=== PATIENT | female | born 1990 | race Caucasian/White ===

== ENCOUNTER 2021-09-04 17:57 | Emergency (ER) | payer OTHER ==
--- OUTSIDE RECORDS SUMMARY | 2021-09-04 18:00 | XMS REPORT | Clinical Summary ---
:1990 Author Organization [facility] MD [facility] Address [address] [place] [address] Care Team Providers Name Role Phone Unavailable Primary Care Provider Unavailable Allergies Not on File Medications Not on file Active Problems Not on file Social History Tobacco Use Types Packs/Day Years Used Date Never Assessed Sex Assigned at Date Recorded Not on file Job Start Date Occupation Industry Not on file Not on file Not on file Last Filed Vital Signs Not on file Plan of Treatment Not on file Results Not on fileafter 09/04/2020 Insurance Payer Benefit Plan / Subscriber ID Effective Phone Address T ype Group Dates [facility] [id number] 2021-[address]y [address] Medicaid HEALTHCARE MEDICAID [place], [place] [employer] [place] [phone] 1980 [address] ([address]) [place] [address] Mallory Gomez Personal/Family Self [birth year] [address] (Home) [place] [address]
--- OUTSIDE RECORDS SUMMARY | 2021-09-04 18:05 | XMS REPORT | Continuity of Care Document ---
:1990 [facility] Organization [facility] t Address [address] [place] [address] Care Team Providers Name Role Phone Rod Dumont MD Primary Care Physician RAMESH FELIX Attending Clinician Unavailable Alexys FELIX Attending Clinician Unavailable Doctor Unassigned, Name Attending Clinician Unavailable CAITLIN Attending Clinician Unavailable Caitlin LEWIS Attending Clinician Tyrese LEWIS Attending Clinician BEKA Attending Clinician Unavailable BEHZAD Attending Clinician Unavailable SUZY JAMIL Attending Clinician Unavailable Ethan JACOBO Attending Clinician Unavailable Curly GONZALEZ Attending Clinician Unavailable Beka LEWIS Attending Clinician An LEWIS, Madeline Attending Clinician ZULEIKA BLANKENSHIP Attending Clinician Unavailable Lorena HUDSON Attending Clinician Unavailable JOHN Attending Clinician Unavailable Alexys Felix MD Attending Clinician DERICK COREA Attending Clinician Unavailable London Chung Attending Clinician Unavailable HE Attending Clinician Unavailable ERNA Attending Clinician Unavailable KALYN Attending Clinician Unavailable RAMESH FELIX Admitting Clinician Unavailable Alexys Sanchez Admitting Clinician Unavailable SUZY JAMIL Admitting Clinician Unavailable Payers Payer Name Policy Type Policy Number Effective Date Expiration Date Curly willams [facility] [id number] 2021 PLAN 00:00:00 MEDICAID - D [id number] 2010 2010 MEDICAID MGD CARE 00:00:00 00:00:00 PRIME [id number] 2012 2019 HMO/POS 00:00:00 00:00:00 BCBS OS [id number] 2013 2019 POS/PPO/EPO 00:00:00 00:00:00 [facility] PLAN [id number] [facility] [id number] 2010 2011 HEALTH CHOICE 00:00:00 00:00:00 ZZZTRICARE - [id number] 2012 2019 PRIME 00:00:00 00:00:00 OUT OF STATE BCBS [id number] - PPO - [facility] [id number] 2012 2019 REGION 00:00:00 00:00:00 Problems Condition Condition Condition Status Onset Resolution Last Treating Co mments Source Name Details Category Date Date Treatment Clinician Date Numbness Numbness Disease Active 2020-05 Unive rs and and 2-29 ity of tingling tingling 00:00: [place] in left in left 00 Medical hand hand Branch Type 1 Type 1 Disease Active [facility] diabetes diabetes 5-12 ity of mellitus mellitus 00:00: [place] with with 00 Medical hypoglycem hypoglycem Br anch ia and ia and without without coma coma Attention Attention Disease Active Uni vers deficit deficit 8-14 it[place] hyperactiv [place] Medical disorder disorder Branch DKA DKA Disease Active [facility] (diabetic (diabetic 8-05 ity of ketoacidos [place]etoacidos [place] es[place] 00 Medical Branch Urinary Urinary Disease Active Univers tract tract 6-23 [place]y of infection[place] site not 00 Medica l specified specified Bran ch Bipolar Bipolar Disease Active [facility] disorder disorder 09-20 Colleg e 00:00: of 00 Medicin e Mental Mental Disease Active Overview: [facility] disorders disorders 09-20 [facility] ol[facility] of mother, of mother, 00:00: g of this of antepartum antepartum 00 note Me dicin might be e different from the original. bipolar disorder Diabetes Diabetes Disease Active [facility] r mellitus, mellitus, 09-17 [facility] ege antepartum antepartum 00:00: of (648.03) (648.03) 00 Medici n e Encounter Encounter Disease Active [facility] 09-17 College long-term long-term 00:00: of (current) (current) 00 Medi margaret use of use of e insulin insulin (HCCode) (HCCode) Painful Painful Disease Active [facility] bladder bladder 09-17 [place] spasm spasm 00:00: of 00 Medicin e Crush Crush Problem Active [facility] injury injury ity of knee, knee, [place] right, right, Physici subsequent subsequent an s encounter encounter Contusion Contusion Problem Active Uni vers of right of right ity of knee, knee, [place] subsequent subsequent Ph ysici encounter encounter ans Right Right Problem Active [facility] 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[place] palsy palsy Physici ans Allergies, Adverse Reactions, Alerts Allergy Allergy Status Severity Reaction(s) Onset Inactive Treating Comm ents Source Name Type Date Date Clinician Insulin Propensi Active Other (See Adverse Ba ylor Lispro ty to Comments) 09-26 reaction Colle ge adverse 00:00: of reaction 00 Medicin s to e drug INSULIN DRUG Active High Other-Cmnt Unive rs LISPRO INGREDI 5-12 ity of 00:00: [place] 00 Medical Branch INSULIN Allergy Active High Other 2020-[address] [facility] [address] [facility]ISPRO 5-12 [facility] Tramadol Propensi Active Hives 2020-0 [facility] ty to 1-12 [place] adverse 00:00: of reaction 00 Medicin s to e drug TRAMADOL DRUG Active High Hives 2020-0 Univers INGREDI 1-12 ity of 00:00: [place] 00 Medical Branch CLINDAMY DRUG Active Med Hives 2020-0 Univers MARGARET INGREDI 1-12 ity of 00:00: [place] 00 Medical Branch Clindamy Drug Active Hives 2020-0 [facility] margaret Allergy 1-12 ity of 00:00: [place] 00 Medical Branch Tramadol Drug Active Hives 2020-0 Univers Allergy 1-12 ity of 00:00: [place] 00 Medical Branch Clindamy Propensi Active Hives 2019- [facility] margaret ty to 2-17 [place] adverse 00:00: of reaction 00 Medicin s to e drug CLINDAMY Allergy Active Med Hives 2019- [facility] MARGARET 2-17 [facility] PENICILL DRUG Active Unknown-Cmnt 2019- Un charmaine IN INGREDI 0-04 ity of 00:00: [place] 00 Medical Branch Penicill Propensi Active Unknown - 2019- Uni vers in ty to See comments 0-04 ity of adverse 00:00: [place] reaction 00 Medical s Branch Ketorola Propensi Active Hives 2020-0 [facility] c-Bupiv- ty to 4-17 [place] Ketamine adverse 00:00: of reaction 00 Medicin s to e drug Toradol Propensi Active 2020-0 [facility] ty to 4-17 [place] adverse 00:00: of reaction 00 Medicin s to e drug Penicill Propensi Active Other (See 2019-0 Ba ylor ins ty to Comments) 4-17 [place] adverse 00:00: of reaction 00 Medicin s to e drug Ketorola Drug Active Hives 2020-0 Univers c Allergy 4-17 ity of 00:00: [place] 00 Medical Branch KETOROLA DRUG Active Med Hives 2020-0 Univers C INGREDI 4-17 ity of 00:00: [place] 00 Medical Branch PENICILL Allergy Active Med Hives 2020-0 [facility] INS 4-17 00:00: 00 KETOROLA Allergy Active Med Hives 2020-0 [facility] C 4-17 00:00: 00 Penicill DA Active U 2020-0 [facility] ins 2-08 Clear 00:00: [place] 00 [facility] clindamy DA Active SV 2020-0 [facility] margaret 2-08 Clear 00:00: [place] 00 [facility] tramadol DA Active RI 2020-0 [facility] 2-08 Clear 00:00: [place] 00 [facility] ondanset DA Active RI 2020-0 [facility] dilia 2-08 Clear 00:00: [place] 00 [facility] Penicill DA Active U SWELLING 2020-0 [facility] ins 2-08 Clear 00:00: [place] 00 [facility] clindamy DA Active SV VOMIT, 2020-0 [facility] margaret HIVES, SOB 2-08 Clear 00:00: [place] 00 [facility] tramadol DA Active RI HIVE 2020-0 [facility] 2-08 Clear 00:00: [place] 00 [facility] ondanset DA Active RI UNKNOWN 2020-0 [facility] dilia 2-08 Clear 00:00: [place] 00 [facility] Penicill DA Active U 2019-0 [facility] ins 5- [place] 00[facility]: e [facility] clindamy DA Active SV 2019-0 [facility] margaret 5- [place] 00:[facility]: e [facility] tramadol DA Active RI 2019-0 [facility] 5-01 [place] 00:[facility]: e 00 [facility] ondanset DA Active RI 2019-0 [facility] dilia 5-01 [place] 00:00: e 00 [facility] Penicill DA Active U SWELLING 2019-0 [facility] ins 5- [place] 00:00: e 00 [facility] clindamy DA Active SV VOMIT, 2019-0 [facility] margaret HIVES, SOB 5- [place] 00:[facility]: e 00 [facility] tramadol DA Active RI HIVE 2019-0 [facility] 5-01 [place] 00:[facility]: e 00 [facility] ondanset DA Active RI UNKNOWN 2019-0 [facility] dilia 5-01 [place] 00:00: e 00 [facility] clindamy DA Active SV 2019-0 [facility] margaret 2-26 [place] 00:00: d 00 [facility] Center tramadol DA Active RI 2019-0 [facility] 2-25 [place] 00:00: d 00 [facility] Penicill DA Active U 2019-0 [facility] ins 2-24 [place] 00:[facility]: d 00 [facility] [place] Propensi Active Itching 2014-0 [place] [facility] ty to 02-05 [place] adverse 00:00: of reaction 00 Medicin s to e drug Benzonat Drug Active Itching 2014-0 Univers ate Allergy 02-05 ity of 00:00: [place] 00 Medical Branch BENZONAT DRUG Active ITCHING 2014-0 Univers ATE INGREDI 02-05 ity of 00:00: [place] 00 Medical Branch BENZONAT Allergy Active Itching 2014-[address] [facility] [address] ATE 02-05 [facility] 00:[facility]: Medical 00 [place] ondanset DA Active RI 2013- [facility] dilia - [place] 00:00: d 00 [facility] ONDANSET DRUG Active Swelling 2013-0 Univer s DILIA HCL 6-11 ity of (PF) 00:00: [place] 00 Medical Branch Ondanset Propensi Active Swelling 2013-0 Univ ers dilia Hcl ty to 6-11 ity of (Pf) adverse 00:00: [place] reaction 00 [facility] Branch Ondanset Propensi Active Swelling 2013-0 [facility] or dilia ty to 5-07 [place] adverse 00:00: of reaction 00 Medicin s to e drug ONDANSET Allergy Active High Anaphylaxis 2013-0 [facility] DILIA HCL 5-07 (PF) 00:00: 00 Social History Social Habit Start Date Stop Date Quantity Comments Source History [facility] ge Alcohol Frequency of FoodyDirect cine History [facility] ge Alcohol Std of Medicine Drinks History [facility] Alcohol Binge of Medicine Exposure to Not sure [facility] e SARS-CoV-2 of Medicine (event) Alcohol intake 2021-02-18 2021-02-18 Current drinker of [facility] 00:00:00 00:00:00 alcohol (finding) of My[facility] Alcohol Comment 2020-07-06 2020-07-06 occassionally [facility] 00:00:00 00:00:00 of Medicine History [facility] 2020-02-19 2020-02-19 5 University o f Financial 00:00:00 00:00:00 [facility] Cigarettes smoked 2010-09-17 2010-09-17 [facility] current (pack per 00:00:00 00:00:00 of [facility] day) - Reported Cigarette 2010-09-17 2010-09-17 [facility] pack-years 00:00:00 00:00:00 of Medicine Tobacco use and 2010-09-17 2010-09-17 User of smokeless Ba or [place] exposure 00:00:00 00:00:00 tobacco of Medicine History of 2010-02-04 Cigarette Smoker [facility] tobacco use 00:00:00 of Medicine Sex Ass[birth year] At [birth year] MD [place] on 00:00:00 00:00:00 Smoking Status Start Date Stop Date Source Current some day 2021-01-19 00:00:00 [facility] smoker Medical Branch Ex-smoker 2010-09-17 00:00:00 2010-09-17 00:00:00 [facility] of Medicine Medications Ordered Filled Start Stop Current Ordering Indication Dosage Frequency Signature Comments Components Source Medication Medication Date Date Medication? Clinician (SIG) Name Name insulin Yes Inject [facility]obardo aspart 2-17 into the College (NOVOLOG) 16:52: skin 3 of 100 UNIT/ML 28 times Medicin injection daily e (before meals). Insulin Yes Inject Leobardo Disposable 2-17 into the [facility] ge Pump 16:52: skin. of (OMNIPOD 5 28 Medicin PACK) MISC e cyclobenzap Yes 10mg Take 1 [facility] or rine 2-17 Tablet by [place] (FLEXERIL) 00:00: mouth 3 of 10 MG 00 times Medicin tablet daily as e needed for Muscle spasms. acetaminoph Yes [id number] 1{tbl} Take 1 [facility] en-codeine 2-17 Tablet by [place] ndiaye (TYLENOL 00:00: mouth of #3) 300-30 00 every 4 Medici n MG per hours as e tablet needed. gabapentin Yes 300mg Take 1 [facility] or (NEURONTIN) 2-17 capsule by Co vanessa 300 MG 00:00: mouth 3 of capsule 00 times Medicin daily as e needed for Pain. insulin Yes [id number] USE WITH Un [place] aspart 2-06 INSULIN ity of RAPID 00:00: PUMP. [facility] (NOVOLOG 00 DAILY DOSE Medic al U-100 OF 80 Branch INSULIN UNITS ASPART) 100 unit/mL injection insulin Yes [id number] USE WITH Un [place] aspart 2-06 INSULIN ity of RAPID 00:00: PUMP. NATALIE [place] (NOVOLOG 00 DAILY DOSE Medic al U-100 OF 80 Branch INSULIN UNITS ASPART) 100 unit/mL injection insulin Yes [id number] USE WITH Un [place] aspart 2-06 INSULIN ity of RAPID 00:00: PUMP. MAX [place] (NOVOLOG 00 DAILY DOSE Medic al U-100 OF 80 Branch INSULIN UNITS ASPART) 100 unit/mL injection insulin Yes [id number] USE WITH Un [place] aspart 2-06 INSULIN ity of RAPID 00:00: PUMP. MAX [place] (NOVOLOG 00 DAILY DOSE Medic al U-100 OF 80 Branch INSULIN UNITS ASPART) 100 unit/mL injection CONTOUR Yes [facility] NEXT TEST 2-03 [place] 00:00: of 00 Medicin e BLISOVI FE Yes [facility] 06/06 [place] MG-MCG per 00:00: of tablet 00 Medicin e cyclobenzap 2021- No 10mg Take 1 [place] yareli rine 06-07 Tablet by [place] (FLEXERIL) 00:00: 00:00 mouth 3 of 10 MG 00 :00 times Medicin tablet daily as e needed for Muscle spasms. gabapentin 2021- No 300mg Take 1 [place] yareli (NEURONTIN) 06-07 capsule by Felecia soliz 300 MG 00:00: 00:00 mouth 3 of capsule 00 :00 times Medicin daily as e needed for Pain. acetaminoph 2021- No [id number] 1{tbl} Take 1 [facility] en-codeine 06-07 Tablet by Col conte (TYLENOL 00:00: 00:00 mouth of #3) 300-30 00 :00 every 4 Medici n MG per hours as e tablet needed. lamotrigine Yes 100mg Take 100 B ayyareli (LAMICTAL) 1-13 mg by [place] 100 MG 00:00: mouth. of tablet 00 Medicin e Insulin 2020-05 Yes inject Univers Pump 2-29 under the ity of Cartridge 13:09: skin. [address] Branch Insulin 2020-05 Yes inject Univers Pump 2-29 under the ity of Cartridge 13:09: skin. [address] Insulin 2021-1 Yes inject Univers Pump 2-29 under the ity of Cartridge 13:09: skin. [address] Insulin 2020-05 Yes inject Univers Pump 2-29 under the ity of Cartridge 13:09: skin. [address] Insulin 2020-05 Yes inject Univers Pump 2-29 under the ity of Cartridge 13:09: skin. [address] Insulin 2020-05 Yes inject Univers Pump 2-29 under the ity of Cartridge 13:09: skin. [address] albuterol 2020-05 Yes [id number] 2{puff} Inhale 2 Univers 90 1-08 Puffs ity of mcg/actuati 00:00: every 4 [place] as on inhaler 00 (four) Medical hours as Branch needed for Wheezing or Shortness of Breath. albuterol 2020-05 Yes [id number] 2{puff} Inhale 2 Univers 90 1-08 Puffs ity of mcg/actuati 00:00: every 4 [place] as on inhaler 00 (four) Medical hours as Branch needed for Wheezing or Shortness of Breath. albuterol 2020-05 Yes [id number] 2{puff} Inhale 2 Univers 90 1-08 Puffs ity of mcg/actuati 00:00: every 4 [place] as on inhaler 00 (four) Medical hours as Branch needed for Wheezing or Shortness of Breath. albuterol 2020-05 Yes [id number] 2{puff} Inhale 2 Univers 90 1-08 Puffs ity of mcg/actuati 00:00: every 4 [place] as on inhaler 00 (four) Medical hours as Branch needed for Wheezing or Shortness of Breath. albuterol 2020-05 Yes [id number] 2{puff} Inhale 2 Univers 90 1-08 Puffs ity of mcg/actuati 00:00: every 4 [place] as on inhaler 00 (four) Medical hours as Branch needed for Wheezing or Shortness of Breath. albuterol 2020-05 Yes [id number] 2{puff} Inhale 2 Univers 90 1-08 Puffs ity of mcg/actuati 00:00: every 4 [place] as on inhaler 00 (four) Medical hours as Branch needed for Wheezing or Shortness of Breath. albuterol 2020-05 Yes 3mL 3 mL. Univers 0.63 mg/3 1-02 ity of mL 11:06: [place] nebulizer 14 Medical solution Branch albuterol 2020-05 Yes 3mL 3 mL. Univers 0.63 mg/3 1-02 ity of mL 11:06: [place] nebulizer Medical solution Branch albuterol 2020-05 Yes 3mL 3 mL. Univers 0.63 mg/3 1-02 ity of mL 11:06: [place] nebulizer Medical solution Branch albuterol 2020-05 Yes 3mL 3 mL. Univers 0.63 mg/3 1-02 ity of mL 11:06: [place] nebulizer Medical solution Branch albuterol 2020-05 Yes 3mL 3 mL. Univers 0.63 mg/3 1-02 ity of mL 11:06: [place] nebulizer Medical solution Branch albuterol 2020-05 Yes 3mL 3 mL. Univers 0.63 mg/3 1-02 ity of mL 11:06: [place] nebulizer Medical solution Branch nicotine 2020-05 Yes [id number] 2mg Apply 1 Un [place] polacrilex 1-02 Each as ity of 2 mg gum 00:00: directed [place] 00 every 2 Medical (two) Branch hours as needed (smoking urge). LOESTRIN FE 2020-05 Yes [id number] 1{tbl} Take 1 Univers 1 mg-20 mcg 1-02 tablet by ity of (21)/75 mg 00:00: mouth [place] (7) tablet 00 daily. Medical Branch nicotine 2020-05 Yes [id number] 2mg Apply 1 Un [place] polacrilex 1-02 Each as ity of 2 mg gum 00:00: directed [place] 00 every 2 Medical (two) Branch hours as needed (smoking urge). LOESTRIN FE 2020-05 Yes [id number] 1{tbl} Take 1 Univers 1 mg-20 mcg 1-02 tablet by ity of (21)/75 mg 00:00: mouth [place] (7) tablet 00 daily. Medical Branch nicotine 2020-05 Yes [id number] 2mg Apply 1 Un [place] polacrilex 1-02 Each as ity of 2 mg gum 00:00: directed [place] 00 every 2 Medical (two) Branch hours as needed (smoking urge). LOESTRIN FE 2020-05 Yes [id number] 1{tbl} Take 1 Univers 1 mg-20 mcg 1-02 tablet by ity of (21)/75 mg 00:00: mouth [place] (7) tablet 00 daily. Medical Branch nicotine 2020-05 Yes [id number] 2mg Apply 1 Un [place] polacrilex 1-02 Each as ity of 2 mg gum 00:00: directed [place] 00 every 2 Medical (two) Branch hours as needed (smoking urge). LOESTRIN FE 2020-05 Yes [id number] 1{tbl} Take 1 Univers 1 mg-20 mcg 1-02 tablet by ity of (21)/75 mg 00:00: mouth [place] (7) tablet 00 daily. Medical Branch nicotine 2020-05 Yes [id number] 2mg Apply 1 [facility] [place] polacrilex 1-02 Each as ity of 2 mg gum 00:00: directed [place] 00 every 2 Medical (two) Branch hours as needed (smoking urge). LOESTRIN FE 2020-05 Yes [id number] 1{tbl} Take 1 Univers 1 mg-20 mcg 1-02 tablet by ity of (21)/75 mg 00:00: mouth [place] (7) tablet 00 daily. Medical Branch nicotine 2020-05 Yes [id number] 2mg Apply 1 [facility] [place] polacrilex 1-02 Each as ity of 2 mg gum 00:00: directed [place] 00 every 2 Medical (two) Branch hours as needed (smoking urge). LOESTRIN FE 2020-05 Yes [id number] 1{tbl} Take 1 Univers 1 mg-20 mcg 1-02 tablet by ity of (21)/75 mg 00:00: mouth [place] (7) tablet 00 daily. Medical Branch insulin 2020-05 Yes Inject [facility] aspart 0-04 into the [facility] (NOVOLOG) 08:59: skin 3 of 100 UNIT/ML 23 times Medicin injection daily e (before meals). insulin 2020-05 Yes Inject [facility] aspart 0-04 into the [place] (NOVOLOG) 08:59: skin 3 of 100 UNIT/ML 23 times Medicin injection daily e (before meals). omeprazole 2020-05 Yes [id number] 40mg Take 1 [facility] (PRILOSEC) 0-04 capsule by Col lege 40 MG 00:00: mouth of capsule 00 every Medicin morning e (before breakfast) . promethazin 2020-05 Yes [id number] 25mg Take 1 [facility] e 0-04 Tablet by [place] (PHENERGAN) 00:00: mouth of 25 MG 00 every 6 Medicin tablet hours as e needed for Nausea. omeprazole 2020-05 Yes [id number] 40mg Take 1 [facility] (PRILOSEC) 0-04 capsule by Col lege 40 MG 00:00: mouth of capsule 00 every Medicin morning e (before breakfast) . promethazin 2020-05 Yes [id number] 25mg Take 1 [facility] e 0-04 Tablet by [place] (PHENERGAN) 00:00: mouth of 25 MG 00 every 6 Medicin tablet hours as e needed for Nausea. omeprazole 2020-05 Yes [id number] 40mg Take 1 [facility] (PRILOSEC) 0-04 capsule by Col lege 40 MG 00:00: mouth of capsule 00 every Medicin morning e (before breakfast) . promethazin 2020-05 Yes [id number] 25mg Take 1 [facility] e 0-04 Tablet by [place] (PHENERGAN) 00:00: mouth of 25 MG 00 every 6 Medicin tablet hours as e needed for Nausea. omeprazole 2020-05 Yes 40mg Take 40 mg U nivers 40 mg 0-04 by mouth. ity of capsule 00:00: [address] omeprazole 2020-05 Yes 40mg Take 40 mg U nivers 40 mg 0-04 by mouth. ity of capsule 00:00: [place] [facility] omeprazole 2020-05 Yes 40mg Take 40 mg U nivers 40 mg 0-04 by mouth. ity of capsule 00:00: [address] omeprazole 2020-05 Yes 40mg Take 40 mg U nivers 40 mg 0-04 by mouth. ity of capsule 00:00: [place] [facility] omeprazole 2020-05 Yes 40mg Take 40 mg U nivers 40 mg 0-04 by mouth. ity of capsule 00:00: [address] omeprazole 2020-05 Yes 40mg Take 40 mg U nivers 40 mg 0-04 by mouth. ity of capsule 00:00: [address] blood sugar 0 Yes [id number] Use as Univers diagnostic 5-12 directed ity o f (CONTOUR 00:00: [place] NEXT TEST 00 Medical STRIPS) Branch strip Blood-Gluco 2020-0 Yes [id number] Use as Univers se Meter 5-12 directed ity of (CONTOUR 00:00: [place] NEXT METER) 00 Medical Misc Branch insulin 2020-0 Yes [id number] Use with Un [place] aspart 5-12 insulin ity of RAPID 00:00: pump. Max [place] (NOVOLOG 00 daily dose Medic al U-100 of 80 Branch INSULIN units ASPART) 100 unit/mL injection blood sugar 2020-0 Yes [id number] Use as Univers diagnostic 5-12 directed ity o f (CONTOUR 00:00: [place] NEXT TEST 00 Medical STRIPS) Branch strip Blood-Gluco 2020-0 Yes [id number] Use as Univers se Meter 5-12 directed ity of (CONTOUR 00:00: [place] NEXT METER) 00 Medical Mis Branch insulin 2020-0 Yes [id number] Use with Un [place] aspart 5-12 insulin ity of RAPID 00:00: pump. Max [place] (NOVOLOG 00 daily dose Medic al U-100 of 80 Branch INSULIN units ASPART) 100 unit/mL injection blood sugar 2020-0 Yes [id number] Use as Univers diagnostic 5-12 directed ity o f (CONTOUR 00:00: [place] NEXT TEST 00 Medical STRIPS) Branch strip Blood-Gluco 2020-0 Yes [id number] Use as Univers se Meter 5-12 directed ity of (CONTOUR 00:00: [place] NEXT METER) 00 Medical Mis Branch blood sugar 2020-0 Yes [id number] Use as Univers diagnostic 5-12 directed ity o f (CONTOUR 00:00: [place] NEXT TEST 00 Medical STRIPS) Branch strip Blood-Gluco 2020-0 Yes [id number] Use as Univers se Meter 5-12 directed ity of (CONTOUR 00:00: [place] NEXT METER) 00 Medical Mis Branch blood sugar 2020-0 Yes [id number] Use as Univers diagnostic 5-12 directed ity o f (CONTOUR 00:00: [place] NEXT TEST 00 Medical STRIPS) Branch strip Blood-Gluco 2020-0 Yes [id number] Use as Univers se Meter 5-12 directed ity of (CONTOUR 00:00: [place] NEXT METER) 00 Medical Misc Branch blood sugar 2020-0 Yes [id number] Use as Univers diagnostic 5-12 directed ity o f (CONTOUR 00:00: [place] NEXT TEST 00 Medical STRIPS) Branch strip Blood-Gluco Yes [id number] Use as Univers se Meter -12 directed ity of (CONTOUR 00:00: [place] NEXT METER) 00 Medical Misc Branch insulin 2021- No [id number] Use with U nivers aspart 12 02-06 insulin ity of RAPID 00:00: 00:00 pump. Max [place] (NOVOLOG 00 :00 daily dose Medic al U-100 of 80 Branch INSULIN units ASPART) 100 unit/mL injection proMETHazin Yes [id number] 25mg Take 1 Univers e 25 mg 4-11 tablet by ity of tablet 00:00: mouth [place] 00 every 6 Medical (six) Branch hours as needed for Nausea and Vomiting (N/V). proMETHazin Yes [id number] 25mg Take 1 Univers e 25 mg 4-11 tablet by ity of tablet 00:00: mouth [place] 00 every 6 Medical (six) Branch hours as needed for Nausea and Vomiting (N/V). proMETHazin Yes [id number] 25mg Take 1 Univers e 25 mg 4-11 tablet by ity of tablet 00:00: mouth [place] 00 every 6 Medical (six) Branch hours as needed for Nausea and Vomiting (N/V). proMETHazin Yes [id number] 25mg Take 1 Univers e 25 mg 4-11 tablet by ity of tablet 00:00: mouth [place] 00 every 6 Medical (six) Branch hours as needed for Nausea and Vomiting (N/V). proMETHazin Yes [id number] 25mg Take 1 Univers e 25 mg 4-11 tablet by ity of tablet 00:00: mouth [place] 00 every 6 Medical (six) Branch hours as needed for Nausea and Vomiting (N/V). proMETHazin Yes [id number] 25mg Take 1 Univers e 25 mg 4-11 tablet by ity of tablet 00:00: mouth [place] 00 every 6 Medical (six) Branch hours as needed for Nausea and Vomiting (N/V). acetaminoph 2021- No 650mg Take 650 [facility] en 325 mg 3-22 03-18 mg by College tablet 00:00: 04:59 mouth. of 00 :00 Medicin e tramadol 2020- No [id number] 1{tbl} Take 1 [facility] (ULTRAM) 50 3-22 10-04 Tablet by Co llege MG tablet 00:00: 00:00 mouth of 00 :00 every 8 Medicin hours as e needed for Pain. tramadol 2020- No [id number] 1{tbl} Take 1 [facility] (ULTRAM) 50 3-22 10-04 Tablet by Co llege MG tablet 00:00: 00:00 mouth of 00 :00 every 8 Medicin hours as e needed for Pain. polyethylen 2020- No [id number] 1{packe Take 1 [facility] e glycol 1-14 01-16 t} Packet by Sathish silva (GLYCOLAX) 00:00: 05:59 mouth as of 17 g packet 00 :00 needed for Me dicin up to 1 e day. acetaminoph Yes [id number] 1{tbl} Take 1 Un [place] en-codeine 1-12 tablet by ity of 300-30 mg 00:00: mouth [place] tablet 00 every 4 Medical (four) Branch hours as needed for Pain (scale 7-10). Indication s: acute pain acetaminoph Yes [id number] 1{tbl} Take 1 Un [place] en-codeine 1-12 tablet by ity of 300-30 mg 00:00: mouth [place] tablet 00 every 4 Medical (four) Branch hours as needed for Pain (scale 7-10). Indication s: acute pain acetaminoph Yes [id number] 1{tbl} Take 1 Un [place] en-codeine 1-12 tablet by ity of 300-30 mg 00:00: mouth [place] tablet 00 every 4 Medical (four) Branch hours as needed for Pain (scale 7-10). Indication s: acute pain acetaminoph Yes [id number] 1{tbl} Take 1 Un [place] en-codeine 1-12 tablet by ity of 300-30 mg 00:00: mouth [place] tablet 00 every 4 Medical (four) Branch hours as needed for Pain (scale 7-10). Indication s: acute pain acetaminoph Yes [id number] 1{tbl} Take 1 Un [place] en-codeine 1-12 tablet by ity of 300-30 mg 00:00: mouth [place] tablet 00 every 4 Medical (four) Branch hours as needed for Pain (scale 7-10). Indication s: acute pain acetaminoph 0 Yes [id number] 1{tbl} Take 1 Un [place] en-codeine 1-12 tablet by ity of 300-30 mg 00:00: mouth [place] tablet 00 every 4 Medical (four) Branch hours as needed for Pain (scale 7-10). Indication s: acute pain Scopolamine 0 Yes [id number] 1{patch Place 1 [facility] 1 MG/3DAYS 1-08 } Patch onto Col [facility]ge [id number] 00:00: the skin of 00 every 3 Medicin days. e cyclobenzap 0 Yes [id number] 5mg Take 1 [facility] rine 1-08 Tablet by [place] (FLEXERIL) 00:00: mouth 3 of 5 MG tablet 00 times Medicin daily as e needed. oxycodone Yes 1{tbl} Take 1-2 [facility] (ROXICODONE 1-08 Tablets by [facility] ) 5 MG 00:00: mouth of immediate 00 every 6 Medicin release hours as e tablet needed for Pain. gabapentin 0 Yes gabapentin U nivers 300 mg 1-07 300 mg ity of capsule 00:00: capsule 00 Take 1 Medical capsule 3 Branch times a day by oral route. gabapentin 0 Yes gabapentin U nivers 300 mg 1-07 300 mg ity of capsule 00:00: capsule 00 Take 1 Medical capsule 3 Branch times a day by oral route. gabapentin 0 Yes gabapentin U nivers 300 mg 1-07 300 mg ity of capsule 00:00: capsule Take 1 Medical capsule 3 Branch times a day by oral route. gabapentin 2020-0 Yes gabapentin U nivers 300 mg 1-07 300 mg ity of capsule 00:00: capsule 00 Take 1 Medical capsule 3 Branch times a day by oral route. gabapentin 2020-0 Yes gabapentin U nivers 300 mg 1-07 300 mg ity of capsule 00:00: capsule 00 Take 1 Medical capsule 3 Branch times a day by oral route. gabapentin 2020-0 Yes gabapentin U nivers 300 mg 1-07 300 mg ity of capsule 00:00: capsule Take 1 Medical capsule 3 Branch times a day by oral route. zolpidem 2019-05 Yes 10mg Take 10 mg [place] [facility] (AMBIEN) 10 2- by mouth. Col [facility] MG tablet 21:07: of 33 Medicin e LAMOTRIGINE 2019- Yes Take by regan OR 2- mouth. [place] 21:07: of 33 Medicin e zolpidem 2019-05 Yes 10mg Take 10 mg [place] [facility] (AMBIEN) 10 2- by mouth. Col [facility] MG tablet 21:07: of 33 Medicin e LAMOTRIGINE 2019-05 Yes Take by Farooq spears OR 2- mouth. [place] 21:07: of 33 Medicin e promethazin 2019-[address] [facility] 06-16 [place] (PHENERGAN) 00:00: of 12.5 MG 00 Medicin tablet e promethazin 2019- Yes [facility] 06-16 [facility] (PHENERGAN) 00:00: of 12.5 MG 00 Medicin tablet e sucralfate 2019- Yes TAKE 1 [facility] (CARAFATE) 1-02 TABLET BY [facility] ege 1 g tablet 00:00: MOUTH 4 of 00 TIMES A Medicin DAY e sucralfate 2019-05 Yes TAKE 1 [facility] (CARAFATE) 1-02 TABLET BY [facility] e[facility] 1 g tablet 00:00: MOUTH 4 of 00 TIMES A Medicin DAY e pantoprazol 2019-05 Yes TAKE 1 [facility] e 0-26 TABLET BY [place] (PROTONIX) 00:00: MOUTH of 40 MG 00 EVERY DAY Medicin tablet 30 MINUTES e BEFORE BREAKFAST OR FIRST MEAL SUPREP 2020-1 Yes See Admin [facility] BOWEL PREP 0-26 Instructio Col [facility]ge KIT 00:00: ns. of 17.5-3.13-1 00 Medicin .6 GM/177ML e SOLN pantoprazol 2020-1 Yes TAKE 1 [facility] e 0-26 TABLET BY [place] (PROTONIX) 00:00: MOUTH of 40 MG 00 EVERY DAY Medicin tablet 30 MINUTES e BEFORE BREAKFAST OR FIRST MEAL SUPREP 2020-1 Yes See Admin Leobardo BOWEL PREP 0-26 Instructio [facility] KIT 00:00: ns. of 17.5-3.13-1 00 Medicin .6 GM/177ML e SOLN promethazin 2020-0 Yes 25mg Take 25 mg [facility] e 7-22 by mouth. [place] (PHENERGAN) 00:00: of 25 MG 00 Medicin tablet e promethazin Yes 25mg Take 25 mg [facility] e 7-22 by mouth. [place] (PHENERGAN) 00:00: of 25 MG 00 Medicin tablet e Acetaminoph Acetaminoph Yes JESSICA TAKE 1 Univers en-Codeine en-Codeine 5-16 MUSCAT TABLET ity of #3 300-30 #3 300-30 00:00: M.D. EVERY 4 TO [place] MG Oral MG Oral 00 6 HOURS Phy sici Tablet Tablet NEEDED FOR ans PAIN. Meloxicam Meloxicam Yes CASSI Ruelas QD TAKE 1 Univers 15 MG Oral 15 MG Oral 6-19 OZOUDE TABLET ity of Tablet Tablet 00:00: M.D. DAILY. [place] 00 Physici ans traMADol traMADol Yes CASSI 1 Q6H TAKE 1 U nivers HCl - 50 MG HCl - 50 MG 6-19 OZOUDE TABLET ity of Oral Tablet Oral Tablet 00:00: M.D. EVERY 6 [place] 00 HOURS Physici ans Butalbital- Yes Take by [facility] APAP-Caffei 5-03 mouth. Sathishg momo ne 14:35: of (FIORICET 37 Medicin OR) e Butalbital- Yes Take by [facility] APAP-Caffei 5-03 mouth. Colleg momo ne 14:35: of (FIORICET 37 Medicin OR) e NITROFURANT Yes Take by [facility] OIN OR 5-03 mouth. [place] 14:24: of 29 Medicin e insulin Yes Inject [facility] aspart 5-03 into the [facility] (NOVOLOG) 14:24: skin 3 of 100 UNIT/ML 29 times Medicin injection daily e (before meals). Yes Take by [facility] Vit-Fe 5-03 mouth. [place] Sulfate-FA 14:24: of ( 29 Medicin VITAMIN PO) e NITROFURANT Yes Take by [facility] OIN OR 5-03 mouth. [place] 14:24: of 29 Medicin e insulin Yes Inject [facility] aspart 5-03 into the [place] (NOVOLOG) 14:24: skin 3 of 100 UNIT/ML 29 times Medicin injection daily e (before meals). Yes Take by [facility] Vit-Fe 5-03 mouth. College Sulfate-FA 14:24: of ( 29 Medicin VITAMIN PO) e Immunizations Ordered Filled Immunization Date Status Comments Sourc e Immunization Name Name Rosendo COVID-19 Rosendo COVID-19 2021-01-10 Completed Vaccine Vaccine 00:00:00 TDAP 2020-08-31 Completed University 00:00:00 [facility] TDAP 2020-08-31 Completed University 00:00:00 [facility] TDAP 2020-08-31 Completed University 00:00:00 [facility] TDAP 2020-08-31 Completed University 00:00:00 [facility] TDAP 2020-08-31 Completed University 00:00:00 [facility] TDAP 2020-08-31 Completed University 00:00:00 [facility] Influenza Virus 2014-02-13 Completed Universit y of Vaccine (3+ yrs) 00:00:00 [facility] Influenza Virus 2014-02-13 Completed Universit y of Vaccine (3+ yrs) 00:00:00 [facility] Influenza Virus 2014-02-13 Completed Universit y of Vaccine (3+ yrs) 00:00:00 [facility] Influenza Virus 2014-02-13 Completed Universit y of Vaccine (3+ yrs) 00:00:00 [facility] Influenza Virus 2014-02-13 Completed Universit y of Vaccine (3+ yrs) 00:00:00 [facility] Influenza Virus 2014-02-13 Completed Universit y of Vaccine (3+ yrs) 00:00:00 [facility] Influenza Virus 2013-06-08 Completed Universit y of Vaccine (3+ yrs) 00:00:00 [facility] Influenza Virus 2013-06-08 Completed Universit y of Vaccine (3+ yrs) 00:00:00 [facility] Influenza Virus 2013-06-08 Completed Universit y of Vaccine (3+ yrs) 00:00:00 [facility] Influenza Virus 2013-06-08 Completed Universit y of Vaccine (3+ yrs) 00:00:00 [facility] Influenza Virus 2013-06-08 Completed Universit y of Vaccine (3+ yrs) 00:00:00 [facility] Influenza Virus 2013-06-08 Completed Universit y of Vaccine (3+ yrs) 00:00:00 [facility] dical Branch Vital Signs Vital Name Observation Time Observation Value Comments Source HEIGHT 2020-08-06 06:30:00 165.1 cm WEIGHT 2020-08-06 06:30:00 59.6 kg HEIGHT 2020-08-03 08:37:00 162.6 cm WEIGHT 2020-08-03 08:37:00 58.06 kg WEIGHT 2020-05-25 05:00:00 59.9 kg HEIGHT 2020-05-23 11:58:00 162.6 cm WEIGHT 2020-05-23 11:58:00 59.875 kg HEIGHT 2020-05-21 09:45:00 162.6 cm WEIGHT 2020-05-21 09:45:00 56.246 kg HEIGHT 2020-05-04 06:45:00 162.6 cm WEIGHT 2020-05-04 06:45:00 59.9 kg HEIGHT 2020-05-03 13:20:00 162.6 cm WEIGHT 2020-05-03 13:20:00 56.246 kg Systolic blood 2021-07-04 22:17:00 127 mm[Hg] [facility] of pressure Medicine Diastolic blood 2021-07-04 22:17:00 81 mm[Hg] [facility] of pressure Medicine Heart rate 2021-07-04 22:17:00 71 /min [facility] ollege of [facility] Body height 2021-07-04 22:17:00 162.6 cm [facility] Body weight 2021-07-04 22:17:00 63.248 kg [facility] BMI 2021-07-04 22:17:00 23.93 kg/m2 [facility] ollege of [facility] HEIGHT 2021-06-07 08:34:00 165.1 cm WEIGHT 2021-06-07 08:34:00 62.2 kg HEIGHT 2021-06-06 11:18:00 165.1 cm WEIGHT 2021-06-06 11:18:00 59.875 kg HEIGHT 2021-06-07 08:34:00 165.1 cm WEIGHT 2021-06-07 08:34:00 62.2 kg HEIGHT 2021-06-06 11:18:00 165.1 cm WEIGHT 2021-06-06 11:18:00 59.875 kg HEIGHT 2021-05-27 21:48:00 165.1 cm WEIGHT 2021-05-27 21:48:00 59.421 kg HEIGHT 2021-05-27 21:48:00 165.1 cm WEIGHT 2021-05-27 21:48:00 59.421 kg Systolic blood 2021-05-15 19:07:00 100 mm[Hg] Univer sity of pressure [facility] Diastolic blood 2021-05-15 19:07:00 63 mm[Hg] Unive rsity of pressure [facility] Heart rate 2021-05-15 19:07:00 72 /min Universi ty of [facility] Body temperature 2021-05-15 19:07:00 36.72 Marleen Univ ersity of [facility] Body height 2021-05-15 19:07:00 167.6 cm Universi ty of [facility] Body weight 2021-05-15 19:07:00 58.605 kg Universi ty of [facility] BMI 2021-05-15 19:07:00 20.85 kg/m2 Universi ty of [facility] Oxygen saturation in 2021-05-15 19:07:00 99 /min University Arterial blood by [facility] Pulse oximetry Branch Systolic blood 2021-02-18 14:00:00 107 mm[Hg] [facility] pressure Medicine Diastolic blood 2021-02-18 14:00:00 72 mm[Hg] [facility] Medicine Heart rate 2021-02-18 14:00:00 75 /min [facility] Respiratory rate 2021-02-18 14:00:00 18 /min [facility] Body height 2021-02-18 14:00:00 165.1 cm [facility] Body weight 2021-02-18 14:00:00 59.875 kg [facility] BMI 2021-02-18 14:00:00 21.97 kg/m2 [facility] of [facility] HEIGHT 2020-08-06 06:30:00 165.1 cm WEIGHT 2020-08-06 06:30:00 59.6 kg HEIGHT 2020-08-03 08:37:00 162.6 cm WEIGHT 2020-08-03 08:37:00 58.06 kg Systolic blood 2020-05-31 19:55:00 105 mm[Hg] [facility] pressure Medicine Diastolic blood 2020-05-31 19:55:00 67 mm[Hg] [facility] Medicine Heart rate 2020-05-31 19:55:00 93 /min [facility] ollege of Medicine Body temperature 2020-05-31 19:55:00 36.78 Marleen [facility] Body height 2020-05-31 19:55:00 162.6 cm [facility] C ollege of Medicine Body weight 2020-05-31 19:55:00 59.875 kg [facility] C ollege of Medicine BMI 2020-05-31 19:55:00 22.66 kg/m2 [facility] C ollege of Medicine Systolic blood 2020-05-31 19:55:00 105 mm[Hg] [facility] pressure Medicine Diastolic blood 2020-05-31 19:55:00 67 mm[Hg] [facility] Medicine Heart rate 2020-05-31 19:55:00 93 /min [facility] ollege of Medicine Body temperature 2020-05-31 19:55:00 36.78 Marleen [facility] Body height 2020-05-31 19:55:00 162.6 cm [facility] C ollege of Medicine Body weight 2020-05-31 19:55:00 59.875 kg [facility] ollege of Medicine BMI 2020-05-31 19:55:00 22.66 kg/m2 [facility] C ollege of Medicine WEIGHT 2020-05-25 05:00:00 59.9 kg HEIGHT 2020-05-23 11:58:00 162.6 cm WEIGHT 2020-05-23 11:58:00 59.875 kg HEIGHT 2020-05-21 09:45:00 162.6 cm WEIGHT 2020-05-21 09:45:00 56.246 kg HEIGHT 2020-05-04 06:45:00 162.6 cm WEIGHT 2020-05-04 06:45:00 59.9 kg HEIGHT 2020-05-03 13:20:00 162.6 cm WEIGHT 2020-05-03 13:20:00 56.246 kg Systolic blood 2020-04-17 21:03:00 110 mm[Hg] [facility] pressure Medicine Diastolic blood 2020-04-17 21:03:00 72 mm[Hg] [facility] pressure Medicine Heart rate 2020-04-17 21:03:00 87 /min [facility] ollege of Medicine Body temperature 2020-04-17 21:03:00 37.28 Marleen [facility] Body height 2020-04-17 21:03:00 162.6 cm [facility] C ollege of Medicine Body weight 2020-04-17 21:03:00 60.328 kg [facility] ollege of Medicine BMI 2020-04-17 21:03:00 22.83 kg/m2 [facility] ollege of Medicine Systolic blood 2020-04-17 21:03:00 110 mm[Hg] [facility] pressure Medicine Diastolic blood 2020-04-17 21:03:00 72 mm[Hg] [facility] Medicine Heart rate 2020-04-17 21:03:00 87 /min [facility] ollege of Medicine Body temperature 2020-04-17 21:03:00 37.28 Marleen [facility] Body height 2020-04-17 21:03:00 162.6 cm [facility] ollege of Medicine Body weight 2020-04-17 21:03:00 60.328 kg [facility] ollege of Medicine BMI 2020-04-17 21:03:00 22.83 kg/m2 [facility] C ollege of Medicine WEIGHT 2019-12-07 00:00:00 58.968 kg HEIGHT 2019-12-07 00:00:00 165.1 cm Procedures Procedure Date / Time Performing Clinician Source Performed MEDICATION CORRESPONDENCE 2021-08-07 05:01:00 Doctor Unassigned, [facility] MEDICATION CORRESPONDENCE 2021-06-23 06:01:00 Doctor Unassigned, [facility] MR Ankle wo contrast 2018-09-30 00:00:00 [facility] [address] Physicians Plan of Care Planned Activity Planned Date Details Comments Source Future Scheduled 2021-07-10 Pneumococcal Combined [facility] Test 14:52:39 (1 of 2 - PPSV23) [code of M edicine = Pneumococcal Combined (1 of 2 - PPSV23)] Future Scheduled 2021-07-10 Diabetic foot [facility] Test 14:52:39 examination of Medicine (regime/therapy) [code = 019237984] Future Scheduled 2021-07-10 ANNUAL DIABETIC [facility] C ollege Test 14:52:39 RETINOPATHY SCREENING of Med icine [code = ANNUAL DIABETIC RETINOPATHY SCREENING] Future Scheduled 2021-07-10 Hepatitis C screening [facility] [employer] Test 14:52:39 (procedure) [code = of Medic ine 830119750] Future Scheduled 2021-07-10 Human immunodeficiency [facility] Test 14:52:39 virus screening of Medicine (procedure) [code = 259699902] Future Scheduled 2021-07-10 Screening for malignant [facility] Test 14:52:39 neoplasm of cervix of Medici ne (procedure) [code = 344880510] Future Scheduled 2021-07-10 FLU VACCINE > 6 MONTHS [facility] [employer] Test 14:52:39 [code = FLU VACCINE > 6 of M edicine MONTHS] Future Scheduled 2021-07-10 COVID-19 Vaccine (2 - [facility] Test 14:52:39 Moderna 3-dose series) of dicine [code = COVID-19 Vaccine (2 - Moderna 3-dose series)] Future Scheduled 2021-07-10 TETANUS SHOT (ADULT) [facility] Test 14:52:39 [code = TETANUS SHOT of Medi cine (ADULT)] Future Scheduled 2021-02-18 Diabetic foot [facility] Test 10:16:35 examination of Medicine (regime/therapy) [code = 414156406] Future Scheduled 2021-02-18 ANNUAL DIABETIC [facility] C ollege Test 10:16:35 RETINOPATHY SCREENING of Med icine [code = ANNUAL DIABETIC RETINOPATHY SCREENING] Future Scheduled 2021-02-18 Hepatitis C screening [facility] [employer] Test 10:16:35 (procedure) [code = of Medic ine 307292400] Future Scheduled 2021-02-18 [facility] Test 10:16:35 virus screening of Medicine (procedure) [code = 694190852] Future Scheduled 2021-02-18 Screening for malignant [facility] Test 10:16:35 neoplasm of cervix of Medici ne (procedure) [code = 618746337] Future Scheduled 2021-02-18 FLU VACCINE > 6 MONTHS [facility] [employer] Test 10:16:35 [code = FLU VACCINE > 6 of M edicine MONTHS] Future Scheduled 2021-02-18 COVID-19 Vaccine (2 - [facility] Test 10:16:35 Moderna 2-dose series) of Me dicine [code = COVID-19 Vaccine (2 - Moderna 2-dose series)] Future Scheduled 2021-02-18 TETANUS SHOT (ADULT) [facility] Test 10:16:35 [code = TETANUS SHOT of Medi cine (ADULT)] Future Scheduled 2021-02-18 Diabetic foot [facility] Col lege Test 10:16:35 examination of Medicine (regime/therapy) [code = 887809173] Future Scheduled 2021-02-18 ANNUAL DIABETIC [facility] C ollege Test 10:16:35 RETINOPATHY SCREENING of Med icine [code = ANNUAL DIABETIC RETINOPATHY SCREENING] Future Scheduled 2021-02-18 Hepatitis C screening [facility] Test 10:16:35 (procedure) [code = of Medic ine 934198134] Future Scheduled 2021-02-18 Human immunodeficiency B [facility] Test 10:16:35 virus screening of Medicine (procedure) [code = 699069387] Future Scheduled 2021-02-18 Screening for malignant [facility] Test 10:16:35 neoplasm of cervix of Medici ne (procedure) [code = 061299672] Future Scheduled 2021-02-18 FLU VACCINE > 6 MONTHS B [facility] Test 10:16:35 [code = FLU VACCINE > 6 of M edicine MONTHS] Future Scheduled 2021-02-18 COVID-19 Vaccine (2 - Ba [facility] Test 10:16:35 Moderna 2-dose series) of Me dicine [code = COVID-19 Vaccine (2 - Moderna 2-dose series)] Future Scheduled 2021-02-18 TETANUS SHOT (ADULT) [facility] Test 10:16:35 [code = TETANUS SHOT of Medi cine (ADULT)] Future Scheduled 2021-02-18 XR ABDOMEN 1 VIEW (KUB) 1 Occurrences [facility] Test 09:27:19 [code = 99600] starting of Medicine 02/18/2021 until 02/18/2022 Future Scheduled 2021-02-18 XR ABDOMEN 1 VIEW (KUB) 1 Occurrences [facility] Test 09:27:19 [code = 19686] starting of Medicine 02/18/2021 until 02/18/2022 Future Scheduled COVID-19 Vaccine [facility] Test Evaluation [code = of Medici ne COVID-19 Vaccine Evaluation] Future Scheduled TETANUS SHOT (ADULT) [facility] [facility] Test [code = TETANUS SHOT of Medi cine (ADULT)] Future Scheduled Diabetic foot [facility] Col [facility]ge Test examination of Medicine (regime/therapy) [code = 447821116] Future Scheduled ANNUAL DIABETIC [facility] C ollege Test RETINOPATHY SCREENING of Med icine [code = ANNUAL DIABETIC RETINOPATHY SCREENING] Future Scheduled HEPATITIS C SCREENING [facility] [employer] Test [code = HEPATITIS C of Medic ine SCREENING] Future Scheduled HIV SCREENING [code = [facility] [employer] Test HIV SCREENING] of Medicine Future Scheduled CERVICAL CANCER [facility] C ollege Test SCREENING 3 YEAR FOLLOW of M edicine UP [code = CERVICAL CANCER SCREENING 3 YEAR FOLLOW UP] Future Scheduled FLU VACCINE > 6 MONTHS [employer] [employer] Test [code = FLU VACCINE > 6 of M edicine MONTHS] Future Scheduled NICOTINE AND COTININE, Ordered: [facility] [employer] [employer] Test LC/MS/MS, SERUM/PLASMA 04/17/2020 of Nv dicine [code = NOCPT] Future Scheduled TETANUS SHOT (ADULT) [facility] [facility] Test [code = TETANUS SHOT of Medi cine (ADULT)] Future Scheduled HEPATITIS C SCREENING [facility] [employer] Test [code = HEPATITIS C of Medic ine SCREENING] Future Scheduled HIV SCREENING [code = [facility] [employer] Test HIV SCREENING] of Medicine Future Scheduled CERVICAL CANCER [facility] C ollege Test SCREENING 3 YEAR FOLLOW of M edicine UP [code = CERVICAL CANCER SCREENING 3 YEAR FOLLOW UP] Future Scheduled FLU VACCINE > 6 MONTHS [employer] Test [code = FLU VACCINE > 6 of M edicine MONTHS] Encounters Start End Encounter Admission Attending Care Care Encounter Source Date/Time Date/Time Type Type Clinicians Facility Department ID 2021-08-20 Outpatient [facility] Surgery [id number] [facility] 15:44:15 MICHEL BOURNE 2021-08-10 Outpatient [facility] [id number] [place] 09:47:50 [facility] 2021-02-23 Outpatient [facility] Surgery [id number] [facility] 06:24:22 MICHEL BOURNE 2021-02-22 Outpatient [facility] Surgery [id number] [facility] 20:20:42 MICHEL BOURNE 2021-02-22 Outpatient [facility] Surgery [id number] [facility] 18:47:36 MICHEL BOURNE 2020-10-14 Inpatient [facility] [id number] [facility] 08:05:00 [id number] [facility] 2019-06-25 Inpatient [facility] RHONDA [id number] [facility] 23:52:00 [id number] [facility] 2016-10-05 Inpatient [facility] [id number] Ann rris 06:39:25 Health 2021-09-03 2021-09-03 Outpatient [facility] [id number] [facility] 13:08:17 13:46:32 MICHEL BOURNE Col lege of Medicin e 2021-08-07 2021-08-07 Orders Doctor ESTRELLA [id number] Univers 00:00:00 00:00:00 Only Unassigned, JYOTI [id number] ity of [place] [facility] [id number] [place] [id number] [facility] 009 Branch 2021-07-04 2021-07-04 Office KOLBY [facility] [id number] [facility] 15:35:09 15:35:09 Visit MICHEL BOURNE AMBULATOR [id number] College Y [id number] of [id number] [facility] 805 e 2021-06-28 2021-06-28 Outpatient R CAITLIN [facility] [id number] Univers 08:45:00 08:45:00 LUIS [id number] ity of [facility] 2021-06-28 2021-06-28 Outpatient R CAITLIN [facility] [id number] Univers 08:45:00 08:45:00 LUIS ity [facility] 2021-06-24 2021-06-24 Telephone Caitlin [facility] [id number] Univers 00:00:00 00:00:00 Luis MULTISPEC [id number] ity [facility] [id number] [facility] [id number] [facility] [place] 220 Branch DIAB[facility]ES [facility] 2021-06-23 2021-06-23 Orders Doctor ESTRELLA [id number] Univers 00:00:00 00:00:00 Only Unassigned, JYOTI [id number] ity of [place] [facility] [id number] Perico as [id number] [facility] [address] [place] 2021-06-22 2021-06-[address] [facility] 1.2.840.114 [id number] Univers 00:00:00 00:00:00 Luis MULTISPEC 350.1.13.10 ity of IALTY 4.2.7.2.686 [facility] REM[facility]ANDT [id number] [facility] AND DAVIS [address] [place] [facility] 2021-06-18 2021-06-18 Telephone JinCharlieMathew, [facility] 1.2.840.114 [id number] Univers 00:00:00 00:00:00 [facility] 350.1.13.10 it y of FAMILY 4.2.7.2.686 [facility] [id number] Med ical RASHID 044 [facility] 2021-06-12 2021-06-12 Outpatient Jeanna IRELAND [facility] [id number] Univers 14:15:00 14:15:00 NILESH [facility] 2021-06-07 2021-06-08 Outpatient DIANA LAWSKYFORESTWilber [facility] [id number] SLE 08:18:00 00:55:00 MICHEL BOURNE 2021-06-07 2021-06-07 Outpatient [facility] [id number] [facility] 08:18:00 23:59:00 Jame Medicin e 2021-06-07 2021-06-07 Outpatient Jeanna WEN [facility] [id number]-20 Univers 08:30:00 08:30:00 TYRELL [id number] [facility] 2021-06-07 2021-06-07 Outpatient Jeanna WEN [facility] [id number] Univers 08:30:00 08:30:00 TYRELL [facility] 2021-06-06 2021-06-06 Outpatient DIANA LAWSKYFORESTWilber [facility] [id number] SLE 15:15:16 23:59:00 MICHEL BOURNE 2021-06-06 2021-06-06 Outpatient EL KOLBY [facility] SLE [id number] SLE 11:33:26 14:59:00 MICHEL BOURNE 2021-06-06 2021-06-06 Outpatient KOLBY [facility] [id number] [facility] 10:47:58 10:54:19 MICHEL BOURNE Col lege of Medicin e 2021-05-27 2021-05-30 Inpatient ER KASSIE JAMIL [facility] Emergency [id number] [facility] 22:08:00 14:46:00 2021-05-28 2021-05-28 Outpatient R [facility] [id number] Univers 08:20:00 08:20:00 [id number] [facility] 2021-05-28 2021-05-28 Outpatient R DONNELL DALLIN [facility] [id number] Univers 08:20:00 08:20:00 [facility] 2021-05-27 2021-05-27 Outpatient [facility] [id number] [facility] 22:08:00 23:59:00 Colleg e of Medicin e 2021-05-24 2021-05-24 Outpatient R [facility] [id number] Univers 11:20:00 11:20:00 [id number] [facility] 2021-05-24 2021-05-24 Outpatient R DONNELL DALLIN [facility] [id number] Univers 11:20:00 11:20:00 [facility] 2021-05-15 2021-05-15 Office Beka [facility] 1.2.840.114 [id number] Univers 13:00:00 14:15:23 Visit Nilesh SPECIALTY 350.1.13.10 ity of CARE 4.2.7.2.686 [facility] AT [id number] [address] 2021-02-18 2021-02-18 Office SURYA Nolan 1.2.840.114 [id number] [facility] 08:55:39 09:25:39 Visit Jeevan [facility]UL[facility].1.13.21 [facility] 0.2.7.2.686 of [id number] Medi margaret 325 e 2021-01-10 2021-01-10 Outpatient GCCOVIDV GCCOVIDV [id number] GCCOVID 00:00:00 00:00:00 V 2020-12-27 2020-12-27 Emergency E [facility] [id number] 13:56:00 15:14:00 [facility] 2020-10-04 2020-10-04 Emergency [facility] 17:16:00 19:19:00 [facility] 2020-09-26 2020-09-26 Telephone Edilsonrosalie [facility] 1.2.840.114 [id number] 00:00:00 00:00:00 Luis MULTISPEC 350.1.13.10 IALTY 4.2.7.2.686 CENTER [id number] [facility] 2020-09-23 2020-09-23 Emergency E [id number] 16:17:00 19:59:00 , [facility]ADELYN [facility] 2020-08-06 2020-08-06 Outpatient SLEH [facility] [id number] [facility] 00:00:00 00:00:00 2020-08-03 2020-08-03 Outpatient EL [facility]H [facility] [id number] [facility] 00:00:00 00:00:00 2020-08-03 2020-08-03 Outpatient EL [facility]H [facility] [id number] [facility] 00:00:00 00:00:00 2020-05-31 2020-05-31 Office [facility] [facility] 1.2.840.114 [id number] [facility] 13:12:23 14:52:05 Visit es, Mihcel AMBULATOR 350.1.13.21 College G Y 0.2.7.2.686 of [id number] Medi margaret 800 e 2020-05-31 2020-05-31 Office [place] [facility] 1.2.840.114 [id number] 13:12:23 14:52:05 Visit es, Michel AMBULATOR 350.1.13.21 G Y 0.2.7.2.686 [id number] 2020-05-21 2020-05-21 Outpatient EL SLE [facility]H [id number] [facility]H 00:00:00 00:00:00 2020-05-03 2020-05-03 Outpatient EL SLEH [facility] [id number] [facility] 00:00:00 00:00:00 2020-04-17 2020-04-17 Office Carey-Staci [facility] 1.2.840.114 [id number] [facility] 14:43:25 16:24:07 Visit es, Michel AMBULATOR 350.1.13.21 College G Y 0.2.7.2.686 of [id number] [facility] 800 e 2020-04-17 2020-04-17 Office Carey-Staci [facility] 1.2.840.114 [id number] 14:43:25 16:24:07 Visit es, Michel AMBULATOR 350.1.13.21 G Y 0.2.7.2.686 [id number] [facility] 2019-12-07 2019-12-07 Emergency ER LYTWYN, SL Emergency [id number] [facility] 22:33:00 22:33:00 [facility] 2019-09-02 2019-09-02 Emergency [facility] [id number] [facility] 16:28:00 16:28:00 [id number] 2019-06-26 2019-06-26 Outpatient TANGELA Chung BK [id number] 60-2 [facility] 07:29:00 07:29:00 [place] [id number] [facility] 2018-09-30 2018-11-19 [facility] [id number] 13:45:00 14:49:23 2018-09-30 2018-09-30 Appointmen ROWAN CUTLER [facility] [id number] Univers 13:45:00 13:45:00 t; JESSICA CUTLER - [place] ity of JOSEPH, M.D. [place] M[facility]. [facility] ans 2018-08-03 2018-08-03 Appointmen ROWAN UMANZOR [id number] Univers 09:50:00 09:50:00 t; [place] UMANZOR it y of MATTHEW, M.D. [place] M.[facility]. [facility] ans 2018-02-15 2018-02-15 Appointmadisyn MCCAIN [facility] UTP [id number] Univers 09:15:00 09:15:00 t; CASSI MCCAIN ity of GEORGE, M.D. [place] [facility] 2017-11-16 2017-11-16 AppointROWAN Billy UTP [id number] Univers 10:15:00 10:15:00 t; CASSI MCCAIN ity of GEORGE, M.D. [place] M.[facility]. [facility]ici ans 2017-11-02 2017-11-02 AppointROWAN Billy UTP [id number] Univers 10:30:00 10:30:00 t; CASSI MCCAIN ity of GEORGE, M.D. [place] M.D. Physici ans 2016-10-05 2016-10-05 Emergency [facility] [id number] [place] 00:27:03 00:27:03 Health 2016-10-04 2016-10-04 Inpatient [facility] [id number] [place] 23:14:22 23:14:22 Health Results Test Description Test Time Test Comments Results Result Comments Source TISSUE EXAM 2021-06-10 Surgical Pathology 08:37:32 Report Case: [id number] Authorizing Provider: Michel Felix Collected: 06/07/2021 03:04 PM MD Ramesh Ordering Location: [facility] PERIOPERATIVE Received: 06/10/2021 06:31 AM SERVICES Pathologist: Napoleon Bach MD Specimen: Hardware, GASTRIC LEADS FOR ID ONLY NEUROSURGICAL HARDWARE, REMOVAL: -LEADS IDENTIFIED (GROSS ONLY) Signing Pathologist Direct Phone Line: [phone] majo signed by Napoleon Bach MD on 06/10/2021 at 8:37 [id number], pacemaker failureGastric neurostimulatorA. Received fresh labeled with the patient's name, medical record number and "hardware" are 2 leads measuring 31 cm and 20.5 cm in length, each 0.1 cm in diameter. A longer lead is inscribed with "[id number]," and the shorter lead is inscribed with"[id number]." Also received in the same container are 4 white plastic-like clips each measuring 0.9 x 0.2 x 0.1 cm and 2 circular translucent, rubbery object each measuring 1.3 cm in diameter and 0.2 cm in height. A gross photograph is taken. No sections are submitted-gross only.DEXTER Nix, SAMIR ([facility])David performed POCT-GLUCOSE METER 2021-06-07 23:54:11 Test Item Value Reference Range Interpretation Comme nts POC-GLUCOSE METER ([facility]) 306 mg/dL 70-110 H : TESTED AT [address] (test code = 1538) [facility] X, [address]: Telephone Quotation Clerk/Techni vanessa ID = [id number] for Nay Cross na POCT-GLUCOSE [id number] 23:07:41 Test Item Value Reference Range Interpretation Comments POC-GLUCOSE METER 378 mg/dL 70-110 H : TESTED A [place] [address] ([facility]) (test code = [facility], 153) [address]: Telephone Quotation Clerk/Techni vanessa ID = [id number] for Yoli Mckeon POCT-GLUCOSE [id number] 22:07:24 Test Item Value Reference Range Interpretation Comments POC-GLUCOSE METER 332 mg/dL 70-110 H : TESTED A [place] [address] ([facility]) (test code = [facility], 153) [address]: Telephone Quotation Clerk/Techni vanessa ID = [id number] for Yoli Mckeon POCT-GLUCOSE [id number] 20:03:45 Test Item Value Reference Range Interpretation Comments POC-GLUCOSE METER 438 mg/dL 70-110 HH : Notified RN/MD: ([facility]) (test code = TESTED AT [place] [address] 153) [facility], [address]: Telephone Quotation Clerk/Techni vanessa ID = [id number] for Divina lebronSarahanelon POCT-GLUCOSE [id number] 19:40:54 Test Item Value Reference Range Interpretation Comments POC-GLUCOSE METER 403 mg/dL 70-110 HH : Notified RN/MD: ([facility]) (test code = TESTED AT [place] [address] 153) [facility], [address]851: Telephone Quotation Clerk/Techni vanessa ID = [id number] for Da vis, Emili POCT-GLUCOSE [id number] 18:35:36 Test Item Value Reference Range Interpretation Comments POC-GLUCOSE METER 384 mg/dL 70-110 H : TESTED A T [facility] 6720 ([facility]) (test code = [facility], 1538) [address]: Telephone Quotation Clerk/Techni vanessa ID = [id number] for KENNA SIDHU POCT-GLUCOSE [id number] 16:51:42 Test Item Value Reference Range Interpretation Comments POC-GLUCOSE METER 196 mg/dL 70-110 H : Notified RN/MD: TESTED ([facility]) ([facility] [place] = 1538) [facility], 770 30: Telephone Quotation Clerk/Techni vanessa ID = [id number] for Bang Jorgensen POCT-GLUCOSE [id number] 15:42:33 Test Item Value Reference Range Interpretation Comments POC-GLUCOSE METER 203 mg/dL 70-110 H : [facility] ([facility]) (test code = [facility], 1538) [address]: Telephone Quotation Clerk/Techni vanessa ID = [id number] for EPHRAIM TRAN POCT-GLUCOSE [id number] 14:15:49 Test Item Value Reference Range Interpretation Comments POC-GLUCOSE METER 243 mg/dL 70-110 H : [facility] ([facility]) (test code = [facility], 1538) 75250: Telephone Quotation Clerk/Techni vanessa ID = [id number] for CL ELENA, MARIAM POCT-GLUCOSE [id number] 11:20:58 Test Item Value Reference Range Interpretation Comments POC-GLUCOSE METER 197 mg/dL 70-110 H : TESTED A T [facility] ([facility]) (test code = [facility], 1538) 11704: Telephone Quotation Clerk/Techni vanessa ID = [id number] for RA Y, ALTON POCT-GLUCOSE [id number] 09:12:56 Test Item Value Reference Range Interpretation Comments POC-GLUCOSE METER 227 mg/dL 70-110 H : TESTED A T [facility] ([facility]) (test code = [facility], 1538) 47283: Telephone Quotation Clerk/Techni vanessa ID = [id number] for TOVA HILL SARS-COV2/RT-PCR ([facility])2021-06-06 22:37:21 Test Item Value Reference Range Interpretation Comments SARS-COV2/RT-PCR (test Negative Not Detected, Negative, code = 1309065) See external report for linked test SARS-COV-2 PERFORMING LAB [facility] (test code = 6593017) Negative result for this test determines that SARS-CoV-2 RNA was not present in the specimen above the Limit of Detection (LOD). However, Negative results do not preclude SARS-CoV-2 infection and should not be used as the sole basis for treatment or patient management decisions. Negative results mustbe combined with clinical observations, patient history, and epidemiological information. A false negative result may occur if a specimen is improperly collected, transported or handled. A false negative result should be considered if patient's recent exposures or clinical presentation indicate that COVID-19 (SARS-CoV-2) is likely and diagnostic tests for other causes of illness are negative. Re-testing should be considered in cases of suspected false negatives.The limit of detection for this assay is 800 copies/mL.This SARS CoV-2 test is a real-time RT-PCR test intended for the qualitative detection of nucleic acid from SARS-CoV-2 in a nasopharyngeal swab specimen collected from individuals susp ected of COVID-19 by their healthcare provider.This test has not been Food and Drug Administration (FDA) cleared or approved. This is a modified version of an approved Emergency Use Authorization (EUA) and is in the process of review by the FDA. Once authorized by the FDA, the issued EUA will be effective until the declaration that circumstances exist justifying the authorization of the emergency use of in vitro diagnostic tests for detection and/or diagnosis of COVID-19 is terminated under Section 564(b)(2) of the Act or the EUA is revoked under Section 564(g) of the Act.Fact Sheet for Healthcare Providers:https://www.quidel.com/sites/default/files/product/documents/Fact_Shee i_QX_Fcuigroiv_Mdmg_BHJJ-NlO-9.pdfFact Sheet for Healthcare Patients:https://www.Iridian Technologiesidel.com/sites/default/files/product/ documents/Vxew_Jwfwr_Civcfxen_Idmt_RUQB-CkS-9.pdfPerforming Laboratory:[place] [address] [address].[place], [place] [address]GINZ-NTPXCZC METER 2021-05-30 11:42:07 Test Item Value Reference Range Interpretation Comments POC-GLUCOSE METER 269 mg/dL 70-110 H : Notified RN/MD: ([facility]) (test code = TESTED AT [facility] 6720 1538) [facility], [address]: Telephone Quotation Clerk/Techni vanessa ID = [id number] for ALINA TRUJILLO POCT-GLUCOSE [id number] 09:01:21 Test Item Value Reference Range Interpretation Comments POC-GLUCOSE METER 94 mg/dL 70-110 : [facility] ([facility] = [facility], 1538) [address]: Telephone Quotation Clerk/Techni vanessa ID = [id number] for PROD SOWMYA JURADO POCT-GLUCOSE [id number] 07:51:25 Test Item Value Reference Range Interpretation Comments POC-GLUCOSE METER 75 mg/dL 70-110 : TESTED A T [facility] 6720 [facility] (test code [facility], = 1538) [address]: Telephone Quotation Clerk/Techni vanessa ID = [id number] for GARC MEME HALE BASIC METABOLIC [id number] 07:25:52 Test Item Value Reference Range Interpretation Comments SODIUM (BEAKER) 138 meq/L 136-145 (test code = 381) POTASSIUM (BEAKER) 4.1 meq/L 3.5-5.1 (test code = 379) CHLORIDE (BEAKER) 105 meq/L 98-107 (test code = 382) CO2 (BEAKER) (test 28 meq/L 22-29 code = 355) BLOOD UREA NITROGEN 7 mg/dL 7-21 (BEAKER) (test code = 354) CREATININE (BEAKER) 0.74 mg/dL 0.57-1.25 (test code = 358) GLUCOSE RANDOM 72 mg/dL 70-105 (BEAKER) (test code = 652) CALCIUM (BEAKER) 9.4 mg/dL 8.4-10.2 (test code = 697) EGFR (BEAKER) (test 92 mL/min/1.73 ESTIMA OWEN GFR IS code = 1092) sq m NOT ACCURATE CREATININE CLEARANCE IN PREDICTING GLOMERULAR FILTRATION RATE . ESTIMATED GFR I S NOT APPLICABLE FOR DIALYSIS PATIEN TS. Telephone Quotation Clerk ID - [id number] GCBC W/PLT COUNT & AUTO [id number] 07:16:43 Test Item Value Reference Range Interpretation Comments WHITE BLOOD CELL COUNT (BEAKER) 7.0 K/ L 3.5-10.5 (test code = 775) RED BLOOD CELL COUNT (BEAKER) 4.00 M/ L 3.93-5.22 (test code = 761) HEMOGLOBIN (BEAKER) (test code = 13.5 GM/DL 11.2-15.7 410) HEMATOCRIT (BEAKER) (test code = 41.5 % 34.1-44.9 411) MEAN CORPUSCULAR VOLUME (BEAKER) 103.8 fL 79.4-94.8 H (test code = 753) MEAN CORPUSCULAR HEMOGLOBIN 33.8 pg 25.6-32.2 H (BEAKER) (test code = 751) MEAN CORPUSCULAR HEMOGLOBIN CONC 32.5 GM/DL 32.2-35.5 (BEAKER) (test code = 752) RED CELL DISTRIBUTION WIDTH 11.6 % 11.7-14.4 L (BEAKER) (test code = 412) PLATELET COUNT (BEAKER) (test 274 K/CU MM 150-450 code = 756) MEAN PLATELET VOLUME (BEAKER) 10.2 fL 9.4-12.3 (test code = 754) NUCLEATED RED BLOOD CELLS 0 /100 WBC 0-0 (BEAKER) (test code = 413) NEUTROPHILS RELATIVE PERCENT 38 % (BEAKER) (test code = 429) LYMPHOCYTES RELATIVE PERCENT 43 % (BEAKER) (test code = 430) MONOCYTES RELATIVE PERCENT 7 % (BEAKER) (test code = 431) EOSINOPHILS RELATIVE PERCENT 11 % (BEAKER) (test code = 432) BASOPHILS RELATIVE PERCENT 1 % (BEAKER) (test code = 437) NEUTROPHILS ABSOLUTE COUNT 2.69 K/ L 1.56-6.13 (BEAKER) (test code = 670) LYMPHOCYTES ABSOLUTE COUNT 3.02 K/ L 1.18-3.74 (BEAKER) (test code = 414) MONOCYTES ABSOLUTE COUNT (BEAKER) 0.48 K/ L 0.24-0.36 H (test code = 415) EOSINOPHILS ABSOLUTE COUNT 0.75 K/ L 0.04-0.36 H (BEAKER) (test code = 416) BASOPHILS ABSOLUTE COUNT (BEAKER) 0.08 K/ L 0.01-0.08 (test code = 417) IMMATURE GRANULOCYTES-RELATIVE 0 % 0-1 PERCENT (BEAKER) (test code = 2801) POCT-GLUCOSE [id number] 21:01:16 Test Item Value Reference Range Interpretation Comments POC-GLUCOSE METER 149 mg/dL 70-110 H : TESTED A T [facility] 6720 (BEAKER) (test code = [facility], 1538) [address]: Telephone Quotation Clerk/Techni vanessa ID = [id number] for Se Rosas POCT-GLUCOSE [id number] 18:06:01 Test Item Value Reference Range Interpretation Comments POC-GLUCOSE METER 177 mg/dL 70-110 H : TESTED A T [facility] 6720 (BEAKER) (test code [facility], = 1538) 859[address]: Telephone Quotation Clerk/Techni vanessa ID = [id number] for Abdoul (contract), Leticia dgette POCT-GLUCOSE [id number] 15:27:09 Test Item Value Reference Range Interpretation Comments POC-GLUCOSE METER 181 mg/dL 70-110 H : TESTED A T [facility] 6720 (BEAKER) (test code [facility], = 1538) 68184: Telephone Quotation Clerk/Techni vanessa ID = [id number] for Abdoul (contract), Leticia dgette POCT-GLUCOSE [id number] 12:50:35 Test Item Value Reference Range Interpretation Comments POC-GLUCOSE METER 141 mg/dL 70-110 H : TESTED A T [facility] 6720 (BEAKER) (test code [facility], = 1538) 96387: Telephone Quotation Clerk/Techni vanessa ID = [id number] for Abdoul (contract), Leticia dgette POCT-GLUCOSE [id number] 10:20:50 Test Item Value Reference Range Interpretation Comments POC-GLUCOSE METER 110 mg/dL 70-110 : TESTED A T [facility] 6720 (BEAKER) (test code = [facility], 1538) 368[address]: Telephone Quotation Clerk/Techni vanessa ID = [id number] for CIERA AGUILLON POCT-GLUCOSE [id number] 08:26:47 Test Item Value Reference Range Interpretation Comments POC-GLUCOSE METER 84 mg/dL 70-110 : TESTED A T [facility] 6720 (BEAKER) (test code = [facility] [place], 1538) 79[address]: Telephone Quotation Clerk/Techni vanessa ID = [id number] for Abdoul (contract)Leticia CBC W/PLT COUNT & AUTO [id number] 07:49:52 Test Item Value Reference Range Interpretation Comments WHITE BLOOD CELL COUNT 9.2 K/ L 3.5-10.5 (BEAKER) (test code = 775) RED BLOOD CELL COUNT 4.05 M/ L 3.93-5.22 (BEAKER) (test code = 761) HEMOGLOBIN (BEAKER) 13.7 GM/DL 11.2-15.7 (test code = 410) HEMATOCRIT (BEAKER) 42.8 % 34.1-44.9 (test code = 411) MEAN CORPUSCULAR 105.7 fL 79.4-94.8 H Discordant results VOLUME (BEAKER) (test compar ed to code = 753) previous, clini basil correlation required. MEAN CORPUSCULAR 33.8 pg 25.6-32.2 H HEMOGLOBIN (BEAKER) (test code = 751) MEAN CORPUSCULAR 32.0 GM/DL 32.2-35.5 L HEMOGLOBIN CONC (BEAKER) (test code = 752) RED CELL DISTRIBUTION 11.9 % 11.7-14.4 WIDTH (BEAKER) (test code = 412) PLATELET COUNT 286 K/CU MM 150-450 (BEAKER) (test code = 756) MEAN PLATELET VOLUME 10.2 fL 9.4-12.3 (BEAKER) (test code = 754) NUCLEATED RED BLOOD 0 /100 WBC 0-0 CELLS (BEAKER) (test code = 413) NEUTROPHILS RELATIVE 38 % PERCENT (BEAKER) (test code = 429) LYMPHOCYTES RELATIVE 43 % PERCENT (BEAKER) (test code = 430) MONOCYTES RELATIVE 9 % PERCENT (BEAKER) (test code = 431) EOSINOPHILS RELATIVE 9 % PERCENT (BEAKER) (test code = 432) BASOPHILS RELATIVE 1 % PERCENT (BEAKER) (test code = 437) NEUTROPHILS ABSOLUTE 3.48 K/ L 1.56-6.13 COUNT (BEAKER) (test code = 670) LYMPHOCYTES ABSOLUTE 3.95 K/ L 1.18-3.74 H COUNT (BEAKER) (test code = 414) MONOCYTES ABSOLUTE 0.82 K/ L 0.24-0.36 H COUNT (BEAKER) (test code = 415) EOSINOPHILS ABSOLUTE 0.80 K/ L 0.04-0.36 H COUNT (BEAKER) (test code = 416) BASOPHILS ABSOLUTE 0.10 K/ L 0.01-0.08 H COUNT (BEAKER) (test code = 417) IMMATURE 0 % 0-1 GRANULOCYTES-RELATIVE PERCENT (BEAKER) (test code = 2801) BASIC METABOLIC [id number] 06:03:42 Test Item Value Reference Range Interpretation Comments SODIUM (BEAKER) 139 meq/L 136-145 (test code = 381) POTASSIUM (BEAKER) 5.1 meq/L 3.5-5.1 Specimen slightly (test code = 379) hemolyzed CHLORIDE (BEAKER) 111 meq/L 98-107 H (test code = 382) CO2 (BEAKER) (test 22 meq/L 22-29 code = 355) BLOOD UREA NITROGEN 8 mg/dL 7-21 (BEAKER) (test code = 354) CREATININE (BEAKER) 0.79 mg/dL 0.57-1.25 Specimen slightly (test code = 358) hemolyzed GLUCOSE RANDOM 184 mg/dL 70-105 H (BEAKER) (test code = 652) CALCIUM (BEAKER) 8.6 mg/dL 8.4-10.2 (test code = 697) EGFR (BEAKER) (test 85 mL/min/1.73 ESTIMA OWEN GFR IS code = 1092) sq m NOT ACCURATE CREATININE CLEARANCE IN PREDICTING GLOMERULAR FILTRATION RATE . ESTIMATED GFR I S NOT APPLICABLE FOR DIALYSIS PATIEN TS. Telephone Quotation Clerk ID - PIAYA LPOCT-GLUCOSE [id number] 21:41:52 Test Item Value Reference Range Interpretation Comments POC-GLUCOSE METER 235 mg/dL 70-110 H : TESTED A T [facility] 6720 (BEAKER) (test code = [facility], 1538) 469[address]: Telephone Quotation Clerk/Techni vanessa ID = [id number] for JULIANNA ZBIGNIEW POCT-GLUCOSE [id number] 20:52:01 Test Item Value Reference Range Interpretation Comments POC-GLUCOSE METER 142 mg/dL 70-110 H : TESTED A T [facility] 6720 (BEAKER) (test code = [facility], 1538) [address]28[address]: Telephone Quotation Clerk/Techni vanessa ID = [id number] for ZULEIKA DENISE POCT-GLUCOSE [id number] 18:44:03 Test Item Value Reference Range Interpretation Comments POC-GLUCOSE METER 81 mg/dL 70-110 : TESTED A [place] [id number] ([facility]) (test code = [facility], 1538) [address]: Telephone Quotation Clerk/Techni vanessa ID = [id number] for Maximiliano Cohenia POCT-GLUCOSE [id number] 12:02:23 Test Item Value Reference Range Interpretation Comments POC-GLUCOSE METER 133 mg/dL 70-110 H : TESTED A T [facility] 6720 ([facility]) (test code = [facility], 1538) 86115: Telephone Quotation Clerk/Techni vanessa ID = [id number] for Sunni Castrejon POCT-GLUCOSE [id number] 11:25:55 Test Item Value Reference Range Interpretation Comments POC-GLUCOSE METER 181 mg/dL 70-110 H : Notified RN/MD: ([facility]) (test code = TESTED AT [place] [address] 1538) [facility], [address]: Telephone Quotation Clerk/Techni vanessa ID = [id number] for Sh fabi (contract)Raffy POCT-GLUCOSE [id number] 11:04:29 Test Item Value Reference Range Interpretation Comments POC-GLUCOSE METER 29 mg/dL 70-110 LL : Notified RN/MD: TESTED ([facility]) (test code = AT [facility] [address] [place] [address]) [facility], 770 30: Telephone Quotation Clerk/Techni vanessa ID = [id number] for Wilton alfonso, Sunni RAD, ABDOMEN, 2 [id number] 09:13:00AP and lateralReason for exam:- >pacemaker evaluation [facility] 1990 Sex: FFINAL REPORT RAD, ABDOMEN, 2 VIEWS CLINICAL INDICATION: pacemaker evaluation COMPARISON: 05/28/2021 TECHNIQUE: Single, frontal radiograph of the abdomen. FINDINGS:Generator with abandoned leads overlies the left mid abdomen. The bowel gas pattern is nonspecific, butnonobstructive. Large stool burden. Correlation for constipation is recommended. Evaluation for free air is limited by portable supine technique. Within these limitations, no free air is identified. Signed: Lisa Edge Verified Date/Time: 05/28/2021 09:13:49 Reading Location: [facility] Radiology Reading Room POCT-GLUCOSE METER 2021-05-28 06:21:54 Test Item Value Reference Range Interpretation Comments POC-GLUCOSE METER 96 mg/dL 70-110 : TESTED A T [facility] 6720 (Vusion) (test code = [facility], 1538) 31686: Telephone Quotation Clerk/Techni vanessa ID = [id number] for Nguy en, Tram POCT-GLUCOSE [id number] 05:49:58 Test Item Value Reference Range Interpretation Comments POC-GLUCOSE METER 69 mg/dL 70-110 L : TESTED A T [facility] 6720 (BEAKER) (test code = [place] [employer] [facility], 1538) 71741: Telephone Quotation Clerk/Techni vanessa ID = [id number] for Nguy en, Tram RAD, ABDOMEN/KUB, 1 VIEW [id number] 04:20:00Reason for exam:->eval of gastric stimulator placement [facility] 1990 Sex: FFINAL REPORT CLINICAL HISTORY: Evaluation of gastric stimulator shaunna cement COMPARISON: 08/06/2020 FINDINGS: 2 supine images of the abdomen are submitted. A stimulator generator overlying the left mid abdomen has its leads extending to the left upper quadrant, with the leads terminating over the gastric bubble. The abdominal bowel gas pattern is normal. Surgical clips ov erlie the right upper quadrant. There is no acute bony abnormality. Signed: Angela James MDReport Verified Date/Time: 05/28/2021 04:20:10 -COV2/RT-PCR ([facility])2021-05-28 03:25:38 Test Item Value Reference Range Interpretation Comments SARS-COV2/RT-PCR Negative Negative The SARS-Co V-2 target (test code = nucleic acids a re not 7912211) detected in thi s specimen. Negative result s do not preclude SARS-C oV-2 infection and s hould not be used as the mally e basis for patient managem ent decisions. Nega tive results must be combine d with clinical observ ations, patient history , and epidemiological information. A false negativ e result may occur if a spec imen is improperly curtis ected, transported or handled. This SARS CoV-2 test is a rapid, real-pili e RT-PCR test intended for th e qualitative detection of nu cleic acid from SARS-CoV-2 in a nasopharyngeal swab specimen collected from individuals suspected of CO VID-19 by their healthcar e provider. This test has been authorized by FDA under an EUA for use by authorized laboratories. This test is only authorized for the duration of the declaration that circumstances exist justifying the authorization of emergency use of in vitro diagnostic tests for detection and/or diagnosis of COVID-19 under Section 564(b)(1) of the Federal Food, Drug and Cosmetic Act, 21 U.S.C. 360bbb- 3(b)(1), unless the authorization is terminated or revoked sooner. Fact Sheet for Healthcare Providers: https://www.cephe id.[employer]ili[employer]/Documents/Xpert%20Xpress%20SARS%20CoV-2/Fact%20Sheets/302-3802%20SARS-COV -2%20HEALTHCARE%20PROVIDERS%20FACT%20SHEET.pdf Fact Sheet for Healthcare Patients: https://www.[employer]/Documents/Xpert %20Xpress%20SARS%20CoV-2/Fact%20Sheets/302-3801%22GZHT-BOG-7%20PATIENT%20FACT%20 SHEET.pdfHCG, QUANTITATIVE, [id number] 03:05:29 Test Item Value Reference Range Interpretation Comments GONADOTROPIN, CHORIONIC (HCG) QUANT < mIU/mL 0-10 (BEAKER) (test code = 649) Non- Females: <10 mIU/mL Females: Gestation Age Reference Range(mIU/mL) 0.2-1 Week 5-50 1-2 Weeks 50-500 2-3 Weeks 100-5,000 3-4Weeks 500-10,000 4-5 Weeks 1,000-50,000 5-6 Weeks 10,000-100,000 6-8 Weeks 15,000-200,000 2-3 Months 10,000-100,000 Telephone Quotation Clerk ID - PIAYA L BASIC METABOLIC [id number] 02:45:30 Test Item Value Reference Range Interpretation Comments SODIUM (BEAKER) 138 meq/L 136-145 (test code = 381) POTASSIUM (BEAKER) 4.2 meq/L 3.5-5.1 (test code = 379) CHLORIDE (BEAKER) 101 meq/L 98-107 (test code = 382) CO2 (BEAKER) (test 29 meq/L 22-29 code = 355) BLOOD UREA NITROGEN 10 mg/dL 7-21 (BEAKER) (test code = 354) CREATININE (BEAKER) 0.94 mg/dL 0.57-1.25 (test code = 358) GLUCOSE RANDOM 161 mg/dL 70-105 H (BEAKER) (test code = 652) CALCIUM (BEAKER) 10.4 mg/dL 8.4-10.2 H (test code = 697) EGFR (BEAKER) (test 70 mL/min/1.73 ESTIMA OWEN GFR IS code = 1092) sq m NOT ACCURATE CREATININE CLEARANCE IN PREDICTING GLOMERULAR FILTRATION RATE . ESTIMATED GFR I S NOT APPLICABLE FOR DIALYSIS PATIEN TS. Telephone Quotation Clerk ID - KATRINA MCBC W/PLT COUNT & AUTO [id number] 02:34:45 Test Item Value Reference Range Interpretation Comments WHITE BLOOD CELL COUNT (BEAKER) 8.3 K/ L 3.5-10.5 (test code = 775) RED BLOOD CELL COUNT (BEAKER) 4.44 M/ L 3.93-5.22 (test code = 761) HEMOGLOBIN (BEAKER) (test code = 14.7 GM/DL 11.2-15.7 410) HEMATOCRIT (BEAKER) (test code = 44.4 % 34.1-44.9 411) MEAN CORPUSCULAR VOLUME (BEAKER) 100.0 fL 79.4-94.8 H (test code = 753) MEAN CORPUSCULAR HEMOGLOBIN 33.1 pg 25.6-32.2 H (BEAKER) (test code = 751) MEAN CORPUSCULAR HEMOGLOBIN CONC 33.1 GM/DL 32.2-35.5 (BEAKER) (test code = 752) RED CELL DISTRIBUTION WIDTH 11.7 % 11.7-14.4 (BEAKER) (test code = 412) PLATELET COUNT (BEAKER) (test 355 K/CU MM 150-450 code = 756) MEAN PLATELET VOLUME (BEAKER) 10.5 fL 9.4-12.3 (test code = 754) NUCLEATED RED BLOOD CELLS 0 /100 WBC 0-0 (BEAKER) (test code = 413) NEUTROPHILS RELATIVE PERCENT 44 % (BEAKER) (test code = 429) LYMPHOCYTES RELATIVE PERCENT 41 % (BEAKER) (test code = 430) MONOCYTES RELATIVE PERCENT 7 % (BEAKER) (test code = 431) EOSINOPHILS RELATIVE PERCENT 7 % (BEAKER) (test code = 432) BASOPHILS RELATIVE PERCENT 1 % (BEAKER) (test code = 437) NEUTROPHILS ABSOLUTE COUNT 3.61 K/ L 1.56-6.13 (BEAKER) (test code = 670) LYMPHOCYTES ABSOLUTE COUNT 3.40 K/ L 1.18-3.74 (BEAKER) (test code = 414) MONOCYTES ABSOLUTE COUNT (BEAKER) 0.55 K/ L 0.24-0.36 H (test code = 415) EOSINOPHILS ABSOLUTE COUNT 0.60 K/ L 0.04-0.36 H (BEAKER) (test code = 416) BASOPHILS ABSOLUTE COUNT (BEAKER) 0.10 K/ L 0.01-0.08 H (test code = 417) IMMATURE GRANULOCYTES-RELATIVE 0 % 0-1 PERCENT (BEAKER) (test code = 2801) UA RFLX MICR CULT IF [id number] 09:43:00 Test Item Value Reference Range Interpretation Comments UA COLOR (test code = COLU) AMELIA YEL/STRAW A UA APPEARANCE (test code = SL CLOUDY CLEAR APPU) UA GLUCOSE DIPSTICK (test code NEGATIVE NEGATIVE = DGLUU) UA BILIRUBIN DIPSTICK (test NEGATIVE NEGATIVE code = BILU) UA KETONE DIPSTICK (test code 2+ NEGATIVE A = KETU) UA SPECIFIC GRAVITY (test code 1.030 1.005-1.030 N = SGU) UA BLOOD DIPSTICK (test code = NEGATIVE NEGATIVE MELI) UA PH DIPSTICK (test code = 6.0 5.0-7.0 N BARBARA) UA PROTEIN DIPSTICK (test code 1+ NEGATIVE A = PROU) UA UROBILINIOGEN DIPSTICK 2.0 mg/dL 0.2-1.0 A (test code = URO) UA NITRITE DIPSTICK (test code NEGATIVE NEGATIVE = YARI) UA LEUKOCYTE ESTERASE DIPSTICK NEGATIVE NEGATIVE (test code = LEUU) UA WBC (test code = WBCU) 0-3 WBC/HPF 0-3 UA RBC (test code = RBCU) 0-3 RBC/HPF 0-3 UA WBC NO REFLEX (test code = 0-3 WBC/HPF 0-3 WBCUCL) UA BACTERIA (test code = BACU) NONE SEEN /HPF NONE SEEN UA SQUAMOUS CELLS (test code = 0-5 /HPF NONE SEEN SQU) UA HYALINE CAST (test code = 3-5 /LPF NONE SEEN HYALU) UA MUCUS (test code = MUCU) 4+ /LPF NONE SEEN A Indication for culture: Dysuria/FrequencySpecimen Description: CLEAN CATCH- XR ABD ACUTE [id number] 09:20:00 [facility] 1990 Sex: F FAX: Felton Barreto [phone] [place]: St: REG FAX: Fabienne Rosales MD [phone] Name: PAVEL FRANCO [facility] : 1990Age/S: [address] [place] [address] Blvd Unit #: [id number] Loc: [place] [address] Phys: Fabienne Rivera MD Acct: [id number] Dis Date: Status: REG ER PHONE #:[phone] Exam Date: 10/14/2020903 FAX #: [phone] Reason: acute abd pain EXAMS: CPT CODE: [id number] XR ABD ACUTE W/CHEST 17214 Flat and upright abdomen with single view chest 10/14/2020 HISTORY: Acute abdominal pain Comparison is made to CT 06/26/2019 FINDINGS: In the chest, the lungs are clear. Heart size and mediastinal vessels are normal. No free air under the hemidiaphragm is noted. In the abdomen, surgical clips in the right upper quadrant are present. Battery pack overlying the left abdomen is noted. No acute bony abnormality is present. No dilated bowel loops are present. No air-fluid levels are identified. IMPRESSION: 1. No acute process within chest. 2. Nonobstructed bowel gas pattern. SL: [id number] at 0920 Reported and signed by: Timothy Alves M.D. CC: Felton Sanchez M.D.; Fabienne Rivera MD Technologist: Licha Taylor,RT(R); Annmarie Chung RT(R) Trnscrd Date/Time/By: 10/14/2020 (919) : By: [email or web address] Orig Print D/T: S: 10/14/2020 (7116) PAGE 1 Signed ReportBASIC METABOLIC [id number] 08:51:00 Test Item Value Reference Range Interpretation Comments SODIUM (test code = NA) 138 mEq/L 134-147 N POTASSIUM (test code = 4.0 mEq/L 3.4-5.0 N K) CHLORIDE (test code = 108 mEq/L 100-108 N CL) CARBON DIOXIDE (test 20 mEq/l 21-33 L code = CO2) ANION GAP (test code = 14 0-20 N GAP) GLUCOSE (test code = 113 mg/dL 70-110 H GLU) BLOOD UREA NITROGEN 11 mg/dL 7-18 N (test code = BUN) GLOMERULAR FILTRATION 98.3 105-110 L Units of measure = RATE (test code = GFR) ml/mi n/1.73 m2 CREATININE (test code = 0.7 mg/dL 0.6-1.3 N CREAT) CALCIUM (test code = 9.8 mg/dL 8.0-10.5 N CA) HEPATIC FUNCTION [id number] 08:51:00 Test Item Value Reference Range Interpretation Comments TOTAL PROTEIN (test code = PROT) 7.9 g/dL 6.4-8.2 N ALBUMIN (test code = ALB) 4.70 g/dL 3.4-5.0 N BILIRUBIN TOTAL (test code = BILT) 1.10 mg/dL 0.0-1.0 H BILIRUBIN DIRECT (test code = 0.40 MG/DL 0.0-0.30 H BILD) BILIRUBIN INDIRECT (test code = 0.70 MG/DL BILIND) SGOT/AST (test code = AST) 22 IUnit/L 15-37 N SGPT/ALT (test code = ALT) 15 IUnit/L 30-65 L ALKALINE PHOSPHATASE TOTAL (test 66 IUnit/L 20-125 N code = ALKP) [id number] 08:51:00 Test Item Value Reference Range Interpretation Comments LIPASE (test code = LIP) 24 U/L 13-57 N [id number] 08:51:00 Test Item Value Reference Range Interpretation Comments MAGNESIUM (test code = MAG) 1.93 mg/dL 1.80-2.40 N HCG SERUM [id number] 08:51:00 Test Item Value Reference Range Interpretation Comments HCG SERUM QUAL (test code = SERUM NEGATIVE NEGATIVE HCGQL) BASIC METABOLIC [id number] 08:45:00 Test Item Value Reference Range Interpretation Comments SODIUM (test code = NA) mEq/L 134-147 POTASSIUM (test code = K) mEq/L 3.4-5.0 CHLORIDE (test code = CL) mEq/L 100-108 CARBON DIOXIDE (test code = CO2) mEq/l 21-33 ANION GAP (test code = GAP) 0-20 GLUCOSE (test code = GLU) mg/dL 70-110 BLOOD UREA NITROGEN (test code = BUN) mg/dL 7-18 GLOMERULAR FILTRATION RATE (test code 105-110 = GFR) CREATININE (test code = CREAT) mg/dL 0.6-1.3 CALCIUM (test code = CA) mg/dL 8.0-10.5 HEPATIC FUNCTION [id number] 08:45:00 Test Item Value Reference Range Interpretation Comments TOTAL PROTEIN (test code = PROT) g/dL 6.4-8.2 ALBUMIN (test code = ALB) g/dL 3.4-5.0 BILIRUBIN TOTAL (test code = BILT) mg/dL 0.0-1.0 BILIRUBIN DIRECT (test code = BILD) MG/DL 0.0-0.30 SGOT/AST (test code = AST) IUnit/L 15-37 SGPT/ALT (test code = ALT) IUnit/L 30-65 ALKALINE PHOSPHATASE TOTAL (test IUnit/L 20-125 code = ALKP) [id number] 08:45:00 Test Item Value Reference Range Interpretation Comments LIPASE (test code = LIP) U/L 13-57 [id number] 08:45:00 Test Item Value Reference Range Interpretation Comments MAGNESIUM (test code = MAG) mg/dL 1.80-2.40 HCG SERUM [id number] 08:45:00 Test Item Value Reference Range Interpretation Comments HCG SERUM QUAL (test code = SERUM NEGATIVE NEGATIVE HCGQL) CBC W/O [id number] 08:37:00 Test Item Value Reference Range Interpretation Comments WHITE BLOOD CELL (test code = 8.4 x10 3/uL 4.5-11.0 N WBC) RED BLOOD CELL (test code = 4.34 x10 6/uL 3.54-5.02 N RBC) HEMOGLOBIN (test code = HGB) 14.9 g/dL 11.0-15.0 N HEMATOCRIT (test code = HCT) 43.2 % 33.0-45.0 N MEAN CELL VOLUME (test code = 99.5 fL 81.0-99.0 H MCV) MEAN CELL HGB (test code = MCH) 34.3 pg 27.0-33.0 H MEAN CELL HGB CONCETRATION 34.5 g/dL 33.0-37.0 N (test code = MCHC) RED CELL DISTRIBUTION WIDTH CV 12.6 % 11.5-14.5 N (test code = RDW) RED CELL DISTRIBUTION WIDTH SD 46.3 fL 37.0-54.0 N (test code = RDW-SD) PLATELET COUNT (test code = 349 x10 3/uL 150-400 N PLT) MEAN PLATELET VOLUME (test code 10.5 fL 7.0-9.0 H = MPV) [id number] 08:24:00 Test Item Value Reference Range Interpretation Comments GLUBED (test code = 112 MG/DL 70-110 H Performe d by certified GLUBED) 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 There are right upper quadrant surgical clips. The bowel gas pattern is nonspecific. Free air and air-fluid levels are not definitively seen, but also cannot be excluded on the supine view. Signed: Zuleika Tran MDReport Verified Date/Time: 08/07/19 15:46:53 Reading Location: [facility] Radiology Reading Room POCT- GLUCOSE [id number] 11:09:00 Test Item Value Reference Range Interpretation Comments POC-GLUCOSE METER 269 mg/dL 70-110 H : TESTED A T [facility] 6720 (BEAKER) (test code = [facility], 1538) 14416: Telephone Quotation Clerk/Techni vanessa ID = [id number] for JENIFER JIN POCT-GLUCOSE [id number] 09:16:00 Test Item Value Reference Range Interpretation Comments POC-GLUCOSE METER 220 mg/dL 70-110 H : TESTED A T [facility] 6720 (BEAKER) (test code [facility], = 1538) 21522: Telephone Quotation Clerk/Techni vanessa ID = [id number] for KALI ZKEENAN BASIC METABOLIC [id number] 08:28:00 Test Item Value Reference Range Interpretation Comments SODIUM (BEAKER) 135 meq/L 136-145 L (test code = 381) POTASSIUM (BEAKER) 4.6 meq/L 3.5-5.1 (test code = 379) CHLORIDE (BEAKER) 105 meq/L 98-107 (test code = 382) CO2 (BEAKER) (test 20 meq/L 22-29 L code = 355) BLOOD UREA NITROGEN 12 mg/dL 7-21 (BEAKER) (test code = 354) CREATININE (BEAKER) 0.72 mg/dL 0.57-1.25 (test code = 358) GLUCOSE RANDOM 140 mg/dL 70-105 H (BEAKER) (test code = 652) CALCIUM (BEAKER) 9.5 mg/dL 8.4-10.2 (test code = 697) EGFR (BEAKER) (test 95 mL/min/1.73 ESTIMA OWEN GFR IS code = 1092) sq m NOT ACCURATE CREATININE CLEARANCE IN PREDICTING GLOMERULAR FILTRATION RATE . ESTIMATED GFR I S NOT APPLICABLE FOR DIALYSIS PATIEN TS. Telephone Quotation Clerk ID - [id number] W/PLT COUNT & AUTO [id number] 08:02:00 Test Item Value Reference Range Interpretation Comments WHITE BLOOD CELL COUNT (BEAKER) 8.5 K/ L 3.5-10.5 (test code = 775) RED BLOOD CELL COUNT (BEAKER) 3.95 M/ L 3.93-5.22 (test code = 761) HEMOGLOBIN (BEAKER) (test code = 12.9 GM/DL 11.2-15.7 410) HEMATOCRIT (BEAKER) (test code = 38.3 % 34.1-44.9 411) MEAN CORPUSCULAR VOLUME (BEAKER) 97.0 fL 79.4-94.8 H (test code = 753) MEAN CORPUSCULAR HEMOGLOBIN 32.7 pg 25.6-32.2 H (BEAKER) (test code = 751) MEAN CORPUSCULAR HEMOGLOBIN CONC 33.7 GM/DL 32.2-35.5 (BEAKER) (test code = 752) RED CELL DISTRIBUTION WIDTH 12.8 % 11.7-14.4 (BEAKER) (test code = 412) PLATELET COUNT (BEAKER) (test 274 K/CU MM 150-450 code = 756) MEAN PLATELET VOLUME (BEAKER) 10.1 fL 9.4-12.3 (test code = 754) NUCLEATED RED BLOOD CELLS 0 /100 WBC 0-0 (BEAKER) (test code = 413) NEUTROPHILS RELATIVE PERCENT 57 % (BEAKER) (test code = 429) LYMPHOCYTES RELATIVE PERCENT 26 % (BEAKER) (test code = 430) MONOCYTES RELATIVE PERCENT 8 % (BEAKER) (test code = 431) EOSINOPHILS RELATIVE PERCENT 8 % (BEAKER) (test code = 432) BASOPHILS RELATIVE PERCENT 1 % (BEAKER) (test code = 437) NEUTROPHILS ABSOLUTE COUNT 4.79 K/ L 1.56-6.13 (BEAKER) (test code = 670) LYMPHOCYTES ABSOLUTE COUNT 2.21 K/ L 1.18-3.74 (BEAKER) (test code = 414) MONOCYTES ABSOLUTE COUNT (BEAKER) 0.71 K/ L 0.24-0.36 H (test code = 415) EOSINOPHILS ABSOLUTE COUNT 0.65 K/ L 0.04-0.36 H (BEAKER) (test code = 416) BASOPHILS ABSOLUTE COUNT (BEAKER) 0.09 K/ L 0.01-0.08 H (test code = 417) IMMATURE GRANULOCYTES-RELATIVE 0 % 0-1 PERCENT (BEAKER) (test code = 2801) POCT-GLUCOSE [id number] 07:05:00 Test Item Value Reference Range Interpretation Comments POC-GLUCOSE METER 116 mg/dL 70-110 H : TESTED A [facility] 6720 ([facility]) (test code = [facility], 1537) 08253: Telephone Quotation Clerk/Techni vanessa ID = [id number] for Mehnaz Ross POCT-GLUCOSE [id number] 06:46:00 Test Item Value Reference Range Interpretation Comments POC-GLUCOSE METER 30 mg/dL 70-110 LL : TESTED A [facility] 6720 ([facility]) (test code = [facility], 153) 40784: Telephone Quotation Clerk/Techni vanessa ID = [id number] for CHAUNCEY WINTER POCT-GLUCOSE [id number] 06:37:00 Test Item Value Reference Range Interpretation Comments POC-GLUCOSE METER 35 mg/dL 70-110 LL : Verify w / Lab Draw: ([facility]) (test code = Will Jeanna epeat Test: TESTED 1537) AT [facility] [address] [place] [address], 770 30: Telephone Quotation Clerk/Techni vanessa ID = [id number] for CHAUNCEY WINTER SARS-COV2/RT-PCR ([facility])2020-08-04 02:30:00 Test Item Value Reference Range Interpretation Comments SARS-COV2/RT-PCR (test Negative Not Detected, Negative, code = 1066810) See external report for linked test SARS-COV-2 PERFORMING LAB [facility] (test code = 2450274) Negative result for this test determines that SARS-CoV-2 RNA was not present in the specimen above the Limit of Detection (LOD). However, Negative results do not preclude SARS-CoV-2 infection and should not be used as the sole basis for treatment or patient management decisions. Negative results mustbe combined with clinical observations, patient history, and epidemiological information. A false negative result may occur if a specimen is improperly collected, transported or handled. A false negative result should be considered if patient's recent exposures or clinical presentation indicate that COVID-19 (SARS-CoV-2) is likely and diagnostic tests for other causes of illness are negative. Re-testing should be considered in cases of suspected false negatives.The limit of detection for this assay is 100 copies/mL.This SARS CoV-2 test is a real-time RT-PCR test intended for the qualitative detection of nucleic acid from SARS-CoV-2 in a nasopharyngeal swab specimen collected from individuals susp ected of COVID-19 by their healthcare provider.This test has not been Food and Drug Administration (FDA) cleared or approved. This is a modified version of an approved Emergency Use Authorization (EUA) and is in the process of review by the FDA. Once authorized by the FDA, the issued EUA will be effective until the declaration that circumstances exist justifying the authorization of the emergency use of in vitro diagnostic tests for detection and/or diagnosis of COVID-19 is terminated under Section 564(b)(2) of the Act or the EUA is revoked under Section 564(g) of the Act.Testing was performed using the Cheng SARS-CoV-2 assay.Fact Sheet for Healthcare Providers:https://www.molecular.cheng/navdeep/ ZR_OVPG-NvL-4_WMU_Oykw_Rdtfd_51-412558.pdfFact Sheet for Healthcare Patients:https://www.molecular.ab tobias/navdeep/QG_OEKH-CuC-5_Ncqtyim_Cryp_Kaucc_PI_98-474279T7.pdfPerforming Laboratory:[facility] [place] [address] MISCELLANEOUS LAB [id number] 08:19:00 Test Item Value Reference Range Interpretation Comments SCAN RESULT (test code = 1070791) POCT-GLUCOSE [id number] 07:49:00 Test Item Value Reference Range Interpretation Comments POC-GLUCOSE METER 104 mg/dL 70-110 : TESTED A T [facility] 6720 (CASS) (test code = ABEBE Meeks [facility], 153) 11076: Telephone Quotation Clerk/Techni vanessa ID = [id number] for BEVERLY BRANDON [id number] 05:21:00 Test Item Value Reference Range Interpretation Comments MAGNESIUM (BEAKER) 2.2 mg/dL 1.6-2.6 Specimen moderately (test code = 627) hemolyzed Telephone Quotation Clerk ID - [id number] 05:21:00 Test Item Value Reference Range Interpretation Comments PHOSPHORUS (BEAKER) 3.6 mg/dL 2.3-4.7 Specimen moderately (test code = 604) hemolyzed Telephone Quotation Clerk ID - EDASIBASIC METABOLIC [id number] 05:21:00 Test Item Value Reference Range Interpretation Comments SODIUM (BEAKER) 139 meq/L 136-145 (test code = 381) POTASSIUM (BEAKER) 4.8 meq/L 3.5-5.1 Specimen moderately (test code = 379) hemolyzed CHLORIDE (BEAKER) 108 meq/L 98-107 H (test code = 382) CO2 (BEAKER) (test 21 meq/L 22-29 L code = 355) BLOOD UREA NITROGEN 5 mg/dL 7-21 L (BEAKER) (test code = 354) CREATININE (BEAKER) 0.80 mg/dL 0.57-1.25 Specimen moderately (test code = 358) hemolyzed GLUCOSE RANDOM 120 mg/dL 70-105 H (BEAKER) (test code = 652) CALCIUM (BEAKER) 9.2 mg/dL 8.4-10.2 (test code = 697) EGFR (BEAKER) (test 85 mL/min/1.73 ESTIMA OWEN GFR IS code = 1092) sq m NOT ACCURATE CREATININE CLEARANCE IN PREDICTING GLOMERULAR FILTRATION RATE . ESTIMATED GFR I S NOT APPLICABLE FOR DIALYSIS PATIEN TS. Telephone Quotation Clerk ID - EDASIPOCT-GLUCOSE [id number] 04:31:00 Test Item Value Reference Range Interpretation Comments POC-GLUCOSE METER 110 mg/dL 70-110 : TESTED A T [facility] 6720 (BEAKER) (test code = PROMISEFL Jeanna [facility], 153) 23493: Telephone Quotation Clerk/Techni vanessa ID = [id number] for [place] POCT-GLUCOSE [id number] 00:39:00 Test Item Value Reference Range Interpretation Comments POC-GLUCOSE METER 122 mg/dL 70-110 H : TESTED A T [facility] 6720 (BEAKER) (test code = ABEBE Mee[place] [facility], 1538) 24837: Telephone Quotation Clerk/Techni vanessa ID = [id number] for [place] POCT-GLUCOSE [id number] 22:23:00 Test Item Value Reference Range Interpretation Comments POC-GLUCOSE METER 103 mg/dL 70-110 : TESTED A T [facility] 6720 (BEAKER) (test code = ABEBE Meeks [facility], 1538) 39725: Telephone Quotation Clerk/Techni vanessa ID = [id number] for [place] Liss [id number] 22:06:00 Test Item Value Reference Range Interpretation Comments MAGNESIUM (BEAKER) 1.7 mg/dL 1.6-2.6 Specimen slightly (test code = 627) hemolyzed Telephone Quotation Clerk ID - [id number] 22:06:00 Test Item Value Reference Range Interpretation Comments PHOSPHORUS (BEAKER) 2.0 mg/dL 2.3-4.7 L Specimen slightly (test code = 604) hemolyzed Telephone Quotation Clerk ID - DBBASIC METABOLIC [id number] 22:06:00 Test Item Value Reference Range Interpretation Comments SODIUM (BEAKER) 138 meq/L 136-145 (test code = 381) POTASSIUM (BEAKER) 4.4 meq/L 3.5-5.1 Specimen slightly (test code = 379) hemolyzed CHLORIDE (BEAKER) 108 meq/L 98-107 H (test code = 382) CO2 (BEAKER) (test 21 meq/L 22-29 L code = 355) BLOOD UREA NITROGEN 7 mg/dL 7-21 (BEAKER) (test code = 354) CREATININE (BEAKER) 0.80 mg/dL 0.57-1.25 Specimen slightly (test code = 358) hemolyzed GLUCOSE RANDOM 121 mg/dL 70-105 H (BEAKER) (test code = 652) CALCIUM (BEAKER) 8.7 mg/dL 8.4-10.2 (test code = 697) EGFR (BEAKER) (test 85 mL/min/1.73 ESTIMA OWEN GFR IS code = 1092) sq m NOT ACCURATE CREATININE CLEARANCE IN PREDICTING GLOMERULAR FILTRATION RATE . ESTIMATED GFR I S NOT APPLICABLE FOR DIALYSIS PATIEN TS. Telephone Quotation Clerk ID - DBURINALYSIS W/ REFLEX URINE [id number] 21:26:00 Test Item Value Reference Range Interpretation Comments COLOR (BEAKER) (test code = 470) Light Yellow CLARITY (BEAKER) (test code = Clear 469) SPECIFIC GRAVITY UA (BEAKER) 1.021 1.001-1.035 (test code = 468) PH UA (BEAKER) (test code = 467) 6.0 5.0-8.0 PROTEIN UA (BEAKER) (test code = Negative Negative 464) GLUCOSE UA (BEAKER) (test code = >1000 mg/dL Negative A 365) KETONES UA (BEAKER) (test code = 100 mg/dL Negative A 371) BILIRUBIN UA (BEAKER) (test code Negative Negative = 462) BLOOD UA (BEAKER) (test code = Negative Negative 461) NITRITE UA (BEAKER) (test code = Negative Negative 465) LEUKOCYTE ESTERASE UA (BEAKER) Negative Negative (test code = 466) UROBILINOGEN UA (BEAKER) (test 0.2 mg/dL 0.2-1.0 code = 463) RBC UA (BEAKER) (test code = < /HPF 519) WBC UA (BEAKER) (test code = 2 /HPF 520) MUCUS (BEAKER) (test code = Rare 1574) SQUAMOUS EPITHELIAL (BEAKER) 2 /HPF (test code = 516) SOURCE(BEAKER) (test code = 3655) Telephone Quotation Clerk ID - [auto]Telephone Quotation Clerk ID - techPOCT-GLUCOSE [id number] 20:37:00 Test Item Value Reference Range Interpretation Comments POC-GLUCOSE METER 98 mg/dL 70-110 : TESTED A T [facility] 6720 (BEAKER) (test code = [place], 1538) [address]: Telephone Quotation Clerk/Techni vanessa ID = [id number] for Nicho Garcia CBC (HEMOGRAM ONLY)2020-05-24 18:45:00 Test Item Value Reference Range Interpretation Comments WHITE BLOOD CELL COUNT (BEAKER) 12.7 K/ L 3.5-10.5 H (test code = 775) RED BLOOD CELL COUNT (BEAKER) 3.14 M/ L 3.93-5.22 L (test code = 761) HEMOGLOBIN (BEAKER) (test code = 10.4 GM/DL 11.2-15.7 L 410) HEMATOCRIT (BEAKER) (test code = 31.7 % 34.1-44.9 L 411) MEAN CORPUSCULAR VOLUME (BEAKER) 101.0 fL 79.4-94.8 H (test code = 753) MEAN CORPUSCULAR HEMOGLOBIN 33.1 pg 25.6-32.2 H (BEAKER) (test code = 751) MEAN CORPUSCULAR HEMOGLOBIN CONC 32.8 GM/DL 32.2-35.5 (BEAKER) (test code = 752) RED CELL DISTRIBUTION WIDTH 12.1 % 11.7-14.4 (BEAKER) (test code = 412) PLATELET COUNT (BEAKER) (test 219 K/CU MM 150-450 code = 756) MEAN PLATELET VOLUME (BEAKER) 10.3 fL 9.4-12.3 (test code = 754) NUCLEATED RED BLOOD CELLS 0 /100 WBC 0-0 (BEAKER) (test code = 413) BLOOD GAS, [id number] 18:40:00 Test Item Value Reference Range Interpretation Comments PH VENOUS (BEAKER) (test code = 7.37 7.32-7.42 701) PCO2 VENOUS (BEAKER) (test code 21 mm Hg 41-51 L = 755) PO2 VENOUS (BEAKER) (test code = 132 mm Hg 25-40 H 702) O2 SATURATION VENOUS (BEAKER) 98.6 % 40.0-70.0 H (test code = 703) HCO3 VENOUS (BEAKER) (test code 12 mmol/L 21-29 L = 705) BASE EXCESS VENOUS (BEAKER) -11.2 mmol/L -2.0-3.0 L (test code = 704) PATIENT TEMPERATURE (BEAKER) 37.0 (test code = 1818) FIO2 (BEAKER) (test code = 1819) 21.0 POCT-GLUCOSE [id number] 18:37:00 Test Item Value Reference Range Interpretation Comments POC-GLUCOSE METER 113 mg/dL 70-110 H : TESTED A T [facility] 6720 (BEAKER) (test code = [place], 1538) [address]: Telephone Quotation Clerk/Techni vanessa ID = [id number] for Shannon VYAS POCT-GLUCOSE [id number] 16:28:00 Test Item Value Reference Range Interpretation Comments POC-GLUCOSE METER 207 mg/dL 70-110 H : [facility] 67[facility] (BEAKER) (test code = [facility], 1538) [address]: Telephone Quotation Clerk/Techni vanessa ID = [id number] for FE LDER, MARIA ALEJANDRA KETONE, [id number] 14:16:00 Test Item Value Reference Range Interpretation Comments KETONES, BLOOD (BEAKER) (test code 3.0 mmol/L <0.4 H = 1103) POCT-GLUCOSE [id number] 11:52:00 Test Item Value Reference Range Interpretation Comments POC-GLUCOSE METER 294 mg/dL 70-110 H : Notified RN/MD: ([facility]) (test code = TESTED AT [facility] 6720 1538) [facility], [address]: Telephone Quotation Clerk/Techni vanessa ID = [id number] for FE LDER, MARIA ALEJANDRA POCT-GLUCOSE [id number] 09:44:00 Test Item Value Reference Range Interpretation Comments POC-GLUCOSE METER 328 mg/dL 70-110 H : TESTED A T [facility] 6720 ([facility]) (test code = [facility], 1538) [address]: Telephone Quotation Clerk/Techni vanessa ID = [id number] for Da vis, Amelia BASIC METABOLIC [id number] 05:27:00 Test Item Value Reference Range Interpretation Comments SODIUM (BEAKER) 138 meq/L 136-145 (test code = 381) POTASSIUM (BEAKER) 4.4 meq/L 3.5-5.1 (test code = 379) CHLORIDE (BEAKER) 107 meq/L 98-107 (test code = 382) CO2 (BEAKER) (test 16 meq/L 22-29 L code = 355) BLOOD UREA NITROGEN 13 mg/dL 7-21 (BEAKER) (test code = 354) CREATININE (BEAKER) 0.87 mg/dL 0.57-1.25 (test code = 358) GLUCOSE RANDOM 257 mg/dL 70-105 H (BEAKER) (test code = 652) CALCIUM (BEAKER) 8.8 mg/dL 8.4-10.2 (test code = 697) EGFR (BEAKER) (test 77 mL/min/1.73 ESTIMA OWEN GFR IS code = 1092) sq m NOT ACCURATE CREATININE CLEARANCE IN PREDICTING GLOMERULAR FILTRATION RATE . ESTIMATED GFR I S NOT APPLICABLE FOR DIALYSIS PATIEN TS. Telephone Quotation Clerk ID - KATRINA MCBC, w/diff, plateletsBasic Metabolic Panel (BMPNL)POD#1:CBC, w/diff, plateletsComprehensive Metabolic PanelPOCT-GLUCOSE [id number] 04:41:00 Test Item Value Reference Range Interpretation Comments POC-GLUCOSE METER 223 mg/dL 70-110 H : TESTED A T [facility] 6720 (BEAKER) (test code = [facility], 1538) [address]: Telephone Quotation Clerk/Techni vanessa ID = [id number] for DA PRIYANK, GILDARDO POCT-GLUCOSE [id number] 01:30:00 Test Item Value Reference Range Interpretation Comments POC-GLUCOSE METER 258 mg/dL 70-110 H : TESTED A T [facility] 6720 (BEAKER) (test code = [facility], 1538) [address]: Telephone Quotation Clerk/Techni vanessa ID = [id number] for DA PRIYANK, GILDARDO POCT-GLUCOSE [id number] 23:15:00 Test Item Value Reference Range Interpretation Comments POC-GLUCOSE METER 332 mg/dL 70-110 H : TESTED A T [facility] 6720 (BEAKER) (test code = [facility], 1538) [address]: Telephone Quotation Clerk/Techni vanessa ID = [id number] for Laura Gudino CBC W/PLT COUNT & AUTO [id number] 21:48:00 Test Item Value Reference Range Interpretation Comments WHITE BLOOD CELL COUNT (BEAKER) 13.4 K/ L 3.5-10.5 H (test code = 775) RED BLOOD CELL COUNT (BEAKER) 3.82 M/ L 3.93-5.22 L (test code = 761) HEMOGLOBIN (BEAKER) (test code = 12.6 GM/DL 11.2-15.7 410) HEMATOCRIT (BEAKER) (test code = 39.8 % 34.1-44.9 411) MEAN CORPUSCULAR VOLUME (BEAKER) 104.2 fL 79.4-94.8 H (test code = 753) MEAN CORPUSCULAR HEMOGLOBIN 33.0 pg 25.6-32.2 H (BEAKER) (test code = 751) MEAN CORPUSCULAR HEMOGLOBIN CONC 31.7 GM/DL 32.2-35.5 L (BEAKER) (test code = 752) RED CELL DISTRIBUTION WIDTH 12.1 % 11.7-14.4 (BEAKER) (test code = 412) PLATELET COUNT (BEAKER) (test 248 K/CU MM 150-450 code = 756) MEAN PLATELET VOLUME (BEAKER) 10.6 fL 9.4-12.3 (test code = 754) NUCLEATED RED BLOOD CELLS 0 /100 WBC 0-0 (BEAKER) (test code = 413) NEUTROPHILS RELATIVE PERCENT 91 % (BEAKER) (test code = 429) LYMPHOCYTES RELATIVE PERCENT 7 % (BEAKER) (test code = 430) MONOCYTES RELATIVE PERCENT 2 % (BEAKER) (test code = 431) EOSINOPHILS RELATIVE PERCENT 0 % (BEAKER) (test code = 432) BASOPHILS RELATIVE PERCENT 0 % (BEAKER) (test code = 437) NEUTROPHILS ABSOLUTE COUNT 12.18 K/ L 1.56-6.13 H (BEAKER) (test code = 670) LYMPHOCYTES ABSOLUTE COUNT 0.91 K/ L 1.18-3.74 L (BEAKER) (test code = 414) MONOCYTES ABSOLUTE COUNT (BEAKER) 0.20 K/ L 0.24-0.36 L (test code = 415) EOSINOPHILS ABSOLUTE COUNT 0.02 K/ L 0.04-0.36 L (BEAKER) (test code = 416) BASOPHILS ABSOLUTE COUNT (BEAKER) 0.05 K/ L 0.01-0.08 (test code = 417) IMMATURE GRANULOCYTES-RELATIVE 0 % 0-1 PERCENT (BEAKER) (test code = 2801) POCT-GLUCOSE [id number] 21:30:00 Test Item Value Reference Range Interpretation Comments POC-GLUCOSE METER 354 mg/dL 70-110 H : TESTED A T [facility] 6720 (BEAKER) (test code = [place], 1538) [address]: Telephone Quotation Clerk/Techni vanessa ID = [id number] for JUSTYN CORBIN POCT-GLUCOSE [id number] 14:13:00 Test Item Value Reference Range Interpretation Comments POC-GLUCOSE METER 130 mg/dL 70-110 H : TESTED A T [facility] 6720 (BEAKER) (test code = [facility], 153) [address]: Telephone Quotation Clerk/Techni vanessa ID = [id number] for BEATRICE FARMER POCT-GLUCOSE [id number] 13:41:00 Test Item Value Reference Range Interpretation Comments POC-GLUCOSE METER 66 mg/dL 70-110 L : [facility] 6720 ([facility]) (test code = [facility], 153) [address]: Telephone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 EDICAL PURPOSES ONLY. SPECIMEN WILL NOTBE CURTIS ECTED BY CHAIN OF CUSTOD Y.IF A CONFIRMATION OF POSITIVE RESULTS IS LEDA RED, ACONFIRMATION T EST MUST BE REQUESTED BY THE PHYSICIAN AT AN ADDITIONAL CHARGE TO THE P [facility]. CBC W/O [id number] 00:28:00 Test Item Value Reference Range Interpretation Comments WHITE BLOOD CELL (test code = 10.4 K/mm3 4.5-12.5 N WBC) RED BLOOD CELL (test code = 4.16 mill/mm3 3.7-5.2 N RBC) HEMOGLOBIN (test code = HGB) 13.7 gram/dL 11.5-15.5 N HEMATOCRIT (test code = HCT) 40.3 % 36.0-46.0 N MEAN CELL VOLUME (test code = 96.9 fL 80-98 N MCV) MEAN CELL HGB (test code = MCH) 32.9 picogram 27.0-33.0 N MEAN CELL HGB CONCETRATION 34.0 gram/dL 33.0-36.0 N (test code = MCHC) RED CELL DISTRIBUTION WIDTH 12.5 % 11.6-16.2 N (test code = RDW) PLATELET COUNT (test code = 278 K/mm3 150-450 N PLT) MEAN PLATELET VOLUME (test code 10.4 fL 6.7-11.0 N = MPV) BASIC METABOLIC [id number] 00:24:00 Test Item Value Reference Range Interpretation Comments SODIUM (test code = NA) 137 mmol/L 136-145 N POTASSIUM (test code = K) 3.8 mmol/L 3.5-5.1 N CHLORIDE (test code = CL) 106.0 mmol/L 98-107 N CARBON DIOXIDE (test code = CO2) mmol/L 21-32 ANION GAP (test code = GAP) 10-20 GLUCOSE (test code = GLU) mg/dL 74-106 BLOOD UREA NITROGEN (test code = mg/dL 7-18 BUN) GLOMERULAR FILTRATION RATE (test mL/min >=60 code = GFR) CREATININE (test code = CREAT) mg/dL 0.55-1.02 BUN/CREATININE RATIO (test code 10-20 = BUN/CREA) CALCIUM (test code = CA) mg/dL 8.5-10.1 HEPATIC FUNCTION [id number] 00:24:00 Test Item Value Reference Range Interpretation Comments TOTAL PROTEIN (test code = PROT) gram/dL 6.4-8.2 ALBUMIN (test code = ALB) g/dL 3.4-5.0 GLOBULIN (test code = GLOB) gram/dL 2.7-4.2 ALBUMIN/GLOBULIN RATIO (test code = 0.75-1.50 A/G) BILIRUBIN TOTAL (test code = BILT) mg/dL 0.0-1.0 BILIRUBIN DIRECT (test code = BILD) mg/dL 0.0-0.20 SGOT/AST (test code = AST) IUnit/L 15-37 SGPT/ALT (test code = ALT) IUnit/L 12-78 ALKALINE PHOSPHATASE TOTAL (test IUnit/L 45-117 code = ALKP) [id number] 00:24:00 Test Item Value Reference Range Interpretation Comments LIPASE (test code = LIP) U/L 73.0-393.0 HCG SERUM [id number] 00:24:00 Test Item Value Reference Range Interpretation Comments HCG SERUM QUAL (test NEGATIVE NEGATIVE This HC GQL test is NOT code = HCGQL) applicable for MALE patients.Check with nurse about probable order error.If Tumor Marker Test needed, nu rse should order test "HCG TU"(Test #550.73194)---- - [id number] 00:24:00 Test Item Value Reference Range Interpretation Comments ALCOHOL (test code = ALC) mg/dL 0-3 BASIC METABOLIC [id number] 00:23:00 Test Item Value Reference Range Interpretation Comments SODIUM (test code = NA) mmol/L 136-145 POTASSIUM (test code = K) mmol/L 3.5-5.1 CHLORIDE (test code = CL) mmol/L 98-107 CARBON DIOXIDE (test code = CO2) mmol/L 21-32 ANION GAP (test code = GAP) 10-20 GLUCOSE (test code = GLU) mg/dL 74-106 BLOOD UREA NITROGEN (test code = BUN) mg/dL 7-18 GLOMERULAR FILTRATION RATE (test code mL/min >=60 = GFR) CREATININE (test code = CREAT) mg/dL 0.55-1.02 BUN/CREATININE RATIO (test code = 10-20 BUN/CREA) CALCIUM (test code = CA) mg/dL 8.5-10.1 HEPATIC FUNCTION [id number] 00:23:00 Test Item Value Reference Range Interpretation Comments TOTAL PROTEIN (test code = PROT) gram/dL 6.4-8.2 ALBUMIN (test code = ALB) g/dL 3.4-5.0 GLOBULIN (test code = GLOB) gram/dL 2.7-4.2 ALBUMIN/GLOBULIN RATIO (test code = 0.75-1.50 A/G) BILIRUBIN TOTAL (test code = BILT) mg/dL 0.0-1.0 BILIRUBIN DIRECT (test code = BILD) mg/dL 0.0-0.20 SGOT/AST (test code = AST) IUnit/L 15-37 SGPT/ALT (test code = ALT) IUnit/L 12-78 ALKALINE PHOSPHATASE TOTAL (test IUnit/L 45-117 code = ALKP) [id number] 00:23:00 Test Item Value Reference Range Interpretation Comments LIPASE (test code = LIP) U/L 73.0-393.0 HCG SERUM [id number] 00:23:00 Test Item Value Reference Range Interpretation Comments HCG SERUM QUAL (test NEGATIVE NEGATIVE This HC GQL test is NOT code = HCGQL) applicable for MALE patients.Check with nurse about probable order error.If Tumor Marker Test needed, nu rse should order test "HCG TU"(Test #550.96343)---- - [id number] 00:23:00 Test Item Value Reference Range Interpretation Comments ALCOHOL (test code = ALC) mg/dL 0-3 - CT C-SPINE W/O [id number] 00:23:00 [facility] 1990 Age/S: 28 / F Rich Escalera Unit #: [id number] Loc: [place] [address] Phys: Montserrat Chung MD Acct: [id number] Dis Date: Status: REG ER PHONE #: [phone] Exam Date: 06/26/2019 0015 FAX #: [phone] Reason: Neck Pain EXAMS: CPTCODE: [id number] CT C-SPINE W/O CONTRAST 20223 Exam: CT C-spine. Location: H 12 History: Neck Pain Technique: Unenhanced spiral slices were taken through the cervical spine. Sagittal and coronal reformations were performed. One or more of the following dose reduction techniques were used: Automatedexposure control, adjustment of the mA and/or kV according to patient size, and/or utilizationof iterative reconstruction technique. Findings: No fracture or dislocation is seen. The bony cortices are intact. The disc spaces are well preserved. No traumatic canal stenosis or foraminal narrowing is seen. The vertebral bodies demonstrate normal heights. The spine is in good alignment. The surrounding soft tissues are normal. IMPRESSION: Unremarkable exam. at 0023 Reported and signed by: Rafal Longo M.D. CC: Felton Sanchez DO; Montserrat Chung MD Technologist:Dominic Lu RT(R) CTDI: DLP: Trnscb Date/Time: 06/26/2019 (0023) [email or web address] Orig Print D/T: S: 06/26/2019 (0026) PAGE 1 Signed Report- CT HEAD/BRAIN W/O [id number] 00:22:00 Name: PAVEL FRANCO [facility] : 1990 Age/S: 28 / F Rihc Escalera Unit #: [id number] Loc: [place] [address] Phys: Montserrat Chung MD Acct: [id number] Dis Date: Status: REG ER PHONE #: [phone] Exam Date: 06/26/201914 FAX #: [phone] Reason: HEADACHE EXAMS: CPTCODE: [id number] CT HEAD/BRAIN W/O CONT 52891 Exam: CT head without contrast. Location: H 12 History: HEADACHE Technique: Unenhanced spiral slices were taken from the base of the skull, through the vertex. One or more of the following dose reduction techniques were used: Automated exposure control, adjustment of the mA and/or kV according to patient size, and/or utilization of iterative reconstruction technique. Findings: No acute intracranial abnormality is identified. The brain parenchyma and the CSF spaces are unremarkable. No mass, midline shift, hemorrhag e, hydrocephalus or edema is seen. The visualized paranasal sinuses are clear. The mastoid aircells are well pneumatized. The bony calvarium is intact. Impression: 1. No acute intracranial abnormality. 2. Otherwise unremarkable exam. Elect ronically Signed by Jerod Longo on 06/26/2019 at 0022 Reported and signed by: Rafal Longo M.D. CC:Felton Sanchez DO; Montserrat Chung MD Technologist:Dominic Lu RT(R) CTDI: DLP: Trnscb Date/Time: 06/26/2019 (002) [email or web address] Orig Print D/T: S: 06/26/2019 (002) PAGE 1 Signed ReportCBC W/O [id number] 00:18:00 Test Item Value Reference Range Interpretation Comments WHITE BLOOD CELL (test code = K/mm3 4.5-12.5 WBC) RED BLOOD CELL (test code = RBC) mill/mm3 3.7-5.2 HEMOGLOBIN (test code = HGB) 13.7 gram/dL 11.5-15.5 N HEMATOCRIT (test code = HCT) 40.3 % 36.0-46.0 N MEAN CELL VOLUME (test code = fL 80-98 MCV) MEAN CELL HGB (test code = MCH) picogram 27.0-33.0 MEAN CELL HGB CONCETRATION (test gram/dL 33.0-36.0 code = MCHC) RED CELL DISTRIBUTION WIDTH % 11.6-16.2 (test code = RDW) PLATELET COUNT (test code = PLT) K/mm3 150-450 MEAN PLATELET VOLUME (test code fL 6.7-11.0 = MPV) [id number] 11:44:00 Test Item Value Reference Range Interpretation Comments GLUBED (test code = GLUBED) 58 MG/DL 74-106 L [id number] 06:49:00 Test Item Value Reference Range Interpretation Comments GLUBED (test code = GLUBED) 236 MG/DL 74-106 H [id number] 21:45:00 Test Item Value Reference Range Interpretation Comments GLUBED (test code = GLUBED) 85 MG/DL 74-106 N C REACTIVE [id number] 18:53:00 Test Item Value Reference Range Interpretation Comments C REACTIVE PROTEIN (test code = < 5.0 mg/L 0-9 N CRP) [id number] 17:49:00 Test Item Value Reference Range Interpretation Comments GLUBED (test code = GLUBED) 267 MG/DL 74-106 H - XR ABDOMEN 1 [id number] 15:27:00 FAX: Felton Barreto [phone] [place]: St: ADM FAX: Primitivo [place] [phone] FAX: Maverick Cruz MD [phone] Name: PAVEL FRANCO [facility] : 1990 Age/S: 28/F [address] Unit #: [id number] Loc: C.[address] [place] [address] Phys: Adilia Cordova OIL AGENT Acct: [id number] Dis Date: Status: ADM IN PHONE #: [phone] Exam Date: 09/16/2018 1305 FAX #: [phone] Reason: abdominal distention, eval ileus EXAMS: CPT CODE: [id number] XR ABDOMEN 1 V 61101 EXAM: Abdominal xray INDICATION: abdominal distention, eval ileus LOCATION CODE: C3 COMPARISON: 07/12/2018 TECHNIQUE: 1 view of the abdomen. DISCUSSION: The gallbladder is surgically absent. The black ash burner operator view from the CT scan demonstrate presence of multiple air-filled loop of small bowel reside within the central aspect of the abdomen suggest ileus. This pattern has improved since prior study. Osseous structures are unremarkable. No subdiaphragmatic free air. IMPRESSION: 1. Improvingsmall bowel distention. 2. Status post cholecystectomy. at 1527 Reported and signed by: Bhupinder Montelongo M.D. CC: Felton Sanchez DO; Adilia Cordova OIL AGENT; Maverick Guerra MD Technologist: Dominique Fuller [facility] Date/Time/By: 09/16/2018 (1527) : By: BrianneHPD PAGE 1 Signed Report FAX: Felton Barreto [phone] [place]: St: ADM FAX: Primitivo [place] [phone] FAX: Maverick Cruz MD [phone] Name: PAVEL FRANCO [facility] : 1990 Age/S: 28/F [address] Unit #: [id number] Loc: C.[address] [place] [address] Phys: Adilia Cordova NPAcct: [id number] Dis Date: Status: ADM IN PHONE #: [phone] Exam Date: 09/16/2018 1305 FAX #: [phone] Reason: abdominal distention, eval ileus EXAMS: CPT CODE: [id number] XR ABDOMEN 1 V 31657 <Continued> Orig Print D/T: S: 09/16/2018 (3930) PAGE 2 Signed [id number] 11:18:00 Test Item Value Reference Range Interpretation Comments GLUBED (test code = GLUBED) 94 MG/DL 74-106 N COMPREHENSIVE METABOLIC [id number] 03:41:00 Test Item Value Reference Range Interpretation Comments SODIUM (test code = 140 mmol/L 137-145 N NA) POTASSIUM (test code = 4.1 mmol/L 3.4-5.0 N K) CHLORIDE (test code = 110 mmol/L 98-107 H CL) CARBON DIOXIDE (test 26 mmol/L 22-30 N code = CO2) GLUCOSE (test code = 141 mg/dL 74-106 H GLU) BLOOD UREA NITROGEN 13 mg/dL 7-17 N (test code = BUN) GLOMERULAR FILTRATION 156 >60 The es timated RATE (test code = GFR) glome rular filtration rate is compute d usingpatient ra ce, age (>18), sex, and serum creatinin e. If anyof the neede d data elements are mi ssing the Laboratory cannot compute an ho mation of the glomerul ar filtration rate . CREATININE (test code 0.5 mg/dL 0.5-1.0 N = CREAT) TOTAL PROTEIN (test 6.1 g/dL 6.3-8.2 L code = PROT) ALBUMIN (test code = 3.4 g/dL 3.5-5.0 L ALB) CALCIUM (test code = 8.8 mg/dL 8.4-10.2 N CA) BILIRUBIN TOTAL (test 0.2 mg/dL 0.2-1.3 N code = BILT) BILIRUBIN CONJUGATED 0 mg/dL 0-0.3 N ~~~~~~~ ~~~~~~~~~~~~~~ (test code = BILCON) ~~~~~~~ ~~~~~~~~~~~~~~ ~~~~~~~~~~~~~~~ ~~~CON JUGATED BILIRUB IN IS THE REPLACEMENT ASSAY FOR DIRECTBILIRUBIN .~~~~~ ~~~~~~~~~~~~~~~ ~~~~~~ ~~~~~~~~~~~~~~~ ~~~~~~ ~~~~~~~~~~~~~ BILIRUBIN UNCONJUGATED 0 mg/dL 0-1.1 N (test code = BILUNC) SGOT/AST (test code = 26 U/L 15-46 N AST) SGPT/ALT (test code = 16 U/L 13-69 N ALT) ALKALINE PHOSPHATASE 53 U/L 38-126 N (test code = ALKP) [id number] 03:41:00 Test Item Value Reference Range Interpretation Comments PHOSPHOROUS (test code = PHOS) 4.1 mg/dL 2.5-4.5 N [id number] 03:41:00 Test Item Value Reference Range Interpretation Comments MAGNESIUM (test code = MAG) 1.9 mg/dL 1.6-2.3 N CBC W/AUTO [id number] 03:32:00 Test Item Value Reference Range Interpretation Comments WHITE BLOOD CELL (test code = 6.2 x10 3/uL 5.0-12.0 N WBC) RED BLOOD CELL (test code = 3.72 x10 6/uL 4.20-5.40 L RBC) HEMOGLOBIN (test code = HGB) 12.1 g/dL 12.0-16.0 N HEMATOCRIT (test code = HCT) 36.5 % 36.0-46.0 N MEAN CELL VOLUME (test code = 98 fL 81-99 N MCV) MEAN CELL HGB (test code = MCH) 32.5 pg 27-31 H MEAN CELL HGB CONCENTRATION 33.2 g/dL 33-37 N (test code = MCHC) RED CELL DISTRIBUTION WIDTH 11.9 % 11.5-15.5 N (test code = RDW) PLATELET COUNT (test code = 245 x10 3/uL 130-400 N PLT) MEAN PLATELET VOLUME (test code 10.6 fL 9.4-16.4 N = MPV) NEUTROPHIL % (test code = NT%) 26.4 % 43-65 L IMMATURE GRANULOCYTE % (test 0.2 % 0.0-2.0 N code = IG%) LYMPHOCYTE % (test code = LY%) 56.9 % 20.5-45.5 H MONOCYTE % (test code = MO%) 6.1 % 5.5-11.7 N EOSINOPHIL % (test code = EO%) 9.3 % 0.9-2.9 H BASOPHIL % (test code = BA%) 1.1 % 0.2-1.0 H NUCLEATED RBC % (test code = 0.0 % 0-1.0 N NRBC%) NEUTROPHIL # (test code = NT#) 1.64 x10 3/uL 2.2-4.8 L IMMATURE GRANULOCYTE # (test 0.01 x10 3/uL 0-0.03 N code = IG#) LYMPHOCYTE # (test code = LY#) 3.54 x10 3/uL 1.3-2.9 H MONOCYTE # (test code = MO#) 0.38 x10 3/uL 0.3-0.8 N EOSINOPHIL # (test code = EO#) 0.58 x10 3/uL 0.0-0.2 H BASOPHIL # (test code = BA#) 0.07 x10 3/uL 0.0-0.1 N [id number] 21:20:00 Test Item Value Reference Range Interpretation Comments GLUBED (test code = GLUBED) 173 MG/DL 74-106 H [id number] 16:10:00 Test Item Value Reference Range Interpretation Comments GLUBED (test code = GLUBED) 83 MG/DL 74-106 N CBC W/AUTO [id number] 14:05:00 Test Item Value Reference Range Interpretation Comments WHITE BLOOD CELL (test code = 5.4 x10 3/uL 5.0-12.0 N WBC) RED BLOOD CELL (test code = 3.94 x10 6/uL 4.20-5.40 L RBC) HEMOGLOBIN (test code = HGB) 13.1 g/dL 12.0-16.0 N HEMATOCRIT (test code = HCT) 38.5 % 36.0-46.0 N MEAN CELL VOLUME (test code = 98 fL 81-99 N MCV) MEAN CELL HGB (test code = MCH) 33.2 pg 27-31 H MEAN CELL HGB CONCENTRATION 34.0 g/dL 33-37 N (test code = MCHC) RED CELL DISTRIBUTION WIDTH 11.9 % 11.5-15.5 N (test code = RDW) PLATELET COUNT (test code = 255 x10 3/uL 130-400 N PLT) MEAN PLATELET VOLUME (test code 10.9 fL 9.4-16.4 N = MPV) NEUTROPHIL % (test code = NT%) 36.8 % 43-65 L IMMATURE GRANULOCYTE % (test 0.0 % 0.0-2.0 N code = IG%) LYMPHOCYTE % (test code = LY%) 45.9 % 20.5-45.5 H MONOCYTE % (test code = MO%) 6.7 % 5.5-11.7 N EOSINOPHIL % (test code = EO%) 9.1 % 0.9-2.9 H BASOPHIL % (test code = BA%) 1.5 % 0.2-1.0 H NUCLEATED RBC % (test code = 0.0 % 0-1.0 N NRBC%) NEUTROPHIL # (test code = NT#) 1.97 x10 3/uL 2.2-4.8 L IMMATURE GRANULOCYTE # (test 0.00 x10 3/uL 0-0.03 N code = IG#) LYMPHOCYTE # (test code = LY#) 2.46 x10 3/uL 1.3-2.9 N MONOCYTE # (test code = MO#) 0.36 x10 3/uL 0.3-0.8 N EOSINOPHIL # (test code = EO#) 0.49 x10 3/uL 0.0-0.2 H BASOPHIL # (test code = BA#) 0.08 x10 3/uL 0.0-0.1 N [id number] 13:58:00 Test Item Value Reference Range Interpretation Comments LIPASE (test code = LIP) 54 U/L 23-300 N [id number] 12:26:00 Test Item Value Reference Range Interpretation Comments GLUBED (test code = GLUBED) 335 MG/DL 74-106 H LIPID PROFILE (CORONARY RISK)2018-09-15 03:29:00 Test Item Value Reference Range Interpretation Comments TRIGLYCERIDES (test 144 mg/dL TRIGLYCE RIDES code = TRIG) REFERENCE RANGE:Normal: < 150 mg/dLBorderline High: 150-199 mg/dLHigh: 200- 499 mg/dLVery High: >=500 mg/dL CHOLESTEROL (test 178 mg/dL CHOLESTERO L code = CHOL) REFERENCE RANGE:DESIRABLE : < 200 mg/dLBORDER LINE: 200-239 mg/dLHI GH: >=240 mg/dL HDL CHOLESTEROL (test 56 mg/dL 40-59 N code = HDL) LIPOPROTEIN LDL (test 109.41 mg/dL 32-99 H code = LDLC) CORONARY RISK FACTOR 3.18 (test code = RISK) CHOL/HD L RISK MALE: 1/2 AVG 3.43 FEMALE: 1/2 AVG 3.27 AVG 4.97 AVG 4.44 2X AVG 9.55 2X AVG 7 .05 3X A VG 23.39 3X AVG 11.04~~~~~~~~~~ ~~~~~ ~~~~~~~~~~~~~~~ ~~~~~ ~~~~~~~~~~~~~~~ ~~~~~ ~~~~~National Cholesterol Education (NCEP ) Guidelines:~~~~ ~~~~~ ~~~~~~~~~~~~~~~ ~~~~~ ~~~~~~~~~~~~~~~ ~~~~~ ~~~~~~~~~~~ HDL Cholesterol<4 0mg/d L: HDL Choleste rol (Major risk fac tor for CHD)>60mg/d L: HDL Cholesterol (Negative risk factor for CHD)40-59mg/dL: Borderline Risk * *LDL Cholesterol<1 00mg/ dL: Desirable L DL-C [id number] 0-159 mg/dL: Borderli ne High Risk LDL-C [id number] 0-189 mg/dL: High ris k LDL-C concentra tion HDL-LDL Cholest dang is affected by a number of facto rs suchas smoking, age and sex.~~~~~~~~~~~ ~~~~~ ~~~~~~~~~~~~~~~ ~~~~~ ~~~~~~~~~~~~~~~ ~~~~~ ~~~~ LIPID PROFILE (CORONARY RISK)2018-09-15 03:14:00 Test Item Value Reference Range Interpretation Comments TRIGLYCERIDES (test 144 mg/dL TRIGLYCE RIDES code = TRIG) REFERENCE RANGE:Normal: < 150 mg/dLBorderline High: 150-199 mg/dLHi gh: 200-499 mg/dLVe ry High: >=500 mg/ dL CHOLESTEROL (test code 178 mg/dL KM STEROL REFERENCE = CHOL) RANGE:DESIRABLE : < 200 mg/dLBORDERLINE : 200-239 mg/dLHI GH: >=240 mg/dL HDL CHOLESTEROL (test 56 mg/dL 40-59 N code = HDL) LIPOPROTEIN LDL (test mg/dL 32-99 code = LDLC) CORONARY RISK FACTOR 3.18 (test code = RISK) CHOL/HDL RISK MALE: 1/2 AVG 3.43 FEMALE: 1/2 AV G 3.27 AVG 4.97 AVG 4.44 2X AVG 9.55 2X AVG 7.05 3X AVG 23.39 3X AVG 11.04~~~~~~~~~~ ~~~~~~~ ~~~~~~~~~~~~~~~ ~~~~~~~ ~~~~~~~~~~~~~~~ ~~~~~~[facility] Cholest dang Education (NCEP ) Guidelines:~~~~ ~~~~~~~ ~~~~~~~~~~~~~~~ ~~~~~~~ ~~~~~~~~~~~~~~~ ~~~~~~~ ~~~~~ HDL Cholesterol<4 0mg/dL: HDL Cholesterol (Major risk factor for CHD)>60mg/dL: H DL Cholesterol (Ne gative risk factor for CHD)40-59mg/dL: Borderline Risk L DL Cholesterol<1 00mg/dL : Desirable LDL -C oqdzanhadggkf12 0-159mg /dL: Borderline High Risk LDL-C nljumwllsleoq25 0-189mg /dL: High risk LDL-C concentration H DL-LDL Cholesterol is affected by a n umber of factors such as smoking, age an d sex.~~~~~~~~~~~ ~~~~~~~ ~~~~~~~~~~~~~~~ ~~~~~~~ ~~~~~~~~~~~~~~~ ~~~~~ UA RFLX MICR CULT IF [id number] 02:45:00 Test Item Value Reference Range Interpretation Comments UA COLOR (test code = Colorless Yellow COLU) UA APPEARANCE (test Clear Clear code = APPU) UA GLUCOSE DIPSTICK >=500 (3+) Negative A (test code = DGLUU) UA BILIRUBIN DIPSTICK Negative Negative (test code = BILU) UA KETONE DIPSTICK Negative mg/dL Negative (test code = KETU) UA SPECIFIC GRAVITY 1.020 <1.030 (test code = SGU) UA BLOOD DIPSTICK Negative Negative (test code = MELI) UA PH DIPSTICK (test 7.0 5.0-8.0 code = BARBARA) UA PROTEIN DIPSTICK NEGATIVE mg/dL Negative (test code = PROU) UA UROBILINOGEN Negative mg/dL Negative DIPSTICK (test code = URO) UA NITRITE DIPSTICK Negative Negative (test code = YARI) UA LEUKOCYTE ESTERASE NEGATIVE Negative DIPSTICK (test code = LEUU) UA WBC (test code = 0-3 /HPF <4-5 <10 WBC/ HPF = WBCUR) PYURIA ABSENT URINE CULTURE NOT INDICATED UA RBC (test code = 0-3 /HPF <4-5 RBCU) UA SQUAMOUS CELLS 0-5 (RARE) /HPF 0-5 (RARE) (test code = SQU) UA MUCUS (test code = Rare /LPF <Rare A MUCU) less than 18 yrs old, neutropenic, or urological surgery? NOPrimary Indication for Culture: Dysuria/Frequency- CTA DEBBIE CALVIN W [id number] 02:11:00 FAX: Felton Barreto [phone] [place]: St: [facility] FAX: Tuan Lopez [phone] Name: [facility] Angel : 1990 Age/S: 28/F [address] Unit: [id number] Loc: [place] [address] Phys: Дмитрий Lopez MD Acct: [id number] Dis Date: Status: REG ER PHONE #: [phone] Exam Date: 09/15/2018 0200 FAX #: [phone] Reason: ABD DISTINTION EXAMS: CPT CODE: [id number] CTA ABD PEL W CONT [id number] EXAM: - CTAABD PEL W CONT LOCATION: C3 INDICATION: 28 years -old Female with ABD distention TECHNIQUE: Contrast - IV contrast was given. No oral contrast was given Arterial phase - abdomen and pelvis No delayed phase images were obtained. MIP- co lucía and sagittal planes This exam was performed according to our departmental dose-optimization program, which includes automated exposure control, adjustment of the mA and/or kV according to patient size and/or use of iterative reconstruction technique COMPARISON: None FINDINGS: Statements: None. Thoracic: Included images of the lower chest demonstrate no abnormalities. Hepatobiliary: The liver is enlarged measuring 22.5 cm. Status post cholecystectomy. No biliary dilation. Pancreas: Normal. Spleen: Normal. Adrenals: Normal. Genitourin elena: The kidneys are normal. No evidence of hydronephrosis. Evaluation of the bladder is limited, but no obvious bladder abnormality is present. Gastrointestinal: High density material in the stomach likely reflects ingested contents given that the density is much higher than that of the arterial blood pool. The appendix is not visualized. Vascular: No evidence of aneurysm or dissection. PAGE 1 Signed Report (CONTINUED) FAX: Felton Barreto [phone] [facility] [place]: St: [facility] FAX: Дмитрий Lopez MD [phone] Name: [place] [place] : 1990 Age/S: 28/F [address] Unit: [id number] Loc: [place] [address] Phys: Дмитрий Lopez MD Acct: [id number] Dis Date: Status: REG ER PHONE #: [phone] Exam Date: 09/15/2018 0200 FAX #: [phone] Reason: ABD DISTINTION EXAMS: CPT CODE: [id number] CTA ABD PEL W CONT [id number] <Continued> Lymphatics: No enlarged lymph nodes by CT size criteria. Bones/Soft Tissues: No acute osseous findings. No ventral hernias. Peritoneum/Other: No extraluminal air. No extraluminal fluid. IMPRESSION: No acute findings. No free intra-abdominal fluid. No intra-abdominal solid organ injury. High-density material in the stomach most likely reflects ingested contents due to the density is much higher than that of the arterial blood pool. Hepatomegaly. at 0211 Reported and signed by: Nasir LEWIS, Earle CC: Felton Sanchez DO; Дмитрий Lopez MD Technologist: GRZEGORZ BULLOCK; Malinda Berger; Matt Martinez [facility] Dt/Tm: 09/15/2018 ([email or web address] Orig Print D/T: S: 09/15/2018 (0214 PAGE 2 Signed ReportPROTHROMBIN [id number] 02:02:00 Test Item Value Reference Range Interpretation Comments PROTHROMBIN TIME 9.9 SECONDS 9.2-12.1 N PATIENT (test code = PTP) INTERNATIONAL NORMAL 0.9 The INR is to be used RATIO (test code = only for monitoring INR) ORAL ANTICOAGULANTTH ERAPY. Indicati on INR Value1. Prophylaxis/jeni atment of: Venous Thrombosis, Pul monary Embolism 2.0 - 3.02. Preventi on of systemic emboli sm from: Tiss ue heart valves 2.0 - 3.0 Acute myocardial infa rction (to present systemic emboli sm)* 2.0 - 3.0 Valvular heart disease 2.0 - 3.0 Atrial fibrillation 2.0 - 3.03. [facility] Consultant al prosthetic valv es (high risk) 2.5 - 3.5 * If oral anticoagulant t herapy is elected to preventrecurren t myocardial infa rction, an INR of 2.5-3 .5 isrecommended, consistent with Food and Drug Administrationr ecommen dations. THROMBOPLASTIN TIME [id number] 02:02:00 Test Item Value Reference Range Interpretation Comments THROMBOPLASTIN TIME 22.9 SECONDS 23.4-37.0 L Therap eutic Range PARTIAL (test code = for Hep izabela PTT) EFFECTIVE Heparin IU/mL aPT T Seconds0.3 64.30.7 88.8 COMPREHENSIVE METABOLIC [id number] 01:54:00 Test Item Value Reference Range Interpretation Comments SODIUM (test code = 141 mmol/L 137-145 N NA) POTASSIUM (test code = 4.0 mmol/L 3.4-5.0 N K) CHLORIDE (test code = 105 mmol/L 98-107 N CL) CARBON DIOXIDE (test 20 mmol/L 22-30 L code = CO2) GLUCOSE (test code = 235 mg/dL 74-106 H GLU) BLOOD UREA NITROGEN 9 mg/dL 7-17 N (test code = BUN) GLOMERULAR FILTRATION 127 >60 The es timated RATE (test code = GFR) glome rular filtration rate is compute d usingpatient ra ce, age (>18), sex, and serum creatinin e. If anyof the neede d data elements are mi ssing the Laboratory cannot compute an ho mation of the glomerul ar filtration rate . CREATININE (test code 0.6 mg/dL 0.5-1.0 N = CREAT) TOTAL PROTEIN (test 7.9 g/dL 6.3-8.2 N code = PROT) ALBUMIN (test code = 4.6 g/dL 3.5-5.0 N ALB) CALCIUM (test code = 10.5 mg/dL 8.4-10.2 H CA) BILIRUBIN TOTAL (test 0.4 mg/dL 0.2-1.3 N code = BILT) BILIRUBIN CONJUGATED 0 mg/dL 0-0.3 N ~~~~~~~ ~~~~~~~~~~~~~~ (test code = BILCON) ~~~~~~~ ~~~~~~~~~~~~~~ ~~~~~~~~~~~~~~~ ~~~CON JUGATED BILIRUB IN IS THE REPLACEMENT ASSAY FOR DIRECTBILIRUBIN .~~~~~ ~~~~~~~~~~~~~~~ ~~~~~~ ~~~~~~~~~~~~~~~ ~~~~~~ ~~~~~~~~~~~~~ BILIRUBIN UNCONJUGATED 0 mg/dL 0-1.1 N (test code = BILUNC) SGOT/AST (test code = 19 U/L 15-46 N AST) SGPT/ALT (test code = < 13 U/L 13-69 L ALT) ALKALINE PHOSPHATASE 78 U/L 38-126 N (test code = ALKP) HCG [id number] 01:47:00 Test Item Value Reference Range Interpretation Comments HCG POC (test code <5.0 IU/L 0-4.9 N = HCGPOC) Result s of 5.0-25.0 IU/L a re indeterminate a nd do not ruleout pregnan cy. Because HCG values doub le approximately e very48 hours in a norm al , manjit ents with low levels ofHC G should be resampled and r etested after 48 hours toconfirm . CBC W/AUTO [id number] 01:43:00 Test Item Value Reference Range Interpretation Comments WHITE BLOOD CELL (test code = 6.8 x10 3/uL 5.0-12.0 N WBC) RED BLOOD CELL (test code = 4.39 x10 6/uL 4.20-5.40 N RBC) HEMOGLOBIN (test code = HGB) 14.3 g/dL 12.0-16.0 N HEMATOCRIT (test code = HCT) 42.4 % 36.0-46.0 N MEAN CELL VOLUME (test code = 97 fL 81-99 N MCV) MEAN CELL HGB (test code = MCH) 32.6 pg 27-31 H MEAN CELL HGB CONCENTRATION 33.7 g/dL 33-37 N (test code = MCHC) RED CELL DISTRIBUTION WIDTH 11.7 % 11.5-15.5 N (test code = RDW) PLATELET COUNT (test code = 298 x10 3/uL 130-400 N PLT) MEAN PLATELET VOLUME (test code 10.5 fL 9.4-16.4 N = MPV) NEUTROPHIL % (test code = NT%) 33.7 % 43-65 L IMMATURE GRANULOCYTE % (test 0.3 % 0.0-2.0 N code = IG%) LYMPHOCYTE % (test code = LY%) 49.9 % 20.5-45.5 H MONOCYTE % (test code = MO%) 6.0 % 5.5-11.7 N EOSINOPHIL % (test code = EO%) 9.2 % 0.9-2.9 H BASOPHIL % (test code = BA%) 0.9 % 0.2-1.0 N NUCLEATED RBC % (test code = 0.0 % 0-1.0 N NRBC%) NEUTROPHIL # (test code = NT#) 2.31 x10 3/uL 2.2-4.8 N IMMATURE GRANULOCYTE # (test 0.02 x10 3/uL 0-0.03 N code = IG#) LYMPHOCYTE # (test code = LY#) 3.41 x10 3/uL 1.3-2.9 H MONOCYTE # (test code = MO#) 0.41 x10 3/uL 0.3-0.8 N EOSINOPHIL # (test code = EO#) 0.63 x10 3/uL 0.0-0.2 H BASOPHIL # (test code = BA#) 0.06 x10 3/uL 0.0-0.1 N BEDSIDE [id number] 01:40:00 Test Item Value Reference Range Interpretation Comments BEDSIDE CREATININE (test code = 0.6 mg/dL 0.52-1.04 N CREATBED) COMPREHENSIVE METABOLIC [id number] 00:13:00 Test Item Value Reference Range Interpretation Comments SODIUM (test code = 136 mmol/L 137-145 L NA) POTASSIUM (test code 5.5 mmol/L 3.4-5.0 H IS THE SAMPLE = K) HEMOLYZED?:YESH EMOL YSIS GRADE:2+ CHLORIDE (test code 100 mmol/L 98-107 N = CL) CARBON DIOXIDE (test 25 mmol/L 22-30 N code = CO2) GLUCOSE (test code = 304 mg/dL 74-106 H GLU) BLOOD UREA NITROGEN 14 mg/dL 7-17 N (test code = BUN) GLOMERULAR >=60 max >60 The estimated FILTRATION RATE estimate glomerular (test code = GFR) filtration rate is computed usingpatient ra ce, age (>18), sex, and serum creatinin e. If anyof the ne eded data elements a re missing the Laboratory jennifer ot compute an estimation of t he glomerular filtration rate . CREATININE (test 0.5 mg/dL 0.5-1.0 N code = CREAT) TOTAL PROTEIN (test 7.4 g/dL 6.3-8.2 N code = PROT) ALBUMIN (test code = 4.5 g/dL 3.5-5.0 N ALB) CALCIUM (test code = 9.5 mg/dL 8.4-10.2 N CA) BILIRUBIN TOTAL 0.8 mg/dL 0.2-1.3 N (test code = BILT) BILIRUBIN CONJUGATED 0 mg/dL 0-0.3 N ~~~~~~~ ~~~~~~~~~~~~ (test code = BILCON) ~~~~~~~ ~~~~~~~~~~~~ ~~~~~~~~~~~~~~~ ~~~~ ~~~CONJUGATED BILIRUBIN IS TH E REPLACEMENT ASS AY FOR DIRECTBILIRUBIN .~~~ ~~~~~~~~~~~~~~~ ~~~~ ~~~~~~~~~~~~~~~ ~~~~ ~~~~~~~~~~~~~~~ ~~~~ BILIRUBIN 0.1 mg/dL 0-1.1 N UNCONJUGATED (test code = BILUNC) SGOT/AST (test code 62 U/L 15-46 H = AST) SGPT/ALT (test code 27 U/L 13-69 N = ALT) ALKALINE PHOSPHATASE 65 U/L 38-126 N (test code = ALKP) - XR HAND 3 + V [id number] 00:09:00 FAX: Felton Barreto [phone] [facility] [place]: St: REG Name: [facility] Bertram : 1990 Age/S: 27/F [address] Unit#: [id number] Loc: [place] [address] Phys: Ro Carter ANP Acct: [id number] Dis Date: Status: REG ER PHONE #: [phone] Exam Date: 07/13/2018 2352 FAX #: [phone] Reason: SWELLING AFTER HAVING IV EXAMS: CPT CODE: [id number] XR HAND 3 + [place] [id number] AFTER HOURS SERVICE ON: 07/14/2018 12:08 AM RightHand, 3 Views Location Code M12 History: SWELLING AFTER HAVING IV Findings: There is soft tissue swelling in the dorsum at the level of themetacarpals and carpals. There is no soft tissue emphysema. There is normal anatomic alignment. No fracture, dislocation or avulsion fragments are seen. Articular surfaces are within normal limits. Impression: Moderate dorsal soft tissue swelling. No soft tissue emphysema or osseous abnormality. at 0009 Reported and signed by: aVlencia Wood MD CC: Felton Sanchez DO Technologist: Andres Arguellesrd Date/Time/By: 07/14/2018 (0009) : By: [email or web address] PAGE 1 Signed Report FAX: Felton Barreto [phone] [facility] [place]: St: REG Name: [facility] Angel : 1990 Age/S: 27/F [address] Unit #: [id number] Loc: [place] [address] Phys: Ro Carter Acct: [id number] Dis Date: Status: REG ER PHONE #: [phone] Exam Date: 07/13/2018 9745 FAX #: [phone] Reason: SWELLING AFTER HAVING IV EXAMS: CPT CODE: [id number] XR HAND 3 + V RT [id number] <Continued> Orig Print D/T: S: 07/14/2018 (0012) PAGE 2 Signed ReportCBC W/AUTO [id number] 00:00:00 Test Item Value Reference Range Interpretation Comments WHITE BLOOD CELL (test code = 8.3 x10 3/uL 5.0-12.0 N WBC) RED BLOOD CELL (test code = 4.02 x10 6/uL 4.20-5.40 L RBC) HEMOGLOBIN (test code = HGB) 13.7 g/dL 12.0-16.0 N HEMATOCRIT (test code = HCT) 39.7 % 36.0-46.0 N MEAN CELL VOLUME (test code = 99 fL 81-99 N MCV) MEAN CELL HGB (test code = MCH) 34.1 pg 27-31 H MEAN CELL HGB CONCENTRATION 34.5 g/dL 33-37 N (test code = MCHC) RED CELL DISTRIBUTION WIDTH 11.5 % 11.5-15.5 N (test code = RDW) PLATELET COUNT (test code = 284 x10 3/uL 130-400 N PLT) MEAN PLATELET VOLUME (test code 10.6 fL 9.4-16.4 N = MPV) NEUTROPHIL % (test code = NT%) 42.3 % 43-65 L IMMATURE GRANULOCYTE % (test 0.5 % 0.0-2.0 N code = IG%) LYMPHOCYTE % (test code = LY%) 39.1 % 20.5-45.5 N MONOCYTE % (test code = MO%) 6.5 % 5.5-11.7 N EOSINOPHIL % (test code = EO%) 10.5 % 0.9-2.9 H BASOPHIL % (test code = BA%) 1.1 % 0.2-1.0 H NEUTROPHIL # (test code = NT#) 3.51 x10 3/uL 2.2-4.8 N IMMATURE GRANULOCYTE # (test 0.04 x10 3/uL 0-0.03 H code = IG#) LYMPHOCYTE # (test code = LY#) 3.24 x10 3/uL 1.3-2.9 H MONOCYTE # (test code = MO#) 0.54 x10 3/uL 0.3-0.8 N EOSINOPHIL # (test code = EO#) 0.87 x10 3/uL 0.0-0.2 H BASOPHIL # (test code = BA#) 0.09 x10 3/uL 0.0-0.1 N [id number] 12:25:00 Test Item Value Reference Range Interpretation Comments GLUBED (test code = GLUBED) 281 MG/DL 74-106 H PROCALCITONIN (PCT)2018-07-12 09:16:00 Test Item Value Reference Range Interpretation Comments PROCALCITONIN (PCT) 0.32 NG/ML (test code = PROCAL) Procalcito rey (PCT) Normal Va lue: <0.05 NG/ML <0. 5 NG/ML - low risk of s evere sepsis and/or s eptic shock>2.0 NG/ML - high risk of severe sepsis and/or septic s hock PCT concentrations between 0.5 and 2.0 NG/ ML should beinterp reted taking into acc ount the patient's histo ry.It is recommended to retest PCT within 6-24 hours if anyconcentra tions between 0.5-2.0 NG/ML are obtained. HGBA1C - GLYCOSYLATED [id number] 08:47:00 Test Item Value Reference Range Interpretation Comments GLYCOSYLATED 11.7 % 0-5.9 H Current guideli ellen HEMOGLOBIN (HA1C) recommend a treatment goal (test code = GLYHGB) of <7% fordiabetic patients. A1c may be overestimated i n diabeticpatient s exhibiting poor control an d who are alsoheterozygou s or homozygous for HgbS or HgbC. Totalgly cohemoglobin is a better ind icator of diabetic contro l inpatients with these hemo globin variants. BASIC METABOLIC [id number] 08:43:00 Test Item Value Reference Range Interpretation Comments SODIUM (test code 139 mmol/L 137-145 N = NA) POTASSIUM (test 3.8 mmol/L 3.4-5.0 N code = K) CHLORIDE (test 107 mmol/L 98-107 N code = CL) CARBON DIOXIDE 22 mmol/L 22-30 N (test code = CO2) GLUCOSE (test code 125 mg/dL 74-106 H = GLU) BLOOD UREA 13 mg/dL 7-17 N NITROGEN (test code = BUN) GLOMERULAR >=60 max >60 The estimated FILTRATION RATE estimate glomerular (test code = GFR) filtration rate is computed usingpatient ra ce, age (>18), sex, and serum creatinin e. If anyof the neede d data elements a re missing the Laboratory jennifer ot compute an estimation of t he glomerular filtration rate . CREATININE (test 0.5 mg/dL 0.5-1.0 N code = CREAT) CALCIUM (test code 8.3 mg/dL 8.4-10.2 L = CA) [id number] 08:43:00 Test Item Value Reference Range Interpretation Comments MAGNESIUM (test code = MAG) 1.7 mg/dL 1.6-2.3 N BASIC METABOLIC [id number] 08:42:00 Test Item Value Reference Range Interpretation Comments SODIUM (test code 139 mmol/L 137-145 N = NA) POTASSIUM (test 3.8 mmol/L 3.4-5.0 N code = K) CHLORIDE (test 107 mmol/L 98-107 N code = CL) CARBON DIOXIDE 22 mmol/L 22-30 N (test code = CO2) GLUCOSE (test code 125 mg/dL 74-106 H = GLU) BLOOD UREA 13 mg/dL 7-17 N NITROGEN (test code = BUN) GLOMERULAR >=60 max >60 The estimated FILTRATION RATE estimate glomerular (test code = GFR) filtration rate is computed usingpatient ra ce, age (>18), sex, and serum creatinin e. If anyof the neede d data elements a re missing the Laboratory jennifer ot compute an estimation of t he glomerular filtration rate . CREATININE (test 0.5 mg/dL 0.5-1.0 N code = CREAT) CALCIUM (test code 8.3 mg/dL 8.4-10.2 L = CA) [id number] 08:42:00 Test Item Value Reference Range Interpretation Comments MAGNESIUM (test code = MAG) mg/dL 1.6-2.3 LACTIC [id number] 08:42:00 Test Item Value Reference Range Interpretation Comments LACTIC ACID (test code = LACT) 1.9 mmol/L 0.7-2.0 N CBC W/AUTO [id number] 08:22:00 Test Item Value Reference Range Interpretation Comments WHITE BLOOD CELL (test code = 6.3 x10 3/uL 5.0-12.0 N WBC) RED BLOOD CELL (test code = 3.92 x10 6/uL 4.20-5.40 L RBC) HEMOGLOBIN (test code = HGB) 13.1 g/dL 12.0-16.0 N HEMATOCRIT (test code = HCT) 40.0 % 36.0-46.0 N MEAN CELL VOLUME (test code = 102 fL 81-99 H MCV) MEAN CELL HGB (test code = MCH) 33.4 pg 27-31 H MEAN CELL HGB CONCENTRATION 32.8 g/dL 33-37 L (test code = MCHC) RED CELL DISTRIBUTION WIDTH 11.6 % 11.5-15.5 N (test code = RDW) PLATELET COUNT (test code = 249 x10 3/uL 130-400 N PLT) MEAN PLATELET VOLUME (test code 10.7 fL 9.4-16.4 N = MPV) NEUTROPHIL % (test code = NT%) 33.0 % 43-65 L IMMATURE GRANULOCYTE % (test 0.3 % 0.0-2.0 N code = IG%) LYMPHOCYTE % (test code = LY%) 46.7 % 20.5-45.5 H MONOCYTE % (test code = MO%) 7.6 % 5.5-11.7 N EOSINOPHIL % (test code = EO%) 11.1 % 0.9-2.9 H BASOPHIL % (test code = BA%) 1.3 % 0.2-1.0 H NUCLEATED RBC % (test code = 0.0 % 0-1.0 N NRBC%) NEUTROPHIL # (test code = NT#) 2.07 x10 3/uL 2.2-4.8 L IMMATURE GRANULOCYTE # (test 0.02 x10 3/uL 0-0.03 N code = IG#) LYMPHOCYTE # (test code = LY#) 2.93 x10 3/uL 1.3-2.9 H MONOCYTE # (test code = MO#) 0.48 x10 3/uL 0.3-0.8 N EOSINOPHIL # (test code = EO#) 0.70 x10 3/uL 0.0-0.2 H BASOPHIL # (test code = BA#) 0.08 x10 3/uL 0.0-0.1 N [id number] 07:16:00 Test Item Value Reference Range Interpretation Comments GLUBED (test code = GLUBED) 68 MG/DL 74-106 L [id number] 07:16:00 Test Item Value Reference Range Interpretation Comments GLUBED (test code = GLUBED) 71 MG/DL 74-106 L DRUGS OF ABUSE [id number] 03:42:00 Test Item Value Reference Range Interpretation Comments TRICYCLICS QL SQN (test NEGATIVE NEG TEST PERFORMED code = TRIUR) MANUALLY USING Inflection RAPIDTEST TCA.C UTOFF >/= 1000 NG/ML A Positive drug s creen result provides only a "PreliminaryPos itive" test result.If a confirmation of positive result is necessary, a morespecific confirmatory te st must be ordered by the physician. Drug screens are per formed for medical (i. e. treatment)purpo ses only. Unconfirm ed screening resul ts must not beused for non-medical pur poses (e.g employment testing). UR COCAINE (test code = NEGATIVE NEGATIVE CUTO FF >/= 300 NG/ML COCAU) UR THC CANABINOIDS QL NEGATIVE NEGATIVE CUTOFF >/= 20 NG/ML SQN (test code = CANU) UR AMPHETAMINE QL SQN NEGATIVE NEGATIVE CUTOFF >/= 500 NG/ML (test code = AMPHU) UR BARBITURATE QUAL NEGATIVE NEGATIVE CUTOFF >/= 200 NG/ML (test code = BARBQLU) UR BENZODIAZEPINE (test POSITIVE NEGATIVE CUTO FF >/= 200 NG/ML code = BENZU) UR OPIATES QUAL (test NEGATIVE NEGATIVE CUTOFF >/= 2000 NG/ML code = OPIAQLU) UR PHENCYCLIDINE (PCP) NEGATIVE NEGATIVE CUTOF F >/= 25 NG/ML (test code = PHENCU) UA RFLX MICR CULT IF [id number] 03:27:00 Test Item Value Reference Range Interpretation Comments UA COLOR (test code = Yellow Yellow COLU) UA APPEARANCE (test Clear Clear code = APPU) UA GLUCOSE DIPSTICK >=500 (3+) Negative A (test code = DGLUU) UA BILIRUBIN DIPSTICK Negative Negative (test code = BILU) UA KETONE DIPSTICK Negative mg/dL Negative (test code = KETU) UA SPECIFIC GRAVITY 1.041 <1.030 A (test code = SGU) UA BLOOD DIPSTICK Negative Negative (test code = MELI) UA PH DIPSTICK (test 7.0 5.0-8.0 code = BARBARA) UA PROTEIN DIPSTICK NEGATIVE mg/dL Negative (test code = PROU) UA UROBILINOGEN Negative mg/dL Negative DIPSTICK (test code = URO) UA NITRITE DIPSTICK Negative Negative (test code = YARI) UA LEUKOCYTE ESTERASE TRACE Negative A DIPSTICK (test code = LEUU) UA WBC (test code = 6-10 /HPF <4-5 A <10 WBC/ HPF = WBCUR) PYURIA ABSENT URINE CULTURE NOT INDICATED UA RBC (test code = 0-3 /HPF <4-5 RBCU) UA BACTERIA (test Rare /HPF None-Rare code = BACU) UA SQUAMOUS CELLS 0-5 (RARE) /HPF 0-5 (RARE) (test code = SQU) SOURCE OF URINE: CLEAN CATCHless than 18 yrs old, neutropenic, or urological surgery? NOPrimary Indication for Culture: OtherOther Indication: .UR HCG QUAL 2018-07-12 03:26:00 Test Item Value Reference Range Interpretation Comments UR HCG QUAL (test code = HCGQLU) NEGATIVE NEGATIVE DRUGS OF ABUSE [id number] 03:21:00 Test Item Value Reference Range Interpretation Comments TRICYCLICS QL SQN (test NEGATIVE NEG TEST PERFORMED code = TRIUR) MANUALLY USING Inflection RAPIDTEST TCA.C UTOFF >/= 1000 NG/ML A Positive drug s creen result provides only a "PreliminaryPos itive" test result.If a confirmation of positive result is necessary, a morespecific confirmatory te st must be ordered by the physician. Drug screens are per formed for medical (i. e. treatment)purpo ses only. Unconfirm ed screening resul ts must not beused for non-medical pur poses (e.g employment testing). UR COCAINE (test code = NEGATIVE COCAU) UR THC CANABINOIDS QL NEGATIVE SQN (test code = CANU) UR AMPHETAMINE QL SQN NEGATIVE (test code = AMPHU) UR BARBITURATE QUAL NEGATIVE (test code = BARBQLU) UR BENZODIAZEPINE (test NEGATIVE code = BENZU) UR OPIATES QUAL (test NEGATIVE code = OPIAQLU) UR PHENCYCLIDINE (PCP) NEGATIVE (test code = PHENCU) - CT ABD PELVIS [id number] 02:46:00 FAX: Felton Barreto [phone] [place]: St: REG Name: [facility] : 1990 Age/S: 27/F [id number] Unit: [id number] Loc: [place] [address] Phys: Kathleen Napoles MD Acct: [id number] Dis Date: Status: REG E R PHONE #: [phone] Exam Date: 07/12/2018217 FAX #: [phone] Reason: abd pain, lactate, ams EXAMS: CPT CODE: [id number] CT ABD PELVIS W/CONT [id number] EXAM: - CT ABD PELVIS W/CONT HISTORY: Abdominalpain. AMS. TECHNIQUE: Axial tomograms through the abdomen and pelvis were obtained after intravenous contrast. Coronal and sagittal reformatted images are provided. This exam was performed according to our departmental dose-optimization program, which includes automated exposure control, adjustment of the mA and/or kV according to patient size and/or use of iterative reconstruction technique. COMPARISON: None available time of interpretation. FINDINGS: The visualized lung bases are clear. Status post cholecystectomy. The liver, spleen, pancreas, adrenal glands and kidneys demonstrate no significant abnormalities. The appendix is surgically absent. The colonis filled with retained fecal matter throughout its length. There is no adenopathy or free fluid. There is no acute osseous abnormality. IMPRESSION: No significant abnormalities demonstrated. at 0246 Reported and signed by: Benjamin Machuca MD PAGE 1 Signed Report (CONTINUED) FAX: Felton Barreto [phone] [facility]: St: REG Name: PAVEL FRANCO [facility] : 1990 Age/S: 27/F [address] Unit: [id number] Loc: [place] [address] Phys: Kathleen Napoles MD Acct: [id number] Dis Date: Status: REG E R PHONE #: [phone] Exam Date: 07/12/2018 021 FAX #: [phone] Reason: abd pain, lactate, ams EXAMS: CPT CODE: [id number] CT ABD PELVIS W/CONT 18960 <Continued> CC: Felton Sanchez DO Technologist: Yumiko Capone Dt/Tm: 07/12/2018 (024) [email or web address] Orig Print D/T: S: 07/12/2018 (0027 PAGE 2 Signed [id number] 02:35:00 Test Item Value Reference Range Interpretation Comments ACETAMINOPHEN (test code = ACET) <10 ug/mL 10-30 L [id number] 02:35:00 Test Item Value Reference Range Interpretation Comments SALICYLATE (test code < 1.0 mg/dL Negati ve <2.0 = NAVDEEP) mg/dLTherapeuti c Range <20 mg/dL [id number] 02:35:00 Test Item Value Reference Range Interpretation Comments ALCOHOL (test code = < 10 mg/dL <10 ALC) ~~~~~~~~~~~~~~~ ~~~~~~~ ~~~~~~~~~~~~~~~ ~~~~~~~ ~~~~~~ RESU LTS ARE TO BE USED FOR MEDICAL PURPOSES ONLY.F OR LEGAL PURPOSES THE SPECIMEN MUST B E COLLECTED BY A CHAINOF CUSTODY. LEGAL TESTING IS NOT PERFORME D BY THIS FACILITY. ~~~~~~~~~~~~~~~ ~~~~~~~ ~~~~~~~~~~~~~~~ ~~~~~~~ ~~~~~~ LACTIC ACID [id number] 02:12:00 Test Item Value Reference Range Interpretation Comments LACTIC ACID POC (test code = 0.98 mmol/L 0.7-2.0 N LACTP) [id number] 02:10:00 Test Item Value Reference Range Interpretation Comments GLUBED (test code = GLUBED) 71 MG/DL 74-106 L [id number] 02:10:00 Test Item Value Reference Range Interpretation Comments GLUBED (test code = GLUBED) 83 MG/DL 74-106 N [id number] 02:10:00 Test Item Value Reference Range Interpretation Comments GLUBED (test code = 530 MG/DL 74-106 HH Read Mathew k to GLUBED) A VENOUS SPECIMEN SHOULD BE ORDERED FOR GLUCOSE VERIFIC ATION IF MED ICALLY NECESSARY. HCG [id number] 01:29:00 Test Item Value Reference Range Interpretation Comments HCG POC (test code <5.0 IU/L 0-4.9 N = HCGPOC) Result s of 5.0-25.0 IU/L a re indeterminate a nd do not ruleout pregnan cy. Because HCG values doub le approximately e very48 hours in a norm al , majnit ents with low levels ofHC G should be resampled and r etested after 48 hours toconfirm . - XR ABDOMEN 1 [id number] 01:09:00 FAX: Felton Barreto [phone] [facility]: St: REG Name: PAVEL FRANCO [facility] : 1990 Age/S: 27/F [address] Unit#: [id number] Loc: [place] [address] Phys: Kathleen Napoles MD Acct: [id number] Dis Date: Status: REG ER PHONE #: [phone] Exam Date: 07/12/201844 FAX #: [phone] Reason: abd distension EXAMS: CPT CODE: [id number] XR ABDOMEN 1 V 29641 EXAM: ABDOMINAL SERIES HISTORY: abd distension TECHNIQUE: Supine and erect views of the abdomen. COMPARISON: None. FINDINGS: Moderate formed fecal matter is present in the colon. No abnormal bowel dilatation is present. No air-fluid levels or evidence of pneumoperitoneum . Surgicalclips are noted in the right upper quadrant. The visualized lung base is clear. The osseous structures are intact. IMPRESSION: Radiographic findings consistent with constipation. Otherwise unremarkable exam demonstrating a nonobstructive bowel gas pattern. at 0109 Reported and signed by: Glenna Hill MD CC: Felton Sanchez DO Technologist: Andres Arguelles Trnscrd Date/Time/By: 07/12/2018 (0109) : By: [email or web address] PAGE 1 Signed Report FAX: Felton Barreto [phone] [facility]: St: REG Name: PAVEL FRANCO [facility] : 1990 Age/S: 27/F [address] Unit #: [id number] Loc: [place] [address] Phys: Kathleen Napoles MD Acct: [id number] Dis Date: Status: REG ER PHONE #: [phone] Exam Date: 07/12/201844 FAX #: [phone] Reason: abd distension EXAMS: CPT CODE: [id number] XR ABDOMEN 1 V 76802 <Continued> Orig Print D/T: S: 07/12/2018 (0112) PAGE 2 Signed ReportBASIC METABOLIC [id number] 00:44:00 Test Item Value Reference Range Interpretation Comments SODIUM (test code 138 mmol/L 137-145 N = NA) POTASSIUM (test 5.7 mmol/L 3.4-5.0 H IS THE SAMPL E code = K) HEMOLYZED?:YESH EMOLY SIS GRADE:2+ CHLORIDE (test 100 mmol/L 98-107 N code = CL) CARBON DIOXIDE 23 mmol/L 22-30 N (test code = CO2) GLUCOSE (test code 419 mg/dL 74-106 HH Critical Value = GLU) reported toFirs t Name:[id number] La st Name:RESULTS RE AD BACK AND RYAN ZURITA.MALACHI, on 07/12/18, @ 000 9. BLOOD UREA 15 mg/dL 7-17 N NITROGEN (test code = BUN) GLOMERULAR >=60 max >60 The estimated FILTRATION RATE estimate glomerular (test code = GFR) filtration rate is computed usingpatient ra ce, age (>18), sex, and serum creatinin e. If anyof the neede d data elements a re missing the Laboratory jennifer ot compute an estimation of t he glomerular filtration rate . CREATININE (test 0.7 mg/dL 0.5-1.0 N code = CREAT) CALCIUM (test code 9.7 mg/dL 8.4-10.2 N = CA) LIVER FUNCTION [id number] 00:44:00 Test Item Value Reference Range Interpretation Comments TOTAL PROTEIN (test 8.0 g/dL 6.3-8.2 N code = PROT) ALBUMIN (test code = 4.8 g/dL 3.5-5.0 N ALB) BILIRUBIN TOTAL (test 0.8 mg/dL 0.2-1.3 N code = BILT) BILIRUBIN CONJUGATED 0 mg/dL 0-0.3 N ~~~~~~~ ~~~~~~~~~~~~~~ (test code = BILCON) ~~~~~~~ ~~~~~~~~~~~~~~ ~~~~~~~~~~~~~~~ ~~~CON JUGATED BILIRUB IN IS THE REPLACEMENT ASSAY FOR DIRECTBILIRUBIN .~~~~~ ~~~~~~~~~~~~~~~ ~~~~~~ ~~~~~~~~~~~~~~~ ~~~~~~ ~~~~~~~~~~~~~ BILIRUBIN UNCONJUGATED 0.1 mg/dL 0-1.1 N (test code = BILUNC) SGOT/AST (test code = 38 U/L 15-46 N AST) SGPT/ALT (test code = 21 U/L 13-69 N ALT) ALKALINE PHOSPHATASE 74 U/L 38-126 N (test code = ALKP) [id number] 00:44:00 Test Item Value Reference Range Interpretation Comments PHOSPHOROUS (test code = PHOS) 3.7 mg/dL 2.5-4.5 N [id number] 00:44:00 Test Item Value Reference Range Interpretation Comments LIPASE (test code = LIP) 202 U/L 23-300 N [id number] 00:44:00 Test Item Value Reference Range Interpretation Comments MAGNESIUM (test code = MAG) 1.8 mg/dL 1.6-2.3 N ACETONE [id number] 00:44:00 Test Item Value Reference Range Interpretation Comments ACETONE QUAL NOT APPLICABLE NEGATIVE ACETEST DISCO NTINUED. (test code = BETA-HYDROXYBUT ERATE ACETNQL) TESTING ISRECOM MENDED FOR THE DETECTI ON OF KETOACIDOSIS. LACTIC ACID [id number] 00:25:00 Test Item Value Reference Range Interpretation Comments LACTIC ACID POC (test code = 4.54 mmol/L 0.7-2.0 HH LACTP) PROCALCITONIN (PCT)2018-07-12 00:21:00 Test Item Value Reference Range Interpretation Comments PROCALCITONIN (PCT) 0.47 NG/ML (test code = PROCAL) Procalcito rey (PCT) Normal Va lue: <0.05 NG/ML <0. 5 NG/ML - low risk of s evere sepsis and/or s eptic shock>2.0 NG/ML - high risk of severe sepsis and/or septic s hock PCT concentrations between 0.5 and 2.0 NG/ ML should beinterp reted taking into acc ount the patient's histo ry.It is recommended to retest PCT within 6-24 hours if anyconcentra tions between 0.5-2.0 NG/ML are obtained. BASIC METABOLIC [id number] 00:09:00 Test Item Value Reference Range Interpretation Comments SODIUM (test code 138 mmol/L 137-145 N = NA) POTASSIUM (test 5.7 mmol/L 3.4-5.0 H IS THE SAMPL E code = K) HEMOLYZED?:YESH EMOLY SIS GRADE:2+ CHLORIDE (test 100 mmol/L 98-107 N code = CL) CARBON DIOXIDE 23 mmol/L 22-30 N (test code = CO2) GLUCOSE (test code 419 mg/dL 74-106 HH Critical Value = GLU) reported toFirs t Name:[id number] La st Name:RESULTS RE AD BACK AND RYAN SmithLAB.MALACHI, on 07/12/18, @ 000 9. BLOOD UREA 15 mg/dL 7-17 N NITROGEN (test code = BUN) GLOMERULAR >=60 max >60 The estimated FILTRATION RATE estimate glomerular (test code = GFR) filtration rate is computed usingpatient ra ce, age (>18), sex, and serum creatinin e. If anyof the neede d data elements a re missing the Laboratory jennifer ot compute an estimation of t he glomerular filtration rate . CREATININE (test 0.7 mg/dL 0.5-1.0 N code = CREAT) CALCIUM (test code 9.7 mg/dL 8.4-10.2 N = CA) LIVER FUNCTION [id number] 00:09:00 Test Item Value Reference Range Interpretation Comments TOTAL PROTEIN (test 8.0 g/dL 6.3-8.2 N code = PROT) ALBUMIN (test code = 4.8 g/dL 3.5-5.0 N ALB) BILIRUBIN TOTAL (test 0.8 mg/dL 0.2-1.3 N code = BILT) BILIRUBIN CONJUGATED 0 mg/dL 0-0.3 N ~~~~~~~ ~~~~~~~~~~~~~~ (test code = BILCON) ~~~~~~~ ~~~~~~~~~~~~~~ ~~~~~~~~~~~~~~~ ~~~CON JUGATED BILIRUB IN IS THE REPLACEMENT ASSAY FOR DIRECTBILIRUBIN .~~~~~ ~~~~~~~~~~~~~~~ ~~~~~~ ~~~~~~~~~~~~~~~ ~~~~~~ ~~~~~~~~~~~~~ BILIRUBIN UNCONJUGATED 0.1 mg/dL 0-1.1 N (test code = BILUNC) SGOT/AST (test code = 38 U/L 15-46 N AST) SGPT/ALT (test code = 21 U/L 13-69 N ALT) ALKALINE PHOSPHATASE 74 U/L 38-126 N (test code = ALKP) [id number] 00:09:00 Test Item Value Reference Range Interpretation Comments PHOSPHOROUS (test code = PHOS) 3.7 mg/dL 2.5-4.5 N [id number] 00:09:00 Test Item Value Reference Range Interpretation Comments LIPASE (test code = LIP) 202 U/L 23-300 N [id number] 00:09:00 Test Item Value Reference Range Interpretation Comments MAGNESIUM (test code = MAG) 1.8 mg/dL 1.6-2.3 N ACETONE [id number] 00:09:00 Test Item Value Reference Range Interpretation Comments ACETONE QUAL (test code = ACETNQL) NEGATIVE - CT HEAD/BRAIN W/O [id number] 00:06:00 [facility]: St: PRE Name: PAVEL FRANCO : 1990 Age/S: 27/F [address] Unit: [id number] Loc: [place] [address] Phys: Kathleen Napoles MD Acct: [id number] Dis Date: Status: PRE E R PHONE #: [phone] Exam Date: 07/11/2018 2358 FAX #: [phone] Reason: AMS EXAMS: CPT CODE: [id number] CT HEAD/BRAIN W/O CONT 52372 Exam: CT head without contrast. Location: F6 History: AMS Technique: Unenhanced spiral slices were taken from the base ofthe skull, through the vertex. One or more of the following dose reduction techniques were used: Automated exposure control, adjustment of the mA and/or kV according to patient size, and/or utilization of iterative reconstruction technique. Findings: No acute intracranial abnormality is identified. The brain parenchyma and the CSF spaces are unremarkable. No mass, midline shift, hemorrhage, hydrocephalus or edema is seen. The visualized paranasal sinuses are clear. The mastoid air cells are well pneumatized. The bony calvarium is intact. Impression: No acute intracranial abnormality. at 0006 Reported and signed by:Rafal Longo CC: Technologist: Yumiko Capone Dt/Tm: 07/12/2018 (0006) Brianne Orig Print D/T: S: 07/12/2018 (0009 PAGE 1 Signed Report- XR CHEST 1 [id number] 00:06:00 [facility]: St: PRE Name: PAVEL FRANCO [facility] : 1990 Age/S: 27/F [address] Unit#: [id number] Loc: [place] [address] Phys: Kathleen Napoles MD Acct: [id number] Dis Date: Status: PRE ER PHONE #: [phone] Exam Date: 07/11/2018 2348 FAX #: [phone] Reason: AMS EXAMS: CPT CODE: [id number] XR CHEST 1 V 18886 AP VIEW OF THE CHEST LOCATION: R16 CLINICAL HISTORY: Altered mental status. COMPARISON: Chest radiograph 08/15. FINDINGS: The cardiomediastinal shadow is within normal limits. The lungs are clear. No pleural fluids. No acute bony abnormality is found. IMPRESSION: Unremarkable radiographic study of the chest. at 0006 Reported and signed by: Alice Ortiz CC: Technologist: Andres Arguelles Date/Time/By: 07/12/2018 (0006) : By: Noam PAGE 1 Signed Report [facility]: St: PRE -------- Name: PAVEL FRANCO [facility] : 1990 Age/S: 27/F [address] Unit #: [id number] Loc: [place] [address] Phys: Kathleen Napoles MD Acct: [id number] Dis Date: Status: PRE ER PHONE #: [phone] Exam Date: 07/11/20188 FAX #: [phone] Reason: AMS EXAMS: CPT CODE: [id number] XR CHEST 1 V 09668 <Continued> Orig Print D/T: S: 07/12/2018 (0009) PAGE 2 Signed ReportTROPONIN I [id number] 23:53:00 Test Item Value Reference Range Interpretation Comments TROPONIN I RAPID 0.00 ng/mL 0.00-0.079 N ISTAT (test code = TROPONIN I TROPIRAP) CRITERIA0.00-0. 08 ng/mL - Negative>0.08 n g/mL - Positive The us e of serial sampling and te sting protocol is are commended practice.An mary vated troponin level alone is often not suffi cient fordiagnosis of myocardial infarction. Tro ponin results obtaine d by different assay s may vary.Evaluation of the extent of myoca rdial damage based on increase of troponin would be valid only if similar methodology is used. POC ARTERIAL BLOOD [id number] 23:30:00 Test Item Value Reference Range Interpretation Comments POC ARTERIAL BLOOD GAS PH (test 7.410 7.35-7.45 N code = POCPHA) POC ARTERIAL BLOOD GAS PCO2 (test 32.8 mmHg 35-45 L code = [id number]) POC ARTERIAL BLOOD GAS PO2 (test 108 mmHg 80-90 H code = NTQJY4C) POC HCO3 ARTERIAL (test code = 20.8 mmol/L 22.0-24.0 L [id number]) POC BASE EXCESS (test code = -4 mmol/L -2.0-2.0 L POCBEA) POC O2 SATURATION (test code = 98 % 95-98 N POCO2S) ABG DELIVERY (test code = CANDICE) Room Air ABG SITE (test code = SITEA) R Rad ALLENS TEST (test code = ALLENS) Pass
[2021-09-04] MEDS ORDERED: MORPHINE 4 MG/ML SYR ONE (20:13)
[2021-09-04 20:29] LABS: Urine Blood Negative (Negative); Urine Glucose 3+ (Negative); Urine Protein Negative (Negative); Urine Specific Gravity 1.025 (1.005-1.030)
[2021-09-04 20:32] LABS: Hematocrit 40.9 % (36.0-45.0); Lymphocytes % 35.2 % (15.3-44.8); MPV 8.2 fL (7.6-11.3)
[2021-09-04 20:36] LABS: Urine Bacteria NONE SEEN /HPF (<20); Urine RBC <5 /HPF (NONE SEEN)
[2021-09-04 20:48] LABS: Albumin 4.1 g/dL (3.4-5.0); Bilirubin Total 0.6 mg/dL (0.2-1.0); Potassium 3.8 mmol/L (3.5-5.1); Protein, Total 7.9 g/dL (6.4-8.2)
--- NOTE | 2021-09-04 21:27 | RAD REPORT ---
EXAM DESCRIPTION: CT - Abdomen Pelvis W Contrast - 09/04/2021 9:15 pm CLINICAL HISTORY: Abdominal pain COMPARISON: none. TECHNIQUE: Computed axial tomography of the abdomen pelvis was obtained. 100 cc [id number] was admin istered intravenously. Oral contrast was not requested which limits evaluation of bowel. All CT scans are performed using dose optimization technique as appropriate and may include automated exposure control or mA/KV adjustment according to patient size. FINDINGS: The liver, spleen, pancreas, adrenal and kidneys appear unremarkable. There is no evidence of diverticulitis. A gastric stimulator in place. No adnexal mass. Moderate amount of stool within the colon IMPRESSION: Moderate amount stool within the colon
--- NOTE | 2021-09-04 21:28 | RAD REPORT ---
EXAM DESCRIPTION: US - Pelvis Complete - 09/04/2021 8:49 pm CLINICAL HISTORY: Lower abdominal pain FINDINGS: Evaluation is somewhat limited as the bladder is poorly distended. The uterus measures 10 x 4 x 5 centimeters. Endometrial stripe measures 5 millimeters. A fibroid is n ot seen. Ovaries are normal in size and echotexture. Blood flow is present The right and left adnexae are unremarkable. No significant free fluid IMPRESSION: Unremarkable exam
[2021-09-04] MEDS ORDERED: MEPERIDINE HCL 25 MG/ML SYR ONE (21:42)
[2021-09-04] MEDS ORDERED: D10W 250 ML IV ONE (21:47)
--- NOTE | 2021-09-04 22:16 | ER ---
Nurse's Notes [facility] Name: Mallory Gomez Age: 31 yrs Sex: Female : 1990 Arrival Date: 09/04/2021 Time: 18:09 Bed 15 Private MD: Diagnosis: Abdominal pain, unspecified;Constipation, unspecified Presentation: 09/04 18:44 Chief complaint: Patient states: "On Thursday I started having lower stomach pain, the ab2 pain hasn't gone away and now I have a lump. It even hurts to sit down.". Coronavirus screen: Vaccine status: Patient reports receiving the 1st dose of the Covid vaccine. Client denies travel out of the [place] in the last 14 days. At this time, the client does not indicate any symptoms associated with coronavirus-19. Ebola Screen: Patient negative for fever greater than or equal to 101.5 degrees Fahrenheit, and additional compatible Ebola Virus Disease symptoms Patient denies exposure to infectious person. Patient denies travel to an Ebola-affected area in the 21 days before illness onset. No symptoms or risks identified at this time. Initial Sepsis Screen: Does the patient meet any 2 criteria? No. Patient's initial sepsis screen is negative. Does the patient have a suspected source of infection? No. Patient's initial sepsis screen is negative. Risk Assessment: Do you want to hurt yourself or someone else? Patient reports no desire to harm self or others. Onset of symptoms is unknown. 18:44 Method Of Arrival: Ambulatory ab2 18:44 Acuity: YESICA 3 ab2 Triage Assessment: 18:48 General: Appears in no apparent distress. uncomfortable, Behavior is calm, cooperative, ab2 appropriate for age. Pain: Complains of pain in abdomen. Respiratory: Airway is patent Respiratory effort is even, unlabored, Respiratory pattern is regular, symmetrical. GI: Abdomen is round Reports lower abdominal pain, upper abdominal pain. Historical: - Allergies: 18:46 Humalog; ab2 18:46 Zofran; ab2 18:46 Tramadol HCl; ab2 18:46 PENICILLINS; ab2 18:46 Ibuprofen; ab2 - PMHx: 18:46 Diabetes mellitus; ab2 - PSHx: 18:46 Appendectomy; Cholecystectomy; Gastric Pacemaker; ab2 - Immunization history:: Adult Immunizations up to date. - Social history:: Smoking status: Reported history of juuling and/or vaping. - Family history:: not pertinent. - Hospitalizations: : No recent hospitalization is reported. Screenin:30 Abuse screen: Denies threats or abuse. Denies injuries from another. Nutritional lp1 screening: No deficits noted. Tuberculosis screening: No symptoms or risk factors identified. Fall Risk None identified. Assessment: 20:00 General: Appears uncomfortable, Behavior is appropriate for age. Pain: Complains of lp1 pain in right femoral area and right inguinal area Pain currently is 9 out of 10 on a pain scale. Quality of pain is described as sharp. Neuro: Level of Consciousness is awake, alert, obeys commands. Cardiovascular: Patient's skin is warm and dry. Respiratory: Respiratory effort is even. GI: Abdomen is non-distended. : Denies burning with urination. EENT: No signs and/or symptoms were reported regarding the EENT system. Derm: Skin is pink, warm \\T\\ dry. Musculoskeletal: No deficits noted. 20:40 Reassessment: Ultrasound at bedside. lp1 21:30 Reassessment: Patient returned from CT. lp1 21:45 Reassessment: Patient reports feeling bad, "I think my blood sugar is low"; Blood lp1 glucose check of 35; Provider notified, verbal order given for D10 250ml IV now. 23:10 Reassessment: Patient aware of pending discharge, medication administered, patient lp1 tolerating eating cande crackers and apple juice. 23:22 Reassessment: Patient expresses readiness for discharge, states she will continue to lp1 monitor blood sugar at home. Vital Signs: 18:44 BP 115 / 95; Pulse 108; Resp 18; Temp 98.2; Pulse Ox 100% on R/A; Weight 62.6 kg; ab2 Height 5 ft. 5 in. (165.10 cm); Pain 5/10; 21:22 BP 116 / 86; Pulse 93; Resp 18; Pulse Ox 100% ; Pain 6/10; lp1 23:10 BP 122 / 95; Pulse 84; Resp 16; Pulse Ox 100% on R/A; lp1 18:44 Body Mass Index 22.96 (62.60 kg, 165.10 cm) ab2 ED Course: 18:09 Patient arrived in ED. am2 18:46 Triage completed. ab2 18:48 Arm band placed on right wrist. ab2 19:12 Hector Jefferson MD is Attending Physician. rn 19:33 Stefania Thomson, YVETTE is Primary Nurse. lp1 20:20 Inserted saline lock: 20 gauge in right antecubital area, using aseptic technique. lp1 Blood collected. 20:30 Patient has correct armband on for positive identification. lp1 20:52 US Pelvis Complete In Process Unspecified. EDMS 21:17 CT Abd/Pelvis - IV Contrast Only In Process Unspecified. EDMS 23:22 No provider procedures requiring assistance completed. IV discontinued, No lp1 redness/swelling at site. Pressure dressing applied. Administered Medications: 20:22 Drug: morphine 4 mg Route: IVP; Site: right antecubital; lp1 21:30 Follow up: Response: No adverse reaction; No change in condition lp1 21:45 Drug: D10 in Water [2 mL/kg] 250 ml Route: IVP; Site: right antecubital; lp1 22:30 Follow up: Response: Blood sugar is elevated lp1 22:50 Drug: Demerol (meperidine) 25 mg Route: IVP; Site: right antecubital; lp1 23:28 Follow up: Response: Pain is decreased; Medication administered at discharge. lp1 Outcome: 22:15 Discharge ordered by . rn 23:22 Discharged to home ambulatory, with friend. lp1 23:22 Condition: good 23:22 Discharge instructions given to patient, Instructed on discharge instructions, follow up and referral plans. Demonstrated understanding of instructions, follow-up care. 23:23 Patient left the ED. lp1 Signatures: Dispatcher [employer] EDMS Hector Jefferson MD MD rn Pena, Laura, YVETTE RN lp1 Ashley Valle am2 Sid Mckay ab2 Corrections: (The following items were deleted from the chart) 21:26 21:22 BP 116 / 86; Pulse 93bpm; Resp 18bpm; Pulse Ox 100%; lp1 lp1 23:31 23:10 Reassessment: Patient aware of pending discharge, medication administered, lp1 patient tolerating eating cande crackers and lp1
--- NOTE | 2021-09-04 22:16 | EDPHYS ---
Physician Documentation [facility] Name: Mallory Gomez Age: 31 yrs Sex: Female : 1990 Arrival Date: 09/04/2021 Time: 18:09 Bed 15 Private MD: ED Physician Hector Jefferson HPI: 09/04 19:59 This 31 yrs old Female presents to ER via Ambulatory with complaints of lower right rn pain and swelling. 19:59 The patient presents with abdominal pain right lower quadrant, pelvic. Onset: The rn symptoms/episode began/occurred 2 day(s) ago. The symptoms do not radiate. Associated signs and symptoms: Pertinent positives: constipation, Pertinent negatives: nausea and vomiting, anorexia, blood in stools, fever, hematuria, vaginal discharge, vomiting blood. The symptoms are described as sharp, stabbing. Modifying factors: The symptoms are alleviated by nothing, the symptoms are aggravated by movement, touching the area. Severity of pain: At its worst the pain was moderate in the emergency department the pain is unchanged. The patient has not experienced similar symptoms in the past. The patient has not recently seen a physician. Pt reports RLQ/pelvic pain, began 2 days ago, no fever/vomiting/diarrhea. + constipation. LMP last week. + hx of ovarian cyst. NO hx of kidney stones. NO trauma. NO vaginal discharge. Has had multiple abd surgeries including cholecystectomy and appendectomy. . Historical: - Allergies: 18:46 Humalog; ab2 18:46 Zofran; ab2 18:46 Tramadol HCl; ab2 18:46 PENICILLINS; ab2 18:46 Ibuprofen; ab2 - PMHx: 18:46 Diabetes mellitus; ab2 - PSHx: 18:46 Appendectomy; Cholecystectomy; Gastric Pacemaker; ab2 - Immunization history:: Adult Immunizations up to date. - Social history:: Smoking status: Reported history of juuling and/or vaping. - Family history:: not pertinent. - Hospitalizations: : No recent hospitalization is reported. ROS: 19:59 Constitutional: Negative for fever, chills, and weight loss, Eyes: Negative for injury, rn pain, redness, and discharge, Neck: Negative for injury, pain, and swelling, Cardiovascular: Negative for chest pain, palpitations, and edema, Respiratory: Negative for shortness of breath, cough, wheezing, and pleuritic chest pain, Abdomen/GI: + right lower abd pain, + constipation Back: Negative for injury and pain, : Negative for injury, bleeding, discharge, and swelling, MS/Extremity: Negative for injury and deformity, Skin: Negative for injury, rash, and discoloration, Neuro: Negative for headache, weakness, numbness, tingling, and seizure. Exam: 19:59 Constitutional: This is a well developed, well nourished patient who is awake, alert, rn appears in pain Head/Face: Normocephalic, atraumatic. Eyes: Periorbital areas with no swelling, redness, or edema. ENT: MMM Cardiovascular: Tachycardic, regular Respiratory: Speaking full sentences, unlabored. No increased work of breathing, no retractions or nasal flaring. Abdomen/GI: soft, + palpable left mid abdominal pacemaker, + RLQ tenderness with guarding Skin: Warm, dry MS/ Extremity: Pulses equal, no cyanosis. Neuro: Awake and alert, GCS 15 Vital Signs: 18:44 BP 115 / 95; Pulse 108; Resp 18; Temp 98.2; Pulse Ox 100% on R/A; Weight 62.6 kg; ab2 Height 5 ft. 5 in. (165.10 cm); Pain 5/10; 21:22 BP 116 / 86; Pulse 93; Resp 18; Pulse Ox 100% ; Pain 6/10; lp1 23:10 BP 122 / 95; Pulse 84; Resp 16; Pulse Ox 100% on R/A; lp1 18:44 Body Mass Index 22.96 (62.60 kg, 165.10 cm) ab2 MDM: 19:12 Patient medically screened. rn 22:14 Differential diagnosis: bowel obstruction, diverticulitis, Endometriosis, non-specific rn abd pain, Ovarian Torsion, Tubal Ovarian Abcess, Ureterolithiasis, urinary tract infection. Data reviewed: vital signs, nurses notes, lab test result(s), radiologic studies, CT scan, ultrasound, and as a result, I will discharge patient. Counseling: I had a detailed discussion with the patient and/or guardian regarding: the historical points, exam findings, and any diagnostic results supporting the discharge/admit diagnosis, lab results, radiology results, the need for outpatient follow up, to return to the emergency department if symptoms worsen or persist or if there are any questions or concerns that arise at home. Response to treatment: the patient's symptoms have markedly improved after treatment, and as a result, I will discharge patient. Special discussion: Based on the patient's Hx, exam, and Dx evaluation, there is no indication for emergent surgery or inpatient Tx. It is understood by the patient/guardian that if the Sx's persist or worsen they need to return immediately for re-evaluation. I discussed with the patient/guardian in detail that at this point there is no indication for admission to the hospital. It is understood, however, that if the symptoms persist or worsen the patient needs to return immediately for re-evaluation. ED course: NO acute findings in CT abdomen or u/s. Clean urine. GLucose was normal then dropped since insulin pump still going, given glucose infusion and will have patient eat. Will dc home with return precautions.. 09/04 19:38 Order name: CBC with Diff; Complete Time: 20:57 rn 09/04 19:38 Order name: CMP; Complete Time: 20:57 rn 09/04 19:38 Order name: Lipase; Complete Time: 20:57 rn 09/04 19:38 Order name: Urine Microscopic Only; Complete Time: 20:57 rn 09/04 20:29 Order name: Urine --Ancillary (enter results) ds4 09/04 20:30 Order name: Urine Dipstick-Ancillary; Complete Time: 20:34 EDMS 09/04 19:38 Order name: CT Abd/Pelvis - IV Contrast Only; Complete Time: 21:29 rn 09/04 19:38 Order name: IV Saline Lock; Complete Time: 20:30 rn 09/04 19:38 Order name: US Pelvis Complete; Complete Time: 21:29 rn 09/04 21:54 Order name: Glucose, Ancillary Testing; Complete Time: 21:57 EDMS 09/04 22:38 Order name: Glucose, Ancillary Testing EDIL 09/04 19:38 Order name: Labs collected and sent; Complete Time: 20:30 rn 09/04 19:38 Order name: Urine Dipstick-Ancillary (obtain specimen); Complete Time: 20:29 rn 09/04 19:38 Order name: Urine Test (obtain specimen); Complete Time: 20:29 rn Administered Medications: 20:22 Drug: morphine 4 mg Route: IVP; Site: right antecubital; lp1 21:30 Follow up: Response: No adverse reaction; No change in condition lp1 21:45 Drug: D10 in Water [2 mL/kg] 250 ml Route: IVP; Site: right antecubital; lp1 22:30 Follow up: Response: Blood sugar is elevated lp1 22:50 Drug: Demerol (meperidine) 25 mg Route: IVP; Site: right antecubital; lp1 23:28 Follow up: Response: Pain is decreased; Medication administered at discharge. lp1 Disposition Summary: 09/04/21 22:15 Discharge Ordered Location: Home rn Problem: new rn Symptoms: have improved rn Condition: Stable rn Diagnosis - Abdominal pain, unspecified rn - Constipation, unspecified rn Followup: rn - With: Private Physician - When: As needed - Reason: Recheck today's complaints, Re-evaluation by your physician Discharge Instructions: - Discharge Summary Sheet rn - Abdominal Pain, Adult rn - Constipation, Adult rn Forms: - Medication Reconciliation Form rn - Thank You Letter rn - Antibiotic undergraduate intern - Prescription Opioid Use rn Signatures: Dispatcher [employer] EDHector Shelton MD MD rn Pena, Laura, RN RN lp1 Sid Mckay2 Corrections: (The following items were deleted from the chart) 20:01 19:59 Pt reports RLQ/pelvic pain, began 2 days ago, no fever/vomiting/diarrhea. + rn constipation. LMP last week. + hx of ovarian cyst. NO hx of kidney stones. NO trauma. NO vaginal discharge. . rn
[2021-09-04 22:44] LABS: Urine Specific Gravity/Preg 1.025 (1.005-1.030)
[2021-09-05 05:39] VITALS: TEMP 98.2; O2SAT 100
[2021-09-05 05:41] VITALS: BP 116/86
== END 2021-09-04 23:23 | disposition home or self-care (01) ==
LOC: ER 17:57
DX: K59.00 Constipation, unspecified (principal); E11.9 Type 2 diabetes mellitus without complications; Z88.0 Allergy status to penicillin; Z88.6 Allergy status to analgesic agent; Z88.8 Allergy status to other drugs, medicaments and biological substances
CPT/HCPCS: 85025; 36415; 81025; 82947 ×3; 83690; 80053; 74177; 76856; 96375; 96374; 99284; Q9967; J2175; 81003; 81015

== ENCOUNTER 2021-11-19 11:49 | Emergency (ER) | payer OTHER ==
[2021-11-19 12:50] LABS: Urine Blood 3+ (Negative); Urine Glucose 2+ (Negative); Urine Protein 1+ (Negative)
[2021-11-19] MEDS ORDERED: FAMOTIDINE 20 MG/2 ML VIAL IV ONE (12:52)
[2021-11-19] MEDS ORDERED: Ringers Lactate 1,000 ML IV ONE (12:52)
[2021-11-19 13:22] LABS: Absolute Lymphocytes (CBC) 1.8 K/uL (0.7-4.9); Hematocrit 42.1 % (36.0-45.0); Lymphocytes % 32.4 % (15.3-44.8); MCV 98.3 fL (80-100); MPV 8.4 fL (7.6-11.3); RBC Red Blood Cell Count 4.29 M/uL (3.86-4.86)
[2021-11-19 13:32] LABS: Urine Bacteria 20-50 /HPF (<20); Urine Mucus S /HPF (NONE SEEN); Urine RBC <5 /HPF (NONE SEEN)
[2021-11-19 13:44] LABS: Albumin 3.9 g/dL (3.4-5.0); Bilirubin Total 0.3 mg/dL (0.2-1.0); Potassium 4.2 mmol/L (3.5-5.1); Protein, Total 7.6 g/dL (6.4-8.2)
[2021-11-19] MEDS ORDERED: MORPHINE 4 MG/ML SYR ONE ×2 (14:10→14:16)
[2021-11-19] MEDS ORDERED: ONDANSETRON 4 MG/2 ML VIAL ONE (14:10)
[2021-11-19] MEDS ORDERED: PROMETHAZINE INJ 25 MG/ML AMP ONE (14:16)
--- NOTE | 2021-11-19 14:29 | RAD REPORT ---
EXAM DESCRIPTION: CTAbdomen Pelvis W Contrast - 11/19/2021 2:21 pm CLINICAL HISTORY: Abdominal pain. LLQ abdominal pian COMPARISON: Abdomen Pelvis W Contrast dated 09/04/2021 TECHNIQUE: Biphasic CT imaging of the abdomen and pelvis was performed with 100 ml non-ionic IV cont rast. All CT scans are performed using dose optimization technique as appropriate and may include automated exposure control or mA/KV adjustment according to patient size. FINDINGS: The lung bases are clear.Cholecystectomy. Stimulator device is present left upper quadrant . The liver contains a 3-4 mm hypodensity in the right lobe, small and likely benign. No aggressive tasha er lesion. The spleen, pancreas, adrenal glands and kidneys are within normal limits. No bowel obstruction, free air, free fluid or abscess. Moderate stool is present throughout the colon . Appendectomy. No evidence of significant lymphadenopathy. No suspicious bony findings. IMPRESSION: No acute intra-abdominal or pelvic finding. Moderate stool is present throughout the col on.
--- NOTE | 2021-11-19 15:24 | ER ---
Nurse's Notes [facility] Name: Mallory Gomez Age: 31 yrs Sex: Female : 1990 Arrival Date: 11/19/2021 Time: 11:52 Bed 20 Private MD: Ramiro Palomares Diagnosis: Lower abdominal pain, unspecified;Low back pain;Fall on same level, unspecified Presentation: 11/19 11:55 Chief complaint: Patient states: I was moving boxes Thursday evening - Fell backwards ld1 from the trailer and landed on my back - box fell on top of me. C/O Mid back pain and pacemaker discomfort. "I feel like my pacemaker is shocking me.". Coronavirus screen: At this time, the client does not indicate any symptoms associated with coronavirus-19. Ebola Screen: No symptoms or risks identified at this time. Initial Sepsis Screen: Does the patient meet any 2 criteria? No. Patient's initial sepsis screen is negative. Does the patient have a suspected source of infection? No. Patient's initial sepsis screen is negative. Risk Assessment: Do you want to hurt yourself or someone else? Patient reports no desire to harm self or others. Onset of symptoms was November 19, 2021. 11:55 Method Of Arrival: Ambulatory ld1 11:55 Acuity: YESICA 3 ld1 Triage Assessment: 11:55 General: Appears in no apparent distress. uncomfortable, Behavior is cooperative, ld1 appropriate for age, anxious. Pain: Complains of pain in back Pain does not radiate. Pain currently is 4 out of 10 on a pain scale. EENT: No signs and/or symptoms were reported regarding the EENT system. Neuro: Level of Consciousness is awake, alert, obeys commands, Oriented to person, place, time, situation. Cardiovascular: Capillary refill < 3 seconds Patient's skin is warm and dry. Respiratory: Airway is patent Respiratory effort is even, unlabored. GI: Abdomen is flat, non-distended. : No signs and/or symptoms were reported regarding the genitourinary system. Derm: No signs and/or symptoms reported regarding the dermatologic system. Musculoskeletal: Reports pain in back. 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 - Social history:: Smoking status: Patient denies any tobacco usage or history of. Patient uses alcohol, occasionally. Screenin:24 Abuse screen: Denies threats or abuse. Denies injuries from another. Nutritional kauffman screening: No deficits noted. Tuberculosis screening: No symptoms or risk factors identified. Fall Risk None identified. Assessment: 12:23 General: Appears in no apparent distress. Behavior is cooperative, anxious. Pain: kauffman Complains of pain in back and abdomen. GI: Bowel sounds present X 4 quads. Abd is soft and non tender Reports Pain is 7 out of 10 on a pain scale. Musculoskeletal: Reports pain in back. Vital Signs: 11:55 BP 118 / 88; Pulse 104; Resp 18; Temp 97.5(TE); Pulse Ox 98% on R/A; Weight 64.41 kg; ld1 Height 5 ft. 6 in. (167.64 cm); Pain 4/10; 11:55 Body Mass Index 22.92 (64.41 kg, 167.64 cm) ld1 ED Course: 11:52 Patient arrived in ED. mr 11:52 Ramiro Palomares DO is Private Physician. mr 11:55 Arm band placed on left wrist. ld1 11:57 Triage completed. ld1 11:59 Blue Keane DO is Attending Physician. ms3 12:22 Eliza Oliveros, YVETTE is Primary Nurse. kauffman 12:24 Patient has correct armband on for positive identification. Bed in low position. kauffman 12:24 No provider procedures requiring assistance completed. kauffman 14:22 CT Abd/Pelvis - IV Contrast Only In Process Unspecified. EDMS 15:38 IV discontinued, intact, bleeding controlled, No redness/swelling at site. Pressure jh6 dressing applied. Administered Medications: 13:47 Drug: Pepcid (famotidine) 20 mg Route: IVP; Site: right antecubital; kauffman 13:47 Follow up: Response: No adverse reaction kauffman 13:47 Drug: Lactated Ringers Solution 1000 ml Route: IV; Rate: 4000 ml/hr; Site: right kauffman antecubital; 14:13 Drug: morphine 4 mg Route: IVP; Infused Over: 4 mins; Site: right antecubital; kauffman 14:13 Drug: Phenergan (promethazine) 25 mg Route: IM; Site: right deltoid; kauffman Medication: 12:24 VIS not applicable for this client. Outcome: 15:23 Discharge ordered by . ms3 15:38 Discharged to home ambulatory. 6 15:38 Condition: good 15:38 Discharge instructions given to patient, Instructed on discharge instructions, follow up and referral plans. Demonstrated understanding of instructions, follow-up care. 15:38 Patient left the ED. [facility] Signatures: Dispatcher [employer] EDPhylicia Santos mr KeaneBlue, DO ms3 Shasta Grossman RN RN ld1 Francie Gomez RN RN [facility] Barbara-StagerEliza RN RN
--- NOTE | 2021-11-19 15:24 | EDPHYS ---
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 - Social history:: Smoking status: Patient denies any tobacco usage or history of. Patient uses alcohol, occasionally. Vital Signs: 11:55 BP 118 / 88; Pulse 104; Resp 18; Temp 97.5(TE); Pulse Ox 98% on R/A; Weight 64.41 kg; ld1 Height 5 ft. 6 in. (167.64 cm); Pain 4/10; 11:55 Body Mass Index 22.92 (64.41 kg, 167.64 cm) ld1 MDM: 12:09 Patient medically screened. ms3 11/19 12:40 Order name: CBC with Diff; Complete Time: 14:37 ms3 11/19 12:40 Order name: CMP; Complete Time: 14:37 ms3 11/19 12:40 Order name: Lipase; Complete Time: 14:37 ms3 11/19 12:40 Order name: Urine Microscopic Only; Complete Time: 14:37 ms3 11/19 12:51 Order name: Urine Dipstick-Ancillary; Complete Time: 14:37 EDMS 11/19 12:52 Order name: Urine --Ancillary (enter results); Complete Time: 15:10 eb 11/19 12:40 Order name: CT Abd/Pelvis - IV Contrast Only; Complete Time: 14:37 ms3 11/19 12:40 Order name: IV Saline Lock; Complete Time: 13:47 ms3 07/05 12:40 Order name: Labs collected and sent; Complete Time: 13:47 ms3 11/19 13:36 Order name: Urine Culture EDMS 11/19 12:40 Order name: Urine Dipstick-Ancillary (obtain specimen); Complete Time: 13:47 ms3 11/19 12:40 Order name: Urine Test (obtain specimen); Complete Time: 13:47 ms3 Administered Medications: 13:47 Drug: Pepcid (famotidine) 20 mg Route: IVP; Site: right antecubital; kauffman 13:47 Follow up: Response: No adverse reaction 13:47 Drug: Lactated Ringers Solution 1000 ml Route: IV; Rate: 4000 ml/hr; Site: right kauffman antecubital; 14:13 Drug: morphine 4 mg Route: IVP; Infused Over: 4 mins; Site: right antecubital; kauffman 14:13 Drug: Phenergan (promethazine) 25 mg Route: IM; Site: right deltoid; kauffman Disposition Summary: 11/19/21 15:23 Discharge Ordered Location: Home ms3 Condition: Stable ms3 Diagnosis - Lower abdominal pain, unspecified ms3 - Low back pain ms3 - Fall on same level, unspecified ms3 Followup: ms3 - With: Private Physician - When: 2 - 3 days - Reason: Re-evaluation by your physician Discharge Instructions: - Discharge Summary Sheet ms3 - Abdominal Pain, Adult ms3 - Acute Back Pain, Adult ms3 Forms: - Medication Reconciliation Form ms3 - Thank You Letter ms3 - Antibiotic Education ms3 - Prescription Opioid Use ms3 Signatures: Dispatcher [employer] EDMS Blue Keane DO DO ms3 Shasta Grossman, RN RN ld1 Eliza Oliveros RN RN kauffman
[2021-11-19 15:44] VITALS: BP 118/88; TEMP 97.5; O2SAT 98
--- NOTE | 2021-11-20 11:09 | EKG ---
Test Date: 2021-11-19 Test Time: 12:03:38 Power Washer: MARIA ANTONIA MEASUREMENT RESULTS: Intervals: Rate: 75 DE: 124 QRSD: 78 QT: 370 QTc: 413 [place]: P: 73 DE: 124 QRS: 69 T: 53 INTERPRETIVE STATEMENTS: Normal sinus rhythm Possible Left atrial enlargement Borderline ECG No previous ECG available for comparison Electronically Signed On 11-20-21 11:06:48 CDT by Maxwell Sanders
== END 2021-11-19 15:38 | disposition home or self-care (01) ==
LOC: ER 11:49
DX: M54.50 Low back pain, unspecified (principal); R10.30 Lower abdominal pain, unspecified; W18.30XA Fall on same level, unspecified, initial encounter; E11.9 Type 2 diabetes mellitus without complications; Z88.0 Allergy status to penicillin; Z88.5 Allergy status to narcotic agent; Z88.6 Allergy status to analgesic agent; Z88.8 Allergy status to other drugs, medicaments and biological substances
CPT/HCPCS: 93005; 87088; 85025; 87086; 36415; 81025; 83690; 80053; 74177; Q9967; J2550; J7120; J2405; J3490; 81003; 81015

== ENCOUNTER 2022-05-17 18:16 | Emergency (ER) | payer OTHER ==
--- OUTSIDE RECORDS SUMMARY | 2022-05-17 18:20 | XMS REPORT | Clinical Summary ---
:1990 Author Organization [facility] MD [facility] Address [address] [place] [address] Care Team Providers Name Role Phone Unavailable Primary Care Provider Unavailable Allergies Not on File Medications Not on file Active Problems Not on file Social History Tobacco Use Types Packs/Day Years Used Date Smoking Tobacco: Never Assessed Sex Assigned at Date Recorded Not on file Job Start Date Occupation Industry Not on file Not on file Not on file Last Filed Vital Signs Not on file Plan of Treatment Not on file Results Not on fileafter 05/17/2021 Insurance Payer Benefit Plan / Subscriber ID Effective Phone Address T ype Group Dates [facility] [id number] 2021-Glendy [address] Medicaid HEALTHCARE MEDICAID [place], [place] [employer] NON SSI [id number] 1979 [address] ([address]) [place] [id number] Mallory Gomez Personal/Family Self [birth year] [address] (Home) [place] [address]
--- OUTSIDE RECORDS SUMMARY | 2022-05-17 18:44 | XMS REPORT | Continuity of Care Document ---
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 Infuse l 0.9% 22:23: Over: 1 [place] (Bolus) IV 00 hr, Route: IV, ONCE, Priority: STAT, Dosing Weight 60 kg, Start date: 10/04/20 17:23:00 CDT, Stop date: 10/04/20 17:23:00 CDT Blood-Gluco 2020-0 Yes [id number] Use as [facility] se Meter 5-12 directed ity of (CONTOUR 00:00: [place] NEXT METER) 00 Medical Misc Branch Blood-Gluco 2020-0 Yes [id number] Use as Univers se Meter 5-12 directed ity of (CONTOUR 00:00: [place] NEXT METER) 00 Medical Misc Branch Blood-Gluco 2020-0 Yes [id number] Use as Univers se Meter 5-12 directed ity of (CONTOUR 00:00: [place] NEXT METER) 00 Medical Misc Branch Blood-Gluco 2020-0 Yes [id number] Use as Univers se Meter 5-12 directed ity of (CONTOUR 00:00: [place] NEXT METER) 00 Medical Misc Branch Blood-Gluco 2020-0 Yes [id number] Use as [facility] se Meter 5-12 directed ity of (CONTOUR 00:00: [place] NEXT METER) 00 Medical Misc Branch Blood-Gluco 2020-0 Yes [id number] Use as Univers se Meter 5-12 directed ity of (CONTOUR 00:00: [place] NEXT METER) 00 Medical Misc Branch blood sugar 2020-0 2022- No [id number] Use as [facility] diagnostic 5-12 06-07 directed ity of (CONTOUR 00:00: 00:00 [place] NEXT TEST 00 :00 Medical STRIPS) Branch strip Dextrose 2020-0 No 25 mL, Memoria 50% Syringe 5-10 Route: l (D50W) 00:21: IVP, Randal 00 Dosing Weight 59.091, kg, ONCE, STAT, Start date: 09/23/20 19:21:00 CDT, Stop date: 09/23/20 19:21:00 CDT, Dextrose 50%: 12.5 gm = 25 mL Promethazin 2020-0 Yes 12.5 mg = M emoria e 5-10 1 tab, PO, l Hydrochlori 00:14: Q6H, PRN Speedy agrawal 12.5 MG 00 Nausea & Oral Tablet Vomiting, [Phenergan] # 12 tab, 0 Refill(s), Pharmacy: [facility] #[id number], 165.1, cm, 09/23/20 16:19:00 CDT, Height, 59.091, kg, 09/23/20 16:19:00 CDT, Weight Acetaminoph Yes 1 tab, PO, Memoria en 300 MG / 5-10 Q8H, PRN l Codeine 00:14: Pain, X 3 Perlita nn Phosphate 00 day, # 9 30 MG Oral tab, 0 Tablet Refill(s), [Tylenol Pharmacy: with Subtext Codeine #3] cy #[id number], 165.1, cm, 09/23/20 16:19:00 CDT, Height, 59.091, kg, 09/23/20 16:19:00 CDT, Weight Acetaminoph No 1 tab, Pietro kelli en 325 MG / 09 Route: PO, l Hydrocodone 23:38: Drug Form: [place] Bitartrate 00 TAB, 5 MG Oral Dosing Tablet Weight 59.091, kg, ONCE, STAT, Start date: 09/23/20 18:38:00 CDT, Stop date: 09/23/20 18:38:00 CDT Morphine No Notes: Memoria - (Same l 22:01: as:MORPhin Randal 00 e Sulfate) Phenergan No Notes: Do Mem oria - not give l 22:01: IV push. Randal 00 (Same as: Phenergan) Sodium No 1,000 mL, Memori a Chloride 09-23 1000 l 0.9% 22:01: ml/hr, [place] (Bolus) IV 00 Infuse Over: 1 hr, Route: IV, 1,000, Drug form: INJ, ONCE, Priority: STAT, Dosing Weight 59.091 kg, Start date: 09/23/20 17:01:00 CDT, Stop date: 09/23/20 17:01:00 CDT, 0 proMETHazin Yes [id number] 25mg Take 1 [facility] e 25 mg 4-11 tablet by ity of tablet 00:00: mouth [place] 00 every 6 Medical (six) Branch hours as needed for Nausea and Vomiting (N/V). proMETHazin Yes [id number] 25mg Take 1 [facility] e 25 mg 4-11 tablet by ity of tablet 00:00: mouth [place] 00 every 6 Medical (six) Branch hours as needed for Nausea and Vomiting (N/V). proMETHazin Yes [id number] 25mg Take 1 [facility] e 25 mg 4-11 tablet by ity of tablet 00:00: mouth [place] 00 every 6 Medical (six) Branch hours as needed for Nausea and Vomiting (N/V). proMETHazin Yes [id number] 25mg Take 1 [facility] e 25 mg 4-11 tablet by ity of tablet 00:00: mouth [place] 00 every 6 Medical (six) Branch hours as needed for Nausea and Vomiting (N/V). proMETHazin Yes [id number] 25mg Take 1 [facility] e 25 mg 4-11 tablet by ity of tablet 00:00: mouth [place] 00 every 6 Medical (six) Branch hours as needed for Nausea and Vomiting (N/V). proMETHazin Yes [id number] 25mg Take 1 [facility] e 25 mg 4-11 tablet by ity of tablet 00:00: mouth [place] 00 every 6 Medical (six) Branch hours as needed for Nausea and Vomiting (N/V). acetaminoph 2021- No 650mg Take 650 [facility] en 325 mg 3-22 03-18 mg by College tablet 00:00: 04:59 mouth. of 00 :00 Medicin e acetaminoph 2021- No 650mg Take [address] [facility] [address] [facility] en 3-22 03-17 tablets [facility] (TYLENOL) 00:00: 23:59 (650 mg Medi basil 325 MG 00 :00 total) by Center tablet mouth every 6 (six) hours as needed for Pain for up to 360 days. tramadol 2020- No [id number] 1{tbl} Take 1 [facility] (ULTRAM) 50 3-22 10-04 Tablet by Co llege MG tablet 00:00: 00:00 mouth of 00 :00 every 8 Medicin hours as e needed for Pain. tramadol 2020- No [id number] 1{tbl} Take 1 [facility] (ULTRAM) 50 3-22 10-04 Tablet by Co llege MG tablet 00:00: 00:00 mouth of 00 :00 every 8 Medicin hours as e needed for Pain. polyethylen 0 2021- No [id number] 1{packe Take 1 [facility] e glycol 1-14 01-16 t} Packet by Sathish silva (GLYCOLAX) 00:00: 05:59 mouth as of 17 g packet 00 :00 needed for Me dicin up to 1 e day. acetaminoph 2020-0 Yes [id number] 1{tbl} Take 1 [facility] [place] en-codeine 1-12 tablet by ity of 300-30 mg 00:00: mouth [place] tablet 00 every 4 Medical (four) Branch hours as needed for Pain (scale 7-10). Indication s: acute pain acetaminoph 2020-0 Yes [id number] 1{tbl} Take 1 [facility] [place] en-codeine 1-12 tablet by ity of 300-30 mg 00:00: mouth [place] tablet 00 every 4 Medical (four) Branch hours as needed for Pain (scale 7-10). Indication s: acute pain acetaminoph 2020-0 Yes [id number] 1{tbl} Take 1 [facility] [place] en-codeine 1-12 tablet by ity of 300-30 mg 00:00: mouth [place] tablet 00 every 4 Medical (four) Branch hours as needed for Pain (scale 7-10). Indication s: acute pain acetaminoph 2020-0 Yes [id number] 1{tbl} Take 1 [facility] [place] en-codeine 1-12 tablet by ity of 300-30 mg 00:00: mouth [place] tablet 00 every 4 Medical (four) Branch hours as needed for Pain (scale 7-10). Indication s: acute pain acetaminoph 2020-0 Yes [id number] 1{tbl} Take 1 [facility] [place] en-codeine 1-12 tablet by ity of 300-30 mg 00:00: mouth [place] tablet 00 every 4 Medical (four) Branch hours as needed for Pain (scale 7-10). Indication s: acute pain acetaminoph 2020-0 Yes [id number] 1{tbl} Take 1 [place] en-codeine 1-12 tablet by ity of 300-30 mg 00:00: mouth [place] tablet 00 every 4 Medical (four) Branch hours as needed for Pain (scale 7-10). Indication s: acute pain Scopolamine 2020-0 Yes [id number] 1{patch Place 1 [facility] 1 MG/3DAYS -08 } Patch onto Col lege [id number] 00:00: the skin of 00 every 3 Medicin days. e cyclobenzap 2020-0 Yes [id number] 5mg Take 1 [facility] rine 1-08 Tablet by [place] (FLEXERIL) 00:00: mouth 3 of 5 MG tablet 00 times Medicin daily as e needed. oxycodone 0 Yes 1{tbl} Take 1-2 [facility] (ROXICODONE 1-08 Tablets by [facility] ) 5 MG 00:00: mouth of immediate 00 every 6 Medicin release hours as e tablet needed for Pain. promethazin 0 Yes 25mg Take [address] [facility] - tablet (25 [facility] (PHENERGAN) 00:00: mg total) M edical 25 MG 00 by mouth Center tablet every 8 (eight) hours as needed. gabapentin 2020-0 Yes gabapentin U nivers 300 [...] a day by oral route. gabapentin 2020-0 2022- No 600mg Q.5D Take [address] [facility] (NEURONTIN) 1-07 01-07 capsules [place] es 300 MG 00:00: 23:59 (600 mg Medical capsule 00 :00 total) by Center mouth 2 (two) times daily. scopolamine 0 2021- No 1.5mg Place [address] (TRANSDERM- 05-24 patch (1.5 L ukes SCOP) 1 mg 00:00: 23:59 mg total) M edical over 3 days 00 :00 onto the Cent er patch skin every third day. sucralfate 2019-[address] [facility] [address] (CARAFATE) 2-26 [facility] 1 gram 00:00: Medical tablet 00 Center zolpidem 2019-05 Yes 10mg Take 10 mg [facility] (AMBIEN) 10 2- by mouth. Col lege MG tablet 21:07: of Medicin e LAMOTRIGINE 2019-05 Yes Take by [facility] OR 2- mouth. [place] 21:07: of 33 Medicin e zolpidem 2019-05 Yes 10mg Take 10 mg [facility] (AMBIEN) 10 - by mouth. Col lege MG tablet 21:07: of 33 Medicin e LAMOTRIGINE 2019-05 Yes Take by [facility] OR 2- mouth. [place] 21:07: of 33 Medicin e promethazin 2019-05 Yes [facility] 06-16 [place] (PHENERGAN) 00:00: of 12.5 MG 00 Medicin tablet e promethazin 2019-05 Yes [facility] 06-16 [place] (PHENERGAN) 00:00: of 12.5 MG 00 Medicin tablet e sucralfate 2019-05 Yes TAKE 1 [facility] (CARAFATE) 1-02 TABLET BY Dmitry ege 1 g tablet 00:00: MOUTH 4 of 00 TIMES A Medicin DAY e sucralfate 2019-05 Yes TAKE 1 [facility] (CARAFATE) 1-02 TABLET BY Dmitry ege 1 g tablet 00:00: MOUTH 4 of 00 TIMES A Medicin DAY e pantoprazol 2019-05 Yes TAKE 1 [facility] 0-26 TABLET BY [place] (PROTONIX) 00:00: MOUTH of 40 MG 00 EVERY DAY Medicin tablet 30 MINUTES e BEFORE BREAKFAST OR FIRST MEAL SUPREP 2019-05 Yes See Admin [facility] BOWEL PREP 0-26 Instructio Col lege KIT 00:00: ns. of 17.5-3.13-1 00 Medicin .6 GM/177ML e SOLN pantoprazol 2019-05 Yes TAKE 1 [facility] 0-26 TABLET BY [place] (PROTONIX) 00:00: MOUTH of 40 MG 00 EVERY DAY Medicin tablet 30 MINUTES e BEFORE BREAKFAST OR FIRST MEAL SUPREP 2019-05 Yes See Admin [facility] BOWEL PREP 0-26 Instructio Col lege KIT 00:00: ns. of 17.5-3.13-1 00 Medicin .6 GM/177ML e SOLN promethazin Yes 25mg Take 25 mg [facility] e 7-22 by mouth. [place] (PHENERGAN) 00:00: of 25 MG 00 Medicin tablet e promethazin Yes 25mg Take 25 mg [facility] e 7-22 by mouth. [place] (PHENERGAN) 00:00: of 25 MG 00 Medicin tablet e tramadol Yes 50 mg = 1 Pietro kelli hydrochlori 12-18 tab, PO, l de 50 MG 08:44: Q6H, PRN Perlita nn Oral Tablet 00 Pain, X 10 day, # 40 tab, 0 Refill(s) insulin Yes 32 unit, Memori a detemir 100 12-18 SUB-Q, l UNT/ML 08:43: BID, # 15 [place] n Injectable 00 mL, 1 Solution Refill(s) [Levemir] Omnipaque Yes Notes: Memori a 300 12-18 (Same l injectable 08:19: as:Omnipaq H ermann solution 00 ue 300). WASTE: F/P - Black; E - Municipal Trash Bin Reglan No 10 mg, Memoria 12-18 Route: l 07:56: IVP, Drug form: INJ, ONCE, Dosing Weight 62.415, kg, Priority: STAT, Start date: 12/18/18 2:56:00 CDT, Stop date: 12/18/18 2:56:00 CDT NS (Bolus) No 1,000 mL, Me moria IV 12-18 1,000 l 07:54: ml/hr, Infuse Over: 1 hr, Route: IV, ONCE, Priority: STAT, Dosing Weight 62.415 kg, Start date: 12/18/18 2:54:00 CDT, Stop date: 12/18/18 2:54:00 CDT Morphine No 6 mg, Memoria 12-18 Route: l 07:54: IVP, ONCE, Dosing Weight 62.415, kg, Priority: STAT, Start date: 12/18/18 2:54:00 CDT, Stop date: 12/18/18 2:54:00 CDT Saline No Notes: Memoria Flush 0.9% 12-18 (Same as: l 06:38: BD Posiflush) Dicyclomine Yes 20 mg = 1 M emoria Hydrochlori 5-28 tab, PO, l de 20 MG 09:53: QID-Before Her maurer Oral Tablet 00 Meals, PRN [Bentyl] Abdominal Pain, # 20 tab, 0 Refill(s) Phenergan Yes 25 mg = 1 Mem oria 25 mg oral 5-28 tab, PO, l tablet 09:53: Q6H, PRN Nausea, # 15 tab, 0 Refill(s) Phenergan No Notes: Memori a 5-28 (Same as: l 09:27: Phenergan) Sodium No 1,000 mL, Memori a Chloride 5-28 1,000 l 0.9% 09:26: ml/hr, [place] (Bolus) IV 00 Infuse Over: 1 hr, Route: IV, 1,000, Drug form: INJ, ONCE, Priority: STAT, Dosing Weight 60.909 kg, Start date: 10/12/18 4:26:00 CDT, Stop date: 10/12/18 4:26:00 CDT Insulin No 10 unit, Memori a regular 5-28 Route: l 08:04: IVP, ONCE, Dosing Weight 60.909, kg, Priority: STAT, Start date: 10/12/18 3:04:00 CDT, Stop date: 10/12/18 3:04:00 CDT Bentyl No Notes: Memoria 5-28 (Same as: l 07:31: Bentyl) Reglan No Notes: Memoria 5-28 (Same as: l 07:30: Reglan) Sodium No 1,000 mL, Memori a Chloride 5-28 Infuse l 0.9% 07:03: Over: 1 [place] (Bolus) IV 00 hr, Route: IV, ONCE, Priority: STAT, Dosing Weight 60.909 kg, Start date: 10/12/18 2:03:00 CDT, Stop date: 10/12/18 2:03:00 CDT Acetaminoph Acetaminoph Yes JESSICA TAKE 1 [facility] en-Codeine en-Codeine 5-16 [facility] TABLET [facility] #3 300-30 #3 300-30 00:00: M.D. EVERY 4 TO ans MG Oral MG Oral 00 6 HOURS Tablet Tablet NEEDED FOR PAIN. Promethazin Yes 25 mg = 1 M emoria e 4-24 tab, PO, l Hydrochlori 22:36: Q4H, PRN He rmann de 25 MG 00 Nausea/Vom Oral Tablet iting, # 15 tab, 0 Refill(s), Pharmacy: [facility] #[id number] tramadol Yes 50 mg = 1 Pietro kelli hydrochlori 4-24 tab, PO, l de 50 MG 22:36: Q6H, PRN Perlita nn Oral Tablet 00 Pain, X 10 day, # 20 tab, 0 Refill(s) Acetaminoph Yes 1,000 mg = Memoria en 500 MG 3-20 2 tab, PO, l Oral Tablet 02:33: Q6H, PRN He rmann 00 Pain or fever, X 7 day, # 50 tab, 0 Refill(s) Promethazin Yes 12.5 mg = M emoria e 3-20 1 tab, PO, l Hydrochlori 02:33: Q6H, PRN He rmann de 12.5 MG 00 Nausea & Oral Tablet Vomiting, [Phenergan] # 10 tab, 0 Refill(s) Fluconazole No 100 mg = 1 Memoria 100 MG Oral 3-20 tab, PO, l Tablet 02:33: Daily, X 1 Perlita nn [Diflucan] 00 day, # 1 tab, 0 Refill(s) Cephalexin Yes 500 mg = 1 M emoria 500 MG Oral 3-20 cap, PO, l Capsule 02:33: BID, X 10 Perlita nn [Keflex] 00 day, # 20 cap, 0 Refill(s) Oseltamivir 2019-0 Yes 75 mg, PO, Memoria 75 MG Oral 3-20 Q12H, X 5 l Capsule 02:33: day, # 10 Perlita nn [Tamiflu] 00 cap, 0 Refill(s) Dexamethaso 2019-0 No 10 mg, Pietro kelli ne 08-03 Route: l 22:45: IVP, Drug form: INJ, ONCE, Dosing Weight 59.091, kg, Priority: STAT, Start date: 08/03/18 17:45:00 CDT, Stop date: 08/03/18 17:45:00 CDT Albuterol 2019-0 No 3 ml, Memoria 0.833 MG/ML 08-03 Route: l / 22:44: NEB, Drug Ipratropium 00 Form: [place] SOLN, 0.167 MG/ML Dosing Inhalant Weight Solution 59.091, [DuoNeb] kg, ONCE, STAT, Start date: 08/03/18 17:44:00 CDT, Stop date: 08/03/18 17:44:00 CDT Acetaminoph 2019-0 No 1,000 mg, M emoria en 08-03 Route: PO, l 22:32: Drug form: Randal 00 TAB, ONCE, Dosing Weight 59.091, kg, Priority: STAT, Start date: 08/03/18 17:32:00 CDT, Stop date: 08/03/18 17:32:00 CDT Rocephin 2018-0 No 1 gm, Memoria 08-03 Route: l 22:31: IVPB, Drug form: PDR/INJ, ONCE, Dosing Weight 59.091, kg, Priority: STAT, Start date: 08/03/18 17:31:00 CDT, Stop date: 08/03/18 17:31:00 CDT, ABX Indication : Urinary Tract Infection Morphine 2019-0 No 4 mg, Memoria 08-03 Route: l 22:31: IVP, ONCE, Dosing Weight 59.091, kg, Priority: STAT, Start date: 08/03/18 17:31:00 CDT, Stop date: 08/03/18 17:31:00 CDT Phenergan 2019-0 No 12.5 mg, Pietro kelli 3-19 50 mL, l 18:02: Route: [place] 00 IVPB, Drug form: SOLN, ONCE, Dosing Weight 59.091, kg, Priority: STAT, Start date: 08/03/18 13:02:00 CDT, Stop date: 08/03/18 13:02:00 CDT NS (Bolus) 2019-0 No 1,000 mL, Me moria IV 3- 1000 l 18:02: ml/hr, [place] 00 Infuse Over: 1 hr, Route: IV, 1,000, Drug form: INJ, ONCE, Priority: STAT, Dosing Weight 59.091 kg, Start date: 08/03/18 13:02:00 CDT, Stop date: 08/03/18 13:02:00 CDT NS (Bolus) 2019-0 No 1,000 mL, Me moria IV 3- 1000 l 18:01: ml/hr, [place] 00 Infuse Over: 1 hr, Route: IV, 1,000, Drug form: INJ, ONCE, Priority: STAT, Dosing Weight 63.636 kg, Start date: 08/03/18 13:01:00 CDT, Stop date: 08/03/18 13:01:00 CDT Fluconazole 2019-0 Yes 150 mg = 1 Memoria 150 MG Oral 3-14 tab, PO, l Tablet 18:36: ONCE, # 1 Booker n [Diflucan] 00 tab, 0 Refill(s), Pharmacy: [facility] #[id number] tramadol 2019-0 Yes 50 mg = 1 Pietro kelli hydrochlori 3-04 tab, PO, l de 50 MG 20:35: Q6H, PRN Perlita nn Oral Tablet 00 Pain, X 10 day, # 20 tab, 0 Refill(s) Reglan 2019-0 No Notes: Memoria 3-01 (Same as: l 22:49: Reglan) Randal 00 Sodium 2019-0 No 1,000 mL, Memori a Chloride 3-01 1000 l 0.9% 22:48: ml/hr, [place] (Bolus) IV 00 Infuse Over: 1 hr, Route: IV, 1,000, Drug form: INJ, ONCE, Priority: STAT, Dosing Weight 60 kg, Start date: 07/16/18 16:48:00 [employer]ILY [employer]ATION WORKER, Stop date: 07/16/18 16:48:00 [employer]ILY [employer]ATION WORKER Saline No Notes: Memoria Flush 0.9% - (Same as: l 22:48: BD [place] 00 Posiflush) Metronidazo Yes 500 mg = 1 Memoria le 500 MG 2-25 tab, PO, l Oral Tablet 17:22: BID, X 7 He rmann [Flagyl] 00 day, # 14 tab, 0 Refill(s), Pharmacy: [facility] #[id number] Fluconazole Yes See Memori a 150 MG Oral 2-22 Instructio l Tablet 19:24: ns, 1 tab Booker n [Diflucan] 00 PO ONCE no and repeat in 72 hours, # 2 tab, 0 Refill(s), Pharmacy: [facility] #[id number] Lidocaine Yes See Memoria Hydrochlori 2-22 Instructio l de 0.02 19:18: ns, small Perlita nn MG/MG 00 amount to Topical Gel affected area for pain at periurethr al site., # 15 mL, 0 Refill(s), Pharmacy: [facility] #[id number] Acetaminoph No 1 tab, PO, Memoria en 300 MG / -17 Q6H, PRN l Codeine 17:37: breakthrou Herm reynaldo Phosphate 00 gh pain, X 30 MG Oral 3 day, # Tablet 12 tab, 0 [Tylenol Refill(s) with Codeine #3] ibuprofen No 600 mg = 1 Me moria 600 mg oral 1-17 tab, PO, l tablet 17:37: Q6H, PRN Randal 00 Pain or Fever, Take with food, X 10 day, # 40 tab, 0 Refill(s) Omnipaque No Notes: Memori a 300 -17 (Same l injectable 15:44: as:Omnipaq H ermann solution 00 ue 300). WASTE: F/P - Black; E - Municipal Trash Bin NS (Bolus) No 500 mL, Pietro kelli IV -17 500 ml/hr, l 15:44: Infuse [place] 00 Over: 1 hr, Route: IV, 500, Drug form: INJ, ONCE, Priority: STAT, Dosing Weight 57.727 kg, Start date: 06/03/18 9:44:00 [employer]ILY [employer]ATION WORKER, Stop date: 06/03/18 9:44:00 FAMILY [employer]ATION WORKER ketOROLAC 2019-0 No 30 mg, Memori a 30 mg/mL 06-03 Route: l injectable 14:33: IVP, Drug He rmann solution 00 form: INJ, ONCE, Dosing Weight 57.727, kg, Priority: STAT, Start date: 06/03/18 8:33:00 FAMILY [employer]ATION WORKER, Stop date: 06/03/18 8:33:00 FAMILY [employer]ATION WORKER Phenergan 2018-0 No 12.5 mg, Pietro kelli 06-03 Route: l 14:30: IVPB, [place] ONCE, Dosing Weight 57.727, kg, Priority: STAT, Start date: 06/03/18 8:30:00 FAMILY [employer]ATION WORKER, Stop date: 06/03/18 8:30:00 FAMILY [employer]ATION WORKER Morphine 2018-0 No 4 mg, Memoria 06-03 Route: l 14:30: IVP, ONCE, Dosing Weight 57.727, kg, Priority: STAT, Start date: 06/03/18 8:30:00 FAMILY PRES[employer]ATION WORKER, Stop date: 06/03/18 8:30:00 FAMILY [employer]ATION WORKER Saline 0 No Notes: Memoria Flush 0.9% 06-03 (Same as: l 14:30: BD Posiflush) Rocephin 0 No 1,000 mg, Pietro kelli 05-20 Route: IM, l 19:53: ONCE, Dosing Weight 60.682, kg, Start date: 05/20/18 13:53:00 FAMILY [employer]ATION WORKER, Stop date: 05/20/18 13:53:00 FAMILY [employer]ATION WORKER azithromyci 0 No 1,000 mg = Memoria n 500 mg 05-20 2 tab, PO, l oral tablet 19:45: ONCE, # 2 H erm tab, 0 Refill(s), Pharmacy: [facility] #[id number] Insulin 2017-05 No Notes: Memoria regular -16 (Same as: l 10:28: Humulin R) WASTE: F/P - Black; E - Municipal Trash Bin (Do not shake) Phenergan 2017-05 No Notes: Memori a -16 (Same as: l 10:00: Phenergan) Reglan 2017-05 No Notes: Memoria 1-16 (Same as: l 09:59: Reglan) [place] Dextrose 2017-05 No 25 gm, 50 Pietro kelli 50% Syringe 1-16 mL, Route: l 09:27: IVP, Drug Form: INJ, Dosing Weight 54.545, kg, PRN, PRN Blood Glucose Results, Start date: 04/02/18 3:27:00 FAMILY [employer]ATION WORKER, Duration: 30 day, Stop date: 05/02/18 3:26:00 FAMILY [employer]ATION WORKER Glucagon 2017-05 No 1 mg, Memoria 1-16 Route: IM, l 09:27: Drug form: [place] 00 PDR/INJ, PRN, Dosing Weight 54.545, kg, PRN Blood Glucose Results, Start date: 04/02/18 3:27:00 FAMILY PRESERVATION WORKER, Duration: 30 day, Stop date: 05/02/18 3:26:00 FAMILY [employer]ATION WORKER Ondansetron 2017-05 No Notes: Pietro kelli 1-16 (Same as: l 09:27: Zofran) MEDICATION WASTE Product Size: 4 mg Product Wasted: ___ mg Sodium 2017-05 No 2,000 mL, Memori a Chloride 1-16 2000 l 0.9% 09:27: ml/hr, [place] (Bolus) IV 00 Infuse Over: 1 hr, Route: IV, 2,000, Drug form: INJ, ONCE, Priority: STAT, Dosing Weight 54.545 kg, Start date: 04/02/18 3:27:00 FAMILY PRESERVATION WORKER, Stop date: 04/02/18 3:27:00 FAMILY PRESERVATION WORKER Saline 2017-05 No Notes: Memoria Flush 0.9% 1-16 (Same as: l 09:27: BD [place] Posiflush) d50 syringe 2017-05 No 50 mL, Pietro kelli 0-16 Route: l 09:20: IVP, [place]andal Dosing Weight 61.364, kg, ONCE, Start date: 03/02/18 4:20:00 CDT, Stop date: 03/02/18 4:20:00 CDT Saline 2017-05 No Notes: Memoria Flush 0.9% 0-16 (Same as: l 09:06: BD [place] Posiflush) insulin 2018-0 No Notes: Memoria glargine 02-04 (Same as: l 02:00: Lantus) Do not hold insulin without contacting prescriber WASTE: F/P - Black; E - Municipal Trash Bin "single patient use only" Levemir 0 No 20 unit, Memori a 02-04 Route: l 02:00: SUB-Q, Drug form: SOLN, Bedtime, Dosing Weight 60.909, kg, Start date: 02/03/18 21:00:00 CDT, Duration: 30 day, Stop date: 03/04/18 21:00:00 CDT insulin 0 No 20 unit, Memori a detemir 02-03 Route: l 22:00: SUB-Q, Drug form: SOLN, BID, Dosing Weight 60.909, kg, Start date: 02/03/18 17:00:00 CDT, Duration: 30 day, Stop date: 03/05/18 9:00:00 CDT Bentyl 0 No Notes: Memoria 02-03 (Same as: l 22:00: Bentyl) Insulin No Notes: Memoria Lispro 02-03 (Same as: l 21:06: Humalog ) Roll in palms of hands gently; Do not shake `vigorousl y. "Single Patient Use Only " WASTE: F/P - Black; E - Municipal Trash Bin Stable for 28 days at room temperatur e. Expires in days from ____Date Glucagon 0 No 1 mg, Memoria 02-03 Route: IM, l 21:06: Drug form: PDR/INJ, PRN, Dosing Weight 60.909, kg, PRN Blood Glucose Results, Start date: 02/03/18 16:06:00 CDT, Duration: 30 day, Stop date: 03/05/18 16:05:00 CDT Dextrose 0 No 12.5 gm, Memor ia 50% Syringe 02-03 25 mL, l 21:06: Route: IVP, Drug Form: INJ, Dosing Weight 60.909, kg, PRN, PRN Blood Glucose Results, Start date: 02/03/18 16:06:00 CDT, Duration: 30 day, Stop date: 03/05/18 16:05:00 CDT Promethazin No Notes: Pietro kelli e 02-03 (Same as: l 21:03: Phenergan) Morphine No Notes: Memoria 02-03 (Same l 20:58: as:MORPhin e Sulfate) NS 1,000 mL No 1,000 mL, M emoria 02-03 Rate: 150 l 20:58: ml/hr, Infuse over: 6.7 hr, Route: IV, Dosing Weight 60.909 kg, Total Volume: 1,000, Start date: 02/03/18 15:58:00 CDT, Duration: 30 day, Stop date: 03/05/18 15:57:00 CDT, 1.67, m2 Potassium No Notes: Memori a Chloride 02-03 (Same as: l 20:56: KCL) Infuse no faster than 10 mEq/hr if given peripheral ly. potassium No Notes: Memori a phosphate 02-03 (Same as: l 20:56: K Phosphate. ) Do not infuse phosphorou s concurrent ly in the same line as TPN or IVF that contains calcium. For double lumen central lines, phosphorou s may be infused in a separate lumen from TPN. 1 mMol phoshate has 1.47 mEq potassium Infuse over 4 hours Magnesium No Notes: Memori a Sulfate 02-03 WASTE: F/P l 20:56: - Sink; E - [place] Trash Bin Dextrose No 25 mL, Memoria 50% Syringe 02-03 Route: l 20:56: IVP, Dosing Weight 60.909, kg, PRN, PRN Blood Glucose Results, Start date: 02/03/18 15:56:00 CDT, Duration: 30 day, Stop date: 03/05/18 15:55:00 CDT Glucagon No 1 mg, Memoria 02-03 Route: IM, l 20:56: PRN, Dosing Weight 60.909, kg, PRN Blood Glucose Results, Start date: 02/03/18 15:56:00 CDT, Duration: 30 day, Stop date: 03/05/18 15:55:00 CDT Insulin 2017- No 99 mL, Memoria (regular) 02-03 Rate: l Titrate IV 20:56: Titrate, Her maurer additive 00 Dosing 100 unit + Weight Sodium 60.909, Chloride kg, Route: 0.9% IV, Total (titrate) Volume: 99 mL 99, Priority: Routine, Start Date: 02/03/18 15:56:00 CDT, Duration: 30 day, Stop date: 03/05/18 15:55:00 CDT, Replace Every: 24 hr Sodium No 1,000 mL, Memori a Chloride 02-03 Rate: 250 l 0.9% IV 20:56: ml/hr, [place] 1000 mL 00 Infuse over: 4 hr, Route: IV, Dosing Weight 60.909 kg, Total Volume: 1,000, When Finger stick blood glucose values remain ABOVE 250 mg/dL administer until BG is less than 250 mg/dL., Start date: 02/03/18 15:56:00 CDT, Durati... D5NS 1000 No 1,000 mL, Mem oria mL 02-03 Rate: 250 l 20:56: ml/hr, [place] 00 Infuse over: 4 hr, Route: IV, Dosing Weight 60.909 kg, Total Volume: 1,000, Start date: 02/03/18 15:56:00 CDT, Duration: 30 day, Stop date: 03/05/18 15:55:00 CDT, 1.67, m2 pneumococca No Notes: [place]iter[place] kelli l capsular - (Same as: l polysacchar 20:38: Pneumovax H ermann mark type 1 35 23) vaccine / Refrigerat pneumococca e l capsular polysacchar mark type 10A vaccine / pneumococca l capsular polysacchar mark type 11A vaccine / pneumococca l capsular polysacchar mark type 12F vaccine / pneumococca l capsular polysacchar influenza No Notes: Memori a virus 9-19 (Same as: l vaccine, 20:35: Fluzone Booker n inactivated 50 Quadrivale nt, Fluarix Quadrivale nt) For 3 years of age and older (0.5 mL IM) Shake well before use Enoxaparin No Notes: Memor ia 12-21 (Same as: l 21:00: Lovenox) Clindamycin No Notes: Pietro kelli 12-21 (Same As: l 21:00: Cleocin) Ketorolac No 4 days Memor ia 12-21 l 20:51: MEDICATION WASTE Product Size: 30 mg Product Wasted: 15 mg Dextrose No 25 gm, 50 Pietro kelli 50% Syringe 12-21 mL, Route: l 19:51: IVP, Drug Form: INJ, Dosing Weight 62.727, kg, PRN, PRN Blood Glucose Results, Start date: 12/21/17 14:51:00 CDT, Duration: 30 day, Stop date: 01/20/18 14:50:00 CDT Insulin No Notes: Memoria (regular) 12-21 (Same as: l Titrate IV 19:51: Humulin R He rmann additive 00 and 100 unit + NovoLIN R) Sodium WASTE: F/P Chloride - Black; E 0.9% - (titrate) Municipal 99 mL Trash Bin (Do not shake) Glucagon No 1 mg, Memoria 12-21 Route: IM, l 19:51: Drug form: PDR/INJ, PRN, Dosing Weight 62.727, kg, PRN Blood Glucose Results, Start date: 12/21/17 14:51:00 CDT, Duration: 30 day, Stop date: 01/20/18 14:50:00 CDT Potassium No Notes: Memori a Chloride 12-21 (Same as: l 19:51: KCL) Infuse no faster than 10 mEq/hr if given peripheral ly. Magnesium No Notes: Memori a Sulfate 12-21 WASTE: F/P l 19:51: - Sink; E [place] 00 - Municipal Trash Bin potassium No Notes: Memori a phosphate 12-21 (Same as: l 19:51: K Phosphate. ) 1 mMol phoshate has 1.47 mEq potassium Infuse over 4 hours Sodium No 1,000 mL, Memori a Chloride 12-21 Rate: 250 l 0.9% IV 19:51: ml/hr, [place] 1,000 mL 00 Infuse over: 4 hr, Route: IV, Dosing Weight 62.727 kg, Total Volume: 1,000, When Finger stick blood glucose values remain ABOVE 250 mg/dL administer until BG is less than 250 mg/dL., Start date: 12/21/17 14:51:00 CDT, Durati... D5NS 1,000 0 No 1,000 mL, Me moria mL 12-21 Rate: 250 l 19:51: ml/hr, [place] 00 Infuse over: 4 hr, Route: IV, Dosing Weight 62.727 kg, Total Volume: 1,000, Start date: 12/21/17 14:51:00 CDT, Duration: 30 day, Stop date: 01/20/18 14:50:00 CDT, 1.71, m2 NovoLog Yes SUB-Q, Memoria 12-21 TID-Before l 19:33: Meals, 0 [place] 00 Refill(s) Acetaminoph No 1 tab, Pietro kelli en 325 MG / 12-21 Route: PO, l Hydrocodone 19:22: Drug Form: [place] Bitartrate 00 TAB, 5 MG Oral Dosing Tablet Weight [[place] 62.727, 5/325] kg, ONCE, STAT, Start date: 12/21/17 14:22:00 CDT, Stop date: 12/21/17 14:22:00 CDT NS (Bolus) No 1,000 mL, Me moria IV 12-21 1,000 l 19:18: ml/hr, [place] 00 Infuse Over: 1 hr, Route: IV, ONCE, Priority: STAT, Dosing Weight 62.727 kg, Start date: 12/21/17 14:18:00 CDT, Stop date: 12/21/17 14:18:00 CDT Reglan 0 No 10 mg, Memoria 12-21 Route: l 19:18: IVP, Drug form: INJ, ONCE, Dosing Weight 62.727, kg, Priority: STAT, Start date: 12/21/17 14:18:00 CDT, Stop date: 12/21/17 14:18:00 CDT Clindamycin 2017-0 No 900 mg, Mem oria 12-21 Route: l 19:16: IVPB, [place] 00 ONCE, Dosing Weight 62.727, kg, Priority: STAT, Start date: 12/21/17 14:16:00 CDT, Stop date: 12/21/17 14:16:00 CDT, ABX Indication : Skin/Soft Tissue Infection Insulin 2018-0 No 10 unit, Memori a regular 12-21 Route: l 19:09: IVP, ONCE, Dosing Weight 62.727, kg, Priority: STAT, Start date: 12/21/17 14:09:00 CDT, Stop date: 12/21/17 14:09:00 CDT Phenergan 0 No 12.5 mg, Pietro kelli 12-21 Route: l 18:17: IVPB, ONCE, Dosing Weight 62.727, kg, Priority: STAT, Start date: 12/21/17 13:17:00 CDT, Stop date: 12/21/17 13:17:00 CDT NS (Bolus) No 1,000 mL, Me moria IV 12-21 1,000 l 18:13: ml/hr, Infuse Over: 1 hr, Route: IV, ONCE, Priority: STAT, Dosing Weight 62.727 kg, Start date: 12/21/17 13:13:00 CDT, Stop date: 12/21/17 13:13:00 CDT Metoclopram 2017- Yes 10 mg = 1 M emoria mark 10 MG -28 tab, PO, l Oral Tablet 06:00: QID-Before Meals, X 7 day, # 28 tab, 0 Refill(s) NS (Bolus) 0 No 1,000 mL, Me moria IV -28 1,000 l 03:53: ml/hr, Infuse Over: 1 hr, Route: IV, 1,000, Drug form: INJ, ONCE, Priority: STAT, Dosing Weight 59.091 kg, Start date: 11/11/17 22:53:00 CDT, Stop date: 11/11/17 22:53:00 CDT Metoclopram 2017-0 No Notes: Pietro kelli mark 6-28 (Same as: l 01:24: Reglan) NS (Bolus) 2017-0 No 1,000 mL, Me moria IV 11-12 1,000 l 01:24: ml/hr, Infuse Over: 1 hr, Route: IV, 1,000, Drug form: INJ, ONCE, Priority: STAT, Dosing Weight 59.091 kg, Start date: 11/11/17 20:24:00 CDT, Stop date: 11/11/17 20:24:00 CDT Dextrose No 25 gm, 50 Pietro kelli 50% Syringe 11-12 mL, Route: l 00:05: IVP, Drug Form: INJ, Dosing Weight 64.636, kg, PRN, PRN Blood Glucose Results, Start date: 11/11/17 19:05:00 CDT, Duration: 1 day, Stop date: 11/12/17 19:04:00 CDT Glucagon No 1 mg, Memoria 11-12 Route: IM, l 00:05: Drug form: PDR/INJ, PRN, Dosing Weight 64.636, kg, PRN Blood Glucose Results, Start date: 11/11/17 19:05:00 CDT, Duration: 1 day, Stop date: 11/12/17 19:04:00 CDT Saline No Notes: Memoria Flush 0.9% 11-12 (Same as: l 00:05: BD Posiflush) traMADol traMADol Erica YE 1 Q6H TAKE 1 U T HCl - 50 MG HCl - 50 MG 6-19 OZOUDE TABLET Physici Oral Tablet Oral Tablet 00:00: M.D. EVERY 6 ans 00 HOURS Meloxicam Meloxicam Erica YE 1 QD TAKE 1 UT 15 MG Oral 15 MG Oral 6-19 OZOUDE TABLET Physici Tablet Tablet 00:00: M.D. DAILY. ans 00 Acetaminoph 0 No 1 - 2 tab, Memoria en 300 MG / 6-14 PO, Q4H, l Codeine 19:24: PRN Pain, [place] nn Phosphate 00 X 2 day, # 30 MG Oral 12 tab, 0 Tablet Refill(s) [Tylenol with Codeine #3] Bacitracin No 1 appl, Pietro kelli 0.5 UNT/MG 07 TOP, BID, l / Neomycin 01:30: # 15 gm, 0 H ermann 0.0035 00 Refill(s) MG/MG / Polymyxin B 10 UNT/MG / Pramoxine hydrochlori de 0.01 MG/MG Topical Ointment [Neosporin Plus Maximum Strength] Lidocaine No Notes: Memori a Hydrochlori 09-21 Preservati l de 10 MG/ML 01:18: ve free. He rmann Injectable 00 (Same as: Solution Xylocaine MPF) LET topical No 3 mL, Memor ia 09-21 Route: l 00:31: TOP, ONCE, Drug form: GEL, Priority: Stat, Start date: 09/20/17 19:31:00 CDT, Stop date: 09/20/17 19:31:00 CDT Depo-Neurological Physiotherapist Yes 400 mg, Mem oria a -19 IM, 0 l 17:44: Refill(s) tramadol Yes 50 mg = 1 Pietro kelli hydrochlori -19 tab, PO, l de 50 MG 17:30: BID, X 3 [place] nn Oral Tablet 00 day, # 6 tab, 0 Refill(s) Ketorolac No 60 mg, Memori a 06-05 Route: IM, l 17:27: Drug form: [place] 00 INJ, ONCE, Dosing Weight 60.114, kg, Priority: STAT, Start date: 06/05/16 11:27:00 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 (Same as: Tylenol with Codeine # 3) promethazin No Route: IV, Memoria e (ANES) 12-02 Drug form: l 13:58: INJ, ONCE, Stop date: 12/03/15 8:58:00 CDT succinylcho No Route: IV, Memoria line (ANES) 12-02 Drug form: l 13:53: INJ, ONCE, Stop date: 12/03/15 8:53:00 CDT lidocaine No Route: IV, Me moria (ANES) 12-02 Drug form: l 13:53: INJ, ONCE, Stop date: 12/03/15 8:53:00 CDT fentaNYL No Route: IV, Mem oria (ANES) 12-02 Drug form: l 13:53: INJ, ONCE, Stop date: 12/03/15 8:53:00 CDT morphine No Route: IV, Mem oria Sulfate 12-02 Drug form: l (ANES) 13:53: INJ, ONCE, Perlita Stop date: 12/03/15 8:53:00 CDT propofol No Route: IV, Mem oria (ANES) 12-02 Drug form: l 13:53: INJ, ONCE, Stop date: 12/03/15 8:53:00 CDT rocuronium No Route: IV, M emoria (ANES) 12-02 Drug form: l 13:53: INJ, ONCE, Stop date: 12/03/15 8:53:00 CDT midazolam No Route: IV, Me moria (ANES) 12-02 Drug form: l 13:48: SOLN, 00 ONCE, Stop date: 12/03/15 8:48:00 CDT acetaminoph No Route: IV, Memoria en (ANES) 12-02 Drug form: l (ANES) 13:10: INJ, Start Perlita nn date: 12/03/15 8:10:00 CDT, Stop date: 12/03/15 9:10:00 CDT cefOXitin No Route: IV, Me moria (ANES) 12-02 Drug form: l (ANES) 13:00: INJ, Start Perlita nn date: 12/03/15 8:00:00 CDT, Stop date: 12/03/15 9:00:00 CDT LR 1000 mL No Route: IV, M emoria INJ (ANES) 12-02 Total l 13:00: Volume: [place] 00 1,000, Start date: 12/03/15 8:00:00 CDT, Stop date: 12/03/15 9:00:00 CDT Insulin No 5 unit, Memoria regular 12-02 Route: l 12:15: SUB-Q, [place] 00 ONCE, Dosing Weight 55.909, kg, Start date: 12/03/15 7:15:00 CDT, Stop date: 12/03/15 7:15:00 CDT Calcium No 1,000 mL, Memor ia Chloride 12-02 Rate: 25 l 0.0014 12:09: ml/hr, [place] MEQ/ML / 00 Infuse Potassium over: 40 Chloride hr, Route: 0.004 IV, Dosing MEQ/ML / Weight Sodium 55.909 kg, Chloride Total 0.103 Volume: MEQ/ML / 1,000, Sodium Start Lactate date: 0.028 12/03/15 MEQ/ML 7:09:00 Injectable CDT, Solution Duration: 1 doses or times, Stop date: 12/04/15 23:08:00 CDT Insulin No Notes: Memoria regular 12-02 (Same as: l 12:09: Humulin R [place] and NovoLIN R) WASTE: F/P - Black; E - Municipal Trash Bin (Do not shake) Promethazin No Notes: Do M emoria e 12-02 not give l 12:00: IV push. [place] 00 (Same as: Phenergan) Morphine No Notes: Memoria 7-18 (Same l 12:00: as:MORPhin e Sulfate) Naloxone No Notes: Memoria 7-18 Same as l 12:00: Narcan Flumazenil No Notes: Memor ia -18 (Same as: l 12:00: Romazicon) Acetaminoph No Notes: Pietro kelli en -18 Infuse l 12:00: over 15 minutes Do not exceed 4gm/day of acetaminop hen MEDICATION WASTE Product Size: 1000 mg Product Wasted: ___ mg Hydralazine No Notes: Pietro kelli -18 (Same as: l 12:00: Apresoline ) Push over 5 minutes Labetalol No Notes: Memori a -18 (Same as: l 12:00: Normodyne, Trandate) Push over 2 minutes Give bolus over 2-3 minutes. Mefoxin No Notes: Memoria -18 (Same As: l 11:00: Mefoxin) Lactated No 1,000 mL, Pietro kelli Ringers 18 Rate: 100 l 1,000 mL 10:03: ml/hr, Infuse over: 10 hr, Route: IV, Dosing Weight 55.909 kg, Total Volume: 1,000, Start date: 12/03/15 5:03:00 CDT, Duration: 30 day, Stop date: 01/02/16 5:02:00 CDT promethazin Yes 25 mg = 1 M emoria e 25 mg 7-14 tab, PO, l oral tablet 17:22: Q4H, PRN He rm 00 Nausea/Vom iting, # 15 tab, 0 Refill(s) Humalog 100 Yes 10 unit, Me moria units/mL 7-14 SUB-Q, l 17:21: TID, 0 [place] 00 Refill(s) insulin Yes 20 unit, Memori a detemir 100 7-14 SUB-Q, l UNT/ML 17:21: Bedtime, 0 [place] nn Injectable 00 Refill(s) Solution [Levemir] Dicyclomine Yes 10 mg = 1 M emoria Hydrochlori 7-14 cap, PO, l de 10 MG 17:14: TID, 0 [place] Oral 00 Refill(s) Capsule [Bentyl] Kinevac + No Notes: Memori a sodium 7-07 (Same as: l chloride 16:00: Kinevac) [place] nn 0.9% INJ 50 00 mL Metoclopram Yes 10 mg = 1 M emoria mark 10 MG 6-30 tab, PO, l Oral Tablet 17:28: QID, PRN He rmann [Reglan] 00 nausea, X 7 day, # 28 tab, 0 Refill(s) Dicyclomine Yes 10 mg = 1 M emoria Hydrochlori 6-30 cap, PO, l de 10 MG 17:28: QID, # 28 Herm reynaldo Oral 00 cap, 0 Capsule Refill(s) [Bentyl] Morphine No Notes: Memoria 6-30 (Same l 16:45: as:MORPhin [place] 00 e Sulfate) Reglan No Notes: Memoria 6-30 (Same as: l 16:45: Reglan) [place] 00 Promethazin No 25 mg, Pietro kelli e 6-30 Route: l 14:15: IVPB, [place] 00 ONCE, Dosing Weight 54.233, kg, Priority: STAT, Start date: 11/15/15 9:15:00 CDT, Stop date: 11/15/15 9:15:00 CDT Sodium No 1,000 mL, Memori a Chloride 30 1,000 l 0.154 14:14: ml/hr, [place] MEQ/ML 00 Infuse Injectable Over: 1 Solution hr, Route: IV, ONCE, Priority: STAT, Dosing Weight 54.233 kg, Start date: 11/15/15 9:14:00 CDT, Duration: 1 doses or times, Stop date: 11/15/15 9:14:00 CDT Ketorolac No 30 mg, Memori a 6-30 Route: l 14:14: IVP, ONCE, [place] 00 Dosing Weight 54.233, kg, Priority: STAT, Start date: 11/15/15 9:14:00 CDT, Stop date: 11/15/15 9:14:00 CDT insulin 2014-05 No Notes: Memoria detemir 2-21 Same as l 15:00: Levemir Do [place] 00 not hold insulin without contacting prescriber "single patient use only" Humalog 100 2014-05 Yes 10 unit, Me moria units/mL 2-21 SUB-Q, l 14:34: TID-Before [place] 00 Meals, # 10 mL, 0 Refill(s) 3 ML 2014-05 No 10 unit, Memoria Insulin, 2-21 SUB-Q, l Aspart, 14:06: BID, # 1 Booker n Human 100 00 pen(s), 0 UNT/ML Refill(s) Prefilled Syringe [NovoLog] Miconazole 2014-05 Yes 100 mg = 1 M emoria Nitrate 100 2-21 supp, VAG, l MG Vaginal 14:06: Bedtime, # H ermann Suppository 00 7 supp, 0 [Monistat] Refill(s) metoclopram 2014-05 Yes 10 mg = 2 M emoria mark 5 mg/mL 2-21 mL, IVP, l injectable 14:06: Q6H, PRN Her maurer solution 00 Nausea & Vomiting, 0 Refill(s) 3 ML 2014-05 Yes 20 unit, Memoria insulin 2-21 SUB-Q, l detemir 100 14:06: Bedtime, # [place] UNT/ML 00 1 pen(s), Prefilled 3 Syringe Refill(s) [Levemir] insulin 2014-05 Yes 20 unit, Memori a detemir 100 2-21 SUB-Q, l units/mL 14:06: BID, # 100 Her maurer subcutaneou 00 mL, 0 s solution Refill(s) pantoprazol 2014-05 Yes 40 mg, Pietro kelli e 40 mg 2-21 IVP, l intravenous 14:06: Before Herm reynaldo injection 00 Dinner, 0 Refill(s) NovoLog 2014-05 No Notes: Memoria 2-21 Roll in l 13:30: palms of [place] 00 hands gently; Do not shake vigorously . (Same as: NovoLOG) "single patient use only" Stable for 28 days at room temperatur e. Expires in days from ____Date Miconazole 2014-05 No Notes: Memor ia Nitrate 100 2-21 (Same as: l MG Vaginal 03:00: Monistat-7 H ermann Suppository 00 ) For [Monistat] vaginal use only. insulin 2014-05 No Notes: Memoria detemir 2-20 Same as l 23:00: Levemir Do [place] 00 not hold insulin without contacting prescriber "single patient use only" NovoLog 2014-05 No Notes: Memoria 2-20 Roll in l 22:30: palms of [place] 00 hands gently; Do not shake vigorously . (Same as: NovoLOG) "single patient use only" Stable for 28 days at room temperatur e. Expires in days from ____Date Acetaminoph 2014-05 No Notes: Pietro kelli en 325 MG / 2-20 Same as l Hydrocodone 18:31: [place] Perlita nn Bitartrate 00 325-7.5mg 7.5 MG Oral Do not Tablet exceed [[place] 4gm/day of 7.5/325] acetaminop hen. NovoLog 2014-05 No Notes: Memoria 2-20 Roll in l 17:30: palms of [place] 00 hands gently; Do not shake vigorously . (Same as: NovoLOG) "single patient use only" Stable for 28 days at room temperatur e. Expires in days from ____Date Levemir 2014-05 No Notes: Memoria 2-20 Same as l 15:48: Levemir Do [place] 00 not hold insulin without contacting prescriber "single patient use only" Insulin, 2014-05 No Notes: Memoria Aspart, 2-20 Roll in l Human 15:06: palms of [place] 00 hands gently; Do not shake vigorously . (Same as: NovoLOG) "single patient use only" Stable for 28 days at room temperatur e. Expires in days from ____Date Dextrose 2014-05 No 25 gm, 50 Pietro kelli 50% Syringe 2-20 mL, Route: l 15:06: IVP, Drug [place] 00 Form: INJ, Dosing Weight 55, kg, PRN, PRN Blood Glucose Results, Start date: 05/06/15 9:06:00, Duration: 30 day, Stop date: 06/05/15 9:05:00 Glucagon 2014-05 No 1 mg, Memoria 2-20 Route: IM, l 15:06: Drug form: [place] 00 PDR/INJ, PRN, Dosing Weight 55, kg, PRN Blood Glucose Results, Start date: 05/06/15 9:06:00, Duration: 30 day, Stop date: 06/05/15 9:05:00 Levemir 2014-05 No Notes: Memoria 2-20 Same as l 13:57: Levemir Do [place] 00 not hold insulin without contacting prescriber "single patient use only" Morphine 2014-05 No Notes: Memoria 2-19 (Same l 23:42: as:MORPhin [place] 00 e Sulfate) potassium 2014-05 No Notes: Memori a phosphate + 2-19 (Same as: l Sodium 16:21: K [place] Chloride 00 Phosphate. 0.9% IV 250 ) 1 mMol mL phoshate has 1.47 mEq potassium Infuse over 4 hours Reglan 2014-05 No Notes: Memoria 2-19 (Same as: l 15:04: Reglan) [place] 00 Nystatin 2014-05 No Notes: Memoria 100 UNT/MG 2-19 (Same l Topical 15:00: as:Mycosta Herm reynaldo Powder 00 tin, Nilstat) For external use only. tramadol 2014-05 No Notes: Not Mem oria hydrochlori 2-19 to exceed l de 50 MG 14:35: 400mg/day. Her maurer Oral Tablet 00 (Same As: Ultram) normal 2014-05 No 1,000 mL, Memori a saline 0.9% 2-19 Rate: 250 l IV 1,000 mL 10:58: ml/hr, Herm reynaldo 00 Infuse over: 4 hr, Route: IV, Dosing Weight 55 kg, Total Volume: 1,000, Start date: 05/05/15 4:58:00, Duration: 30 day, Stop date: 06/04/15 4:57:00 Morphine 2014-05 No Notes: Memoria 2-19 (Same l 10:26: as:MORPhin [place] 00 e Sulfate) potassium 2014-05 No Notes: Memori a chloride 2-19 (Same as: l 07:36: KCL) [place] 00 Infuse no faster than 10 mEq/hr if given peripheral ly. Magnesium 2014-05 No 1 gm, 100 Mem oria Sulfate 2-19 mL, Route: l 07:36: IVPB, Drug [place] 00 form: INJ, PRN, Dosing Weight 55, kg, PRN Abnormal Lab Result, Start date: 05/05/15 1:36:00, Duration: 30 day, Stop date: 06/04/15 1:35:00 potassium 2014-05 No Notes: Memori a phosphate + 2-19 (Same as: l Sodium 07:36: K [place] Chloride 00 Phosphate. 0.9% IV 250 ) 1 mMol mL phoshate has 1.47 mEq potassium Infuse over 4 hours Glucagon 2014-05 No 1 mg, Memoria 2-19 Route: IM, l 07:36: Drug form: [place] 00 PDR/INJ, PRN, Dosing Weight 55, kg, PRN Blood Glucose Results, Start date: 05/05/15 1:36:00, Duration: 30 day, Stop date: 06/04/15 1:35:00 D5W 1/2NS 2014-05 No 1,000 mL, Mem oria 1,000 mL - Rate: 250 l 07:36: ml/hr, Infuse over: 4 hr, Route: IV, Dosing Weight 55 kg, Total Volume: 1,000, Start date: 05/05/15 1:36:00, Duration: 30 day, Stop date: 06/04/15 1:35:00 Dextrose 2014-05 No 25 gm, 50 Pietro kelli 50% Syringe 2-19 mL, Route: l 07:36: IVP, Drug [place] 00 Form: INJ, Dosing Weight 55, kg, PRN, PRN Blood Glucose Results, Start date: 05/05/15 1:36:00, Duration: 30 day, Stop date: 06/04/15 1:35:00 Insulin 2014-05 No Notes: Memoria (regular) 2-19 (Same as: l Titrate IV 07:36: Humulin R He rmann additive 00 and 100 unit + NovoLIN R) Sodium (Do not Chloride shake) 0.9% (titrate) 99 mL normal 2014-05 No 1,000 mL, Memori a saline 0.9% 2-19 Rate: l IV 1,000 mL 07:36: 1,000 [place] nn 00 ml/hr, Infuse over: 1 hr, Route: IV, Dosing Weight 55 kg, Total Volume: 1,000, Start date: 05/05/15 1:36:00, Duration: 1 doses or times, Stop date: 05/05/15 2:35:00 Phenergan 2014-05 No 12.5 mg, Pietro kelli 2-19 50 mL, l 01:52: Route: [place] 00 IVPB, Drug form: SOLN, Q4H, Dosing Weight 56.364, kg, PRN Nausea & Vomiting, Start date: 05/04/15 19:52:00, Duration: 1 day, Stop date: 05/05/15 19:51:00 pantoprazol 2014-05 No Notes: For Memoria e 2-19 IV push l 01:49: reconstitu Randal 00 te with 10 ml 0.9% sodium chloride and push over 2 minutes. (Same as: Protonix) Insulin, 2014-05 No Notes: Memoria Aspart, 2-19 Roll in l Human 01:46: palms of [place] 00 hands gently; Do not shake vigorously . (Same as: NovoLOG) "single patient use only" Stable for 28 days at room temperatur e. Expires in days from ____Date Dextrose 2014-05 No 25 gm, 50 Pietro kelli 50% Syringe 2-19 mL, Route: l 01:46: IVP, Drug [place] 00 Form: INJ, Dosing Weight 56.364, kg, PRN, PRN Blood Glucose Results, Start date: 05/04/15 19:46:00, Duration: 30 day, Stop date: 06/03/15 19:45:00 Glucagon 2014-05 No 1 mg, Memoria 2-19 Route: IM, l 01:46: Drug form: [place] 00 PDR/INJ, PRN, Dosing Weight 56.364, kg, PRN Blood Glucose Results, Start date: 05/04/15 19:46:00, Duration: 30 day, Stop date: 06/03/15 19:45:00 insulin 2014-05 No Notes: Memoria detemir 07-06 Same as l 01:46: Levemir Do not hold insulin without contacting prescriber "single patient use only" Acetaminoph 2014-05 No Notes: Do Bri figueredoa en 07-06 not exceed l 01:40: 4 gm/day. [place] 00 (Same as: Tylenol) Morphine 2014-05 No Notes: Memoria - (Same l 01:40: as:MORPhin [place] 00 e Sulfate) Morphine 2014-05 No Notes: Memoria - (Same l 00:05: as:MORPhin [place] 00 e Sulfate) Phenergan 2014-05 No 25 mg, 50 Mem oria 2-18 mL, Route: l 23:49: IVPB, Drug form: SOLN, ONCE, Dosing Weight 56.364, kg, Priority: STAT, Start date: 05/04/15 17:49:00, Stop date: 05/04/15 17:49:00 Insulin 2014-05 No 60 units) Pietro kelli regular 2-18 Stable for l 23:34: 28 days at [place] 00 room [facility] e Expires in days from ____Date Sodium 2014-05 No 2,000 mL, Memori a Chloride 2-18 2000 l 0.154 22:44: ml/hr, [place] MEQ/ML 00 Infuse Injectable Over: 1 Solution hr, Route: IV, 2,000, Drug form: INJ, ONCE, Priority: STAT, Dosing Weight 56.364 kg, Start date: 05/04/15 16:44:00, Duration: 1 doses or times, Stop date: 05/04/15 16:44:00 Glucagon 2014-05 No 1 mg, Memoria 2-18 Route: IM, l 20:31: Drug form: [place] 00 PDR/INJ, PRN, Dosing Weight 56.051, kg, PRN Blood Glucose Results, Start date: 05/04/15 14:31:00, Duration: 30 day, Stop date: 06/03/15 14:30:00 Sodium 2014-05 No 1,000 mL, Memori a Chloride 2-18 1,000 l 0.154 20:31: ml/hr, [place] MEQ/ML 00 Infuse Injectable Over: 1 Solution hr, Route: IV, 1,000, Drug form: INJ, ONCE, Priority: STAT, Dosing Weight 56.051 kg, Start date: 05/04/15 14:31:00, Duration: 1 doses or times, Stop date: 05/04/15 14:31:00 Saline 2014-05 No Notes: Memoria Flush 0.9% 2-18 (Same as: l 20:31: BD [place] 00 Posiflush) Dextrose 2014-05 No 25 gm, 50 Pietro kelli 50% Syringe 2-18 mL, Route: l 20:31: IVP, Drug [place] 00 Form: INJ, Dosing Weight 56.051, kg, PRN, PRN Blood Glucose Results, Start date: 05/04/15 14:31:00, Duration: 30 day, Stop date: 06/03/15 14:30:00 lidocaine 2014-05 Yes Notes: Memori a 1% 1-11 Preservati l 20:11: ve free. [place] 00 (Same as: Xylocaine MPF) NovoLog No Notes: Memoria 12-22 Roll in l 02:00: palms of [place] 00 hands gently; Do not shake vigorously . (Same as: NovoLOG) "single patient use only" Stable for 28 days at room [place] [facility]. Expires in days from ____Date Metoclopram Yes 10 mg = 1 M emoria mark 10 MG 12-21 tab, PO, l Oral Tablet 15:27: QID-Before [place] [Reglan] 00 Meals, PRN nausea and vomiting, X 14 day, # 56 tab, 0 Refill(s) Humalog 100 Yes Special Mem oria units/mL 12-21 Instructio l 15:26: ns: Inject [place] 00 as directed before breakfast, lunch, and dinner. Do not take at bedtime unless instructed by your doctor. Insulin Yes 35 unit, Memori a Glargine 12-21 SUB-Q, l 100 UNT/ML 15:24: Bedtime, # H ermann Injectable 00 10 mL, 0 Solution Refill(s) [Lantus] Levemir No Notes: Memoria 12-21 Same as l 02:00: Levemir Do not hold insulin without contacting prescriber "single patient use only" Insulin, No Notes: Memoria Aspart, 12-21 Roll in l Human 00:50: palms of [place] hands gently; Do not shake vigorously . (Same as: NovoLOG) "single patient use only" Stable for 28 days at room temperatur e. Expires in days from ____Date Dextrose No 12.5 gm, Memor ia 50% Syringe 12-21 25 mL, l 00:50: Route: [place] 00 IVP, Drug Form: INJ, Dosing Weight 59.002, kg, PRN, PRN Blood Glucose Results, Start date: 12/20/14 19:50:00, Duration: 30 day, Stop date: 01/19/15 19:49:00 Glucagon No 1 mg, Memoria 12-21 Route: IM, l 00:50: Drug form: [place] PDR/INJ, PRN, Dosing Weight 59.002, kg, PRN Blood Glucose Results, Start date: 12/20/14 19:50:00, Duration: 30 day, Stop date: 01/19/15 19:49:00 Phenergan No 12.5 mg, Pietro kelli 12-20 50 mL, l 18:09: Route: [place] IVPB, Drug form: SOLN, Q4H, Dosing Weight 59.002, kg, PRN Nausea & Vomiting, Start date: 12/20/14 13:09:00, Duration: 30 day, Stop date: 01/19/15 13:08:00 Levemir No Notes: Memoria 12-20 Same as l 17:48: Levemir Do not hold insulin without contacting prescriber "single patient use only" Calcium No 3 gm, 30 Memori a Gluconate 8-05 mL, Route: l 14:18: IVPB, PRN, [place] 00 Dosing Weight 59.002, kg, PRN Abnormal Lab Result, For NON-ICU Patients Only., Start date: 12/20/14 9:18:00, Duration: 30 day, Stop date: 01/19/15 9:17:00 Magnesium No 2 gm, 50 Pietro kelli Sulfate 8-05 mL, Route: l 14:18: IVPB, Drug [place] 00 form: INJ, PRN, Dosing Weight 59.002, kg, PRN Abnormal Lab Result, For NON-ICU Patients Only., Start date: 12/20/14 9:18:00, Duration: 30 day, Stop date: 01/19/15 9:17:00 Magnesium No Notes: Memori a Oxide 8-05 (Same as: l 14:18: Mag-Ox [place] 00 400) Magnesium oxide 233ys=413j g elemental magnesium Dose=____m g magnesium oxide (___mg elemental magnesium) sodium No 30 mmol, Memoria phosphate + 8-05 10 mL, l Sodium 14:18: Route: [place] Chloride 00 IVPB, PRN, 0.9% IV 250 Dosing mL Weight 59.002, kg, PRN Abnormal Lab Result, For NON-ICU Patients Only., Start date: 12/20/14 9:18:00, Duration: 30 day, Stop date: 01/19/15 9:17:00 potassium No Notes: Memori a phosphate-s 8-05 (Same as: l odium 14:18: Neutra-Irina Booker n phosphate 00 s) Each 250 mg-278 1.25 gm mg-164 mg pkt has oral powder 250mg phosphorou s. Mix w/2.5oz water and stir. potassium No Notes: Memori a chloride 8-05 Infuse at l 14:18: a rate of [place] 00 10 mEq/hr. (Same as: KCL) potassium No Notes: Memori a phosphate + 8-05 (Same as: l Sodium 14:18: K [place] Chloride 00 Phosphate. 0.9% IV 250 ) 1 mMol mL phoshate has 1.47 mEq potassium Infuse over 4 hours POLYETHYLEN No Notes: Pietro kelli E GLYCOL 8-05 Dissolve l 3350 14:00: in 8 oz of [place] 00 water or juice. (Same as: Miralax) Docusate No Notes: Memoria 8-05 (Same as: l 14:00: Colace) [place] 00 (Do Not Crush) Reglan No Notes: Memoria 12-20 (Same as: l 09:00: Reglan) [place] 00 Reglan No Notes: Memoria 12-20 (Same as: l 02:48: Reglan) [place] 00 Dextrose No 25 gm, 50 Pietro kelli 50% Syringe 8-05 mL, Route: l 01:01: IVP, Drug [place] 00 Form: INJ, Dosing Weight 57.273, kg, PRN, PRN Blood Glucose Results, Start date: 12/19/14 20:01:00, Duration: 30 day, Stop date: 01/18/15 20:00:00 Insulin No Notes: Memoria regular 100 12-20 (Same as: l unit + 01:01: Humulin R Booker n Sodium 00 and Chloride NovoLIN R) 0.9% (Do not (titrate) shake) 99 mL Glucose 50 No 1,000 mL, Me moria MG/ML / 12-20 Rate: 125 l Sodium 00:17: ml/hr, [place] Chloride 00 Infuse 0.0769 over: 8 MEQ/ML hr, Route: Injectable IV, Dosing Solution Weight 57.273 kg, Total Volume: 1,000, Start date: 12/19/14 19:17:00, Duration: 30 day, Stop date: 01/18/15 19:16:00 Acetaminoph No Notes: Pietro kelli en 325 MG / 12-20 (Same as: l Hydrocodone 00:17: [place] Perlita nn Bitartrate 00 325/5) Do 5 MG Oral not exceed Tablet 4gm/day of acetaminop hen. Acetaminoph No Notes: Do M emoria en 12-20 not exceed l 00:17: 4 gm/day. [place] 00 (Same as: Tylenol) Ondansetron No Notes: Pietro kelli 12-20 (Same as: l 00:17: Zofran) [place] 00 MEDICATION WASTE Product Size: 4 mg Product Waste : 0 mg Docusate No Notes: Memoria 12-20 (Same as: l 00:17: Colace) [place] 00 (Do Not Crush) D5NS + KCL No Notes: Memor ia 20mEq/L 12-20 PREMIX IV l 1000ml 00:17: - Do Not [place] (Premix) 00 Alter 1,000 mL Saline No Notes: Memoria Flush 0.9% 12-20 (Same as: l 00:17: BD [place] 00 Posiflush) Al No Notes: Memoria hydroxide/M 12-20 (aluminum l g 00:17: hydroxide- [place] hydroxide/s 00 magnesium imethicone hyd-simeth 200 mg-200 icone mg-20 mg/5 200-200-20 mL oral mg/5ml 30 suspension ml ud PADMAJA) Diphenhydra No Notes: Pietor kelli mine 12-20 (Same as: l 00:17: Benadryl) [place] 00 Morphine No Notes: Memoria 12-20 (Same l 00:17: as:MORPhin [place] 00 e Sulfate) Oxycodone No Notes: Memori a Hydrochlori 12-20 (Same as: l de 5 MG 00:17: Roxicodone Herm reynaldo Oral Tablet 00 ) Sodium No 1,000 mL, Memori a Chloride 12-19 Rate: 150 l 0.154 23:54: ml/hr, [place] MEQ/ML 00 Infuse Injectable over: 6.7 Solution hr, Route: IV, Dosing Weight 57.273 kg, Total Volume: 1,000, Start date: 12/19/14 18:54:00, Duration: 30 day, Stop date: 01/18/15 18:53:00 1/2 NS 1000 No 1,000 mL, M emoria mL 12-19 Rate: 150 l 23:53: ml/hr, [place] 00 Infuse over: 6.7 hr, Route: IV, Dosing Weight 57.273 kg, Total Volume: 1,000, Start date: 12/19/14 18:53:00, Duration: 30 day, Stop date: 01/18/15 18:52:00 Insulin No Notes: Memoria regular 100 12-19 (Same as: l unit + NS 22:43: Humulin R Her maurer 99 mL 00 and NovoLIN R) (Do not shake) Morphine No Notes: Memoria 12-19 (Same l 20:38: as:MORPhin [place] 00 e Sulfate) Protonix No Notes: For Mem oria 12-19 IV push l 20:38: reconstitu [place] 00 te with 10 ml 0.9% sodium chloride and push over 2 minutes. (Same as: Protonix) Dextrose No 12.5 gm, Memor ia 50% Syringe 12-19 25 mL, l 20:20: Route: [place] 00 IVP, Drug Form: INJ, Dosing Weight 57.273, kg, PRN, PRN Blood Glucose Results, Start date: 12/19/14 15:20:00, Duration: 30 day, Stop date: 01/18/15 15:19:00 Glucagon No 1 mg, Memoria 12-19 Route: IM, l 20:20: Drug form: [place] 00 PDR/INJ, PRN, Dosing Weight 57.273, kg, PRN Blood Glucose Results, Start date: 12/19/14 15:20:00, Duration: 30 day, Stop date: 01/18/15 15:19:00 Sodium No 1,000 mL, Memori a Chloride 12-19 1,000 l 0.154 20:20: ml/hr, [place] MEQ/ML 00 Infuse Injectable Over: 1 Solution hr, Route: IV, 1,000, Drug form: INJ, ONCE, Priority: STAT, Dosing Weight 57.273 kg, Start date: 12/19/14 15:20:00, Duration: 1 doses or times, Stop date: 12/19/14 15:20:00 Saline No Notes: Memoria Flush 0.9% 12-19 (Same as: l 20:20: BD [place] 00 Posiflush) Phenergan No 25 mg, 50 Mem oria -04 mL, Route: l 20:20: IVPB, Drug form: SOLN, ONCE, Dosing Weight 57.273, kg, Priority: STAT, Start date: 12/19/14 15:20:00, Stop date: 12/19/14 15:20:00 promethazin Yes 25 mg = 1 M emoria e 25 mg 5-27 supp, MD, l rectal 02:16: Q6H, PRN [place] suppository 00 Nausea & Vomiting, X 3 day, # 9 supp, 0 Refill(s) Sodium No 1,000 mL, Memori a Chloride 10-10 1,000 l 0.154 22:46: ml/hr, [place] MEQ/ML 00 Infuse Injectable Over: 1 Solution hr, Route: IV, 1,000, Drug form: INJ, ONCE, Priority: STAT, Dosing Weight 61.364 kg, Start date: 10/10/14 17:46:00, Duration: 1 doses or times, Stop date: 10/10/14 17:46:00 Insulin No 60 units) Pietro kelli regular 10-10 Stable for l 22:45: 28 days at room temperatur e Expires in days from ____Date Promethazin No 12.5 mg, Me moria e -26 50 mL, l 21:05: Route: [place] 00 IVPB, Drug form: SOLN, ONCE, Dosing Weight 61.364, kg, Priority: STAT, Start date: 10/10/14 16:05:00, Stop date: 10/10/14 16:05:00 Sodium No 1,000 mL, Memori a Chloride 10-10 1,000 l 0.154 21:05: ml/hr, [place] MEQ/ML 00 Infuse Injectable Over: 1 Solution hr, Route: IV, 1,000, Drug form: INJ, ONCE, Priority: STAT, Dosing Weight 61.364 kg, Start date: 10/10/14 16:05:00, Duration: 1 doses or times, Stop date: 10/10/14 16:05:00 Ketorolac No 4 days Memor ia 10-10 l 21:05: MEDICATION WASTE Product Size: 30 mg Product Wasted: 0 mg Saline No Notes: Memoria Flush 0.9% 10-10 (Same as: l 21:00: BD Posiflush) Carisoprodo Yes 350 mg = 1 Memoria l 350 MG 4-23 tab, PO, l Oral Tablet 22:55: TID, X 7 He rmann [Soma] 00 day, # 21 tab, 0 Refill(s) Cefuroxime Yes 500 mg = 1 M emoria 500 MG Oral 4-23 tab, PO, l Tablet 22:55: BID, X 7 [place]andal [Ceftin] 00 day, # 14 tab, 0 Refill(s) Insulin, Yes 5 unit, Memori a Aspart, - SUB-Q, l Human 22:55: TID-Before Booker n 00 Meals, 0 Refill(s) Benadryl No 25 mg, 1 Memor ia 4-23 tab, l 14:04: Route: PO, Drug form: TAB, Q6H, Dosing Weight 60.4, kg, PRN as needed for allergy symptoms, Start date: 09/07/14 9:04:00, Duration: 30 day, Stop date: 10/07/14 9:03:00 Benadryl No Notes: Memoria - (Same as: l 22:29: Benadryl) Levemir No Notes: Memoria FlexPen - Same as l 02:00: Levemir Do not hold insulin without contacting prescriber "single patient use only" Insulin, No Notes: Memoria Aspart, - Roll in l Human 16:30: palms of hands gently; Do not shake vigorously . (Same as: NovoLOG) "single patient use only" Stable for 28 days at room temperatur e. Expires in days from ____Date Levemir No Notes: Memoria FlexPen - Same as l 16:00: Levemir Do not hold insulin without contacting prescriber "single patient use only" Glucagon No 1 mg, Memoria 09-05 Route: IM, l 14:58: Drug form: [place] 00 PDR/INJ, PRN, Dosing Weight 60.4, kg, PRN Blood Glucose Results, Start date: 09/05/14 9:58:00, Duration: 30 day, Stop date: 10/05/14 9:57:00 Dextrose No 25 gm, 50 Pietro kelli 50% Syringe 4-21 mL, Route: l 14:58: IVP, Drug [place] 00 Form: INJ, Dosing Weight 60.4, kg, PRN, PRN Blood Glucose Results, Start date: 09/05/14 9:58:00, Duration: 30 day, Stop date: 10/05/14 9:57:00 Lantus No 12 unit, Memoria 09-05 Route: l 14:57: SUB-Q, [place] 00 ONCE, Dosing Weight 60.4, kg, Start date: 09/05/14 9:57:00, Stop date: 09/05/14 9:57:00 Phenergan No 12.5 mg, Pietro kelli -21 50 mL, l 14:53: Route: [place] 00 IVPB, Drug form: SOLN, Q4H, Dosing Weight 60.4, kg, PRN Nausea & Vomiting, Start date: 09/05/14 9:53:00, Duration: 30 day, Stop date: 10/05/14 9:52:00 Protonix No Notes: For Mem oria 09-05 IV push l 12:30: reconstitu [place] 00 te with 10 ml 0.9% sodium chloride and push over 2 minutes. (Same as: Protonix) Glucose 50 No 1,000 mL, Me moria MG/ML / 09-05 Rate: 80 l Sodium 06:54: ml/hr, [place] Chloride 00 Infuse 0.0769 over: 12.5 MEQ/ML hr, Route: Injectable IV, Dosing Solution Weight 60.4 kg, Total Volume: 1,000, Start date: 09/05/14 1:54:00, Stop date: 10/05/14 1:53:00 Zithromax No Notes: Memori a 09-05 Same as: l 04:00: Zithromax [place] 00 Rocephin No Notes: Memoria 09-05 (Same As: l 03:00: Rocephin). [place] 00 Use with 100ml NS mini-bag PLUS and infuse over 30 min MEDICATION WASTE Product Size: 1000 mg Product Wasted: ___ mg Dilaudid No Notes: Memoria 4-21 Same as: l 01:00: Dilaudid [place] 00 Insulin Yes 36 unit, Memori a Glargine 4-20 SUB-Q, l 100 UNT/ML 21:10: Bedtime, 0 H ermann Injectable 00 Refill(s) Solution [Lantus] Insulin, Yes Special Memori a Aspart, 4-20 Instructio l Human 100 21:10: ns: Inject He rmann UNT/ML 00 6 units Injectable before Solution breakfast, [NovoLog] lunch, and dinner. Plus sliding scale depending on blood sugar Phenergan No 12.5 mg, Pietro kelli 4-20 50 mL, l 20:54: Route: IVPB, Drug form: SOLN, ONCE, Dosing Weight 61.364, kg, PRN Nausea & Vomiting, Start date: 09/04/14 15:54:00, Stop date: 10/04/14 15:53:00 Insulin No Notes: Memoria (regular) 4-20 (Same as: l Titrate IV 20:07: Humulin R He rmann additive 00 and 100 unit + NovoLIN R) Sodium (Do not Chloride shake) 0.9% (titrate) 99 mL Dextrose No 12.5 gm, Memor ia 50% Syringe 4-20 25 mL, l 20:07: Route: IVP, Drug Form: INJ, Dosing Weight 61.364, kg, PRN, PRN Blood Glucose Results, Start date: 09/04/14 15:07:00, Duration: 30 day, Stop date: 10/04/14 15:06:00 potassium No Notes: Memori a phosphate + 4-20 (Same as: l Sodium 20:07: K Chloride 00 Phosphate. 0.9% IV 250 ) 1 mMol mL phoshate has 1.47 mEq potassium Infuse over 4 hours Glucagon No 1 mg, Memoria 4-20 Route: IM, l 20:07: Drug form: [place] 00 PDR/INJ, PRN, Dosing Weight 61.364, kg, PRN Blood Glucose Results, Start date: 09/04/14 15:07:00, Duration: 30 day, Stop date: 10/04/14 15:06:00 potassium 2015-0 No Notes: Memori a chloride 4-20 (Same as: l 20:07: KCL) [place] 00 Infuse no faster than 10 mEq/hr if given peripheral ly. Magnesium 2015-0 No 1 gm, 100 Mem oria Sulfate 4-20 mL, Route: l 20:07: IVPB, Drug [place] form: INJ, PRN, Dosing Weight 61.364, kg, PRN Abnormal Lab Result, Start date: 09/04/14 15:07:00, Duration: 30 day, Stop date: 10/04/14 15:06:00 Sodium 2015-0 No 1,000 mL, Memori a Chloride 4-20 Rate: 250 l 0.154 20:07: ml/hr, [place] MEQ/ML 00 Infuse Injectable over: 4 Solution hr, Route: IV, Dosing Weight 61.364 kg, Total Volume: 1,000, When Finger stick blood glucose values remain ABOVE 250 mg/dL administer until BG is less than 250 mg/dL., Start date: 09/04/14 15:07:00, Duration:. .. D5NS 1,000 0 No 1,000 mL, Me moria mL 4-20 Rate: 250 l 20:07: ml/hr, Infuse over: 4 hr, Route: IV, Dosing Weight 61.364 kg, Total Volume: 1,000, Start date: 09/04/14 15:07:00, Duration: 30 day, Stop date: 10/04/14 15:06:00 Insulin 2014-0 No 4 unit, Memoria regular 4-20 Route: l 19:51: IVP, ONCE, Dosing Weight 61.364, kg, Priority: STAT, Start date: 09/04/14 14:51:00, Stop date: 09/04/14 14:51:00 Insulin 2015-0 No Notes: Memoria regular 100 4-20 (Same as: l unit + 17:29: Humulin R Booker n Sodium 00 and Chloride NovoLIN R) 0.9% (Do not (titrate) shake) 100 mL Sodium 2015-0 No 1,000 mL, Memori a Chloride 4-20 1,000 l 0.154 17:28: ml/hr, [place] MEQ/ML 00 Infuse Injectable Over: 1 Solution hr, Route: IV, 1,000, Drug form: INJ, ONCE, Priority: STAT, Dosing Weight 61.364 kg, Start date: 09/04/14 12:28:00, Duration: 1 doses or times, Stop date: 09/04/14 12:28:00 Insulin No 60 units) Pietro kelli regular 4-20 Stable for l 17:28: 28 days at [place] 00 room temperatur e Expires in days from ____Date Dilaudid No Notes: Memoria 4-20 Same as: l 16:38: Dilaudid [place] 00 Sodium No 1,000 mL, Memori a Chloride 4-20 1,000 l 0.154 16:27: ml/hr, [place] MEQ/ML 00 Infuse Injectable Over: 1 Solution hr, Route: IV, 1,000, Drug form: INJ, ONCE, Priority: STAT, Dosing Weight 61.364 kg, Start date: 09/04/14 11:27:00, Duration: 1 doses or times, Stop date: 09/04/14 11:27:00 Phenergan No 25 mg, Memori a 4-20 Route: l 16:27: IVPB, [place] 00 ONCE, Dosing Weight 61.364, kg, Priority: STAT, Start date: 09/04/14 11:27:00, Stop date: 09/04/14 11:27:00 Saline No Notes: Memoria Flush 0.9% 4-20 (Same as: l 16:15: BD [place] 00 Posiflush) Insulin, No Notes: Memoria Aspart, 9-10 Roll in l Human 21:30: palms of [place] 00 hands gently; Do not shake vigorously . (Same as: NovoLOG) "single patient use only" Stable for 28 days at room temperatur e. Expires in days from ____Date NovoLOG No Notes: Memoria FlexPen 9-10 Roll in l 21:30: palms of [place] 00 hands gently; Do not shake vigorously . (Same as: NovoLOG) "single patient use only" Stable for 28 days at room temperatur e. Expires in days from ____Date Levemir No Notes: Memoria FlexPen -10 Same as l 19:00: Levemir [place] 00 "single patient use only" insulin Yes = 25 unit, Pietro kelli glargine 9-10 SUB-Q, l 100 18:50: Daily, # [place]andal units/mL 00 10 mL, 0 subcutaneou Refill(s) s solution Lactulose Yes 20 gm = 30 Me moria 667 MG/ML 9-10 ml, PO, l Oral 18:50: BID, Randal Solution 00 constipati on, # 240 ml, 0 Refill(s) Dulcolax No Notes: Memoria Laxative 01-25 (Same As: l 18:50: Dulcolax, [place] 00 Bisco-Lax) Humalog No 5 unit, Memoria 01-25 Route: l 18:49: SUB-Q, [place] 00 TID-Before Meals, Dosing Weight 72.545, kg, PRN, Start date: 01/25/14 13:49:00, Duration: 30 day, Stop date: 02/24/14 13:48:00, None magnesium No Notes: Memori a citrate 01-25 (Same as: l 18:03: Citrate of [place] 00 Magnesia) Levemir No Notes: Memoria FlexPen - Same as l 11:14: Levemir [place] 00 "single patient use only" Docusate No Notes: Memoria Sodium 100 01-24 (Same as: l MG Oral 14:00: Colace) [place] Capsule 00 (Do Not [Colace] Crush) Levemir No Notes: Memoria - Same as l 14:00: Levemir [place] 00 "single patient use only" Miralax No Notes: Memoria 01-24 Dissolve l 13:00: in 8 oz of [place] 00 water or juice. (Same as: Miralax) Reglan No Notes: Memoria 01-24 (Same as: l 13:00: Reglan) [place] 00 Sodium No 1,000 mL, Memori a Chloride 01-24 Rate: 125 l 0.154 10:24: ml/hr, [place] MEQ/ML 00 Infuse Injectable over: 8 Solution hr, Route: IV, Dosing Weight 65.909 kg, Total Volume: 1,000, Start date: 01/24/14 5:24:00, Duration: 30 day, Stop date: 02/23/14 5:23:00 Phenergan No 12.5 mg, Pietro kelli 01-24 50 mL, l 10:18: Route: [place] 00 IVPB, Drug form: SOLN, Q4H, Dosing Weight 65.909, kg, PRN Nausea & Vomiting, Start date: 01/24/14 5:18:00, Duration: 30 day, Stop date: 02/23/14 5:17:00 Levemir No Notes: Memoria 01-24 Same as l 10:15: Levemir "single patient use only" Sodium No 1,000 mL, Memori a Chloride 01-24 Rate: 100 l 0.154 10:14: ml/hr, [place] MEQ/ML 00 Infuse Injectable over: 10 Solution hr, Route: IV, Dosing Weight 65.909 kg, Total Volume: 1,000, Start date: 01/24/14 5:14:00, Duration: 30 day, Stop date: 02/23/14 5:13:00 Fleet Enema No 133 ml, Mem oria 01-24 Route: MD, l 10:06: Drug Form: [place] 00 VALERIE, Dosing Weight 65.909, kg, ONCE, Start date: 01/24/14 5:06:00, Stop date: 01/24/14 5:06:00 Insulin, No Notes: Memoria Aspart, 01-24 Roll in l Human 09:43: palms of [place] 00 hands gently; Do not shake vigorously . (Same as: NovoLOG) "single patient use only" Stable for 28 days at room temperatur e. Expires in days from ____Date Dextrose No 12.5 gm, Memor ia 50% Syringe 01-24 25 mL, l 09:43: Route: [place] IVP, Drug Form: INJ, Dosing Weight 65.909, kg, PRN, PRN Blood Glucose Results, Start date: 01/24/14 4:43:00, Duration: 30 day, Stop date: 02/23/14 4:42:00 Glucagon No 1 mg, Memoria 01-24 Route: IM, l 09:43: Drug form: [place] PDR/INJ, PRN, Dosing Weight 65.909, kg, PRN Blood Glucose Results, Start date: 01/24/14 4:43:00, Duration: 30 day, Stop date: 02/23/14 4:42:00 Docusate No Notes: Memoria 01-24 (Same as: l 09:42: Colace) [place] (Do Not Crush) Acetaminoph No Notes: Pietro kelli en 325 MG / 01-24 (Same as: l Hydrocodone 09:42: [place] Perlita nn Bitartrate 00 325/5) Do 5 MG Oral not exceed Tablet 4gm/day of acetaminop hen. Acetaminoph No Notes: Do M emoria en 01-24 not exceed l 09:42: 4 gm/day. Randal (Same as: Tylenol) Sodium No 1,000 mL, Memori a Chloride 01-24 1,000 l 0.154 09:41: ml/hr, [place] MEQ/ML 00 Infuse Injectable Over: 1 Solution hr, Route: IV, 1,000, Drug form: INJ, ONCE, Priority: STAT, Dosing Weight 65.909 kg, Start date: 01/24/14 4:41:00, Duration: 1 doses or times, Stop date: 01/24/14 4:41:00 Levemir No Notes: Memoria 01-24 Same as l 09:41: Levemir [place] 00 "single patient use only" Lactulose No Notes: Memori a 01-24 (Same l 09:40: as:Chronul [place] ac) Reglan No 10 mg, Memoria 01-24 Route: l 08:48: IVP, ONCE, [place] 00 Dosing Weight 65.909, kg, Priority: STAT, Start date: 01/24/14 3:48:00, Stop date: 01/24/14 3:48:00 Insulin, No 60 units) Mem oria Regular, 01-24 Stable for l Pork 07:27: 28 days at [place] 00 room temperatur e Expires in days from ____Date Phenergan No 25 mg, 50 Mem oria 01-24 mL, Route: l 06:48: IVPB, Drug [place] 00 form: SOLN, ONCE, Dosing Weight 65.909, kg, Priority: STAT, Start date: 01/24/14 1:48:00, Stop date: 01/24/14 1:48:00 Sodium No 1,000 mL, Memori a Chloride 01-24 1,000 l 0.154 06:23: ml/hr, [place] MEQ/ML 00 Infuse Injectable Over: 1 Solution hr, Route: IV, 1,000, Drug form: INJ, ONCE, Priority: STAT, Dosing Weight 65.909 kg, Start date: 01/24/14 1:23:00, Duration: 1 doses or times, Stop date: 01/24/14 1:23:00 Morphine No Notes: Memoria 01-24 (Same l 06:23: as:MORPhin e Sulfate) Butalbital- Yes Take by [facility] AP[facility]-Caffei - mouth. [facility] e ne 14:35: of (FIORICET 37 Medicin OR) e Butalbital- Yes Take by [facility] APAP-Caffei - mouth. Colleg e ne 14:35: of (FIORICET 37 Medicin OR) e NITROFURANT Yes Take by [facility] y[facility] OIN OR - mouth. [place] 14:24: of 29 Medicin e insulin Yes Inject [place]ardo aspart 09-17 into the College (NOVOLOG) 14:24: skin 3 of 100 UNIT/ML 29 times Medicin injection daily e (before meals). Yes Take by [facility] Vit-Fe 5-03 mouth. College Sulfate-FA 14:24: of ( 29 Medicin VITAMIN PO) e NITROFURANT Yes Take by Stark yareli OIN OR 5-03 mouth. College 14:24: of 29 Medicin e insulin Yes Inject [facility] aspart 5-03 into the [place] (NOVOLOG) 14:24: skin 3 of 100 UNIT/ML 29 times Medicin injection daily e (before meals). Yes Take by [facility] Vit-Fe 5-03 mouth. [place] Sulfate-FA 14:24: of ( 29 Medicin VITAMIN PO) e Immunizations Ordered Filled Immunization Date Status Comments [facility] e Immunization Name Name Rosendo COVID-19 Rosendo COVID-19 2021-01-10 Completed Vaccine Vaccine 00:00:00 TDAP 2020-08-31 Completed [facility] 00:00:00 [facility] TDAP 2020-08-31 Completed University 00:00:00 [facility] TDAP 2020-08-31 Completed University 00:00:00 [facility] TDAP 2020-08-31 Completed University 00:00:00 [facility] TDAP 2020-08-31 Completed University 00:00:00 [facility] TDAP 2020-08-31 Completed University of 00:00:00 [facility] diphtheria/pertussi 2017-09-21 Completed Memor keri rawls, acel/tetanus 01:39:00 adult Influenza Virus 2014-02-13 Completed [facility] of Vaccine (3+ yrs) 00:00:00 [facility] Influenza Virus 2014-02-13 Completed [facility] of Vaccine (3+ yrs) 00:00:00 [facility] Influenza Virus 2014-02-13 Completed [facility] of Vaccine (3+ yrs) 00:00:00 [facility] Influenza Virus 2014-02-13 Completed [facility] of Vaccine (3+ yrs) 00:00:00 [facility] Influenza Virus 2014-02-13 Completed [facility] of Vaccine (3+ yrs) 00:00:00 [facility] Influenza Virus 2014-02-13 Completed [facility] of Vaccine (3+ yrs) 00:00:00 [facility] Influenza TIV (IM) 2013-06-08 Completed [facility] PABLO [place] 00:00:00 [facility] Influenza Virus 2013-06-08 Completed [facility]it [facility] of Vaccine (3+ yrs) 00:00:00 [facility] Influenza Virus 2013-06-08 Completed [facility]it y of Vaccine (3+ yrs) 00:00:00 [facility] Influenza Virus 2013-06-08 Completed [facility]ine (3+ yrs) 00:00:00 [facility] Influenza Virus 2013-06-08 Completed [facility] (3+ yrs) 00:00:00 [facility] Influenza Virus 2013-06-08 Completed [facility] (3+ yrs) 00:00:00 [facility] Influenza Virus 2013-06-08 Completed [facility] Vaccine (3+ yrs) 00:00:00 [facility] pneumococcal 2012-11-30 Completed [facility] 23-valent vaccine 13:02:00 Vital Signs Vital Name Observation Time Observation [...] WEIGHT 2020-05-03 13:20:00 56.246 kg Systolic blood 2021-09-03 18:24:00 124 mm[Hg] [facility] of pressure Medicine Diastolic blood 2021-09-03 18:24:00 76 mm[Hg] [facility] of pressure Medicine Heart rate 2021-09-03 18:24:00 82 /min [facility] Body height 2021-09-03 18:24:00 162.6 cm [facility] Body weight 2021-09-03 18:24:00 61.944 kg [facility] BMI 2021-09-03 18:24:00 23.44 kg/m2 [facility] Systolic blood 2021-07-04 22:17:00 127 mm[Hg] [facility] pressure Medicine Diastolic blood 2021-07-04 22:17:00 81 mm[Hg] [facility] pressure Medicine Heart rate 2021-07-04 22:17:00 71 /min [facility] Body height 2021-07-04 22:17:00 162.6 cm [facility] Body weight 2021-07-04 22:17:00 63.248 kg [facility] BMI 2021-07-04 22:17:00 23.93 kg/m2 [facility] HEIGHT 2021-06-07 08:34:00 165.1 cm WEIGHT 2021-06-07 [...] WEIGHT 2021-05-27 21:48:00 59.421 kg Systolic blood 2021-02-18 14:00:00 107 mm[Hg] [facility] pressure Medicine Diastolic blood 2021-02-18 14:00:00 72 mm[Hg] [facility] Medicine Heart rate 2021-02-18 14:00:00 75 /min [facility] Respiratory rate 2021-02-18 14:00:00 18 /min [facility] Body height 2021-02-18 14:00:00 165.1 cm [facility] Body weight 2021-02-18 14:00:00 59.875 kg [facility] BMI 2021-02-18 14:00:00 21.97 kg/m2 [facility] HEIGHT 2020-08-06 06:30:00 165.1 cm WEIGHT 2020-08-06 06:30:00 59.6 kg HEIGHT 2020-08-03 08:37:00 162.6 cm WEIGHT 2020-08-03 08:37:00 58.06 kg Systolic blood 2020-05-31 19:55:00 105 mm[Hg] [facility] pressure Medicine Diastolic blood 2020-05-31 19:55:00 67 mm[Hg] [facility] Medicine Heart rate 2020-05-31 19:55:00 93 /min [facility] Body temperature 2020-05-31 19:55:00 36.78 [facility] Body height 2020-05-31 19:55:00 162.6 cm [facility] Body weight 2020-05-31 19:55:00 [facility] BMI 2020-05-31 19:55:00 22.66 [facility] Systolic blood 2020-05-31 19:55:00 105 mm[Hg] [facility] Medicine Diastolic blood 2020-05-31 19:55:00 67 mm[Hg] [facility] Medicine Heart rate 2020-05-31 19:55:00 93 /min [facility] Body temperature 2020-05-31 19:55:00 36.78 [facility] Body height 2020-05-31 19:55:00 162.6 cm [facility] Body weight 2020-05-31 19:55:00 59.875 kg [facility] BMI 2020-05-31 19:55:00 22.66 kg/m2 [facility] WEIGHT 2020-05-25 05:00:00 59.9 kg HEIGHT 2020-05-23 11:58:00 162.6 cm WEIGHT 2020-05-23 11:58:00 59.875 kg HEIGHT 2020-05-21 09:45:00 162.6 cm WEIGHT 2020-05-21 09:45:00 56.246 kg HEIGHT 2020-05-04 06:45:00 162.6 cm WEIGHT 2020-05-04 06:45:00 59.9 kg HEIGHT 2020-05-03 13:20:00 162.6 cm WEIGHT 2020-05-03 13:20:00 56.246 kg Systolic blood 2020-04-17 21:03:00 110 mm[Hg] [facility] pressure Medicine Diastolic blood 2020-04-17 21:03:00 72 mm[Hg] [facility] pressure Medicine Heart rate 2020-04-17 21:03:00 87 /min [facility] Body temperature 2020-04-17 21:03:00 37.28 [facility] Body height 2020-04-17 21:03:00 162.6 cm [facility] Body weight 2020-04-17 21:03:00 60.328 kg [facility] BMI 2020-04-17 21:03:00 22.83 kg/m2 [facility] Systolic blood 2020-04-17 21:03:00 110 mm[Hg] [facility] of pressure Medicine Diastolic blood 2020-04-17 21:03:00 72 mm[Hg] [facility] pressure Medicine Heart rate 2020-04-17 21:03:00 87 /min [facility] Body temperature 2020-04-17 21:03:00 37.28 [facility] Body height 2020-04-17 21:03:00 162.6 cm [facility] Body weight 2020-04-17 21:03:00 60.328 kg [facility] BMI 2020-04-17 21:03:00 22.83 kg/m2 [facility] WEIGHT 2019-12-07 00:00:00 58.968 kg HEIGHT 2019-12-07 00:00:00 165.1 cm Systolic blood 2021-06-08 00:30:00 123 mm[Hg] [facility] Diastolic blood 2021-06-08 00:30:00 83 mm[Hg] [facility] Heart rate 2021-06-08 00:30:00 75 /min [facility] Respiratory rate 2021-06-08 00:30:00 15 /min [facility] Oxygen saturation in 2021-06-08 00:30:00 100 /min [facility] Arterial blood by Medical Ce nter Pulse oximetry Body temperature 2021-06-07 19:00:00 36.67 [facility] Body height 2021-06-07 08:34:00 165.1 cm [facility] Body weight 2021-06-07 08:34:00 62.2 kg [facility] BMI 2021-06-07 08:34:00 22.82 kg/m2 [facility] Systolic (mm Hg) 2020-12-27 20:10:00 [facility] Diastolic (mm Hg) 2020-12-27 20:10:00 [facility] [place] Respitory Rate 2020-12-27 20:10:00 [facility] [place] Heart Rate 2020-12-27 20:10:00 [facility] Height 2020-12-27 19:00:00 165.1 cm [facility] BMI Calculated 2020-12-27 19:00:00 [facility] Weight 2020-12-27 19:00:00 [facility] [place] Systolic (mm Hg) 2020-12-27 19:00:00 [facility] [place] Diastolic (mm Hg) 2020-12-27 19:00:00 [facility] Heart Rate 2020-12-27 19:00:00 [facility] Respitory Rate 2020-12-27 19:00:00 [facility] [place] Temperature Oral (F) 2020-12-27 19:00:00 98.4 F [facility] [place] [facility] Systolic (mm Hg) 2020-10-04 23:26:00 [facility] Diastolic (mm Hg) 2020-10-04 23:26:00 [facility] [place] Heart Rate 2020-10-04 23:26:00 [facility] Respitory Rate 2020-10-04 23:26:00 [facility] Height 2020-10-04 22:20:00 165.1 cm [facility] BMI Calculated 2020-10-04 22:20:00 [facility] Weight 2020-10-04 22:20:00 [facility] Systolic (mm Hg) 2020-10-04 22:20:00 [facility] Diastolic (mm Hg) 2020-10-04 22:20:00 [facility] [place] Heart Rate 2020-10-04 22:20:00 [facility] Respitory Rate 2020-10-04 22:20:00 [facility] Temperature Oral (F) 2020-10-04 22:20:00 98.3 F [facility] Heart Rate 2020-09-24 00:52:00 [facility] [place] Respitory Rate 2020-09-24 00:52:00 [facility] [place] Systolic (mm Hg) 2020-09-24 00:52:00 [facility] [place] Diastolic (mm Hg) 2020-09-24 00:52:00 [facility] [place] Temperature Oral (F) 2020-09-23 23:58:00 98.2 F [facility] Heart Rate 2020-09-23 23:58:00 [facility] Respitory Rate 2020-09-23 23:58:00 [facility] [place] Systolic (mm Hg) 2020-09-23 23:58:00 [facility] Diastolic (mm Hg) 2020-09-23 23:58:00 [facility] Systolic (mm Hg) 2020-09-23 23:44:00 [facility] [place] Diastolic (mm Hg) 2020-09-23 23:44:00 [facility] [place] Heart Rate 2020-09-23 23:44:00 [facility] [place] Respitory Rate 2020-09-23 23:44:00 [facility] Height 2020-09-23 21:19:00 165.1 cm [facility] [place] [facility] BMI Calculated 2020-09-23 21:19:00 [facility] [place] Weight 2020-09-23 21:19:00 [facility] Temperature Oral (F) 2020-09-23 21:19:00 98.3 F [facility] [place] [facility] Systolic (mm Hg) 2018-12-18 08:30:00 [facility] Diastolic (mm Hg) 2018-12-18 08:30:00 [facility] Respitory Rate 2018-12-18 08:30:00 [facility] [place] Systolic (mm Hg) 2018-12-18 08:00:00 [facility] [place] Diastolic (mm Hg) 2018-12-18 08:00:00 [facility] [place] Respitory Rate 2018-12-18 08:00:00 [facility] Respitory Rate 2018-12-18 07:30:00 [facility] [place] Systolic (mm Hg) 2018-12-18 07:30:00 [facility] [place] Diastolic (mm Hg) 2018-12-18 07:30:00 [facility] Weight 2018-12-18 06:21:00 [facility] Height 2018-12-18 06:21:00 162.56 cm [facility] BMI Calculated 2018-12-18 06:21:00 [facility] [place] Temperature Oral (F) 2018-12-18 06:21:00 98.9 F [facility] Heart Rate 2018-12-18 06:21:00 [facility] [place] Respitory Rate 2018-10-12 10:34:00 [facility] [place] Systolic (mm Hg) 2018-10-12 10:34:00 [facility] Diastolic (mm Hg) 2018-10-12 10:34:00 [facility] Systolic (mm Hg) 2018-10-12 10:03:00 [facility] [place] Diastolic (mm Hg) 2018-10-12 10:03:00 [facility] [place] Respitory Rate 2018-10-12 10:03:00 [facility] [place] Respitory Rate 2018-10-12 09:30:00 [facility] Systolic (mm Hg) 2018-10-12 09:30:00 [facility] Diastolic (mm Hg) 2018-10-12 09:30:00 [facility] [place] Height 2018-10-12 06:47:00 165.1 cm [facility] BMI Calculated 2018-10-12 06:47:00 [facility] Weight 2018-10-12 06:47:00 [facility] [place] Temperature Oral (F) 2018-10-12 06:47:00 98.9 F [facility] [place] Heart Rate 2018-10-12 06:47:00 [facility] Height 2018-09-08 21:28:00 162.56 cm [facility] [place] [facility] BMI Calculated 2018-09-08 21:28:00 [facility] [place] Weight 2018-09-08 21:28:00 [facility] [place] Heart Rate 2018-09-08 21:28:00 [facility] [place] Systolic (mm Hg) 2018-09-08 21:28:00 [facility] Diastolic (mm Hg) 2018-09-08 21:28:00 [facility] [place] Systolic (mm Hg) 2018-08-04 02:32:00 [facility] [place] Diastolic (mm Hg) 2018-08-04 02:32:00 [facility] [place] Respitory Rate 2018-08-04 02:32:00 [facility] [place] Temperature Oral (F) 2018-08-04 02:32:00 99.1 F [facility] [place] Respitory Rate 2018-08-04 00:49:00 [facility] [place] Systolic (mm Hg) 2018-08-04 00:49:00 [facility] [place] Diastolic (mm Hg) 2018-08-04 00:49:00 [facility] Heart Rate 2018-08-03 23:59:00 [facility] [place] Respitory Rate 2018-08-03 23:59:00 [facility] [place] Systolic (mm Hg) 2018-08-03 23:59:00 [facility] [place] Diastolic (mm Hg) 2018-08-03 23:59:00 [facility] [place] Temperature Oral (F) 2018-08-03 22:22:00 100 F [facility] [place] Heart Rate 2018-08-03 22:22:00 [facility] Weight 2018-08-03 18:00:00 [facility] [place] BMI Calculated 2018-08-03 18:00:00 [facility] [place] Temperature Oral (F) 2018-08-03 18:00:00 100.2 F [facility] Height 2018-08-03 18:00:00 165.1 cm [facility] [place] [facility] Heart Rate 2018-08-03 18:00:00 [facility] [place] Weight 2018-07-19 20:03:00 [facility] [place] BMI Calculated 2018-07-19 20:03:00 [facility] [place] Height 2018-07-19 20:03:00 162.56 cm [facility] [place] [facility] Heart Rate 2018-07-19 20:03:00 [facility] Systolic (mm Hg) 2018-07-19 20:03:00 [facility] Diastolic (mm Hg) 2018-07-19 20:03:00 [facility] [place] Respitory Rate 2018-07-16 22:48:00 [facility] BMI Calculated 2018-07-16 22:48:00 [facility] [place] Temperature Oral (F) 2018-07-16 22:48:00 98.2 F [facility] [place] Height 2018-07-16 22:48:00 162.56 cm [facility] [place] [facility] Weight 2018-07-16 22:48:00 [facility] Systolic (mm Hg) 2018-07-16 22:48:00 [facility] [place] Diastolic (mm Hg) 2018-07-16 22:48:00 [facility] [place] Heart Rate 2018-07-16 22:48:00 [facility] [place] Height 2018-07-09 17:39:00 162.56 cm [facility] [place] [facility] BMI Calculated 2018-07-09 17:39:00 [facility] [place] Weight 2018-07-09 17:39:00 [facility] [place] Systolic (mm Hg) 2018-07-09 17:39:00 [facility] [place] Diastolic (mm Hg) 2018-07-09 17:39:00 [facility] [place] Heart Rate 2018-07-09 17:39:00 [facility] Temperature Oral (F) 2018-06-03 17:45:00 98.1 F [facility] Systolic (mm Hg) 2018-06-03 17:45:00 [facility] Diastolic (mm Hg) 2018-06-03 17:45:00 [facility] [place] Respitory Rate 2018-06-03 17:45:00 [facility] Systolic (mm Hg) 2018-06-03 16:30:00 [facility] Diastolic (mm Hg) 2018-06-03 16:30:00 [facility] Heart Rate 2018-06-03 16:30:00 [facility] Respitory Rate 2018-06-03 16:30:00 [facility] [place] Respitory Rate 2018-06-03 15:30:00 [facility] Systolic (mm Hg) 2018-06-03 15:30:00 [facility] [place] Diastolic (mm Hg) 2018-06-03 15:30:00 [facility] [place] Heart Rate 2018-06-03 15:30:00 [facility] Heart Rate 2018-06-03 14:36:00 [facility] [place] Weight 2018-06-03 13:49:00 [facility] Height 2018-06-03 13:49:00 162.56 cm [facility] Temperature Oral (F) 2018-06-03 13:49:00 97.9 F [facility] BMI Calculated 2018-06-03 13:49:00 [facility] Height 2018-05-20 19:03:00 162.56 cm [facility] BMI Calculated 2018-05-20 19:03:00 [facility] [place] Weight 2018-05-20 19:03:00 [facility] Systolic (mm Hg) 2018-05-20 19:03:00 [facility] Diastolic (mm Hg) 2018-05-20 19:03:00 [facility] [place] Heart Rate 2018-05-20 19:03:00 [facility] [place] Temperature Oral (F) 2018-04-02 15:41:00 98 F [facility] Systolic (mm Hg) 2018-04-02 15:41:00 [facility] [place] Diastolic (mm Hg) 2018-04-02 15:41:00 [facility] [place] Respitory Rate 2018-04-02 15:41:00 [facility] Respitory Rate 2018-04-02 14:33:00 [facility] [place] Systolic (mm Hg) 2018-04-02 14:33:00 [facility] Diastolic (mm Hg) 2018-04-02 14:33:00 [facility] [place] Respitory Rate 2018-04-02 13:00:00 [facility] [place] Systolic (mm Hg) 2018-04-02 13:00:00 [facility] [place] Diastolic (mm Hg) 2018-04-02 13:00:00 [facility] Temperature Oral (F) 2018-04-02 12:30:00 97.9 F [facility] Heart Rate 2018-04-02 10:16:00 [facility] [place] Weight 2018-04-02 09:22:00 [facility] [place] BMI Calculated 2018-04-02 09:22:00 [facility] Heart Rate 2018-04-02 09:22:00 [facility] Height 2018-04-02 09:22:00 170.18 cm [facility] Respitory Rate 2018-03-02 09:15:00 [facility] Systolic (mm Hg) 2018-03-02 09:15:00 [facility] Diastolic (mm Hg) 2018-03-02 09:15:00 [facility] Respitory Rate 2018-03-02 09:00:00 [facility] Systolic (mm Hg) 2018-03-02 09:00:00 [facility] [place] Diastolic (mm Hg) 2018-03-02 09:00:00 [facility] Height 2018-03-02 08:34:00 165.1 cm [facility] [place] [facility] BMI Calculated 2018-03-02 08:34:00 [facility] Weight 2018-03-02 08:34:00 [facility] Heart Rate 2018-03-02 08:34:00 [facility] Respitory Rate 2018-03-02 08:34:00 [facility] [place] Temperature Oral (F) 2018-03-02 08:34:00 98.2 F [facility] Systolic (mm Hg) 2018-03-02 08:34:00 [facility] [place] Diastolic (mm Hg) 2018-03-02 08:34:00 [facility] [place] Systolic (mm Hg) 2018-02-03 22:31:00 [facility] [place] Diastolic (mm Hg) 2018-02-03 22:31:00 [facility] Respitory Rate 2018-02-03 22:31:00 [facility] [place] Temperature Oral (F) 2018-02-03 22:31:00 98.2 F [facility] Heart Rate 2018-02-03 22:31:00 [facility] Respitory Rate 2018-02-03 20:32:00 [facility] Systolic (mm Hg) 2018-02-03 20:32:00 [facility] [place] Diastolic (mm Hg) 2018-02-03 20:32:00 [facility] Temperature Oral (F) 2018-02-03 20:32:00 97.8 F [facility] [place] [facility] BMI Calculated 2018-02-03 20:19:00 [facility] Height 2018-02-03 20:19:00 162.56 cm [facility] [place] Weight 2018-02-03 20:19:00 [facility] Systolic (mm Hg) 2017-12-21 22:09:00 [facility] [place] Diastolic (mm Hg) 2017-12-21 22:09:00 [facility] Respitory Rate 2017-12-21 22:09:00 [facility] Respitory Rate 2017-12-21 21:35:00 [facility] Systolic (mm Hg) 2017-12-21 21:24:00 [facility] [place] Diastolic (mm Hg) 2017-12-21 21:24:00 [facility] [place] Respitory Rate 2017-12-21 21:24:00 [facility] Heart Rate 2017-12-21 20:45:00 [facility] Heart Rate 2017-12-21 19:33:00 [facility] [place] [facility] Weight 2017-12-21 18:02:00 [facility] Height 2017-12-21 18:02:00 165.1 cm [facility] [place] [facility] BMI Calculated 2017-12-21 18:02:00 [facility] Systolic (mm Hg) 2017-12-21 18:02:00 [facility] [place] Diastolic (mm Hg) 2017-12-21 18:02:00 [facility] Heart Rate 2017-12-21 18:02:00 [facility] [place] [facility] Temperature Oral (F) 2017-12-21 18:02:00 98.7 F [facility] [place] [facility] Systolic (mm Hg) 2017-11-12 06:11:00 [facility] [place] Diastolic (mm Hg) 2017-11-12 06:11:00 [facility] [place] Heart Rate 2017-11-12 06:11:00 [facility] [place] Respitory Rate 2017-11-12 06:11:00 [facility] [place] Heart Rate 2017-11-12 05:06:00 [facility] Systolic (mm Hg) 2017-11-12 05:06:00 [facility] Diastolic (mm Hg) 2017-11-12 05:06:00 [facility] Respitory Rate 2017-11-12 05:06:00 [facility] [place] Heart Rate 2017-11-12 03:00:00 [facility] Systolic (mm Hg) 2017-11-12 03:00:00 [facility] Diastolic (mm Hg) 2017-11-12 03:00:00 [facility] Respitory Rate 2017-11-12 03:00:00 [facility] Temperature Oral (F) 2017-11-12 00:05:00 98.1 F [facility] [place] [facility] BMI Calculated 2017-11-12 00:05:00 [facility] [place] Height 2017-11-12 00:05:00 165.1 cm [facility] Weight 2017-11-12 00:05:00 [facility] Respitory Rate 2017-10-29 19:25:00 [facility] [place] Systolic (mm Hg) 2017-10-29 19:25:00 [facility] [place] Diastolic (mm Hg) 2017-10-29 19:25:00 [facility] [place] Temperature Oral (F) 2017-10-29 19:25:00 98.0 F [facility] [place] [facility] Respitory Rate 2017-10-29 18:45:00 [facility] Systolic (mm Hg) 2017-10-29 18:45:00 [facility] Diastolic (mm Hg) 2017-10-29 18:45:00 [facility] Heart Rate 2017-10-29 17:55:00 [facility] Systolic (mm Hg) 2017-10-29 17:55:00 [facility] [place] Diastolic (mm Hg) 2017-10-29 17:55:00 [facility] [place] Respitory Rate 2017-10-29 17:55:00 [facility] [place] Temperature Oral (F) 2017-10-29 17:55:00 98 F [facility] BMI Calculated 2017-10-29 17:55:00 [facility] [place] Weight 2017-10-29 17:55:00 [facility] Height 2017-10-29 17:55:00 167.64 cm [facility] Heart Rate 2017-09-21 01:56:00 [facility] Respitory Rate 2017-09-21 01:56:00 [facility] Systolic (mm Hg) 2017-09-21 01:56:00 [facility] [place] Diastolic (mm Hg) 2017-09-21 01:56:00 [facility] [place] Temperature Oral (F) 2017-09-21 00:09:00 98.8 F [facility] [place] [facility] Heart Rate 2017-09-21 00:09:00 [facility] [place] [facility] Respitory Rate 2017-09-21 00:09:00 [facility] BMI Calculated 2017-09-21 00:09:00 [facility] Height 2017-09-21 00:09:00 165.1 cm [facility] [place] [facility] Weight 2017-09-21 00:09:00 [facility] Systolic (mm Hg) 2017-09-21 00:09:00 [facility] [place] Diastolic (mm Hg) 2017-09-21 00:09:00 [facility] [place] Respitory Rate 2016-06-05 19:10:00 [facility] Systolic (mm Hg) 2016-06-05 19:10:00 [facility] Diastolic (mm Hg) 2016-06-05 19:10:00 [facility] Heart Rate 2016-06-05 19:10:00 [facility] [place] [facility] Weight 2016-06-05 15:58:00 [facility] BMI Calculated 2016-06-05 15:58:00 [facility] [place] Height 2016-06-05 15:58:00 165.1 cm [facility] Respitory Rate 2016-06-05 15:58:00 [facility] Systolic (mm Hg) 2016-06-05 15:58:00 [facility] [place] Diastolic (mm Hg) 2016-06-05 15:58:00 [facility] [place] Heart Rate 2016-06-05 15:58:00 [facility] Temperature Oral (F) 2016-06-05 15:58:00 96.9 F [facility] [place] [facility] Heart Rate 2015-12-03 16:30:00 [facility] Respitory Rate 2015-12-03 16:30:00 [facility] Systolic (mm Hg) 2015-12-03 16:30:00 [facility] Diastolic (mm Hg) 2015-12-03 16:30:00 [facility] Heart Rate 2015-12-03 15:40:00 [facility] Systolic (mm Hg) 2015-12-03 15:40:00 [facility] Diastolic (mm Hg) 2015-12-03 15:40:00 [facility] Respitory Rate 2015-12-03 15:40:00 [facility] [place] Systolic (mm Hg) 2015-12-03 15:30:00 [facility] [place] Diastolic (mm Hg) 2015-12-03 15:30:00 [facility] [place] Respitory Rate 2015-12-03 15:30:00 [facility] [place] Heart Rate 2015-12-03 11:51:00 [facility] BMI Calculated 2015-11-29 15:26:00 [facility] Weight 2015-11-29 15:26:00 [facility] [place] [facility] Height 2015-11-29 15:26:00 165.1 cm [facility] Heart Rate 2015-11-15 17:25:00 [facility] Respitory Rate 2015-11-15 17:25:00 [facility] [place] Systolic (mm Hg) 2015-11-15 17:02:00 [facility] Diastolic (mm Hg) 2015-11-15 17:02:00 [facility] Heart Rate 2015-11-15 17:02:00 [facility] Respitory Rate 2015-11-15 17:02:00 [facility] Systolic (mm Hg) 2015-11-15 16:20:00 [facility] Diastolic (mm Hg) 2015-11-15 16:20:00 [facility] [place] Respitory Rate 2015-11-15 16:20:00 [facility] Heart Rate 2015-11-15 16:20:00 [facility] Systolic (mm Hg) 2015-11-15 15:50:00 [facility] [place] Diastolic (mm Hg) 2015-11-15 15:50:00 [facility] [place] Weight 2015-11-15 14:04:00 [facility] BMI Calculated 2015-11-15 14:04:00 [facility] [place] Height 2015-11-15 14:04:00 165.1 cm [facility] [place] [facility] Temperature Oral (F) 2015-11-15 14:04:00 97.7 F [facility] Respitory Rate 2015-05-07 17:51:00 [facility] [place] Heart Rate 2015-05-07 17:51:00 [facility] Temperature Oral (F) 2015-05-07 17:51:00 97.9 F [facility] Systolic (mm Hg) 2015-05-07 17:51:00 [facility] [place] Diastolic (mm Hg) 2015-05-07 17:51:00 [facility] Temperature Oral (F) 2015-05-07 13:50:00 98.3 F [facility] Respitory Rate 2015-05-07 13:50:00 [facility] Systolic (mm Hg) 2015-05-07 13:50:00 [facility] [place] Diastolic (mm Hg) 2015-05-07 13:50:00 [facility] [place] Heart Rate 2015-05-07 13:50:00 [facility] Respitory Rate 2015-05-07 10:00:00 [facility] Heart Rate 2015-05-07 10:00:00 [facility] Temperature Oral (F) 2015-05-07 10:00:00 98.2 F [facility] [place] [facility] Systolic (mm Hg) 2015-05-07 10:00:00 [facility] Diastolic (mm Hg) 2015-05-07 10:00:00 [facility] [place] Weight 2015-05-05 05:18:00 [facility] [place] BMI Calculated 2015-05-05 05:18:00 [facility] [place] Height 2015-05-05 05:18:00 165.1 cm [facility] BMI Calculated 2015-05-04 20:29:00 [facility] [place] Height 2015-05-04 20:29:00 165.1 cm [facility] [place] [facility] Weight 2015-05-04 20:29:00 [facility] Systolic (mm Hg) 2015-03-28 21:54:00 [facility] Diastolic (mm Hg) 2015-03-28 21:54:00 [facility] [place] Respitory Rate 2015-03-28 21:54:00 [facility] [place] Heart Rate 2015-03-28 21:54:00 [facility] BMI Calculated 2015-03-28 18:29:00 [facility] Weight 2015-03-28 18:29:00 [facility] Temperature Oral (F) 2015-03-28 18:29:00 98.4 F [facility] [place] [facility] Height 2015-03-28 18:29:00 165.1 cm [facility] Respitory Rate 2015-03-28 18:29:00 [facility] Heart Rate 2015-03-28 18:29:00 [facility] [place] Systolic (mm Hg) 2015-03-28 18:29:00 [facility] Diastolic (mm Hg) 2015-03-28 18:29:00 [facility] Systolic (mm Hg) 2014-12-21 16:37:00 [facility] Diastolic (mm Hg) 2014-12-21 16:37:00 [facility] Temperature Oral (F) 2014-12-21 16:37:00 97.1 F [facility] Heart Rate 2014-12-21 16:37:00 [facility] Respitory Rate 2014-12-21 16:37:00 [facility] Heart Rate 2014-12-21 13:34:00 [facility] [place] Temperature Oral (F) 2014-12-21 13:34:00 96 F [facility] Systolic (mm Hg) 2014-12-21 13:34:00 [facility] [place] Diastolic (mm Hg) 2014-12-21 13:34:00 [facility] [place] Respitory Rate 2014-12-21 13:34:00 [facility] Respitory Rate 2014-12-21 09:00:00 [facility] Temperature Oral (F) 2014-12-21 09:00:00 97.6 F [facility] Heart Rate 2014-12-21 09:00:00 [facility] [place] Systolic (mm Hg) 2014-12-21 09:00:00 [facility] Diastolic (mm Hg) 2014-12-21 09:00:00 [facility] [place] Weight 2014-12-20 02:58:00 [facility] [place] BMI Calculated 2014-12-20 02:58:00 [facility] [place] Height 2014-12-20 02:58:00 165.1 cm [facility] [place] [facility] BMI Calculated 2014-12-19 20:04:00 [facility] Weight 2014-12-19 20:04:00 [facility] Height 2014-12-19 20:04:00 165.1 cm [facility] Heart Rate 2014-10-11 02:34:00 [facility] Respitory Rate 2014-10-11 02:34:00 [facility] [place] Systolic (mm Hg) 2014-10-11 02:34:00 [facility] [place] Diastolic (mm Hg) 2014-10-11 02:34:00 [facility] Heart Rate 2014-10-10 23:16:00 [facility] Respitory Rate 2014-10-10 23:16:00 [facility] [place] Systolic (mm Hg) 2014-10-10 23:16:00 [facility] [place] Diastolic (mm Hg) 2014-10-10 23:16:00 [facility] Respitory Rate 2014-10-10 21:43:00 [facility] Heart Rate 2014-10-10 21:43:00 [facility] Systolic (mm Hg) 2014-10-10 21:43:00 [facility] Diastolic (mm Hg) 2014-10-10 21:43:00 [facility] [place] Weight 2014-10-10 19:45:00 [facility] BMI Calculated 2014-10-10 19:45:00 [facility] [place] [facility] Height 2014-10-10 19:45:00 167.64 cm [facility] Temperature Oral (F) 2014-10-10 19:45:00 98.4 F [facility] Heart Rate 2014-09-07 20:56:00 [facility] Systolic (mm Hg) 2014-09-07 20:56:00 [facility] [place] Diastolic (mm Hg) 2014-09-07 20:56:00 [facility] [place] Temperature Oral (F) 2014-09-07 16:51:00 97.9 F [facility] Systolic (mm Hg) 2014-09-07 16:51:00 [facility] [place] Diastolic (mm Hg) 2014-09-07 16:51:00 [facility] Respitory Rate 2014-09-07 16:51:00 [facility] Heart Rate 2014-09-07 16:51:00 [facility] Heart Rate 2014-09-07 12:01:00 [facility] Respitory Rate 2014-09-07 12:01:00 [facility] [place] Systolic (mm Hg) 2014-09-07 12:01:00 [facility] [place] Diastolic (mm Hg) 2014-09-07 12:01:00 [facility] Temperature Oral (F) 2014-09-07 12:01:00 97.5 F [facility] Respitory Rate 2014-09-07 05:00:00 [facility] [place] Temperature Oral (F) 2014-09-07 05:00:00 97.9 F [facility] Height 2014-09-05 00:30:00 167.64 cm [facility] Weight 2014-09-05 00:30:00 [facility] BMI Calculated 2014-09-05 00:30:00 [facility] BMI Calculated 2014-09-04 15:44:00 [facility] Weight 2014-09-04 15:44:00 [facility] Height 2014-09-04 15:44:00 167.64 cm [facility] Temperature Oral (F) 2014-01-25 16:29:00 98.1 F [facility] Systolic (mm Hg) 2014-01-25 16:29:00 [facility] [place] Respitory Rate 2014-01-25 16:29:00 [facility] Diastolic (mm Hg) 2014-01-25 16:29:00 [facility] [place] Heart Rate 2014-01-25 16:29:00 [facility] Respitory Rate 2014-01-25 12:00:00 [facility] [place] Systolic (mm Hg) 2014-01-25 12:00:00 [facility] [place] Diastolic (mm Hg) 2014-01-25 12:00:00 [facility] [place] Heart Rate 2014-01-25 12:00:00 [facility] Temperature Oral (F) 2014-01-25 12:00:00 97.8 F [facility] Rate 2014-01-25 00:00:00 [facility] Systolic (mm Hg) 2014-01-25 00:00:00 [facility] Respitory Rate 2014-01-25 00:00:00 [facility] Diastolic (mm Hg) 2014-01-25 00:00:00 [facility] [place] Temperature Oral (F) 2014-01-25 00:00:00 98 F [facility] Weight 2014-01-24 20:14:00 [facility] Height 2014-01-24 13:57:00 165.1 cm [facility] Weight 2014-01-24 13:57:00 [facility] BMI Calculated 2014-01-24 13:57:00 [facility] [place] Height 2014-01-24 05:35:00 165.1 cm [facility] BMI Calculated 2014-01-24 05:35:00 Sherita Ovalles Weight 2014-01-24 05:35:00 [facility] Procedure Date / Time Performing Clinician Source Performed REFERRAL- REQUEST/RESPONSE 2022-01-22 05:01:00 Doctor Unassigned , [facility] POCT-GLUCOSE METER 2021-06-07 23:42:00 Carey-Perdomo, [facility] POCT-GLUCOSE METER 2021-06-07 22:40:00 Carey-Perdomo, [facility] POCT-GLUCOSE METER 2021-06-07 21:33:00 Carey-Perdomo, [facility] POCT-GLUCOSE METER 2021-06-07 19:50:00 Carey-Perdomo, [facility] POCT-GLUCOSE METER 2021-06-07 19:28:00 Carey-Perdomo, [facility] POCT-GLUCOSE METER 2021-06-07 18:24:00 Carey-Perdomo, [facility] POCT-GLUCOSE METER 2021-06-07 16:39:00 [place]Perdomo, [facility] POCT-GLUCOSE METER 2021-06-07 15:30:00 [facility] TISSUE EXAM 2021-06-07 15:04:00 [facility] POCT-GLUCOSE METER 2021-06-07 14:02:00 [facility] PO[facility]-GLUCOSE METER 2021-06-07 11:09:00 [facility] INSERTION, 2021-06-07 10:59[place] [facility] [place] [place]STRIC, [facility] ROBOT-ASSISTED EGD 2021-06-07 10:59:00 Babak [facility] (ESOPHAGOGASTRODUODENOSCOP [facility]) PROCEDURE W/ DAVINCI XI 2021-06-07 10:59:00 Babak [facility] POCT , URINE 2021-06-07 09:06:00 Paris Schrader [facility] POCT-GLUCOSE METER 2021-06-07 09:01:00 [facility] TYPE AND SCREEN, AUTOMATED 2021-06-07 08:56:00 Paris Schrader [facility] SARS-COV2/RT-PCR ([facility] & 2021-06-06 15:16:00 [facility] REF LABS) [facility] POCT-GLUCOSE METER 2021-05-30 11:29:00 Jozef Mckinnon Deandre [facility] REPORT OF PROCEDURE - 2021-05-30 08:54:16 Pepper Lewis [facility] ENDOSCOPY [facility] POCT-GLUCOSE METER 2021-05-30 08:49:00 Jozef Mckinnon [facility] EGD 2021-05-30 07:50:00 Pepper Lewis [facility] (ESOPHAGOGASTRODUODENOSCOP Cente r Y) POCT-GLUCOSE METER 2021-05-30 07:39:00 Jozef Mckinnon [facility] CBC W/PLT COUNT & AUTO 2021-05-30 07:00:00 Sameer [facility] DIFFERENTIAL [place] CBC W/PLT COUNT & AUTO 2021-05-30 07:00:00 Sameer [facility] DIFFERENTIAL [place] BASIC METABOLIC PANEL 2021-05-30 07:00:00 Sameer [facility] POCT-GLUCOSE METER 2021-05-29 20:50:00 Jozef Mckinnon [facility] POCT-GLUCOSE METER 2021-05-29 17:54:00 [facility] POCT-GLUCOSE METER 2021-05-29 15:07:00 Jozef Mckinnon [facility] POCT-GLUCOSE METER 2021-05-29 12:39:00 Jozef Mckinnon [facility] ECG 12-LEAD 2021-05-29 12:30:55 Unknown, Hl7 Doctor [facility] ECG 12-LEAD 2021-05-29 12:30:50 Jozef Mckinnon [facility] ECG 12-LEAD 2021-05-29 12:30:50 Unknown, Hl7 Doctor [facility] REPORT OF PROCEDURE - 2021-05-29 10:15:52 Pepper Lewis [facility] ENDOSCOPY [facility] POCT-GLUCOSE METER 2021-05-29 10:08:00 Pratibha [facility] Carrera [facility] EGD 2021-05-29 09:28:00 Pepper Lewis [facility] (ESOPHAGOGASTRODUODENOSCOP Cente r Y) POCT-GLUCOSE METER 2021-05-29 08:15:00 Jozef Mckinnonhir [facility] CBC W/PLT COUNT & AUTO 2021-05-29 07:17:00 Sameer [facility] DIFFERENTIAL [place] CBC W/PLT COUNT & AUTO 2021-05-29 07:17:00 Sameer [facility] DIFFERENTIAL [place] BASIC METABOLIC PANEL 2021-05-29 05:24:00 Sameer [facility] POCT-GLUCOSE METER 2021-05-28 21:30:00 Michelle Spain [facility] POCT-GLUCOSE METER 2021-05-28 20:40:00 Michelle Spain [facility] POCT-GLUCOSE METER 2021-05-28 17:58:00 Michelle Spain [facility] POCT-GLUCOSE METER 2021-05-28 11:47:00 Michelle Spain [facility] POCT-GLUCOSE METER 2021-05-28 11:14:00 Michelle Spain [facility] POCT-GLUCOSE METER 2021-05-28 10:49:00 Michelle Spain [facility] XR ABDOMEN 2 VIEWS FLAT 2021-05-28 09:12:00 Abraham Long[facility] AND UPRIGHT [facility] POCT-GLUCOSE METER 2021-05-28 06:10:00 [facility] POCT-GLUCOSE METER 2021-05-28 05:38:00 [facility] XR ABDOMEN/KUB 1 VIEW 2021-05-28 04:09:00 Kerri [facility] PORTABLE Center CBC W/PLT COUNT & AUTO 2021-05-28 02:02:00 Apfel, [facility] DIFFERENTIAL [place] SARS-COV2/RT-PCR ([facility] & 2021-05-28 02:02:00 Apfel, Count includes the [facility] REF LABS) Center BASIC METABOLIC PANEL 2021-05-28 02:02:00 Apfe Yosi Govind [facility] HCG, QUANTITATIVE, 2021-05-28 02:02:00 Apfel, Yosi [facility] Center CBC W/PLT COUNT & AUTO 2021-05-28 02:02:00 Apfel [facility] DIFFERENTIAL Center MR Ankle wo contrast [id number] 2018-09-30 00:00:00 [facility] Appendectomy [facility] section [facility] n Cholecystectomy [facility] Endoscopy [facility] Insertion of insulin [facility] pump<sup>1</sup> Removal of insulin pump [facility] Vaginal delivery of fetus [facility] Plan of Care Planned Activity Planned Date Details Comments Source Future Scheduled 2030-08-31 DTAP/TDAP/TD VACCINES [facility] Test 00:00:00 (3 - Td or Tdap) [code Medic al Center = DTAP/TDAP/TD VACCINES (3 - Td or Tdap)] Future Scheduled 2022-06-07 Tobacco Cessation [facility] Test 00:00:00 Counseling and Medical Cente r Screening (12+) [code = Tobacco Cessation Counseling and Screening (12+)] Future Scheduled 2022-02-15 IMM Influenza Seasonal [facility] Test 00:00:00 (>/= 19 yrs) [code = IMM Influenza Seasonal (>/= 19 yrs)] Future Scheduled 2022-01-16 INFLUENZA VACCINE (#1[facility] Test 00:00:00 [code = INFLUENZA Medical Ce nter VACCINE (#1)] Future Scheduled 2021-09-09 Pneumococcal Combined [facility] Test 15:20:24 (1 of 2 - PPSV23) [code of M edicine = Pneumococcal Combined (1 of 2 - PPSV23)] Future Scheduled 2021-09-09 Diabetic foot [facility] Test 15:20:24 examination of Medicine (regime/therapy) [code = 803892728] Future Scheduled 2021-09-09 ANNUAL DIABETIC [facility] Test 15:20:24 RETINOPATHY SCREENING of Med icine [code = ANNUAL DIABETIC RETINOPATHY SCREENING] Future Scheduled 2021-09-09 Hepatitis C screening [facility] Test 15:20:24 (procedure) [code = of Medic ine 830210863] Future Scheduled 2021-09-09 Human immunodeficiency [facility] Test 15:20:24 virus screening of Medicine (procedure) [code = 887420258] Future Scheduled 2021-09-09 Screening for malignant [facility] Test 15:20:24 neoplasm of cervix of Medici ne (procedure) [code = 610568340] Future Scheduled 2021-09-09 COVID-19 Vaccine (2 - [facility] Test 15:20:24 Moderna 3-dose series) of Me dicine [code = COVID-19 Vaccine (2 - Moderna 3-dose series)] Future Scheduled 2021-09-09 FLU VACCINE > 6 MONTHS B [facility] Test 15:20:24 [code = FLU VACCINE > 6 of M edicine MONTHS] Future Scheduled 2021-09-09 TETANUS SHOT (ADULT) [facility] Test 15:20:24 [code = TETANUS SHOT of Medi cine (ADULT)] Future Scheduled 2021-07-10 Pneumococcal Combined [facility] Test 14:52:39 (1 of 2 - PPSV23) [code of M edicine = Pneumococcal Combined (1 of 2 - PPSV23)] Future Scheduled 2021-07-10 Diabetic foot [facility] Test 14:52:39 examination of Medicine (regime/therapy) [code = 655565778] Future Scheduled 2021-07-10 ANNUAL DIABETIC [facility] Test 14:52:39 RETINOPATHY SCREENING of Med icine [code = ANNUAL DIABETIC RETINOPATHY SCREENING] Future Scheduled 2021-07-10 Hepatitis C screening [employer] Test 14:52:39 (procedure) [code = of Medic ine 543962475] Future Scheduled 2021-07-10 Human immunodeficiency [facility] [employer] Test 14:52:39 virus screening of Medicine (procedure) [code = 850411722] Future Scheduled 2021-07-10 Screening for malignant [facility] Test 14:52:39 neoplasm of cervix of Medici ne (procedure) [code = 282156734] Future Scheduled 2021-07-10 FLU VACCINE > 6 MONTHS [facility] [employer] Test 14:52:39 [code = FLU VACCINE > 6 of M edicine MONTHS] Future Scheduled 2021-07-10 COVID-19 Vaccine (2 - [facility] [employer] [employer] Test 14:52:39 Moderna 3-dose series) of Me dicine [code = COVID-19 Vaccine (2 - Moderna 3-dose series)] Future Scheduled 2021-07-10 TETANUS SHOT (ADULT) [facility] Test 14:52:39 [code = TETANUS SHOT of [facility] (ADULT)] Future Scheduled 2021-05-[address] [address] [facility] Test 00:00:00 measurement (procedure) [facility] [code = 20869682] Future Scheduled 2021-02-18 Diabetic foot [facility] Test 10:16:35 examination of Medicine (regime/therapy) [code = 355662797] Future Scheduled 2021-02-18 ANNUAL DIABETIC [facility] Test 10:16:35 RETINOPATHY SCREENING of Med icine [code = ANNUAL DIABETIC RETINOPATHY SCREENING] Future Scheduled 2021-02-18 Hepatitis C screening [employer] Test 10:16:35 (procedure) [code = of Medic ine 580662404] Future Scheduled 2021-02-18 Human immunodeficiency [facility] [employer] Test 10:16:35 virus screening of Medicine (procedure) [code = 827185212] Future Scheduled 2021-02-18 Screening for malignant [facility] [employer] Test 10:16:35 neoplasm of cervix of Medici ne (procedure) [code = 419419210] Future Scheduled 2021-02-18 FLU VACCINE > 6 MONTHS [facility] [employer] Test 10:16:35 [code = FLU VACCINE > 6 of M edicine MONTHS] Future Scheduled 2021-02-18 COVID-19 Vaccine (2 - [facility] Test 10:16:35 Moderna 2-dose series) of Me dicine [code = COVID-19 Vaccine (2 - Moderna 2-dose series)] Future Scheduled 2021-02-18 TETANUS SHOT (ADULT) [facility] Test 10:16:35 [code = TETANUS SHOT of Medi cine (ADULT)] Future Scheduled 2021-02-18 Diabetic foot [facility] Test 10:16:35 examination of Medicine (regime/therapy) [code = 349176895] Future Scheduled 2021-02-18 ANNUAL DIABETIC [facility] Test 10:16:35 RETINOPATHY SCREENING of Med icine [code = ANNUAL DIABETIC RETINOPATHY SCREENING] Future Scheduled 2021-02-18 Hepatitis C screening [facility] Test 10:16:35 (procedure) [code = of Medic ine 136100434] Future Scheduled 2021-02-18 Human immunodeficiency [facility] Test 10:16:35 virus screening of Medicine (procedure) [code = 240324704] Future Scheduled 2021-02-18 Screening for malignant [facility] Test 10:16:35 neoplasm of cervix of Medici ne (procedure) [code = 837940710] Future Scheduled 2021-02-18 FLU VACCINE > 6 MONTHS [facility] Test 10:16:35 [code = FLU VACCINE > 6 of M edicine MONTHS] Future Scheduled 2021-02-18 COVID-19 Vaccine (2 - [facility] Test 10:16:35 Moderna 2-dose series) of Me dicine [code = COVID-19 Vaccine (2 - Moderna 2-dose series)] Future Scheduled 2021-02-18 TETANUS SHOT (ADULT) [facility] Test 10:16:35 [code = TETANUS SHOT of Medi cine (ADULT)] Future Scheduled 2021-02-18 XR ABDOMEN 1 VIEW (KUB) 1 Occurrences [facility] Test 09:27:19 [code = 38075] starting of Medicine 02/18/2021 until 02/18/2022 Future Scheduled 2021-02-18 XR ABDOMEN 1 VIEW (KUB) 1 Occurrences [facility] Test 09:27:19 [code = 66510] starting of Medicine 02/18/2021 until 02/18/2022 Future Scheduled 2020 Screening for malignant [facility] Test 00:00:00 neoplasm of cervix (procedure) [code = 422657385] Future Scheduled 2020 Screening for malignant [facility] Test 00:00:00 neoplasm of cervix (procedure) [code = 309108409] Future Scheduled 2013-11-[address] [facility] Test 00:00:00 0-64 YRS (2 - PCV) Medical C enter [code = PNEUMOCOCCAL VACCINE 0-64 YRS (2 - PCV)] Future Scheduled 2011-08-02 Screening for malignant [facility] Test 00:00:00 neoplasm of cervix Medical C enter (procedure) [code = 133769504] Future Scheduled 2010 Lipid panel (procedure) [facility] Test 00:00:00 [code = 58419233] Medical Ce nter Future Scheduled 2000 DIABETIC EYE EXAM [code [facility] Test 00:00:00 = DIABETIC EYE EXAM] Medical Center Future Scheduled [address] [facility] Test 00:[facility]00 examination Medical Center (regime/therapy) [code = 124875372] Future Scheduled 2000 Urine screening for [facility] Test 00:00:00 protein (procedure) Medical Center [code = 164448541] Future Scheduled 1991-02-01 COVID-19 Vaccine (#1) [facility] 00:[facility]:00 [code = COVID-19 Vaccine (#1)] Future Scheduled 1991-02-01 COVID-19 VACCINE (#1[facility] 00:00:00 [code = COVID-[address] VACCINE (#1)] Future Scheduled COVID-19 Vaccine [facility] Test Evaluation [code = of Medici ne COVID-19 Vaccine Evaluation] Future Scheduled TETANUS SHOT (ADULT) [facility] Test [code = TETANUS SHOT of Medi cine (ADULT)] Future Scheduled Diabetic foot [facility] Test examination of Medicine (regime/therapy) [code = 255770251] Future Scheduled ANNUAL DIABETIC [facility] Test RETINOPATHY SCREENING of Med icine [code = ANNUAL DIABETIC RETINOPATHY SCREENING] Future Scheduled HEPATITIS C SCREENING [facility] Test [code = HEPATITIS C of Medic ine SCREENING] Future Scheduled HIV SCREENING [code = [facility] [employer] [employer] [facility] HIV SCREENING] of Medicine Future Scheduled CERVICAL CANCER [facility] C [facility]lege Test SCREENING 3 YEAR FOLLOW of M edicine UP [code = CERVICAL CANCER SCREENING 3 YEAR FOLLOW UP] Future Scheduled FLU VACCINE > 6 MONTHS [employer] Test [code = FLU VACCINE > 6 of M edicine MONTHS] Future Scheduled NICOTINE AND COTININE, Ordered: [facility] [employer] [employer] Test LC/MS/MS, SERUM/PLASMA 04/17/2020 of Me dicine [code = NOCPT] Future Scheduled TETANUS SHOT (ADULT) [facility] [employer] Test [code = TETANUS SHOT of Medi cine (ADULT)] Future Scheduled HEPATITIS C SCREENING [employer] Test [code = HEPATITIS C of Medic ine SCREENING] Future Scheduled HIV SCREENING [code = [employer] [facility] HIV SCREENING] of Medicine Future Scheduled CERVICAL CANCER [facility] C [facility]lege Test SCREENING 3 YEAR FOLLOW of M edicine UP [code = CERVICAL CANCER SCREENING 3 YEAR FOLLOW UP] Future Scheduled FLU VACCINE > 6 MONTHS [employer] Test [code = FLU VACCINE > 6 of M edicine MONTHS] Encounters Start End Encounter Admission Attending Care Care Encounter Source Date/Time Date/Time Type Type Clinicians Facility Department ID 2022-04-01 Outpatient Palomares, ST[facility] [id number] Common 08:28:02 Ramiro [id number] [facility] 2022-03-06 [facility] [id number] Common 10:01:04 Ramiro [id number] [facility] 2022-03-04 [facility] [id number] Common 10:02:02 Ramiro [id number] [facility] 2022-01-21 Out[facility] [id number] Common 09:24:06 Ramiro [id number] [facility] 2021-08-20 Outpatient [facility] SLE Surgery [id number] [facility] 15:44:15 MICHEL BOURNE 2021-08-10 Outpatient [facility] [id number] [place]one 09:47:50 [facility] 2021-03-19 Emergency [facility] [id number] Univers 03:00:34 ity of [facility] 2021-03-17 Emergency [facility] [id number] Univers 13:32:08 ity of [facility] 2021-03-17 Emergency [facility] [id number] Univers 12:05:06 ity of [facility] 2021-02-23 Outpatient [facility] [id number] [facility] 06:24:22 ES, 2021-02-22 Outpatient [facility] [id number] [facility] 20:20:42 ES, 2021-02-22 Outpatient [facility] [id number] [facility] 18:47:36 ES, 2020-10-14 Inpatient HCACL HCACL [id number] [facility] 08:33:37 68 [facility] 2019-06-25 Inpatient HCABM RHONDA [id number] [facility] 23:52:00 55 [facility] 2016-10-05 Inpatient [facility] [id number] Ann rris 06:39:25 Health 2022-05-15 2022-05-15 Nurse ESTRELLA Montes 1.2.840.114 [id number] Univers 00:00:00 00:00:00 Triage Mata MONTES [id number] it y of [facility] [id number] Perico as [phone] [address] 2022-05-13 2022-05-13 [facility]phone [facility] 1.2.840.114 [id number] Univers 00:00:00 00:00:00 [facility] [id number] it y of [place] 4.2.7.2.686 Perico as HREBIE?BLEA [phone] Dc andrew KOLE [address] [place] [facility] 2022-04-24 2022-04-24 Telephone [facility] 1.2.840.114 [id number] Univers 00:00:00 00:00:00 Luis MULTISPEC [id number] ity of [facility] 4.2.7.2.686 [place] [facility] [phone] [facility] AND RYAN [address] [place] [address] DIABETES CLINIC 2022-01-22 2022-01-22 Orders Doctor DE LA ROSA 1.2.840.114 [id number] Univers 00:00:00 00:00:00 Only Unassigned, JYOTI 350.1.13.10 ity of [facility] [id number] Perico as [phone] [place] [address] [address] 2021-10-22 2021-10-22 Refill Caitlin [facility] 1.2.840.114 [id number] Univers 00:00:00 00:00:00 Luis MULTISPEC 350.1.13.10 ity of [place]7.2.686 [place] [phone] [address] DIABETES CLINIC 2021-09-03 2021-09-03 Office Carey-Staci [facility] 1.2.840.114 [id number] [facility] 13:00:00 13:46:32 Visit Michel bourne AMBULATOR 350.1.13.21 College G Y 0.2.7.2.686 of [id number] [facility] margaret 805 e 2021-08-07 2021-08-07 Orders Doctor ESTRELLA 1.2.840.114 [id number] Univers 00:00:00 00:00:00 Only Unassigned, JYOTI 350.1.13.10 ity of [place] 4.2.7.2.686 Perico as [id number] [address] 2021-07-04 2021-07-04 Office CAREY-STACI [facility] 1.2.840.114 [id number] [facility] 15:35:09 15:35:09 Visit MICHEL BOURNE AMBULATOR 350.1.13.21 College Y 0.2.7.2.686 of [id number] [facility] margaret 805 e 2021-06-28 2021-06-28 Outpatient R CAITLIN [facility] [id number] [facility] 08:45:00 08:45:00 LUIS ity of [facility] 2021-06-24 2021-06-24 Telephone Caitlin [facility] 1.2.840.114 [id number] [facility] 00:00:00 00:00:00 Luis MULTISPEC 350.1.13.10 ity of [place]7.2.686 [place] CENTER [id number] [facility] AND [address] DIABETES CLINIC 2021-06-23 2021-06-23 Orders Doctor ESTRELLA 1.2.840.114 [id number] Univers 00:00:00 00:00:00 Only Unassigned, JYOTI 350.1.13.10 ity of [place] [facility] 4.2.7.2.686 Perico [id number] [facility] [address] 2021-06-22 2021-06-22 [facility] 1.2.840.114 [id number] Univers 00:00:00 00:00:00 Luis MULTISPEC 350.1.13.10 ity of [place] 4.2.7.2.686 [facility] [id number] [facility] AND DAVIS [address] DIABETES CLINIC 2021-06-18 2021-06-18 Telephone [facility] 1.2.840.114 [id number] Univers 00:00:00 00:00:00 [facility] 350.1.13.10 it y of FAMILY 4.2.7.2.686 [facility] [id number] Med ical RASHID [address] [facility] 2021-06-12 2021-06-12 Outpatient [facility] [id number] Univers 14:15:00 14:15:00 SHWETA porter [facility] 2021-06-07 2021-06-08 [facility] [id number] [facility] 08:18:00 00:55:00 Encounter Michel bourne [facility] 2021-06-07 2021-06-08 Outpatient [facility] Surgery [id number] [facility] 08:18:00 00:55:00 MICHEL BOURNE 2021-06-07 2021-06-07 Outpatient [facility] [id number] [facility] 08:18:00 23:59:00 Jame Medicwilliam e 2021-06-07 2021-06-07 Anesthesia Guanakito Yadav [facility] [id number] [facility] St 11:14:00 16:06:00 Event [facility] 2021-06-07 2021-06-07 Outpatient R APOLLOKENNY, [facility] [id number] Univers 14:45:00 14:45:00 LUIS [facility] 2021-06-07 2021-06-07 Surgery [facility] [id number] 10:00:00 13:35:00 esMichel ema [facility] 2021-06-07 2021-06-07 Outpatient Rigo KAYVIVIANA, [facility] [id number] Univers 08:30:00 08:30:00 TYRELL [facility] 2021-06-06 2021-06-06 Outpatient LYRICMCCLUREMaddy [facility] [id number] SLE 15:15:16 23:59:00 STACY BOURNEIET 2021-06-06 2021-06-06 [facility] [id number] [facility] 15:00:00 23:59:00 Encounter Michel bourne [facility] 2021-06-06 2021-06-06 Outpatient KOLBY [facility] [id number] SLE 11:33:26 14:59:00 ES, MICHEL 2021-06-06 2021-06-06 [facility] [id number] [facility] 10:45:00 14:59:00 Encounter Michel bourne [facility] 2021-06-06 2021-06-06 Outpatient KOLBY [facility] [id number] [facility] 10:47:58 10:54:19 ESMICHEL lege of Medicin e 2021-05-27 2021-05-30 Community HospitalNancy tucker [facility] [id number] [facility] 22:08:00 14:46:00 Encounter Fortino Peñaloza Kinjal M. Medical Ali, Jozef Deandre [place]olog[place] JamieRu Robbins 2021-05-27 2021-05-30 Inpatient ER ALI, [facility] [id number] SLEH 22:08:00 14:46:00 2021-05-30 2021-05-30 [facility] [id number] 08:00:00 09:00:00 [facility] 2021-05-30 2021-05-30 Anesthesia Lidya Clay [facility] [id number] 08:00:00 08:36:00 Event Selin Rockwell [facility] 2021-05-29 2021-05-29 Surgery Debbie, [facility] [id number] 09:35:00 10:35:00 [facility] 2021-05-29 2021-05-29 Anesthesia Chilango Busby [facility] [id number] [facility] 09:38:00 10:09:00 Event Doroteo Roshni [facility] 2021-05-29 2021-05-29 Orders [facility] [id number] 00:00:00 00:00:00 Only [facility] 2021-05-28 2021-05-28 Outpatient DALLIN ELI [facility] [id number] Univers 08:20:00 08:20:00 ity of [facility] 2021-05-27 2021-05-27 Outpatient CENTINELA [facility] [id number] [facility] 22:08:00 23:59:00 Jame Medicwilliam michelle 2021-05-27 2021-05-27 Travel [facility] [id number] [facility] 00:[facility] 00:00:00 [facility] 2021-05-24 2021-05-24 Outpatient DALLIN ELI [facility] [id number] Univers 11:20:00 11:20:00 ity of [facility] 2021-05-15 2021-05-15 Hospital [facility] 1.2.840.114 [id number] Univers 13:45:49 23:59:00 Encounter Shweta ESPARZA 350.1.13.10 ity of [facility] 4.2.7.2.686 [facility] AT [phone] Dc andrew MORRIS [address] [place] [address] 2021-05-15 2021-05-15 Office [facility] 1.2.840.114 [id number] Univers 13:00:00 14:15:23 Visit Shweta SPECIALTY 350.1.13.10 ity of CARE 4.2.7.2.686 [facility] AT [phone] Dc dicjanett SINGHY 201 [facility] 2021-05-15 2021-05-15 [facility] 1.2.840.114 [id number] Univers 13:43:11 13:44:00 Encounter Shweta SPECIALTY 350.1.13.10 ity of CARE 4.2.7.2.686 [facility] AT [phone] Dc andrew MORRIS 807 [facility] 2021-05-15 2021-05-15 [facility] [id number] Univers 00:00:00 13:44:00 [facility] 2021-05-15 2021-05-15 [facility] [id number] Univers 13:00:00 13:00:00 [facility] 2021-05-08 2021-05-08 Outpatient R FELI YEIMI [facility] [id number] Univers 09:30:00 09:30:00 ity [facility] 2021-05-03 2021-05-03 Outpatient R NAHEED [facility] [id number] Univers 13:40:00 13:40:00 MARIELY [facility] 2021-04-24 2021-04-24 Outpatient R FELI YEIMI [facility] [id number] Univers 09:30:00 09:30:00 ity [facility] 2021-04-05 2021-04-05 Emergency X ALVARO [facility] ERT [id number] Univers 09:57:00 13:13:00 [facility] 2021-04-05 2021-04-05 [facility] 1.2.840.114 [id number] Univers 09:57:00 13:13:00 [facility] 350.1.13.10 it y of [place] 4.2.7.2.686 [facility] [id number] [address] ([facility]) 2021-04-04 2021-04-04 Outpatient R MAYELIN MALDONADO [facility] [id number] Univers 15:15:00 15:15:00 ity [facility] 2021-04-04 2021-04-04 Outpatient R [facility] [id number] Univers 15:15:00 15:15:00 ity [facility] 2021-03-25 2021-03-25 Emergency X FARRUKH [facility] ERT [id number] Univers 09:15:00 11:13:00 DORINDA ity [facility] 2021-03-25 2021-03-25 Emergency [facility] [id number] [id number] Univers 09:15:00 11:13:00 [facility] 350.1.13.10 it y of [place] 4.2.7.2.686 [facility] [id number] [address] ([facility]) 2021-03-25 2021-03-25 Emergency X FARRUKH [facility] ERT [id number] Univers 09:15:00 11:13:00 DORINDA ity [facility] 2021-03-19 2021-03-19 Outpatient R IBIDAPO-OBE [facility] [id number] Univers 11:00:00 11:31:09 , ity of [facility] 2021-03-19 2021-03-19 Outpatient R IBIDAPO-OBE [facility] [id number] Univers 11:00:00 11:31:09 , ity of [facility] 2021-03-19 2021-03-19 Office Red Xiong [facility] 1.2.84 0.114 [id number] Univers 10:50:44 11:31:09 Visit [facility] 350.1. 13.10 ity of FAMILY 4.2.7.2.686 [facility] [phone] Med [address] 2021-03-18 2021-03-18 Emergency X LOAN [facility] ERT [id number] Univers 09:26:00 11:47:00 KATHLEEN ity [facility] 2021-03-18 2021-03-18 Emergency X LOAN, [facility] ERT [id number] Univers 09:26:00 11:47:00 KATHLEEN ity [facility] 2021-03-18 2021-03-18 Emergency Loan, [facility] 1.2.912.642 [id number] Univers 09:26:00 11:47:00 [facility] 350.1.13.10 it y of Sowmya [place] 4.2.7.2.686 [facility] [id number] [address] ([facility]) 2021-03-12 2021-03-12 Outpatient R IBIDAPO-OBE [facility] [id number] Univers 15:30:00 15:30:00 , ity of OJACQUESUNBO [facility] 2021-03-01 2021-03-01 Hospital Radiology [facility] 1.2.840.114 [id number] Univers 08:55:47 23:59:00 Encounter SPECIALTY 350.1.13.10 ity of CARE 4.2.7.2.686 [facility] AT [phone] Dc andrew MORRIS [address] [place] [address] 2021-03-01 2021-03-01 Outpatient R RADIOLOGY [facility] [id number] Univers 09:00:00 09:00:00 ity of [facility] 2021-02-18 2021-02-18 Office WILIAM Nolan 1.2.840.114 [id number] [facility] 08:55:39 09:25:39 Visit Jeevan [facility].1.13.21 [facility] 0.2.7.2.686 [id number] [facility] 325 e 2021-02-15 2021-02-15 Emergency Rocchi, [facility] 1.2.842.915 [id number] Univers 10:02:00 11:20:00 [facility] 350.1.13.10 it y of Carlos 4.2.7.2.686 [facility] [phone] [address] ([facility]) 2021-01-21 2021-01-21 Nurse Therapy, Clc Covid Infusion [facility] 1.2.840.114 [id number] Univers 08:10:16 09:10:16 Visit Wilver Rabago [facility] 350.1.13.10 ity of [place] 4.2.7.2.686 [facility] [place] [phone] [facility] [address] Office Building 2021-01-21 2021-01-21 Outpatient R JACOBO, [facility] [id number] Univers 08:30:00 08:30:00 WILVER ity [facility] 2021-01-21 2021-01-21 Orders Doctor ESTRELLA 1.2.840.114 [id number] Univers 00:00:00 00:00:00 Only Unassigned, JYOTI 350.1.13.10 ity of [place] [facility] 4.2.7.2.686 Perico as [phone] [facility] 009 Branch 2021-01-20 2021-01-20 Telephone ESTRELLA Winslow 1.2.340.834 [id number] Univers 00:00:00 00:00:00 Shannan JYOTI 350.1.13.10 it y of [facility] 4.2.7.2.686 Perico as [phone] [facility] 019 Branch 2021-01-19 2021-01-19 Outpatient R UNKNOWN, [facility] [id number] Univers 19:45:00 19:45:00 ATTENDING ity [facility] 2021-01-19 2021-01-19 Urgent Care, [facility] Urgent [facility] 1.2.840.1 [id number] Univers 18:18:12 19:08:38 Care Unknown, Attending HEALTH 350.1.13.10 ity of [place] 4.2.7.2.[address] [place] [address] [phone] [facility] 2021-01-10 2021-01-10 Outpatient GCCOVIDV GCCOVIDV [id number] GCCOVID 00:00:00 00:00:00 V 2020-12-28 2020-12-28 Outpatient R CAITLIN, [facility] [id number] Univers 13:45:00 13:45:00 LUIS ity [facility] 2020-12-27 2020-12-27 Emergency nullFlavo [place] [id number] Memoria 18:56:22 20:14:00 [facility]-ED 35 l (EDL) Randal 2020-12-27 2020-12-27 Outpatient Monty Blankenship MHSE MHSE [id number] 13:56:22 15:14:00 Zuleika 35 2020-12-27 2020-12-27 Emergency E GINOMONTY COOPER [facility] [id number] 13:56:00 15:14:[address] [facility] 2020-11-07 2020-11-07 Outpatient R MAGNOLIA [facility] [id number] Univers 09:45:00 09:45:00 HORACE [facility] 2020-10-29 2020-10-29 Outpatient R YEIMI CANDIS [facility] [id number] Univers 14:45:00 14:45:00 [facility] 2020-10-04 2020-10-05 Emergency nullFlavo SE [place] [id number] Memoria 22:16:05 00:19:00 r [facility]-ED 34 l (EDLC) Randal 2020-10-04 2020-10-04 Outpatient Calin, JAYSE MHSE [id number] 17:16:05 19:19:00 Paris Lorena 34 2020-10-04 2020-10-04 Emergency E LAYTON, MHSE MHSE [id number] MH 17:16:00 19:19:[address] [facility] 2020-09-26 2020-09-26 [facility] 1.2.840.114 [id number] [facility] 12:32:04 13:37:05 Visit Luis ABBASI 350.1.13.10 [facility] 4.2.7.2.686 [facility] [phone] [address] [facility] 2020-09-26 2020-09-26 Outpatient R CAITLIN [facility] [id number] Univers 12:30:00 12:30:00 [facility] 2020-09-26 2020-09-26 Telephone [facility] 1.2.840.114 [id number] 00:00:00 00:00:00 Luis MULTISPEC 350.1.13.10 IALTY 4.2.7.2.686 CENTER [phone] [place] [address] [facility] 2020-09-26 2020-09-26 Orders Doctor ESTRELLA 1.2.840.114 [id number] Univers 00:00:00 00:00:00 Only Unassigned, JYOTI 350.1.13.10 ity of [place] [facility] 4.2.7.2.686 Perico as [phone] [facility] 009 Branch 2020-09-26 2020-09-26 Telephone [facility] 1.2.840.114 [id number] Univers 00:00:00 00:00:00 Luis MULTISPEC 350.1.13.10 ity of IALTY 4.2.7.2.686 [facility] [place] [phone] [facility] AND [address] [facility] 2020-09-26 2020-09-26 Telephone [facility] 1.2.840.114 [id number] Univers 00:00:00 00:00:00 Luis MULTISPEC 350.1.13.10 ity of IALTY 4.2.7.2.686 [facility] [phone] [facility] AND [address] [facility] 2020-09-23 2020-09-24 Emergency nullFlavo SE [place] [id number] [facility] 21:17:15 00:59:00 [facility]-ED 33 l ([facility]) Randal 2020-09-23 2020-09-23 Outpatient Janette MHSE MHSE [id number] 16:17:15 19:59:00 , Madelyn 33 2020-09-23 2020-09-23 Emergency E JANETTE MHSE MHSE [id number] MH 16:17:00 19:59:00 , MADELYN [facility] 2020-08-31 2020-08-31 Emergency [facility] 1.2.699.502 [id number] [facility] 19:16:00 21:41:00 [facility] 350.1.13.10 it y of [place].2.686 [place] [phone] [address] ([facility]) 2020-08-26 2020-08-26 Emergency Kiki [facility] 1.2.840.114 [id number] Univers 10:04:00 14:38:00 [facility] 350.1.13.10 it y of [place] 4.2.7.2.686 [facility] [id number] [address] ([facility]) 2020-08-06 2020-08-06 Outpatient SLEH SLEH [id number] [facility]H 00:00:00 00:00:00 2020-08-03 2020-08-03 Outpatient EL SLEH SLEH [id number] SLEH 00:00:00 00:00:00 2020-08-03 2020-08-03 Outpatient EL SLEH SLEH [id number] SLEH 00:00:00 00:00:00 2020-06-15 2020-06-15 Emergency Farrukh [facility] 1.2.249.530 [id number] Univers 10:37:00 13:33:00 [facility] 350.1.13.10 it y of [place] 4.2.7.2.686 [facility] [phone] [address] ([facility]) 2020-06-15 2020-06-15 Emergency X FARRUKH [facility] ERT [id number] Univers 10:37:00 13:33:00 [facility] 2020-05-31 2020-05-31 Office Carey-Staci [facility] 1.2.840.114 [id number] [facility] 13:12:23 14:52:05 Visit Michel bourne AMBULATOR 350.1.13.21 College G Y 0.2.7.2.686 of [id number] [facility] 800 e 2020-05-31 2020-05-31 Office Carey-Staci [facility] 1.2.840.114 [id number] 13:12:23 14:52:05 Visit es, Michel AMBULATOR 350.1.13.21 G Y 0.2.7.2.686 [id number] 800 2020-05-29 2020-05-29 Emergency [place] DCRITA 1.2.217.808 [id number] Univers 01:02:00 05:10:00 Yoni [facility] 350.1.13.10 it y of [place] 4.2.7.2.686 [facility] [id number] [address] ([facility]) 2020-05-29 2020-05-29 Emergency X LINCOLN, [facility] ERT [id number] Univers 01:02:00 05:10:00 YONI [facility] 2020-05-21 2020-05-21 Outpatient EL SLEH SLEH [id number] [facility]H 00:00:00 00:00:00 2020-05-03 2020-05-03 Outpatient EL SLEH SLEH [id number] SLEH 00:00:00 00:00:00 2020-04-17 2020-04-17 Office Carey-Hieumaddy [facility] 1.2.840.114 [id number] [facility] 14:43:25 16:24:07 Visit es, Michel AMBULATOR 350.1.13.21 College G Y 0.2.7.2.686 [id number] [facility] 800 e 2020-04-17 2020-04-17 Office Carey[place] [facility] 1.2.840.114 [id number] 14:43:25 16:24:07 Visit es, Michel AMBULATOR 350.1.13.21 G Y 0.2.7.2.686 [id number] [facility] 2020-04-04 2020-04-04 [facility] 1.2.840.114 [id number] Univers 10:00:00 23:59:00 Encounter Cruz Gregory SPECIALTY 350.1.13.10 ity of CARE 4.2.7.2.686 [facility] AT [phone] Dc avtarjanett SAMANTHATamara [address] [place] [address] 2020-04-04 2020-04-04 Outpatient R FIDENCIO [facility] [id number] Univers 00:00:00 00:00:00 CRUZ [facility] 2020-03-28 2020-03-28 Outpatient R FIDENCIO [facility] [id number] Univers 10:45:00 10:45:00 CRUZ [facility] 2020-03-28 2020-03-28 Stamper Blocker Vls-Lab [facility] 1.2.840.114 [id number] Univers 10:29:49 10:44:49 Visit Cruz Nicolas SPECIALTY 350.1.13.1 0 ity of [place].2.7.2.686 [place] AT [id number] [facility]IS 353 [facility] 2020-03-22 2020-03-22 [facility] 1.2.840.114 [id number] Univers 08:30:00 23:59:00 Encounter Cruz Gregory SPECIALTY 350.1.13.10 ity of [place] 4.2.7.2.686 [place] AT [phone] Dc andrew MORRIS 805 [facility] 2020-03-22 2020-03-22 Outpatient R FIDENCIO [facility] [id number] Univers 00:00:00 00:00:00 CRUZ ity of [facility] 2020-03-06 2020-03-06 Emergency Vito, TRAUMA 1.2.291.545 [id number] Univers 10:28:00 12:30:00 [facility] 350.1.13.10 ity of 4.2.7.2.686 [facility] [phone] [address] 2020-03-06 2020-03-06 Emergency X MARIAELENA KINSEY [facility] ERT [id number] Univers 10:28:00 10:28:00 [facility] HAIMILEY ity of [facility] 2020-02-19 2020-02-22 [facility] Krery [facility] 1.2.840.11 [id number] Univers 11:34:00 23:35:00 Encounter Valencia Welsh [facility] 350.1.13.10 ity of Eva [place] 4.2.7.2.686 [place] [id number] ([facility]) 2020-02-19 2020-02-19 Emergency X [facility] ERT [id number] Univers 11:34:00 11:34:00 CYNISE ity [facility] 2020-01-15 2020-01-15 [facility] 1.2.781.421 [id number] Univers 18:09:00 18:46:00 [facility] 350.1.13.10 it y of [place] 4.2.7.2.686 [facility] [phone] [address] ([facility]) 2020-01-15 2020-01-15 Emergency X FARRUKH, [facility] ERT [id number] Univers 18:03:00 18:03:00 DORINDA tamara [facility] 2019-12-18 2019-12-18 Emergency Lincoln, [facility] 1.2.449.439 [id number] Univers 11:22:00 14:42:00 Yoni [facility] 350.1.13.10 it y of [place] 4.2.7.2.686 [facility] [id number] [address] ([facility]) 2019-12-18 2019-12-18 Emergency X LINCOLN, [facility] ERT [id number] Univers 11:22:00 11:22:00 YONI porter [facility] 2019-12-07 2019-12-07 Emergency ER LYTWRICKIE, [facility] Emergency [id number] [facility] 22:33:00 22:33:00 [facility] 2019-09-02 2019-09-02 Emergency [facility] [id number] SL 16:28:00 16:28:00 [id number] 2019-06-26 2019-06-26 Outpatient SheldonTANGELA LABO [id number] [facility] 07:29:00 07:29:[address] 2019-02-16 2019-02-16 Outpatient MHIE JAYIE [id number] Memoria 08:20:00 08:20:00 15 natalya Tee 2019-01-11 2019-01-13 Phone nullFlavo MNA [id number] Memoria 12:36:30 04:59:59 Message r Mejia 00 l momo [facility] 2019-01-11 2019-01-12 Outpatient MHMISCHER MHMISCHER [id number] 07:36:30 23:59:59 00 2018-12-18 2018-12-18 Emergency nullFlavo [facility] [id number] Memoria 06:10:38 08:48:00 rigo Tee 32 l [facility] 2018-12-18 2018-12-18 Outpatient Fiorella [facility] [id number] 01:10:38 03:48:00 Elder [place] 32 2018-09-30 2018-11-[address] [facility] [id number] 13:45:00 14:49:23 2018-10-12 2018-10-12 Emergency nullFlavo [facility] [id number] Memoria 06:46:27 10:55:00 r Randal 31 [facility] 2018-10-12 2018-10-12 Outpatient Kyree Merida [facility] [id number] 01:46:27 05:55:00 Elijah 31 2018-09-30 2018-09-30 Appointmen HE [facility] [id number] [place] 13:45:00 13:45:00 t; JESSICA [facility] [facility] JOSEPH, M.D. ans M.D. 2018-09-10 2018-09-10 Outpatient MHIE MHIE [id number] Memoria 11:00:00 11:00:00 14 natalya [place] 2018-09-08 2018-09-09 Outpatient nullFlavo [facility] unit control worker 4 [id number] Memoria 21:20:00 04:59:59 rigo Ortiz 13 l [facility] 2018-09-08 2018-09-08 Outpatient Bart MG MG [id number] 16:20:00 23:59:59 Brooke Moore 13 2018-09-08 2018-09-08 Ambulatory nullFlavo [facility] unit control worker 4 [id number] Memoria 21:20:00 21:20:00 Pre-Reg r [place] 12 l [facility] 2018-09-08 2018-09-08 Ambulatory nullFlavo [facility] unit control worker 4 [id number] Memoria 21:20:00 21:20:00 Pre-Reg r [place] 11 l [facility] 2018-09-08 2018-09-08 Outpatient MHIE MHIE [id number] Memoria 16:20:00 16:20:00 13 [place] 2018-09-08 2018-09-08 Outpatient MHIE MHIE [id number] Memoria 16:20:00 16:20:00 11 [place] 2018-09-08 2018-09-08 Outpatient MHIE MHIE [id number] Memoria 16:20:00 16:20:00 12 l Randal 2018-09-08 2018-09-08 Outpatient Colon-Celso [facility] [id number] 16:20:00 16:20:00 Brenda don 2018-09-08 2018-09-08 Outpatient Conrado, [facility] [id number] 16:20:00 16:20:00 Long Gore 2018-08-03 2018-08-04 Emergency nullFlavo [facility] [id number] Memoria 17:51:00 02:43:00 r Randal 29 l [facility] 2018-08-03 2018-08-03 Outpatient Ron, Rik [facility] [id number] 12:51:00 21:43:00 Rubenkaiser 29 2018-08-03 2018-08-03 AppointROWAN Wilson [id number] [place] 09:50:00 09:50:00 t; [place] UMANZOR, Ph ysici Anuradha TOLEDO. ans M.D. 2018-07-28 2018-07-29 Between nullFlavo [facility] unit control worker [id number] Memoria 23:31:47 23:31:47 Visit r Chiara 28 l [employer] [place] 2018-07-28 2018-07-29 Outpatient [facility] [id number] 18:31:47 18:31:47 28 2018-07-23 2018-07-24 Between nullFlavo [facility] unit control worker [id number] Memoria 18:26:42 18:26:42 Visit rigo Ortiz 27 l [facility] 2018-07-23 2018-07-24 Outpatient [facility] [id number] 12:26:42 12:26:42 27 2018-07-22 2018-07-23 Outpt Diag nullFlavo [facility] [id number] Memoria 16:05:00 05:59:00 Services r Luke 01 l [facility] 2018-07-22 2018-07-22 Outpatient Bart, OC [facility] [id number] 10:05:00 23:59:00 Brooke Moore 2018-07-19 2018-07-20 Outpatient nullFlavo [facility] unit control worker 4 [id number] Memoria 19:40:00 05:59:59 r Angel 10 l [facility] 2018-07-19 2018-07-19 Outpatient Conrado, MG MG [id number] 13:40:00 23:59:59 Long Michelle 10 2018-07-19 2018-07-19 Outpatient MHIE IE [id number] Memoria 13:40:00 13:40:00 10 natalya Randal 2018-07-16 2018-07-17 Emergency [facility] [id number] Memoria 22:37:00 00:42:00 r Randal 25 l [facility] 2018-07-16 2018-07-16 Outpatient Jasen, [facility] [id number] 16:37:00 18:42:00 Luis A Leija Mika 2018-07-15 2018-07-15 Emergency [facility] [id number] Memoria 19:08:00 19:40:00 r Randal 24 l [facility] 2018-07-15 2018-07-15 Outpatient Ita, [facility] [id number] 13:08:00 13:40:00 Yong Montiel 2018-07-12 2018-07-13 Between nullFlavo [facility] unit control worker [id number] Memoria 17:21:26 17:21:26 Visit r Chiara 23 l [facility] [place] 2018-07-12 2018-07-13 Outpatient MG MG [id number] 11:21:26 11:21:26 23 2018-07-09 2018-07-10 Outpatient nullFlavo [facility] unit control worker 4 [id number] Memoria 17:20:00 05:59:59 r Angel 09 l [facility] 2018-07-09 2018-07-09 Outpatient Bart, MG MG [id number] 11:20:00 23:59:59 Brooke Moore 09 2018-07-09 2018-07-09 Outpatient MHIE IE [id number] Memoria 11:20:00 11:20:00 09 natalya Tee 2018-06-25 2018-06-25 Ambulatory nullFlavo [facility] unit control worker 4 [id number] Memoria 16:00:00 16:00:00 Pre-Reg r [place] 07 l [facility] 2018-06-25 2018-06-25 Ambulatory nullFlavo [facility] unit control worker 4 [id number] Memoria 16:00:00 16:00:00 Pre-Reg r [place] 08 l [facility] 2018-06-25 2018-06-25 Outpatient MHIE [facility] [id number] Memoria 10:00:00 10:00:00 07 natalya Tee 2018-06-25 2018-06-25 Outpatient Alessio, [facility] [id number] 10:00:00 10:00:00 Eva Arroyo 2018-06-25 2018-06-25 Outpatient [facility] [id number] 10:00:00 10:00:00 07 2018-06-25 2018-06-25 Outpatient [facility] [facility] [id number] 10:00:00 10:00:00 07 2018-06-25 2018-06-25 Outpatient Mccallum, [facility] [id number] 10:00:00 10:00:00 Eva Arroyo 2018-06-15 2018-06-15 Ambulatory nullFlavo [facility] unit control worker 4 [id number] Memoria 17:30:00 17:30:00 Pre-Reg r [place] 06 l [facility] 2018-06-15 2018-06-15 Ambulatory nullFlavo [facility] unit control worker 4 [id number] Memoria 17:00:00 17:00:00 Pre-Reg r [place] 05 l [facility] 2018-06-15 2018-06-15 Outpatient Alessio, [facility] [id number] 11:30:00 11:30:00 Eva Arroyo 2018-06-15 2018-06-15 Outpatient Alessio, [facility] [id number] 11:30:00 11:30:00 Eva Arroyo 2018-06-15 2018-06-15 Outpatient MHIE MHIE [id number] Memoria 11:00:00 11:00:00 05 natalya Tee 2018-06-15 2018-06-15 Outpatient [facility] [id number] 11:00:00 11:00:00 2018-06-15 2018-06-15 Outpatient [facility] [id number] 11:00:00 11:00:00 05 2018-06-03 2018-06-03 Emergency [facility]Fl[facility] [id number] Memoria 13:46:00 17:48:00 rigo Tee [address] [place] [address] 2018-06-03 2018-06-03 Outpatient Rik Velasquez [facility] [id number] 07:46:00 11:48:00 Laxamana 21 2018-06-01 2018-06-01 Ambulatory nullFlavo [facility] unit control worker 4 [id number] Memoria 22:00:00 22:00:00 Pre-Reg r [place] 03 [facility] 2018-06-01 2018-06-01 Ambulatory nullFlavo [facility] unit control worker 4 [id number] Memoria 21:45:00 21:45:00 Pre-Reg r [place] 04 [facility] 2018-06-01 2018-06-01 Outpatient MHIE MH[facility] [id number] Memoria 16:00:00 16:00:00 03 [facility] 2018-06-01 2018-06-01 Outpatient MHMG [facility] [id number] 16:00:00 16:00:00 03 2018-06-01 2018-06-01 Outpatient MHIE MHIE [id number] Memoria 15:45:00 15:45:00 04 natalya [place] 2018-06-01 2018-06-01 Outpatient Mccallum, [facility] [id number] 15:45:00 15:45:00 Eva Arroyo 2018-05-25 2018-05-25 Ambulatory nullFlavo [facility] unit control worker 4 [id number] Memoria 21:45:00 21:45:00 Pre-Reg r [place] [facility] 2018-05-25 2018-05-25 Ambulatory nullFlavo [facility] unit control worker 4 [id number] Memoria 21:00:00 21:00:00 Pre-Reg r [place] 02 [facility] 2018-05-25 2018-05-25 Outpatient MHIE MHIE [id number] Memoria 15:45:00 15:45:00 natalya [place] 2018-05-25 2018-05-25 Outpatient Mccallum, [facility] [id number] 15:45:00 15:45:00 Eva Arroyo 2018-05-25 2018-05-25 Outpatient [facility] [id number] 15:00:00 15:00:00 2018-05-20 2018-05-21 Outpatient nullFlavo [facility] unit control worker 4 [id number] Memoria 19:00:00 05:59:59 r [place] 00 [facility] 2018-05-20 2018-05-20 Outpatient Bart MH [facility] [id number] 13:00:00 23:59:59 Brooke Moore 00 2018-05-20 2018-05-20 Outpatient IE IE [id number] Memoria 13:00:00 13:00:00 00 natalya Tee 2018-04-02 2018-04-02 Emergency [facility] [id number] Memoria 09:21:00 15:46:00 r Randal 19 l [facility] 2018-04-02 2018-04-02 Outpatient Bonilla, [facility] [id number] 03:21:00 09:46:00 Liping 19 2018-03-02 2018-03-02 Emergency [facility] [id number] Memoria 08:32:00 10:44:00 r Randal 18 l [facility] 2018-03-02 2018-03-02 Outpatient Kyree Merida [facility] [id number] 03:32:00 05:44:00 Elijah 18 2018-02-15 2018-02-15 ROWAN Matthews UTP [id number] [place] 09:15:00 09:15:00 t; CASSI MCCAIN Phy sici GEORGE, M.D. ans MRobert 2018-02-03 2018-02-04 Inpatient [facility] [id number] Memoria 19:58:00 02:27:00 r Randal 62 l [facility] 2018-02-03 2018-02-03 Outpatient Braden, [facility] [id number] 14:58:00 21:27:00 Mika Long 62 2017-12-21 2017-12-21 Emergency [facility] [id number] Memoria 17:56:00 22:12:00 r Randal 17 l [facility] 2017-12-21 2017-12-21 Outpatient Doroteo [facility] [id number] 12:56:00 17:12:00 Poncho Barrios 2017-11-16 2017-11-16 ROWAN Matthews UTP [id number] [place] 10:15:00 10:15:00 t; CASSI MCCAIN Phy sici GEORGE, M.D. ans M.D. 2017-11-12 2017-11-12 Emergency [facility] [id number] Memoria 00:01:00 06:21:00 r Randal 16 l [facility] 2017-11-11 2017-11-12 Outpatient Gary, [facility] [id number] 19:01:00 01:21:00 Maverick 16 2017-11-02 2017-11-02 Appointmadisyn MCCAIN ROWAN DONAHUE [id number] [place] 10:30:00 10:30:00 t; CASSI MCCAIN Phy Jerod John M.D. 2017-10-29 2017-10-29 Emergency [facility] [id number] Memoria 17:52:00 19:48:00 r Randal 15 l [facility] 2017-10-29 2017-10-29 Outpatient Alan, [facility] [id number] 12:52:00 14:48:00 Marcell Sheppard 15 2017-09-21 2017-09-21 Emergency [facility] [id number] Memoria 00:06:00 02:08:00 r Randal 14 l [facility] 2017-09-20 2017-09-20 Outpatient Andrew, [facility] [id number] 19:06:00 21:08:00 Timothy De La Rosa 14 2016-10-05 2016-10-05 Emergency [facility] [id number] [place] 00:27:03 00:27:03 [facility] 2016-10-04 2016-10-04 Inpatient [facility] [id number] Chandler 23:14:22 23:14:22 [facility] 2016-06-05 2016-06-05 Emergency [facility] [id number] Memoria 15:42:00 19:26:00 rigo Tee 13 l [facility] 2016-06-05 2016-06-05 Outpatient Elan, [facility] [id number] 09:42:00 13:26:00 Benito Elizabeth 13 2015-12-03 2015-12-03 OBS Day [facility] [id number] Memoria 11:39:00 16:45:00 Surgery r Randal 12 l [facility] 2015-12-03 2015-12-03 Outpatient Najma, [facility] [id number] 06:39:00 11:45:00 aDx Camara 12 2015-11-22 2015-11-23 Outpatient [facility] [id number] Memoria 15:01:00 04:59:00 r Randal 11 l [facility] 2015-11-22 2015-11-22 Outpatient Edward, [facility] [id number] 10:01:00 23:59:00 Solomon Rawls 11 2015-11-15 2015-11-15 EC [facility] [id number] Memoria 13:55:00 17:44:00 Emergency r Randal 10 l [facility] 2015-11-15 2015-11-15 Outpatient Gary, [facility] [id number] 08:55:00 12:44:00 Maverick 10 2015-05-04 2015-05-07 Inpatient [facility] [id number] Memoria 20:19:00 19:29:00 r [place] 09 l [facility] 2015-05-04 2015-05-07 Outpatient Edward Graham [facility] [id number] 14:19:00 13:29:00 Walter 09 2015-03-28 2015-03-28 EC [facility] [id number] Memoria 17:57:00 21:58:00 Emergency r Randal 08 l [facility] 2015-03-28 2015-03-28 Outpatient Dax Bass [facility] [id number] 11:57:00 15:58:00 Gianluca 08 2014-12-19 2014-12-21 Inpatient [facility] [id number] Memoria 20:01:00 18:26:00 r Randal 07 l [facility] 2014-12-19 2014-12-21 Outpatient Blaine [facility] [id number] 15:01:00 13:26:00 Bobby 07 2014-11-17 2014-11-17 EC [facility] [id number] Memoria 04:15:00 05:24:00 Emergency r Randal 06 l [facility] 2014-11-16 2014-11-17 Outpatient Haseeb, 2.16.840. 2.16.840.1. 4 [id number] 23:15:00 00:24:00 Vivek [id number] Pilo [id number] 68 2310-05-26 2014-10-11 [facility] [id number] Memoria 19:09:00 02:37:00 Emergency r [place] 05 l [facility] 2014-10-10 2014-10-10 Outpatient Alan, 2.16.840. 2.16.840.1 . [id number] 14:09:00 21:37:00 Marcell Sheppard [id number] [id number] 59 1590-04-20 2014-09-07 Inpatient [facility] [id number] Memoria 15:36:00 23:28:00 r Randal 04 l [facility] 2014-09-04 2014-09-07 Outpatient Mari, 2.16.840. 2.16.840.1. 4 [id number] 10:36:00 18:28:00 Maverick Sigala [id number] [id number] 9104-09-09 2014-01-25 Inpatient [facility] [id number] Memoria 05:29:00 23:28:00 r Randal 03 l [facility] 2014-01-24 2014-01-25 Outpatient Carlene 2.16.840. 2.16.840. 1. [id number] 00:29:00 18:28:00 , Rashard [id number] 5.0.101 01 Results Test Description Test Time Test Comments Results Result Comments Source Tissue Exam 2021-06-10 08:37:32 Test Item Value Reference Range Interpretation Comme nts Case Report (test code = 104) Surgical Pathology Report Case: [id number] Authorizing Provider: Michel Felix Collected: 06/07/2021 03:04 PM MD Isabela Ordering Location: [facility] PER[facility] Received: 06/10/2021 06:31 AM SERVICES Pathologist: Napoleon Bach MD Specimen: Hardware, GASTRIC LEADS FOR ID ONLY DIAGNOSIS (test code = 3220) i8kctJVyCAOgm0itQAKivDCiJyIfEoKrMuJwDw pcd WMxIHtccnRmMVxlcGljOTYwMVxhbnNpXHNwbHRwZ3 NthjpbPQscJZ0nHN2otUnanHLboJKhKSSfOjEuw2u ln890xUFbi9zyEHYLxluyrWm9pIfhM66tf8N2Lpvg Z20drGJbWAU5LJYiZVBmaAUeTIZfRIF3KVWxzYTiI 8asSSXhKW9aemjcWIyjQXhxCFNzbSD4LTKdbEDsZ7 NwQYKlNLmlDHCyqyo6EwRkPy1brPKjoUtwDTjmKDI rPYVsATtoKPFsFvTtTzQZHw1ZONOQFQCCQPVIILHC R2YRTBlzGwFDK3IRUDrunOuvGIMrFQZeMRPlEPFVQ PNqFKGIBaUDOyaVPDAzP6BRP4XiX87QDCcleIIwdN hurhJzGRsbb7QdTKnoGWAcTN0egUrkUNFjRO8mFVQ hR0uhiV9wncw1IwRtBRJpEbF3RSXormJ7Soj7UWPt TDift7sre2UeIPYnIWq8aTbiNgXmUCUvq1vgwgKtV mTeUACcDTEvCUZpeFMbZ662m9tze9nhrxKzySK0UN MsARB6NJxnbwMziuV9XQrffUVePyR6ARslqoCwYKy zjrHgotDbHbb2JCObI643ROM4jNcmo8avKDU3FFBo VFPiQlZiRf9jeHMhV190LDMiCSZIWAVggTi9PKTxe mGebcGnrMEZb502S155d5noCWKghkAuuEjUdlhkj7 bmJ840JWPojERwqwGdNwKcXCSuwRZngCA9QLAhWW4 qzpvaGPmiYZbnULFtuvG3SZDwmDScS8MvLRKgPL6c bmcsGDH0VArrVYAuBAF6UbWoBJKeq6Gtlqc1MnTxl n5mim64VZO2j8WccXnuKUJ0MDT7IsWwLt0znWBxUC AqTG9hToMajPOpKKIsyz88oBkdCAsiGLW2RKXvsiZ je7Gln0pbDjPtacYwN8toZ2WlGFMkMRRpVUXsEwZv bjCpq3Nni6DwoVDasLj5t5klYYFoBJJpdYiga3ehQ TF4HGBrwJOoI0moyZ2yPAAnDF9vgvrce6ccONtaOB uyFRRksUU0rjL8DWSivGYrC6JjcJ7dENMgWOfcJQC bvmp4NuWfQo5poDCtpGdzGQsqZfyeLSrqOIOszcHn bnRccGduZGVjXHBsYWluXHBsYWluXGYwXGZzMjRcc WxcbGFuZzEwMzNcaGljaFxmMVxkYmNoXGYxXGxvY2 ygScCeRiCvOba8XRAwoBEeVKBgExc9XJQkhNEhWKN IlMactX4tIIItdFqgnB4xtPO7NFUtmiRbmRSPxE5b FOHLyB1eZnT3LTYyEhl6PQM5VdUamWLkcC9= CPT Code(s) (test code = 3357) y3zvvNLoOSVajDQ8TbCyEMYvj2ets3OrgHOs cGFyX FmhkJPznhYltr25nQH7zY71IM1lTVHeLzW4INCctf L5Efe2DACdYGUzgRMcO550f9piy4rpczOknVZ7qEp nGTOhekbfThR9JTamADZhqgnoVBb9XGtyINKcaLP8 ZEAteEPfI4WoZIIoXD4plke5RLK5GXprGCJiVhN0T BTddHCiRPExjApiOQirb056YYE0SfVsLXQxjvYgfY vnlP6zUmHrXUR4JCFrZThaJZB4 CLINICAL HISTORY (test code = 3356) o1bsaUSzGVZxoYF1ZtQhZGRau3hwg3F sdHBncGFyX UefrFGpmcWbrm58aND7jN15VS1zNDRfArO2CJGdtg N7Sla5VWVwWPCqsMOiQ543d1xgk3esdyJqoOG7mEd tLOMfgxxpBaW6MLpbXWAriekmMXk1MZmgMSMbpYJ8 UVIsmVUsM0YbTTElQC5tfqb8DNC8FIppJPZqMyN1Z SIksCFqRARkhLrmLPzdq874RUY3RvVkGQErjeRljG qarO7bPoLgTXNPQGN8eb8cBQXkw3wdGXMlMZCawAU rZXIgZmFpbHVyZVxwYXJ9 SPECIMEN SOURCE (test code = 3377) w5djkRTwCAAfoJK3UqGhHYPre5avy5Wj dHBncGFyX HecdBTjbtRdvh75cDE8yD15VI8eEFJxFrR4OFRcwv U4Oug3XWHlQOFetCMmW073t5fdo8aslfKvpEN7bMu dBHWzavkjYzN5NOrhBPHeeniuGUs9MRuxKSJmkWE7 JDSnbZDlW2YhYYWkPF1dtnq5QKN7TRbuNUTuEqB6J VYbgIRfKVAovDbrOYbxv821OTU1KdXtOJCooxCsoF iqsC0eJnPuQYFXYXN2btzdCA4pbVWew3CaiURzWXM vclxwYXJ9 GROSS DESCRIPTION (test code = 3366) t1ttjWGjMGPxqPFrBtJtQLNwHIS gr1tyUYYtpSFhY aZwHsAxHbRrGslckRThSVZcBiXlu4jcn329eJYcb5 inEZIdCeR6tZLaGCLvfRTnF131g3kjr2xzezHhsSG 2XALlHNH2BPspduLetzV6RTitdZNsKeT3LUwqseJd DRoswgVqrgPjLil5TMGjE620NZP8uMkzz8pbWWB1B URuXBKxCiGiNs3sjAJaU823OBDeXLHZFQDkfDk4NK IkiaKcvpSkxLLFm125U203s7ckGEVqgrHyzTaHvld fl6ocV794SGKxyBUmwhHdLiRvSSVejFMhrFH1BFWm DE0btnpyRtCgEH4qqpbdKsUcIG9tgla5QsHpNW5fd ktxTbEjXXopQWGeojqsGVXao9YuszfbRB3qX3Qyl5 M1uF3lrZEkZHXahVByYiFjUDTpsy6ecTTwYGtkl2P eKYQ7lhH1yEJqpUEhUNHoUY35Cxich3ZdQdsjIYL4 QVObtkGjm5Ufj8qeEfUdzdHsK6yyU4UqBFUtOJBkW ZVdMhFhfdWah5Byw5SkkQArnRw4a0hvJJHgDOQvxT ptk8myZYH2RUDvK7Z1sIRfe3huPSngJJWsoIY7uzz kYRamYUFmvmV9yrbpYVtmSGQurQS4cdiiRMaoFCQi QkS2xkaeNQjrDHVbIKC0FWgqy442NER0QDpaDvtuK WdlXHBnbmNvbnRccGduZGVjXHBsYWluXHBsYWluXG QgGHOyGcJyiRdltIdvlH6wOvDuPyPyMCwpGF0iYQH pZ0wtpCLaCGVnEXAqA5zrNaYfvE2tkYuyYPgapgKg BQToIMLvU4MnhuPiFFThJAVmLHuxMnKiKQHxr7z7i DI4kVJvpCJ5sZQipDyeDiNeWL0wpDUwMD9bSZlaCY rgmiZml3UsFN35tXIallDmmcHrSsynqyO5WUPdAwJ bwfUrTzJzEYOanlMaCDLfiSJtzikkPoKfA96hOQ3h OROrSvSjO09iyA4amAAnR3YmVWJhARZyUHGxCPHlf VRgqwJrdYZvQPGwhn3rMHSouE9wO0TiWIzvAGHsmW FcgO6kR0BlRgVbUKjseCafLn3NXHFzBJT4KYLLLER uHZ2qUNGeJATotY8paVHaTUanBODhbDDjwE7iU7Iv OfTpFQmleTksSvhGOVB9TKSwTq8cJXYPyULpBVRcC 3JxhiDoPAxxGXWtHNVrTX5gUYHhxwFfgP2gkaDplk HxBZO7kRv2ORPyoCSxtRtlMAbzp5NuJ1fvaTWiKYL keDEvFBSrpWDbhlnuZU55IZknKZ6aQXgzJF8qPLVj YOXyXZXsIZJxmtD4zDTrIGEsFF1ufKHlQB60YHBjb YJkLZW8MP3pyrOhbFQyNDQmHS2gUZH0qvsmRrPuZs XeJ33lcZ0fJKanhEG7GOFmXS0bHRWjQjLqcTNvpvJ aNDxuxBRxCNUKGGtnl2OlFDGhb3YvG8VkfDbpbSNx lGEuOC7mSAGRzpWzZTW5pC3cpwVnpzMty5AduYn0x UTjPVtnz9DvUH0yqRqbXPNdagfjDJNdN4hclVXwRJ ZSgsT1zxugNLePEGKBZMKmOIENJNtslGkiRPO1 MICROSCOPIC DESCRIPTION (test code = o1jwcOXdLSGeoLI3JeWbZCBfs3a kj7GzuMYnvJMzE 3370) EgqnOOhblNnkj22uFK0yS32OC8uEIStUoG9FUUetc P7Ucn5OAFvKLWxfLWdH445m4pec7kuzbHvxBU8wMz cFMBghbrcVcA9VJjkPGGubjlkCLw6THqsKSDsuOY2 PAXgnBSrU8BlVPHgBM1kcyb1WIZ0BLzdUUVePlM8F HVamHWiEOIgpTcjWNrpe448ELZ2PfJkDQWcmwYapJ bboJ8hQhRvOYGGu5BouDSeOq6wwVTsVVJbaa7= [id number] 08:37:32Surgical Pathology Report Case: [id number] Authorizing Provider: Michel Felix Collected: 06/07/2021 03:04 PM MD Isabela Ordering Location: [facility] PERI[facility] Received: 06/10/2021 06:31 AM SERVICES Pathologist: Napoleon Bach MD Specimen: Hardware, GASTRIC LEADS FOR ID ONLY NEUROSURGICAL HARDWARE, REMOVAL: -LEADS IDENTIFIED (GROSS ONLY) Signing Pathologist Direct Phone Line: [phone] lectronically signed by Napoleon Bach MD on 06/10/2021 at 8:37 [id number], pacemaker failureGastric neurostimulatorA. Received fresh labeled with the patient's name, medical record number and "hardware" are 2 leads measuring 31 cm and 20.5 cm in length, each 0.1 cm in diameter. A longer lead is inscribed with "[id number]," and the shorter lead is inscribed with"[id number]." Also receivedin the same container are 4 white plastic-like clips each measuring 0.9 x 0.2 x 0.1 cm and 2 circular translucent, rubbery object each measuring 1.3 cm in diameter and 0.2 cm in height. A gross photogra ph is taken. No sections are submitted-gross only.DEXTER Nix PA (ASCP)cmNot performedPOC-Glucose [id number] 23:54:11 Test Item Value Reference Range Interpretation Comments POC-Glucose Meter (test 306 mg/dL 70-110 H : TE STED AT [facility] code = 1538) [address] [facility], 770 30: Extension Work Instructor/Techni vanessa ID = [id number] for Nay Cross na Lab Interpretation (test Abnormal code = 61328-8) [facility] [id number] 23:54:11 Test Item Value Reference Range Interpretation Comments POC-GLUCOSE METER 306 mg/dL 70-110 H : [facility] (BEAKER) (test code = [facility], 1538) 80[address]: Extension Work Instructor/Techni vanessa ID = [id number] for Yoli Mckeon POCT-GLUCOSE [id number] 23:07:41 Test Item Value Reference Range Interpretation Comments POC-GLUCOSE METER 378 mg/dL 70-110 H : TESTED A T [facility] 6720 ([facility]) (test code = [facility], 153) 02123: Extension Work Instructor/Techni vanessa ID = [id number] for Yoli Mckeon POCT-GLUCOSE [id number] 22:07:24 Test Item Value Reference Range Interpretation Comments POC-GLUCOSE METER 332 mg/dL 70-110 H : [facility] 67[facility] (BEAKER) (test code = [facility], 153) 11590: Extension Work Instructor/Techni vanessa ID = [id number] for Yoli Mckeon POCT-GLUCOSE [id number] 20:03:45 Test Item Value Reference Range Interpretation Comments POC-GLUCOSE METER 438 mg/dL 70-110 HH : Notified RN/MD: (CASS) (test code = TESTED AT [place] [address] 1538) [facility], [address]: Extension Work Instructor/Techni vanessa ID = [id number] for Eduardo Shabazz POCT-GLUCOSE [id number] 19:40:54 Test Item Value Reference Range Interpretation Comments POC-GLUCOSE METER 403 mg/dL 70-110 HH : Notified RN/: (CASS) (test code = TESTED AT [place] [id number] 1538) [facility], [address]: Extension Work Instructor/Techni vanessa ID = [id number] for Da vis, Emili POCT-GLUCOSE [id number] 18:35:36 Test Item Value Reference Range Interpretation Comments POC-GLUCOSE METER 384 mg/dL 70-110 H : [facility] 67[facility] ([facility]) (test code = [facility], 1538) 11162: Extension Work Instructor/Techni vanessa ID = [id number] for KENNA SIDHU POCT-GLUCOSE [id number] 16:51:42 Test Item Value Reference Range Interpretation Comments POC-GLUCOSE METER 196 mg/dL 70-110 H : Notified RN/MD: TESTED ([facility]) (test code AT [facility] [address] = 1538) [facility], 770 30: Extension Work Instructor/Techni vanessa ID = [id number] for Bang Jorgensen POCT-GLUCOSE [id number] 15:42:33 Test Item Value Reference Range Interpretation Comments POC-GLUCOSE METER 203 mg/dL 70-110 H : [facility] 6720 ([facility]) (test code = [facility], 1538) 13076: Extension Work Instructor/Techni vanessa ID = [id number] for EPHRAIM TRAN POCT-GLUCOSE [id number] 14:15:49 Test Item Value Reference Range Interpretation Comments POC-GLUCOSE METER 243 mg/dL 70-110 H : [facility] 6720 ([facility]) (test code = [facility], 1538) 74847: Extension Work Instructor/Techni vanessa ID = [id number] for CL SYDNI ARCEN POCT-GLUCOSE [id number] 11:20:58 Test Item Value Reference Range Interpretation Comments POC-GLUCOSE METER 197 mg/dL 70-110 H : TESTED A T [facility] 6720 ([facility]) (test code = [facility], 1538) 10902: Extension Work Instructor/Techni vanessa ID = [id number] for RA Y, ALTON Type and screen, [id number] 10:02:00 Test Item Value Reference Range Interpretation Comments ABO/RH AUTOMATED ([facility]) (test B POSITIVE code = 2260) Ab Scrn (test code = 890-4) NEGATIVE [facility] [id number] 09:12:56 Test Item Value Reference Range Interpretation Comments POC-GLUCOSE METER 227 mg/dL 70-110 H : TESTED A T [facility] 6720 (BEAKER) (test code = [place], 1538) [address]: Extension Work Instructor/Techni vanessa ID = [id number] for [place] POCT , [id number] 09:06:00 Test Item Value Reference Range Interpretation Comments Test Urine, POC (test Negative code = 9475973) Control line present?, POC (test Yes code = 6068829) Background clear?, POC (test code Yes = 8120115) UPT Cassette Lot #, POC (test code 0903871 = [id number]) UPT Cassette Expiration Date, POC 05-17-2022 (test code = 2242358) [facility]21-[facility]-06 22:37:21 Test Item Value Reference Range Interpretation Comments SARS-COV2/RT-PCR Negative Not Detected, (test code = Negative, See 81841-7) external report for linked test SARS-COV-2 [facility] PERFORMING LAB (test code = 10192-2) [place] (test code = Negative result for this [place]) test determines that SARS-CoV-2 RNA was not present in the specimen above the Limit of Detection (LOD). However, Negative results do not preclude SARS-CoV-2 infection and should not be used as the sole basis for treatment or patient management decisions. Negative results must be combined with clinical observations, patient history, and epidemiological information. A false negative result may occur if a specimen is improperly collected, transported or handled. A false negative result should be considered if patient's recent exposures or clinical presentation indicate that COVID-19 (SARS-CoV-2) is likely and diagnostic tests for other causes of illness are negative. Re-testing should be considered in cases of suspected false negatives. The limit of detection for this assay is 800 copies/mL. This SARS CoV-2 test is a real-time RT-PCR test intended for the qualitative detection of nucleic acid from SARS-CoV-2 in a nasopharyngeal swab specimen collected from individuals suspected of COVID-19 by their healthcare provider. This test has not been Food and Drug [...] is revoked under Section 564(g) of the Act. Fact Sheet for Healthcare Providers:https://www.ZYOMYX/sites/default/f tata/product/documents/F act_Sheet_HC_Providers_L stt_PMYR-MwL-1.pdf Fact Sheet for Healthcare Patients:https://www.RxRevu/sites/default/fi les/product/documents/Fa ct_Sheet_Patients_Lyra_S ARS-CoV-2.pdf Performing Laboratory:[facility], [place] [id number] [place], [place] [address]ARS-COV2/RT-PCR ([facility])2021-06-06 22:37:21 Test Item Value Reference Range Interpretation Comments SARS-COV2/RT-PCR (test Negative Not Detected, Negative, code = 3282379) See external report for linked test SARS-COV-[address] [facility] GERA (test code = 3998578) Negative result for this test determines that SARS-CoV-2 RNA was not present in the specimen above the Limit of Detection (LOD). However, Negative results do not preclude SARS-CoV-2 infection and should not be used as the sole basis for treatment or patient management decisions. Negative results must be combined with clinical observations, patient history, and [...] swab specimen collected from individuals suspected of COVID-19 by their healthcare provider.This test [...] justifying the authorization of the emergency use ofin vitro diagnostic tests for detection and/or diagnosis of COVID-19 is terminated under Section 564(b)(2) of the Act or the EUA is revoked under Section 564(g) of the Act.Fact Sheet for Healthcare Prov iders:https://www.[employer]ot Stats/sites/default/files/product/documents/Fact_Sheet_HC _Tucktywsh_Lscc_BDRC-ImQ-4.pdfFact Sheet for Healthcare Patients:https://www.[employer]/sites/default/files/product/docume nts/Ftdd_Gpfux_Ziieuyym_Wcaz_YMTO-KvT-3.pdfPerforming Laboratory:[address] [facility].[place] [id number] METER 2021-05-30 11:42:07 Test Item Value Reference Range Interpretation Comments POC-GLUCOSE METER 269 mg/dL 70-110 H : Notified RN/MD: (CASS) (test code = TESTED AT [place] [id number]38) [facility], [address]: Extension Work Instructor/Techni vanessa ID = [id number] for ALINA TRUJILLO POCT-GLUCOSE [id number] 09:01:21 Test Item Value Reference Range Interpretation Comments POC-GLUCOSE METER 94 mg/dL 70-110 : TESTED A T [facility] 67[address] ([facility]) (test code = [facility], 1538) [address]: Extension Work Instructor/Techni vanessa ID = [id number] for PROD ADRIEN SOWMYA POCT-GLUCOSE [id number] 07:51:25 Test Item Value Reference Range Interpretation Comments POC-GLUCOSE METER 75 mg/dL 70-110 : TESTED A T [facility] [address] ([facility]) (test code [facility], = 1538) [address]: Extension Work Instructor/Techni vanessa ID = [id number] for MEME KHAN Basic Metabolic [id number] 07:25:52 Test Item Value Reference Range Interpretation Comments Sodium (test code = 138 meq/L 798-288 7451-2) Potassium (test 4.1 meq/L 3.5-5.1 code = 2823-3) Chloride (test code 105 meq/L 98-107 = 2075-0) CO2 (test code = 28 meq/L 22-29 8-9) BUN (test code = 7 mg/dL 7-21 3094-0) Creatinine (test 0.74 mg/dL 0.57-1.25 code = 2160-0) Glucose (test code 72 mg/dL 70-105 = 2345-7) Calcium (test code 9.4 mg/dL 8.4-10.2 = 14762-2) EGFR (test code = 92 mL/min/1.73 [place] [address]-1) NOT ACCURATE CREATININE CLEARANCE IN PREDICTING GLOMERULAR FILTRATION RATE . ESTIMATED GFR I S NOT APPLICABLE FOR DIALYSIS PATIEN TS. [place] (test code = Extension Work Instructor ID - ORLANDO) [facility] [id number] 07:25:52 Test Item Value Reference Range Interpretation [...] S NOT APPLICABLE FOR DIALYSIS PATIEN TS. Extension Work Instructor ID - IZA GCBC with platelet count + automated [id number] 07:16:43 Test Item Value Reference Range Interpretation Comments WBC (test code = 6690-2) 7.0 See_Comment [A utomated message] The system Kandu generated this result transmitted ref erence range: 3.5 - 10 .5 K/L. The refe rence range was not u sed to interpret this result as normal/abnor mal. RBC (test code = 789-8) 4.00 See_Comment [Au tomated message] The system Kandu generated this result transmitted ref erence range: 3.93 - 5 .22 M/L. The refe rence range was not u sed to interpret this result as normal/abnor mal. MCHC (test code = 786-4) 32.5 See_Comment [A utomated message] The system Kandu generated this result transmitted ref erence range: 32.2 - 3 5.5 GM/DL. The refe rence range was not u sed to interpret this result as normal/abnor mal. Hematocrit (test code = 41.5 % 34.1-44.9 4544-3) MCV (test code = 787-2) 103.8 fL 79.4-94.8 H MCH (test code = 785-6) 33.8 pg 25.6-32.2 H RDW (test code = 788-0) 11.6 % 11.7-14.4 L Platelets (test code = 274 See_Comment [Aut omated message] 777-3) The system Kandu generated this result transmitted ref erence range: 150 - 45 0 K/CU MM. The referen ce range was not u sed to interpret this result as normal/abnor mal. MPV (test code = 10.2 fL 9.4-12.3 48806-9) nRBC (test code = 413) 0 See_Comment [Aut omated message] The system Kandu generated this result transmitted ref erence range: 0 - 0 /1 00 WBC. The refere nce range was not u sed to interpret this result as normal/abnor mal. % Neutros (test code = 38 % 429) % Lymphs (test code = 43 % 430) % Monos (test code = 7 % 431) % Eos (test code = 432) 11 % % Baso (test code = 437) 1 % # Neutros (test code = 2.69 See_Comment [Aut omated message] 670) The system Kandu generated this result transmitted ref erence range: 1.56 - 6 .13 K/L. The refe rence range was not u sed to interpret this result as normal/abnor mal. # Lymphs (test code = 3.02 See_Comment [Auto mated message] 414) The system Kandu generated this result transmitted ref erence range: 1.18 - 3 .74 K/L. The refe rence range was not u sed to interpret this result as normal/abnor mal. # Monos (test code = 0.48 See_Comment H [Autom ated message] 415) The system Kandu generated this result transmitted ref erence range: 0.24 - 0 .36 K/L. The refe rence range was not u sed to interpret this result as normal/abnor mal. # Eos (test code = 416) 0.75 See_Comment H [Au tomated message] The system Kandu generated this result transmitted ref erence range: 0.04 - 0 .36 K/L. The refe rence range was not u sed to interpret this result as normal/abnor mal. # Baso (test code = 417) 0.08 See_Comment [A utomated message] The system Kandu generated this result transmitted ref erence range: 0.01 - 0 .08 K/L. The refe rence range was not u sed to interpret this result as normal/abnor mal. Immature 0 % 0-1 Granulocytes-Relative (test code = 2801) Lab Interpretation (test Abnormal code = 67885-4) [facility] W/PLT COUNT & AUTO [id number] 07:16:43 Test Item Value Reference Range Interpretation [...] PERCENT (BEAKER) (test code = 2801) POCT-GLUCOSE [id number] 21:01:16 Test Item Value Reference Range Interpretation Comments POC-GLUCOSE METER 149 mg/dL 70-110 H : TESTED [facility] 6720 (BEAKER) (test code = [place], 1538) [address]: Extension Work Instructor/Techni vanessa ID = [id number] for Al ridge, Gedalia POCT-GLUCOSE [id number] 18:06:01 Test Item Value Reference Range Interpretation Comments POC-GLUCOSE METER 177 mg/dL 70-110 H : TESTED A T [facility] 6720 (BEAKER) (test code [facility], = 1538) 57243: Extension Work Instructor/Techni vanessa ID = [id number] for Abdoul (contract), Leticia dgette POCT-GLUCOSE [id number] 15:27:09 Test Item Value Reference Range Interpretation Comments POC-GLUCOSE METER 181 mg/dL 70-110 H : TESTED A T [facility] 6720 (BEAKER) (test code [facility], = 1538) 07611: Extension Work Instructor/Techni vanessa ID = [id number] for Abdoul (contract), Leticia dgette POCT-GLUCOSE [id number] 12:50:35 Test Item Value Reference Range Interpretation Comments POC-GLUCOSE METER 141 mg/dL 70-110 H : TESTED A T [facility] 6720 (BEAKER) (test code [facility], = 1538) 93858: Extension Work Instructor/Techni vanessa ID = [id number] for Abdoul (contract), Leticia dgette POCT-GLUCOSE [id number] 10:20:50 Test Item Value Reference Range Interpretation Comments POC-GLUCOSE METER 110 mg/dL 70-110 : TESTED A T [facility] 6720 (BEAKER) (test code = [facility], 1538) 60734: Extension Work Instructor/Techni vanessa ID = [id number] for AGUILLON, CAN DACE POCT-GLUCOSE [id number] 08:26:47 Test Item Value Reference Range Interpretation Comments POC-GLUCOSE METER 84 mg/dL 70-110 : TESTED A T [facility] 6720 (BEAKER) (test code = [facility], 1538) 44224: Extension Work Instructor/Techni vanessa ID = [id number] for Abdoul (contract), Leticia dgette CBC W/PLT COUNT & AUTO [id number] 07:49:52 Test Item Value Reference Range Interpretation [...] (BEAKER) (test code = 2801) BASIC METABOLIC [id number] 06:03:42 Test Item Value Reference Range Interpretation [...] S NOT APPLICABLE FOR DIALYSIS PATIEN TS. Extension Work Instructor ID - PIAYA LPOCT-GLUCOSE [id number] 21:41:52 Test Item Value Reference Range Interpretation Comments POC-GLUCOSE METER 235 mg/dL 70-110 H : [facility] 6720 [facility] (test code = [facility], 1538) 23701: Extension Work Instructor/Techni vanessa ID = [id number] for ZBIGNIEW LEVINE RA POCT-GLUCOSE [id number] 20:52:01 Test Item Value Reference Range Interpretation Comments POC-GLUCOSE METER 142 mg/dL 70-110 H : TESTED A T [facility] 6720 (BEAKER) (test code = [facility], 1538) 66426: Extension Work Instructor/Techni vanessa ID = [id number] for ZULEIKA DENISE POCT-GLUCOSE [id number] 18:44:03 Test Item Value Reference Range Interpretation Comments POC-GLUCOSE METER 81 mg/dL 70-110 : TESTED A T [facility] 6720 (BEAKER) (test code = [facility], 1538) 33465: Extension Work Instructor/Techni vanessa ID = [id number] for Sunni Cohen POCT-GLUCOSE [id number] 12:02:23 Test Item Value Reference Range Interpretation Comments POC-GLUCOSE METER 133 mg/dL 70-110 H : TESTED [facility] T [facility] 6720 ([facility]) (test code = [facility], 1538) 84674: Extension Work Instructor/Techni vanessa ID = [id number] for Sunni Castrejon POCT-GLUCOSE [id number] 11:25:55 Test Item Value Reference Range Interpretation Comments POC-GLUCOSE METER 181 mg/dL 70-110 H : Notified RN/MD: ([facility]) (test code = TESTED AT [facility] 6720 1538) [facility], [address]: Extension Work Instructor/Techni vanessa ID = [id number] for Zuly dunlap (contract)Raffy POCT-GLUCOSE [id number] 11:04:29 Test Item Value Reference Range Interpretation Comments POC-GLUCOSE METER 29 mg/dL 70-110 LL : Notified RN/MD: TESTED ([facility]) (test code = AT [facility] 6720 [facility] 1538) [facility], 770 30: Extension Work Instructor/Techni vanessa ID = [id number] for Wilton alfonso Sunni RAD, ABDOMEN, 2 [id number] 09:13:00AP and lateralReason for exam:- >pacemaker [facility] : 1990 Sex: FFINAL REPORT RAD, ABDOMEN, 2 VIEWS CLINICAL INDICATION: pacemaker evaluation COMPARISON: 05/28/2021 TECHNIQUE: Single, frontal radiograph of the abdomen. FINDINGS:Generator with abandoned leads overlies the left mid abdomen. The bowel gas pattern is nonspecific, but nonobstructive. Large stool burden. Correlation for constipation is recommended. Evaluation for free air is limited by portable supine technique. Within these limitations, no free air is identified. Signed: Nancy Edge MDRdaynaort Verified Date/Time: 05/28/2021 09:13:49 Reading Location: [facility] Radiology Reading Room POCT-GLUCOSE METER 2021-05-28 06:21:54 Test Item Value Reference Range Interpretation Comments POC-GLUCOSE METER 96 mg/dL 70-110 : TESTED A T [facility] 6720 (BEAKER) (test code = [facility] [place], 1538) 265[address]: Extension Work Instructor/Techni vanessa ID = [id number] for Nguy en, Tram POCT-GLUCOSE [id number] 05:49:58 Test Item Value Reference Range Interpretation Comments POC-GLUCOSE METER 69 mg/dL 70-110 L : TESTED A T [facility] 6720 (BEAKER) (test code = [facility], 1538) 38891: Extension Work Instructor/Techni vanessa ID = [id number] for Nguy en, Tram RAD, ABDOMEN/KUB, 1 VIEW [id number] 04:20:00Reason for exam:->eval of gastric stimulator placement [facility] : 1990 Sex: FFINAL REPORT CLINICAL HISTORY: Evaluation of gastric stimulator placement COMPARISON: 08/06/2020 FINDINGS: 2 supine images of the abdomen are submitted. A stimulator generator overlyingthe left mid abdomen has its leads extending to the left upper quadrant, with the leads terminating over the gastric bubble. The abdominal bowel gas pattern is normal. Surgical clips overlie the right upper quadrant. There is no acute bony abnormality. Signed: Angela James MDReport Verified Date/Time: 05/28/2021 04:20:10 SARS-COV2/RT-PCR ([facility])2021-05-28 03:25:38 Test Item Value Reference Range Interpretation Comments SARS-COV2/RT-PCR Negative Negative The SARS-Co V-2 target (test code = nucleic acids a re not 2564999) detected in thi s specimen. Negative result s do not preclude SARS-C oV-2 infection and s hould not be used as the mally e basis for patient managem ent decisions. Nega tive results must be combine d with clinical observ ations, patient history , and epidemiological information. A false negativ e result may occur if a spec imen is improperly dmitry ected, transported or handled. This SARS CoV-2 test is a rapid, real-time RT-PC R test intended for th e qualitative detection [...] Food, Drug and Cosmetic Act, 21 U.S.C. 360bbb-3(b)(1), unless the authorization is terminated or revoked sooner. Fact Sheet for Healthcare Providers: https://www.GoChongo.co m/Documents/Xpert%20Xpress%20SARS%20CoV-2/Fact%20Sheets/3023802%59EJYC-WDN-3%20 HEALTHCARE%20PROVIDERS%20FACT%20SHEET.pdf Fact Sheet for Healthcare Patients: https://www.GoChongo.ICS Mobile/Documents/Xpert%20Xp ress%20SARS%20CoV-2/Fact%20Sheets/3023801%34SQIM-GNI-3%20PATIENT%20FACT%20SHEET .pdfhCG, quantitative, [id number] 03:05:29 Test Item Value Reference Range Interpretation Comments hCG Quant (test code <1 See_Comment [Autom ated = 10308-4) message] The system which generated this result transmitted reference range : 0 - 10 mIU/mL. The reference range was not used to interpr et this result as normal/abnormal . [place]O (test code = [place]O) Non- Females: <10 mIU/mL Females: Gestation Age Reference Range(mIU/mL) 0.2-1 Week 5-50 1-2 Weeks 50-500 2-3 Weeks 100-5,000 3-4 Weeks 500-10,000 4-5 Weeks 1,000-50,000 5-6 Weeks 10,000-100,000 6-8 Weeks 15,000-200,000 2-3 Months 10,000-100,000 Extension Work Instructor ID - ASHOKAYA L Lab Interpretation Normal (test code = 02654-7) [facility], QUANTITATIVE, [id number] 03:05:29 Test Item Value Reference Range Interpretation Comments GONADOTROPIN, CHORIONIC (HCG) QUANT < mIU/mL 0-10 (BEAKER) (test code = 649) Non- Females: <10 mIU/mL Females: Gestation Age Reference Range(mIU/mL) 0.2-1 Week 5-50 1-2 Weeks 50-500 2-3 Weeks 100-5,000 3-4 Weeks 500-10,000 4-5 Weeks 1,000-50,000 5-6 Weeks 10,000-100,000 6-8 Weeks 15,000- 200,000 2-3 Months 10,000-100,000 Extension Work Instructor ID - PIAYA LBASIC METABOLIC PANEL 2021-05-28 02:45:30 Test Item Value Reference Range Interpretation [...] S NOT APPLICABLE FOR DIALYSIS PATIEN TS. Extension Work Instructor ID - KATRINA [facility] W/PLT COUNT & AUTO [id number] 02:34:45 Test Item Value Reference Range Interpretation [...] = 2801) UA RFLX MICR CULT IF [id number] 09:43:00 Test Item Value Reference Range Interpretation Comments UA COLOR (test code = COLU) RICHIE YEL/STRAW A UA APPEARANCE (test code = [...] Dysuria/FrequencySpecimen Description: CLEAN CATCH- XR ABD ACUTE [id number] 09:20:00 [facility] 1990 Sex: F FAX:Eva Barreto [phone] [place]: St: REG FAX: Fabienne Rosales MD [phone] Name: PAVEL FRANCO [facility] : 1990 Age/S: 30/F [address] [place] [address] Unit #: [id number] Loc: [place] [address] Phys: Fabienne Rivera MD Acct: [id number] Dis Date: Status: REG ER PHONE #: [phone] Exam Date: 0904 FAX #: [phone] Reason: acute abd pain EXAMS: CPT CODE: [id number] XR ABD ACUTE W/CHEST 57542 Flat and upright abdomen with single view chest 10/14/2020 HISTORY: Acute abdominal pain Comparison is made to CT 06/26/2019 FINDINGS: In the chest, the lungs are clear. Heart size and mediastinal vessels are normal. No free air under the hemidiaphragm is noted. In the abdomen, surgical clipsin the right upper quadrant are present. Battery pack overlying the left abdomen is noted. No acutebony abnormality is present. No dilated bowel loops are present. No air-fluid levels are identified. IMPRESSION: 1. No acute process within chest. 2. Nonobstructed bowel gas pattern. SL: [id number] at 0920 Reported and signedby: Timothy Alves M.D. CC: Eva Sanchez M.D.; Fabienne Rivera MD Technologist: Licha Taylor, RT(R); Annmarie Chung RT(R) Trnscrd Date/Time/By: 10/14/2020 (919) : By: [email or web address] Orig Print D/T: S: 10/14/2020 (3438) PAGE 1 Signed ReportBASIC METABOLIC [id number] 08:51:00 Test Item Value Reference Range Interpretation [...] 9.8 mg/dL 8.0-10.5 N CA) HEPATIC FUNCTION [id number] 08:51:00 Test Item Value Reference Range Interpretation [...] 66 IUnit/L 20-125 N code = ALKP) [id number] 08:51:00 Test Item Value Reference Range Interpretation Comments LIPASE (test code = LIP) 24 U/L 13-57 N [id number] 08:51:00 Test Item Value Reference Range Interpretation Comments MAGNESIUM (test code = MAG) 1.93 mg/dL 1.80-2.40 N HCG SERUM [id number] 08:51:00 Test Item Value Reference Range Interpretation Comments HCG SERUM QUAL (test code = SERUM NEGATIVE NEGATIVE HCGQL) BASIC METABOLIC [id number] 08:45:00 Test Item Value Reference Range Interpretation [...] code = CA) mg/dL 8.0-10.5 HEPATIC FUNCTION [id number] 08:45:00 Test Item Value Reference Range Interpretation Comments TOTAL PROTEIN (test code = PROT) g/dL 6.4-8.2 ALBUMIN (test code = ALB) g/dL 3.4-5.0 BILIRUBIN TOTAL (test code = BILT) mg/dL 0.0-1.0 BILIRUBIN DIRECT (test code = BILD) MG/DL 0.0-0.30 SGOT/AST (test code = AST) IUnit/L 15-37 SGPT/ALT (test code = ALT) IUnit/L 30-65 ALKALINE PHOSPHATASE TOTAL (test IUnit/L 20-125 code = ALKP) [id number] 08:45:00 Test Item Value Reference Range Interpretation Comments LIPASE (test code = LIP) U/L 13-57 [id number] 08:45:00 Test Item Value Reference Range Interpretation Comments MAGNESIUM (test code = MAG) mg/dL 1.80-2.40 HCG SERUM [id number] 08:45:00 Test Item Value Reference Range Interpretation Comments HCG SERUM QUAL (test code = SERUM NEGATIVE NEGATIVE HCGQL) CBC W/O [id number] 08:37:00 Test Item Value Reference Range Interpretation [...] code 10.5 fL 7.0-9.0 H = MPV) [id number] 08:24:00 Test Item Value Reference Range Interpretation Comments GLUBED (test code = 112 MG/DL 70-110 H Performe d by certified GLUBED) 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 [facility] CHEM [id number] 23:25:14 Test Item Value Reference Range Interpretation Comments Glucose Lvl (test code = Glucose Lvl) 327 70-99 [facility] [id number] 23:25:14 Test Item Value Reference Range Interpretation Comments BUN (test code = BUN) 15 7-[address]05-20 23:25:14 Test Item Value Reference Range Interpretation Comments Creatinine Lvl (test code = Creatinine 0.94 0.50-1.40 Lvl) [address]05-20 23:25:14 Test Item Value Reference Range Interpretation Comments Sodium Lvl (test code = Sodium Lvl) 132 135-[address]05-20 23:25:14 Test Item Value Reference Range Interpretation Comments Potassium Lvl (test code = Potassium 4.7 3.5-5.1 Lvl) [address]20 23:25:14 Test Item Value Reference Range Interpretation Comments Chloride Lvl (test code = Chloride Lvl) 97 95-[address]05-20 23:25:14 Test Item Value Reference Range Interpretation Comments CO2 (test code = CO2) 28 24-[address]20 23:25:14 Test Item Value Reference Range Interpretation Comments Calcium Lvl (test code = Calcium Lvl) 10.0 8.5-10.[address]20 23:25:14 Test Item Value Reference Range Interpretation Comments Total Protein (test code = Total 7.4 6.4-8.4 Protein) [address]20 23:25:14 Test Item Value Reference Range Interpretation Comments Albumin Lvl (test code = Albumin Lvl) 4.0 3.5-5.[address]05-20 23:25:14 Test Item Value Reference Range Interpretation Comments ALT (test code = ALT) 22 See_Comment [Auto mated message] The system which ge nerated this result transmit owen reference range : <=65. The reference range was not used to interpr et this result as fredi l/abnormal. [address]20 23:25:14 Test Item Value Reference Range Interpretation Comments AST (test code = AST) 15 See_Comment [Auto mated message] The system which ge nerated this result transmit owen reference range : <=37. The reference range was not used to interpr et this result as fredi l/abnormal. [address]20 23:25:14 Test Item Value Reference Range Interpretation Comments Alk Phos (test code = Alk Phos) 74 39-136 [place] [id number] 23:25:14 Test Item Value Reference Range Interpretation Comments Bili Total (test code = Bili Total) 0.7 0.2-1.3 [place] [id number] 23:25:14 Test Item Value Reference Range Interpretation Comments AGAP (test code = AGAP) 11.7 10.0-20.0 [place] 540541-05-20 23:25:14 Test Item Value Reference Range Interpretation Comments B/C Ratio (test code = B/C Ratio) 16 1 6-25 [place] 540541-05-20 23:25:14 Test Item Value Reference Range Interpretation Comments Globulin (test code = Globulin) 3.4 2.7-4.2 [place] 540541-05-20 23:25:14 Test Item Value Reference Range Interpretation Comments A/G Ratio (test code = A/G Ratio) 1.2 1 0.7-1.6 [place] 540541-05-20 23:25:14 Test Item Value Reference Range Interpretation Comments eGFR (test code = eGFR) 82 [place] 540541-05-20 23:25:14 Test Item Value Reference Range Interpretation Comments Magnesium Lvl (test code = Magnesium 1.9 1.8-2.4 Lvl) [place] 540541-05-20 23:25:14 Test Item Value Reference Range Interpretation Comments Phosphorus (test code = Phosphorus) 2.8 2.5-4.5 [place] 540541-05-20 23:25:14 Test Item Value Reference Range Interpretation Comments Lipase Lvl (test code = Lipase Lvl) 124 73-393 [facility] [id number] 23:25:14 Test Item Value Reference Range Interpretation Comments S Preg (test code = S Negative (10/04/20 6:25 Preg) PM) [place] 513331-05-20 22:29:00 Test Item Value Reference Range Interpretation Comments WBC (test code = WBC) 10.1 3.7-10.4 [place] 513331-05-20 22:29:00 Test Item Value Reference Range Interpretation Comments RBC (test code = RBC) 4.32 4.20-5.40 [facility] [id number] 22:29:00 Test Item Value Reference Range Interpretation Comments Hgb (test code = Hgb) 14.5 12.0-16.0 [place] 513331-05-20 22:29:00 Test Item Value Reference Range Interpretation Comments Hct (test code = Hct) 42.7 36.0-48.0 [facility] [id number] 22:29:00 Test Item Value Reference Range Interpretation Comments MCV (test code = MCV) 98.8 80.0-98.0 [facility] [id number] 22:29:00 Test Item Value Reference Range Interpretation Comments MCH (test code = MCH) 33.5 pg 27.0-31.0 [facility] [id number] 22:29:00 Test Item Value Reference Range Interpretation Comments MCHC (test code = MCHC) 33.9 32.0-36.0 [facility] [id number] 22:29:00 Test Item Value Reference Range Interpretation Comments RDW (test code = RDW) 12.9 11.5-14.5 [facility] [id number] 22:29:00 Test Item Value Reference Range Interpretation Comments Platelet (test code = Platelet) 243 133-450 [facility] [id number] 22:29:00 Test Item Value Reference Range Interpretation Comments MPV (test code = MPV) 9.0 7.4-10.4 [facility] [id number] 22:29:00 Test Item Value Reference Range Interpretation Comments RBC Morph (test code = Normal (10/04/20 5:29 RBC Morph) PM) [facility] [id number] 22:29:00 Test Item Value Reference Range Interpretation Comments Plt Morph (test code = See Note 1(10/04/20 Plt Morph) 5:29 PM) [facility] [id number] 22:29:00 Test Item Value Reference Range Interpretation Comments Segs (test code = Segs) 61.3 45.0-75.0 [facility] [id number] 22:29:00 Test Item Value Reference Range Interpretation Comments Lymphocytes (test code = Lymphocytes) 26.2 20.0-40.0 [place] 513331-05-20 22:29:00 Test Item Value Reference Range Interpretation Comments Monocytes (test code = Monocytes) 7.6 2.0-12.0 [place] 513331-05-20 22:29:00 Test Item Value Reference Range Interpretation Comments Eosinophils (test code = 4.3 See_Comment [A utomated message] The Eosinophils) system which ge nerated this result tra nsmitted reference range : <=4.0. The reference r jase was not used to int erpret this result as normal/abnormal . [place] [address]-05-20 22:29:00 Test Item Value Reference Range Interpretation Comments Basophils (test code = 0.6 See_Comment [Aut omated message] The Basophils) system which ge nerated this result tra nsmitted reference range : <=1.0. The reference r jase was not used to int erpret this result as normal/abnormal . [place] 513331-05-20 22:29:00 Test Item Value Reference Range Interpretation Comments Neutrophils # (test code = Neutrophils 6.2 1.5-8.1 #) [place] 513331-05-20 22:29:00 Test Item Value Reference Range Interpretation Comments Lymphocytes # (test code = Lymphocytes 2.7 1.0-5.5 #) [place] [address]-05-20 22:29:00 Test Item Value Reference Range Interpretation Comments Monocytes # (test code 0.8 See_Comment [Aut omated message] The = Monocytes #) system which generated this result tra nsmitted reference range : <=0.8. The reference r jase was not used to int erpret this result as normal/abnormal . [place] 513331-05-20 22:29:00 Test Item Value Reference Range Interpretation Comments Eosinophils # (test code 0.4 See_Comment [A utomated message] The = Eosinophils #) system whic h generated this result tra nsmitted reference range : <=0.5. The reference r jase was not used to int erpret this result as normal/abnormal . [place] 513331-05-20 22:29:00 Test Item Value Reference Range Interpretation Comments Basophils # (test code 0.1 See_Comment [Aut omated message] The = Basophils #) system which generated this result tra nsmitted reference range : <=0.2. The reference r jase was not used to int erpret this result as normal/abnormal . [place] 540541-05-09 21:37:00 Test Item Value Reference Range Interpretation Comments Glucose Lvl (test code = Glucose Lvl) 107 70-99 [place] 540541-05-09 21:37:00 Test Item Value Reference Range Interpretation Comments BUN (test code = BUN) 8 7-22 [place] [address]-05-09 21:37:00 Test Item Value Reference Range Interpretation Comments Creatinine Lvl (test code = Creatinine 0.88 0.50-1.40 Lvl) [place] 540541-05-09 21:37:00 Test Item Value Reference Range Interpretation Comments Sodium Lvl (test code = Sodium Lvl) 140 135-145 [place] 540541-05-09 21:37:00 Test Item Value Reference Range Interpretation Comments Potassium Lvl (test code = Potassium 3.7 3.5-5.1 Lvl) [place] 540541-05-09 21:37:00 Test Item Value Reference Range Interpretation Comments Chloride Lvl (test code = Chloride Lvl) 102 95-109 [place] 540541-05-09 21:37:00 Test Item Value Reference Range Interpretation Comments CO2 (test code = CO2) 29 24-32 [place] 540541-05-09 21:37:00 Test Item Value Reference Range Interpretation Comments Calcium Lvl (test code = Calcium Lvl) 9.5 8.5-10.5 [place] 540541-05-09 21:37:00 Test Item Value Reference Range Interpretation Comments Total Protein (test code = Total 7.8 6.4-8.4 Protein) [place] 540541-05-09 21:37:00 Test Item Value Reference Range Interpretation Comments Albumin Lvl (test code = Albumin Lvl) 4.1 3.5-5.0 [place] [address]-05-09 21:37:00 Test Item Value Reference Range Interpretation Comments ALT (test code = ALT) 21 See_Comment [Auto mated message] The system which ge nerated this result transmit owen reference range : <=65. The reference range was not used to interpr et this result as fredi l/abnormal. [place] 540541-05-09 21:37:00 Test Item Value Reference Range Interpretation Comments AST (test code = AST) 16 See_Comment [Auto mated message] The system which ge nerated this result transmit owen reference range : <=37. The reference range was not used to interpr et this result as fredi l/abnormal. [place] 540541-05-09 21:37:00 Test Item Value Reference Range Interpretation Comments Alk Phos (test code = Alk Phos) 78 39-136 [place] 540541-05-09 21:37:00 Test Item Value Reference Range Interpretation Comments Bili Total (test code = Bili Total) 0.6 0.2-1.3 [place] 540541-05-09 21:37:00 Test Item Value Reference Range Interpretation Comments AGAP (test code = AGAP) 12.7 10.0-20.0 [place] 540541-05-09 21:37:00 Test Item Value Reference Range Interpretation Comments B/C Ratio (test code = B/C Ratio) 9 1 6-25 [place] [address]-05-09 21:37:00 Test Item Value Reference Range Interpretation Comments Globulin (test code = Globulin) 3.7 2.7-4.2 [place] 540541-05-09 21:37:00 Test Item Value Reference Range Interpretation Comments A/G Ratio (test code = A/G Ratio) 1.1 1 0.7-1.6 [place] 540541-05-09 21:37:00 Test Item Value Reference Range Interpretation Comments eGFR (test code = eGFR) 88 [place] 540541-05-09 21:37:00 Test Item Value Reference Range Interpretation Comments Lipase Lvl (test code = Lipase Lvl) 91 73-393 [id number] 21:37:00 Test Item Value Reference Range Interpretation Comments WBC (test code = WBC) 9.8 3.7-10.4 [place] 513331-05-09 21:37:00 Test Item Value Reference Range Interpretation Comments RBC (test code = RBC) 4.45 4.20-5.40 [place] 513331-05-09 21:37:00 Test Item Value Reference Range Interpretation Comments Hgb (test code = Hgb) 14.8 12.0-16.0 [place] 513331-05-09 21:37:00 Test Item Value Reference Range Interpretation Comments Hct (test code = Hct) 43.6 36.0-48.0 [place] 513331-05-09 21:37:00 Test Item Value Reference Range Interpretation Comments MCV (test code = MCV) 98.0 80.0-98.0 [place] 513331-05-09 21:37:00 Test Item Value Reference Range Interpretation Comments MCH (test code = MCH) 33.3 pg 27.0-31.0 [place] 513331-05-09 21:37:00 Test Item Value Reference Range Interpretation Comments MCHC (test code = MCHC) 34.0 32.0-36.0 [facility] [id number] 21:37:00 Test Item Value Reference Range Interpretation Comments RDW (test code = RDW) 13.0 11.5-14.5 [place] 513331-05-09 21:37:00 Test Item Value Reference Range Interpretation Comments Platelet (test code = Platelet) 291 133-450 [facility] I[id number] 21:37:00 Test Item Value Reference Range Interpretation Comments MPV (test code = MPV) 8.5 7.4-10.4 [place] 513331-05-09 21:37:00 Test Item Value Reference Range Interpretation Comments Segs (test code = Segs) 59.5 45.0-75.0 [place] 513331-05-09 21:37:00 Test Item Value Reference Range Interpretation Comments Lymphocytes (test code = Lymphocytes) 27.5 20.0-40.0 [place] 513331-05-09 21:37:00 Test Item Value Reference Range Interpretation Comments Monocytes (test code = Monocytes) 8.6 2.0-12.0 [place] 513331-05-09 21:37:00 Test Item Value Reference Range Interpretation Comments Eosinophils (test code = 3.5 See_Comment [A utomated message] The Eosinophils) system which ge nerated this result tra nsmitted reference range : <=4.0. The reference r jase was not used to int erpret this result as normal/abnormal . [facility] [id number] 21:37:00 Test Item Value Reference Range Interpretation Comments Basophils (test code = 1.0 See_Comment [Aut omated message] The Basophils) system which ge nerated this result tra nsmitted reference range : <=1.0. The reference r jase was not used to int erpret this result as normal/abnormal . [facility] [id number] 21:37:00 Test Item Value Reference Range Interpretation Comments Neutrophils # (test code = Neutrophils 5.8 1.5-8.1 #) [facility] [id number] 21:37:00 Test Item Value Reference Range Interpretation Comments Lymphocytes # (test code = Lymphocytes 2.7 1.0-5.5 #) [facility] [id number] 21:37:00 Test Item Value Reference Range Interpretation Comments Monocytes # (test code 0.8 See_Comment [Aut omated message] The = Monocytes #) system which generated this result tra nsmitted reference range : <=0.8. The reference r jase was not used to int erpret this result as normal/abnormal . [facility] [id number] 21:37:00 Test Item Value Reference Range Interpretation Comments Eosinophils # (test code 0.3 See_Comment [A utomated message] The = Eosinophils #) system whic h generated this result tra nsmitted reference range : <=0.5. The reference r jase was not used to int erpret this result as normal/abnormal . [facility] [id number] 21:37:00 Test Item Value Reference Range Interpretation Comments Basophils # (test code 0.1 See_Comment [Aut omated message] The = Basophils #) system which generated this result tra nsmitted reference range : <=0.2. The reference r jase was not used to int erpret this result as normal/abnormal . [facility] [place]2021-05-09 21:37:00 Test Item Value Reference Range Interpretation Comments UA Color (test code = Yellow *NA*(09/23/20 4:37 UA Color) PM) [facility] AND [id number] 21:37:00 Test Item Value Reference Range Interpretation Comments UA Turbidity (test code = Clear (09/23/20 4:37 UA Turbidity) PM) [facility] AND [id number] 21:37:00 Test Item Value Reference Range Interpretation Comments UA Spec Grav (test code = UA Spec 1.015 1 Grav) [facility] AND [id number] 21:37:00 Test Item Value Reference Range Interpretation Comments UA pH (test code = UA pH) 7.5 1 5.0-8.0 [facility] AND [id number] 21:37:00 Test Item Value Reference Range Interpretation Comments UA Protein (test code = UA Negative mg/dL Protein) [facility] AND [id number] 21:37:00 Test Item Value Reference Range Interpretation Comments UA Glucose (test code = UA Negative mg/dL Glucose) [facility] AND [id number] 21:37:00 Test Item Value Reference Range Interpretation Comments UA Ketones (test code = UA Trace mg/dL Ketones) [facility] AND [id number] 21:37:00 Test Item Value Reference Range Interpretation Comments UA Bili (test code = Negative *NA*(09/23/20 UA Bili) 4:37 PM) [facility] AND [id number] 21:37:00 Test Item Value Reference Range Interpretation Comments UA Blood (test code = Negative (09/23/20 4:37 UA Blood) PM) [facility] AND [id number] 21:37:00 Test Item Value Reference Range Interpretation Comments UA Urobilinogen (test code = UA 0.2 0.1-1.0 Urobilinogen) [facility] AND [id number] 21:37:00 Test Item Value Reference Range Interpretation Comments UA Nitrite (test code Negative (09/23/20 4:37 = UA Nitrite) PM) [facility] AND [id number] 21:37:00 Test Item Value Reference Range Interpretation Comments UA Leuk Est (test Negative (09/23/20 4:37 code = UA Leuk Est) PM) [facility] AND [id number] 21:37:00 Test Item Value Reference Range Interpretation Comments UA Sq Epi (test code = UA Sq Occasional /LPF Epi) [facility] [id number] 21:37:00 Test Item Value Reference Range Interpretation Comments UA WBC (test code = UA None Seen (09/23/20 4:37 WBC) PM) [facility] [id number] 21:37:00 Test Item Value Reference Range Interpretation Comments UA RBC (test code = UA RBC) 0-2 /HPF [facility] [id number] 21:37:00 Test Item Value Reference Range Interpretation Comments UA Bacteria (test code = None Seen (09/23/20 UA Bacteria) 4:37 PM) [facility] [id number] 21:37:00 Test Item Value Reference Range Interpretation Comments U Preg (test code = U Negative (09/23/20 4:37 Preg) PM) Blanca Gonzalez, ABDOMEN/KUB, 1 VIEW [id number] 15:46:00Reason for exam:- >Leads positioning in stomach [facility] : 1990 Sex: FFINAL REPORT CLINICAL HISTORY: Leads positioning in stomach TECHNIQUE: Supine abdomen COMPARISON: None IMPRESSION: A generator device projects over the left hemiabdomen with short leads projecting in the left mid abdomen. There are right upper quadrant surgical clips. The bowel gas pattern is nonspecific. Free air and air-fluid levels are not definitively seen, but also cannot be excluded on the supine view. Signed: Zuleika Tran MDReport Verified Date/Time: 08/06/2020 15:46:53 Reading Location: [facility] Radiology Reading Room POCT- GLUCOSE [id number] 11:09:00 Test Item Value Reference Range Interpretation Comments POC-GLUCOSE METER 269 mg/dL 70-110 H : TESTED A T [facility] 6720 (BEAKER) (test code = ABEBE [facility], 1538) 57878: Extension Work Instructor/Techni vanessa ID = [id number] for JENIFER JIN POCT-GLUCOSE [id number] 09:16:00 Test Item Value Reference Range Interpretation Comments POC-GLUCOSE METER 220 mg/dL 70-110 H : TESTED A T [facility] 6720 (BEAKER) (test code KENY [facility], = 1538) 52910: Extension Work Instructor/Techni vanessa ID = [id number] for KEENAN MORALEZ BASIC METABOLIC [id number] 08:28:00 Test Item Value Reference Range Interpretation [...] S NOT APPLICABLE FOR DIALYSIS PATIEN TS. Extension Work Instructor ID - DBCBC W/PLT COUNT & AUTO [id number] 08:02:00 Test Item Value Reference Range Interpretation [...] PERCENT (BEAKER) (test code = 2801) POCT-GLUCOSE [id number] 07:05:00 Test Item Value Reference Range Interpretation Comments POC-GLUCOSE METER 116 mg/dL 70-110 H : TESTED A T [facility] 6720 (BEAKER) (test code = [facility], 153) 35142: Extension Work Instructor/Techni vanessa ID = [id number] for Mehnaz Ross POCT-GLUCOSE [id number] 06:46:00 Test Item Value Reference Range Interpretation Comments POC-GLUCOSE METER 30 mg/dL 70-110 LL : TESTED A T [facility] 6720 [facility] (test code = [facility], 153) 41657: Extension Work Instructor/Techni vanessa ID = [id number] for CHAUNCEY WINTER POCT-GLUCOSE [id number] 06:37:00 Test Item Value Reference Range Interpretation Comments POC-GLUCOSE METER 35 mg/dL 70-110 LL : Verify w / Lab Draw: ([facility]) (test code = Will R epeat Test: TESTED 1537) AT [facility] [address] B [facility], 770 30: Extension Work Instructor/Techni vanessa ID = [id number] for CHAUNCEY WINTER SARS-COV2/RT-PCR ([facility])2020-08-04 02:30:00 Test Item Value Reference Range Interpretation Comments SARS-COV2/RT-PCR (test Negative Not Detected, Negative, code = 9901398) See external report for linked test SARS-COV-2 PERFORMING LAB [facility] (test code = 7347826) Negative result for this test determines that SARS-CoV-2 RNA was not present in the specimen above the Limit of Detection (LOD). However, Negative results do not preclude SARS-CoV-2 infection and should not be used as the sole basis for treatment or patient management decisions. Negative results must be combined with clinical observations, patient history, and [...] swab specimen collected from individuals suspected of COVID-19 by their healthcare provider.This test [...] justifying the authorization of the emergency use ofin vitro diagnostic tests for detection and/or diagnosis of COVID-19 is terminated under Section 564(b)(2) of the Act or the EUA is revoked under Section 564(g) of the Act.Testing was performed using the Cheng SARS-CoV-2 assay.Fact Sheet for Healthcare Providers:https://www.[employer]/navdeep/RT_SAR M-OeR-4_PES_Jdpb_Zzkak_40-147678.pdfFact Sheet for Healthcare Patients:https://www.[employer]/s al/CY_MKWS-KqX-7_Qcotlvj_Hdvc_Yjtkz_DU_68-784372T1.pdfPerforming Laboratory:[place] [address] [place] [address] MISCELLANEOUS LAB [id number] 08:19:00 Test Item Value Reference Range Interpretation Comments SCAN RESULT (test code = 7670288) POCT-GLUCOSE [id number] 07:49:00 Test Item Value Reference Range Interpretation Comments POC-GLUCOSE METER 104 mg/dL 70-110 : TESTED A T [facility] 6720 (BEAKER) (test code = PROMISENEIDA Meeks [facility], 1538) 00125: Extension Work Instructor/Techni vanessa ID = [id number] for BEVERLY BRANDON [id number] 05:21:00 Test Item Value Reference Range Interpretation Comments MAGNESIUM (BEAKER) 2.2 mg/dL 1.6-2.6 Specimen moderately (test code = 627) hemolyzed Extension Work Instructor ID - [id number] 05:21:00 Test Item Value Reference Range Interpretation Comments PHOSPHORUS (BEAKER) 3.6 mg/dL 2.3-4.7 Specimen moderately (test code = 604) hemolyzed Extension Work Instructor ID - EDASIBASIC METABOLIC [id number] 05:21:00 Test Item Value Reference Range Interpretation [...] S NOT APPLICABLE FOR DIALYSIS PATIEN TS. Extension Work Instructor ID - EDASIPOCT-GLUCOSE [id number] 04:31:00 Test Item Value Reference Range Interpretation Comments POC-GLUCOSE METER 110 mg/dL 70-110 : TESTED A T [facility] 6720 (BEAKER) (test code = [facility], 1538) 23552: Extension Work Instructor/Techni vanessa ID = [id number] for Ma rtin, Sheley - Liss POCT-GLUCOSE [id number] 00:39:00 Test Item Value Reference Range Interpretation Comments POC-GLUCOSE METER 122 mg/dL 70-110 H : TESTED A T [facility] 6720 (BEAKER) (test code = [facility], 1538) 20249: Extension Work Instructor/Techni vanessa ID = [id number] for Ma rtin, Sheley - Liss POCT-GLUCOSE [id number] 22:23:00 Test Item Value Reference Range Interpretation Comments POC-GLUCOSE METER 103 mg/dL 70-110 : TESTED A T [facility] 6720 (BEAKER) (test code = [facility], 1538) 91418: Extension Work Instructor/Techni vanessa ID = [id number] for Ma rtin, Sheley - Liss [id number] 22:06:00 Test Item Value Reference Range Interpretation Comments MAGNESIUM (BEAKER) 1.7 mg/dL 1.6-2.6 Specimen slightly (test code = 627) hemolyzed Extension Work Instructor ID - [id number] 22:06:00 Test Item Value Reference Range Interpretation Comments PHOSPHORUS (BEAKER) 2.0 mg/dL 2.3-4.7 L Specimen slightly (test code = 604) hemolyzed Extension Work Instructor ID - DBBASIC METABOLIC [id number] 22:06:00 Test Item Value Reference Range Interpretation [...] S NOT APPLICABLE FOR DIALYSIS PATIEN TS. Extension Work Instructor ID - DBURINALYSIS W/ REFLEX URINE [id number] 21:26:00 Test Item Value Reference Range Interpretation [...] code = 516) SOURCE(BEAKER) (test code = 7275) Extension Work Instructor ID - [auto]Extension Work Instructor ID - techPOCT-GLUCOSE [id number] 20:37:00 Test Item Value Reference Range Interpretation Comments POC-GLUCOSE METER 98 mg/dL 70-110 : TESTED A T [facility] 6720 (BEAKER) (test code = [place], 1538) 70058: Extension Work Instructor/Techni vanessa ID = [id number] for Flo thomasEmilykole Bairon Morejonle CBC (HEMOGRAM ONLY)2020-05-24 18:45:00 Test Item Value [...] (BEAKER) (test code = 413) BLOOD GAS, [id number] 18:40:00 Test Item Value Reference Range Interpretation [...] (BEAKER) (test code = 1819) 21.0 POCT-GLUCOSE [id number] 18:37:00 Test Item Value Reference Range Interpretation Comments POC-GLUCOSE METER 113 mg/dL 70-110 H : [facility] 6720 [facility] (test code = [facility], 153) 40895: Extension Work Instructor/Techni vanessa ID = [id number] for NG JAMILAHSusy PRITCHARD-TRAM POCT-GLUCOSE [id number] 16:28:00 Test Item Value Reference Range Interpretation Comments POC-GLUCOSE METER 207 mg/dL 70-110 H : TESTED A T [facility] 6720 (BEAKER) (test code = [facility], 153) 13619: Extension Work Instructor/Techni vanessa ID = [id number] for FE LDER, MARIA ALEJANDRA KETONE, [id number] 14:16:00 Test Item Value Reference Range Interpretation Comments KETONES, BLOOD (BEAKER) (test code 3.0 mmol/L <0.4 H = 1103) POCT-GLUCOSE [id number] 11:52:00 Test Item Value Reference Range Interpretation Comments POC-GLUCOSE METER 294 mg/dL 70-110 H : Notified RN/MD: ([facility]) (test code = TESTED AT [facility] 6720 1538) [facility], [address]: Extension Work Instructor/Techni vanessa ID = [id number] for MARIA ALEJANDRA GALLEGO POCT-GLUCOSE [id number] 09:44:00 Test Item Value Reference Range Interpretation Comments POC-GLUCOSE METER 328 mg/dL 70-110 H : TESTED A T [facility] 6720 ([facility]) (test code = [facility], 1538) 06787: Extension Work Instructor/Techni vanessa ID = [id number] for Richie Coffey BASIC METABOLIC [id number] 05:27:00 Test Item Value Reference Range Interpretation [...] S NOT APPLICABLE FOR DIALYSIS PATIEN TS. Extension Work Instructor ID - KATRINA MCBC, w/diff, plateletsBasic Metabolic Panel (BMPNL)POD#1:CBC, w/diff, plateletsComprehensive Metabolic PanelPOCT-GLUCOSE [id number] 04:41:00 Test Item Value Reference Range Interpretation Comments POC-GLUCOSE METER 223 mg/dL 70-110 H : [facility]) (test code = [facility], 1538) 18194: Extension Work Instructor/Techni vanessa ID = [id number] for GILDARDO DENNISON POCT-GLUCOSE [id number] 01:30:00 Test Item Value Reference Range Interpretation Comments POC-GLUCOSE METER 258 mg/dL 70-110 H : TESTED A T [facility] 6720 (BEAKER) (test code = [facility], 1538) 39900: Extension Work Instructor/Techni vanessa ID = [id number] for GILDARDO DENNISON POCT-GLUCOSE [id number] 23:15:00 Test Item Value Reference Range Interpretation Comments POC-GLUCOSE METER 332 mg/dL 70-110 H : TESTED A T [facility] 6720 (BEAKER) (test code = [facility], 1538) 36837: Extension Work Instructor/Techni vanessa ID = [id number] for Laura Gudino CBC W/PLT COUNT & AUTO [id number] 21:48:00 Test Item Value Reference Range Interpretation [...] PERCENT (BEAKER) (test code = 2801) POCT-GLUCOSE [id number] 21:30:00 Test Item Value Reference Range Interpretation Comments POC-GLUCOSE METER 354 mg/dL 70-110 H : TESTED A T [facility] 6720 (BEAKER) (test code = [facility], 153) 47922: Extension Work Instructor/Techni vanessa ID = [id number] for JUSTYN CORBIN POCT-GLUCOSE [id number] 14:13:00 Test Item Value Reference Range Interpretation Comments POC-GLUCOSE METER 130 mg/dL 70-110 H : TESTED A T [facility] 6720 (BEAKER) (test code = [facility], 1538) 74135: Extension Work Instructor/Techni vanessa ID = [id number] for BEATIRCE FARMER POCT-GLUCOSE [id number] 13:41:00 Test Item Value Reference Range Interpretation Comments POC-GLUCOSE METER 66 mg/dL 70-110 L : TESTED A T [facility] 6720 (BEAKER) (test code = [facility], 1538) 95764: Extension Work Instructor/Techni vanessa ID = [id number] for BEATRICE ARDON POCT-GLUCOSE [id number] 13:12:00 Test Item Value Reference Range Interpretation Comments POC-GLUCOSE METER 39 mg/dL 70-110 LL : Notified RN/MD: TESTED (BEAKER) (test code = AT [facility] 6720 [facility] 1538) [facility], 770 30: Extension Work Instructor/Techni vanessa ID = [id number] for WATS ONJAIME [id number] 11:43:00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 Interpretation Comments Basophils # (test code 0.1 See_Comment [Aut omated message] The = Basophils #) system which generated this result tra nsmitted reference range : <=0.2. The reference r jase was not used to int erpret this result as normal/abnormal . [facility] IrvingRrslekpEQQRCXIWVO9145-33-28 06:44:00 Test Item Value Reference Range Interpretation Comments Hgb (test code = Hgb) 14.5 12.0-16.0 [facility] IrvingZhzuwbdUXMKGSSJVN9204-43-71 06:44:00 Test Item Value Reference Range Interpretation Comments RBC (test code = RBC) 4.20 4.20-5.40 [facility] IrvingNaiwsqiJELUMGSNHX8470-93-16 06:44:00 Test Item Value Reference Range Interpretation Comments Hct (test code = Hct) 41.2 36.0-48.0 [facility] IrvingOpaqhhnVBMMIRPEES5582-05-20 06:44:00 Test Item Value Reference Range Interpretation Comments WBC (test code = WBC) 8.5 3.7-10.4 [facility] IrvingXrckobxMUCYKZSNRF5400-80-23 06:44:00 Test Item Value Reference Range Interpretation Comments RDW (test code = RDW) 12.8 11.5-14.5 [facility] IrvingTytunuyASYDHCIRRX3835-85-52 06:44:00 Test Item Value Reference Range Interpretation Comments Platelet (test code = Platelet) 303 133-450 [facility] IrvingUsbyflfLJYROVQFBY8091-30-79 06:44:00 Test Item Value Reference Range Interpretation Comments MPV (test code = MPV) 8.5 7.4-10.4 [facility] IrvingMbjheamXAOANMGYJK6488-61-57 06:44:00 Test Item Value Reference Range Interpretation Comments MCHC (test code = MCHC) 35.2 32.0-36.0 [facility] IrvingHubcnzkBDLLUZFXXW4661-17-37 06:44:00 Test Item Value Reference Range Interpretation Comments MCH (test code = MCH) 34.5 pg 27.0-31.0 [facility] IrvingZdzyaibDTRVDYLXBL7108-34-06 06:44:00 Test Item Value Reference Range Interpretation Comments MCV (test code = MCV) 98.1 80.0-98.0 [facility] IrvingViayfgiMJEYSVDZVD6886-17-34 06:44:00 Test Item Value Reference Range Interpretation Comments PT (test code = PT) 12.8 s 12.0-14.7 [facility] IrvingUtevnmpFIJYOPHSSP3518-59-81 06:44:00 Test Item Value Reference Range Interpretation Comments INR (test code = INR) 0.98 1 0.85-1.17 [facility] IrvingTqdiqtbZXZFLLDMEO5520-41-32 06:44:00 Test Item Value Reference Range Interpretation Comments PTT (test code = PTT) 25.3 s 22.9-35.8 [facility] AND [id number] 06:44:00 Test Item Value Reference Range Interpretation Comments UA Leuk Est (test Negative (12/18/18 1:44 code = UA Leuk Est) AM) [facility] AND [id number] 06:44:00 Test Item Value Reference Range Interpretation Comments UA Sq Epi (test code = UA Sq Occasional /LPF Epi) [facility] AND [id number] 06:44:00 Test Item Value Reference Range Interpretation Comments UA Blood (test code = Negative (12/18/18 1:44 UA Blood) AM) [facility] AND [id number] 06:44:00 Test Item Value Reference Range Interpretation Comments UA Nitrite (test code Negative (12/18/18 1:44 = UA Nitrite) AM) [facility] AND [id number] 06:44:00 Test Item Value Reference Range Interpretation Comments UA WBC (test code = no gt See_Comment [Automa owen message] The UA WBC) system which ge nerated this result transmit owen reference range : <=5. The reference range was not used to interpr et this result as fredi l/abnormal. [facility] AND [id number] 06:44:00 Test Item Value Reference Range Interpretation Comments UA Urobilinogen (test code = UA <=1.0 mg/dL 0.1-1.0 Urobilinogen) [facility] AND [id number] 06:44:00 Test Item Value Reference Range Interpretation Comments UA Protein (test code = UA Negative mg/dL Protein) [facility] AND [id number] 06:44:00 Test Item Value Reference Range Interpretation Comments UA Glucose (test code = UA Glucose) 500 mg/dL [facility] AND [id number] 06:44:00 Test Item Value Reference Range Interpretation Comments UA pH (test code = UA pH) 7.0 1 5.0-8.0 [facility] AND [id number] 06:44:00 Test Item Value Reference Range Interpretation Comments UA Bili (test code = Negative *NA*(12/18/18 UA Bili) 1:44 AM) [facility] AND [id number] 06:44:00 Test Item Value Reference Range Interpretation Comments UA Ketones (test code = UA Negative mg/dL Ketones) [facility] AND [id number] 06:44:00 Test Item Value Reference Range Interpretation Comments UA Color (test code = Colorless *NA*(12/18/18 UA Color) 1:44 AM) [facility] AND [id number] 06:44:00 Test Item Value Reference Range Interpretation Comments UA Turbidity (test code = Clear (12/18/18 1:44 UA Turbidity) AM) [facility] AND [id number] 06:44:00 Test Item Value Reference Range Interpretation Comments UA Spec Grav (test code = UA Spec 1.003 1 Grav) [facility] [employer]orgCARI[employer]C TechnologiesAC [id number] 07:25:00 Test Item Value Reference Range Interpretation Comments Total CK (test code = Total CK) 70 12-191 [facility] [place] [id number] 07:25:00 Test Item Value Reference Range Interpretation Comments CK MB (test code = CK MB) no gt 0.5-3.6 [facility] [place] [id number] 07:25:00 Test Item Value Reference Range Interpretation Comments Troponin-I (test code no gt See_Comment [Auto mated message] The = Troponin-I) system which g enerated this result transmit owen reference range : <=0.40. The reference r jase was not used to interpr et this result as fredi l/abnormal. [facility] [employer] [id number] 07:25:00 Test Item Value Reference Range Interpretation Comments Magnesium Lvl (test code = Magnesium 2.2 1.8-2.4 Lvl) [facility] [employer] [id number] 07:25:00 Test Item Value Reference Range Interpretation Comments Ketone Quantitative (test code = Ketone 0.32 Quantitative) [facility] [employer] [id number] 07:25:00 Test Item Value Reference Range Interpretation Comments B/C Ratio (test code = B/C Ratio) 10 1 6-25 [facility] [employer] [id number] 07:25:00 Test Item Value Reference Range Interpretation Comments Total Protein (test code = Total 7.2 6.4-8.4 Protein) [facility] [employer] [id number] 07:25:00 Test Item Value Reference Range Interpretation Comments eGFR (test code = eGFR) 81 [facility]2019-05-28 07:25:00 Test Item Value Reference Range Interpretation Comments A/G Ratio (test code = A/G Ratio) 1.1 1 0.7-1.6 [facility]2019-05-28 07:25:00 Test Item Value Reference Range Interpretation Comments Globulin (test code = Globulin) 3.4 2.7-4.2 [facility]2019-05-28 07:25:00 Test Item Value Reference Range Interpretation Comments Albumin Lvl (test code = Albumin Lvl) 3.8 3.5-5.0 [place] [id number] 07:25:00 Test Item Value Reference Range Interpretation Comments Alk Phos (test code = Alk Phos) 91 39-136 [facility]2019-05-28 07:25:00 Test Item Value Reference Range Interpretation Comments ALT (test code = ALT) 21 See_Comment [Auto mated message] The system which ge nerated this result transmit owen reference range : <=65. The reference range was not used to interpr et this result as fredi l/abnormal. [facility]2019-05-28 07:25:00 Test Item Value Reference Range Interpretation Comments Bili Total (test code = Bili Total) 0.4 0.2-1.3 [facility]2019-05-28 07:25:00 Test Item Value Reference Range Interpretation Comments AST (test code = AST) 12 See_Comment [Auto mated message] The system which ge nerated this result transmit owen reference range : <=37. The reference range was not used to interpr et this result as fredi l/abnormal. [facility]2019-05-28 07:25:00 Test Item Value Reference Range Interpretation Comments Glucose Lvl (test code = Glucose Lvl) 557 70-99 [facility]2019-05-28 07:25:00 Test Item Value Reference Range Interpretation Comments Chloride Lvl (test code = Chloride Lvl) 100 95-109 [facility]2019-05-28 07:25:00 Test Item Value Reference Range Interpretation Comments AGAP (test code = AGAP) 14.7 10.0-20.0 [facility]2019-05-28 07:25:00 Test Item Value Reference Range Interpretation Comments Calcium Lvl (test code = Calcium Lvl) 8.9 8.5-10.5 [facility]2019-05-28 07:25:00 Test Item Value Reference Range Interpretation Comments CO2 (test code = CO2) 21 -32 [facility]2019-05-28 07:25:00 Test Item Value Reference Range Interpretation Comments Sodium Lvl (test code = Sodium Lvl) 131 135-145 [facility]2019-05-28 07:25:00 Test Item Value Reference Range Interpretation Comments BUN (test code = BUN) 10 - [facility]2019-05-28 07:25:00 Test Item Value Reference Range Interpretation Comments Creatinine Lvl (test code = Creatinine 0.96 0.50-1.40 Lvl) [facility]2019-05-28 07:25:00 Test Item Value Reference Range Interpretation Comments Potassium Lvl (test code = Potassium 4.7 3.5-5.1 Lvl) [facility]NxxeqfuOUAFFMQIJAFSV4508-90-42 07:25:00 Test Item Value Reference Range Interpretation Comments S Preg (test code = S Negative *NA*(10/12/18 Preg) 2:25 AM) [facility] IrvingLndggroAJKKJLBAFT4915-49-84 07:25:00 Test Item Value Reference Range Interpretation Comments MPV (test code = MPV) 8.9 7.4-10.4 [facility] IrvingDnzluboSMRCKGDUPJ0048-31-97 07:25:00 Test Item Value Reference Range Interpretation Comments RDW (test code = RDW) 12.4 11.5-14.5 [facility] IrvingWfckyjjHMPFTBVUZR0138-91-27 07:25:00 Test Item Value Reference Range Interpretation Comments Platelet (test code = Platelet) 270 133-450 [facility] IrvingXgryyzrIMRFKDDZKG2055-55-26 07:25:00 Test Item Value Reference Range Interpretation Comments MCHC (test code = MCHC) 33.6 32.0-36.0 [facility] IrvingPqtvwmbIMIIICQNPZ7385-18-58 07:25:00 Test Item Value Reference Range Interpretation Comments MCH (test code = MCH) 32.9 pg 27.0-31.0 [facility] IrvingTsrujchFKLZEUTAOX5282-35-02 07:25:00 Test Item Value Reference Range Interpretation Comments Hct (test code = Hct) 40.1 36.0-48.0 [facility] IrvingCwcgxdhNSRGFCBCUV3322-71-89 07:25:00 Test Item Value Reference Range Interpretation Comments MCV (test code = MCV) 97.8 80.0-98.0 [facility] IrvingInxviyzIYQFKZMWJM6471-22-13 07:25:00 Test Item Value Reference Range Interpretation Comments Hgb (test code = Hgb) 13.5 12.0-16.0 [facility] IrvingGtfnnsqLNQRVTFBJN2246-95-54 07:25:00 Test Item Value Reference Range Interpretation Comments WBC (test code = WBC) 6.4 3.7-10.4 [facility] IrvingQinohyuFLEFUIWPKP1323-24-15 07:25:00 Test Item Value Reference Range Interpretation Comments RBC (test code = RBC) 4.10 4.20-5.40 [facility] IrvingHjtmjccKZNQINCPJV7674-20-73 07:25:00 Test Item Value Reference Range Interpretation Comments Monocytes # (test code 0.4 See_Comment [Aut omated message] The = Monocytes #) system which generated this result tra nsmitted reference range : <=0.8. The reference r jase was not used to int erpret this result as normal/abnormal . [facility] IrvingZshslrhHTVWPUEKMV4509-82-06 07:25:00 Test Item Value Reference Range Interpretation Comments Eosinophils # (test code 0.5 See_Comment [A utomated message] The = Eosinophils #) system whic h generated this result tra nsmitted reference range : <=0.5. The reference r jase was not used to int erpret this result as normal/abnormal . [facility] IrvingLwdyfugECIPROTPST1716-83-52 07:25:00 Test Item Value Reference Range Interpretation Comments Lymphocytes # (test code = Lymphocytes 2.4 1.0-5.5 #) [facility] IrvingZeneeybZSXKSTRUUY6944-92-29 07:25:00 Test Item Value Reference Range Interpretation Comments Eosinophils (test code = 8.0 See_Comment [A utomated message] The Eosinophils) system which ge nerated this result tra nsmitted reference range : <=4.0. The reference r jase was not used to int erpret this result as normal/abnormal . [facility] [id number] 07:25:00 Test Item Value Reference Range Interpretation Comments Neutrophils # (test code = Neutrophils 3.0 1.5-8.1 #) [facility] IrvingDpeccixDYDZFXQHVW3917-46-12 07:25:00 Test Item Value Reference Range Interpretation Comments Basophils (test code = 0.5 See_Comment [Aut omated message] The Basophils) system which ge nerated this result tra nsmitted reference range : <=1.0. The reference r jase was not used to int erpret this result as normal/abnormal . [facility] IrvingWgielbnCHZKFGKKWD4020-88-37 07:25:00 Test Item Value Reference Range Interpretation Comments Monocytes (test code = Monocytes) 5.9 2.0-12.0 [facility] Irvi[id number] 07:25:00 Test Item Value Reference Range Interpretation Comments Segs (test code = Segs) 47.2 45.0-75.0 [facility] IrvingGvdfrcmOKWOXEAQOV8931-20-77 07:25:00 Test Item Value Reference Range Interpretation Comments Lymphocytes (test code = Lymphocytes) 38.4 20.0-40.0 [facility]2019-05-28 07:25:00 Test Item Value Reference Range Interpretation Comments UA WBC (test code = 4 See_Comment [Automa owen message] The UA WBC) system which ge nerated this result transmit owen reference range : <=5. The reference range was not used to interpr et this result as fredi l/abnormal. [facility] AND [id number] 07:25:00 Test Item Value Reference Range Interpretation Comments UA RBC (test code = 1 See_Comment [Automa owen message] The UA RBC) system which ge nerated this result transmit owen reference range : <=2. The reference range was not used to interpr et this result as fredi l/abnormal. [facility] AND [id number] 07:25:00 Test Item Value Reference Range Interpretation Comments UA Nitrite (test code Negative (10/12/18 2:25 = UA Nitrite) AM) [facility] AND [id number] 07:25:00 Test Item Value Reference Range Interpretation Comments UA Urobilinogen (test code = UA <=1.0 mg/dL 0.1-1.0 Urobilinogen) [facility] AND [id number] 07:25:00 Test Item Value Reference Range Interpretation Comments UA Sq Epi (test code = UA Sq Occasional /LPF Epi) [facility] AND [id number] 07:25:00 Test Item Value Reference Range Interpretation Comments UA Leuk Est (test Negative (10/12/18 2:25 code = UA Leuk Est) AM) [facility] AND [id number] 07:25:00 Test Item Value Reference Range Interpretation Comments UA Protein (test code Negative (10/12/18 2:25 = UA Protein) AM) [facility] AND [id number] 07:25:00 Test Item Value Reference Range Interpretation Comments UA Ketones (test code Negative *NA*(10/12/18 = UA Ketones) 2:25 AM) [facility] AND [id number] 07:25:00 Test Item Value Reference Range Interpretation Comments UA Glucose (test code = UA Glucose) 500 mg/dL [facility] [id number] 07:25:00 Test Item Value Reference Range Interpretation Comments UA Blood (test code = Negative (10/12/18 2:25 UA Blood) AM) [facility] AND [id number] 07:25:00 Test Item Value Reference Range Interpretation Comments UA Bili (test code = Negative *NA*(10/12/18 UA Bili) 2:25 AM) [facility] AND [id number] 07:25:00 Test Item Value Reference Range Interpretation Comments UA Color (test code = Colorless *NA*(10/12/18 UA Color) 2:25 AM) [facility] AND [id number] 07:25:00 Test Item Value Reference Range Interpretation Comments UA Spec Grav (test code = UA Spec 1.021 1 Grav) [facility] AND [id number] 07:25:00 Test Item Value Reference Range Interpretation Comments UA Turbidity (test code = Clear (10/12/18 2:25 UA Turbidity) AM) [facility] AND [id number] 07:25:00 Test Item Value Reference Range Interpretation Comments UA pH (test code = UA pH) 7.0 1 5.0-8.0 [facility]VpvkpieMKSPQZ6375-64-66 11:44:00 Test Item Value Reference Range Interpretation Comments GLUBED (test code = GLUBED) 58 MG/DL 74-106 L [id number] 06:49:00 Test Item Value Reference Range Interpretation Comments GLUBED (test code = GLUBED) 236 MG/DL 74-106 H [id number] 21:45:00 Test Item Value Reference Range Interpretation Comments GLUBED (test code = GLUBED) 85 MG/DL 74-106 N C REACTIVE [id number] 18:53:00 Test Item Value Reference Range Interpretation Comments C REACTIVE PROTEIN (test code = < 5.0 mg/L 0-9 N CRP) [id number] 17:49:00 Test Item Value Reference Range Interpretation Comments GLUBED (test code = GLUBED) 267 MG/DL 74-106 H - XR ABDOMEN 1 [id number] 15:27:00 FAX: Eva Barreto [phone] [place]: St: ADM FAX: Primitivo [place] [phone]: Maverick Cruz MD [phone] Name: PAVEL FRANCO [facility] : 1990 Age/S: 28/F [address] Unit#: [id number] Loc: [address] [place] [address] Phys: Adilia Cordova MANAGING JEWELER Acct: [id number] Dis Date: Status: ADM IN PHONE #: [phone] Exam Date: 09/16/2018 1305 FAX #: [phone] Reason: abdominal distention, eval ileus EXAMS: CPT CODE: [id number] XR ABDOMEN 1 V 16577 EXAM: Abdominal xray INDICATION: abdominal distention, eval ileus LOCATION CODE: C3 COMPARISON: 07/12/2018 TECHNIQUE: 1 view of the abdomen. DISCUSSION: The gallbladder is surgically absent. 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 This pattern has improved since prior study. Osseous structures are unremarkable. No subdiaphragmatic free air. IMPRESSION: 1. Improving small bowel distention. 2. Status post cholecystectomy. at 1527 Reported and signed by: Bhupinder Montelongo M.D. CC: Eva Sanchez DO; Adilia Cordova NP; Maverick Guerra MD Technologist: Dominique Fuller Trnscrd Date/Time/By: 09/16/2018 (1323) : By: BrianneLondon PAGE 1 Signed Report FAX: Eva Barreto [phone] [place]: St: ADM FAX: Primitivo [place] [phone] FAX: Maverick Watkins MD [phone] Name: PAVEL FRANCO [facility] : 1990 Age/S: 28/F [address] Unit #: [id number] Loc: [address] [place] [address] Phys: Adilia Cordova NP Acct: [id number] Dis Date: Status: ADM IN PHONE #: [phone] Exam Date: 09/16/2018 1305 FAX #: [phone] Reason: abdominal distention, eval ileus EXAMS: CPT CODE: [id number] XR ABDOMEN 1 V 44531 (Continued) Orig Print D/T: S: 09/16/2018 (9610) PAGE 2 Signed [id number] 11:18:00 Test Item Value Reference Range Interpretation Comments GLUBED (test code = GLUBED) 94 MG/DL 74-106 N COMPREHENSIVE METABOLIC [id number] 03:41:00 Test Item Value Reference Range Interpretation [...] U/L 38-126 N (test code = ALKP) [id number] 03:41:00 Test Item Value Reference Range Interpretation Comments PHOSPHOROUS (test code = PHOS) 4.1 mg/dL 2.5-4.5 N [id number] 03:41:00 Test Item Value Reference Range Interpretation Comments MAGNESIUM (test code = MAG) 1.9 mg/dL 1.6-2.3 N CBC W/AUTO [id number] 03:32:00 Test Item Value Reference Range Interpretation [...] = BA#) 0.07 x10 3/uL 0.0-0.1 N [id number] 21:20:00 Test Item Value Reference Range Interpretation Comments GLUBED (test code = GLUBED) 173 MG/DL 74-106 H [id number] 16:10:00 Test Item Value Reference Range Interpretation Comments GLUBED (test code = GLUBED) 83 MG/DL 74-106 N CBC W/AUTO [id number] 14:05:00 Test Item Value Reference Range Interpretation [...] = BA#) 0.08 x10 3/uL 0.0-0.1 N [id number] 13:58:00 Test Item Value Reference Range Interpretation Comments LIPASE (test code = LIP) 54 U/L 23-300 N [id number] 12:26:00 Test Item Value Reference Range Interpretation [...] code = LDLC) CORONARY RISK FACTOR 3.18 CHOL/H DL RISK MALE: (test code = RISK) 1/2 AVG 3 .43 FEMALE: 1/2 AVG 3.27 AV G 4.97 AVG 4.44 2 X AVG 9.55 2X AVG 7.0 5 3X AVG 23.39 3X AV G 11.04~~~~~~~~~~ ~~~~~ ~~~~~~~~~~~~~~~ ~~~~~ ~~~~~~~~~~~~~~~ ~~~~~ ~~~~~National Cholesterol Education (NCEP ) Guidelines:~~~~ ~~~~~ ~~~~~~~~~~~~~~~ ~~~~~ ~~~~~~~~~~~~~~~ ~~~~~ ~~~~~~~~~~~ H DL Cholesterol<4 0mg/d L: HDL Choleste rol (Major risk fac tor for CHD)>60mg/d L: HDL Cholesterol (Negative risk factor for CHD)40-59mg/dL: Borderline Risk LDL Cholesterol<1 00mg/ dL: Desirable L DL-C wvmyhmbtlgybe01 0-159 mg/dL: Borderli ne High Risk LDL-C dgogkiiyomalv96 0-189 mg/dL: High ris k LDL-C concentra [...] code = LDLC) CORONARY RISK FACTOR 3.18 CHOL/H DL RISK MALE: (test code = RISK) 1/2 AVG 3 .43 FEMALE: 1/2 AVG 3.27 AV G 4.97 AVG 4.44 2X AVG 9.55 2X AVG 7.05 3X AVG 23.39 3X AVG 11.04~~~~~~~~~~ ~~~~~~~ ~~~~~~~~~~~~~~~ ~~~~~~~ ~~~~~~~~~~~~~~~ ~~~~~~[facility] dang Education (OREP ) Guidelines:~~~~ ~~~~~~~ ~~~~~~~~~~~~~~~ ~~~~~~~ ~~~~~~~~~~~~~~~ ~~~~~~~ ~~~~~ HDL Cholesterol<4 0mg/dL: HDL Cholesterol (Major risk factor for CHD)>60mg/dL: H DL Cholesterol (Ne gative risk factor for CHD)40-59mg/dL: Borderline Risk LDL Cholesterol<1 00mg/dL : Desirable LDL -C kpiwmdvyhnybo56 0-159mg /dL: Borderline High Risk LDL-C yxrsayjbcosic59 0-189mg /dL: High risk LDL-C concentration H DL-LDL Cholesterol is affected by a n umber of factors such as smoking, age an d sex.~~~~~~~~~~~ ~~~~~~~ ~~~~~~~~~~~~~~~ ~~~~~~~ ~~~~~~~~~~~~~~~ ~~~~~ UA RFLX MICR CULT IF [id number] 02:45:00 Test Item Value Reference Range Interpretation [...] HPF = WBCUR) PYURIA ABSENT URINE CULTURE N OT INDICATED UA RBC (test code = 0-3 /HPF <4-5 RBCU) UA SQUAMOUS CELLS 0-5 (RARE) /HPF 0-5 (RARE) (test code = SQU) UA MUCUS (test code = Rare /LPF <Rare A MUCU) less than 18 yrs old, neutropenic, or urological surgery? NOPrimary Indication for Culture: Dysuria/Frequency- CTA ABD PEL W [id number] 02:11:00 FAX: Eva Barreto [phone] [place]: St: [facility] FAX: Дмитрий Lopez MD [phone] -- Name: PAVEL FRANCO [facility] : 1990 Age/S: 28/F [address] Unit: [id number] Loc: [place] [address] Phys: Дмитрий Lopez MD Acct: [id number] Dis Date: Status: REG ER PHONE #: [phone] Exam Date: 09/15/2018 0200 FAX #: [phone] Reason: ABD DISTINTION EXAMS: CPT CODE: [id number] CTA ABD PEL W CONT 01971 EXAM: - CTA ABD PEL W CONT LOCATION: C3 INDICATION: 28 years -old Female with ABD distention TECHNIQUE: Contrast - IV contrast was given. No oral contrast was given Arterial phase - abdomen and pelvis No delayed phase images were obtained. MIP- coronal and sagittal planes This exam was performed [...] dilation. Pancreas: Normal. Spleen: Normal. Adrenals: Normal. Genitourinary: The kidneys are normal. No evidence of [...] dissection. PAGE 1 Signed Report (CONTINUED) FAX: Eva Barreto [phone] [place]: St: [facility] FAX: Дмитрий Lopez MD [phone] Name: PAVEL FRANCO [facility] : 1990 Age/S: 28/F [address] Unit: [id number] Loc: [place] [address] Phys: Дмитрий Lopez MD Acct: [id number] Dis Date: Status: REG ER PHONE #:[phone] Exam Date: 09/15/2018 0200 FAX #: [phone] Reason: ABD DISTINTION EXAMS: CPT CODE: [id number] CTA ABD PEL W CONT 40694 (Continued) Lymphatics: No enlarged lymph nodes by CT [...] and signed by: Nasir LEWIS, Earle CC: Eva Sanchez DO; Дмитрий Lopez MD Technologist: GRZEGORZ BULLOCK; Malinda Berger; Matt Martinez [facility] Dt/Tm: 09/15/2018 (021) [email or web address] Orig Print D/T: S: 09/15/2018 (0214 PAGE 2Signed ReportPROTHROMBIN [id number] 02:02:00 Test Item Value Reference Range Interpretation Comments PROTHROMBIN TIME 9.9 SECONDS 9.2-12.1 N PATIENT (test code = PTP) INTERNATIONAL NORMAL 0.9 The INR is to be used RATIO (test code = only for monitoring INR) ORAL ANTICOAGULANTTH ERAPY. Indication INR Value1. Prophylaxis/jeni atment of: Venous Thro mbosis, Pulmonary Embol ism 2.0 - 3.02. Prevent ion of systemic emboli sm from: Tissue he art valves 2.0 - 3. 0 Acute myocardial infa rction (to present sys temic embolism)* 2.0 - 3.0 Valvular heart disease 2.0 - 3.0 Atria l fibrillation 2. 0 - 3.03. Mechanica l prosthetic valv es (high risk) 2.5 - 3.5 * If oral anticoagulant t herapy is elected to preventrecurren t myocardial infa rction, an INR of 2.5-3 .5 isrecommended, consistent with Food and Drug Administrationr ecommen dations. THROMBOPLASTIN TIME [id number] 02:02:00 Test Item Value Reference Range Interpretation Comments THROMBOPLASTIN TIME 22.9 SECONDS 23.4-37.0 L Therape utic Range PARTIAL (test code = for Hep izabela PTT) EFFECTIVE Heparin IU/mL a PTT Seconds0.3 64.3 0.7 88.8 COMPREHENSIVE METABOLIC [id number] 01:54:00 Test Item Value Reference Range Interpretation [...] 38-126 N (test code = ALKP) HCG [id number] 01:47:00 Test Item Value Reference Range Interpretation [...] after 48 hours toconfirm . CBC W/AUTO [id number] 01:43:00 Test Item Value Reference Range Interpretation [...] BA#) 0.06 x10 3/uL 0.0-0.1 N BEDSIDE [id number] 01:40:00 Test Item Value Reference Range Interpretation Comments BEDSIDE CREATININE (test code = 0.6 mg/dL 0.52-1.04 N CREATBED) [id number] 22:52:00 Test Item Value Reference Range Interpretation Comments Grp A Strep Scr (test Negative (08/03/18 5:52 code = Grp A Strep PM) Scr) [facility] AND [id number] 20:21:00 Test Item Value Reference Range Interpretation Comments UA Leuk Est (test code Small *ABN*(08/03/18 = UA Leuk Est) 3:21 PM) [facility] AND [id number] 20:21:00 Test Item Value Reference Range Interpretation Comments UA Nitrite (test code Positive *ABN*(08/03/18 = UA Nitrite) 3:21 PM) [facility] AND [id number] 20:21:00 Test Item Value Reference Range Interpretation Comments UA Urobilinogen (test code = UA 0.2 0.1-1.0 [facility]robilinogen) [facility] [id number] 20:21:00 Test Item Value Reference Range Interpretation Comments UA Sq Epi (test code = UA Sq Epi) Many /LPF [facility] AND [id number] 20:21:00 Test Item Value Reference Range Interpretation Comments UA Bacteria (test code = UA Many /HPF Bacteria) [facility] AND [id number] 20:21:00 Test Item Value Reference Range Interpretation Comments UA RBC (test code = 18 See_Comment [Automa owen message] The UA RBC) system which ge nerated this result transmit owen reference range : <=2. The reference range was not used to interpr et this result as fredi l/abnormal. [facility] AND [id number] 20:21:00 Test Item Value Reference Range Interpretation Comments UA WBC (test code = 21 See_Comment [Automa owen message] The UA WBC) system which ge nerated this result transmit owen reference range : <=5. The reference range was not used to interpr et this result as fredi l/abnormal. [facility] AND [id number] 20:21:00 Test Item Value Reference Range Interpretation Comments UA Ketones (test code = UA Ketones) 80 mg/dL [facility] AND [id number] 20:21:00 Test Item Value Reference Range Interpretation Comments UA Blood (test code = Negative (08/03/18 3:21 UA Blood) PM) [facility] AND [id number] 20:21:00 Test Item Value Reference Range Interpretation Comments UA Bili (test code = Moderate *ABN*(08/03/18 UA Bili) 3:21 PM) [facility] AND [id number] 20:21:00 Test Item Value Reference Range Interpretation Comments UA Glucose (test code Negative (08/03/18 3:21 = UA Glucose) PM) [facility] AND [id number] 20:21:00 Test Item Value Reference Range Interpretation Comments UA pH (test code = UA pH) 6.5 1 5.0-8.0 [facility] AND [id number] 20:21:00 Test Item Value Reference Range Interpretation Comments UA Protein (test code = UA Protein) 30 mg/dL [facility] AND [id number] 20:21:00 Test Item Value Reference Range Interpretation Comments UA Spec Grav (test code = UA Spec 1.025 1 Grav) [facility] AND [id number] 20:21:00 Test Item Value Reference Range Interpretation Comments UA Turbidity (test code Cloudy *ABN*(08/03/18 = UA Turbidity) 3:21 PM) [facility] AND [id number] 20:21:00 Test Item Value Reference Range Interpretation Comments UA Color (test code = Yellow *NA*(08/03/18 UA Color) 3:21 PM) [facility] AND [id number] 20:21:00 Test Item Value Reference Range Interpretation Comments UA Rock Yeast (test code = UA Occasional /HPF Rock Yeast) [facility] AND [id number] 20:21:00 Test Item Value Reference Range Interpretation Comments UA Mucus (test code = UA Mucus) Many /LPF [facility] [id number] 20:21:00 Test Item Value Reference Range Interpretation Comments Culture: Urine >100,000 CFU/mL Group B (test code = Streptococcus , No Culture: Urine) susceptibility performed since these organisms are predictably susceptible to penicillin. If patient is penicillin allergic or susceptibility testing for additional antibiotics is clinically warranted please call the laboratory. . 10,000 - 50,000 CFU/mL Skin Izzy [facility] [id number] 18:25:00 Test Item Value Reference Range Interpretation Comments Magnesium Lvl (test code = Magnesium 1.7 1.8-2.4 Lvl) [facility] [id number] 18:25:00 Test Item Value Reference Range Interpretation Comments Ketone Quantitative (test code = Ketone 2.67 Quantitative) [facility] [id number] 18:25:00 Test Item Value Reference Range Interpretation Comments A/G Ratio (test code = A/G Ratio) 1.1 1 0.7-1.6 [facility] [id number] 18:25:00 Test Item Value Reference Range Interpretation Comments Globulin (test code = Globulin) 3.4 2.7-4.2 [facility] [id number] 18:25:00 Test Item Value Reference Range Interpretation Comments B/C Ratio (test code = B/C Ratio) 10 1 6-25 [place] [id number] 18:25:00 Test Item Value Reference Range Interpretation Comments AGAP (test code = AGAP) 17.1 10.0-20.0 [place] [id number] 18:25:00 Test Item Value Reference Range Interpretation Comments eGFR (test code = eGFR) 105 [facility]2019-03-19 18:25:00 Test Item Value Reference Range Interpretation Comments Total Protein (test code = Total 7.3 6.4-8.4 Protein) [place] 930779-03-19 18:25:00 Test Item Value Reference Range Interpretation Comments Calcium Lvl (test code = Calcium Lvl) 8.9 8.5-10.5 [place] 930779-03-19 18:25:00 Test Item Value Reference Range Interpretation Comments CO2 (test code = CO2) 22 24-32 [place] 930779-03-19 18:25:00 Test Item Value Reference Range Interpretation Comments Alk Phos (test code = Alk Phos) 93 39-136 [place] 930779-03-19 18:25:00 Test Item Value Reference Range Interpretation Comments Bili Total (test code = Bili Total) 0.6 0.2-1.3 [place] 930779-03-19 18:25:00 Test Item Value Reference Range Interpretation Comments ALT (test code = ALT) 21 See_Comment [Auto mated message] The system which ge nerated this result transmit owen reference range : <=65. The reference range was not used to interpr et this result as fredi l/abnormal. [facility]2019-03-19 18:25:00 Test Item Value Reference Range Interpretation Comments Albumin Lvl (test code = Albumin Lvl) 3.9 3.5-5.0 [place] 930779-03-19 18:25:00 Test Item Value Reference Range Interpretation Comments AST (test code = AST) 14 See_Comment [Auto mated message] The system which ge nerated this result transmit owen reference range : <=37. The reference range was not used to interpr et this result as fredi l/abnormal. [place] 930779-03-19 18:25:00 Test Item Value Reference Range Interpretation Comments Chloride Lvl (test code = Chloride Lvl) 102 95-109 [facility]2019-03-19 18:25:00 Test Item Value Reference Range Interpretation Comments Sodium Lvl (test code = Sodium Lvl) 137 135-145 [facility]2019-03-19 18:25:00 Test Item Value Reference Range Interpretation Comments Creatinine Lvl (test code = Creatinine 0.77 0.50-1.40 Lvl) [facility]2019-03-19 18:25:00 Test Item Value Reference Range Interpretation Comments Glucose Lvl (test code = Glucose Lvl) 167 70-99 [facility]2019-03-19 18:25:00 Test Item Value Reference Range Interpretation Comments Potassium Lvl (test code = Potassium 4.1 3.5-5.1 Lvl) [facility]2019-03-19 18:25:00 Test Item Value Reference Range Interpretation Comments BUN (test code = BUN) 8 7- [place] 245189-03-19 18:25:00 Test Item Value Reference Range Interpretation Comments S Preg (test code = S Negative *NA*(08/03/18 Preg) 1:25 PM) [facility] [id number] 18:25:00 Test Item Value Reference Range Interpretation Comments Monocytes (test code = Monocytes) 9.2 2.0-12.0 [facility] IrvingRdgzjjcVUYVYJFLAT5284-26-22 18:25:00 Test Item Value Reference Range Interpretation Comments Monocytes # (test code 0.5 See_Comment [Aut omated message] The = Monocytes #) system which generated this result tra nsmitted reference range : <=0.8. The reference r jase was not used to int erpret this result as normal/abnormal . [facility] IrvingBqnpkazBLIHSILJTW0551-17-80 18:25:00 Test Item Value Reference Range Interpretation Comments Neutrophils # (test code = Neutrophils 3.2 1.5-8.1 #) [facility] [id number] 18:25:00 Test Item Value Reference Range Interpretation Comments Lymphocytes # (test code = Lymphocytes 1.2 1.0-5.5 #) [facility] IrvingYuzvjajIUTXEAPDRK9096-70-74 18:25:00 Test Item Value Reference Range Interpretation Comments Lymphocytes (test code = Lymphocytes) 22.7 20.0-40.0 [facility] IrvingRvygvkjFKKNYLYUHY7591-22-52 18:25:00 Test Item Value Reference Range Interpretation Comments Segs (test code = Segs) 61.7 45.0-75.0 [facility] Irvi[id number] 18:25:00 Test Item Value Reference Range Interpretation Comments Basophils (test code = 0.9 See_Comment [Aut omated message] The Basophils) system which ge nerated this result tra nsmitted reference range : <=1.0. The reference r jase was not used to int erpret this result as normal/abnormal . [facility] IrvingDjnxywqDHRBEBPVUS7023-27-55 18:25:00 Test Item Value Reference Range Interpretation Comments Eosinophils (test code = 5.5 See_Comment [A utomated message] The Eosinophils) system which ge nerated this result tra nsmitted reference range : <=4.0. The reference r jase was not used to int erpret this result as normal/abnormal . [facility] IrvingDctvrjcAYVZONCZRF4660-64-19 18:25:00 Test Item Value Reference Range Interpretation Comments Eosinophils # (test code 0.3 See_Comment [A utomated message] The = Eosinophils #) system whic h generated this result tra nsmitted reference range : <=0.5. The reference r jase was not used to int erpret this result as normal/abnormal . [facility] IrvingFaikbzxZIKDFLNJBE5664-12-44 18:25:00 Test Item Value Reference Range Interpretation Comments MPV (test code = MPV) 8.5 7.4-10.4 [facility] IrvingTusoyioRMHGFDCGWX0480-21-43 18:25:00 Test Item Value Reference Range Interpretation Comments MCV (test code = MCV) 98.2 80.0-98.0 [facility] IrvingZuvueyjPSEJJBHKGF0026-77-47 18:25:00 Test Item Value Reference Range Interpretation Comments MCHC (test code = MCHC) 34.4 32.0-36.0 [facility] IrvingJggyzloEHBUAPUONR1951-13-16 18:25:00 Test Item Value Reference Range Interpretation Comments MCH (test code = MCH) 33.8 pg 27.0-31.0 [facility] IrvingWfdnvnrDNOWUGXSKY6991-04-10 18:25:00 Test Item Value Reference Range Interpretation Comments RDW (test code = RDW) 12.0 11.5-14.5 [facility] IrvingFrqdxjrULAPWDWEZH2930-07-61 18:25:00 Test Item Value Reference Range Interpretation Comments Platelet (test code = Platelet) 243 133-450 [facility] IrvingAgmljtyOQPLHNFRTG2204-54-12 18:25:00 Test Item Value Reference Range Interpretation Comments RBC (test code = RBC) 4.36 4.20-5.40 [facility] IrvingQnrounpKAGJETDVSS2189-42-73 18:25:00 Test Item Value Reference Range Interpretation Comments Hct (test code = Hct) 42.9 36.0-48.0 [facility] IrvingVfsuskhMXCYRHYXAS7678-34-34 18:25:00 Test Item Value Reference Range Interpretation Comments Hgb (test code = Hgb) 14.7 12.0-16.0 [facility] IrvingKhsidhmEUJHWQIOZU4085-83-37 18:25:00 Test Item Value Reference Range Interpretation Comments WBC (test code = WBC) 5.2 3.7-10.4 [facility]2019-03-01 23:33:00 Test Item Value Reference Range Interpretation Comments eGFR (test code = eGFR) 92 [facility]2019-03-01 23:33:00 Test Item Value Reference Range Interpretation Comments Glucose Lvl (test code = Glucose Lvl) 248 70-99 [facility]2019-03-01 23:33:00 Test Item Value Reference Range Interpretation Comments BUN (test code = BUN) 13 7-22 [facility]2019-03-01 23:33:00 Test Item Value Reference Range Interpretation Comments Creatinine Lvl (test code = Creatinine 0.86 0.50-1.40 Lvl) [facility]2019-03-01 23:33:00 Test Item Value Reference Range Interpretation Comments Sodium Lvl (test code = Sodium Lvl) 132 135-145 [facility]2019-03-01 23:33:00 Test Item Value Reference Range Interpretation Comments Potassium Lvl (test code = Potassium 4.1 3.5-5.1 Lvl) [facility]2019-03-01 23:33:00 Test Item Value Reference Range Interpretation Comments Alk Phos (test code = Alk Phos) 99 39-136 [facility]2019-03-01 23:33:00 Test Item Value Reference Range Interpretation Comments Bili Total (test code = Bili Total) 0.3 0.2-1.3 [facility]2019-03-01 23:33:00 Test Item Value Reference Range Interpretation Comments Total Protein (test code = Total 7.8 6.4-8.4 Protein) [facility]2019-03-01 23:33:00 Test Item Value Reference Range Interpretation Comments Albumin Lvl (test code = Albumin Lvl) 4.2 3.5-5.0 [facility]2019-03-01 23:33:00 Test Item Value Reference Range Interpretation Comments ALT (test code = ALT) 49 See_Comment [Auto mated message] The system which ge nerated this result transmit owen reference range : <=65. The reference range was not used to interpr et this result as fredi l/abnormal. [facility]2019-03-01 23:33:00 Test Item Value Reference Range Interpretation Comments AST (test code = AST) 26 See_Comment [Auto mated message] The system which ge nerated this result transmit owen reference range : <=37. The reference range was not used to interpr et this result as fredi l/abnormal. [facility]2019-03-01 23:33:00 Test Item Value Reference Range Interpretation Comments Calcium Lvl (test code = Calcium Lvl) 10.1 8.5-10.5 [facility]2019-03-01 23:33:00 Test Item Value Reference Range Interpretation Comments Chloride Lvl (test code = Chloride Lvl) 98 95-109 [facility]2019-03-01 23:33:00 Test Item Value Reference Range Interpretation Comments CO2 (test code = CO2) 26 24-32 [facility]2019-03-01 23:33:00 Test Item Value Reference Range Interpretation Comments AGAP (test code = AGAP) 12.1 10.0-20.0 [facility]2019-03-01 23:33:00 Test Item Value Reference Range Interpretation Comments B/C Ratio (test code = B/C Ratio) 15 1 6-25 [facility]2019-03-01 23:33:00 Test Item Value Reference Range Interpretation Comments Globulin (test code = Globulin) 3.6 2.7-4.2 [facility]2019-03-01 23:33:00 Test Item Value Reference Range Interpretation Comments A/G Ratio (test code = A/G Ratio) 1.2 1 0.7-1.6 [facility]villeGjzljvpAYTCTMIXUWBJA7440-20-51 23:33:00 Test Item Value Reference Range Interpretation Comments S Preg (test code = S Negative *NA*(07/16/18 Preg) 5:33 PM) [facility] IrvingGwvffohBYLTLPBGVF3780-29-95 23:33:00 Test Item Value Reference Range Interpretation Comments PTT (test code = PTT) 25.4 s 22.9-35.8 [facility] IrvingXpdppmvRQLEGTQTEU5077-49-88 23:33:00 Test Item Value Reference Range Interpretation Comments PT (test code = PT) 11.5 s 12.0-14.7 [facility] IrvingXsqjxdsRAOGQQXKNC2642-86-06 23:33:00 Test Item Value Reference Range Interpretation Comments INR (test code = INR) 0.85 1 0.85-1.17 [facility] IrvingObjlsgmAEFMBACSOY0928-66-09 23:33:00 Test Item Value Reference Range Interpretation Comments MCHC (test code = MCHC) 34.5 32.0-36.0 [facility] IrvingYdnzxkoSPXELQZJTS8333-49-15 23:33:00 Test Item Value Reference Range Interpretation Comments MCV (test code = MCV) 100.0 80.0-98.0 [facility] IrvingVrxwkosXASPGDLJUZ9279-74-02 23:33:00 Test Item Value Reference Range Interpretation Comments Hct (test code = Hct) 46.1 36.0-48.0 [facility] IrvingIodsnzsIMCIDBQICN6126-05-98 23:33:00 Test Item Value Reference Range Interpretation Comments Hgb (test code = Hgb) 15.9 12.0-16.0 [facility] IrvingTjkyykuYGBFQWGCGC7030-65-53 23:33:00 Test Item Value Reference Range Interpretation Comments RBC (test code = RBC) 4.61 4.20-5.40 [facility] IrvingUosevmvCTQBPWXEFF1029-53-16 23:33:00 Test Item Value Reference Range Interpretation Comments MCH (test code = MCH) 34.5 pg 27.0-31.0 [facility] IrvingWzrbgntEKCQFNPYON6052-68-75 23:33:00 Test Item Value Reference Range Interpretation Comments WBC (test code = WBC) 8.8 3.7-10.4 [facility] IrvingPcaadtgPEFJTXFXJB7615-78-95 23:33:00 Test Item Value Reference Range Interpretation Comments MPV (test code = MPV) 8.8 7.4-10.4 [facility] IrvingItmhllbIQGGIUURSD9728-16-41 23:33:00 Test Item Value Reference Range Interpretation Comments Platelet (test code = Platelet) 297 133-450 [facility] IrvingPujojnfKUGQNQYWXL4016-59-94 23:33:00 Test Item Value Reference Range Interpretation Comments RDW (test code = RDW) 12.1 11.5-14.5 [facility] IrvingCzvjicnHJRIZFMYMO4028-75-18 23:33:00 Test Item Value Reference Range Interpretation Comments Macrocyte (test code = 1+ *ABN*(07/16/18 5:33 Macrocyte) PM) [facility] IrvingWgscxmzHHEMBKACTV4894-19-18 23:33:00 Test Item Value Reference Range Interpretation Comments Basophils # (test code 0.1 See_Comment [Aut omated message] The = Basophils #) system which generated this result tra nsmitted reference range : <=0.2. The reference r jase was not used to int erpret this result as normal/abnormal . [facility] IrvingGuacrirREXBIVQLDK6776-57-58 23:33:00 Test Item Value Reference Range Interpretation Comments Eosinophils # (test code 0.7 See_Comment [A utomated message] The = Eosinophils #) system whic h generated this result tra nsmitted reference range : <=0.5. The reference r jase was not used to int erpret this result as normal/abnormal . [facility] IrvingKsnlafgARHCDIOJMB8631-86-12 23:33:00 Test Item Value Reference Range Interpretation Comments Monocytes # (test code 0.4 See_Comment [Aut omated message] The = Monocytes #) system which generated this result tra nsmitted reference range : <=0.8. The reference r jase was not used to int erpret this result as normal/abnormal . [facility] IrvingIqygbywRSRZTOMKVD6604-40-52 23:33:00 Test Item Value Reference Range Interpretation Comments Lymphocytes # (test code = Lymphocytes 2.3 1.0-5.5 #) [facility] IrvingZgldmuzZAXRBRJDDK6492-95-77 23:33:00 Test Item Value Reference Range Interpretation Comments Segs (test code = Segs) 60.5 45.0-75.0 [facility] IrvingZntkhngCTCCIXVBRE5851-81-81 23:33:00 Test Item Value Reference Range Interpretation Comments Neutrophils # (test code = Neutrophils 5.3 1.5-8.1 #) [facility] IrvingIjjvwbsLEWTYFDYMU5931-35-20 23:33:00 Test Item Value Reference Range Interpretation Comments Monocytes (test code = Monocytes) 4.9 2.0-12.0 [facility] IrvingEejaslrRXZQZDGFQE1054-05-82 23:33:00 Test Item Value Reference Range Interpretation Comments Basophils (test code = 0.9 See_Comment [Aut omated message] The Basophils) system which ge nerated this result tra nsmitted reference range : <=1.0. The reference r jase was not used to int erpret this result as normal/abnormal . [facility] IrvingAridxbeMZRXEDUGZP4899-33-70 23:33:00 Test Item Value Reference Range Interpretation Comments Eosinophils (test code = 7.6 See_Comment [A utomated message] The Eosinophils) system which ge nerated this result tra nsmitted reference range : <=4.0. The reference r jase was not used to int erpret this result as normal/abnormal . [facility] IrvingQgfujgjFHOWZAJFHZ0570-39-92 23:33:00 Test Item Value Reference Range Interpretation Comments Lymphocytes (test code = Lymphocytes) 26.1 20.0-40.0 [facility] METABOLIC [id number] 00:13:00 Test Item Value Reference Range Interpretation Comments SODIUM (test code = 136 mmol/L 137-145 L NA) POTASSIUM (test code 5.5 mmol/L 3.4-5.0 H IS THE SAMPLE = K) HEMOLYZED?:YESH EMO YSIS GRADE:2+ CHLORIDE (test code 100 mmol/L [...] ALKP) - XR HAND 3 + V [id number] 00:09:00 FAX: Eva Barreto [phone] [place]: [address] St: REG Name: [place] : 1990 Age/S: [id number] Unit #: [id number] Loc: [place] [address] Phys: Ro Carter Acct: [id number] Dis Date: Status: REG ER PHONE #: [phone] Exam Date: 07/13/20182353 FAX #: [phone] Reason: SWELLING AFTER HAVING IV EXAMS: CPT CODE: [id number] XR HAND 3 + [place] [id number] AFTER HOURSSERVICE ON: 07/14/2018 12:08 AM Right Hand, 3 Views Location Code M12 History: SWELLING AFTER HAVING IV Findings: There is soft tissue swelling in the dorsum at the level of the metacarpals and carpals. There is no soft tissue emphysema. There is normal anatomic alignment. No fracture, dislocation or a vulsion fragments are seen. Articular surfaces are within normal limits. Impression: Moderate dorsalsoft tissue swelling. No soft tissue emphysema or osseous abnormality. at 0009 Reported and signed by: Valencia Wood MD CC:Eva Sanchez DO Technologist: Andres Arguelles Date/Time/By: 07/14/2018 (0009) : By: [email or web address] PAGE 1 Signed Report FAX: Eva Barreto [phone] [place]: St: REG Name: PAVEL FRANCO [facility] : 1990 Age/S: 27/F [address] Unit #: [id number] Loc: [place] [address] Phys: Ro Carter Acct: [id number] Dis Date: Status: REG ER PHONE #: [phone] Exam Date: 2018 FAX #: [phone] Reason: SWELLING AFTER HAVING IV EXAMS: CPT CODE: [id number] XR HAND 3+ V RT 22769 (Continued) Orig Print D/T: S: 07/14/2018 (0012) PAGE 2 [facility] [id number] 00:00:00 Test Item Value Reference Range Interpretation [...] = BA#) 0.09 x10 3/uL 0.0-0.1 N [id number] 12:25:00 Test Item Value Reference Range Interpretation [...] 0.5-2.0 NG/ML are obtained. HGBA1C - GLYCOSYLATED [id number] 08:47:00 Test Item Value Reference Range Interpretation Comments GLYCOSYLATED 11.7 % 0-5.9 H Current guideli ellen HEMOGLOBIN (HA1C) recommend a treatment goal (test code = GLYHGB) of <7% fordiabetic patients. A1c m ay be overestimated i n diabeticpatient s exhibiting poor control an d who are alsoheterozygou s or homozygous for HgbS or HgbC. Totalglyc ohemoglobin is a better ind icator of diabetic contro l inpatients with these hemo globin variants. BASIC METABOLIC [id number] 08:43:00 Test Item Value Reference Range Interpretation [...] code 8.3 mg/dL 8.4-10.2 L = CA) [id number] 08:43:00 Test Item Value Reference Range Interpretation Comments MAGNESIUM (test code = MAG) 1.7 mg/dL 1.6-2.3 N BASIC METABOLIC [id number] 08:42:00 Test Item Value Reference Range Interpretation [...] code 8.3 mg/dL 8.4-10.2 L = CA) [id number] 08:42:00 Test Item Value Reference Range Interpretation Comments MAGNESIUM (test code = MAG) mg/dL 1.6-2.3 LACTIC [id number] 08:42:00 Test Item Value Reference Range Interpretation Comments LACTIC ACID (test code = LACT) 1.9 mmol/L 0.7-2.0 N CBC W/AUTO [id number] 08:22:00 Test Item Value Reference Range Interpretation [...] = BA#) 0.08 x10 3/uL 0.0-0.1 N [id number] 07:16:00 Test Item Value Reference Range Interpretation Comments GLUBED (test code = GLUBED) 68 MG/DL 74-106 L [id number] 07:16:00 Test Item Value Reference Range Interpretation Comments GLUBED (test code = GLUBED) 71 MG/DL 74-106 L DRUGS OF ABUSE [id number] 03:42:00 Test Item Value Reference Range Interpretation Comments TRICYCLICS QL SQN (test NEGATIVE NEG TEST PERFORMED code = TRIUR) MANUALLY USING [employer] RAPIDTEST TCA.C UTOFF >/= 1000 NG/ML A [...] AMPHU) UR BARBITURATE QUAL NEGATIVE NEGATIVE CUTOFF > /= 200 NG/ML (test code = BARBQLU) UR BENZODIAZEPINE (test POSITIVE NEGATIVE CUTO FF >/= 200 NG/ML code = BENZU) UR OPIATES QUAL (test NEGATIVE NEGATIVE CUTOFF >/= 2000 NG/ML code = OPIAQLU) UR PHENCYCLIDINE (PCP) NEGATIVE NEGATIVE CUTOF F >/= 25 NG/ML (test code = PHENCU) UA RFLX MICR CULT IF [id number] 03:27:00 Test Item Value Reference Range Interpretation [...] HPF = WBCUR) PYURIA ABSENT URINE CULTURE N OT INDICATED UA RBC (test code = 0-3 [...] = HCGQLU) NEGATIVE NEGATIVE DRUGS OF ABUSE [id number] 03:21:00 Test Item Value Reference Range Interpretation Comments TRICYCLICS QL SQN (test NEGATIVE NEG TEST PERFORMED code = TRIUR) MANUALLY USING TV TubeXVA RAPIDTEST TCA.C UTOFF >/= 1000 NG/ML A [...] code = PHENCU) - CT ABD PELVIS W/[id number] 02:46:00 FAX: Eva Barreto [place] [phone] [place]: St: REG Name: PAVEL FRANCO [facility] : 1990 Age/S: 27/F [address] Unit: [id number] Loc: [place] [address] Phys: Kathleen Napoles MD Acct: [id number] Dis Date: Status: REG ER PHONE #: [phone] Exam Date: 07/12/2018217 FAX #: [phone] Reason: abd pain, lactate, ams EXAMS: CPT CODE: [id number] CT ABD PELVIS W/CONT 76295 EXAM: - CT ABD PELVIS W/CONT HISTORY: Abdominal pain. AMS. TECHNIQUE: Axial tomograms through the abdomen and pelviswere obtained after intravenous contrast. Coronal and sagittal reformatted images are provided. Thisexam was performed according to our departmental dose-optimization program, which includes automatedexposure control, adjustment of the mA and/or kV according to patient size and/or use of iterative reconstruction technique. COMPARISON: None available time of interpretation. FINDINGS: The visualized lung bases are clear. Status post cholecystectomy. The liver, spleen, pancreas, adrenal glands and kidneys demonstrate no significant abnormalities. The appendix is surgically absent. The colon is filled with retained fecal matter throughout its length. There is no adenopathy or free fluid. There is no acute osseous abnormality. IMPRESSION: No significant abnormalities demonstrated. at 0246 Reported and signed by: Benjamin Machuca MD PAGE 1 Signed Report (CONTINUED) FAX: Eva Barreto [phone] [place]: St: [facility]: 1990 Age[facility] 27[facility]F [address] Unit: [id number] Loc: [place] [address] Phys: Kathleen Napoles MD Acct: [id number] Dis Date: Status: REG ER PHONE #: [phone] Exam Date: FAX #: [phone] Reason: abd pain, lactate, ams EXAMS: CPT CODE: [id number] CT ABD PELVIS W/CONT 77241 (Continued) CC: Eva Sanchez DO Technologist: Yumiko Capone Dt/Tm: 07/12/2018 (0246) [email or web address] Orig Print D/T: S: 07/12/2018 (0249 PAGE 2 Signed [id number] 02:35:00 Test Item Value Reference Range Interpretation Comments ACETAMINOPHEN (test code = ACET) <10 ug/mL 10-30 L [id number] 02:35:00 Test Item Value Reference Range Interpretation Comments SALICYLATE (test code < 1.0 mg/dL Negati ve <2.0 = NAVDEEP) mg/dLTherapeuti c Range <20 mg/dL [id number] 02:35:00 Test Item Value Reference Range Interpretation Comments ALCOHOL (test code = < 10 mg/dL <10 ~~~~~~ ~~~~~~~~~~~~~~~ ALC) ~~~~~~~~~~~~~~~ ~~~~~~~ ~~~~~~~ RESULTS ARE TO BE USED FOR MED ICAL PURPOSES ONLY.F OR LEGAL PURPOSES THE SPECIMEN MUST B E COLLECTED BY A CHAINOF CUSTODY. LEGAL TESTING IS NOT PERFORME D BY THIS FACILITY. ~~~~~~~~~~~~~~~ ~~~~~~~ ~~~~~~~~~~~~~~~ ~~~~~~~ ~~~~~~ LACTIC ACID [id number] 02:12:00 Test Item Value Reference Range Interpretation Comments LACTIC ACID POC (test code = 0.98 mmol/L 0.7-2.0 N LACTP) [id number] 02:10:00 Test Item Value Reference Range Interpretation Comments GLUBED (test code = GLUBED) 71 MG/DL 74-106 L [id number] 02:10:00 Test Item Value Reference Range Interpretation Comments GLUBED (test code = GLUBED) 83 MG/DL 74-106 N [id number] 02:10:00 Test Item Value Reference Range Interpretation Comments GLUBED (test code = 530 MG/DL 74-106 HH Read Mathew k to GLUBED) A VENOUS SPECIMEN SHOULD BE ORDERED FOR GLU COSE VERIFICATION IF MEDICALLY NECESSARY. HCG [id number] 01:29:00 Test Item Value Reference Range Interpretation [...] hours toconfirm . - XR ABDOMEN 1 [id number] 01:09:00 FAX: Eva Barreto [phone] [place]: St: REG Name: PAVEL FRANCO [facility] : 1990 Age/S: 27/F [address] Unit #: [id number] Loc: [place] [address] Phys: Kathleen Napoles MD Acct: [id number] Dis Date: Status: REG ER PHONE #: [phone] Exam Date: 07/12/201844 FAX #: [phone]: abd distension EXAMS: CPT CODE: [id number] XR ABDOMEN 1 V 31009 EXAM: ABDOMINAL SERIES HISTORY: abd distension TECHNIQUE: Supine and erect views of the abdomen. COMPARISON: None. FINDINGS: Moderate formed fecal matter is present in the colon. No abnormal bowel dilatation is present. No air-fluid levels or evidence of pneumoperitoneum . Surgical clips are noted in the right upper quadrant. The visualized lung base is clear. The osseous structures are intact. IMPRESSION: Radiographic findingsconsistent with constipation. Otherwise unremarkable exam demonstrating a nonobstructive bowel gas pattern. at 0107 Reported and signed by: Glenna Hill MD CC: Eva Sanchez DO Technologist: Andres Arguelles [facility] Date/Time/By: 07/12/2018 (0109) : By: [email or web address] PAGE 1 Signed Report FAX: Tamara SanchezEva Callahan [phone] [place]: St: REG Name: PAVEL FRANCO [facility] : 1990 Age/S: 27/F [address] Unit #: [id number] Loc: [place] [address] Phys: Kathleen Napoles MD Acct: [id number] Dis Date: Status: REG ER PHONE #: [phone] Exam Date: 07/12/201844 FAX #: [phone] Reason: abd distension EXAMS: CPT CODE: [id number] XR ABDOMEN 1 V 49344 (Continued) Orig Print D/T: S: 07/12/2018 (0112) PAGE 2 Signed ReportBASIC METABOLIC [id number] 00:44:00 Test Item Value Reference Range Interpretation [...] Critical Value = GLU) reported toFirs t Name:[id number] [facility] Name:RESULTS RE AD BACK AND RYAN STEPHENS, on 07/12/18, @ 000 9. BLOOD UREA [...] mg/dL 8.4-10.2 N = CA) LIVER FUNCTION [id number] 00:44:00 Test Item Value Reference Range Interpretation [...] U/L 38-126 N (test code = ALKP) [id number] 00:44:00 Test Item Value Reference Range Interpretation Comments PHOSPHOROUS (test code = PHOS) 3.7 mg/dL 2.5-4.5 N [id number] 00:44:00 Test Item Value Reference Range Interpretation Comments LIPASE (test code = LIP) 202 U/L 23-300 N [id number] 00:44:00 Test Item Value Reference Range Interpretation Comments MAGNESIUM (test code = MAG) 1.8 mg/dL 1.6-2.3 N ACETONE [id number] 00:44:00 Test Item Value Reference Range Interpretation Comments ACETONE QUAL NOT APPLICABLE NEGATIVE ACETEST DISCO NTINUED. (test code = BETA-HYDROXYBUT ERATE ACETNQL) TESTING ISRECOM MENDED FOR THE DETECTI ON OF KETOACIDOSIS. LACTIC ACID [id number] 00:25:00 Test Item Value Reference Range Interpretation [...] between 0.5-2.0 NG/ML are obtained. BASIC METABOLIC [id number] 00:09:00 Test Item Value Reference Range Interpretation [...] Critical Value = GLU) reported toFirs t Name:[id number] [place] [facility] Name:RESULTS RE AD BACK AND RYAN STEPHENS, on 07/12/18, @ 000 9. BLOOD UREA [...] mg/dL 8.4-10.2 N = CA) LIVER FUNCTION [id number] 00:09:00 Test Item Value Reference Range Interpretation [...] U/L 38-126 N (test code = ALKP) [id number] 00:09:00 Test Item Value Reference Range Interpretation Comments PHOSPHOROUS (test code = PHOS) 3.7 mg/dL 2.5-4.5 N [id number] 00:09:00 Test Item Value Reference Range Interpretation Comments LIPASE (test code = LIP) 202 U/L 23-300 N [id number] 00:09:00 Test Item Value Reference Range Interpretation Comments MAGNESIUM (test code = MAG) 1.8 mg/dL 1.6-2.3 N ACETONE [id number] 00:09:00 Test Item Value Reference Range Interpretation Comments ACETONE QUAL (test code = ACETNQL) NEGATIVE - CT HEAD/BRAIN W/O [id number] 00:06:00 [place]: St: PRE -- Name: PAVEL FRANCO [facility] : 1990 Age/S: 27/F [address] Unit: [id number] Loc: [place] [address] Phys: Kathleen Napoles MD Acct: [id number] Dis Date: Status: PRE ER PHONE #: [phone] Exam Date: 07/11/2018 2352 FAX #: [phone] Reason: AMS EXAMS: CPT CODE: [id number] CT HE AD/BRAIN W/O CONT 05384 Exam: CT head without contrast. Location: F6 History: AMS Technique: Unenhanced spiral slices were taken from the base of the skull, through the vertex. One or more of the following dose reduction techniques were used: Automated exposure control, adjustment of the mA and/or kVaccording to patient size, and/or utilization of iterative reconstruction technique. Findings: No acute intracranial abnormality is identified. The brain parenchyma and the CSF spaces are unremarkable.No mass, midline shift, hemorrhage, hydrocephalus or edema is seen. The visualized paranasal sinusesare clear. The mastoid air cells are well pneumatized. The bony calvarium is intact. Impression: No acute intracranial abnormality. at 0006 Reported and signed by: Rafal Longo CC: Technologist: Yumiko Capone Dt/Tm: 07/12/2018 (0006) BrianneFC Orig Print D/T: S: 07/12/2018 (0009 PAGE 1 Signed Report- XR CHEST 1 V 2018-07-12 00:06:00 [place]: St: PRE -- Name: PAVEL FRANCO [facility] : 1990 Age/S: 27/F [address] Unit #: [id number] Loc: [place] [address] Phys: Kathleen Napoles MD Acct: [id number] Dis Date: Status: PRE ER PHONE #:[phone] Exam Date: 07/11/2018 2348 FAX #: [phone] Reason: AMS EXAMS: CPT CODE: [id number] XR CHEST 1 V 15973 AP VIEW OF THE CHEST LOCATION: R16 CLINICAL HISTORY: Altered mental status. COMPARISON: Chest radiograph 08/15/2014. FINDINGS: The cardiomediastinal shadow is within normal limits. The lungs are clear. No pleural fluids. No acute bony abnormality is found. IMPRESSION: Unremarkable rad iographic study of the chest. at 0006 Reported and signed by: Alice Ortiz CC: Technologist: Andres Arguelles Date/Time/By: 07/12/2018 (0006) : By: [facility]AD[facility] PAGE 1 Signed Report [place]: St: PRE Name: PAVEL FRANCO : 1990 Age/S: 27/F [address] Unit #: [id number] Loc: [place] [address] Phys: Kathleen Napoles MD Acct: [id number] Dis Date: Status: PRE ER PHONE #: [phone] Exam Date: 07/11/2018 6136 FAX #: [phone] Reason: AMS EXAMS: CPT CODE: [id number] XR CHEST 1 V 52913 (Continued) Orig Print D/T: S: 07/12/2018 (0009) PAGE 2 Signed ReportTROPONIN I [id number] 23:53:00 Test Item Value Reference Range Interpretation Comments TROPONIN I RAPID 0.00 ng/mL 0.00-0.079 N ISTAT TROP ONIN I (test code = CRITERIA0.00-0. 08 ng/mL - TROPIRAP) Negative>0.08 n g/mL - Positive The us [...] similar methodology is used. POC ARTERIAL BLOOD [id number] 23:30:00 Test Item Value Reference Range Interpretation Comments POC ARTERIAL BLOOD GAS PH (test 7.410 7.35-7.45 N code = POCPHA) POC ARTERIAL BLOOD GAS PCO2 (test 32.8 mmHg 35-45 L code = [id number]) POC ARTERIAL BLOOD GAS PO2 (test 108 mmHg 80-90 H code = MLUVK4Q) POC HCO3 ARTERIAL (test code = 20.8 mmol/L 22.0-24.0 L IMKLJB9M) POC BASE EXCESS (test code = -4 mmol/L -2.0-2.0 L POCBEA) POC O2 SATURATION (test code = 98 % 95-98 N POCO2S) ABG DELIVERY (test code = CANDICE) Room Air ABG SITE (test code = SITEA) R Rad ALLENS TEST (test code = ALLENS) Pass CHEM [id number] 14:59:00 Test Item Value Reference Range Interpretation Comments eGFR (test code = eGFR) 109 [facility] [id number] 14:59:00 Test Item Value Reference Range Interpretation Comments Alk Phos (test code = Alk Phos) 87 39-136 [facility] [id number] 14:59:00 Test Item Value Reference Range Interpretation Comments Bili Total (test code = Bili Total) 0.4 0.2-1.3 [facility]2019-01-17 14:59:00 Test Item Value Reference Range Interpretation Comments AST (test code = AST) 12 See_Comment [Auto mated message] The system which ge nerated this result transmit owen reference range : <=37. The reference range was not used to interpr et this result as fredi l/abnormal. [facility]entonMiFi [id number] 14:59:00 Test Item Value Reference Range Interpretation Comments Calcium Lvl (test code = Calcium Lvl) 9.1 8.5-10.5 [facility]2019-01-17 14:59:00 Test Item Value Reference Range Interpretation Comments ALT (test code = ALT) 21 See_Comment [Auto mated message] The system which ge nerated this result transmit owen reference range : <=65. The reference range was not used to interpr et this result as fredi l/abnormal. [facility] [id number] 14:59:00 Test Item Value Reference Range Interpretation Comments Albumin Lvl (test code = Albumin Lvl) 3.7 3.5-5.0 [facility] [id number] 14:59:00 Test Item Value Reference Range Interpretation Comments Total Protein (test code = Total 7.4 6.4-8.4 Protein) [facility]2019-01-17 14:59:00 Test Item Value Reference Range Interpretation Comments Creatinine Lvl (test code = Creatinine 0.75 0.50-1.40 Lvl) [facility] [id number] 14:59:00 Test Item Value Reference Range Interpretation Comments BUN (test code = BUN) 15 7-22 [facility]2019-01-17 14:59:00 Test Item Value Reference Range Interpretation Comments Potassium Lvl (test code = Potassium 4.5 3.5-5.1 Lvl) [facility]2019-01-17 14:59:00 Test Item Value Reference Range Interpretation Comments Sodium Lvl (test code = Sodium Lvl) 132 135-145 [facility]2019-01-17 14:59:00 Test Item Value Reference Range Interpretation Comments CO2 (test code = CO2) 20 24-32 [facility]2019-01-17 14:59:00 Test Item Value Reference Range Interpretation Comments Chloride Lvl (test code = Chloride Lvl) 103 95-109 [facility]2019-01-17 14:59:00 Test Item Value Reference Range Interpretation Comments Glucose Lvl (test code = Glucose Lvl) 388 70-99 [facility]2019-01-17 14:59:00 Test Item Value Reference Range Interpretation Comments A/G Ratio (test code = A/G Ratio) 1.0 1 0.7-1.6 [facility]2019-01-17 14:59:00 Test Item Value Reference Range Interpretation Comments Globulin (test code = Globulin) 3.7 2.7-4.2 [facility]2019-01-17 14:59:00 Test Item Value Reference Range Interpretation Comments B/C Ratio (test code = B/C Ratio) 20 1 6-25 [facility]2019-01-17 14:59:00 Test Item Value Reference Range Interpretation Comments AGAP (test code = AGAP) 13.5 10.0-20.0 [id number] 14:59:00 Test Item Value Reference Range Interpretation Comments S Preg (test code = S Negative *NA*(06/03/18 Preg) 8:59 AM) [facility] [id number] 14:59:00 Test Item Value Reference Range Interpretation Comments MPV (test code = MPV) 9.1 7.4-10.4 [facility] IrvingHtcsttyPCSLXWVPCG0934-63-51 14:59:00 Test Item Value Reference Range Interpretation Comments RDW (test code = RDW) 11.9 11.5-14.5 [facility] IrvingBjvfuolIVIPAJWFCR5514-40-43 14:59:00 Test Item Value Reference Range Interpretation Comments MCHC (test code = MCHC) 34.6 32.0-36.0 [facility] IrvingBfqrdzfWUOTOJEYVV6709-84-98 14:59:00 Test Item Value Reference Range Interpretation Comments Platelet (test code = Platelet) 216 133-450 [facility] IrvingYnilqshPIDQGFHVTW9756-99-70 14:59:00 Test Item Value Reference Range Interpretation Comments RBC (test code = RBC) 4.03 4.20-5.40 [facility] IrvingJacxrkbNZTQSYUPWY8050-00-92 14:59:00 Test Item Value Reference Range Interpretation Comments WBC (test code = WBC) 5.8 3.7-10.4 [facility] IrvingUzuscqzCIYQJUPCUK3212-71-20 14:59:00 Test Item Value Reference Range Interpretation Comments Hgb (test code = Hgb) 14.2 12.0-16.0 [facility] IrvingMnldujoBGINJDXWLJ9415-58-82 14:59:00 Test Item Value Reference Range Interpretation Comments Hct (test code = Hct) 40.9 36.0-48.0 [facility] IrvingXxpxauqBKHHVMCAEH8330-12-84 14:59:00 Test Item Value Reference Range Interpretation Comments MCH (test code = MCH) 35.1 pg 27.0-31.0 [facility] IrvingXwumsaaZULNZTZVNF3572-16-71 14:59:00 Test Item Value Reference Range Interpretation Comments MCV (test code = MCV) 101.5 80.0-98.0 [facility] IrvingLdtyteiWJTOHFGFPO8442-06-95 14:59:00 Test Item Value Reference Range Interpretation Comments Segs (test code = Segs) 50.9 45.0-75.0 [facility] [id number] 14:59:00 Test Item Value Reference Range Interpretation Comments Lymphocytes (test code = Lymphocytes) 31.2 20.0-40.0 [facility] IrvingYfhmbhqLJDMRRBAYU6268-46-03 14:59:00 Test Item Value Reference Range Interpretation Comments Monocytes (test code = Monocytes) 6.0 2.0-12.0 [facility] IrvingBuboifeUGRZTQAJRL6455-56-55 14:59:00 Test Item Value Reference Range Interpretation Comments Basophils (test code = 1.4 See_Comment [Aut omated message] The Basophils) system which ge nerated this result tra nsmitted reference range : <=1.0. The reference r jase was not used to int erpret this result as normal/abnormal . [facility] IrvingVcahlthVUTLFKNZAS4819-80-58 14:59:00 Test Item Value Reference Range Interpretation Comments Eosinophils (test code = 10.5 See_Comment [A utomated message] The Eosinophils) system which ge nerated this result tra nsmitted reference range : <=4.0. The reference r jase was not used to int erpret this result as normal/abnormal . [facility] IrvingPmrxnrjHPUXQFZVUC3736-25-33 14:59:00 Test Item Value Reference Range Interpretation Comments Macrocyte (test code = 1+ *ABN*(06/03/18 Macrocyte) 8:59 AM) [facility] IrvingVrfcpndURRAQQHKYB3917-00-95 14:59:00 Test Item Value Reference Range Interpretation Comments Eosinophils # (test code 0.6 See_Comment [A utomated message] The = Eosinophils #) system whic h generated this result tra nsmitted reference range : <=0.5. The reference r jase was not used to int erpret this result as normal/abnormal . [facility] IrvingMsakncxLLNCLLDXRM1788-88-43 14:59:00 Test Item Value Reference Range Interpretation Comments Neutrophils # (test code = Neutrophils 3.0 1.5-8.1 #) [facility] IrvingBlpgcsoFGHDWTSCYX8849-11-62 14:59:00 Test Item Value Reference Range Interpretation Comments Monocytes # (test code 0.3 See_Comment [Aut omated message] The = Monocytes #) system which generated this result tra nsmitted reference range : <=0.8. The reference r jase was not used to int erpret this result as normal/abnormal . [facility] IrvingWkynmqdQPVORKSFED6137-68-20 14:59:00 Test Item Value Reference Range Interpretation Comments Lymphocytes # (test code = Lymphocytes 1.8 1.0-5.5 #) [facility] IrvingDayspofEYVQVTYGLO1869-32-60 14:59:00 Test Item Value Reference Range Interpretation Comments Basophils # (test code 0.1 See_Comment [Aut omated message] The = Basophils #) system which generated this result tra nsmitted reference range : <=0.2. The reference r jase was not used to int erpret this result as normal/abnormal . [facility] AND [id number] 10:05:00 Test Item Value Reference Range Interpretation Comments UA WBC (test code = no gt See_Comment [Automa owen message] The UA WBC) system which ge nerated this result transmit owen reference range : <=5. The reference range was not used to interpr et this result as fredi l/abnormal. [facility] AND [id number] 10:05:00 Test Item Value Reference Range Interpretation Comments UA RBC (test code = 1 See_Comment [Automa owen message] The UA RBC) system which ge nerated this result transmit owen reference range : <=2. The reference range was not used to interpr et this result as fredi l/abnormal. [facility] AND [id number] 10:05:00 Test Item Value Reference Range Interpretation Comments UA Sq Epi (test code = UA Sq Occasional /LPF Epi) [facility] AND [id number] 10:05:00 Test Item Value Reference Range Interpretation Comments UA Bacteria (test code = UA Occasional /HPF Bacteria) [facility] AND [id number] 10:05:00 Test Item Value Reference Range Interpretation Comments UA Blood (test code = Negative (04/02/18 4:05 UA Blood) AM) [facility] AND [id number] 10:05:00 Test Item Value Reference Range Interpretation Comments UA Bili (test code = Negative *NA*(04/02/18 UA Bili) 4:05 AM) [facility] AND [id number] 10:05:00 Test Item Value Reference Range Interpretation Comments UA Protein (test code Negative (04/02/18 4:05 = UA Protein) AM) [facility] AND [id number] 10:05:00 Test Item Value Reference Range Interpretation Comments UA Ketones (test code Negative *NA*(04/02/18 = UA Ketones) 4:05 AM) [facility] AND [id number] 10:05:00 Test Item Value Reference Range Interpretation Comments UA Glucose (test code = UA >=1000 mg/dL Glucose) [facility] AND [id number] 10:05:00 Test Item Value Reference Range Interpretation Comments UA Nitrite (test code Negative (04/02/18 4:05 = UA Nitrite) AM) [facility] AND [id number] 10:05:00 Test Item Value Reference Range Interpretation Comments UA Urobilinogen (test code = UA 0.2 0.1-1.0 Urobilinogen) [facility] AND [id number] 10:05:00 Test Item Value Reference Range Interpretation Comments UA Leuk Est (test Negative (04/02/18 4:05 code = UA Leuk Est) AM) [facility] AND [id number] 10:05:00 Test Item Value Reference Range Interpretation Comments UA pH (test code = UA pH) 6.5 1 5.0-8.0 [facility] AND [id number] 10:05:00 Test Item Value Reference Range Interpretation Comments UA Spec Grav (test *NA*(04/02/18 4:05 AM) code = UA Spec Grav) [facility] AND [id number] 10:05:00 Test Item Value Reference Range Interpretation Comments UA Color (test code = UA Color) STRAW [facility] AND [id number] 10:05:00 Test Item Value Reference Range Interpretation Comments UA Turbidity (test code = Clear (04/02/18 4:05 UA Turbidity) AM) [facility]2018-11-16 09:39:00 Test Item Value Reference Range Interpretation Comments Calcium Lvl (test code = Calcium Lvl) 7.9 8.5-10.5 [facility]2018-11-16 09:39:00 Test Item Value Reference Range Interpretation Comments Potassium Lvl (test code = Potassium 5.4 3.5-5.1 Lvl) [facility]2018-11-16 09:39:00 Test Item Value Reference Range Interpretation Comments Chloride Lvl (test code = Chloride Lvl) 101 95-109 [facility]2018-11-16 09:39:00 Test Item Value Reference Range Interpretation Comments CO2 (test code = CO2) 23 24-32 [facility]2018-11-16 09:39:00 Test Item Value Reference Range Interpretation Comments AGAP (test code = AGAP) 13.4 10.0-20.0 [facility]2018-11-16 09:39:00 Test Item Value Reference Range Interpretation Comments B/C Ratio (test code = B/C Ratio) 7 1 6-25 [place] [id number] 09:39:00 Test Item Value Reference Range Interpretation Comments Total Protein (test code = Total 6.8 6.4-8.4 Protein) [facility]2018-11-16 09:39:00 Test Item Value Reference Range Interpretation Comments Albumin Lvl (test code = Albumin Lvl) 3.7 3.5-5.0 [place] [id number] 09:39:00 Test Item Value Reference Range Interpretation Comments Globulin (test code = Globulin) 3.1 2.7-4.2 [place] [id number] 09:39:00 Test Item Value Reference Range Interpretation Comments Sodium Lvl (test code = Sodium Lvl) 132 135-145 [facility]2018-11-16 09:39:00 Test Item Value Reference Range Interpretation Comments BUN (test code = BUN) 7 7-22 [facility]2018-11-16 09:39:00 Test Item Value Reference Range Interpretation Comments Glucose Lvl (test code = Glucose Lvl) 739 70-99 [place] [id number] 09:39:00 Test Item Value Reference Range Interpretation Comments Creatinine Lvl (test code = Creatinine 0.99 0.50-1.40 Lvl) [facility]2018-11-16 09:39:00 Test Item Value Reference Range Interpretation Comments A/G Ratio (test code = A/G Ratio) 1.2 1 0.7-1.6 [place] 930778-11-16 09:39:00 Test Item Value Reference Range Interpretation Comments ALT (test code = ALT) 23 See_Comment [Auto mated message] The system which ge nerated this result transmit owen reference range : <=65. The reference range was not used to interpr et this result as fredi l/abnormal. [place] 930778-11-16 09:39:00 Test Item Value Reference Range Interpretation Comments AST (test code = AST) 20 See_Comment [Auto mated message] The system which ge nerated this result transmit owen reference range : <=37. The reference range was not used to interpr et this result as fredi l/abnormal. [place] 930778-11-16 09:39:00 Test Item Value Reference Range Interpretation Comments Alk Phos (test code = Alk Phos) 82 39-136 [facility]2018-11-16 09:39:00 Test Item Value Reference Range Interpretation Comments Bili Total (test code = Bili Total) 0.2 0.2-1.3 [facility]2018-11-16 09:39:00 Test Item Value Reference Range Interpretation Comments eGFR (test code = eGFR) 79 [facility]2018-11-16 09:39:00 Test Item Value Reference Range Interpretation Comments Magnesium Lvl (test code = Magnesium 2.0 1.8-2.4 Lvl) [facility]2018-11-16 09:39:00 Test Item Value Reference Range Interpretation Comments Ketone Quantitative (test code = Ketone 0.28 Quantitative) [place] 245188-11-16 09:39:00 Test Item Value Reference Range Interpretation Comments S Preg (test code = S Negative *NA*(04/02/18 Preg) 3:39 AM) [facility] IrvingEiitqbiRVMYNEBOWL1665-00-03 09:39:00 Test Item Value Reference Range Interpretation Comments Eosinophils # (test code 0.3 See_Comment [A utomated message] The = Eosinophils #) system whic h generated this result tra nsmitted reference range : <=0.5. The reference r jase was not used to int erpret this result as normal/abnormal . [facility] IrvingVcjzkroCLQGOQQGXI7195-84-63 09:39:00 Test Item Value Reference Range Interpretation Comments Basophils # (test code 0.1 See_Comment [Aut omated message] The = Basophils #) system which generated this result tra nsmitted reference range : <=0.2. The reference r jase was not used to int erpret this result as normal/abnormal . [facility] IrvingDtxzavcMZPHTFIZHN2536-20-77 09:39:00 Test Item Value Reference Range Interpretation Comments Macrocyte (test code = 2+ *ABN*(04/02/18 Macrocyte) 3:39 AM) [facility] IrvingMlirpjbEBEOHCFETX3557-20-40 09:39:00 Test Item Value Reference Range Interpretation Comments Monocytes (test code = Monocytes) 6.8 2.0-12.0 [facility] IrvingJujkxmaTKOCFCKZNJ8950-41-77 09:39:00 Test Item Value Reference Range Interpretation Comments Eosinophils (test code = 6.9 See_Comment [A utomated message] The Eosinophils) system which ge nerated this result tra nsmitted reference range : <=4.0. The reference r jase was not used to int erpret this result as normal/abnormal . [facility] IrvingZbqgvfwGRZVKWBKZK1773-21-02 09:39:00 Test Item Value Reference Range Interpretation Comments Neutrophils # (test code = Neutrophils 1.6 1.5-8.1 #) [facility] IrvingOpuqhvpFNCHMBUFJY2770-00-05 09:39:00 Test Item Value Reference Range Interpretation Comments Basophils (test code = 1.9 See_Comment [Aut omated message] The Basophils) system which ge nerated this result tra nsmitted reference range : <=1.0. The reference r jase was not used to int erpret this result as normal/abnormal . [facility] IrvingNebubnuLMCGJSLKEJ0796-67-72 09:39:00 Test Item Value Reference Range Interpretation Comments Lymphocytes # (test code = Lymphocytes 1.9 1.0-5.5 #) [facility] IrvingJxjbxltFMWKARMNOP4185-53-65 09:39:00 Test Item Value Reference Range Interpretation Comments Monocytes # (test code 0.3 See_Comment [Aut omated message] The = Monocytes #) system which generated this result tra nsmitted reference range : <=0.8. The reference r jase was not used to int erpret this result as normal/abnormal . [facility] IrvingUjmrzruPEYLQACEDY0869-62-66 09:39:00 Test Item Value Reference Range Interpretation Comments Segs (test code = Segs) 38.3 45.0-75.0 [facility] IrvingWihsloaWAAHVPJOSZ0509-40-10 09:39:00 Test Item Value Reference Range Interpretation Comments Lymphocytes (test code = Lymphocytes) 46.1 20.0-40.0 [facility] IrvingWbjfxxuWMJQJDZZRM5401-89-84 09:39:00 Test Item Value Reference Range Interpretation Comments MCV (test code = MCV) 105.0 80.0-98.0 [facility] IrvingUbfffugCAXKFFBIUX7841-41-98 09:39:00 Test Item Value Reference Range Interpretation Comments RDW (test code = RDW) 13.0 11.5-14.5 [facility] IrvingRrzauakDXSONVYZZT2213-91-13 09:39:00 Test Item Value Reference Range Interpretation Comments MPV (test code = MPV) 8.5 7.4-10.4 [facility] IrvingRljrtkgOQSLOPGVYV3272-00-61 09:39:00 Test Item Value Reference Range Interpretation Comments Platelet (test code = Platelet) 259 133-450 [facility] IrvingTsszdggNECQVFMZPE7366-85-47 09:39:00 Test Item Value Reference Range Interpretation Comments MCH (test code = MCH) 35.2 pg 27.0-31.0 [facility] IrvingUawferaECBDCIUPEY4328-79-91 09:39:00 Test Item Value Reference Range Interpretation Comments MCHC (test code = MCHC) 33.5 32.0-36.0 [facility] IrvingEedewbjYZGPBBYHRC3490-29-18 09:39:00 Test Item Value Reference Range Interpretation Comments Hgb (test code = Hgb) 13.4 12.0-16.0 [facility] IrvingPnfxwzdKUWUMMOZHF4790-03-80 09:39:00 Test Item Value Reference Range Interpretation Comments Hct (test code = Hct) 39.9 36.0-48.0 [facility] IrvingCoeakneXPOXKRRGEM1921-89-18 09:39:00 Test Item Value Reference Range Interpretation Comments RBC (test code = RBC) 3.80 4.20-5.40 [facility] IrvingObzollsXVWKZCPFTC1317-66-20 09:39:00 Test Item Value Reference Range Interpretation Comments WBC (test code = WBC) 4.1 3.7-10.4 [place] 78017018-11-16 09:39:00 Test Item Value Reference Range Interpretation Comments Etoh (%) (test code = Etoh (%)) 0.212 [place] 78017018-11-16 09:39:00 Test Item Value Reference Range Interpretation Comments Ethanol Lvl (test code = Ethanol Lvl) 212 [facility]2018-10-16 09:14:00 Test Item Value Reference Range Interpretation Comments Lipase Lvl (test code = Lipase Lvl) 145 73-393 [facility]2018-10-16 09:14:00 Test Item Value Reference Range Interpretation Comments eGFR (test code = eGFR) 116 [facility]2018-10-16 09:14:00 Test Item Value Reference Range Interpretation Comments Alk Phos (test code = Alk Phos) 94 39-136 [facility]2018-10-16 09:14:00 Test Item Value Reference Range Interpretation Comments Bili Total (test code = Bili Total) 0.3 0.2-1.3 [facility]2018-10-16 09:14:00 Test Item Value Reference Range Interpretation Comments Total Protein (test code = Total 7.3 6.4-8.4 Protein) [facility]2018-10-16 09:14:00 Test Item Value Reference Range Interpretation Comments Albumin Lvl (test code = Albumin Lvl) 3.8 3.5-5.0 [place] 930778-10-16 09:14:00 Test Item Value Reference Range Interpretation Comments A/G Ratio (test code = A/G Ratio) 1.1 1 0.7-1.6 [place] 930778-10-16 09:14:00 Test Item Value Reference Range Interpretation Comments Globulin (test code = Globulin) 3.5 2.7-4.2 [place] 930778-10-16 09:14:00 Test Item Value Reference Range Interpretation Comments ALT (test code = ALT) 18 See_Comment [Auto mated message] The system which ge nerated this result transmit owen reference range : <=65. The reference range was not used to interpr et this result as fredi l/abnormal. [facility]2018-10-16 09:14:00 Test Item Value Reference Range Interpretation Comments AST (test code = AST) 10 See_Comment [Auto mated message] The system which ge nerated this result transmit owen reference range : <=37. The reference range was not used to interpr et this result as fredi l/abnormal. [facility]2018-10-16 09:14:00 Test Item Value Reference Range Interpretation Comments Glucose Lvl (test code = Glucose Lvl) 34 70-99 [place] 930778-10-16 09:14:00 Test Item Value Reference Range Interpretation Comments Creatinine Lvl (test code = Creatinine 0.71 0.50-1.40 Lvl) [facility]2018-10-16 09:14:00 Test Item Value Reference Range Interpretation Comments Potassium Lvl (test code = Potassium 3.4 3.5-5.1 Lvl) [place] 930778-10-16 09:14:00 Test Item Value Reference Range Interpretation Comments BUN (test code = BUN) 10 7-22 [facility]2018-10-16 09:14:00 Test Item Value Reference Range Interpretation Comments Sodium Lvl (test code = Sodium Lvl) 139 135-145 [facility]2018-10-16 09:14:00 Test Item Value Reference Range Interpretation Comments Chloride Lvl (test code = Chloride Lvl) 105 95-109 [facility]2018-10-16 09:14:00 Test Item Value Reference Range Interpretation Comments CO2 (test code = CO2) 27 24-32 [facility]2018-10-16 09:14:00 Test Item Value Reference Range Interpretation Comments AGAP (test code = AGAP) 10.4 10.0-20.0 [facility]2018-10-16 09:14:00 Test Item Value Reference Range Interpretation Comments Calcium Lvl (test code = Calcium Lvl) 9.2 8.5-10.5 [facility]2018-10-16 09:14:00 Test Item Value Reference Range Interpretation Comments B/C Ratio (test code = B/C Ratio) 14 1 6-25 [facility] IrvingAtkgchnKEMRBXWJTT3725-24-46 09:14:00 Test Item Value Reference Range Interpretation Comments Eosinophils # (test code 0.7 See_Comment [A utomated message] The = Eosinophils #) system whic h generated this result tra nsmitted reference range : <=0.5. The reference r jase was not used to int erpret this result as normal/abnormal . [facility] IrvingZbfesqfIPIWWIKUFT2905-48-24 09:14:00 Test Item Value Reference Range Interpretation Comments Monocytes # (test code 0.6 See_Comment [Aut omated message] The = Monocytes #) system which generated this result tra nsmitted reference range : <=0.8. The reference r jase was not used to int erpret this result as normal/abnormal . [facility] IrvingApltntiWRMSFXGSQN5710-43-86 09:14:00 Test Item Value Reference Range Interpretation Comments Lymphocytes # (test code = Lymphocytes 2.4 1.0-5.5 #) [facility] IrvingPndymhwOXRHOICZOW4075-59-87 09:14:00 Test Item Value Reference Range Interpretation Comments Basophils (test code = 1.0 See_Comment [Aut omated message] The Basophils) system which ge nerated this result tra nsmitted reference range : <=1.0. The reference r jase was not used to int erpret this result as normal/abnormal . [facility] IrvingFgfvdstQQPRCMDADL7607-67-43 09:14:00 Test Item Value Reference Range Interpretation Comments Neutrophils # (test code = Neutrophils 5.1 1.5-8.1 #) [facility] IrvingFrjtiwnKMTENPMGVF4838-38-09 09:14:00 Test Item Value Reference Range Interpretation Comments Eosinophils (test code = 7.9 See_Comment [A utomated message] The Eosinophils) system which ge nerated this result tra nsmitted reference range : <=4.0. The reference r jase was not used to int erpret this result as normal/abnormal . [facility] IrvingRnyifjqLHLNMPIRIC1000-65-98 09:14:00 Test Item Value Reference Range Interpretation Comments Monocytes (test code = Monocytes) 6.9 2.0-12.0 [facility] IrvingPjclupiPCLQHWJLLE9377-84-45 09:14:00 Test Item Value Reference Range Interpretation Comments Lymphocytes (test code = Lymphocytes) 27.3 20.0-40.0 [facility] IrvingOndvaynLESXLWENXI7492-13-00 09:14:00 Test Item Value Reference Range Interpretation Comments Macrocyte (test code = 1+ *ABN*(03/02/18 Macrocyte) 4:14 AM) [facility] IrvingPmxhtfsGUBDWAZCFB3954-42-03 09:14:00 Test Item Value Reference Range Interpretation Comments Basophils # (test code 0.1 See_Comment [Aut omated message] The = Basophils #) system which generated this result tra nsmitted reference range : <=0.2. The reference r jase was not used to int erpret this result as normal/abnormal . [facility] IrvingNnmojdqFGUIJIHMKG5242-52-72 09:14:00 Test Item Value Reference Range Interpretation Comments Segs (test code = Segs) 56.9 45.0-75.0 [facility] IrvingYgkbtssOCNIIJWQBU6275-06-31 09:14:00 Test Item Value Reference Range Interpretation Comments RDW (test code = RDW) 12.1 11.5-14.5 [facility] IrvingVkbnoujHQPWYXMHQY4860-73-93 09:14:00 Test Item Value Reference Range Interpretation Comments MCV (test code = MCV) 100.2 80.0-98.0 [place] 730608-10-16 09:14:00 Test Item Value Reference Range Interpretation Comments MCH (test code = MCH) 35.0 pg 27.0-31.0 [facility] IrvingYnfmlchXXKXGEQMRA7929-17-28 09:14:00 Test Item Value Reference Range Interpretation Comments Platelet (test code = Platelet) 342 133-450 [facility] IrvingSvfjflnGXVXIXZRKD2330-56-32 09:14:00 Test Item Value Reference Range Interpretation Comments MCHC (test code = MCHC) 35.0 32.0-36.0 [facility] IrvingBmqnqfdXGYYMWZFJG2218-85-60 09:14:00 Test Item Value Reference Range Interpretation Comments Hgb (test code = Hgb) 13.6 12.0-16.0 [facility] IrvingAmggridROHNBGVCRF3734-05-46 09:14:00 Test Item Value Reference Range Interpretation Comments WBC (test code = WBC) 8.9 3.7-10.4 [facility] IrvingAnkbcyvUFZUKPYEKB9112-39-88 09:14:00 Test Item Value Reference Range Interpretation Comments Hct (test code = Hct) 38.8 36.0-48.0 [facility] IrvingDpacgyyTPQHXUXCMC7408-38-79 09:14:00 Test Item Value Reference Range Interpretation Comments RBC (test code = RBC) 3.87 4.20-5.40 [facility] IrvingChcxrcmANHZTBTUAC9478-17-47 09:14:00 Test Item Value Reference Range Interpretation Comments MPV (test code = MPV) 8.4 7.4-10.4 [facility]2018-10-16 09:14:00 Test Item Value Reference Range Interpretation Comments UA WBC (test code = 2 See_Comment [Automa owen message] The UA WBC) system which ge nerated this result transmit owen reference range : <=5. The reference range was not used to interpr et this result as fredi l/abnormal. [facility] AND [id number] 09:14:00 Test Item Value Reference Range Interpretation Comments UA Leuk Est (test Negative (03/02/18 4:14 code = UA Leuk Est) AM) [facility] AND [id number] 09:14:00 Test Item Value Reference Range Interpretation Comments UA Nitrite (test code Negative (03/02/18 4:14 = UA Nitrite) AM) [facility] AND [id number] 09:14:00 Test Item Value Reference Range Interpretation Comments UA Blood (test code = Negative (03/02/18 4:14 UA Blood) AM) [facility] AND [id number] 09:14:00 Test Item Value Reference Range Interpretation Comments UA Bili (test code = Negative *NA*(03/02/18 UA Bili) 4:14 AM) [facility] AND [id number] 09:14:00 Test Item Value Reference Range Interpretation Comments UA Glucose (test code = UA Glucose) 500 mg/dL [facility] AND [id number] 09:14:00 Test Item Value Reference Range Interpretation Comments UA Protein (test code = UA Protein) 100 mg/dL [facility] AND [id number] 09:14:00 Test Item Value Reference Range Interpretation Comments UA pH (test code = UA pH) 7.0 1 5.0-8.0 [facility] AND [id number] 09:14:00 Test Item Value Reference Range Interpretation Comments UA Spec Grav (test code = UA Spec 1.016 1 Grav) [facility] AND [id number] 09:14:00 Test Item Value Reference Range Interpretation Comments UA Turbidity (test code = Clear (03/02/18 4:14 UA Turbidity) AM) [facility] AND [id number] 09:14:00 Test Item Value Reference Range Interpretation Comments UA Sq Epi (test code = UA Sq Epi) Few /LPF [facility] AND [id number] 09:14:00 Test Item Value Reference Range Interpretation Comments UA RBC (test code = 1 See_Comment [Automa owen message] The UA RBC) system which ge nerated this result transmit owen reference range : <=2. The reference range was not used to interpr et this result as fredi l/abnormal. [facility] AND [id number] 09:14:00 Test Item Value Reference Range Interpretation Comments UA Urobilinogen (test code = UA <=1.0 mg/dL 0.1-1.0 Urobilinogen) [facility] AND [id number] 09:14:00 Test Item Value Reference Range Interpretation Comments UA Hyal Cast (test 1 See_Comment [Automat ed message] The code = UA Hyal Cast) system which generated this result transmit owen reference range : <=2. The reference range was not used to interpr et this result as fredi l/abnormal. [facility] AND [id number] 09:14:00 Test Item Value Reference Range Interpretation Comments UA Mucus (test code = UA Mucus) Few /LPF [facility] AND [id number] 09:14:00 Test Item Value Reference Range Interpretation Comments UA Ketones (test code = UA Negative mg/dL Ketones) [facility] AND [id number] 09:14:00 Test Item Value Reference Range Interpretation Comments UA Color (test code = Yellow *NA*(03/02/18 UA Color) 4:14 AM) [facility] AND [id number] 22:07:00 Test Item Value Reference Range Interpretation Comments UA Urobilinogen (test code = UA <=1.0 mg/dL 0.1-1.0 Urobilinogen) [facility] AND [id number] 22:07:00 Test Item Value Reference Range Interpretation Comments UA Blood (test code = Small *ABN*(02/03/18 UA Blood) 5:07 PM) [facility] AND [id number] 22:07:00 Test Item Value Reference Range Interpretation Comments UA Leuk Est (test Negative (02/03/18 5:07 code = UA Leuk Est) PM) [facility] AND [id number] 22:07:00 Test Item Value Reference Range Interpretation Comments UA Sq Epi (test code = UA Sq Occasional /LPF Epi) [facility] AND [id number] 22:07:00 Test Item Value Reference Range Interpretation Comments UA Nitrite (test code Negative (02/03/18 5:07 = UA Nitrite) PM) [facility] AND [id number] 22:07:00 Test Item Value Reference Range Interpretation Comments UA Glucose (test code = UA Glucose) 500 mg/dL [facility] AND [id number] 22:07:00 Test Item Value Reference Range Interpretation Comments UA Ketones (test code = UA Ketones) 80 mg/dL [facility] AND [id number] 22:07:00 Test Item Value Reference Range Interpretation Comments UA Protein (test code = UA Negative mg/dL Protein) [facility] [id number] 22:07:00 Test Item Value Reference Range Interpretation Comments UA Mucus (test code = UA Mucus) Few /LPF [facility] [id number] 22:07:00 Test Item Value Reference Range Interpretation Comments UA RBC (test code = 1 See_Comment [Automa owen message] The UA RBC) system which ge nerated this result transmit owen reference range : <=2. The reference range was not used to interpr et this result as fredi l/abnormal. [facility] [id number] 22:07:00 Test Item Value Reference Range Interpretation Comments UA WBC (test code = 1 See_Comment [Automa owen message] The UA WBC) system which ge nerated this result transmit owen reference range : <=5. The reference range was not used to interpr et this result as fredi l/abnormal. [facility] AND [id number] 22:07:00 Test Item Value Reference Range Interpretation Comments UA Color (test code = Yellow *NA*(02/03/18 UA Color) 5:07 PM) [facility] AND [id number] 22:07:00 Test Item Value Reference Range Interpretation Comments UA Bili (test code = Negative *NA*(02/03/18 UA Bili) 5:07 PM) [facility] [id number] 22:07:00 Test Item Value Reference Range Interpretation Comments UA pH (test code = UA pH) 5.0 1 5.0-8.0 [facility] AND [id number] 22:07:00 Test Item Value Reference Range Interpretation Comments UA Turbidity (test code = Clear (02/03/18 5:07 UA Turbidity) PM) [facility] AND [id number] 22:07:00 Test Item Value Reference Range Interpretation Comments UA Spec Grav (test code = UA Spec 1.031 1 Grav) [facility]CHE[facility] [id number] 21:52:00 Test Item Value Reference Range Interpretation Comments Total Protein (test code = Total 6.5 6.4-8.4 Protein) [facility]CHE[facility] [id number] 21:52:00 Test Item Value Reference Range Interpretation Comments AST (test code = AST) 17 See_Comment [Auto mated message] The system which ge nerated this result transmit owen reference range : <=37. The reference range was not used to interpr et this result as fredi l/abnormal. [facility]2018-09-19 21:52:00 Test Item Value Reference Range Interpretation Comments ALT (test code = ALT) 24 See_Comment [Auto mated message] The system which ge nerated this result transmit owen reference range : <=65. The reference range was not used to interpr et this result as fredi l/abnormal. [facility]2018-09-19 21:52:00 Test Item Value Reference Range Interpretation Comments Alk Phos (test code = Alk Phos) 107 39-136 [facility]2018-09-19 21:52:00 Test Item Value Reference Range Interpretation Comments Bili Total (test code = Bili Total) 0.5 0.2-1.3 [facility]2018-09-19 21:52:00 Test Item Value Reference Range Interpretation Comments Bili Indirect (test 0.4 See_Comment [Automa owen message] The code = Bili Indirect) system which generated this result tra nsmitted reference range : <=1.0. The reference r jase was not used to int erpret this result as normal/abnormal . [facility]2018-09-19 21:52:00 Test Item Value Reference Range Interpretation Comments Bili Direct (test code 0.1 See_Comment [Aut omated message] The = Bili Direct) system which generated this result tra nsmitted reference range : <=0.3. The reference r jase was not used to int erpret this result as fredi l/abnormal. [facility]2018-09-19 21:52:00 Test Item Value Reference Range Interpretation Comments Albumin Lvl (test code = Albumin Lvl) 3.4 3.5-5.0 [facility]2018-09-19 21:52:00 Test Item Value Reference Range Interpretation Comments Ketone Quantitative (test code = Ketone 2.44 Quantitative) [id number] 21:52:00 Test Item Value Reference Range Interpretation Comments AGAP (test code = AGAP) 15.3 10.0-20.0 [facility]LoirxkkAYKYQVIGEPJN1289-84-68 21:52:00 Test Item Value Reference Range Interpretation Comments eGFR (test code = eGFR) 120 [facility] MichiganHedojkiLNILICOCYEEH2233-19-28 21:52:00 Test Item Value Reference Range Interpretation Comments Creatinine Lvl (test code = Creatinine 0.69 0.50-1.40 Lvl) [facility] [place]AwzdvpbIOTWFGYZUDBL1124-72-44 21:52:00 Test Item Value Reference Range Interpretation Comments Sodium Lvl (test code = Sodium Lvl) 138 135-145 [facility]EyasmqcFHKVYNNUBASY7535-11-84 21:52:00 Test Item Value Reference Range Interpretation Comments Potassium Lvl (test code = Potassium 4.3 3.5-5.1 Lvl) [facility] MichiganCphepirMRBICEOAEJDM3490-47-44 21:52:00 Test Item Value Reference Range Interpretation Comments Chloride Lvl (test code = Chloride Lvl) 105 95-109 [facility] MichiganJvrnjlhEZDVUBHAOYIK9148-67-26 21:52:00 Test Item Value Reference Range Interpretation Comments CO2 (test code = CO2) 22 24-32 [facility] MichiganXcdtqveRTKBLYGLPRFU7174-68-72 21:52:00 Test Item Value Reference Range Interpretation Comments Calcium Lvl (test code = Calcium Lvl) 8.5 8.5-10.5 [facility] MichiganVshmgwqZLDXDCKMXUMC0179-19-52 21:52:00 Test Item Value Reference Range Interpretation Comments BUN (test code = BUN) 12 7-22 [facility] MichiganQdckaglEQQYNYSJFYVP4140-77-83 21:52:00 Test Item Value Reference Range Interpretation Comments Glucose Lvl (test code = Glucose Lvl) 207 70-99 [place] [id number] 21:52:00 Test Item Value Reference Range Interpretation Comments S Preg (test code = S Negative *NA*(02/03/18 Preg) 4:52 PM) [facility] IrvingXbpkaxySNRWTIJJWL8731-03-45 21:52:00 Test Item Value Reference Range Interpretation Comments Basophils # (test code 0.1 See_Comment [Aut omated message] The = Basophils #) system which generated this result tra nsmitted reference range : <=0.2. The reference r jase was not used to int erpret this result as normal/abnormal . [facility] IrvingYpwdbohRKQSNHVNSI0325-42-01 21:52:00 Test Item Value Reference Range Interpretation Comments Macrocyte (test code = 1+ *ABN*(02/03/18 Macrocyte) 4:52 PM) [facility] IrvingHuuhngaMOTBUQQPUW9584-70-19 21:52:00 Test Item Value Reference Range Interpretation Comments Neutrophils # (test code = Neutrophils 3.1 1.5-8.1 #) [facility] IrvingXafissqBKGPKXOAYI9517-40-28 21:52:00 Test Item Value Reference Range Interpretation Comments Basophils (test code = 1.1 See_Comment [Aut omated message] The Basophils) system which ge nerated this result tra nsmitted reference range : <=1.0. The reference r jase was not used to int erpret this result as normal/abnormal . [facility] IrvingRyutrqeTXMRBAYKCS6139-30-91 21:52:00 Test Item Value Reference Range Interpretation Comments Lymphocytes # (test code = Lymphocytes 2.7 1.0-5.5 #) [facility] IrvingPishbqjYHHCXCROJB9898-07-66 21:52:00 Test Item Value Reference Range Interpretation Comments Monocytes # (test code 0.5 See_Comment [Aut omated message] The = Monocytes #) system which generated this result tra nsmitted reference range : <=0.8. The reference r jase was not used to int erpret this result as normal/abnormal . [facility] IrvingBvquipkJFPFILSTQP0560-36-65 21:52:00 Test Item Value Reference Range Interpretation Comments Eosinophils # (test code 0.6 See_Comment [A utomated message] The = Eosinophils #) system whic h generated this result tra nsmitted reference range : <=0.5. The reference r jase was not used to int erpret this result as normal/abnormal . [facility] IrvingIwsykkqUAJFYPGTLT6885-90-66 21:52:00 Test Item Value Reference Range Interpretation Comments Segs (test code = Segs) 45.1 45.0-75.0 [facility] IrvingNeeighiGIPFLFOHSW7098-60-28 21:52:00 Test Item Value Reference Range Interpretation Comments Monocytes (test code = Monocytes) 6.6 2.0-12.0 [facility] IrvingTugybhzGAVEYPVGAA3112-62-71 21:52:00 Test Item Value Reference Range Interpretation Comments Lymphocytes (test code = Lymphocytes) 38.8 20.0-40.0 [facility] IrvingHrigttjUDVRQNWOVT0348-46-53 21:52:00 Test Item Value Reference Range Interpretation Comments Eosinophils (test code = 8.4 See_Comment [A utomated message] The Eosinophils) system which ge nerated this result tra nsmitted reference range : <=4.0. The reference r jase was not used to int erpret this result as normal/abnormal . [facility] IrvingHxipwlcWYSYFSDCKU4619-94-96 21:52:00 Test Item Value Reference Range Interpretation Comments RBC (test code = RBC) 3.87 4.20-5.40 [facility] IrvingFlaztomLHWWTXNJYM1359-33-63 21:52:00 Test Item Value Reference Range Interpretation Comments Hct (test code = Hct) 38.4 36.0-48.0 [facility] IrvingKyvanslRRPLGOYJTL3372-76-27 21:52:00 Test Item Value Reference Range Interpretation Comments Hgb (test code = Hgb) 13.4 12.0-16.0 [facility] IrvingAcuhdfySSRUQCDHXK4354-06-97 21:52:00 Test Item Value Reference Range Interpretation Comments MCV (test code = MCV) 99.3 80.0-98.0 [facility] IrvingUozgxbiBVMNOGTZNM2965-05-51 21:52:00 Test Item Value Reference Range Interpretation Comments Platelet (test code = Platelet) 282 133-450 [facility] IrvingNcozdwoIJDLWGXUSS4066-11-88 21:52:00 Test Item Value Reference Range Interpretation Comments RDW (test code = RDW) 12.7 11.5-14.5 [facility] IrvingOgtkjahAWLMOLLBZJ2243-09-99 21:52:00 Test Item Value Reference Range Interpretation Comments MCHC (test code = MCHC) 34.8 32.0-36.0 [facility] IrvingAtzmqooHNDQDTFCNW5985-81-43 21:52:00 Test Item Value Reference Range Interpretation Comments MCH (test code = MCH) 34.6 pg 27.0-31.0 [facility] IrvingFlebeoiPVHABSDXGX5116-55-01 21:52:00 Test Item Value Reference Range Interpretation Comments MPV (test code = MPV) 8.9 7.4-10.4 [facility] IrvingZfmjrxkKHLFMMFBHG4499-71-58 21:52:00 Test Item Value Reference Range Interpretation Comments WBC (test code = WBC) 6.9 3.7-10.4 [facility]KupmdumMLAFVH5359-84-92 21:52:00 Test Item Value Reference Range Interpretation Comments LDL Direct (test code = LDL Direct) 88 [facility] CenterCxwhgbnOUKJOV1198-82-85 21:52:00 Test Item Value Reference Range Interpretation Comments Chol (test code = Chol) 185 [facility] GilanloSDXIHO1064-67-11 21:52:00 Test Item Value Reference Range Interpretation Comments HDL (test code = HDL) 39 [facility] KphlansGSTMJT1003-66-68 21:52:00 Test Item Value Reference Range Interpretation Comments CHD Risk (test code = CHD Risk) 4.74 1 3.90-5.80 [facility] NlvvrqnUNGZNO6766-75-90 21:52:00 Test Item Value Reference Range Interpretation Comments Trig (test code = Trig) 441 [facility] RceymoqKFLTNR8792-98-50 21:52:00 Test Item Value Reference Range Interpretation Comments VLDL (test code = See Note 2*NA*(02/03/18 VLDL) 4:52 PM) [facility] LnyuenhHDICWQ8198-34-79 21:52:00 Test Item Value Reference Range Interpretation Comments LDL (Calculated) (test code = See Note mg/dL LDL (Calculated)) [facility] IntivixannYeePayIAL BUFHSHFJF2049-61-80 21:52:00 Test Item Value Reference Range Interpretation Comments Hgb A1C (test code = Hgb A1C) 9.4 [facility] IntivixannCHEM [id number] 21:52:00 Test Item Value Reference Range Interpretation Comments A/G Ratio (test code = A/G Ratio) 1.1 1 0.7-1.6 [facility] IntivixannCHEM [id number] 21:52:00 Test Item Value Reference Range Interpretation Comments Globulin (test code = Globulin) 3.1 2.7-4.2 [facility]ivixannCHEM [id number] 20:35:24 Test Item Value Reference Range Interpretation Comments Ketone Quantitative (test code = Ketone 0.79 Quantitative) [facility]ixannCHEM [id number] 20:35:24 Test Item Value Reference Range Interpretation Comments Phosphorus (test code = Phosphorus) 3.4 2.5-4.5 [facility]ixannYeePayIAL JBSBOLQZP7078-47-45 20:35:24 Test Item Value Reference Range Interpretation Comments Hgb A1C (test code = Hgb A1C) 8.8 [facility]ixannCHEM PVZAX7804-09-08 20:35:00 Test Item Value Reference Range Interpretation Comments Magnesium Lvl (test code = Magnesium 1.9 1.8-2.4 Lvl) [facility] [id number] 18:28:00 Test Item Value Reference Range Interpretation Comments UA RBC (test code = no gt See_Comment [Automa owen message] The UA RBC) system which ge nerated this result transmit owen reference range : <=2. The reference range was not used to interpr et this result as fredi l/abnormal. [facility] AND [id number] 18:28:00 Test Item Value Reference Range Interpretation Comments UA Ketones (test code = UA Trace mg/dL Ketones) [facility] AND [id number] 18:28:00 Test Item Value Reference Range Interpretation Comments UA Bili (test code = Negative *NA*(12/21/17 UA Bili) 1:28 PM) [facility] AND [id number] 18:28:00 Test Item Value Reference Range Interpretation Comments UA Blood (test code = Negative (12/21/17 1:28 UA Blood) PM) [facility] AND [id number] 18:28:00 Test Item Value Reference Range Interpretation Comments UA Nitrite (test code Negative (12/21/17 1:28 = UA Nitrite) PM) [facility] AND [id number] 18:28:00 Test Item Value Reference Range Interpretation Comments UA Leuk Est (test Negative (12/21/17 1:28 code = UA Leuk Est) PM) [facility] AND [id number] 18:28:00 Test Item Value Reference Range Interpretation Comments UA Glucose (test code = UA Glucose) 500 mg/dL [facility] AND [id number] 18:28:00 Test Item Value Reference Range Interpretation Comments UA Sq Epi (test code = UA Sq Occasional /LPF Epi) [facility] AND [id number] 18:28:00 Test Item Value Reference Range Interpretation Comments UA WBC (test code = no gt See_Comment [Automa owen message] The UA WBC) system which ge nerated this result transmit owen reference range : <=5. The reference range was not used to interpr et this result as fredi l/abnormal. [facility] AND [id number] 18:28:00 Test Item Value Reference Range Interpretation Comments UA Color (test code = UA Color) Colorless [facility] AND [id number] 18:28:00 Test Item Value Reference Range Interpretation Comments UA Urobilinogen (test code = UA <=1.0 mg/dL 0.1-1.0 Urobilinogen) [facility] [id number] 18:28:00 Test Item Value Reference Range Interpretation Comments UA pH (test code = UA pH) 6.0 1 5.0-8.0 [facility] AND [id number] 18:28:00 Test Item Value Reference Range Interpretation Comments UA Protein (test code = UA Negative mg/dL Protein) [facility] AND [id number] 18:28:00 Test Item Value Reference Range Interpretation Comments UA Turbidity (test code = Clear (12/21/17 1:28 UA Turbidity) PM) [facility] AND [id number] 18:28:00 Test Item Value Reference Range Interpretation Comments UA Spec Grav (test code = UA Spec 1.027 1 Grav) [facility] [id number] 18:28:00 Test Item Value Reference Range Interpretation Comments U Preg (test code = U Negative (12/21/17 1:28 Preg) PM) [facility] [id number] 18:16:00 Test Item Value Reference Range Interpretation Comments eGFR (test code = eGFR) [address] [facility] [id number] 18:16:00 Test Item Value Reference Range Interpretation Comments A/G Ratio (test code = A/G Ratio) 1.1 1 0.7-1.6 [facility]2018-08-06 18:16:00 Test Item Value Reference Range Interpretation Comments ALT (test code = ALT) 24 See_Comment [Auto mated message] The system which ge nerated this result transmit owen reference range : <=65. The reference range was not used to interpr et this result as fredi l/abnormal. [facility]entonMi[facility] [id number] 18:16:00 Test Item Value Reference Range Interpretation Comments Globulin (test code = Globulin) 3.4 2.7-4.2 [facility]2018-08-06 18:16:00 Test Item Value Reference Range Interpretation Comments Bili Total (test code = Bili Total) 0.4 0.2-1.3 [facility]2018-08-06 18:16:00 Test Item Value Reference Range Interpretation Comments Alk Phos (test code = Alk Phos) 84 39-136 [facility]2018-08-06 18:16:00 Test Item Value Reference Range Interpretation Comments AST (test code = AST) 45 See_Comment [Auto mated message] The system which ge nerated this result transmit owen reference range : <=37. The reference range was not used to interpr et this result as fredi l/abnormal. [facility]2018-08-06 18:16:00 Test Item Value Reference Range Interpretation Comments Total Protein (test code = Total 7.0 6.4-8.4 Protein) [facility]2018-08-06 18:16:00 Test Item Value Reference Range Interpretation Comments Potassium Lvl (test code = Potassium 5.1 3.5-5.1 Lvl) [facility]2018-08-06 18:16:00 Test Item Value Reference Range Interpretation Comments B/C Ratio (test code = B/C Ratio) 16 1 6-25 [facility]2018-08-06 18:16:00 Test Item Value Reference Range Interpretation Comments Calcium Lvl (test code = Calcium Lvl) 8.7 8.5-10.5 [facility]2018-08-06 18:16:00 Test Item Value Reference Range Interpretation Comments Albumin Lvl (test code = Albumin Lvl) 3.6 3.5-5.0 [facility]2018-08-06 18:16:00 Test Item Value Reference Range Interpretation Comments CO2 (test code = CO2) 17 24-32 [facility]2018-08-06 18:16:00 Test Item Value Reference Range Interpretation Comments Chloride Lvl (test code = Chloride Lvl) 102 95-109 [facility]2018-08-06 18:16:00 Test Item Value Reference Range Interpretation Comments AGAP (test code = AGAP) 22.1 10.0-20.0 [facility]2018-08-06 18:16:00 Test Item Value Reference Range Interpretation Comments Creatinine Lvl (test code = Creatinine 0.90 0.50-1.40 Lvl) [facility]2018-08-06 18:16:00 Test Item Value Reference Range Interpretation Comments BUN (test code = BUN) 14 7-22 [facility]2018-08-06 18:16:00 Test Item Value Reference Range Interpretation Comments Glucose Lvl (test code = Glucose Lvl) 477 70-99 [facility]2018-08-06 18:16:00 Test Item Value Reference Range Interpretation Comments Sodium Lvl (test code = Sodium Lvl) 136 135-145 [facility] IrvingLejrmpeNUVIPAXRPU6697-61-00 18:16:00 Test Item Value Reference Range Interpretation Comments MCH (test code = MCH) 34.4 pg 27.0-31.0 [facility] IrvingMftxtfkHVEKKERQGE0607-40-08 18:16:00 Test Item Value Reference Range Interpretation Comments MPV (test code = MPV) 9.6 7.4-10.4 [facility] IrvingFbrumgcWXASRUUTMO7371-69-79 18:16:00 Test Item Value Reference Range Interpretation Comments Platelet (test code = Platelet) 262 133-450 [facility] IrvingMnceelcVXDKIAXZRT6494-56-41 18:16:00 Test Item Value Reference Range Interpretation Comments RDW (test code = RDW) 13.1 11.5-14.5 [facility] IrvingDpjxonqCXFSPQXEMD1781-26-35 18:16:00 Test Item Value Reference Range Interpretation Comments MCHC (test code = MCHC) 34.5 32.0-36.0 [facility] IrvingIxoumdoSJMWPTLHLW3953-42-26 18:16:00 Test Item Value Reference Range Interpretation Comments MCV (test code = MCV) 99.9 80.0-98.0 [facility] IrvingXmdlkijOHEUVQUTCM5916-78-28 18:16:00 Test Item Value Reference Range Interpretation Comments Hgb (test code = Hgb) 13.0 12.0-16.0 [facility] IrvingYvwvhzfNXIZQJJDAV0245-98-40 18:16:00 Test Item Value Reference Range Interpretation Comments Hct (test code = Hct) 37.6 36.0-48.0 [facility] IrvingPtcwvfiRARRJBVCLQ5876-50-15 18:16:00 Test Item Value Reference Range Interpretation Comments WBC (test code = WBC) 8.5 3.7-10.4 [facility] IrvingLmjedlcCLHLZPLMQK5011-36-44 18:16:00 Test Item Value Reference Range Interpretation Comments RBC (test code = RBC) 3.77 4.20-5.40 [place] [id number] 18:16:00 Test Item Value Reference Range Interpretation Comments Basophils (test code = 0.5 See_Comment [Aut omated message] The Basophils) system which ge nerated this result tra nsmitted reference range : <=1.0. The reference r jase was not used to int erpret this result as normal/abnormal . [facility] [id number] 18:16:00 Test Item Value Reference Range Interpretation Comments Neutrophils # (test code = Neutrophils 6.2 1.5-8.1 #) [facility] IrvingIkrzltzXMPZTHHIJD5893-51-34 18:16:00 Test Item Value Reference Range Interpretation Comments Monocytes (test code = Monocytes) 6.2 2.0-12.0 [facility] IrvingDfcvbduZUTNRLMCFR9984-05-01 18:16:00 Test Item Value Reference Range Interpretation Comments Eosinophils (test code = 4.2 See_Comment [A utomated message] The Eosinophils) system which ge nerated this result tra nsmitted reference range : <=4.0. The reference r jase was not used to int erpret this result as normal/abnormal . [facility] Irvi[id number] 18:16:00 Test Item Value Reference Range Interpretation Comments Segs (test code = Segs) 73.0 45.0-75.0 [facility] IrvingHgprbrbZHYTYSFJED7260-02-14 18:16:00 Test Item Value Reference Range Interpretation Comments Lymphocytes (test code = Lymphocytes) 16.1 20.0-40.0 [facility] IrvingDjpnxjtYKGEYUPKNN5291-90-25 18:16:00 Test Item Value Reference Range Interpretation Comments Eosinophils # (test code 0.4 See_Comment [A utomated message] The = Eosinophils #) system whic h generated this result tra nsmitted reference range : <=0.5. The reference r jase was not used to int erpret this result as normal/abnormal . [facility] IrvingWjjdnmpOMGLFPFNQR6730-62-18 18:16:00 Test Item Value Reference Range Interpretation Comments Macrocyte (test code = 1+ *ABN*(12/21/17 1:16 Macrocyte) PM) [facility] [id number] 18:16:00 Test Item Value Reference Range Interpretation Comments Lymphocytes # (test code = Lymphocytes 1.4 1.0-5.5 #) [facility] [id number] 18:16:00 Test Item Value Reference Range Interpretation Comments Monocytes # (test code 0.5 See_Comment [Aut omated message] The = Monocytes #) system which generated this result tra nsmitted reference range : <=0.8. The reference r jase was not used to int erpret this result as normal/abnormal . [facility] AND [id number] 05:27:00 Test Item Value Reference Range Interpretation Comments UA Mucus (test code = UA Mucus) Many /LPF [facility] AND [id number] 05:27:00 Test Item Value Reference Range Interpretation Comments UA Bacteria (test code = UA Occasional /HPF Bacteria) [facility] AND [id number] 05:27:00 Test Item Value Reference Range Interpretation Comments UA Leuk Est (test Negative (11/12/17 12:27 code = UA Leuk Est) AM) [facility] AND [id number] 05:27:00 Test Item Value Reference Range Interpretation Comments UA Nitrite (test code Negative (11/12/17 12:27 = UA Nitrite) AM) [facility] AND [id number] 05:27:00 Test Item Value Reference Range Interpretation Comments UA Urobilinogen (test code = UA 2.0 0.1-1.0 Urobilinogen) [facility] AND [id number] 05:27:00 Test Item Value Reference Range Interpretation Comments UA RBC (test code = 1 See_Comment [Automa owen message] The UA RBC) system which ge nerated this result transmit owen reference range : <=2. The reference range was not used to interpr et this result as fredi l/abnormal. [facility] AND [id number] 05:27:00 Test Item Value Reference Range Interpretation Comments UA WBC (test code = 3 See_Comment [Automa owen message] The UA WBC) system which ge nerated this result transmit owen reference range : <=5. The reference range was not used to interpr et this result as fredi l/abnormal. [facility] AND [id number] 05:27:00 Test Item Value Reference Range Interpretation Comments UA Sq Epi (test code = UA Sq Epi) Few /LPF [facility] AND [id number] 05:27:00 Test Item Value Reference Range Interpretation Comments UA Bili (test code = Negative *NA*(11/12/17 UA Bili) 12:27 AM) [facility] AND [id number] 05:27:00 Test Item Value Reference Range Interpretation Comments UA Blood (test code = Negative (11/12/17 12:27 UA Blood) AM) [facility] AND [id number] 05:27:00 Test Item Value Reference Range Interpretation Comments UA Protein (test code = UA Protein) 30 mg/dL [facility] AND [id number] 05:27:00 Test Item Value Reference Range Interpretation Comments UA pH (test code = UA pH) 6.0 1 5.0-8.0 [facility] AND [id number] 05:27:00 Test Item Value Reference Range Interpretation Comments UA Spec Grav (test code = UA Spec 1.026 1 Grav) [facility] AND [id number] 05:27:00 Test Item Value Reference Range Interpretation Comments UA Ketones (test code = UA Ketones) 80 mg/dL [facility] AND [id number] 05:27:00 Test Item Value Reference Range Interpretation Comments UA Glucose (test code = UA Negative mg/dL Glucose) [facility] AND [id number] 05:27:00 Test Item Value Reference Range Interpretation Comments UA Turbidity (test code Slight *ABN*(11/12/17 = UA Turbidity) 12:27 AM) [facility] AND [id number] 05:27:00 Test Item Value Reference Range Interpretation Comments UA Color (test code = Richie *ABN*(11/12/17 UA Color) 12:27 AM) [facility] IrvingLjibfryJPSVYXIHST6292-04-73 02:14:00 Test Item Value Reference Range Interpretation Comments PTT (test code = PTT) 27.2 s 22.9-35.8 [facility] IrvingWrinuzdJFHOILFAOW6553-09-90 02:14:00 Test Item Value Reference Range Interpretation Comments PT (test code = PT) 14.9 s 12.0-14.7 [facility] [id number] 02:14:00 Test Item Value Reference Range Interpretation Comments INR (test code = INR) 1.16 1 0.85-1.17 [facility] IrvingYcobsssVDUOHCDMJH2556-42-20 02:14:00 Test Item Value Reference Range Interpretation Comments D-Dimer (test code = D-Dimer) no gt [facility]2018-06-28 00:19:00 Test Item Value Reference Range Interpretation Comments Ketone Quantitative (test code = Ketone 1.84 Quantitative) [facility]2018-06-28 00:19:00 Test Item Value Reference Range Interpretation Comments A/G Ratio (test code = A/G Ratio) 1.3 1 0.7-1.6 [facility]2018-06-28 00:19:00 Test Item Value Reference Range Interpretation Comments AGAP (test code = AGAP) 16.6 10.0-20.0 [facility]2018-06-28 00:19:00 Test Item Value Reference Range Interpretation Comments B/C Ratio (test code = B/C Ratio) 13 1 6-25 [facility]2018-06-28 00:19:00 Test Item Value Reference Range Interpretation Comments Globulin (test code = Globulin) 3.8 2.7-4.2 [facility]2018-06-28 00:19:00 Test Item Value Reference Range Interpretation Comments eGFR (test code = eGFR) 89 [facility]2018-06-28 00:19:00 Test Item Value Reference Range Interpretation Comments AST (test code = AST) 11 See_Comment [Auto mated message] The system which ge nerated this result transmit owen reference range : <=37. The reference range was not used to interpr et this result as fredi l/abnormal. [facility]2018-06-28 00:19:00 Test Item Value Reference Range Interpretation Comments Alk Phos (test code = Alk Phos) 90 39-136 [facility]2018-06-28 00:19:00 Test Item Value Reference Range Interpretation Comments Bili Total (test code = Bili Total) 1.2 0.2-1.3 [facility]2018-06-28 00:19:00 Test Item Value Reference Range Interpretation Comments Albumin Lvl (test code = Albumin Lvl) 4.8 3.5-5.0 [facility]2018-06-28 00:19:00 Test Item Value Reference Range Interpretation Comments Calcium Lvl (test code = Calcium Lvl) 10.0 8.5-10.5 [facility]2018-06-28 00:19:00 Test Item Value Reference Range Interpretation Comments Total Protein (test code = Total 8.6 6.4-8.4 Protein) [facility]2018-06-28 00:19:00 Test Item Value Reference Range Interpretation Comments ALT (test code = ALT) 22 See_Comment [Auto mated message] The system which ge nerated this result transmit owen reference range : <=65. The reference range was not used to interpr et this result as fredi l/abnormal. [facility]2018-06-28 00:19:00 Test Item Value Reference Range Interpretation Comments Potassium Lvl (test code = Potassium 3.6 3.5-5.1 Lvl) [facility]2018-06-28 00:19:00 Test Item Value Reference Range Interpretation Comments Chloride Lvl (test code = Chloride Lvl) 105 95-109 [facility]2018-06-28 00:19:00 Test Item Value Reference Range Interpretation Comments CO2 (test code = CO2) 19 24-32 [facility]2018-06-28 00:19:00 Test Item Value Reference Range Interpretation Comments Sodium Lvl (test code = Sodium Lvl) 137 135-145 [facility]2018-06-28 00:19:00 Test Item Value Reference Range Interpretation Comments Creatinine Lvl (test code = Creatinine 0.89 0.50-1.40 Lvl) [facility]2018-06-28 00:19:00 Test Item Value Reference Range Interpretation Comments BUN (test code = BUN) 12 7-22 [facility]2018-06-28 00:19:00 Test Item Value Reference Range Interpretation Comments Glucose Lvl (test code = Glucose Lvl) 138 70-99 [facility]wfgirzIWZMJOHJPGQFF1803-34-73 00:19:00 Test Item Value Reference Range Interpretation Comments S Preg (test code = S Negative *NA*(11/11/17 Preg) 7:19 PM) [facility] IrvingEeuedarKVOOESQIWL4590-42-85 00:19:00 Test Item Value Reference Range Interpretation Comments MPV (test code = MPV) 8.8 7.4-10.4 [facility] IrvingDxvnwwcXMUFNVSOCC5940-28-20 00:19:00 Test Item Value Reference Range Interpretation Comments MCHC (test code = MCHC) 35.2 32.0-36.0 [facility] IrvingGgmxzpiWHNZRAIXRO5167-84-25 00:19:00 Test Item Value Reference Range Interpretation Comments RDW (test code = RDW) 12.3 11.5-14.5 [facility] IrvingVzdcfsmXINKPPNJDW7076-88-11 00:19:00 Test Item Value Reference Range Interpretation Comments MCH (test code = MCH) 33.9 pg 27.0-31.0 [facility] IrvingIvboqewPXNBSLRCRN5478-70-58 00:19:00 Test Item Value Reference Range Interpretation Comments Platelet (test code = Platelet) 338 133-450 [facility] IrvingOtudtrnVCUBIIDGFA7200-41-35 00:19:00 Test Item Value Reference Range Interpretation Comments MCV (test code = MCV) 96.4 80.0-98.0 [facility] IrvingAwmvrzrRRXTUQISZU2968-59-69 00:19:00 Test Item Value Reference Range Interpretation Comments Hgb (test code = Hgb) 15.2 12.0-16.0 [facility] IrvingDmgxugdWFYFWNPZWB6019-66-91 00:19:00 Test Item Value Reference Range Interpretation Comments Hct (test code = Hct) 43.1 36.0-48.0 [facility] IrvingGgtfnupDAIEKBFGBQ8385-76-02 00:19:00 Test Item Value Reference Range Interpretation Comments RBC (test code = RBC) 4.48 4.20-5.40 [facility] IrvingCisnuofPTHRSQWGAH2396-43-84 00:19:00 Test Item Value Reference Range Interpretation Comments WBC (test code = WBC) 8.0 3.7-10.4 [facility] IrvingWkngdtcXFUOXDREHO0484-32-10 00:19:00 Test Item Value Reference Range Interpretation Comments Eosinophils # (test code 0.4 See_Comment [A utomated message] The = Eosinophils #) system whic h generated this result tra nsmitted reference range : <=0.5. The reference r jase was not used to int erpret this result as normal/abnormal . [facility] IrvingOxxlwjtJVSKLWXIJM1521-67-13 00:19:00 Test Item Value Reference Range Interpretation Comments Basophils # (test code 0.1 See_Comment [Aut omated message] The = Basophils #) system which generated this result tra nsmitted reference range : <=0.2. The reference r jase was not used to int erpret this result as normal/abnormal . [facility] IrvingPalvwabJASVHIAYFW2114-31-18 00:19:00 Test Item Value Reference Range Interpretation Comments Basophils (test code = 0.8 See_Comment [Aut omated message] The Basophils) system which ge nerated this result tra nsmitted reference range : <=1.0. The reference r jase was not used to int erpret this result as normal/abnormal . [facility] IrvingJyqwwbwCJSICPCBCX6256-40-83 00:19:00 Test Item Value Reference Range Interpretation Comments Segs-Bands # (test code = Segs-Bands #) 4.4 1.5-8.1 [facility] IrvingJbdjnjvOTCTWSESRA9654-82-01 00:19:00 Test Item Value Reference Range Interpretation Comments Monocytes # (test code 0.6 See_Comment [Aut omated message] The = Monocytes #) system which generated this result tra nsmitted reference range : <=0.8. The reference r jase was not used to int erpret this result as normal/abnormal . [facility] IrvingJolqsiiPBKLWPRNAV3241-22-19 00:19:00 Test Item Value Reference Range Interpretation Comments Lymphocytes # (test code = Lymphocytes 2.6 1.0-5.5 #) [facility] IrvingOsxavxkGCIYUGQPYV5253-06-79 00:19:00 Test Item Value Reference Range Interpretation Comments Lymphocytes (test code = Lymphocytes) 32.2 20.0-40.0 [facility] IrvingVevoygqCZTSKSGHBG1055-01-98 00:19:00 Test Item Value Reference Range Interpretation Comments Eosinophils (test code = 5.0 See_Comment [A utomated message] The Eosinophils) system which ge nerated this result tra nsmitted reference range : <=4.0. The reference r jase was not used to int erpret this result as normal/abnormal . [facility] IrvingEbncxhbETYUBBTPLG0630-77-09 00:19:00 Test Item Value Reference Range Interpretation Comments Monocytes (test code = Monocytes) 7.3 2.0-12.0 [facility] IrvingCqmpwdlTZIMTJKSNB6931-20-59 00:19:00 Test Item Value Reference Range Interpretation Comments Segs (test code = Segs) 54.7 45.0-75.0 [facility]YawjplgKVRDZFWYCUSCT7057-12-35 15:37:00 Test Item Value Reference Range Interpretation Comments S Preg (test code = S Negative *NA*(11/29/15 Preg) 10:37 AM) [facility] [id number] 15:45:00 Test Item Value Reference Range Interpretation Comments UA Bili (test code = Small *ABN*(11/15/15 UA Bili) 10:45 AM) [facility] [id number] 15:45:00 Test Item Value Reference Range Interpretation Comments UA Ketones (test code = UA Ketones) 40 mg/dL [facility] [id number] 15:45:00 Test Item Value Reference Range Interpretation Comments UA Urobilinogen (test code = UA 0.2 0.1-1.0 Urobilinogen) [facility] [id number] 15:45:00 Test Item Value Reference Range Interpretation Comments UA Leuk Est (test Negative (11/15/15 10:45 code = UA Leuk Est) AM) [facility] [id number] 15:45:00 Test Item Value Reference Range Interpretation Comments UA Blood (test code = Moderate *ABN*(11/15/15 UA Blood) 10:45 AM) [facility] [id number] 15:45:00 Test Item Value Reference Range Interpretation Comments UA Nitrite (test code Negative (11/15/15 10:45 = UA Nitrite) AM) [facility] [id number] 15:45:00 Test Item Value Reference Range Interpretation Comments UA Color (test code = Yellow *NA*(11/15/15 UA Color) 10:45 AM) [facility] [id number] 15:45:00 Test Item Value Reference Range Interpretation Comments UA Glucose (test code Negative (11/15/15 10:45 = UA Glucose) AM) [facility] [id number] 15:45:00 Test Item Value Reference Range Interpretation Comments UA Protein (test code = UA Protein) 30 mg/dL [facility] [id number] 15:45:00 Test Item Value Reference Range Interpretation Comments UA pH (test code = UA pH) 6.5 1 5.0-8.0 [facility] [id number] 15:45:00 Test Item Value Reference Range Interpretation Comments UA Spec Grav (test code = UA Spec 1.025 1 Grav) [facility] [id number] 15:45:00 Test Item Value Reference Range Interpretation Comments UA Turbidity (test code = Clear (11/15/15 10:45 UA Turbidity) AM) [facility] [id number] 15:45:00 Test Item Value Reference Range Interpretation Comments UA RBC (test code = 0-2 /HPF See_Comment [Automa owen message] The UA RBC) system which ge nerated this result tra nsmitted reference range : <=2. The reference range was not used to interpr et this result as fredi l/abnormal. [facility] [id number] 15:45:00 Test Item Value Reference Range Interpretation Comments UA WBC (test code = UA None Seen (11/15/15 WBC) 10:45 AM) [facility] [id number] 15:45:00 Test Item Value Reference Range Interpretation Comments UA Mucus (test code = UA Mucus) Few /LPF [facility] [id number] 15:45:00 Test Item Value Reference Range Interpretation Comments UA Bacteria (test code = UA Few /HPF Bacteria) [facility] AND [id number] 15:45:00 Test Item Value Reference Range Interpretation Comments UA Sq Epi (test code = UA Sq Epi) Few /LPF [facility] [id number] 14:22:00 Test Item Value Reference Range Interpretation Comments Lipase Lvl (test code = Lipase Lvl) 197 73-[address] [facility] [id number] 14:22:00 Test Item Value Reference Range Interpretation Comments B/C Ratio (test code = B/C Ratio) 19 6-[address] [facility] [id number] 14:22:00 Test Item Value Reference Range Interpretation Comments AGAP (test code = AGAP) 19.3 10.0-20.0 [facility]2016-06-30 14:22:00 Test Item Value Reference Range Interpretation Comments A/G Ratio (test code = A/G Ratio) 1.1 0.7-1.6 [facility]2016-06-30 14:22:00 Test Item Value Reference Range Interpretation Comments Globulin (test code = Globulin) 3.6 2.0-4.0 [facility]2016-06-30 14:22:00 Test Item Value Reference Range Interpretation Comments eGFR (test code = eGFR) 114 [facility]2016-06-30 14:22:00 Test Item Value Reference Range Interpretation Comments AST (test code = AST) 13 See_Comment [Auto mated message] The system which ge nerated this result transmit owen reference range : <=37. The reference range was not used to interpr et this result as fredi l/abnormal. [facility]2016-06-30 14:22:00 Test Item Value Reference Range Interpretation Comments Bili Total (test code = Bili Total) 0.7 0.2-1.3 [facility]2016-06-30 14:22:00 Test Item Value Reference Range Interpretation Comments Alk Phos (test code = Alk Phos) 67 39-136 [facility]2016-06-30 14:22:00 Test Item Value Reference Range Interpretation Comments Sodium Lvl (test code = Sodium Lvl) 140 135-145 [facility]2016-06-30 14:22:00 Test Item Value Reference Range Interpretation Comments Potassium Lvl (test code = Potassium 4.3 3.5-5.1 Lvl) [facility]2016-06-30 14:22:00 Test Item Value Reference Range Interpretation Comments Chloride Lvl (test code = Chloride Lvl) 106 95-109 [facility]2016-06-30 14:22:00 Test Item Value Reference Range Interpretation Comments Calcium Lvl (test code = Calcium Lvl) 9.5 8.5-10.5 [facility]2016-06-30 14:22:00 Test Item Value Reference Range Interpretation Comments Albumin Lvl (test code = Albumin Lvl) 4.1 3.5-5.0 [facility]2016-06-30 14:22:00 Test Item Value Reference Range Interpretation Comments Total Protein (test code = Total 7.7 6.4-8.4 Protein) [facility]2016-06-30 14:22:00 Test Item Value Reference Range Interpretation Comments ALT (test code = ALT) 15 See_Comment [Auto mated message] The system which ge nerated this result transmit owen reference range : <=65. The reference range was not used to interpr et this result as fredi l/abnormal. [facility]2016-06-30 14:22:00 Test Item Value Reference Range Interpretation Comments CO2 (test code = CO2) 19 24-32 [facility]2016-06-30 14:22:00 Test Item Value Reference Range Interpretation Comments Glucose Lvl (test code = Glucose Lvl) 167 70-99 [facility]2016-06-30 14:22:00 Test Item Value Reference Range Interpretation Comments Creatinine Lvl (test code = Creatinine 0.73 0.50-1.40 Lvl) [facility]2016-06-30 14:22:00 Test Item Value Reference Range Interpretation Comments BUN (test code = BUN) 14 7- [place] [id number] 14:22:00 Test Item Value Reference Range Interpretation Comments S Preg (test code = S Negative *NA*(11/15/15 Preg) 9:22 AM) [facility] IrvingPmpdarmYCPJFSZMHZ5542-93-02 14:22:00 Test Item Value Reference Range Interpretation Comments MCHC (test code = MCHC) 35.0 32.0-36.0 [facility] IrvingPnqxybhKNSQWRZGNL3878-95-22 14:22:00 Test Item Value Reference Range Interpretation Comments RDW (test code = RDW) 12.1 11.5-14.5 [facility] IrvingTyqnamnKZCXLWCTBD2043-32-12 14:22:00 Test Item Value Reference Range Interpretation Comments Platelet (test code = Platelet) 258 133-450 [facility] IrvingXztwubjBEICEHJEPR9157-85-06 14:22:00 Test Item Value Reference Range Interpretation Comments MPV (test code = MPV) 8.6 7.4-10.4 [facility] IrvingWmiivnvNTUWHEBHDO9419-50-53 14:22:00 Test Item Value Reference Range Interpretation Comments Hgb (test code = Hgb) 14.1 12.0-16.0 [facility] IrvingBdqrbhvXPGXURBYZP4942-48-44 14:22:00 Test Item Value Reference Range Interpretation Comments MCV (test code = MCV) 92.5 80.0-98.0 [facility] IrvingSobzqbpORMQCHPIWC1918-87-75 14:22:00 Test Item Value Reference Range Interpretation Comments Hct (test code = Hct) 40.4 36.0-48.0 [facility] IrvingIayssaqLVDHQKMWZI7457-98-44 14:22:00 Test Item Value Reference Range Interpretation Comments MCH (test code = MCH) 32.4 pg 27.0-31.0 [facility] IrvingIpyddxsLIEEXMVWKI7723-45-68 14:22:00 Test Item Value Reference Range Interpretation Comments RBC (test code = RBC) 4.37 4.20-5.40 [facility] IrvingMghlqloDTEONQCCFH8957-06-38 14:22:00 Test Item Value Reference Range Interpretation Comments WBC (test code = WBC) 7.0 3.7-10.4 [facility] IrvingBqichytUBKRZEZRVU2147-94-83 14:22:00 Test Item Value Reference Range Interpretation Comments Eosinophils # (test code 0.7 See_Comment [A utomated message] The = Eosinophils #) system whic h generated this result tra nsmitted reference range : <=0.5. The reference r jase was not used to int erpret this result as normal/abnormal . [facility] IrvingPthelodTXLDHIVDOS5000-13-14 14:22:00 Test Item Value Reference Range Interpretation Comments Basophils # (test code 0.1 See_Comment [Aut omated message] The = Basophils #) system which generated this result tra nsmitted reference range : <=0.2. The reference r jase was not used to int erpret this result as normal/abnormal . [facility] IrvingYmekedrMTLJKGQWRK1316-87-19 14:22:00 Test Item Value Reference Range Interpretation Comments Lymphocytes # (test code = Lymphocytes 2.3 1.0-5.5 #) [facility] IrvingJwobqvwDHEJAWEXPL4967-37-35 14:22:00 Test Item Value Reference Range Interpretation Comments Segs-Bands # (test code = Segs-Bands #) 3.5 1.5-8.1 [facility] IrvingVmfsjjmAIMNKPNKPE1482-54-04 14:22:00 Test Item Value Reference Range Interpretation Comments Monocytes # (test code 0.4 See_Comment [Aut omated message] The = Monocytes #) system which generated this result tra nsmitted reference range : <=0.8. The reference r jase was not used to int erpret this result as normal/abnormal . [facility] IrvingWxlkuikQDUXUHISBC0658-10-69 14:22:00 Test Item Value Reference Range Interpretation Comments Lymphocytes (test code = Lymphocytes) 32.9 20.0-40.0 [facility] IrvingAqgtxmtVUDIGPFOYB2258-45-05 14:22:00 Test Item Value Reference Range Interpretation Comments Segs (test code = Segs) 49.3 45.0-75.0 [facility] IrvingUtitgktDSFCWBVONE6793-36-88 14:22:00 Test Item Value Reference Range Interpretation Comments Monocytes (test code = Monocytes) 5.4 2.0-12.0 [facility] IrvingZzdgbqpTAHDRSJFAL6204-55-19 14:22:00 Test Item Value Reference Range Interpretation Comments Eosinophils (test code = 10.5 See_Comment [A utomated message] The Eosinophils) system which ge nerated this result tra nsmitted reference range : <=4.0. The reference r jase was not used to int erpret this result as normal/abnormal . [facility] IrvingHqowqzkMARFUTNDZM8115-39-53 14:22:00 Test Item Value Reference Range Interpretation Comments Basophils (test code = 1.9 See_Comment [Aut omated message] The Basophils) system which ge nerated this result tra nsmitted reference range : <=1.0. The reference r jase was not used to int erpret this result as normal/abnormal . [facility]entonRnncmfgIUAIGPXCJT6005-70-93 14:22:00 Test Item Value Reference Range Interpretation Comments [facility] HIV 4th GEN (test Negative (11/15/15 9:22 code = CDC HIV 4th AM) GEN) [facility]anekuaYHZUDIZQRQLJ8482-39-88 10:04:00 Test Item Value Reference Range Interpretation Comments Potassium Lvl (test code = Potassium 4.4 3.5-5.1 Lvl) [facility]CxnrohfCTBZGFCMBRNA0799-17-25 10:04:00 Test Item Value Reference Range Interpretation Comments AGAP (test code = AGAP) 11.4 10.0-20.0 [facility]LhxsovfMZJLJZFRSYSM7256-60-23 10:04:00 Test Item Value Reference Range Interpretation Comments CO2 (test code = CO2) 25 24-32 [facility]WafnhqlHQVONKXZFDZN8853-10-31 10:04:00 Test Item Value Reference Range Interpretation Comments Chloride Lvl (test code = Chloride Lvl) 105 95-109 [facility]CnhzwgaAJTQKZUJZPEN0609-87-11 10:04:00 Test Item Value Reference Range Interpretation Comments Calcium Lvl (test code = Calcium Lvl) 8.1 8.5-10.5 [facility] MichiganDbukkvtLSJTKCJVKAGB2333-05-55 10:04:00 Test Item Value Reference Range Interpretation Comments Glucose Lvl (test code = Glucose Lvl) 366 70-99 [facility] MichiganUgniovlCSWAPZDCSRVZ0812-40-59 10:04:00 Test Item Value Reference Range Interpretation Comments Creatinine Lvl (test code = Creatinine 0.69 0.50-1.40 Lvl) [facility] MichiganCtihnbwBUUGGNGSLJEJ5498-63-38 10:04:00 Test Item Value Reference Range Interpretation Comments BUN (test code = BUN) 6 7-22 [facility] MichiganDpzzfokGGQMJNBUPTFJ7776-62-19 10:04:00 Test Item Value Reference Range Interpretation Comments Sodium Lvl (test code = Sodium Lvl) 137 135-145 [facility] MichiganEkmazgaDHKCUJQUPZSO6033-94-48 10:04:00 Test Item Value Reference Range Interpretation Comments ALT (test code = ALT) 27 See_Comment [Auto mated message] The system which ge nerated this result transmit owen reference range : <=65. The reference range was not used to interpr et this result as fredi l/abnormal. [facility] MichiganNxscvpxATNVQMAWUHJT9267-56-50 10:04:00 Test Item Value Reference Range Interpretation Comments Bili Total (test code = Bili Total) 0.6 0.2-1.3 [facility] MichiganNmfwinxZLOIDGOVTBWF4285-95-62 10:04:00 Test Item Value Reference Range Interpretation Comments AST (test code = AST) 36 See_Comment [Auto mated message] The system which ge nerated this result transmit owen reference range : <=37. The reference range was not used to interpr et this result as fredi l/abnormal. [facility] MichiganKlsrbunMSWPPZYECOQZ2226-75-05 10:04:00 Test Item Value Reference Range Interpretation Comments Alk Phos (test code = Alk Phos) 81 39-136 [facility]EnxeftvVCHJOBGMBDYF2232-66-23 10:04:00 Test Item Value Reference Range Interpretation Comments Globulin (test code = Globulin) 2.9 2.0-4.0 [facility] MichiganDuvccgsZIGZXURWNRWD6989-64-70 10:04:00 Test Item Value Reference Range Interpretation Comments A/G Ratio (test code = A/G Ratio) 0.9 0.7-1.6 [facility] MichiganTsacvucNJOJWHTIMUZO1074-80-31 10:04:00 Test Item Value Reference Range Interpretation Comments B/C Ratio (test code = B/C Ratio) 9 6-25 [facility] MichiganPvgjzzuHLZBIIAWHGZT4960-79-11 10:04:00 Test Item Value Reference Range Interpretation Comments Total Protein (test code = Total 5.6 6.4-8.4 Protein) [facility] MichiganUnewskwIBPCZUSWCSUC5028-34-06 10:04:00 Test Item Value Reference Range Interpretation Comments Albumin Lvl (test code = Albumin Lvl) 2.7 3.5-5.0 [facility] MichiganTqfxhxdMAPNGJNXQXQE9684-93-68 10:04:00 Test Item Value Reference Range Interpretation Comments eGFR (test code = eGFR) 122 [facility] IrvingWvztywpSWPCAGECQP3378-83-04 10:04:00 Test Item Value Reference Range Interpretation Comments Eosinophils # (test code 0.3 See_Comment [A utomated message] The = Eosinophils #) system whic h generated this result tra nsmitted reference range : <=0.5. The reference r jase was not used to int erpret this result as normal/abnormal . [facility] IrvingNqkotpgLOPYGRKKLC1412-93-07 10:04:00 Test Item Value Reference Range Interpretation Comments Segs (test code = Segs) 48.6 45.0-75.0 [facility] IrvingCfkuuhgQXQQOLJTFN5119-34-04 10:04:00 Test Item Value Reference Range Interpretation Comments Lymphocytes (test code = Lymphocytes) 39.1 20.0-40.0 [facility] IrvingPmlsfzpDDCYDUIGJU3955-37-95 10:04:00 Test Item Value Reference Range Interpretation Comments Lymphocytes # (test code = Lymphocytes 2.4 1.0-5.5 #) [facility] IrvingYwbdvniDVCLTSGPYR3328-73-75 10:04:00 Test Item Value Reference Range Interpretation Comments Monocytes # (test code 0.4 See_Comment [Aut omated message] The = Monocytes #) system which generated this result tra nsmitted reference range : <=0.8. The reference r jase was not used to int erpret this result as normal/abnormal . [facility] IrvingMykdnsyQNXDKEDPIW7301-93-64 10:04:00 Test Item Value Reference Range Interpretation Comments Segs-Bands # (test code = Segs-Bands #) 3.0 1.5-8.1 [facility] IrvingLnccqrkJPDADQFRFK9734-53-27 10:04:00 Test Item Value Reference Range Interpretation Comments Basophils (test code = 0.7 See_Comment [Aut omated message] The Basophils) system which ge nerated this result tra nsmitted reference range : <=1.0. The reference r jase was not used to int erpret this result as normal/abnormal . [facility] IrvingRvhwbtzTOCEFVSLRD7259-00-76 10:04:00 Test Item Value Reference Range Interpretation Comments Eosinophils (test code = 5.0 See_Comment [A utomated message] The Eosinophils) system which ge nerated this result tra nsmitted reference range : <=4.0. The reference r jase was not used to int erpret this result as normal/abnormal . [facility] IrvingQuhnrtpZGRWUFDHJG1156-22-11 10:04:00 Test Item Value Reference Range Interpretation Comments Monocytes (test code = Monocytes) 6.6 2.0-12.0 [facility] IrvingIuzzjahHZWBEFLKVO6600-13-35 10:04:00 Test Item Value Reference Range Interpretation Comments Hgb (test code = Hgb) 11.5 12.0-16.0 [facility] IrvingOqsxdhsARGWWZGEIR6586-78-61 10:04:00 Test Item Value Reference Range Interpretation Comments RBC (test code = RBC) 3.55 4.20-5.40 [facility] IrvingOimmumfJQQJIJJBRW6465-25-35 10:04:00 Test Item Value Reference Range Interpretation Comments WBC (test code = WBC) 6.2 3.7-10.4 [facility] IrvingCazmvnmOPKTTZOMUM1045-43-06 10:04:00 Test Item Value Reference Range Interpretation Comments Platelet (test code = Platelet) 238 133-450 [facility] IrvingGeavjcnGLOCACRRIF9787-12-40 10:04:00 Test Item Value Reference Range Interpretation Comments MPV (test code = MPV) 8.1 7.4-10.4 [facility] IrvingOxbosphZYYFTXVLHC5940-99-38 10:04:00 Test Item Value Reference Range Interpretation Comments RDW (test code = RDW) 12.5 11.5-14.5 [facility] IrvingPqmmruxVUNGDRWQKP4560-77-30 10:04:00 Test Item Value Reference Range Interpretation Comments MCHC (test code = MCHC) 33.3 32.0-36.0 [facility] IrvingXcesxyaPFFCHXLUMT5263-31-97 10:04:00 Test Item Value Reference Range Interpretation Comments MCH (test code = MCH) 32.5 pg 27.0-31.0 [facility] IrvingEjmzmbaZMNAIXMLTZ5709-29-77 10:04:00 Test Item Value Reference Range Interpretation Comments Hct (test code = Hct) 34.6 36.0-48.0 [facility] IrvingUdegysuIVRKLOSWEK5035-00-19 10:04:00 Test Item Value Reference Range Interpretation Comments MCV (test code = MCV) 97.6 80.0-98.0 [facility]2015-12-20 10:14:00 Test Item Value Reference Range Interpretation Comments Magnesium Lvl (test code = Magnesium 1.8 1.8-2.4 Lvl) [facility]2015-12-20 10:14:00 Test Item Value Reference Range Interpretation Comments Phosphorus (test code = Phosphorus) 1.8 2.5-4.5 [facility]fb[facility]VAKEHUPRMLRQ5278-70-81 10:14:00 Test Item Value Reference Range Interpretation Comments Chloride Lvl (test code = Chloride Lvl) 113 95-109 [facility]NyekkraTDSEQWDOWNHE7932-56-67 10:14:00 Test Item Value Reference Range Interpretation Comments eGFR (test code = eGFR) 112 [facility]MpvzzaeCCQEVATUOTEW2193-53-10 10:14:00 Test Item Value Reference Range Interpretation Comments Calcium Lvl (test code = Calcium Lvl) 8.0 8.5-10.5 [facility] MichiganGtinjhwIHNUSALLRWTG7755-92-94 10:14:00 Test Item Value Reference Range Interpretation Comments CO2 (test code = CO2) 17 24-32 [facility] MichiganZxubrlqZSWPGBNYQRGQ4222-84-38 10:14:00 Test Item Value Reference Range Interpretation Comments Glucose Lvl (test code = Glucose Lvl) 147 70-99 [facility]PrhnrtjCUZYUZYCPBGJ6275-15-65 10:14:00 Test Item Value Reference Range Interpretation Comments Sodium Lvl (test code = Sodium Lvl) 141 135-145 [facility] MichiganAegqgcxAGEMSRRHXDUU1199-08-43 10:14:00 Test Item Value Reference Range Interpretation Comments BUN (test code = BUN) 2 7-22 [facility] MichiganVuqanwpOAHOYUXNAEKS3509-79-87 10:14:00 Test Item Value Reference Range Interpretation Comments Creatinine Lvl (test code = Creatinine 0.75 0.50-1.40 Lvl) [facility] MichiganZctdoojFXNNUMDYGAMW8577-96-31 10:14:00 Test Item Value Reference Range Interpretation Comments Potassium Lvl (test code = Potassium 3.7 3.5-5.1 Lvl) [facility]JbvyzsmQHVATVYEQWFB0156-75-08 10:14:00 Test Item Value Reference Range Interpretation Comments AGAP (test code = AGAP) 14.7 10.0-20.0 [facility]wpQQEYXQPWQH4154-45-09 10:14:00 Test Item Value Reference Range Interpretation Comments MPV (test code = MPV) 7.6 7.4-10.4 [facility] IrvingIiazazmRPBQSLEEOB6080-16-28 10:14:00 Test Item Value Reference Range Interpretation Comments Hct (test code = Hct) 34.4 36.0-48.0 [facility] IrvingAeuktrwWIZAYDUIPH0306-72-17 10:14:00 Test Item Value Reference Range Interpretation Comments Hgb (test code = Hgb) 11.5 12.0-16.0 [facility] IrvingCsbzubnWCSYKBSLRL6973-14-97 10:14:00 Test Item Value Reference Range Interpretation Comments RBC (test code = RBC) 3.50 4.20-5.40 [facility] IrvingNpqwuxmUSHVSHGYJQ2284-83-76 10:14:00 Test Item Value Reference Range Interpretation Comments WBC (test code = WBC) 11.3 3.7-10.4 [facility] IrvingEqyeiuzXMBONXMREX0674-56-03 10:14:00 Test Item Value Reference Range Interpretation Comments MCV (test code = MCV) 98.3 80.0-98.0 [facility] IrvingDifergwQCMFNYXVBO5254-20-70 10:14:00 Test Item Value Reference Range Interpretation Comments RDW (test code = RDW) 12.4 11.5-14.5 [facility] IrvingGxvuoheXHPDOUUTHL3223-69-55 10:14:00 Test Item Value Reference Range Interpretation Comments MCH (test code = MCH) 32.8 pg 27.0-31.0 [facility] IrvingMpkppjkLHVRCOZYHM7723-67-35 10:14:00 Test Item Value Reference Range Interpretation Comments Platelet (test code = Platelet) 261 133-450 [facility] IrvingQaijjjbUKYXPGXLYY3781-70-36 10:14:00 Test Item Value Reference Range Interpretation Comments MCHC (test code = MCHC) 33.3 32.0-36.0 [facility] IrvingTnwklrpWRAOQFYUVN3380-48-59 10:14:00 Test Item Value Reference Range Interpretation Comments RBC Morph (test code = Normal (12/20/15 4:14 RBC Morph) AM) [facility] IrvingHsweojvXQONXAOFOT0389-41-93 10:14:00 Test Item Value Reference Range Interpretation Comments Atypical Lymphs (test code = Atypical 0.0 Lymphs) [facility] IrvingDtufxkrBAMAXKCYYC0077-31-62 10:14:00 Test Item Value Reference Range Interpretation Comments Plt Morph (test code = Normal (05/06/15 4:14 Plt Morph) AM) [facility] IrvingJlfvutwHGQGWBDBFM1178-30-28 10:14:00 Test Item Value Reference Range Interpretation Comments Lymphocytes # (test code = Lymphocytes 4.3 1.0-5.5 #) [facility] IrvingHyzqwjcKOOUOHUDYU6899-89-04 10:14:00 Test Item Value Reference Range Interpretation Comments Segs-Bands # (test code = Segs-Bands #) 6.7 1.5-8.1 [facility] IrvingFvyknnmZRGMGNQMZK9798-66-14 10:14:00 Test Item Value Reference Range Interpretation Comments Lymphocytes (test code = Lymphocytes) 38.0 20.0-40.0 [facility] IrvingEfuuvfkQDGFAQPUWJ5472-08-32 10:14:00 Test Item Value Reference Range Interpretation Comments Segs (test code = Segs) 59.0 45.0-75.0 [facility] IrvingJmnogwgKMQLMNEWBK0965-78-61 10:14:00 Test Item Value Reference Range Interpretation Comments Bands (test code = 0.0 See_Comment [Automat ed message] The Bands) system which ge nerated this result transmit owen reference range : <=11.0. The reference r jase was not used to interpr et this result as fredi l/abnormal. [facility] IrvingExeywxyVKFHPKLLKJ7082-25-63 10:14:00 Test Item Value Reference Range Interpretation Comments Monocytes # (test code 0.3 See_Comment [Aut omated message] The = Monocytes #) system which generated this result tra nsmitted reference range : <=0.8. The reference r jase was not used to int erpret this result as normal/abnormal . [facility] IrvingCbaxurpZHPLOSGYQL1796-57-90 10:14:00 Test Item Value Reference Range Interpretation Comments Monocytes (test code = Monocytes) 3.0 2.0-12.0 [facility] SAORHNYEQ5299-83-08 10:01:00 Test Item Value Reference Range Interpretation Comments Hgb A1C (test code = Hgb A1C) 10.9 [facility]2015-12-20 04:36:00 Test Item Value Reference Range Interpretation Comments Magnesium Lvl (test code = Magnesium 2.2 1.8-2.4 Lvl) [facility]2015-12-20 04:36:00 Test Item Value Reference Range Interpretation Comments eGFR (test code = eGFR) 116 [facility]2015-12-20 04:36:00 Test Item Value Reference Range Interpretation Comments Creatinine Lvl (test code = Creatinine 0.73 0.50-1.40 Lvl) [facility]2015-12-20 04:36:00 Test Item Value Reference Range Interpretation Comments BUN (test code = BUN) 4 7-22 [facility]2015-12-20 04:36:00 Test Item Value Reference Range Interpretation Comments Glucose Lvl (test code = Glucose Lvl) 161 70-99 [facility]2015-12-20 04:36:00 Test Item Value Reference Range Interpretation Comments Calcium Lvl (test code = Calcium Lvl) 7.8 8.5-10.5 [facility]2015-12-20 04:36:00 Test Item Value Reference Range Interpretation Comments AGAP (test code = AGAP) 14.8 10.0-20.0 [facility]2015-12-20 04:36:00 Test Item Value Reference Range Interpretation Comments CO2 (test code = CO2) 17 24-32 [facility]2015-12-20 04:36:00 Test Item Value Reference Range Interpretation Comments Chloride Lvl (test code = Chloride Lvl) 112 95-109 [facility]2015-12-20 04:36:00 Test Item Value Reference Range Interpretation Comments Sodium Lvl (test code = Sodium Lvl) 140 135-145 [facility]2015-12-20 04:36:00 Test Item Value Reference Range Interpretation Comments Potassium Lvl (test code = Potassium 3.8 3.5-5.1 Lvl) [facility] VXQOMLYHR6138-04-92 04:36:00 Test Item Value Reference Range Interpretation Comments Hgb A1C (test code = Hgb A1C) 10.9 [facility]2015-12-20 00:54:00 Test Item Value Reference Range Interpretation Comments Ketone Quantitative (test code = Ketone 1.10 Quantitative) [facility]annCHE[facility] [id number] 00:54:00 Test Item Value Reference Range Interpretation Comments Magnesium Lvl (test code = Magnesium 2.5 1.8-2.4 Lvl) [facility]entonCHE[facility] MPDGK6561-37-91 00:54:00 Test Item Value Reference Range Interpretation Comments Phosphorus (test code = Phosphorus) 2.7 2.5-4.5 [facility] DFWBA4783-38-27 15:34:00 Test Item Value Reference Range Interpretation Comments Phosphorus (test code = Phosphorus) 1.8 2.5-4.5 [facility]annCHE[facility] WYPHF9533-13-36 15:34:00 Test Item Value Reference Range Interpretation Comments Ketone Quantitative (test code = Ketone 3.83 Quantitative) [facility] CenterannCARDIAC HNKMGOR1056-20-02 10:27:00 Test Item Value Reference Range Interpretation Comments BNP (test code = BNP) 148 [facility] Center2heuresavantFULT[facility] HDMAD1757-84-84 10:27:00 Test Item Value Reference Range Interpretation Comments A/G Ratio (test code = A/G Ratio) 0.9 0.7-1.6 [facility]annCHEM ZIPXU0869-23-53 10:27:00 Test Item Value Reference Range Interpretation Comments Globulin (test code = Globulin) 4.4 2.0-4.0 [facility] CenterJipio TAFOE7215-17-77 10:27:00 Test Item Value Reference Range Interpretation Comments AST (test code = AST) 25 See_Comment [Auto mated message] The system which ge nerated this result transmit owen reference range : <=37. The reference range was not used to interpr et this result as fredi l/abnormal. [facility] CenterJipio HKRTJ0827-22-99 10:27:00 Test Item Value Reference Range Interpretation Comments ALT (test code = ALT) 27 See_Comment [Auto mated message] The system which ge nerated this result transmit owen reference range : <=65. The reference range was not used to interpr et this result as fredi l/abnormal. [facility] CenterJ[facility] KNJRY5585-98-50 10:27:00 Test Item Value Reference Range Interpretation Comments Total Protein (test code = Total 8.3 6.4-8.4 Protein) [facility] CenterJ[facility] [id number] 10:27:00 Test Item Value Reference Range Interpretation Comments B/C Ratio (test code = B/C Ratio) 8 6-25 [facility]2015-12-19 10:27:00 Test Item Value Reference Range Interpretation Comments Albumin Lvl (test code = Albumin Lvl) 3.9 3.5-5.0 [facility]2015-12-19 10:27:00 Test Item Value Reference Range Interpretation Comments Bili Total (test code = Bili Total) 0.3 0.2-1.3 [facility]2015-12-19 10:27:00 Test Item Value Reference Range Interpretation Comments Alk Phos (test code = Alk Phos) 124 39-136 [facility] IrvingZdabtjaWIMOBWWZBO0616-25-07 10:27:00 Test Item Value Reference Range Interpretation Comments Eosinophils # (test code 0.3 See_Comment [A utomated message] The = Eosinophils #) system whic h generated this result tra nsmitted reference range : <=0.5. The reference r jase was not used to int erpret this result as normal/abnormal . [facility] IrvingZchcihbNKRHZWDQRL2027-07-45 10:27:00 Test Item Value Reference Range Interpretation Comments Basophils # (test code 0.3 See_Comment [Aut omated message] The = Basophils #) system which generated this result tra nsmitted reference range : <=0.2. The reference r jase was not used to int erpret this result as normal/abnormal . [facility] IrvingZoxwumdVSUFYKTFUW9771-74-91 10:27:00 Test Item Value Reference Range Interpretation Comments Lymphocytes # (test code = Lymphocytes 2.8 1.0-5.5 #) [facility] IrvingGvtvmbiULYOHKHKXE7488-60-10 10:27:00 Test Item Value Reference Range Interpretation Comments Monocytes # (test code 2.4 See_Comment [Aut omated message] The = Monocytes #) system which generated this result tra nsmitted reference range : <=0.8. The reference r jase was not used to int erpret this result as normal/abnormal . [facility] IrvingCcbroftXBLMNTZTPJ6425-19-20 10:27:00 Test Item Value Reference Range Interpretation Comments Anisocyte (test code = 1+ *ABN*(05/05/15 Anisocyte) 4:27 AM) [facility] IrvingSkrdzflJZLVNMQQWM7173-91-62 10:27:00 Test Item Value Reference Range Interpretation Comments Macrocyte (test code = 3+ *ABN*(05/05/15 Macrocyte) 4:27 AM) [facility] IrvingDxdbllbSGKVYUMUPY6165-29-60 10:27:00 Test Item Value Reference Range Interpretation Comments Toxic Gran (test code Moderate *ABN*(05/05/15 = Toxic Gran) 4:27 AM) [facility] IrvingFrhmrbiIUWCTBJZIA6597-81-54 10:27:00 Test Item Value Reference Range Interpretation Comments Basophils (test code = 1.0 See_Comment [Aut omated message] The Basophils) system which ge nerated this result tra nsmitted reference range : <=1.0. The reference r jase was not used to int erpret this result as normal/abnormal . [facility] IrvingJmyrvuqFGICAKSBPT1390-55-38 10:27:00 Test Item Value Reference Range Interpretation Comments Plt Morph (test code = Normal (05/05/15 4:27 Plt Morph) AM) [facility] IrvingOqdlqmjCLBPOGEFYV0063-47-68 10:27:00 Test Item Value Reference Range Interpretation Comments Metamyelocytes (test code 4.0 See_Comment [ Automated message] = Metamyelocytes) The system which generated this result transmitted ref erence range: <=1.0. T he reference range was not used to int erpret this result as normal/abnormal . [facility] IrvingLwqlrtmEXUSWZMEMK5659-73-47 10:27:00 Test Item Value Reference Range Interpretation Comments Atypical Lymphs (test code = Atypical 0.0 Lymphs) [facility] IrvingXxbfudkXZLLBXTMDN7701-44-19 10:27:00 Test Item Value Reference Range Interpretation Comments Segs (test code = Segs) 66.0 45.0-75.0 [facility] IrvingQxpakzjGLWQBLJRMI5876-39-96 10:27:00 Test Item Value Reference Range Interpretation Comments Monocytes (test code = Monocytes) 8.0 2.0-12.0 [facility] IrvingMkgyajtOIKIPTWHBD0467-49-62 10:27:00 Test Item Value Reference Range Interpretation Comments Eosinophils (test code = 1.0 See_Comment [A utomated message] The Eosinophils) system which ge nerated this result tra nsmitted reference range : <=4.0. The reference r jase was not used to int erpret this result as normal/abnormal . [facility] IrvingDlwpcnaJSMLLAUYJN4413-42-32 10:27:00 Test Item Value Reference Range Interpretation Comments Bands (test code = 11.0 See_Comment [Automat ed message] The Bands) system which ge nerated this result transmit owen reference range : <=11.0. The reference r jase was not used to interpr et this result as fredi l/abnormal. [facility] IrvingOpcclolZUQZBDMXOI6852-52-61 10:27:00 Test Item Value Reference Range Interpretation Comments Lymphocytes (test code = Lymphocytes) 9.0 20.0-40.0 [facility] IrvingHzqvmqlRIEJLSBQNB1292-85-74 10:27:00 Test Item Value Reference Range Interpretation Comments Segs-Bands # (test code = Segs-Bands #) 23.6 1.5-8.1 [facility] IrvingKfjbodbIDEXOLAXST1598-62-95 10:27:00 Test Item Value Reference Range Interpretation Comments PTT (test code = PTT) 17.5 s 22.9-35.8 [facility] IrvingXyghhwhMHRCBOQOJD1145-84-26 10:27:00 Test Item Value Reference Range Interpretation Comments INR (test code = INR) 1.15 0.85-1.17 [facility] IrvingZngjqpoUGTVMGVGWX6604-97-00 10:27:00 Test Item Value Reference Range Interpretation Comments PT (test code = PT) 15.0 s 12.0-14.7 [facility] IrvingZyqbllzASDGECNVOK4362-35-81 10:27:00 Test Item Value Reference Range Interpretation Comments Platelet (test code = Platelet) 414 133-450 [facility] IrvingCwgkjihKJXJNYUOHL8624-60-96 10:27:00 Test Item Value Reference Range Interpretation Comments MPV (test code = MPV) 8.4 7.4-10.4 [facility] IrvingKlptdydNRTRYRFYKJ5748-63-65 10:27:00 Test Item Value Reference Range Interpretation Comments MCV (test code = MCV) 110.0 80.0-98.0 [facility] IrvingEurjttyCHLKLVKQRW4569-76-14 10:27:00 Test Item Value Reference Range Interpretation Comments MCH (test code = MCH) 32.3 pg 27.0-31.0 [facility] IrvingCgfclywPAJIBNCNVU5084-87-85 10:27:00 Test Item Value Reference Range Interpretation Comments MCHC (test code = MCHC) 29.4 32.0-36.0 [facility] IrvingTfcqbilNIZCQRTBTX0026-59-71 10:27:00 Test Item Value Reference Range Interpretation Comments RDW (test code = RDW) 14.2 11.5-14.5 [facility] IrvingYnicdtyLIJJNAQLYG8366-50-44 10:27:00 Test Item Value Reference Range Interpretation Comments RBC (test code = RBC) 4.68 4.20-5.40 [place] 730605-12-19 10:27:00 Test Item Value Reference Range Interpretation Comments Hgb (test code = Hgb) 15.1 12.0-16.0 [facility] IrvingYqrjzdlCRWMODWCUX4283-47-69 10:27:00 Test Item Value Reference Range Interpretation Comments Hct (test code = Hct) 51.5 36.0-48.0 [facility] IrvingLoaontgOSNFWQXTJY4522-33-66 10:27:00 Test Item Value Reference Range Interpretation Comments WBC (test code = WBC) 30.6 3.7-10.4 [facility]2015-12-19 09:20:10 Test Item Value Reference Range Interpretation Comments Ketone Quantitative (test code = Ketone 10.22 Quantitative) [facility] IrvingPkrcavuEFCQULARQR4990-82-69 07:38:00 Test Item Value Reference Range Interpretation Comments Anisocyte (test code = 1+ *ABN*(05/05/15 Anisocyte) 1:38 AM) [facility] IrvingWfpxhuhHZMOHVLNSO5176-33-42 07:38:00 Test Item Value Reference Range Interpretation Comments Plt Morph (test code = Normal (05/05/15 1:38 Plt Morph) AM) [facility] IrvingZvzkbjmICPFPMVUUD7537-66-78 07:38:00 Test Item Value Reference Range Interpretation Comments Macrocyte (test code = 3+ *ABN*(05/05/15 Macrocyte) 1:38 AM) [facility] IrvingNuciukcRLTVJHTFRV1873-68-14 07:38:00 Test Item Value Reference Range Interpretation Comments Eosinophils (test code = 4.0 See_Comment [A utomated message] The Eosinophils) system which ge nerated this result tra nsmitted reference range : <=4.0. The reference r jase was not used to int erpret this result as normal/abnormal . [facility] IrvingMpdhxfuUBZFYSAZQC3519-77-66 07:38:00 Test Item Value Reference Range Interpretation Comments Atypical Lymphs (test code = Atypical 0.0 Lymphs) [facility] IrvingQxlogyxJHWTFPPKDB7783-38-81 07:38:00 Test Item Value Reference Range Interpretation Comments Metamyelocytes (test code 6.0 See_Comment [ Automated message] = Metamyelocytes) The system which generated this result transmitted ref erence range: <=1.0. T he reference range was not used to int erpret this result as normal/abnormal . [facility] IrvingRehqmjpPPJJVGFRLG8062-71-35 07:38:00 Test Item Value Reference Range Interpretation Comments Eosinophils # (test code 0.9 See_Comment [A utomated message] The = Eosinophils #) system whic h generated this result tra nsmitted reference range : <=0.5. The reference r jase was not used to int erpret this result as normal/abnormal . [facility] IrvingGltfhtrZZUGWLYUTQ7433-66-52 07:38:00 Test Item Value Reference Range Interpretation Comments Bands (test code = 7.0 See_Comment [Automat ed message] The Bands) system which ge nerated this result transmit owne reference range : <=11.0. The reference r jase was not used to interpr et this result as fredi l/abnormal. [facility] XBGLGPQSK9419-61-06 07:38:00 Test Item Value Reference Range Interpretation Comments Hgb A1C (test code = Hgb A1C) 10.4 [facility] IYEGC7431-15-77 20:50:00 Test Item Value Reference Range Interpretation Comments B/C Ratio (test code = B/C Ratio) 12 6-25 [facility] [id number] 20:50:00 Test Item Value Reference Range Interpretation Comments A/G Ratio (test code = A/G Ratio) 1.1 0.7-1.6 [facility] [id number] 20:50:00 Test Item Value Reference Range Interpretation Comments Globulin (test code = Globulin) 3.7 2.0-4.0 [facility] [id number] 20:50:00 Test Item Value Reference Range Interpretation Comments Albumin Lvl (test code = Albumin Lvl) 4.1 3.5-5.0 [facility] AIZTG9587-70-33 20:50:00 Test Item Value Reference Range Interpretation Comments Total Protein (test code = Total 7.8 6.4-8.4 Protein) [facility] WYIOT9098-21-07 20:50:00 Test Item Value Reference Range Interpretation Comments Alk Phos (test code = Alk Phos) 105 39-136 [facility]2015-12-18 20:50:00 Test Item Value Reference Range Interpretation Comments AST (test code = AST) 10 See_Comment [Auto mated message] The system which ge nerated this result transmit owen reference range : <=37. The reference range was not used to interpr et this result as fredi l/abnormal. [facility]2015-12-18 20:50:00 Test Item Value Reference Range Interpretation Comments ALT (test code = ALT) 22 See_Comment [Auto mated message] The system which ge nerated this result transmit owen reference range : <=65. The reference range was not used to interpr et this result as fredi l/abnormal. [facility]2015-12-18 20:50:00 Test Item Value Reference Range Interpretation Comments Bili Total (test code = Bili Total) 0.6 0.2-1.3 [place] [id number] 20:50:00 Test Item Value Reference Range Interpretation Comments S Preg (test code = S Negative *NA*(05/04/15 Preg) 2:50 PM) [facility] IrvingJygpkyiJLASQYTHKY5106-05-12 20:50:00 Test Item Value Reference Range Interpretation Comments Basophils (test code = 0.8 See_Comment [Aut omated message] The Basophils) system which ge nerated this result tra nsmitted reference range : <=1.0. The reference r jase was not used to int erpret this result as normal/abnormal . [facility] [facility]LctwbekIGBVQZTZVW5815-25-86 20:50:00 Test Item Value Reference Range Interpretation Comments Macrocyte (test code = 1+ *ABN*(05/04/15 Macrocyte) 2:50 PM) [facility] IrvingGquiztwGZDXUMFEBU6878-98-63 20:50:00 Test Item Value Reference Range Interpretation Comments Basophils # (test code 0.1 See_Comment [Aut omated message] The = Basophils #) system which generated this result tra nsmitted reference range : <=0.2. The reference r jase was not used to int erpret this result as normal/abnormal . [facility]2015-12-18 20:50:00 Test Item Value Reference Range Interpretation Comments UA Hyal Cast 3-5 (05/04/15 See_Comment [Automated me ssage] (test code = UA 2:50 PM) The system w hich Hyal Cast) generated this result transmitted ref erence range: <=2. The reference range was not used to int erpret this result as normal/abnormal . [facility] [id number] 20:50:[facility] Test Item Value Reference Range Interpretation Comments UA Mucus (test code = UA Mucus) Rare /LPF [facility] [id number] 20:50:00 Test Item Value Reference Range Interpretation Comments UA Bacteria (test code = UA Few /HPF Bacteria) [facility] [id number] 20:50:00 Test Item Value Reference Range Interpretation Comments UA RBC (test None Seen See_Comment [Automated mes james] code = UA RBC) (05/04/15 2:50 The system which PM) generated this result transmitted ref erence range: <=2. The reference range was not used to int erpret this result as normal/abnormal . [facility] [id number] 20:50:00 Test Item Value Reference Range Interpretation Comments UA WBC (test code = UA WBC) 0-2 /HPF [facility] [id number] 20:50:00 Test Item Value Reference Range Interpretation Comments UA Sq Epi (test code = UA Sq Occasional /LPF Epi) [facility] [id number] 20:50:00 Test Item Value Reference Range Interpretation Comments UA Color (test code = Yellow *NA*(05/04/15 UA Color) 2:50 PM) [facility] [id number] 20:50:00 Test Item Value Reference Range Interpretation Comments Micro? (test code = Performed (05/04/15 2:50 Micro?) PM) [facility] [id number] 20:50:00 Test Item Value Reference Range Interpretation Comments UA Leuk Est (test Negative (05/04/15 2:50 code = UA Leuk Est) PM) [facility] [id number] 20:50:00 Test Item Value Reference Range Interpretation Comments UA Nitrite (test code Negative (05/04/15 2:50 = UA Nitrite) PM) [facility] [id number] 20:50:00 Test Item Value Reference Range Interpretation Comments UA Urobilinogen (test code = UA 0.2 0.1-1.0 Urobilinogen) [facility] AND [id number] 20:50:00 Test Item Value Reference Range Interpretation Comments UA Bili (test code = Moderate *ABN*(05/04/15 UA Bili) 2:50 PM) [facility] AND [id number] 20:50:00 Test Item Value Reference Range Interpretation Comments UA Protein (test code = Trace *ABN*(05/04/15 UA Protein) 2:50 PM) [facility] AND [id number] 20:50:00 Test Item Value Reference Range Interpretation Comments UA Blood (test code = Negative (05/04/15 2:50 UA Blood) PM) [facility] AND [id number] 20:50:00 Test Item Value Reference Range Interpretation Comments UA Glucose (test code = UA >=1000 mg/dL Glucose) [facility] AND [id number] 20:50:00 Test Item Value Reference Range Interpretation Comments UA Ketones (test code = UA >=80 mg/dL Ketones) [facility] AND [id number] 20:50:00 Test Item Value Reference Range Interpretation Comments UA pH (test code = UA pH) 6.0 1 5.0-8.0 [facility] AND [id number] 20:50:00 Test Item Value Reference Range Interpretation Comments UA Spec Grav (test code = UA Spec 1.025 1 Grav) [facility] AND [id number] 20:50:00 Test Item Value Reference Range Interpretation Comments UA Turbidity (test code = Clear (05/04/15 2:50 UA Turbidity) PM) [facility]nVZVYTFNPDJTC4706-52-13 19:50:00 Test Item Value Reference Range Interpretation Comments AGAP (test code = AGAP) 11.1 10.0-20.0 [facility] MichiganXxiyljyLJXVYVFUIMMZ4592-01-69 19:50:00 Test Item Value Reference Range Interpretation Comments eGFR (test code = eGFR) 119 [facility] MichiganHahacthBGNREDHXXZZK8595-70-38 19:50:00 Test Item Value Reference Range Interpretation Comments Potassium Lvl (test code = Potassium 4.1 3.5-5.1 Lvl) [facility] MichiganMwtpemvTHTCELLNRERD3219-54-26 19:50:00 Test Item Value Reference Range Interpretation Comments Creatinine Lvl (test code = Creatinine 0.72 0.50-1.40 Lvl) [facility] MichiganYmxobyzEMAQZPKCQKMP3311-31-30 19:50:00 Test Item Value Reference Range Interpretation Comments Chloride Lvl (test code = Chloride Lvl) 106 95-109 [facility] MichiganCdpgnybMCJPYZUNQNIN0806-90-50 19:50:00 Test Item Value Reference Range Interpretation Comments Sodium Lvl (test code = Sodium Lvl) 137 135-145 [facility] MichiganIyoqiczKHIFHMUNTVBA9368-97-11 19:50:00 Test Item Value Reference Range Interpretation Comments Calcium Lvl (test code = Calcium Lvl) 9.5 8.5-10.5 [facility] MichiganIzrhfkyYEQXCPXLPYTO0513-17-77 19:50:00 Test Item Value Reference Range Interpretation Comments CO2 (test code = CO2) 24 24-32 [facility] MichiganUvksitjVTWXPJZPETTF4351-01-46 19:50:00 Test Item Value Reference Range Interpretation Comments BUN (test code = BUN) 8 7-22 [facility] MichiganEamazeaVYTFRHJNRXAM5366-76-43 19:50:00 Test Item Value Reference Range Interpretation Comments Glucose Lvl (test code = Glucose Lvl) 251 70-99 [facility] IrvingLjejwllRPMEPKWJAP7783-16-95 19:50:00 Test Item Value Reference Range Interpretation Comments MCV (test code = MCV) 99.3 80.0-98.0 [facility] IrvingBwaefgrRHTQTRPMUA0069-02-53 19:50:00 Test Item Value Reference Range Interpretation Comments MCH (test code = MCH) 33.1 pg 27.0-31.0 [facility] IrvingLcubjeuAYFRGKQYUP4880-09-56 19:50:00 Test Item Value Reference Range Interpretation Comments Hct (test code = Hct) 40.6 36.0-48.0 [facility] IrvingUyztaqyTHOEFLRGUR4950-76-76 19:50:00 Test Item Value Reference Range Interpretation Comments Hgb (test code = Hgb) 13.5 12.0-16.0 [facility] IrvingQotfiytPIUDTBSNSU8425-53-11 19:50:00 Test Item Value Reference Range Interpretation Comments Platelet (test code = Platelet) 312 133-450 [facility] IrvingUtwnpwbIRZTRPCGHP1047-94-28 19:50:00 Test Item Value Reference Range Interpretation Comments MCHC (test code = MCHC) 33.3 32.0-36.0 [facility] IrvingCdblsvmWGFJFCCSJO2293-28-41 19:50:00 Test Item Value Reference Range Interpretation Comments RDW (test code = RDW) 13.2 11.5-14.5 [facility] IrvingQmldtyySANROAVVGU9562-50-60 19:50:00 Test Item Value Reference Range Interpretation Comments RBC (test code = RBC) 4.09 4.20-5.40 [facility] IrvingHyvwgotYKWKYRIVAJ5832-55-76 19:50:00 Test Item Value Reference Range Interpretation Comments WBC (test code = WBC) 7.4 3.7-10.4 [facility] IrvingNoyxyugMOYILJSFAX8442-48-06 19:50:00 Test Item Value Reference Range Interpretation Comments MPV (test code = MPV) 8.2 7.4-10.4 [facility] IrvingSerlfgfOJIRAIXXMA0858-33-98 19:50:00 Test Item Value Reference Range Interpretation Comments Basophils (test code = 1.2 See_Comment [Aut omated message] The Basophils) system which ge nerated this result tra nsmitted reference range : <=1.0. The reference r jase was not used to int erpret this result as normal/abnormal . [facility] IrvingGpvbqqvJEERCLYZZX3774-27-27 19:50:00 Test Item Value Reference Range Interpretation Comments Segs-Bands # (test code = Segs-Bands #) 4.2 1.5-8.1 [facility] IrvingLzaypalMQPNZHTFLW7579-30-78 19:50:00 Test Item Value Reference Range Interpretation Comments Macrocyte (test code = 1+ *ABN*(03/28/15 Macrocyte) 1:50 PM) [facility] IrvingOzugndyNFOKZSOFFH1086-39-11 19:50:00 Test Item Value Reference Range Interpretation Comments Eosinophils # (test code 0.4 See_Comment [A utomated message] The = Eosinophils #) system whic h generated this result tra nsmitted reference range : <=0.5. The reference r jase was not used to int erpret this result as normal/abnormal . [facility] IrvingRgfhczrDAISZFSWIQ3600-32-10 19:50:00 Test Item Value Reference Range Interpretation Comments Basophils # (test code 0.1 See_Comment [Aut omated message] The = Basophils #) system which generated this result tra nsmitted reference range : <=0.2. The reference r jase was not used to int erpret this result as normal/abnormal . [facility] IrvingNmorhooURWJPSQHYN8934-13-05 19:50:00 Test Item Value Reference Range Interpretation Comments Lymphocytes # (test code = Lymphocytes 2.1 1.0-5.5 #) [facility] IrvingByluizbCKINHBVSFU7269-81-14 19:50:00 Test Item Value Reference Range Interpretation Comments Monocytes # (test code 0.6 See_Comment [Aut omated message] The = Monocytes #) system which generated this result tra nsmitted reference range : <=0.8. The reference r jase was not used to int erpret this result as normal/abnormal . [facility] IrvingIosyhslJPVGICHFSY7395-00-02 19:50:00 Test Item Value Reference Range Interpretation Comments Monocytes (test code = Monocytes) 7.9 2.0-12.0 [facility] IrvingSunnmkoYOSYHCYODO4118-72-83 19:50:00 Test Item Value Reference Range Interpretation Comments Segs (test code = Segs) 56.4 45.0-75.0 [facility] IrvingAqpnburOQNPBARBIW5003-37-67 19:50:00 Test Item Value Reference Range Interpretation Comments Lymphocytes (test code = Lymphocytes) 28.8 20.0-40.0 [facility] IrvingTmuprltZDDIIPXDPH9335-99-45 19:50:00 Test Item Value Reference Range Interpretation Comments Eosinophils (test code = 5.7 See_Comment [A utomated message] The Eosinophils) system which ge nerated this result tra nsmitted reference range : <=4.0. The reference r jase was not used to int erpret this result as normal/abnormal . [facility] QYTWE1698-01-06 15:53:00 Test Item Value Reference Range Interpretation Comments eGFR (test code = eGFR) 79 [facility]entonMi[facility] SKPIS4435-97-25 15:53:00 Test Item Value Reference Range Interpretation Comments CO2 (test code = CO2) 25 24-32 [facility]entonMi[facility] [id number] 15:53:00 Test Item Value Reference Range Interpretation Comments Calcium Lvl (test code = Calcium Lvl) 8.1 8.5-10.5 [facility]enton[facility] [id number] 15:53:00 Test Item Value Reference Range Interpretation Comments Potassium Lvl (test code = Potassium 5.0 3.5-5.1 Lvl) [facility]2015-08-06 15:53:00 Test Item Value Reference Range Interpretation Comments AGAP (test code = AGAP) 12.0 10.0-20.0 [facility]2015-08-06 15:53:00 Test Item Value Reference Range Interpretation Comments Sodium Lvl (test code = Sodium Lvl) 134 135-145 [facility]2015-08-06 15:53:00 Test Item Value Reference Range Interpretation Comments Creatinine Lvl (test code = Creatinine 1.0 0.5-1.4 Lvl) [facility]2015-08-06 15:53:00 Test Item Value Reference Range Interpretation Comments Chloride Lvl (test code = Chloride Lvl) 102 95-109 [facility]2015-08-06 15:53:00 Test Item Value Reference Range Interpretation Comments Glucose Lvl (test code = Glucose Lvl) 321 70-99 [facility]2015-08-06 15:53:00 Test Item Value Reference Range Interpretation Comments BUN (test code = BUN) 9 7-22 [facility]2015-08-06 02:55:00 Test Item Value Reference Range Interpretation Comments Magnesium Lvl (test code = Magnesium 2.7 1.8-2.4 Lvl) [facility]NahdiplAVZXJQCNYLQZ9146-86-03 02:55:00 Test Item Value Reference Range Interpretation Comments Potassium Lvl (test code = Potassium 4.4 3.5-5.1 Lvl) [facility] MichiganEoggrbbOXSVQFBBGUYA1729-21-46 21:06:00 Test Item Value Reference Range Interpretation Comments Potassium Lvl (test code = Potassium 4.0 3.5-5.1 Lvl) [facility]2015-08-05 08:51:00 Test Item Value Reference Range Interpretation Comments Phosphorus (test code = Phosphorus) 3.8 2.5-4.5 [facility]2015-08-05 08:51:00 Test Item Value Reference Range Interpretation Comments Magnesium Lvl (test code = Magnesium 1.6 1.8-2.4 Lvl) [facility]2015-08-05 08:51:00 Test Item Value Reference Range Interpretation Comments eGFR (test code = eGFR) 104 [facility]2015-08-05 08:51:00 Test Item Value Reference Range Interpretation Comments Creatinine Lvl (test code = Creatinine 0.8 0.5-1.4 Lvl) [facility]2015-08-05 08:51:00 Test Item Value Reference Range Interpretation Comments Sodium Lvl (test code = Sodium Lvl) 140 135-145 [facility]2015-08-05 08:51:00 Test Item Value Reference Range Interpretation Comments CO2 (test code = CO2) 21 24-32 [facility]2015-08-05 08:51:00 Test Item Value Reference Range Interpretation Comments Chloride Lvl (test code = Chloride Lvl) 108 95-109 [facility]2015-08-05 08:51:00 Test Item Value Reference Range Interpretation Comments Calcium Lvl (test code = Calcium Lvl) 8.2 8.5-10.5 [facility]2015-08-05 08:51:00 Test Item Value Reference Range Interpretation Comments AGAP (test code = AGAP) 14.8 10.0-20.0 [facility]2015-08-05 08:51:00 Test Item Value Reference Range Interpretation Comments Total Protein (test code = Total 6.1 6.4-8.4 Protein) [facility]2015-08-05 08:51:00 Test Item Value Reference Range Interpretation Comments Globulin (test code = Globulin) 3.3 2.0-4.0 [facility]2015-08-05 08:51:00 Test Item Value Reference Range Interpretation Comments Albumin Lvl (test code = Albumin Lvl) 2.8 3.5-5.0 [facility]2015-08-05 08:51:00 Test Item Value Reference Range Interpretation Comments ALT (test code = ALT) 19 See_Comment [Auto mated message] The system which ge nerated this result transmit owen reference range : <=65. The reference range was not used to interpr et this result as fredi l/abnormal. [facility]2015-08-05 08:51:00 Test Item Value Reference Range Interpretation Comments A/G Ratio (test code = A/G Ratio) 0.8 0.7-1.6 [facility]2015-08-05 08:51:00 Test Item Value Reference Range Interpretation Comments B/C Ratio (test code = B/C Ratio) 18 6-25 [facility]2015-08-05 08:51:00 Test Item Value Reference Range Interpretation Comments Bili Total (test code = Bili Total) 0.4 0.2-1.3 [place] 930775-08-05 08:51:00 Test Item Value Reference Range Interpretation Comments Alk Phos (test code = Alk Phos) 87 39-136 [facility]2015-08-05 08:51:00 Test Item Value Reference Range Interpretation Comments AST (test code = AST) 14 See_Comment [Auto mated message] The system which ge nerated this result transmit owen reference range : <=37. The reference range was not used to interpr et this result as fredi l/abnormal. [facility]2015-08-05 08:51:00 Test Item Value Reference Range Interpretation Comments Glucose Lvl (test code = Glucose Lvl) 253 70-99 [facility]2015-08-05 08:51:00 Test Item Value Reference Range Interpretation Comments BUN (test code = BUN) 14 7-22 [facility] IrvingUfzhgrwNOKQSDVBSA9397-61-95 08:51:00 Test Item Value Reference Range Interpretation Comments PT (test code = PT) 12.4 s 12.0-14.7 [facility] IrvingGmsvqrdMUSJDWUCCO8258-09-16 08:51:00 Test Item Value Reference Range Interpretation Comments PTT (test code = PTT) 23.0 s 22.9-35.8 [facility] IrvingAprquspRWBMKJDDWQ2739-03-19 08:51:00 Test Item Value Reference Range Interpretation Comments INR (test code = INR) 0.93 0.85-1.17 [place] 730605-08-05 08:51:00 Test Item Value Reference Range Interpretation Comments MPV (test code = MPV) 8.9 7.4-10.4 [place] 730605-08-05 08:51:00 Test Item Value Reference Range Interpretation Comments RDW (test code = RDW) 13.7 11.5-14.5 [facility] IrvingBpcikvxUULLPLMHEO4245-78-00 08:51:00 Test Item Value Reference Range Interpretation Comments MCHC (test code = MCHC) 33.6 32.0-36.0 [place] 730605-08-05 08:51:00 Test Item Value Reference Range Interpretation Comments Platelet (test code = Platelet) 242 133-450 [facility] IrvingXdytcvaSPPOVCJCJN7422-31-38 08:51:00 Test Item Value Reference Range Interpretation Comments RBC (test code = RBC) 3.80 4.20-5.40 [facility] IrvingTlepojsLEQQLSZCHD1724-21-16 08:51:00 Test Item Value Reference Range Interpretation Comments WBC (test code = WBC) 6.2 3.7-10.4 [facility] IrvingXidkgziSNDGTWOCFX2205-48-07 08:51:00 Test Item Value Reference Range Interpretation Comments Hgb (test code = Hgb) 12.5 12.0-16.0 [facility] IrvingZseuofyEKHNHORIWS2603-02-56 08:51:00 Test Item Value Reference Range Interpretation Comments MCV (test code = MCV) 98.3 80.0-98.0 [facility] IrvingZbkshxtPHDUWFNDGH8434-55-43 08:51:00 Test Item Value Reference Range Interpretation Comments Hct (test code = Hct) 37.3 36.0-48.0 [facility] IrvingGfjfkjlYODVYEFXLY2392-88-93 08:51:00 Test Item Value Reference Range Interpretation Comments MCH (test code = MCH) 33.0 pg 27.0-31.0 [facility] IrvingImezsgaBWOGAMOUBU4169-85-62 08:51:00 Test Item Value Reference Range Interpretation Comments Basophils # (test code 0.1 See_Comment [Aut omated message] The = Basophils #) system which generated this result tra nsmitted reference range : <=0.2. The reference r jase was not used to int erpret this result as normal/abnormal . [facility] IrvingJrqkdlqEFWYBSNNRL5884-48-72 08:51:00 Test Item Value Reference Range Interpretation Comments Eosinophils # (test code 0.5 See_Comment [A utomated message] The = Eosinophils #) system whic h generated this result tra nsmitted reference range : <=0.5. The reference r jase was not used to int erpret this result as normal/abnormal . [facility] IrvingLzyhijrZGXYMQSIJD4820-91-84 08:51:00 Test Item Value Reference Range Interpretation Comments Monocytes # (test code 0.7 See_Comment [Aut omated message] The = Monocytes #) system which generated this result tra nsmitted reference range : <=0.8. The reference r jase was not used to int erpret this result as normal/abnormal . [facility] IrvingIjvjdmpPVMNLVJTLO1052-39-71 08:51:00 Test Item Value Reference Range Interpretation Comments Lymphocytes # (test code = Lymphocytes 1.7 1.0-5.5 #) [facility] IrvingDavdbwrARPAEBAVKJ2456-20-57 08:51:00 Test Item Value Reference Range Interpretation Comments Segs-Bands # (test code = Segs-Bands #) 3.2 1.5-8.1 [facility] IrvingLlntctqWRNZFYDGOO1539-15-70 08:51:00 Test Item Value Reference Range Interpretation Comments Monocytes (test code = Monocytes) 11.8 2.0-12.0 [facility] IrvingChgnzfoPPINONJVKX8711-10-78 08:51:00 Test Item Value Reference Range Interpretation Comments Basophils (test code = 1.3 See_Comment [Aut omated message] The Basophils) system which ge nerated this result tra nsmitted reference range : <=1.0. The reference r jase was not used to int erpret this result as normal/abnormal . [facility] IrvingYantdjfPQICENBCEM9921-09-51 08:51:00 Test Item Value Reference Range Interpretation Comments Eosinophils (test code = 7.8 See_Comment [A utomated message] The Eosinophils) system which ge nerated this result tra nsmitted reference range : <=4.0. The reference r jase was not used to int erpret this result as normal/abnormal . [facility] IrvingHxjtlghRXAEJOXWUE0108-27-26 08:51:00 Test Item Value Reference Range Interpretation Comments Lymphocytes (test code = Lymphocytes) 28.1 20.0-40.0 [facility] IrvingFhscevoCJUENUXGNV2433-88-31 08:51:00 Test Item Value Reference Range Interpretation Comments Segs (test code = Segs) 51.0 45.0-75.0 [facility] DentonTron[facility] ASHNSCH1392-93-34 20:46:00 Test Item Value Reference Range Interpretation Comments CK MB (test code = CK MB) 1.0 0.5-3.6 [facility] [id number] 20:46:00 Test Item Value Reference Range Interpretation Comments Total CK (test code = Total CK) 80 12-191 [facility] DentonCommnet WirelessC[facility]BER[facility] [id number] 20:46:00 Test Item Value Reference Range Interpretation Comments Troponin-I (test code no gt See_Comment [Auto mated message] The = Troponin-I) system which g enerated this result transmit owen reference range : <=0.40. The reference r jase was not used to interpr et this result as fredi l/abnormal. [facility]2heuresavantCARDIAC TUMHGCY6110-50-59 20:46:00 Test Item Value Reference Range Interpretation Comments CK MB Index (test 1.2 See_Comment [Automate d message] The code = CK MB Index) system w [facility] generated this result transmit owen reference range : <=2.5. The reference range was not used to interpr et this result as fredi l/abnormal. [facility] [employer] [id number] 20:46:00 Test Item Value Reference Range Interpretation Comments eGFR (test code = eGFR) 79 [facility] [employer] [id number] 20:46:00 Test Item Value Reference Range Interpretation Comments Calcium Lvl (test code = Calcium Lvl) 8.7 8.5-10.5 [facility] [employer] [id number] 20:46:00 Test Item Value Reference Range Interpretation Comments Total Protein (test code = Total 7.3 6.4-8.4 Protein) [facility] [employer] [id number] 20:46:00 Test Item Value Reference Range Interpretation Comments B/C Ratio (test code = B/C Ratio) 21 6-25 [facility] [employer] [id number] 20:46:00 Test Item Value Reference Range Interpretation Comments Albumin Lvl (test code = Albumin Lvl) 3.6 3.5-5.0 [facility] [employer] [id number] 20:46:00 Test Item Value Reference Range Interpretation Comments Globulin (test code = Globulin) 3.7 2.0-4.0 [facility] [employer] [id number] 20:46:00 Test Item Value Reference Range Interpretation Comments AST (test code = AST) 19 See_Comment [Auto mated message] The system which ge nerated this result transmit owen reference range : <=37. The reference range was not used to interpr et this result as fredi l/abnormal. [facility] [employer] [id number] 20:46:00 Test Item Value Reference Range Interpretation Comments ALT (test code = ALT) 25 See_Comment [Auto mated message] The system which ge nerated this result transmit owen reference range : <=65. The reference range was not used to interpr et this result as fredi l/abnormal. [facility]2015-08-04 20:46:00 Test Item Value Reference Range Interpretation Comments A/G Ratio (test code = A/G Ratio) 1.0 0.7-1.6 [facility]2015-08-04 20:46:00 Test Item Value Reference Range Interpretation Comments Bili Total (test code = Bili Total) 0.6 0.2-1.3 [facility]2015-08-04 20:46:00 Test Item Value Reference Range Interpretation Comments Alk Phos (test code = Alk Phos) 120 39-136 [facility]2015-08-04 20:46:00 Test Item Value Reference Range Interpretation Comments Sodium Lvl (test code = Sodium Lvl) 129 135-145 [facility]2015-08-04 20:46:00 Test Item Value Reference Range Interpretation Comments AGAP (test code = AGAP) 24.3 10.0-20.0 [facility]2015-08-04 20:46:00 Test Item Value Reference Range Interpretation Comments CO2 (test code = CO2) 18 24-32 [facility]2015-08-04 20:46:00 Test Item Value Reference Range Interpretation Comments Chloride Lvl (test code = Chloride Lvl) 92 95-109 [facility]2015-08-04 20:46:00 Test Item Value Reference Range Interpretation Comments Creatinine Lvl (test code = Creatinine 1.0 0.5-1.4 Lvl) [facility]2015-08-04 20:46:00 Test Item Value Reference Range Interpretation Comments Glucose Lvl (test code = Glucose Lvl) 686 70-99 [facility]2015-08-04 20:46:00 Test Item Value Reference Range Interpretation Comments BUN (test code = BUN) 21 7-22 [facility]2015-08-04 20:46:00 Test Item Value Reference Range Interpretation Comments Ketone Quantitative (test code = Ketone 4.09 Quantitative) [facility]2015-08-04 20:46:00 Test Item Value Reference Range Interpretation Comments Phosphorus (test code = Phosphorus) 3.7 2.5-4.5 [facility]2015-08-04 20:46:00 Test Item Value Reference Range Interpretation Comments Magnesium Lvl (test code = Magnesium 2.1 1.8-2.4 Lvl) [facility] IrvingViktdbrMYCMOWIFTH4029-80-80 20:46:00 Test Item Value Reference Range Interpretation Comments MCHC (test code = MCHC) 33.2 32.0-36.0 [facility] IrvingUyutlkuAPSYGSSYRU4127-33-30 20:46:00 Test Item Value Reference Range Interpretation Comments RDW (test code = RDW) 13.6 11.5-14.5 [facility] IrvingVhllxfyUNBLXCZFUR0537-42-11 20:46:00 Test Item Value Reference Range Interpretation Comments RBC (test code = RBC) 4.23 4.20-5.40 [facility] IrvingZgkzevgPKZXTHQTNO4981-09-79 20:46:00 Test Item Value Reference Range Interpretation Comments WBC (test code = WBC) 6.9 3.7-10.4 [facility] IrvingDhmmswgXYZSAAXEWX0764-24-17 20:46:00 Test Item Value Reference Range Interpretation Comments Hct (test code = Hct) 42.2 36.0-48.0 [facility] IrvingHjabvwwEQTEABPJIM4785-01-56 20:46:00 Test Item Value Reference Range Interpretation Comments Hgb (test code = Hgb) 14.0 12.0-16.0 [facility] IrvingJfqrkmsHGNAEUKNVV4514-73-67 20:46:00 Test Item Value Reference Range Interpretation Comments MPV (test code = MPV) 9.0 7.4-10.4 [facility] IrvingZcbnxtqXBKVJCLBDM6606-90-08 20:46:00 Test Item Value Reference Range Interpretation Comments Platelet (test code = Platelet) 279 133-450 [facility] IrvingEeqkzvoULBCIKJERG2132-92-27 20:46:00 Test Item Value Reference Range Interpretation Comments MCV (test code = MCV) 99.7 80.0-98.0 [facility] IrvingDbzhhiyRGDCEUBAZU1701-26-96 20:46:00 Test Item Value Reference Range Interpretation Comments MCH (test code = MCH) 33.1 pg 27.0-31.0 [facility] IrvingEtuhcvrTAINNELMKM5900-97-68 20:46:00 Test Item Value Reference Range Interpretation Comments Lymphocytes # (test code = Lymphocytes 1.2 1.0-5.5 #) [facility] IrvingPknbyedCKDDKRJZJU5311-31-59 20:46:00 Test Item Value Reference Range Interpretation Comments Segs (test code = Segs) 65.1 45.0-75.0 [facility] IrvingTzffsgtEMSOXZBEFD7981-46-99 20:46:00 Test Item Value Reference Range Interpretation Comments Lymphocytes (test code = Lymphocytes) 17.8 20.0-40.0 [facility] IrvingBxhudctZYVANOSCTG3494-10-66 20:46:00 Test Item Value Reference Range Interpretation Comments Basophils (test code = 0.7 See_Comment [Aut omated message] The Basophils) system which ge nerated this result tra nsmitted reference range : <=1.0. The reference r jase was not used to int erpret this result as normal/abnormal . [facility] IrvingSpewfxaEOMVLOQFNA0867-10-92 20:46:00 Test Item Value Reference Range Interpretation Comments Eosinophils (test code = 5.3 See_Comment [A utomated message] The Eosinophils) system which ge nerated this result tra nsmitted reference range : <=4.0. The reference r jase was not used to int erpret this result as normal/abnormal . [facility] IrvingJgxwifgTTNHGNZZGJ8831-65-54 20:46:00 Test Item Value Reference Range Interpretation Comments Monocytes (test code = Monocytes) 11.1 2.0-12.0 [facility] IrvingShaaazqOOQTMYMJXB6929-72-14 20:46:00 Test Item Value Reference Range Interpretation Comments Eosinophils # (test code 0.4 See_Comment [A utomated message] The = Eosinophils #) system whic h generated this result tra nsmitted reference range : <=0.5. The reference r jase was not used to int erpret this result as normal/abnormal . [facility] IrvingCsxiizkWUPGHHWGAJ9533-22-99 20:46:00 Test Item Value Reference Range Interpretation Comments Monocytes # (test code 0.8 See_Comment [Aut omated message] The = Monocytes #) system which generated this result tra nsmitted reference range : <=0.8. The reference r jase was not used to int erpret this result as normal/abnormal . [facility] IrvingEdewgixSXQYXEVEHN3750-35-76 20:46:00 Test Item Value Reference Range Interpretation Comments Macrocyte (test code = 1+ *ABN*(12/19/14 3:46 Macrocyte) PM) [facility] IrvingIruwfvyDKYOYVEIEN1254-80-21 20:46:00 Test Item Value Reference Range Interpretation Comments Segs-Bands # (test code = Segs-Bands #) 4.5 1.5-8.1 [facility] [id number] 20:40:00 Test Item Value Reference Range Interpretation Comments UA Bili (test code = Negative *NA*(12/19/14 UA Bili) 3:40 PM) [facility] [id number] 20:40:00 Test Item Value Reference Range Interpretation Comments UA Leuk Est (test Negative (12/19/14 3:40 code = UA Leuk Est) PM) [facility] [id number] 20:40:00 Test Item Value Reference Range Interpretation Comments UA Nitrite (test code Negative (12/19/14 3:40 = UA Nitrite) PM) [facility] [id number] 20:40:00 Test Item Value Reference Range Interpretation Comments UA Urobilinogen (test code = UA 0.2 0.1-1.0 Urobilinogen) [facility] [id number] 20:40:00 Test Item Value Reference Range Interpretation Comments UA Blood (test code = Negative (12/19/14 3:40 UA Blood) PM) [facility] [id number] 20:40:00 Test Item Value Reference Range Interpretation Comments UA Sq Epi (test code = UA Sq Occasional /LPF Epi) [facility] [id number] 20:40:00 Test Item Value Reference Range Interpretation Comments UA Bacteria (test code = UA Occasional /HPF Bacteria) [facility] [id number] 20:40:00 Test Item Value Reference Range Interpretation Comments UA WBC (test code = UA WBC) 0-2 /HPF [facility] [id number] 20:40:00 Test Item Value Reference Range Interpretation Comments UA RBC (test None Seen See_Comment [Automated mes james] code = UA RBC) (12/19/14 3:40 PM) The syste m which generated this result transmitted ref erence range: <=2. The reference range was not used to int erpret this result as normal/abnormal . [facility] [id number] 20:40:00 Test Item Value Reference Range Interpretation Comments UA Ketones (test code = UA Ketones) 40 mg/dL [facility] [id number] 20:40:00 Test Item Value Reference Range Interpretation Comments UA Glucose (test code = UA >=1000 mg/dL Glucose) [facility] [id number] 20:40:00 Test Item Value Reference Range Interpretation Comments UA Protein (test code Negative (12/19/14 3:40 = UA Protein) PM) [facility] [id number] 20:40:00 Test Item Value Reference Range Interpretation Comments UA pH (test code = UA pH) 5.5 1 5.0-8.0 [facility] [id number] 20:40:00 Test Item Value Reference Range Interpretation Comments UA Spec Grav (test code *NA*(12/19/14 3:40 PM) = UA Spec Grav) [facility] [id number] 20:40:00 Test Item Value Reference Range Interpretation Comments UA Color (test code = Yellow *NA*(12/19/14 3:40 UA Color) PM) [facility] [id number] 20:40:00 Test Item Value Reference Range Interpretation Comments UA Turbidity (test code = Clear (12/19/14 3:40 UA Turbidity) PM) [facility] [id number] 20:40:00 Test Item Value Reference Range Interpretation Comments U Preg (test code = U Negative (12/19/14 3:40 Preg) PM) [facility] [id number] 21:39:00 Test Item Value Reference Range Interpretation Comments Lipase Lvl (test code = Lipase Lvl) 270 73-393 [facility] [id number] 21:39:00 Test Item Value Reference Range Interpretation Comments eGFR (test code = eGFR) 79 [facility] [id number] 21:39:00 Test Item Value Reference Range Interpretation Comments Chloride Lvl (test code = Chloride Lvl) 96 95-109 [facility] [id number] 21:39:00 Test Item Value Reference Range Interpretation Comments B/C Ratio (test code = B/C Ratio) 18 6-25 [facility] [id number] 21:39:00 Test Item Value Reference Range Interpretation Comments Potassium Lvl (test code = Potassium 4.6 3.5-5.1 Lvl) [facility]2015-05-26 21:39:00 Test Item Value Reference Range Interpretation Comments A/G Ratio (test code = A/G Ratio) 1.2 0.7-1.6 [facility]2015-05-26 21:39:00 Test Item Value Reference Range Interpretation Comments Globulin (test code = Globulin) 3.3 2.0-4.0 [place] [id number] 21:39:00 Test Item Value Reference Range Interpretation Comments Calcium Lvl (test code = Calcium Lvl) 9.3 8.5-10.5 [facility]2015-05-26 21:39:00 Test Item Value Reference Range Interpretation Comments AGAP (test code = AGAP) 14.6 10.0-20.0 [facility]2015-05-26 21:39:00 Test Item Value Reference Range Interpretation Comments CO2 (test code = CO2) 23 24-32 [place] 930775-05-26 21:39:00 Test Item Value Reference Range Interpretation Comments Bili Total (test code = Bili Total) 0.8 0.2-1.3 [place] 930775-05-26 21:39:00 Test Item Value Reference Range Interpretation Comments Albumin Lvl (test code = Albumin Lvl) 3.8 3.5-5.0 [facility]2015-05-26 21:39:00 Test Item Value Reference Range Interpretation Comments Total Protein (test code = Total 7.1 6.4-8.4 Protein) [facility]2015-05-26 21:39:00 Test Item Value Reference Range Interpretation Comments ALT (test code = ALT) 19 See_Comment [Auto mated message] The system which ge nerated this result transmit owen reference range : <=65. The reference range was not used to interpr et this result as fredi l/abnormal. [place] 930775-05-26 21:39:00 Test Item Value Reference Range Interpretation Comments Alk Phos (test code = Alk Phos) 108 39-136 [place] 930775-05-26 21:39:00 Test Item Value Reference Range Interpretation Comments AST (test code = AST) 14 See_Comment [Auto mated message] The system which ge nerated this result transmit owen reference range : <=37. The reference range was not used to interpr et this result as fredi l/abnormal. [facility]2015-05-26 21:39:00 Test Item Value Reference Range Interpretation Comments Glucose Lvl (test code = Glucose Lvl) 573 70-99 [facility]2015-05-26 21:39:00 Test Item Value Reference Range Interpretation Comments Creatinine Lvl (test code = Creatinine 1.0 0.5-1.4 Lvl) [facility]2015-05-26 21:39:00 Test Item Value Reference Range Interpretation Comments Sodium Lvl (test code = Sodium Lvl) 129 135-145 [facility]2015-05-26 21:39:00 Test Item Value Reference Range Interpretation Comments BUN (test code = BUN) 18 7-22 [place] [id number] 21:39:00 Test Item Value Reference Range Interpretation Comments S Preg (test code = S Negative *NA*(10/10/14 Preg) 4:39 PM) [facility] [id number] 21:39:00 Test Item Value Reference Range Interpretation Comments Hct (test code = Hct) 41.4 36.0-48.0 [facility] IrvingZlzryldMWTBLXBAFT1574-41-33 21:39:00 Test Item Value Reference Range Interpretation Comments Hgb (test code = Hgb) 13.9 12.0-16.0 [facility] [id number] 21:39:00 Test Item Value Reference Range Interpretation Comments MCV (test code = MCV) 97.4 80.0-98.0 [facility] IrvingUhdqhjnBYZMESVVVY6018-06-28 21:39:00 Test Item Value Reference Range Interpretation Comments MCH (test code = MCH) 32.6 pg 27.0-31.0 [facility] I[id number] 21:39:00 Test Item Value Reference Range Interpretation Comments MCHC (test code = MCHC) 33.5 32.0-36.0 [facility] IrvingCiofjplLGXRYFTDRR7904-79-58 21:39:00 Test Item Value Reference Range Interpretation Comments RDW (test code = RDW) 12.7 11.5-14.5 [facility] [id number] 21:39:00 Test Item Value Reference Range Interpretation Comments Platelet (test code = Platelet) 278 133-450 [facility] I[id number] 21:39:00 Test Item Value Reference Range Interpretation Comments MPV (test code = MPV) 8.7 7.4-10.4 [facility] IrvingUqouvabVEFLFDBKPZ5870-06-48 21:39:00 Test Item Value Reference Range Interpretation Comments WBC (test code = WBC) 10.1 3.7-10.4 [facility] IrvingQpbwkfcSKBZQSKCJD2716-76-27 21:39:00 Test Item Value Reference Range Interpretation Comments RBC (test code = RBC) 4.25 4.20-5.40 [facility] [id number] 21:39:00 Test Item Value Reference Range Interpretation Comments Eosinophils # (test code 0.6 See_Comment [A utomated message] The = Eosinophils #) system whic h generated this result tra nsmitted reference range : <=0.5. The reference r jase was not used to int erpret this result as normal/abnormal . [facility] [id number] 21:39:00 Test Item Value Reference Range Interpretation Comments Monocytes # (test code 0.4 See_Comment [Aut omated message] The = Monocytes #) system which generated this result tra nsmitted reference range : <=0.8. The reference r jase was not used to int erpret this result as normal/abnormal . [facility] IrvingAztsgneZUQUDRZABE0433-18-23 21:39:00 Test Item Value Reference Range Interpretation Comments Basophils # (test code 0.1 See_Comment [Aut omated message] The = Basophils #) system which generated this result tra nsmitted reference range : <=0.2. The reference r jase was not used to int erpret this result as normal/abnormal . [facility] [id number] 21:39:00 Test Item Value Reference Range Interpretation Comments Eosinophils (test code = 5.5 See_Comment [A utomated message] The Eosinophils) system which ge nerated this result tra nsmitted reference range : <=4.0. The reference r jase was not used to int erpret this result as normal/abnormal . [facility] I[id number] 21:39:00 Test Item Value Reference Range Interpretation Comments Basophils (test code = 0.7 See_Comment [Aut omated message] The Basophils) system which ge nerated this result tra nsmitted reference range : <=1.0. The reference r jase was not used to int erpret this result as normal/abnormal . [facility] [id number] 21:39:00 Test Item Value Reference Range Interpretation Comments Segs-Bands # (test code = Segs-Bands #) 6.8 1.5-8.1 [facility] IrvingDputrkgATFXGLFCLV0623-69-04 21:39:00 Test Item Value Reference Range Interpretation Comments Lymphocytes # (test code = Lymphocytes 2.2 1.0-5.5 #) [facility] [id number] 21:39:00 Test Item Value Reference Range Interpretation Comments Segs (test code = Segs) 67.4 45.0-75.0 [facility] [id number] 21:39:00 Test Item Value Reference Range Interpretation Comments Lymphocytes (test code = Lymphocytes) 22.2 20.0-40.0 [facility] IrvingIqohikvGEYVZCLPUX6085-98-04 21:39:00 Test Item Value Reference Range Interpretation Comments Monocytes (test code = Monocytes) 4.2 2.0-12.0 [facility] [id number] 21:39:00 Test Item Value Reference Range Interpretation Comments UA Turbidity (test code = Clear (10/10/14 4:39 UA Turbidity) PM) [facility] AND [id number] 21:39:00 Test Item Value Reference Range Interpretation Comments UA Color (test code = Yellow *NA*(10/10/14 UA Color) 4:39 PM) [facility] [id number] 21:39:00 Test Item Value Reference Range Interpretation Comments UA Nitrite (test code Negative (10/10/14 4:39 = UA Nitrite) PM) [facility] AND [id number] 21:39:00 Test Item Value Reference Range Interpretation Comments UA Urobilinogen (test code = UA 0.2 0.1-1.0 Urobilinogen) [facility] [id number] 21:39:00 Test Item Value Reference Range Interpretation Comments UA Blood (test code = Negative (10/10/14 4:39 UA Blood) PM) [facility] AND [id number] 21:39:00 Test Item Value Reference Range Interpretation Comments UA Protein (test code Negative (10/10/14 4:39 = UA Protein) PM) [facility] AND [id number] 21:39:00 Test Item Value Reference Range Interpretation Comments UA Bili (test code = Negative *NA*(10/10/14 UA Bili) 4:39 PM) [facility] AND [id number] 21:39:00 Test Item Value Reference Range Interpretation Comments UA Ketones (test code = UA Ketones) 15 mg/dL [facility] AND [id number] 21:39:00 Test Item Value Reference Range Interpretation Comments UA Glucose (test code = UA >=1000 mg/dL Glucose) [facility] AND [id number] 21:39:00 Test Item Value Reference Range Interpretation Comments UA Leuk Est (test Negative (10/10/14 4:39 code = UA Leuk Est) PM) [facility] AND [id number] 21:39:00 Test Item Value Reference Range Interpretation Comments UA pH (test code = UA pH) 6.0 1 5.0-8.0 [facility] AND [id number] 21:39:00 Test Item Value Reference Range Interpretation Comments UA Spec Grav (test code *NA*(10/10/14 4:39 PM) = UA Spec Grav) [facility] AND [id number] 21:39:00 Test Item Value Reference Range Interpretation Comments UA Bacteria (test code = UA Occasional /HPF Bacteria) [facility] AND [id number] 21:39:00 Test Item Value Reference Range Interpretation Comments UA WBC (test code = UA WBC) 0-2 /HPF [facility] AND [id number] 21:39:00 Test Item Value Reference Range Interpretation Comments UA Sq Epi (test code = UA Sq Epi) Few /LPF [facility] AND [id number] 21:39:00 Test Item Value Reference Range Interpretation Comments UA RBC (test code = 0-2 /HPF See_Comment [Automa owen message] The UA RBC) system which ge nerated this result tra nsmitted reference range : <=2. The reference range was not used to interpr et this result as fredi l/abnormal. [facility]2015-04-23 15:30:00 Test Item Value Reference Range Interpretation Comments Ketone Quantitative (test code = Ketone 0.10 Quantitative) [facility]2015-04-23 10:09:00 Test Item Value Reference Range Interpretation Comments BUN (test code = BUN) 7 7-22 [place] 930775-04-23 10:09:00 Test Item Value Reference Range Interpretation Comments CO2 (test code = CO2) 25 24-32 [place] 930775-04-23 10:09:00 Test Item Value Reference Range Interpretation Comments Albumin Lvl (test code = Albumin Lvl) 2.8 3.5-5.0 [facility]2015-04-23 10:09:00 Test Item Value Reference Range Interpretation Comments eGFR (test code = eGFR) 122 [facility]2015-04-23 10:09:00 Test Item Value Reference Range Interpretation Comments ALT (test code = ALT) 175 See_Comment [Auto mated message] The system which ge nerated this result transmit owen reference range : <=65. The reference range was not used to interpr et this result as fredi l/abnormal. [facility]2015-04-23 10:09:00 Test Item Value Reference Range Interpretation Comments Bili Total (test code = Bili Total) 0.4 0.2-1.3 [facility]2015-04-23 10:09:00 Test Item Value Reference Range Interpretation Comments Alk Phos (test code = Alk Phos) 102 39-136 [facility]2015-04-23 10:09:00 Test Item Value Reference Range Interpretation Comments AST (test code = AST) 166 See_Comment [Auto mated message] The system which ge nerated this result transmit owen reference range : <=37. The reference range was not used to interpr et this result as fredi l/abnormal. [facility]2015-04-23 10:09:00 Test Item Value Reference Range Interpretation Comments Total Protein (test code = Total 5.7 6.4-8.4 Protein) [facility]2015-04-23 10:09:00 Test Item Value Reference Range Interpretation Comments Chloride Lvl (test code = Chloride Lvl) 106 95-109 [facility]2015-04-23 10:09:00 Test Item Value Reference Range Interpretation Comments Potassium Lvl (test code = Potassium 4.0 3.5-5.1 Lvl) [facility]2015-04-23 10:09:00 Test Item Value Reference Range Interpretation Comments Calcium Lvl (test code = Calcium Lvl) 8.3 8.5-10.5 [facility]2015-04-23 10:09:00 Test Item Value Reference Range Interpretation Comments Creatinine Lvl (test code = Creatinine 0.7 0.5-1.4 Lvl) [facility]2015-04-23 10:09:00 Test Item Value Reference Range Interpretation Comments Glucose Lvl (test code = Glucose Lvl) 134 70-99 [facility]2015-04-23 10:09:00 Test Item Value Reference Range Interpretation Comments Sodium Lvl (test code = Sodium Lvl) 139 135-145 [facility]2015-04-23 10:09:00 Test Item Value Reference Range Interpretation Comments A/G Ratio (test code = A/G Ratio) 1.0 0.7-1.6 [facility]2015-04-23 10:09:00 Test Item Value Reference Range Interpretation Comments Globulin (test code = Globulin) 2.9 2.0-4.0 [facility]2015-04-23 10:09:00 Test Item Value Reference Range Interpretation Comments AGAP (test code = AGAP) 12.0 10.0-20.0 [facility]2015-04-23 10:09:00 Test Item Value Reference Range Interpretation Comments B/C Ratio (test code = B/C Ratio) 10 6-25 [facility]2015-04-23 10:09:00 Test Item Value Reference Range Interpretation Comments Phosphorus (test code = Phosphorus) 2.5 2.5-4.5 [facility]2015-04-23 10:09:00 Test Item Value Reference Range Interpretation Comments Magnesium Lvl (test code = Magnesium 1.6 1.8-2.4 Lvl) [facility]2015-04-23 10:09:00 Test Item Value Reference Range Interpretation Comments Ketone Quantitative (test code = Ketone 0.07 Quantitative) [facility] [id number] 10:09:00 Test Item Value Reference Range Interpretation Comments Lymphocytes # (test code = Lymphocytes 2.8 1.0-5.5 #) [facility] [id number] 10:09:00 Test Item Value Reference Range Interpretation Comments Segs-Bands # (test code = Segs-Bands #) 3.0 1.5-8.1 [facility] [id number] 10:09:00 Test Item Value Reference Range Interpretation Comments Eosinophils # (test code 0.5 See_Comment [A utomated message] The = Eosinophils #) system whic h generated this result tra nsmitted reference range : <=0.5. The reference r jase was not used to int erpret this result as normal/abnormal . [facility] IrvingJzuzeavSLVBVCPWKJ4923-54-37 10:09:00 Test Item Value Reference Range Interpretation Comments Monocytes # (test code 0.4 See_Comment [Aut omated message] The = Monocytes #) system which generated this result tra nsmitted reference range : <=0.8. The reference r ajse was not used to int erpret this result as normal/abnormal . [facility] IrvingWshwaatUNBIDWKMJV4093-52-79 10:09:00 Test Item Value Reference Range Interpretation Comments Basophils (test code = 1.2 See_Comment [Aut omated message] The Basophils) system which ge nerated this result tra nsmitted reference range : <=1.0. The reference r jase was not used to int erpret this result as normal/abnormal . [facility] IrvingXnsuylxBTVYBEZTOG7831-12-19 10:09:00 Test Item Value Reference Range Interpretation Comments Eosinophils (test code = 7.7 See_Comment [A utomated message] The Eosinophils) system which ge nerated this result tra nsmitted reference range : <=4.0. The reference r jase was not used to int erpret this result as normal/abnormal . [facility] IrvingWqwdvfuOQCRMIRVOM6180-83-64 10:09:00 Test Item Value Reference Range Interpretation Comments Basophils # (test code 0.1 See_Comment [Aut omated message] The = Basophils #) system which generated this result tra nsmitted reference range : <=0.2. The reference r jase was not used to int erpret this result as normal/abnormal . [facility] IrvingEdgvbksKOKTFBMESZ0177-80-92 10:09:00 Test Item Value Reference Range Interpretation Comments Segs (test code = Segs) 43.8 45.0-75.0 [facility] IrvingAedleqePZWLIUWCQN8934-63-85 10:09:00 Test Item Value Reference Range Interpretation Comments Monocytes (test code = Monocytes) 5.8 2.0-12.0 [facility] IrvingDfzkvxdOQMNYNBCCH4662-58-65 10:09:00 Test Item Value Reference Range Interpretation Comments Lymphocytes (test code = Lymphocytes) 41.5 20.0-40.0 [facility] IrvingKpnnwreRKWFWQHLWJ7441-93-68 10:09:00 Test Item Value Reference Range Interpretation Comments MCH (test code = MCH) 33.3 pg 27.0-31.0 [facility] IrvingPghxaxvPKLIMQSKWI4999-68-61 10:09:00 Test Item Value Reference Range Interpretation Comments MCV (test code = MCV) 97.3 80.0-98.0 [facility] IrvingViwtwaaZYPNDSXHQP3735-05-73 10:09:00 Test Item Value Reference Range Interpretation Comments Platelet (test code = Platelet) 187 133-450 [facility] IrvingFjrfvccDUUQTCOHRS1630-72-73 10:09:00 Test Item Value Reference Range Interpretation Comments RDW (test code = RDW) 13.4 11.5-14.5 [facility] IrvingDrxjbuvXCUMYEPHIS6734-88-82 10:09:00 Test Item Value Reference Range Interpretation Comments MCHC (test code = MCHC) 34.2 32.0-36.0 [facility] IrvingBatmnusZKMRDIWHWO3160-86-35 10:09:00 Test Item Value Reference Range Interpretation Comments MPV (test code = MPV) 8.9 7.4-10.4 [facility] IrvingCbxcubfXNSAGHGBPL3633-38-75 10:09:00 Test Item Value Reference Range Interpretation Comments WBC (test code = WBC) 6.8 3.7-10.4 [facility] IrvingBgxdkovOASLHRPJGL5327-35-34 10:09:00 Test Item Value Reference Range Interpretation Comments RBC (test code = RBC) 3.43 4.20-5.40 [facility] IrvingMyvwszkBPTYCDZIXC1553-30-08 10:09:00 Test Item Value Reference Range Interpretation Comments Hct (test code = Hct) 33.3 36.0-48.0 [facility] IrvingXyvliyzIWBHJRSMWS5815-78-33 10:09:00 Test Item Value Reference Range Interpretation Comments Hgb (test code = Hgb) 11.4 12.0-16.0 [facility]2015-04-23 06:43:00 Test Item Value Reference Range Interpretation Comments Ketone Quantitative (test code = Ketone 0.16 Quantitative) [facility]2015-04-22 18:09:00 Test Item Value Reference Range Interpretation Comments Magnesium Lvl (test code = Magnesium 2.2 1.8-2.4 Lvl) [facility]2015-04-22 18:09:00 Test Item Value Reference Range Interpretation Comments eGFR (test code = eGFR) 128 [facility]2015-04-22 18:09:00 Test Item Value Reference Range Interpretation Comments Calcium Lvl (test code = Calcium Lvl) 8.4 8.5-10.5 [facility]2015-04-22 18:09:00 Test Item Value Reference Range Interpretation Comments AGAP (test code = AGAP) 12.2 10.0-20.0 [facility]2015-04-22 18:09:00 Test Item Value Reference Range Interpretation Comments CO2 (test code = CO2) 24 24-32 [facility]2015-04-22 18:09:00 Test Item Value Reference Range Interpretation Comments Chloride Lvl (test code = Chloride Lvl) 108 95-109 [facility]2015-04-22 18:09:00 Test Item Value Reference Range Interpretation Comments Potassium Lvl (test code = Potassium 4.2 3.5-5.1 Lvl) [facility]2015-04-22 18:09:00 Test Item Value Reference Range Interpretation Comments Creatinine Lvl (test code = Creatinine 0.6 0.5-1.4 Lvl) [facility]2015-04-22 18:09:00 Test Item Value Reference Range Interpretation Comments Sodium Lvl (test code = Sodium Lvl) 140 135-145 [facility]2015-04-22 18:09:00 Test Item Value Reference Range Interpretation Comments Glucose Lvl (test code = Glucose Lvl) 107 70-99 [facility]2015-04-22 18:09:00 Test Item Value Reference Range Interpretation Comments BUN (test code = BUN) 3 7-22 [facility]entonUkrgfreLIXLTZPNJH6339-31-88 14:41:00 Test Item Value Reference Range Interpretation Comments Hep B Core IgM (test Negative *NA*(09/06/14 code = Hep B Core 9:41 AM) IgM) [facility] DentonTmntxojIBUPMMKHXU1553-24-69 14:41:00 Test Item Value Reference Range Interpretation Comments Hep A IgM (test code Negative *NA*(09/06/14 = Hep A IgM) 9:41 AM) [facility] DentonArukhalOROYQBYGPE4483-40-78 14:41:00 Test Item Value Reference Range Interpretation Comments Hep Bs Ag (test code Negative *NA*(09/06/14 = Hep Bs Ag) 9:41 AM) [facility] DentonEpqunjsIEGSRGNCGC8788-17-25 14:41:00 Test Item Value Reference Range Interpretation Comments Hep C Ab (test code = Negative *NA*(09/06/14 Hep C Ab) 9:41 AM) [facility]2015-04-22 10:00:00 Test Item Value Reference Range Interpretation Comments Phosphorus (test code = Phosphorus) 2.5 2.5-4.5 [facility] DentonMiFi [id number] 10:00:00 Test Item Value Reference Range Interpretation Comments Magnesium Lvl (test code = Magnesium 1.7 1.8-2.4 Lvl) [facility]2015-04-22 10:00:00 Test Item Value Reference Range Interpretation Comments Globulin (test code = Globulin) 2.7 2.0-4.0 [facility]2015-04-22 10:00:00 Test Item Value Reference Range Interpretation Comments A/G Ratio (test code = A/G Ratio) 1.0 0.7-1.6 [facility]2015-04-22 10:00:00 Test Item Value Reference Range Interpretation Comments B/C Ratio (test code = B/C Ratio) 5 6-25 [facility]2015-04-22 10:00:00 Test Item Value Reference Range Interpretation Comments AGAP (test code = AGAP) 10.3 10.0-20.0 [facility]2015-04-22 10:00:00 Test Item Value Reference Range Interpretation Comments eGFR (test code = eGFR) 104 [facility]2015-04-22 10:00:00 Test Item Value Reference Range Interpretation Comments Chloride Lvl (test code = Chloride Lvl) 111 95-109 [facility]2015-04-22 10:00:00 Test Item Value Reference Range Interpretation Comments Potassium Lvl (test code = Potassium 4.3 3.5-5.1 Lvl) [facility]2015-04-22 10:00:00 Test Item Value Reference Range Interpretation Comments CO2 (test code = CO2) 23 24-32 [facility]2015-04-22 10:00:00 Test Item Value Reference Range Interpretation Comments Sodium Lvl (test code = Sodium Lvl) 140 135-145 [facility]2015-04-22 10:00:00 Test Item Value Reference Range Interpretation Comments Creatinine Lvl (test code = Creatinine 0.8 0.5-1.4 Lvl) [facility]2015-04-22 10:00:00 Test Item Value Reference Range Interpretation Comments ALT (test code = ALT) 156 See_Comment [Auto mated message] The system which ge nerated this result transmit owen reference range : <=65. The reference range was not used to interpr et this result as fredi l/abnormal. [facility]2015-04-22 10:00:00 Test Item Value Reference Range Interpretation Comments AST (test code = AST) 319 See_Comment [Auto mated message] The system which ge nerated this result transmit owen reference range : <=37. The reference range was not used to interpr et this result as fredi l/abnormal. [facility]2015-04-22 10:00:00 Test Item Value Reference Range Interpretation Comments Calcium Lvl (test code = Calcium Lvl) 8.0 8.5-10.5 [facility]2015-04-22 10:00:00 Test Item Value Reference Range Interpretation Comments Total Protein (test code = Total 5.4 6.4-8.4 Protein) [facility]2015-04-22 10:00:00 Test Item Value Reference Range Interpretation Comments Albumin Lvl (test code = Albumin Lvl) 2.7 3.5-5.0 [facility]2015-04-22 10:00:00 Test Item Value Reference Range Interpretation Comments Alk Phos (test code = Alk Phos) 86 39-136 [facility]2015-04-22 10:00:00 Test Item Value Reference Range Interpretation Comments Bili Total (test code = Bili Total) 0.2 0.2-1.3 [facility]2015-04-22 10:00:00 Test Item Value Reference Range Interpretation Comments Glucose Lvl (test code = Glucose Lvl) 154 70-99 [facility]2015-04-22 10:00:00 Test Item Value Reference Range Interpretation Comments BUN (test code = BUN) 4 7-22 [facility] IrvingTmjkazhLVQXNYUAUG4925-55-11 10:00:00 Test Item Value Reference Range Interpretation Comments Monocytes (test code = Monocytes) 6.5 2.0-12.0 [facility] IrvingOjcyrixSVSNYNSQNI4639-78-90 10:00:00 Test Item Value Reference Range Interpretation Comments Lymphocytes # (test code = Lymphocytes 2.8 1.0-5.5 #) [facility] IrvingZlxcdxnZVBTPVBHYS7762-71-17 10:00:00 Test Item Value Reference Range Interpretation Comments Segs-Bands # (test code = Segs-Bands #) 3.9 1.5-8.1 [facility] IrvingJywncreWPDAYYBDIU1889-48-17 10:00:00 Test Item Value Reference Range Interpretation Comments Basophils (test code = 1.1 See_Comment [Aut omated message] The Basophils) system which ge nerated this result tra nsmitted reference range : <=1.0. The reference r jase was not used to int erpret this result as normal/abnormal . [facility] IrvingFdomybhDXFQZZFERC6260-69-17 10:00:00 Test Item Value Reference Range Interpretation Comments Lymphocytes (test code = Lymphocytes) 36.1 20.0-40.0 [facility] IrvingItmduzsTTBKJIQJLT3965-21-39 10:00:00 Test Item Value Reference Range Interpretation Comments Segs (test code = Segs) 51.2 45.0-75.0 [facility] IrvingLfllmyyQPDBSOLFCE3136-79-71 10:00:00 Test Item Value Reference Range Interpretation Comments Macrocyte (test code = 1+ *ABN*(09/06/14 Macrocyte) 5:00 AM) [facility] IrvingNjjxdswIRDVDAEGQA7595-25-01 10:00:00 Test Item Value Reference Range Interpretation Comments Basophils # (test code 0.1 See_Comment [Aut omated message] The = Basophils #) system which generated this result tra nsmitted reference range : <=0.2. The reference r jase was not used to int erpret this result as normal/abnormal . [facility] IrvingSlqkkcqELJAHAATHY9464-41-06 10:00:00 Test Item Value Reference Range Interpretation Comments Eosinophils (test code = 5.1 See_Comment [A utomated message] The Eosinophils) system which ge nerated this result tra nsmitted reference range : <=4.0. The reference r jase was not used to int erpret this result as normal/abnormal . [facility] IrvingByxcpcrHEBSEQYZFR0951-55-07 10:00:00 Test Item Value Reference Range Interpretation Comments Eosinophils # (test code 0.4 See_Comment [A utomated message] The = Eosinophils #) system whic h generated this result tra nsmitted reference range : <=0.5. The reference r jase was not used to int erpret this result as normal/abnormal . [facility] IrvingAlztaelNCUFVHMIHH4432-97-05 10:00:00 Test Item Value Reference Range Interpretation Comments Monocytes # (test code 0.5 See_Comment [Aut omated message] The = Monocytes #) system which generated this result tra nsmitted reference range : <=0.8. The reference r jase was not used to int erpret this result as normal/abnormal . [facility] IrvingXibjeurOMUJWUWHNO8843-06-12 10:00:00 Test Item Value Reference Range Interpretation Comments MCH (test code = MCH) 33.6 pg 27.0-31.0 [facility] IrvingXwjzffrZEMUXQSVNM4864-02-86 10:00:00 Test Item Value Reference Range Interpretation Comments MCV (test code = MCV) 99.4 80.0-98.0 [facility] IrvingIsdnjalZHOWKENQGG4535-46-18 10:00:00 Test Item Value Reference Range Interpretation Comments Platelet (test code = Platelet) 184 133-450 [facility] IrvingFympqpvQVFCJFWONP8591-33-32 10:00:00 Test Item Value Reference Range Interpretation Comments MPV (test code = MPV) 8.6 7.4-10.4 [facility] IrvingNlzklbxSWABELTHGC9755-69-64 10:00:00 Test Item Value Reference Range Interpretation Comments RDW (test code = RDW) 13.5 11.5-14.5 [facility] IrvingNcbhfixSHBPQKEDEP0955-46-04 10:00:00 Test Item Value Reference Range Interpretation Comments MCHC (test code = MCHC) 33.8 32.0-36.0 [facility] IrvingAgqiyltFLXZPBOTPJ3226-84-57 10:00:00 Test Item Value Reference Range Interpretation Comments RBC (test code = RBC) 3.47 4.20-5.40 [facility] IrvingAgrqtcvTDFJCVQWDW2596-50-31 10:00:00 Test Item Value Reference Range Interpretation Comments Hct (test code = Hct) 34.5 36.0-48.0 [facility] IrvingAyrwdqvKIUYHMUHOX5193-87-29 10:00:00 Test Item Value Reference Range Interpretation Comments Hgb (test code = Hgb) 11.7 12.0-16.0 [facility] IrvingMquklzrJHJPEKHYHV7759-00-58 10:00:00 Test Item Value Reference Range Interpretation Comments WBC (test code = WBC) 7.7 3.7-10.4 [facility] IrvingSjuomxyNGLEHJJUNQ9819-82-40 13:00:00 Test Item Value Reference Range Interpretation Comments WBC (test code = WBC) 8.4 3.7-10.4 [facility] IrvingCnqsmioGAGQVAOHSN3331-21-80 13:00:00 Test Item Value Reference Range Interpretation Comments Hgb (test code = Hgb) 11.7 12.0-16.0 [facility] IrvingWugnsvjVGUSCNFYBP6944-98-10 13:00:00 Test Item Value Reference Range Interpretation Comments MPV (test code = MPV) 8.9 7.4-10.4 [facility] IrvingJufsdatFOXFXKUDUK1734-92-84 13:00:00 Test Item Value Reference Range Interpretation Comments MCV (test code = MCV) 99.3 80.0-98.0 [facility] IrvingNoatzouPRGFWKDBLG2305-91-70 13:00:00 Test Item Value Reference Range Interpretation Comments RBC (test code = RBC) 3.49 4.20-5.40 [facility] IrvingRcrenzuTSTDILSDUO9695-49-18 13:00:00 Test Item Value Reference Range Interpretation Comments Hct (test code = Hct) 34.6 36.0-48.0 [facility] IrvingEeocyckIVSJXAIEOY3166-49-42 13:00:00 Test Item Value Reference Range Interpretation Comments MCH (test code = MCH) 33.5 pg 27.0-31.0 [facility] IrvingAkvxeadHUNLIXPWKJ6955-34-89 13:00:00 Test Item Value Reference Range Interpretation Comments Platelet (test code = Platelet) 219 133-450 [facility] IrvingTupcijuICJANGSUIM5294-43-10 13:00:00 Test Item Value Reference Range Interpretation Comments RDW (test code = RDW) 13.7 11.5-14.5 [facility] IrvingOpijwfwLNPJGHFOJE6371-82-18 13:00:00 Test Item Value Reference Range Interpretation Comments MCHC (test code = MCHC) 33.7 32.0-36.0 [facility] IrvingQvnoowuLZIMHOJTUQ7637-41-12 13:00:00 Test Item Value Reference Range Interpretation Comments Macrocyte (test code = 1+ *ABN*(09/05/14 Macrocyte) 8:00 AM) [facility] IrvingIjokplzCXHOSTZRPE4677-38-67 13:00:00 Test Item Value Reference Range Interpretation Comments Basophils # (test code 0.1 See_Comment [Aut omated message] The = Basophils #) system which generated this result tra nsmitted reference range : <=0.2. The reference r jase was not used to int erpret this result as normal/abnormal . [facility] IrvingYilglmqCHSTMJUZTT8045-61-04 13:00:00 Test Item Value Reference Range Interpretation Comments Basophils (test code = 0.8 See_Comment [Aut omated message] The Basophils) system which ge nerated this result tra nsmitted reference range : <=1.0. The reference r jase was not used to int erpret this result as normal/abnormal . [facility] IrvingJhqknikQHSBSDFZCD1835-72-39 13:00:00 Test Item Value Reference Range Interpretation Comments Lymphocytes (test code = Lymphocytes) 36.4 20.0-40.0 [facility] IrvingJqydojsPPFSFVWWXN7410-11-09 13:00:00 Test Item Value Reference Range Interpretation Comments Segs (test code = Segs) 50.9 45.0-75.0 [facility] IrvingVhuqrwwLLDEDZUKTN7265-29-35 13:00:00 Test Item Value Reference Range Interpretation Comments Monocytes (test code = Monocytes) 6.6 2.0-12.0 [facility] IrvingUjvknknTYNRDZJJRZ0264-79-85 13:00:00 Test Item Value Reference Range Interpretation Comments Eosinophils # (test code 0.4 See_Comment [A utomated message] The = Eosinophils #) system whic h generated this result tra nsmitted reference range : <=0.5. The reference r jase was not used to int erpret this result as normal/abnormal . [facility] IrvingMvnbyeeLAEDQVWYTG8403-69-38 13:00:00 Test Item Value Reference Range Interpretation Comments Lymphocytes # (test code = Lymphocytes 3.1 1.0-5.5 #) [facility] IrvingOruhpkxBUADVEUSSR4183-40-83 13:00:00 Test Item Value Reference Range Interpretation Comments Monocytes # (test code 0.6 See_Comment [Aut omated message] The = Monocytes #) system which generated this result tra nsmitted reference range : <=0.8. The reference r jase was not used to int erpret this result as normal/abnormal . [facility] IrvingEgjsczhCQFMWYNZMI0019-29-02 13:00:00 Test Item Value Reference Range Interpretation Comments Eosinophils (test code = 5.3 See_Comment [A utomated message] The Eosinophils) system which ge nerated this result tra nsmitted reference range : <=4.0. The reference r jase was not used to int erpret this result as normal/abnormal . [facility]iCMOFAUXUVV7345-[facility]-58 13:00:00 Test Item Value Reference Range Interpretation Comments Segs-Bands # (test code = Segs-Bands #) 4.3 1.5-8.1 [facility] DentonCHEM [id number] 09:55:00 Test Item Value Reference Range Interpretation Comments Phosphorus (test code = Phosphorus) 2.3 2.5-4.5 [facility] [id number] 21:18:00 Test Item Value Reference Range Interpretation Comments Hgb A1C (test code = Hgb A1C) 9.9 [facility] DentonCHEM [id number] 17:20:00 Test Item Value Reference Range Interpretation Comments Lipase Lvl (test code = Lipase Lvl) 154 73-393 [facility] AND [id number] 17:20:00 Test Item Value Reference Range Interpretation Comments UA Bacteria (test code = UA Few /HPF Bacteria) [facility] [id number] 17:20:00 Test Item Value Reference Range Interpretation Comments UA WBC (test code = UA WBC) 0-2 /HPF [facility] [id number] 17:20:00 Test Item Value Reference Range Interpretation Comments UA RBC (test code = 0-2 /HPF See_Comment [Automa owen message] The UA RBC) system which ge nerated this result tra nsmitted reference range : <=2. The reference range was not used to interpr et this result as fredi l/abnormal. [facility] AND [id number] 17:20:00 Test Item Value Reference Range Interpretation Comments UA Sq Epi (test code = UA Sq Epi) Few /LPF [facility] AND [id number] 17:20:00 Test Item Value Reference Range Interpretation Comments UA Turbidity (test code = Clear (09/04/14 12:20 UA Turbidity) PM) [facility] AND [id number] 17:20:00 Test Item Value Reference Range Interpretation Comments UA Color (test code = UA Color) STRAW [facility] AND [id number] 17:20:00 Test Item Value Reference Range Interpretation Comments UA Ketones (test code = UA >=80 mg/dL Ketones) [facility] AND [id number] 17:20:00 Test Item Value Reference Range Interpretation Comments UA Spec Grav (test code = UA Spec 1.010 1 Grav) [facility] AND [id number] 17:20:00 Test Item Value Reference Range Interpretation Comments UA Glucose (test code = UA >=1000 mg/dL Glucose) [facility] AND [id number] 17:20:00 Test Item Value Reference Range Interpretation Comments UA pH (test code = UA pH) 5.5 1 5.0-8.0 [facility] AND [id number] 17:20:00 Test Item Value Reference Range Interpretation Comments UA Protein (test code Negative (09/04/14 12:20 = UA Protein) PM) [facility] AND [id number] 17:20:00 Test Item Value Reference Range Interpretation Comments UA Leuk Est (test Negative (09/04/14 12:20 code = UA Leuk Est) PM) [facility] AND [id number] 17:20:00 Test Item Value Reference Range Interpretation Comments UA Urobilinogen (test code = UA 0.2 0.1-1.0 Urobilinogen) [facility] AND [id number] 17:20:00 Test Item Value Reference Range Interpretation Comments UA Nitrite (test code Negative (09/04/14 12:20 = UA Nitrite) PM) [facility] [id number] 17:20:00 Test Item Value Reference Range Interpretation Comments UA Bili (test code = Negative *NA*(09/04/14 UA Bili) 12:20 PM) [facility] [id number] 17:20:00 Test Item Value Reference Range Interpretation Comments UA Blood (test code = Negative (09/04/14 12:20 UA Blood) PM) [facility] [id number] 17:20:00 Test Item Value Reference Range Interpretation Comments U Preg (test code = U Negative (09/04/14 12:20 Preg) PM) [facility] [id number] 16:28:00 Test Item Value Reference Range Interpretation Comments Troponin-I (test code no gt See_Comment [Auto mated message] The = Troponin-I) system which g enerated this result transmit owen reference range : <=0.40. The reference r jase was not used to interpr et this result as fredi l/abnormal. [facility] [id number] 16:28:00 Test Item Value Reference Range Interpretation Comments CK MB (test code = CK MB) 0.6 0.5-3.6 [facility] [id number] 16:28:00 Test Item Value Reference Range Interpretation Comments Total CK (test code = Total CK) 55 12-191 [facility] [id number] 16:28:00 Test Item Value Reference Range Interpretation Comments CK MB Index (test 1.1 See_Comment [Automate d message] The code = CK MB Index) system w [facility] generated this result transmit owen reference range : <=2.5. The reference range was not used to interpr et this result as fredi l/abnormal. [facility] [id number] 16:28:00 Test Item Value Reference Range Interpretation Comments Albumin Lvl (test code = Albumin Lvl) 4.2 3.5-5.0 [facility] [id number] 16:28:00 Test Item Value Reference Range Interpretation Comments AST (test code = AST) 16 See_Comment [Auto mated message] The system which ge nerated this result transmit owen reference range : <=37. The reference range was not used to interpr et this result as fredi l/abnormal. [facility]2015-04-20 16:28:00 Test Item Value Reference Range Interpretation Comments ALT (test code = ALT) 24 See_Comment [Auto mated message] The system which ge nerated this result transmit owen reference range : <=65. The reference range was not used to interpr et this result as fredi l/abnormal. [facility]2015-04-20 16:28:00 Test Item Value Reference Range Interpretation Comments B/C Ratio (test code = B/C Ratio) 20 6-25 [facility]2015-04-20 16:28:00 Test Item Value Reference Range Interpretation Comments A/G Ratio (test code = A/G Ratio) 1.0 0.7-1.6 [facility]2015-04-20 16:28:00 Test Item Value Reference Range Interpretation Comments Total Protein (test code = Total 8.5 6.4-8.4 Protein) [facility]2015-04-20 16:28:00 Test Item Value Reference Range Interpretation Comments Globulin (test code = Globulin) 4.3 2.0-4.0 [facility]2015-04-20 16:28:00 Test Item Value Reference Range Interpretation Comments Bili Total (test code = Bili Total) 0.8 0.2-1.3 [facility]2015-04-20 16:28:00 Test Item Value Reference Range Interpretation Comments Alk Phos (test code = Alk Phos) 135 39-136 [facility]WzewvbzUIEUVIIFSPSAU5129-56-06 16:28:00 Test Item Value Reference Range Interpretation Comments S Preg (test code = S Negative *NA*(09/04/14 Preg) 11:28 AM) [facility] IrvingUkjniadIULGYAVAWB1996-90-60 16:28:00 Test Item Value Reference Range Interpretation Comments INR (test code = INR) 0.93 0.85-1.17 [facility] [id number] 16:28:00 Test Item Value Reference Range Interpretation Comments PTT (test code = PTT) 27.4 s 22.9-35.8 [facility] IrvingVfouuubEMFZCKDQMU3450-98-76 16:28:00 Test Item Value Reference Range Interpretation Comments PT (test code = PT) 12.4 s 12.0-14.7 [facility] IrvingDlidtgvFQSBVDDVWP8772-08-26 16:28:00 Test Item Value Reference Range Interpretation Comments Macrocyte (test code = 2+ *ABN*(09/04/14 Macrocyte) 11:28 AM) [facility]2014-09-10 09:22:00 Test Item Value Reference Range Interpretation Comments eGFR (test code = eGFR) 104 [facility]2014-09-10 09:22:00 Test Item Value Reference Range Interpretation Comments B/C Ratio (test code = B/C Ratio) 19 6-25 [facility]2014-09-10 09:22:00 Test Item Value Reference Range Interpretation Comments CO2 (test code = CO2) 26 24-32 [facility]2014-09-10 09:22:00 Test Item Value Reference Range Interpretation Comments AGAP (test code = AGAP) 11.9 10.0-20.0 [facility]2014-09-10 09:22:00 Test Item Value Reference Range Interpretation Comments Calcium Lvl (test code = Calcium Lvl) 8.6 8.5-10.5 [facility]2014-09-10 09:22:00 Test Item Value Reference Range Interpretation Comments Chloride Lvl (test code = Chloride Lvl) 102 95-109 [facility]2014-09-10 09:22:00 Test Item Value Reference Range Interpretation Comments Creatinine Lvl (test code = Creatinine 0.8 0.5-1.4 Lvl) [facility]2014-09-10 09:22:00 Test Item Value Reference Range Interpretation Comments Sodium Lvl (test code = Sodium Lvl) 135 135-145 [facility]2014-09-10 09:22:00 Test Item Value Reference Range Interpretation Comments Potassium Lvl (test code = Potassium 4.9 3.5-5.1 Lvl) [facility]2014-09-10 09:22:00 Test Item Value Reference Range Interpretation Comments BUN (test code = BUN) 15 - [facility]2014-09-10 09:22:00 Test Item Value Reference Range Interpretation Comments Bili Total (test code = Bili Total) 0.3 0.2-1.3 [facility]2014-09-10 09:22:00 Test Item Value Reference Range Interpretation Comments AST (test code = AST) 288 See_Comment [Auto mated message] The system which ge nerated this result transmit owen reference range : <=37. The reference range was not used to interpr et this result as fredi l/abnormal. [facility]2014-09-10 09:22:00 Test Item Value Reference Range Interpretation Comments Alk Phos (test code = Alk Phos) 112 39-136 [facility]2014-09-10 09:22:00 Test Item Value Reference Range Interpretation Comments ALT (test code = ALT) 161 See_Comment [Auto mated message] The system which ge nerated this result transmit owen reference range : <=65. The reference range was not used to interpr et this result as fredi l/abnormal. [facility]2014-09-10 09:22:00 Test Item Value Reference Range Interpretation Comments A/G Ratio (test code = A/G Ratio) 0.8 0.7-1.6 [facility]2014-09-10 09:22:00 Test Item Value Reference Range Interpretation Comments Total Protein (test code = Total 6.5 6.4-8.4 Protein) [facility]2014-09-10 09:22:00 Test Item Value Reference Range Interpretation Comments Albumin Lvl (test code = Albumin Lvl) 2.9 3.5-5.0 [facility]2014-09-10 09:22:00 Test Item Value Reference Range Interpretation Comments Globulin (test code = Globulin) 3.6 2.0-4.0 [facility]2014-09-10 09:22:00 Test Item Value Reference Range Interpretation Comments Glucose Lvl (test code = Glucose Lvl) 407 70-99 [facility] IrvingRmyohvqBETGRXRCUR2113-51-15 09:22:00 Test Item Value Reference Range Interpretation Comments Platelet (test code = Platelet) 238 133-450 [facility] IrvingZfumzieSHANULDPVT5626-08-32 09:22:00 Test Item Value Reference Range Interpretation Comments MCHC (test code = MCHC) 35.0 32.0-36.0 [facility] IrvingPfhmnpnUKJBDVFQOJ8482-60-12 09:22:00 Test Item Value Reference Range Interpretation Comments RDW (test code = RDW) 12.6 11.5-14.5 [facility] IrvingLoharikRRDFNGHKAI3619-98-73 09:22:00 Test Item Value Reference Range Interpretation Comments MPV (test code = MPV) 8.8 7.4-10.4 [facility] IrvingGoodifnSUTIGWSYRW0791-00-43 09:22:00 Test Item Value Reference Range Interpretation Comments RBC (test code = RBC) 3.88 4.20-5.40 [facility] IrvingFmfsapdXWRQEOWPUP4471-81-65 09:22:00 Test Item Value Reference Range Interpretation Comments Hgb (test code = Hgb) 13.0 12.0-16.0 [facility] IrvingYbviuuePCNPUVUHFJ2639-19-03 09:22:00 Test Item Value Reference Range Interpretation Comments MCH (test code = MCH) 33.6 pg 27.0-31.0 [facility] IrvingGnytxgdDWZFVOYDLQ8827-48-46 09:22:00 Test Item Value Reference Range Interpretation Comments Hct (test code = Hct) 37.3 36.0-48.0 [facility] IrvingPorkrdgPCXSLFADDB3947-65-88 09:22:00 Test Item Value Reference Range Interpretation Comments MCV (test code = MCV) 96.0 80.0-98.0 [facility] IrvingZtppgerOKSSUINNXD0560-19-69 09:22:00 Test Item Value Reference Range Interpretation Comments WBC (test code = WBC) 6.4 3.7-10.4 [facility] IrvingHeejhasIJKGJFJGCC9138-10-85 09:22:00 Test Item Value Reference Range Interpretation Comments Eosinophils # (test code 0.5 See_Comment [A utomated message] The = Eosinophils #) system whic h generated this result tra nsmitted reference range : <=0.5. The reference r jase was not used to int erpret this result as normal/abnormal . [facility] IrvingMzbhgorTLKHGXTHUE9753-41-36 09:22:00 Test Item Value Reference Range Interpretation Comments Lymphocytes # (test code = Lymphocytes 2.1 1.0-5.5 #) [facility] IrvingHmfaeogYTMDUVXBQH0494-39-67 09:22:00 Test Item Value Reference Range Interpretation Comments Monocytes # (test code 0.3 See_Comment [Aut omated message] The = Monocytes #) system which generated this result tra nsmitted reference range : <=0.8. The reference r jase was not used to int erpret this result as normal/abnormal . [facility] IrvingVlbjryiTIARFSORUH2775-67-20 09:22:00 Test Item Value Reference Range Interpretation Comments Segs-Bands # (test code = Segs-Bands #) 3.4 1.5-8.1 [facility] IrvingYxvtcnlISQTQEPMVD1331-42-08 09:22:00 Test Item Value Reference Range Interpretation Comments Eosinophils (test code = 7.2 See_Comment [A utomated message] The Eosinophils) system which ge nerated this result tra nsmitted reference range : <=4.0. The reference r jase was not used to int erpret this result as normal/abnormal . [facility] IrvingWqtwndpOAPBACUYFM0335-76-02 09:22:00 Test Item Value Reference Range Interpretation Comments Basophils (test code = 0.8 See_Comment [Aut omated message] The Basophils) system which ge nerated this result tra nsmitted reference range : <=1.0. The reference r jase was not used to int erpret this result as normal/abnormal . [facility] IrvingTfooriwBIXCKUPTQN7560-77-54 09:22:00 Test Item Value Reference Range Interpretation Comments Lymphocytes (test code = Lymphocytes) 33.7 20.0-40.0 [facility] IrvingMawmojuEAOHOWDGDN4661-04-57 09:22:00 Test Item Value Reference Range Interpretation Comments Monocytes (test code = Monocytes) 5.2 2.0-12.0 [facility] IrvingFitfirjHNLDZYFKZL9355-51-51 09:22:00 Test Item Value Reference Range Interpretation Comments Segs (test code = Segs) 53.1 45.0-75.0 [facility]2014-09-09 17:00:00 Test Item Value Reference Range Interpretation Comments eGFR (test code = eGFR) 123 [facility]2014-09-09 17:00:00 Test Item Value Reference Range Interpretation Comments Creatinine Lvl (test code = Creatinine 0.7 0.5-1.4 Lvl) [facility]2014-09-09 17:00:00 Test Item Value Reference Range Interpretation Comments Glucose Lvl (test code = Glucose Lvl) 204 70-99 [facility]2014-09-09 17:00:00 Test Item Value Reference Range Interpretation Comments BUN (test code = BUN) 10 7-22 [facility]2014-09-09 17:00:00 Test Item Value Reference Range Interpretation Comments CO2 (test code = CO2) 25 24-32 [facility]2014-09-09 17:00:00 Test Item Value Reference Range Interpretation Comments AGAP (test code = AGAP) 9.1 10.0-20.0 [facility]2014-09-09 17:00:00 Test Item Value Reference Range Interpretation Comments Chloride Lvl (test code = Chloride Lvl) 108 95-109 [facility]2014-09-09 17:00:00 Test Item Value Reference Range Interpretation Comments Calcium Lvl (test code = Calcium Lvl) 8.4 8.5-10.5 [facility]2014-09-09 17:00:00 Test Item Value Reference Range Interpretation Comments Potassium Lvl (test code = Potassium 4.1 3.5-5.1 Lvl) [facility]2014-09-09 17:00:00 Test Item Value Reference Range Interpretation Comments Sodium Lvl (test code = Sodium Lvl) 138 135-145 [facility]2014-09-09 12:50:47 Test Item Value Reference Range Interpretation Comments Lipase Lvl (test code = Lipase Lvl) 251 73-393 [facility]2014-09-09 11:44:09 Test Item Value Reference Range Interpretation Comments Lactic Acid Lvl (test code = Lactic 3.8 0.5-2.2 Acid Lvl) [facility]2014-09-09 06:38:00 Test Item Value Reference Range Interpretation Comments Ketone Quantitative (test code = Ketone 0.41 Quantitative) [facility]2014-09-09 06:38:00 Test Item Value Reference Range Interpretation Comments eGFR (test code = eGFR) 58 [facility]2014-09-09 06:38:00 Test Item Value Reference Range Interpretation Comments Alk Phos (test code = Alk Phos) 120 39-136 [facility]2014-09-09 06:38:00 Test Item Value Reference Range Interpretation Comments AST (test code = AST) 47 See_Comment [Auto mated message] The system which ge nerated this result transmit owen reference range : <=37. The reference range was not used to interpr et this result as fredi l/abnormal. [facility]2014-09-09 06:38:00 Test Item Value Reference Range Interpretation Comments Bili Total (test code = Bili Total) 0.3 0.2-1.3 [facility]2014-09-09 06:38:00 Test Item Value Reference Range Interpretation Comments Glucose Lvl (test code = Glucose Lvl) 845 70-99 [facility]2014-09-09 06:38:00 Test Item Value Reference Range Interpretation Comments BUN (test code = BUN) 20 7-22 [facility]2014-09-09 06:38:00 Test Item Value Reference Range Interpretation Comments Creatinine Lvl (test code = Creatinine 1.3 0.5-1.4 Lvl) [facility]2014-09-09 06:38:00 Test Item Value Reference Range Interpretation Comments B/C Ratio (test code = B/C Ratio) 15 6-25 [facility]2014-09-09 06:38:00 Test Item Value Reference Range Interpretation Comments Calcium Lvl (test code = Calcium Lvl) 9.1 8.5-10.5 [facility]2014-09-09 06:38:00 Test Item Value Reference Range Interpretation Comments CO2 (test code = CO2) 22 24-32 [facility]2014-09-09 06:38:00 Test Item Value Reference Range Interpretation Comments AGAP (test code = AGAP) 17.0 10.0-20.0 [facility]2014-09-09 06:38:00 Test Item Value Reference Range Interpretation Comments Potassium Lvl (test code = Potassium 5.0 3.5-5.1 Lvl) [facility]2014-09-09 06:38:00 Test Item Value Reference Range Interpretation Comments Chloride Lvl (test code = Chloride Lvl) 92 95-109 [facility]2014-09-09 06:38:00 Test Item Value Reference Range Interpretation Comments Sodium Lvl (test code = Sodium Lvl) 126 135-145 [facility]2014-09-09 06:38:00 Test Item Value Reference Range Interpretation Comments ALT (test code = ALT) 60 See_Comment [Auto mated message] The system which ge nerated this result transmit owen reference range : <=65. The reference range was not used to interpr et this result as fredi l/abnormal. [facility]2014-09-09 06:38:00 Test Item Value Reference Range Interpretation Comments A/G Ratio (test code = A/G Ratio) 0.9 0.7-1.6 [facility]2014-09-09 06:38:00 Test Item Value Reference Range Interpretation Comments Globulin (test code = Globulin) 3.9 2.0-4.0 [facility]2014-09-09 06:38:00 Test Item Value Reference Range Interpretation Comments Total Protein (test code = Total 7.4 6.4-8.4 Protein) [facility]2014-09-09 06:38:00 Test Item Value Reference Range Interpretation Comments Albumin Lvl (test code = Albumin Lvl) 3.5 3.5-5.0 [facility] IrvingFwlawguJLTKYJIXAF4220-15-72 06:38:00 Test Item Value Reference Range Interpretation Comments PTT (test code = PTT) 23.0 s 22.9-35.8 [facility] IrvingKwncjdnCUBWHASYYO3090-22-45 06:38:00 Test Item Value Reference Range Interpretation Comments INR (test code = INR) 0.86 0.85-1.17 [facility] IrvingBomabmnXZTCYEOCVV7520-19-36 06:38:00 Test Item Value Reference Range Interpretation Comments PT (test code = PT) 11.7 s 12.0-14.7 [facility] IrvingZvijpgkQOMZHEJUQB1807-47-92 06:38:00 Test Item Value Reference Range Interpretation Comments RDW (test code = RDW) 13.1 11.5-14.5 [facility] IrvingPwmpldxCPYLAOUUGA2841-35-27 06:38:00 Test Item Value Reference Range Interpretation Comments MPV (test code = MPV) 8.9 7.4-10.4 [facility] IrvingRlwxtmzMHECZFNKVU3223-81-43 06:38:00 Test Item Value Reference Range Interpretation Comments Platelet (test code = Platelet) 257 133-450 [facility] IrvingSgljoovUPYABZJHLL3507-86-43 06:38:00 Test Item Value Reference Range Interpretation Comments MCHC (test code = MCHC) 33.7 32.0-36.0 [facility] IrvingRgxudnsKGCPFMZZNZ6055-42-95 06:38:00 Test Item Value Reference Range Interpretation Comments MCH (test code = MCH) 33.4 pg 27.0-31.0 [facility] IrvingWojhhxiZMQJOYLOSY7910-37-59 06:38:00 Test Item Value Reference Range Interpretation Comments MCV (test code = MCV) 99.2 80.0-98.0 [facility] IrvingOrgcljyBLNKTIZGBZ1057-27-74 06:38:00 Test Item Value Reference Range Interpretation Comments Hct (test code = Hct) 40.3 36.0-48.0 [facility] IrvingNawwutkJTVFWCRZPI7114-34-43 06:38:00 Test Item Value Reference Range Interpretation Comments Hgb (test code = Hgb) 13.6 12.0-16.0 [facility] IrvingCjekjqhDQOABPSZZK5043-84-69 06:38:00 Test Item Value Reference Range Interpretation Comments RBC (test code = RBC) 4.06 4.20-5.40 [facility] IrvingPycickvDAIOUYUZLC5567-87-81 06:38:00 Test Item Value Reference Range Interpretation Comments WBC (test code = WBC) 6.8 3.7-10.4 [facility] IrvingWumaiucJOWDOGYUCL4259-73-68 06:38:00 Test Item Value Reference Range Interpretation Comments Monocytes # (test code 0.4 See_Comment [Aut omated message] The = Monocytes #) system which generated this result tra nsmitted reference range : <=0.8. The reference r jase was not used to int erpret this result as normal/abnormal . [facility] IrvingSsqcgttGIGUCCWPSC4214-69-92 06:38:00 Test Item Value Reference Range Interpretation Comments Macrocyte (test code = 1+ *ABN*(01/24/14 1:38 Macrocyte) AM) [facility] IrvingJpbfrbgCOFEXLSIYR9297-25-05 06:38:00 Test Item Value Reference Range Interpretation Comments Eosinophils # (test code 0.6 See_Comment [A utomated message] The = Eosinophils #) system whic h generated this result tra nsmitted reference range : <=0.5. The reference r jase was not used to int erpret this result as normal/abnormal . [facility] IrvingHnvqukdWFLXUTRAJN1088-00-49 06:38:00 Test Item Value Reference Range Interpretation Comments Basophils (test code = 0.4 See_Comment [Aut omated message] The Basophils) system which ge nerated this result tra nsmitted reference range : <=1.0. The reference r jase was not used to int erpret this result as normal/abnormal . [facility] IrvingFwijwyoYATOAPFYVM6538-86-86 06:38:00 Test Item Value Reference Range Interpretation Comments Segs-Bands # (test code = Segs-Bands #) 4.0 1.5-8.1 [facility] IrvingRhrwvffPZODQGLYOP2533-59-46 06:38:00 Test Item Value Reference Range Interpretation Comments Lymphocytes # (test code = Lymphocytes 1.8 1.0-5.5 #) [facility] IrvingDjiymozDLHBPLSJAN1949-99-95 06:38:00 Test Item Value Reference Range Interpretation Comments Eosinophils (test code = 9.2 See_Comment [A utomated message] The Eosinophils) system which ge nerated this result tra nsmitted reference range : <=4.0. The reference r jase was not used to int erpret this result as normal/abnormal . [facility] IrvingVbndimoYNFLITMODN2603-96-00 06:38:00 Test Item Value Reference Range Interpretation Comments Monocytes (test code = Monocytes) 5.6 2.0-12.0 [facility] IrvingZkejdyhLIUZHKFNZC4949-07-46 06:38:00 Test Item Value Reference Range Interpretation Comments Lymphocytes (test code = Lymphocytes) 26.6 20.0-40.0 [facility] IrvingXgddffkVYWWYUWTLZ5294-81-14 06:38:00 Test Item Value Reference Range Interpretation Comments Segs (test code = Segs) 58.2 45.0-75.0 [facility] AND [id number] 05:40:00 Test Item Value Reference Range Interpretation Comments UA Urobilinogen (test code = UA 0.2 0.1-1.0 Urobilinogen) [facility] AND [id number] 05:40:00 Test Item Value Reference Range Interpretation Comments UA Nitrite (test code Negative (01/24/14 12:40 = UA Nitrite) AM) [facility] AND [id number] 05:40:00 Test Item Value Reference Range Interpretation Comments UA Leuk Est (test Negative (01/24/14 12:40 code = UA Leuk Est) AM) [facility] AND [id number] 05:40:00 Test Item Value Reference Range Interpretation Comments UA Color (test code = Yellow *NA*(01/24/14 UA Color) 12:40 AM) [facility] AND [id number] 05:40:00 Test Item Value Reference Range Interpretation Comments UA Spec Grav (test code *NA*(01/24/14 12:40 AM) = UA Spec Grav) [facility] AND [id number] 05:40:00 Test Item Value Reference Range Interpretation Comments UA Turbidity (test code = Clear (01/24/14 12:40 UA Turbidity) AM) [facility] AND [id number] 05:40:00 Test Item Value Reference Range Interpretation Comments UA pH (test code = UA pH) 6.0 1 5.0-8.0 [facility] AND [id number] 05:40:00 Test Item Value Reference Range Interpretation Comments UA Glucose (test code = UA >=1000 mg/dL Glucose) [facility] AND [id number] 05:40:00 Test Item Value Reference Range Interpretation Comments UA Bili (test code = Negative *NA*(01/24/14 UA Bili) 12:40 AM) [facility] AND [id number] 05:40:00 Test Item Value Reference Range Interpretation Comments UA Protein (test code Negative (01/24/14 12:40 = UA Protein) AM) [facility] AND [id number] 05:40:00 Test Item Value Reference Range Interpretation Comments UA Ketones (test code Negative *NA*(01/24/14 = UA Ketones) 12:40 AM) [facility] AND [id number] 05:40:00 Test Item Value Reference Range Interpretation Comments UA Blood (test code = Negative (01/24/14 12:40 UA Blood) AM) [facility] AND [id number] 05:40:00 Test Item Value Reference Range Interpretation Comments UA Bacteria (test code = None Seen (01/24/14 UA Bacteria) 12:40 AM) [facility] AND [id number] 05:40:00 Test Item Value Reference Range Interpretation Comments UA RBC (test None Seen See_Comment [Automated mes james] code = UA RBC) (01/24/14 12:40 The system w hich AM) generated this result transmitted ref erence range: <=2. The reference range was not used to int erpret this result as normal/abnormal . [facility] AND [id number] 05:40:00 Test Item Value Reference Range Interpretation Comments UA WBC (test code = UA None Seen (01/24/14 12:40 WBC) AM) [facility] AND [id number] 05:40:00 Test Item Value Reference Range Interpretation Comments UA Sq Epi (test code = UA Sq Occasional /LPF Epi) [facility] [id number] 05:40:00 Test Item Value Reference Range Interpretation Comments U Preg (test code = U Negative (01/24/14 12:40 Preg) AM) [facility]
[2022-05-17 19:30] LABS: SARS-COV-2 RT PCR NEGATIVE (NEGATIVE)
--- NOTE | 2022-05-17 20:19 | EDPHYS ---
Physician Documentation [facility] Name: Mallory Gomez Age: 31 yrs Sex: Female : 1990 Arrival Date: 05/17/2022 Time: 18:19 Bed 14 Private MD: ED Physician Hector Jefferson HPI: 05/17 19:02 This 31 yrs old Female presents to ER via Ambulatory with complaints of Fever, Sore kb Throat, Congestion, Ear Pain. 19:01 Pt reports cough, congestion, sore throat, left ear pain and fever for 2 days. . kb 19:02 The patient or guardian reports cough, that is intermittent, described as mild, flu kb symptoms, low-grade fever, hoarse voice. Onset: The symptoms/episode began/occurred 2 day(s) ago. Severity of symptoms: At their worst the symptoms were moderate, in the emergency department the symptoms are unchanged. Modifying factors: The symptoms are alleviated by nothing, the symptoms are aggravated by nothing. Associated signs and symptoms: Pertinent positives: fever, rhinorrhea, sore throat. The patient has not experienced similar symptoms in the past. The patient has not recently seen a physician. 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 - Social history:: Smoking status: Patient denies any tobacco usage or history of. ROS: 19:01 Cardiovascular: Negative for chest pain, palpitations, and edema. kb 19:01 Constitutional: Positive for chills, fatigue, fever, malaise. 19:01 ENT: Positive for ear pain, rhinorrhea, sinus congestion, sore throat. 19:01 Respiratory: Positive for cough, Negative for dyspnea on exertion, hemoptysis, orthopnea, pleurisy, shortness of breath, sputum production, wheezing. 19:01 All other systems are negative. Exam: 19:01 Constitutional: This is a well developed, well nourished patient who is awake, alert, kb and in no acute distress. Head/Face: Normocephalic, atraumatic. ENT: Moist Mucous membranes Cardiovascular: Regular rate and rhythm with a normal S1 and S2. No gallops, murmurs, or rubs. No pulse deficits. Respiratory: Respirations even and unlabored. No increased work of breathing. Talking in full sentences Abdomen/GI: Soft, non-tender. No distention Skin: Warm, dry with normal turgor. Normal color. MS/ Extremity: Pulses equal, no cyanosis. Neurovascular intact. Full, normal range of motion. Neuro: Awake and alert, GCS 15, oriented to person, place, time, and situation. Moves all extremities. Normal gait. Psych: Awake, alert, with orientation to person, place and time. Behavior, mood, and affect are within normal limits. 19:03 ENT: External ear(s): are unremarkable, Ear canal(s): are normal, TM's: are normal, kb Nose: is normal, Posterior pharynx: is normal, Voice: is hoarse. Vital Signs: 18:23 BP 118 / 70; Pulse 85; Resp 20; Temp 97.9; Pulse Ox 99% ; Weight 67.59 kg; Height 5 ft. kb3 6 in. (167.64 cm); Pain 4/10; 18:23 Body Mass Index 24.05 (67.59 kg, 167.64 cm) kb3 MDM: 18:20 Patient medically screened. kb 18:57 Data reviewed: vital signs, nurses notes. Data interpreted: Pulse oximetry: on room air kb is 99 %. Interpretation: normal. 05/17 18:20 Order name: Strep; Complete Time: 20:10 kb 05/17 18:20 Order name: COVID-19/FLU A+B; Complete Time: 19:30 kb 05/17 20:11 Order name: Throat Culture EDMS Administered Medications: : Drug: Zithromax (azithromycin) 500 mg Route: PO; aa9 20:31 Drug: Pepcid (famotidine) 20 mg Route: PO; aa9 20:31 Drug: ZyrTEC - Cetirizine 10 mg Route: PO; aa9 20:31 Drug: predniSONE 40 mg Route: PO; aa9 Disposition: 05/18 07:03 Co-signature as Attending Physician, Hector Jefferson MD. rn Disposition Summary: 05/17/22 20:18 Discharge Ordered Location: Home snw Condition: Stable snw Diagnosis - Otitis media, unspecified, left ear snw - Acute laryngopharyngitis snw - Acute bronchitis, unspecified snw Followup: snw - With: Emergency Department - When: As needed - Reason: Worsening of condition Followup: snw - With: Private Physician - When: 2 - 3 days - Reason: Recheck today's complaints, Continuance of care, Re-evaluation by your physician Discharge Instructions: - Discharge Summary Sheet snw - Acute Bronchitis, Adult snw - Diabetes Mellitus and Sick Day Management snw - Otitis Media, Adult snw - Laryngitis snw Forms: - Medication Reconciliation Form snw - Thank You Letter snw - Antibiotic Education snw - Prescription Opioid Use snw Prescriptions: - Zyrtec 10 mg Oral Tablet - take 1 tablet by ORAL route once daily As needed; 20 tablet; Refills: 0, snw Product Selection Permitted - Prednisone 20 mg Oral Tablet - take 2 tablets by ORAL route once daily for 5 days; 10 tablet; Refills: 0, snw Product Selection Permitted - Pepcid 20 mg Oral Tablet - take 1 tablet by ORAL route once daily; 20 tablet; Refills: 0, Product snw Selection Permitted - Zithromax 500 mg Oral Tablet - take 1 tablet by ORAL route once daily for 5 days; 5 tablet; Refills: 0, snw Product Selection Permitted Signatures: Dispatcher [employer] EDTX Mary Vences, CARPET CLEANING TECHNICIAN-C CARPET CLEANING TECHNICIAN-Ckb Yazmin Albarado FNP-C CARPET CLEANING TECHNICIAN-CsnHector Vallejo MD MD rn Avalos, Aylin, RN RN aa9 Gladys Ellington RN RN kb3 Corrections: (The following items were deleted from the chart) 05/17 19:03 19:01 Constitutional: This is a well developed, well nourished patient who is awake, kb alert, and in no acute distress. Head/Face: Normocephalic, atraumatic. ENT: Moist Mucous membranes Cardiovascular: Regular rate and rhythm with a normal S1 and S2. No gallops, murmurs, or rubs. No pulse deficits. Respiratory: Respirations even and unlabored. No increased work of breathing. Talking in full sentences Abdomen/GI: Soft, non-tender. No distention Skin: Warm, dry with normal turgor. Normal color. MS/ Extremity: Pulses equal, no cyanosis. Neurovascular intact. Full, normal range of motion. Neuro: Awake and alert, GCS 15, oriented to person, place, time, and situation. Moves all extremities. Normal gait. Psych: Awake, alert, with orientation to person, place and time. Behavior, mood, and affect are within normal limits. kb
--- NOTE | 2022-05-17 20:19 | ER ---
Nurse's Notes [facility] Name: Mallory Gomez Age: 31 yrs Sex: Female : 1990 Arrival Date: 05/17/2022 Time: 18:19 Bed 14 Private MD: Diagnosis: Otitis media, unspecified, left ear;Acute laryngopharyngitis;Acute bronchitis, unspecified Presentation: 05/17 18:23 Chief complaint: Patient states: fever, sore throat, left ear pain, cough/congestion x2 kb3 days. Coronavirus screen: Vaccine status: Patient reports receiving the 1st dose of the Covid vaccine. Client denies travel out of the [place] in the last 14 days. Ebola Screen: Patient negative for fever greater than or equal to 101.5 degrees Fahrenheit, and additional compatible Ebola Virus Disease symptoms Patient denies exposure to infectious person. Patient denies travel to an Ebola-affected area in the 21 days before illness onset. Initial Sepsis Screen: Does the patient meet any 2 criteria? No. Patient's initial sepsis screen is negative. Does the patient have a suspected source of infection? No. Patient's initial sepsis screen is negative. Risk Assessment: Do you want to hurt yourself or someone else? Patient reports no desire to harm self or others. Onset of symptoms was May 16, 2022. 18:23 Method Of Arrival: Ambulatory kb3 18:23 Acuity: YESICA 4 kb3 Triage Assessment: 18:25 General: Appears ill, Behavior is calm, cooperative. Pain: Complains of pain in left kb3 ear Pain does not radiate. Pain currently is 8 out of 10 on a pain scale. EENT: Tympanic membrane clear on left ear and right ear Ear canal clear on left ear and right ear. 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 - Social history:: Smoking status: Patient denies any tobacco usage or history of. Screenin:30 [facility] ED Fall Risk Assessment (Adult) History of falling in the last 3 months, kb3 including since admission No falls in past 3 months (0 pts) Confusion or Disorientation No (0 pts) Intoxicated or Sedated No (0 pts) Impaired Gait No (0 pts) Mobility Assist Device Used No (0 pt) Altered Elimination No (0 pt) Score/Fall Risk Level 0 - 2 = Low Risk Oriented to surroundings, Maintained a safe environment, Educated pt \T\ family on fall prevention, incl call for assistance when getting out of bed, Assessed \T\ reinforced patient's understanding of fall precautions, Provided non-skid footwear, Hourly rounding (assess needs \T\ fall precautionary measures) done, Used ambulatory aids as needed (educated on \T\ assisted with), Used gait belt as appropriate. Abuse screen: Denies threats or abuse. Denies injuries from another. Nutritional screening: No deficits noted. Tuberculosis screening: No symptoms or risk factors identified. Assessment: 18:30 General: see triage note. Respiratory: Airway is patent Respiratory effort is even, kb3 unlabored, Breath sounds are clear bilaterally. 19:20 General: Appears in no apparent distress. comfortable, slender, Behavior is calm, aa9 cooperative, appropriate for age. Pain: Complains of pain in throat. Neuro: Level of Consciousness is awake, alert, obeys commands, Oriented to person, place, time, situation. Cardiovascular: Patient's skin is warm and dry. GI: No signs and/or symptoms were reported involving the gastrointestinal system. : No signs and/or symptoms were reported regarding the genitourinary system. Derm: No signs and/or symptoms reported regarding the dermatologic system. Vital Signs: 18:23 BP 118 / 70; Pulse 85; Resp 20; Temp 97.9; Pulse Ox 99% ; Weight 67.59 kg; Height 5 ft. kb3 6 in. (167.64 cm); Pain 4/10; 18:23 Body Mass Index 24.05 (67.59 kg, 167.64 cm) kb3 ED Course: 18:19 Patient arrived in ED. rg4 18:19 Mary Vences FNP-C is PHCP. kb 18:19 Hector Jefferson MD is Attending Physician. kb 18:23 Gladys Ellington, RN is Primary Nurse. kb3 18:25 Triage completed. kb3 18:25 Arm band placed on right wrist. kb3 18:30 Patient has correct armband on for positive identification. kb3 18:30 No provider procedures requiring assistance completed. Patient did not have IV access kb3 during this emergency room visit. 18:31 COVID-19/FLU A+B Sent. kb3 18:31 Strep Sent. kb3 18:34 Patient placed in an exam room, on a stretcher. ll1 19:12 PHCP role handed off by Mary Vences FNP-C snw 19:12 Yazmin Albarado FNP-C is PHCP. snw 19:21 Diet: Patient given ice chips. Tolerated well. aa9 Administered Medications: 20:31 Drug: Zithromax (azithromycin) 500 mg Route: PO; aa9 20:31 Drug: Pepcid (famotidine) 20 mg Route: PO; aa9 20:31 Drug: ZyrTEC - Cetirizine 10 mg Route: PO; aa9 20:31 Drug: predniSONE 40 mg Route: PO; aa9 Medication: 18:30 VIS not applicable for this client. kb3 Outcome: 20:18 Discharge ordered by . snw 20:31 Discharged to home ambulatory. aa9 20:31 Condition: stable 20:31 Discharge instructions given to patient, Instructed on discharge instructions, follow up and referral plans. medication usage, Demonstrated understanding of instructions, follow-up care, medications, Prescriptions given X 4. 20:31 Patient left the ED. aa9 Signatures: Mary Vences FNP-C FNP-Ckb Yazmin Albarado FNP-C FNP-CsnRita Perkins rg4 Shanta Gomez, YVETTE RN ll1 Mari Rodrigues RN RN aa9 Gladys Ellington, RN RN kb3
[2022-05-17] MEDS ORDERED: CETIRIZINE HCL 5 MG TABLET ONE (20:29)
[2022-05-17] MEDS ORDERED: FAMOTIDINE 20 MG TAB ONE (20:30)
[2022-05-17] MEDS ORDERED: predniSONE 20 MG TAB ONE (20:30)
[2022-05-17] MEDS ORDERED: AZITHROMYCIN 250 MG TAB ONE (20:30)
[2022-05-17 20:37] VITALS: BP 118/70; TEMP 97.9; O2SAT 99
== END 2022-05-17 20:31 | disposition home or self-care (01) ==
LOC: ER 18:16
DX: H66.92 Otitis media, unspecified, left ear (principal); J20.9 Acute bronchitis, unspecified; J06.0 Acute laryngopharyngitis; Z20.822 Contact with and (suspected) exposure to COVID-19; Z95.0 Presence of cardiac pacemaker; Z88.0 Allergy status to penicillin; Z88.5 Allergy status to narcotic agent; Z88.6 Allergy status to analgesic agent; Z88.8 Allergy status to other drugs, medicaments and biological substances
CPT/HCPCS: 87070; 87081; 0240U; 99283; J7512; Q0144

== ENCOUNTER 2023-01-10 16:00 | Emergency (ER) | payer OTHER ==
--- OUTSIDE RECORDS SUMMARY | 2023-01-10 16:03 | XMS REPORT | Clinical Summary ---
:1990 Author Organization [facility] MD Jeronimo [facility] Address [address] [place] [address] Care Team Providers Name Role Phone Unavailable [...] Not on file Results Not on fileafter 01/10/2022 Insurance Payer Benefit Plan / Subscriber ID Effective Phone Address T ype Group Dates [facility] [id number] [address] Medicaid HEALTHCARE MEDICAID [place], [place] COMM[employer] PLAN NON SSI [id number] 1979 [address] ([address]) [place] [id number] Mallory Gomez Personal/Family Self [birth year] [address] (Home) [place] [address]
[2023-01-10] MEDS ORDERED: NA CHLORIDE 0.9% 1,000 ML ONE (16:36)
[2023-01-10 16:46] LABS: Absolute Lymphocytes (CBC) 2.5 K/uL (0.7-4.9); Hematocrit 39.9 % (36.0-45.0); Lymphocytes % 27.6 % (15.3-44.8); MCV 98.1 fL (80-100); MPV 8.4 fL (7.6-11.3); Platelets 298 thou/uL (152-406); RBC Red Blood Cell Count 4.07 M/uL (3.86-4.86)
[2023-01-10 16:53] LABS: Specific Gravity 1.022 (1.005-1.030); Urine Bilirubin NEGATIVE (Negative); Urine Blood Negative (Negative); Urine Clarity Clear (Clear); Urine Color Light-Yellow (Yellow); Urine Glucose NEGATIVE (Negative); Urine Protein NEGATIVE (Negative); Urine Urobilinogen Normal (Normal); Urine pH 7.5 (5.0-7.0)
--- OUTSIDE RECORDS SUMMARY | 2023-01-10 17:04 | XMS REPORT | Continuity of Care Document ---
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 Infusion 2023-0 Yes [id number] Use as Uni vers Set for 05-30 directed ity of Insulin 00:00: [place] Pump 00 Medical (MEDTRONIC Branch EXT INFUSION SET 23") ISet Blood-Gluco 202-0 Yes [id number] Use as Univers se -13 directed ity of Transmitter 00:00: [place] (DEXCOM G6 00 Medical TRANSMITTER Branch ) [facility] Infusion 202-0 Yes [id number] Use as Uni vers Set for 13 directed ity of Insulin 00:00: [place] Pump 00 Medical (MEDTRONIC Branch EXT INFUSION SET 23") ISet Blood-Gluco 2023-0 Yes [id number] Use as Univers se -13 directed ity of Transmitter 00:00: [place] (DEXCOM G6 00 Medical TRANSMITTER Branch ) [facility] Infusion 2022-0 Yes [id number] Use as Uni vers Set for 05-30 directed ity of Insulin 00:00: [place] Pump 00 Medical (MEDTRONIC Branch EXT INFUSION SET 23") ISet Blood-Gluco 2022-0 Yes [id number] Use as Univers se 05-30 directed ity of Transmitter 00:00: [place] (DEXCOM G6 00 Medical TRANSMITTER Branch ) [facility] Infusion 0 Yes [id number] Use as Uni vers Set for 05-30 directed ity of Insulin 00:00: [place] Pump 00 Medical (MEDTRONIC Branch EXT INFUSION SET 23") ISet Blood-Gluco 0 Yes [id number] Use as Univers se 05-30 directed ity of Transmitter 00:00: [place] (DEXCOM G6 00 Medical TRANSMITTER Branch ) [facility] Infusion 0 Yes [id number] Use as Uni vers Set for 05-30 directed ity of Insulin 00:00: [place] Pump 00 Medical (MEDTRONIC Branch EXT INFUSION SET 23") ISet Blood-Gluco 0 2022- No [id number] Use as Univers se Sensor 05-30 directed ity o f (DEXCOM G6 00:00: 00:00 [place] SENSOR) 00 :00 Medical [facility] Branch glucagon 2022- No [id number] 1{each} inject 1 Univers (GVOKE 05-30 Each under ity of HYPOPEN 00:00: 00:00 the skin [place] 2-PACK) 0.5 00 :00 as needed Med ical mg/0.1 mL for Other Branc h AtIn (hypoglyce magalys). Blood-Gluco 2022- No [id number] Use as Univers se Sensor 05-30 directed ity o f (DEXCOM G6 00:00: 00:00 [place] SENSOR) 00 :00 Medical [facility] Branch glucagon 0 2022- No [id number] 1{each} inject 1 Univers (GVOKE 05-30 Each under ity of HYPOPEN 00:00: 00:00 the skin [facility] 2-PACK) 0.5 00 :00 as needed Med ical mg/0.1 mL for Other Branc h AtIn (hypoglyce magalys). insulin 0 3- No [id number] USE WITH U nivers aspart 05-30 04-10 INSULIN ity of RAPID 00:00: 00:00 PUMP. MAX [place] (NOVOLOG 00 :00 DAILY DOSE Medic al U-100 OF 80 Branch INSULIN UNITS ASPART) 100 unit/mL injection insulin 2021-05 Yes [id number] USE WITH Un [place] aspart 2-27 INSULIN ity of RAPID 00:00: PUMP. MAX [place] (NOVOLOG 00 DAILY DOSE Medic al U-100 OF 80 Branch INSULIN UNITS ASPART) 100 unit/mL injection insulin 2021-05 Yes [id number] USE WITH Un [place] aspart 2-27 INSULIN ity of RAPID 00:00: PUMP. MAX [place] (NOVOLOG 00 DAILY DOSE Medic al U-100 OF 80 Branch INSULIN UNITS ASPART) 100 unit/mL injection insulin 2021-05 Yes [id number] USE WITH Un [place] aspart 2-27 INSULIN ity of RAPID 00:00: PUMP. MAX [place] (NOVOLOG 00 DAILY DOSE Medic al U-100 OF 80 Branch INSULIN UNITS ASPART) 100 unit/mL injection insulin 2021-05 Yes [id number] USE WITH Un [place] aspart 2-27 INSULIN ity of RAPID 00:00: PUMP. MAX [place] (NOVOLOG 00 DAILY DOSE Medic al U-100 OF 80 Branch INSULIN UNITS ASPART) 100 unit/mL injection insulin 2021-05- No [id number] USE WITH U nivers aspart 2-27 01-13 INSULIN ity of RAPID 00:00: 00:00 PUMP. MAX [place] (NOVOLOG 00 :00 DAILY DOSE Medic al U-100 OF 80 Branch INSULIN UNITS ASPART) 100 unit/mL injection insulin 2021-05- No [id number] USE WITH U nivers aspart 2-27 01-13 INSULIN ity of RAPID 00:00: 00:00 PUMP. MAX [place] (NOVOLOG 00 :00 DAILY DOSE Medic al U-100 OF 80 Branch INSULIN UNITS ASPART) 100 unit/mL injection blood sugar 0 Yes [id number] USE TO Univers diagnostic 6-07 CHECK ity of (CONTOUR 00:00: BLOOD [place] NEXT TEST 00 SUGAR 4 Medical STRIPS) TIMES A Branch strip DAY . Dx E10.9 blood sugar 0 Yes [id number] USE TO Univers diagnostic 6-07 CHECK ity of (CONTOUR 00:00: BLOOD [place] NEXT TEST 00 SUGAR 4 Medical STRIPS) TIMES A Branch strip DAY . Dx E10.9 blood sugar 0 Yes [id number] USE TO Univers diagnostic 6-07 CHECK ity of (CONTOUR 00:00: BLOOD [place] NEXT TEST 00 SUGAR 4 Medical STRIPS) TIMES A Branch strip DAY . Dx E10.9 blood sugar 2021-0 Yes [id number] USE TO Univers diagnostic 6-07 CHECK ity of (CONTOUR 00:00: BLOOD [place] NEXT TEST 00 SUGAR 4 Medical STRIPS) TIMES A Branch strip DAY . Dx E10.9 blood sugar 2021-0 Yes [id number] USE TO Univers diagnostic 6-07 CHECK ity of (CONTOUR 00:00: BLOOD [place] NEXT TEST 00 SUGAR 4 Medical STRIPS) TIMES A Branch strip DAY . Dx E10.9 blood sugar 2021-0 Yes [id number] USE TO Univers diagnostic 6-07 CHECK ity of (CONTOUR 00:00: BLOOD [place] NEXT TEST 00 SUGAR 4 Medical STRIPS) TIMES A Branch strip DAY . Dx E10.9 blood sugar 2021-0 Yes [id number] USE TO Univers diagnostic 6-07 CHECK ity of (CONTOUR 00:00: BLOOD [place] NEXT TEST 00 SUGAR 4 Medical STRIPS) TIMES A Branch strip DAY . Dx E10.9 blood sugar 2021-0 Yes [id number] USE TO Univers diagnostic 607 CHECK ity of (CONTOUR 00:00: BLOOD [place] NEXT TEST 00 SUGAR 4 Medical STRIPS) TIMES A Branch strip DAY . Dx E10.9 blood sugar 2021-0 Yes [id number] USE TO Univers diagnostic 6-07 CHECK ity of (CONTOUR 00:00: BLOOD [place] NEXT TEST 00 SUGAR 4 Medical STRIPS) TIMES A Branch strip DAY . Dx E10.9 blood sugar 2021-0 Yes [id number] USE TO Univers diagnostic 6-07 CHECK ity of (CONTOUR 00:00: BLOOD [place] NEXT TEST 00 SUGAR 4 Medical STRIPS) TIMES A Branch strip DAY . Dx E10.9 blood sugar 2021-0 Yes [id number] USE TO Univers diagnostic 607 CHECK ity of (CONTOUR 00:00: BLOOD [place] NEXT TEST 00 SUGAR 4 Medical STRIPS) TIMES A Branch strip DAY . Dx E10.9 blood sugar 2021-0 Yes [id number] USE TO Univers diagnostic 6-07 CHECK ity of (CONTOUR 00:00: BLOOD [place] NEXT TEST 00 SUGAR 4 Medical STRIPS) TIMES A Branch strip DAY . Dx E10.9 blood sugar 2021-0 Yes [id number] USE TO Univers diagnostic 6-07 CHECK ity of (CONTOUR 00:00: BLOOD [place] NEXT TEST 00 SUGAR 4 Medical STRIPS) TIMES A Branch strip DAY . Dx E10.9 blood sugar 2021-0 Yes [id number] USE TO Univers diagnostic 6-07 CHECK ity of (CONTOUR 00:00: BLOOD [place] NEXT TEST 00 SUGAR 4 Medical STRIPS) TIMES A Branch strip DAY . Dx E10.9 blood sugar 0 Yes [id number] USE TO [facility] diagnostic 10-22 CHECK ity of (CONTOUR 00:00: BLOOD [place] NEXT TEST 00 SUGAR 4 Medical STRIPS) TIMES A Branch strip DAY . Dx E10.9 blood sugar 2021-0 Yes [id number] USE TO [facility] diagnostic 10-22 CHECK ity of (CONTOUR 00:00: BLOOD [place] NEXT TEST 00 SUGAR 4 Medical STRIPS) TIMES A Branch strip DAY . Dx E10.9 blood sugar 0 Yes [id number] USE TO [facility] diagnostic 10-22 CHECK ity of (CONTOUR 00:00: BLOOD [place] NEXT TEST 00 SUGAR 4 Medical STRIPS) TIMES A Branch strip DAY . Dx E10.9 blood sugar 0 2022- No [id number] USE TO [facility] diagnostic 6-09 CHECK ity of (CONTOUR 00:00: 00:00 BLOOD [place] NEXT TEST 00 :00 SUGAR 4 Medical STRIPS) TIMES A Branch strip DAY . Dx E10.9 insulin 0 Yes [id number] USE WITH Un [place] aspart 2-06 INSULIN ity of RAPID 00:00: PUMP. MAX [place] (NOVOLOG 00 DAILY DOSE Medic al U-100 OF 80 Branch INSULIN UNITS ASPART) 100 unit/mL injection insulin 0 Yes [id number] USE WITH Un [place] aspart 2-06 INSULIN ity of RAPID 00:00: PUMP. MAX [place] (NOVOLOG 00 DAILY DOSE Medic al U-100 OF 80 Branch INSULIN UNITS ASPART) 100 unit/mL injection insulin 0 Yes [id number] USE WITH Un [place] aspart 2-06 INSULIN ity of RAPID 00:00: PUMP. MAX [place] (NOVOLOG 00 DAILY DOSE Medic al U-100 OF 80 Branch INSULIN UNITS ASPART) 100 unit/mL injection insulin 0 2022- No [id number] USE WITH U nivers aspart 2-06 12-27 INSULIN ity of RAPID 00:00: 00:00 PUMP. MAX [place] (NOVOLOG 00 :00 DAILY DOSE Medic al U-100 OF 80 Branch INSULIN UNITS ASPART) 100 unit/mL injection insulin Yes Inject [facility] pump 1-22 sub[facility]o [facility] cartridge 01:27: [facility] Crt 15 [facility] with basal 1.35 . insulin Yes Inject [facility] pump 1-22 subcutaneo [facility] cartridge 01:27: [facility] Crtg 15 [facility] with basal 1.35 . insulin 2021-[address] [facility] pump 1-22 subcutaneo [facility] cartridge 01:27: [facility] Medical Crtg 15 Novolog Center with basal 1.35 . lamoTRIgine 2021-0 2022- No 100mg QD Take [address] [facility] (LaMICtal) 1-13 01-13 mg by [facility] 100 MG 14:01: 00:00 mouth Medical tablet 36 :00 daily DOSE Center not known . pantoprazol 2021-0 Yes 40mg Q.5D Take [address] [facility] e 1-13 tablet (40 [facility] (PROTONIX) 00:00: mg total) Me dical 40 MG 00 by mouth 2 Center tablet (two) times daily. lidocaine-m 2021-0 Yes 1{appli QD Apply [address] [facility] enthol 4-4 1-13 cation} applicatio [facility] % PtMd 00:00: n Medical 00 topically Center daily Apply to area of abdominal pain. lamoTRIgine 2-0 Yes 100mg QD Take [address] [facility] (LaMICtal) 1-13 tablet [facility] 100 MG 00:00: (100 mg Medical tablet 00 total) by Center mouth daily CONTINUE HOME DOSE. pantoprazol 2-0 Yes 40mg Q.5D Take [address] [facility] e 1-13 tablet (40 [facility] (PROTONIX) 00:00: mg total) Me dical 40 MG 00 by mouth 2 Center tablet (two) times daily. lidocaine-m 2021-0 Yes 1{appli QD Apply [address] [facility] enthol 4-4 1-13 cation} applicatio [facility] % PtMd 00:00: n Medical 00 topically Center daily Apply to area of abdominal pain. lamoTRIgine 2-0 Yes 100mg QD Take [address] [facility] (LaMICtal) 1-13 tablet [facility] 100 MG 00:00: (100 mg Medical tablet 00 total) by Center mouth daily CONTINUE HOME DOSE. pantoprazol 2-0 Yes 40mg Q.5D Take [address] [facility] e 1-13 tablet (40 [facility] (PROTONIX) 00:00: mg total) Me dical 40 MG 00 by mouth 2 Center tablet (two) times daily. lidocaine-m 2021-0 Yes 1{appli QD Apply [address] [facility] enthol 4-4 - cation} applicatio [facility] % PtMd 00:00: n Medical 00 topically Center daily Apply to area of abdominal pain. lamoTRIgine Yes 100mg QD Take [address] [facility] (LaMICtal) - tablet [facility] 100 MG 00:00: (100 mg Medical tablet 00 total) by Center mouth daily CONTINUE HOME DOSE. HYDROcodone 2021- No 1{tbl} Take [address] -acetaminop 05-30 tablet by joseph sheffield (NORCO 00:00: 23:59 mouth Medic al 7.5-325) 00 :00 every 6 Center 7.5-325 mg (six) per tablet hours as needed for up to 10 days. Max Daily Amount: 4 tablets polyethylen 2021- No 17g Take [address] [facility] e glycol 05-3016 by mouth [facility] (GLYCOLAX) 00:00: 23:59 daily as Me dical 17 gram 00 :00 needed Center packet (Constipat ion) for up to 3 days. Insulin 2020-05 Yes inject Univers Pump 2-29 under the ity of Cartridge 13:09: skin. [address] Insulin 2020-05 Yes inject Univers Pump 2-29 under the ity of Cartridge 13:09: skin. [address] Insulin 2020-05 Yes inject Univers Pump 2-29 under the ity of Cartridge 13:09: skin. [address] Insulin 2020-05 Yes inject Univers Pump 2-29 under the ity of Cartridge 13:09: skin. [address] Insulin 2020-05 Yes inject Univers Pump 2-29 under the ity of Cartridge 13:09: skin. [address] Insulin 2020-05 Yes inject Univers Pump 2-29 under the ity of Cartridge 13:09: skin. [address] Insulin 2020-05 Yes inject Univers Pump 2-29 under the ity of Cartridge 13:09: skin. [address] Insulin 2020-05 Yes inject Univers Pump 2-29 under the ity of Cartridge 13:09: skin. [address] Insulin 2020-05 Yes inject Univers Pump 2-29 under the ity of Cartridge 13:09: skin. [address] Insulin 2020-05 Yes inject Univers Pump 2-29 under the ity of Cartridge 13:09: skin. [address] Insulin 2020-05 Yes inject Univers Pump 2-29 under the ity of Cartridge 13:09: skin. [address] Insulin 2020-05 Yes inject Univers Pump 2-29 under the ity of Cartridge 13:09: skin. [address] Insulin 2020-05 Yes inject Univers Pump 2-29 under the ity of Cartridge 13:09: skin. [address] Insulin 2020-05 Yes inject Univers Pump 2-29 under the ity of Cartridge 13:09: skin. [address] Insulin 2020-05 Yes inject Univers Pump 2-29 under the ity of Cartridge 13:09: skin. [address] Insulin 2020-05 Yes inject Univers Pump 2-29 under the ity of Cartridge 13:09: skin. [address] Insulin 2020-05 Yes inject Univers Pump 2-29 under the ity of Cartridge 13:09: skin. [address] Insulin 2020-05 Yes inject Univers Pump 2-29 under the ity of Cartridge 13:09: skin. [address] Insulin 2020-05 Yes inject Univers Pump 2-29 under the ity of Cartridge 13:09: skin. [address] Insulin 2020-05 Yes inject Univers Pump 2-29 under the ity of Cartridge 13:09: skin. [address] Insulin 2020-05 Yes inject Univers Pump 2-29 under the ity of Cartridge 13:09: skin. [address] Insulin 2020-05 Yes inject Univers Pump 2-29 under the ity of Cartridge 13:09: skin. [address] Insulin 2020-05 Yes inject Univers Pump 2-29 under the ity of Cartridge 13:09: skin. [address] Insulin 2020-05 Yes inject Univers Pump 2-29 under the ity of Cartridge 13:09: skin. [address] Insulin 2020-05 Yes inject Univers Pump 2-29 under the ity of Cartridge 13:09: skin. [address] albuterol 2020-05 Yes [id number] 2{puff} Inhale 2 Univers 90 1-08 Puffs ity of mcg/actuati 00:00: every 4 [place] as on inhaler 00 (four) Medical hours as Branch needed for Wheezing or Shortness of Breath. albuterol 2020-05 Yes [id number] 2{puff} Inhale 2 Univers 90 1-08 Puffs ity of mcg/actuati 00:00: every 4 [place] as on inhaler 00 (four) Medical hours as Branch needed for Wheezing or Shortness of Breath. albuterol 2020-05 Yes [id number] 2{puff} Inhale 2 Univers 90 1-08 Puffs ity of mcg/actuati 00:00: every 4 [place] as on inhaler 00 (four) Medical hours as Branch needed for Wheezing or Shortness of Breath. albuterol 2020-05 Yes [id number] 2{puff} Inhale 2 Univers 90 1-08 Puffs ity of mcg/actuati 00:00: every 4 [place] as on inhaler 00 (four) Medical hours as Branch needed for Wheezing or Shortness of Breath. albuterol 2020-05 Yes [id number] 2{puff} Inhale 2 Univers 90 1-08 Puffs ity of mcg/actuati 00:00: every 4 [place] as on inhaler 00 (four) Medical hours as Branch needed for Wheezing or Shortness of Breath. albuterol 2020-05 Yes [id number] 2{puff} Inhale 2 Univers 90 1-08 Puffs ity of mcg/actuati 00:00: every 4 [place] as on inhaler 00 (four) Medical hours as Branch needed for Wheezing or Shortness of Breath. albuterol 2020-05 Yes [id number] 2{puff} Inhale 2 Univers 90 1-08 Puffs ity of mcg/actuati 00:00: every 4 [place] as on inhaler 00 (four) Medical hours as Branch needed for Wheezing or Shortness of Breath. albuterol 2020-05 Yes [id number] 2{puff} Inhale 2 Univers 90 1-08 Puffs ity of mcg/actuati 00:00: every 4 [place] as on inhaler 00 (four) Medical hours as Branch needed for Wheezing or Shortness of Breath. albuterol 2020-05 Yes [id number] 2{puff} Inhale 2 Univers 90 1-08 Puffs ity of mcg/actuati 00:00: every 4 [place] as on inhaler 00 (four) Medical hours as Branch needed for Wheezing or Shortness of Breath. albuterol 2020-05 Yes [id number] 2{puff} Inhale 2 Univers 90 1-08 Puffs ity of mcg/actuati 00:00: every 4 [place] as on inhaler 00 (four) Medical hours as Branch needed for Wheezing or Shortness of Breath. albuterol 2020-05 Yes [id number] 2{puff} Inhale 2 Univers 90 1-08 Puffs ity of mcg/actuati 00:00: every 4 [place] as on inhaler 00 (four) Medical hours as Branch needed for Wheezing or Shortness of Breath. albuterol 2020-05 Yes [id number] 2{puff} Inhale 2 Univers 90 1-08 Puffs ity of mcg/actuati 00:00: every 4 [place] as on inhaler 00 (four) Medical hours as Branch needed for Wheezing or Shortness of Breath. albuterol 2020-05 Yes [id number] 2{puff} Inhale 2 Univers 90 1-08 Puffs ity of mcg/actuati 00:00: every 4 [place] as on inhaler 00 (four) Medical hours as Branch needed for Wheezing or Shortness of Breath. albuterol 2020-05 Yes [id number] 2{puff} Inhale 2 Univers 90 1-08 Puffs ity of mcg/actuati 00:00: every 4 [place] as on inhaler 00 (four) Medical hours as Branch needed for Wheezing or Shortness of Breath. albuterol 2020-05 Yes [id number] 2{puff} Inhale 2 Univers 90 1-08 Puffs ity of mcg/actuati 00:00: every 4 [place] as on inhaler 00 (four) Medical hours as Branch needed for Wheezing or Shortness of Breath. albuterol 2020-05 Yes [id number] 2{puff} Inhale 2 Univers 90 1-08 Puffs ity of mcg/actuati 00:00: every 4 [place] as on inhaler 00 (four) Medical hours as Branch needed for Wheezing or Shortness of Breath. albuterol 2020-05 Yes [id number] 2{puff} Inhale 2 Univers 90 1-08 Puffs ity of mcg/actuati 00:00: every 4 [place] as on inhaler 00 (four) Medical hours as Branch needed for Wheezing or Shortness of Breath. albuterol 2020-05 Yes [id number] 2{puff} Inhale 2 Univers 90 1-08 Puffs ity of mcg/actuati 00:00: every 4 [place] as on inhaler 00 (four) Medical hours as Branch needed for Wheezing or Shortness of Breath. albuterol 2020-05 Yes [id number] 2{puff} Inhale 2 Univers 90 1-08 Puffs ity of mcg/actuati 00:00: every 4 [place] as on inhaler 00 (four) Medical hours as Branch needed for Wheezing or Shortness of Breath. albuterol 2020-05 Yes [id number] 2{puff} Inhale 2 Univers 90 1-08 Puffs ity of mcg/actuati 00:00: every 4 [place] as on inhaler 00 (four) Medical hours as Branch needed for Wheezing or Shortness of Breath. albuterol 2020-05 Yes [id number] 2{puff} Inhale 2 Univers 90 1-08 Puffs ity of mcg/actuati 00:00: every 4 [place] as on inhaler 00 (four) Medical hours as Branch needed for Wheezing or Shortness of Breath. albuterol 2020-05 Yes [id number] 2{puff} Inhale 2 Univers 90 1-08 Puffs ity of mcg/actuati 00:00: every 4 [place] as on inhaler 00 (four) Medical hours as Branch needed for Wheezing or Shortness of Breath. albuterol 2020-05 Yes [id number] 2{puff} Inhale 2 Univers 90 1-08 Puffs ity of mcg/actuati 00:00: every 4 [place] as on inhaler 00 (four) Medical hours as Branch needed for Wheezing or Shortness of Breath. albuterol 2020-05 Yes [id number] 2{puff} Inhale 2 Univers 90 1-08 Puffs ity of mcg/actuati 00:00: every 4 [place] as on inhaler 00 (four) Medical hours as Branch needed for Wheezing or Shortness of Breath. albuterol 2020-05 Yes [id number] 2{puff} Inhale 2 Univers 90 1-08 Puffs ity of mcg/actuati 00:00: every 4 [place] as on inhaler 00 (four) Medical hours as Branch needed for Wheezing or Shortness of Breath. albuterol 2020-05 Yes 3mL 3 mL. Univers 0.63 mg/3 1-02 ity of mL 11:06: [place] nebulizer Medical solution Branch albuterol 2020-05 Yes 3mL 3 mL. Univers 0.63 mg/3 1-02 ity of mL 11:06: [place] nebulizer Medical solution Branch albuterol 2020-05 Yes 3mL 3 mL. Univers 0.63 mg/3 1-02 ity of mL 11:06: [place] nebulizer Medical solution Branch albuterol 2020-05 Yes 3mL 3 mL. Univers 0.63 mg/3 1-02 ity of mL 11:06: [place] nebulizer Medical solution Branch albuterol 2020-05 Yes [...] 0.63 mg/3 1-02 ity of mL 11:06: [place] nebulizer Medical solution [place] albuterol 2020-05 Yes 3mL 3 mL. Univers 0.63 mg/3 1-02 ity of mL 11:06: [place] nebulizer Medical solution [place] albuterol 2020-05 Yes 3mL 3 mL. Univers 0.63 mg/3 1-02 ity of mL 11:06: [place] nebulizer Medical solution [place] albuterol 2020-05 Yes 3mL 3 mL. Univers 0.63 mg/3 1-02 ity of mL 11:06: [place] nebulizer Medical solution [place] albuterol 2020-05 Yes 3mL 3 mL. Univers 0.63 mg/3 1-02 ity of mL 11:06: [place] nebulizer Medical solution [place] albuterol 2020-05 Yes 3mL 3 mL. Univers 0.63 mg/3 1-02 ity of mL 11:06: [place] nebulizer Medical solution [place] albuterol 2020-05 Yes 3mL 3 mL. Univers 0.63 mg/3 1-02 ity of mL 11:06: [place] nebulizer Medical solution [place] albuterol 2020-05 Yes 3mL 3 mL. Univers 0.63 mg/3 1-02 ity of mL 11:06: [place] nebulizer Medical solution [place] albuterol 2020-05 Yes 3mL 3 mL. Univers 0.63 mg/3 1-02 ity of mL 11:06: [place] nebulizer Medical solution [place] albuterol 2020-05 Yes 3mL 3 mL. Univers 0.63 mg/3 1-02 ity of mL 11:06: [place] nebulizer Medical solution [place] albuterol 2020-05 Yes 3mL 3 mL. Univers 0.63 mg/3 1-02 ity of mL 11:06: [place] nebulizer Medical solution [place] albuterol 2020-05 Yes 3mL 3 mL. Univers 0.63 mg/3 1-02 ity of mL 11:06: [place] nebulizer Medical solution [place] albuterol 2020-05 Yes 3mL 3 mL. Univers 0.63 mg/3 1-02 ity of mL 11:06: [place] nebulizer Medical solution [place] nicotine 2020-05 Yes [id number] 2mg Apply 1 [facility] [place] polacrilex 1-02 Each as ity of 2 mg gum 00:00: directed [place] 00 every 2 Medical (two) Branch hours as needed (smoking urge). LOESTRIN FE 2020-05 Yes [id number] 1{tbl} Take 1 Univers 1 mg-20 mcg 1-02 tablet by ity of (21)/75 mg 00:00: mouth [place] (7) tablet 00 daily. Medical Branch nicotine 2020-05 Yes [id number] 2mg Apply 1 [facility] [place] polacrilex 1-02 Each as ity of 2 mg gum 00:00: directed [place] 00 every 2 Medical (two) Branch hours as needed (smoking urge). LOESTRIN FE 2020-05 Yes [id number] 1{tbl} Take 1 Univers 1 mg-20 mcg 1-02 tablet by ity of (21)/75 mg 00:00: mouth [place] (7) tablet 00 daily. Medical Branch nicotine 2020-05 Yes [id number] 2mg Apply 1 [facility] [place] polacrilex 1-02 Each as ity of 2 mg gum 00:00: directed [place] 00 every 2 Medical (two) Branch hours as needed (smoking urge). LOESTRIN FE 2020-05 Yes [id number] 1{tbl} Take 1 Univers 1 mg-20 mcg 1-02 tablet by ity of (21)/75 mg 00:00: mouth [place] (7) tablet 00 daily. Medical Branch nicotine 2020-05 Yes [id number] 2mg Apply 1 [facility] [place] polacrilex 1-02 Each as ity of 2 mg gum 00:00: directed [place] 00 every 2 Medical (two) Branch hours as needed (smoking urge). LOESTRIN FE 2020-05 Yes [id number] 1{tbl} Take 1 Univers 1 mg-20 mcg 1-02 tablet by ity of (21)/75 mg 00:00: mouth [place] (7) tablet 00 daily. Medical Branch nicotine 2020-05 Yes [id number] 2mg Apply 1 [facility] [place] polacrilex 1-02 Each as ity of 2 mg gum 00:00: directed [place] 00 every 2 Medical (two) Branch hours as needed (smoking urge). LOESTRIN FE 2020-05 Yes [id number] 1{tbl} Take 1 Univers 1 mg-20 mcg 1-02 tablet by ity of (21)/75 mg 00:00: mouth [place] (7) tablet 00 daily. Medical Branch nicotine 2020-05 Yes [id number] 2mg Apply 1 [facility] [place] polacrilex 1-02 Each as ity of 2 mg gum 00:00: directed [place] 00 every 2 Medical (two) Branch hours as needed (smoking urge). LOESTRIN FE 2020-05 Yes [id number] 1{tbl} Take 1 [facility] 1 mg-20 mcg 1-02 tablet by ity of (21)/75 mg 00:00: mouth [place] (7) tablet 00 daily. Medical Branch nicotine 2020-05 Yes [id number] 2mg Apply 1 [place] polacrilex 1-02 Each as ity of 2 mg gum 00:00: directed [place] 00 every 2 Medical (two) Branch hours as needed (smoking urge). LOESTRIN FE 2020-05 Yes [id number] 1{tbl} Take 1 [facility] 1 mg-20 mcg 1-02 tablet by ity of (21)/75 mg 00:00: mouth [place] (7) tablet 00 daily. Medical Branch nicotine 2020-05 Yes [id number] 2mg Apply 1 [place] polacrilex 1-02 Each as ity of 2 mg gum 00:00: directed [place] 00 every 2 Medical (two) Branch hours as needed (smoking urge). LOESTRIN FE 2020-05 Yes [id number] 1{tbl} Take 1 [facility] 1 mg-20 mcg 1-02 tablet by ity of (21)/75 mg 00:00: mouth [place] (7) tablet 00 daily. Medical Branch nicotine 2020-05 Yes [id number] 2mg Apply 1 [place] polacrilex 1-02 Each as ity of 2 mg gum 00:00: directed [place] 00 every 2 Medical (two) Branch hours as needed (smoking urge). LOESTRIN FE 2020-05 Yes [id number] 1{tbl} Take 1 [facility] 1 mg-20 mcg 1-02 tablet by ity of (21)/75 mg 00:00: mouth [place] (7) tablet 00 daily. Medical Branch nicotine 2020-05 Yes [id number] 2mg Apply 1 [place] polacrilex 1-02 Each as ity of 2 mg gum 00:00: directed [place] 00 every 2 Medical (two) Branch hours as needed (smoking urge). LOESTRIN FE 2020-05 Yes [id number] 1{tbl} Take 1 [facility] 1 mg-20 mcg 1-02 tablet by ity of (21)/75 mg 00:00: mouth [place] (7) tablet 00 daily. Medical Branch nicotine 2020-05 Yes [id number] 2mg Apply 1 [place] polacrilex 1-02 Each as ity of 2 mg gum 00:00: directed [place] 00 every 2 Medical (two) Branch hours as needed (smoking urge). LOESTRIN FE 2020-05 Yes [id number] 1{tbl} Take 1 [facility] 1 mg-20 mcg 1-02 tablet by ity of (21)/75 mg 00:00: mouth [place] (7) tablet 00 daily. Medical Branch nicotine 2020-05 Yes [id number] 2mg Apply 1 [place] polacrilex 1-02 Each as ity of 2 mg gum 00:00: directed [place] 00 every 2 Medical (two) Branch hours as needed (smoking urge). LOESTRIN FE 2020-05 Yes [id number] 1{tbl} Take 1 [facility] 1 mg-20 mcg 1-02 tablet by ity of (21)/75 mg 00:00: mouth [place] (7) tablet 00 daily. Medical Branch nicotine 2020-05 Yes [id number] 2mg Apply 1 [place] polacrilex 1-02 Each as ity of 2 mg gum 00:00: directed [place] 00 every 2 Medical (two) Branch hours as needed (smoking urge). LOESTRIN FE 2020-05 Yes [id number] 1{tbl} Take 1 [facility] 1 mg-20 mcg 1-02 tablet by ity of (21)/75 mg 00:00: mouth [place] (7) tablet 00 daily. Medical Branch nicotine 2020-05 Yes [id number] 2mg Apply 1 [place] polacrilex 1-02 Each as ity of 2 mg gum 00:00: directed [place] 00 every 2 Medical (two) Branch hours as needed (smoking urge). LOESTRIN FE 2020-05 Yes [id number] 1{tbl} Take 1 [facility] 1 mg-20 mcg 1-02 tablet by ity of (21)/75 mg 00:00: mouth [place] (7) tablet 00 daily. Medical Branch nicotine 2020-05 Yes [id number] 2mg Apply 1 [place] polacrilex 1-02 Each as ity of 2 mg gum 00:00: directed [place] 00 every 2 Medical (two) Branch hours as needed (smoking urge). LOESTRIN FE 2020-05 Yes [id number] 1{tbl} Take 1 [facility] 1 mg-20 mcg 1-02 tablet by ity of (21)/75 mg 00:00: mouth [place] (7) tablet 00 daily. Medical Branch nicotine 2020-05 Yes [id number] 2mg Apply 1 [place] polacrilex 1-02 Each as ity of 2 mg gum 00:00: directed [place] 00 every 2 Medical (two) Branch hours as needed (smoking urge). LOESTRIN FE 2020-05 Yes [id number] 1{tbl} Take 1 [facility] 1 mg-20 mcg 1-02 tablet by ity of (21)/75 mg 00:00: mouth [place] (7) tablet 00 daily. Medical Branch nicotine 2020-05 Yes [id number] 2mg Apply 1 [place] polacrilex 1-02 Each as ity of 2 mg gum 00:00: directed [place] 00 every 2 Medical (two) Branch hours as needed (smoking urge). LOESTRIN FE 2020-05 Yes [id number] 1{tbl} Take 1 [facility] 1 mg-20 mcg 1-02 tablet by ity of (21)/75 mg 00:00: mouth [place] (7) tablet 00 daily. Medical Branch nicotine 2020-05 Yes [id number] 2mg Apply 1 [place] polacrilex 1-02 Each as ity of 2 mg gum 00:00: directed [place] 00 every 2 Medical (two) Branch hours as needed (smoking urge). LOESTRIN FE 2020-05 Yes [id number] 1{tbl} Take 1 [facility] 1 mg-20 mcg 1-02 tablet by ity of (21)/75 mg 00:00: mouth [place] (7) tablet 00 daily. Medical Branch nicotine 2020-05 Yes [id number] 2mg Apply 1 [place] polacrilex 1-02 Each as ity of 2 mg gum 00:00: directed [place] 00 every 2 Medical (two) Branch hours as needed (smoking urge). LOESTRIN FE 2020-05 Yes [id number] 1{tbl} Take 1 [facility] 1 mg-20 mcg 1-02 tablet by ity of (21)/75 mg 00:00: mouth [place] (7) tablet 00 daily. Medical Branch nicotine 2020-05 Yes [id number] 2mg Apply 1 [place] polacrilex 1-02 Each as ity of 2 mg gum 00:00: directed [place] 00 every 2 Medical (two) Branch hours as needed (smoking urge). LOESTRIN FE 2020-05 Yes [id number] 1{tbl} Take 1 [facility] 1 mg-20 mcg 1-02 tablet by ity of (21)/75 mg 00:00: mouth [place] (7) tablet 00 daily. Medical Branch nicotine 2020-05 Yes [id number] 2mg Apply 1 [place] polacrilex 1-02 Each as ity of 2 mg gum 00:00: directed [place] 00 every 2 Medical (two) Branch hours as needed (smoking urge). LOESTRIN FE 2020-05 Yes [id number] 1{tbl} Take 1 [facility] 1 mg-20 mcg 1-02 tablet by ity of (21)/75 mg 00:00: mouth [place] (7) tablet 00 daily. Medical Branch nicotine 2020-05 Yes [id number] 2mg Apply 1 [place] polacrilex 1-02 Each as ity of 2 mg gum 00:00: directed [place] 00 every 2 Medical (two) Branch hours as needed (smoking urge). LOESTRIN FE 2020-05 Yes [id number] 1{tbl} Take 1 [facility] 1 mg-20 mcg 1-02 tablet by ity of (21)/75 mg 00:00: mouth [place] (7) tablet 00 daily. Medical Branch nicotine 2020-05 Yes [id number] 2mg Apply 1 [place] polacrilex 1-02 Each as ity of 2 mg gum 00:00: directed [place] 00 every 2 Medical (two) Branch hours as needed (smoking urge). LOESTRIN FE 2020-05 Yes [id number] 1{tbl} Take 1 [facility] 1 mg-20 mcg 1-02 tablet by ity of (21)/75 mg 00:00: mouth [place] (7) tablet 00 daily. Medical Branch nicotine 2020-05 Yes [id number] 2mg Apply 1 [place] polacrilex 1-02 Each as ity of 2 mg gum 00:00: directed [place] 00 every 2 Medical (two) Branch hours as needed (smoking urge). LOESTRIN FE 2020-05 Yes [id number] 1{tbl} Take 1 [facility] 1 mg-20 mcg 1-02 tablet by ity of (21)/75 mg 00:00: mouth [place] (7) tablet 00 daily. Medical Branch nicotine 2020-05 Yes [id number] 2mg Apply 1 [place] polacrilex 1-02 Each as ity of 2 mg gum 00:00: directed 00 every 2 Medical (two) Branch hours as needed (smoking urge). LOESTRIN FE 2020-05 Yes [id number] 1{tbl} Take 1 [facility] 1 mg-20 mcg 1-02 tablet by ity of (21)/75 mg 00:00: mouth [place] (7) tablet 00 daily. Medical Branch omeprazole 2020-05 Yes 40mg Take 40 mg U nivers 40 mg 0-04 by mouth. ity of capsule 00:00: Medical Branch omeprazole 2020-05 Yes 40mg Take 40 mg U nivers 40 mg 0-04 by mouth. ity of capsule 00:00: Medical Branch omeprazole 2020-05 Yes 40mg Take 40 mg U nivers 40 mg 0-04 by mouth. ity of capsule 00:00: Medical Branch omeprazole 2020-05 Yes 40mg Take 40 mg U nivers 40 mg 0-04 by mouth. ity of capsule 00:00: Medical Branch omeprazole 2020-05 Yes 40mg Take 40 mg U nivers 40 mg 0-04 by mouth. ity of capsule 00:00: Medical Branch omeprazole 2020-05 Yes 40mg Take 40 mg U nivers 40 mg 0-04 by mouth. ity of capsule 00:00: Medical Branch omeprazole 2020-05 Yes 40mg Take 40 mg U nivers 40 mg 0-04 by mouth. ity of capsule 00:00: Medical Branch omeprazole 2020-05 Yes 40mg Take 40 mg U nivers 40 mg 0-04 by mouth. ity of capsule 00:00: [facility] omeprazole 2020- Yes 40mg Take 40 mg U nivers 40 mg 0-04 by mouth. ity of capsule 00:00: [facility] omeprazole 2020-05 Yes 40mg Take 40 mg U nivers 40 mg 0-04 by mouth. ity of capsule 00:00: [facility] omeprazole 2020-05 Yes 40mg Take 40 mg U nivers 40 mg 0-04 by mouth. ity of capsule 00:00: [facility] omeprazole 2020-05 Yes 40mg Take 40 mg U nivers 40 mg 0-04 by mouth. ity of capsule 00:00: [facility] omeprazole 2020-05 Yes 40mg Take 40 mg U nivers 40 mg 0-04 by mouth. ity of capsule 00:00: [facility] omeprazole 2020-05 Yes 40mg Take 40 mg U nivers 40 mg 0-04 by mouth. ity of capsule 00:00: [facility] omeprazole 2020-05 Yes 40mg Take 40 mg U nivers 40 mg 0-04 by mouth. ity of capsule 00:00: [facility] omeprazole 2020-05 Yes 40mg Take 40 mg U nivers 40 mg 0-04 by mouth. ity of capsule 00:00: [facility] omeprazole 2020-05 Yes 40mg Take 40 mg U nivers 40 mg 0-04 by mouth. ity of capsule 00:00: [facility] omeprazole 2020-05 Yes 40mg Take 40 mg U nivers 40 mg 0-04 by mouth. ity of capsule 00:00: [facility] omeprazole 2020-05 Yes 40mg Take 40 mg U nivers 40 mg 0-04 by mouth. ity of capsule 00:00: [address] omeprazole 2020-05 Yes 40mg Take 40 mg U nivers 40 mg 0-04 by mouth. ity of capsule 00:00: [address] omeprazole 2020-05 Yes 40mg Take 40 mg U nivers 40 mg 0-04 by mouth. ity of capsule 00:00: [address] omeprazole 2020-05 Yes 40mg Take 40 mg U nivers 40 mg 0-04 by mouth. ity of capsule 00:00: [address] omeprazole 2020-1 Yes 40mg Take 40 mg U nivers 40 mg 0-04 by mouth. ity of capsule 00:00: [address] omeprazole 2020-1 Yes 40mg Take 40 mg U nivers 40 mg 0-04 by mouth. ity of capsule 00:00: [address] omeprazole 2020- Yes 40mg Take 40 mg U nivers 40 mg 0-04 by mouth. ity of capsule 00:00: [address] Sulfamethox 2020-0 Yes 1 tab, PO, Memoria azole 800 8-12 BID, X 7 l MG / 20:04: day, # 14 [place] Trimethopri 00 tab, 0 m 160 MG Refill(s), Oral Tablet Pharmacy: [Bactrim] [facility] #[id number], 165.1, cm, 12/27/20 14:00:00 CDT, Height, 60, kg, 12/27/20 14:00:00 CDT, Weight Sulfamethox 0 Yes 1 tab, PO, [facility] azole 800 8-12 BID, X 7 l MG / 20:04: day, # 14 [place] Trimethopri 00 tab, 0 m 160 MG Refill(s), Oral Tablet Pharmacy: [Bactrim] [facility] #[id number], 165.1, cm, 12/27/20 14:00:00 CDT, Height, 60, kg, 12/27/20 14:00:00 CDT, Weight Sulfamethox 2020-0 Yes 1 tab, PO, [facility] azole 800 8-12 BID, X 7 l MG / 20:04: day, # 14 [place] Trimethopri 00 tab, 0 m 160 MG Refill(s), Oral Tablet Pharmacy: [Bactrim] [facility] #[id number], 165.1, cm, 12/27/20 14:00:00 CDT, Height, 60, kg, 12/27/20 14:00:00 CDT, Weight Acetaminoph No Notes: Do M emoria en 5-20 not exceed l 22:47: 4 gm/day. [place] 00 (Same as: Tylenol) Acetaminoph No Notes: Do M emoria en 5-20 not exceed l 22:47: 4 gm/day. [place] 00 (Same as: Tylenol) Acetaminoph 2020-0 No Notes: Do M emoria en 5-20 not exceed l 22:47: 4 gm/day. [place] (Same as: Tylenol) Metoclopram 2020-0 No 10 mg, Pietro kelli mark 5-20 Route: l 22:23: IVP, Drug [place] 00 form: INJ, ONCE, Dosing Weight 60, kg, Priority: STAT, Start date: 10/04/20 17:23:00 CDT, Stop date: 10/04/20 17:23:00 CDT Sodium 1-0 No 1,000 mL, Memori a Chloride 5-20 Infuse l 0.9% 22:23: Over: 1 [place] (Bolus) IV 00 hr, Route: IV, ONCE, Priority: STAT, Dosing Weight 60 kg, Start date: 10/04/20 17:23:00 CDT, Stop date: 10/04/20 17:23:00 CDT Metoclopram 2020-0 No 10 mg, Pietro kelli mark 5-20 Route: l 22:23: IVP, Drug form: INJ, ONCE, Dosing Weight 60, kg, Priority: STAT, Start date: 10/04/20 17:23:00 CDT, Stop date: 10/04/20 17:23:00 CDT Sodium 1-0 No 1,000 mL, Memori a Chloride 5-20 Infuse l 0.9% 22:23: Over: 1 [place] (Bolus) IV 00 hr, Route: IV, ONCE, Priority: STAT, Dosing Weight 60 kg, Start date: 10/04/20 17:23:00 CDT, Stop date: 10/04/20 17:23:00 CDT Metoclopram 2020-0 No 10 mg, Pietro kelli mark 5-20 Route: l 22:23: IVP, Drug [place] 00 form: INJ, ONCE, Dosing Weight 60, kg, Priority: STAT, Start date: 10/04/20 17:23:00 CDT, Stop date: 10/04/20 17:23:00 CDT Sodium 1-0 No 1,000 mL, Memori a Chloride 5-20 Infuse l 0.9% 22:23: Over: 1 [place] (Bolus) IV 00 hr, Route: IV, ONCE, Priority: STAT, Dosing Weight 60 kg, Start date: 10/04/20 17:23:00 CDT, Stop date: 10/04/20 17:23:00 CDT Blood-Gluco 2021-0 Yes [id number] Use as [facility] se Meter 5-12 directed ity of (CONTOUR 00:00: [place] NEXT METER) 00 Medical Misc Branch Blood-Gluco 2021-0 Yes [id number] Use as [facility] se Meter 5-12 directed ity of (CONTOUR 00:00: [place] NEXT METER) 00 Medical Misc Branch Blood-Gluco 2021-0 Yes [id number] Use as [facility] se Meter 5-12 directed ity of (CONTOUR 00:00: [place] NEXT METER) 00 Medical Misc Branch Blood-Gluco 2021-0 Yes [id number] Use as [facility] se Meter 5-12 directed ity of (CONTOUR 00:00: [place] NEXT METER) 00 Medical Misc Branch Blood-Gluco 2021-0 Yes [id number] Use as [facility] se Meter 5-12 directed ity of (CONTOUR 00:00: [place] NEXT METER) 00 Medical Misc Branch Blood-Gluco 2021-0 Yes [id number] Use as [facility] se Meter 5-12 directed ity of (CONTOUR 00:00: [place] NEXT METER) 00 Medical Misc Branch Blood-Gluco 2021-0 Yes [id number] Use as [facility] se Meter 5-12 directed ity of (CONTOUR 00:00: [place] NEXT METER) 00 Medical Misc Branch Blood-Gluco 2021-0 Yes [id number] Use as [facility] se Meter 5-12 directed ity of (CONTOUR 00:00: [place] NEXT METER) 00 Medical Misc Branch Blood-Gluco 2021-0 Yes [id number] Use as [facility] se Meter 5-12 directed ity of (CONTOUR 00:00: [place] NEXT METER) 00 Medical Misc Branch Blood-Gluco 2021-0 Yes [id number] Use as [facility] se Meter 5-12 directed ity of (CONTOUR 00:00: [place] NEXT METER) 00 Medical Misc Branch Blood-Gluco 2021-0 Yes [id number] Use as [facility] se Meter 5-12 directed ity of (CONTOUR 00:00: [place] NEXT METER) 00 Medical Misc Branch Blood-Gluco 2021-0 Yes [id number] Use as [facility] se Meter 5-12 directed ity of (CONTOUR 00:00: [place] NEXT METER) 00 Medical Misc Branch Blood-Gluco 2021-0 Yes [id number] Use as [facility] se Meter 5-12 directed ity of (CONTOUR 00:00: [place] NEXT METER) 00 Medical Misc Branch Blood-Gluco 2021-0 Yes [id number] Use as [facility] se Meter 5-12 directed ity of (CONTOUR 00:00: [place] NEXT METER) 00 Medical Misc Branch Blood-Gluco 2021-0 Yes [id number] Use as [facility] se Meter 5-12 directed ity of (CONTOUR 00:00: [place] NEXT METER) 00 Medical Misc Branch Blood-Gluco 2021-0 Yes [id number] Use as [facility] se Meter 5-12 directed ity of (CONTOUR 00:00: [place] NEXT METER) 00 Medical Misc Branch Blood-Gluco 2021-0 Yes [id number] Use as [facility] se Meter 5-12 directed ity of (CONTOUR 00:00: [place] NEXT METER) 00 Medical Misc Branch Blood-Gluco 2021-0 Yes [id number] Use as [facility] se Meter 5-12 directed ity of (CONTOUR 00:00: [place] NEXT METER) 00 Medical Misc Branch Blood-Gluco 2021-0 Yes [id number] Use as [facility] se Meter 5-12 directed ity of (CONTOUR 00:00: [place] NEXT METER) 00 Medical Misc Branch Blood-Gluco 2021-0 Yes [id number] Use as [facility] se Meter 5-12 directed ity of (CONTOUR 00:00: [place] NEXT METER) 00 Medical Misc Branch Blood-Gluco 2021-0 Yes [id number] Use as [facility] se Meter 5-12 directed ity of (CONTOUR 00:00: [place] NEXT METER) 00 Medical Misc Branch Blood-Gluco 2021-0 Yes [id number] Use as [facility] se Meter 5-12 directed ity of (CONTOUR 00:00: [place] NEXT METER) 00 Medical Misc Branch Blood-Gluco 2021-0 Yes [id number] Use as [facility] se Meter 5-12 directed ity of (CONTOUR 00:00: [place] NEXT METER) 00 Medical Misc Branch Blood-Gluco 2021-0 Yes [id number] Use as [facility] se Meter 5-12 directed ity of (CONTOUR 00:00: [place] NEXT METER) 00 Medical Misc Branch Blood-Gluco Yes [id number] Use as [facility] se Meter 12 directed ity of (CONTOUR 00:00: [place] NEXT METER) Medical [facility] Branch blood sugar 2021- No [id number] Use as [facility] diagnostic [id number] directed ity of (CONTOUR 00:00: 00:00 [place] NEXT TEST 00 :00 Medical STRIPS) Branch strip Dextrose No 25 mL, Memoria 50% Syringe 5-10 Route: l (D50W) 00:21: IVP, [place] Dosing Weight 59.091, kg, ONCE, STAT, Start date: 09/23/20 19:21:00 CDT, Stop date: 09/23/20 19:21:00 CDT, Dextrose 50%: 12.5 gm = 25 mL Dextrose 0 No 25 mL, Mem[facility] 50% Syringe 5-10 Route: l (D50W) 00:21: IVP, Dosing Weight 59.091, kg, ONCE, STAT, Start date: 09/23/20 19:21:00 CDT, Stop date: 09/23/20 19:21:00 CDT, Dextrose 50%: 12.5 gm = 25 mL Dextrose No 25 mL, Mem[facility] 50% Syringe 5-10 Route: l (D50W) 00:21: IVP, Dosing Weight 59.091, kg, ONCE, STAT, Start date: 09/23/20 19:21:00 CDT, Stop date: 09/23/20 19:21:00 CDT, Dextrose 50%: 12.5 gm = 25 mL Promethazin Yes 12.5 mg = M emoria e 5-10 1 tab, PO, l Hydrochlori 00:14: Q6H, PRN Speedy lundberg de 12.5 MG 00 Nausea & Oral Tablet Vomiting, [Phenergan] # 12 tab, 0 Refill(s), Pharmacy: [facility] #[id number], 165.1, cm, 09/23/20 16:19:00 CDT, Height, 59.091, kg, 09/23/20 16:19:00 CDT, Weight Acetaminoph Yes 1 tab, PO, Memoria en 300 MG / 5-10 Q8H, PRN l Codeine 00:14: Pain, X 3 [place] nn Phosphate 00 day, # 9 30 MG Oral tab, 0 Tablet Refill(s), [Tylenol Pharmacy: with [facility] Codeine #3] cy #[id number], 165.1, cm, 09/23/20 16:19:00 CDT, Height, 59.091, kg, 09/23/20 16:19:00 CDT, Weight Promethazin 0 Yes 12.5 mg = M emoria e 5-10 1 tab, PO, l Hydrochlori 00:14: Q6H, PRN He rmann de 12.5 MG 00 Nausea & Oral Tablet Vomiting, [Phenergan] # 12 tab, 0 Refill(s), Pharmacy: [facility] #[id number], 165.1, cm, 09/23/20 16:19:00 CDT, Height, 59.091, kg, 09/23/20 16:19:00 CDT, Weight Acetaminoph 0 Yes 1 tab, PO, Memoria en 300 MG / 5-10 Q8H, PRN l Codeine 00:14: Pain, X 3 [place] nn Phosphate 00 day, # 9 30 MG Oral tab, 0 Tablet Refill(s), [Tylenol Pharmacy: with [facility] Codeine #3] cy #[id number], 165.1, cm, 09/23/20 16:19:00 CDT, Height, 59.091, kg, 09/23/20 16:19:00 CDT, Weight Promethazin 0 Yes 12.5 mg = M emoria e 5-10 1 tab, PO, l Hydrochlori 00:14: Q6H, PRN He rmann de 12.5 MG 00 Nausea & Oral Tablet Vomiting, [Phenergan] # 12 tab, 0 Refill(s), Pharmacy: [facility] #[id number], 165.1, cm, 09/23/20 16:19:00 CDT, Height, 59.091, kg, 09/23/20 16:19:00 CDT, Weight Acetaminoph 0 Yes 1 tab, PO, Memoria en 300 MG / 5-10 Q8H, PRN l Codeine 00:14: Pain, X 3 [place] nn Phosphate 00 day, # 9 30 MG Oral tab, 0 Tablet Refill(s), [Tylenol Pharmacy: with [facility] Codeine #3] cy #[id number], 165.1, cm, 09/23/20 16:19:00 CDT, Height, 59.091, kg, 09/23/20 16:19:00 CDT, Weight Acetaminoph No 1 tab, Pietro kelli en 325 MG / 09-23 Route: PO, l Hydrocodone 23:38: Drug Form: [place] Bitartrate 00 TAB, 5 MG Oral Dosing Tablet Weight 59.091, kg, ONCE, STAT, Start date: 09/23/20 18:38:00 CDT, Stop date: 09/23/20 18:38:00 CDT Acetaminoph No 1 tab, Pietro kelli en 325 MG / 09-23 Route: PO, l Hydrocodone 23:38: Drug Form: [place] Bitartrate 00 TAB, 5 MG Oral Dosing Tablet Weight 59.091, kg, ONCE, STAT, Start date: 09/23/20 18:38:00 CDT, Stop date: 09/23/20 18:38:00 CDT Acetaminoph No 1 tab, Pietro kelli en 325 MG / 09-23 Route: PO, l Hydrocodone 23:38: Drug Form: [place] Bitartrate 00 TAB, 5 MG Oral Dosing Tablet Weight 59.091, kg, ONCE, STAT, Start date: 09/23/20 18:38:00 CDT, Stop date: 09/23/20 18:38:00 CDT Morphine No Notes: Memoria 09-23 (Same l 22:01: as:MORPhin [place] 00 e Sulfate) Phenergan No Notes: Do Mem oria 09-23 not give l 22:01: IV push. [place] 00 (Same as: Phenergan) Sodium No 1,000 mL, Memori a Chloride 09-23 1000 l 0.9% 22:01: ml/hr, [place] (Bolus) IV 00 Infuse Over: 1 hr, Route: IV, 1,000, Drug form: INJ, ONCE, Priority: STAT, Dosing Weight 59.091 kg, Start date: 09/23/20 17:01:00 CDT, Stop date: 09/23/20 17:01:00 CDT, 0 Morphine No Notes: [facility] 5-09 (Same l 22:01: as:MORPhin [place] 00 e Sulfate) Phenergan No Notes: Do Mem oria 5-09 not give l 22:01: IV push. [place] 00 (Same as: Phenergan) Sodium No 1,000 mL, Memori a Chloride 5-09 1000 l 0.9% 22:01: ml/hr, [place] (Bolus) IV 00 Infuse Over: 1 hr, Route: IV, 1,000, Drug form: INJ, ONCE, Priority: STAT, Dosing Weight 59.091 kg, Start date: 09/23/20 17:01:00 CDT, Stop date: 09/23/20 17:01:00 CDT, 0 Morphine 0 No Notes: Memoria 5- (Same l 22:01: as:MORPhin [place] 00 e Sulfate) Phenergan No Notes: Do Mem oria 5-09 not give l 22:01: IV push. [place] 00 (Same as: Phenergan) Sodium No 1,000 mL, Memori a Chloride 5-09 1000 l 0.9% 22:01: ml/hr, [place] (Bolus) IV 00 Infuse Over: 1 hr, Route: IV, 1,000, Drug form: INJ, ONCE, Priority: STAT, Dosing Weight 59.091 kg, Start date: 09/23/20 17:01:00 CDT, Stop date: 09/23/20 17:01:00 CDT, 0 proMETHazin 2020-0 Yes [id number] 25mg Take 1 [facility] e 25 mg 4-11 tablet by ity of tablet 00:00: mouth [place] 00 every 6 Medical (six) Branch hours as needed for Nausea and Vomiting (N/V). proMETHazin 2020-0 Yes [id number] 25mg Take 1 [facility] e 25 mg 4-11 tablet by ity of tablet 00:00: mouth [place] 00 every 6 Medical (six) Branch hours as needed for Nausea and Vomiting (N/V). proMETHazin 2020-0 Yes [id number] 25mg Take 1 [facility] e 25 mg 4-11 tablet by ity of tablet 00:00: mouth [place] 00 every 6 Medical (six) Branch hours as needed for Nausea and Vomiting (N/V). proMETHazin 2020-0 Yes [id number] 25mg Take 1 [facility] e 25 mg 4-11 tablet by ity of tablet 00:00: mouth [place] 00 every 6 Medical (six) Branch hours as needed for Nausea and Vomiting (N/V). proMETHazin 2020-0 Yes [id number] 25mg Take 1 [facility] e 25 mg 4-11 tablet by ity of tablet 00:00: mouth [place] 00 every 6 Medical (six) Branch hours as needed for Nausea and Vomiting (N/V). proMETHazin 2020-0 Yes [id number] 25mg Take 1 [facility] e 25 mg 4-11 tablet by ity of tablet 00:00: mouth [place] 00 every 6 Medical (six) Branch hours as needed for Nausea and Vomiting (N/V). proMETHazin 0 Yes [id number] 25mg Take 1 [facility] e 25 mg 4-11 tablet by ity of tablet 00:00: mouth [place] 00 every 6 Medical (six) Branch hours as needed for Nausea and Vomiting (N/V). proMETHazin 2020-0 Yes [id number] 25mg Take 1 [facility] e 25 mg 4-11 tablet by ity of tablet 00:00: mouth [place] 00 every 6 Medical (six) Branch hours as needed for Nausea and Vomiting (N/V). proMETHazin 2020-0 Yes [id number] 25mg Take 1 [facility] e 25 mg 4-11 tablet by ity of tablet 00:00: mouth [place] 00 every 6 Medical (six) Branch hours as needed for Nausea and Vomiting (N/V). proMETHazin 2020-0 Yes [id number] 25mg Take 1 [facility] e 25 mg 4-11 tablet by ity of tablet 00:00: mouth [place] 00 every 6 Medical (six) Branch hours as needed for Nausea and Vomiting (N/V). proMETHazin 2020-0 Yes [id number] 25mg Take 1 [facility] e 25 mg 4-11 tablet by ity of tablet 00:00: mouth [place] 00 every 6 Medical (six) Branch hours as needed for Nausea and Vomiting (N/V). proMETHazin 2020-0 Yes [id number] 25mg Take 1 [facility] e 25 mg 4-11 tablet by ity of tablet 00:00: mouth [place] 00 every 6 Medical (six) Branch hours as needed for Nausea and Vomiting (N/V). proMETHazin 2020-0 Yes [id number] 25mg Take 1 [facility] e 25 mg 4-11 tablet by ity of tablet 00:00: mouth [place] 00 every 6 Medical (six) Branch hours as needed for Nausea and Vomiting (N/V). proMETHazin 2020-0 Yes [id number] 25mg Take 1 [facility] e 25 mg 4-11 tablet by ity of tablet 00:00: mouth [place] 00 every 6 Medical (six) Branch hours as needed for Nausea and Vomiting (N/V). proMETHazin 2020-0 Yes [id number] 25mg Take 1 [facility] e 25 mg 4-11 tablet by ity of tablet 00:00: mouth [place] 00 every 6 Medical (six) Branch hours as needed for Nausea and Vomiting (N/V). proMETHazin 2020-0 Yes [id number] 25mg Take 1 [facility] e 25 mg 4-11 tablet by ity of tablet 00:00: mouth [place] 00 every 6 Medical (six) Branch hours as needed for Nausea and Vomiting (N/V). proMETHazin 2020-0 Yes [id number] 25mg Take 1 [facility] e 25 mg 4-11 tablet by ity of tablet 00:00: mouth [place] 00 every 6 Medical (six) Branch hours as needed for Nausea and Vomiting (N/V). proMETHazin 2020-0 Yes [id number] 25mg Take 1 [facility] e 25 mg 4-11 tablet by ity of tablet 00:00: mouth [place] 00 every 6 Medical (six) Branch hours as needed for Nausea and Vomiting (N/V). proMETHazin 2020-0 Yes [id number] 25mg Take 1 [facility] e 25 mg 4-11 tablet by ity of tablet 00:00: mouth [place] 00 every 6 [facility] (six) Branch hours as needed for Nausea and Vomiting (N/V). proMETHazin 2020-0 Yes [id number] 25mg Take 1 [facility] 25 mg 4-11 tablet by [facility] tablet 00:00: mouth [place] 00 every 6 [facility] (six) Branch hours as needed for Nausea and Vomiting (N/V). proMETHazin 2020-0 Yes [id number] 25mg Take 1 [facility] 25 mg 4-11 tablet by [facility] tablet 00:00: mouth [place] 00 every 6 Medical (six) Branch hours as needed for Nausea and Vomiting (N/V). proMETHazin 2020-0 Yes [id number] 25mg Take 1 [facility] 4-11 tablet by [facility] of tablet 00:00: mouth [place] 00 every 6 Medical (six) Branch hours as needed for Nausea and Vomiting (N/V). proMETHazin 2020-0 Yes [id number] 25mg Take 1 [facility] 25 mg 4-11 tablet by [facility]y of tablet 00:00: mouth [place] 00 every 6 Medical (six) Branch hours as needed for Nausea and Vomiting (N/V). proMETHazin 2020-0 Yes [id number] 25mg Take 1 [facility] 25 mg 4-11 tablet by ity of tablet 00:00: mouth [place] 00 every 6 Medical (six) Branch hours as needed for Nausea and Vomiting (N/V). proMETHazin 0 Yes [id number] 25mg Take 1 [facility] 25 mg 4-11 tablet by ity of tablet 00:00: mouth [place] 00 every 6 Medical (six) Branch hours as needed for Nausea and Vomiting (N/V). acetaminoph 2021- No 650mg Take [address] [facility] [address] [facility] 3- 03-17 tablets [facility] (TYLENOL) 00:00: 23:59 (650 mg Medi basil 325 MG 00 :00 total) by Center tablet mouth every 6 (six) hours as needed for Pain for up to 360 days. acetaminoph 0 Yes 4647 1{tbl} Take 1 [...] (scale 7-10). Indication s: acute pain acetaminoph 2021-0 Yes 4647 1{tbl} Take 1 [facility] en-codeine 1-12 tablet by ity of 300-30 mg 00:00: mouth [place] tablet 00 every 4 Medical (four) Branch hours as needed for Pain (scale 7-10). Indication s: acute pain acetaminoph 2021-0 Yes 4647 1{tbl} Take 1 [facility] [place] en-codeine 1-12 tablet by ity of 300-30 mg 00:00: mouth [place] tablet 00 every 4 Medical (four) Branch hours as needed for Pain (scale 7-10). Indication s: acute pain acetaminoph 2021-0 Yes 4647 1{tbl} Take 1 [facility] [place] en-codeine 1-12 tablet by ity of 300-30 mg 00:00: mouth [place] tablet 00 every 4 Medical (four) Branch hours as needed for Pain (scale 7-10). Indication s: acute pain acetaminoph 2021-0 Yes 4647 1{tbl} Take 1 [facility] [place] en-codeine 1-12 tablet by ity of 300-30 mg 00:00: mouth [place] tablet 00 every 4 Medical (four) Branch hours as needed for Pain (scale 7-10). Indication s: acute pain acetaminoph 2021-0 Yes 4647 1{tbl} Take 1 [facility] [place] en-codeine 1-12 tablet by ity of 300-30 mg 00:00: mouth [place] tablet 00 every 4 Medical (four) Branch hours as needed for Pain (scale 7-10). Indication s: acute pain acetaminoph 2021-0 Yes 4647 1{tbl} Take 1 [facility] [place] en-codeine 1-12 tablet by ity of 300-30 mg 00:00: mouth [place] tablet 00 every 4 Medical (four) Branch hours as needed for Pain (scale 7-10). Indication s: acute pain acetaminoph 2021-0 Yes 4647 1{tbl} Take 1 [facility] [place] en-codeine 1-12 tablet by ity of 300-30 mg 00:00: mouth [place] tablet 00 every 4 Medical (four) Branch hours as needed for Pain (scale 7-10). Indication s: acute pain acetaminoph 2021-0 Yes 4647 1{tbl} Take 1 [facility] [place] en-codeine 1-12 tablet by ity of 300-30 mg 00:00: mouth [place] tablet 00 every 4 Medical (four) Branch hours as needed for Pain (scale 7-10). Indication s: acute pain acetaminoph 2021-0 Yes 4647 1{tbl} Take 1 [facility] [place] en-codeine 1-12 tablet by [facility]y of 300-30 mg 00:00: mouth [place] tablet 00 every 4 Medical (four) Branch hours as needed for Pain (scale 7-10). Indication s: acute pain acetaminoph 2021-0 Yes 4647 1{tbl} Take 1 [facility] [place] en-codeine 1-12 tablet by ity of 300-30 mg 00:00: mouth [place] tablet 00 every 4 Medical (four) Branch hours as needed for Pain (scale 7-10). Indication s: acute pain acetaminoph 2021-0 Yes 4647 1{tbl} Take 1 [facility] [place] en-codeine 1-12 tablet by ity of 300-30 mg 00:00: mouth [place] tablet 00 every 4 Medical (four) Branch hours as needed for Pain (scale 7-10). Indication s: acute pain acetaminoph 2021-0 Yes 4647 1{tbl} Take 1 [facility] [place] en-codeine 1-12 tablet by [facility]y of 300-30 mg 00:00: mouth [place] tablet 00 every 4 Medical (four) Branch hours as needed for Pain (scale 7-10). Indication s: acute pain acetaminoph 2021-0 Yes 4647 1{tbl} Take 1 [facility] [place] en-codeine 1-12 tablet by ity of 300-30 mg 00:00: mouth [place] tablet 00 every 4 Medical (four) Branch hours as needed for Pain (scale 7-10). Indication s: acute pain acetaminoph 2021-0 Yes 4647 1{tbl} Take 1 [facility] [place] en-codeine 1-12 tablet by ity of 300-30 mg 00:00: mouth [place] tablet 00 every 4 Medical (four) Branch hours as needed for Pain (scale 7-10). Indication s: acute pain acetaminoph 2021-0 Yes 4647 1{tbl} Take 1 [facility] [place] en-codeine 1-12 tablet by ity of 300-30 mg 00:00: mouth [place] tablet 00 every 4 Medical (four) Branch hours as needed for Pain (scale 7-10). Indication s: acute pain acetaminoph 2021-0 Yes 4647 1{tbl} Take 1 [facility] [place] en-codeine 1-12 tablet by ity of 300-30 mg 00:00: mouth [place] tablet 00 every 4 Medical (four) Branch hours as needed for Pain (scale 7-10). Indication s: acute pain acetaminoph 2021-0 Yes 4647 1{tbl} Take 1 [facility] [place] en-codeine 1-12 tablet by ity of 300-30 mg 00:00: mouth [place] tablet 00 every 4 Medical (four) Branch hours as needed for Pain (scale 7-10). Indication s: acute pain acetaminoph 2021-0 Yes 4647 1{tbl} Take 1 [facility] [place] en-codeine 1-12 tablet by ity of 300-30 mg 00:00: mouth [place] tablet 00 every 4 Medical (four) Branch hours as needed for Pain (scale 7-10). Indication s: acute pain acetaminoph 2021-0 Yes 4647 1{tbl} Take 1 [facility] [place] en-codeine 1-12 tablet by ity of 300-30 mg 00:00: mouth [place] tablet 00 every 4 Medical (four) Branch hours as needed for Pain (scale 7-10). Indication s: acute pain acetaminoph 2021-0 Yes 4647 1{tbl} Take 1 [facility] [place] en-codeine 1-12 tablet by ity of 300-30 mg 00:00: mouth [place] tablet 00 every 4 Medical (four) Branch hours as needed for Pain (scale 7-10). Indication s: acute pain acetaminoph 2021-0 Yes 4647 1{tbl} Take 1 [facility] [place] en-codeine 1-12 tablet by ity of 300-30 mg 00:00: mouth [place] tablet 00 every 4 Medical (four) Branch hours as needed for Pain (scale 7-10). Indication s: acute pain acetaminoph 2021-0 Yes 4647 1{tbl} Take 1 [facility] [place] en-codeine 1-12 tablet by ity of 300-30 mg 00:00: mouth [place] tablet 00 every 4 Medical (four) Branch hours as needed for Pain (scale 7-10). Indication s: acute pain gabapentin 2020-0 Yes gabapentin U nivers 300 [...] times a day by oral route. gabapentin 202-0 Yes gabapentin U nivers 300 mg 1-07 300 mg ity of capsule 00:00: capsule [place] 00 Take 1 Medical capsule 3 Branch times a day by oral route. gabapentin 2020-0 Yes gabapentin U nivers 300 mg 1-07 300 mg ity of capsule 00:00: capsule [place] 00 Take 1 Medical capsule 3 Branch times a day by oral route. gabapentin 2020-0 Yes gabapentin U nivers 300 mg 1-07 300 mg ity of capsule 00:00: capsule [place] 00 Take 1 Medical capsule 3 Branch times a day by oral route. gabapentin 2020-0 Yes gabapentin U nivers 300 mg 1-07 300 mg ity of capsule 00:00: capsule [place] 00 Take 1 Medical capsule 3 Branch times a day by oral route. gabapentin 2020-0 Yes gabapentin U nivers 300 mg 1-07 300 mg ity of capsule 00:00: capsule [place] 00 Take 1 Medical capsule 3 Branch [...] 300 mg ity of capsule 00:00: capsule [place] 00 Take 1 Medical capsule 3 Branch times a day by oral route. gabapentin 2020-0 Yes gabapentin U nivers 300 mg 1-07 300 mg ity of capsule 00:00: capsule 00 Take 1 Medical capsule 3 Branch times a day by oral route. gabapentin 2020-0 Yes gabapentin U nivers 300 mg 1-07 300 mg ity of capsule 00:00: capsule [place] 00 Take 1 Medical capsule 3 Branch times a day by oral route. gabapentin 2021-0 Yes gabapentin U nivers 300 mg 1-07 300 mg ity of capsule 00:00: capsule [place] 00 Take 1 Medical capsule 3 Branch times a day by oral route. gabapentin 2021-0 Yes gabapentin U nivers 300 mg 1-07 300 mg ity of capsule 00:00: capsule [place] 00 Take 1 Medical capsule 3 Branch times a day by oral route. gabapentin 2020-0 Yes gabapentin U nivers 300 mg 1-07 300 mg ity of capsule 00:00: capsule Take 1 Medical capsule 3 Branch times a day by oral route. gabapentin Yes gabapentin U nivers 300 mg 05-24 300 mg ity of capsule 00:00: capsule Take 1 Medical capsule 3 Branch times a day by oral route. promethazin Yes 25mg Take [address] [facility] 07 tablet (25 [facility] (PHENERGAN) 00:[facility]: mg total) M edical 25 MG 00 by mouth Center tablet every 8 (eight) hours as needed. promethazin Yes 25mg Take [address] [facility] 05-24 tablet (25 [facility] (PHENERGAN) 00:00: mg total) M edical 25 MG 00 by mouth Center tablet every 8 (eight) hours as needed. promethazin Yes 25mg Take [address] [facility] 05-24 tablet (25 [facility] (PHENERGAN) 00:00: mg total) M edical 25 MG 00 by mouth Center tablet every 8 (eight) hours as needed. gabapentin 2021- No 600mg Q.5D Take [address] [facility] (NEURONTIN) 05-24 capsules [place] es 300 MG 00:00: 23:59 (600 mg Medical capsule 00 :00 total) by Center mouth 2 (two) times daily. scopolamine 2021- No 1.5mg Place [address] (TRANSDERM- 05-24 patch (1.5 L ukes SCOP) 1 mg 00:00: 23:59 mg total) M edical over 3 days 00 :00 [facility] patch skin every third day. sucralfate 2019-[address] [facility] [address] (CARAFATE) 2-26 [facility] 1 gram 00:00: Medical tablet 00 [place] sucralfate 2019-[address] [facility] [address] (CARAFATE) 2-26 [facility] 1 gram 00:00: Medical tablet 00 [place] sucralfate 2019-[address] [facility] [address] (CARAFATE) 2-26 [facility] 1 gram 00:00: Medical tablet 00 [place] tramadol Yes 50 mg = 1 Pietro kelli hydrochlori 8-03 tab, PO, l de 50 MG 08:44: Q6H, PRN Perlita nn Oral Tablet 00 Pain, X 10 day, # 40 tab, 0 Refill(s) tramadol Yes 50 mg = 1 Pietro kelli hydrochlori 8-03 tab, PO, l de 50 MG 08:44: Q6H, PRN [place]ita nn Oral Tablet 00 Pain, X 10 day, # 40 tab, 0 Refill(s) tramadol Yes 50 mg = 1 Pietro kelli hydrochlori 8-03 tab, PO, l de 50 MG 08:44: Q6H, PRN Perlita nn Oral Tablet 00 Pain, X 10 day, # 40 tab, 0 Refill(s) insulin Yes 32 unit, Memori a detemir 100 8- SUB-Q, l UNT/ML 08:43: BID, # 15 [place] n Injectable 00 mL, 1 Solution Refill(s) [Levemir] insulin Yes 32 unit, Mem[facility] a detemir 100 8-03 SUB-Q, l UNT/ML 08:43: BID, # 15 [place] [facility] Injectable 00 mL, 1 Solution Refill(s) [Levemir] insulin Yes 32 unit, Memori a detemir 100 8-03 SUB-Q, l UNT/ML 08:43: BID, # 15 [place] n Injectable 00 mL, 1 Solution Refill(s) [Levemir] Omnipaque Yes Notes: [facility]ori a 300 12-18 (Same l injectable 08:19: as:Omnipaq H ermann solution 00 ue 300). WASTE: F/P - Black; E - [facility] Trash [facility] Omnipaque Yes Notes: [facility] a 300 12-18 (Same l injectable 08:19: as:Omnipaq H ermann solution 00 ue 300). WASTE: F/P - Black; E - Municipal Trash [facility] Omnipaque Yes Notes: [facility] a 300 12-18 (Same l injectable 08:19: as:Omnipaq H ermann solution 00 ue 300). WASTE: F/P - Black; E - Municipal Trash Bin Reglan No 10 mg, [facility] 12-18 Route: l 07:56: IVP, Drug form: INJ, ONCE, Dosing Weight 62.415, kg, Priority: STAT, Start date: 12/18/18 2:56:00 CDT, Stop date: 12/18/18 2:56:00 CDT Reglan 2019-0 No 10 mg, Memoria 8 Route: l 07:56: IVP, Drug [place] 00 form: INJ, ONCE, Dosing Weight 62.415, kg, Priority: STAT, Start date: 12/18/18 2:56:00 CDT, Stop date: 12/18/18 2:56:00 CDT Reglan 2019-0 No 10 mg, [facility] 8 Route: l 07:56: IVP, Drug [place] 00 form: INJ, ONCE, Dosing Weight 62.415, kg, Priority: STAT, Start date: 12/18/18 2:56:00 CDT, Stop date: 12/18/18 2:56:00 CDT NS (Bolus) 2019-0 No 1,000 mL, Me moria IV - 1,000 l 07:54: ml/hr, [place] 00 Infuse Over: 1 hr, Route: IV, ONCE, Priority: STAT, Dosing Weight 62.415 kg, Start date: 12/18/18 2:54:00 CDT, Stop date: 12/18/18 2:54:00 CDT Morphine 2019-0 No 6 mg, Memoria 8- Route: l 07:54: IVP, ONCE, Dosing Weight 62.415, kg, Priority: STAT, Start date: 12/18/18 2:54:00 CDT, Stop date: 12/18/18 2:54:00 CDT NS (Bolus) 2019-0 No 1,000 mL, Me moria IV - 1,000 l 07:54: ml/hr, [place] 00 Infuse Over: 1 hr, Route: IV, ONCE, Priority: STAT, Dosing Weight 62.415 kg, Start date: 12/18/18 2:54:00 CDT, Stop date: 12/18/18 2:54:00 CDT Morphine 2019-0 No 6 mg, [facility]oria 8- Route: l 07:54: IVP, ONCE, Dosing Weight 62.415, kg, Priority: STAT, Start date: 12/18/18 2:54:00 CDT, Stop date: 12/18/18 2:54:00 CDT NS (Bolus) 2019-0 No 1,000 mL, Me moria IV 12-18 1,000 l 07:54: ml/hr, Infuse Over: 1 hr, Route: IV, ONCE, Priority: STAT, Dosing Weight 62.415 kg, Start date: 12/18/18 2:54:00 CDT, Stop date: 12/18/18 2:54:00 CDT Morphine 2019 No 6 mg, [facility] 12-18 Route: l 07:54: IVP, ONCE, Dosing Weight 62.415, kg, Priority: STAT, Start date: 12/18/18 2:54:00 CDT, Stop date: 12/18/18 2:54:00 CDT Saline No Notes: [facility] Flush 0.9% 8-03 (Same as: l 06:38: BD Posiflush) Saline No Notes: [facility] Flush 0.9% 8-03 (Same as: l 06:38: BD Randal 00 Posiflush) Saline No Notes: [facility] Flush 0.9% 8-03 (Same as: l 06:38: BD [place] 00 Posiflush) Dicyclomine Yes 20 mg = 1 M emoria Hydrochlori 5-28 tab, PO, l de 20 MG 09:53: QID-Before Her maurer Oral Tablet 00 Meals, PRN [Bentyl] Abdominal Pain, # 20 tab, 0 Refill(s) Phenergan 2019 Yes 25 mg = 1 Mem oria 25 mg oral 5-28 tab, PO, l tablet 09:53: Q6H, PRN [place] 00 Nausea, # 15 tab, 0 Refill(s) Dicyclomine Yes 20 mg = 1 M emoria Hydrochlori 5-28 tab, PO, l de 20 MG 09:53: QID-Before Her maurer Oral Tablet 00 Meals, PRN [Bentyl] Abdominal Pain, # 20 tab, 0 Refill(s) Phenergan Yes 25 mg = 1 Mem [facility]ria 25 mg oral 5-28 tab, PO, l tablet 09:53: Q6H, PRN [place] 00 Nausea, # 15 tab, 0 Refill(s) Dicyclomine Yes 20 mg = 1 M [...] a 5-28 (Same as: l 09:27: Phenergan) Phenergan No Notes: Memori a 5-28 (Same as: l 09:27: Phenergan) Phenergan No Notes: Memori a 5-28 (Same as: l 09:27: Phenergan) Sodium 2019-0 No 1,000 mL, Memori a Chloride 5-28 1,000 l 0.9% 09:26: ml/hr, [place] (Bolus) IV 00 Infuse Over: 1 hr, Route: IV, 1,000, Drug form: INJ, ONCE, Priority: STAT, Dosing Weight 60.909 kg, Start date: 10/12/18 4:26:00 CDT, Stop date: 10/12/18 4:26:00 CDT Sodium 2019-0 No 1,000 mL, Memori a Chloride 5-28 1,000 l 0.9% 09:26: ml/hr, [place] (Bolus) IV 00 Infuse Over: 1 hr, Route: IV, 1,000, Drug form: INJ, ONCE, Priority: STAT, Dosing Weight 60.909 kg, Start date: 10/12/18 4:26:00 CDT, Stop date: 10/12/18 4:26:00 CDT Sodium 2019-0 No 1,000 mL, Memori a Chloride 5-28 1,000 l 0.9% 09:26: ml/hr, [place] (Bolus) IV 00 Infuse Over: 1 hr, Route: IV, 1,000, Drug form: INJ, ONCE, Priority: STAT, Dosing Weight 60.909 kg, Start date: 10/12/18 4:26:00 CDT, Stop date: 10/12/18 4:26:00 CDT Insulin 2019-0 No 10 unit, Memori a regular 5-28 Route: l 08:04: IVP, ONCE, Randal Dosing Weight 60.909, kg, Priority: STAT, Start date: 10/12/18 3:04:00 CDT, Stop date: 10/12/18 3:04:00 CDT Insulin 2019-0 No 10 unit, Memori a regular 5-28 Route: l 08:04: IVP, ONCE, [place] Dosing Weight 60.909, kg, Priority: STAT, Start date: 10/12/18 3:04:00 CDT, Stop date: 10/12/18 3:04:00 CDT Insulin 2019-0 No 10 unit, [facility] a regular 5-28 Route: l 08:04: IVP, ONCE, [place] 00 Dosing Weight 60.909, kg, Priority: STAT, Start date: 10/12/18 3:04:00 CDT, Stop date: 10/12/18 3:04:00 CDT Bentyl No Notes: [facility] 5-28 (Same as: l 07:31: Bentyl) [place] Bentyl No Notes: [facility] 5-28 (Same as: l 07:31: Bentyl) [place] Bentyl 0 No Notes: [facility] 5-28 (Same as: l 07:31: Bentyl) [place] Reglan No Notes: [facility] 5-28 (Same as: l 07:30: Reglan) [facility] Reglan No Notes: [facility] 5-28 (Same as: l 07:30: Reglan) [place] Reglan 0 No Notes: [facility] 5-28 (Same as: l 07:30: Reglan) [place] 00 Sodium 2018-0 No 1,000 mL, Memori a Chloride 5-28 Infuse l 0.9% 07:03: Over: 1 [facility] (Bolus) IV 00 hr, Route: IV, ONCE, Priority: STAT, Dosing Weight 60.909 kg, Start date: 10/12/18 2:03:00 CDT, Stop date: 10/12/18 2:03:00 CDT Sodium 2018-0 No 1,000 mL, Memori a Chloride 5-28 Infuse l 0.9% 07:03: Over: 1 [place] (Bolus) IV 00 hr, Route: IV, ONCE, Priority: STAT, Dosing Weight 60.909 kg, Start date: 10/12/18 2:03:00 CDT, Stop date: 10/12/18 2:03:00 CDT Sodium 2019-0 No 1,000 mL, Memori a Chloride 5-28 Infuse l 0.9% 07:03: Over: 1 [place] (Bolus) IV 00 hr, Route: IV, ONCE, Priority: STAT, Dosing Weight 60.909 kg, Start date: 10/12/18 2:03:00 CDT, Stop date: 10/12/18 2:03:00 CDT Acetaminoph Acetaminoph 2018-0 Yes JESSICA TAKE 1 [facility] en-Codeine en-Codeine 5-16 [facility] TABLET [facility] #3 300-30 #3 300-30 00:00: M.D. EVERY 4 TO ans MG Oral MG Oral 00 6 HOURS Tablet Tablet NEEDED FOR PAIN. Promethazin 2019-0 Yes 25 mg = 1 M emoria e 4-24 tab, PO, l Hydrochlori 22:36: Q4H, PRN He rmann de 25 MG 00 Nausea/Vom Oral Tablet iting, # 15 tab, 0 Refill(s), Pharmacy: [facility] #[id number] tramadol 2019-0 Yes 50 mg = 1 Pietro kelli hydrochlori 4-24 tab, PO, l de 50 MG 22:36: Q6H, PRN Perlita nn Oral Tablet 00 Pain, X 10 day, # 20 tab, 0 Refill(s) Promethazin 2019-0 Yes 25 mg = 1 M emoria e 4-24 tab, PO, l Hydrochlori 22:36: Q4H, PRN He rmann de 25 MG 00 Nausea/Vom Oral Tablet iting, # 15 tab, 0 Refill(s), Pharmacy: [facility] #[id number] tramadol 2019-0 Yes 50 mg = 1 Pietro kelli hydrochlori 4-24 tab, PO, l de 50 MG 22:36: Q6H, PRN Perlita nn Oral Tablet 00 Pain, X 10 day, # 20 tab, 0 Refill(s) Promethazin 2019-0 Yes 25 mg = 1 M emoria e 4-24 tab, PO, l Hydrochlori 22:36: Q4H, PRN He rmann de 25 MG 00 Nausea/Vom Oral Tablet iting, # 15 tab, 0 Refill(s), Pharmacy: [facility] #[id number] tramadol 2019- Yes 50 mg = 1 Pietro kelli [...] day, # 20 cap, 0 Refill(s) Oseltamivir 0 Yes 75 mg, PO, Memoria 75 MG Oral 3-20 Q12H, X 5 l Capsule 02:33: day, # 10 Perlita nn [Tamiflu] 00 cap, 0 Refill(s) Acetaminoph 0 Yes 1,000 mg = Memoria en 500 [...] [Phenergan] # 10 tab, 0 Refill(s) Fluconazole 2019-0 No 100 mg = 1 Memoria 100 MG Oral 3-20 tab, PO, l Tablet 02:33: Daily, X 1 Perlita nn [Diflucan] 00 day, # 1 tab, 0 Refill(s) Cephalexin 2019-0 Yes 500 mg = 1 M emoria 500 MG Oral 3-20 cap, PO, l Capsule 02:33: BID, X 10 Perlita nn [Keflex] 00 day, # 20 cap, 0 Refill(s) Oseltamivir 2019-0 Yes 75 mg, PO, Memoria 75 MG Oral 3-20 Q12H, X 5 l Capsule 02:33: day, # 10 Perlita nn [Tamiflu] 00 cap, 0 Refill(s) Acetaminoph 20190 Yes 1,000 mg = Memoria en 500 MG 3-20 2 tab, PO, l Oral Tablet 02:33: Q6H, PRN He rmann 00 Pain or fever, X 7 day, # 50 tab, 0 Refill(s) Promethazin 2019-0 Yes 12.5 mg = M emoria e 3-20 1 tab, PO, l Hydrochlori 02:33: Q6H, PRN He rmann de 12.5 MG 00 Nausea & Oral Tablet Vomiting, [Phenergan] # 10 tab, 0 Refill(s) Fluconazole 2019-0 No 100 mg = 1 Memoria 100 MG Oral 3-20 tab, PO, l Tablet 02:33: Daily, X 1 Perlita nn [Diflucan] day, # 1 tab, 0 Refill(s) Cephalexin 2019-0 Yes 500 mg = 1 M emoria [...] 2019-0 No 10 mg, Pietro kelli ne 3-19 Route: l 22:45: IVP, Drug [place] 00 form: INJ, ONCE, Dosing Weight 59.091, kg, Priority: STAT, Start date: 08/03/18 17:45:00 CDT, Stop date: 08/03/18 17:45:00 CDT Dexamethaso 2019-0 No 10 mg, Pietro kelli ne 08-03 Route: l 22:45: IVP, Drug [place] 00 form: INJ, ONCE, Dosing Weight 59.091, kg, Priority: STAT, Start date: 08/03/18 17:45:00 CDT, Stop date: 08/03/18 17:45:00 CDT Dexamethaso 2019-0 No 10 mg, Pietro kelli ne 08-03 Route: l 22:45: IVP, Drug [place] 00 form: INJ, ONCE, Dosing Weight 59.091, kg, Priority: STAT, Start date: 08/03/18 17:45:00 CDT, Stop date: 08/03/18 17:45:00 CDT Albuterol 2019-0 No 3 ml, Memoria 0.833 MG/ML 08-03 Route: l :44: NEB, Drug Randal Ipratropium 00 Form: Winfred SOLN, 0.167 MG/ML Dosing Inhalant Weight Solution 59.091, [DuoNeb] kg, ONCE, STAT, Start date: 08/03/18 17:44:00 CDT, Stop date: 08/03/18 17:44:00 CDT Albuterol 2019-0 No 3 ml, Memoria 0.833 MG/ML 08-03 Route: l 22:44: NEB, Drug [place] Ipratropium 00 Form: Winfred SOLN, 0.167 MG/ML Dosing Inhalant Weight Solution 59.091, [DuoNeb] kg, ONCE, STAT, Start date: 08/03/18 17:44:00 CDT, Stop date: 08/03/18 17:44:00 CDT Albuterol 2019-0 No 3 ml, Memoria 0.833 MG/ML 08-03 Route: l 22:44: NEB, Drug [place] Ipratropium 00 Form: Winfred SOLN, 0.167 MG/ML Dosing Inhalant Weight Solution 59.091, [DuoNeb] kg, ONCE, STAT, Start date: 08/03/18 17:44:00 CDT, Stop date: 08/03/18 17:44:00 CDT Acetaminoph 2019-0 No 1,000 mg, M emoria en 08-03 Route: PO, l 22:32: Drug form: Randal 00 TAB, ONCE, Dosing Weight 59.091, kg, Priority: STAT, Start date: 08/03/18 17:32:00 CDT, Stop date: 08/03/18 17:32:00 CDT Acetaminoph 2019-0 No 1,000 mg, M emoria en 08-03 Route: PO, l 22:32: Drug form: [place] 00 TAB, ONCE, Dosing Weight 59.091, kg, Priority: STAT, Start date: 08/03/18 17:32:00 CDT, Stop date: 08/03/18 17:32:00 CDT Acetaminoph 2019-0 No 1,000 mg, M emoria en 08-03 Route: PO, l 22:32: Drug form: [place] 00 TAB, ONCE, Dosing Weight 59.091, kg, Priority: STAT, Start date: 08/03/18 17:32:00 CDT, Stop date: 08/03/18 17:32:00 CDT Rocephin 2019-0 No 1 gm, Memoria 08-03 Route: l 22:31: IVPB, Drug form: PDR/INJ, ONCE, Dosing Weight 59.091, kg, Priority: STAT, Start date: 08/03/18 17:31:00 CDT, Stop date: 08/03/18 17:31:00 CDT, ABX Indication : Urinary Tract Infection Morphine 2019-0 No 4 mg, Memoria 08-03 Route: l 22:31: IVP, ONCE, Dosing Weight 59.091, kg, Priority: STAT, Start date: 08/03/18 17:31:00 CDT, Stop date: 08/03/18 17:31:00 CDT Rocephin 2019-0 No 1 gm, Memoria 08-03 Route: l 22:31: IVPB, Drug form: PDR/INJ, ONCE, Dosing Weight 59.091, kg, Priority: STAT, Start date: 08/03/18 17:31:00 CDT, Stop date: 08/03/18 17:31:00 CDT, ABX Indication : Urinary Tract Infection Morphine 2019-0 No 4 mg, Memoria 3- Route: l 22:31: IVP, ONCE, Dosing Weight 59.091, kg, Priority: STAT, Start date: 08/03/18 17:31:00 CDT, Stop date: 08/03/18 17:31:00 CDT Rocephin 2019-0 No 1 gm, Memoria 3 Route: l 22:31: IVPB, Drug form: PDR/INJ, ONCE, Dosing Weight 59.091, kg, Priority: STAT, Start date: 08/03/18 17:31:00 CDT, Stop date: 08/03/18 17:31:00 CDT, ABX Indication : Urinary Tract Infection Morphine 2019-0 No 4 mg, Memoria - Route: l 22:31: IVP, ONCE, Dosing Weight 59.091, kg, Priority: STAT, Start date: 08/03/18 17:31:00 CDT, Stop date: 08/03/18 17:31:00 CDT Phenergan 2019-0 No 12.5 mg, Pietro kelli 3-19 50 mL, l 18:02: Route: [place] 00 IVPB, Drug form: SOLN, ONCE, Dosing Weight 59.091, kg, Priority: STAT, Start date: 08/03/18 13:02:00 CDT, Stop date: 08/03/18 13:02:00 CDT NS (Bolus) 2019-0 No 1,000 mL, Me moria IV - 1000 l 18:02: ml/hr, Infuse Over: 1 hr, Route: IV, 1,000, Drug form: INJ, ONCE, Priority: STAT, Dosing Weight 59.091 kg, Start date: 08/03/18 13:02:00 CDT, Stop date: 08/03/18 13:02:00 CDT Phenergan 2019-0 No 12.5 mg, Pietro kelli 3-19 50 mL, l 18:02: Route: Randal IVPB, Drug form: SOLN, ONCE, Dosing Weight 59.091, kg, Priority: STAT, Start date: 08/03/18 13:02:00 CDT, Stop date: 08/03/18 13:02:00 CDT NS (Bolus) 2019-0 No 1,000 mL, Me moria IV 3-19 1000 l 18:02: ml/hr, Randal 00 Infuse Over: 1 hr, Route: IV, 1,000, Drug form: INJ, ONCE, Priority: STAT, Dosing Weight 59.091 kg, Start date: 08/03/18 13:02:00 CDT, Stop date: 08/03/18 13:02:00 CDT Phenergan 2019-0 No 12.5 mg, Pietro kleli 3-19 50 mL, l 18:02: Route: [place] 00 IVPB, Drug form: SOLN, ONCE, Dosing Weight 59.091, kg, Priority: STAT, Start date: 08/03/18 13:02:00 CDT, Stop date: 08/03/18 13:02:00 CDT NS (Bolus) 2019-0 No 1,000 mL, Me moria IV 3-19 1000 l 18:02: ml/hr, Randal 00 Infuse Over: 1 hr, Route: IV, 1,000, Drug form: INJ, ONCE, Priority: STAT, Dosing Weight 59.091 kg, Start date: 08/03/18 13:02:00 CDT, Stop date: 08/03/18 13:02:00 CDT NS (Bolus) 2019-0 No 1,000 mL, Me moria IV 3-19 1000 l 18:01: ml/hr, [place] 00 Infuse Over: 1 hr, Route: IV, 1,000, Drug form: INJ, ONCE, Priority: STAT, Dosing Weight 63.636 kg, Start date: 08/03/18 13:01:00 CDT, Stop date: 08/03/18 13:01:00 CDT NS (Bolus) 2019-0 No 1,000 mL, Me moria IV 3-19 1000 l 18:01: ml/hr, [place] 00 Infuse Over: 1 hr, Route: IV, 1,000, Drug form: INJ, ONCE, Priority: STAT, Dosing Weight 63.636 kg, Start date: 08/03/18 13:01:00 CDT, Stop date: 08/03/18 13:01:00 CDT NS (Bolus) No 1,000 mL, Me moria IV 08-03 1000 l 18:01: ml/hr, [place] 00 Infuse Over: 1 hr, Route: IV, 1,000, Drug form: INJ, ONCE, Priority: STAT, Dosing Weight 63.636 kg, Start date: 08/03/18 13:01:00 CDT, Stop date: 08/03/18 13:01:00 CDT Fluconazole 2018- Yes 150 mg = 1 Memoria 150 MG Oral 3-14 tab, PO, l Tablet 18:36: ONCE, # 1 Booker n [Diflucan] 00 tab, 0 Refill(s), Pharmacy: [facility] #[id number] Fluconazole Yes 150 mg = 1 Memoria 150 MG Oral 3-14 tab, PO, l Tablet 18:36: ONCE, # 1 Booker n [Diflucan] 00 tab, 0 Refill(s), Pharmacy: [facility] #[id number] Fluconazole Yes 150 mg = 1 Memoria 150 MG Oral 3-14 tab, PO, l Tablet 18:36: ONCE, # 1 Booker n [Diflucan] 00 tab, 0 Refill(s), Pharmacy: [facility] #[id number] tramadol Yes 50 mg = 1 Pietro kelli hydrochlori 3-04 tab, PO, l de 50 MG 20:35: Q6H, PRN Perlita nn Oral Tablet 00 Pain, X 10 day, # 20 tab, 0 Refill(s) tramadol Yes 50 mg = 1 Pietro kelli hydrochlori 3-04 tab, PO, l de 50 MG 20:35: Q6H, PRN Perlita nn Oral Tablet 00 Pain, X 10 day, # 20 tab, 0 Refill(s) tramadol 2018-0 Yes 50 mg = 1 Pietro kelli hydrochlori 3-04 tab, PO, l de 50 MG 20:35: Q6H, PRN Perlita nn Oral Tablet 00 Pain, X 10 day, # 20 tab, 0 Refill(s) Reglan No Notes: Memoria 07-16 (Same as: l 22:49: Reglan) [place] 00 Reglan No Notes: Memoria 3-01 (Same as: l 22:49: Reglan) [place] 00 Reglan No Notes: Memoria 3-01 (Same as: l 22:49: Reglan) [place] 00 Sodium No 1,000 mL, Memori a Chloride 3-01 1000 l 0.9% 22:48: ml/hr, [place] (Bolus) IV 00 Infuse Over: 1 hr, Route: IV, 1,000, Drug form: INJ, ONCE, Priority: STAT, Dosing Weight 60 kg, Start date: 07/16/18 16:48:00 UTILITY AGENT, Stop date: 07/16/18 16:48:00 UTILITY AGENT Saline No Notes: Memoria Flush 0.9% 3-01 (Same as: l 22:48: BD Randal Posiflush) Sodium No 1,000 mL, Memori a Chloride 3-01 1000 l 0.9% 22:48: ml/hr, Randal (Bolus) IV 00 Infuse Over: 1 hr, Route: IV, 1,000, Drug form: INJ, ONCE, Priority: STAT, Dosing Weight 60 kg, Start date: 07/16/18 16:48:00 UTILITY AGENT, Stop date: 07/16/18 16:48:00 UTILITY AGENT Saline No Notes: Memoria Flush 0.9% 3-01 (Same as: l 22:48: BD Randal Posiflush) Sodium No 1,000 mL, Memori a Chloride 3-01 1000 l 0.9% 22:48: ml/hr, [place] (Bolus) IV 00 Infuse Over: 1 hr, Route: IV, 1,000, Drug form: INJ, ONCE, Priority: STAT, Dosing Weight 60 kg, Start date: 07/16/18 16:48:00 UTILITY AGENT, Stop date: 07/16/18 16:48:00 UTILITY AGENT Saline No Notes: Memoria Flush 0.9% 3-01 (Same as: l 22:48: BD Randal 00 Posiflush) Metronidazo Yes 500 mg = 1 Memoria le 500 MG 2-25 tab, PO, l Oral Tablet 17:22: BID, X 7 He rmann [Flagyl] 00 day, # 14 tab, 0 Refill(s), [id number] Metronidazo Yes 500 mg = 1 Memoria le 500 MG 2-25 tab, PO, l Oral Tablet 17:22: BID, X 7 He rmann [Flagyl] 00 day, # 14 tab, 0 Refill(s), [id number] Metronidazo Yes 500 mg = 1 Memoria le 500 MG 2-25 tab, PO, l Oral Tablet 17:22: BID, X 7 He rmann [Flagyl] 00 day, # 14 tab, 0 Refill(s), [id number] Fluconazole Yes See Memori a 150 MG Oral 2-22 Instructio l Tablet 19:24: ns, 1 tab Booker n [Diflucan] 00 PO ONCE no and repeat in 72 hours, # 2 tab, 0 Refill(s), [id number] Fluconazole Yes See Memori a 150 MG Oral 2-22 Instructio l Tablet 19:24: ns, 1 tab Booker n [Diflucan] 00 PO ONCE no and repeat in 72 hours, # 2 tab, 0 Refill(s), [id number] Fluconazole Yes See Memori a 150 MG Oral 2-22 Instructio l Tablet 19:24: ns, 1 tab Booker n [Diflucan] 00 PO ONCE no and repeat in 72 hours, # 2 tab, 0 Refill(s), [id number] Lidocaine Yes See Memoria Hydrochlori 2-22 Instructio l de 0.02 19:18: ns, small Perlita nn MG/MG 00 amount to Topical Gel affected area for pain at periurethr al site., # 15 mL, 0 Refill(s), [id number] Lidocaine Yes See Memoria Hydrochlori 2-22 Instructio l de 0.02 19:18: ns, small Perlita nn MG/MG 00 amount to Topical Gel affected area for pain at periurethr al site., # 15 mL, 0 Refill(s), [id number] Lidocaine Yes See Memoria Hydrochlori 2-22 Instructio l de 0.02 19:18: ns, small Perlita nn MG/MG 00 amount to Topical Gel affected area for pain at periurethr al site., # 15 mL, 0 Refill(s), Pharmacy: [email or web address] #[id number] Acetaminoph No 1 tab, PO, Memoria en 300 MG / 17 Q6H, PRN l Codeine 17:37: breakthrou Herm reynaldo Phosphate 00 gh pain, X 30 MG Oral 3 day, # Tablet 12 tab, 0 [Tylenol Refill(s) with Codeine #3] ibuprofen No 600 mg = 1 Me moria 600 mg oral -17 tab, PO, l tablet 17:37: Q6H, PRN Randal 00 Pain or Fever, Take with food, X 10 day, # 40 tab, 0 Refill(s) Acetaminoph No 1 tab, PO, Memoria en 300 MG / 06-03 Q6H, PRN l Codeine 17:37: breakthrou Herm reynaldo Phosphate 00 gh pain, X 30 MG Oral 3 day, # Tablet 12 tab, 0 [Tylenol Refill(s) with Codeine #3] ibuprofen No 600 mg = 1 Me moria 600 mg oral -17 tab, PO, l tablet 17:37: Q6H, PRN [place] 00 Pain or Fever, Take with food, X 10 day, # 40 tab, 0 Refill(s) Acetaminoph No 1 tab, PO, Memoria en 300 MG / 17 Q6H, PRN l Codeine 17:37: breakthrou Herm reynaldo Phosphate 00 gh pain, X 30 MG Oral 3 day, # Tablet 12 tab, 0 [Tylenol Refill(s) with Codeine #3] ibuprofen No 600 mg = 1 Me moria 600 mg oral -17 tab, PO, l tablet 17:37: Q6H, PRN [place] 00 Pain or Fever, Take with food, X 10 day, # 40 tab, 0 Refill(s) Omnipaque No Notes: Memori a 300 06-03 (Same l injectable 15:44: as:Omnipaq H ermann solution 00 ue 300). WASTE: F/P - Black; E - Municipal Trash Bin NS (Bolus) No 500 mL, Pietro kelli IV 1-17 500 ml/hr, l 15:44: Infuse [place] 00 Over: 1 hr, Route: IV, 500, Drug form: INJ, ONCE, Priority: STAT, Dosing Weight 57.727 kg, Start date: 06/03/18 9:44:00 UTILITY AGENT, Stop date: 06/03/18 9:44:00 UTILITY AGENT Omnipaque 2019-0 No Notes: Memori a 300 -17 (Same l injectable 15:44: as:Omnipaq H ermann solution 00 ue 300). WASTE: F/P - Black; E - Municipal Trash Bin NS (Bolus) 0 No 500 mL, Pietro kelli IV 1-17 500 ml/hr, l 15:44: Infuse [place] 00 Over: 1 hr, Route: IV, 500, Drug form: INJ, ONCE, Priority: STAT, Dosing Weight 57.727 kg, Start date: 06/03/18 9:44:00 UTILITY AGENT, Stop date: 06/03/18 9:44:00 UTILITY AGENT Omnipaque 2018-0 No Notes: Memori a 300 06-03 (Same l injectable 15:44: as:Omnipaq H ermann solution 00 ue 300). WASTE: F/P - Black; E - Municipal Trash Bin NS (Bolus) 0 No 500 mL, Pietro kelli IV 1-17 500 ml/hr, l 15:44: Infuse [place] 00 Over: 1 hr, Route: IV, 500, Drug form: INJ, ONCE, Priority: STAT, Dosing Weight 57.727 kg, Start date: 06/03/18 9:44:00 UTILITY AGENT, Stop date: 06/03/18 9:44:00 UTILITY AGENT ketOROLAC 2018-0 No 30 mg, Memori a 30 mg/mL 06-03 Route: l injectable 14:33: IVP, Drug He rmann solution 00 form: INJ, ONCE, Dosing Weight 57.727, kg, Priority: STAT, Start date: 06/03/18 8:33:00 UTILITY AGENT, Stop date: 06/03/18 8:33:00 UTILITY AGENT ketOROLAC 2018-0 No 30 mg, Memori a 30 mg/mL 06-03 Route: l injectable 14:33: IVP, Drug He rmann solution 00 form: INJ, ONCE, Dosing Weight 57.727, kg, Priority: STAT, Start date: 06/03/18 8:33:00 UTILITY AGENT, Stop date: 06/03/18 8:33:00 UTILITY AGENT ketOROLAC 2019-0 No 30 mg, Memori a 30 mg/mL 06-03 Route: l injectable 14:33: IVP, Drug He rmann solution 00 form: INJ, ONCE, Dosing Weight 57.727, kg, Priority: STAT, Start date: 06/03/18 8:33:00 UTILITY AGENT, Stop date: 06/03/18 8:33:00 UTILITY AGENT Phenergan 2019-0 No 12.5 mg, Pietro kelli 17 Route: l 14:30: IVPB, [place] 00 ONCE, Dosing Weight 57.727, kg, Priority: STAT, Start date: 06/03/18 8:30:00 UTILITY AGENT, Stop date: 06/03/18 8:30:00 UTILITY AGENT Morphine 2019-0 No 4 mg, Memoria 06-03 Route: l 14:30: IVP, ONCE, [place] Dosing Weight 57.727, kg, Priority: STAT, Start date: 06/03/18 8:30:00 UTILITY AGENT, Stop date: 06/03/18 8:30:00 UTILITY AGENT Saline 2018-0 No Notes: Memoria Flush 0.9% 1-17 (Same as: l 14:30: BD [place] 00 Posiflush) Phenergan 2019-0 No 12.5 mg, Pietro kelli 1-17 Route: l 14:30: IVPB, Randal 00 ONCE, Dosing Weight 57.727, kg, Priority: STAT, Start date: 06/03/18 8:30:00 UTILITY AGENT, Stop date: 06/03/18 8:30:00 UTILITY AGENT Morphine 2019-0 No 4 mg, Memoria -17 Route: l 14:30: IVP, ONCE, [place] Dosing Weight 57.727, kg, Priority: STAT, Start date: 06/03/18 8:30:00 UTILITY AGENT, Stop date: 06/03/18 8:30:00 UTILITY AGENT Saline 2019-0 No Notes: Memoria Flush 0.9% 1-17 (Same as: l 14:30: BD Randal 00 Posiflush) Phenergan 2019-0 No 12.5 mg, Pietro kelli 1-17 Route: l 14:30: IVPB, ONCE, Dosing Weight 57.727, kg, Priority: STAT, Start date: 06/03/18 8:30:00 UTILITY AGENT, Stop date: 06/03/18 8:30:00 UTILITY AGENT Morphine 2019-0 No 4 mg, Memoria 06-03 Route: l 14:30: IVP, ONCE, Dosing Weight 57.727, kg, Priority: STAT, Start date: 06/03/18 8:30:00 UTILITY AGENT, Stop date: 06/03/18 8:30:00 UTILITY AGENT Saline 2019-0 No Notes: Memoria Flush 0.9% 06-03 (Same as: l 14:30: BD Posiflush) Rocephin 2019-0 No 1,000 mg, Pietro kelli 05-20 Route: IM, l 19:53: ONCE, Dosing Weight 60.682, kg, Start date: 05/20/18 13:53:00 UTILITY AGENT, Stop date: 05/20/18 13:53:00 UTILITY AGENT Rocephin 2019-0 No 1,000 mg, Pietro kelli 05-20 Route: IM, l 19:53: ONCE, Dosing Weight 60.682, kg, Start date: 05/20/18 13:53:00 UTILITY AGENT, Stop date: 05/20/18 13:53:00 UTILITY AGENT Rocephin 2019-0 No 1,000 mg, Pietro kelli 05-20 Route: IM, l 19:53: ONCE, Dosing Weight 60.682, kg, Start date: 05/20/18 13:53:00 UTILITY AGENT, Stop date: 05/20/18 13:53:00 UTILITY AGENT azithromyci 2019-0 No 1,000 mg = Memoria n 500 mg 1-03 2 tab, PO, l oral tablet 19:45: ONCE, # 2 H ermann 00 tab, 0 Refill(s), Pharmacy: [facility] #[id number] azithromyci 2019-0 No 1,000 mg = Memoria n 500 mg 1-03 2 tab, PO, l oral tablet 19:45: ONCE, # 2 H ermann 00 tab, 0 Refill(s), Pharmacy: [facility] #[id number] azithromyci 2019-0 No 1,000 mg = Memoria n 500 mg 05-20 2 tab, PO, l oral tablet 19:45: ONCE, # 2 H erm 00 tab, 0 Refill(s), Pharmacy: [facility] #[id number] Insulin 2017-05 No Notes: Memoria regular -16 (Same as: l 10:28: Humulin R) Randal 00 WASTE: F/P - Black; E - Municipal Trash Bin (Do not shake) Insulin 2017-05 No Notes: Memoria regular 16 (Same as: l 10:28: Humulin R) Randal 00 WASTE: F/P - Black; E - Municipal Trash Bin (Do not shake) Insulin 2017-05 No Notes: Memoria regular 06-02 (Same as: l 10:28: Humulin R) WASTE: F/P - Black; E - Municipal Trash Bin (Do not shake) Phenergan 2017-05 No Notes: Memori a 1-16 (Same as: l 10:00: Phenergan) Randal 00 Phenergan 2017-05 No Notes: Memori a 1-16 (Same as: l 10:00: Phenergan) [place] 00 Phenergan 2017-05 No Notes: Memori a 1-16 (Same as: l 10:00: Phenergan) [place] 00 Reglan 2017-05 No Notes: Memoria -16 (Same as: l 09:59: Reglan) [place] 00 Reglan 2017-05 No Notes: Memoria -16 (Same as: l 09:59: Reglan) Randal 00 Reglan 2017-05 No Notes: Memoria -16 (Same as: l 09:59: Reglan) Dextrose 2017-05 No 25 gm, 50 Pierto kelli 50% Syringe 1-16 mL, Route: l 09:27: IVP, Drug Form: INJ, Dosing Weight 54.545, kg, PRN, PRN Blood Glucose Results, Start date: 04/02/18 3:27:00 UTILITY AGENT, Duration: 30 day, Stop date: 05/02/18 3:26:00 UTILITY AGENT Glucagon 2017-05 No 1 mg, Memoria 06-02 Route: IM, l 09:27: Drug form: Randal 00 PDR/INJ, PRN, Dosing Weight 54.545, kg, PRN Blood Glucose Results, Start date: 04/02/18 3:27:00 UTILITY AGENT, Duration: 30 day, Stop date: 05/02/18 3:26:00 UTILITY AGENT Ondansetron 2017-05 No Notes: Pietro kelli 1-16 (Same as: l 09:27: Zofran) Randal 00 MEDICATION WASTE Product Size: 4 mg Product Wasted: ___ mg Sodium 2017-05 No 2,000 mL, Memori a Chloride 1-16 1999 l 0.9% 09:27: ml/hr, Randal (Bolus) IV 00 Infuse Over: 1 hr, Route: IV, 2,000, Drug form: INJ, ONCE, Priority: STAT, Dosing Weight 54.545 kg, Start date: 04/02/18 3:27:00 UTILITY AGENT, Stop date: 04/02/18 3:27:00 UTILITY AGENT Saline 2017-05 No Notes: Memoria Flush 0.9% -16 (Same as: l 09:27: BD [place] 00 Posiflush) Dextrose 2017-05 No 25 gm, 50 Pietro kelli 50% Syringe 1-16 mL, Route: l 09:27: IVP, Drug Randal 00 Form: INJ, Dosing Weight 54.545, kg, PRN, PRN Blood Glucose Results, Start date: 04/02/18 3:27:00 UTILITY AGENT, Duration: 30 day, Stop date: 05/02/18 3:26:00 UTILITY AGENT Glucagon 2017-05 No 1 mg, Memoria 1-16 Route: IM, l 09:27: Drug form: [place] 00 PDR/INJ, PRN, Dosing Weight 54.545, kg, PRN Blood Glucose Results, Start date: 04/02/18 3:27:00 UTILITY AGENT, Duration: 30 day, Stop date: 05/02/18 3:26:00 UTILITY AGENT Ondansetron 2017-05 No Notes: Pietro kelli 1-16 (Same as: l 09:27: Zofran) Randal MEDICATION WASTE Product Size: 4 mg Product Wasted: ___ mg Sodium 2017-05 No 2,000 mL, Memori a Chloride 1-16 1999 l 0.9% 09:27: ml/hr, Randal (Bolus) IV 00 Infuse Over: 1 hr, Route: IV, 2,000, Drug form: INJ, ONCE, Priority: STAT, Dosing Weight 54.545 kg, Start date: 04/02/18 3:27:00 UTILITY AGENT, Stop date: 04/02/18 3:27:00 UTILITY AGENT Saline 2017-05 No Notes: Memoria Flush 0.9% 1-16 (Same as: l 09:27: BD Randal Posiflush) Dextrose 2017-05 No 25 gm, 50 Pietro kelli 50% Syringe 1-16 mL, Route: l 09:27: IVP, Drug Randal 00 Form: INJ, Dosing Weight 54.545, kg, PRN, PRN Blood Glucose Results, Start date: 04/02/18 3:27:00 UTILITY AGENT, Duration: 30 day, Stop date: 05/02/18 3:26:00 UTILITY AGENT Glucagon 2017-05 No 1 mg, Memoria 1-16 Route: IM, l 09:27: Drug form: Randal 00 PDR/INJ, PRN, Dosing Weight 54.545, kg, PRN Blood Glucose Results, Start date: 04/02/18 3:27:00 UTILITY AGENT, Duration: 30 day, Stop date: 05/02/18 3:26:00 UTILITY AGENT Ondansetron 2017-05 No Notes: Pietro kelli 1-16 (Same as: l 09:27: Zofran) [place] MEDICATION WASTE Product Size: 4 mg Product Wasted: ___ mg Sodium 2017-05 No 2,000 mL, Memori a Chloride 1-16 2000 l 0.9% 09:27: ml/hr, Randal (Bolus) IV 00 Infuse Over: 1 hr, Route: IV, 2,000, Drug form: INJ, ONCE, Priority: STAT, Dosing Weight 54.545 kg, Start date: 04/02/18 3:27:00 UTILITY AGENT, Stop date: 04/02/18 3:27:00 UTILITY AGENT Saline 2017-05 No Notes: Memoria Flush 0.9% 1-16 (Same as: l 09:27: BD [place] 00 Posiflush) d50 syringe 2017-05 No 50 mL, Pietro kelli 0-16 Route: l 09:20: IVP, [place] 00 Dosing Weight 61.364, kg, ONCE, Start date: 03/02/18 4:20:00 CDT, Stop date: 03/02/18 4:20:00 CDT d50 syringe 2017-05 No 50 mL, Pietro kelli 0-16 Route: l 09:20: IVP, [place] 00 Dosing Weight 61.364, kg, ONCE, Start date: 03/02/18 4:20:00 CDT, Stop date: 03/02/18 4:20:00 CDT d50 syringe 2017-05 No 50 mL, Pietro kelli 0-16 Route: l 09:20: IVP, Randal 00 Dosing Weight 61.364, kg, ONCE, Start date: 03/02/18 4:20:00 CDT, Stop date: 03/02/18 4:20:00 CDT Saline 2017-05 No Notes: Memoria Flush 0.9% 0-16 (Same as: l 09:06: BD Posiflush) Saline 2017-05 No Notes: Memoria Flush 0.9% 0-16 (Same as: l 09:06: BD [place] 00 Posiflush) Saline 2017-05 No Notes: Memoria Flush 0.9% 0-16 (Same as: l 09:06: BD Randal 00 Posiflush) insulin No Notes: Memoria glargine 9-20 (Same as: l 02:00: Lantus) Do not hold insulin without contacting prescriber WASTE: F/P - Black; E - Municipal Trash Bin "single patient use only" Levemir No 20 unit, Memori a 9-20 Route: l 02:00: SUB-Q, Drug form: SOLN, Bedtime, Dosing Weight 60.909, kg, Start date: 02/03/18 21:00:00 CDT, Duration: 30 day, Stop date: 03/04/18 21:00:00 CDT insulin No Notes: Memoria glargine 9-20 (Same as: l 02:00: Lantus) Do not hold insulin without contacting prescriber WASTE: F/P - Black; E - Municipal Trash Bin "single patient use only" Levemir No 20 unit, Memori a 9-20 Route: l 02:00: SUB-Q, Randal 00 Drug form: SOLN, Bedtime, Dosing Weight 60.909, kg, Start date: 02/03/18 21:00:00 CDT, Duration: 30 day, Stop date: 03/04/18 21:00:00 CDT insulin 2018-0 No Notes: Memoria glargine 02-04 (Same as: l 02:00: Lantus) Do not hold insulin without contacting prescriber WASTE: F/P - Black; E - Municipal Trash Bin "single patient use only" Levemir 2018-0 No 20 unit, Memori a - Route: l 02:00: SUB-Q, Drug form: SOLN, Bedtime, Dosing Weight 60.909, kg, Start date: 02/03/18 21:00:00 CDT, Duration: 30 day, Stop date: 03/04/18 21:00:00 CDT insulin 2018-0 No 20 unit, Memori a detemir 02-03 Route: l 22:00: SUB-Q, Drug form: SOLN, BID, Dosing Weight 60.909, kg, Start date: 02/03/18 17:00:00 CDT, Duration: 30 day, Stop date: 03/05/18 9:00:00 CDT Bentyl 2018-0 No Notes: Memoria 02-03 (Same as: l 22:00: Bentyl) insulin 2017-0 No 20 unit, Memori a detemir 02-03 Route: l 22:00: SUB-Q, Drug form: SOLN, BID, Dosing Weight 60.909, kg, Start date: 02/03/18 17:00:00 CDT, Duration: 30 day, Stop date: 03/05/18 9:00:00 CDT Bentyl 2017-0 No Notes: Memoria 02-03 (Same as: l 22:00: Bentyl) insulin 2018-0 No 20 unit, Memori a detemir 02-03 Route: l 22:00: SUB-Q, Randal 00 Drug form: SOLN, BID, Dosing Weight 60.909, kg, Start date: 02/03/18 17:00:00 CDT, Duration: 30 day, Stop date: 03/05/18 9:00:00 CDT Bentyl 2017-0 No Notes: Memoria - (Same as: l 22:00: Bentyl) Randal 00 Insulin 2017-0 No Notes: Memoria Lispro 02-03 (Same as: l 21:06: Humalog ) Randal 00 Roll in palms of hands gently; Do not shake `vigorousl y. "Single Patient Use Only " WASTE: F/P - Black; E - Municipal Trash Bin Stable for 28 days at room temperatur e. Expires in days from ____Date Glucagon 2017-0 No 1 mg, Memoria 02-03 Route: IM, l 21:06: Drug form: Randal 00 PDR/INJ, PRN, Dosing Weight 60.909, kg, PRN Blood Glucose Results, Start date: 02/03/18 16:06:00 CDT, Duration: 30 day, Stop date: 03/05/18 16:05:00 CDT Dextrose 2017-0 No 12.5 gm, Memor ia 50% Syringe 02-03 25 mL, l 21:06: Route: Randal IVP, Drug Form: INJ, Dosing Weight 60.909, kg, PRN, PRN Blood Glucose Results, Start date: 02/03/18 16:06:00 CDT, Duration: 30 day, Stop date: 03/05/18 16:05:00 CDT Insulin 2017-0 No Notes: Memoria Lispro 02-03 (Same as: l 21:06: Humalog ) Roll in palms of hands gently; Do not shake `vigorousl y. "Single Patient Use Only " WASTE: F/P - Black; E - Municipal Trash Bin Stable for 28 days at room temperatur e. Expires in days from ____Date Glucagon 2017-0 No 1 mg, Memoria 02-03 Route: IM, l 21:06: Drug form: Randal 00 PDR/INJ, PRN, Dosing Weight 60.909, kg, PRN Blood Glucose Results, Start date: 02/03/18 16:06:00 CDT, Duration: 30 day, Stop date: 03/05/18 16:05:00 CDT Dextrose 2017-0 No 12.5 gm, Memor ia 50% Syringe 02-03 25 mL, l 21:06: Route: Randal 00 IVP, Drug Form: INJ, Dosing Weight 60.909, kg, PRN, PRN Blood Glucose Results, Start date: 02/03/18 16:06:00 CDT, Duration: 30 day, Stop date: 03/05/18 16:05:00 CDT Insulin 2017-0 No Notes: Memoria Lispro 02-03 (Same as: l 21:06: Humalog ) Roll in palms of hands gently; Do not shake `vigorousl y. "Single Patient Use Only " WASTE: F/P - Black; E - Municipal Trash Bin Stable for 28 days at room temperatur e. Expires in days from ____Date Glucagon 2017-0 No 1 mg, Memoria 02-03 Route: IM, l 21:06: Drug form: PDR/INJ, PRN, Dosing Weight 60.909, kg, PRN Blood Glucose Results, Start date: 02/03/18 16:06:00 CDT, Duration: 30 day, Stop date: 03/05/18 16:05:00 CDT Dextrose 2017-0 No 12.5 gm, Memor ia 50% Syringe 02-03 25 mL, l 21:06: Route: [place] 00 IVP, Drug Form: INJ, Dosing Weight 60.909, kg, PRN, PRN Blood Glucose Results, Start date: 02/03/18 16:06:00 CDT, Duration: 30 day, Stop date: 03/05/18 16:05:00 CDT Promethazin No Notes: Pietro kelli e 02-03 (Same as: l 21:03: Phenergan) Promethazin No Notes: Pietro kelli e 02-03 (Same as: l 21:03: Phenergan) Promethazin No Notes: Pietro kelli e 02-03 (Same as: l 21:03: Phenergan) Morphine 2018-0 No Notes: Memoria 9- (Same l 20:58: as:MORPhin Randal 00 e Sulfate) NS 1,000 mL No 1,000 mL, M emoria 02-03 Rate: 150 l 20:58: ml/hr, [place] 00 Infuse over: 6.7 hr, Route: IV, Dosing Weight 60.909 kg, Total Volume: 1,000, Start date: 02/03/18 15:58:00 CDT, Duration: 30 day, Stop date: 03/05/18 15:57:00 CDT, 1.67, m2 Morphine No Notes: Memoria - (Same l 20:58: as:MORPhin Randal 00 e Sulfate) NS 1,000 mL No 1,000 mL, M emoria 02-03 Rate: 150 l 20:58: ml/hr, Randal 00 Infuse over: 6.7 hr, Route: IV, Dosing Weight 60.909 kg, Total Volume: 1,000, Start date: 02/03/18 15:58:00 CDT, Duration: 30 day, Stop date: 03/05/18 15:57:00 CDT, 1.67, m2 Morphine No Notes: Memoria 02-03 (Same l 20:58: as:MORPhin [place] 00 e Sulfate) NS 1,000 mL No 1,000 mL, M emoria 02-03 Rate: 150 l 20:58: ml/hr, [place] 00 Infuse over: 6.7 hr, Route: IV, [...] mEq potassium Infuse over 4 hours Magnesium 2017-0 No Notes: Memori a Sulfate 02-03 WASTE: F/P l 20:56: - Sink; E Randal 00 - Municipal Trash Bin Dextrose 2017-0 No 25 mL, Memoria 50% Syringe 02-03 Route: l 20:56: IVP, Randal Dosing Weight 60.909, kg, PRN, PRN Blood Glucose Results, Start date: 02/03/18 15:56:00 CDT, Duration: 30 day, Stop date: 03/05/18 15:55:00 CDT Glucagon 0 No 1 mg, Memoria 02-03 Route: IM, l 20:56: PRN, Randal Dosing Weight 60.909, kg, PRN Blood Glucose Results, Start date: 02/03/18 15:56:00 CDT, Duration: 30 day, Stop date: 03/05/18 15:55:00 CDT Insulin 2017-0 No 99 mL, Memoria (regular) 02-03 Rate: l Titrate IV 20:56: Titrate, Her maurer additive 00 Dosing 100 unit + Weight Sodium 60.909, Chloride kg, Route: 0.9% IV, Total (titrate) Volume: 99 mL 99, Priority: Routine, Start Date: 02/03/18 15:56:00 CDT, Duration: 30 day, Stop date: 03/05/18 15:55:00 CDT, Replace Every: 24 hr Sodium 2017-0 No 1,000 mL, Memori a Chloride 02-03 Rate: 250 l 0.9% IV 20:56: ml/hr, [place] 1000 mL 00 Infuse over: 4 hr, Route: IV, Dosing Weight 60.909 kg, Total Volume: 1,000, When Finger stick blood glucose values remain ABOVE 250 mg/dL administer until BG is less than 250 mg/dL., Start date: 02/03/18 15:56:00 CDT, Durati... D5NS 1000 0 No 1,000 mL, Mem oria mL 02-03 Rate: 250 l 20:56: ml/hr, Randal 00 Infuse over: 4 hr, Route: IV, Dosing Weight 60.909 kg, Total Volume: 1,000, Start date: 02/03/18 15:56:00 CDT, Duration: 30 day, Stop date: 03/05/18 15:55:00 CDT, 1.67, m2 Potassium No Notes: Memori a Chloride 02-03 (Same as: l 20:56: KCL) [place] 00 Infuse no faster than 10 mEq/hr if given peripheral ly. potassium No Notes: Memori a phosphate 02-03 (Same as: l 20:56: K Randal 00 Phosphate. ) Do not infuse phosphorou s concurrent ly in the same line as TPN or IVF that contains calcium. For double lumen central lines, phosphorou s may be infused in a separate lumen from TPN. 1 mMol phoshate has 1.47 mEq potassium Infuse over 4 hours Magnesium No Notes: Memori a Sulfate 02-03 WASTE: F/P l 20:56: - Sink; E Randal 00 - [facility] Trash Bin Dextrose 0 No 25 mL, Memoria 50% Syringe 02-03 Route: l 20:56: IVP, Randal Dosing Weight 60.909, kg, PRN, PRN Blood Glucose Results, Start date: 02/03/18 15:56:00 CDT, Duration: 30 day, Stop date: 03/05/18 15:55:00 CDT Glucagon No 1 mg, Memoria 02-03 Route: IM, l 20:56: PRN, Randal 00 Dosing Weight 60.909, kg, PRN Blood Glucose Results, Start date: 02/03/18 15:56:00 CDT, Duration: 30 day, Stop date: 03/05/18 15:55:00 CDT Insulin 2017-0 No 99 mL, Memoria (regular) 02-03 Rate: l Titrate IV 20:56: Titrate, Her maurer additive Dosing 100 unit + Weight Sodium 60.909, Chloride kg, Route: 0.9% IV, Total (titrate) Volume: 99 mL 99, Priority: Routine, Start Date: 02/03/18 15:56:00 CDT, Duration: 30 day, Stop date: 03/05/18 15:55:00 CDT, Replace Every: 24 hr Sodium 0 No 1,000 mL, Memori a Chloride 02-03 Rate: 250 l 0.9% IV 20:56: ml/hr, [place] 1000 mL 00 Infuse over: 4 hr, Route: IV, Dosing Weight 60.909 kg, Total Volume: 1,000, When Finger stick blood glucose values remain ABOVE 250 mg/dL administer until BG is less than 250 mg/dL., Start date: 02/03/18 15:56:00 CDT, Durati... D5NS 1000 No 1,000 mL, Mem oria mL 02-03 Rate: 250 l 20:56: ml/hr, [place] 00 Infuse over: 4 hr, Route: IV, Dosing Weight 60.909 kg, Total Volume: 1,000, Start date: 02/03/18 15:56:00 CDT, Duration: 30 day, Stop date: 03/05/18 15:55:00 CDT, 1.67, m2 Potassium No Notes: Memori [...] Rate: 250 l 0.9% IV 20:56: ml/hr, Randal 1000 mL 00 Infuse over: 4 hr, Route: IV, Dosing Weight 60.909 kg, Total Volume: 1,000, When Finger stick blood glucose values remain ABOVE 250 mg/dL administer until BG is less than 250 mg/dL., Start date: 02/03/18 15:56:00 CDT, Durati... D5NS 1000 No 1,000 mL, Mem oria mL 02-03 Rate: 250 l 20:56: ml/hr, [place] 00 Infuse over: 4 hr, Route: IV, Dosing Weight 60.909 kg, Total Volume: 1,000, Start date: 02/03/18 15:56:00 CDT, Duration: 30 day, Stop date: 03/05/18 15:55:00 CDT, 1.67, m2 pneumococca No Notes: Pietro kelli l capsular 9-19 (Same as: l polysacchar 20:38: Pneumovax H ermann mark type 1 35 23) vaccine / Refrigerat pneumococca e l capsular polysacchar mark type 10A vaccine / pneumococca l capsular polysacchar mark type 11A vaccine / pneumococca l capsular polysacchar mark type 12F vaccine / pneumococca l capsular polysacchar pneumococca No Notes: Pietro kelli l capsular 9-19 (Same as: l polysacchar 20:38: Pneumovax H ermann mark type 1 35 23) vaccine / Refrigerat pneumococca e l capsular polysacchar mark type 10A vaccine / pneumococca l capsular polysacchar mark type 11A vaccine / pneumococca l capsular polysacchar mark type 12F vaccine / pneumococca l capsular polysacchar pneumococca No Notes: Pietro kelli l capsular 9-19 (Same as: l polysacchar 20:38: Pneumovax H [...] (0.5 mL IM) Shake well before use influenza No Notes: Memori a virus 9-19 (Same as: l vaccine, 20:35: Fluzone Booker n inactivated 50 Quadrivale nt, Fluarix Quadrivale nt) For 3 years of age and older (0.5 mL IM) Shake well before use influenza No Notes: Memori a virus 9-19 (Same as: l vaccine, 20:35: Fluzone Booker n inactivated 50 Quadrivale nt, Fluarix Quadrivale nt) For 3 years of age and older (0.5 mL IM) Shake well before use Enoxaparin No Notes: Memor ia 8-06 (Same as: l 21:00: Lovenox) [place] Clindamycin No Notes: Pietro kelli 8-06 (Same As: l 21:00: Cleocin) [place] 00 Enoxaparin No Notes: Memor ia 8-06 (Same as: l 21:00: Lovenox) [place] Clindamycin No Notes: Pietro kelli 8-06 (Same As: l 21:00: Cleocin) [place] 00 Enoxaparin No Notes: Memor ia 8-06 (Same as: l 21:00: Lovenox) [place] Clindamycin No Notes: Pietro kelli 8-06 (Same As: l 21:00: Cleocin) [place] Ketorolac 2018-0 No 4 days Memor ia 12-21 l 20:51: MEDICATION Randal 00 WASTE Product Size: 30 mg Product Wasted: 15 mg Ketorolac 20180 No 4 days Memor ia 12-21 l 20:51: MEDICATION Randal WASTE Product Size: 30 mg Product Wasted: 15 mg Ketorolac 20180 No 4 days Memor ia 12-21 l 20:51: MEDICATION Randal 00 WASTE Product Size: 30 mg Product Wasted: 15 mg Dextrose 2018 No 25 gm, 50 Pietro kelli 50% [...] WASTE: F/P l 19:51: - Sink; E [place] 00 - Municipal Trash Bin potassium No Notes: Memori a phosphate 12-21 (Same as: l 19:51: K Phosphate. ) 1 mMol phoshate has 1.47 mEq potassium Infuse over 4 hours Sodium 2018-0 No 1,000 mL, Memori a Chloride 12-21 Rate: 250 l 0.9% IV 19:51: ml/hr, [place] 1,000 mL 00 Infuse over: 4 hr, Route: IV, Dosing Weight 62.727 kg, Total Volume: 1,000, When Finger stick blood glucose values remain ABOVE 250 mg/dL administer until BG is less than 250 mg/dL., Start date: 12/21/17 14:51:00 CDT, Durati... D5NS 1,000 2018 No 1,000 mL, Me moria mL 12-21 Rate: 250 l 19:51: ml/hr, [place] 00 Infuse over: 4 hr, Route: IV, Dosing Weight 62.727 kg, Total Volume: 1,000, Start date: 12/21/17 14:51:00 CDT, Duration: 30 day, Stop date: 01/20/18 14:50:00 CDT, 1.71, m2 Dextrose No 25 gm, 50 Pietro kelli [...] 12-21 Route: IM, l 19:51: Drug form: [place] 00 PDR/INJ, PRN, Dosing Weight 62.727, kg, PRN Blood Glucose Results, Start date: 12/21/17 14:51:00 CDT, Duration: 30 day, Stop date: 01/20/18 14:50:00 CDT Potassium 0 No Notes: Memori a Chloride 12-21 (Same as: l 19:51: KCL) Randal 00 Infuse no faster than 10 mEq/hr if given peripheral ly. Magnesium No Notes: Memori a Sulfate 12-21 WASTE: F/P l 19:51: - Sink; E [place] 00 - Municipal Trash Bin potassium No Notes: Memori a phosphate 12-21 (Same as: l 19:51: K [place] 00 Phosphate. ) 1 mMol phoshate has 1.47 mEq potassium Infuse over 4 hours Sodium No 1,000 mL, Memori a Chloride 12-21 Rate: 250 l 0.9% IV 19:51: ml/hr, Randal 1,000 mL 00 Infuse over: 4 hr, Route: IV, Dosing Weight 62.727 kg, Total Volume: 1,000, When Finger stick blood glucose values remain ABOVE 250 mg/dL administer until BG is less than 250 mg/dL., Start date: 12/21/17 14:51:00 CDT, Durati... D5NS 1,000 No 1,000 mL, Me moria mL 12-21 Rate: 250 l 19:51: ml/hr, Randal 00 Infuse over: 4 hr, Route: IV, Dosing Weight 62.727 kg, Total Volume: 1,000, Start date: 12/21/17 14:51:00 CDT, Duration: 30 day, Stop date: 01/20/18 14:50:00 CDT, 1.71, m2 Dextrose No 25 gm, 50 Pietro kelli [...] not shake) Glucagon No 1 mg, Memoria 8-06 Route: IM, l 19:51: Drug form: Randal 00 PDR/INJ, PRN, Dosing Weight 62.727, kg, PRN Blood Glucose Results, Start date: 12/21/17 14:51:00 CDT, Duration: 30 day, Stop date: 01/20/18 14:50:00 CDT Potassium No Notes: Memori a Chloride 12-21 (Same as: l 19:51: KCL) [place] Infuse no faster than 10 mEq/hr if given peripheral ly. Magnesium No Notes: Memori a Sulfate 12-21 WASTE: F/P l 19:51: - Sink; E Randal - Municipal Trash Bin potassium No Notes: Memori a phosphate 12-21 (Same as: l 19:51: K [place] 00 Phosphate. ) 1 mMol phoshate has 1.47 mEq potassium Infuse over 4 hours Sodium 2017- No 1,000 mL, Memori a Chloride 12-21 Rate: 250 l 0.9% IV 19:51: ml/hr, Randal 1,000 mL 00 Infuse over: 4 hr, Route: IV, Dosing Weight 62.727 kg, Total Volume: 1,000, When Finger stick blood glucose values remain ABOVE 250 mg/dL administer until BG is less than 250 mg/dL., Start date: 12/21/17 14:51:00 CDT, Durati... D5NS 1,000 No 1,000 mL, Me moria mL 12-21 Rate: 250 l 19:51: ml/hr, [place] 00 Infuse over: 4 hr, Route: IV, Dosing Weight 62.727 kg, Total Volume: 1,000, Start date: 12/21/17 14:51:00 CDT, Duration: 30 day, Stop date: 01/20/18 14:50:00 CDT, 1.71, m2 NovoLog 2018-0 Yes SUB-Q, Memoria 8-06 TID-Before l 19:33: Meals, 0 Randal 00 Refill(s) NovoLog 2018-0 Yes SUB-Q, Memoria 8-06 TID-Before l 19:33: Meals, 0 [place] 00 Refill(s) NovoLog 2018-0 Yes SUB-Q, Memoria 8-06 TID-Before l 19:33: Meals, 0 Randal 00 Refill(s) Acetaminoph 2018-0 No 1 tab, Pietro kelli en 325 MG / 12-21 Route: PO, l Hydrocodone 19:22: Drug Form: Randal Bitartrate 00 TAB, 5 MG Oral Dosing Tablet Weight [[place] 62.727, 5/325] kg, ONCE, STAT, Start date: 12/21/17 14:22:00 CDT, Stop date: 12/21/17 14:22:00 CDT Acetaminoph 2018-0 No 1 tab, Pietro kelli en 325 MG / 12-21 Route: PO, l Hydrocodone 19:22: Drug Form: [place] Bitartrate 00 TAB, 5 MG Oral Dosing Tablet Weight [[place] 62.727, 5/325] kg, ONCE, STAT, Start date: 12/21/17 14:22:00 CDT, Stop date: 12/21/17 14:22:00 CDT Acetaminoph 2017-0 No 1 tab, Pietro kelli en 325 MG / 12-21 Route: PO, l Hydrocodone 19:22: Drug Form: [place] Bitartrate 00 TAB, 5 MG Oral Dosing Tablet Weight [[place] 62.727, 5/325] kg, ONCE, STAT, Start date: 12/21/17 14:22:00 CDT, Stop date: 12/21/17 14:22:00 CDT NS (Bolus) 2017-0 No 1,000 mL, Me moria IV 12-21 1,000 l 19:18: ml/hr, Infuse Over: 1 hr, Route: IV, ONCE, Priority: STAT, Dosing Weight 62.727 kg, Start date: 12/21/17 14:18:00 CDT, Stop date: 12/21/17 14:18:00 CDT Reglan 2017-0 No 10 mg, Memoria 12-21 Route: l 19:18: IVP, Drug [place] 00 form: INJ, ONCE, Dosing Weight 62.727, kg, Priority: STAT, Start date: 12/21/17 14:18:00 CDT, Stop date: 12/21/17 14:18:00 CDT NS (Bolus) 2017-0 No 1,000 mL, Me moria IV - 1,000 l 19:18: ml/hr, [place] 00 Infuse Over: 1 hr, Route: IV, ONCE, Priority: STAT, Dosing Weight 62.727 kg, Start date: 12/21/17 14:18:00 CDT, Stop date: 12/21/17 14:18:00 CDT Reglan 2018-0 No 10 mg, Memoria 12-21 Route: l 19:18: IVP, Drug Randal 00 form: INJ, ONCE, Dosing Weight 62.727, kg, Priority: STAT, Start date: 12/21/17 14:18:00 CDT, Stop date: 12/21/17 14:18:00 CDT NS (Bolus) 2018-0 No 1,000 mL, Me moria IV 12-21 1,000 l 19:18: ml/hr, [place] 00 Infuse Over: 1 hr, Route: IV, ONCE, Priority: STAT, Dosing Weight 62.727 kg, Start date: 12/21/17 14:18:00 CDT, Stop date: 12/21/17 14:18:00 CDT Reglan 2018-0 No 10 mg, Memoria 12-21 Route: l 19:18: IVP, Drug [place] 00 form: INJ, ONCE, Dosing Weight 62.727, kg, Priority: STAT, Start date: 12/21/17 14:18:00 CDT, Stop date: 12/21/17 14:18:00 CDT Clindamycin 2018-0 No 900 mg, Mem oria 12-21 Route: l 19:16: IVPB, [place] 00 ONCE, Dosing Weight 62.727, kg, Priority: STAT, Start date: 12/21/17 14:16:00 CDT, Stop date: 12/21/17 14:16:00 CDT, ABX Indication : Skin/Soft Tissue Infection Clindamycin 2018-0 No 900 mg, Mem oria 8- Route: l 19:16: IVPB, [place] 00 ONCE, Dosing Weight 62.727, kg, Priority: STAT, Start date: 12/21/17 14:16:00 CDT, Stop date: 12/21/17 14:16:00 CDT, ABX Indication : Skin/Soft Tissue Infection Clindamycin 2018-0 No 900 mg, Mem oria 8- Route: l 19:16: IVPB, [place] 00 ONCE, Dosing Weight 62.727, kg, Priority: STAT, Start date: 12/21/17 14:16:00 CDT, Stop date: 12/21/17 14:16:00 CDT, ABX Indication : Skin/Soft Tissue Infection Insulin 2018-0 No 10 unit, Memori a regular 12-21 Route: l 19:09: IVP, ONCE, [place] 00 Dosing Weight 62.727, kg, Priority: STAT, Start date: 12/21/17 14:09:00 CDT, Stop date: 12/21/17 14:09:00 CDT Insulin 2018-0 No 10 unit, Memori a regular 12-21 Route: l 19:09: IVP, ONCE, [place] 00 Dosing Weight 62.727, kg, Priority: STAT, Start date: 12/21/17 14:09:00 CDT, Stop date: 12/21/17 14:09:00 CDT Insulin 2018-0 No 10 unit, Memori a regular 12-21 Route: l 19:09: IVP, ONCE, [place] 00 Dosing Weight 62.727, kg, Priority: STAT, Start date: 12/21/17 14:09:00 CDT, Stop date: 12/21/17 14:09:00 CDT Phenergan 2018-0 No 12.5 mg, Pietro kelli 12-21 Route: l 18:17: IVPB, [place] 00 ONCE, Dosing Weight 62.727, kg, Priority: STAT, Start date: 12/21/17 13:17:00 CDT, Stop date: 12/21/17 13:17:00 CDT Phenergan 2018-0 No 12.5 mg, Pietro kelli 12-21 Route: l 18:17: IVPB, [place] 00 ONCE, Dosing Weight 62.727, kg, Priority: STAT, Start date: 12/21/17 13:17:00 CDT, Stop date: 12/21/17 13:17:00 CDT Phenergan 2018-0 No 12.5 mg, Pietro kelli 12-21 Route: l 18:17: IVPB, [place] 00 ONCE, Dosing Weight 62.727, kg, Priority: STAT, Start date: 12/21/17 13:17:00 CDT, Stop date: 12/21/17 13:17:00 CDT NS (Bolus) 2018-0 No 1,000 mL, Me moria IV 8-06 1,000 l 18:13: ml/hr, [place] 00 Infuse Over: 1 hr, Route: IV, ONCE, Priority: STAT, Dosing Weight 62.727 kg, Start date: 12/21/17 13:13:00 CDT, Stop date: 12/21/17 13:13:00 CDT NS (Bolus) 2018-0 No 1,000 mL, Me moria IV 8-06 1,000 l 18:13: ml/hr, [place] 00 Infuse Over: 1 hr, Route: IV, ONCE, Priority: STAT, Dosing Weight 62.727 kg, Start date: 12/21/17 13:13:00 CDT, Stop date: 12/21/17 13:13:00 CDT NS (Bolus) 2018-0 No 1,000 mL, Me moria IV 8-06 1,000 l 18:13: ml/hr, [place] 00 Infuse Over: 1 hr, Route: IV, ONCE, Priority: STAT, Dosing Weight 62.727 kg, Start date: 12/21/17 13:13:00 CDT, Stop date: 12/21/17 13:13:00 CDT Metoclopram 2018-0 Yes 10 mg = 1 M emoria mark 10 MG 6-28 tab, PO, l Oral Tablet 06:00: QID-Before [place] 00 Meals, X 7 day, # 28 tab, 0 Refill(s) Metoclopram 2018-0 Yes 10 mg = 1 M emoria mark 10 MG 6-28 tab, PO, l Oral Tablet 06:00: QID-Before [place] 00 Meals, X 7 day, # 28 tab, 0 Refill(s) Metoclopram 2018-0 Yes 10 mg = 1 M emoria mark 10 MG 6-28 tab, PO, l Oral Tablet 06:00: QID-Before [place] 00 Meals, X 7 day, # 28 tab, 0 Refill(s) NS (Bolus) 2018-0 No 1,000 mL, Me moria IV 6-28 1,000 l 03:53: ml/hr, [place] 00 Infuse Over: 1 hr, Route: IV, 1,000, Drug form: INJ, ONCE, Priority: STAT, Dosing Weight 59.091 kg, Start date: 11/11/17 22:53:00 CDT, Stop date: 11/11/17 22:53:00 CDT NS (Bolus) 2018-0 No 1,000 mL, Me moria IV 6-28 1,000 l 03:53: ml/hr, [place] 00 Infuse Over: 1 hr, Route: IV, 1,000, Drug form: INJ, ONCE, Priority: STAT, Dosing Weight 59.091 kg, Start date: 11/11/17 22:53:00 CDT, Stop date: 11/11/17 22:53:00 CDT NS (Bolus) 0 No 1,000 mL, Me moria IV 6-28 1,000 l 03:53: ml/hr, [place] 00 Infuse Over: 1 hr, Route: IV, 1,000, Drug form: INJ, ONCE, Priority: STAT, Dosing Weight 59.091 kg, Start date: 11/11/17 22:53:00 CDT, Stop date: 11/11/17 22:53:00 CDT Metoclopram 2017-0 No Notes: Pietro kelli mark - (Same as: l 01:24: Reglan) [place] NS (Bolus) 0 No 1,000 mL, Me moria IV - 1,000 l 01:24: ml/hr, [place] 00 Infuse Over: 1 hr, Route: IV, 1,000, Drug form: INJ, ONCE, Priority: STAT, Dosing Weight 59.091 kg, Start date: 11/11/17 20:24:00 CDT, Stop date: 11/11/17 20:24:00 CDT Metoclopram 2017-0 No Notes: Pietro kelli mark -28 (Same as: l 01:24: Reglan) [place] 00 NS (Bolus) 0 No 1,000 mL, Me moria IV 6-28 1,000 l 01:24: ml/hr, [place] 00 Infuse Over: 1 hr, Route: IV, 1,000, Drug form: INJ, ONCE, Priority: STAT, Dosing Weight 59.091 kg, Start date: 11/11/17 20:24:00 CDT, Stop date: 11/11/17 20:24:00 CDT Metoclopram 2018-0 No Notes: Pietro kelli mark - (Same as: l 01:24: Reglan) [place] 00 NS (Bolus) 2018-0 No 1,000 mL, Me moria IV -28 1,000 l 01:24: ml/hr, [place] 00 Infuse Over: 1 hr, Route: IV, 1,000, Drug form: INJ, ONCE, Priority: STAT, Dosing Weight 59.091 kg, Start date: 11/11/17 20:24:00 CDT, Stop date: 11/11/17 20:24:00 CDT Dextrose 2018-0 No 25 gm, 50 Pietro kelli 50% Syringe 6-28 mL, Route: l 00:05: IVP, Drug Form: INJ, Dosing Weight 64.636, kg, PRN, PRN Blood Glucose Results, Start date: 11/11/17 19:05:00 CDT, Duration: 1 day, Stop date: 11/12/17 19:04:00 CDT Glucagon 2018-0 No 1 mg, Memoria 11-12 Route: IM, l 00:05: Drug form: [place] 00 PDR/INJ, PRN, Dosing Weight 64.636, kg, PRN Blood Glucose Results, Start date: 11/11/17 19:05:00 CDT, Duration: 1 day, Stop date: 11/12/17 19:04:00 CDT Saline 2018-0 No Notes: Memoria Flush 0.9% 11-12 (Same as: l 00:05: BD [place] 00 Posiflush) Dextrose 2018-0 No 25 gm, 50 Pietro kelli 50% Syringe 6-28 mL, Route: l 00:05: IVP, Drug Form: INJ, Dosing Weight 64.636, kg, PRN, PRN Blood Glucose Results, Start date: 11/11/17 19:05:00 CDT, Duration: 1 day, Stop date: 11/12/17 19:04:00 CDT Glucagon 2018-0 No 1 mg, Memoria 11-12 Route: IM, l 00:05: Drug form: [place] 00 PDR/INJ, PRN, Dosing Weight 64.636, kg, PRN Blood Glucose Results, Start date: 11/11/17 19:05:00 CDT, Duration: 1 day, Stop date: 11/12/17 19:04:00 CDT Saline No Notes: Memoria Flush 0.9% 6-28 (Same as: l 00:05: BD [place] 00 Posiflush) Dextrose No 25 gm, 50 Pietro kelli 50% Syringe 6-28 mL, Route: l 00:05: IVP, Drug [place] 00 Form: INJ, Dosing Weight 64.636, kg, PRN, PRN Blood Glucose Results, Start date: 11/11/17 19:05:00 CDT, Duration: 1 day, Stop date: 11/12/17 19:04:00 CDT Glucagon No 1 mg, Memoria 6-28 Route: IM, l 00:05: Drug form: [place] 00 PDR/INJ, PRN, Dosing Weight 64.636, kg, PRN Blood Glucose Results, Start date: 11/11/17 19:05:00 CDT, Duration: 1 day, Stop date: 11/12/17 19:04:00 CDT Saline No Notes: Memoria Flush 0.9% 6-28 (Same as: l 00:05: BD Posiflush) Meloxicam Meloxicam Erica YE 1 QD TAKE 1 UT 15 MG Oral 15 MG Oral 6-19 OZOUDE TABLET Physici Tablet Tablet 00:00: M.D. DAILY. ans 00 traMADol traMADol Erica YE 1 Q6H TAKE 1 U T HCl - 50 MG HCl - 50 MG 6-19 OZOUDE TABLET Physici Oral Tablet Oral Tablet 00:00: M.D. EVERY 6 ans 00 HOURS Acetaminoph No 1 - 2 tab, Memoria en 300 MG / 6-14 PO, Q4H, l Codeine 19:24: PRN Pain, Perlita nn Phosphate 00 X 2 day, # 30 MG Oral 12 tab, 0 Tablet Refill(s) [Tylenol with Codeine #3] Acetaminoph No 1 - 2 tab, Memoria en 300 MG / 6-14 PO, Q4H, l Codeine 19:24: PRN Pain, Perlita nn Phosphate 00 X 2 day, # 30 MG Oral 12 tab, 0 Tablet Refill(s) [Tylenol with Codeine #3] Acetaminoph No 1 - 2 tab, Memoria en 300 MG / 6-14 PO, Q4H, l Codeine 19:24: PRN Pain, Perlita nn Phosphate 00 X 2 day, # 30 MG Oral 12 tab, 0 Tablet Refill(s) [Tylenol with Codeine #3] Bacitracin No 1 appl, Pietro kelli 0.5 UNT/MG 5-07 TOP, BID, l / Neomycin 01:30: # 15 gm, 0 H ermann 0.0035 00 Refill(s) MG/MG / Polymyxin B 10 UNT/MG / Pramoxine hydrochlori de 0.01 MG/MG Topical Ointment [Neosporin Plus Maximum Strength] Bacitracin No 1 appl, Pietro kelli 0.5 UNT/MG 5-07 TOP, BID, l / Neomycin 01:30: # 15 gm, 0 H ermann 0.0035 00 Refill(s) MG/MG / Polymyxin B 10 UNT/MG / Pramoxine hydrochlori de 0.01 MG/MG Topical Ointment [Neosporin Plus Maximum Strength] Bacitracin No 1 appl, Pietro kelli 0.5 UNT/MG 5-07 TOP, BID, l / Neomycin 01:30: # 15 gm, 0 H ermann 0.0035 00 Refill(s) MG/MG / Polymyxin B 10 UNT/MG / Pramoxine hydrochlori de 0.01 MG/MG Topical Ointment [Neosporin Plus Maximum Strength] Lidocaine No Notes: Memori a Hydrochlori 5-07 Preservati l de 10 MG/ML 01:18: ve free. He rmann Injectable 00 (Same as: Solution Xylocaine MPF) Lidocaine No Notes: Memori a Hydrochlori 5-07 Preservati l de 10 MG/ML 01:18: ve free. He rmann Injectable 00 (Same as: Solution Xylocaine MPF) Lidocaine No Notes: Memori a Hydrochlori 5-07 Preservati l de 10 MG/ML 01:18: ve free. He rmann Injectable 00 (Same as: Solution Xylocaine MPF) LET topical No 3 mL, Memor ia 5-07 Route: l 00:31: TOP, ONCE, Drug form: GEL, Priority: Stat, Start date: 09/20/17 19:31:00 CDT, Stop date: 09/20/17 19:31:00 CDT LET topical 2018-0 No 3 mL, Memor ia 5-07 Route: l 00:31: TOP, ONCE, Drug form: GEL, Priority: Stat, Start date: 09/20/17 19:31:00 CDT, Stop date: 09/20/17 19:31:00 CDT LET topical 2018-0 No 3 mL, Memor ia 5-07 Route: l 00:31: TOP, ONCE, Drug form: GEL, Priority: Stat, Start date: 09/20/17 19:31:00 CDT, Stop date: 09/20/17 19:31:00 CDT Depo-Senior Litigation Paralegal 2017-0 Yes 400 mg, Mem oria a 1-19 IM, 0 l 17:44: Refill(s) Depo-Senior Litigation Paralegal 2017-0 Yes 400 mg, Mem oria a 1-19 IM, 0 l 17:44: Refill(s) [place] 00 Depo-Senior Litigation Paralegal 2017-0 Yes 400 mg, Mem oria a 1-19 IM, 0 l 17:44: Refill(s) tramadol 2017-0 Yes 50 mg = 1 Pietro kelli hydrochlori 1-19 tab, PO, l de 50 MG 17:30: BID, X 3 Perlita nn Oral Tablet 00 day, # 6 tab, 0 Refill(s) tramadol 2017-0 Yes 50 mg = 1 Pietro kelli hydrochlori 1-19 tab, PO, l de 50 MG 17:30: BID, X 3 Perlita nn Oral Tablet 00 day, # 6 tab, 0 Refill(s) tramadol 2017-0 Yes 50 mg = 1 Pietro kelli hydrochlori 1-19 tab, PO, l de 50 MG 17:30: BID, X 3 Perlita nn Oral Tablet 00 day, # 6 tab, 0 Refill(s) Ketorolac 2017-0 No 60 mg, Memori a 1-19 Route: IM, l 17:27: Drug form: Randal INJ, ONCE, Dosing Weight 60.114, kg, Priority: STAT, Start date: 06/05/16 11:27:00 UTILITY AGENT, Stop date: 06/05/16 11:27:00 UTILITY AGENT Ketorolac 2017-0 No 60 mg, Memori a 06-05 Route: IM, l 17:27: Drug form: [place] 00 INJ, ONCE, Dosing Weight 60.114, kg, Priority: STAT, Start date: 06/05/16 11:27:00 UTILITY AGENT, Stop date: 06/05/16 11:27:00 UTILITY AGENT Ketorolac 2017-0 No 60 mg, Memori a 06-05 Route: IM, l 17:27: Drug form: [place] 00 INJ, ONCE, Dosing Weight 60.114, kg, Priority: STAT, Start date: 06/05/16 11:27:00 UTILITY AGENT, Stop date: 06/05/16 11:27:00 UTILITY AGENT ketOROLAC 2016-0 No IV, ONCE Pietro kelli (ANES) 18 l 14:18: neostigmine 2015-0 No Route: IV, Memoria (ANES) 18 Drug form: l 14:18: INJ, ONCE, Stop date: 12/03/15 9:18:00 CDT glycopyrrol 2015-0 No Route: IV, Memoria ate (ANES) 18 Drug form: l 14:18: INJ, ONCE, Stop date: 12/03/15 9:18:00 CDT ketOROLAC 2015-0 No IV, ONCE Pietro kelli (ANES) 18 l 14:18: neostigmine 2015-0 No Route: IV, Memoria (ANES) 718 Drug form: l 14:18: INJ, ONCE, Stop date: 12/03/15 9:18:00 CDT glycopyrrol 2016-0 No Route: IV, Memoria ate (ANES) 18 Drug form: l 14:18: INJ, ONCE, Stop date: 12/03/15 9:18:00 CDT ketOROLAC 2016-0 No IV, ONCE Pietro kelli (ANES) 18 l 14:18: neostigmine 2016-0 No Route: IV, Memoria (ANES) 7-18 Drug form: l 14:18: INJ, ONCE, Stop date: 12/03/15 9:18:00 CDT glycopyrrol No Route: IV, Memoria ate (ANES) 12-02 Drug form: l 14:18: INJ, ONCE, Stop date: 12/03/15 9:18:00 CDT Acetaminoph No 1 tab, PO, Memoria en 300 MG / 18 Q4H, PRN l Codeine 14:02: Pain Score Herm reynaldo Phosphate 00 4-6, # 30 30 MG Oral tab, 0 Tablet Refill(s) Acetaminoph No 1 tab, PO, Memoria en 300 MG / -18 Q4H, PRN l Codeine 14:02: Pain Score Herm reynaldo Phosphate 00 4-6, # 30 30 MG Oral tab, 0 Tablet Refill(s) Acetaminoph No 1 tab, PO, Memoria en 300 MG / 18 Q4H, PRN l Codeine 14:02: Pain Score Herm reynaldo Phosphate 00 4-6, # 30 30 MG Oral tab, 0 Tablet Refill(s) acetaminoph No Notes: Do M emoria en-codeine 18 not exceed l #3 14:00: 4gm/day of acetaminop hen. (Same as: Tylenol with Codeine # 3) acetaminoph No Notes: Do M emoria en-codeine -18 not exceed l #3 14:00: 4gm/day of acetaminop hen. (Same as: Tylenol with Codeine # 3) acetaminoph No Notes: Do M emoria en-codeine 18 not exceed l #3 14:00: 4gm/day of acetaminop hen. (Same as: Tylenol with Codeine # 3) promethazin No Route: IV, Memoria e (ANES) 12-02 Drug form: l 13:58: INJ, ONCE, Stop date: 12/03/15 8:58:00 CDT promethazin No Route: IV, Memoria e (ANES) 12-02 Drug form: l 13:58: INJ, ONCE, Randal 00 Stop date: 12/03/15 8:58:00 CDT promethazin 2015- No Route: IV, Memoria e (ANES) 12-02 Drug form: l 13:58: INJ, ONCE, Randal 00 Stop date: 12/03/15 8:58:00 CDT succinylcho No Route: IV, Memoria line (ANES) 12-02 Drug form: l 13:53: INJ, ONCE, Stop date: 12/03/15 8:53:00 CDT lidocaine 0 No Route: IV, Me moria (ANES) 12-02 Drug form: l 13:53: INJ, ONCE, Stop date: 12/03/15 8:53:00 CDT fentaNYL No Route: IV, Mem oria (ANES) 12-02 Drug form: l 13:53: INJ, ONCE, Stop date: 12/03/15 8:53:00 CDT morphine 0 No Route: IV, Mem oria Sulfate 12-02 Drug form: l (ANES) 13:53: INJ, ONCE, Perlita Stop date: 12/03/15 8:53:00 CDT propofol 0 No Route: IV, Mem oria (ANES) 7 Drug form: l 13:53: INJ, ONCE, Randal 00 Stop date: 12/03/15 8:53:00 CDT rocuronium No Route: IV, M emoria (ANES) 12-02 Drug form: l 13:53: INJ, ONCE, [place] 00 Stop date: 12/03/15 8:53:00 CDT succinylcho 0 No Route: IV, Memoria line (ANES) 12-02 Drug form: l 13:53: INJ, ONCE, [place] 00 Stop date: 12/03/15 8:53:00 CDT lidocaine 0 No Route: IV, Me moria (ANES) 12-02 Drug form: l 13:53: INJ, ONCE, Randal 00 Stop date: 12/03/15 8:53:00 CDT fentaNYL 0 No Route: IV, Mem oria (ANES) 7-18 Drug form: l 13:53: INJ, ONCE, Randal 00 Stop date: 12/03/15 8:53:00 CDT morphine 2016-0 No Route: IV, Mem oria Sulfate 7-18 Drug form: l (ANES) 13:53: INJ, ONCE, Perlita nn Stop date: 12/03/15 8:53:00 CDT propofol 2016-0 No Route: IV, Mem oria (ANES) 7-18 Drug form: l 13:53: INJ, ONCE, [place] 00 Stop date: 12/03/15 8:53:00 CDT rocuronium 2015-0 No Route: IV, M emoria (ANES) 7-18 Drug form: l 13:53: INJ, ONCE, Stop date: 12/03/15 8:53:00 CDT succinylcho No Route: IV, Memoria line (ANES) 7-18 Drug form: l 13:53: INJ, ONCE, Stop date: 12/03/15 8:53:00 CDT lidocaine 2015-0 No Route: IV, Me moria (ANES) 7-18 Drug form: l 13:53: INJ, ONCE, Stop date: 12/03/15 8:53:00 CDT fentaNYL 2016-0 No Route: IV, Mem oria (ANES) 7-18 Drug form: l 13:53: INJ, ONCE, Stop date: 12/03/15 8:53:00 CDT morphine 2016-0 No Route: IV, Mem oria Sulfate 7-18 Drug form: l (ANES) 13:53: INJ, ONCE, [place] nn Stop date: 12/03/15 8:53:00 CDT propofol 2016-0 No Route: IV, Mem oria (ANES) 7-18 Drug form: l 13:53: INJ, ONCE, [place]andal 00 Stop date: 12/03/15 8:53:00 CDT rocuronium 2016-0 No Route: IV, M emoria (ANES) 7-18 Drug form: l 13:53: INJ, ONCE, [place] 00 Stop date: 12/03/15 8:53:00 CDT midazolam 2016-0 No Route: IV, Me moria (ANES) 7-18 Drug form: l 13:48: SOLN Randal 00 ONCE, Stop date: 12/03/15 8:48:00 CDT midazolam No Route: IV, Me moria (ANES) 7- Drug form: l 13:48: SOLN, [place] 00 ONCE, Stop date: 12/03/15 8:48:00 CDT midazolam No Route: IV, Me moria (ANES) 718 Drug form: l 13:48: SOLN, [place] 00 ONCE, Stop date: 12/03/15 8:48:00 CDT acetaminoph No Route: IV, Memoria en (ANES) 12-02 Drug form: l (ANES) 13:10: INJ, Start [place] date: 12/03/15 8:10:00 CDT, Stop date: 12/03/15 9:10:00 CDT acetaminoph No Route: IV, Memoria en (ANES) 12-02 Drug form: l (ANES) 13:10: INJ, Start [place] date: 12/03/15 8:10:00 CDT, Stop date: 12/03/15 9:10:00 CDT acetaminoph No Route: IV, Memoria en (ANES) 12-02 Drug form: l (ANES) 13:10: INJ, Start [place] date: 12/03/15 8:10:00 CDT, Stop date: 12/03/15 9:10:00 CDT cefOXitin No Route: IV, Me moria (ANES) 12-02 Drug form: l (ANES) 13:00: INJ, Start [place] date: 12/03/15 8:00:00 CDT, Stop date: 12/03/15 9:00:00 CDT LR 1000 mL No Route: IV, M emoria INJ (ANES) - Total l 13:00: Volume: Randal 00 1,000, Start date: 12/03/15 8:00:00 CDT, Stop date: 12/03/15 9:00:00 CDT cefOXitin No Route: IV, Me moria (ANES) 7-18 Drug form: l (ANES) 13:00: INJ, Start [place] nn date: 12/03/15 8:00:00 CDT, Stop date: 12/03/15 9:00:00 CDT LR 1000 mL No Route: IV, M emoria INJ (ANES) 7-18 Total l 13:00: Volume: [place] 00 1,000, Start date: 12/03/15 8:00:00 CDT, Stop date: 12/03/15 9:00:00 CDT cefOXitin No Route: IV, Me moria (ANES) 18 Drug form: l (ANES) 13:00: INJ, Start [place] nn date: 12/03/15 8:00:00 CDT, Stop date: 12/03/15 9:00:00 CDT LR 1000 mL No Route: IV, M emoria INJ (ANES) 18 Total l 13:00: Volume: Randal 00 1,000, Start date: 12/03/15 8:00:00 CDT, Stop date: 12/03/15 9:00:00 CDT Insulin 2015-0 No 5 unit, Memoria regular 12-02 Route: l 12:15: SUB-Q, Randal 00 ONCE, Dosing Weight 55.909, kg, Start date: 12/03/15 7:15:00 CDT, Stop date: 12/03/15 7:15:00 CDT Insulin 2016-0 No 5 unit, Memoria regular 18 Route: l 12:15: SUB-Q, [place] 00 ONCE, Dosing Weight 55.909, kg, Start date: 12/03/15 7:15:00 CDT, Stop date: 12/03/15 7:15:00 CDT Insulin 2015-0 No 5 unit, Memoria regular 18 Route: l 12:15: SUB-Q, [place] 00 ONCE, Dosing Weight 55.909, kg, Start date: 12/03/15 7:15:00 CDT, Stop date: 12/03/15 7:15:00 CDT Calcium 2016-0 No 1,000 mL, Memor ia Chloride 12-02 Rate: 25 l 0.0014 12:09: ml/hr, [place] MEQ/ML / 00 Infuse Potassium over: 40 Chloride hr, Route: 0.004 IV, Dosing MEQ/ML / Weight Sodium 55.909 kg, Chloride Total 0.103 Volume: MEQ/ML / 1,000, Sodium Start Lactate date: 0.028 18/16 MEQ/ML 7:09:00 Injectable CDT, Solution Duration: 1 doses or times, Stop date: 12/04/15 23:08:00 CDT Insulin No Notes: Memoria regular 12-02 (Same as: l 12:09: Humulin R Randal 00 and NovoLIN R) WASTE: F/P - Black; E - Municipal Trash Bin (Do not shake) Calcium No 1,000 mL, Memor ia Chloride 12-02 Rate: 25 l 0.0014 12:09: ml/hr, Randal MEQ/ML / 00 Infuse Potassium over: 40 Chloride hr, Route: 0.004 IV, Dosing MEQ/ML / Weight Sodium 55.909 kg, Chloride Total 0.103 Volume: MEQ/ML / 1,000, Sodium Start Lactate date: 0.028 16 MEQ/ML 7:09:00 Injectable CDT, Solution Duration: 1 doses or times, Stop date: 12/04/15 23:08:00 CDT Insulin No Notes: Memoria regular 12-02 (Same as: l 12:: Humulin R [place] 00 and NovoLIN R) WASTE: F/P - Black; E - Municipal Trash Bin (Do not shake) Calcium No 1,000 mL, Memor ia Chloride 12-02 Rate: 25 l 0.0014 12:09: ml/hr, Randal MEQ/ML / 00 Infuse Potassium over: 40 Chloride hr, Route: 0.004 IV, Dosing MEQ/ML / Weight Sodium 55.909 kg, Chloride Total 0.103 Volume: MEQ/ML / 1,000, Sodium Start Lactate date: 0.028 18/16 MEQ/ML 7:09:00 Injectable CDT, Solution Duration: 1 doses or times, Stop date: 12/04/15 23:08:00 CDT Insulin No Notes: Memoria regular 12-02 (Same as: l 12:09: Humulin R [place] 00 and NovoLIN R) WASTE: F/P - Black; E - Municipal Trash Bin (Do not shake) Promethazin No Notes: Do M emoria e 7-18 not give l 12:00: IV push. [place] 00 (Same as: Phenergan) Morphine No Notes: Memoria 7-18 (Same l 12:00: as:MORPhin [place] 00 e Sulfate) Naloxone No Notes: Memoria 7-18 Same as l 12:00: Narcan [place] 00 Flumazenil No Notes: Memor ia 7-18 (Same as: l 12:00: Romazicon) Randal 00 Acetaminoph No Notes: Pietro kelli en 7-18 Infuse l 12:00: over 15 [place] 00 minutes Do not exceed 4gm/day of acetaminop hen MEDICATION WASTE Product Size: 1000 mg Product Wasted: ___ mg Hydralazine No Notes: Pietro kelli 7-18 (Same as: l 12:00: Apresoline Randal 00 ) Push over 5 minutes Labetalol No Notes: Memori a 7-18 (Same as: l 12:00: Normodyne, [place] 00 Trandate) Push over 2 minutes Give bolus over 2-3 minutes. Promethazin No Notes: Do M emoria e 7-18 not give l 12:00: IV push. Randal 00 (Same as: Phenergan) Morphine No Notes: Memoria 7-18 (Same l 12:00: as:MORPhin [place] 00 e Sulfate) Naloxone No Notes: Memoria 7-18 Same as l 12:00: Narcan [place] 00 Flumazenil No Notes: Memor ia 7-18 (Same as: l 12:00: Romazicon) Randal Acetaminoph No Notes: Pietro kelli en 7-18 Infuse l 12:00: over 15 [place] 00 minutes Do not exceed 4gm/day of acetaminop hen MEDICATION WASTE Product Size: 1000 mg Product Wasted: ___ mg Hydralazine No Notes: Pietro kelli 7-18 (Same as: l 12:00: Apresoline [place] 00 ) Push over 5 minutes Labetalol No Notes: Memori a 7-18 (Same as: l 12:00: Normodyne, R[place] 00 Trandate) Push over 2 minutes Give bolus over 2-3 minutes. Promethazin No Notes: Do M emoria e 7-18 not give l 12:00: IV push. [place] (Same as: Phenergan) Morphine No Notes: Memoria 7-18 (Same l 12:00: as:MORPhin e Sulfate) Naloxone No Notes: Memoria 7-18 Same as l 12:00: Narcan Flumazenil No Notes: Memor ia 7-18 (Same as: l 12:00: Romazicon) Acetaminoph No Notes: Pietro kelli en 7-18 Infuse l 12:00: over 15 minutes Do not exceed 4gm/day of acetaminop hen MEDICATION WASTE Product Size: 1000 mg Product Wasted: ___ mg Hydralazine No Notes: Pietro kelli 7-18 (Same as: l 12:00: Apresoline ) Push over 5 minutes Labetalol No Notes: Memori a 7-18 (Same as: l 12:00: Normodyne, [place] 00 Trandate) Push over 2 minutes Give bolus over 2-3 minutes. Mefoxin No Notes: Memoria 7-18 (Same As: l 11:00: Mefoxin) Mefoxin No Notes: Memoria 7-18 (Same As: l 11:00: Mefoxin) Mefoxin No Notes: Memoria 7-18 (Same As: l 11:00: Mefoxin) Lactated No 1,000 mL, Pietro kelli Ringers 7-18 Rate: 100 l 1,000 mL 10:03: ml/hr, Infuse over: 10 hr, Route: IV, Dosing Weight 55.909 kg, Total Volume: 1,000, Start date: 12/03/15 5:03:00 CDT, Duration: 30 day, Stop date: 01/02/16 5:02:00 CDT Lactated 2016-0 No 1,000 mL, Pietro kelli Ringers 7-18 Rate: 100 l 1,000 mL 10:03: ml/hr, [place] 00 Infuse over: 10 hr, Route: IV, Dosing Weight 55.909 kg, Total Volume: 1,000, Start date: 12/03/15 5:03:00 CDT, Duration: 30 day, Stop date: 01/02/16 5:02:00 CDT Lactated 2016-0 No 1,000 mL, Pietro kelli Ringers 7-18 Rate: 100 l 1,000 mL 10:03: ml/hr, [place] 00 Infuse over: 10 hr, Route: IV, Dosing Weight 55.909 kg, Total Volume: 1,000, Start date: 12/03/15 5:03:00 CDT, Duration: 30 day, Stop date: 01/02/16 5:02:00 CDT promethazin Yes 25 mg = 1 M emoria e 25 mg 7-14 tab, PO, l oral tablet 17:22: Q4H, PRN He rmann 00 Nausea/Vom iting, # 15 tab, 0 Refill(s) promethazin Yes 25 mg = 1 M emoria e 25 mg 7-14 tab, PO, l oral tablet 17:22: Q4H, PRN He rmann 00 Nausea/Vom iting, # 15 tab, 0 Refill(s) promethazin Yes 25 mg = 1 M emoria e 25 mg 7-14 tab, PO, l oral tablet 17:22: Q4H, PRN He rmann 00 Nausea/Vom iting, # 15 tab, 0 Refill(s) Humalog 100 0 Yes 10 unit, Me moria units/mL 7-14 SUB-Q, l 17:21: TID, 0 [place] 00 Refill(s) insulin 20160 Yes 20 unit, Memori a detemir 100 7-14 SUB-Q, l UNT/ML 17:21: Bedtime, 0 [place]ita nn Injectable 00 Refill(s) Solution [Levemir] Humalog 100 Yes 10 unit, Me moria units/mL 7-14 SUB-Q, l 17:21: TID, 0 Randal 00 Refill(s) insulin Yes 20 unit, Memori a detemir 100 7-14 SUB-Q, l UNT/ML 17:21: Bedtime, 0 Perlita nn Injectable 00 Refill(s) Solution [Levemir] Humalog 100 Yes 10 unit, Me moria units/mL 7-14 SUB-Q, l 17:21: TID, 0 Randal 00 Refill(s) insulin Yes 20 unit, Memori a detemir 100 7-14 SUB-Q, l UNT/ML 17:21: Bedtime, 0 Perlita nn Injectable 00 Refill(s) Solution [Levemir] Dicyclomine Yes 10 mg = 1 M emoria Hydrochlori 7-14 cap, PO, l de 10 MG 17:14: TID, 0 [place] Oral 00 Refill(s) Capsule [Bentyl] Dicyclomine Yes 10 mg = 1 M emoria Hydrochlori 7-14 cap, PO, l de 10 MG 17:14: TID, 0 [place] Oral 00 Refill(s) Capsule [Bentyl] Dicyclomine Yes 10 mg = 1 M emoria Hydrochlori 7-14 cap, PO, l de 10 MG 17:14: TID, 0 Randal Oral 00 Refill(s) Capsule [Bentyl] Kinevac + No Notes: Memori a sodium 7-07 (Same as: l chloride 16:00: Kinevac) Perlita nn 0.9% INJ 50 00 mL Kinevac + No Notes: Memori a sodium 7-07 (Same as: l chloride 16:00: Kinevac) Perlita nn 0.9% INJ 50 00 mL Kinevac + No Notes: Memori a sodium 7-07 (Same as: l chloride 16:00: Kinevac) Perlita nn 0.9% INJ 50 00 mL Metoclopram Yes 10 mg = 1 M emoria mark 10 MG 6-30 tab, PO, l Oral Tablet 17:28: QID, PRN He rmann [Reglan] 00 nausea, X 7 day, # 28 tab, 0 Refill(s) Dicyclomine 2016-0 Yes 10 mg = 1 M emoria Hydrochlori 6-30 cap, PO, l de 10 MG 17:28: QID, # 28 Herm reynaldo Oral 00 cap, 0 Capsule Refill(s) [Bentyl] Metoclopram 2016 Yes 10 mg = 1 M emoria mark 10 MG 6-30 tab, PO, l Oral Tablet 17:28: QID, PRN He rmann [Reglan] 00 nausea, X 7 day, # 28 tab, 0 Refill(s) Dicyclomine 2016 Yes 10 mg = 1 M emoria Hydrochlori 6-30 cap, PO, l de 10 MG 17:28: QID, # 28 Herm reynaldo Oral 00 cap, 0 Capsule Refill(s) [Bentyl] Metoclopram 2016 Yes 10 mg = 1 M emoria mark 10 MG 6-30 tab, PO, l Oral Tablet 17:28: QID, PRN He rmann [Reglan] 00 nausea, X 7 day, # 28 tab, 0 Refill(s) Dicyclomine 2016 Yes 10 mg = 1 M emoria Hydrochlori 6-30 cap, PO, l de 10 MG 17:28: QID, # 28 Herm reynaldo Oral 00 cap, 0 Capsule Refill(s) [Bentyl] Morphine No Notes: Memoria 6-30 (Same l 16:45: as:MORPhin [place] 00 e Sulfate) Reglan No Notes: Memoria 6-30 (Same as: l 16:45: Reglan) Morphine No Notes: Memoria 6-30 (Same l 16:45: as:MORPhin [place] 00 e Sulfate) Reglan No Notes: Memoria 6-30 (Same as: l 16:45: Reglan) Morphine No Notes: Memoria 6-30 (Same l 16:45: as:MORPhin [place] 00 e Sulfate) Reglan No Notes: Memoria 6-30 (Same as: l 16:45: Reglan) Promethazin No 25 mg, Pietro kelli e 6-30 Route: l 14:15: IVPB, [place] 00 ONCE, Dosing Weight 54.233, kg, Priority: STAT, Start date: 11/15/15 9:15:00 CDT, Stop date: 11/15/15 9:15:00 CDT Promethazin 2016-0 No 25 mg, Pietro kelli e 6-30 Route: l 14:15: IVPB, [place] 00 ONCE, Dosing Weight 54.233, kg, Priority: STAT, Start date: 11/15/15 9:15:00 CDT, Stop date: 11/15/15 9:15:00 CDT Promethazin 2016-0 No 25 mg, Pietro kelli e 6-30 Route: l 14:15: IVPB, [place] 00 ONCE, Dosing Weight 54.233, kg, Priority: STAT, Start date: 11/15/15 9:15:00 CDT, Stop date: 11/15/15 9:15:00 CDT Sodium 2016-0 No 1,000 mL, Memori a Chloride 6-30 1,000 l 0.154 14:14: ml/hr, [place] MEQ/ML 00 Infuse Injectable Over: 1 Solution hr, Route: IV, ONCE, Priority: STAT, Dosing Weight 54.233 kg, Start date: 11/15/15 9:14:00 CDT, Duration: 1 doses or times, Stop date: 11/15/15 9:14:00 CDT Ketorolac 2016-0 No 30 mg, Memori a 6-30 Route: l 14:14: IVP, ONCE, Dosing Weight 54.233, kg, Priority: STAT, Start date: 11/15/15 9:14:00 CDT, Stop date: 11/15/15 9:14:00 CDT Sodium 2016-0 No 1,000 mL, Memori a Chloride 6-30 1,000 l 0.154 14:14: ml/hr, [place] MEQ/ML 00 Infuse Injectable Over: 1 Solution hr, Route: IV, ONCE, Priority: STAT, Dosing Weight 54.233 kg, Start date: 11/15/15 9:14:00 CDT, Duration: 1 doses or times, Stop date: 11/15/15 9:14:00 CDT Ketorolac 2016-0 No 30 mg, Memori a 6-30 Route: l 14:14: IVP, ONCE, Dosing Weight 54.233, kg, Priority: STAT, Start date: 11/15/15 9:14:00 CDT, Stop date: 11/15/15 9:14:00 CDT Sodium 2016-0 No 1,000 mL, Memori a Chloride 6-30 1,000 l 0.154 14:14: ml/hr, [place] MEQ/ML 00 Infuse Injectable Over: 1 Solution hr, Route: IV, ONCE, Priority: STAT, Dosing Weight 54.233 kg, Start date: 11/15/15 9:14:00 CDT, Duration: 1 doses or times, Stop date: 11/15/15 9:14:00 CDT Ketorolac 2016-0 No 30 mg, Memori a 6-30 Route: l 14:14: IVP, ONCE, [place] 00 Dosing Weight 54.233, kg, Priority: STAT, Start date: 11/15/15 9:14:00 CDT, Stop date: 11/15/15 9:14:00 CDT insulin 2014-05 No Notes: Memoria detemir 2-21 Same as l 15:00: Levemir Do not hold insulin without contacting prescriber "single patient use only" insulin 2014-05 No Notes: Memoria detemir 2-21 Same as l 15:00: Levemir Do 00 not hold insulin without contacting prescriber "single patient use only" insulin 2014-05 No Notes: Memoria detemir 2-21 Same as l 15:00: Levemir Do 00 not hold insulin without contacting prescriber "single patient use only" Humalog 100 2014-05 Yes 10 unit, Me moria units/mL 2-21 SUB-Q, l 14:34: TID-Before [place] 00 Meals, # 10 mL, 0 Refill(s) Humalog 100 2014-05 Yes 10 unit, Me moria units/mL 2-21 SUB-Q, l 14:34: TID-Before Randal 00 Meals, # 10 mL, 0 Refill(s) Humalog 100 2014-05 Yes 10 unit, Me moria units/mL 2-21 SUB-Q, l 14:34: TID-Before [place] 00 Meals, # 10 mL, 0 Refill(s) [...] SUB-Q, l detemir 100 14:06: Bedtime, # [place] UNT/ML 00 1 pen(s), Prefilled 3 Syringe Refill(s) [Levemir] insulin 2014-05 Yes 20 unit, Memori a detemir 100 2-21 SUB-Q, l units/mL 14:06: BID, # 100 Her maurer subcutaneou 00 mL, 0 s solution Refill(s) pantoprazol 2014-05 Yes 40 mg, Pietro kelli e 40 mg 2-21 IVP, l intravenous 14:06: Before Herm reynaldo injection 00 Dinner, 0 Refill(s) 3 ML 2014-05 No 10 [...] SUB-Q, l detemir 100 14:06: Bedtime, # [place] UNT/ML 00 1 pen(s), Prefilled 3 Syringe Refill(s) [Levemir] insulin 2014-05 Yes 20 unit, Memori a detemir 100 2-21 SUB-Q, l units/mL 14:06: BID, # 100 Her maurer subcutaneou 00 mL, 0 s solution Refill(s) pantoprazol 2014-05 Yes 40 mg, Pietro kelli e 40 mg 2-21 IVP, l intravenous 14:06: Before Herm reynaldo injection 00 Dinner, 0 Refill(s) 3 ML 2014-05 No 10 [...] SUB-Q, l detemir 100 14:06: Bedtime, # [place] UNT/ML 00 1 pen(s), Prefilled 3 Syringe [...] temperatur e. Expires in days from ____Date NovoLog 2014-05 No Notes: Memoria 2-21 Roll in l 13:30: palms of Randal 00 hands gently; Do not shake vigorously . (Same as: NovoLOG) "single patient use only" Stable for 28 days at room temperatur e. Expires in days from ____Date NovoLog 2014-05 No Notes: Memoria 2-21 Roll in l 13:30: palms of [place] 00 hands gently; Do not shake vigorously . (Same as: NovoLOG) "single patient use only" Stable for 28 days at room temperatur e. Expires in days from ____Date Miconazole 2014-05 No Notes: Memor ia Nitrate 100 2-21 (Same as: l MG Vaginal 03:00: Monistat-7 H ermann Suppository 00 ) For [Monistat] vaginal use only. Miconazole 2014-05 No Notes: Memor ia Nitrate 100 2-21 (Same as: l MG Vaginal 03:00: Monistat-7 H ermann Suppository 00 ) For [Monistat] vaginal use only. Miconazole 2014-05 No Notes: Memor ia Nitrate 100 2-21 (Same as: l MG Vaginal 03:00: Monistat-7 H ermann Suppository 00 ) For [Monistat] vaginal use only. insulin 2014-05 No Notes: Memoria detemir 2-20 Same as l 23:00: Levemir Do [place] 00 not hold insulin without contacting prescriber "single patient use only" insulin 2014-05 No Notes: Memoria detemir 2-20 Same as l 23:00: Levemir Do [place] 00 not hold insulin without contacting prescriber "single patient use only" insulin 2014-05 No Notes: Memoria detemir 2-20 Same as l 23:00: Levemir Do [place] 00 not hold insulin without contacting prescriber "single patient use only" NovoLog 2014-05 No Notes: Memoria 2-20 Roll in l 22:30: palms of [place] 00 hands gently; Do not shake vigorously . (Same as: NovoLOG) "single patient use only" Stable for 28 days at room temperatur e. Expires in days from ____Date NovoLog 2014-05 No Notes: Memoria 2-20 Roll in l 22:30: palms of [place] 00 hands gently; Do not shake vigorously . (Same as: NovoLOG) "single patient use only" Stable for 28 days at room temperatur e. Expires in days from ____Date NovoLog 2014-05 No Notes: Memoria 2-20 Roll in l 22:30: palms of [place] 00 hands gently; Do not shake vigorously . (Same as: NovoLOG) "single patient use only" Stable for 28 days at room temperatur e. Expires in days from ____Date Acetaminoph 2014-05 No Notes: Pietro kelli en 325 MG / 2-20 Same as l Hydrocodone 18:31: [place] Perlita nn Bitartrate 00 325-7.5mg 7.5 MG Oral Do not Tablet exceed [[place] 4gm/day of 7.5/325] acetaminop hen. Acetaminoph 2014-05 No Notes: Pietro kelli en 325 MG / 2-20 Same as l Hydrocodone 18:31: [place] Perlita nn Bitartrate 00 325-7.5mg 7.5 MG Oral Do not Tablet exceed [[place] 4gm/day of 7.5/325] acetaminop hen. Acetaminoph 2014-05 No Notes: Pietro kelli en 325 MG / 2-20 Same as l Hydrocodone 18:31: [place] Perlita nn Bitartrate 00 325-7.5mg 7.5 MG Oral Do not Tablet exceed [[place] 4gm/day of 7.5/325] acetaminop hen. NovoLog 2014-05 No Notes: Memoria 2-20 Roll in l 17:30: palms of R[place] 00 hands gently; Do not shake vigorously . (Same as: NovoLOG) "single patient use only" Stable for 28 days at room temperatur e. Expires in days from ____Date NovoLog 2014-05 No Notes: Memoria 2-20 Roll in l 17:30: palms of [place] 00 hands gently; Do not shake vigorously . (Same as: NovoLOG) "single patient use only" Stable for 28 days at room temperatur e. Expires in days from ____Date NovoLog 2014-05 No Notes: Memoria 2-20 Roll in l 17:30: palms of [place] 00 hands gently; Do not shake vigorously . (Same as: NovoLOG) "single patient use only" Stable for 28 days at room temperatur e. Expires in days from ____Date Levemir 2014-05 No Notes: Memoria 2-20 Same as l 15:48: Levemir Do [place] 00 not hold insulin without contacting prescriber "single patient use only" Levemir 2014-05 No Notes: Memoria 2-20 Same as l 15:48: Levemir Do [place] 00 not hold insulin without contacting prescriber "single patient use only" Levemir 2014-05 No Notes: Memoria 2-20 Same as l 15:48: Levemir Do [place] 00 not hold insulin without contacting prescriber "single patient use only" Insulin, 2014-05 No Notes: Memoria Aspart, 2-20 Roll in l Human 15:06: palms of [place] 00 hands gently; Do not shake vigorously . (Same as: NovoLOG) "single patient use only" Stable for 28 days at room temperatur e. Expires in days from ____Date Dextrose 2014-05 No 25 gm, 50 Pietro kelli 50% Syringe 2-20 mL, Route: l 15:06: IVP, Drug Randal 00 Form: INJ, Dosing Weight 55, kg, PRN, PRN Blood Glucose Results, Start date: 05/06/15 9:06:00, Duration: 30 day, Stop date: 06/05/15 9:05:00 Glucagon 2014-05 No 1 mg, Memoria 2-20 Route: IM, l 15:06: Drug form: [place] 00 PDR/INJ, PRN, Dosing Weight 55, kg, PRN Blood Glucose Results, Start date: 05/06/15 9:06:00, Duration: 30 day, Stop date: 06/05/15 9:05:00 Insulin, 2014-05 No Notes: Memoria Aspart, 2-20 Roll in l Human 15:06: palms of [place] 00 hands gently; Do not shake vigorously . (Same as: NovoLOG) "single patient use only" Stable for 28 days at room temperatur e. Expires in days from ____Date Dextrose 2014-05 No 25 gm, 50 Pietro kelli 50% Syringe 2-20 mL, Route: l 15:06: IVP, Drug Form: INJ, Dosing Weight 55, kg, PRN, PRN Blood Glucose Results, Start date: 05/06/15 9:06:00, Duration: 30 day, Stop date: 06/05/15 9:05:00 Glucagon 2014-05 No 1 mg, Memoria 2-20 Route: IM, l 15:06: Drug form: Randal 00 PDR/INJ, PRN, Dosing Weight 55, kg, PRN Blood Glucose Results, Start date: 05/06/15 9:06:00, Duration: 30 day, Stop date: 06/05/15 9:05:00 Insulin, 2014-05 No Notes: Memoria Aspart, 2-20 Roll in l Human 15:06: palms of Randal 00 hands gently; Do not shake vigorously . (Same as: NovoLOG) "single patient use only" Stable for 28 days at room temperatur e. Expires in days from ____Date Dextrose 2014-05 No 25 gm, 50 Pietro kelli 50% Syringe 2-20 mL, Route: l 15:06: IVP, Drug 00 Form: INJ, Dosing Weight 55, kg, PRN, PRN Blood Glucose Results, Start date: 05/06/15 9:06:00, Duration: 30 day, Stop date: 06/05/15 9:05:00 Glucagon 2014-05 No 1 mg, Memoria 2-20 Route: IM, l 15:06: Drug form: [place] 00 PDR/INJ, PRN, Dosing Weight 55, kg, PRN Blood Glucose Results, Start date: 05/06/15 9:06:00, Duration: 30 day, Stop date: 06/05/15 9:05:00 Levemir 2014-05 No Notes: Memoria 2-20 Same as l 13:57: Levemir Do [place] 00 not hold insulin without contacting prescriber "single patient use only" Levemir 2014-05 No Notes: Memoria 2-20 Same as l 13:57: Levemir Do [place] 00 not hold insulin without contacting prescriber "single patient use only" Levemir 2014-05 No Notes: Memoria 2-20 Same as l 13:57: Levemir Do [place] 00 not hold insulin without contacting prescriber "single patient use only" Morphine 2014-05 No Notes: Memoria 2-19 (Same l 23:42: as:MORPhin [place] 00 e Sulfate) Morphine 2014-05 No Notes: Memoria 2-19 (Same l 23:42: as:MORPhin [place] 00 e Sulfate) Morphine 2014-05 No Notes: Memoria 2-19 (Same l 23:42: as:MORPhin [place] 00 e Sulfate) potassium 2014-05 No Notes: Memori a phosphate + 2-19 (Same as: l Sodium 16:21: K [place] Chloride 00 Phosphate. 0.9% IV 250 ) 1 mMol mL phoshate has 1.47 mEq potassium Infuse over 4 hours potassium 2014-05 No Notes: Memori a phosphate + 2-19 (Same as: l Sodium 16:21: K [place] Chloride 00 Phosphate. 0.9% IV 250 ) 1 mMol mL phoshate has 1.47 mEq potassium Infuse over 4 hours potassium 2014-05 No Notes: Memori a phosphate + 2-19 (Same as: l Sodium 16:21: K [place] Chloride 00 Phosphate. 0.9% IV 250 ) 1 mMol mL phoshate has 1.47 mEq potassium Infuse over 4 hours Reglan 2014-05 No Notes: Memoria 2-19 (Same as: l 15:04: Reglan) [place] 00 Reglan 2014-05 No Notes: Memoria 2-19 (Same as: l 15:04: Reglan) [place] 00 Reglan 2014-05 No Notes: Memoria 2-19 (Same as: l 15:04: Reglan) Randal 00 Nystatin 2014-05 No Notes: Memoria 100 UNT/MG 2-19 (Same l Topical 15:00: as:Mycosta Herm reynaldo Powder 00 tin, Nilstat) For external use only. Nystatin 2014-05 No Notes: Memoria 100 UNT/MG 2-19 (Same l Topical 15:00: as:Mycosta Herm reynaldo Powder 00 tin, Nilstat) For external use only. Nystatin 2014-05 No Notes: Memoria 100 UNT/MG 2-19 (Same l Topical 15:00: as:Mycosta Herm reynaldo Powder 00 tin, Nilstat) For external use only. tramadol 2014-05 No Notes: Not Mem oria hydrochlori 2-19 to exceed l de 50 MG 14:35: 400mg/day. Her maurer Oral Tablet 00 (Same As: Ultram) tramadol 2014-05 No Notes: Not Mem oria hydrochlori 2-19 to exceed l de 50 MG 14:35: 400mg/day. Her maurer Oral Tablet 00 (Same As: Ultram) tramadol 2014-05 No Notes: Not Mem oria [...] Duration: 30 day, Stop date: 06/04/15 4:57:00 normal 2014-05 No 1,000 mL, Memori a saline 0.9% 2-19 Rate: 250 l IV 1,000 mL 10:58: ml/hr, Herm reynaldo 00 Infuse over: 4 hr, Route: IV, Dosing Weight 55 kg, Total Volume: 1,000, Start date: 05/05/15 4:58:00, Duration: 30 day, Stop date: 06/04/15 4:57:00 normal 2014-05 No 1,000 mL, Memori a saline 0.9% 2-19 Rate: 250 l IV 1,000 mL 10:58: ml/hr, Herm reynaldo 00 Infuse over: 4 hr, Route: IV, Dosing Weight 55 kg, Total Volume: 1,000, Start date: 05/05/15 4:58:00, Duration: 30 day, Stop date: 06/04/15 4:57:00 Morphine 2014-05 No Notes: Memoria 2-19 (Same l 10:26: as:MORPhin [place] 00 e Sulfate) Morphine 2014-05 No Notes: Memoria 2-19 (Same l 10:26: as:MORPhin [place] 00 e Sulfate) Morphine 2014-05 No Notes: Memoria 2-19 (Same l 10:26: as:MORPhin [place] 00 e Sulfate) potassium 2014-05 No Notes: Memori a chloride 2-19 (Same as: l 07:36: KCL) [place] 00 Infuse no faster than 10 mEq/hr [...] 2-19 Route: IM, l 07:36: Drug form: [place] 00 PDR/INJ, PRN, Dosing Weight 55, kg, PRN Blood Glucose Results, Start date: 05/05/15 1:36:00, Duration: 30 day, Stop date: 06/04/15 1:35:00 D5W 1/2NS 2014-05 No 1,000 mL, Mem oria 1,000 mL 2-19 Rate: 250 l 07:36: ml/hr, [place] 00 Infuse over: 4 hr, Route: IV, Dosing Weight 55 kg, Total Volume: 1,000, Start date: 05/05/15 1:36:00, Duration: 30 day, Stop date: 06/04/15 1:35:00 Dextrose 2014-05 No 25 gm, 50 Pietro kelli 50% Syringe 2-19 mL, Route: l 07:36: IVP, Drug [place] Form: INJ, Dosing Weight 55, kg, PRN, [...] doses or times, Stop date: 05/05/15 2:35:00 potassium 2014-05 No Notes: Memori a chloride 2-19 (Same as: l 07:36: KCL) Randal 00 Infuse no faster than 10 mEq/hr [...] 2-19 (Same as: l Sodium 07:36: K [place] Chloride 00 Phosphate. 0.9% IV 250 ) 1 mMol mL phoshate has 1.47 mEq potassium Infuse over 4 hours Glucagon 2014-05 No 1 mg, Memoria 2-19 Route: IM, l 07:36: Drug form: [place] 00 PDR/INJ, PRN, Dosing Weight 55, kg, PRN Blood Glucose Results, Start date: 05/05/15 1:36:00, Duration: 30 day, Stop date: 06/04/15 1:35:00 D5W 1/2NS 2014-05 No 1,000 mL, Mem oria 1,000 mL 2-19 Rate: 250 l 07:36: ml/hr, Randal 00 Infuse over: 4 hr, [...] doses or times, Stop date: 05/05/15 2:35:00 potassium 2014-05 No Notes: Memori a chloride 2-19 (Same as: l 07:36: KCL) [place] 00 Infuse no faster than 10 mEq/hr [...] 2-19 (Same as: l Sodium 07:36: K [place] Chloride 00 Phosphate. 0.9% IV 250 ) 1 mMol mL phoshate has 1.47 mEq potassium Infuse over 4 hours Glucagon 2014-05 No 1 mg, Memoria 2-19 Route: IM, l 07:36: Drug form: [place] 00 PDR/INJ, PRN, Dosing Weight 55, kg, PRN Blood Glucose Results, Start date: 05/05/15 1:36:00, Duration: 30 day, Stop date: 06/04/15 1:35:00 D5W 1/2NS 2014-05 No 1,000 mL, Mem oria 1,000 mL - Rate: 250 l 07:36: ml/hr, Randal 00 Infuse over: 4 hr, [...] 1:35:00 Insulin 2014-05 No Notes: Memoria (regular) -19 (Same as: l Titrate IV 07:36: Humulin R He rmann additive 00 and 100 unit + NovoLIN R) Sodium (Do not Chloride shake) 0.9% (titrate) 99 mL normal 2014-05 No 1,000 mL, Memori a saline 0.9% -19 Rate: l IV 1,000 mL 07:36: 1,000 Perlita nn 00 ml/hr, Infuse over: 1 hr, Route: IV, Dosing Weight 55 kg, Total Volume: 1,000, Start date: 05/05/15 1:36:00, Duration: 1 doses or times, Stop date: 05/05/15 2:35:00 Phenergan 2014-05 No 12.5 mg, Pietro kelli 2-19 50 mL, l 01:52: Route: [place] 00 IVPB, Drug form: SOLN, Q4H, Dosing Weight 56.364, kg, PRN Nausea & Vomiting, Start date: 05/04/15 19:52:00, Duration: 1 day, Stop date: 05/05/15 19:51:00 Phenergan 2014-05 No 12.5 mg, Pietro kelli 2-19 50 mL, l 01:52: Route: Randal 00 IVPB, Drug form: SOLN, Q4H, Dosing Weight 56.364, kg, PRN Nausea & Vomiting, Start date: 05/04/15 19:52:00, Duration: 1 day, Stop date: 05/05/15 19:51:00 Phenergan 2014-05 No 12.5 mg, Pietro kelli 2-19 50 mL, l 01:52: Route: [place] 00 IVPB, Drug form: SOLN, Q4H, Dosing Weight 56.364, kg, PRN Nausea & Vomiting, Start date: 05/04/15 19:52:00, Duration: 1 day, Stop date: 05/05/15 19:51:00 pantoprazol 2014-05 No Notes: For Memoria e 2-19 IV push l 01:49: reconstitu [place] 00 te with 10 ml 0.9% sodium chloride and push over 2 minutes. (Same as: Protonix) pantoprazol 2014-05 No Notes: For Memoria e 2-19 IV push l 01:49: reconstitu [place] 00 te with 10 ml 0.9% sodium chloride and push over 2 minutes. (Same as: Protonix) pantoprazol 2014-05 No Notes: For Memoria e 2-19 IV push l 01:49: reconstitu [place] 00 te with 10 ml 0.9% sodium chloride and push over 2 minutes. (Same as: Protonix) Insulin, 2014-05 No Notes: Memoria Aspart, 2-19 Roll in l Human 01:46: palms of [place] 00 hands gently; Do not shake vigorously . (Same as: NovoLOG) "single patient use only" Stable for 28 days at room temperatur e. Expires in days from ____Date Dextrose 2014-05 No 25 gm, 50 Pietro kelli 50% Syringe 2-19 mL, Route: l 01:46: IVP, Drug [place] 00 Form: INJ, Dosing Weight 56.364, kg, [...] 19:45:00 insulin 2014-05 No Notes: Memoria detemir 2-19 Same as l 01:46: Levemir Do not hold insulin without contacting prescriber "single patient use only" Insulin, 2014-05 No Notes: Memoria Aspart, 2-19 Roll in l Human 01:46: palms of [place] 00 hands gently; Do not shake vigorously . (Same as: NovoLOG) "single patient use only" Stable for 28 days at room temperatur e. Expires in days from ____Date Dextrose 2014-05 No 25 gm, 50 Pietro kelli 50% Syringe 2-19 mL, Route: l 01:46: IVP, Drug 00 Form: INJ, Dosing Weight 56.364, kg, [...] 19:45:00 insulin 2014-05 No Notes: Memoria detemir 2-19 Same as l 01:46: Levemir Do [place] 00 not hold insulin without contacting prescriber "single patient use only" Insulin, 2014-05 No Notes: Memoria Aspart, 2-19 Roll in l Human 01:46: palms of [place] 00 hands gently; Do not shake vigorously . (Same as: NovoLOG) "single patient use only" Stable for 28 days at room temperatur e. Expires in days from ____Date Dextrose 2014-05 No 25 gm, 50 Pietro kelli 50% Syringe 2-19 mL, Route: l 01:46: IVP, Drug [place] 00 Form: INJ, Dosing Weight 56.364, kg, PRN, PRN Blood Glucose Results, Start date: 05/04/15 19:46:00, Duration: 30 day, Stop date: 06/03/15 19:45:00 Glucagon 2014-05 No 1 mg, Memoria 07-06 Route: IM, l 01:46: Drug form: [place] 00 PDR/INJ, PRN, Dosing Weight 56.364, kg, PRN Blood Glucose Results, Start date: 05/04/15 19:46:00, Duration: 30 day, Stop date: 06/03/15 19:45:00 insulin 2014-05 No Notes: Memoria detemir 07-06 Same as l 01:46: Levemir Do [place] 00 not hold insulin without contacting prescriber "single patient use only" Acetaminoph 2014-05 No Notes: Do M emoria en - not exceed l 01:40: 4 gm/day. Randal 00 (Same as: Tylenol) Morphine 2014-05 No Notes: Memoria 2- (Same l 01:40: as:MORPhin [place] 00 e Sulfate) Acetaminoph 2014-05 No Notes: Do M emoria en - not exceed l 01:40: 4 gm/day. [place] 00 (Same as: Tylenol) Morphine 2014-05 No Notes: Memoria 2- (Same l 01:40: as:MORPhin [place] 00 e Sulfate) Acetaminoph 2014-05 No Notes: Do M emoria en - not exceed l 01:40: 4 gm/day. [place] 00 (Same as: Tylenol) Morphine 2014-05 No Notes: Memoria 2- (Same l 01:40: as:MORPhin [place] 00 e Sulfate) Morphine 2014-05 No Notes: Memoria 2-19 (Same l 00:05: as:MORPhin [place] 00 e Sulfate) Morphine 2014-05 No Notes: Memoria 2-19 (Same l 00:05: as:MORPhin [place] 00 e Sulfate) Morphine 2014-05 No Notes: Memoria 2-19 (Same l 00:05: as:MORPhin [place] 00 e Sulfate) Phenergan 2014-05 No 25 mg, 50 Mem oria 2-18 mL, Route: l 23:49: IVPB, Drug [place] 00 form: SOLN, ONCE, Dosing Weight 56.364, kg, Priority: STAT, Start date: 05/04/15 17:49:00, Stop date: 05/04/15 17:49:00 Phenergan 2014-05 No 25 mg, 50 Mem oria 2-18 mL, Route: l 23:49: IVPB, Drug [place] 00 form: SOLN, ONCE, Dosing Weight 56.364, kg, Priority: STAT, Start date: 05/04/15 17:49:00, Stop date: 05/04/15 17:49:00 Phenergan 2014-05 No 25 mg, 50 Mem oria 2-18 mL, Route: l 23:49: IVPB, Drug [place] 00 form: SOLN, ONCE, Dosing Weight 56.364, kg, Priority: STAT, Start date: 05/04/15 17:49:00, Stop date: 05/04/15 17:49:00 Insulin 2014-05 No 60 units) Pietro kelli regular 2-18 Stable for l 23:34: 28 days at [place] 00 room temperatur e Expires in days from ____Date Insulin 2014-05 No 60 units) Pietro kelli regular 2-18 Stable for l 23:34: 28 days at [place] 00 room temperatur e Expires in days from ____Date Insulin 2014-05 No 60 units) Pietro kelli regular 2-18 Stable for l 23:34: 28 days at [place] 00 room temperatur e Expires in days from ____Date Sodium 2014-05 No 2,000 mL, Memori a Chloride 2-18 2000 l 0.154 22:44: ml/hr, [place] MEQ/ML 00 Infuse Injectable Over: 1 Solution hr, Route: IV, 2,000, Drug form: INJ, ONCE, Priority: STAT, Dosing Weight 56.364 kg, Start date: 05/04/15 16:44:00, Duration: 1 doses or times, Stop date: 05/04/15 16:44:00 Sodium 2014-05 No 2,000 mL, Memori a Chloride 2-18 2000 l 0.154 22:44: ml/hr, [place] MEQ/ML 00 Infuse Injectable Over: 1 Solution hr, Route: IV, 2,000, Drug form: INJ, ONCE, Priority: STAT, Dosing Weight 56.364 kg, Start date: 05/04/15 16:44:00, Duration: 1 doses or times, Stop date: 05/04/15 16:44:00 Sodium 2014-05 No 2,000 mL, Memori a Chloride 2-18 2000 l 0.154 22:44: ml/hr, [place] MEQ/ML 00 Infuse Injectable Over: [...] Chloride 2-18 1,000 l 0.154 20:31: ml/hr, [place] MEQ/ML 00 Infuse Injectable Over: 1 Solution hr, Route: IV, 1,000, Drug form: INJ, ONCE, Priority: STAT, Dosing Weight 56.051 kg, Start date: 05/04/15 14:31:00, Duration: 1 doses or times, Stop date: 05/04/15 14:31:00 Saline 2014-05 No Notes: Memoria Flush 0.9% 2-18 (Same as: l 20:31: BD [place] 00 Posiflush) Dextrose 2014-05 No 25 gm, 50 Pietro kelli 50% Syringe 2-18 mL, Route: l 20:31: IVP, Drug [place] 00 Form: INJ, Dosing Weight 56.051, kg, PRN, PRN Blood Glucose Results, Start date: 05/04/15 14:31:00, Duration: 30 day, Stop date: 06/03/15 14:30:00 Glucagon 2014-05 No 1 mg, Memoria 2-18 Route: IM, l 20:31: Drug form: [place] 00 PDR/INJ, PRN, Dosing Weight 56.051, kg, [...] 0.9% 2-18 (Same as: l 20:31: BD [place] 00 Posiflush) Dextrose 2014-05 No 25 gm, 50 Pietro kelli 50% Syringe 2-18 mL, Route: l 20:31: IVP, Drug [place] 00 Form: INJ, Dosing Weight 56.051, kg, PRN, PRN Blood Glucose Results, Start date: 05/04/15 14:31:00, Duration: 30 day, Stop date: 06/03/15 14:30:00 Glucagon 2014-05 No 1 mg, Memoria 2-18 Route: IM, l 20:31: Drug form: [place] 00 PDR/INJ, PRN, Dosing Weight 56.051, kg, [...] 0.9% 2-18 (Same as: l 20:31: BD [place] 00 Posiflush) Dextrose 2014-05 No 25 gm, 50 Pietro kelli 50% Syringe 2-18 mL, Route: l 20:31: IVP, Drug [place] 00 Form: INJ, Dosing Weight 56.051, kg, PRN, PRN Blood Glucose Results, Start date: 05/04/15 14:31:00, Duration: 30 day, Stop date: 06/03/15 14:30:00 lidocaine 2014-05 Yes Notes: Memori a 1% 1-11 Preservati l 20:11: ve free. Randal 00 (Same as: Xylocaine MPF) lidocaine 2014-05 Yes Notes: Memori a 1% 1-11 Preservati l 20:11: ve free. [place] 00 (Same as: Xylocaine MPF) lidocaine 2014-05 Yes Notes: Memori a 1% 1-11 Preservati l 20:11: ve free. [place] 00 (Same as: Xylocaine MPF) NovoLog No Notes: Memoria 8-07 Roll in l 02:00: palms of [place] 00 hands gently; Do not shake vigorously . (Same as: NovoLOG) "single patient use only" Stable for 28 days at room temperatur e. Expires in days from ____Date NovoLog No Notes: Memoria 8-07 Roll in l 02:00: palms of [place] 00 hands gently; Do not shake vigorously . (Same as: NovoLOG) "single patient use only" Stable for 28 days at room temperatur e. Expires in days from ____Date NovoLog No Notes: Memoria 807 Roll in l 02:00: palms of [place] 00 hands gently; Do not shake vigorously . (Same as: NovoLOG) "single patient use only" Stable for 28 days at room temperatur e. Expires in days from ____Date Metoclopram Yes 10 mg = 1 M emoria mark 10 MG 8-06 tab, PO, l Oral Tablet 15:27: QID-Before Randal [Reglan] 00 Meals, PRN nausea and vomiting, X 14 day, # 56 tab, 0 Refill(s) Metoclopram Yes 10 mg = 1 M emoria mark 10 MG 8-06 tab, PO, l Oral Tablet 15:27: QID-Before [place] [Reglan] 00 Meals, PRN nausea and vomiting, X 14 day, # 56 tab, 0 Refill(s) Metoclopram Yes 10 mg = 1 M emoria mark 10 MG 8-06 tab, PO, l Oral Tablet 15:27: QID-Before [place] [Reglan] 00 Meals, PRN nausea and vomiting, X 14 day, # 56 tab, 0 Refill(s) Humalog 100 Yes Special Mem oria units/mL 806 Instructio l 15:26: ns: Inject [place] 00 as directed before breakfast, lunch, and dinner. Do not take at bedtime unless instructed by your doctor. Humalog 100 Yes Special Mem oria units/mL 806 Instructio l 15:26: ns: Inject [place] 00 as directed before breakfast, lunch, and dinner. Do not take at bedtime unless instructed by your doctor. Humalog 100 Yes Special Mem oria units/mL 806 Instructio l 15:26: ns: Inject [place] 00 as directed before breakfast, lunch, and dinner. Do not take at bedtime unless instructed by your doctor. Insulin Yes 35 unit, Memori a Glargine 806 SUB-Q, l 100 UNT/ML 15:24: Bedtime, # H ermann Injectable 00 10 mL, 0 Solution Refill(s) [Lantus] Insulin Yes 35 unit, Memori a Glargine 06 SUB-Q, l 100 UNT/ML 15:24: Bedtime, # H ermann Injectable 00 10 mL, 0 Solution Refill(s) [Lantus] Insulin Yes 35 unit, Memori a Glargine 06 SUB-Q, l 100 UNT/ML 15:24: Bedtime, # H ermann Injectable 00 10 mL, 0 Solution Refill(s) [Lantus] Levemir No Notes: Memoria 12-21 Same as l 02:00: Levemir Do [place] not hold insulin without contacting prescriber "single patient use only" Levemir No Notes: Memoria 12-21 Same as l 02:00: Levemir Do [place] 00 not hold insulin without contacting prescriber "single patient use only" Levemir No Notes: Memoria 12-21 Same as l 02:00: Levemir Do [place] 00 not hold insulin without contacting prescriber "single patient use only" Insulin, No Notes: Memoria Aspart, 12-21 Roll in l Human 00:50: palms of [place] 00 hands gently; Do not shake vigorously . (Same as: NovoLOG) "single patient use only" Stable for 28 days at room temperatur e. Expires in days from ____Date Dextrose No 12.5 gm, Memor ia 50% Syringe 12-21 25 mL, l 00:50: Route: [place] IVP, Drug Form: INJ, Dosing Weight 59.002, kg, PRN, PRN Blood Glucose Results, Start date: 12/20/14 19:50:00, Duration: 30 day, Stop date: 01/19/15 19:49:00 Glucagon No 1 mg, Memoria 12-21 Route: IM, l 00:50: Drug form: [place] PDR/INJ, PRN, Dosing Weight 59.002, kg, PRN Blood Glucose Results, Start date: 12/20/14 19:50:00, Duration: 30 day, Stop date: 01/19/15 19:49:00 Insulin, 2014-0 No Notes: Memoria Aspart, 8- Roll in l Human 00:50: palms of [place] 00 hands gently; Do not shake vigorously . (Same as: NovoLOG) "single patient use only" Stable for 28 days at room temperatur e. Expires in days from ____Date Dextrose 2014-0 No 12.5 gm, Memor ia 50% Syringe 12-21 25 mL, l 00:50: Route: [place] 00 IVP, Drug Form: INJ, Dosing Weight 59.002, kg, PRN, PRN Blood Glucose Results, Start date: 12/20/14 19:50:00, Duration: 30 day, Stop date: 01/19/15 19:49:00 Glucagon 0 No 1 mg, Memoria 12-21 Route: IM, l 00:50: Drug form: [place] 00 PDR/INJ, PRN, Dosing Weight 59.002, kg, PRN Blood Glucose Results, Start date: 12/20/14 19:50:00, Duration: 30 day, Stop date: 01/19/15 19:49:00 Insulin, 2014-0 No Notes: Memoria Aspart, - Roll in l Human 00:50: palms of [place] 00 hands gently; Do not shake vigorously . (Same as: NovoLOG) "single patient use only" Stable for 28 days at room temperatur e. Expires in days from ____Date Dextrose 2014-0 No 12.5 gm, Memor ia 50% Syringe 12-21 25 mL, l 00:50: Route: [place] 00 IVP, Drug Form: INJ, Dosing Weight 59.002, kg, PRN, PRN Blood Glucose Results, Start date: 12/20/14 19:50:00, Duration: 30 day, Stop date: 01/19/15 19:49:00 Glucagon 2014-0 No 1 mg, Memoria 12-21 Route: IM, l 00:50: Drug form: [place] 00 PDR/INJ, PRN, Dosing Weight 59.002, kg, PRN Blood Glucose Results, Start date: 12/20/14 19:50:00, Duration: 30 day, Stop date: 01/19/15 19:49:00 Phenergan 2015-0 No 12.5 mg, Pietro kelli 8-05 50 mL, l 18:09: Route: [place] 00 IVPB, Drug form: SOLN, Q4H, Dosing Weight 59.002, kg, PRN Nausea & Vomiting, Start date: 12/20/14 13:09:00, Duration: 30 day, Stop date: 01/19/15 13:08:00 Phenergan 2015-0 No 12.5 mg, Pietro kelli 8-05 50 mL, l 18:09: Route: [place] 00 IVPB, Drug form: SOLN, Q4H, Dosing Weight 59.002, kg, PRN Nausea & Vomiting, Start date: 12/20/14 13:09:00, Duration: 30 day, Stop date: 01/19/15 13:08:00 Phenergan 2015-0 No 12.5 mg, Pietro kelli 8-05 50 mL, l 18:09: Route: [place] 00 IVPB, Drug form: SOLN, Q4H, Dosing Weight 59.002, kg, PRN Nausea & Vomiting, Start date: 12/20/14 13:09:00, Duration: 30 day, Stop date: 01/19/15 13:08:00 Levemir 2015-0 No Notes: Memoria 8-05 Same as l 17:48: Levemir Do [place] 00 not hold insulin without contacting prescriber "single patient use only" Levemir 2015-0 No Notes: Memoria 8-05 Same as l 17:48: Levemir Do [place] 00 not hold insulin without contacting prescriber "single patient use only" Levemir 2015-0 No Notes: Memoria 8-05 Same as l 17:48: Levemir Do [place] 00 not hold insulin without contacting prescriber "single patient use only" Calcium 2015-0 No 3 gm, 30 Memori a Gluconate 8-05 mL, Route: l 14:18: IVPB, PRN, [place] 00 Dosing Weight 59.002, kg, PRN Abnormal Lab Result, For NON-ICU Patients Only., Start date: 12/20/14 9:18:00, Duration: 30 day, Stop date: 01/19/15 9:17:00 Magnesium No 2 gm, 50 Pietro kelli Sulfate 8-05 mL, Route: l 14:18: IVPB, Drug [place] 00 form: INJ, PRN, Dosing Weight 59.002, kg, PRN Abnormal Lab Result, For NON-ICU Patients Only., Start date: 12/20/14 9:18:00, Duration: 30 day, Stop date: 01/19/15 9:17:00 Magnesium No Notes: Memori a Oxide 8-05 (Same as: l 14:18: Mag-Ox [place] 00 400) Magnesium oxide 463pk=125a g elemental magnesium Dose=____m g magnesium oxide (___mg elemental magnesium) sodium No 30 mmol, Memoria phosphate + 8-05 10 mL, l Sodium 14:18: Route: [place] Chloride 00 IVPB, PRN, 0.9% IV 250 [...] 8-05 (Same as: l Sodium 14:18: K [place] Chloride 00 Phosphate. 0.9% IV 250 ) 1 mMol mL phoshate has 1.47 mEq potassium Infuse over 4 hours Calcium 2015 No 3 gm, 30 Memori a Gluconate 8-05 mL, Route: l 14:18: IVPB, PRN, [place] 00 Dosing Weight 59.002, kg, PRN Abnormal Lab Result, For NON-ICU Patients Only., Start date: 12/20/14 9:18:00, Duration: 30 day, Stop date: 01/19/15 9:17:00 Magnesium No 2 gm, 50 Pietro kelli Sulfate 8-05 mL, Route: l 14:18: IVPB, Drug [place] 00 form: INJ, PRN, Dosing Weight 59.002, kg, PRN Abnormal Lab Result, For NON-ICU Patients Only., Start date: 12/20/14 9:18:00, Duration: 30 day, Stop date: 01/19/15 9:17:00 Magnesium No Notes: Memori a Oxide 8-05 (Same as: l 14:18: Mag-Ox [place] 00 400) Magnesium oxide 359cu=377i g elemental magnesium Dose=____m g magnesium oxide (___mg elemental magnesium) sodium No 30 mmol, Memoria phosphate + 8-05 10 mL, l Sodium 14:18: Route: [place] Chloride 00 IVPB, PRN, 0.9% IV 250 [...] Infuse at l 14:18: a rate of [place] 00 10 mEq/hr. (Same as: KCL) potassium No Notes: Memori a phosphate + 8-05 (Same as: l Sodium 14:18: K [place] Chloride 00 Phosphate. 0.9% IV 250 ) 1 mMol mL phoshate has 1.47 mEq potassium Infuse over 4 hours Calcium 2015 No 3 gm, 30 Memori a Gluconate 8-05 mL, Route: l 14:18: IVPB, PRN, [place] 00 Dosing Weight 59.002, kg, PRN Abnormal Lab Result, For NON-ICU Patients Only., Start date: 12/20/14 9:18:00, Duration: 30 day, Stop date: 01/19/15 9:17:00 Magnesium No 2 gm, 50 Pietro kelli Sulfate 8-05 mL, Route: l 14:18: IVPB, Drug [place] 00 form: INJ, PRN, Dosing Weight 59.002, kg, PRN Abnormal Lab Result, For NON-ICU Patients Only., Start date: 12/20/14 9:18:00, Duration: 30 day, Stop date: 01/19/15 9:17:00 Magnesium No Notes: Memori a Oxide 8-05 (Same as: l 14:18: Mag-Ox [place] 00 400) Magnesium oxide 203wl=135m g elemental magnesium Dose=____m g magnesium oxide (___mg elemental magnesium) sodium No 30 mmol, Memoria phosphate + 8-05 10 mL, l Sodium 14:18: Route: [place] Chloride 00 IVPB, PRN, 0.9% IV 250 [...] 8-05 (Same as: l Sodium 14:18: K [place] Chloride 00 Phosphate. 0.9% IV 250 ) 1 mMol mL phoshate has 1.47 mEq potassium Infuse over 4 hours POLYETHYLEN No Notes: Pietro kelli E GLYCOL 8-05 Dissolve l 3350 14:00: in 8 oz of [place] 00 water or juice. (Same as: Miralax) Docusate No Notes: Memoria 8-05 (Same as: l 14:00: Colace) [place]andal (Do Not Crush) POLYETHYLEN No Notes: Pietro kelli E GLYCOL 8-05 Dissolve l 3350 14:00: in 8 oz of [place] 00 water or juice. (Same as: Miralax) Docusate No Notes: Memoria 8-05 (Same as: l 14:00: Colace) [place] (Do Not Crush) POLYETHYLEN No Notes: Pietro kelli E GLYCOL 8-05 Dissolve l 3350 14:00: in 8 oz of [place] 00 water or juice. (Same as: Miralax) Docusate No Notes: Memoria 8-05 (Same as: l 14:00: Colace) [place] (Do Not Crush) Reglan No Notes: Memoria 8-05 (Same as: l 09:00: Reglan) [place] 00 Reglan No Notes: Memoria 8-05 (Same as: l 09:00: Reglan) [place] Reglan No Notes: Memoria 8-05 (Same as: l 09:00: Reglan) [place] Reglan No Notes: Memoria 8-05 (Same as: l 02:48: Reglan) [place] Reglan No Notes: Memoria 8-05 (Same as: l 02:48: Reglan) [place] Reglan No Notes: Memoria 8-05 (Same as: l 02:48: Reglan) Dextrose No 25 gm, 50 Pietro kelli 50% Syringe 8-05 mL, Route: l 01:01: IVP, Drug Form: INJ, Dosing Weight 57.273, kg, PRN, PRN Blood Glucose Results, Start date: 12/19/14 20:01:00, Duration: 30 day, Stop date: 01/18/15 20:00:00 Insulin No Notes: Memoria regular 100 8-05 (Same as: l unit + 01:01: Humulin R Booker n Sodium 00 and Chloride NovoLIN R) 0.9% (Do not (titrate) shake) 99 mL Dextrose No 25 gm, 50 Pietro kelli 50% Syringe 8-05 mL, Route: l 01:01: IVP, Drug [place] 00 Form: INJ, Dosing Weight 57.273, kg, PRN, PRN Blood Glucose Results, Start date: 12/19/14 20:01:00, Duration: 30 day, Stop date: 01/18/15 20:00:00 Insulin No Notes: Memoria regular 100 8-05 (Same as: l unit + 01:01: Humulin R Booker n Sodium 00 and Chloride NovoLIN R) 0.9% (Do not (titrate) shake) 99 mL Dextrose No 25 gm, 50 Pietro kelli 50% Syringe 8-05 mL, Route: l 01:01: IVP, Drug [place] 00 Form: INJ, Dosing Weight 57.273, kg, PRN, PRN Blood Glucose Results, Start date: 12/19/14 20:01:00, Duration: 30 day, Stop date: 01/18/15 20:00:00 Insulin No Notes: Memoria regular 100 -05 (Same as: l unit + 01:01: Humulin R Booker n Sodium 00 and Chloride NovoLIN R) 0.9% (Do not (titrate) shake) 99 mL Glucose 50 No 1,000 mL, Me moria MG/ML / 12-20 Rate: 125 l Sodium 00:17: ml/hr, [place] Chloride 00 Infuse 0.0769 over: 8 MEQ/ML hr, Route: Injectable IV, Dosing Solution Weight 57.273 kg, Total Volume: 1,000, Start date: 12/19/14 19:17:00, Duration: 30 day, Stop date: 01/18/15 19:16:00 Acetaminoph No Notes: Pietro kelli en 325 MG / 12-20 (Same as: l Hydrocodone 00:17: [place] Perlita nn Bitartrate 00 325/5) Do 5 MG Oral not exceed Tablet 4gm/day of acetaminop hen. Acetaminoph No Notes: Do M emoria en 12-20 not exceed l 00:17: 4 gm/day. [place] 00 (Same as: Tylenol) Ondansetron No Notes: Pietro kelli 12-20 (Same as: l 00:17: Zofran) [place] 00 MEDICATION WASTE Product Size: 4 mg Product Waste : 0 mg Docusate No Notes: Memoria 12-20 (Same as: l 00:17: Colace) [place] 00 (Do Not Crush) D5NS + KCL No Notes: Memor ia 20mEq/L 12-20 PREMIX IV l 1000ml 00:17: - Do Not [place] (Premix) 00 Alter 1,000 mL Saline No Notes: Memoria Flush 0.9% 12-20 (Same as: l 00:17: BD [place] 00 Posiflush) Al No Notes: Memoria hydroxide/M 12-20 (aluminum l g 00:17: hydroxide- [place] hydroxide/s 00 magnesium imethicone hyd-simeth 200 mg-200 icone mg-20 mg/5 200-200-20 mL oral mg/5ml 30 suspension ml ud PADMAJA) Diphenhydra No Notes: Pietro kelli mine 12-20 (Same as: l 00:17: Benadryl) [place] 00 Morphine No Notes: Memoria 12-20 (Same l 00:17: as:MORPhin [place] 00 e Sulfate) Oxycodone No Notes: Memori a Hydrochlori 12-20 (Same as: l de 5 MG 00:17: Roxicodone Herm reynaldo Oral Tablet 00 ) Glucose 50 No 1,000 mL, Me moria MG/ML / 12-20 Rate: 125 l Sodium 00:17: ml/hr, [place] Chloride 00 Infuse 0.0769 over: 8 MEQ/ML hr, Route: Injectable IV, Dosing Solution Weight 57.273 kg, Total Volume: 1,000, Start date: 12/19/14 19:17:00, Duration: 30 day, Stop date: 01/18/15 19:16:00 Acetaminoph No Notes: Pietro kelli en 325 MG / 12-20 (Same as: l Hydrocodone 00:17: [place] Perlita nn Bitartrate 00 325/5) Do 5 [...] Memoria 12-20 (Same as: l 00:17: Colace) [place] 00 (Do Not Crush) D5NS + KCL No Notes: Memor ia 20mEq/L 12-20 PREMIX IV l 1000ml 00:17: - Do Not [place] (Premix) 00 Alter 1,000 mL Saline No Notes: Memoria Flush 0.9% 12-20 (Same as: l 00:17: BD [place] 00 Posiflush) Al No Notes: Memoria hydroxide/M 12-20 (aluminum l g 00:17: hydroxide- [place] hydroxide/s 00 magnesium imethicone hyd-simeth 200 mg-200 icone mg-20 mg/5 200-200-20 mL oral mg/5ml 30 suspension ml ud PADMAJA) Diphenhydra No Notes: Pietro kelli mine 12-20 (Same as: l 00:17: Benadryl) [place] 00 Morphine No Notes: Memoria 12-20 (Same l 00:17: as:MORPhin [place] 00 e Sulfate) Oxycodone No Notes: Memori a Hydrochlori 12-20 (Same as: l de 5 MG 00:17: Roxicodone Herm reynaldo Oral Tablet 00 ) Glucose 50 No 1,000 mL, Me moria MG/ML / 12-20 Rate: 125 l Sodium 00:17: ml/hr, [place] Chloride 00 Infuse 0.0769 over: 8 MEQ/ML hr, Route: Injectable IV, Dosing Solution Weight 57.273 kg, Total Volume: 1,000, Start date: 12/19/14 19:17:00, Duration: 30 day, Stop date: 01/18/15 19:16:00 Acetaminoph No Notes: Pietro kelli en 325 MG / 12-20 (Same as: l Hydrocodone 00:17: [place] Perlita nn Bitartrate 00 325/5) Do 5 MG Oral not exceed Tablet 4gm/day of acetaminop hen. Acetaminoph No Notes: Do M emoria en 12-20 not exceed l 00:17: 4 gm/day. [place] 00 (Same as: Tylenol) Ondansetron No Notes: Pietro kelli 12-20 (Same as: l 00:17: Zofran) [place] 00 MEDICATION WASTE Product Size: 4 mg Product Waste : 0 mg Docusate No Notes: Memoria 12-20 (Same as: l 00:17: Colace) [place] 00 (Do Not Crush) D5NS + KCL No Notes: Memor ia 20mEq/L 12-20 PREMIX IV l 1000ml 00:17: - Do Not [place] (Premix) 00 Alter 1,000 mL Saline No Notes: Memoria Flush 0.9% 12-20 (Same as: l 00:17: BD [place] 00 Posiflush) Al No Notes: Memoria hydroxide/M 12-20 (aluminum l g 00:17: hydroxide- [place] hydroxide/s 00 magnesium imethicone hyd-simeth 200 mg-200 icone mg-20 mg/5 200-200-20 mL oral mg/5ml 30 suspension ml ud PADMAJA) Diphenhydra No Notes: Pietro kelli mine 12-20 (Same as: l 00:17: Benadryl) [place] 00 Morphine No Notes: Memoria 12-20 (Same l 00:17: as:MORPhin [place] 00 e Sulfate) Oxycodone No Notes: Memori a Hydrochlori 12-20 (Same as: l de 5 MG 00:17: Roxicodone Herm reynaldo Oral Tablet 00 ) Sodium No 1,000 mL, Memori a Chloride 12-19 Rate: 150 l 0.154 23:54: ml/hr, [place] MEQ/ML 00 Infuse Injectable over: 6.7 Solution hr, Route: IV, Dosing Weight 57.273 kg, Total Volume: 1,000, Start date: 12/19/14 18:54:00, Duration: 30 day, Stop date: 01/18/15 18:53:00 Sodium 2015-0 No 1,000 mL, Memori a Chloride 8- Rate: 150 l 0.154 23:54: ml/hr, [place] MEQ/ML 00 Infuse Injectable over: 6.7 Solution hr, Route: IV, Dosing Weight 57.273 kg, Total Volume: 1,000, Start date: 12/19/14 18:54:00, Duration: 30 day, Stop date: 01/18/15 18:53:00 Sodium 2015-0 No 1,000 mL, Memori a Chloride 8- Rate: 150 l 0.154 23:54: ml/hr, [place] MEQ/ML 00 Infuse Injectable over: 6.7 Solution hr, Route: IV, Dosing Weight 57.273 kg, Total Volume: 1,000, Start date: 12/19/14 18:54:00, Duration: 30 day, Stop date: 01/18/15 18:53:00 1/2 NS 1000 2014-0 No 1,000 mL, M emoria mL 8- Rate: 150 l 23:53: ml/hr, Randal 00 Infuse over: 6.7 hr, Route: IV, Dosing Weight 57.273 kg, Total Volume: 1,000, Start date: 12/19/14 18:53:00, Duration: 30 day, Stop date: 01/18/15 18:52:00 1/2 NS 1000 2014-0 No 1,000 mL, M emoria mL 8- Rate: 150 l 23:53: ml/hr, Randal 00 Infuse over: 6.7 hr, Route: IV, Dosing Weight 57.273 kg, Total Volume: 1,000, Start date: 12/19/14 18:53:00, Duration: 30 day, Stop date: 01/18/15 18:52:00 1/2 NS 1000 2014-0 No 1,000 mL, M emoria mL 8- Rate: 150 l 23:53: ml/hr, Randal 00 Infuse over: 6.7 hr, Route: IV, Dosing Weight 57.273 kg, Total Volume: 1,000, Start date: 12/19/14 18:53:00, Duration: 30 day, Stop date: 01/18/15 18:52:00 Insulin 2014-0 No Notes: Memoria regular 100 12-19 (Same as: l unit + NS 22:43: Humulin R Her maurer 99 mL 00 and NovoLIN R) (Do not shake) Insulin No Notes: Memoria regular 100 - (Same as: l unit + NS 22:43: Humulin R Her maurer 99 mL 00 and NovoLIN R) (Do not shake) Insulin No Notes: Memoria regular 100 12-19 (Same as: l unit + NS 22:43: Humulin R Her maurer 99 mL 00 and NovoLIN R) (Do not shake) Morphine No Notes: Memoria 12-19 (Same l 20:38: as:MORPhin [place] 00 e Sulfate) Protonix No Notes: For Mem oria 12-19 IV push l 20:38: reconstitu Randal 00 te with 10 ml 0.9% sodium chloride and push over 2 minutes. (Same as: Protonix) Morphine No Notes: Memoria 12-19 (Same l 20:38: as:MORPhin [place] 00 e Sulfate) Protonix No Notes: For Mem oria 12-19 IV push l 20:38: reconstitu [place] 00 te with 10 ml 0.9% sodium chloride and push over 2 minutes. (Same as: Protonix) Morphine No Notes: Memoria 12-19 (Same l 20:38: as:MORPhin [place] 00 e Sulfate) Protonix No Notes: For Mem oria 12-19 IV push l 20:38: reconstitu Randal 00 te with 10 ml 0.9% sodium chloride and push over 2 minutes. (Same as: Protonix) Dextrose No 12.5 gm, Memor ia 50% Syringe 12-19 25 mL, l 20:20: Route: [place] 00 IVP, Drug Form: INJ, Dosing Weight 57.273, kg, PRN, PRN Blood Glucose Results, Start date: 12/19/14 15:20:00, Duration: 30 day, Stop date: 01/18/15 15:19:00 Glucagon No 1 mg, Memoria 12-19 Route: IM, l 20:20: Drug form: Randal 00 PDR/INJ, PRN, Dosing Weight 57.273, kg, PRN Blood Glucose Results, Start date: 12/19/14 15:20:00, Duration: 30 day, Stop date: 01/18/15 15:19:00 Sodium 2015-0 No 1,000 mL, Memori a Chloride 8-04 1,000 l 0.154 20:20: ml/hr, Randal MEQ/ML 00 Infuse Injectable Over: 1 Solution hr, Route: IV, 1,000, Drug form: INJ, ONCE, Priority: STAT, Dosing Weight 57.273 kg, Start date: 12/19/14 15:20:00, Duration: 1 doses or times, Stop date: 12/19/14 15:20:00 Saline 2015-0 No Notes: Memoria Flush 0.9% 12-19 (Same as: l 20:20: BD Randal 00 Posiflush) Phenergan 2015-0 No 25 mg, 50 Mem oria 8-04 mL, Route: l 20:20: IVPB, Drug form: SOLN, ONCE, Dosing Weight 57.273, kg, Priority: STAT, Start date: 12/19/14 15:20:00, Stop date: 12/19/14 15:20:00 Dextrose 2015-0 No 12.5 gm, Memor ia 50% Syringe - 25 mL, l 20:20: Route: [place] 00 IVP, Drug Form: INJ, Dosing Weight 57.273, kg, PRN, PRN Blood Glucose Results, Start date: 12/19/14 15:20:00, Duration: 30 day, Stop date: 01/18/15 15:19:00 Glucagon 2015-0 No 1 mg, Memoria -04 Route: IM, l 20:20: Drug form: Randal 00 PDR/INJ, PRN, Dosing Weight 57.273, kg, PRN Blood Glucose Results, Start date: 12/19/14 15:20:00, Duration: 30 day, Stop date: 01/18/15 15:19:00 Sodium 2015-0 No 1,000 mL, Memori a Chloride 8-04 1,000 l 0.154 20:20: ml/hr, [place] MEQ/ML 00 Infuse Injectable Over: 1 Solution hr, Route: IV, 1,000, Drug form: INJ, ONCE, Priority: STAT, Dosing Weight 57.273 kg, Start date: 12/19/14 15:20:00, Duration: 1 doses or times, Stop date: 12/19/14 15:20:00 Saline 2014-0 No Notes: Memoria Flush 0.9% - (Same as: l 20:20: BD [place] Posiflush) Phenergan 0 No 25 mg, 50 Mem oria 8-04 mL, Route: l 20:20: IVPB, Drug [place] 00 form: SOLN, ONCE, Dosing Weight 57.273, kg, Priority: STAT, Start date: 12/19/14 15:20:00, Stop date: 12/19/14 15:20:00 Dextrose No 12.5 gm, Memor ia 50% Syringe 12-19 25 mL, l 20:20: Route: Randal 00 IVP, Drug Form: INJ, Dosing Weight 57.273, kg, PRN, PRN Blood Glucose Results, Start date: 12/19/14 15:20:00, Duration: 30 day, Stop date: 01/18/15 15:19:00 Glucagon No 1 mg, Memoria 8-04 Route: IM, l 20:20: Drug form: Randal 00 PDR/INJ, PRN, Dosing Weight 57.273, kg, PRN Blood Glucose Results, Start date: 12/19/14 15:20:00, Duration: 30 day, Stop date: 01/18/15 15:19:00 Sodium 2015-0 No 1,000 mL, Memori a Chloride 8- 1,000 l 0.154 20:20: ml/hr, Randal MEQ/ML 00 Infuse Injectable Over: 1 Solution hr, Route: IV, 1,000, Drug form: INJ, ONCE, Priority: STAT, Dosing Weight 57.273 kg, Start date: 12/19/14 15:20:00, Duration: 1 doses or times, Stop date: 12/19/14 15:20:00 Saline 2014-0 No Notes: Mem[facility] Flush 0.9% - (Same as: l 20:20: BD [place] Posiflush) Phenergan 0 No 25 mg, 50 Mem oria 8-04 mL, Route: l 20:20: IVPB, Drug [place] 00 form: SOLN, ONCE, Dosing Weight 57.273, kg, Priority: STAT, Start date: 12/19/14 15:20:00, Stop date: 12/19/14 15:20:00 promethazin 2014-0 Yes 25 mg = 1 M emoria e 25 mg 5-27 supp, CO, l rectal 02:16: Q6H, PRN [place] suppository 00 Nausea & Vomiting, X 3 day, # 9 supp, 0 Refill(s) promethazin 2014-0 Yes 25 mg = 1 M emoria e 25 mg 5-27 supp, CO, l rectal 02:16: Q6H, PRN Randal suppository 00 Nausea & Vomiting, X 3 day, # 9 supp, 0 Refill(s) promethazin 2014- Yes 25 mg = 1 M emoria e 25 mg 5-27 supp, CO, l rectal 02:16: Q6H, PRN Randal suppository 00 Nausea & Vomiting, X 3 day, # 9 supp, 0 Refill(s) Sodium 2015-0 No 1,000 mL, Memori a Chloride 5-26 1,000 l 0.154 22:46: ml/hr, Randal MEQ/ML 00 Infuse Injectable Over: 1 Solution hr, Route: IV, 1,000, Drug form: INJ, ONCE, Priority: STAT, Dosing Weight 61.364 kg, Start date: 10/10/14 17:46:00, Duration: 1 doses or times, Stop date: 10/10/14 17:46:00 Sodium 2015-0 No 1,000 mL, Memori a Chloride 5-26 1,000 l 0.154 22:46: ml/hr, Randal MEQ/ML 00 Infuse Injectable Over: 1 Solution hr, Route: IV, 1,000, Drug form: INJ, ONCE, Priority: STAT, Dosing Weight 61.364 kg, Start date: 10/10/14 17:46:00, Duration: 1 doses or times, Stop date: 10/10/14 17:46:00 Sodium 2015-0 No 1,000 mL, Memori a Chloride 5-26 1,000 l 0.154 22:46: ml/hr, Randal MEQ/ML 00 Infuse Injectable Over: 1 Solution hr, Route: IV, 1,000, Drug form: INJ, ONCE, Priority: STAT, Dosing Weight 61.364 kg, Start date: 10/10/14 17:46:00, Duration: 1 doses or times, Stop date: 10/10/14 17:46:00 Insulin 2014-0 No 60 units) Pietro kelli regular 5-26 Stable for l 22:45: 28 days at [place] 00 room temperatur e Expires in days from ____Date Insulin 2015-0 No 60 units) Pietro kelli regular 5-26 Stable for l 22:45: 28 days at [place] 00 room temperatur e Expires in days from ____Date Insulin 2014-0 No 60 units) Pietro kelli regular 5-26 Stable for l 22:45: 28 days at [place] 00 room temperatur e Expires in days from ____Date Promethazin 2014- No 12.5 mg, Me moria e 5-26 50 mL, l 21:05: Route: Randal 00 IVPB, Drug form: SOLN, ONCE, Dosing Weight 61.364, kg, Priority: STAT, Start date: 10/10/14 16:05:00, Stop date: 10/10/14 16:05:00 Sodium 2014-0 No 1,000 mL, Memori a Chloride - 1,000 l 0.154 21:05: ml/hr, Randal MEQ/ML 00 Infuse Injectable Over: 1 Solution hr, Route: IV, 1,000, Drug form: INJ, ONCE, Priority: STAT, Dosing Weight 61.364 kg, Start date: 10/10/14 16:05:00, Duration: 1 doses or times, Stop date: 10/10/14 16:05:00 Ketorolac 2014-0 No 4 days Memor ia 5-26 l 21:05: MEDICATION [place] 00 WASTE Product Size: 30 mg Product Wasted: 0 mg Promethazin 2014- No 12.5 mg, Me moria e 5-26 50 mL, l 21:05: Route: Randal 00 IVPB, Drug form: SOLN, ONCE, Dosing Weight 61.364, kg, Priority: STAT, Start date: 10/10/14 16:05:00, Stop date: 10/10/14 16:05:00 Sodium 2014-0 No 1,000 mL, Memori a Chloride 5-26 1,000 l 0.154 21:05: ml/hr, [place] MEQ/ML 00 Infuse Injectable Over: 1 Solution hr, Route: IV, 1,000, Drug form: INJ, ONCE, Priority: STAT, Dosing Weight 61.364 kg, Start date: 10/10/14 16:05:00, Duration: 1 doses or times, Stop date: 10/10/14 16:05:00 Ketorolac No 4 days Memor ia -26 l 21:05: MEDICATION Randal 00 WASTE Product Size: 30 mg Product Wasted: 0 mg Promethazin No 12.5 mg, Me moria e -26 50 mL, l 21:05: Route: Randal 00 IVPB, Drug form: SOLN, ONCE, Dosing Weight 61.364, kg, Priority: STAT, Start date: 10/10/14 16:05:00, Stop date: 10/10/14 16:05:00 Sodium 2014-0 No 1,000 mL, Memori a Chloride 5-26 1,000 l 0.154 21:05: ml/hr, [place] MEQ/ML 00 Infuse Injectable Over: 1 Solution hr, Route: IV, 1,000, Drug form: INJ, ONCE, Priority: STAT, Dosing Weight 61.364 kg, Start date: 10/10/14 16:05:00, Duration: 1 doses or times, Stop date: 10/10/14 16:05:00 Ketorolac No 4 days Memor ia -26 l 21:05: MEDICATION [place] 00 WASTE Product Size: 30 mg Product Wasted: 0 mg Saline No Notes: Memoria Flush 0.9% 5-26 (Same as: l 21:00: BD [place] 00 Posiflush) Saline No Notes: [facility]oria Flush 0.9% 5-26 (Same as: l 21:00: BD [place] 00 Posiflush) Saline No Notes: Memoria Flush 0.9% 5-26 (Same as: l 21:00: BD [place] 00 Posiflush) Carisoprodo Yes 350 mg = 1 Memoria l 350 MG 4-23 tab, PO, l Oral Tablet 22:55: TID, X 7 He rmann [Soma] day, # 21 tab, 0 Refill(s) Cefuroxime Yes 500 mg = 1 M emoria 500 MG Oral 4-23 tab, PO, l Tablet 22:55: BID, X 7 Randal [Ceftin] day, # 14 tab, 0 Refill(s) Insulin, Yes 5 unit, Memori a Aspart, 4-23 SUB-Q, l Human 22:55: TID-Before Meals, 0 Refill(s) Carisoprodo Yes 350 mg = 1 Memoria l 350 MG 4-23 tab, PO, l Oral Tablet 22:55: TID, X 7 He rmann [Soma] day, # 21 tab, 0 Refill(s) Cefuroxime Yes 500 mg = 1 M emoria 500 MG Oral 4-23 tab, PO, l Tablet 22:55: BID, X 7 Randal [Ceftin] day, # 14 tab, 0 Refill(s) Insulin, Yes 5 unit, Memori a Aspart, 4-23 SUB-Q, l Human 22:55: TID-Before Meals, 0 Refill(s) Carisoprodo Yes 350 mg = 1 Memoria l 350 MG 4-23 tab, PO, l Oral Tablet 22:55: TID, X 7 He ann [Soma] day, # 21 tab, 0 Refill(s) Cefuroxime Yes 500 mg = 1 M emoria 500 MG Oral 4-23 tab, PO, l Tablet 22:55: BID, X 7 [place] [Ceftin] day, # 14 tab, 0 Refill(s) Insulin, Yes 5 unit, Memori a Aspart, 4-23 SUB-Q, l Human 22:55: TID-Before Meals, 0 Refill(s) Benadryl No 25 mg, 1 Memor ia 4-23 tab, l 14:04: Route: PO, Drug form: TAB, Q6H, Dosing Weight 60.4, kg, PRN as needed for allergy symptoms, Start date: 09/07/14 9:04:00, Duration: 30 day, Stop date: 10/07/14 9:03:00 Benadryl 2015-0 No 25 mg, 1 Memor ia 4-23 tab, l 14:04: Route: PO, Randal 00 Drug form: TAB, Q6H, Dosing Weight 60.4, kg, PRN as needed for allergy symptoms, Start date: 09/07/14 9:04:00, Duration: 30 day, Stop date: 10/07/14 9:03:00 Benadryl 2015-0 No 25 mg, 1 Memor ia 4-23 tab, l 14:04: Route: PO, [place] 00 Drug form: TAB, Q6H, Dosing Weight 60.4, kg, PRN as needed for allergy symptoms, Start date: 09/07/14 9:04:00, Duration: 30 day, Stop date: 10/07/14 9:03:00 Benadryl 2014- No Notes: Memoria 4-22 (Same as: l 22:29: Benadryl) [place] Benadryl No Notes: Memoria 4-22 (Same as: l 22:29: Benadryl) Randal Benadryl No Notes: Memoria 4-22 (Same as: l 22:29: Benadryl) Randal Levemir No Notes: Memoria FlexPen 4-22 Same as l 02:00: Le[place] Do [place] 00 not hold insulin without contacting prescriber "single patient use only" Levemir No Notes: Mem[facility] FlexPen 4-22 Same as l 02:00: [place] Do [place] 00 not hold insulin without contacting prescriber "single patient use only" [place] No Notes: [facility] FlexPen 4-22 Same as l 02:00: [place] Do [place] not hold insulin without contacting prescriber "single patient use only" Insulin, No Notes: Memoria Aspart, 4-21 Roll in l Human 16:30: palms of [place] 00 hands gently; Do not shake vigorously . (Same as: NovoLOG) "single patient use only" Stable for 28 days at room temperatur e. Expires in days from ____Date Insulin, No Notes: [facility] Aspart, 4-21 Roll in l Human 16:30: palms of [place] 00 hands gently; Do not shake vigorously . (Same as: NovoLOG) "single patient use only" Stable for 28 days at room temperatur e. Expires in days from ____Date Insulin, No Notes: Mem[facility] Aspart, 4-21 Roll in l Human 16:30: palms of [place] 00 hands gently; Do not shake vigorously . (Same as: NovoLOG) "single patient use only" Stable for 28 days at room temperatur e. Expires in days from ____Date Levemir No Notes: Mem[facility] FlexPen 4-21 Same as l 16:00: [place] Do not hold insulin without contacting prescriber "single patient use only" [place] No Notes: [facility] FlexPen 4-21 Same as l 16:00: [place] Do not hold insulin without contacting prescriber "single patient use only" [place] No Notes: [facility] FlexPen 4-21 Same as l 16:00: [place] Do not hold insulin without contacting prescriber "single patient use only" Glucagon No 1 mg, Memoria 4-21 Route: IM, l 14:58: Drug form: PDR/INJ, PRN, Dosing Weight 60.4, kg, PRN Blood Glucose Results, Start date: 09/05/14 9:58:00, Duration: 30 day, Stop date: 10/05/14 9:57:00 Dextrose No 25 gm, 50 Pietro kelli 50% Syringe 4-21 mL, Route: l 14:58: IVP, Drug Form: INJ, Dosing Weight 60.4, kg, PRN, PRN Blood Glucose Results, Start date: 09/05/14 9:58:00, Duration: 30 day, Stop date: 10/05/14 9:57:00 Glucagon 2015-0 No 1 mg, Memoria 09-05 Route: IM, l 14:58: Drug form: [place] 00 PDR/INJ, PRN, Dosing Weight 60.4, kg, PRN Blood Glucose Results, Start date: 09/05/14 9:58:00, Duration: 30 day, Stop date: 10/05/14 9:57:00 Dextrose 2015-0 No 25 gm, 50 Pietro kelli 50% Syringe 4-21 mL, Route: l 14:58: IVP, Drug [place] 00 Form: INJ, Dosing Weight 60.4, kg, PRN, PRN Blood Glucose Results, Start date: 09/05/14 9:58:00, Duration: 30 day, Stop date: 10/05/14 9:57:00 Glucagon 2015-0 No 1 mg, Memoria 09-05 Route: IM, l 14:58: Drug form: [place] 00 PDR/INJ, PRN, Dosing Weight 60.4, kg, PRN Blood Glucose Results, Start date: 09/05/14 9:58:00, Duration: 30 day, Stop date: 10/05/14 9:57:00 Dextrose 2015-0 No 25 gm, 50 Pietro kelli 50% Syringe 4-21 mL, Route: l 14:58: IVP, Drug [place] 00 Form: INJ, Dosing Weight 60.4, kg, PRN, PRN Blood Glucose Results, Start date: 09/05/14 9:58:00, Duration: 30 day, Stop date: 10/05/14 9:57:00 Lantus 2014-0 No 12 unit, Memoria 09-05 Route: l 14:57: SUB-Q, Rnadal 00 ONCE, Dosing Weight 60.4, kg, Start date: 09/05/14 9:57:00, Stop date: 09/05/14 9:57:00 Lantus 2015-0 No 12 unit, Memoria 09-05 Route: l 14:57: SUB-Q, Randal 00 ONCE, Dosing Weight 60.4, kg, Start date: 09/05/14 9:57:00, Stop date: 09/05/14 9:57:00 Lantus 2014-0 No 12 unit, Memoria 4-21 Route: l 14:57: SUB-Q, [place] 00 ONCE, Dosing Weight 60.4, kg, Start date: 09/05/14 9:57:00, Stop date: 09/05/14 9:57:00 Phenergan 2014-0 No 12.5 mg, Pietro kelli 4-21 50 mL, l 14:53: Route: [place] 00 IVPB, Drug form: SOLN, Q4H, Dosing Weight 60.4, kg, PRN Nausea & Vomiting, Start date: 09/05/14 9:53:00, Duration: 30 day, Stop date: 10/05/14 9:52:00 Phenergan 2015-0 No 12.5 mg, Pietro kelli 4-21 50 mL, l 14:53: Route: [place] 00 IVPB, Drug form: SOLN, Q4H, Dosing Weight 60.4, kg, PRN Nausea & Vomiting, Start date: 09/05/14 9:53:00, Duration: 30 day, Stop date: 10/05/14 9:52:00 Phenergan 2014-0 No 12.5 mg, Pietro kelli 4-21 50 mL, l 14:53: Route: [place] 00 IVPB, Drug form: SOLN, Q4H, Dosing Weight 60.4, kg, PRN Nausea & Vomiting, Start date: 09/05/14 9:53:00, Duration: 30 day, Stop date: 10/05/14 9:52:00 Protonix No Notes: For Mem oria 4-21 IV push l 12:30: reconstitu [place] 00 te with 10 ml 0.9% sodium chloride and push over 2 minutes. (Same as: Protonix) Protonix No Notes: For Mem oria 4-21 IV push l 12:30: reconstitu [place] 00 te with 10 ml 0.9% sodium chloride and push over 2 minutes. (Same as: Protonix) Protonix No Notes: For Mem oria 4-21 IV push l 12:30: reconstitu [place] 00 te with 10 ml 0.9% sodium chloride and push over 2 minutes. (Same as: Protonix) Glucose 50 2014-0 No 1,000 mL, Me moria MG/ML / -21 Rate: 80 l Sodium 06:54: ml/hr, [place] Chloride 00 Infuse 0.0769 over: 12.5 MEQ/ML hr, Route: Injectable IV, Dosing Solution Weight 60.4 kg, Total Volume: 1,000, Start date: 09/05/14 1:54:00, Stop date: 10/05/14 1:53:00 Glucose 50 No 1,000 mL, Me moria MG/ML / 4- Rate: 80 l Sodium 06:54: ml/hr, [place] Chloride 00 Infuse 0.0769 over: 12.5 MEQ/ML hr, Route: Injectable IV, Dosing Solution Weight 60.4 kg, Total Volume: 1,000, Start date: 09/05/14 1:54:00, Stop date: 10/05/14 1:53:00 Glucose 50 No 1,000 mL, Me moria MG/ML / -21 Rate: 80 l Sodium 06:54: ml/hr, [place] Chloride 00 Infuse 0.0769 over: 12.5 MEQ/ML hr, Route: Injectable IV, Dosing Solution Weight 60.4 kg, Total Volume: 1,000, Start date: 09/05/14 1:54:00, Stop date: 10/05/14 1:53:00 Zithromax No Notes: Memori a 09-05 Same as: l 04:00: Zithromax [place]andal Zithromax No Notes: Memori a 09-05 Same as: l 04:00: Zithromax [place] Zithromax No Notes: Memori a 09-05 Same as: l 04:00: Zithromax [place] Rocephin No Notes: Memoria 09-05 (Same As: l 03:00: Rocephin). [place] 00 Use with 100ml NS mini-bag PLUS and infuse over 30 min MEDICATION WASTE Product Size: 1000 mg Product Wasted: ___ mg Rocephin No Notes: Memoria 09-05 (Same As: l 03:00: Rocephin). [place] 00 Use with 100ml NS mini-bag PLUS and infuse over 30 min MEDICATION WASTE Product Size: 1000 mg Product Wasted: ___ mg Rocephin No Notes: Memoria 4-21 (Same As: l 03:00: Rocephin). Randal 00 Use with 100ml NS mini-bag PLUS and infuse over 30 min MEDICATION WASTE Product Size: 1000 mg Product Wasted: ___ mg Dilaudid No Notes: Memoria 421 Same as: l 01:00: Dilaudid [place] 00 Dilaudid No Notes: Memoria 421 Same as: l 01:00: Dilaudid Randal 00 Dilaudid No Notes: Memoria 421 Same as: l 01:00: Dilaudid [place] 00 Insulin Yes 36 unit, Memori a Glargine 4-20 SUB-Q, l 100 UNT/ML 21:10: Bedtime, 0 H ermann Injectable 00 Refill(s) Solution [Lantus] Insulin, Yes Special Memori a Aspart, 4-20 Instructio l Human 100 21:10: ns: Inject He rmann UNT/ML 00 6 units Injectable before Solution breakfast, [NovoLog] lunch, and dinner. Plus sliding scale depending on blood sugar Insulin Yes 36 unit, Memori a Glargine 4-20 SUB-Q, l 100 UNT/ML 21:10: Bedtime, 0 H ermann Injectable 00 Refill(s) Solution [Lantus] Insulin, Yes Special Memori a Aspart, 4-20 Instructio l Human 100 21:10: ns: Inject He rmann UNT/ML 00 6 units Injectable before Solution breakfast, [NovoLog] lunch, and dinner. Plus sliding scale depending on blood sugar Insulin Yes 36 unit, Memori a Glargine [...] kelli 4-20 50 mL, l 20:54: Route: [place] 00 IVPB, Drug form: SOLN, ONCE, Dosing Weight 61.364, kg, PRN Nausea & Vomiting, Start date: 09/04/14 15:54:00, Stop date: 10/04/14 15:53:00 Phenergan 2015-0 No 12.5 mg, Pietro kelli 4-20 50 mL, l 20:54: Route: [place] 00 IVPB, Drug form: SOLN, ONCE, Dosing Weight 61.364, kg, PRN Nausea & Vomiting, Start date: 09/04/14 15:54:00, Stop date: 10/04/14 15:53:00 Phenergan 2014-0 No 12.5 mg, Pietro kelli 4-20 50 [...] No 12.5 gm, Memor ia 50% Syringe -20 25 mL, l 20:07: Route: [place] 00 IVP, Drug Form: INJ, Dosing Weight 61.364, kg, PRN, PRN Blood Glucose Results, Start date: 09/04/14 15:07:00, Duration: 30 day, Stop date: 10/04/14 15:06:00 potassium 2014-0 No Notes: Memori a phosphate + 4-20 (Same as: l Sodium 20:07: K Chloride Phosphate. 0.9% IV 250 ) 1 mMol mL phoshate has 1.47 mEq potassium Infuse over 4 hours Glucagon No 1 mg, Memoria 4-20 Route: IM, l 20:07: Drug form: PDR/INJ, PRN, Dosing Weight 61.364, kg, PRN Blood Glucose Results, Start date: 09/04/14 15:07:00, Duration: 30 day, Stop date: 10/04/14 15:06:00 potassium 2014-0 No Notes: Memori a chloride 4-20 (Same as: l 20:07: KCL) [place] 00 Infuse no faster than 10 mEq/hr if given peripheral ly. Magnesium No 1 gm, 100 Mem oria Sulfate 4-20 mL, Route: l 20:07: IVPB, Drug [place] 00 form: INJ, PRN, Dosing Weight 61.364, kg, PRN Abnormal Lab Result, Start date: 09/04/14 15:07:00, Duration: 30 day, Stop date: 10/04/14 15:06:00 Sodium 2014-0 No 1,000 mL, Memori a Chloride 4-20 [...] mL 4-20 Rate: 250 l 20:07: ml/hr, [place] 00 Infuse over: 4 hr, Route: IV, Dosing Weight 61.364 kg, Total Volume: 1,000, Start date: 09/04/14 15:07:00, Duration: 30 day, Stop date: 10/04/14 15:06:00 Insulin 2014-0 No Notes: Memoria (regular) 4-20 (Same as: l Titrate IV 20:07: Humulin R He rmann additive 00 and 100 unit + NovoLIN R) Sodium (Do not Chloride shake) 0.9% (titrate) 99 mL Dextrose 0 No 12.5 gm, Memor ia 50% Syringe 4-20 25 mL, l 20:07: Route: [place] 00 IVP, Drug Form: INJ, Dosing Weight 61.364, kg, PRN, PRN Blood Glucose Results, Start date: 09/04/14 15:07:00, Duration: 30 day, Stop date: 10/04/14 15:06:00 potassium No Notes: Memori a phosphate + 4-20 (Same as: l Sodium 20:07: K [place] Chloride 00 Phosphate. 0.9% IV 250 ) 1 mMol mL phoshate has 1.47 mEq potassium Infuse over 4 hours Glucagon No 1 mg, Memoria 4-20 Route: IM, l 20:07: Drug form: [place] 00 PDR/INJ, PRN, Dosing Weight 61.364, kg, PRN Blood Glucose Results, Start date: 09/04/14 15:07:00, Duration: 30 day, Stop date: 10/04/14 15:06:00 potassium No Notes: Memori a chloride 4-20 (Same as: l 20:07: KCL) [place] 00 Infuse no faster than 10 mEq/hr if given peripheral ly. Magnesium No 1 gm, 100 Mem oria Sulfate 4-20 mL, Route: l 20:07: IVPB, Drug [place] 00 form: INJ, PRN, Dosing Weight 61.364, kg, PRN Abnormal Lab Result, Start date: 09/04/14 15:07:00, Duration: 30 day, Stop date: 10/04/14 15:06:00 Sodium No 1,000 mL, Memori a Chloride 4-20 Rate: 250 l 0.154 20:07: ml/hr, [place] MEQ/ML 00 Infuse Injectable over: 4 Solution hr, Route: IV, Dosing Weight 61.364 kg, Total Volume: 1,000, When Finger stick blood glucose values remain ABOVE 250 mg/dL administer until BG is less than 250 mg/dL., Start date: 09/04/14 15:07:00, Duration:. .. D5NS 1,000 No 1,000 mL, Me moria mL 4-20 Rate: 250 l 20:07: ml/hr, [place] 00 Infuse over: 4 hr, Route: IV, Dosing Weight 61.364 kg, Total Volume: 1,000, Start date: 09/04/14 15:07:00, Duration: 30 day, Stop date: 10/04/14 15:06:00 Insulin No Notes: Memoria (regular) 4-20 (Same as: l Titrate IV 20:07: Humulin R He rmann additive 00 and 100 unit + NovoLIN R) Sodium (Do not Chloride shake) 0.9% (titrate) 99 mL Dextrose No 12.5 gm, Memor ia 50% Syringe 4-20 25 mL, l 20:07: Route: [place] 00 IVP, Drug Form: INJ, Dosing Weight 61.364, kg, PRN, PRN Blood Glucose Results, Start date: 09/04/14 15:07:00, Duration: 30 day, Stop date: 10/04/14 15:06:00 potassium No Notes: Memori a phosphate + 4-20 (Same as: l Sodium 20:07: K [place] Chloride 00 Phosphate. 0.9% IV 250 ) 1 mMol mL phoshate has 1.47 mEq potassium Infuse over 4 hours Glucagon No 1 mg, Memoria 4-20 Route: IM, l 20:07: Drug form: [place] 00 PDR/INJ, PRN, Dosing Weight 61.364, kg, PRN Blood Glucose Results, Start date: 09/04/14 15:07:00, Duration: 30 day, Stop date: 10/04/14 15:06:00 potassium No Notes: Memori a chloride 4-20 (Same as: l 20:07: KCL) [place] 00 Infuse no faster than 10 mEq/hr if given peripheral ly. Magnesium No 1 gm, 100 Mem oria Sulfate 4-20 mL, Route: l 20:07: IVPB, Drug [place] 00 form: INJ, PRN, Dosing Weight 61.364, kg, PRN Abnormal Lab Result, Start date: 09/04/14 15:07:00, Duration: 30 day, Stop date: 10/04/14 15:06:00 Sodium No 1,000 mL, Memori a Chloride 4-20 Rate: 250 l 0.154 20:07: ml/hr, Randal MEQ/ML 00 Infuse Injectable over: 4 Solution hr, Route: IV, Dosing Weight 61.364 kg, Total Volume: 1,000, When Finger stick blood glucose values remain ABOVE 250 mg/dL administer until BG is less than 250 mg/dL., Start date: 09/04/14 15:07:00, Duration:. .. D5NS 1,000 No 1,000 mL, Me moria mL 4-20 Rate: 250 l 20:07: ml/hr, Randal 00 Infuse over: 4 hr, Route: IV, Dosing Weight 61.364 kg, Total Volume: 1,000, Start date: 09/04/14 15:07:00, Duration: 30 day, Stop date: 10/04/14 15:06:00 Insulin No 4 unit, Memoria regular 4-20 Route: l 19:51: IVP, ONCE, Randal Dosing Weight 61.364, kg, Priority: STAT, Start date: 09/04/14 14:51:00, Stop date: 09/04/14 14:51:00 Insulin No 4 unit, Memoria regular 4-20 Route: l 19:51: IVP, ONCE, [place] 00 Dosing Weight 61.364, kg, Priority: STAT, Start date: 09/04/14 14:51:00, Stop date: 09/04/14 14:51:00 Insulin No 4 unit, Memoria regular 4-20 Route: l 19:51: IVP, ONCE, [place] 00 Dosing Weight 61.364, kg, Priority: STAT, Start date: 09/04/14 14:51:00, Stop date: 09/04/14 14:51:00 Insulin No Notes: Memoria regular 100 4-20 (Same as: l unit + 17:29: Humulin R Booker n Sodium 00 and Chloride NovoLIN R) 0.9% (Do not (titrate) shake) 100 mL Insulin No Notes: Memoria regular 100 4-20 (Same as: l unit + 17:29: Humulin R Booker n Sodium 00 and Chloride NovoLIN R) 0.9% (Do not (titrate) shake) 100 mL Insulin No Notes: Memoria regular 100 4-20 (Same as: l unit + 17:29: Humulin R Booker n Sodium 00 and Chloride NovoLIN R) 0.9% (Do not (titrate) shake) 100 mL Sodium No 1,000 mL, Memori a Chloride 4-20 1,000 l 0.154 17:28: ml/hr, Randal MEQ/ML 00 Infuse Injectable Over: 1 Solution hr, Route: IV, 1,000, Drug form: INJ, ONCE, Priority: STAT, Dosing Weight 61.364 kg, Start date: 09/04/14 12:28:00, Duration: 1 doses or times, Stop date: 09/04/14 12:28:00 Insulin 2015-0 No 60 units) Pietro kelli regular 4-20 Stable for l 17:28: 28 days at [address] e Expires in days from ____Date Sodium 2014-0 No 1,000 mL, Memori a Chloride 4-20 1,000 l 0.154 17:28: ml/hr, Randal MEQ/ML 00 Infuse Injectable Over: 1 Solution hr, Route: IV, 1,000, Drug form: INJ, ONCE, Priority: STAT, Dosing Weight 61.364 kg, Start date: 09/04/14 12:28:00, Duration: 1 doses or times, Stop date: 09/04/14 12:28:00 Insulin 2015-0 No 60 units) Pietro kelli regular 4-20 Stable for l 17:28: 28 days at [address] e Expires in days from ____Date Sodium 2014-0 No 1,000 mL, Memori a Chloride 4-20 1,000 l 0.154 17:28: ml/hr, [place]andal MEQ/ML 00 Infuse Injectable Over: 1 Solution hr, Route: IV, 1,000, Drug form: INJ, ONCE, Priority: STAT, Dosing Weight 61.364 kg, Start date: 09/04/14 12:28:00, Duration: 1 doses or times, Stop date: 09/04/14 12:28:00 Insulin 2014-0 No 60 units) Pietro kelli regular 4-20 Stable for l 17:28: 28 days at [address] e Expires in days from ____Date Dilaudid No Notes: Memoria 4-20 Same as: l 16:38: Dilaudid [place] 00 Dilaudid No Notes: Memoria 4-20 Same as: l 16:38: Dilaudid [place] 00 Dilaudid 2015-0 No Notes: Memoria 4-20 Same as: l 16:38: Dilaudid Sodium 2015-0 No 1,000 mL, Memori a Chloride 4-20 1,000 l 0.154 16:27: ml/hr, [place] MEQ/ML 00 Infuse Injectable Over: 1 Solution hr, Route: IV, 1,000, Drug form: INJ, ONCE, Priority: STAT, Dosing Weight 61.364 kg, Start date: 09/04/14 11:27:00, Duration: 1 doses or times, Stop date: 09/04/14 11:27:00 Phenergan 2015-0 No 25 mg, Memori a 4-20 Route: l 16:27: IVPB, [place] 00 ONCE, Dosing Weight 61.364, kg, Priority: STAT, Start date: 09/04/14 11:27:00, Stop date: 09/04/14 11:27:00 Sodium 2015-0 No 1,000 mL, Memori a Chloride 4-20 1,000 l 0.154 16:27: ml/hr, [place]andal MEQ/ML 00 Infuse Injectable Over: 1 Solution hr, Route: IV, 1,000, Drug form: INJ, ONCE, Priority: STAT, Dosing Weight 61.364 kg, Start date: 09/04/14 11:27:00, Duration: 1 doses or times, Stop date: 09/04/14 11:27:00 Phenergan 2015-0 No 25 mg, Memori a 4-20 Route: l 16:27: IVPB, [place] 00 ONCE, Dosing Weight 61.364, kg, Priority: STAT, Start date: 09/04/14 11:27:00, Stop date: 09/04/14 11:27:00 Sodium 2015-0 No 1,000 mL, Memori a Chloride 4-20 1,000 l 0.154 16:27: ml/hr, [place] MEQ/ML 00 Infuse Injectable Over: 1 Solution hr, Route: IV, 1,000, Drug form: INJ, ONCE, Priority: STAT, Dosing Weight 61.364 kg, Start date: 09/04/14 11:27:00, Duration: 1 doses or times, Stop date: 09/04/14 11:27:00 Phenergan 2015-0 No 25 mg, Memori a 4-20 Route: l 16:27: IVPB, [place] 00 ONCE, Dosing Weight 61.364, kg, Priority: STAT, Start date: 09/04/14 11:27:00, Stop date: 09/04/14 11:27:00 Saline No Notes: Memoria Flush 0.9% 4-20 (Same as: l 16:15: BD [place] 00 Posiflush) Saline No Notes: Memoria Flush 0.9% 4-20 (Same as: l 16:15: BD [place] 00 Posiflush) Saline No Notes: Memoria Flush 0.9% 4-20 (Same as: l 16:15: BD [place] 00 Posiflush) Insulin, No Notes: Memoria Aspart, 9-10 Roll in l Human 21:30: palms of [place] 00 hands gently; Do not shake vigorously . (Same as: NovoLOG) "single patient use only" Stable for 28 days at room temperatur e. Expires in days from ____Date NovoLOG No Notes: Memoria FlexPen 9-10 Roll in l 21:30: palms of [place] 00 hands gently; Do not shake vigorously . (Same as: NovoLOG) "single patient use only" Stable for 28 days at room temperatur e. Expires in days from ____Date Insulin, No Notes: Memoria Aspart, 9-10 Roll in l Human 21:30: palms of [place] 00 hands gently; Do not shake vigorously . (Same as: NovoLOG) "single patient use only" Stable for 28 days at room temperatur e. Expires in days from ____Date NovoLOG No Notes: Memoria FlexPen 9-10 Roll in l 21:30: palms of [place] 00 hands gently; Do not shake vigorously . (Same as: NovoLOG) "single patient use only" Stable for 28 days at room temperatur e. Expires in days from ____Date Insulin, No Notes: Memoria Aspart, 9-10 Roll in l Human 21:30: palms of [place] 00 hands gently; [...] from ____Date Levemir No Notes: Memoria FlexPen 9-10 Same as l 19:00: Levemir [place] 00 "single patient use only" Levemir No Notes: Memoria FlexPen 9-10 Same as l 19:00: Levemir [place] 00 "single patient use only" Levemir No Notes: Memoria FlexPen 9-10 Same as l 19:00: Levemir [place] 00 "single patient use only" insulin Yes = 25 unit, Pietro kelli glargine 9-10 SUB-Q, l 100 18:50: Daily, # [place] units/mL 00 10 mL, 0 subcutaneou Refill(s) s solution Lactulose Yes 20 gm = 30 Me moria 667 MG/ML 9-10 ml, PO, l Oral 18:50: BID, [place] Solution 00 constipati on, # 240 ml, 0 Refill(s) Dulcolax No Notes: Memoria Laxative 9-10 (Same As: l 18:50: Dulcolax, [place] 00 Bisco-Lax) insulin Yes = 25 unit, Pietro kelli glargine 9-10 SUB-Q, l 100 18:50: Daily, # [place] units/mL 00 10 mL, 0 subcutaneou Refill(s) s solution Lactulose Yes 20 gm = 30 Me moria 667 MG/ML 9-10 ml, PO, l Oral 18:50: BID, [place] Solution 00 constipati on, # 240 ml, 0 Refill(s) Dulcolax No Notes: Memoria Laxative 9-10 (Same As: l 18:50: Dulcolax, [place] 00 Bisco-Lax) insulin Yes = 25 unit, Pietro kelli glargine 9-10 SUB-Q, l 100 18:50: Daily, # [place] units/mL 00 10 mL, 0 subcutaneou Refill(s) s solution Lactulose Yes 20 gm = 30 Me moria 667 MG/ML 9-10 ml, PO, l Oral 18:50: BID, [place] Solution 00 constipati on, # 240 ml, 0 Refill(s) Dulcolax No Notes: Memoria Laxative 9-10 (Same As: l 18:50: Dulcolax, [place] 00 Bisco-Lax) Humalog No 5 unit, Memoria 9-10 Route: l 18:49: SUB-Q, [place] 00 TID-Before Meals, Dosing Weight 72.545, kg, PRN, Start date: 01/25/14 13:49:00, Duration: 30 day, Stop date: 02/24/14 13:48:00, None Humalog No 5 unit, Memoria 9-10 Route: l 18:49: SUB-Q, [place] 00 TID-Before Meals, Dosing Weight 72.545, kg, PRN, Start date: 01/25/14 13:49:00, Duration: 30 day, Stop date: 02/24/14 13:48:00, None Humalog No 5 unit, Memoria 9-10 Route: l 18:49: SUB-Q, [place] 00 TID-Before Meals, Dosing Weight 72.545, kg, PRN, Start date: 01/25/14 13:49:00, Duration: 30 day, Stop date: 02/24/14 13:48:00, None magnesium No Notes: Memori a citrate 9-10 (Same as: l 18:03: Citrate of [place] 00 Magnesia) magnesium No Notes: Memori a citrate 9-10 (Same as: l 18:03: Citrate of [place] Magnesia) magnesium No Notes: Memori a citrate 9-10 (Same as: l 18:03: Citrate of [place] Magnesia) Levemir No Notes: Memoria FlexPen 9-10 Same as l 11:14: Levemir [place] 00 "single patient use only" Levemir No Notes: Memoria FlexPen 9-10 Same as l 11:14: Levemir [place] 00 "single patient use only" Levemir No Notes: Memoria FlexPen 9-10 Same as l 11:14: Levemir [place] 00 "single patient use only" Docusate No Notes: Memoria Sodium 100 9-09 (Same as: l MG Oral 14:00: Colace) Randal Capsule 00 (Do Not [Colace] Crush) Levemir No Notes: Memoria 9-09 Same as l 14:00: Levemir [place] 00 "single patient use only" Docusate No Notes: Memoria Sodium 100 9-09 (Same as: l MG Oral 14:00: Colace) [place] Capsule 00 (Do Not [Colace] Crush) Levemir No Notes: Memoria 9-09 Same as l 14:00: Levemir [place] 00 "single patient use only" Docusate No Notes: Memoria Sodium 100 9-09 (Same as: l MG Oral 14:00: Colace) [place] Capsule 00 (Do Not [Colace] Crush) Levemir No Notes: Memoria 9-09 Same as l 14:00: Levemir [place] 00 "single patient use only" Miralax No Notes: Memoria 9-09 Dissolve l 13:00: in 8 oz of [place] 00 water or juice. (Same as: Miralax) Reglan No Notes: Memoria 9-09 (Same as: l 13:00: Reglan) [place] 00 Miralax No Notes: Memoria 9-09 Dissolve l 13:00: in 8 oz of [place] 00 water or juice. (Same as: Miralax) Reglan No Notes: Memoria 01-24 (Same as: l 13:00: Reglan) [place]andal Miralax No Notes: Memoria 01-24 Dissolve l 13:00: in 8 oz of [place] 00 water or juice. (Same as: Miralax) Reglan No Notes: Memoria 01-24 (Same as: l 13:00: Reglan) [place] 00 Sodium 2013-0 No 1,000 mL, Memori a Chloride 01-24 Rate: 125 l 0.154 10:24: ml/hr, [place] MEQ/ML 00 Infuse Injectable over: 8 Solution hr, Route: IV, Dosing Weight 65.909 kg, Total Volume: 1,000, Start date: 01/24/14 5:24:00, Duration: 30 day, Stop date: 02/23/14 5:23:00 Sodium 2013-0 No 1,000 mL, Memori a Chloride 01-24 Rate: 125 l 0.154 10:24: ml/hr, [place] MEQ/ML 00 Infuse Injectable over: 8 Solution hr, Route: IV, Dosing Weight 65.909 kg, Total Volume: 1,000, Start date: 01/24/14 5:24:00, Duration: 30 day, Stop date: 02/23/14 5:23:00 Sodium 2013-0 No 1,000 mL, Memori a Chloride 01-24 Rate: 125 l 0.154 10:24: ml/hr, [place] MEQ/ML 00 Infuse Injectable over: 8 Solution hr, Route: IV, Dosing Weight 65.909 kg, Total Volume: 1,000, Start date: 01/24/14 5:24:00, Duration: 30 day, Stop date: 02/23/14 5:23:00 Phenergan 2013- No 12.5 mg, Pietro kelli 01-24 50 mL, l 10:18: Route: Randal IVPB, Drug form: SOLN, Q4H, Dosing Weight 65.909, kg, PRN Nausea & Vomiting, Start date: 01/24/14 5:18:00, Duration: 30 day, Stop date: 02/23/14 5:17:00 Phenergan 2013-0 No 12.5 mg, Pietro kelli 01-24 50 mL, l 10:18: Route: [place] 00 IVPB, Drug form: SOLN, Q4H, Dosing Weight 65.909, kg, PRN Nausea & Vomiting, Start date: 01/24/14 5:18:00, Duration: 30 day, Stop date: 02/23/14 5:17:00 Phenergan 2014-0 No 12.5 mg, Pietro kelli 01-24 50 mL, l 10:18: Route: [place] 00 IVPB, Drug form: SOLN, Q4H, Dosing Weight 65.909, kg, PRN Nausea & Vomiting, Start date: 01/24/14 5:18:00, Duration: 30 day, Stop date: 02/23/14 5:17:00 Levemir 2014-0 No Notes: Memoria 01-24 Same as l 10:15: Levemir [place] 00 "single patient use only" Levemir 2014-0 No Notes: Memoria 01-24 Same as l 10:15: Levemir [place] 00 "single patient use only" Levemir 2014-0 No Notes: Memoria 01-24 Same as l 10:15: Levemir [place] 00 "single patient use only" Sodium 2014-0 No 1,000 mL, Memori a Chloride 01-24 Rate: 100 l 0.154 10:14: ml/hr, [place] MEQ/ML 00 Infuse Injectable over: 10 Solution hr, Route: IV, Dosing Weight 65.909 kg, Total Volume: 1,000, Start date: 01/24/14 5:14:00, Duration: 30 day, Stop date: 02/23/14 5:13:00 Sodium 2014-0 No 1,000 mL, Memori a Chloride 01-24 Rate: 100 l 0.154 10:14: ml/hr, [place] MEQ/ML 00 Infuse Injectable over: 10 Solution hr, Route: IV, Dosing Weight 65.909 kg, Total Volume: 1,000, Start date: 01/24/14 5:14:00, Duration: 30 day, Stop date: 02/23/14 5:13:00 Sodium 2014-0 No 1,000 mL, Memori a Chloride 01-24 Rate: 100 l 0.154 10:14: ml/hr, [place] MEQ/ML 00 Infuse Injectable over: 10 Solution hr, Route: IV, Dosing Weight 65.909 kg, Total Volume: 1,000, Start date: 01/24/14 5:14:00, Duration: 30 day, Stop date: 02/23/14 5:13:00 Fleet Enema 2013-0 No 133 ml, Mem oria 01-24 Route: CO, l 10:06: Drug Form: [place] 00 VALERIE, Dosing Weight 65.909, kg, ONCE, Start date: 01/24/14 5:06:00, Stop date: 01/24/14 5:06:00 Fleet Enema 2013-0 No 133 ml, Mem oria 01-24 Route: CO, l 10:06: Drug Form: [place] 00 VALERIE, Dosing Weight 65.909, kg, ONCE, Start date: 01/24/14 5:06:00, Stop date: 01/24/14 5:06:00 Fleet Enema 2013-0 No 133 ml, Mem oria 01-24 Route: CO, l 10:06: Drug Form: [place] 00 VALERIE, Dosing Weight 65.909, kg, ONCE, Start date: 01/24/14 5:06:00, Stop date: 01/24/14 5:06:00 Insulin, 2013-0 No Notes: Memoria Aspart, 01-24 Roll in l Human 09:43: palms of hands gently; Do not shake vigorously . (Same as: NovoLOG) "single patient use only" Stable for 28 days at room temperatur e. Expires in days from ____Date Dextrose No 12.5 gm, Memor ia 50% Syringe 01-24 25 mL, l 09:43: Route: IVP, Drug Form: INJ, Dosing Weight 65.909, kg, PRN, PRN Blood Glucose Results, Start date: 01/24/14 4:43:00, Duration: 30 day, Stop date: 02/23/14 4:42:00 Glucagon No 1 mg, Memoria 01-24 Route: IM, l 09:43: Drug form: [place] 00 PDR/INJ, PRN, Dosing Weight 65.909, kg, PRN Blood Glucose Results, Start date: 01/24/14 4:43:00, Duration: 30 day, Stop date: 02/23/14 4:42:00 Insulin, 0 No Notes: Memoria Aspart, 01-24 Roll in l Human 09:43: palms of [place] 00 hands gently; Do not shake vigorously . (Same as: NovoLOG) "single patient use only" Stable for 28 days at room temperatur e. Expires in days from ____Date Dextrose No 12.5 gm, Memor ia 50% Syringe 01-24 25 mL, l 09:43: Route: [place] 00 IVP, Drug Form: INJ, Dosing Weight 65.909, kg, PRN, PRN Blood Glucose Results, Start date: 01/24/14 4:43:00, Duration: 30 day, Stop date: 02/23/14 4:42:00 Glucagon No 1 mg, Memoria 01-24 Route: IM, l 09:43: Drug form: R[place] 00 PDR/INJ, PRN, Dosing Weight 65.909, kg, PRN Blood Glucose Results, Start date: 01/24/14 4:43:00, Duration: 30 day, Stop date: 02/23/14 4:42:00 Insulin, 0 No Notes: Memoria Aspart, 01-24 Roll in l Human 09:43: palms of [place] 00 hands gently; Do not shake vigorously . (Same as: NovoLOG) "single patient use only" Stable for 28 days at room temperatur e. Expires in days from ____Date Dextrose No 12.5 gm, Memor ia 50% Syringe 01-24 25 mL, l 09:43: Route: [place]andal 00 IVP, Drug Form: INJ, Dosing Weight 65.909, kg, PRN, PRN Blood Glucose Results, Start date: 01/24/14 4:43:00, Duration: 30 day, Stop date: 02/23/14 4:42:00 Glucagon No 1 mg, Memoria 01-24 Route: IM, l 09:43: Drug form: [place] 00 PDR/INJ, PRN, Dosing Weight 65.909, kg, PRN Blood Glucose Results, Start date: 01/24/14 4:43:00, Duration: 30 day, Stop date: 02/23/14 4:42:00 Docusate No Notes: Memoria 01-24 (Same as: l 09:42: Colace) [place] 00 (Do Not Crush) Acetaminoph No Notes: Pietro kelli en 325 MG / 01-24 (Same as: l Hydrocodone 09:42: [place] nn Bitartrate 00 325/5) Do 5 MG Oral not exceed Tablet 4gm/day of acetaminop hen. Acetaminoph No Notes: Do M emoria en 01-24 not exceed l 09:42: 4 gm/day. [place] 00 (Same as: Tylenol) Docusate No Notes: Memoria 01-24 (Same as: l 09:42: Colace) [place]andal (Do Not Crush) Acetaminoph No Notes: Pietro kelli en 325 MG / 01-24 (Same as: l Hydrocodone 09:42: [place] nn Bitartrate 00 325/5) Do 5 MG Oral not exceed Tablet 4gm/day of acetaminop hen. Acetaminoph No Notes: Do M emoria en 01-24 not exceed l 09:42: 4 gm/day. [place] 00 (Same as: Tylenol) Docusate No Notes: Memoria 01-24 (Same as: l 09:42: Colace) [place] (Do Not Crush) Acetaminoph No Notes: Pietro kelli en 325 MG / 01-24 (Same as: l Hydrocodone 09:42: [place] nn Bitartrate 00 325/5) Do 5 MG Oral not exceed Tablet 4gm/day of acetaminop hen. Acetaminoph No Notes: Do M emoria en 01-24 not exceed l 09:42: 4 gm/day. [place]andal 00 (Same as: Tylenol) Sodium No 1,000 mL, Memori a Chloride 01-24 1,000 l 0.154 09:41: ml/hr, [place] MEQ/ML 00 Infuse Injectable Over: 1 Solution hr, Route: IV, 1,000, Drug form: INJ, ONCE, Priority: STAT, Dosing Weight 65.909 kg, Start date: 01/24/14 4:41:00, Duration: 1 doses or times, Stop date: 01/24/14 4:41:00 Levemir 2013-0 No Notes: Memoria 01-24 Same as l 09:41: Levemir "single patient use only" Sodium No 1,000 mL, Memori a Chloride 01-24 1,000 l 0.154 09:41: ml/hr, [place] MEQ/ML 00 Infuse Injectable Over: 1 Solution hr, Route: IV, 1,000, Drug form: INJ, ONCE, Priority: STAT, Dosing Weight 65.909 kg, Start date: 01/24/14 4:41:00, Duration: 1 doses or times, Stop date: 01/24/14 4:41:00 Levemir 2013-0 No Notes: Memoria 01-24 Same as l 09:41: Levemir "single patient use only" Sodium No 1,000 mL, Memori a Chloride 01-24 1,000 l 0.154 09:41: ml/hr, [place] MEQ/ML 00 Infuse Injectable Over: 1 Solution hr, Route: IV, 1,000, Drug form: INJ, ONCE, Priority: STAT, Dosing Weight 65.909 kg, Start date: 01/24/14 4:41:00, Duration: 1 doses or times, Stop date: 01/24/14 4:41:00 Levemir 2013-0 No Notes: Memoria 01-24 Same as l 09:41: Levemir [place] 00 "single patient use only" Lactulose No Notes: Memori a 01-24 (Same l 09:40: as:Chronul [place] 00 ) Lactulose No Notes: Memori a 01-24 (Same l 09:40: as:Chronul [place]) Lactulose No Notes: Memori a 01-24 (Same l 09:40: as:Chronul ) Reglan No 10 mg, Memoria 01-24 Route: l 08:48: IVP, ONCE, [place] 00 Dosing Weight 65.909, kg, Priority: STAT, Start date: 01/24/14 3:48:00, Stop date: 01/24/14 3:48:00 Reglan 2013-0 No 10 mg, Memoria 01-24 Route: l 08:48: IVP, ONCE, Dosing Weight 65.909, kg, Priority: STAT, Start date: 01/24/14 3:48:00, Stop date: 01/24/14 3:48:00 Reglan 2013-0 No 10 mg, Memoria 01-24 Route: l 08:48: IVP, ONCE, Dosing Weight 65.909, kg, Priority: STAT, Start date: 01/24/14 3:48:00, Stop date: 01/24/14 3:48:00 Insulin, 2013-0 No 60 units) Mem oria Regular, 01-24 Stable for l Pork 07:27: 28 days at [place] 00 room temperatur e Expires in days from ____Date Insulin, 2013-0 No 60 units) Mem oria Regular, 01-24 Stable for l [place]ork 07:27: 28 days at [place] 00 room temperatur e Expires in days from ____Date Insulin, 2013-0 No 60 units) Mem oria Regular, 01-24 Stable for l Pork 07:27: 28 days at [place] 00 room temperatur e Expires in days from ____Date Phenergan 2013-0 No 25 mg, 50 Mem oria - mL, Route: l 06:48: IVPB, Drug form: SOLN, ONCE, Dosing Weight 65.909, kg, Priority: STAT, Start date: 01/24/14 1:48:00, Stop date: 01/24/14 1:48:00 Phenergan 2013-0 No 25 mg, 50 Mem oria - mL, Route: l 06:48: IVPB, Drug form: SOLN, ONCE, Dosing Weight 65.909, kg, Priority: STAT, Start date: 01/24/14 1:48:00, Stop date: 01/24/14 1:48:00 Phenergan 2013-0 No 25 mg, 50 Mem oria 9-09 mL, Route: l 06:48: IVPB, Drug [place] 00 form: SOLN, ONCE, Dosing Weight 65.909, kg, Priority: STAT, Start date: 01/24/14 1:48:00, Stop date: 01/24/14 1:48:00 Sodium 2013-0 No 1,000 mL, Memori a Chloride 01-24 1,000 l 0.154 06:23: ml/hr, [place] MEQ/ML 00 Infuse Injectable Over: 1 Solution hr, Route: IV, 1,000, Drug form: INJ, ONCE, Priority: STAT, Dosing Weight 65.909 kg, Start date: 01/24/14 1:23:00, Duration: 1 doses or times, Stop date: 01/24/14 1:23:00 Morphine 2013-0 No Notes: Memoria 01-24 (Same l 06:23: as:MORPhin [place] 00 e Sulfate) Sodium 0 No 1,000 mL, Memori a Chloride 01-24 1,000 l 0.154 06:23: ml/hr, [place] MEQ/ML 00 Infuse Injectable Over: 1 Solution hr, Route: IV, 1,000, Drug form: INJ, ONCE, Priority: STAT, Dosing Weight 65.909 kg, Start date: 01/24/14 1:23:00, Duration: 1 doses or times, Stop date: 01/24/14 1:23:00 Morphine 2014-0 No Notes: Memoria 01-24 (Same l 06:23: as:MORPhin [place] 00 e Sulfate) Sodium 2013-0 No 1,000 mL, Memori a Chloride 01-24 1,000 l 0.154 06:23: ml/hr, [place] MEQ/ML 00 Infuse Injectable Over: 1 Solution hr, Route: IV, 1,000, Drug form: INJ, ONCE, Priority: STAT, Dosing Weight 65.909 kg, Start date: 01/24/14 1:23:00, Duration: 1 doses or times, Stop date: 01/24/14 1:23:00 Morphine 2014-0 No Notes: Memoria 9-09 (Same l 06:23: as:MORPhin [place] 00 e Sulfate) Immunizations Ordered Filled Immunization Date Status Comments Sourc e Immunization Name Name Rosendo COVID-19 Rosendo COVID-19 2021-01-10 Completed Vaccine Vaccine 00:00:00 TDAP 2020-08-31 Completed [facility] TDAP 2020-08-31 Completed [facility] 00[facility]00 [facility] TDAP 2020-08-31 Completed [facility] 00:00:00 [facility] TDAP 2020-08-31 Completed [facility] 00:00:00 [facility] TDAP 2020-08-31 Completed [facility] 00:00:00 [facility] TDAP 2020-08-31 Completed [facility] 00:00:00 [facility] TDAP 2020-08-31 Completed [facility] 00:00:00 [facility] TDAP 2020-08-31 Completed [facility] 00:00:00 [facility] TDAP 2020-08-31 Completed [facility] 00:00:00 [facility] TDAP 2020-08-31 Completed [facility] 00:00:00 [facility] TDAP 2020-08-31 Completed [facility] 00:00:00 [facility] TDAP 2020-08-31 Completed [facility] 00:00:00 [facility] TDAP 2020-08-31 Completed [facility] 00:00:00 [facility] TDAP 2020-08-31 Completed [facility] 00:00:00 [facility] TDAP 2020-08-31 Completed [facility] 00:00:00 [facility] TDAP 2020-08-31 Completed [facility] 00:00:00 [facility] TDAP 2020-08-31 Completed [facility] 00:00:00 [facility] TDAP 2020-08-31 Completed [facility] 00:00:00 [facility] TDAP 2020-08-31 Completed [facility] 00[facility]00:00 [facility] TDAP 2020-08-31 Completed [facility] 00:00:00 [facility] TDAP 2020-08-31 Completed [facility] 00:00:00 [facility] TDAP 2020-08-31 Completed [facility] 00:00:00 [facility] TDAP 2020-08-31 Completed [facility] 00:00:00 [facility] TDAP 2020-08-31 Completed [facility] 00:00:00 [facility] TDAP 2020-08-31 Completed University 00:00:00 [facility] diphtheria/pertussi 2017-09-21 Completed Memor keri Tee s, acel/tetanus 01:39:00 adult diphtheria/pertussi 2017-09-21 Completed Memor keri Tee s, acel/tetanus 01:39:00 adult diphtheria/pertussi 2017-09-21 Completed Memor ial [place] s, acel/tetanus 01:39:00 adult Influenza Virus 2014-02-13 Completed [facility] Vaccine (3+ yrs) 00:00:00 [facility] Influenza Virus 2014-02-13 Completed [facility] Vaccine (3+ yrs) 00:00:00 [facility] Influenza Virus 2014-02-13 Completed [facility] Vaccine (3+ yrs) 00:00:00 [facility] Influenza Virus 2014-02-13 Completed [facility] Vaccine (3+ yrs) 00:00:00 [facility] Influenza Virus 2014-02-13 Completed [facility] Vaccine (3+ yrs) 00:00:00 [facility] Influenza Virus 2014-02-13 Completed [facility] Vaccine (3+ yrs) 00:00:00 [facility] Influenza Virus 2014-02-13 Completed [facility] Vaccine (3+ yrs) 00:00:00 [facility] Influenza Virus 2014-02-13 Completed [facility] Vaccine (3+ yrs) 00:00:00 [facility] Influenza Virus 2014-02-13 Completed [facility] Vaccine (3+ yrs) 00:00:00 [facility] Influenza Virus 2014-02-13 Completed [facility] Vaccine (3+ yrs) 00:00:00 [facility] Influenza Virus 2014-02-13 Completed [facility] Vaccine (3+ yrs) 00:00:00 [facility] Influenza Virus 2014-02-13 Completed [facility] Vaccine (3+ yrs) 00:00:00 [facility] Influenza Virus 2014-02-13 Completed [facility] Vaccine (3+ yrs) 00:00:00 [facility] Influenza Virus 2014-02-13 Completed [facility] Vaccine (3+ yrs) 00:00:00 [facility] Influenza Virus 2014-02-13 Completed [facility] Vaccine (3+ yrs) 00:00:00 [facility] Influenza Virus 2014-02-13 Completed [facility] Vaccine (3+ yrs) 00:00:00 [facility] Influenza Virus 2014-02-13 Completed [facility] Vaccine (3+ yrs) 00:00:00 [facility] Influenza Virus 2014-02-13 Completed [facility] Vaccine (3+ yrs) 00:00:00 [facility] Influenza Virus 2014-02-13 Completed [facility] Vaccine (3+ yrs) 00:00:00 [facility] Influenza Virus 2014-02-13 Completed [facility] Vaccine (3+ yrs) 00:00:00 [facility] Influenza Virus 2014-02-13 Completed [facility] Vaccine (3+ yrs) 00:00:00 [facility] Influenza Virus 2014-02-13 Completed [facility] Vaccine (3+ yrs) 00:00:00 [facility] Influenza Virus 2014-02-13 Completed [facility] Vaccine (3+ yrs) 00:00:00 [facility] Influenza Virus 2014-02-13 Completed [facility] Vaccine (3+ yrs) 00:00:00 [facility] Influenza Virus 2014-02-13 Completed [facility] Vaccine (3+ yrs) 00:00:00 [facility] Influenza Virus 2013-06-08 Completed [facility] Vaccine (3+ yrs) 00:00:00 [facility] Influenza Virus 2013-06-08 Completed [facility] Vaccine (3+ yrs) 00:00:00 [facility] Influenza Virus 2013-06-08 Completed [facility] Vaccine (3+ yrs) 00:00:00 [facility] Influenza Virus 2013-06-08 Completed [facility] Vaccine (3+ yrs) 00:00:00 [facility] Influenza Virus 2013-06-08 Completed [facility] Vaccine (3+ yrs) 00:00:00 [facility] Influenza Virus 2013-06-08 Completed [facility] Vaccine (3+ yrs) 00:00:00 [facility] Influenza Virus 2013-06-08 Completed [facility] Vaccine (3+ yrs) 00:00:00 [facility] Influenza Virus 2013-06-08 Completed [facility] Vaccine (3+ yrs) 00:00:00 [facility] Influenza Virus 2013-06-08 Completed [facility] Vaccine (3+ yrs) 00:00:00 [facility] Influenza Virus 2013-06-08 Completed [facility] Vaccine (3+ yrs) 00:00:00 [facility] Influenza Virus 2013-06-08 Completed [facility] Vaccine (3+ yrs) 00[facility]00:00 [facility] Influenza Virus 2013-06-08 Completed [facility] Vaccine (3[facility] yrs) 00:00:00 [facility] Influenza Virus 2013-06-08 Completed [facility] Vaccine (3+ yrs) 00:00:00 [facility] Influenza Virus 2013-06-08 Completed [facility] Vaccine (3+ yrs) 00:00:00 [facility] Influenza Virus 2013-06-08 Completed [facility] Vaccine (3+ yrs) 00:00:00 [facility] Influenza Virus 2013-06-08 Completed [facility] Vaccine (3+ yrs) 00:00:00 [facility] Influenza Virus 2013-06-08 Completed [facility] Vaccine (3+ yrs) 00:00:00 [facility] Influenza Virus 2013-06-08 Completed [facility] Vaccine (3+ yrs) 00:00:00 [facility] Influenza Virus 2013-06-08 Completed [facility] Vaccine (3+ yrs) 00:00:00 [facility] Influenza Virus 2013-06-08 Completed [facility] Vaccine (3+ yrs) 00:00:00 [facility] Influenza Virus 2013-06-08 Completed [facility] Vaccine (3+ yrs) 00:00:00 [facility] Influenza Virus 2013-06-08 Completed [facility] Vaccine (3+ yrs) 00:00:00 [facility] Influenza Virus 2013-06-08 Completed [facility] Vaccine (3+ yrs) 00:00:00 [facility] Influenza Virus 2013-06-08 Completed [facility] Vaccine (3+ yrs) 00:00:00 [facility] Influenza Virus 2013-06-08 Completed [facility] Vaccine (3+ yrs) 00:00:00 [facility] Influenza TIV (IM) 2013-06-[address] [facility] 00:00:00 [facility] Influenza TIV (IM) 2013-06-[address] [facility] 00:00:00 [facility] Influenza TIV (IM) 2013-06-[address] [facility] 00:00:00 [facility] pneumococcal 2012-11-30 Completed [facility]urer 23-valent vaccine 13:02:00 pneumococcal 2012-11-30 Completed [facility] 23-valent vaccine 13:02:00 pneumococcal 2012-11-30 Completed [facility] 23-valent vaccine 13:02:00 Vital Signs Vital Name [...] WEIGHT 2020-05-03 13:20:00 56.246 kg Systolic blood 2022-12-05 18:51:00 109 mm[Hg] [facility] pressure [facility] Diastolic blood 2022-12-05 18:51:00 67 mm[Hg] [facility]ive rsity of [facility] Heart rate 2022-12-05 18:51:00 68 /min [facility] Respiratory rate 2022-12-05 18:51:00 18 /min [facility] ers[facility] of [facility] Body height 2022-12-05 18:51:00 167.6 cm [facility] Body weight 2022-12-05 18:51:00 75.751 kg [facility] BMI 2022-12-05 18:51:00 26.95 kg/m2 [facility] ty [facility] Oxygen saturation in 2022-12-05 18:51:00 99 /min [facility] Arterial blood by [facility] Pulse oximetry Branch Systolic blood 2022-05-30 21:45:00 99 mm[Hg] [facility]iver sity of pressure [facility] Diastolic blood 2022-05-30 21:45:00 68 mm[Hg] Unive rsity of pressure [facility] Heart rate 2022-05-30 21:45:00 77 /min [facility] ty [facility] Body weight 2022-05-30 21:45:00 72.303 kg [facility] ty [facility] BMI 2022-05-30 21:45:00 25.73 kg/m2 [facility] ty [facility] Oxygen saturation in 2022-05-30 21:45:00 100 /min [facility] Arterial blood by [facility] Pulse oximetry Branch HEIGHT 2021-06-07 08:34:00 165.1 cm WEIGHT 2021-06-07 08:34:00 62.2 kg HEIGHT 2021-06-06 11:18:00 165.1 cm WEIGHT 2021-06-06 11:18:00 59.875 kg HEIGHT 2021-06-07 08:34:00 165.1 cm WEIGHT 2021-06-07 08:34:00 62.2 kg HEIGHT 2021-06-06 11:18:00 165.1 cm WEIGHT 2021-06-06 11:18:00 59.875 kg HEIGHT 2021-05-27 21:48:00 165.1 cm WEIGHT 2021-05-27 21:48:00 59.421 kg HEIGHT 2021-05-27 21:48:00 165.1 cm WEIGHT 2021-05-27 21:48:00 59.421 kg HEIGHT 2020-08-06 06:30:00 165.1 cm WEIGHT 2020-08-06 [...] 162.6 cm WEIGHT 2020-05-03 13:20:00 56.246 kg WEIGHT 2019-12-07 00:00:00 58.968 kg HEIGHT 2019-12-07 00:00:00 165.1 cm Systolic blood 2021-06-08 00:30:00 123 mm[Hg] [facility] Diastolic blood 2021-06-08 00:30:00 83 mm[Hg] [facility] Heart rate 2021-06-08 00:30:00 75 /min [facility] Respiratory rate 2021-06-08 00:30:00 15 /min [facility] Oxygen saturation in 2021-06-08 00:30:00 100 /min [facility] Arterial blood by [facility] Pulse oximetry Body temperature 2021-06-07 19:00:00 36.67 [facility] Body height 2021-06-07 08:34:00 165.1 cm [facility] Body weight 2021-06-07 08:34:00 62.2 kg [facility] BMI 2021-06-07 08:34:00 22.82 kg/m2 [facility] Systolic (mm Hg) 2020-12-27 20:10:00 [facility] Diastolic (mm Hg) 2020-12-27 20:10:00 [facility] Respitory Rate 2020-12-27 20:10:00 [facility] Heart Rate 2020-12-27 20:10:00 [facility] Height 2020-12-27 19:00:00 165.1 cm [facility] BMI Calculated 2020-12-27 19:00:00 [facility] Weight 2020-12-27 19:00:00 [facility] Systolic (mm Hg) 2020-12-27 19:00:00 [facility] Diastolic (mm Hg) 2020-12-27 19:00:00 [facility] Heart Rate 2020-12-27 19:00:00 [facility] Respitory Rate 2020-12-27 19:00:00 [facility] Temperature Oral (F) 2020-12-27 19:00:00 98.4 F [facility] Systolic (mm Hg) 2020-10-04 23:26:00 [facility] Diastolic (mm Hg) 2020-10-04 23:26:00 [facility] Heart Rate 2020-10-04 23:26:00 [facility] Respitory Rate 2020-10-04 23:26:00 [facility] Height 2020-10-04 22:20:00 165.1 cm [facility] BMI Calculated 2020-10-04 22:20:00 [facility] Weight 2020-10-04 22:20:00 [facility] Systolic (mm Hg) 2020-10-04 22:20:00 [facility] Diastolic (mm Hg) 2020-10-04 22:20:00 [facility] Heart Rate 2020-10-04 22:20:00 [facility] Respitory Rate 2020-10-04 22:20:00 [facility] Temperature Oral (F) 2020-10-04 22:20:00 98.3 F [facility] Heart Rate 2020-09-24 00:52:00 [facility] Respitory Rate 2020-09-24 00:52:00 [facility] Systolic (mm Hg) 2020-09-24 00:52:00 [facility] Diastolic (mm Hg) 2020-09-24 00:52:00 [facility] Temperature Oral (F) 2020-09-23 23:58:00 98.2 F [facility] Heart Rate 2020-09-23 23:58:00 [facility] Respitory Rate 2020-09-23 23:58:00 [facility] Systolic (mm Hg) 2020-09-23 23:58:00 [facility] Diastolic (mm Hg) 2020-09-23 23:58:00 [facility] Systolic (mm Hg) 2020-09-23 23:44:00 [facility] Diastolic (mm Hg) 2020-09-23 23:44:00 [facility] Heart Rate 2020-09-23 23:44:00 [facility] Respitory Rate 2020-09-23 23:44:00 [facility] Height 2020-09-23 21:19:00 165.1 cm [facility] BMI Calculated 2020-09-23 21:19:00 [facility] Weight 2020-09-23 21:19:00 [facility] Temperature Oral (F) 2020-09-23 21:19:00 98.3 F [facility] Systolic (mm Hg) 2018-12-18 08:30:00 [facility] Diastolic (mm Hg) 2018-12-18 08:30:00 [facility] Respitory Rate 2018-12-18 08:30:00 [facility] Systolic (mm Hg) 2018-12-18 08:00:00 [facility] Diastolic (mm Hg) 2018-12-18 08:00:00 [facility] Respitory Rate 2018-12-18 08:00:00 [facility] Respitory Rate 2018-12-18 07:30:00 [facility] Systolic (mm Hg) 2018-12-18 07:30:00 [facility] Diastolic (mm Hg) 2018-12-18 07:30:00 [facility] Weight 2018-12-18 06:21:00 [facility] Height 2018-12-18 06:21:00 162.56 cm [facility] BMI Calculated 2018-12-18 06:21:00 [facility] Temperature Oral (F) 2018-12-18 06:21:00 98.9 F [facility] Heart Rate 2018-12-18 06:21:00 [facility] Respitory Rate 2018-10-12 10:34:00 [facility] Systolic (mm Hg) 2018-10-12 10:34:00 [facility] Diastolic (mm Hg) 2018-10-12 10:34:00 [facility] Systolic (mm Hg) 2018-10-12 10:03:00 [facility] Diastolic (mm Hg) 2018-10-12 10:03:00 [facility] Respitory Rate 2018-10-12 10:03:00 [facility] Respitory Rate 2018-10-12 09:30:00 [facility] Systolic (mm Hg) 2018-10-12 09:30:00 [facility] Diastolic (mm Hg) 2018-10-12 09:30:00 [facility] Height 2018-10-12 06:47:00 165.1 cm [facility] BMI Calculated 2018-10-12 06:47:00 [facility] Weight 2018-10-12 06:47:00 [facility] Temperature Oral (F) 2018-10-12 06:47:00 98.9 F [facility] Heart Rate 2018-10-12 06:47:00 [facility] Height 2018-09-08 21:28:00 162.56 cm [facility] BMI Calculated 2018-09-08 21:28:00 [facility] Weight 2018-09-08 21:28:00 [facility] Heart Rate 2018-09-08 21:28:00 [facility] Systolic (mm Hg) 2018-09-08 21:28:00 [facility] Diastolic (mm Hg) 2018-09-08 21:28:00 [facility] Systolic (mm Hg) 2018-08-04 02:32:00 [facility] Diastolic (mm Hg) 2018-08-04 02:32:00 [facility] Respitory Rate 2018-08-04 02:32:00 [facility] Temperature Oral (F) 2018-08-04 02:32:00 99.1 F [facility] Respitory Rate 2018-08-04 00:49:00 [facility] Systolic (mm Hg) 2018-08-04 00:49:00 [facility] Diastolic (mm Hg) 2018-08-04 00:49:00 [facility] Heart Rate 2018-08-03 23:59:00 [facility] Respitory Rate 2018-08-03 23:59:00 [facility] Systolic (mm Hg) 2018-08-03 23:59:00 [facility] Diastolic (mm Hg) 2018-08-03 23:59:00 [facility] Temperature Oral (F) 2018-08-03 22:22:00 100 F [facility] Heart Rate 2018-08-03 22:22:00 [facility] Weight 2018-08-03 18:00:00 [facility] BMI Calculated 2018-08-03 18:00:00 [facility] Temperature Oral (F) 2018-08-03 18:00:00 100.2 F [facility] Height 2018-08-03 18:00:00 165.1 cm [facility] Heart Rate 2018-08-03 18:00:00 [facility] Weight 2018-07-19 20:03:00 [facility] BMI Calculated 2018-07-19 20:03:00 [facility] Height 2018-07-19 20:03:00 162.56 cm [facility] Heart Rate 2018-07-19 20:03:00 [facility] Systolic (mm Hg) 2018-07-19 20:03:00 [facility] Diastolic (mm Hg) 2018-07-19 20:03:00 [facility] Respitory Rate 2018-07-16 22:48:00 [facility] BMI Calculated 2018-07-16 22:48:00 [facility] Temperature Oral (F) 2018-07-16 22:48:00 98.2 F [facility] Height 2018-07-16 22:48:00 162.56 cm [facility] Weight 2018-07-16 22:48:00 [facility] Systolic (mm Hg) 2018-07-16 22:48:00 [facility] Diastolic (mm Hg) 2018-07-16 22:48:00 [facility] Heart Rate 2018-07-16 22:48:00 [facility] Height 2018-07-09 17:39:00 162.56 cm [facility] BMI Calculated 2018-07-09 17:39:00 [facility] Weight 2018-07-09 17:39:00 [facility] Systolic (mm Hg) 2018-07-09 17:39:00 [facility] Diastolic (mm Hg) 2018-07-09 17:39:00 [facility] Heart Rate 2018-07-09 17:39:00 [facility] Temperature Oral (F) 2018-06-03 17:45:00 98.1 F [facility] Systolic (mm Hg) 2018-06-03 17:45:00 [facility] Diastolic (mm Hg) 2018-06-03 17:45:00 [facility] Respitory Rate 2018-06-03 17:45:00 [facility] Systolic (mm Hg) 2018-06-03 16:30:00 [facility] Diastolic (mm Hg) 2018-06-03 16:30:00 [facility] Heart Rate 2018-06-03 16:30:00 [facility] Respitory Rate 2018-06-03 16:30:00 [facility] Respitory Rate 2018-06-03 15:30:00 [facility] Systolic (mm Hg) 2018-06-03 15:30:00 [facility] Diastolic (mm Hg) 2018-06-03 15:30:00 [facility] Heart Rate 2018-06-03 15:30:00 [facility] Heart Rate 2018-06-03 14:36:00 [facility] Weight 2018-06-03 13:49:00 [facility] Height 2018-06-03 13:49:00 162.56 cm [facility] Temperature Oral (F) 2018-06-03 13:49:00 97.9 F [facility] BMI Calculated 2018-06-03 13:49:00 [facility] Height 2018-05-20 19:03:00 162.56 cm [facility] BMI Calculated 2018-05-20 19:03:00 [facility] Weight 2018-05-20 19:03:00 [facility] Systolic (mm Hg) 2018-05-20 19:03:00 [facility] Diastolic (mm Hg) 2018-05-20 19:03:00 [facility] Heart Rate 2018-05-20 19:03:00 [facility] Temperature Oral (F) 2018-04-02 15:41:00 98 F [facility] Systolic (mm Hg) 2018-04-02 15:41:00 [facility] Diastolic (mm Hg) 2018-04-02 15:41:00 [facility] Respitory Rate 2018-04-02 15:41:00 [facility] Respitory Rate 2018-04-02 14:33:00 [facility] Systolic (mm Hg) 2018-04-02 14:33:00 [facility] Diastolic (mm Hg) 2018-04-02 14:33:00 [facility] Respitory Rate 2018-04-02 13:00:00 [facility] Systolic (mm Hg) 2018-04-02 13:00:00 [facility] Diastolic (mm Hg) 2018-04-02 13:00:00 [facility] Temperature Oral (F) 2018-04-02 12:30:00 97.9 F [facility] Heart Rate 2018-04-02 10:16:00 [facility] Weight 2018-04-02 09:22:00 [facility] BMI Calculated 2018-04-02 09:22:00 [facility] Heart Rate 2018-04-02 09:22:00 [facility] Height 2018-04-02 09:22:00 170.18 cm [facility] Respitory Rate 2018-03-02 09:15:00 [facility] Systolic (mm Hg) 2018-03-02 09:15:00 [facility] Diastolic (mm Hg) 2018-03-02 09:15:00 [facility] Respitory Rate 2018-03-02 09:00:00 [facility] Systolic (mm Hg) 2018-03-02 09:00:00 [facility] Diastolic (mm Hg) 2018-03-02 09:00:00 [facility] Height 2018-03-02 08:34:00 165.1 cm [facility] BMI Calculated 2018-03-02 08:34:00 [facility] Weight 2018-03-02 08:34:00 [facility] Heart Rate 2018-03-02 08:34:00 [facility] Respitory Rate 2018-03-02 08:34:00 [facility] Temperature Oral (F) 2018-03-02 08:34:00 98.2 F [facility] Systolic (mm Hg) 2018-03-02 08:34:00 [facility] Diastolic (mm Hg) 2018-03-02 08:34:00 [facility] Systolic (mm Hg) 2018-02-03 22:31:00 [facility] Diastolic (mm Hg) 2018-02-03 22:31:00 [facility] Respitory Rate 2018-02-03 22:31:00 [facility] Temperature Oral (F) 2018-02-03 22:31:00 98.2 F [facility] Heart Rate 2018-02-03 22:31:00 [facility] Respitory Rate 2018-02-03 20:32:00 [facility] Systolic (mm Hg) 2018-02-03 20:32:00 [facility] Diastolic (mm Hg) 2018-02-03 20:32:00 [facility] Temperature Oral (F) 2018-02-03 20:32:00 97.8 F [facility] BMI Calculated 2018-02-03 20:19:00 [facility] Height 2018-02-03 20:19:00 162.56 cm [facility] Weight 2018-02-03 20:19:00 [facility] Systolic (mm Hg) 2017-12-21 22:09:00 [facility] Diastolic (mm Hg) 2017-12-21 22:09:00 [facility] Respitory Rate 2017-12-21 22:09:00 [facility] Respitory Rate 2017-12-21 21:35:00 [facility] Systolic (mm Hg) 2017-12-21 21:24:00 [facility] Diastolic (mm Hg) 2017-12-21 21:24:00 [facility] Respitory Rate 2017-12-21 21:24:00 [facility] Heart Rate 2017-12-21 20:45:00 [facility] Heart Rate 2017-12-21 19:33:00 [facility] Weight 2017-12-21 18:02:00 [facility] Height 2017-12-21 18:02:00 165.1 cm [facility] BMI Calculated 2017-12-21 18:02:00 [facility] Systolic (mm Hg) 2017-12-21 18:02:00 [facility] Diastolic (mm Hg) 2017-12-21 18:02:00 [facility] Heart Rate 2017-12-21 18:02:00 [facility] Temperature Oral (F) 2017-12-21 18:02:00 98.7 F [facility] Systolic (mm Hg) 2017-11-12 06:11:00 [facility] Diastolic (mm Hg) 2017-11-12 06:11:00 [facility] Heart Rate 2017-11-12 06:11:00 [facility] Respitory Rate 2017-11-12 06:11:00 [facility] Heart Rate 2017-11-12 05:06:00 [facility] Systolic (mm Hg) 2017-11-12 05:06:00 [facility] Diastolic (mm Hg) 2017-11-12 05:06:00 [facility] Respitory Rate 2017-11-12 05:06:00 [facility] Heart Rate 2017-11-12 03:00:00 [facility] Systolic (mm Hg) 2017-11-12 03:00:00 [facility] Diastolic (mm Hg) 2017-11-12 03:00:00 [facility] Respitory Rate 2017-11-12 03:00:00 [facility] Temperature Oral (F) 2017-11-12 00:05:00 98.1 F [facility] BMI Calculated 2017-11-12 00:05:00 [facility] Height 2017-11-12 00:05:00 165.1 cm [facility] Weight 2017-11-12 00:05:00 [facility] Respitory Rate 2017-10-29 19:25:00 [facility] Systolic (mm Hg) 2017-10-29 19:25:00 [facility] Diastolic (mm Hg) 2017-10-29 19:25:00 [facility] Temperature Oral (F) 2017-10-29 19:25:00 98.0 F [facility] Respitory Rate 2017-10-29 18:45:00 [facility] Systolic (mm Hg) 2017-10-29 18:45:00 [facility] Diastolic (mm Hg) 2017-10-29 18:45:00 [facility] Heart Rate 2017-10-29 17:55:00 [facility] Systolic (mm Hg) 2017-10-29 17:55:00 [facility] Diastolic (mm Hg) 2017-10-29 17:55:00 [facility] Respitory Rate 2017-10-29 17:55:00 [facility] Temperature Oral (F) 2017-10-29 17:55:00 98 F [facility] BMI Calculated 2017-10-29 17:55:00 [facility] Weight 2017-10-29 17:55:00 [facility] Height 2017-10-29 17:55:00 167.64 cm [facility] Heart Rate 2017-09-21 01:56:00 [facility] Respitory Rate 2017-09-21 01:56:00 [facility] Systolic (mm Hg) 2017-09-21 01:56:00 [facility] Diastolic (mm Hg) 2017-09-21 01:56:00 [facility] Temperature Oral (F) 2017-09-21 00:09:00 98.8 F [facility] Heart Rate 2017-09-21 00:09:00 [facility] Respitory Rate 2017-09-21 00:09:00 [facility] BMI Calculated 2017-09-21 00:09:00 [facility] Height 2017-09-21 00:09:00 165.1 cm [facility] Weight 2017-09-21 00:09:00 [facility] Systolic (mm Hg) 2017-09-21 00:09:00 [facility] Diastolic (mm Hg) 2017-09-21 00:09:00 [facility] Respitory Rate 2016-06-05 19:10:00 [facility] Systolic (mm Hg) 2016-06-05 19:10:00 [facility] Diastolic (mm Hg) 2016-06-05 19:10:00 [facility] Heart Rate 2016-06-05 19:10:00 [facility] Weight 2016-06-05 15:58:00 [facility] BMI Calculated 2016-06-05 15:58:00 [facility] Height 2016-06-05 15:58:00 165.1 cm [facility] Respitory Rate 2016-06-05 15:58:00 [facility] Systolic (mm Hg) 2016-06-05 15:58:00 [facility] Diastolic (mm Hg) 2016-06-05 15:58:00 [facility] Heart Rate 2016-06-05 15:58:00 [facility] Temperature Oral (F) 2016-06-05 15:58:00 96.9 F [facility] Heart Rate 2015-12-03 16:30:00 [facility] Respitory Rate 2015-12-03 16:30:00 [facility] Systolic (mm Hg) 2015-12-03 16:30:00 [facility] Diastolic (mm Hg) 2015-12-03 16:30:00 [facility] Heart Rate 2015-12-03 15:40:00 [facility] Systolic (mm Hg) 2015-12-03 15:40:00 [facility] Diastolic (mm Hg) 2015-12-03 15:40:00 [facility] Respitory Rate 2015-12-03 15:40:00 [facility] Systolic (mm Hg) 2015-12-03 15:30:00 [facility] Diastolic (mm Hg) 2015-12-03 15:30:00 [facility] Respitory Rate 2015-12-03 15:30:00 [facility] Heart Rate 2015-12-03 11:51:00 [facility] BMI Calculated 2015-11-29 15:26:00 [facility] Weight 2015-11-29 15:26:00 [facility] Height 2015-11-29 15:26:00 165.1 cm [facility] Heart Rate 2015-11-15 17:25:00 [facility] Respitory Rate 2015-11-15 17:25:00 [facility] Systolic (mm Hg) 2015-11-15 17:02:00 [facility] Diastolic (mm Hg) 2015-11-15 17:02:00 [facility] Heart Rate 2015-11-15 17:02:00 [facility] Respitory Rate 2015-11-15 17:02:00 [facility] Systolic (mm Hg) 2015-11-15 16:20:00 [facility] Diastolic (mm Hg) 2015-11-15 16:20:00 [facility] Respitory Rate 2015-11-15 16:20:00 [facility] Heart Rate 2015-11-15 16:20:00 [facility] Systolic (mm Hg) 2015-11-15 15:50:00 [facility] Diastolic (mm Hg) 2015-11-15 15:50:00 [facility] Weight 2015-11-15 14:04:00 [facility] BMI Calculated 2015-11-15 14:04:00 [facility] Height 2015-11-15 14:04:00 165.1 cm [facility] Temperature Oral (F) 2015-11-15 14:04:00 97.7 F [facility] Respitory Rate 2015-05-07 17:51:00 [facility] Heart Rate 2015-05-07 17:51:00 [facility] Temperature Oral (F) 2015-05-07 17:51:00 97.9 F [facility] Systolic (mm Hg) 2015-05-07 17:51:00 [facility] Diastolic (mm Hg) 2015-05-07 17:51:00 [facility] Temperature Oral (F) 2015-05-07 13:50:00 98.3 F [facility] Respitory Rate 2015-05-07 13:50:00 [facility] Systolic (mm Hg) 2015-05-07 13:50:00 [facility] Diastolic (mm Hg) 2015-05-07 13:50:00 [facility] Heart Rate 2015-05-07 13:50:00 [facility] Respitory Rate 2015-05-07 10:00:00 [facility] Heart Rate 2015-05-07 10:00:00 [facility] Temperature Oral (F) 2015-05-07 10:00:00 98.2 F [facility] Systolic (mm Hg) 2015-05-07 10:00:00 [facility] Diastolic (mm Hg) 2015-05-07 10:00:00 [facility] Weight 2015-05-05 05:18:00 [facility] BMI Calculated 2015-05-05 05:18:00 [facility] Height 2015-05-05 05:18:00 165.1 cm [facility] BMI Calculated 2015-05-04 20:29:00 [facility] Height 2015-05-04 20:29:00 165.1 cm [facility] Weight 2015-05-04 20:29:00 [facility] Systolic (mm Hg) 2015-03-28 21:54:00 [facility] Diastolic (mm Hg) 2015-03-28 21:54:00 [facility] Respitory Rate 2015-03-28 21:54:00 [facility] Heart Rate 2015-03-28 21:54:00 [facility] BMI Calculated 2015-03-28 18:29:00 [facility] Weight 2015-03-28 18:29:00 [facility] Temperature Oral (F) 2015-03-28 18:29:00 98.4 F [facility] Height 2015-03-28 18:29:00 165.1 cm [facility] Respitory Rate 2015-03-28 18:29:00 [facility] Heart Rate 2015-03-28 18:29:00 [facility] Systolic (mm Hg) 2015-03-28 18:29:00 [facility] Diastolic (mm Hg) 2015-03-28 18:29:00 [facility] Systolic (mm Hg) 2014-12-21 16:37:00 [facility] Diastolic (mm Hg) 2014-12-21 16:37:00 [facility] Temperature Oral (F) 2014-12-21 16:37:00 97.1 F [facility] Heart Rate 2014-12-21 16:37:00 [facility] Respitory Rate 2014-12-21 16:37:00 [facility] Heart Rate 2014-12-21 13:34:00 [facility] Temperature Oral (F) 2014-12-21 13:34:00 96 F [facility] Systolic (mm Hg) 2014-12-21 13:34:00 [facility] Diastolic (mm Hg) 2014-12-21 13:34:00 [facility] Respitory Rate 2014-12-21 13:34:00 [facility] Respitory Rate 2014-12-21 09:00:00 [facility] Temperature Oral (F) 2014-12-21 09:00:00 97.6 F [facility] Heart Rate 2014-12-21 09:00:00 [facility] Systolic (mm Hg) 2014-12-21 09:00:00 [facility] Diastolic (mm Hg) 2014-12-21 09:00:00 [facility] Weight 2014-12-20 02:58:00 [facility] BMI Calculated 2014-12-20 02:58:00 [facility] Height 2014-12-20 02:58:00 165.1 cm [facility] BMI Calculated 2014-12-19 20:04:00 [facility] Weight 2014-12-19 20:04:00 [facility] Height 2014-12-19 20:04:00 165.1 cm [facility] Heart Rate 2014-10-11 02:34:00 [facility] Respitory Rate 2014-10-11 02:34:00 [facility] Systolic (mm Hg) 2014-10-11 02:34:00 [facility] Diastolic (mm Hg) 2014-10-11 02:34:00 [facility] Heart Rate 2014-10-10 23:16:00 [facility] Respitory Rate 2014-10-10 23:16:00 [facility] Systolic (mm Hg) 2014-10-10 23:16:00 [facility] Diastolic (mm Hg) 2014-10-10 23:16:00 [facility] Respitory Rate 2014-10-10 21:43:00 [facility] Heart Rate 2014-10-10 21:43:00 [facility] Systolic (mm Hg) 2014-10-10 21:43:00 [facility] Diastolic (mm Hg) 2014-10-10 21:43:00 [facility] Weight 2014-10-10 19:45:00 [facility] BMI Calculated 2014-10-10 19:45:00 [facility] Height 2014-10-10 19:45:00 167.64 cm [facility] Temperature Oral (F) 2014-10-10 19:45:00 98.4 F [facility] Heart Rate 2014-09-07 20:56:00 [facility] Systolic (mm Hg) 2014-09-07 20:56:00 [facility]ro [facility] [place] Diastolic (mm Hg) 2014-09-07 20:56:00 [facility] [place] Temperature Oral (F) 2014-09-07 16:51:00 97.9 F [facility] Systolic (mm Hg) 2014-09-07 16:51:00 [facility]ro [facility] [place] Diastolic (mm Hg) 2014-09-07 16:51:00 [facility] Respitory Rate 2014-09-07 16:51:00 [facility] Heart Rate 2014-09-07 16:51:00 [facility] [facility] Rate 2014-09-07 12:01:00 [facility] Respitory Rate 2014-09-07 12:01:00 [facility] Systolic (mm Hg) 2014-09-07 12:01:00 Pietro rial [place] Diastolic (mm Hg) 2014-09-07 12:01:00 Mem [facility] Temperature Oral (F) 2014-09-07 12:01:00 97.5 F [facility] Respitory Rate 2014-09-07 05:00:00 [facility] Temperature Oral (F) 2014-09-07 05:00:00 97.9 F [facility] Height 2014-09-05 00:30:00 167.64 cm [facility] Weight 2014-09-05 00:30:00 [facility] BMI Calculated 2014-09-05 00:30:00 [facility] BMI Calculated 2014-09-04 15:44:00 [facility] Weight 2014-09-04 15:44:00 [facility] Height 2014-09-04 15:44:00 167.64 cm [facility] Temperature Oral (F) 2014-01-25 16:29:00 98.1 F [facility] Systolic (mm Hg) 2014-01-25 16:29:00 Pietro rial [facility] Respitory Rate 2014-01-25 16:29:00 [facility] [place] Diastolic (mm Hg) 2014-01-25 16:29:00 Mem o[facility] [place] Heart Rate 2014-01-25 16:29:00 [facility] Respitory Rate 2014-01-25 12:00:00 [facility] Systolic (mm Hg) 2014-01-25 12:00:00 Pietro rial [facility] Diastolic (mm Hg) 2014-01-25 12:00:00 [facility] [place] Heart Rate 2014-01-25 12:00:00 [facility] Temperature Oral (F) 2014-01-25 12:00:00 97.8 F [facility] Heart Rate 2014-01-25 00:00:00 [facility] Systolic (mm Hg) 2014-01-25 00:00:00 Pietro rial [facility] Respitory Rate 2014-01-25 00:00:00 [facility] Diastolic (mm Hg) 2014-01-25 00:00:00 [facility] Temperature Oral (F) 2014-01-25 00:00:00 98 F [facility] Weight 2014-01-24 20:14:00 [facility] Height 2014-01-24 13:57:00 165.1 cm [facility] Weight 2014-01-24 13:57:00 [facility] BMI Calculated 2014-01-24 13:57:00 [facility] Height 2014-01-24 05:35:00 165.1 cm [facility] BMI Calculated 2014-01-24 05:35:00 [facility] Weight 2014-01-24 05:[facility] Procedure Date / Time Performing Clinician Source Performed DIABETES TESTING REPORTS 2022-12-05 05:01:00 Doctor Unaopaligned, [facility] Name [facility] POCT HEMOGLOBIN A1C TEST 2022-05-30 21:54:00 Jose Cruz Henao [facility] ASSIGNMENT OF BENEFITS 2022-05-30 21:42:07 Doctor Unataylor, [facility] Name [facility] [place] REFERRAL- REQUEST/RESPONSE 2022-01-22 05:01:00 Doctor Dylon , [facility] Name [facility] POCT-GLUCOSE METER 2021-06-07 23:42:00 [facility] POCT-GLUCOSE METER 2021-06-07 22:40:00 [facility] POCT-GLUCOSE METER 2021-06-07 21:33:00 [facility] POCT-GLUCOSE METER 2021-06-07 19:50:00 [facility]Con[facility] POCT-GLUCOSE METER 2021-06-07 19:28:00 [facility] POCT-GLUCOSE METER 2021-06-07 18:24:00 [facility] POCT-GLUCOSE METER 2021-06-07 16:39:00 [facility] POCT-GLUCOSE METER 2021-06-07 15:30:00 [facility] TISSUE EXAM 2021-06-07 15:04:00 [facility] POCT-GLUCOSE METER 2021-06-07 14:02:00 [facility] POCT-GLUCOSE METER 2021-06-07 11:09:00 [facility] INSERTION, 2021-06-07 10:59:00 [facility] NEUROSTIMULATOR, GASTRIC, [facility] ROBOT-ASSISTED EGD 2021-06-07 10:59:00 [facility] (ESOPHAGOGASTRODUODENOSCOP [facility] r Y) PROCEDURE W/ DAVINCI XI 2021-06-07 10:59:00 [facility] POCT , URINE 2021-06-07 09:06:00 Paris Schrader [facility] POCT-GLUCOSE METER 2021-06-07 09:01:00 [facility] TYPE AND SCREEN, AUTOMATED 2021-06-07 08:56:00 Paris Schrader [facility] SARS-COV2/RT-PCR ([facility] & 2021-06-06 15:16:00 [facility] REF LABS) [facility] POCT-GLUCOSE METER 2021-05-30 11:29:00 Jozef Mckinnon [facility] REPORT OF PROCEDURE - 2021-05-30 08:54:16 Pepper Lewis [facility] ENDOSCOPY URL Center POCT-GLUCOSE METER 2021-05-30 08:49:00 Jozef Mckinnon [facility] EGD 2021-05-30 07:50:00 Pepper Lewis [facility] (ESOPHAGOGASTRODUODENOSCOP Cente r Y) POCT-GLUCOSE METER 2021-05-30 07:39:00 Jozef Mckinnon [facility] CBC W/PLT COUNT & AUTO 2021-05-30 07:00:00 Madihaey-Itterasto [facility] DIFFERENTIAL [place] BASIC METABOLIC PANEL 2021-05-30 07:00:00 [facility] CBC W/PLT COUNT & AUTO 2021-05-30 07:00:00 JamieItzel [facility] DIFFERENTIAL [place] POCT-GLUCOSE METER 2021-05-29 20:50:00 PratibhaJozef [facility] POCT-GLUCOSE METER 2021-05-29 17:54:00 Pratibha [facility]re [facility] POCT-GLUCOSE METER 2021-05-29 15:07:00 Pratibha [facility] Cooper[facility]andre [facility] POCT-GLUCOSE METER 2021-05-29 12:39:00 Pratibha Armandokaiser [facility] ECG 12-LEAD 2021-05-29 12:30:55 Unknown, Hl7 Doctor [facility] ECG 12-LEAD 2021-05-29 12:30:50 Pratibha [facility] ECG 12-LEAD 2021-05-29 12:30:50 Unknown, Hl7 Doctor [facility] REPORT OF PROCEDURE - 2021-05-29 10:15:52 Pepper Lewis [facility] ENDOSCOPY [facility] Center POCT-GLUCOSE METER 2021-05-29 10:08:00 PratibhaJozefhir [facility] EGD 2021-05-29 09:28:00 Pepper Lewis [facility] (ESOPHAGOGASTRODUODENOSCOP Cente r Y) POCT-GLUCOSE METER 2021-05-29 08:15:00 PratibhaJozefhir [facility] CBC W/PLT COUNT & AUTO 2021-05-29 07:17:00 Murrey-Itterasto [facility] DIFFERENTIAL [place] CBC W/PLT COUNT & AUTO 2021-05-29 07:17:00 Madihaey-Itterasto [facility] DIFFERENTIAL [place] BASIC METABOLIC PANEL 2021-05-29 05:24:00 [facility] POCT-GLUCOSE METER 2021-05-28 21:30:00 Michelle Spain [facility] POCT-GLUCOSE METER 2021-05-28 20:40:00 Michelle Spain [facility] POCT-GLUCOSE METER 2021-05-28 17:58:00 Michelle Spain [facility] POCT-GLUCOSE METER 2021-05-28 11:47:00 Michelle Spain [facility] POCT-GLUCOSE METER 2021-05-28 11:14:00 Michelle Spain [facility] POCT-GLUCOSE METER 2021-05-28 10:49:00 Michelle Spain [facility] XR ABDOMEN 2 VIEWS FLAT 2021-05-28 09:12:00 Abraham Longo [facility] AND UPRIGHT [facility] POCT-GLUCOSE METER 2021-05-28 06:10:00 [facility] POCT-GLUCOSE METER 2021-05-28 05:38:00 [facility] XR ABDOMEN/KUB 1 VIEW 2021-05-28 04:09:00 [facility] SARS-COV2/RT-PCR ([facility] & 2021-05-28 02:02:00 Yosi Wagner [facility] REF LABS) [place] BASIC METABOLIC PANEL 2021-05-28 02:02:00 Yosi Wagner [facility] HCG, QUANTITATIVE, 2021-05-28 02:02:00 Yosi Wagner [facility] CBC W/PLT COUNT & AUTO 2021-05-28 02:02:00 ApYosi ramirez [facility] DIFFERENTIAL [place] CBC W/PLT COUNT & AUTO 2021-05-28 02:02:00 Yosi Wagner [facility] DIFFERENTIAL Center MR Ankle wo contrast [id number] 2018-09-30 00:00:00 [facility] Appendectomy [facility] section [facility] n Cholecystectomy [facility] Endoscopy [facility] Insertion of insulin [facility] pump<sup>1</sup> Removal of insulin pump [facility] Vaginal delivery of fetus Sherita Ovalles Plan of Care Planned Activity Planned Date Details Comments Source Future Scheduled 2030-08-31 DTAP/TDAP/TD VACCINES ([address] [facility] 00:00:00 - Td or Tdap) [code = Medica l Center DTAP/TDAP/TD VACCINES (3 - Td or Tdap)] Future Scheduled 2030-08-31 DTAP/TDAP/TD VACCINES ([address] [facility] Test 00:00:00 - Td or Tdap) [code = Medica l Center DTAP/TDAP/TD VACCINES (3 - Td or Tdap)] Future Scheduled 2030-08-31 DTAP/TDAP/TD VACCINES ([address] [facility] Test 00:00:00 - Td or Tdap) [code = Medica l Center DTAP/TDAP/TD VACCINES (3 - Td or Tdap)] Future Scheduled 2023-02-15 IMM Influenza [facility] 00:00:00 (>/= 19 yrs) [code = IMM Influenza Seasonal (>/= 19 yrs)] Future Scheduled 2023-01-16 INFLUENZA VACCINE (Season [facility] 00:00:00 Ended) [code = INFLUENZA Med ical Center VACCINE (Season Ended)] Future Scheduled 2023-01-16 Influenza Vaccine (#1) [facility] 00:00[facility]00 [code = Influenza Vaccine In dical Center (#1)] Future Scheduled 2022-06-[address] [facility] Test 00:00:00 Counseling and Screening [facility] (12+) [code = Tobacco Cessation Counseling and Screening (12+)] Future Scheduled 2022-06-[address] [facility] Test 00:00:00 Counseling and Screening [facility] (12+) [code = Tobacco Cessation Counseling and Screening (12+)] Future Scheduled 2022-06-[address] [facility] Test 00:00:00 Counseling and Screening [facility] (12+) [code = Tobacco Cessation Counseling and Screening (12+)] Future Scheduled 2022-05-[address] [facility] Test 00:00:00 (12+) [code = DEPRESSION Med ical Center SCREENING (12+)] Future Scheduled 2022-05-[address] [facility] Test 00:00:00 (12+) [code = DEPRESSION Med ical Center SCREENING (12+)] Future Scheduled 2022-02-15 IMM Influenza [facility]al [facility] 00:00:00 (>/= 19 yrs) [code = IMM Influenza Seasonal (>/= 19 yrs)] Future Scheduled 2022-02-15 IMM Influenza [facility]al [facility] 00:00:00 (>/= 19 yrs) [code = IMM Influenza Seasonal (>/= 19 yrs)] Future Scheduled 2022-01-16 INFLUENZA VACCINE (#1) [facility] 00:00:00 [code = INFLUENZA VACCINE In dical Center (#1)] Future Scheduled 2021-05-[address] [facility] 00:[facility]:00 measurement (procedure) [facility] [code = 40549134] Future Scheduled 2021-05-[address] [facility] 00:00:00 measurement (procedure) [facility] [code = 59469584] Future Scheduled 2021-05-[address] [facility] 00:00:00 measurement (procedure) [facility] Center [code = 14423843] Future Scheduled 2020 Screening for malignant [facility] 00:00:00 neoplasm of cervix (procedure) [code = 977333303] Future Scheduled 2020 Screening for malignant [facility] 00:00:00 neoplasm of cervix (procedure) [code = 965275336] Future Scheduled 2020 Screening for malignant [facility] 00:00:00 neoplasm of cervix (procedure) [code = 893705489] Future Scheduled 2020 Screening for malignant [facility] 00:00:00 neoplasm of cervix (procedure) [code = 280481458] Future Scheduled 2020 Screening for malignant [facility] 00:00:00 neoplasm of cervix (procedure) [code = 961022907] Future Scheduled 2020 Screening for malignant [facility] 00:00:00 neoplasm of cervix (procedure) [code = 509183664] Future Scheduled 2013-11-30 PNEUMOCOCCAL VACCINE 0-[address] [facility] Test 00:00:00 YRS (2 - PCV) [code = [facility] PNEUMOCOCCAL VACCINE 0-64 YRS (2 - PCV)] Future Scheduled 2011-08-02 Screening for malignant [facility] Test 00:00:00 neoplasm of cervix Medical C enter (procedure) [code = 211789358] Future Scheduled 2011-08-02 Screening for malignant [facility] Test 00:00:00 neoplasm of cervix Medical C enter (procedure) [code = 696846990] Future Scheduled 2011-08-02 Screening for malignant [facility] Test 00:00:00 neoplasm of cervix Medical C enter (procedure) [code = 482940831] Future Scheduled 2010 Lipid panel (procedure) [facility] 00:00:00 [code = 10474502] Medical Ce nter Future Scheduled 2010 Lipid panel (procedure) [facility] 00:00:00 [code = 92131589] Medical Ce nter Future Scheduled 2010 Lipid panel (procedure) [facility] 00:00:00 [code = 39534989] Medical Ce nter Future Scheduled [address] [facility] 00:00:00 virus screening Medical Cent er (procedure) [code = 843374820] Future Scheduled 2000 DIABETIC EYE EXAM [code = [facility] 00:00:00 DIABETIC EYE EXAM] Medical C enter Future Scheduled 2000 Diabetic foot examination [facility] Test 00:00:00 (regime/therapy) [code = Med [facility] Center 508115130] Future Scheduled 2000 Urine screening for [facility] 00:00:00 protein (procedure) [code Me dical Center = 403056945] Future Scheduled 2000 DIABETIC EYE EXAM [code = [facility] Test 00:00:00 DIABETIC EYE EXAM] Medical C enter Future Scheduled 2000 Diabetic foot examination [facility] Test 00:00:00 (regime/therapy) [code = Med ical Center 154852602] Future Scheduled 2000 Urine screening for [facility] Test 00:00:00 protein (procedure) [code Me dical Center = 981887505] Future Scheduled 2000 DIABETIC EYE EXAM [code = [facility] Test 00:00:00 DIABETIC EYE EXAM] Medical C enter Future Scheduled 2000 Diabetic foot examination [facility] Test 00:00:00 (regime/therapy) [code = Med ical Center 148260550] Future Scheduled 2000 Urine screening for [facility] 00:00:00 protein (procedure) [code [facility] = 179863442] Future Scheduled 1991-02-01 COVID-19 Vaccine (#1) [facility] 00:00:00 [code = COVID-19 Vaccine (#1)] Future Scheduled 1991-02-01 COVID-19 Vaccine (#1) [facility] 00:00:00 [code = COVID-19 Vaccine (#1)] Future Scheduled 1991-02-01 COVID-19 Vaccine (#1) [facility] 00:00:00 [code = COVID-19 Vaccine (#1)] Future Scheduled 1991-02-01 COVID-19 VACCINE [facility]00 [code = COVID-19 VACCINE Med ical Center (#1)] Future Scheduled 1991-02-01 COVID-19 VACCINE (#1) [facility] 00:00:00 [code = COVID-19 VACCINE Med ical Center (#1)] Future Scheduled 1991-02-01 COVID-19 VACCINE (#1) [facility] 00:00:00 [code = COVID-19 VACCINE Med ical Center (#1)] Encounters Start End Encounter Admission Attending Care Care Encounter Source Date/Time Date/Time Type Type Clinicians Facility Department ID 2022-12-01 [facility] [id number] Common 13:09:00 Ramiro [id number] [facility] 2022-11-10 [facility] [id number] Common 15:47:01 Ramiro 95491 [facility] 2022-10-14 Outpatient Blanco, [facility] [id number] Common 13:49:01 Ramiro 97502 [facility] 2022-04-01 Outpatient Blanco, [facility] [id number] Common 08:28:02 Ramiro 51945 [facility] 2022-03-06 Outpatient Blanco, [facility] [id number] Common 10:01:04 Ramiro [facility] 2022-03-04 Outpatient Blanco, [facility] [id number] Common 10:02:02 Ramiro [facility] 2022-01-21 Outpatient Blanco, [facility] [id number] Common 09:24:06 Ramiro 33994 [facility] 2021-08-20 Outpatient EL BENITO-HAYN [facility] Surgery [id number] [facility] 15:44:15 EMA MICHEL 2021-08-10 Outpatient [facility] LS [id number] [place]one 09:47:50 [facility] 2021-03-19 Emergency [facility] [id number] Univers 03:00:34 [facility] 2021-03-17 Emergency [facility] [id number] Univers 13:32:08 [facility] 2021-03-17 Emergency [facility] [id number] Univers 12:05:06 [facility] 2021-02-23 Outpatient BENITO-HAYN [facility] Surgery [id number] [facility] 06:24:22 EMA MICHEL 2021-02-22 Outpatient BENITO-HAYN [facility] Surgery [id number] [facility] 20:20:42 MICHEL 2021-02-22 Outpatient BENITO-HAYN [facility] Surgery [id number] [facility] 18:47:36 MICHEL 2020-10-14 Inpatient HCACL HCACL [id number] [facility] 08:33:37 68 [facility] 2019-06-25 Inpatient HCABM RHONDA [id number] [facility] 23:52:00 55 [facility] 2016-10-05 Inpatient [facility] [id number] Ann rris 06:39:25 [facility] 2023-01-20 2023-01-20 Outpatient Rigo AMBRIZ [facility] [id number] Univers 14:00:00 14:00:00 WILDER [facility] 2022-12-09 2022-12-09 [facility] [id number] Univers 00:00:00 00:00:00 Jose Cruz [employer] [id number] it y of [place] 4.2.7.2.686 Perico as HERBIE?BLEA [phone] In andrew [address] [address] MEDICAL OFFICE [facility] 2022-12-08 2022-12-08 Telephone [facility] [id number] Univers 00:00:00 00:00:00 Jose Cruz [employer] [id number] it y of [place] 4.2.7.2.686 Perico as HERBIE?BLEA [phone] [facility] [address] [facility] OFFICE [facility] 2022-12-05 2022-12-05 Scale [facility] Lab, [facility] 1.2.840.1 [id number] Univers 15:00:00 16:24:01 Visit Earlene Jose Cruz [employer] [id number] ity of [place] 4.2.7.2.686 Perico as HERBIE?BLEA [phone] In andrew NEWMAN [address] [facility] OFFICE [facility] 2022-12-05 2022-12-05 Outpatient [facility] [id number] Univers 13:30:00 15:08:11 JOSE CRUZ ittamara [facility] 2022-12-05 2022-12-05 Office [facility] [id number] Univers 13:30:00 15:08:11 Visit Jose Cruz [employer] [id number] it y of [place] 4.2.7.2.686 Perico as HERBIE?BLEA [phone] In andrew [address] [address] [facility] OFFICE [facility] 2022-12-05 2022-12-05 Refill [facility] [id number] Univers 00:00:00 00:00:00 Jose Cruz [employer] [id number] it y of [place] 4.2.7.2.686 Perico as HERBIE?BLEA [phone] In andrew NEWMAN [address] [facility] OFFICE [facility] 2022-12-05 2022-12-05 Orders Doctor GARETH 1.2.840.114 [id number] Univers 00:00:00 00:00:00 Only Unassigned, JYOTI [id number] ity of [place] [facility] 4.2.7.2.686 Perico as [phone] [address] 2022-10-31 2022-10-31 Outpatient [facility] [id number] Univers 10:00:00 10:00:00 JOSE CRUZ ity of [facility] 2022-10-23 2022-10-23 Telephone [facility] 1.2.840.114 [id number] Univers 00:00:00 00:00:00 Jose Cruz [employer] [id number] it y of [place] 4.2.7.2.686 Perico as HERBIE?BLEA [phone] [address] OFFICE [facility] 2022-08-25 2022-08-25 Telephone [facility] 1.2.840.114 [id number] Univers 00:00:00 00:00:00 Jose CruzSonarworks 350.1.13.10 it y of [place] 4.2.7.2.686 Perico as HERBIE?BLEA [id number] [address] OFFICE [facility] 2022-06-09 2022-06-09 Telephone [facility] 1.2.840.114 [id number] Univers 00:00:00 00:00:00 Jose Cruz [employer] HEALTH 350.1.13.10 it y of [place] 4.2.7.2.686 Perico as HERBIE?BLEA [id number] [address] OFFICE [facility] 2022-05-31 2022-05-31 Telephone [facility] 1.2.840.114 [id number] Univers 00:00:00 00:00:00 Jose Cruz [employer] HEALTH 350.1.13.10 it y of [place] 4.2.7.2.686 Perico as HERBIE?BLEA [id number] [address] OFFICE [facility] 2022-05-30 2022-05-30 Outpatient R [facility] [id number] Univers 15:30:00 16:49:31 JOSE CRUZ ity of [facility] 2022-05-30 2022-05-30 Office [facility] [id number] [id number] Univers 15:30:00 16:49:31 Visit Jose Cruz Stevens HEALTH 350.1.13.10 [facility] 4.2.7.2.686 Perico as HERBIE?BLEA [id number] [address] MEDICAL OFFICE BUILDING 2022-05-30 2022-05-30 Orders Doctor GARETH 1.2.840.114 [id number] Univers 00:00:00 00:00:00 Only Unassigned, JYOTI 350.1.13.10 ity of [place] [facility] 4.2.7.2.686 Perico as [phone] [address] 2022-05-30 2022-05-30 Telephone [facility] 1.2.840.114 [id number] Univers 00:00:00 00:00:00 Jose Cruz Stevens HEALTH 350.1.13.10 it [facility] 4.2.7.2.686 Perico as HERBIE?BLEA [id number] [address] OFFICE [facility] 2022-05-15 2022-05-15 Nurse GARETH Montes 1.2.840.114 [id number] Univers 00:00:00 00:00:00 Triage Mata DAVENPORTY 350.1.13.10 it y of HOSPITAL 4.2.7.2.686 Peirco as [id number] [facility] [address] 2022-05-15 2022-05-15 Telephone [facility] 1.2.840.114 [id number] Univers 00:00:00 00:00:00 Jose Cruz Stevens MULTISPEC 350.1.13.10 [place] of [place] [id number] [address] [facility]ES [facility] 2022-05-13 2022-05-13 Telephone [facility] 1.2.840.114 [id number] Univers 00:00:00 00:00:00 Jose Cruz Stevens HEALTH 350.1.13.10 it y of [place] 4.2.7.2.686 Perico as HERBIE?BLEA [id number] In andrew [address] MEDICAL OFFICE BUILDING 2022-04-24 2022-04-24 Telephone [facility] 1.2.840.114 [id number] Univers 00:00:00 00:00:00 Luis MULTISPEC 350.1.13.10 [place] [id number] [address] [facility] 2022-01-22 2022-01-22 Orders Doctor GARETH 1.2.840.114 [id number] Univers 00:00:00 00:00:00 Only Unassigned, JYOTI 350.1.13.10 ity of [place] [facility] 4.2.7.2.686 Perico as [phone] [address] 2021-10-22 2021-10-22 [facility]ill [facility] 1.2.840.114 [id number] Univers 00:00:00 00:00:00 Luis MULTISPEC 350.1.13.10 [place] [id number] [address] [facility] 2021-08-07 2021-08-07 Orders Doctor GARETH 1.2.840.114 [id number] Univers 00:00:00 00:00:00 Only Unassigned, JYOTI 350.1.13.10 ity of [place] [facility] 4.2.7.2.686 Perico as [id number] [address] 2021-06-28 2021-06-28 Outpatient R CAITLIN [facility] [id number] Univers 08:45:00 08:45:00 LUIS ity of [facility] 2021-06-24 2021-06-24 Telephone [facility] 1.2.840.114 [id number] Univers 00:00:00 00:00:00 Luis MULTISPEC 350.1.13.10 [place] [id number] [address] [facility] 2021-06-23 2021-06-23 Orders Doctor GARETH 1.2.840.114 [id number] Univers 00:00:00 00:00:00 Only Unassigned, JYOTI 350.1.13.10 ity of [place] [facility] 4.2.7.2.686 Perico [id number] [facility] [address] 2021-06-22 2021-06-22 Refjames [facility] 1.2.840.114 [id number] Univers 00:00:00 00:00:00 Luis MULTISPEC 350.1.13.10 ity of [place] 4.2.7.2.686 [facility] [id number] [facility] AND DAVIS [address] DIABETES CLINIC 2021-06-18 2021-06-18 Telephone [facility] 1.2.840.114 [id number] Univers 00:00:00 00:00:00 [facility] 350.1.13.10 it y of FAMILY 4.2.7.2.686 [facility] [phone] Med ical RASHID [address] CLINIC 2021-06-12 2021-06-12 Outpatient Rigo CUTLER [facility] [id number] Univers 14:15:00 14:15:00 [facility] 2021-06-07 2021-06-08 [facility] [id number] 08:18:00 00:55:00 Encounter Michel boo [facility] 2021-06-07 2021-06-08 Outpatient [facility] Surgery [id number] [facility] 08:18:00 00:55:00 MICHEL BOO 2021-06-07 2021-06-07 Anesthesia Guanakito Yadav [facility] [id number] [facility] 11:14:00 16:06:00 Event Lobo Escob[facility] 2021-06-07 2021-06-07 Outpatient Rigo [facility] [id number] [facility] 14:45:00 14:45:00 LUIS [facility] [place] 2021-06-07 2021-06-07 Surgery [facility] [id number] 10:00:00 13:35:00 esMichel [facility] 2021-06-07 2021-06-07 Outpatient Rigo WEN [facility] [id number] Univers 08:30:00 08:30:00 TYRELL kashiftamara [facility] 2021-06-06 2021-06-06 [facility] [id number] SLE 15:15:16 23:59:00 ES, MICHEL 2021-06-06 2021-06-06 [facility] [id number] 15:00:00 23:59:00 Encounter Michel boo ema [facility] 2021-06-06 2021-06-06 Outpatient [facility] [id number] SLEH 11:33:26 14:59:00 ES, [facility] 2021-06-06 2021-06-06 [facility] [id number] [facility] 10:45:00 14:59:00 Encounter Michel boo [facility] 2021-05-27 2021-05-30 Hospital ER Nancy Manning [facility] [id number] [facility] 22:08:00 14:46:00 Encounter Fortino Peñaloza [facility] 2021-05-27 2021-05-30 Inpatient ER ALI, [facility] Emergency [id number] SLEH 22:08:00 14:46:00 2021-05-30 2021-05-30 Surgery Debbie, [facility] [id number] 08:00:00 09:00:00 Pepper Marroquin [facility] 2021-05-30 2021-05-30 Anesthesia Lidya Clay [facility] [id number] 08:00:00 08:36:00 Event Selin Rockwell [facility] 2021-05-292021-05-29 Surgery Debbie, [facility] [id number] 09:35:00 10:35:00 Pepper Marroquin [facility] 2021-05-29 2021-05-29 Anesthesia Chilango Busby [facility] [id number] [facility] 09:38:00 10:09:00 Event DoroteoBobbyy [facility] 2021-05-29 2021-05-29 Orders [facility] [id number] 00:00:00 00:00:00 Only [facility] 2021-05-28 2021-05-28 Outpatient Rigo [facility] [id number] Univers 08:20:00 08:20:00 ity of [facility] 2021-05-27 2021-05-[address] [facility] [id number] [facility] 00:[facility]00 00:00:00 [facility] 2021-05-24 2021-05-24 Outpatient Rigo [facility] [id number] Univers 11:20:00 11:20:00 ity [facility] 2021-05-15 2021-05-15 [facility] 1.2.840.114 [id number] Univers 13:45:49 23:59:00 Encounter Shweta SPECIALTY 350.1.13.10 it[place] [phone] [facility] 807 [facility] 2021-05-15 2021-05-15 Office [facility] 1.2.840.114 [id number] Univers 13:00:00 14:15:23 Visit Shweta SPECIALTY 350.1.13.10 it[place] [phone] In andrew MORRIS 201 [facility] 2021-05-15 2021-05-15 [facility] 1.2.840.114 [id number] Univers 13:43:11 13:44:00 Encounter Shweta SPECIALTY 350.1.13.10 it[place] [phone] In andrew MORRIS [address] [place] 2021-05-15 2021-05-15 Outpatient R BEKA [facility] [id number] Univers 00:00:00 13:44:00 SHWETA [facility] 2021-05-15 2021-05-15 Outpatient R BEKA [facility] [id number] Univers 13:00:00 13:00:00 SHWETA [facility] 2021-05-08 2021-05-08 Outpatient R YEIMI EDMOND [facility] [id number] Univers 09:30:00 09:30:00 y [facility] 2021-05-03 2021-05-03 Outpatient R NAHEED [facility] [id number] Univers 13:40:00 13:40:00 MARIELY [facility] 2021-04-24 2021-04-24 Outpatient R FELI YEIMI [facility] [id number] Univers 09:30:00 09:30:00 [facility] 2021-04-05 2021-04-05 Emergency X ALVARO [facility] ERT [id number] Univers 09:57:00 13:13:00 [facility] 2021-04-05 2021-04-05 Emergency [facility] 1.2.840.114 [id number] Univers 09:57:00 13:13:00 [facility] 350.1.13.10 it y of LEAG[place] 4.2.7.2.686 [facility] [phone] [address] ([facility] 2021-04-04 2021-04-04 Outpatient R MAYELIN MALDONADO [facility] [id number] Univers 15:15:00 15:15:00 [facility] 2021-04-04 2021-04-04 Outpatient R [facility] [id number] Univers 15:15:00 15:15:00 [facility] 2021-03-25 2021-03-25 Emergency X FARRUKH [facility] ERT [id number] Univers 09:15:00 11:13:00 DORINDA [facility] 2021-03-25 2021-03-25 Emergency Farrukh [facility] 1.2.811.075 [id number] Univers 09:15:00 11:13:00 [facility] 350.1.13.10 it y of NELLIE 4.2.7.2.686 [facility] [phone] [address] ([facility]) 2021-03-25 2021-03-25 Emergency X FARRUKH [facility] ERT [id number] Univers 09:15:00 11:13:00 DORINDA ity [facility] 2021-03-19 2021-03-19 Outpatient R IBIDAPO-OBE [facility] [id number] Univers 11:00:00 11:31:09 , ity of [facility] 2021-03-19 2021-03-19 Outpatient R IBIDAPO-OBE [facility] [id number] Univers 11:00:00 11:31:09 , ity of [facility] 2021-03-19 2021-03-19 Office Red Xiong [facility] 1.2.84 0.114 [id number] Univers 10:50:44 11:31:09 Visit [facility] 350.1. 13.10 ity of FAMILY 4.2.7.2.686 [facility] [phone] Med [address] 2021-03-18 2021-03-18 Emergency [facility] ERT [id number] Univers 09:26:00 11:47:00 KATHLEEN porter [facility] 2021-03-18 2021-03-18 Emergency [facility] ERT [id number] Univers 09:26:00 11:47:00 KATHLEEN [facility] 2021-03-18 2021-03-18 Emergency [facility] 1.2.709.068 [id number] Univers 09:26:00 11:47:00 [facility] 350.1.13.10 it y of Sowmya BALLARD 4.2.7.[address] [place] [phone] ([facility]) 2021-03-12 2021-03-12 Outpatient R IBIDAPO-OBE [facility] [id number] Univers 15:30:00 15:30:00 , ity of OYETOKUNBO [facility] 2021-03-01 2021-03-01 Hospital Radiology [facility] 1.2.840.114 [id number] Univers 08:55:47 23:59:00 Encounter SPECIALTY 350.1.13.10 ity of CARE 4.2.7.2.686 [place] [facility] AT [phone] In andrew S[address] 2021-03-01 2021-03-01 Outpatient R RADIOLOGY [facility] [id number] Univers 09:00:00 09:00:00 ity of [facility] 2021-02-15 2021-02-15 Emergency [facility] 1.2.205.656 [id number] Univers 10:02:00 11:20:00 [facility] 350.1.13.10 it y of League 4.2.7.2.686 [facility] [phone] [address] ([facility]) 2021-01-21 2021-01-21 Nurse Therapy, Clc Covid Infusion [facility] 1.2.840.114 [id number] Univers 08:10:16 09:10:16 Visit Wilver Rabago [facility] 350.1.13.10 ity of [place].2.686 [place] [phone] [facility] [address] Office Building 2021-01-21 2021-01-21 Outpatient R JACOBO [facility] [id number] Univers 08:30:00 08:30:00 WILVER porter of [facility] 2021-01-21 2021-01-21 Orders Doctor DE LA ROSA 1.2.840.114 [id number] Univers 00:00:00 00:00:00 Only Unassigned, JYOTI 350.1.13.10 ity of [place] [facility] 4.2.7.2.686 [place] [phone] [place] [address] [address] 2021-01-20 2021-01-20 Telephone GARETH Winslow 1.2.073.892 [id number] Univers 00:00:00 00:00:00 Shannan MONTES 350.1.13.10 it y of [facility] 4.2.7.2.686 [facility] [phone] [place] [address] [address] 2021-01-19 2021-01-19 Outpatient R UNKNOWN, [facility] [id number] Univers 19:45:00 19:45:00 ATTENDING ity [facility] 2021-01-19 2021-01-19 Urgent Care, [place] Urgent [facility] 1.2.840.1 14 [id number] Univers 18:18:12 19:08:38 Care Unknown, Attending HEALTH 350.1.13.10 ity [facility] 4.2.7.2.6 86 [place] [phone] [facility] 2021-01-10 2021-01-10 Outpatient GCCOVIDV GCCOVIDV [id number] GCCOVID 00:00:00 00:00:00 V 2020-12-28 2020-12-28 Outpatient R CAITLIN, [facility] [id number] Univers 13:45:00 13:45:00 LUIS [facility] 2020-12-27 2020-12-27 Emergency nullFlavo [place] [id number] Memoria 18:56:22 20:14:00 [facility]-ED 35 l (EDL) [place] 2020-12-27 2020-12-27 Emergency nullFlavo [place] [id number] Memoria 18:56:22 20:14:00 [facility]-ED 35 l ([facility]) [place] 2020-12-27 2020-12-27 Outpatient Monty Blankenship SE MHSE [id number] 13:56:22 15:14:00 Zuleika 35 2020-12-27 2020-12-27 Emergency E MONTY [facility] [id number] 13:56:00 15:14:[address] [facility] 2020-11-07 2020-11-07 Outpatient Rigo MORENO [facility] [id number] Univers 09:45:00 09:45:00 HORACE [facility] 2020-10-29 2020-10-29 Outpatient R CANDIS JALLOH [facility] [id number] Univers 14:45:00 14:45:00 ity of [facility] 2020-10-04 2020-10-05 Emergency nullFlavo [place] [id number] Memoria 22:16:05 00:19:00 [facility] [place] 2020-10-04 2020-10-05 Emergency nullFlavo [place] [id number] Memoria 22:16:05 00:19:00 [facility] 34 l (EDL) [place] 2020-10-04 2020-10-04 Outpatient Calin, MHSE MHSE [id number] 17:16:05 19:19:00 Paris Segura 2020-10-04 2020-10-04 Emergency E CALIN, MHSE MHSE [id number] MH 17:16:00 19:19:00 PARIS wells [facility] 2020-09-26 2020-09-26 Office [facility] 1.2.840.114 [id number] [facility] 12:32:04 13:37:05 Visit Lusi KOWALKSIPEC 350.1.13.10 ity of IALT 4.2.7.2.686 [facility] [phone] [facility] AND [address] [facility]ES [facility] 2020-09-26 2020-09-26 Outpatient [facility] [id number] Univers 12:30:00 12:30:00 [facility] 2020-09-26 2020-09-26 Telephone [facility] 1.2.840.114 [id number] 00:00:00 00:00:00 Luis MULTISPEC 350.1.13.10 IALTY 4.2.7.2.686 [place] [phone] AND RYAN [facility]ES [facility] 2020-09-26 2020-09-26 Orders Doctor DE LA ROSA 1.2.840.114 [id number] Univers 00:00:00 00:00:00 Only Unassigned, JYOTI 350.1.13.10 ity of [place] [facility] 4.2.7.2.686 [facility] [phone] [address] 2020-09-26 2020-09-26 Telephone [facility] 1.2.840.114 [id number] Univers 00:00:00 00:00:00 [facility] 350.1.13.10 ity of IALTY 4.2.7.2.686 [facility] [place] [phone] [address] [facility]ES [facility]INIC 2020-09-26 2020-09-[address] [facility] 1.2.840.114 [id number] Univers 00:00:00 00:00:00 [facility] MULTISPEC 350.1.13.10 ity of IALTY 4.2.7.2.686 [facility] [phone] [address] [facility]ES [facility]INIC 2020-09-23 2020-09-24 Emergency nullFlavo [place] [id number] Memoria 21:17:15 00:59:00 [facility]- 33 l ([facility]) [place] 2020-09-23 2020-09-24 Emergency nullFlavo [place] [id number] Memoria 21:17:15 00:59:00 [facility]-ED 33 l ([facility]) [place] 2020-09-23 2020-09-23 Outpatient Visdeborayajeovanya MHSE MHSE [id number] 16:17:15 19:59:00 , Madelyn 33 2020-09-23 2020-09-23 Emergency E JOHN MHSE MHSE [id number] 16:17:00 19:59:00 , MADELYN Peterson [facility] 2020-08-31 2020-08-[address] [facility] 1.2.748.769 [id number] [facility] 19:16:00 21:41:00 [facility] 350.1.13.10 it y of Clear 4.2.7.2.686 [facility] [phone] [address] (CLC) 2020-08-26 2020-08-26 Emergency Swanson, [facility] 1.2.840.114 [id number] Univers 10:04:00 14:38:00 Jose [facility] 350.1.13.10 it y of League 4.2.7.2.686 [facility] [phone] [address] ([facility]) 2020-08-06 2020-08-06 Outpatient SLEH SLEH [id number] SLEH 00:00:00 00:00:00 2020-08-03 2020-08-03 Outpatient EL SLEH SLEH [id number] SLEH 00:00:00 00:00:00 2020-08-03 2020-08-03 Outpatient EL SLEH SLEH [id number] SLEH 00:00:00 00:00:00 2020-06-15 2020-06-15 Emergency Farrukh [facility] 1.2.780.031 [id number] Univers 10:37:00 13:33:00 [facility] 350.1.13.10 it y of League 4.2.7.2.686 [facility] [phone] [address] ([facility]) 2020-06-15 2020-06-15 Emergency X FARRUKH [facility] ERT [id number] Univers 10:37:00 13:33:00 DORINDA [facility] 2020-05-29 2020-05-29 Emergency [facility] 1.2.435.060 [id number] Univers 01:02:00 05:10:00 [facility] 350.1.13.10 it y of League 4.2.7.2.686 [facility] [phone] [address] ([facility]) 2020-05-29 2020-05-29 Emergency X LINCOLN [facility] ERT [id number] Univers 01:02:00 05:10:00 YONI y [facility] 2020-05-21 2020-05-21 Outpatient EL SLEH SLEH [id number] SLEH 00:00:00 00:00:00 2020-05-03 2020-05-03 Outpatient EL SLEH SLEH [id number] SLEH 00:00:00 00:00:00 2020-04-04 2020-04-04 [facility] Tim [facility] 1.2.840.114 [id number] Univers 10:00:00 23:59:00 Encounter Cruz M SPECIALTY 350.1.13.10 ity of C[place].2.[place].2.686 [place] [phone] In andrew MORRIS 804 [facility] 2020-04-04 2020-04-04 Outpatient R TIM [facility] [id number] Univers 00:00:00 00:00:00 [facility] 2020-03-28 2020-03-28 Outpatient R TIM [facility] [id number] Univers 10:45:00 [facility]:45:[facility] 2020-03-28 2020-03-28 Scale Mechanic Vls-Lab [facility] 1.2.840.114 [id number] Univers 10:29:49 10:44:49 Visit Cruz Dumont SPECIALTY 350.1.13.1 0 ity of C[place].2.7.2.686 [place] AT [phone] In andrew MORRIS 353 [facility] 2020-03-22 2020-03-22 [facility] 1.2.840.114 [id number] Univers 08:30:00 23:59:00 Encounter Cruz Gregory SPECIALTY 350.1.13.10 ity of C[place].2.7.2.686 [place] [phone] In andrew MORRIS 805 [facility] 2020-03-22 2020-03-22 Outpatient R TIM [facility] [id number] Univers 00:00:00 00:00:00 [facility] 2020-03-06 2020-03-06 Emergency Vito, TRAUMA 1.2.742.929 [id number] Univers 10:28:00 12:30:00 [facility] 350.1.13.10 [place].2.686 [place] [phone] [address] 2020-03-06 2020-03-06 Emergency X MARIAELENA PADRON [facility] ERT 1 [id number] Univers 10:28:00 10:28:00 VITOMARIAELENA Grajeda ity [facility] 2020-02-19 2020-02-22 [facility] Hallie Payne [facility] 1.2.840.11 [id number] Univers 11:34:00 23:35:00 Encounter Evelia Welshalia [facility] 350.1.13.10 ity of [place] 4.2.7.2.686 [place] [phone] [address] ([facility]) 2020-02-19 2020-02-19 Emergency X JOSE [facility] ERT [id number] Univers 11:34:00 11:34:00 CYNMEGHANN ittamara [facility] 2020-01-15 2020-01-15 Emergency [facility] 1.2.770.558 [id number] Univers 18:09:00 18:46:00 [facility] 350.1.13.10 it y of League 4.2.7.2.686 [facility] [phone] [address] ([facility]) 2020-01-15 2020-01-15 Emergency X [facility] ERT [id number] Univers 18:03:00 18:03:00 DORINDA ittamara [facility] 2019-12-18 2019-12-18 Emergency [facility] 1.2.518.896 [id number] Univers 11:22:00 14:42:00 Yoni [facility] 350.1.13.10 it y of [place] 4.2.7.2.686 [facility] [phone] [address] ([facility]) 2019-12-18 2019-12-18 Emergency Sheyla [facility] ERT [id number] Univers 11:22:00 11:22:00 YONI rowlandtamara [facility] 2019-12-07 2019-12-07 Emergency ER LYTWRICKIE, [facility] Emergency [id number] WH 22:33:00 22:33:00 ENMA 2019-09-02 2019-09-02 Emergency [facility] [id number] 16:28:00 16:28:00 [id number] 2019-06-26 2019-06-26 Outpatient TANGELA Chung [id number] [facility] 07:29:00 07:29:[address] [place] [address] 2019-02-16 2019-02-16 Outpatient JAYIE MISA [id number] Memoria 08:20:00 08:20:00 15 natalya [place] 2019-02-16 2019-02-16 Outpatient MHIE IE [id number] Memoria 08:20:00 08:20:00 15 natalya [place] 2019-01-11 2019-01-13 Phone nullFlavo MNA [id number] Memoria 12:36:30 04:59:59 Message r Neuroscienc 00 l e [facility] 2019-01-11 2019-01-13 Phone nullFlavo MNA [id number] Memoria 12:36:30 04:59:59 Message r Neuroscienc 00 l e [facility] 2019-01-11 2019-01-12 Outpatient MHMISCHER MHMISCHER [id number] 07:36:30 23:59:59 00 2018-12-18 2018-12-18 Emergency nullFlavo [facility] [id number] Memoria 06:10:38 08:48:00 r Randal 32 l [facility] 2018-12-18 2018-12-18 Emergency nullFlavo [facility] [id number] Memoria 06:10:38 08:48:00 r Randal 32 l [facility] 2018-12-18 2018-12-18 Outpatient Fiorella [facility] [id number] 01:10:38 03:48:00 Elder [place] 32 2018-09-30 2018-11-19 [facility] [id number] 13:45:00 14:49:23 2018-10-12 2018-10-12 Emergency nullFlavo [facility] [id number] Memoria 06:46:27 10:55:00 r Randal 31 l [facility] 2018-10-12 2018-10-12 Emergency nullFlavo [facility] [id number] Memoria 06:46:27 10:55:00 r Randal 31 l [facility] 2018-10-12 2018-10-12 Outpatient Kyree Moreno [facility] [id number] 01:46:27 05:55:00 Elijah 31 2018-09-30 2018-09-30 AppointROWAN Guthrie [facility] [id number] [place] 13:45:00 13:45:00 t; JESSICA CUTLER [facility] Jerod LOPEZ M.D. 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 4 [id number] Memoria 21:20:00 04:59:59 [place] 13 [facility] reynaldo 2018-09-08 2018-09-[address] in waiter/waitress 4 [id number] Memoria 21:20:00 04:59:59 r [place] 13 [facility] reynaldo 2018-09-08 2018-09-08 Outpatient Bart, [facility] [id number] 16:20:00 23:59:59 Brooke Moore 13 2018-09-08 2018-09-[address] in waiter/waitress 4 [id number] Memoria 21:20:00 21:20:00 Pre-Reg r [place] 11 [facility] reynaldo 2018-09-08 2018-09-[address] in waiter/waitress 4 [id number] Memoria 21:20:00 21:20:00 Pre-Reg r [place] 12 [facility] reynaldo 2018-09-08 2018-09-[address] in waiter/waitress 4 [id number] Memoria 21:20:00 21:20:00 Pre-Reg r [place] 11 [facility] reynaldo 2018-09-08 2018-09-[address] in waiter/waitress 4 [id number] Memoria 21:20:00 21:20:00 Pre-Reg r [place] 12 [facility] reynaldo 2018-09-08 2018-09-08 Outpatient MHIE IE [id number] Memoria 16:20:00 16:20:00 13 natalya [place] 2018-09-08 2018-09-08 Outpatient MHIE IE [id number] Memoria 16:20:00 16:20:00 12 natalya Lainez[place] 2018-09-08 2018-09-08 Outpatient IE IE [id number] Memoria 16:20:00 16:20:00 11 natalya [place] 2018-09-08 2018-09-08 Outpatient Colon-Celso [facility] [id number] 16:20:00 16:20:00 Brenda don 2018-09-08 2018-09-08 Outpatient Conrado [facility] [id number] 16:20:00 16:20:00 Long Gore 2018-08-03 2018-08-04 Emergency nullFlavo [facility] [id number] Memoria 17:51:00 02:43:00 r Randal 29 l [facility] 2018-08-03 2018-08-04 Emergency nullFlavo [facility] [id number] Memoria 17:51:00 02:43:00 r Randal 29 l [facility] 2018-08-03 2018-08-03 Outpatient Ron, Rik [facility] [id number] 12:51:00 21:43:00 Rubena 29 2018-08-03 2018-08-03 Appointmen ROWAN UMANZOR UTP [id number] [place] 09:50:00 09:50:00 t; [place] UMANZOR, Ph ysici Jerod TOLEDO ans MRobert 2018-07-28 2018-07-29 Between nullFlavo [facility] in waiter/waitress [id number] Memoria 23:31:47 23:31:47 Visit r [address] 2018-07-28 2018-07-29 Between nullFlavo [facility] in waiter/waitress [id number] Memoria 23:31:47 23:31:47 Visit r [facility] 28 Located within [facility] 2018-07-28 2018-07-29 Outpatient [facility] [id number] 18:31:47 18:31:47 28 2018-07-23 2018-07-24 Between nullFlavo [facility] in waiter/waitress [id number] Memoria 18:26:42 18:26:42 Visit r [place] 27 l [facility] 2018-07-23 2018-07-24 Between nullFlavo [facility] in waiter/waitress [id number] Memoria 18:26:42 18:26:42 Visit r Angel 27 l [facility] 2018-07-23 2018-07-24 Outpatient [facility] [id number] 12:26:42 12:26:42 27 2018-07-22 2018-07-23 Outpt Diag nullFlavo [facility] [id number] Memoria 16:05:00 05:59:00 Services r Outpatient 01 l [facility] 2018-07-22 2018-07-23 Outpt Diag nullFlavo [facility] [id number] Memoria 16:05:00 05:59:00 Services r Outpatient 01 l [facility] 2018-07-22 2018-07-22 Outpatient OC Arriaga [id number] 10:05:00 23:59:00 Brooke Moore 2018-07-19 2018-07-[address] in waiter/waitress 4 [id number] Memoria 19:40:00 05:59:59 r [place] 10 l [facility] reynaldo 2018-07-19 2018-07-[address] in waiter/waitress 4 [id number] Memoria 19:40:00 05:59:59 r [place] 10 l [facility] 2018-07-19 2018-07-19 Outpatient Conrado [facility] [id number] 13:40:00 23:59:59 Long Michelle 10 2018-07-19 2018-07-19 Outpatient JAYIE IE [id number] Memoria 13:40:00 13:40:00 10 l [place] 2018-07-16 2018-07-17 [facility] [id number] Memoria 22:37:00 00:42:00 r [place] 25 l [facility] 2018-07-16 2018-07-17 Emergency [facility] [id number] Memoria 22:37:00 00:42:00 r [place] 25 l [facility] 2018-07-16 2018-07-16 Outpatient Jasen [facility] [id number] 16:37:00 18:42:00 Luis A Brennan 2018-07-15 2018-07-15 Emergency [facility] [id number] Memoria 19:08:00 19:40:00 r [place] 24 l [facility] 2018-07-15 2018-07-15 Emergency [facility] [id number] Memoria 19:08:00 19:40:00 r [place] 24 l [facility] 2018-07-15 2018-07-15 Outpatient Ita [facility] [id number] 13:08:00 13:40:00 Yong Montiel 2018-07-12 2018-07-[address] [address] in waiter/waitress [id number] Memoria 17:21:26 17:21:26 Visit rigo Guadarrama natalya Evans [place] 2018-07-12 2018-07-[address] [facility] [address] waiter/waitress [id number] Memoria 17:21:26 17:21:26 Visit [facility] Cristina Lagrange 2018-07-12 2018-07-13 Outpatient [facility] MG [id number] 11:21:26 11:21:26 23 2018-07-09 2018-07-[address] [facility] [address] in waiter/waitress 4 [id number] Memoria 17:20:00 05:59:59 [facility] [place] [facility] 2018-07-09 2018-07-[address] [facility] [address] in waiter/waitress 4 [id number] Memoria 17:20:00 05:59:59 r [place] [facility] 2018-07-09 2018-07-09 Outpatient Bart, MG [facility] [id number] 11:20:00 23:59:59 Brooke Moore 2018-07-09 2018-07-09 Outpatient MHIE MHIE [id number] Memoria 11:20:00 11:20:00 09 natalya Lagrange 2018-06-25 2018-06-[address] [facility] [address] in waiter/waitress 4 [id number] Memoria 16:00:00 16:00:00 Pre-Reg r [place] [facility] 2018-06-25 2018-06-[address] [facility] [address] in waiter/waitress 4 [id number] Memoria 16:00:00 16:00:00 [facility]Reg r [place] [facility] 2018-06-25 2018-06-[address] [address] in waiter/waitress 4 [id number] Memoria 16:00:00 16:00:00 [facility]Reg r [place] [facility] 2018-06-25 2018-06-[address] [facility] [address] in waiter/waitress 4 [id number] Memoria 16:00:00 16:00:00 [facility]Reg r [place] [facility] 2018-06-25 2018-06-25 Outpatient MHIE MHIE [id number] Memoria 10:00:00 10:00:00 07 natalya Tee 2018-06-25 2018-06-25 Outpatient Alessio, MHMG MHMG [id number] 10:00:00 10:00:00 Eva Yoo 2018-06-25 2018-06-25 Outpatient MHMG [facility] [id number] 10:00:00 10:00:00 07 2018-06-25 2018-06-25 Outpatient MHMG MHMG [id number] 10:00:00 10:00:00 07 2018-06-25 2018-06-25 Outpatient Alessio, MHMG MHMG [id number] 10:00:00 10:00:00 Eva Arroyo 2018-06-15 2018-06-[address] [facility] [address] in waiter/waitress 4 [id number] Memoria 17:30:00 17:30:00 [facility]Reg [facility] [place] [facility] 2018-06-15 2018-06-[address] [facility] [address] in waiter/waitress 4 [id number] Memoria 17:30:00 17:30:00 [facility]Reg r [place] [facility] 2018-06-15 2018-06-[address] [facility] [address] in waiter/waitress 4 [id number] Memoria 17:00:00 17:00:00 [facility]Reg r [place] [facility] 2018-06-15 2018-06-[address] [facility] [address] in waiter/waitress 4 [id number] Memoria 17:00:00 17:00:00 [facility]-Reg r [place] [facility] 2018-06-15 2018-06-15 Outpatient Alessio, MHMG MHMG [id number] 11:30:00 11:30:00 Eva Arroyo 2018-06-15 2018-06-15 Outpatient Alessio, MHMG MHMG [id number] 11:30:00 11:30:00 Eva Arroyo 2018-06-15 2018-06-15 Outpatient MHIE MHIE [id number] Memoria 11:00:00 11:00:00 05 natalya Tee 2018-06-15 2018-06-15 Outpatient MHMG MHMG [id number] 11:00:00 11:00:00 2018-06-15 2018-06-15 Outpatient MHMG MHMG [id number] 11:00:00 11:00:00 2018-06-03 2018-06-03 [facility] [id number] Memoria 13:46:00 17:48:00 r Randal 21 l [facility] 2018-06-03 2018-06-03 Emergency [facility] [id number] Memoria 13:46:00 17:48:00 r Randal 21 l [facility] 2018-06-03 2018-06-03 Outpatient Ron, Rik [facility] [id number] 07:46:00 11:48:00 Laxamana 21 2018-06-01 2018-06-[address] [facility] [address] in waiter/waitress 4 [id number] Memoria 22:00:00 22:00:00 Pre-Reg r [place] 03 l [facility] reynaldo 2018-06-01 2018-06-[address] [facility] [address] in waiter/waitress 4 [id number] Memoria 22:00:00 22:00:00 Pre-Reg r [place] 03 [facility] reynaldo 2018-06-01 2018-06-[address] [facility] [address] in waiter/waitress 4 [id number] Memoria 21:45:00 21:45:00 Pre-Reg r [place] 04 [facility] reynaldo 2018-06-01 2018-06-[address] [facility] [address] in waiter/waitress 4 [id number] Memoria 21:45:00 21:45:00 Pre-Reg r [place] 04 l [facility] reynaldo 2018-06-01 2018-06-01 Outpatient MHIE MHIE [id number] Memoria 16:00:00 16:00:00 03 natalya Tee 2018-06-01 2018-06-01 Outpatient MHMG MHMG [id number] 16:00:00 16:00:00 03 2018-06-01 2018-06-01 Outpatient MHIE MHIE [id number] Memoria 15:45:00 15:45:00 04 natalya Tee 2018-06-01 2018-06-01 Outpatient Alessio, MHMG MHMG [id number] 15:45:00 15:45:00 Eva Pierre 2018-05-25 2018-05-[address] [facility] [address] in waiter/waitress 4 [id number] Memoria 21:45:00 21:45:00 Pre-Reg r [place] 01 [facility] reynaldo 2018-05-25 2018-05-[address] [facility] [address] in waiter/waitress 4 [id number] Memoria 21:45:00 21:45:00 Pre-Reg r [place] 01 l [facility] reynaldo 2018-05-25 2018-05-[address] [facility] [address] in waiter/waitress 4 [id number] Memoria 21:00:00 21:00:00 Pre-Reg r [place] 02 l [facility] reynaldo 2018-05-25 2018-05-[address] [facility] [address] in waiter/waitress 4 [id number] Memoria 21:00:00 21:00:00 Pre-Reg r [place] 02 l [facility] reynaldo 2018-05-25 2018-05-25 Outpatient MHIE IE [id number] Memoria 15:45:00 15:45:00 01 natalya Tee 2018-05-25 2018-05-25 Outpatient Mccallum, MG [facility] [id number] 15:45:00 15:45:00 Eva Arroyo 2018-05-25 2018-05-25 Outpatient MG MG [id number] 15:00:00 15:00:00 2018-05-20 2018-05-[address] [facility] [address] in waiter/waitress 4 [id number] Memoria 19:00:00 05:59:59 r [place] 00 l [facility] 2018-05-20 2018-05-[address] [facility] [address] in waiter/waitress 4 [id number] Memoria 19:00:00 05:59:59 r [place] 00 l [facility] 2018-05-20 2018-05-20 Outpatient Bart [facility] [id number] 13:00:00 23:59:59 Brooke Moore 2018-05-20 2018-05-20 Outpatient MHIE IE [id number] Memoria 13:00:00 13:00:00 00 natalya Tee 2018-04-02 2018-04-02 Emergency [facility] [id number] Memoria 09:21:00 15:46:00 rigo Tee 19 l [facility] 2018-04-02 2018-04-02 Emergency [facility] [id number] Memoria 09:21:00 15:46:00 r Randal 19 l [facility] 2018-04-02 2018-04-02 Outpatient Bonilla [facility] [id number] 03:21:00 09:46:00 Liping 19 2018-03-02 2018-03-02 Emergency [facility] [id number] Memoria 08:32:00 10:44:00 r Randal 18 l [facility] 2018-03-02 2018-03-02 Emergency [facility] [id number] Memoria 08:32:00 10:44:00 r [place] 18 l [facility] 2018-03-02 2018-03-02 Outpatient Kyree Moreno [facility] [id number] 03:32:00 05:44:00 Elijah 18 2018-02-15 2018-02-15 ROWAN Matthews UTP [id number] [place] 09:15:00 09:15:00 t; CASSI [place] Phy sici GEORGE, M.D. ans M.D. 2018-02-03 2018-02-04 Inpatient [facility] [id number] Memoria 19:58:00 02:27:00 r Randal 62 l [facility] 2018-02-03 2018-02-04 Inpatient [facility] [id number] Memoria 19:58:00 02:27:00 r Randal 62 l [facility] 2018-02-03 2018-02-03 Outpatient Braden [facility] [id number] 14:58:00 21:27:00 [place] 2017-12-21 2017-12-21 Emergency [facility] [id number] Memoria 17:56:00 22:12:00 r Randal 17 l [facility] 2017-12-21 2017-12-21 Emergency [facility] [id number] Memoria 17:56:00 22:12:00 r Randal 17 l [facility] 2017-12-21 2017-12-21 Outpatient Sadler [facility] [id number] 12:56:00 17:12:00 Poncho Barrios 2017-11-16 2017-11-16 ROWAN Matthews UTP [id number] [place] 10:15:00 10:15:00 t; [place] Phy sici GEORGE, M.D. ans M.D. 2017-11-12 2017-11-12 Emergency [facility] [id number] Memoria 00:01:00 06:21:00 r Randal 16 l [facility] 2017-11-12 2017-11-12 Emergency [facility] [id number] Memoria 00:01:00 06:21:00 r Randal 16 l [facility] 2017-11-11 2017-11-12 Outpatient Gary, [facility] [id number] 19:01:00 01:21:00 Maverick 16 2017-11-02 2017-11-02 AppointROWAN Billy [facility] [id number] [place] 10:30:00 10:30:00 t; [place] Phy sici GEORGE, M.D. ans M.D. 2017-10-29 2017-10-29 Emergency [facility] [id number] Memoria 17:52:00 19:48:00 rigo Feliz l [facility] 2017-10-29 2017-10-29 Emergency [facility] [id number] Memoria 17:52:00 19:48:00 r Randal Feliz l [facility] 2017-10-29 2017-10-29 Outpatient Alan, [facility] [id number] 12:52:00 14:48:00 Marcell Sheppard 15 2017-09-21 2017-09-21 [facility] [id number] Memoria 00:06:00 02:08:00 rigo Martínez l [facility] 2017-09-21 2017-09-21 [facility] [id number] Memoria 00:06:00 02:08:00 r Randal Martínez l [facility] 2017-09-20 2017-09-20 Outpatient Andrew, [facility] [id number] 19:06:00 21:08:00 Timothy Gareth 14 2016-10-05 2016-10-05 Emergency [facility] [id number] [place] 00:27:03 00:27:03 [facility] 2016-10-04 2016-10-04 Inpatient [facility] [id number] Mcintyre 23:14:22 23:14:22 [facility] 2016-06-05 2016-06-05 Emergency [facility] [id number] Memoria 15:42:00 19:26:00 r Randal Coburn l [facility] 2016-06-05 2016-06-05 Emergency [facility] [id number] Memoria 15:42:00 19:26:00 r Randal 13 l [facility] 2016-06-05 2016-06-05 Outpatient Elan [facility] [id number] 09:42:00 13:26:00 Benito Elizabeth 13 2015-12-03 2015-12-03 OBS [facility] [id number] Memoria 11:39:00 16:45:00 Surgery r Randal 12 l [facility] 2015-12-03 2015-12-03 OBS Day [facility] [id number] Memoria 11:39:00 16:45:00 Surgery r Randal 12 l [facility] 2015-12-03 2015-12-03 Outpatient Najma [facility] [id number] 06:39:00 11:45:00 Dax Camara 12 2015-11-22 2015-11-23 Out[facility] [id number] Memoria 15:01:00 04:59:00 r Randal 11 l [facility] 2015-11-22 2015-11-23 Outpatient [facility] [id number] Memoria 15:01:00 04:59:00 r Randal 11 l [facility] 2015-11-22 2015-11-22 Outpatient Edward [facility] [id number] 10:01:00 23:59:00 Solomon Aguero 11 2015-11-15 2015-11-15 EC [facility] [id number] Memoria 13:55:00 17:44:00 Emergency r Randal 10 l [facility] 2015-11-15 2015-11-15 EC [facility] [id number] Memoria 13:55:00 17:44:00 Emergency r Lag[place] 10 l [facility] 2015-11-15 2015-11-15 Outpatient Gary [facility] [id number] 08:55:00 12:44:00 Maverick 10 2015-05-04 2015-05-07 Inpatient [facility] [id number] Memoria 20:19:00 19:29:00 r Randal 09 l [facility] 2015-05-04 2015-05-07 Inpatient [facility] [id number] Memoria 20:19:00 19:29:00 r Randal 09 l [facility] 2015-05-04 2015-05-07 Outpatient Edward Graham [facility] [id number] 14:19:00 13:29:00 Walter 2015-03-28 2015-03-28 EC [facility] [id number] Memoria 17:57:00 21:58:00 Emergency r Randal 08 l [facility] 2015-03-28 2015-03-28 EC [facility] [id number] Memoria 17:57:00 21:58:00 Emergency r Lag[place] 08 l [facility] 2015-03-28 2015-03-28 Outpatient BassKaterinan [facility] [id number] 11:57:00 15:58:00 Gianluca 2014-12-19 2014-12-21 Inpatient nullFlavo [facility] [id number] Memoria 20:01:00 18:26:00 r [place] 07 l [facility] 2014-12-19 2014-12-21 Inpatient nullFlavo [facility] [id number] Memoria 20:01:00 18:26:00 r [place] 07 [facility] 2014-12-19 2014-12-21 Outpatient Blaine [facility] [id number] 15:01:00 13:26:00 Bobby 07 2014-11-17 2014-11-17 EC nullFlavo [facility] [id number] Memoria 04:15:00 05:24:00 Emergency r Lag[place] 06 l [facility] 2014-11-17 2014-11-17 EC nullFlavo [facility] [id number] Memoria 04:15:00 05:24:00 Emergency r Randal 06 l [facility] 2014-11-16 2014-11-17 Outpatient Membreno, 2.16.840. [id number]. 4 [id number] 23:15:00 00:24:00 Vivek [id number] Pilo [id number] 60 6270-05-26 2014-10-11 EC [facility] [id number] Memoria 19:09:00 02:37:00 Emergency r Randal 05 l [facility] 2014-10-10 2014-10-11 [facility] [id number] Memoria 19:09:00 02:37:00 Emergency r Randal Aragon l [facility] 2014-10-10 2014-10-10 Outpatient Teshaberg, 2.16.840. 2.16.840.1 . [id number] 14:09:00 21:37:00 Marcell Silver [id number] 05 1125-04-20 2014-09-07 Inpatient [facility] [id number] Memoria 15:36:00 23:28:00 r Randal Pierre [facility] 2014-09-04 2014-09-07 Inpatient [facility] [id number] Memoria 15:36:00 23:28:00 r Randal Ignacio [facility] 2014-09-04 2014-09-07 Outpatient Mari, 2.16.840. [id number]. [id number] 10:36:00 18:28:00 Maverick Sigala [id number] 26 0915-09-09 2014-01-25 Inpatient [facility] [id number] Memoria 05:29:00 23:28:00 r Randal Nancy [facility] 2014-01-24 2014-01-25 Inpatient [facility] [id number] Memoria 05:29:00 23:28:00 r Randal 03 [facility] 2014-01-24 2014-01-25 Outpatient Carlene 2.16.840. 2.16.840. 1. [id number] 00:29:00 18:28:00 , Rashard [id number] 5.0.101 01 Results Test Description Test Time Test Comments Results Result Comments Source POCT HEMOGLOBIN A1C TEST 2022-05-30 21:57:00 Test Item Value Reference Range Interpretation Comme nts POCT HBA1C (test code = 4548-4) 7.5 % 4-6 A Lab Interpretation (test code = 12035-0) Abnormal [facility] HEMOGLOBIN A1C [id number] 21:57:00 Test Item Value Reference Range Interpretation Comments POCT HBA1C (test code = 4548-4) 7.5 % 4-6 A Lab Interpretation (test code = Abnormal 68307-9) [id number] 08:37:32 Test Item Value Reference Range Interpretation Comments Case Report (test code Surgical Pathology = 104) Report Case: [id number] Authorizing Provider: Michel Hilliard Collected: 06/07/2021 03:04 PM MD Isabela Ordering Location: [facility] Received: 06/10/2021 06:31 AM SERVICES Pathologist: Napoleon Bach MD Specimen: Hardware, GASTRIC LEADS FOR ID ONLY DIAGNOSIS (test code = [id number] 3220) uZzEwMzNcZnRuYmpcdWMxIH tccnRmMVxlcGljOTYwMVxhb aSbQJXxnOMcF2UmndwzXIsd WJ9bOB0cjXkgwCLjdIMdUWG tAkZsi9cim656bYLjg9zxAX YTyfzmkGv2rSpmG15tz6E7K gguD74eiRMgMAT5ZGOhZWXd cMZfUQQfLTX6UVIqhKVsH3x wCNOcFN2rrxeqDCfdWYurVE NodTY9PZLrwIJkH1RdVSZuQ NrpQJYnxol1EbRsQd8arBPn eTcyMFxwYXJkXHBsYWluXGZ iFqQzOcOWCs7XXMJUGVDELL TDRQDIO1UHWVaxWyCNR6FNI DpcbGluZSAgICAgICAtTEVB KNJmKSDXHuZQOlwRLGEpR2A IV4FwM27MXUnzjHOqbDuetq VvEBuss1WnJLomKUTbTB1rz KooMSYaOE9rHLAxF7vakK5l tpu0XoMpTHJcLrH9SGApfmD 3Skj6ECMhVYhpo4zlr4ToHK GbMVc9iFtfLqCtRNUcz9gol yBcZmNoYXJzZXQwIEFyaWFs N188q3ngf6ofgjDxuIU6GEL vUEG9MUhituHcsaH7RYfjyP TpQpK4OUsskcQrCPlnntGda jZtZar5YBYzY058CKP7eSrb r5kcGHF6JTVfJUFzWvVbHk9 ywCNaB653UCHtOWNNLSBwuQ f4UGAxnbGdotNddLRVw180J 917m1aiRGHkgeGkxJnNumnz w2jtS155MOHulUWlunIbYcX rXVFgmXTrjVL6CMXiLS4rdj abCOknFFufSSQxisP8YAJks OImO9YyPVUmGQ7aqgtyIQB8 UNenQLQfXKP4HkNoPUJby5Z lxfu0SgCzuo4rax42IGV7r4 LwwIbrRNT9EFK0JnTrPm0fo RVbELImEN8rZaGjaMLdCDNd st17iQuwOSyzXHW0HOLpmwI mv9Vgn1imNnVzbnCmC3wzM1 JyZHJoZWFkXHBnYnJkcmZvb 7Gqq2PugIIsbCe8e2yxIHRo MGVxlYswz5xlSRJ5PUQqvQJ zL9wcpH9gXECnNF2ksbzmq6 gjXNoiDItvKCBbeKO8opA2I DZzvQDnB5UawE2sDTTmSQef TFItzmr1FfMkXt0mkLXkuBa yMFxzYmtwYWdlXHBnbmNvbn RccGduZGVjXHBsYWluXHBsY WluXGYwXGZzMjRccWxcbGFu ZzEwMzNcaGljaFxmMVxkYmN oGPLkJUfwI1ubSoDoJuKyVl g5KZSgtTAkGCKdIgq8OEOlo SXiTCVYsQohaT4zQNNvsQes jJ0gzDV8VISrpcWesTWAmE4 sVDAGzM9lUzN1SQWkRyj9FT M4IsSzlKHkrU3= CPT Code(s) (test code m6tiuQKbTJXqnHI5AeOgTIB = 3357) wf4lhn2PkbLLteBUxYFboaH RbbuTpcj41mTB0fH46KD9fD PQkEjW4UTIipbE0Tbz7ADXk VOZsaPDiF355c6ous5wfhrX jsTZ6rSsqREKompfyQbD5TA vnCNBxsucyAIi6POgvWNClx MT6QKVvaEGbF5BfMKMePY9g psr8NGT0LMxlLEDjPtQ5VOH asPNgMLCojYiqPOyrx527JC E9FgWdHDVccfOydOzysB6bL iYxCCJ0NHUuDOxaGFS1 CLINICAL HISTORY (test j2khfKDtUEGxlMV7SiMoGQU code = 3356) kc4xob6LobIVntATfSEmqdF BkntLlfb30rFS1iP29ZX9xU SFzOfG4VKJjbqV4Xig7CAZa OCWwlIZuB997i3tol8yexkB apWA7tExkBCAtprboRkW7CN ioLMUdrnpmWWu8LUxeAMLrf TZ4KEVydFLkX9KgVKAdCK9j yae0AUT5QEjsJLTrAyH1CUS dtDYvNLKduAihDQley152IQ E2VpRqVPBjjsTkjTyyhW7sB qMmNNPYQQM2pl7vIVGqy0pz LCBwYWNlbWFrZXIgZmFpbHV yZVxwYXJ9 SPECIMEN SOURCE (test f6firAJtVOZlzMF7YaTzKJB code = 3377) nj7zhx2PegDTifDSpCJjzxA XcejCobk63tBM2nR23US2qJ YMgOvT4IVZwduI4Uve9EXVk OSLqoIMyR780p7xha5ioonS etRR4zLrhOILrijjkVwZ2ZM yiZZKxskflDEr7MEemIHFaa UH3IVAhdDDsK3HgEVKfZP2s ies9FCA8CFuxTLYbMvH7RUW kxKCrNVOmpBioNIbiv915LD P2VyIcYNOpifJzzCgpiN1lF jTuVPFZHLQ1medhBX7ynHVs i4GjcFKhFGGmwzoePDY5 GROSS DESCRIPTION o7qupUXbUXPaxWKcHcYdCMI (test code = 3366) fDNUbz0jnIDMeoVPpFuWmWl NcZnRuYmpcdWMxXGRlZmYwe 4zud683kOFfq0uqUUTkAwS3 aHJrHVRqrCEfK393x3uyo7o szvQinVQ2BQJuXRW0WOzpev EsruX6BOgobITfEaL9BKikl qOoYOzouaClikBnTsg3SKOu J790XIH7yBkqu9rqTMY7PAF uEJNuJgMoVu8rtDTdM833WB MlUPGOHHVbrAb6SMIuwkSee fFvrGJRq078B788q1guSCRl jiUtfRhCcpuwb9idS400SXG hcGVydzEyMjQwXHBhcGVyaD I7LBFdWU3gnotaIeTjBA8ii jyoRgJlUY5idwb8VsKbQF6z cmdiNzIwXGhlYWRlcnkwXGZ ob9TixyfaQX4aU9Jli0L5wS 9maXRcZGVmdGFiNzIwXGZvc c3huLNgPSixd0AkNQK6gqC6 hSUuyQGgFASvME08Dvdju4Z nVircEOX3QUJtmoUum7Tyg9 hjFtOaxbYoB9peL4UiOLQaU THvMKHmTpYeurTja1Yru1Db vUZtgTy8l3mnWZStIRBeuUs ly9yaYWB2FKVpR4X3hARjo2 pmMGccMOKleMF7wofhNZsqW AXqkzM6tgdjKQomCFNqxGC1 vsyxBUodIGQbOqF9tcbiHMs eNWWgIPO6DVqqn630VVR8RO xzYmtwYWdlXHBnbmNvbnRcc GduZGVjXHBsYWluXHBsYWlu XGYwXGZzMjRccWxccGxhaW5 tEcLrNlSdBGcdAI7kZZCcL1 gnjGAnZTBnWKFbV4zuTqUjk I7cjFwvHRyohtLvNBNkWWNa R9KkqgDxPGKbSLIgPLxsCeT rROEwo4h9dOB3uATueZJ3yN HucJwfZeNeMD7juEIjWY1fI XqaHUpoeqIyl8IhSW49cAGd ypSlktJrFvoxitX8PROiIvM hcmUgMiBsZWFkcyBtZWFzdX QtpdvoUwTgZ46jDJ2wGIHrW jRmW91jmH0djEMyP1WpIAPp YWNoIDAuMSBjbSBpbiBkaWF rLNEvqm7hGZSjpT2mU4FlJN zsCFObdCGkrU9iF8CbNdGpG CfovYtzAj6ECOHhZEJ4RHUJ OAKwFZ4xIIRnGBUljF1giPE pRDbwPWAhuCMesG5jI8QiWg ArHTwylWkoVnkHTFU8QLSfU g6aYXBExAVqSMKhK1NchlDt IJwhKPVsZLByMH4dADZhmoR daD7saeAnciBmKBT3zHq6HR EfiGDdhWnrXEcqx0VgI8wwh HMgZWFjaCBtZWFzdXJpbmcg PC28FEuzWZ9tRSzsRU2xMXG aLYZgRRXnAZScjfB3qVYqUR ZrLK2nsAYaCI47KJKnxFMcG AW3PX6ndaZkjSLyJNHvUT9m QJT3mfheQdMsSwHnG75zqA6 cXTgkeEV4EJEpCT8xKZYtOy BjbSBpbiBoZWlnaHQuICBBI Eqyc6ZdSLLng8RxQ7LzyRix dUBgkWOuSB2xVPBNfgZmVRO 1yF9qeoQwzeSbj1HgtTp9hD EpUKzfb5SkMG8nnOdlUKEbd qsbDHAiN7ndfWRkGOTUvfJ6 biwgTUhTLCBQQSAoQVNDUCl jbVxwYXJ9 MICROSCOPIC r6kdqWHhXPUypLK1RwToRRI DESCRIPTION (test code uy4ltm5HijQKluXRxTKwpnR = 3371) NkcdWdro19gEM9cX46FX0pH UCkOeN8KCDrwzD1Iwr3RAMo VTUbpORkJ408l0qkn8iehwQ sfVM0jAamWHWcxmbaUnP7XM opZMJufsvxDFc9ZMdpAORxo XO0TUYayRUbX8EcLHHeMJ3j iqv4GXU9YRpgDHFnDpN0MUI fnODcTDLhxXrwJToom896EW Z0EtEfPGAjlxXhgOpjjG5eU dBqVURUd1GukHWgDr4fsRMu XHBhcn0= [facility] [id number] 08:37:32Surgical Pathology Report Case: [id number] Authorizing Provider: Michel Hilliard Collected: 06/07/2021 03:04 PM MD Isabela Ordering Location: [facility] PERIOPERATIVE Received: 06/10/2021 06:31 AM SERVICES Pathologist: Napoleon Bach MD Specimen: Hardware, GASTRIC LEADS FOR ID ONLY NEUROSURGICAL HARDWARE, REMOVAL: -LEADS IDENTIFIED (GROSS ONLY) Signing Pathologist Direct Phone Line: [phone] ectronically signed by Napoleon Bach MD on 06/10/2021 at 8:37 [id number], pacemaker failureGastric neurostimulatorA. Received fresh labeled with the patient's name, medical record number and "hardware" are 2 leads measuring 31 cm and 20.5 cm in length, each 0.1 cm in diameter. A longer lead is inscribed with "NHT [id number]," and the shorter lead is inscribed with"[id number]." Also received in the same container are 4 white plastic-like clips each measuring 0.9 x 0.2 x 0.1 cm and 2 circulartranslucent, rubbery object each measuring 1.3 cm in diameter and 0.2 cm in height. A gross photograp h is taken. No sections are submitted-gross only.DEXTER Nix, PA [facility])cmNot performedPOC-Glucose [id number] 23:54:11 Test Item Value Reference Range Interpretation Comments POC-Glucose Meter (test 306 mg/dL 70-110 H : TE STED AT [facility] code = 1538) [address] [facility], 770 30: Dressage Instructor/Techni vanessa ID = [id number] for Nay Cross na Lab Interpretation (test Abnormal code = 93960-0) [facility] [id number] 23:54:11 Test Item Value Reference Range Interpretation Comments POC-GLUCOSE METER 306 mg/dL 70-110 H : TESTED A T [facility] 6720 (BEAKER) (test code = [facility], 153) [address]: Dressage Instructor/Techni vanessa ID = [id number] for Sp Leslie parkerliana POCT-GLUCOSE [id number] 23:07:41 Test Item Value Reference Range Interpretation Comments POC-GLUCOSE METER 378 mg/dL 70-110 H : [facility] (test code = [facility], 1538) [address]: Dressage Instructor/Techni vanessa ID = [id number] for Sp elena, Yoli POCT-GLUCOSE [id number] 22:07:24 Test Item Value Reference Range Interpretation Comments POC-GLUCOSE METER 332 mg/dL 70-110 H : [facility]) (test code = [facility], 153) [address]: Dressage Instructor/Techni vanessa ID = [id number] for Yoli Mckeon POCT-GLUCOSE [id number] 20:03:45 Test Item Value Reference Range Interpretation Comments POC-GLUCOSE METER 438 mg/dL 70-110 HH : Notified RN/MD: ([facility]) (test code = TESTED AT [place] [address] 1538) [facility], [address]: Dressage Instructor/Techni vanessa ID = [id number] for Eduardo Shabazz POCT-GLUCOSE [id number] 19:40:54 Test Item Value Reference Range Interpretation Comments POC-GLUCOSE METER 403 mg/dL 70-110 HH : Notified RN/MD: ([facility]) (test code = TESTED AT [place] [address] 1538) [facility], [address]: Dressage Instructor/Techni vanessa ID = [id number] for Da noe, Emili POCT-GLUCOSE [id number] 18:35:36 Test Item Value Reference Range Interpretation Comments POC-GLUCOSE METER 384 mg/dL 70-110 H : TESTED A T [facility] 6720 ([facility]) (test code = [facility], 153) [address]: Dressage Instructor/Techni vanessa ID = [id number] for CURLY KENNA STEINBERG POCT-GLUCOSE [id number] 16:51:42 Test Item Value Reference Range Interpretation Comments POC-GLUCOSE METER 196 mg/dL 70-110 H : Notified RN/MD: TESTED ([facility]) (test code AT [address] = 1538) [facility], [address]: Dressage Instructor/Techni vanessa ID = [id number] for Adim athra, Jessyamma POCT-GLUCOSE [id number] 15:42:33 Test Item Value Reference Range Interpretation Comments POC-GLUCOSE METER 203 mg/dL 70-110 H : [facility]) (test code = [facility], 153) [address]: Dressage Instructor/Techni vanessa ID = [id number] for EPHRAIM TRAN POCT-GLUCOSE [id number] 14:15:49 Test Item Value Reference Range Interpretation Comments POC-GLUCOSE METER 243 mg/dL 70-110 H : TESTED A T [facility] 6720 (BEAKER) (test code = ABEBE Mee[facility], 1538) [address]: Dressage Instructor/Techni vanessa ID = [id number] for CL MARIAM ARCE POCT-GLUCOSE [id number] 11:20:58 Test Item Value Reference Range Interpretation Comments POC-GLUCOSE METER 197 mg/dL 70-110 H : TESTED A T [facility] 6720 (BEAKER) (test code = [facility], 1538) 538[address]: Dressage Instructor/Techni vanessa ID = [id number] for RA Y, ALTON Type and screen, [id number] 10:02:00 Test Item Value Reference Range Interpretation Comments ABO/RH AUTOMATED (AKER) (test B POSITIVE code = 2260) Ab Scrn (test code = 890-4) NEGATIVE [facility] [id number] 09:12:56 Test Item Value Reference Range Interpretation Comments POC-GLUCOSE METER 227 mg/dL 70-110 H : [facility] (test code = [facility] Mee[facility], 1538) 82034: Dressage Instructor/Techni vanessa ID = [id number] for GA RCIA TOVA POCT , [id number] 09:06:00 Test Item Value Reference Range Interpretation Comments Test Urine, POC (test Negative code = 2845974) Control line present?, POC (test Yes code = 6307093) Background clear?, POC (test code Yes = 0715747) UPT Cassette Lot #, POC (test code 1508692 = [id number]) UPT Cassette Expiration Date, POC 05-17-2022 (test code = 1268709) [facility]2021-06-06 22:37:21 Test Item Value Reference Range Interpretation Comments SARS-COV2/RT-PCR Negative Not Detected, (test code = Negative, See 19657-7) external report for linked test SARS-COV-2 [facility] PERFORMING LAB (test code = 94244-9) [place] (test code = Negative result for [...] of the Act. Fact Sheet for Healthcare Providers:https://www.[employer]/sites/default/f tata/product/documents/F act_Sheet_HC_Providers_L hor_YSDL-GbS-6.pdf Fact Sheet for Healthcare Patients:https://www.In[employer]/sites/default/fi les/product/documents/Fa ct_Sheet_Patients_Lyra_S ARS-CoV-2.pdf Performing Laboratory:[facility] [place] [address] [facility] ([facility] REF [facility]S)2021-06-06 22:37:21 Test Item Value Reference Range Interpretation Comments SARS-COV2/RT-PCR (test Negative Not Detected, Negative, code = 3074224) See external report for linked test SARS-COV-2 PERFORMING LAB [facility] (test code = 5770775) Negative result for this test determines that [...] of the Act.Fact Sheet for Healthcare Prov iders:https://www.[employer].OneBuild/sites/default/files/product/documents/Fact_Sheet_HC _Rgzeeacvh_Gcsg_EZEM-JuR-1.pdfFact Sheet for Healthcare Patients:https://www.[employer]/sites/default/files/product/docume nts/Dzdl_Xrcpz_Opltgrho_Jxpu_NFUK-GxP-1.pdfPerforming Laboratory:[facility], [place] [address]JOMD-QWGZFPL METER 2021-05-30 11:42:07 Test Item Value Reference Range Interpretation Comments POC-GLUCOSE METER 269 mg/dL 70-110 H : Notified RN/MD: (CASS) (test code = TESTED AT [facility] 6720 1538) [facility], [address]: Dressage Instructor/Techni vanessa ID = [id number] for ALINA TRUJILLO POCT-GLUCOSE [id number] 09:01:21 Test Item Value Reference Range Interpretation Comments POC-GLUCOSE METER 94 mg/dL 70-110 : TESTED A T [facility] 6720 [facility] (test code = [facility], 1538) 64240: Dressage Instructor/Techni vanessa ID = [id number] for PROD SOWMYA JURADO POCT-GLUCOSE [id number] 07:51:25 Test Item Value Reference Range Interpretation Comments POC-GLUCOSE METER 75 mg/dL 70-110 : TESTED A T [facility] 6720 [facility] (test code [facility], = 1538) [address]84: Dressage Instructor/Techni vanessa ID = [id number] for MEME KHAN Basic Metabolic [id number] 07:25:52 Test Item Value Reference Range Interpretation Comments Sodium (test code = 138 meq/L 090-144 4468-2) Potassium (test 4.1 meq/L 3.5-5.1 code = 2823-3) Chloride (test code 105 meq/L 98-107 = 2075-0) CO2 (test code = 28 meq/L 22-29 2027-9) BUN (test code = 7 mg/dL 7-21 3094-0) Creatinine (test 0.74 mg/dL 0.57-1.25 code = 2160-0) Glucose (test code 72 mg/dL 70-105 = 2345-7) Calcium (test code 9.4 mg/dL 8.4-10.2 = 25585-5) EGFR (test code = 92 mL/min/1.73 [place] [address]-1) NOT ACCURATE CREATININE CLEARANCE IN PREDICTING GLOMERULAR FILTRATION RATE . ESTIMATED GFR I S NOT APPLICABLE FOR DIALYSIS PATIEN TSConor [place] (test code = Dressage Instructor ID - [place]) IZA Reardon [facility] [id number] 07:25:52 Test Item Value Reference Range Interpretation [...] S NOT APPLICABLE FOR DIALYSIS PATIEN TS. Dressage Instructor ID - IZA GCBC with platelet count + automated [id number] 07:16:43 Test Item Value Reference Range Interpretation Comments WBC (test code = 6690-2) 7.0 See_Comment [A utomated message] The system Couple[employer] generated this result transmitted ref erence range: 3.5 - 10 .5 K/L. The refe rence range was not u sed to interpret this result as normal/abnor mal. RBC (test code = 789-8) 4.00 See_Comment [Au tomated message] The system [employer] generated this result transmitted ref erence range: 3.93 - 5 .22 M/L. The refe rence range was not u sed to interpret this result as normal/abnor mal. MCHC (test code = 786-4) 32.5 See_Comment [A utomated message] The system [employer]ple[employer] generated this result transmitted ref erence range: [...] See_Comment [Aut omated message] 777-3) The system [employer] generated this result transmitted ref erence range: 150 - 45 0 K/CU MM. The referen ce range was not u sed to interpret this result as normal/abnor mal. MPV (test code = 10.2 fL 9.4-12.3 40843-5) nRBC (test code = 413) 0 See_Comment [Aut omated message] The system [employer]ple[employer] generated this result transmitted ref erence range: [...] See_Comment [Aut omated message] 670) The system [employer]ple[employer] generated this result transmitted ref erence range: 1.56 - 6 .13 K/L. The refe rence range was not u sed to interpret this result as normal/abnor mal. # Lymphs (test code = 3.02 See_Comment [Auto mated message] 414) The system [employer] generated this result transmitted ref erence range: 1.18 - 3 .74 K/L. The refe rence range was not u sed to interpret this result as normal/abnor mal. # Monos (test code = 0.48 See_Comment H [Autom ated message] 415) The system [employer]ple[employer] generated this result transmitted ref erence range: 0.24 - 0 .36 K/L. The refe rence range was not u sed to interpret this result as normal/abnor mal. # Eos (test code = 416) 0.75 See_Comment H [Au tomated message] The system [employer] generated this result transmitted ref erence range: 0.04 - 0 .36 K/L. The refe rence range was not u sed to interpret this result as normal/abnor mal. # Baso (test code = 417) 0.08 See_Comment [A utomated message] The system [employer] generated this result transmitted ref erence range: 0.01 - 0 .08 K/L. The refe rence range was not u sed to interpret this result as normal/abnor mal. Immature 0 % 0-1 Granulocytes-Relative (test code = 2801) Lab Interpretation (test Abnormal code = 43666-6) [facility] W/PLT COUNT & AUTO [id number] 07:16:43 Test Item Value Reference Range Interpretation [...] PERCENT (BEAKER) (test code = 2801) POCT-GLUCOSE [id number] 21:01:16 Test Item Value Reference Range Interpretation Comments POC-GLUCOSE METER 149 mg/dL 70-110 H : TESTED A T [facility] 6720 (BEAKER) (test code = [facility], 1538) 86[address]: Dressage Instructor/Techni vanessa ID = [id number] for Se Rosas POCT-GLUCOSE [id number] 18:06:01 Test Item Value Reference Range Interpretation Comments POC-GLUCOSE METER 177 mg/dL 70-110 H : TESTED A T [facility] 6720 (BEAKER) (test code [facility], = 1538) 64740: Dressage Instructor/Techni vanessa ID = [id number] for Abdoul (contract), Leticia dgette POCT-GLUCOSE [id number] 15:27:09 Test Item Value Reference Range Interpretation Comments POC-GLUCOSE METER 181 mg/dL 70-110 H : TESTED A T [facility] 6720 (BEAKER) (test code [facility], = 1538) 80490: Dressage Instructor/Techni vanessa ID = [id number] for Abdoul (contract), Leticia dgette POCT-GLUCOSE [id number] 12:50:35 Test Item Value Reference Range Interpretation Comments POC-GLUCOSE METER 141 mg/dL 70-110 H : TESTED A T [facility] 6720 (BEAKER) (test code [facility], = 1538) 64323: Dressage Instructor/Techni vanessa ID = [id number] for Abdoul (contract), Leticia dgette POCT-GLUCOSE [id number] 10:20:50 Test Item Value Reference Range Interpretation Comments POC-GLUCOSE METER 110 mg/dL 70-110 : TESTED A T [facility] 6720 (BEAKER) (test code = [facility], 1538) 25957: Dressage Instructor/Techni vanessa ID = [id number] for CIERA AGUILLON POCT-GLUCOSE [id number] 08:26:47 Test Item Value Reference Range Interpretation Comments POC-GLUCOSE METER 84 mg/dL 70-110 : TESTED A T [facility] 6720 (BEAKER) (test code = [facility], 1538) 788[address]: Dressage Instructor/Techni vanessa ID = [id number] for Abdoul (contract)Leticia CBC W/PLT COUNT & AUTO [id number] 07:49:52 Test Item Value Reference Range Interpretation [...] (BEAKER) (test code = 2801) BASIC METABOLIC [id number] 06:03:42 Test Item Value Reference Range Interpretation [...] S NOT APPLICABLE FOR DIALYSIS PATIEN TS. Dressage Instructor ID - PIAYA LPOCT-GLUCOSE [id number] 21:41:52 Test Item Value Reference Range Interpretation Comments POC-GLUCOSE METER 235 mg/dL 70-110 H : TESTED A T [facility] 6720 (BEAKER) (test code = [facility], [facility]8) [address]: Dressage Instructor/Techni vanessa ID = [id number] for ZBIGNIEW LEVINE RA POCT-GLUCOSE [id number] 20:52:01 Test Item Value Reference Range Interpretation Comments POC-GLUCOSE METER 142 mg/dL 70-110 H : TESTED A T [facility] 6720 ([facility]) (test code = [facility], [facility]8) 75235: Dressage Instructor/Techni vanessa ID = [id number] for ZULEIKA DENISE POCT-GLUCOSE [id number] 18:44:03 Test Item Value Reference Range Interpretation Comments POC-GLUCOSE METER 81 mg/dL 70-110 : TESTED A T [facility] 6720 ([facility]) (test code = [facility], [facility]) 25677: Dressage Instructor/Techni vanessa ID = [id number] for Ramjose naty, Sunni POCT-GLUCOSE [id number] 12:02:23 Test Item Value Reference Range Interpretation Comments POC-GLUCOSE METER 133 mg/dL 70-110 H : TESTED A T [facility] 6720 ([facility]) (test code = [facility], [facility]) [address]: Dressage Instructor/Techni vanessa ID = [id number] for Ra Sunni waldrop POCT-GLUCOSE [id number] 11:25:55 Test Item Value Reference Range Interpretation Comments POC-GLUCOSE METER 181 mg/dL 70-110 H : Notified RN/MD: ([facility]) (test code = TESTED AT [place] [address]) [facility], [address]: Dressage Instructor/Techni vanessa ID = [id number] for Zuly dunlap (contract)Raffy POCT-GLUCOSE [id number] 11:04:29 Test Item Value Reference Range Interpretation Comments POC-GLUCOSE METER 29 mg/dL 70-110 LL : Notified RN/MD: TESTED ([facility]) (test code = AT [place] [address]) [facility], 770 30: Dressage Instructor/Techni vanessa ID = [id number] for Rami naty, Sunni RAD, ABDOMEN, 2 [id number] 09:13:00AP and lateralReason for exam:- >pacemaker [facility] 1990 Sex: FFINAL REPORT RAD, ABDOMEN, [...] no free air is identified. Signed: Nancy Ramos Verified Date/Time: 05/28/2021 09:13:49 Reading Location: [facility] Radiology Reading Room POCT-GLUCOSE METER 2021-05-28 06:21:54 Test Item Value Reference Range Interpretation Comments POC-GLUCOSE METER 96 mg/dL 70-110 : TESTED A [facility] 6720 (apartum) (test code = [facility], 1538) [address]: Dressage Instructor/Techni vanessa ID = [id number] for Nguy en, Tram POCT-GLUCOSE [id number] 05:49:58 Test Item Value Reference Range Interpretation Comments POC-GLUCOSE METER 69 mg/dL 70-110 L : TESTED A T [facility] 6720 (apartum) (test code = [facility], 1538) 73184: Dressage Instructor/Techni vanessa ID = [id number] for Nguy en, Tram RAD, ABDOMEN/KUB, 1 VIEW [id number] 04:20:00Reason for exam:->eval of gastric stimulator placement [facility] : 1990 Sex: FFINAL REPORT CLINICAL HISTORY: [...] James MDReport Verified Date/Time: 05/28/2021 04:20:10 SARS-COV2/RT-PCR ([facility] REF [facility])2021-05-28 03:25:38 Test Item Value Reference Range Interpretation Comments SARS-COV2/RT-PCR Negative Negative The SARS-Co V-2 target (test code = nucleic acids a re not 0831715) detected in thi s specimen. Negative result [...] revoked sooner. Fact Sheet for Healthcare Providers: https://www.[employer]yi [employer]ile/Documents/Xpert%20Xpress%20SARS%20CoV-2/Fact%20Sheets/302-3802%43CCLY-EAH-6%20 HEALTHCARE%20PROVIDERS%20FACT%20SHEET.pdf Fact Sheet for Healthcare Patients: https://www.[employer]/Documents/Xpert%20Xp ress%20SARS%20CoV-2/Fact%20Sheets/302-3801%17PCRQ-XWJ-2%20PATIENT%20FACT%20SHEET .pdfhCG, quantitative, [id number] 03:05:29 Test Item Value Reference Range Interpretation Comments hCG Quant (test code <1 See_Comment [Autom ated = 69307-8) message] The system which generated this result [...] 10,000-100,000 6-8 Weeks 15,000-200,000 2-3 Months 10,000-100,000 Dressage Instructor ID - MAGI Sigala Lab Interpretation Normal (test code = 74905-2) [facility], [facility]ANTITATIVE, [id number] 03:05:29 Test Item Value Reference Range Interpretation Comments GONADOTROPIN, CHORIONIC (HCG) QUANT < mIU/mL 0-10 (BEAKER) (test code = 649) Non- Females: <10 mIU/mL Females: Gestation Age Reference Range(mIU/mL) 0.2-1 Week 5-50 1-2 Weeks 50-500 2-3 Weeks 100-5,000 3-4 Weeks 500-10,000 4-5 Weeks 1,000-50,000 5-6 Weeks 10,000-100,000 6-8 Weeks 15,000- 200,000 2-3 Months 10,000-100,000 Dressage Instructor ID Bairon MAGI LBASIC METABOLIC PANEL 2021-05-28 02:45:30 Test Item [...] S NOT APPLICABLE FOR DIALYSIS PATIEN TS. Dressage Instructor ID - KATRINA [facility] W/PLT COUNT & AUTO [id number] 02:34:45 Test Item Value Reference Range Interpretation [...] = 2801) UA RFLX MICR CULT IF [id number] 09:43:00 Test Item Value Reference Range Interpretation [...] Dysuria/FrequencySpecimen Description: CLEAN CATCH- XR ABD ACUTE [id number] 09:20:00 [facility] : 1990 Sex: F FAX:Eva Barreto [phone] [place]: St: REG FAX: Fabienne Rosales MD [phone] Name: MALLORY GOMEZ [facility] [place] : 1990 Age/S: 30/F [address] [place] [address] Unit #: [id number] Loc: [place] [address] Phys: Fabienne Rivera MD Acct: [id number] Dis Date: Status: REG ER PHONE #: [phone] Exam Date: 903 FAX #: [phone] Reason: acute abd pain EXAMS: CPT CODE: [id number] XR ABD ACUTE W/CHEST 92815 Flat and upright abdomen with single view [...] chest. 2. Nonobstructed bowel gas pattern. SL: [id number] at 0920 Reported and signed by: Timothy Alves M.D. CC: Eva Sanchez M.D.; Fabienne Rivera MD Technologist: Licha Taylor, RT(R); Annmarie Chung RT(R) Trnmnrd Date/Time/By: 10/14/2020 (09) : By: [email or web address] Orig Print D/T: S: 10/14/2020 (2004) PAGE 1 Signed ReportBASIC METABOLIC [id number] 08:51:00 Test Item Value Reference Range Interpretation [...] 9.8 mg/dL 8.0-10.5 N CA) HEPATIC FUNCTION [id number] 08:51:00 Test Item Value Reference Range Interpretation [...] 66 IUnit/L 20-125 N code = ALKP) [id number] 08:51:00 Test Item Value Reference Range Interpretation Comments LIPASE (test code = LIP) 24 U/L 13-57 N [id number] 08:51:00 Test Item Value Reference Range Interpretation Comments MAGNESIUM (test code = MAG) 1.93 mg/dL 1.80-2.40 N HCG SERUM [id number] 08:51:00 Test Item Value Reference Range Interpretation Comments HCG SERUM QUAL (test code = SERUM NEGATIVE NEGATIVE HCGQL) BASIC METABOLIC [id number] 08:45:00 Test Item Value Reference Range Interpretation [...] code = CA) mg/dL 8.0-10.5 HEPATIC FUNCTION [id number] 08:45:00 Test Item Value Reference Range Interpretation Comments TOTAL PROTEIN (test code = PROT) g/dL 6.4-8.2 ALBUMIN (test code = ALB) g/dL 3.4-5.0 BILIRUBIN TOTAL (test code = BILT) mg/dL 0.0-1.0 BILIRUBIN DIRECT (test code = BILD) MG/DL 0.0-0.30 SGOT/AST (test code = AST) IUnit/L 15-37 SGPT/ALT (test code = ALT) IUnit/L 30-65 ALKALINE PHOSPHATASE TOTAL (test IUnit/L 20-125 code = ALKP) [id number] 08:45:00 Test Item Value Reference Range Interpretation Comments LIPASE (test code = LIP) U/L 13-57 [id number] 08:45:00 Test Item Value Reference Range Interpretation Comments MAGNESIUM (test code = MAG) mg/dL 1.80-2.40 HCG SERUM [id number] 08:45:00 Test Item Value Reference Range Interpretation Comments HCG SERUM QUAL (test code = SERUM NEGATIVE NEGATIVE HCGQL) CBC W/O [id number] 08:37:00 Test Item Value Reference Range Interpretation [...] code 10.5 fL 7.0-9.0 H = MPV) [id number] 08:24:00 Test Item Value Reference Range Interpretation Comments GLUBED (test code = 112 MG/DL 70-110 H Performe d by certified GLUBED) 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 [id number] 23:25:14 Test Item Value Reference Range Interpretation Comments Creatinine Lvl (test code = Creatinine 0.94 0.50-1.40 Lvl) [facility] [id number] 23:25:14 Test Item Value Reference Range Interpretation Comments Sodium Lvl (test code = Sodium Lvl) 132 135-145 [facility] [id number] 23:25:14 Test Item Value Reference Range Interpretation Comments Potassium Lvl (test code = Potassium 4.7 3.5-5.1 Lvl) [facility] [id number] 23:25:14 Test Item Value Reference Range Interpretation Comments Chloride Lvl (test code = Chloride Lvl) 97 95-109 [facility] [id number] 23:25:14 Test Item Value Reference Range Interpretation Comments CO2 (test code = CO2) 28 24-32 [facility] [id number] 23:25:14 Test Item Value Reference Range Interpretation Comments Calcium Lvl (test code = Calcium Lvl) 10.0 8.5-10.5 [facility] [id number] 23:25:14 Test Item Value Reference Range Interpretation Comments Total Protein (test code = Total 7.4 6.4-8.4 Protein) [facility] [id number] 23:25:14 Test Item Value Reference Range Interpretation Comments Albumin Lvl (test code = Albumin Lvl) 4.0 3.5-5.0 [facility] [id number] 23:25:14 Test Item Value Reference Range Interpretation Comments ALT (test code = ALT) 22 See_Comment [Auto mated message] The system which ge nerated this result transmit owen reference range : <=65. The reference range was not used to interpr et this result as fredi l/abnormal. [facility] [id number] 23:25:14 Test Item Value Reference Range Interpretation Comments AST (test code = AST) 15 See_Comment [Auto mated message] The system which ge nerated this result transmit owen reference range : <=37. The reference range was not used to interpr et this result as fredi l/abnormal. [facility] [employer] [id number] 23:25:14 Test Item Value Reference Range Interpretation Comments Alk Phos (test code = Alk Phos) 74 39-136 [facility] [id number] 23:25:14 Test Item Value Reference Range Interpretation Comments Bili Total (test code = Bili Total) 0.7 0.2-1.3 [facility] [id number] 23:25:14 Test Item Value Reference Range Interpretation Comments AGAP (test code = AGAP) 11.7 10.0-20.0 [facility] [employer] [id number] 23:25:14 Test Item Value Reference Range Interpretation Comments B/C Ratio (test code = B/C Ratio) 16 1 6-25 [facility] [id number] 23:25:14 Test Item Value Reference Range Interpretation Comments Globulin (test code = Globulin) 3.4 2.7-4.2 [facility] [employer] [id number] 23:25:14 Test Item Value Reference Range Interpretation Comments A/G Ratio (test code = A/G Ratio) 1.2 1 0.7-1.6 [facility] [id number] 23:25:14 Test Item Value Reference Range Interpretation Comments eGFR (test code = eGFR) [address] [place] [id number] 23:25:14 Test Item Value Reference Range Interpretation Comments Magnesium Lvl (test code = Magnesium 1.9 1.8-2.4 Lvl) [place] [id number] 23:25:14 Test Item Value Reference Range Interpretation Comments Phosphorus (test code = Phosphorus) 2.8 2.5-4.5 [place] 134341-05-20 23:25:14 Test Item Value Reference Range Interpretation Comments Lipase Lvl (test code = Lipase Lvl) 124 73-393 [facility] [id number] 23:25:14 Test Item Value Reference Range Interpretation Comments S Preg (test code = S Negative (10/04/20 6:25 Preg) PM) [place] [id number] 23:25:14 Test Item Value Reference Range Interpretation Comments Glucose Lvl (test code = Glucose Lvl) 327 70-99 [place] 134341-05-20 23:25:14 Test Item Value Reference Range Interpretation Comments BUN (test code = BUN) 15 7-22 [place] [id number] 23:25:14 Test Item Value Reference Range Interpretation Comments Creatinine Lvl (test code = Creatinine 0.94 0.50-1.40 Lvl) [place] 134341-05-20 23:25:14 Test Item Value Reference Range Interpretation Comments Sodium Lvl (test code = Sodium Lvl) 132 135-145 [place] 134341-05-20 23:25:14 Test Item Value Reference Range Interpretation Comments Potassium Lvl (test code = Potassium 4.7 3.5-5.1 Lvl) [place] 134341-05-20 23:25:14 Test Item Value Reference Range Interpretation Comments Chloride Lvl (test code = Chloride Lvl) 97 95-109 [place] 134341-05-20 23:25:14 Test Item Value Reference Range Interpretation Comments CO2 (test code = CO2) 28 -32 [place] 134341-05-20 23:25:14 Test Item Value Reference Range Interpretation Comments Calcium Lvl (test code = Calcium Lvl) 10.0 8.5-10.5 [place] 134341-05-20 23:25:14 Test Item Value Reference Range Interpretation Comments Total Protein (test code = Total 7.4 6.4-8.[address]) [facility] [id number] 23:25:14 Test Item Value Reference Range Interpretation Comments Albumin Lvl (test code = Albumin Lvl) 4.0 3.5-5.0 [facility] [id number] 23:25:14 Test Item Value Reference Range Interpretation Comments ALT (test code = ALT) 22 See_Comment [Auto mated message] The system which ge nerated this result transmit owen reference range : <=65. The reference range was not used to interpr et this result as fredi l/abnormal. [facility] [id number] 23:25:14 Test Item Value Reference Range Interpretation Comments AST (test code = AST) 15 See_Comment [Auto mated message] The system which ge nerated this result transmit owen reference range : <=37. The reference range was not used to interpr et this result as fredi l/abnormal. [facility] [employer] [id number] 23:25:14 Test Item Value Reference Range Interpretation Comments Alk Phos (test code = Alk Phos) 74 39-136 [facility] [id number] 23:25:14 Test Item Value Reference Range Interpretation Comments Bili Total (test code = Bili Total) 0.7 0.2[facility]1.3 [facility] [id number] 23:25:14 Test Item Value Reference Range Interpretation Comments AGAP (test code = AGAP) 11.7 10.0-20.0 [facility] [employer] [id number] 23:25:14 Test Item Value Reference Range Interpretation Comments B/C Ratio (test code = B/C Ratio) 16 1 6-25 [facility] [id number] 23:25:14 Test Item Value Reference Range Interpretation Comments Globulin (test code = Globulin) 3.4 2.7-4.2 [facility] [employer] [id number] 23:25:14 Test Item Value Reference Range Interpretation Comments A/G Ratio (test code = A/G Ratio) 1.2 1 0.7-1.6 [facility] [id number] 23:25:14 Test Item Value Reference Range Interpretation Comments eGFR (test code = eGFR) 82 [place] 134341-05-20 23:25:14 Test Item Value Reference Range Interpretation Comments Magnesium Lvl (test code = Magnesium 1.9 1.8-2.4 Lvl) [place] 134341-05-20 23:25:14 Test Item Value Reference Range Interpretation Comments Phosphorus (test code = Phosphorus) 2.8 2.5-4.5 [place] 134341-05-20 23:25:14 Test Item Value Reference Range Interpretation Comments Lipase Lvl (test code = Lipase Lvl) 124 73-393 [facility]GKYNSNPAJXFNY4640-35-59 23:25:14 Test Item Value Reference Range Interpretation Comments S Preg (test code = S Negative (10/04/20 6:25 Preg) PM) [place] 134341-05-20 23:25:14 Test Item Value Reference Range Interpretation Comments Glucose Lvl (test code = Glucose Lvl) 327 70-99 [place] 134341-05-20 23:25:14 Test Item Value Reference Range Interpretation Comments BUN (test code = BUN) 15 7-22 [place] 134341-05-20 23:25:14 Test Item Value Reference Range Interpretation Comments Creatinine Lvl (test code = Creatinine 0.94 0.50-1.40 Lvl) [place] 134341-05-20 23:25:14 Test Item Value Reference Range Interpretation Comments Sodium Lvl (test code = Sodium Lvl) 132 135-145 [place] 134341-05-20 23:25:14 Test Item Value Reference Range Interpretation Comments Potassium Lvl (test code = Potassium 4.7 3.5-5.1 Lvl) [place] 134341-05-20 23:25:14 Test Item Value Reference Range Interpretation Comments Chloride Lvl (test code = Chloride Lvl) 97 95-109 [place] 134341-05-20 23:25:14 Test Item Value Reference Range Interpretation Comments CO2 (test code = CO2) 28 -32 [place] 134341-05-20 23:25:14 Test Item Value Reference Range Interpretation Comments Calcium Lvl (test code = Calcium Lvl) 10.0 8.5-10.5 [place] 134341-05-20 23:25:14 Test Item Value Reference Range Interpretation Comments Total Protein (test code = Total 7.4 6.4-8.4 Protein) [facility] [employer] [id number] 23:25:14 Test Item Value Reference Range Interpretation Comments Albumin Lvl (test code = Albumin Lvl) 4.0 3.5-5.0 [facility] [id number] 23:25:14 Test Item Value Reference Range Interpretation Comments ALT (test code = ALT) 22 See_Comment [Auto mated message] The system which ge nerated this result transmit owen reference range : <=65. The reference range was not used to interpr et this result as fredi l/abnormal. [facility] [employer] [id number] 23:25:14 Test Item Value Reference Range Interpretation Comments AST (test code = AST) 15 See_Comment [Auto mated message] The system which ge nerated this result transmit owen reference range : <=37. The reference range was not used to interpr et this result as fredi l/abnormal. [facility] [employer] [id number] 23:25:14 Test Item Value Reference Range Interpretation Comments Alk Phos (test code = Alk Phos) 74 39-136 [facility] [id number] 23:25:14 Test Item Value Reference Range Interpretation Comments Bili Total (test code = Bili Total) 0.7 0.2-1.3 [facility] [id number] 23:25:14 Test Item Value Reference Range Interpretation Comments AGAP (test code = AGAP) 11.7 10.0-20.0 [facility] [employer] [id number] 23:25:14 Test Item Value Reference Range Interpretation Comments B/C Ratio (test code = B/C Ratio) 16 1 6-25 [facility] [id number] 23:25:14 Test Item Value Reference Range Interpretation Comments Globulin (test code = Globulin) 3.4 2.7-4.2 [facility] [employer] [id number] 23:25:14 Test Item Value Reference Range Interpretation Comments A/G Ratio (test code = A/G Ratio) 1.2 1 0.7-1.6 [facility] [employer] [id number] 23:25:14 Test Item Value Reference Range Interpretation Comments eGFR (test code = eGFR) 82 [facility]2021-05-20 23:25:14 Test Item Value Reference Range Interpretation Comments Magnesium Lvl (test code = Magnesium 1.9 1.8-2.4 Lvl) [place] 134341-05-20 23:25:14 Test Item Value Reference Range Interpretation Comments Phosphorus (test code = Phosphorus) 2.8 2.5-4.5 [place] 134341-05-20 23:25:14 Test Item Value Reference Range Interpretation Comments Lipase Lvl (test code = Lipase Lvl) 124 73-393 [place] 900661-05-20 23:25:14 Test Item Value Reference Range Interpretation Comments S Preg (test code = S Negative (10/04/20 6:25 Preg) PM) [place] [address]-05-20 22:29:00 Test Item Value Reference Range Interpretation Comments WBC (test code = WBC) 10.1 3.7-10.4 [place] 885321-05-20 22:29:00 Test Item Value Reference Range Interpretation Comments RBC (test code = RBC) 4.32 4.20-5.40 [place] 885321-05-20 22:29:00 Test Item Value Reference Range Interpretation Comments Hgb (test code = Hgb) 14.5 12.0-16.0 [place] 885321-05-20 22:29:00 Test Item Value Reference Range Interpretation Comments Hct (test code = Hct) 42.7 36.0-48.0 [place] 885321-05-20 22:29:00 Test Item Value Reference Range Interpretation Comments MCV (test code = MCV) 98.8 80.0-98.0 [place] 885321-05-20 22:29:00 Test Item Value Reference Range Interpretation Comments MCH (test code = MCH) 33.5 pg 27.0-31.0 [place] 885321-05-20 22:29:00 Test Item Value Reference Range Interpretation Comments MCHC (test code = MCHC) 33.9 32.0-36.0 [place] 885321-05-20 22:29:00 Test Item Value Reference Range Interpretation Comments RDW (test code = RDW) 12.9 11.5-14.5 [place] 885321-05-20 22:29:00 Test Item Value Reference Range Interpretation Comments Platelet (test code = Platelet) 243 133-450 [facility] HospitalRgpsuqvRFCPOHXDTR2374-87-75 22:29:00 Test Item Value Reference Range Interpretation Comments MPV (test code = MPV) 9.0 7.4-10.4 [place] 885321-05-20 22:29:00 Test Item Value Reference Range Interpretation Comments RBC Morph (test code = Normal (10/04/20 5:29 RBC Morph) PM) [place] 885321-05-20 22:29:00 Test Item Value Reference Range Interpretation Comments Plt Morph (test code = See Note 1(10/04/20 Plt Morph) 5:29 PM) [place] 885321-05-20 22:29:00 Test Item Value Reference Range Interpretation Comments Segs (test code = Segs) 61.3 45.0-75.0 [place] 885321-05-20 22:29:00 Test Item Value Reference Range Interpretation Comments Lymphocytes (test code = Lymphocytes) 26.2 20.0-40.0 [place] 885321-05-20 22:29:00 Test Item Value Reference Range Interpretation Comments Monocytes (test code = Monocytes) 7.6 2.0-12.0 [facility] HospitalDsyjtckTXONOCSYFV5505-92-31 22:29:00 Test Item Value Reference Range Interpretation Comments Eosinophils (test code = 4.3 See_Comment [A utomated message] The Eosinophils) system which ge nerated this result tra nsmitted reference range : <=4.0. The reference r jase was not used to int erpret this result as normal/abnormal . [facility] HospitalPpzyrrgLOQKMWFJKJ4416-00-44 22:29:00 Test Item Value Reference Range Interpretation Comments Basophils (test code = 0.6 See_Comment [Aut omated message] The Basophils) system which ge nerated this result tra nsmitted reference range : <=1.0. The reference r jase was not used to int erpret this result as normal/abnormal . [place] 885321-05-20 22:29:00 Test Item Value Reference Range Interpretation Comments Neutrophils # (test code = Neutrophils 6.2 1.5-8.1 #) [facility] HospitalMgabyjeLWXZBCPXUM8029-57-56 22:29:00 Test Item Value Reference Range Interpretation Comments Lymphocytes # (test code = Lymphocytes 2.7 1.0-5.5 #) [facility] HospitalSomhrlyLAAWZTTVMV4975-20-40 22:29:00 Test Item Value Reference Range Interpretation Comments Monocytes # (test code 0.8 See_Comment [Aut omated message] The = Monocytes #) system which generated this result tra nsmitted reference range : <=0.8. The reference r jase was not used to int erpret this result as normal/abnormal . [place] 885321-05-20 22:29:00 Test Item Value Reference Range Interpretation Comments Eosinophils # (test code 0.4 See_Comment [A utomated message] The = Eosinophils #) system whic h generated this result tra nsmitted reference range : <=0.5. The reference r jase was not used to int erpret this result as normal/abnormal . [facility] HospitalVsokbuvLJONKOWIWB0905-13-63 22:29:00 Test Item Value Reference Range Interpretation Comments Basophils # (test code 0.1 See_Comment [Aut omated message] The = Basophils #) system which generated this result tra nsmitted reference range : <=0.2. The reference r jase was not used to int erpret this result as normal/abnormal . [facility] HospitalXbbsbshJGNKHYSISJ0139-45-51 22:29:00 Test Item Value Reference Range Interpretation Comments WBC (test code = WBC) 10.1 3.7-10.4 [place] 885321-05-20 22:29:00 Test Item Value Reference Range Interpretation Comments RBC (test code = RBC) 4.32 4.20-5.40 [place] 885321-05-20 22:29:00 Test Item Value Reference Range Interpretation Comments Hgb (test code = Hgb) 14.5 12.0-16.0 [place] [address]-05-20 22:29:00 Test Item Value Reference Range Interpretation Comments Hct (test code = Hct) 42.7 36.0-48.0 [place] 885321-05-20 22:29:00 Test Item Value Reference Range Interpretation Comments MCV (test code = MCV) 98.8 80.0-98.0 [place] 885321-05-20 22:29:00 Test Item Value Reference Range Interpretation Comments MCH (test code = MCH) 33.5 pg 27.0-31.0 [facility] HospitalOkkcrcvSTMRMYHTCI9784-17-35 22:29:00 Test Item Value Reference Range Interpretation Comments MCHC (test code = MCHC) 33.9 32.0-36.0 [facility] HospitalJgwecmuFICPWPXNSG2872-58-36 22:29:00 Test Item Value Reference Range Interpretation Comments RDW (test code = RDW) 12.9 11.5-14.5 [facility] HospitalHivtrzrFGPSWFCONK0702-51-26 22:29:00 Test Item Value Reference Range Interpretation Comments Platelet (test code = Platelet) 243 133-450 [facility] HospitalWjrodsiCDQOMDXEUU0975-45-04 22:29:00 Test Item Value Reference Range Interpretation Comments MPV (test code = MPV) 9.0 7.4-10.4 [facility] HospitalIkjzmasUINLEGAHWQ6111-03-15 22:29:00 Test Item Value Reference Range Interpretation Comments RBC Morph (test code = Normal (10/04/20 5:29 RBC Morph) PM) [facility] HospitalIhtexvoAAMBEWPXXK4991-32-66 22:29:00 Test Item Value Reference Range Interpretation Comments Plt Morph (test code = See Note 1(10/04/20 Plt Morph) 5:29 PM) [facility] HospitalSunevpiCDUJVWJCUO0623-80-84 22:29:00 Test Item Value Reference Range Interpretation Comments Segs (test code = Segs) 61.3 45.0-75.0 [facility] HospitalUifcdkrBZCGLUAGQP3638-57-71 22:29:00 Test Item Value Reference Range Interpretation Comments Lymphocytes (test code = Lymphocytes) 26.2 20.0-40.0 [facility] HospitalDvlfgibHYMIXYMBZY3317-19-42 22:29:00 Test Item Value Reference Range Interpretation Comments Monocytes (test code = Monocytes) 7.6 2.0-12.0 [place] 885321-05-20 22:29:00 Test Item Value Reference Range Interpretation Comments Eosinophils (test code = 4.3 See_Comment [A utomated message] The Eosinophils) system which ge nerated this result tra nsmitted reference range : <=4.0. The reference r jase was not used to int erpret this result as normal/abnormal . [facility] HospitalIhflkpoWCOUZXZODN2906-26-97 22:29:00 Test Item Value Reference Range Interpretation Comments Basophils (test code = 0.6 See_Comment [Aut omated message] The Basophils) system which ge nerated this result tra nsmitted reference range : <=1.0. The reference r jase was not used to int erpret this result as normal/abnormal . [facility] HospitalFkepidiLRTNRTRBKD2766-51-12 22:29:00 Test Item Value Reference Range Interpretation Comments Neutrophils # (test code = Neutrophils 6.2 1.5-8.1 #) [place] 885321-05-20 22:29:00 Test Item Value Reference Range Interpretation Comments Lymphocytes # (test code = Lymphocytes 2.7 1.0-5.5 #) [place] 885321-05-20 22:29:00 Test Item Value Reference Range Interpretation Comments Monocytes # (test code 0.8 See_Comment [Aut omated message] The = Monocytes #) system which generated this result tra nsmitted reference range : <=0.8. The reference r jase was not used to int erpret this result as normal/abnormal . [place] 885321-05-20 22:29:00 Test Item Value Reference Range Interpretation Comments Eosinophils # (test code 0.4 See_Comment [A utomated message] The = Eosinophils #) system whic h generated this result tra nsmitted reference range : <=0.5. The reference r jase was not used to int erpret this result as normal/abnormal . [place] 885321-05-20 22:29:00 Test Item Value Reference Range Interpretation Comments Basophils # (test code 0.1 See_Comment [Aut omated message] The = Basophils #) system which generated this result tra nsmitted reference range : <=0.2. The reference r jase was not used to int erpret this result as normal/abnormal . [facility] HospitalYhsrkraIRPFPJEQPX9514-02-97 22:29:00 Test Item Value Reference Range Interpretation Comments WBC (test code = WBC) 10.1 3.7-10.4 [place] 885321-05-20 22:29:00 Test Item Value Reference Range Interpretation Comments RBC (test code = RBC) 4.32 4.20-5.40 [place] 885321-05-20 22:29:00 Test Item Value Reference Range Interpretation Comments Hgb (test code = Hgb) 14.5 12.0-16.0 [facility] HospitalUekrabdVVPUXXFZLI2310-19-15 22:29:00 Test Item Value Reference Range Interpretation Comments Hct (test code = Hct) 42.7 36.0-48.0 [facility] HospitalKhoaetbVPXAKTLFDE8562-70-93 22:29:00 Test Item Value Reference Range Interpretation Comments MCV (test code = MCV) 98.8 80.0-98.0 [facility]DzsjforMHGFAQAWAR6717-13-20 22:29:00 Test Item Value Reference Range Interpretation Comments MCH (test code = MCH) 33.5 pg 27.0-31.0 [facility] HospitalZzyqtibXIIBKPKKTL9070-54-56 22:29:00 Test Item Value Reference Range Interpretation Comments MCHC (test code = MCHC) 33.9 32.0-36.0 [facility] HospitalPgrhstfTEEPHIOONB2530-85-36 22:29:00 Test Item Value Reference Range Interpretation Comments RDW (test code = RDW) 12.9 11.5-14.5 [facility] HospitalSphmpbxOUGRZHIUJF2442-89-80 22:29:00 Test Item Value Reference Range Interpretation Comments Platelet (test code = Platelet) 243 133-450 [facility] HospitalEveayabXKKBKZIAHP5820-09-93 22:29:00 Test Item Value Reference Range Interpretation Comments MPV (test code = MPV) 9.0 7.4-10.4 [facility] HospitalLdmlbynSHZYKLISSV9288-28-58 22:29:00 Test Item Value Reference Range Interpretation Comments RBC Morph (test code = Normal (10/04/20 5:29 RBC Morph) PM) [facility] HospitalXnggiknVWLTLYWHMV1147-92-39 22:29:00 Test Item Value Reference Range Interpretation Comments Plt Morph (test code = See Note 1(10/04/20 Plt Morph) 5:29 PM) [facility] HospitalOxyukycBZRAQXRKSO0929-66-82 22:29:00 Test Item Value Reference Range Interpretation Comments Segs (test code = Segs) 61.3 45.0-75.0 [facility] HospitalYzhbaykIHBDSBXCOU2070-76-67 22:29:00 Test Item Value Reference Range Interpretation Comments Lymphocytes (test code = Lymphocytes) 26.2 20.0-40.0 [facility] HospitalNrhptgfIZELMUFURM8681-63-56 22:29:00 Test Item Value Reference Range Interpretation Comments Monocytes (test code = Monocytes) 7.6 2.0-12.0 [place] 885321-05-20 22:29:00 Test Item Value Reference Range Interpretation Comments Eosinophils (test code = 4.3 See_Comment [A utomated message] The Eosinophils) system which ge nerated this result tra nsmitted reference range : <=4.0. The reference r jase was not used to int erpret this result as normal/abnormal . [place] 885321-05-20 22:29:00 Test Item Value Reference Range Interpretation Comments Basophils (test code = 0.6 See_Comment [Aut omated message] The Basophils) system which ge nerated this result tra nsmitted reference range : <=1.0. The reference r jase was not used to int erpret this result as normal/abnormal . [place] 885321-05-20 22:29:00 Test Item Value Reference Range Interpretation Comments Neutrophils # (test code = Neutrophils 6.2 1.5-8.1 #) [place] 885321-05-20 22:29:00 Test Item Value Reference Range Interpretation Comments Lymphocytes # (test code = Lymphocytes 2.7 1.0-5.5 #) [place] 885321-05-20 22:29:00 Test Item Value Reference Range Interpretation Comments Monocytes # (test code 0.8 See_Comment [Aut omated message] The = Monocytes #) system which generated this result tra nsmitted reference range : <=0.8. The reference r jase was not used to int erpret this result as normal/abnormal . [facility] HospitalZdrcoxiXNJVWKBJRW0542-59-66 22:29:00 Test Item Value Reference Range Interpretation Comments Eosinophils # (test code 0.4 See_Comment [A utomated message] The = Eosinophils #) system whic h generated this result tra nsmitted reference range : <=0.5. The reference r jase was not used to int erpret this result as normal/abnormal . [place] 885321-05-20 22:29:00 Test Item Value Reference Range Interpretation Comments Basophils # (test code 0.1 See_Comment [Aut omated message] The = Basophils #) system which generated this result tra nsmitted reference range : <=0.2. The reference r jase was not used to int erpret this result as normal/abnormal . [facility]2021-05-09 21:37:00 Test Item Value Reference Range Interpretation Comments Glucose Lvl (test code = Glucose Lvl) 107 70-99 [place] 134341-05-09 21:37:00 Test Item Value Reference Range Interpretation Comments BUN (test code = BUN) 8 7-22 [place] [address]-05-09 21:37:00 Test Item Value Reference Range Interpretation Comments Creatinine Lvl (test code = Creatinine 0.88 0.50-1.40 Lvl) [place] 134341-05-09 21:37:00 Test Item Value Reference Range Interpretation Comments Sodium Lvl (test code = Sodium Lvl) 140 135-145 [place] 134341-05-09 21:37:00 Test Item Value Reference Range Interpretation Comments Potassium Lvl (test code = Potassium 3.7 3.5-5.1 Lvl) [place] 134341-05-09 21:37:00 Test Item Value Reference Range Interpretation Comments Chloride Lvl (test code = Chloride Lvl) 102 95-109 [place] 134341-05-09 21:37:00 Test Item Value Reference Range Interpretation Comments CO2 (test code = CO2) 29 24-32 [place] 134341-05-09 21:37:00 Test Item Value Reference Range Interpretation Comments Calcium Lvl (test code = Calcium Lvl) 9.5 8.5-10.5 [place] 134341-05-09 21:37:00 Test Item Value Reference Range Interpretation Comments Total Protein (test code = Total 7.8 6.4-8.4 Protein) [place] 134341-05-09 21:37:00 Test Item Value Reference Range Interpretation Comments Albumin Lvl (test code = Albumin Lvl) 4.1 3.5-5.0 [place] 134341-05-09 21:37:00 Test Item Value Reference Range Interpretation Comments ALT (test code = ALT) 21 See_Comment [Auto mated message] The system which ge nerated this result transmit owen reference range : <=65. The reference range was not used to interpr et this result as fredi l/abnormal. [place] 134341-05-09 21:37:00 Test Item Value Reference Range Interpretation Comments AST (test code = AST) 16 See_Comment [Auto mated message] The system which ge nerated this result transmit owen reference range : <=37. The reference range was not used to interpr et this result as fredi l/abnormal. [place] 134341-05-09 21:37:00 Test Item Value Reference Range Interpretation Comments Alk Phos (test code = Alk Phos) 78 39-136 [place] 134341-05-09 21:37:00 Test Item Value Reference Range Interpretation Comments Bili Total (test code = Bili Total) 0.6 0.2-1.3 [place] 134341-05-09 21:37:00 Test Item Value Reference Range Interpretation Comments AGAP (test code = AGAP) 12.7 10.0-20.0 [place] 134341-05-09 21:37:00 Test Item Value Reference Range Interpretation Comments B/C Ratio (test code = B/C Ratio) 9 1 6-25 [place] [address]-05-09 21:37:00 Test Item Value Reference Range Interpretation Comments Globulin (test code = Globulin) 3.7 2.7-4.2 [place] 134341-05-09 21:37:00 Test Item Value Reference Range Interpretation Comments A/G Ratio (test code = A/G Ratio) 1.1 1 0.7-1.6 [place] 134341-05-09 21:37:00 Test Item Value Reference Range Interpretation Comments eGFR (test code = eGFR) 88 [place] 134341-05-09 21:37:00 Test Item Value Reference Range Interpretation Comments Lipase Lvl (test code = Lipase Lvl) 91 73-393 [place] 885321-05-09 21:37:00 Test Item Value Reference Range Interpretation Comments WBC (test code = WBC) 9.8 3.7-10.4 [place] [address]-05-09 21:37:00 Test Item Value Reference Range Interpretation Comments RBC (test code = RBC) 4.45 4.20-5.40 [place] [address]-05-09 21:37:00 Test Item Value Reference Range Interpretation Comments Hgb (test code = Hgb) 14.8 12.0-16.0 [place] [address]-05-09 21:37:00 Test Item Value Reference Range Interpretation Comments Hct (test code = Hct) 43.6 36.0-48.0 [place] 885321-05-09 21:37:00 Test Item Value Reference Range Interpretation Comments MCV (test code = MCV) 98.0 80.0-98.0 [place] 885321-05-09 21:37:00 Test Item Value Reference Range Interpretation Comments MCH (test code = MCH) 33.3 pg 27.0-31.0 [place] 885321-05-09 21:37:00 Test Item Value Reference Range Interpretation Comments MCHC (test code = MCHC) 34.0 32.0-36.0 [place] 885321-05-09 21:37:00 Test Item Value Reference Range Interpretation Comments RDW (test code = RDW) 13.0 11.5-14.5 [place] 885321-05-09 21:37:00 Test Item Value Reference Range Interpretation Comments Platelet (test code = Platelet) 291 133-450 [facility] HospitalAgbsomsRAWXUISOMA4882-78-12 21:37:00 Test Item Value Reference Range Interpretation Comments MPV (test code = MPV) 8.5 7.4-10.4 [facility] HospitalDpcjuvyWTGOSDYMKY9147-57-44 21:37:00 Test Item Value Reference Range Interpretation Comments Segs (test code = Segs) 59.5 45.0-75.0 [facility] HospitalGfwmeayZTMQJMAWHW4369-19-85 21:37:00 Test Item Value Reference Range Interpretation Comments Lymphocytes (test code = Lymphocytes) 27.5 20.0-40.0 [place] 885321-05-09 21:37:00 Test Item Value Reference Range Interpretation Comments Monocytes (test code = Monocytes) 8.6 2.0-12.0 [place] 885321-05-09 21:37:00 Test Item Value Reference Range Interpretation Comments Eosinophils (test code = 3.5 See_Comment [A utomated message] The Eosinophils) system which ge nerated this result tra nsmitted reference range : <=4.0. The reference r jase was not used to int erpret this result as normal/abnormal . [facility] HospitalHvlfrniIOEBXRGCLX0127-57-84 21:37:00 Test Item Value Reference Range Interpretation Comments Basophils (test code = 1.0 See_Comment [Aut omated message] The Basophils) system which ge nerated this result tra nsmitted reference range : <=1.0. The reference r jase was not used to int erpret this result as normal/abnormal . [facility] [facility]ORGD[facility]FOR6824-00-16 21:37:00 Test Item Value Reference Range Interpretation Comments Neutrophils # (test code = Neutrophils 5.8 1.5-8.1 #) [facility] HospitalUubhdikQIBHEUQRRZ5842-62-83 21:37:00 Test Item Value Reference Range Interpretation Comments Lymphocytes # (test code = Lymphocytes 2.7 1.0-5.5 #) [facility] Hospit[id number] 21:37:00 Test Item Value Reference Range Interpretation Comments Monocytes # (test code 0.8 See_Comment [Aut omated message] The = Monocytes #) system which generated this result tra nsmitted reference range : <=0.8. The reference r jase was not used to int erpret this result as normal/abnormal . [facility] HospitalSetulesAHKNLKLYPQ9739-07-51 21:37:00 Test Item Value Reference Range Interpretation Comments Eosinophils # (test code 0.3 See_Comment [A utomated message] The = Eosinophils #) system whic h generated this result tra nsmitted reference range : <=0.5. The reference r jase was not used to int erpret this result as normal/abnormal . [facility] HospitalFauzcdfDTUDLRVYJE9307-03-50 21:37:00 Test Item Value Reference Range Interpretation Comments Basophils # (test code 0.1 See_Comment [Aut omated message] The = Basophils #) system which generated this result tra nsmitted reference range : <=0.2. The reference r jase was not used to int erpret this result as normal/abnormal . [facility] AND [id number] 21:37:00 Test Item Value Reference Range Interpretation Comments UA Color (test code = Yellow *NA*(09/23/20 4:37 UA Color) PM) [facility] AND [id number] 21:37:00 Test Item Value Reference Range Interpretation Comments UA Turbidity (test code = Clear (09/23/20 4:37 UA Turbidity) PM) [facility] AND [id number] 21:37:00 Test Item Value Reference Range Interpretation Comments UA Spec Grav (test code = UA Spec 1.015 1 Grav) [facility] AND [id number] 21:37:00 Test Item Value Reference Range Interpretation Comments UA pH (test code = UA pH) 7.5 1 5.0-8.0 [facility] AND [id number] 21:37:00 Test Item Value Reference Range Interpretation Comments UA Protein (test code = UA Negative mg/dL Protein) [facility] AND [id number] 21:37:00 Test Item Value Reference Range Interpretation Comments UA Glucose (test code = UA Negative mg/dL Glucose) [facility] AND [id number] 21:37:00 Test Item Value Reference Range Interpretation Comments UA Ketones (test code = UA Trace mg/dL Ketones) [facility] AND [id number] 21:37:00 Test Item Value Reference Range Interpretation Comments UA Bili (test code = Negative *NA*(09/23/20 UA Bili) 4:37 PM) [facility] AND [id number] 21:37:00 Test Item Value Reference Range Interpretation Comments UA Blood (test code = Negative (09/23/20 4:37 UA Blood) PM) [facility] AND [id number] 21:37:00 Test Item Value Reference Range Interpretation Comments UA Urobilinogen (test code = UA 0.2 0.1-1.0 Urobilinogen) [facility] AND [id number] 21:37:00 Test Item Value Reference Range Interpretation Comments UA Nitrite (test code Negative (09/23/20 4:37 = UA Nitrite) PM) [facility] AND [id number] 21:37:00 Test Item Value Reference Range Interpretation Comments UA Leuk Est (test Negative (09/23/20 4:37 code = UA Leuk Est) PM) [facility] AND [id number] 21:37:00 Test Item Value Reference Range Interpretation Comments UA Sq Epi (test code = UA Sq Occasional /LPF Epi) [facility] AND [id number] 21:37:00 Test Item Value Reference Range Interpretation Comments UA WBC (test code = UA None Seen (09/23/20 4:37 WBC) PM) [facility] AND [id number] 21:37:00 Test Item Value Reference Range Interpretation Comments UA RBC (test code = UA RBC) 0-2 /HPF [facility] AND [id number] 21:37:00 Test Item Value Reference Range Interpretation Comments UA Bacteria (test code = None Seen (09/23/20 UA Bacteria) 4:37 PM) [facility] [id number] 21:37:00 Test Item Value Reference Range Interpretation Comments U Preg (test code = U Negative (09/23/20 4:37 Preg) PM) [facility] [id number] 21:37:00 Test Item Value Reference Range Interpretation Comments Glucose Lvl (test code = Glucose Lvl) 107 70-99 [facility]2021-05-09 21:37:00 Test Item Value Reference Range Interpretation Comments BUN (test code = BUN) 8 7-22 [facility]2021-05-09 21:37:00 Test Item Value Reference Range Interpretation Comments Creatinine Lvl (test code = Creatinine 0.88 0.50-1.40 Lvl) [facility]2021-05-09 21:37:00 Test Item Value Reference Range Interpretation Comments Sodium Lvl (test code = Sodium Lvl) 140 135-145 [facility]2021-05-09 21:37:00 Test Item Value Reference Range Interpretation Comments Potassium Lvl (test code = Potassium 3.7 3.5-5.1 Lvl) [facility]2021-05-09 21:37:00 Test Item Value Reference Range Interpretation Comments Chloride Lvl (test code = Chloride Lvl) 102 95-109 [facility]2021-05-09 21:37:00 Test Item Value Reference Range Interpretation Comments CO2 (test code = CO2) 29 24-32 [facility]2021-05-09 21:37:00 Test Item Value Reference Range Interpretation Comments Calcium Lvl (test code = Calcium Lvl) 9.5 8.5-10.5 [facility]2021-05-09 21:37:00 Test Item Value Reference Range Interpretation Comments Total Protein (test code = Total 7.8 6.4-8.4 Protein) [facility]2021-05-09 21:37:00 Test Item Value Reference Range Interpretation Comments Albumin Lvl (test code = Albumin Lvl) 4.1 3.5-5.0 [facility] CenterVidFall.comCRITICAL ACCESS [id number] 21:37:00 Test Item Value Reference Range Interpretation Comments ALT (test code = ALT) 21 See_Comment [Auto mated message] The system which ge nerated this result transmit owen reference range : <=65. The reference range was not used to interpr et this result as fredi l/abnormal. [facility] CenterVidFall.comCRITICAL ACCESS HOSPITALFLKRA1012-40-03 21:37:00 Test Item Value Reference Range Interpretation Comments AST (test code = AST) 16 See_Comment [Auto mated message] The system which ge nerated this result transmit owen reference range : <=37. The reference range was not used to interpr et this result as fredi l/abnormal. [facility] CenterVidFall.comCRITICAL ACCESS [id number] 21:37:00 Test Item Value Reference Range Interpretation Comments Alk Phos (test code = Alk Phos) 78 39-136 [facility] CenterEzakus [id number] 21:37:00 Test Item Value Reference Range Interpretation Comments Bili Total (test code = Bili Total) 0.6 0.2-1.3 [facility] CenterVidFall.comCRITICAL ACCESS HOSPITALNTBIB2555-31-00 21:37:00 Test Item Value Reference Range Interpretation Comments AGAP (test code = AGAP) 12.7 10.0-20.0 [facility] CenterVidFall.comCRITICAL ACCESS HOSPITALKTTXV5493-06-75 21:37:00 Test Item Value Reference Range Interpretation Comments B/C Ratio (test code = B/C Ratio) 9 1 6-25 [facility] CenterVidFall.comCRITICAL ACCESS HOSPITALBXSXZ2800-43-23 21:37:00 Test Item Value Reference Range Interpretation Comments Globulin (test code = Globulin) 3.7 2.7-4.2 [facility] CenterVidFall.comCHRISTOPHER [place] 53759LZCBZ2156-07-20 21:37:00 Test Item Value Reference Range Interpretation Comments A/G Ratio (test code = A/G Ratio) 1.1 1 0.7-1.6 [facility]2021-05-09 21:37:00 Test Item Value Reference Range Interpretation Comments eGFR (test code = eGFR) 88 [facility] CenterVidFall.comCRITICAL ACCESS [id number] 21:37:00 Test Item Value Reference Range Interpretation Comments Lipase Lvl (test code = Lipase Lvl) 91 73-393 [facility] HospitalJbryjwyHGFTWOKYAB1388-80-64 21:37:00 Test Item Value Reference Range Interpretation Comments WBC (test code = WBC) 9.8 3.7-10.4 [facility] HospitalJchlvyuLNDDZRMSNQ0735-14-07 21:37:00 Test Item Value Reference Range Interpretation Comments RBC (test code = RBC) 4.45 4.20-5.40 [facility] HospitalJehndstEXIERQZEMX1536-79-69 21:37:00 Test Item Value Reference Range Interpretation Comments Hgb (test code = Hgb) 14.8 12.0-16.0 [facility] HospitalAjikmiuOOAXXRFDWT1143-94-18 21:37:00 Test Item Value Reference Range Interpretation Comments Hct (test code = Hct) 43.6 36.0-48.0 [facility] Ho[id number] 21:37:00 Test Item Value Reference Range Interpretation Comments MCV (test code = MCV) 98.0 80.0-98.0 [facility] HospitalYewfcgsTZWUUXDKTF3476-25-99 21:37:00 Test Item Value Reference Range Interpretation Comments MCH (test code = MCH) 33.3 pg 27.0-31.0 [facility] HospitalGxmoemvVWLATOOYJG4082-22-07 21:37:00 Test Item Value Reference Range Interpretation Comments MCHC (test code = MCHC) 34.0 32.0-36.0 [facility] Hospit[id number] 21:37:00 Test Item Value Reference Range Interpretation Comments RDW (test code = RDW) 13.0 11.5-14.5 [facility] HospitalKyowzztAPOTRXNYKL1861-68-46 21:37:00 Test Item Value Reference Range Interpretation Comments Platelet (test code = Platelet) 291 133-450 [facility] Ho[id number] 21:37:00 Test Item Value Reference Range Interpretation Comments MPV (test code = MPV) 8.5 7.4-10.4 [facility] HospitalUevrojeWYMTRZJFNR5385-38-08 21:37:00 Test Item Value Reference Range Interpretation Comments Segs (test code = Segs) 59.5 45.0-75.0 [facility] HospitalQtmtorqOCYHZTPQHX8138-96-92 21:37:00 Test Item Value Reference Range Interpretation Comments Lymphocytes (test code = Lymphocytes) 27.5 20.0-40.0 [facility] HospitalWfebiqeEVOPSWIQWP3856-90-17 21:37:00 Test Item Value Reference Range Interpretation Comments Monocytes (test code = Monocytes) 8.6 2.0-12.0 [place] 885321-05-09 21:37:00 Test Item Value Reference Range Interpretation Comments Eosinophils (test code = 3.5 See_Comment [A utomated message] The Eosinophils) system which ge nerated this result tra nsmitted reference range : <=4.0. The reference r jase was not used to int erpret this result as normal/abnormal . [place] [address]-05-09 21:37:00 Test Item Value Reference Range Interpretation Comments Basophils (test code = 1.0 See_Comment [Aut omated message] The Basophils) system which ge nerated this result tra nsmitted reference range : <=1.0. The reference r jase was not used to int erpret this result as normal/abnormal . [place] [address]-05-09 21:37:00 Test Item Value Reference Range Interpretation Comments Neutrophils # (test code = Neutrophils 5.8 1.5-8.1 #) [place] [address]-05-09 21:37:00 Test Item Value Reference Range Interpretation Comments Lymphocytes # (test code = Lymphocytes 2.7 1.0-5.5 #) [place] [address]-05-09 21:37:00 Test Item Value Reference Range Interpretation Comments Monocytes # (test code 0.8 See_Comment [Aut omated message] The = Monocytes #) system which generated this result tra nsmitted reference range : <=0.8. The reference r jase was not used to int erpret this result as normal/abnormal . [place] 885321-05-09 21:37:00 Test Item Value Reference Range Interpretation Comments Eosinophils # (test code 0.3 See_Comment [A utomated message] The = Eosinophils #) system wh h generated this result tra nsmitted reference range : <=0.5. The reference r jase was not used to int erpret this result as normal/abnormal . [place] 885321-05-09 21:37:00 Test Item Value Reference Range Interpretation Comments Basophils # (test code 0.1 See_Comment [Aut omated message] The = Basophils #) system which generated this result tra nsmitted reference range : <=0.2. The reference r jase was not used to int erpret this result as normal/abnormal . [facility] AND [id number] 21:37:00 Test Item Value Reference Range Interpretation Comments UA Color (test code = Yellow *NA*(09/23/20 4:37 UA Color) PM) [facility] AND [id number] 21:37:00 Test Item Value Reference Range Interpretation Comments UA Turbidity (test code = Clear (09/23/20 4:37 UA Turbidity) PM) [facility] AND [id number] 21:37:00 Test Item Value Reference Range Interpretation Comments UA Spec Grav (test code = UA Spec 1.015 1 Grav) [facility] AND [id number] 21:37:00 Test Item Value Reference Range Interpretation Comments UA pH (test code = UA pH) 7.5 1 5.0-8.0 [facility] AND [id number] 21:37:00 Test Item Value Reference Range Interpretation Comments UA Protein (test code = UA Negative mg/dL Protein) [facility] AND [id number] 21:37:00 Test Item Value Reference Range Interpretation Comments UA Glucose (test code = UA Negative mg/dL Glucose) [facility] AND [id number] 21:37:00 Test Item Value Reference Range Interpretation Comments UA Ketones (test code = UA Trace mg/dL Ketones) [facility] AND [id number] 21:37:00 Test Item Value Reference Range Interpretation Comments UA Bili (test code = Negative *NA*(09/23/20 UA Bili) 4:37 PM) [facility] AND [id number] 21:37:00 Test Item Value Reference Range Interpretation Comments UA Blood (test code = Negative (09/23/20 4:37 UA Blood) PM) [facility] AND [id number] 21:37:00 Test Item Value Reference Range Interpretation Comments UA Urobilinogen (test code = UA 0.2 0.1-1.0 Urobilinogen) [facility] AND [id number] 21:37:00 Test Item Value Reference Range Interpretation Comments UA Nitrite (test code Negative (09/23/20 4:37 = UA Nitrite) PM) [facility] AND [id number] 21:37:00 Test Item Value Reference Range Interpretation Comments UA Leuk Est (test Negative (09/23/20 4:37 code = UA Leuk Est) PM) [facility] AND [id number] 21:37:00 Test Item Value Reference Range Interpretation Comments UA Sq Epi (test code = UA Sq Occasional /LPF Epi) [facility] AND [id number] 21:37:00 Test Item Value Reference Range Interpretation Comments UA WBC (test code = UA None Seen (09/23/20 4:37 WBC) PM) [facility] AND [id number] 21:37:00 Test Item Value Reference Range Interpretation Comments UA RBC (test code = UA RBC) 0-2 /HPF [facility] AND [id number] 21:37:00 Test Item Value Reference Range Interpretation Comments UA Bacteria (test code = None Seen (09/23/20 UA Bacteria) 4:37 PM) [facility]2021-05-09 21:37:00 Test Item Value Reference Range Interpretation Comments U Preg (test code = U Negative (09/23/20 4:37 Preg) PM) [facility]2021-05-09 21:37:00 Test Item Value Reference Range Interpretation Comments Glucose Lvl (test code = Glucose Lvl) 107 70-99 [facility]2021-05-09 21:37:00 Test Item Value Reference Range Interpretation Comments BUN (test code = BUN) 8 7-22 [facility]2021-05-09 21:37:00 Test Item Value Reference Range Interpretation Comments Creatinine Lvl (test code = Creatinine 0.88 0.50-1.40 Lvl) [facility]2021-05-09 21:37:00 Test Item Value Reference Range Interpretation Comments Sodium Lvl (test code = Sodium Lvl) 140 135-145 [place] 134341-05-09 21:37:00 Test Item Value Reference Range Interpretation Comments Potassium Lvl (test code = Potassium 3.7 3.5-5.1 Lvl) [facility]2021-05-09 21:37:00 Test Item Value Reference Range Interpretation Comments Chloride Lvl (test code = Chloride Lvl) 102 95-109 [facility]2021-05-09 21:37:00 Test Item Value Reference Range Interpretation Comments CO2 (test code = CO2) 29 24-32 [facility] [id number] 21:37:00 Test Item Value Reference Range Interpretation Comments Calcium Lvl (test code = Calcium Lvl) 9.5 8.5-10.5 [facility] [id number] 21:37:00 Test Item Value Reference Range Interpretation Comments Total Protein (test code = Total 7.8 6.4-8.4 Protein) [facility] [id number] 21:37:00 Test Item Value Reference Range Interpretation Comments Albumin Lvl (test code = Albumin Lvl) 4.1 3.5-5.0 [facility] [id number] 21:37:00 Test Item Value Reference Range Interpretation Comments ALT (test code = ALT) 21 See_Comment [Auto mated message] The system which ge nerated this result transmit owen reference range : <=65. The reference range was not used to interpr et this result as fredi l/abnormal. [facility] [id number] 21:37:00 Test Item Value Reference Range Interpretation Comments AST (test code = AST) 16 See_Comment [Auto mated message] The system which ge nerated this result transmit owen reference range : <=37. The reference range was not used to interpr et this result as fredi l/abnormal. [facility] [id number] 21:37:00 Test Item Value Reference Range Interpretation Comments Alk Phos (test code = Alk Phos) 78 39-136 [facility] [id number] 21:37:00 Test Item Value Reference Range Interpretation Comments Bili Total (test code = Bili Total) 0.6 0.2-1.3 [facility] [id number] 21:37:00 Test Item Value Reference Range Interpretation Comments AGAP (test code = AGAP) 12.7 10.0-20.0 [facility] [id number] 21:37:00 Test Item Value Reference Range Interpretation Comments B/C Ratio (test code = B/C Ratio) 9 1 6-25 [facility] [id number] 21:37:00 Test Item Value Reference Range Interpretation Comments Globulin (test code = Globulin) 3.7 2.7-4.2 [place] 134341-05-09 21:37:00 Test Item Value Reference Range Interpretation Comments A/G Ratio (test code = A/G Ratio) 1.1 1 0.7-1.6 [place] 134341-05-09 21:37:00 Test Item Value Reference Range Interpretation Comments eGFR (test code = eGFR) 88 [place] 134341-05-09 21:37:00 Test Item Value Reference Range Interpretation Comments Lipase Lvl (test code = Lipase Lvl) 91 73-393 [place] 885321-05-09 21:37:00 Test Item Value Reference Range Interpretation Comments WBC (test code = WBC) 9.8 3.7-10.4 [place] [address]-05-09 21:37:00 Test Item Value Reference Range Interpretation Comments RBC (test code = RBC) 4.45 4.20-5.40 [place] 885321-05-09 21:37:00 Test Item Value Reference Range Interpretation Comments Hgb (test code = Hgb) 14.8 12.0-16.0 [place] 885321-05-09 21:37:00 Test Item Value Reference Range Interpretation Comments Hct (test code = Hct) 43.6 36.0-48.0 [place] [address]-05-09 21:37:00 Test Item Value Reference Range Interpretation Comments MCV (test code = MCV) 98.0 80.0-98.0 [place] [address]-05-09 21:37:00 Test Item Value Reference Range Interpretation Comments MCH (test code = MCH) 33.3 pg 27.0-31.0 [place] 885321-05-09 21:37:00 Test Item Value Reference Range Interpretation Comments MCHC (test code = MCHC) 34.0 32.0-36.0 [place] [address]-05-09 21:37:00 Test Item Value Reference Range Interpretation Comments RDW (test code = RDW) 13.0 11.5-14.5 [place] 885321-05-09 21:37:00 Test Item Value Reference Range Interpretation Comments Platelet (test code = Platelet) 291 133-450 [place] 885321-05-09 21:37:00 Test Item Value Reference Range Interpretation Comments MPV (test code = MPV) 8.5 7.4-10.4 [place] [address]-05-09 21:37:00 Test Item Value Reference Range Interpretation Comments Segs (test code = Segs) 59.5 45.0-75.0 [place] 885321-05-09 21:37:00 Test Item Value Reference Range Interpretation Comments Lymphocytes (test code = Lymphocytes) 27.5 20.0-40.0 [place] [address]-05-09 21:37:00 Test Item Value Reference Range Interpretation Comments Monocytes (test code = Monocytes) 8.6 2.0-12.0 [place] 885321-05-09 21:37:00 Test Item Value Reference Range Interpretation Comments Eosinophils (test code = 3.5 See_Comment [A utomated message] The Eosinophils) system which ge nerated this result tra nsmitted reference range : <=4.0. The reference r jase was not used to int erpret this result as normal/abnormal . [place] 885321-05-09 21:37:00 Test Item Value Reference Range Interpretation Comments Basophils (test code = 1.0 See_Comment [Aut omated message] The Basophils) system which ge nerated this result tra nsmitted reference range : <=1.0. The reference r jase was not used to int erpret this result as normal/abnormal . [place] 885321-05-09 21:37:00 Test Item Value Reference Range Interpretation Comments Neutrophils # (test code = Neutrophils 5.8 1.5-8.1 #) [place] 885321-05-09 21:37:00 Test Item Value Reference Range Interpretation Comments Lymphocytes # (test code = Lymphocytes 2.7 1.0-5.5 #) [place] [address]-05-09 21:37:00 Test Item Value Reference Range Interpretation Comments Monocytes # (test code 0.8 See_Comment [Aut omated message] The = Monocytes #) system which generated this result tra nsmitted reference range : <=0.8. The reference r jase was not used to int erpret this result as normal/abnormal . [place] 885321-05-09 21:37:00 Test Item Value Reference Range Interpretation Comments Eosinophils # (test code 0.3 See_Comment [A utomated message] The = Eosinophils #) system whic h generated this result tra nsmitted reference range : <=0.5. The reference r jase was not used to int erpret this result as normal/abnormal . [facility] [id number] 21:37:00 Test Item Value Reference Range Interpretation Comments Basophils # (test code 0.1 See_Comment [Aut omated message] The = Basophils #) system which generated this result tra nsmitted reference range : <=0.2. The reference r jase was not used to int erpret this result as normal/abnormal . [facility] AND [id number] 21:37:00 Test Item Value Reference Range Interpretation Comments UA Color (test code = Yellow *NA*(09/23/20 4:37 UA Color) PM) [facility] AND [id number] 21:37:00 Test Item Value Reference Range Interpretation Comments UA Turbidity (test code = Clear (09/23/20 4:37 UA Turbidity) PM) [facility] AND [id number] 21:37:00 Test Item Value Reference Range Interpretation Comments UA Spec Grav (test code = UA Spec 1.015 1 Grav) [facility] AND [id number] 21:37:00 Test Item Value Reference Range Interpretation Comments UA pH (test code = UA pH) 7.5 1 5.0-8.0 [facility] AND [id number] 21:37:00 Test Item Value Reference Range Interpretation Comments UA Protein (test code = UA Negative mg/dL Protein) [facility] AND [id number] 21:37:00 Test Item Value Reference Range Interpretation Comments UA Glucose (test code = UA Negative mg/dL Glucose) [facility] AND [id number] 21:37:00 Test Item Value Reference Range Interpretation Comments UA Ketones (test code = UA Trace mg/dL Ketones) [facility] [id number] 21:37:00 Test Item Value Reference Range Interpretation Comments UA Bili (test code = Negative *NA*(09/23/20 UA Bili) 4:37 PM) [facility] [facility] AND [id number] 21:37:00 Test Item Value Reference Range Interpretation Comments UA Blood (test code = Negative (09/23/20 4:37 UA Blood) PM) [facility] [id number] 21:37:00 Test Item Value Reference Range Interpretation Comments UA Urobilinogen (test code = UA 0.2 0.1-1.0 Urobilinogen) [facility] [id number] 21:37:00 Test Item Value Reference Range Interpretation Comments UA Nitrite (test code Negative (09/23/20 4:37 = UA Nitrite) PM) [facility] [id number] 21:37:00 Test Item Value Reference Range Interpretation Comments UA Leuk Est (test Negative (09/23/20 4:37 code = UA Leuk Est) PM) [facility] [id number] 21:37:00 Test Item Value Reference Range Interpretation Comments UA Sq Epi (test code = UA Sq Occasional /LPF Epi) [facility] [id number] 21:37:00 Test Item Value Reference Range Interpretation Comments UA WBC (test code = UA None Seen (09/23/20 4:37 WBC) PM) [facility] AND [id number] 21:37:00 Test Item Value Reference Range Interpretation Comments UA RBC (test code = UA RBC) 0-2 /HPF [facility] AND [id number] 21:37:00 Test Item Value Reference Range Interpretation Comments UA Bacteria (test code = None Seen (09/23/20 UA Bacteria) 4:37 PM) [facility] [id number] 21:37:00 Test Item Value Reference Range Interpretation Comments U Preg (test code = U Negative (09/23/20 4:37 Preg) PM) [facility], ABDOMEN/KUB, 1 VIEW [id number] 15:46:00Reason for exam:- >Leads positioning in stomach [facility] 1990 Sex: FFINAL REPORT CLINICAL HISTORY: [...] excluded on the supine view. Signed: Zuleika Morrison MDReport Verified Date/Time: 08/06/2020 15:46:53 Reading Location: [facility] Radiology Reading Room Electronically signed by: ZULEIKA MORRISON M.D. on08/06/2020 03:46 PMPOCT-GLUCOSE [id number] 11:09:00 Test Item Value Reference Range Interpretation Comments POC-GLUCOSE METER 269 mg/dL 70-110 H : TESTED A T [facility] 6720 (BEAKER) (test code = [facility], 1538) [address]: Dressage Instructor/Techni vanessa ID = [id number] for JENIFER JIN POCT-GLUCOSE [id number] 09:16:00 Test Item Value Reference Range Interpretation Comments POC-GLUCOSE METER 220 mg/dL 70-110 H : TESTED A T [facility] 6720 (BEAKER) (test code [facility], = 1538) 34567: Dressage Instructor/Techni vanessa ID = [id number] for KALI ZKEENAN BASIC METABOLIC [id number] 08:28:00 Test Item Value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 [facility]2019-08-03 06:44:00 Test Item Value Reference Range Interpretation Comments Chloride Lvl (test code = Chloride Lvl) 103 95-109 [facility]2019-08-03 06:44:00 Test Item Value Reference Range Interpretation Comments Potassium Lvl (test code = Potassium 3.8 3.5-5.1 Lvl) [facility]2019-08-03 06:44:00 Test Item Value Reference Range Interpretation Comments Calcium Lvl (test code = Calcium Lvl) 9.4 8.5-10.5 [facility]2019-08-03 06:44:00 Test Item Value Reference Range Interpretation Comments CO2 (test code = CO2) 24 24-32 [facility]2019-08-03 06:44:00 Test Item Value Reference Range Interpretation Comments Glucose Lvl (test code = Glucose Lvl) 328 70-99 [facility]2019-08-03 06:44:00 Test Item Value Reference Range Interpretation Comments Creatinine Lvl (test code = Creatinine 0.90 0.50-1.40 Lvl) [facility]2019-08-03 06:44:00 Test Item Value Reference Range Interpretation Comments BUN (test code = BUN) 5 7-22 [facility]2019-08-03 06:44:00 Test Item Value Reference Range Interpretation Comments B/C Ratio (test code = B/C Ratio) 6 1 6-25 [facility]2019-08-03 06:44:00 Test Item Value Reference Range Interpretation Comments AGAP (test code = AGAP) 12.8 10.0-20.0 [facility] [id number] 06:44:00 Test Item Value Reference Range Interpretation Comments Globulin (test code = Globulin) 3.3 2.7-4.2 [facility]2019-08-03 06:44:00 Test Item Value Reference Range Interpretation Comments A/G Ratio (test code = A/G Ratio) 1.3 1 0.7-1.6 [facility]CTCMPVVEVJPIX3045-27-65 06:44:00 Test Item Value Reference Range Interpretation Comments S Preg (test code = S Negative *NA*(12/18/18 Preg) 1:44 AM) [id number] 06:44:00 Test Item Value Reference Range Interpretation Comments Eosinophils (test code = 7.3 See_Comment [A utomated message] The Eosinophils) system which ge nerated this result tra nsmitted reference range : <=4.0. The reference r jase was not used to int erpret this result as normal/abnormal . [facility] HospitalXfqvdxfJJIMUPOPEK5241-28-41 06:44:00 Test Item Value Reference Range Interpretation Comments Monocytes (test code = Monocytes) 5.9 2.0-12.0 [facility] HospitalWwcvnigJADTEMFUXG8661-87-70 06:44:00 Test Item Value Reference Range Interpretation Comments Lymphocytes (test code = Lymphocytes) 38.4 20.0-40.0 [facility] HospitalRdydcaqGUODENTNZG2690-03-80 06:44:00 Test Item Value Reference Range Interpretation Comments Segs (test code = Segs) 47.6 45.0-75.0 [facility] HospitalTvjpnamXLEFYYPFSA6939-49-82 06:44:00 Test Item Value Reference Range Interpretation Comments Eosinophils # (test code 0.6 See_Comment [A utomated message] The = Eosinophils #) system whic h generated this result tra nsmitted reference range : <=0.5. The reference r jase was not used to int erpret this result as normal/abnormal . [facility] HospitalCzxonatQFVLDBUWXJ7756-23-03 06:44:00 Test Item Value Reference Range Interpretation Comments Monocytes # (test code 0.5 See_Comment [Aut omated message] The = Monocytes #) system which generated this result tra nsmitted reference range : <=0.8. The reference r jase was not used to int erpret this result as normal/abnormal . [facility] HospitalNekrdsxNRWSYUUVTV7463-63-68 06:44:00 Test Item Value Reference Range Interpretation Comments Basophils (test code = 0.8 See_Comment [Aut omated message] The Basophils) system which ge nerated this result tra nsmitted reference range : <=1.0. The reference r jase was not used to int erpret this result as normal/abnormal . [facility] HospitalPahgdkzRWQQWXSYHG5903-17-70 06:44:00 Test Item Value Reference Range Interpretation Comments Neutrophils # (test code = Neutrophils 4.0 1.5-8.1 #) [facility] HospitalQozaeoxQBMKIMCZEO0317-32-84 06:44:00 Test Item Value Reference Range Interpretation Comments Lymphocytes # (test code = Lymphocytes 3.3 1.0-5.5 #) [facility] HospitalArhgbdjBZKYELNOCA4595-82-75 06:44:00 Test Item Value Reference Range Interpretation Comments Basophils # (test code 0.1 See_Comment [Aut omated message] The = Basophils #) system which generated this result tra nsmitted reference range : <=0.2. The reference r jase was not used to int erpret this result as normal/abnormal . [facility] HospitalTwqtnacDKDMVVHLJG5433-28-16 06:44:00 Test Item Value Reference Range Interpretation Comments Hgb (test code = Hgb) 14.5 12.0-16.0 [facility] HospitalZvtypwzGHKFNAOJVV1999-26-13 06:44:00 Test Item Value Reference Range Interpretation Comments RBC (test code = RBC) 4.20 4.20-5.40 [facility] HospitalItklxarWJMIPYXUYB1502-43-35 06:44:00 Test Item Value Reference Range Interpretation Comments Hct (test code = Hct) 41.2 36.0-48.0 [facility] HospitalIxxpjfpPZEPAWFJUK7579-83-94 06:44:00 Test Item Value Reference Range Interpretation Comments WBC (test code = WBC) 8.5 3.7-10.4 [facility] HospitalOdudrvnNSWWRCGSFE9670-31-30 06:44:00 Test Item Value Reference Range Interpretation Comments RDW (test code = RDW) 12.8 11.5-14.5 [facility] HospitalJkwhdgaASIEFSUYYI2845-12-60 06:44:00 Test Item Value Reference Range Interpretation Comments Platelet (test code = Platelet) 303 133-450 [facility] HospitalPzahaauDMIHOTDJZM8638-46-21 06:44:00 Test Item Value Reference Range Interpretation Comments MPV (test code = MPV) 8.5 7.4-10.4 [facility] HospitalGjbkxrxVWWSFWOTZX2512-03-05 06:44:00 Test Item Value Reference Range Interpretation Comments MCHC (test code = MCHC) 35.2 32.0-36.0 [facility] HospitalCiodxddAXREKVDWUL0879-92-70 06:44:00 Test Item Value Reference Range Interpretation Comments MCH (test code = MCH) 34.5 pg 27.0-31.0 [facility] HospitalJgbwxwoRASJKDNBXK0141-05-41 06:44:00 Test Item Value Reference Range Interpretation Comments MCV (test code = MCV) 98.1 80.0-98.0 [facility] HospitalXhdweyiWJMGJGSKRJ1123-87-88 06:44:00 Test Item Value Reference Range Interpretation Comments PT (test code = PT) 12.8 s 12.0-14.7 [facility] HospitalXwolxflFFZTQKJOFS4274-03-01 06:44:00 Test Item Value Reference Range Interpretation Comments INR (test code = INR) 0.98 1 0.85-1.17 [facility] HospitalTznzklrUKWFKBRHAE5804-83-56 06:44:00 Test Item Value Reference Range Interpretation Comments PTT (test code = PTT) 25.3 s 22.9-35.8 [facility] AND [id number] 06:44:00 Test Item Value Reference Range Interpretation Comments UA Leuk Est (test Negative (12/18/18 1:44 code = UA Leuk Est) AM) [facility] AND [id number] 06:44:00 Test Item Value Reference Range Interpretation Comments UA Sq Epi (test code = UA Sq Occasional /LPF Epi) [facility] AND [id number] 06:44:00 Test Item Value Reference Range Interpretation Comments UA Blood (test code = Negative (12/18/18 1:44 UA Blood) AM) [facility] AND [id number] 06:44:00 Test Item Value Reference Range Interpretation Comments UA Nitrite (test code Negative (12/18/18 1:44 = UA Nitrite) AM) [facility] AND [id number] 06:44:00 Test Item Value Reference Range Interpretation Comments UA WBC (test code = no gt See_Comment [Automa owen message] The UA WBC) system which ge nerated this result transmit owen reference range : <=5. The reference range was not used to interpr et this result as fredi l/abnormal. [facility] AND [id number] 06:44:00 Test Item Value Reference Range Interpretation Comments UA Urobilinogen (test code = UA <=1.0 mg/dL 0.1-1.0 Urobilinogen) [facility] AND [id number] 06:44:00 Test Item Value Reference Range Interpretation Comments UA Protein (test code = UA Negative mg/dL Protein) [facility] AND [id number] 06:44:00 Test Item Value Reference Range Interpretation Comments UA Glucose (test code = UA Glucose) 500 mg/dL [facility] AND [id number] 06:44:00 Test Item Value Reference Range Interpretation Comments UA pH (test code = UA pH) 7.0 1 5.0-8.0 [facility] AND [id number] 06:44:00 Test Item Value Reference Range Interpretation Comments UA Bili (test code = Negative *NA*(12/18/18 UA Bili) 1:44 AM) [facility] AND [id number] 06:44:00 Test Item Value Reference Range Interpretation Comments UA Ketones (test code = UA Negative mg/dL Ketones) [facility] AND [id number] 06:44:00 Test Item Value Reference Range Interpretation Comments UA Color (test code = Colorless *NA*(12/18/18 UA Color) 1:44 AM) [facility] AND [id number] 06:44:00 Test Item Value Reference Range Interpretation Comments UA Turbidity (test code = Clear (12/18/18 1:44 UA Turbidity) AM) [facility] AND [id number] 06:44:00 Test Item Value Reference Range Interpretation Comments UA Spec Grav (test code = UA Spec 1.003 [address] [id number] 06:44:00 Test Item Value Reference Range Interpretation Comments Lipase Lvl (test code = Lipase Lvl) 254 73-393 [facility] WOZKU1700-75-09 06:44:00 Test Item Value Reference Range Interpretation Comments eGFR (test code = eGFR) 88 [facility]2019-08-03 06:44:00 Test Item Value Reference Range Interpretation Comments Bili Total (test code = Bili Total) 0.5 0.2-1.3 [facility]2019-08-03 06:44:00 Test Item Value Reference Range Interpretation Comments Albumin Lvl (test code = Albumin Lvl) 4.2 3.5-5.0 [facility]2019-08-03 06:44:00 Test Item Value Reference Range Interpretation Comments Total Protein (test code = Total 7.5 6.4-8.4 Protein) [facility]2019-08-03 06:44:00 Test Item Value Reference Range Interpretation Comments AST (test code = AST) 8 See_Comment [Auto mated message] The system which ge nerated this result transmit owen reference range : <=37. The reference range was not used to interpr et this result as fredi l/abnormal. [facility]2019-08-03 06:44:00 Test Item Value Reference Range Interpretation Comments ALT (test code = ALT) 19 See_Comment [Auto mated message] The system which ge nerated this result transmit owen reference range : <=65. The reference range was not used to interpr et this result as fredi l/abnormal. [facility]2019-08-03 06:44:00 Test Item Value Reference Range Interpretation Comments Alk Phos (test code = Alk Phos) 73 39-136 [facility]2019-08-03 06:44:00 Test Item Value Reference Range Interpretation Comments Sodium Lvl (test code = Sodium Lvl) 136 135-145 [facility]2019-08-03 06:44:00 Test Item Value Reference Range Interpretation Comments Chloride Lvl (test code = Chloride Lvl) 103 95-109 [facility]2019-08-03 06:44:00 Test Item Value Reference Range Interpretation Comments Potassium Lvl (test code = Potassium 3.8 3.5-5.1 Lvl) [facility]2019-08-03 06:44:00 Test Item Value Reference Range Interpretation Comments Calcium Lvl (test code = Calcium Lvl) 9.4 8.5-10.5 [facility]2019-08-03 06:44:00 Test Item Value Reference Range Interpretation Comments CO2 (test code = CO2) 24 24-32 [facility]2019-08-03 06:44:00 Test Item Value Reference Range Interpretation Comments Glucose Lvl (test code = Glucose Lvl) 328 70-99 [facility]2019-08-03 06:44:00 Test Item Value Reference Range Interpretation Comments Creatinine Lvl (test code = Creatinine 0.90 0.50-1.40 Lvl) [facility]2019-08-03 06:44:00 Test Item Value Reference Range Interpretation Comments BUN (test code = BUN) 5 7-22 [facility]2019-08-03 06:44:00 Test Item Value Reference Range Interpretation Comments B/C Ratio (test code = B/C Ratio) 6 1 6-25 [facility]2019-08-03 06:44:00 Test Item Value Reference Range Interpretation Comments AGAP (test code = AGAP) 12.8 10.0-20.0 [facility]2019-08-03 06:44:00 Test Item Value Reference Range Interpretation Comments Globulin (test code = Globulin) 3.3 2.7-4.2 [facility]2019-08-03 06:44:00 Test Item Value Reference Range Interpretation Comments A/G Ratio (test code = A/G Ratio) 1.3 1 0.7-1.6 [facility]JctipmzQAKBBLMTVDZPX3049-12-13 06:44:00 Test Item Value Reference Range Interpretation Comments S Preg (test code = S Negative *NA*(12/18/18 Preg) 1:44 AM) [facility] HospitalAobbhhrSGURCKDDRA6028-60-94 06:44:00 Test Item Value Reference Range Interpretation Comments Eosinophils (test code = 7.3 See_Comment [A utomated message] The Eosinophils) system which ge nerated this result tra nsmitted reference range : <=4.0. The reference r jase was not used to int erpret this result as normal/abnormal . [facility] HospitalEeaygyfTUKBCIBVJH9725-55-04 06:44:00 Test Item Value Reference Range Interpretation Comments Monocytes (test code = Monocytes) 5.9 2.0-12.0 [facility] HospitalAujmwftGKCXQRRLCC5303-81-89 06:44:00 Test Item Value Reference Range Interpretation Comments Lymphocytes (test code = Lymphocytes) 38.4 20.0-40.0 [facility] HospitalGtdqxwjBNIVZUJZBO5124-52-73 06:44:00 Test Item Value Reference Range Interpretation Comments Segs (test code = Segs) 47.6 45.0-75.0 [facility] HospitalBggbknpCRZXGONCBV2531-78-86 06:44:00 Test Item Value Reference Range Interpretation Comments Eosinophils # (test code 0.6 See_Comment [A utomated message] The = Eosinophils #) system whic h generated this result tra nsmitted reference range : <=0.5. The reference r jase was not used to int erpret this result as normal/abnormal . [facility] HospitalMvdgwubPYWYZKUTZO0624-96-69 06:44:00 Test Item Value Reference Range Interpretation Comments Monocytes # (test code 0.5 See_Comment [Aut omated message] The = Monocytes #) system which generated this result tra nsmitted reference range : <=0.8. The reference r jase was not used to int erpret this result as normal/abnormal . [facility] HospitalKmrfhdqDFQZZXKAGW4466-54-32 06:44:00 Test Item Value Reference Range Interpretation Comments Basophils (test code = 0.8 See_Comment [Aut omated message] The Basophils) system which ge nerated this result tra nsmitted reference range : <=1.0. The reference r jase was not used to int erpret this result as normal/abnormal . [facility] HospitalWaosapyVAOBCOBOGU9823-95-29 06:44:00 Test Item Value Reference Range Interpretation Comments Neutrophils # (test code = Neutrophils 4.0 1.5-8.1 #) [facility] HospitalUfpgehoBEBTWZPQNF2375-59-78 06:44:00 Test Item Value Reference Range Interpretation Comments Lymphocytes # (test code = Lymphocytes 3.3 1.0-5.5 #) [facility] HospitalYghryooWSENIAPANT3274-15-24 06:44:00 Test Item Value Reference Range Interpretation Comments Basophils # (test code 0.1 See_Comment [Aut omated message] The = Basophils #) system which generated this result tra nsmitted reference range : <=0.2. The reference r jase was not used to int erpret this result as normal/abnormal . [facility] HospitalGyxvhouFMLLAFBCNU4936-34-96 06:44:00 Test Item Value Reference Range Interpretation Comments Hgb (test code = Hgb) 14.5 12.0-16.0 [facility] HospitalAkuuhurSXNMLMMOLN8003-64-12 06:44:00 Test Item Value Reference Range Interpretation Comments RBC (test code = RBC) 4.20 4.20-5.40 [facility] HospitalXkuwwjbTHNLQFAHNZ2167-38-92 06:44:00 Test Item Value Reference Range Interpretation Comments Hct (test code = Hct) 41.2 36.0-48.0 [facility] HospitalPnfqzeaMKBRUIVHUV1314-20-31 06:44:00 Test Item Value Reference Range Interpretation Comments WBC (test code = WBC) 8.5 3.7-10.4 [facility] HospitalJvtnnuoMLNCEXDQTI5272-42-31 06:44:00 Test Item Value Reference Range Interpretation Comments RDW (test code = RDW) 12.8 11.5-14.5 [facility] HospitalOewiicvNVPOVFQCQJ1710-96-43 06:44:00 Test Item Value Reference Range Interpretation Comments Platelet (test code = Platelet) 303 133-450 [facility] HospitalNuojmowXXXSBNNHNG0798-42-15 06:44:00 Test Item Value Reference Range Interpretation Comments MPV (test code = MPV) 8.5 7.4-10.4 [facility] HospitalNonpraoQKAWXAVDJD7746-78-82 06:44:00 Test Item Value Reference Range Interpretation Comments MCHC (test code = MCHC) 35.2 32.0-36.0 [facility] HospitalRutyczzHULPVWAOTM0472-00-59 06:44:00 Test Item Value Reference Range Interpretation Comments MCH (test code = MCH) 34.5 pg 27.0-31.0 [facility] HospitalNcgptlaLKZYLKFYAK1798-96-78 06:44:00 Test Item Value Reference Range Interpretation Comments MCV (test code = MCV) 98.1 80.0-98.0 [facility] HospitalXxqudocBWKMFKHBQM5988-42-98 06:44:00 Test Item Value Reference Range Interpretation Comments PT (test code = PT) 12.8 s 12.0-14.7 [facility] HospitalZgqcnsjUCDJTMXZCR7715-68-95 06:44:00 Test Item Value Reference Range Interpretation Comments INR (test code = INR) 0.98 1 0.85-1.17 [facility] HospitalSpxghseQZDADVFXNM7895-28-88 06:44:00 Test Item Value Reference Range Interpretation Comments PTT (test code = PTT) 25.3 s 22.9-35.8 [facility] AND [id number] 06:44:00 Test Item Value Reference Range Interpretation Comments UA Leuk Est (test Negative (12/18/18 1:44 code = UA Leuk Est) AM) [facility] AND [id number] 06:44:00 Test Item Value Reference Range Interpretation Comments UA Sq Epi (test code = UA Sq Occasional /LPF Epi) [facility] AND [id number] 06:44:00 Test Item Value Reference Range Interpretation Comments UA Blood (test code = Negative (12/18/18 1:44 UA Blood) AM) [facility] AND [id number] 06:44:00 Test Item Value Reference Range Interpretation Comments UA Nitrite (test code Negative (12/18/18 1:44 = UA Nitrite) AM) [facility] AND [id number] 06:44:00 Test Item Value Reference Range Interpretation Comments UA WBC (test code = no gt See_Comment [Automa owen message] The UA WBC) system which ge nerated this result transmit owen reference range : <=5. The reference range was not used to interpr et this result as fredi l/abnormal. [facility] AND [id number] 06:44:00 Test Item Value Reference Range Interpretation Comments UA Urobilinogen (test code = UA <=1.0 mg/dL 0.1-1.0 Urobilinogen) [facility] AND [id number] 06:44:00 Test Item Value Reference Range Interpretation Comments UA Protein (test code = UA Negative mg/dL Protein) [facility] AND [id number] 06:44:00 Test Item Value Reference Range Interpretation Comments UA Glucose (test code = UA Glucose) 500 mg/dL [facility] AND [id number] 06:44:00 Test Item Value Reference Range Interpretation Comments UA pH (test code = UA pH) 7.0 1 5.0-8.0 [facility] AND [id number] 06:44:00 Test Item Value Reference Range Interpretation Comments UA Bili (test code = Negative *NA*(12/18/18 UA Bili) 1:44 AM) [facility] AND [id number] 06:44:00 Test Item Value Reference Range Interpretation Comments UA Ketones (test code = UA Negative mg/dL Ketones) [facility] AND [id number] 06:44:00 Test Item Value Reference Range Interpretation Comments UA Color (test code = Colorless *NA*(12/18/18 UA Color) 1:44 AM) [facility] AND [id number] 06:44:00 Test Item Value Reference Range Interpretation Comments UA Turbidity (test code = Clear (12/18/18 1:44 UA Turbidity) AM) [facility] AND [id number] 06:44:00 Test Item Value Reference Range Interpretation Comments UA Spec Grav (test code = UA Spec 1.003 1 Grav) [facility]2019-08-03 06:44:00 Test Item Value Reference Range Interpretation Comments Lipase Lvl (test code = Lipase Lvl) 254 73-393 [facility]2019-08-03 06:44:00 Test Item Value Reference Range Interpretation Comments eGFR (test code = eGFR) 88 [facility]2019-08-03 06:44:00 Test Item Value Reference Range Interpretation Comments Bili Total (test code = Bili Total) 0.5 0.2-1.3 [facility]2019-08-03 06:44:00 Test Item Value Reference Range Interpretation Comments Albumin Lvl (test code = Albumin Lvl) 4.2 3.5-5.0 [facility]2019-08-03 06:44:00 Test Item Value Reference Range Interpretation Comments Total Protein (test code = Total 7.5 6.4-8.4 Protein) [facility]2019-08-03 06:44:00 Test Item Value Reference Range Interpretation Comments AST (test code = AST) 8 See_Comment [Auto mated message] The system which ge nerated this result transmit owen reference range : <=37. The reference range was not used to interpr et this result as fredi l/abnormal. [facility]2019-08-03 06:44:00 Test Item Value Reference Range Interpretation Comments ALT (test code = ALT) 19 See_Comment [Auto mated message] The system which ge nerated this result transmit owen reference range : <=65. The reference range was not used to interpr et this result as fredi l/abnormal. [facility]2019-08-03 06:44:00 Test Item Value Reference Range Interpretation Comments Alk Phos (test code = Alk Phos) 73 39-136 [facility]2019-08-03 06:44:00 Test Item Value Reference Range Interpretation Comments Sodium Lvl (test code = Sodium Lvl) 136 135-145 [facility]2019-08-03 06:44:00 Test Item Value Reference Range Interpretation Comments Chloride Lvl (test code = Chloride Lvl) 103 95-109 [facility]2019-08-03 06:44:00 Test Item Value Reference Range Interpretation Comments Potassium Lvl (test code = Potassium 3.8 3.5-5.1 Lvl) [facility]2019-08-03 06:44:00 Test Item Value Reference Range Interpretation Comments Calcium Lvl (test code = Calcium Lvl) 9.4 8.5-10.5 [facility]2019-08-03 06:44:00 Test Item Value Reference Range Interpretation Comments CO2 (test code = CO2) 24 24-32 [facility]2019-08-03 06:44:00 Test Item Value Reference Range Interpretation Comments Glucose Lvl (test code = Glucose Lvl) 328 70-99 [facility]2019-08-03 06:44:00 Test Item Value Reference Range Interpretation Comments Creatinine Lvl (test code = Creatinine 0.90 0.50-1.40 Lvl) [facility]2019-08-03 06:44:00 Test Item Value Reference Range Interpretation Comments BUN (test code = BUN) 5 7-22 [facility]2019-08-03 06:44:00 Test Item Value Reference Range Interpretation Comments B/C Ratio (test code = B/C Ratio) 6 1 6-25 [facility]2019-08-03 06:44:00 Test Item Value Reference Range Interpretation Comments AGAP (test code = AGAP) 12.8 10.0-20.0 [facility]2019-08-03 06:44:00 Test Item Value Reference Range Interpretation Comments Globulin (test code = Globulin) 3.3 2.7-4.2 [facility]2019-08-03 06:44:00 Test Item Value Reference Range Interpretation Comments A/G Ratio (test code = A/G Ratio) 1.3 1 0.7-1.6 [place] [id number] 06:44:00 Test Item Value Reference Range Interpretation Comments S Preg (test code = S Negative *NA*(12/18/18 Preg) 1:44 AM) [facility]IkfyolyDNBWPSANYG8952-20-46 06:44:00 Test Item Value Reference Range Interpretation Comments Eosinophils (test code = 7.3 See_Comment [A utomated message] The Eosinophils) system which ge nerated this result tra nsmitted reference range : <=4.0. The reference r jase was not used to int erpret this result as normal/abnormal . [facility] HospitalRgeosalVYEVRPOEBQ1540-73-84 06:44:00 Test Item Value Reference Range Interpretation Comments Monocytes (test code = Monocytes) 5.9 2.0-12.0 [facility] HospitalQcttxglYTGAZIIQAM4549-50-43 06:44:00 Test Item Value Reference Range Interpretation Comments Lymphocytes (test code = Lymphocytes) 38.4 20.0-40.0 [facility] HospitalElrlfqfDKYGYSDNWX9249-40-04 06:44:00 Test Item Value Reference Range Interpretation Comments Segs (test code = Segs) 47.6 45.0-75.0 [facility] HospitalBqhaplfMDXGMIKBCW4294-80-81 06:44:00 Test Item Value Reference Range Interpretation Comments Eosinophils # (test code 0.6 See_Comment [A utomated message] The = Eosinophils #) system whic h generated this result tra nsmitted reference range : <=0.5. The reference r jase was not used to int erpret this result as normal/abnormal . [facility] HospitalGjzushaQKJNORHJAA7995-87-10 06:44:00 Test Item Value Reference Range Interpretation Comments Monocytes # (test code 0.5 See_Comment [Aut omated message] The = Monocytes #) system which generated this result tra nsmitted reference range : <=0.8. The reference r jase was not used to int erpret this result as normal/abnormal . [facility] HospitalBipufpgDNLCHJMNLP8920-77-18 06:44:00 Test Item Value Reference Range Interpretation Comments Basophils (test code = 0.8 See_Comment [Aut omated message] The Basophils) system which ge nerated this result tra nsmitted reference range : <=1.0. The reference r jase was not used to int erpret this result as normal/abnormal . [facility] HospitalBeqlfqfQZGYIDUSHA4602-38-40 06:44:00 Test Item Value Reference Range Interpretation Comments Neutrophils # (test code = Neutrophils 4.0 1.5-8.1 #) [facility] HospitalLwxdbqgNMMWCOUPZD8181-93-45 06:44:00 Test Item Value Reference Range Interpretation Comments Lymphocytes # (test code = Lymphocytes 3.3 1.0-5.5 #) [facility] HospitalZeqmtbmWHXQZHAOCD6393-20-56 06:44:00 Test Item Value Reference Range Interpretation Comments Basophils # (test code 0.1 See_Comment [Aut omated message] The = Basophils #) system which generated this result tra nsmitted reference range : <=0.2. The reference r jase was not used to int erpret this result as normal/abnormal . [facility] HospitalUjkrypaFQYJMIFGON8892-77-30 06:44:00 Test Item Value Reference Range Interpretation Comments Hgb (test code = Hgb) 14.5 12.0-16.0 [facility] HospitalYratspjTQCVOOISYY9902-27-80 06:44:00 Test Item Value Reference Range Interpretation Comments RBC (test code = RBC) 4.20 4.20-5.40 [facility] HospitalSimaxmrJHYYCLGYUI3268-04-28 06:44:00 Test Item Value Reference Range Interpretation Comments Hct (test code = Hct) 41.2 36.0-48.0 [facility] HospitalMdpiuogJUXUSRMKMF4657-29-42 06:44:00 Test Item Value Reference Range Interpretation Comments WBC (test code = WBC) 8.5 3.7-10.4 [facility] HospitalEmushaxOTEVKNAFSF8473-89-04 06:44:00 Test Item Value Reference Range Interpretation Comments RDW (test code = RDW) 12.8 11.5-14.5 [facility] HospitalStmtxixVVMYHOZOAP7267-99-75 06:44:00 Test Item Value Reference Range Interpretation Comments Platelet (test code = Platelet) 303 133-450 [facility] HospitalBpzcnasRNPRTJXQKY9559-48-96 06:44:00 Test Item Value Reference Range Interpretation Comments MPV (test code = MPV) 8.5 7.4-10.4 [facility] HospitalNrmldrsIAPNKWWFTS3083-21-94 06:44:00 Test Item Value Reference Range Interpretation Comments MCHC (test code = MCHC) 35.2 32.0-36.0 [facility] HospitalPzlzgxpNTKBBEVBOL1443-95-28 06:44:00 Test Item Value Reference Range Interpretation Comments MCH (test code = MCH) 34.5 pg 27.0-31.0 [facility] HospitalOdqthfcCHQOHZTMVB4925-05-37 06:44:00 Test Item Value Reference Range Interpretation Comments MCV (test code = MCV) 98.1 80.0-98.0 [facility] HospitalKkkmzqxNEKWIJQVWV2083-00-17 06:44:00 Test Item Value Reference Range Interpretation Comments PT (test code = PT) 12.8 s 12.0-14.7 [facility] HospitalFiavjzzPIKTFDRRRN2478-46-39 06:44:00 Test Item Value Reference Range Interpretation Comments INR (test code = INR) 0.98 1 0.85-1.17 [facility] HospitalNiogurtFCHCNJBJRH6230-91-05 06:44:00 Test Item Value Reference Range Interpretation Comments PTT (test code = PTT) 25.3 s 22.9-35.8 [facility] AND [id number] 06:44:00 Test Item Value Reference Range Interpretation Comments UA Leuk Est (test Negative (12/18/18 1:44 code = UA Leuk Est) AM) [facility] AND [id number] 06:44:00 Test Item Value Reference Range Interpretation Comments UA Sq Epi (test code = UA Sq Occasional /LPF Epi) [facility] AND [id number] 06:44:00 Test Item Value Reference Range Interpretation Comments UA Blood (test code = Negative (12/18/18 1:44 UA Blood) AM) [facility] AND [id number] 06:44:00 Test Item Value Reference Range Interpretation Comments UA Nitrite (test code Negative (12/18/18 1:44 = UA Nitrite) AM) [facility] AND [id number] 06:44:00 Test Item Value Reference Range Interpretation Comments UA WBC (test code = no gt See_Comment [Automa owen message] The UA WBC) system which ge nerated this result transmit owen reference range : <=5. The reference range was not used to interpr et this result as fredi l/abnormal. [facility] AND [id number] 06:44:00 Test Item Value Reference Range Interpretation Comments UA Urobilinogen (test code = UA <=1.0 mg/dL 0.1-1.0 Urobilinogen) [facility] AND [id number] 06:44:00 Test Item Value Reference Range Interpretation Comments UA Protein (test code = UA Negative mg/dL Protein) [facility] AND [id number] 06:44:00 Test Item Value Reference Range Interpretation Comments UA Glucose (test code = UA Glucose) 500 mg/dL [facility] AND [id number] 06:44:00 Test Item Value Reference Range Interpretation Comments UA pH (test code = UA pH) 7.0 1 5.0-8.0 [facility] AND [id number] 06:44:00 Test Item Value Reference Range Interpretation Comments UA Bili (test code = Negative *NA*(12/18/18 UA Bili) 1:44 AM) [facility] AND [id number] 06:44:00 Test Item Value Reference Range Interpretation Comments UA Ketones (test code = UA Negative mg/dL Ketones) [facility] AND [id number] 06:44:00 Test Item Value Reference Range Interpretation Comments UA Color (test code = Colorless *NA*(12/18/18 UA Color) 1:44 AM) [facility] AND [id number] 06:44:00 Test Item Value Reference Range Interpretation Comments UA Turbidity (test code = Clear (12/18/18 1:44 UA Turbidity) AM) [facility] AND [id number] 06:44:00 Test Item Value Reference Range Interpretation Comments UA Spec Grav (test code = UA Spec 1.003 1 Grav) [facility] [id number] 07:25:00 Test Item Value Reference Range Interpretation Comments Total CK (test code = Total CK) 70 12-191 [facility] [id number] 07:25:00 Test Item Value Reference Range Interpretation Comments CK MB (test code = CK MB) no gt 0.5-3.6 [facility] [id number] 07:25:00 Test Item Value Reference Range Interpretation Comments Troponin-I (test code no gt See_Comment [Auto mated message] The = Troponin-I) system which g enerated this result transmit owen reference range : <=0.40. The reference r jase was not used to interpr et this result as fredi l/abnormal. [facility]2019-05-28 07:25:00 Test Item Value Reference Range Interpretation Comments Magnesium Lvl (test code = Magnesium 2.2 1.8-2.4 Lvl) [place] 413509-05-28 07:25:00 Test Item Value Reference Range Interpretation Comments Ketone Quantitative (test code = Ketone 0.32 Quantitative) [place] 413509-05-28 07:25:00 Test Item Value Reference Range Interpretation Comments B/C Ratio (test code = B/C Ratio) 10 1 6-25 [place] 413509-05-28 07:25:00 Test Item Value Reference Range Interpretation Comments Total Protein (test code = Total 7.2 6.4-8.4 Protein) [place] 413509-05-28 07:25:00 Test Item Value Reference Range Interpretation Comments eGFR (test code = eGFR) 81 [facility]2019-05-28 07:25:00 Test Item Value Reference Range Interpretation Comments A/G Ratio (test code = A/G Ratio) 1.1 1 0.7-1.6 [place] 413509-05-28 07:25:00 Test Item Value Reference Range Interpretation Comments Globulin (test code = Globulin) 3.4 2.7-4.2 [facility]2019-05-28 07:25:00 Test Item Value Reference Range Interpretation Comments Albumin Lvl (test code = Albumin Lvl) 3.8 3.5-5.0 [facility]2019-05-28 07:25:00 Test Item Value Reference Range Interpretation Comments Alk Phos (test code = Alk Phos) 91 39-136 [facility]2019-05-28 07:25:00 Test Item Value Reference Range Interpretation Comments ALT (test code = ALT) 21 See_Comment [Auto mated message] The system which ge nerated this result transmit owen reference range : <=65. The reference range was not used to interpr et this result as fredi l/abnormal. [facility]2019-05-28 07:25:00 Test Item Value Reference Range Interpretation Comments Bili Total (test code = Bili Total) 0.4 0.2-1.3 [facility]2019-05-28 07:25:00 Test Item Value Reference Range Interpretation Comments AST (test code = AST) 12 See_Comment [Auto mated message] The system which ge nerated this result transmit owen reference range : <=37. The reference range was not used to interpr et this result as fredi l/abnormal. [facility]2019-05-28 07:25:00 Test Item Value Reference Range Interpretation Comments Glucose Lvl (test code = Glucose Lvl) 557 70-99 [facility]2019-05-28 07:25:00 Test Item Value Reference Range Interpretation Comments Chloride Lvl (test code = Chloride Lvl) 100 95-109 [facility]2019-05-28 07:25:00 Test Item Value Reference Range Interpretation Comments AGAP (test code = AGAP) 14.7 10.0-20.0 [facility]2019-05-28 07:25:00 Test Item Value Reference Range Interpretation Comments Calcium Lvl (test code = Calcium Lvl) 8.9 8.5-10.5 [facility]2019-05-28 07:25:00 Test Item Value Reference Range Interpretation Comments CO2 (test code = CO2) 21 24-32 [facility]2019-05-28 07:25:00 Test Item Value Reference Range Interpretation Comments Sodium Lvl (test code = Sodium Lvl) 131 135-145 [facility]2019-05-28 07:25:00 Test Item Value Reference Range Interpretation Comments BUN (test code = BUN) 10 7-22 [facility]2019-05-28 07:25:00 Test Item Value Reference Range Interpretation Comments Creatinine Lvl (test code = Creatinine 0.96 0.50-1.40 Lvl) [facility]2019-05-28 07:25:00 Test Item Value Reference Range Interpretation Comments Potassium Lvl (test code = Potassium 4.7 3.5-5.1 Lvl) [facility]foiAIBSDRHFWEIKP7050-21-09 07:25:00 Test Item Value Reference Range Interpretation Comments S Preg (test code = S Negative *NA*(5/28/19 Preg) 2:25 AM) [facility] HospitalWhdfxqbAXIJIACWVL7287-39-18 07:25:00 Test Item Value Reference Range Interpretation Comments MPV (test code = MPV) 8.9 7.4-10.4 [facility] HospitalVpohnzpQQFMLXVYQO8643-61-46 07:25:00 Test Item Value Reference Range Interpretation Comments RDW (test code = RDW) 12.4 11.5-14.5 [facility] HospitalFdclbmxIDPVRQZSHI0842-30-48 07:25:00 Test Item Value Reference Range Interpretation Comments Platelet (test code = Platelet) 270 133-450 [facility] HospitalOjyzhjpZPOXDHERLK2553-63-45 07:25:00 Test Item Value Reference Range Interpretation Comments MCHC (test code = MCHC) 33.6 32.0-36.0 [facility] HospitalXxtazybQBMHUQRDRN6799-98-41 07:25:00 Test Item Value Reference Range Interpretation Comments MCH (test code = MCH) 32.9 pg 27.0-31.0 [facility] HospitalNqcwsxbBJQGYAPEGT2010-22-87 07:25:00 Test Item Value Reference Range Interpretation Comments Hct (test code = Hct) 40.1 36.0-48.0 [facility] HospitalJmopmjiZXDFQXZHKC3418-28-33 07:25:00 Test Item Value Reference Range Interpretation Comments MCV (test code = MCV) 97.8 80.0-98.0 [facility] HospitalDbfalrqAKEHCEPNFL1328-42-15 07:25:00 Test Item Value Reference Range Interpretation Comments Hgb (test code = Hgb) 13.5 12.0-16.0 [facility] HospitalYjqzjslOBHHVJRYOE1520-81-99 07:25:00 Test Item Value Reference Range Interpretation Comments WBC (test code = WBC) 6.4 3.7-10.4 [facility] HospitalFggxxxxZRWWEGDAOA6194-16-84 07:25:00 Test Item Value Reference Range Interpretation Comments RBC (test code = RBC) 4.10 4.20-5.40 [facility] HospitalUungwvpMSPHGEAMWW4272-79-27 07:25:00 Test Item Value Reference Range Interpretation Comments Monocytes # (test code 0.4 See_Comment [Aut omated message] The = Monocytes #) system which generated this result tra nsmitted reference range : <=0.8. The reference r jase was not used to int erpret this result as normal/abnormal . [facility] HospitalAvyrwqxJTZPBZXLDM8577-47-30 07:25:00 Test Item Value Reference Range Interpretation Comments Eosinophils # (test code 0.5 See_Comment [A utomated message] The = Eosinophils #) system whic h generated this result tra nsmitted reference range : <=0.5. The reference r jase was not used to int erpret this result as normal/abnormal . [facility] HospitalAjtnwsyLBENHZHTOD8436-01-38 07:25:00 Test Item Value Reference Range Interpretation Comments Lymphocytes # (test code = Lymphocytes 2.4 1.0-5.5 #) [facility] HospitalXufsisqJGNESPQHCP7395-66-56 07:25:00 Test Item Value Reference Range Interpretation Comments Eosinophils (test code = 8.0 See_Comment [A utomated message] The Eosinophils) system which ge nerated this result tra nsmitted reference range : <=4.0. The reference r jase was not used to int erpret this result as normal/abnormal . [facility] HospitalWiloshdJJUOXDEAMS8327-47-04 07:25:00 Test Item Value Reference Range Interpretation Comments Neutrophils # (test code = Neutrophils 3.0 1.5-8.1 #) [facility] HospitalLvxztiqYPFKYCYZXW6054-20-27 07:25:00 Test Item Value Reference Range Interpretation Comments Basophils (test code = 0.5 See_Comment [Aut omated message] The Basophils) system which ge nerated this result tra nsmitted reference range : <=1.0. The reference r jase was not used to int erpret this result as normal/abnormal . [facility] HospitalDqxsghfJNSHKBGZRC4292-61-08 07:25:00 Test Item Value Reference Range Interpretation Comments Monocytes (test code = Monocytes) 5.9 2.0-12.0 [facility] HospitalLntwycaNPIBMXNHNQ1066-06-32 07:25:00 Test Item Value Reference Range Interpretation Comments Segs (test code = Segs) 47.2 45.0-75.0 [facility] HospitalEvvmjpjTXVQTXNNLC6545-71-95 07:25:00 Test Item Value Reference Range Interpretation [...] interpr et this result as fredi l/abnormal. [facility] AND [id number] 07:25:00 Test Item Value Reference Range Interpretation Comments UA RBC (test code = 1 See_Comment [Automa owen message] The UA RBC) system which ge nerated this result transmit owen reference range : <=2. The reference range was not used to interpr et this result as fredi l/abnormal. [facility] AND [id number] 07:25:00 Test Item Value Reference Range Interpretation Comments UA Nitrite (test code Negative (10/12/18 2:25 = UA Nitrite) AM) [facility] AND [id number] 07:25:00 Test Item Value Reference Range Interpretation Comments UA Urobilinogen (test code = UA <=1.0 mg/dL 0.1-1.0 Urobilinogen) [facility] AND [id number] 07:25:00 Test Item Value Reference Range Interpretation Comments UA Sq Epi (test code = UA Sq Occasional /LPF Epi) [facility] AND [id number] 07:25:00 Test Item Value Reference Range Interpretation Comments UA Leuk Est (test Negative (10/12/18 2:25 code = UA Leuk Est) AM) [facility] AND [id number] 07:25:00 Test Item Value Reference Range Interpretation Comments UA Protein (test code Negative (10/12/18 2:25 = UA Protein) AM) [facility] AND [id number] 07:25:00 Test Item Value Reference Range Interpretation Comments UA Ketones (test code Negative *NA*(10/12/18 = UA Ketones) 2:25 AM) [facility] AND [id number] 07:25:00 Test Item Value Reference Range Interpretation Comments UA Glucose (test code = UA Glucose) 500 mg/dL [facility] AND [id number] 07:25:00 Test Item Value Reference Range Interpretation Comments UA Blood (test code = Negative (10/12/18 2:25 UA Blood) AM) [facility] AND [id number] 07:25:00 Test Item Value Reference Range Interpretation Comments UA Bili (test code = Negative *NA*(10/12/18 UA Bili) 2:25 AM) [facility] [id number] 07:25:00 Test Item Value Reference Range Interpretation Comments UA Color (test code = Colorless *NA*(10/12/18 UA Color) 2:25 AM) [facility] [id number] 07:25:00 Test Item Value Reference Range Interpretation Comments UA Spec Grav (test code = UA Spec 1.021 1 Grav) [facility] [id number] 07:25:00 Test Item Value Reference Range Interpretation Comments UA Turbidity (test code = Clear (10/12/18 2:25 UA Turbidity) AM) [facility] [id number] 07:25:00 Test Item Value Reference Range Interpretation Comments UA pH (test code = UA pH) 7.0 1 5.0-8.0 [facility] [id number] 07:25:00 Test Item Value Reference Range Interpretation Comments Total CK (test code = Total CK) 70 12-191 [facility] [id number] 07:25:00 Test Item Value Reference Range Interpretation Comments CK MB (test code = CK MB) no gt 0.5-3.6 [facility] [id number] 07:25:00 Test Item Value Reference Range Interpretation Comments Troponin-I (test code no gt See_Comment [Auto mated message] The = Troponin-I) system which g enerated this result transmit owen reference range : <=0.40. The reference r jase was not used to interpr et this result as fredi l/abnormal. [facility] [employer] [employer] [id number] 07:25:00 Test Item Value Reference Range Interpretation Comments Magnesium Lvl (test code = Magnesium 2.2 1.8-2.4 Lvl) [facility] [employer] [employer] [id number] 07:25:00 Test Item Value Reference Range Interpretation Comments Ketone Quantitative (test code = Ketone 0.32 Quantitative) [facility] [employer] [id number] 07:25:00 Test Item Value Reference Range Interpretation Comments B/C Ratio (test code = B/C Ratio) 10 1 6-25 [facility] [employer] [id number] 07:25:00 Test Item Value Reference Range Interpretation Comments Total Protein (test code = Total 7.2 6.4-8.4 Protein) [facility]2019-05-28 07:25:00 Test Item Value Reference Range Interpretation Comments eGFR (test code = eGFR) 81 [facility]2019-05-28 07:25:00 Test Item Value Reference Range Interpretation Comments A/G Ratio (test code = A/G Ratio) 1.1 1 0.7-1.6 [place] [id number] 07:25:00 Test Item Value Reference Range Interpretation Comments Globulin (test code = Globulin) 3.4 2.7-4.2 [place] 413509-05-28 07:25:00 Test Item Value Reference Range Interpretation Comments Albumin Lvl (test code = Albumin Lvl) 3.8 3.5-5.0 [place] 413509-05-28 07:25:00 Test Item Value Reference Range Interpretation Comments Alk Phos (test code = Alk Phos) 91 39-136 [facility]2019-05-28 07:25:00 Test Item Value Reference Range Interpretation Comments ALT (test code = ALT) 21 See_Comment [Auto mated message] The system which ge nerated this result transmit owen reference range : <=65. The reference range was not used to interpr et this result as fredi l/abnormal. [facility]2019-05-28 07:25:00 Test Item Value Reference Range Interpretation Comments Bili Total (test code = Bili Total) 0.4 0.2-1.3 [facility]2019-05-28 07:25:00 Test Item Value Reference Range Interpretation Comments AST (test code = AST) 12 See_Comment [Auto mated message] The system which ge nerated this result transmit owen reference range : <=37. The reference range was not used to interpr et this result as fredi l/abnormal. [facility]2019-05-28 07:25:00 Test Item Value Reference Range Interpretation Comments Glucose Lvl (test code = Glucose Lvl) 557 70-99 [facility]2019-05-28 07:25:00 Test Item Value Reference Range Interpretation Comments Chloride Lvl (test code = Chloride Lvl) 100 95-109 [facility]2019-05-28 07:25:00 Test Item Value Reference Range Interpretation Comments AGAP (test code = AGAP) 14.7 10.0-20.0 [facility]2019-05-28 07:25:00 Test Item Value Reference Range Interpretation Comments Calcium Lvl (test code = Calcium Lvl) 8.9 8.5-10.5 [facility]2019-05-28 07:25:00 Test Item Value Reference Range Interpretation Comments CO2 (test code = CO2) - [facility]2019-05-28 07:25:00 Test Item Value Reference Range Interpretation Comments Sodium Lvl (test code = Sodium Lvl) 131 135-145 [facility]2019-05-28 07:25:00 Test Item Value Reference Range Interpretation Comments BUN (test code = BUN) 10 - [facility]2019-05-28 07:25:00 Test Item Value Reference Range Interpretation Comments Creatinine Lvl (test code = Creatinine 0.96 0.50-1.40 Lvl) [facility]2019-05-28 07:25:00 Test Item Value Reference Range Interpretation Comments Potassium Lvl (test code = Potassium 4.7 3.5-5.1 Lvl) [id number] 07:25:00 Test Item Value Reference Range Interpretation Comments S Preg (test code = S Negative *NA*(10/12/18 Preg) 2:25 AM) [facility] HospitalDrupbjdFPNGVGHSSG3191-94-66 07:25:00 Test Item Value Reference Range Interpretation Comments MPV (test code = MPV) 8.9 7.4-10.4 [facility] HospitalEdxmbceBQANLSDNDM7165-77-39 07:25:00 Test Item Value Reference Range Interpretation Comments RDW (test code = RDW) 12.4 11.5-14.5 [facility] HospitalBhvzndnJPDADTLRPT3911-90-39 07:25:00 Test Item Value Reference Range Interpretation Comments Platelet (test code = Platelet) 270 133-450 [facility] HospitalDlneyewUVBEHJMHZD0833-82-83 07:25:00 Test Item Value Reference Range Interpretation Comments MCHC (test code = MCHC) 33.6 32.0-36.0 [facility] HospitalWlzfvvcJIKJUJFFRC5044-27-70 07:25:00 Test Item Value Reference Range Interpretation Comments MCH (test code = MCH) 32.9 pg 27.0-31.0 [facility] HospitalCzgifggAXYTSGGRBX0601-35-50 07:25:00 Test Item Value Reference Range Interpretation Comments Hct (test code = Hct) 40.1 36.0-48.0 [facility] HospitalDvduvhgMVNIVTHTMV9121-37-68 07:25:00 Test Item Value Reference Range Interpretation Comments MCV (test code = MCV) 97.8 80.0-98.0 [facility] HospitalVizbnuhCCKBYZHCZU7184-88-82 07:25:00 Test Item Value Reference Range Interpretation Comments Hgb (test code = Hgb) 13.5 12.0-16.0 [facility] HospitalJwgfovxRKSTVKIBUQ9108-73-78 07:25:00 Test Item Value Reference Range Interpretation Comments WBC (test code = WBC) 6.4 3.7-10.4 [facility] HospitalLashjpeWHUMBNDYZC0014-33-29 07:25:00 Test Item Value Reference Range Interpretation Comments RBC (test code = RBC) 4.10 4.20-5.40 [facility] HospitalVlthvgvGHTPEDRUFX1174-78-19 07:25:00 Test Item Value Reference Range Interpretation Comments Monocytes # (test code 0.4 See_Comment [Aut omated message] The = Monocytes #) system which generated this result tra nsmitted reference range : <=0.8. The reference r ajse was not used to int erpret this result as normal/abnormal . [facility] HospitalPzkhpcxEDGYKKGIVT0386-43-34 07:25:00 Test Item Value Reference Range Interpretation Comments Eosinophils # (test code 0.5 See_Comment [A utomated message] The = Eosinophils #) system ic h generated this result tra nsmitted reference range : <=0.5. The reference r jase was not used to int erpret this result as normal/abnormal . [facility] HospitalQjjguzlTFRXUIALSE2405-58-67 07:25:00 Test Item Value Reference Range Interpretation Comments Lymphocytes # (test code = Lymphocytes 2.4 1.0-5.5 #) [facility] HospitalVyojjkyQJBWHJXRKW0693-89-04 07:25:00 Test Item Value Reference Range Interpretation Comments Eosinophils (test code = 8.0 See_Comment [A utomated message] The Eosinophils) system which ge nerated this result tra nsmitted reference range : <=4.0. The reference r jase was not used to int erpret this result as normal/abnormal . [facility] HospitalDiluyotJQECMLRDGI8784-93-83 07:25:00 Test Item Value Reference Range Interpretation Comments Neutrophils # (test code = Neutrophils 3.0 1.5-8.1 #) [facility] HospitalSguptqjFQHYGUMMIG3155-96-17 07:25:00 Test Item Value Reference Range Interpretation Comments Basophils (test code = 0.5 See_Comment [Aut omated message] The Basophils) system which ge nerated this result tra nsmitted reference range : <=1.0. The reference r jase was not used to int erpret this result as normal/abnormal . [facility] HospitalItvvocqLEJXTFXAFC5931-79-81 07:25:00 Test Item Value Reference Range Interpretation Comments Monocytes (test code = Monocytes) 5.9 2.0-12.0 [facility] HospitalStcwwqvEYLGSSWCFH4537-68-90 07:25:00 Test Item Value Reference Range Interpretation Comments Segs (test code = Segs) 47.2 45.0-75.0 [facility] HospitalNbrzqdoVAESBUEWKQ0310-63-52 07:25:00 Test Item Value Reference Range Interpretation [...] interpr et this result as fredi l/abnormal. [facility]2019-05-28 07:25:00 Test Item Value Reference Range Interpretation Comments UA RBC (test code = 1 See_Comment [Automa owen message] The UA RBC) system which ge nerated this result transmit owen reference range : <=2. The reference range was not used to interpr et this result as fredi l/abnormal. [facility]2019-05-28 07:25:00 Test Item Value Reference Range Interpretation Comments UA Nitrite (test code Negative (10/12/18 2:25 = UA Nitrite) AM) [facility] AND [id number] 07:25:00 Test Item Value Reference Range Interpretation Comments UA Urobilinogen (test code = UA <=1.0 mg/dL 0.1-1.0 Urobilinogen) [facility] AND [id number] 07:25:00 Test Item Value Reference Range Interpretation Comments UA Sq Epi (test code = UA Sq Occasional /LPF Epi) [facility] AND [id number] 07:25:00 Test Item Value Reference Range Interpretation Comments UA Leuk Est (test Negative (10/12/18 2:25 code = UA Leuk Est) AM) [facility] AND [id number] 07:25:00 Test Item Value Reference Range Interpretation Comments UA Protein (test code Negative (10/12/18 2:25 = UA Protein) AM) [facility] AND [id number] 07:25:00 Test Item Value Reference Range Interpretation Comments UA Ketones (test code Negative *NA*(10/12/18 = UA Ketones) 2:25 AM) [facility] AND [id number] 07:25:00 Test Item Value Reference Range Interpretation Comments UA Glucose (test code = UA Glucose) 500 mg/dL [facility] AND [id number] 07:25:00 Test Item Value Reference Range Interpretation Comments UA Blood (test code = Negative (10/12/18 2:25 UA Blood) AM) [facility] AND [id number] 07:25:00 Test Item Value Reference Range Interpretation Comments UA Bili (test code = Negative *NA*(10/12/18 UA Bili) 2:25 AM) [facility] AND [id number] 07:25:00 Test Item Value Reference Range Interpretation Comments UA Color (test code = Colorless *NA*(10/12/18 UA Color) 2:25 AM) [facility] AND [id number] 07:25:00 Test Item Value Reference Range Interpretation Comments UA Spec Grav (test code = UA Spec 1.021 1 Grav) [facility] AND [id number] 07:25:00 Test Item Value Reference Range Interpretation Comments UA Turbidity (test code = Clear (10/12/18 2:25 UA Turbidity) AM) [facility] AND [id number] 07:25:00 Test Item Value Reference Range Interpretation Comments UA pH (test code = UA pH) 7.0 1 5.0-8.0 [facility]2019-05-28 07:25:00 Test Item Value Reference Range Interpretation Comments Total CK (test code = Total CK) 70 12-191 [facility]2019-05-28 07:25:00 Test Item Value Reference Range Interpretation Comments CK MB (test code = CK MB) no gt 0.5-3.6 [facility]2019-05-28 07:25:00 Test Item Value Reference Range Interpretation Comments Troponin-I (test code no gt See_Comment [Auto mated message] The = Troponin-I) system which g enerated this result transmit owen reference range : <=0.40. The reference r jase was not used to interpr et this result as fredi l/abnormal. [facility]2019-05-28 07:25:00 Test Item Value Reference Range Interpretation Comments Magnesium Lvl (test code = Magnesium 2.2 1.8-2.4 Lvl) [facility]2019-05-28 07:25:00 Test Item Value Reference Range Interpretation Comments Ketone Quantitative (test code = Ketone 0.32 Quantitative) [facility]2019-05-28 07:25:00 Test Item Value Reference Range Interpretation Comments B/C Ratio (test code = B/C Ratio) 10 1 6-25 [facility]2019-05-28 07:25:00 Test Item Value Reference Range Interpretation Comments Total Protein (test code = Total 7.2 6.4-8.4 Protein) [facility]2019-05-28 07:25:00 Test Item Value Reference Range Interpretation Comments eGFR (test code = eGFR) 81 [facility]2019-05-28 07:25:00 Test Item Value Reference Range Interpretation Comments A/G Ratio (test code = A/G Ratio) 1.1 1 0.7-1.6 [facility]2019-05-28 07:25:00 Test Item Value Reference Range Interpretation Comments Globulin (test code = Globulin) 3.4 2.7-4.2 [facility]2019-05-28 07:25:00 Test Item Value Reference Range Interpretation Comments Albumin Lvl (test code = Albumin Lvl) 3.8 3.5-5.0 [facility]2019-05-28 07:25:00 Test Item Value Reference Range Interpretation Comments Alk Phos (test code = Alk Phos) 91 39-136 [facility]2019-05-28 07:25:00 Test Item Value Reference Range Interpretation Comments ALT (test code = ALT) 21 See_Comment [Auto mated message] The system which ge nerated this result transmit owen reference range : <=65. The reference range was not used to interpr et this result as fredi l/abnormal. [facility]2019-05-28 07:25:00 Test Item Value Reference Range Interpretation Comments Bili Total (test code = Bili Total) 0.4 0.2-1.3 [facility]2019-05-28 07:25:00 Test Item Value Reference Range Interpretation Comments AST (test code = AST) 12 See_Comment [Auto mated message] The system which ge nerated this result transmit owen reference range : <=37. The reference range was not used to interpr et this result as fredi l/abnormal. [facility]2019-05-28 07:25:00 Test Item Value Reference Range Interpretation Comments Glucose Lvl (test code = Glucose Lvl) 557 70-99 [facility]2019-05-28 07:25:00 Test Item Value Reference Range Interpretation Comments Chloride Lvl (test code = Chloride Lvl) 100 95-109 [facility]2019-05-28 07:25:00 Test Item Value Reference Range Interpretation Comments AGAP (test code = AGAP) 14.7 10.0-20.0 [facility]2019-05-28 07:25:00 Test Item Value Reference Range Interpretation Comments Calcium Lvl (test code = Calcium Lvl) 8.9 8.5-10.5 [facility]2019-05-28 07:25:00 Test Item Value Reference Range Interpretation Comments CO2 (test code = CO2) 21 24-32 [facility]2019-05-28 07:25:00 Test Item Value Reference Range Interpretation Comments Sodium Lvl (test code = Sodium Lvl) 131 135-145 [facility]2019-05-28 07:25:00 Test Item Value Reference Range Interpretation Comments BUN (test code = BUN) 10 7-22 [facility]2019-05-28 07:25:00 Test Item Value Reference Range Interpretation Comments Creatinine Lvl (test code = Creatinine 0.96 0.50-1.40 Lvl) [facility] [id number] 07:25:00 Test Item Value Reference Range Interpretation Comments Potassium Lvl (test code = Potassium 4.7 3.5-5.1 Lvl) [facility]czhpcjDRUXXVRGATZZL4132-11-66 07:25:00 Test Item Value Reference Range Interpretation Comments S Preg (test code = S Negative *NA*(10/12/18 Preg) 2:25 AM) [facility] HospitalKdwifutJODRWLIMHZ8297-31-58 07:25:00 Test Item Value Reference Range Interpretation Comments MPV (test code = MPV) 8.9 7.4-10.4 [facility] HospitalUvadpnwAZWICBRSTI8732-14-12 07:25:00 Test Item Value Reference Range Interpretation Comments RDW (test code = RDW) 12.4 11.5-14.5 [facility] HospitalWtprrulJMDPHQDSFV1039-49-08 07:25:00 Test Item Value Reference Range Interpretation Comments Platelet (test code = Platelet) 270 133-450 [facility] HospitalQicrpteHJGJERPOYM9258-18-80 07:25:00 Test Item Value Reference Range Interpretation Comments MCHC (test code = MCHC) 33.6 32.0-36.0 [facility] HospitalQxogoiaVOUHGZCVZT4014-23-29 07:25:00 Test Item Value Reference Range Interpretation Comments MCH (test code = MCH) 32.9 pg 27.0-31.0 [facility] HospitalSurdawcOLNQSIJJBO8980-79-59 07:25:00 Test Item Value Reference Range Interpretation Comments Hct (test code = Hct) 40.1 36.0-48.0 [facility] HospitalDcoqcuyNPXCQXXRAN5413-46-77 07:25:00 Test Item Value Reference Range Interpretation Comments MCV (test code = MCV) 97.8 80.0-98.0 [facility] HospitalNqxtswlUYXTRXOPUY0991-19-75 07:25:00 Test Item Value Reference Range Interpretation Comments Hgb (test code = Hgb) 13.5 12.0-16.0 [facility] HospitalBxsjbrqVZQREVXUPQ5908-54-16 07:25:00 Test Item Value Reference Range Interpretation Comments WBC (test code = WBC) 6.4 3.7-10.4 [facility] HospitalIadawydDWYVFCIGKM8588-99-29 07:25:00 Test Item Value Reference Range Interpretation Comments RBC (test code = RBC) 4.10 4.20-5.40 [facility] HospitalQrccpsdGRTEIFFCLW8080-80-91 07:25:00 Test Item Value Reference Range Interpretation Comments Monocytes # (test code 0.4 See_Comment [Aut omated message] The = Monocytes #) system which generated this result tra nsmitted reference range : <=0.8. The reference r jase was not used to int erpret this result as normal/abnormal . [facility] HospitalKhktweoWDMPRHXTIX2222-59-64 07:25:00 Test Item Value Reference Range Interpretation Comments Eosinophils # (test code 0.5 See_Comment [A utomated message] The = Eosinophils #) system whic h generated this result tra nsmitted reference range : <=0.5. The reference r jase was not used to int erpret this result as normal/abnormal . [facility] HospitalSlbulytRGLWKFZFQH8693-35-86 07:25:00 Test Item Value Reference Range Interpretation Comments Lymphocytes # (test code = Lymphocytes 2.4 1.0-5.5 #) [facility] HospitalLtuwhtuCNATWCBSJC8863-46-75 07:25:00 Test Item Value Reference Range Interpretation Comments Eosinophils (test code = 8.0 See_Comment [A utomated message] The Eosinophils) system which ge nerated this result tra nsmitted reference range : <=4.0. The reference r jase was not used to int erpret this result as normal/abnormal . [facility] HospitalAbkezdfWUUCGYHMYJ0402-83-85 07:25:00 Test Item Value Reference Range Interpretation Comments Neutrophils # (test code = Neutrophils 3.0 1.5-8.1 #) [facility] HospitalTagjukeFIURCYYQXO9106-95-26 07:25:00 Test Item Value Reference Range Interpretation Comments Basophils (test code = 0.5 See_Comment [Aut omated message] The Basophils) system which ge nerated this result tra nsmitted reference range : <=1.0. The reference r jase was not used to int erpret this result as normal/abnormal . [facility] HospitalKirbyvpPQMJRNWKVR8618-37-76 07:25:00 Test Item Value Reference Range Interpretation Comments Monocytes (test code = Monocytes) 5.9 2.0-12.0 [facility] HospitalGvlkhviKAGDDJLYQR1944-17-64 07:25:00 Test Item Value Reference Range Interpretation Comments Segs (test code = Segs) 47.2 45.0-75.0 [facility] HospitalNtkialmRQXISNQINJ1162-02-00 07:25:00 Test Item Value Reference Range Interpretation Comments Lymphocytes (test code = Lymphocytes) 38.4 20.0-40.0 [facility] AND [id number] 07:25:00 Test Item Value Reference Range Interpretation Comments UA WBC (test code = 4 See_Comment [Automa owen message] The UA WBC) system which ge nerated this result transmit owen reference range : <=5. The reference range was not used to interpr et this result as fredi l/abnormal. [facility] AND [id number] 07:25:00 Test Item Value Reference Range Interpretation Comments UA RBC (test code = 1 See_Comment [Automa owen message] The UA RBC) system which ge nerated this result transmit owen reference range : <=2. The reference range was not used to interpr et this result as fredi l/abnormal. [facility] AND [id number] 07:25:00 Test Item Value Reference Range Interpretation Comments UA Nitrite (test code Negative (10/12/18 2:25 = UA Nitrite) AM) [facility] AND [id number] 07:25:00 Test Item Value Reference Range Interpretation Comments UA Urobilinogen (test code = UA <=1.0 mg/dL 0.1-1.0 Urobilinogen) [facility] AND [id number] 07:25:00 Test Item Value Reference Range Interpretation Comments UA Sq Epi (test code = UA Sq Occasional /LPF Epi) [facility] AND [id number] 07:25:00 Test Item Value Reference Range Interpretation Comments UA Leuk Est (test Negative (10/12/18 2:25 code = UA Leuk Est) AM) [facility] AND [id number] 07:25:00 Test Item Value Reference Range Interpretation Comments UA Protein (test code Negative (10/12/18 2:25 = UA Protein) AM) [facility] AND [id number] 07:25:00 Test Item Value Reference Range Interpretation Comments UA Ketones (test code Negative *NA*(10/12/18 = UA Ketones) 2:25 AM) [facility] AND [id number] 07:25:00 Test Item Value Reference Range Interpretation Comments UA Glucose (test code = UA Glucose) 500 mg/dL [facility] AND [id number] 07:25:00 Test Item Value Reference Range Interpretation Comments UA Blood (test code = Negative (10/12/18 2:25 UA Blood) AM) [facility] AND [id number] 07:25:00 Test Item Value Reference Range Interpretation Comments UA Bili (test code = Negative *NA*(10/12/18 UA Bili) 2:25 AM) [facility] [id number] 07:25:00 Test Item Value Reference Range Interpretation Comments UA Color (test code = Colorless *NA*(10/12/18 UA Color) 2:25 AM) [facility] AND [id number] 07:25:00 Test Item Value Reference Range Interpretation Comments UA Spec Grav (test code = UA Spec 1.021 1 Grav) [facility] AND [id number] 07:25:00 Test Item Value Reference Range Interpretation Comments UA Turbidity (test code = Clear (10/12/18 2:25 UA Turbidity) AM) [facility] AND [id number] 07:25:00 Test Item Value Reference Range Interpretation Comments UA pH (test code = UA pH) 7.0 1 5.0-8.0 [facility] KliuhbwOKTHJE8250-87-26 11:44:00 Test Item Value Reference Range Interpretation Comments GLUBED (test code = GLUBED) 58 MG/DL 74-106 L [id number] 06:49:00 Test Item Value Reference Range Interpretation Comments GLUBED (test code = GLUBED) 236 MG/DL 74-106 H [id number] 21:45:00 Test Item Value Reference Range Interpretation Comments GLUBED (test code = GLUBED) 85 MG/DL 74-106 N C REACTIVE [id number] 18:53:00 Test Item Value Reference Range Interpretation Comments C REACTIVE PROTEIN (test code = < 5.0 mg/L 0-9 N CRP) [id number] 17:49:00 Test Item Value Reference Range Interpretation Comments GLUBED (test code = GLUBED) 267 MG/DL 74-106 H - XR ABDOMEN 1 [id number] 15:27:00 FAX: Eva Barreto [phone] [place]: St: [facility] FAX: Primitivo Franklin [phone]: Maverick Cruz MD [phone] Name: MALLORY GOMEZ [facility] : 1990 Age/S: 28/F [address] Unit#: [id number] Loc: [address] [place] [address] Phys: Adilia Cordova NP Acct: [id number] Dis Date: Status: ADM IN PHONE #: [phone] Exam Date: 09/16/2018 1305 FAX #: [phone] Reason: abdominal distention, eval ileus EXAMS: CPT CODE: [id number] XR ABDOMEN 1 V [id number] EXAM: Abdominal xray INDICATION: abdominal distention, eval ileus LOCATION CODE: C3 COMPARISON: 07/12/2018 TECHNIQUE: 1 view of the abdomen. DISCUSSION: The gallbladder is surgically absent. The senior database administrator view from the CT scan demonstrate presence of multiple air-filled loop of small bowel reside within the central aspect of the abdomen suggest ileus. This pattern has improved since prior study. Osseous structures are unremarkable. No subdiaphragmatic free air. IMPRESSION: 1. Improving small bowel distention. 2. Status post cholecystectomy. at 1527 Reported and signedby: Bhupinder Montelongo M.D. CC: Eva Sanchez DO; Adilia Cordova SCALE MECHANIC; Maverick Guerra MD Technologist: Dominique Fuller Trnscrd Date/Time/By: 09/16/2018 (3529) : By: Vickie PAGE 1 Signed Report FAX: Eva Barreto [phone] [place]: St: ADM FAX: Primitivo Franklin [phone] FAX: Maverick Crzu MD [phone] Name: MALLORY GOMEZ [facility] : 1990 Age/S: 28/F [address] Unit #:[id number] Loc: [address] [place] [address] Phys: Adilia Cordova SCALE MECHANIC Acct: [id number] Dis Date: Status: ADM IN PHONE #: [phone] Exam Date: 09/16/2018 1305 FAX #: [phone] Reason: abdominal distention, eval ileus EXAMS: CPT CODE: [id number] XR ABDOMEN 1 V 26777 (Continued) Orig Print D/T: S: 09/16/2018 (1530) PAGE 2 Signed [id number] 11:18:00 Test Item Value Reference Range Interpretation Comments GLUBED (test code = GLUBED) 94 MG/DL 74-106 N COMPREHENSIVE METABOLIC [id number] 03:41:00 Test Item Value Reference Range Interpretation [...] U/L 38-126 N (test code = ALKP) [id number] 03:41:00 Test Item Value Reference Range Interpretation Comments PHOSPHOROUS (test code = PHOS) 4.1 mg/dL 2.5-4.5 N [id number] 03:41:00 Test Item Value Reference Range Interpretation Comments MAGNESIUM (test code = MAG) 1.9 mg/dL 1.6-2.3 N CBC W/AUTO [id number] 03:32:00 Test Item Value Reference Range Interpretation [...] = BA#) 0.07 x10 3/uL 0.0-0.1 N [id number] 21:20:00 Test Item Value Reference Range Interpretation Comments GLUBED (test code = GLUBED) 173 MG/DL 74-106 H [id number] 16:10:00 Test Item Value Reference Range Interpretation Comments GLUBED (test code = GLUBED) 83 MG/DL 74-106 N CBC W/AUTO [id number] 14:05:00 Test Item Value Reference Range Interpretation [...] = BA#) 0.08 x10 3/uL 0.0-0.1 N [id number] 13:58:00 Test Item Value Reference Range Interpretation Comments LIPASE (test code = LIP) 54 U/L 23-300 N [id number] 12:26:00 Test Item Value Reference Range Interpretation [...] LDL Cholesterol<1 00mg/ dL: Desirable L DL-C rhvrwhlxatwbo51 0-159 mg/dL: Borderli ne High Risk LDL-C dkekynpspbjwb67 0-189 mg/dL: High ris k LDL-C concentra [...] AVG 11.04~~~~~~~~~~ ~~~~~~~ ~~~~~~~~~~~~~~~ ~~~~~~~ ~~~~~~~~~~~~~~~ ~~~~~~N ational Cholest dang Education (NCEP ) Guidelines:~~~~ ~~~~~~~ ~~~~~~~~~~~~~~~ ~~~~~~~ ~~~~~~~~~~~~~~~ ~~~~~~~ ~~~~~ HDL Cholesterol<4 0mg/dL: HDL Cholesterol (Major risk factor for CHD)>60mg/dL: H DL Cholesterol (Ne gative risk factor for CHD)40-59mg/dL: Borderline Risk LDL Cholesterol<1 00mg/dL : Desirable LDL -C ecyyljhospsmo44 0-159mg /dL: Borderline High Risk LDL-C ujzallgaitowc52 0-189mg /dL: High risk LDL-C concentration H DL-LDL Cholesterol is affected by a n umber of factors such as smoking, age an d sex.~~~~~~~~~~~ ~~~~~~~ ~~~~~~~~~~~~~~~ ~~~~~~~ ~~~~~~~~~~~~~~~ ~~~~~ UA RFLX MICR CULT IF [id number] 02:45:00 Test Item Value Reference Range Interpretation [...] for Culture: Dysuria/Frequency- CTA ABD PEL W [id number] 02:11:00 FAX: Eva Barreto Alia [phone] [place]: St: REG FAX: Дмитрий Loepz MD [phone] --- Name: MALLORY GOMEZ [facility] : 1990 Age/S: 28/F [address] Unit: [id number] Loc: [place], [place] [address]Jzlq: Дмитрий Lopez MD Acct: [id number] Dis Date: Status: REG ER PHONE #: [phone] Exam Date: 09/15/2018 0200 FAX #: [phone] Reason: ABD DISTINTION EXAMS: CPT CODE: [id number] CTA ABD PEL W CONT 35200 EXAM: - CTA ABD PEL W CONT LOCATION: C3 INDICATION: 28 years -old Female with ABD distention TECHNIQUE: Contrast - IV contrast was given. No oral contrast was given Arterial phase - abdomen and pelvis No delayed phase images were obtained. MIP- coronal and sagittal planes This exam wasperformed according to our departmental dose-optimization program, which includes automated exposurecontrol, adjustment of the mA and/or kV according to patient size and/or use of iterative reconstruction technique COMPARISON: None FINDINGS: Statements: None. Thoracic: Included images of the lower chest demonstrate no abnormalities. Hepatobiliary: The liver is enlarged measuring 22.5 cm. Status postcholecystectomy. No biliary dilation. Pancreas: Normal. Spleen: Normal. Adrenals: Normal. Genitourinary: The kidneys are normal. No evidence of hydronephrosis. Evaluation of the bladder is limited, butno obvious bladder abnormality is present. Gastrointestinal: High density material in the stomach likely reflects ingested contents given that the density is much higher than that of the arterial bloodpool. The appendix is not visualized. Vascular: No evidence of aneurysm or dissection. PAGE 1 SignedReport (CONTINUED) FAX: Eva Barreto [phone] [place]: St: REG FAX: Дмитрий Lopez MD [phone] Name:MALLORY GOMEZ [facility] : 1990 Age/S: 28/F [address] Unit: [id number] Loc: [place] [address] Phys: Дмитрий Lopez MD Acct: [id number] Dis Date: Status: REG ER PHONE #: [phone] Exam Date: 09/15/2018 0200 FAX #: [phone] Reason: ABD DISTINTION EXAMS: CPT CODE: [id number] CTA ABD PEL W CONT 10083 (Continued) Lymphatics: No enlarged lymph nodes by [...] Hepatomegaly. at 0211 Reported and signed by: Earle Best MD CC: Eva Sanchez DO; Дмитрий Lopez MD Technologist: GRZEGORZ BULLOCK; Malinda Berger; Matt Martinez [facility]/Tm: 09/15/2018 (0211) Ramon.HV2 Orig Print D/T: S: 09/15/2018 (0214 PAGE 2 Signed ReportPROTHROMBIN [id number] 02:02:00 Test Item Value Reference Range Interpretation [...] and Drug Administrationr ecommen dations. THROMBOPLASTIN TIME [id number] 02:02:00 Test Item Value Reference Range Interpretation Comments THROMBOPLASTIN TIME 22.9 SECONDS 23.4-37.0 L Therape utic Range PARTIAL (test code = for Hep izabela PTT) EFFECTIVE Heparin IU/mL a PTT Seconds0.3 64.3 0.7 88.8 COMPREHENSIVE METABOLIC [id number] 01:54:00 Test Item Value Reference Range Interpretation [...] 38-126 N (test code = ALKP) HCG [id number] 01:47:00 Test Item Value Reference Range Interpretation [...] after 48 hours toconfirm . CBC W/AUTO [id number] 01:43:00 Test Item Value Reference Range Interpretation [...] BA#) 0.06 x10 3/uL 0.0-0.1 N BEDSIDE [id number] 01:40:00 Test Item Value Reference Range Interpretation Comments BEDSIDE CREATININE (test code = 0.6 mg/dL 0.52-1.04 N CREATBED) [id number] 22:52:00 Test Item Value Reference Range Interpretation Comments Grp A Strep Scr (test Negative (08/03/18 5:52 code = Grp A Strep PM) Scr) [id number] 22:52:00 Test Item Value Reference Range Interpretation Comments Grp A Strep Scr (test Negative (08/03/18 5:52 code = Grp A Strep PM) Scr) [facility] [id number] 22:52:00 Test Item Value Reference Range Interpretation Comments Grp A Strep Scr (test Negative (08/03/18 5:52 code = Grp A Strep PM) Scr) [facility] AND [id number] 20:21:00 Test Item Value Reference Range Interpretation Comments UA Leuk Est (test code Small *ABN*(08/03/18 = UA Leuk Est) 3:21 PM) [facility] [id number] 20:21:00 Test Item Value Reference Range Interpretation Comments UA Nitrite (test code Positive *ABN*(08/03/18 = UA Nitrite) 3:21 PM) [facility] [id number] 20:21:00 Test Item Value Reference Range Interpretation Comments UA Urobilinogen (test code = UA 0.2 0.1-1.0 U[address]) [facility] AND [id number] 20:21:00 Test Item Value Reference Range Interpretation Comments UA Sq Epi (test code = UA Sq Epi) Many /LPF [facility] AND [id number] 20:21:00 Test Item Value Reference Range Interpretation Comments UA Bacteria (test code = UA Many /HPF Bacteria) [facility] AND [id number] 20:21:00 Test Item Value Reference Range Interpretation Comments UA RBC (test code = 18 See_Comment [Automa owen message] The UA RBC) system which ge nerated this result transmit owen reference range : <=2. The reference range was not used to interpr et this result as fredi l/abnormal. [facility] AND [id number] 20:21:00 Test Item Value Reference Range Interpretation Comments UA WBC (test code = 21 See_Comment [Automa owen message] The UA WBC) system which ge nerated this result transmit owen reference range : <=5. The reference range was not used to interpr et this result as fredi l/abnormal. [facility] AND [id number] 20:21:00 Test Item Value Reference Range Interpretation Comments UA Ketones (test code = UA Ketones) 80 mg/dL [facility] AND [id number] 20:21:00 Test Item Value Reference Range Interpretation Comments UA Blood (test code = Negative (08/03/18 3:21 UA Blood) PM) [facility] AND [id number] 20:21:00 Test Item Value Reference Range Interpretation Comments UA Bili (test code = Moderate *ABN*(08/03/18 UA Bili) 3:21 PM) [facility] AND [id number] 20:21:00 Test Item Value Reference Range Interpretation Comments UA Glucose (test code Negative (08/03/18 3:21 = UA Glucose) PM) [facility] AND [id number] 20:21:00 Test Item Value Reference Range Interpretation Comments UA pH (test code = UA pH) 6.5 1 5.0-8.0 [facility] AND [id number] 20:21:00 Test Item Value Reference Range Interpretation Comments UA Protein (test code = UA Protein) 30 mg/dL [facility] AND [id number] 20:21:00 Test Item Value Reference Range Interpretation Comments UA Spec Grav (test code = UA Spec 1.025 1 Grav) [facility] AND [id number] 20:21:00 Test Item Value Reference Range Interpretation Comments UA Turbidity (test code Cloudy *ABN*(08/03/18 = UA Turbidity) 3:21 PM) [facility] AND [id number] 20:21:00 Test Item Value Reference Range Interpretation Comments UA Color (test code = Yellow *NA*(08/03/18 UA Color) 3:21 PM) [facility] AND [id number] 20:21:00 Test Item Value Reference Range Interpretation Comments UA Perry Yeast (test code = UA Occasional /HPF Perry Yeast) [facility] AND [id number] 20:21:00 Test Item Value Reference Range Interpretation Comments UA Mucus (test code = UA Mucus) Many /LPF [facility]: [id number] 20:21:00 Test Item Value Reference Range Interpretation Comments Culture: Urine >100,000 CFU/mL Group B (test code = Streptococcus , No Culture: Urine) susceptibility performed since these organisms are predictably susceptible to penicillin. If patient is penicillin allergic or susceptibility testing for additional antibiotics is clinically warranted please call the laboratory. . 10,000 - 50,000 CFU/mL Skin Izzy [facility] AND [id number] 20:21:00 Test Item Value Reference Range Interpretation Comments UA Leuk Est (test code Small *ABN*(08/03/18 = UA Leuk Est) 3:21 PM) [facility] AND [id number] 20:21:00 Test Item Value Reference Range Interpretation Comments UA Nitrite (test code Positive *ABN*(08/03/18 = UA Nitrite) 3:21 PM) [facility] AND [id number] 20:21:00 Test Item Value Reference Range Interpretation Comments UA Urobilinogen (test code = UA 0.2 0.1-1.0 Urobilinogen) [facility] AND [id number] 20:21:00 Test Item Value Reference Range Interpretation Comments UA Sq Epi (test code = UA Sq Epi) Many /LPF [facility] AND [id number] 20:21:00 Test Item Value Reference Range Interpretation Comments UA Bacteria (test code = UA Many /HPF Bacteria) [facility] AND [id number] 20:21:00 Test Item Value Reference Range Interpretation Comments UA RBC (test code = 18 See_Comment [Automa owen message] The UA RBC) system which ge nerated this result transmit owen reference range : <=2. The reference range was not used to interpr et this result as fredi l/abnormal. [facility] AND [id number] 20:21:00 Test Item Value Reference Range Interpretation Comments UA WBC (test code = 21 See_Comment [Automa owen message] The UA WBC) system which ge nerated this result transmit owen reference range : <=5. The reference range was not used to interpr et this result as fredi l/abnormal. [facility] AND [id number] 20:21:00 Test Item Value Reference Range Interpretation Comments UA Ketones (test code = UA Ketones) 80 mg/dL [facility] AND [id number] 20:21:00 Test Item Value Reference Range Interpretation Comments UA Blood (test code = Negative (08/03/18 3:21 UA Blood) PM) [facility] AND [id number] 20:21:00 Test Item Value Reference Range Interpretation Comments UA Bili (test code = Moderate *ABN*(08/03/18 UA Bili) 3:21 PM) [facility] AND [id number] 20:21:00 Test Item Value Reference Range Interpretation Comments UA Glucose (test code Negative (08/03/18 3:21 = UA Glucose) PM) [facility] AND [id number] 20:21:00 Test Item Value Reference Range Interpretation Comments UA pH (test code = UA pH) 6.5 1 5.0-8.0 [facility] AND [id number] 20:21:00 Test Item Value Reference Range Interpretation Comments UA Protein (test code = UA Protein) 30 mg/dL [facility] AND [id number] 20:21:00 Test Item Value Reference Range Interpretation Comments UA Spec Grav (test code = UA Spec 1.025 1 Grav) [facility] AND [id number] 20:21:00 Test Item Value Reference Range Interpretation Comments UA Turbidity (test code Cloudy *ABN*(08/03/18 = UA Turbidity) 3:21 PM) [facility] AND [id number] 20:21:00 Test Item Value Reference Range Interpretation Comments UA Color (test code = Yellow *NA*(08/03/18 UA Color) 3:21 PM) [facility] AND [id number] 20:21:00 Test Item Value Reference Range Interpretation Comments UA Perry Yeast (test code = UA Occasional /HPF Perry Yeast) [facility] AND [id number] 20:21:00 Test Item Value Reference Range Interpretation Comments UA Mucus (test code = UA Mucus) Many /LPF [facility] CenterannCulture: [id number] 20:21:00 Test Item Value Reference Range Interpretation Comments Culture: Urine >100,000 CFU/mL Group B (test code = Streptococcus , No Culture: Urine) susceptibility performed since these organisms are predictably susceptible to penicillin. If patient is penicillin allergic or susceptibility testing for additional antibiotics is clinically warranted please call the laboratory. . 10,000 - 50,000 CFU/mL Skin Izzy [facility] AND [id number] 20:21:00 Test Item Value Reference Range Interpretation Comments UA Leuk Est (test code Small *ABN*(08/03/18 = UA Leuk Est) 3:21 PM) [facility] AND [id number] 20:21:00 Test Item Value Reference Range Interpretation Comments UA Nitrite (test code Positive *ABN*(08/03/18 = UA Nitrite) 3:21 PM) [facility] AND [id number] 20:21:00 Test Item Value Reference Range Interpretation Comments UA Urobilinogen (test code = UA 0.2 0.1-1.0 Urobilinogen) [facility] AND [id number] 20:21:00 Test Item Value Reference Range Interpretation Comments UA Sq Epi (test code = UA Sq Epi) Many /LPF [facility] AND [id number] 20:21:00 Test Item Value Reference Range Interpretation Comments UA Bacteria (test code = UA Many /HPF Bacteria) [facility] AND [id number] 20:21:00 Test Item Value Reference Range Interpretation Comments UA RBC (test code = 18 See_Comment [Automa owen message] The UA RBC) system which ge nerated this result transmit owen reference range : <=2. The reference range was not used to interpr et this result as fredi l/abnormal. [facility] AND [id number] 20:21:00 Test Item Value Reference Range Interpretation Comments UA WBC (test code = 21 See_Comment [Automa owen message] The UA WBC) system which ge nerated this result transmit owen reference range : <=5. The reference range was not used to interpr et this result as fredi l/abnormal. [facility] AND [id number] 20:21:00 Test Item Value Reference Range Interpretation Comments UA Ketones (test code = UA Ketones) 80 mg/dL [facility] AND [id number] 20:21:00 Test Item Value Reference Range Interpretation Comments UA Blood (test code = Negative (08/03/18 3:21 UA Blood) PM) [facility] AND [id number] 20:21:00 Test Item Value Reference Range Interpretation Comments UA Bili (test code = Moderate *ABN*(08/03/18 UA Bili) 3:21 PM) [facility] AND [id number] 20:21:00 Test Item Value Reference Range Interpretation Comments UA Glucose (test code Negative (08/03/18 3:21 = UA Glucose) PM) [facility] AND [id number] 20:21:00 Test Item Value Reference Range Interpretation Comments UA pH (test code = UA pH) 6.5 1 5.0-8.0 [facility] AND [id number] 20:21:00 Test Item Value Reference Range Interpretation Comments UA Protein (test code = UA Protein) 30 mg/dL [facility] AND [id number] 20:21:00 Test Item Value Reference Range Interpretation Comments UA Spec Grav (test code = UA Spec 1.025 1 Grav) [facility] AND [id number] 20:21:00 Test Item Value Reference Range Interpretation Comments UA Turbidity (test code Cloudy *ABN*(08/03/18 = UA Turbidity) 3:21 PM) [facility] AND [id number] 20:21:00 Test Item Value Reference Range Interpretation Comments UA Color (test code = Yellow *NA*(08/03/18 UA Color) 3:21 PM) [facility] AND [id number] 20:21:00 Test Item Value Reference Range Interpretation Comments UA Perry Yeast (test code = UA Occasional /HPF Perry Yeast) [facility] [id number] 20:21:00 Test Item Value Reference Range Interpretation Comments UA Mucus (test code = UA Mucus) Many /LPF [facility]: [id number] 20:21:00 Test Item Value Reference Range Interpretation Comments Culture: Urine >100,000 CFU/mL Group B (test code = Streptococcus , No Culture: Urine) susceptibility performed since these organisms are predictably susceptible to penicillin. If patient is penicillin allergic or susceptibility testing for additional antibiotics is clinically warranted please call the laboratory. . 10,000 - 50,000 CFU/mL Skin Izzy [facility] [id number] 18:25:00 Test Item Value Reference Range Interpretation Comments Magnesium Lvl (test code = Magnesium 1.7 1.8-2.4 Lvl) [facility]olo[facility] [id number] 18:25:00 Test Item Value Reference Range Interpretation Comments Ketone Quantitative (test code = Ketone 2.67 Quantitative) [facility] [id number] 18:25:00 Test Item Value Reference Range Interpretation Comments A/G Ratio (test code = A/G Ratio) 1.1 1 0.7-1.6 [facility] [id number] 18:25:00 Test Item Value Reference Range Interpretation Comments Globulin (test code = Globulin) 3.4 2.7-4.2 [facility] [id number] 18:25:00 Test Item Value Reference Range Interpretation Comments B/C Ratio (test code = B/C Ratio) 10 1 6-25 [facility] [id number] 18:25:00 Test Item Value Reference Range Interpretation Comments AGAP (test code = AGAP) 17.1 10.0-20.0 [facility] [id number] 18:25:00 Test Item Value Reference Range Interpretation Comments eGFR (test code = eGFR) 105 [facility] [id number] 18:25:00 Test Item Value Reference Range Interpretation Comments Total Protein (test code = Total 7.3 6.4-8.4 Protein) [facility] [id number] 18:25:00 Test Item Value Reference Range Interpretation Comments Calcium Lvl (test code = Calcium Lvl) 8.9 8.5-10.5 [facility]2019-03-19 18:25:00 Test Item Value Reference Range Interpretation Comments CO2 (test code = CO2) 22 24-32 [facility]2019-03-19 18:25:00 Test Item Value Reference Range Interpretation Comments Alk Phos (test code = Alk Phos) 93 39-136 [facility]2019-03-19 18:25:00 Test Item Value Reference Range Interpretation Comments Bili Total (test code = Bili Total) 0.6 0.2-1.3 [place] [id number] 18:25:00 Test Item Value Reference Range Interpretation Comments ALT (test code = ALT) 21 See_Comment [Auto mated message] The system which ge nerated this result transmit owen reference range : <=65. The reference range was not used to interpr et this result as fredi l/abnormal. [facility]2019-03-19 18:25:00 Test Item Value Reference Range Interpretation Comments Albumin Lvl (test code = Albumin Lvl) 3.9 3.5-5.0 [facility]2019-03-19 18:25:00 Test Item Value Reference Range Interpretation Comments AST (test code = AST) 14 See_Comment [Auto mated message] The system which ge nerated this result transmit owen reference range : <=37. The reference range was not used to interpr et this result as fredi l/abnormal. [facility]2019-03-19 18:25:00 Test Item Value Reference Range Interpretation Comments Chloride Lvl (test code = Chloride Lvl) 102 95-109 [facility]2019-03-19 18:25:00 Test Item Value Reference Range Interpretation Comments Sodium Lvl (test code = Sodium Lvl) 137 135-145 [facility]2019-03-19 18:25:00 Test Item Value Reference Range Interpretation Comments Creatinine Lvl (test code = Creatinine 0.77 0.50-1.40 Lvl) [facility]2019-03-19 18:25:00 Test Item Value Reference Range Interpretation Comments Glucose Lvl (test code = Glucose Lvl) 167 70-99 [facility]2019-03-19 18:25:00 Test Item Value Reference Range Interpretation Comments Potassium Lvl (test code = Potassium 4.1 3.5-5.1 Lvl) [facility]2019-03-19 18:25:00 Test Item Value Reference Range Interpretation Comments BUN (test code = BUN) 8 7-22 [place] [id number] 18:25:00 Test Item Value Reference Range Interpretation Comments S Preg (test code = S Negative *NA*(08/03/18 Preg) 1:25 PM) [facility] [id number] 18:25:00 Test Item Value Reference Range Interpretation Comments Monocytes (test code = Monocytes) 9.2 2.0-12.0 [facility] [id number] 18:25:00 Test Item Value Reference Range Interpretation Comments Monocytes # (test code 0.5 See_Comment [Aut omated message] The = Monocytes #) system which generated this result tra nsmitted reference range : <=0.8. The reference r jase was not used to int erpret this result as normal/abnormal . [facility] [id number] 18:25:00 Test Item Value Reference Range Interpretation Comments Neutrophils # (test code = Neutrophils 3.2 1.5-8.1 #) [facility] [id number] 18:25:00 Test Item Value Reference Range Interpretation Comments Lymphocytes # (test code = Lymphocytes 1.2 1.0-5.5 #) [facility]OghhnssZONTCRIJDQ0568-38-97 18:25:00 Test Item Value Reference Range Interpretation Comments Lymphocytes (test code = Lymphocytes) 22.7 20.0-40.0 [facility] HospitalCdrnxnoAAIJHSAWQD6813-18-26 18:25:00 Test Item Value Reference Range Interpretation Comments Segs (test code = Segs) 61.7 45.0-75.0 [facility] HospitalCmluurzEOFRNNKMMB3953-21-91 18:25:00 Test Item Value Reference Range Interpretation Comments Basophils (test code = 0.9 See_Comment [Aut omated message] The Basophils) system which ge nerated this result tra nsmitted reference range : <=1.0. The reference r jase was not used to int erpret this result as normal/abnormal . [facility] HospitalHokwcxoBDJTQBMXUJ5660-89-97 18:25:00 Test Item Value Reference Range Interpretation Comments Eosinophils (test code = 5.5 See_Comment [A utomated message] The Eosinophils) system which ge nerated this result tra nsmitted reference range : <=4.0. The reference r jase was not used to int erpret this result as normal/abnormal . [facility] HospitalIyrqhmvYFDJUSRMYM3593-36-37 18:25:00 Test Item Value Reference Range Interpretation Comments Eosinophils # (test code 0.3 See_Comment [A utomated message] The = Eosinophils #) system whic h generated this result tra nsmitted reference range : <=0.5. The reference r jase was not used to int erpret this result as normal/abnormal . [facility] HospitalUtjoxbgGKWBUYMJDB3361-74-18 18:25:00 Test Item Value Reference Range Interpretation Comments MPV (test code = MPV) 8.5 7.4-10.4 [facility] HospitalBycjaajTZFIKILOLQ5583-67-36 18:25:00 Test Item Value Reference Range Interpretation Comments MCV (test code = MCV) 98.2 80.0-98.0 [facility] HospitalRkdtnqdAUNQYSRKFM8683-65-97 18:25:00 Test Item Value Reference Range Interpretation Comments MCHC (test code = MCHC) 34.4 32.0-36.0 [facility] HospitalKidtuqaYYNMFKVABI3940-21-76 18:25:00 Test Item Value Reference Range Interpretation Comments MCH (test code = MCH) 33.8 pg 27.0-31.0 [facility] HospitalQgdbzarUFLXGJZEFL6455-75-17 18:25:00 Test Item Value Reference Range Interpretation Comments RDW (test code = RDW) 12.0 11.5-14.5 [facility] HospitalVfyjomgZSRAKYSBWZ4388-66-60 18:25:00 Test Item Value Reference Range Interpretation Comments Platelet (test code = Platelet) 243 133-450 [facility] HospitalJfdnublJQCNXQGITS1627-54-26 18:25:00 Test Item Value Reference Range Interpretation Comments RBC (test code = RBC) 4.36 4.20-5.40 [facility] HospitalIbkojyvALZEWUNOIP6772-94-72 18:25:00 Test Item Value Reference Range Interpretation Comments Hct (test code = Hct) 42.9 36.0-48.0 [facility] HospitalQqcebieKYRJBPTVUW8552-73-69 18:25:00 Test Item Value Reference Range Interpretation Comments Hgb (test code = Hgb) 14.7 12.0-16.0 [facility] HospitalSlpdiyzECRUAJGTKW5888-03-68 18:25:00 Test Item Value Reference Range Interpretation Comments WBC (test code = WBC) 5.2 3.7-10.4 [facility]2019-03-19 18:25:00 Test Item Value Reference Range Interpretation Comments Magnesium Lvl (test code = Magnesium 1.7 1.8-2.4 Lvl) [facility]2019-03-19 18:25:00 Test Item Value Reference Range Interpretation Comments Ketone Quantitative (test code = Ketone 2.67 Quantitative) [facility]2019-03-19 18:25:00 Test Item Value Reference Range Interpretation Comments A/G Ratio (test code = A/G Ratio) 1.1 1 0.7-1.6 [facility]2019-03-19 18:25:00 Test Item Value Reference Range Interpretation Comments Globulin (test code = Globulin) 3.4 2.7-4.2 [facility]2019-03-19 18:25:00 Test Item Value Reference Range Interpretation Comments B/C Ratio (test code = B/C Ratio) 10 1 6-25 [facility]2019-03-19 18:25:00 Test Item Value Reference Range Interpretation Comments AGAP (test code = AGAP) 17.1 10.0-20.0 [facility]2019-03-19 18:25:00 Test Item Value Reference Range Interpretation Comments eGFR (test code = eGFR) 105 [facility]2019-03-19 18:25:00 Test Item Value Reference Range Interpretation Comments Total Protein (test code = Total 7.3 6.4-8.4 Protein) [facility]2019-03-19 18:25:00 Test Item Value Reference Range Interpretation Comments Calcium Lvl (test code = Calcium Lvl) 8.9 8.5-10.5 [facility]2019-03-19 18:25:00 Test Item Value Reference Range Interpretation Comments CO2 (test code = CO2) 22 24-32 [facility]2019-03-19 18:25:00 Test Item Value Reference Range Interpretation Comments Alk Phos (test code = Alk Phos) 93 39-136 [facility]2019-03-19 18:25:00 Test Item Value Reference Range Interpretation Comments Bili Total (test code = Bili Total) 0.6 0.2-1.3 [facility]2019-03-19 18:25:00 Test Item Value Reference Range Interpretation Comments ALT (test code = ALT) 21 See_Comment [Auto mated message] The system which ge nerated this result transmit woen reference range : <=65. The reference range was not used to interpr et this result as fredi l/abnormal. [facility]2019-03-19 18:25:00 Test Item Value Reference Range Interpretation Comments Albumin Lvl (test code = Albumin Lvl) 3.9 3.5-5.0 [facility]2019-03-19 18:25:00 Test Item Value Reference Range Interpretation Comments AST (test code = AST) 14 See_Comment [Auto mated message] The system which ge nerated this result transmit owen reference range : <=37. The reference range was not used to interpr et this result as fredi l/abnormal. [facility]2019-03-19 18:25:00 Test Item Value Reference Range Interpretation Comments Chloride Lvl (test code = Chloride Lvl) 102 95-109 [facility]2019-03-19 18:25:00 Test Item Value Reference Range Interpretation Comments Sodium Lvl (test code = Sodium Lvl) 137 135-145 [facility]2019-03-19 18:25:00 Test Item Value Reference Range Interpretation Comments Creatinine Lvl (test code = Creatinine 0.77 0.50-1.40 Lvl) [facility]2019-03-19 18:25:00 Test Item Value Reference Range Interpretation Comments Glucose Lvl (test code = Glucose Lvl) 167 70-99 [facility]2019-03-19 18:25:00 Test Item Value Reference Range Interpretation Comments Potassium Lvl (test code = Potassium 4.1 3.5-5.1 Lvl) [facility]2019-03-19 18:25:00 Test Item Value Reference Range Interpretation Comments BUN (test code = BUN) 8 7-22 [facility]IuzriltRQGSMEDNGYUEM9186-09-33 18:25:00 Test Item Value Reference Range Interpretation Comments S Preg (test code = S Negative *NA*(08/03/18 Preg) 1:25 PM) [facility] HospitalOdixtubUKBDETXOUR7072-03-87 18:25:00 Test Item Value Reference Range Interpretation Comments Monocytes (test code = Monocytes) 9.2 2.0-12.0 [facility] HospitalUeayghsIBZSUPCZRW0920-08-84 18:25:00 Test Item Value Reference Range Interpretation Comments Monocytes # (test code 0.5 See_Comment [Aut omated message] The = Monocytes #) system which generated this result tra nsmitted reference range : <=0.8. The reference r jase was not used to int erpret this result as normal/abnormal . [place] [id number] 18:25:00 Test Item Value Reference Range Interpretation Comments Neutrophils # (test code = Neutrophils 3.2 1.5-8.1 #) [facility] HospitalLfasswuVYVEJTIQKY6407-45-65 18:25:00 Test Item Value Reference Range Interpretation Comments Lymphocytes # (test code = Lymphocytes 1.2 1.0-5.5 #) [facility] HospitalJvyvemiGTZQFCEYDH1077-90-96 18:25:00 Test Item Value Reference Range Interpretation Comments Lymphocytes (test code = Lymphocytes) 22.7 20.0-40.0 [facility] HospitalIbckkgnWJQJXETHEL0535-94-29 18:25:00 Test Item Value Reference Range Interpretation Comments Segs (test code = Segs) 61.7 45.0-75.0 [facility] HospitalBxlkaqsNUSRFWCNZO5583-76-82 18:25:00 Test Item Value Reference Range Interpretation Comments Basophils (test code = 0.9 See_Comment [Aut omated message] The Basophils) system which ge nerated this result tra nsmitted reference range : <=1.0. The reference r jase was not used to int erpret this result as normal/abnormal . [facility] HospitalQjqqsxyULTPKDOFWN0688-09-14 18:25:00 Test Item Value Reference Range Interpretation Comments Eosinophils (test code = 5.5 See_Comment [A utomated message] The Eosinophils) system which ge nerated this result tra nsmitted reference range : <=4.0. The reference r jase was not used to int erpret this result as normal/abnormal . [facility] HospitalInakpzvTMZSVFEIFM4419-89-47 18:25:00 Test Item Value Reference Range Interpretation Comments Eosinophils # (test code 0.3 See_Comment [A utomated message] The = Eosinophils #) system whic h generated this result tra nsmitted reference range : <=0.5. The reference r jase was not used to int erpret this result as normal/abnormal . [facility] HospitalIvryvfhYLGOTSOCHC2547-26-63 18:25:00 Test Item Value Reference Range Interpretation Comments MPV (test code = MPV) 8.5 7.4-10.4 [facility] HospitalZikjvzyFMMPNCKZKH9004-99-77 18:25:00 Test Item Value Reference Range Interpretation Comments MCV (test code = MCV) 98.2 80.0-98.0 [facility] HospitalUhgzpjeUNGQSFHMEO1744-91-81 18:25:00 Test Item Value Reference Range Interpretation Comments MCHC (test code = MCHC) 34.4 32.0-36.0 [facility] HospitalYklkvlwHADSZNSCJQ8583-50-01 18:25:00 Test Item Value Reference Range Interpretation Comments MCH (test code = MCH) 33.8 pg 27.0-31.0 [facility] HospitalPyztkhuUJVXGPLHHK6099-32-26 18:25:00 Test Item Value Reference Range Interpretation Comments RDW (test code = RDW) 12.0 11.5-14.5 [facility] HospitalMbrmqgdUDAWPGODBR8922-32-99 18:25:00 Test Item Value Reference Range Interpretation Comments Platelet (test code = Platelet) 243 133-450 [facility] HospitalMrdswftNGSJYSDVKC8554-95-21 18:25:00 Test Item Value Reference Range Interpretation Comments RBC (test code = RBC) 4.36 4.20-5.40 [facility] HospitalWrpuhcwYUKZPMIXAJ5540-36-82 18:25:00 Test Item Value Reference Range Interpretation Comments Hct (test code = Hct) 42.9 36.0-48.0 [facility] HospitalDsugeuhSRBGTTAWHH3490-62-66 18:25:00 Test Item Value Reference Range Interpretation Comments Hgb (test code = Hgb) 14.7 12.0-16.0 [facility] HospitalYwqdtmdEUPWHMJJOK4989-64-22 18:25:00 Test Item Value Reference Range Interpretation Comments WBC (test code = WBC) 5.2 3.7-10.4 [facility]2019-03-19 18:25:00 Test Item Value Reference Range Interpretation Comments Magnesium Lvl (test code = Magnesium 1.7 1.8-2.4 Lvl) [facility]2019-03-19 18:25:00 Test Item Value Reference Range Interpretation Comments Ketone Quantitative (test code = Ketone 2.67 Quantitative) [facility]2019-03-19 18:25:00 Test Item Value Reference Range Interpretation Comments A/G Ratio (test code = A/G Ratio) 1.1 1 0.7-1.6 [facility]2019-03-19 18:25:00 Test Item Value Reference Range Interpretation Comments Globulin (test code = Globulin) 3.4 2.7-4.2 [facility]2019-03-19 18:25:00 Test Item Value Reference Range Interpretation Comments B/C Ratio (test code = B/C Ratio) 10 1 6-25 [facility]2019-03-19 18:25:00 Test Item Value Reference Range Interpretation Comments AGAP (test code = AGAP) 17.1 10.0-20.0 [facility]2019-03-19 18:25:00 Test Item Value Reference Range Interpretation Comments eGFR (test code = eGFR) 105 [facility]2019-03-19 18:25:00 Test Item Value Reference Range Interpretation Comments Total Protein (test code = Total 7.3 6.4-8.4 Protein) [facility]2019-03-19 18:25:00 Test Item Value Reference Range Interpretation Comments Calcium Lvl (test code = Calcium Lvl) 8.9 8.5-10.5 [facility]2019-03-19 18:25:00 Test Item Value Reference Range Interpretation Comments CO2 (test code = CO2) 22 24-32 [facility]2019-03-19 18:25:00 Test Item Value Reference Range Interpretation Comments Alk Phos (test code = Alk Phos) 93 39-136 [facility]2019-03-19 18:25:00 Test Item Value Reference Range Interpretation Comments Bili Total (test code = Bili Total) 0.6 0.2-1.3 [facility]2019-03-19 18:25:00 Test Item Value Reference Range Interpretation Comments ALT (test code = ALT) 21 See_Comment [Auto mated message] The system which ge nerated this result transmit owen reference range : <=65. The reference range was not used to interpr et this result as fredi l/abnormal. [facility]2019-03-19 18:25:00 Test Item Value Reference Range Interpretation Comments Albumin Lvl (test code = Albumin Lvl) 3.9 3.5-5.0 [facility]2019-03-19 18:25:00 Test Item Value Reference Range Interpretation Comments AST (test code = AST) 14 See_Comment [Auto mated message] The system which ge nerated this result transmit owen reference range : <=37. The reference range was not used to interpr et this result as fredi l/abnormal. [facility]2019-03-19 18:25:00 Test Item Value Reference Range Interpretation Comments Chloride Lvl (test code = Chloride Lvl) 102 95-109 [facility]2019-03-19 18:25:00 Test Item Value Reference Range Interpretation Comments Sodium Lvl (test code = Sodium Lvl) 137 135-145 [facility]2019-03-19 18:25:00 Test Item Value Reference Range Interpretation Comments Creatinine Lvl (test code = Creatinine 0.77 0.50-1.40 Lvl) [facility]2019-03-19 18:25:00 Test Item Value Reference Range Interpretation Comments Glucose Lvl (test code = Glucose Lvl) 167 70-99 [facility]2019-03-19 18:25:00 Test Item Value Reference Range Interpretation Comments Potassium Lvl (test code = Potassium 4.1 3.5-5.1 Lvl) [facility]2019-03-19 18:25:00 Test Item Value Reference Range Interpretation Comments BUN (test code = BUN) 8 7-22 [facility]PbtmtuyIYRYLSJCLTYOT7007-47-62 18:25:00 Test Item Value Reference Range Interpretation Comments S Preg (test code = S Negative *NA*(08/03/18 Preg) 1:25 PM) [facility] HospitalEtfzrezRTUARLANWC9772-00-07 18:25:00 Test Item Value Reference Range Interpretation Comments Monocytes (test code = Monocytes) 9.2 2.0-12.0 [facility] HospitalSfcfxsoRDICEBCOUM2528-60-95 18:25:00 Test Item Value Reference Range Interpretation Comments Monocytes # (test code 0.5 See_Comment [Aut omated message] The = Monocytes #) system which generated this result tra nsmitted reference range : <=0.8. The reference r jase was not used to int erpret this result as normal/abnormal . [facility] HospitalBqmvodtAMFSOOTQTY0911-25-20 18:25:00 Test Item Value Reference Range Interpretation Comments Neutrophils # (test code = Neutrophils 3.2 1.5-8.1 #) [facility] HospitalOztwkmyQSYVJWJMLJ2257-16-61 18:25:00 Test Item Value Reference Range Interpretation Comments Lymphocytes # (test code = Lymphocytes 1.2 1.0-5.5 #) [facility] HospitalYarhgcqBCNYRFBBBK1879-07-79 18:25:00 Test Item Value Reference Range Interpretation Comments Lymphocytes (test code = Lymphocytes) 22.7 20.0-40.0 [facility] HospitalRoowevwWSBPLZAROW9613-52-23 18:25:00 Test Item Value Reference Range Interpretation Comments Segs (test code = Segs) 61.7 45.0-75.0 [place] [id number] 18:25:00 Test Item Value Reference Range Interpretation Comments Basophils (test code = 0.9 See_Comment [Aut omated message] The Basophils) system which ge nerated this result tra nsmitted reference range : <=1.0. The reference r jase was not used to int erpret this result as normal/abnormal . [facility] HospitalSozjpntOMPTLBINRU8933-77-45 18:25:00 Test Item Value Reference Range Interpretation Comments Eosinophils (test code = 5.5 See_Comment [A utomated message] The Eosinophils) system which ge nerated this result tra nsmitted reference range : <=4.0. The reference r jase was not used to int erpret this result as normal/abnormal . [facility] HospitalQdrvltyTSTUUZIJQZ5386-73-60 18:25:00 Test Item Value Reference Range Interpretation Comments Eosinophils # (test code 0.3 See_Comment [A utomated message] The = Eosinophils #) system whic h generated this result tra nsmitted reference range : <=0.5. The reference r jase was not used to int erpret this result as normal/abnormal . [facility] HospitalLqzbzhbCRCUFAJSCS0941-93-11 18:25:00 Test Item Value Reference Range Interpretation Comments MPV (test code = MPV) 8.5 7.4-10.4 [facility] HospitalZdikkadMKPXWLYREH3502-03-81 18:25:00 Test Item Value Reference Range Interpretation Comments MCV (test code = MCV) 98.2 80.0-98.0 [facility] HospitalDiozlypPRJRUJVNNP6680-16-03 18:25:00 Test Item Value Reference Range Interpretation Comments MCHC (test code = MCHC) 34.4 32.0-36.0 [facility] HospitalPuhycakVSYEYGCLUP5395-35-93 18:25:00 Test Item Value Reference Range Interpretation Comments MCH (test code = MCH) 33.8 pg 27.0-31.0 [facility] HospitalZdrwubvBSYITEGNME4451-43-49 18:25:00 Test Item Value Reference Range Interpretation Comments RDW (test code = RDW) 12.0 11.5-14.5 [facility] HospitalBsjjajcIIJQPOVKYS2323-27-51 18:25:00 Test Item Value Reference Range Interpretation Comments Platelet (test code = Platelet) 243 133-450 [facility] HospitalEwhmwkhZNXACPNQVI8394-13-04 18:25:00 Test Item Value Reference Range Interpretation Comments RBC (test code = RBC) 4.36 4.20-5.40 [facility] HospitalDoaknvtLYAMLFPCMC6655-16-80 18:25:00 Test Item Value Reference Range Interpretation Comments Hct (test code = Hct) 42.9 36.0-48.0 [facility] HospitalYzhzrpaITWUPSIEON6715-39-81 18:25:00 Test Item Value Reference Range Interpretation Comments Hgb (test code = Hgb) 14.7 12.0-16.0 [facility] HospitalQjrxcbrPDIUWCONPO1487-27-45 18:25:00 Test Item Value Reference Range Interpretation Comments WBC (test code = WBC) 5.2 3.7-10.4 [facility]2019-03-01 23:33:00 Test Item Value Reference Range Interpretation Comments eGFR (test code = eGFR) 92 [facility]2019-03-01 23:33:00 Test Item Value Reference Range Interpretation Comments Glucose Lvl (test code = Glucose Lvl) 248 70-99 [facility]2019-03-01 23:33:00 Test Item Value Reference Range Interpretation Comments BUN (test code = BUN) 13 7-22 [facility]2019-03-01 23:33:00 Test Item Value Reference Range Interpretation Comments Creatinine Lvl (test code = Creatinine 0.86 0.50-1.40 Lvl) [facility]2019-03-01 23:33:00 Test Item Value Reference Range Interpretation Comments Sodium Lvl (test code = Sodium Lvl) 132 135-145 [facility]2019-03-01 23:33:00 Test Item Value Reference Range Interpretation Comments Potassium Lvl (test code = Potassium 4.1 3.5-5.1 Lvl) [facility]2019-03-01 23:33:00 Test Item Value Reference Range Interpretation Comments Alk Phos (test code = Alk Phos) 99 39-136 [facility]2019-03-01 23:33:00 Test Item Value Reference Range Interpretation Comments Bili Total (test code = Bili Total) 0.3 0.2-1.3 [facility]2019-03-01 23:33:00 Test Item Value Reference Range Interpretation Comments Total Protein (test code = Total 7.8 6.4-8.4 Protein) [facility]2019-03-01 23:33:00 Test Item Value Reference Range Interpretation Comments Albumin Lvl (test code = Albumin Lvl) 4.2 3.5-5.0 [facility]2019-03-01 23:33:00 Test Item Value Reference Range Interpretation Comments ALT (test code = ALT) 49 See_Comment [Auto mated message] The system which ge nerated this result transmit owen reference range : <=65. The reference range was not used to interpr et this result as fredi l/abnormal. [facility]2019-03-01 23:33:00 Test Item Value Reference Range Interpretation Comments AST (test code = AST) 26 See_Comment [Auto mated message] The system which ge nerated this result transmit owen reference range : <=37. The reference range was not used to interpr et this result as fredi l/abnormal. [facility]2019-03-01 23:33:00 Test Item Value Reference Range Interpretation Comments Calcium Lvl (test code = Calcium Lvl) 10.1 8.5-10.5 [facility]2019-03-01 23:33:00 Test Item Value Reference Range Interpretation Comments Chloride Lvl (test code = Chloride Lvl) 98 95-109 [facility]2019-03-01 23:33:00 Test Item Value Reference Range Interpretation Comments CO2 (test code = CO2) 26 24-32 [facility]2019-03-01 23:33:00 Test Item Value Reference Range Interpretation Comments AGAP (test code = AGAP) 12.1 10.0-20.0 [facility]2019-03-01 23:33:00 Test Item Value Reference Range Interpretation Comments B/C Ratio (test code = B/C Ratio) 15 1 6-25 [facility]2019-03-01 23:33:00 Test Item Value Reference Range Interpretation Comments Globulin (test code = Globulin) 3.6 2.7-4.2 [facility]2019-03-01 23:33:00 Test Item Value Reference Range Interpretation Comments A/G Ratio (test code = A/G Ratio) 1.2 1 0.7-1.6 [place] 01357019-03-01 23:33:00 Test Item Value Reference Range Interpretation Comments S Preg (test code = S Negative *NA*(07/16/18 Preg) 5:33 PM) [facility] HospitalPehrkjzBFPGXHBZLH2643-73-04 23:33:00 Test Item Value Reference Range Interpretation Comments PTT (test code = PTT) 25.4 s 22.9-35.8 [facility] HospitalCizzgihIUHHXNVYTS0992-56-22 23:33:00 Test Item Value Reference Range Interpretation Comments PT (test code = PT) 11.5 s 12.0-14.7 [facility] HospitalLfhjxptNGCZLQVYJQ6259-23-61 23:33:00 Test Item Value Reference Range Interpretation Comments INR (test code = INR) 0.85 1 0.85-1.17 [facility] HospitalHvzweijLHIYXPWWZM0924-37-37 23:33:00 Test Item Value Reference Range Interpretation Comments MCHC (test code = MCHC) 34.5 32.0-36.0 [facility] HospitalAkfyrclFFBGBZTOSW3411-23-90 23:33:00 Test Item Value Reference Range Interpretation Comments MCV (test code = MCV) 100.0 80.0-98.0 [facility] HospitalFzjsubvEACKFAGGYP6986-71-61 23:33:00 Test Item Value Reference Range Interpretation Comments Hct (test code = Hct) 46.1 36.0-48.0 [facility] HospitalVywtdabAUHFRMMSNK4148-30-21 23:33:00 Test Item Value Reference Range Interpretation Comments Hgb (test code = Hgb) 15.9 12.0-16.0 [facility] HospitalMkaapfuAKPQDHBRRN1294-67-24 23:33:00 Test Item Value Reference Range Interpretation Comments RBC (test code = RBC) 4.61 4.20-5.40 [facility] HospitalPiivrcxWEKRXMTUHN2336-76-04 23:33:00 Test Item Value Reference Range Interpretation Comments MCH (test code = MCH) 34.5 pg 27.0-31.0 [facility] [id number] 23:33:00 Test Item Value Reference Range Interpretation Comments WBC (test code = WBC) 8.8 3.7-10.4 [facility] HospitalMrbcbbtLRVRSQYYWT0261-68-76 23:33:00 Test Item Value Reference Range Interpretation Comments MPV (test code = MPV) 8.8 7.4-10.4 [place] [id number] 23:33:00 Test Item Value Reference Range Interpretation Comments Platelet (test code = Platelet) 297 133-450 [facility] HospitalSpzhenvGHDJHABCZF8139-94-83 23:33:00 Test Item Value Reference Range Interpretation Comments RDW (test code = RDW) 12.1 11.5-14.5 [facility] HospitalGcvrcbsOFWZORSOSO4840-05-92 23:33:00 Test Item Value Reference Range Interpretation Comments Macrocyte (test code = 1+ *ABN*(07/16/18 5:33 Macrocyte) PM) [facility] HospitalSehmleaEBNDGHRRXD6350-78-52 23:33:00 Test Item Value Reference Range Interpretation Comments Basophils # (test code 0.1 See_Comment [Aut omated message] The = Basophils #) system which generated this result tra nsmitted reference range : <=0.2. The reference r jase was not used to int erpret this result as normal/abnormal . [facility] HospitalGkuamttYEJXQFZBTN0785-42-72 23:33:00 Test Item Value Reference Range Interpretation Comments Eosinophils # (test code 0.7 See_Comment [A utomated message] The = Eosinophils #) system whic h generated this result tra nsmitted reference range : <=0.5. The reference r jase was not used to int erpret this result as normal/abnormal . [facility] HospitalDtpkyuiMSDLJFMBKX0057-14-18 23:33:00 Test Item Value Reference Range Interpretation Comments Monocytes # (test code 0.4 See_Comment [Aut omated message] The = Monocytes #) system which generated this result tra nsmitted reference range : <=0.8. The reference r jase was not used to int erpret this result as normal/abnormal . [facility] HospitalIkrimpyFBBOSQREEV9005-35-37 23:33:00 Test Item Value Reference Range Interpretation Comments Lymphocytes # (test code = Lymphocytes 2.3 1.0-5.5 #) [facility] HospitalQigfxpkSJCSZEJDOP9932-51-83 23:33:00 Test Item Value Reference Range Interpretation Comments Segs (test code = Segs) 60.5 45.0-75.0 [place] 864489-03-01 23:33:00 Test Item Value Reference Range Interpretation Comments Neutrophils # (test code = Neutrophils 5.3 1.5-8.1 #) [facility] HospitalKwgjtyzNYAKQFERMK2881-64-89 23:33:00 Test Item Value Reference Range Interpretation Comments Monocytes (test code = Monocytes) 4.9 2.0-12.0 [place] 864489-03-01 23:33:00 Test Item Value Reference Range Interpretation Comments Basophils (test code = 0.9 See_Comment [Aut omated message] The Basophils) system which ge nerated this result tra nsmitted reference range : <=1.0. The reference r jase was not used to int erpret this result as normal/abnormal . [facility] HospitalPyliaisTVKQCCLCEW0596-54-67 23:33:00 Test Item Value Reference Range Interpretation Comments Eosinophils (test code = 7.6 See_Comment [A utomated message] The Eosinophils) system which ge nerated this result tra nsmitted reference range : <=4.0. The reference r jase was not used to int erpret this result as normal/abnormal . [facility] HospitalVgjbzalHULDPEGYAC8833-45-54 23:33:00 Test Item Value Reference Range Interpretation Comments Lymphocytes (test code = Lymphocytes) 26.1 20.0-40.0 [facility]2019-03-01 23:33:00 Test Item Value Reference Range Interpretation Comments eGFR (test code = eGFR) 92 [facility]2019-03-01 23:33:00 Test Item Value Reference Range Interpretation Comments Glucose Lvl (test code = Glucose Lvl) 248 70-99 [facility]2019-03-01 23:33:00 Test Item Value Reference Range Interpretation Comments BUN (test code = BUN) 13 7-22 [facility]2019-03-01 23:33:00 Test Item Value Reference Range Interpretation Comments Creatinine Lvl (test code = Creatinine 0.86 0.50-1.40 Lvl) [facility]2019-03-01 23:33:00 Test Item Value Reference Range Interpretation Comments Sodium Lvl (test code = Sodium Lvl) 132 135-145 [facility]2019-03-01 23:33:00 Test Item Value Reference Range Interpretation Comments Potassium Lvl (test code = Potassium 4.1 3.5-5.1 Lvl) [facility]2019-03-01 23:33:00 Test Item Value Reference Range Interpretation Comments Alk Phos (test code = Alk Phos) 99 39-136 [facility]2019-03-01 23:33:00 Test Item Value Reference Range Interpretation Comments Bili Total (test code = Bili Total) 0.3 0.2-1.3 [facility]2019-03-01 23:33:00 Test Item Value Reference Range Interpretation Comments Total Protein (test code = Total 7.8 6.4-8.4 Protein) [facility]2019-03-01 23:33:00 Test Item Value Reference Range Interpretation Comments Albumin Lvl (test code = Albumin Lvl) 4.2 3.5-5.0 [facility]2019-03-01 23:33:00 Test Item Value Reference Range Interpretation Comments ALT (test code = ALT) 49 See_Comment [Auto mated message] The system which ge nerated this result transmit owen reference range : <=65. The reference range was not used to interpr et this result as fredi l/abnormal. [facility]2019-03-01 23:33:00 Test Item Value Reference Range Interpretation Comments AST (test code = AST) 26 See_Comment [Auto mated message] The system which e-channel nerated this result transmit owen reference range : <=37. The reference range was not used to interpr et this result as fredi l/abnormal. [facility]2019-03-01 23:33:00 Test Item Value Reference Range Interpretation Comments Calcium Lvl (test code = Calcium Lvl) 10.1 8.5-10.5 [facility]2019-03-01 23:33:00 Test Item Value Reference Range Interpretation Comments Chloride Lvl (test code = Chloride Lvl) 98 95-109 [facility]2019-03-01 23:33:00 Test Item Value Reference Range Interpretation Comments CO2 (test code = CO2) 26 24-32 [facility]2019-03-01 23:33:00 Test Item Value Reference Range Interpretation Comments AGAP (test code = AGAP) 12.1 10.0-20.0 [facility]2019-03-01 23:33:00 Test Item Value Reference Range Interpretation Comments B/C Ratio (test code = B/C Ratio) 15 1 6-25 [facility]2019-03-01 23:33:00 Test Item Value Reference Range Interpretation Comments Globulin (test code = Globulin) 3.6 2.7-4.2 [facility]2019-03-01 23:33:00 Test Item Value Reference Range Interpretation Comments A/G Ratio (test code = A/G Ratio) 1.2 1 0.7-1.6 [place] 01357019-03-01 23:33:00 Test Item Value Reference Range Interpretation Comments S Preg (test code = S Negative *NA*(07/16/18 Preg) 5:33 PM) [facility] HospitalJgahabeGLKIZPSFQC0296-67-06 23:33:00 Test Item Value Reference Range Interpretation Comments PTT (test code = PTT) 25.4 s 22.9-35.8 [facility] HospitalHaxtkrjBAQPTAZPTU7904-87-86 23:33:00 Test Item Value Reference Range Interpretation Comments PT (test code = PT) 11.5 s 12.0-14.7 [facility] HospitalUbbxoriYUQXRSTKVL8710-96-29 23:33:00 Test Item Value Reference Range Interpretation Comments INR (test code = INR) 0.85 1 0.85-1.17 [facility] HospitalNfkszyfGBYSQSETAL2675-10-43 23:33:00 Test Item Value Reference Range Interpretation Comments MCHC (test code = MCHC) 34.5 32.0-36.0 [facility] HospitalQprorojUFVWPXOHXE3303-68-84 23:33:00 Test Item Value Reference Range Interpretation Comments MCV (test code = MCV) 100.0 80.0-98.0 [place] 864489-03-01 23:33:00 Test Item Value Reference Range Interpretation Comments Hct (test code = Hct) 46.1 36.0-48.0 [facility] HospitalYmuhwtsLIGSTURJXW1083-01-05 23:33:00 Test Item Value Reference Range Interpretation Comments Hgb (test code = Hgb) 15.9 12.0-16.0 [facility] HospitalTuddpakWZDNETVCVP9531-79-17 23:33:00 Test Item Value Reference Range Interpretation Comments RBC (test code = RBC) 4.61 4.20-5.40 [facility] HospitalWdpkzxkOVSURAAQXF5889-72-46 23:33:00 Test Item Value Reference Range Interpretation Comments MCH (test code = MCH) 34.5 pg 27.0-31.0 [facility] HospitalNwzcpbcAMUJSAQCJJ7976-41-95 23:33:00 Test Item Value Reference Range Interpretation Comments WBC (test code = WBC) 8.8 3.7-10.4 [facility] HospitalGtwnxdqICPNPAXGEY5063-91-66 23:33:00 Test Item Value Reference Range Interpretation Comments MPV (test code = MPV) 8.8 7.4-10.4 [facility] HospitalBjykiwcVGEPVXKYKW0180-00-79 23:33:00 Test Item Value Reference Range Interpretation Comments Platelet (test code = Platelet) 297 133-450 [facility] HospitalIlcnzosCLZCHIXSBM7117-94-94 23:33:00 Test Item Value Reference Range Interpretation Comments RDW (test code = RDW) 12.1 11.5-14.5 [facility] HospitalNxfscicTQLJUEGANJ7394-70-96 23:33:00 Test Item Value Reference Range Interpretation Comments Macrocyte (test code = 1+ *ABN*(07/16/18 5:33 Macrocyte) PM) [facility] HospitalAiqlbziUDBOQYNXPT4243-96-21 23:33:00 Test Item Value Reference Range Interpretation Comments Basophils # (test code 0.1 See_Comment [Aut omated message] The = Basophils #) system which generated this result tra nsmitted reference range : <=0.2. The reference r jase was not used to int erpret this result as normal/abnormal . [facility] HospitalIvxyldiFUQWDCMNZV2886-94-63 23:33:00 Test Item Value Reference Range Interpretation Comments Eosinophils # (test code 0.7 See_Comment [A utomated message] The = Eosinophils #) system whic h generated this result tra nsmitted reference range : <=0.5. The reference r jase was not used to int erpret this result as normal/abnormal . [facility] HospitalQswwisuOKCSPMGOAZ1017-58-55 23:33:00 Test Item Value Reference Range Interpretation Comments Monocytes # (test code 0.4 See_Comment [Aut omated message] The = Monocytes #) system which generated this result tra nsmitted reference range : <=0.8. The reference r jase was not used to int erpret this result as normal/abnormal . [facility] HospitalCllbrtfSTZIVTVMXC4523-68-26 23:33:00 Test Item Value Reference Range Interpretation Comments Lymphocytes # (test code = Lymphocytes 2.3 1.0-5.5 #) [facility] HospitalTgaqeacEEGZXEXVHQ3789-74-26 23:33:00 Test Item Value Reference Range Interpretation Comments Segs (test code = Segs) 60.5 45.0-75.0 [facility] HospitalPdntrdfNDEGRZBCVA2464-19-57 23:33:00 Test Item Value Reference Range Interpretation Comments Neutrophils # (test code = Neutrophils 5.3 1.5-8.1 #) [facility] HospitalNxhxfguFRIOYQBCTH6768-50-50 23:33:00 Test Item Value Reference Range Interpretation Comments Monocytes (test code = Monocytes) 4.9 2.0-12.0 [facility] HospitalXfqhnduNZZIMSCBGK4369-86-96 23:33:00 Test Item Value Reference Range Interpretation Comments Basophils (test code = 0.9 See_Comment [Aut omated message] The Basophils) system which ge nerated this result tra nsmitted reference range : <=1.0. The reference r jase was not used to int erpret this result as normal/abnormal . [facility] HospitalDvnhkijBBKEEAGZXC3048-23-91 23:33:00 Test Item Value Reference Range Interpretation Comments Eosinophils (test code = 7.6 See_Comment [A utomated message] The Eosinophils) system which ge nerated this result tra nsmitted reference range : <=4.0. The reference r jase was not used to int erpret this result as normal/abnormal . [facility] HospitalZevxwxrNLSBSFJCLL9939-80-25 23:33:00 Test Item Value Reference Range Interpretation Comments Lymphocytes (test code = Lymphocytes) 26.1 20.0-40.0 [facility]2019-03-01 23:33:00 Test Item Value Reference Range Interpretation Comments eGFR (test code = eGFR) 92 [facility]2019-03-01 23:33:00 Test Item Value Reference Range Interpretation Comments Glucose Lvl (test code = Glucose Lvl) 248 70-99 [facility]2019-03-01 23:33:00 Test Item Value Reference Range Interpretation Comments BUN (test code = BUN) 13 7-22 [facility]2019-03-01 23:33:00 Test Item Value Reference Range Interpretation Comments Creatinine Lvl (test code = Creatinine 0.86 0.50-1.40 Lvl) [facility]2019-03-01 23:33:00 Test Item Value Reference Range Interpretation Comments Sodium Lvl (test code = Sodium Lvl) 132 135-145 [facility]2019-03-01 23:33:00 Test Item Value Reference Range Interpretation Comments Potassium Lvl (test code = Potassium 4.1 3.5-5.1 Lvl) [facility]2019-03-01 23:33:00 Test Item Value Reference Range Interpretation Comments Alk Phos (test code = Alk Phos) 99 39-136 [facility]2019-03-01 23:33:00 Test Item Value Reference Range Interpretation Comments Bili Total (test code = Bili Total) 0.3 0.2-1.3 [facility]2019-03-01 23:33:00 Test Item Value Reference Range Interpretation Comments Total Protein (test code = Total 7.8 6.4-8.4 Protein) [facility]2019-03-01 23:33:00 Test Item Value Reference Range Interpretation Comments Albumin Lvl (test code = Albumin Lvl) 4.2 3.5-5.0 [facility]2019-03-01 23:33:00 Test Item Value Reference Range Interpretation Comments ALT (test code = ALT) 49 See_Comment [Auto mated message] The system which ge nerated this result transmit owen reference range : <=65. The reference range was not used to interpr et this result as fredi l/abnormal. [facility]2019-03-01 23:33:00 Test Item Value Reference Range Interpretation Comments AST (test code = AST) 26 See_Comment [Auto mated message] The system which ge nerated this result transmit owen reference range : <=37. The reference range was not used to interpr et this result as fredi l/abnormal. [facility]2019-03-01 23:33:00 Test Item Value Reference Range Interpretation Comments Calcium Lvl (test code = Calcium Lvl) 10.1 8.5-10.5 [facility]2019-03-01 23:33:00 Test Item Value Reference Range Interpretation Comments Chloride Lvl (test code = Chloride Lvl) 98 95-109 [facility]2019-03-01 23:33:00 Test Item Value Reference Range Interpretation Comments CO2 (test code = CO2) 26 24-32 [facility]2019-03-01 23:33:00 Test Item Value Reference Range Interpretation Comments AGAP (test code = AGAP) 12.1 10.0-20.0 [facility]2019-03-01 23:33:00 Test Item Value Reference Range Interpretation Comments B/C Ratio (test code = B/C Ratio) 15 1 6-25 [facility]2019-03-01 23:33:00 Test Item Value Reference Range Interpretation Comments Globulin (test code = Globulin) 3.6 2.7-4.2 [facility]2019-03-01 23:33:00 Test Item Value Reference Range Interpretation Comments A/G Ratio (test code = A/G Ratio) 1.2 1 0.7-1.6 [place] 01357019-03-01 23:33:00 Test Item Value Reference Range Interpretation Comments S Preg (test code = S Negative *NA*(07/16/18 Preg) 5:33 PM) [facility] HospitalEfldvjjYDZCFCCUWE8763-61-27 23:33:00 Test Item Value Reference Range Interpretation Comments PTT (test code = PTT) 25.4 s 22.9-35.8 [facility] HospitalLeqdodvQMFSZIHKUM5387-99-34 23:33:00 Test Item Value Reference Range Interpretation Comments PT (test code = PT) 11.5 s 12.0-14.7 [facility] HospitalQqfufyyNLISHFXCZR5721-02-56 23:33:00 Test Item Value Reference Range Interpretation Comments INR (test code = INR) 0.85 1 0.85-1.17 [facility] HospitalGpzhhugWXRQQODPEV9795-48-99 23:33:00 Test Item Value Reference Range Interpretation Comments MCHC (test code = MCHC) 34.5 32.0-36.0 [facility] HospitalOmzzxenFJFARMAQAW9821-84-80 23:33:00 Test Item Value Reference Range Interpretation Comments MCV (test code = MCV) 100.0 80.0-98.0 [facility] HospitalYeuvwxwOVCDHIEGXT0545-45-58 23:33:00 Test Item Value Reference Range Interpretation Comments Hct (test code = Hct) 46.1 36.0-48.0 [facility] HospitalAjthttxCSTQEVSYME2318-50-24 23:33:00 Test Item Value Reference Range Interpretation Comments Hgb (test code = Hgb) 15.9 12.0-16.0 [facility] HospitalBqbnpltIKHFEZEYAC5793-06-65 23:33:00 Test Item Value Reference Range Interpretation Comments RBC (test code = RBC) 4.61 4.20-5.40 [facility] HospitalDpcbdpiLBBFNAJWBE5297-18-22 23:33:00 Test Item Value Reference Range Interpretation Comments MCH (test code = MCH) 34.5 pg 27.0-31.0 [facility] HospitalPnmsbreNVPGZYSVCJ4761-98-53 23:33:00 Test Item Value Reference Range Interpretation Comments WBC (test code = WBC) 8.8 3.7-10.4 [facility] HospitalBkbtwasBNZWFNMPUM8328-15-79 23:33:00 Test Item Value Reference Range Interpretation Comments MPV (test code = MPV) 8.8 7.4-10.4 [facility] HospitalUmqydfzOVAHSSLVGB0863-72-80 23:33:00 Test Item Value Reference Range Interpretation Comments Platelet (test code = Platelet) 297 133-450 [facility] HospitalDmmzhzzQITUNZTKVM0817-16-52 23:33:00 Test Item Value Reference Range Interpretation Comments RDW (test code = RDW) 12.1 11.5-14.5 [facility] HospitalTpevbnrNXDUFWVBUQ8503-28-46 23:33:00 Test Item Value Reference Range Interpretation Comments Macrocyte (test code = 1+ *ABN*(07/16/18 5:33 Macrocyte) PM) [facility] HospitalHrzldyhLHEIHUVLAI3065-32-51 23:33:00 Test Item Value Reference Range Interpretation Comments Basophils # (test code 0.1 See_Comment [Aut omated message] The = Basophils #) system which generated this result tra nsmitted reference range : <=0.2. The reference r jase was not used to int erpret this result as normal/abnormal . [facility] HospitalDqonnitZXBKOOZZIN7648-16-41 23:33:00 Test Item Value Reference Range Interpretation Comments Eosinophils # (test code 0.7 See_Comment [A utomated message] The = Eosinophils #) system whic h generated this result tra nsmitted reference range : <=0.5. The reference r jase was not used to int erpret this result as normal/abnormal . [facility] HospitalSzlzldkBBHUQTWQVN6354-49-64 23:33:00 Test Item Value Reference Range Interpretation Comments Monocytes # (test code 0.4 See_Comment [Aut omated message] The = Monocytes #) system which generated this result tra nsmitted reference range : <=0.8. The reference r jase was not used to int erpret this result as normal/abnormal . [place] [address]-03-01 23:33:00 Test Item Value Reference Range Interpretation Comments Lymphocytes # (test code = Lymphocytes 2.3 1.0-5.5 #) [place] [address]-03-01 23:33:00 Test Item Value Reference Range Interpretation Comments Segs (test code = Segs) 60.5 45.0-75.0 [place] [address]-03-01 23:33:00 Test Item Value Reference Range Interpretation Comments Neutrophils # (test code = Neutrophils 5.3 1.5-8.1 #) [facility] HospitalKgyjxexLOFVIJIRFX6482-44-59 23:33:00 Test Item Value Reference Range Interpretation Comments Monocytes (test code = Monocytes) 4.9 2.0-12.0 [place] [address]-03-01 23:33:00 Test Item Value Reference Range Interpretation Comments Basophils (test code = 0.9 See_Comment [Aut omated message] The Basophils) system which ge nerated this result tra nsmitted reference range : <=1.0. The reference r jase was not used to int erpret this result as normal/abnormal . [facility] HospitalZvygsjzZUZLPSXMWZ8025-34-16 23:33:00 Test Item Value Reference Range Interpretation Comments Eosinophils (test code = 7.6 See_Comment [A utomated message] The Eosinophils) system which ge nerated this result tra nsmitted reference range : <=4.0. The reference r jase was not used to int erpret this result as normal/abnormal . [facility]SdkvesvUVPHQXCIVQ0400-99-26 23:33:00 Test Item Value Reference Range Interpretation Comments Lymphocytes (test code = Lymphocytes) 26.1 20.0-40.0 [facility] HospitalCOMPREHENSIVE METABOLIC [id number] 00:13:00 Test Item Value Reference Range Interpretation [...] ALKP) - XR HAND 3 + V [id number] 00:09:00 FAX: Eva Barreto [phone] [place]: St: REG Name: [facility] : 1990 Age/S: 27/F [address] Unit #: [id number] Loc: [place] [address] Phys: Ro Carter Acct: [id number] Dis Date: Status: REG ER PHONE #: [phone] Exam Date: 07/13/2018 2354 FAX #: [phone] Reason: SWELLING AFTER HAVING IV EXAMS: CPT CODE: [id number] XR HAND 3 + [place] [id number] AFTER HOURS SERVICE ON: 07/14/2018 12:08 AM Right Hand, 3 Views Location Code M12 History: SWELLING AFTER HAVING IV Findings: There is soft tissue swelling in the dorsum at the level of the metacarpals and carpals. There is no soft tissue emphysema. There is normal anatomic alignment. No fracture, dislocation or avul marty fragments are seen. Articular surfaces are within normal limits. Impression: Moderate dorsal soft tissue swelling. No soft tissue emphysema or osseous abnormality. at 0009 Reported and signed by: Valnecia Wood MD CC: Eva Sanchez DO Technologist: Andres Arguelles Trnscrd Date/Time/By: 07/14/2018 (0009) : By: [email or web address] PAGE 1 Signed Report FAX: Eva Barreto [phone] [place]: St: REG Name: [facility]ALLORY GOME[facility] : 1990 Age/S: 27/F [address] Unit #: [id number] Loc: [place] [address] Phys: Ro Carter Acct: [id number] Dis Date: Status: REG ER PHONE #: [phone] Exam Date: 07/13/2018 2359 FAX #: [phone] Reason: SWELLING AFTER HAVING IV EXAMS: CPT CODE: [id number] XR HAND 3 + V RT [id number] (Continued) Orig Print D/T: S: 07/14/2018 (0012) PAGE 2 Signed ReportCBC W/AUTO [id number] 00:00:00 Test Item Value Reference Range Interpretation [...] = BA#) 0.09 x10 3/uL 0.0-0.1 N [id number] 12:25:00 Test Item Value Reference Range Interpretation [...] 0.5-2.0 NG/ML are obtained. HGBA1C - GLYCOSYLATED [id number] 08:47:00 Test Item Value Reference Range Interpretation [...] with these hemo globin variants. BASIC METABOLIC [id number] 08:43:00 Test Item Value Reference Range Interpretation [...] code 8.3 mg/dL 8.4-10.2 L = CA) [id number] 08:43:00 Test Item Value Reference Range Interpretation Comments MAGNESIUM (test code = MAG) 1.7 mg/dL 1.6-2.3 N BASIC METABOLIC [id number] 08:42:00 Test Item Value Reference Range Interpretation [...] code 8.3 mg/dL 8.4-10.2 L = CA) [id number] 08:42:00 Test Item Value Reference Range Interpretation Comments MAGNESIUM (test code = MAG) mg/dL 1.6-2.3 LACTIC [id number] 08:42:00 Test Item Value Reference Range Interpretation Comments LACTIC ACID (test code = LACT) 1.9 mmol/L 0.7-2.0 N CBC W/AUTO [id number] 08:22:00 Test Item Value Reference Range Interpretation [...] = BA#) 0.08 x10 3/uL 0.0-0.1 N [id number] 07:16:00 Test Item Value Reference Range Interpretation Comments GLUBED (test code = GLUBED) 68 MG/DL 74-106 L [id number] 07:16:00 Test Item Value Reference Range Interpretation Comments GLUBED (test code = GLUBED) 71 MG/DL 74-106 L DRUGS OF ABUSE [id number] 03:42:00 Test Item Value Reference Range Interpretation Comments TRICYCLICS QL SQN (test NEGATIVE NEG TEST PERFORMED code = TRIUR) MANUALLY USING [employer] RAPIDTEST TCA.C UTOFF >/= 1000 NG/ML A [...] = PHENCU) UA RFLX MICR CULT IF [id number] 03:27:00 Test Item Value Reference Range Interpretation [...] = HCGQLU) NEGATIVE NEGATIVE DRUGS OF ABUSE [id number] 03:21:00 Test Item Value Reference Range Interpretation Comments TRICYCLICS QL SQN (test NEGATIVE NEG TEST PERFORMED code = TRIUR) MANUALLY USING [employer] RAPIDTEST TCA.C UTOFF >/= 1000 NG/ML A [...] code = PHENCU) - CT ABD PELVIS [id number] 02:46:00 FAX: Eva Barreto [phone] [place]: St: REG Name: MALLORY GOMEZ [facility] : 1990 Age/S: 27/F [address] Unit: [id number] Loc: [place] [address] Phys: Kathleen Napoles MD Acct: [id number] Dis Date: Status: REG ER PHONE #: [phone] Exam Date: 07/12/2018217 FAX #: [phone] Reason: abd pain, lactate, ams EXAMS: CPT CODE: [id number] CT ABD PELVIS W/CONT 53953 EXAM: - CT ABD PELVIS W/CONT HISTORY: [...] appendix is surgically absent. The colon is filledwith retained fecal matter throughout its length. There is no adenopathy or free fluid. There is no acute osseous abnormality. IMPRESSION: No significant abnormalities demonstrated. at 0246 Reported and signed by: Benjamin Machuca MD PAGE 1Signed Report (CONTINUED) FAX: Eva Barreto [phone] [place]: St: REG Name: MALLORY GOMEZ [facility] [place] : 1990 Age/S: 27/F [address] Unit: [id number] Loc: [place] [address] Phys: Kathleen Napoles MD Acct: [id number] Dis Date: Status: REG ER PHONE #: [phone] Exam Date: 07/12/2018217 FAX #: [phone] Reason: abd pain, lactate, ams EXAMS: CPT CODE: [id number] CT ABD PELVIS [id number] (Continued) CC: Eva Sanchez DO Technologist: Yumiko Capone Dt/Tm: 07/12/2018 (0246) [email or web address] Orig Print D/T: S: 07/12/2018 (0249 PAGE 2 Signed [id number] 02:35:00 Test Item Value Reference Range Interpretation Comments ACETAMINOPHEN (test code = ACET) <10 ug/mL 10-30 L [id number] 02:35:00 Test Item Value Reference Range Interpretation Comments SALICYLATE (test code < 1.0 mg/dL Negati ve <2.0 = NAVDEEP) mg/dLTherapeuti c Range <20 mg/dL [id number] 02:35:00 Test Item Value Reference Range Interpretation Comments ALCOHOL (test code = < 10 mg/dL <10 ~~~~~~ ~~~~~~~~~~~~~~~ ALC) ~~~~~~~~~~~~~~~ ~~~~~~~ ~~~~~~~ RESULTS ARE TO BE USED FOR MED ICAL PURPOSES ONLY.F OR LEGAL PURPOSES THE SPECIMEN MUST B E COLLECTED BY A CHAINOF CUSTODY. LEGAL TESTING IS NOT PERFORME D BY THIS FACILITY. ~~~~~~~~~~~~~~~ ~~~~~~~ ~~~~~~~~~~~~~~~ ~~~~~~~ ~~~~~~ LACTIC ACID [id number] 02:12:00 Test Item Value Reference Range Interpretation Comments LACTIC ACID POC (test code = 0.98 mmol/L 0.7-2.0 N LACTP) [id number] 02:10:00 Test Item Value Reference Range Interpretation Comments GLUBED (test code = GLUBED) 71 MG/DL 74-106 L [id number] 02:10:00 Test Item Value Reference Range Interpretation Comments GLUBED (test code = GLUBED) 83 MG/DL 74-106 N [id number] 02:10:00 Test Item Value Reference Range Interpretation Comments GLUBED (test code = 530 MG/DL 74-106 HH Read Mathew k to GLUBED) A VENOUS SPECIMEN SHOULD BE ORDERED FOR GLU COSE VERIFICATION IF MEDICALLY NECESSARY. HCG [id number] 01:29:00 Test Item Value Reference Range Interpretation [...] hours toconfirm . - XR ABDOMEN 1 [id number] 01:09:00 FAX: Eva Barreto [phone] [place]: DONNA St: REG Name: MALLORY GOMEZ : 1990 Age/S: 27/F [address] Unit #: [id number] Loc: [place] [address] Phys: Kathleen Napoles MD Acct: [id number] Dis Date: Status: REG ER PHONE #: [phone] Exam Date: 07/12/201844 FAX #: [phone]: abd distension EXAMS: CPT CODE: [id number] XR ABDOMEN 1 V 75617 EXAM: ABDOMINAL SERIES HISTORY: abd distension TECHNIQUE: [...] CC: Eva Sanchez DO Technologist: Andres Arguelles Trnscrd Date/Time/By: 07/12/2018 (0109) : By: [email or web address] PAGE 1 Signed Report FAX: Eva Barreto [phone] [place]: St: REG Name: MALLORY GOMEZ : 1990 Age/S: 27/F [address] Unit #: [id number] Loc: [place] [address] Phys: Kathleen Napoles MD Acct: [id number] Dis Date: Status: REG ER PHONE #: [phone] Exam Date: 07/12/201844 FAX #: [phone] Reason: abd distension EXAMS: CPT CODE: [id number] XR ABDOMEN1 V 91797 (Continued) Orig Print D/T: S: 07/12/2018 (0112) PAGE 2 Signed ReportBASIC METABOLIC [id number] 00:44:00 Test Item Value Reference Range Interpretation [...] Critical Value = GLU) reported toFirs t Name:[id number] [place] st Name:RESULTS RE AD BACK AND [...] mg/dL 8.4-10.2 N = CA) LIVER FUNCTION [id number] 00:44:00 Test Item Value Reference Range Interpretation [...] U/L 38-126 N (test code = ALKP) [id number] 00:44:00 Test Item Value Reference Range Interpretation Comments PHOSPHOROUS (test code = PHOS) 3.7 mg/dL 2.5-4.5 N [id number] 00:44:00 Test Item Value Reference Range Interpretation Comments LIPASE (test code = LIP) 202 U/L 23-300 N [id number] 00:44:00 Test Item Value Reference Range Interpretation Comments MAGNESIUM (test code = MAG) 1.8 mg/dL 1.6-2.3 N ACETONE [id number] 00:44:00 Test Item Value Reference Range Interpretation Comments ACETONE QUAL NOT APPLICABLE NEGATIVE ACETEST DISCO NTINUED. (test code = BETA-HYDROXYBUT ERATE ACETNQL) TESTING ISRECOM MENDED FOR THE DETECTI ON OF KETOACIDOSIS. LACTIC ACID [id number] 00:25:00 Test Item Value Reference Range Interpretation [...] between 0.5-2.0 NG/ML are obtained. BASIC METABOLIC [id number] 00:09:00 Test Item Value Reference Range Interpretation [...] Critical Value = GLU) reported toFirs t Name:[id number] [place] st Name:RESULTS RE AD BACK AND RYAN [...] mg/dL 8.4-10.2 N = CA) LIVER FUNCTION [id number] 00:09:00 Test Item Value Reference Range Interpretation [...] U/L 38-126 N (test code = ALKP) [id number] 00:09:00 Test Item Value Reference Range Interpretation Comments PHOSPHOROUS (test code = PHOS) 3.7 mg/dL 2.5-4.5 N [id number] 00:09:00 Test Item Value Reference Range Interpretation Comments LIPASE (test code = LIP) 202 U/L 23-300 N [id number] 00:09:00 Test Item Value Reference Range Interpretation Comments MAGNESIUM (test code = MAG) 1.8 mg/dL 1.6-2.3 N ACETONE [id number] 00:09:00 Test Item Value Reference Range Interpretation Comments ACETONE QUAL (test code = ACETNQL) NEGATIVE - CT HEAD/BRAIN W/O [id number] 00:06:00 [place]: St: PRE -- Name: MALLORY GOMEZ : 1990 Age/S: 27/F [address] Unit: [id number] Loc: [place] [address] Phys: Kathleen Napoles MD Acct: [id number] Dis Date: Status: PRE ER PHONE #: [phone] Exam Date: 07/11/2018 5936 FAX #: [phone] Reason: AMS EXAMS: CPT CODE: [id number] CT HEAD/BRAIN W/O CONT 09213 Exam: CT head without contrast. Location: F6 [...] CC: Technologist: Yumiko Capone Dt/Tm: 07/12/2018 (0006) Elen Orig Print D/T: S: 07/12/2018 (0009 PAGE 1 Signed Report- XR CHEST 1 V 2018-07-12 00:06:00 [place]: St: PRE -- Name: MALLORY GOMEZ : 1990 Age/S: 27/F [address] Unit #: [id number] Loc: [place] [address] Phys: Kathleen Napoles MD Acct: [id number] Dis Date: Status: PRE ER PHONE #:[phone] Exam Date: 07/11/2018 2348 FAX #: [phone] Reason: AMS EXAMS: CPT CODE: [id number] XR CHEST 1 V 70508 AP VIEW OF THE CHEST LOCATION: R16 CLINICAL HISTORY: Altered mental status. COMPARISON: Chest radiograph 08/15/2014. FINDINGS: The cardiomediastinal shadow is within normal limits. The lungs are clear. No pleural fluids. No acute bony abnormality is found. IMPRESSION: Unremarkable rad iographic study of the chest. at 0006 Reported and signed by: Alice Ortiz CC: Technologist: Andres Arguelles Date/Time/By: 07/12/2018 (0006) : By: Ramon.JSL PAGE 1 Signed Report [place]: St: PRE Name: MALLORY GOMEZ [facility] : 1990 Age/S: 27/F [address] Unit #: [id number] Loc: [place] [address] Phys: Kathleen Napoles MD Acct: [id number] Dis Date: Status: PRE ER PHONE #: [phone] Exam Date: 07/11/2018 2348 FAX #: [phone] Reason: AMS EXAMS: CPT CODE: [id number] XR CHEST 1 V 09676 (Continued) Orig Print D/T: S: 07/12/2018 (0009) PAGE 2 Signed ReportCLAY LENZ2019-02-24 23:53:00 Test Item Value Reference Range Interpretation [...] similar methodology is used. POC ARTERIAL BLOOD [id number] 23:30:00 Test Item Value Reference Range Interpretation Comments POC ARTERIAL BLOOD GAS PH (test 7.410 7.35-7.45 N code = POCPHA) POC ARTERIAL BLOOD GAS PCO2 (test 32.8 mmHg 35-45 L code = MYBJKF6L) POC ARTERIAL BLOOD GAS PO2 (test 108 mmHg 80-90 H code = NOCUH0M) POC HCO3 ARTERIAL (test code = 20.8 mmol/L 22.0-24.0 L PLLYAR5Q) POC BASE EXCESS (test code = -4 mmol/L -2.0-2.0 L POCBEA) POC O2 SATURATION (test code = 98 % 95-98 N POCO2S) ABG DELIVERY (test code = CANDICE) Room Air ABG SITE (test code = SITEA) R Rad ALLENS TEST (test code = ALLENS) Pass CHEM [id number] 14:59:00 Test Item Value Reference Range Interpretation Comments eGFR (test code = eGFR) 109 [facility] [id number] 14:59:00 Test Item Value Reference Range Interpretation Comments Alk Phos (test code = Alk Phos) 87 39-136 [facility] [id number] 14:59:00 Test Item Value Reference Range Interpretation Comments Bili Total (test code = Bili Total) 0.4 0.2-1.3 [facility] [id number] 14:59:00 Test Item Value Reference Range Interpretation Comments AST (test code = AST) 12 See_Comment [Auto mated message] The system which ge nerated this result transmit owen reference range : <=37. The reference range was not used to interpr et this result as fredi l/abnormal. [facility]2019-01-17 14:59:00 Test Item Value Reference Range Interpretation Comments Calcium Lvl (test code = Calcium Lvl) 9.1 8.5-10.5 [facility]2019-01-17 14:59:00 Test Item Value Reference Range Interpretation Comments ALT (test code = ALT) 21 See_Comment [Auto mated message] The system which ge nerated this result transmit owen reference range : <=65. The reference range was not used to interpr et this result as frdei l/abnormal. [facility]2019-01-17 14:59:00 Test Item Value Reference Range Interpretation Comments Albumin Lvl (test code = Albumin Lvl) 3.7 3.5-5.0 [facility]2019-01-17 14:59:00 Test Item Value Reference Range Interpretation Comments Total Protein (test code = Total 7.4 6.4-8.4 Protein) [facility]2019-01-17 14:59:00 Test Item Value Reference Range Interpretation Comments Creatinine Lvl (test code = Creatinine 0.75 0.50-1.40 Lvl) [facility]2019-01-17 14:59:00 Test Item Value Reference Range Interpretation Comments BUN (test code = BUN) 15 7-22 [facility]2019-01-17 14:59:00 Test Item Value Reference Range Interpretation Comments Potassium Lvl (test code = Potassium 4.5 3.5-5.1 Lvl) [facility]2019-01-17 14:59:00 Test Item Value Reference Range Interpretation Comments Sodium Lvl (test code = Sodium Lvl) 132 135-145 [facility]2019-01-17 14:59:00 Test Item Value Reference Range Interpretation Comments CO2 (test code = CO2) 20 24-32 [facility]2019-01-17 14:59:00 Test Item Value Reference Range Interpretation Comments Chloride Lvl (test code = Chloride Lvl) 103 95-109 [facility]2019-01-17 14:59:00 Test Item Value Reference Range Interpretation Comments Glucose Lvl (test code = Glucose Lvl) 388 70-99 [facility]2019-01-17 14:59:00 Test Item Value Reference Range Interpretation Comments A/G Ratio (test code = A/G Ratio) 1.0 1 0.7-1.6 [facility]2019-01-17 14:59:00 Test Item Value Reference Range Interpretation Comments Globulin (test code = Globulin) 3.7 2.7-4.2 [facility]2019-01-17 14:59:00 Test Item Value Reference Range Interpretation Comments B/C Ratio (test code = B/C Ratio) 20 1 6-25 [facility]2019-01-17 14:59:00 Test Item Value Reference Range Interpretation Comments AGAP (test code = AGAP) 13.5 10.0-20.0 [place] [id number] 14:59:00 Test Item Value Reference Range Interpretation Comments S Preg (test code = S Negative *NA*(06/03/18 Preg) 8:59 AM) [facility] HospitalZturlvjHODKVGJZMC5184-04-19 14:59:00 Test Item Value Reference Range Interpretation Comments MPV (test code = MPV) 9.1 7.4-10.4 [facility] HospitalCxgvyjeWIVNSNOMBV2700-38-06 14:59:00 Test Item Value Reference Range Interpretation Comments RDW (test code = RDW) 11.9 11.5-14.5 [facility] HospitalSuymlhtGUDSYEYYHI8643-05-04 14:59:00 Test Item Value Reference Range Interpretation Comments MCHC (test code = MCHC) 34.6 32.0-36.0 [facility] HospitalIviygafWUTQRXVAEH9476-92-99 14:59:00 Test Item Value Reference Range Interpretation Comments Platelet (test code = Platelet) 216 133-450 [facility] HospitalMvoiuicPLBFRTSEZB7851-85-41 14:59:00 Test Item Value Reference Range Interpretation Comments RBC (test code = RBC) 4.03 4.20-5.40 [facility] HospitalZnuwterSQUCJKUVAX3705-21-77 14:59:00 Test Item Value Reference Range Interpretation Comments WBC (test code = WBC) 5.8 3.7-10.4 [facility] HospitalMjbnqdqIUNKMXWEFB3014-33-26 14:59:00 Test Item Value Reference Range Interpretation Comments Hgb (test code = Hgb) 14.2 12.0-16.0 [facility] HospitalFvgymtfHAEFYJPUES9388-21-62 14:59:00 Test Item Value Reference Range Interpretation Comments Hct (test code = Hct) 40.9 36.0-48.0 [facility] HospitalZnwyprcCBDPEAZODW1060-40-58 14:59:00 Test Item Value Reference Range Interpretation Comments MCH (test code = MCH) 35.1 pg 27.0-31.0 [facility] HospitalHhjtvzsOTOCIUCKSU2823-66-44 14:59:00 Test Item Value Reference Range Interpretation Comments MCV (test code = MCV) 101.5 80.0-98.0 [facility] HospitalThmzhhnVOBZJYHXEN6494-55-36 14:59:00 Test Item Value Reference Range Interpretation Comments Segs (test code = Segs) 50.9 45.0-75.0 [facility] HospitalCpbwdczMBYZOSODFJ5353-37-13 14:59:00 Test Item Value Reference Range Interpretation Comments Lymphocytes (test code = Lymphocytes) 31.2 20.0-40.0 [facility] HospitalRxtaohcISPUNTXNHY3074-35-31 14:59:00 Test Item Value Reference Range Interpretation Comments Monocytes (test code = Monocytes) 6.0 2.0-12.0 [facility] HospitalYmtxyhcANHNEPFEVY4242-12-49 14:59:00 Test Item Value Reference Range Interpretation Comments Basophils (test code = 1.4 See_Comment [Aut omated message] The Basophils) system which ge nerated this result tra nsmitted reference range : <=1.0. The reference r jase was not used to int erpret this result as normal/abnormal . [facility] HospitalLxufqpdDGXLGJMJEG6792-86-56 14:59:00 Test Item Value Reference Range Interpretation Comments Eosinophils (test code = 10.5 See_Comment [A utomated message] The Eosinophils) system which ge nerated this result tra nsmitted reference range : <=4.0. The reference r jase was not used to int erpret this result as normal/abnormal . [facility] HospitalZpywjaqJVWAAFVSCC8635-73-70 14:59:00 Test Item Value Reference Range Interpretation Comments Macrocyte (test code = 1+ *ABN*(06/03/18 Macrocyte) 8:59 AM) [facility] HospitalWegiqdrXLQCHCRDZC4418-00-78 14:59:00 Test Item Value Reference Range Interpretation Comments Eosinophils # (test code 0.6 See_Comment [A utomated message] The = Eosinophils #) system whic h generated this result tra nsmitted reference range : <=0.5. The reference r jase was not used to int erpret this result as normal/abnormal . [facility] HospitalKtfppjpYDICOBLZMN2042-61-85 14:59:00 Test Item Value Reference Range Interpretation Comments Neutrophils # (test code = Neutrophils 3.0 1.5-8.1 #) [facility] HospitalOqqitgoBWHSXFIMZC4296-66-89 14:59:00 Test Item Value Reference Range Interpretation Comments Monocytes # (test code 0.3 See_Comment [Aut omated message] The = Monocytes #) system which generated this result tra nsmitted reference range : <=0.8. The reference r jase was not used to int erpret this result as normal/abnormal . [facility] HospitalQsfvdwiVTUYTTCNKO2384-99-84 14:59:00 Test Item Value Reference Range Interpretation Comments Lymphocytes # (test code = Lymphocytes 1.8 1.0-5.5 #) [facility] HospitalXntdyxjMOGTPXDMEQ6100-85-67 14:59:00 Test Item Value Reference Range Interpretation Comments Basophils # (test code 0.1 See_Comment [Aut omated message] The = Basophils #) system which generated this result tra nsmitted reference range : <=0.2. The reference r jase was not used to int erpret this result as normal/abnormal . [facility]2019-01-17 14:59:00 Test Item Value Reference Range Interpretation Comments eGFR (test code = eGFR) 109 [facility]2019-01-17 14:59:00 Test Item Value Reference Range Interpretation Comments Alk Phos (test code = Alk Phos) 87 39-136 [facility]2019-01-17 14:59:00 Test Item Value Reference Range Interpretation Comments Bili Total (test code = Bili Total) 0.4 0.2-1.3 [facility]2019-01-17 14:59:00 Test Item Value Reference Range Interpretation Comments AST (test code = AST) 12 See_Comment [Auto mated message] The system which ge nerated this result transmit owen reference range : <=37. The reference range was not used to interpr et this result as fredi l/abnormal. [facility]2019-01-17 14:59:00 Test Item Value Reference Range Interpretation Comments Calcium Lvl (test code = Calcium Lvl) 9.1 8.5-10.5 [facility]2019-01-17 14:59:00 Test Item Value Reference Range Interpretation Comments ALT (test code = ALT) 21 See_Comment [Auto mated message] The system which ge nerated this result transmit owen reference range : <=65. The reference range was not used to interpr et this result as fredi l/abnormal. [facility]2019-01-17 14:59:00 Test Item Value Reference Range Interpretation Comments Albumin Lvl (test code = Albumin Lvl) 3.7 3.5-5.0 [facility]2019-01-17 14:59:00 Test Item Value Reference Range Interpretation Comments Total Protein (test code = Total 7.4 6.4-8.4 Protein) [facility]2019-01-17 14:59:00 Test Item Value Reference Range Interpretation Comments Creatinine Lvl (test code = Creatinine 0.75 0.50-1.40 Lvl) [facility]2019-01-17 14:59:00 Test Item Value Reference Range Interpretation Comments BUN (test code = BUN) 15 7-22 [facility]2019-01-17 14:59:00 Test Item Value Reference Range Interpretation Comments Potassium Lvl (test code = Potassium 4.5 3.5-5.1 Lvl) [facility]2019-01-17 14:59:00 Test Item Value Reference Range Interpretation Comments Sodium Lvl (test code = Sodium Lvl) 132 135-145 [facility]2019-01-17 14:59:00 Test Item Value Reference Range Interpretation Comments CO2 (test code = CO2) 20 24-32 [facility]2019-01-17 14:59:00 Test Item Value Reference Range Interpretation Comments Chloride Lvl (test code = Chloride Lvl) 103 95-109 [facility]2019-01-17 14:59:00 Test Item Value Reference Range Interpretation Comments Glucose Lvl (test code = Glucose Lvl) 388 70-99 [facility]2019-01-17 14:59:00 Test Item Value Reference Range Interpretation Comments A/G Ratio (test code = A/G Ratio) 1.0 1 0.7-1.6 [facility]2019-01-17 14:59:00 Test Item Value Reference Range Interpretation Comments Globulin (test code = Globulin) 3.7 2.7-4.2 [facility] FUKGF4807-41-91 14:59:00 Test Item Value Reference Range Interpretation Comments B/C Ratio (test code = B/C Ratio) 20 1 6-25 [facility] GVJDN1430-54-29 14:59:00 Test Item Value Reference Range Interpretation Comments AGAP (test code = AGAP) 13.5 10.0-20.0 [facility]ZbpesbrROTESHREIPUTT2414-39-36 14:59:00 Test Item Value Reference Range Interpretation Comments S Preg (test code = S Negative *NA*(06/03/18 Preg) 8:59 AM) [facility] HospitalVgnzbbiGOMOLWBMQS6742-26-32 14:59:00 Test Item Value Reference Range Interpretation Comments MPV (test code = MPV) 9.1 7.4-10.4 [facility] HospitalEogjhtuVHGAWAEKTT4580-32-30 14:59:00 Test Item Value Reference Range Interpretation Comments RDW (test code = RDW) 11.9 11.5-14.5 [facility] HospitalTtsuzcbPKCQRSNTBY7244-35-86 14:59:00 Test Item Value Reference Range Interpretation Comments MCHC (test code = MCHC) 34.6 32.0-36.0 [facility] HospitalTutthpzFQXSEXMGHH2927-22-57 14:59:00 Test Item Value Reference Range Interpretation Comments Platelet (test code = Platelet) 216 133-450 [facility] HospitalWfcobwtVCQSDMXVJK2152-55-35 14:59:00 Test Item Value Reference Range Interpretation Comments RBC (test code = RBC) 4.03 4.20-5.40 [facility] HospitalTmngdvpQBYHMTMQDE3969-79-00 14:59:00 Test Item Value Reference Range Interpretation Comments WBC (test code = WBC) 5.8 3.7-10.4 [facility] HospitalZmavauhAOAEWOEVTX9605-07-12 14:59:00 Test Item Value Reference Range Interpretation Comments Hgb (test code = Hgb) 14.2 12.0-16.0 [facility] HospitalJddafssIYPSAYXZVM2697-88-02 14:59:00 Test Item Value Reference Range Interpretation Comments Hct (test code = Hct) 40.9 36.0-48.0 [facility] HospitalMwyqsznMAHKLQXKTZ5251-54-80 14:59:00 Test Item Value Reference Range Interpretation Comments MCH (test code = MCH) 35.1 pg 27.0-31.0 [facility] HospitalAlgdsrlEQDQWRBFSG7830-63-16 14:59:00 Test Item Value Reference Range Interpretation Comments MCV (test code = MCV) 101.5 80.0-98.0 [facility] HospitalBzcpwslYPANUOTAQQ3623-53-08 14:59:00 Test Item Value Reference Range Interpretation Comments Segs (test code = Segs) 50.9 45.0-75.0 [facility] HospitalZzrclraHOGFPTIWAU3395-74-27 14:59:00 Test Item Value Reference Range Interpretation Comments Lymphocytes (test code = Lymphocytes) 31.2 20.0-40.0 [facility] HospitalMzvaahtDZCAARWKFE7275-15-76 14:59:00 Test Item Value Reference Range Interpretation Comments Monocytes (test code = Monocytes) 6.0 2.0-12.0 [facility] HospitalUfohfmeCPPJLWGWFV8091-10-19 14:59:00 Test Item Value Reference Range Interpretation Comments Basophils (test code = 1.4 See_Comment [Aut omated message] The Basophils) system which ge nerated this result tra nsmitted reference range : <=1.0. The reference r jase was not used to int erpret this result as normal/abnormal . [facility] HospitalKyfnmelKVQPUWOYQL0852-64-46 14:59:00 Test Item Value Reference Range Interpretation Comments Eosinophils (test code = 10.5 See_Comment [A utomated message] The Eosinophils) system which ge nerated this result tra nsmitted reference range : <=4.0. The reference r jase was not used to int erpret this result as normal/abnormal . [facility] HospitalDpingqySHLOAVEXTV8063-51-05 14:59:00 Test Item Value Reference Range Interpretation Comments Macrocyte (test code = 1+ *ABN*(06/03/18 Macrocyte) 8:59 AM) [facility] HospitalVssrbmlIUNWRRGGNP1423-22-28 14:59:00 Test Item Value Reference Range Interpretation Comments Eosinophils # (test code 0.6 See_Comment [A utomated message] The = Eosinophils #) system whic h generated this result tra nsmitted reference range : <=0.5. The reference r jase was not used to int erpret this result as normal/abnormal . [facility] HospitalOtbocurUCBKTRUZUY2829-67-13 14:59:00 Test Item Value Reference Range Interpretation Comments Neutrophils # (test code = Neutrophils 3.0 1.5-8.1 #) [facility] HospitalYfcoebvHRPZYDWYRC0451-95-60 14:59:00 Test Item Value Reference Range Interpretation Comments Monocytes # (test code 0.3 See_Comment [Aut omated message] The = Monocytes #) system which generated this result tra nsmitted reference range : <=0.8. The reference r jase was not used to int erpret this result as normal/abnormal . [id number] 14:59:00 Test Item Value Reference Range Interpretation Comments Lymphocytes # (test code = Lymphocytes 1.8 1.0-5.5 #) [facility] HospitalWvnboynKPKSEYJVIH1838-23-15 14:59:00 Test Item Value Reference Range Interpretation Comments Basophils # (test code 0.1 See_Comment [Aut omated message] The = Basophils #) system which generated this result tra nsmitted reference range : <=0.2. The reference r jase was not used to int erpret this result as normal/abnormal . [facility]2019-01-17 14:59:00 Test Item Value Reference Range Interpretation Comments eGFR (test code = eGFR) 109 [facility]2019-01-17 14:59:00 Test Item Value Reference Range Interpretation Comments Alk Phos (test code = Alk Phos) 87 39-136 [facility]2019-01-17 14:59:00 Test Item Value Reference Range Interpretation Comments Bili Total (test code = Bili Total) 0.4 0.2-1.3 [facility]2019-01-17 14:59:00 Test Item Value Reference Range Interpretation Comments AST (test code = AST) 12 See_Comment [Auto mated message] The system which ge nerated this result transmit owen reference range : <=37. The reference range was not used to interpr et this result as fredi l/abnormal. [facility]2019-01-17 14:59:00 Test Item Value Reference Range Interpretation Comments Calcium Lvl (test code = Calcium Lvl) 9.1 8.5-10.5 [facility]2019-01-17 14:59:00 Test Item Value Reference Range Interpretation Comments ALT (test code = ALT) 21 See_Comment [Auto mated message] The system which ge nerated this result transmit owen reference range : <=65. The reference range was not used to interpr et this result as fredi l/abnormal. [facility]2019-01-17 14:59:00 Test Item Value Reference Range Interpretation Comments Albumin Lvl (test code = Albumin Lvl) 3.7 3.5-5.0 [facility]2019-01-17 14:59:00 Test Item Value Reference Range Interpretation Comments Total Protein (test code = Total 7.4 6.4-8.4 Protein) [facility]2019-01-17 14:59:00 Test Item Value Reference Range Interpretation Comments Creatinine Lvl (test code = Creatinine 0.75 0.50-1.40 Lvl) [facility]2019-01-17 14:59:00 Test Item Value Reference Range Interpretation Comments BUN (test code = BUN) 15 7-22 [facility]2019-01-17 14:59:00 Test Item Value Reference Range Interpretation Comments Potassium Lvl (test code = Potassium 4.5 3.5-5.1 Lvl) [facility]2019-01-17 14:59:00 Test Item Value Reference Range Interpretation Comments Sodium Lvl (test code = Sodium Lvl) 132 135-145 [facility]2019-01-17 14:59:00 Test Item Value Reference Range Interpretation Comments CO2 (test code = CO2) 20 24-32 [facility]2019-01-17 14:59:00 Test Item Value Reference Range Interpretation Comments Chloride Lvl (test code = Chloride Lvl) 103 95-109 [facility]2019-01-17 14:59:00 Test Item Value Reference Range Interpretation Comments Glucose Lvl (test code = Glucose Lvl) 388 70-99 [facility]2019-01-17 14:59:00 Test Item Value Reference Range Interpretation Comments A/G Ratio (test code = A/G Ratio) 1.0 1 0.7-1.6 [facility]2019-01-17 14:59:00 Test Item Value Reference Range Interpretation Comments Globulin (test code = Globulin) 3.7 2.7-4.2 [facility]2019-01-17 14:59:00 Test Item Value Reference Range Interpretation Comments B/C Ratio (test code = B/C Ratio) 20 1 6-25 [facility] [id number] 14:59:00 Test Item Value Reference Range Interpretation Comments AGAP (test code = AGAP) 13.5 10.0-20.0 [facility] HospitalWybyzxzKPGCDIBCVOJIV4398-15-53 14:59:00 Test Item Value Reference Range Interpretation Comments S Preg (test code = S Negative *NA*(06/03/18 Preg) 8:59 AM) [facility] HospitalSzvhwwrPCJSHTJPRK0760-40-46 14:59:00 Test Item Value Reference Range Interpretation Comments MPV (test code = MPV) 9.1 7.4-10.4 [facility] HospitalPzuklcsKVXAAQSIBU8610-23-47 14:59:00 Test Item Value Reference Range Interpretation Comments RDW (test code = RDW) 11.9 11.5-14.5 [facility] HospitalJwytawzZQBHJBIOKI2881-26-31 14:59:00 Test Item Value Reference Range Interpretation Comments MCHC (test code = MCHC) 34.6 32.0-36.0 [facility] HospitalUljvhhlCTPHCECABK5611-44-03 14:59:00 Test Item Value Reference Range Interpretation Comments Platelet (test code = Platelet) 216 133-450 [facility] HospitalUirhzwcSCVAYEHKWE0057-19-45 14:59:00 Test Item Value Reference Range Interpretation Comments RBC (test code = RBC) 4.03 4.20-5.40 [facility] HospitalMjwvchvNHNSMWGECB8948-68-29 14:59:00 Test Item Value Reference Range Interpretation Comments WBC (test code = WBC) 5.8 3.7-10.4 [facility] Hospit[id number] 14:59:00 Test Item Value Reference Range Interpretation Comments Hgb (test code = Hgb) 14.2 12.0-16.0 [facility] H[id number] 14:59:00 Test Item Value Reference Range Interpretation Comments Hct (test code = Hct) 40.9 36.0-48.0 [facility] HospitalCikcrncVUIAINUSOQ4134-73-79 14:59:00 Test Item Value Reference Range Interpretation Comments MCH (test code = MCH) 35.1 pg 27.0-31.0 [facility] HospitalQisweqoARYNKVLVZM9382-92-48 14:59:00 Test Item Value Reference Range Interpretation Comments MCV (test code = MCV) 101.5 80.0-98.0 [facility] HospitalMadfktnSPRJGZLTAG9665-31-11 14:59:00 Test Item Value Reference Range Interpretation Comments Segs (test code = Segs) 50.9 45.0-75.0 [facility] HospitalRwgxfaeCPEDXZQWUU4816-40-84 14:59:00 Test Item Value Reference Range Interpretation Comments Lymphocytes (test code = Lymphocytes) 31.2 20.0-40.0 [facility] HospitalUfeivqdFOKZFVSVZJ9508-15-82 14:59:00 Test Item Value Reference Range Interpretation Comments Monocytes (test code = Monocytes) 6.0 2.0-12.0 [facility] HospitalCdvpesaENRGJITHHB6867-74-10 14:59:00 Test Item Value Reference Range Interpretation Comments Basophils (test code = 1.4 See_Comment [Aut omated message] The Basophils) system which ge nerated this result tra nsmitted reference range : <=1.0. The reference r jase was not used to int erpret this result as normal/abnormal . [facility] HospitalDfcgyecMZJRFUDWLT0590-29-07 14:59:00 Test Item Value Reference Range Interpretation Comments Eosinophils (test code = 10.5 See_Comment [A utomated message] The Eosinophils) system which ge nerated this result tra nsmitted reference range : <=4.0. The reference r jase was not used to int erpret this result as normal/abnormal . [facility] HospitalYrktpyuZLJUBSBPQF6925-43-33 14:59:00 Test Item Value Reference Range Interpretation Comments Macrocyte (test code = 1+ *ABN*(06/03/18 Macrocyte) 8:59 AM) [facility] HospitalSdmtmryTJMUEBWWLE9034-61-13 14:59:00 Test Item Value Reference Range Interpretation Comments Eosinophils # (test code 0.6 See_Comment [A utomated message] The = Eosinophils #) system whic h generated this result tra nsmitted reference range : <=0.5. The reference r jase was not used to int erpret this result as normal/abnormal . [facility] HospitalJonaohyZTMIPSRREN4740-45-52 14:59:00 Test Item Value Reference Range Interpretation Comments Neutrophils # (test code = Neutrophils 3.0 1.5-8.1 #) [facility] HospitalOmuhnsyPJRMTCSXDU7231-89-50 14:59:00 Test Item Value Reference Range Interpretation Comments Monocytes # (test code 0.3 See_Comment [Aut omated message] The = Monocytes #) system which generated this result tra nsmitted reference range : <=0.8. The reference r jase was not used to int erpret this result as normal/abnormal . [facility] HospitalPustywvEFFDBHWKQV5944-88-37 14:59:00 Test Item Value Reference Range Interpretation Comments Lymphocytes # (test code = Lymphocytes 1.8 1.0-5.5 #) [facility] HospitalCfrnbepBFLLLVRWGV3458-91-62 14:59:00 Test Item Value Reference Range Interpretation Comments Basophils # (test code 0.1 See_Comment [Aut omated message] The = Basophils #) system which generated this result tra nsmitted reference range : <=0.2. The reference r jase was not used to int erpret this result as normal/abnormal . [facility] AND [id number] 10:05:00 Test Item Value Reference Range Interpretation Comments UA WBC (test code = no gt See_Comment [Automa owen message] The UA WBC) system which ge nerated this result transmit owen reference range : <=5. The reference range was not used to interpr et this result as fredi l/abnormal. [facility] AND [id number] 10:05:00 Test Item Value Reference Range Interpretation Comments UA RBC (test code = 1 See_Comment [Automa owen message] The UA RBC) system which ge nerated this result transmit owen reference range : <=2. The reference range was not used to interpr et this result as fredi l/abnormal. [facility] AND [id number] 10:05:00 Test Item Value Reference Range Interpretation Comments UA Sq Epi (test code = UA Sq Occasional /LPF Epi) [facility] AND [id number] 10:05:00 Test Item Value Reference Range Interpretation Comments UA Bacteria (test code = UA Occasional /HPF Bacteria) [facility] AND [id number] 10:05:00 Test Item Value Reference Range Interpretation Comments UA Blood (test code = Negative (04/02/18 4:05 UA Blood) AM) [facility] AND [id number] 10:05:00 Test Item Value Reference Range Interpretation Comments UA Bili (test code = Negative *NA*(04/02/18 UA Bili) 4:05 AM) [facility] AND [id number] 10:05:00 Test Item Value Reference Range Interpretation Comments UA Protein (test code Negative (04/02/18 4:05 = UA Protein) AM) [facility] AND [id number] 10:05:00 Test Item Value Reference Range Interpretation Comments UA Ketones (test code Negative *NA*(04/02/18 = UA Ketones) 4:05 AM) [facility] AND [id number] 10:05:00 Test Item Value Reference Range Interpretation Comments UA Glucose (test code = UA >=1000 mg/dL Glucose) [facility] AND [id number] 10:05:00 Test Item Value Reference Range Interpretation Comments UA Nitrite (test code Negative (04/02/18 4:05 = UA Nitrite) AM) [facility] AND [id number] 10:05:00 Test Item Value Reference Range Interpretation Comments UA Urobilinogen (test code = UA 0.2 0.1-1.0 Urobilinogen) [facility] AND [id number] 10:05:00 Test Item Value Reference Range Interpretation Comments UA Leuk Est (test Negative (04/02/18 4:05 code = UA Leuk Est) AM) [facility] AND [id number] 10:05:00 Test Item Value Reference Range Interpretation Comments UA pH (test code = UA pH) 6.5 1 5.0-8.0 [facility] AND [id number] 10:05:00 Test Item Value Reference Range Interpretation Comments UA Spec Grav (test *NA*(04/02/18 4:05 AM) code = UA Spec Grav) [facility] AND [id number] 10:05:00 Test Item Value Reference Range Interpretation Comments UA Color (test code = UA Color) STRAW [facility] AND [id number] 10:05:00 Test Item Value Reference Range Interpretation Comments UA Turbidity (test code = Clear (04/02/18 4:05 UA Turbidity) AM) [facility] AND [id number] 10:05:00 Test Item Value Reference Range Interpretation Comments UA WBC (test code = no gt See_Comment [Automa owen message] The UA WBC) system which ge nerated this result transmit owen reference range : <=5. The reference range was not used to interpr et this result as fredi l/abnormal. [facility] AND [id number] 10:05:00 Test Item Value Reference Range Interpretation Comments UA RBC (test code = 1 See_Comment [Automa owen message] The UA RBC) system which ge nerated this result transmit owen reference range : <=2. The reference range was not used to interpr et this result as fredi l/abnormal. [facility] AND [id number] 10:05:00 Test Item Value Reference Range Interpretation Comments UA Sq Epi (test code = UA Sq Occasional /LPF Epi) [facility] AND [id number] 10:05:00 Test Item Value Reference Range Interpretation Comments UA Bacteria (test code = UA Occasional /HPF Bacteria) [facility] AND [id number] 10:05:00 Test Item Value Reference Range Interpretation Comments UA Blood (test code = Negative (04/02/18 4:05 UA Blood) AM) [facility] AND [id number] 10:05:00 Test Item Value Reference Range Interpretation Comments UA Bili (test code = Negative *NA*(04/02/18 UA Bili) 4:05 AM) [facility] AND [id number] 10:05:00 Test Item Value Reference Range Interpretation Comments UA Protein (test code Negative (04/02/18 4:05 = UA Protein) AM) [facility] AND [id number] 10:05:00 Test Item Value Reference Range Interpretation Comments UA Ketones (test code Negative *NA*(04/02/18 = UA Ketones) 4:05 AM) [facility] AND [id number] 10:05:00 Test Item Value Reference Range Interpretation Comments UA Glucose (test code = UA >=1000 mg/dL Glucose) [facility] AND [id number] 10:05:00 Test Item Value Reference Range Interpretation Comments UA Nitrite (test code Negative (04/02/18 4:05 = UA Nitrite) AM) [facility] AND [id number] 10:05:00 Test Item Value Reference Range Interpretation Comments UA Urobilinogen (test code = UA 0.2 0.1-1.0 Urobilinogen) [facility] [id number] 10:05:00 Test Item Value Reference Range Interpretation Comments UA Leuk Est (test Negative (04/02/18 4:05 code = UA Leuk Est) AM) [facility] [id number] 10:05:00 Test Item Value Reference Range Interpretation Comments UA pH (test code = UA pH) 6.5 1 5.0-8.0 [facility] [id number] 10:05:00 Test Item Value Reference Range Interpretation Comments UA Spec Grav (test *NA*(04/02/18 4:05 AM) code = UA Spec Grav) [facility] [id number] 10:05:00 Test Item Value Reference Range Interpretation Comments UA Color (test code = UA Color) STRAW [facility] AND [id number] 10:05:00 Test Item Value Reference Range Interpretation Comments UA Turbidity (test code = Clear (04/02/18 4:05 UA Turbidity) AM) [facility] [id number] 10:05:00 Test Item Value Reference Range Interpretation Comments UA WBC (test code = no gt See_Comment [Automa owen message] The UA WBC) system which ge nerated this result transmit owen reference range : <=5. The reference range was not used to interpr et this result as fredi l/abnormal. [facility] AND [id number] 10:05:00 Test Item Value Reference Range Interpretation Comments UA RBC (test code = 1 See_Comment [Automa owen message] The UA RBC) system which ge nerated this result transmit owen reference range : <=2. The reference range was not used to interpr et this result as fredi l/abnormal. [facility] [id number] 10:05:00 Test Item Value Reference Range Interpretation Comments UA Sq Epi (test code = UA Sq Occasional /LPF Epi) [facility] [id number] 10:05:00 Test Item Value Reference Range Interpretation Comments UA Bacteria (test code = UA Occasional /HPF Bacteria) [facility] AND [id number] 10:05:00 Test Item Value Reference Range Interpretation Comments UA Blood (test code = Negative (04/02/18 4:05 UA Blood) AM) [facility] [id number] 10:05:00 Test Item Value Reference Range Interpretation Comments UA Bili (test code = Negative *NA*(04/02/18 UA Bili) 4:05 AM) [facility] [id number] 10:05:00 Test Item Value Reference Range Interpretation Comments UA Protein (test code Negative (04/02/18 4:05 = UA Protein) AM) [facility] [id number] 10:05:00 Test Item Value Reference Range Interpretation Comments UA Ketones (test code Negative *NA*(04/02/18 = UA Ketones) 4:05 AM) [facility] [id number] 10:05:00 Test Item Value Reference Range Interpretation Comments UA Glucose (test code = UA >=1000 mg/dL Glucose) [facility] AND [id number] 10:05:00 Test Item Value Reference Range Interpretation Comments UA Nitrite (test code Negative (04/02/18 4:05 = UA Nitrite) AM) [facility] AND [id number] 10:05:00 Test Item Value Reference Range Interpretation Comments UA Urobilinogen (test code = UA 0.2 0.1-1.0 Urobilinogen) [facility] AND [id number] 10:05:00 Test Item Value Reference Range Interpretation Comments UA Leuk Est (test Negative (04/02/18 4:05 code = UA Leuk Est) AM) [facility] AND [id number] 10:05:00 Test Item Value Reference Range Interpretation Comments UA pH (test code = UA pH) 6.5 1 5.0-8.0 [facility] AND [id number] 10:05:00 Test Item Value Reference Range Interpretation Comments UA Spec Grav (test *NA*(04/02/18 4:05 AM) code = UA Spec Grav) [facility] AND [id number] 10:05:00 Test Item Value Reference Range Interpretation Comments UA Color (test code = UA Color) STRAW [facility] AND [id number] 10:05:00 Test Item Value Reference Range Interpretation Comments UA Turbidity (test code = Clear (04/02/18 4:05 UA Turbidity) AM) [facility]2018-11-16 09:39:00 Test Item Value Reference Range Interpretation Comments Calcium Lvl (test code = Calcium Lvl) 7.9 8.5-10.5 [facility]2018-11-16 09:39:00 Test Item Value Reference Range Interpretation Comments Potassium Lvl (test code = Potassium 5.4 3.5-5.1 Lvl) [facility]2018-11-16 09:39:00 Test Item Value Reference Range Interpretation Comments Chloride Lvl (test code = Chloride Lvl) 101 95-109 [facility]2018-11-16 09:39:00 Test Item Value Reference Range Interpretation Comments CO2 (test code = CO2) 23 24-32 [facility]2018-11-16 09:39:00 Test Item Value Reference Range Interpretation Comments AGAP (test code = AGAP) 13.4 10.0-20.0 [facility]2018-11-16 09:39:00 Test Item Value Reference Range Interpretation Comments B/C Ratio (test code = B/C Ratio) 7 1 6-25 [facility]2018-11-16 09:39:00 Test Item Value Reference Range Interpretation Comments Total Protein (test code = Total 6.8 6.4-8.4 Protein) [facility]2018-11-16 09:39:00 Test Item Value Reference Range Interpretation Comments Albumin Lvl (test code = Albumin Lvl) 3.7 3.5-5.0 [facility]2018-11-16 09:39:00 Test Item Value Reference Range Interpretation Comments Globulin (test code = Globulin) 3.1 2.7-4.2 [facility]2018-11-16 09:39:00 Test Item Value Reference Range Interpretation Comments Sodium Lvl (test code = Sodium Lvl) 132 135-145 [facility]2018-11-16 09:39:00 Test Item Value Reference Range Interpretation Comments BUN (test code = BUN) 7 7-22 [facility]2018-11-16 09:39:00 Test Item Value Reference Range Interpretation Comments Glucose Lvl (test code = Glucose Lvl) 739 70-99 [facility]2018-11-16 09:39:00 Test Item Value Reference Range Interpretation Comments Creatinine Lvl (test code = Creatinine 0.99 0.50-1.40 Lvl) [facility]2018-11-16 09:39:00 Test Item Value Reference Range Interpretation Comments A/G Ratio (test code = A/G Ratio) 1.2 1 0.7-1.6 [facility]2018-11-16 09:39:00 Test Item Value Reference Range Interpretation Comments ALT (test code = ALT) 23 See_Comment [Auto mated message] The system which ge nerated this result transmit owen reference range : <=65. The reference range was not used to interpr et this result as fredi l/abnormal. [facility]2018-11-16 09:39:00 Test Item Value Reference Range Interpretation Comments AST (test code = AST) 20 See_Comment [Auto mated message] The system which ge nerated this result transmit owen reference range : <=37. The reference range was not used to interpr et this result as fredi l/abnormal. [facility]2018-11-16 09:39:00 Test Item Value Reference Range Interpretation Comments Alk Phos (test code = Alk Phos) 82 39-136 [facility]2018-11-16 09:39:00 Test Item Value Reference Range Interpretation Comments Bili Total (test code = Bili Total) 0.2 0.2-1.3 [place] [id number] 09:39:00 Test Item Value Reference Range Interpretation Comments eGFR (test code = eGFR) 79 [facility]2018-11-16 09:39:00 Test Item Value Reference Range Interpretation Comments Magnesium Lvl (test code = Magnesium 2.0 1.8-2.4 Lvl) [facility]2018-11-16 09:39:00 Test Item Value Reference Range Interpretation Comments Ketone Quantitative (test code = Ketone 0.28 Quantitative) [facility]J[id number] 09:39:00 Test Item Value Reference Range Interpretation Comments S Preg (test code = S Negative *NA*(04/02/18 Preg) 3:39 AM) [facility] H[id number] 09:39:00 Test Item Value Reference Range Interpretation Comments Eosinophils # (test code 0.3 See_Comment [A utomated message] The = Eosinophils #) system whic h generated this result tra nsmitted reference range : <=0.5. The reference r jase was not used to int erpret this result as normal/abnormal . [facility] H[id number] 09:39:00 Test Item Value Reference Range Interpretation Comments Basophils # (test code 0.1 See_Comment [Aut omated message] The = Basophils #) system which generated this result tra nsmitted reference range : <=0.2. The reference r jase was not used to int erpret this result as normal/abnormal . [facility] Hospit[id number] 09:39:00 Test Item Value Reference Range Interpretation Comments Macrocyte (test code = 2+ *ABN*(04/02/18 Macrocyte) 3:39 AM) [facility] Hos[id number] 09:39:00 Test Item Value Reference Range Interpretation Comments Monocytes (test code = Monocytes) 6.8 2.0-12.0 [facility] HospitalKreyxkgPNNMKHIUNU1784-49-26 09:39:00 Test Item Value Reference Range Interpretation Comments Eosinophils (test code = 6.9 See_Comment [A utomated message] The Eosinophils) system which ge nerated this result tra nsmitted reference range : <=4.0. The reference r jase was not used to int erpret this result as normal/abnormal . [facility] Hospit[id number] 09:39:00 Test Item Value Reference Range Interpretation Comments Neutrophils # (test code = Neutrophils 1.6 1.5-8.1 #) [facility]JkmizdoBNMLEULTDN4091-49-46 09:39:00 Test Item Value Reference Range Interpretation Comments Basophils (test code = 1.9 See_Comment [Aut omated message] The Basophils) system which ge nerated this result tra nsmitted reference range : <=1.0. The reference r jase was not used to int erpret this result as normal/abnormal . [facility] HospitalNqapjucTXQQFEOCXZ3433-06-98 09:39:00 Test Item Value Reference Range Interpretation Comments Lymphocytes # (test code = Lymphocytes 1.9 1.0-5.5 #) [facility] HospitalMgzsaniUXLHHGFKYQ6689-94-98 09:39:00 Test Item Value Reference Range Interpretation Comments Monocytes # (test code 0.3 See_Comment [Aut omated message] The = Monocytes #) system which generated this result tra nsmitted reference range : <=0.8. The reference r jase was not used to int erpret this result as normal/abnormal . [facility] HospitalMkahtqtOKDUQDADHB9054-93-42 09:39:00 Test Item Value Reference Range Interpretation Comments Segs (test code = Segs) 38.3 45.0-75.0 [facility] HospitalZrlauciVRHTCBIJJN8125-79-58 09:39:00 Test Item Value Reference Range Interpretation Comments Lymphocytes (test code = Lymphocytes) 46.1 20.0-40.0 [facility] HospitalQzzmcbyKOLCSEIMSC6078-59-66 09:39:00 Test Item Value Reference Range Interpretation Comments MCV (test code = MCV) 105.0 80.0-98.0 [facility] HospitalOwnwbmaXBRELACELJ3536-74-47 09:39:00 Test Item Value Reference Range Interpretation Comments RDW (test code = RDW) 13.0 11.5-14.5 [facility] HospitalIuaflfgTNVLQZAEFB4680-59-41 09:39:00 Test Item Value Reference Range Interpretation Comments MPV (test code = MPV) 8.5 7.4-10.4 [facility] HospitalPdhpjcxOWFNCXGVWR5630-88-25 09:39:00 Test Item Value Reference Range Interpretation Comments Platelet (test code = Platelet) 259 133-450 [facility] HospitalIqxbsfqMMGYPNRGGA0439-30-94 09:39:00 Test Item Value Reference Range Interpretation Comments MCH (test code = MCH) 35.2 pg 27.0-31.0 [facility] HospitalAzcyamfWXSXVUXARX7813-47-24 09:39:00 Test Item Value Reference Range Interpretation Comments MCHC (test code = MCHC) 33.5 32.0-36.0 [facility] HospitalPfzagkfJNZMWTUUAE4424-79-04 09:39:00 Test Item Value Reference Range Interpretation Comments Hgb (test code = Hgb) 13.4 12.0-16.0 [facility] HospitalTvqgqokACQOXEXBXD2552-69-96 09:39:00 Test Item Value Reference Range Interpretation Comments Hct (test code = Hct) 39.9 36.0-48.0 [facility] HospitalReibqlcPFNYWFEXBB1613-85-31 09:39:00 Test Item Value Reference Range Interpretation Comments RBC (test code = RBC) 3.80 4.20-5.40 [facility] HospitalQcxkdcuHJRNLDKBAW8643-50-99 09:39:00 Test Item Value Reference Range Interpretation Comments WBC (test code = WBC) 4.1 3.7-10.4 [place] [id number] 09:39:00 Test Item Value Reference Range Interpretation Comments Etoh (%) (test code = Etoh (%)) 0.212 [place] [id number] 09:39:00 Test Item Value Reference Range Interpretation Comments Ethanol Lvl (test code = Ethanol Lvl) 212 [facility]2018-11-16 09:39:00 Test Item Value Reference Range Interpretation Comments Calcium Lvl (test code = Calcium Lvl) 7.9 8.5-10.5 [facility]2018-11-16 09:39:00 Test Item Value Reference Range Interpretation Comments Potassium Lvl (test code = Potassium 5.4 3.5-5.1 Lvl) [facility]2018-11-16 09:39:00 Test Item Value Reference Range Interpretation Comments Chloride Lvl (test code = Chloride Lvl) 101 95-109 [facility]2018-11-16 09:39:00 Test Item Value Reference Range Interpretation Comments CO2 (test code = CO2) 23 24-32 [facility]2018-11-16 09:39:00 Test Item Value Reference Range Interpretation Comments AGAP (test code = AGAP) 13.4 10.0-20.0 [facility]2018-11-16 09:39:00 Test Item Value Reference Range Interpretation Comments B/C Ratio (test code = B/C Ratio) 7 1 6-25 [facility]2018-11-16 09:39:00 Test Item Value Reference Range Interpretation Comments Total Protein (test code = Total 6.8 6.4-8.4 Protein) [facility]2018-11-16 09:39:00 Test Item Value Reference Range Interpretation Comments Albumin Lvl (test code = Albumin Lvl) 3.7 3.5-5.0 [facility]2018-11-16 09:39:00 Test Item Value Reference Range Interpretation Comments Globulin (test code = Globulin) 3.1 2.7-4.2 [facility]2018-11-16 09:39:00 Test Item Value Reference Range Interpretation Comments Sodium Lvl (test code = Sodium Lvl) 132 135-145 [facility]2018-11-16 09:39:00 Test Item Value Reference Range Interpretation Comments BUN (test code = BUN) 7 7-22 [facility]2018-11-16 09:39:00 Test Item Value Reference Range Interpretation Comments Glucose Lvl (test code = Glucose Lvl) 739 70-99 [facility]2018-11-16 09:39:00 Test Item Value Reference Range Interpretation Comments Creatinine Lvl (test code = Creatinine 0.99 0.50-1.40 Lvl) [facility]2018-11-16 09:39:00 Test Item Value Reference Range Interpretation Comments A/G Ratio (test code = A/G Ratio) 1.2 1 0.7-1.6 [place] 413508-11-16 09:39:00 Test Item Value Reference Range Interpretation Comments ALT (test code = ALT) 23 See_Comment [Auto mated message] The system which ge nerated this result transmit owen reference range : <=65. The reference range was not used to interpr et this result as fredi l/abnormal. [facility]2018-11-16 09:39:00 Test Item Value Reference Range Interpretation Comments AST (test code = AST) 20 See_Comment [Auto mated message] The system which ge nerated this result transmit owen reference range : <=37. The reference range was not used to interpr et this result as fredi l/abnormal. [place] 413508-11-16 09:39:00 Test Item Value Reference Range Interpretation Comments Alk Phos (test code = Alk Phos) 82 39-136 [place] 413508-11-16 09:39:00 Test Item Value Reference Range Interpretation Comments Bili Total (test code = Bili Total) 0.2 0.2-1.3 [place] 413508-11-16 09:39:00 Test Item Value Reference Range Interpretation Comments eGFR (test code = eGFR) 79 [place] 413508-11-16 09:39:00 Test Item Value Reference Range Interpretation Comments Magnesium Lvl (test code = Magnesium 2.0 1.8-2.4 Lvl) [place] 413508-11-16 09:39:00 Test Item Value Reference Range Interpretation Comments Ketone Quantitative (test code = Ketone 0.28 Quantitative) [place] [id number] 09:39:00 Test Item Value Reference Range Interpretation Comments S Preg (test code = S Negative *NA*(04/02/18 Preg) 3:39 AM) [facility] HospitalDqznkntFKHLPPCELQ2994-92-25 09:39:00 Test Item Value Reference Range Interpretation Comments Eosinophils # (test code 0.3 See_Comment [A utomated message] The = Eosinophils #) system whic h generated this result tra nsmitted reference range : <=0.5. The reference r jase was not used to int erpret this result as normal/abnormal . [facility] HospitalBteiwwqIIOZEINXZN4625-02-01 09:39:00 Test Item Value Reference Range Interpretation Comments Basophils # (test code 0.1 See_Comment [Aut omated message] The = Basophils #) system which generated this result tra nsmitted reference range : <=0.2. The reference r jase was not used to int erpret this result as normal/abnormal . [facility] HospitalOngkitnWWHKVWOIJD4417-73-98 09:39:00 Test Item Value Reference Range Interpretation Comments Macrocyte (test code = 2+ *ABN*(04/02/18 Macrocyte) 3:39 AM) [facility] HospitalKduevkbGCUCKQMFBB7957-08-59 09:39:00 Test Item Value Reference Range Interpretation Comments Monocytes (test code = Monocytes) 6.8 2.0-12.0 [facility] HospitalAwajpxwNEDHXNNXAM8548-32-84 09:39:00 Test Item Value Reference Range Interpretation Comments Eosinophils (test code = 6.9 See_Comment [A utomated message] The Eosinophils) system which ge nerated this result tra nsmitted reference range : <=4.0. The reference r jase was not used to int erpret this result as normal/abnormal . [facility] HospitalPzasfgqTFHPPBTRKZ2617-95-60 09:39:00 Test Item Value Reference Range Interpretation Comments Neutrophils # (test code = Neutrophils 1.6 1.5-8.1 #) [facility] HospitalUqatfegYKDOGICHFB2516-80-52 09:39:00 Test Item Value Reference Range Interpretation Comments Basophils (test code = 1.9 See_Comment [Aut omated message] The Basophils) system which ge nerated this result tra nsmitted reference range : <=1.0. The reference r jase was not used to int erpret this result as normal/abnormal . [facility] HospitalMjeoqzfZHDZTBLBAL7005-34-99 09:39:00 Test Item Value Reference Range Interpretation Comments Lymphocytes # (test code = Lymphocytes 1.9 1.0-5.5 #) [facility] HospitalJyveugzPOCIBGQBKQ4364-30-96 09:39:00 Test Item Value Reference Range Interpretation Comments Monocytes # (test code 0.3 See_Comment [Aut omated message] The = Monocytes #) system which generated this result tra nsmitted reference range : <=0.8. The reference r jase was not used to int erpret this result as normal/abnormal . [facility] HospitalImfznijDVUVWKTNXB8526-15-32 09:39:00 Test Item Value Reference Range Interpretation Comments Segs (test code = Segs) 38.3 45.0-75.0 [facility] HospitalSxgqpyiBPZGHVYTTN6357-35-51 09:39:00 Test Item Value Reference Range Interpretation Comments Lymphocytes (test code = Lymphocytes) 46.1 20.0-40.0 [facility] HospitalCsqbkgvPBVBYMSEHC6665-80-90 09:39:00 Test Item Value Reference Range Interpretation Comments MCV (test code = MCV) 105.0 80.0-98.0 [facility] HospitalFruawrfOSIXWMECHW5492-02-05 09:39:00 Test Item Value Reference Range Interpretation Comments RDW (test code = RDW) 13.0 11.5-14.5 [facility] HospitalYcjubjoQSNCNEVURV7459-63-51 09:39:00 Test Item Value Reference Range Interpretation Comments MPV (test code = MPV) 8.5 7.4-10.4 [facility] HospitalMoxlqclHUZBDYIQBG0766-04-55 09:39:00 Test Item Value Reference Range Interpretation Comments Platelet (test code = Platelet) 259 133-450 [facility] HospitalKamcvwyJZQEJGNTUF5919-99-85 09:39:00 Test Item Value Reference Range Interpretation Comments MCH (test code = MCH) 35.2 pg 27.0-31.0 [facility] HospitalRbfcpbwJXFKFZFOQR6588-59-78 09:39:00 Test Item Value Reference Range Interpretation Comments MCHC (test code = MCHC) 33.5 32.0-36.0 [facility] HospitalDhtjnaxYNBUSGGWZR1400-96-91 09:39:00 Test Item Value Reference Range Interpretation Comments Hgb (test code = Hgb) 13.4 12.0-16.0 [facility] HospitalZxntfcrFAGYLWOMZX4814-04-50 09:39:00 Test Item Value Reference Range Interpretation Comments Hct (test code = Hct) 39.9 36.0-48.0 [facility] HospitalGnsqvfhSAVAFWTVMR5125-73-08 09:39:00 Test Item Value Reference Range Interpretation Comments RBC (test code = RBC) 3.80 4.20-5.40 [facility] HospitalZjoyklrQJMEVEJTLE1530-08-84 09:39:00 Test Item Value Reference Range Interpretation Comments WBC (test code = WBC) 4.1 3.7-10.4 [place] [id number] 09:39:00 Test Item Value Reference Range Interpretation Comments Etoh (%) (test code = Etoh (%)) 0.212 [place] 019888-11-16 09:39:00 Test Item Value Reference Range Interpretation Comments Ethanol Lvl (test code = Ethanol Lvl) 212 [facility]2018-11-16 09:39:00 Test Item Value Reference Range Interpretation Comments Calcium Lvl (test code = Calcium Lvl) 7.9 8.5-10.5 [facility]2018-11-16 09:39:00 Test Item Value Reference Range Interpretation Comments Potassium Lvl (test code = Potassium 5.4 3.5-5.1 Lvl) [facility]2018-11-16 09:39:00 Test Item Value Reference Range Interpretation Comments Chloride Lvl (test code = Chloride Lvl) 101 95-109 [facility]2018-11-16 09:39:00 Test Item Value Reference Range Interpretation Comments CO2 (test code = CO2) 23 24-32 [facility]2018-11-16 09:39:00 Test Item Value Reference Range Interpretation Comments AGAP (test code = AGAP) 13.4 10.0-20.0 [facility]2018-11-16 09:39:00 Test Item Value Reference Range Interpretation Comments B/C Ratio (test code = B/C Ratio) 7 1 6-25 [facility]2018-11-16 09:39:00 Test Item Value Reference Range Interpretation Comments Total Protein (test code = Total 6.8 6.4-8.4 Protein) [facility]2018-11-16 09:39:00 Test Item Value Reference Range Interpretation Comments Albumin Lvl (test code = Albumin Lvl) 3.7 3.5-5.0 [place] 413508-11-16 09:39:00 Test Item Value Reference Range Interpretation Comments Globulin (test code = Globulin) 3.1 2.7-4.2 [place] 413508-11-16 09:39:00 Test Item Value Reference Range Interpretation Comments Sodium Lvl (test code = Sodium Lvl) 132 135-145 [place] 413508-11-16 09:39:00 Test Item Value Reference Range Interpretation Comments BUN (test code = BUN) 7 7-22 [place] 413508-11-16 09:39:00 Test Item Value Reference Range Interpretation Comments Glucose Lvl (test code = Glucose Lvl) 739 70-99 [place] 413508-11-16 09:39:00 Test Item Value Reference Range Interpretation Comments Creatinine Lvl (test code = Creatinine 0.99 0.50-1.40 Lvl) [place] 413508-11-16 09:39:00 Test Item Value Reference Range Interpretation Comments A/G Ratio (test code = A/G Ratio) 1.2 1 0.7-1.6 [place] 413508-11-16 09:39:00 Test Item Value Reference Range Interpretation Comments ALT (test code = ALT) 23 See_Comment [Auto mated message] The system which ge nerated this result transmit owen reference range : <=65. The reference range was not used to interpr et this result as fredi l/abnormal. [place] 413508-11-16 09:39:00 Test Item Value Reference Range Interpretation Comments AST (test code = AST) 20 See_Comment [Auto mated message] The system which ge nerated this result transmit owen reference range : <=37. The reference range was not used to interpr et this result as fredi l/abnormal. [place] 413508-11-16 09:39:00 Test Item Value Reference Range Interpretation Comments Alk Phos (test code = Alk Phos) 82 39-136 [facility]2018-11-16 09:39:00 Test Item Value Reference Range Interpretation Comments Bili Total (test code = Bili Total) 0.2 0.2-1.3 [facility]2018-11-16 09:39:00 Test Item Value Reference Range Interpretation Comments eGFR (test code = eGFR) 79 [facility]2018-11-16 09:39:00 Test Item Value Reference Range Interpretation Comments Magnesium Lvl (test code = Magnesium 2.0 1.8-2.4 Lvl) [facility]2018-11-16 09:39:00 Test Item Value Reference Range Interpretation Comments Ketone Quantitative (test code = Ketone 0.28 Quantitative) [facility]myzkfjIZLRHKEAENUOI9659-68-10 09:39:00 Test Item Value Reference Range Interpretation Comments S Preg (test code = S Negative *NA*(04/02/18 Preg) 3:39 AM) [facility] HospitalZipczzrMOFKCBKZWP4500-80-74 09:39:00 Test Item Value Reference Range Interpretation Comments Eosinophils # (test code 0.3 See_Comment [A utomated message] The = Eosinophils #) system whic h generated this result tra nsmitted reference range : <=0.5. The reference r jase was not used to int erpret this result as normal/abnormal . [facility] HospitalKsoocyaKBYWTOHVJQ8999-55-47 09:39:00 Test Item Value Reference Range Interpretation Comments Basophils # (test code 0.1 See_Comment [Aut omated message] The = Basophils #) system which generated this result tra nsmitted reference range : <=0.2. The reference r jase was not used to int erpret this result as normal/abnormal . [facility] HospitalXytgymsNDGZLPTUCD2899-67-56 09:39:00 Test Item Value Reference Range Interpretation Comments Macrocyte (test code = 2+ *ABN*(04/02/18 Macrocyte) 3:39 AM) [facility] HospitalCfciiveFDEVPILTGE7812-53-64 09:39:00 Test Item Value Reference Range Interpretation Comments Monocytes (test code = Monocytes) 6.8 2.0-12.0 [facility] HospitalZwjehjdHEFTYHYDKR2839-61-02 09:39:00 Test Item Value Reference Range Interpretation Comments Eosinophils (test code = 6.9 See_Comment [A utomated message] The Eosinophils) system which ge nerated this result tra nsmitted reference range : <=4.0. The reference r jase was not used to int erpret this result as normal/abnormal . [facility] HospitalKqievgwRSMRHDUWSN7412-04-42 09:39:00 Test Item Value Reference Range Interpretation Comments Neutrophils # (test code = Neutrophils 1.6 1.5-8.1 #) [facility] HospitalRgclcgsRXAOWGNCGV0973-07-78 09:39:00 Test Item Value Reference Range Interpretation Comments Basophils (test code = 1.9 See_Comment [Aut omated message] The Basophils) system which ge nerated this result tra nsmitted reference range : <=1.0. The reference r jase was not used to int erpret this result as normal/abnormal . [facility] HospitalDhhkqfnYKVCKCELTO1017-96-32 09:39:00 Test Item Value Reference Range Interpretation Comments Lymphocytes # (test code = Lymphocytes 1.9 1.0-5.5 #) [facility] HospitalVedcxbbEZAUDPHKNB9176-89-31 09:39:00 Test Item Value Reference Range Interpretation Comments Monocytes # (test code 0.3 See_Comment [Aut omated message] The = Monocytes #) system which generated this result tra nsmitted reference range : <=0.8. The reference r jase was not used to int erpret this result as normal/abnormal . [facility] HospitalZkrnxehHPOMZMVDJT8874-97-50 09:39:00 Test Item Value Reference Range Interpretation Comments Segs (test code = Segs) 38.3 45.0-75.0 [facility] HospitalBqyghawKTCBDTKEUM0064-00-67 09:39:00 Test Item Value Reference Range Interpretation Comments Lymphocytes (test code = Lymphocytes) 46.1 20.0-40.0 [facility] HospitalChjyemlCDUWZEHQXU1541-78-15 09:39:00 Test Item Value Reference Range Interpretation Comments MCV (test code = MCV) 105.0 80.0-98.0 [facility] HospitalZbbjcowOXUPPLKUYV2858-50-57 09:39:00 Test Item Value Reference Range Interpretation Comments RDW (test code = RDW) 13.0 11.5-14.5 [facility] HospitalZqlthlfOLSBFBSINI2652-58-77 09:39:00 Test Item Value Reference Range Interpretation Comments MPV (test code = MPV) 8.5 7.4-10.4 [facility] HospitalKqozlkiSBHYGFISUY4154-81-81 09:39:00 Test Item Value Reference Range Interpretation Comments Platelet (test code = Platelet) 259 133-450 [facility] HospitalWwurqmxHHQBXFQHOS2890-60-89 09:39:00 Test Item Value Reference Range Interpretation Comments MCH (test code = MCH) 35.2 pg 27.0-31.0 [facility] HospitalMeakwfqCDDWZNXITX2622-10-95 09:39:00 Test Item Value Reference Range Interpretation Comments MCHC (test code = MCHC) 33.5 32.0-36.0 [facility] HospitalBntggwqWNCSYDESBS7384-93-86 09:39:00 Test Item Value Reference Range Interpretation Comments Hgb (test code = Hgb) 13.4 12.0-16.0 [facility] HospitalTsemcmpWHLUAHOZVG4247-50-26 09:39:00 Test Item Value Reference Range Interpretation Comments Hct (test code = Hct) 39.9 36.0-48.0 [facility] HospitalUlshapjQGZHEURQMN1304-63-81 09:39:00 Test Item Value Reference Range Interpretation Comments RBC (test code = RBC) 3.80 4.20-5.40 [facility] HospitalNonvpaeUZBPXTTNYH9768-23-41 09:39:00 Test Item Value Reference Range Interpretation Comments WBC (test code = WBC) 4.1 3.7-10.4 [facility]DavkssrRMPJNYRZMJ6516-99-20 09:39:00 Test Item Value Reference Range Interpretation Comments Etoh (%) (test code = Etoh (%)) 0.212 [place] 87009018-11-16 09:39:00 Test Item Value Reference Range Interpretation Comments Ethanol Lvl (test code = Ethanol Lvl) 212 [facility]2018-10-16 09:14:00 Test Item Value Reference Range Interpretation Comments Lipase Lvl (test code = Lipase Lvl) 145 73-393 [facility]2018-10-16 09:14:00 Test Item Value Reference Range Interpretation Comments eGFR (test code = eGFR) 116 [facility]2018-10-16 09:14:00 Test Item Value Reference Range Interpretation Comments Alk Phos (test code = Alk Phos) 94 39-136 [facility]2018-10-16 09:14:00 Test Item Value Reference Range Interpretation Comments Bili Total (test code = Bili Total) 0.3 0.2-1.3 [facility]2018-10-16 09:14:00 Test Item Value Reference Range Interpretation Comments Total Protein (test code = Total 7.3 6.4-8.4 Protein) [place] 413508-10-16 09:14:00 Test Item Value Reference Range Interpretation Comments Albumin Lvl (test code = Albumin Lvl) 3.8 3.5-5.0 [place] 413508-10-16 09:14:00 Test Item Value Reference Range Interpretation Comments A/G Ratio (test code = A/G Ratio) 1.1 1 0.7-1.6 [facility]2018-10-16 09:14:00 Test Item Value Reference Range Interpretation Comments Globulin (test code = Globulin) 3.5 2.7-4.2 [facility]2018-10-16 09:14:00 Test Item Value Reference Range Interpretation Comments ALT (test code = ALT) 18 See_Comment [Auto mated message] The system which ge nerated this result transmit owen reference range : <=65. The reference range was not used to interpr et this result as fredi l/abnormal. [facility]2018-10-16 09:14:00 Test Item Value Reference Range Interpretation Comments AST (test code = AST) 10 See_Comment [Auto mated message] The system which ge nerated this result transmit owen reference range : <=37. The reference range was not used to interpr et this result as fredi l/abnormal. [facility]2018-10-16 09:14:00 Test Item Value Reference Range Interpretation Comments Glucose Lvl (test code = Glucose Lvl) 34 70-99 [facility]2018-10-16 09:14:00 Test Item Value Reference Range Interpretation Comments Creatinine Lvl (test code = Creatinine 0.71 0.50-1.40 Lvl) [place] 413508-10-16 09:14:00 Test Item Value Reference Range Interpretation Comments Potassium Lvl (test code = Potassium 3.4 3.5-5.1 Lvl) [facility]2018-10-16 09:14:00 Test Item Value Reference Range Interpretation Comments BUN (test code = BUN) 10 7-22 [place] 413508-10-16 09:14:00 Test Item Value Reference Range Interpretation Comments Sodium Lvl (test code = Sodium Lvl) 139 135-145 [facility]2018-10-16 09:14:00 Test Item Value Reference Range Interpretation Comments Chloride Lvl (test code = Chloride Lvl) 105 95-109 [facility]2018-10-16 09:14:00 Test Item Value Reference Range Interpretation Comments CO2 (test code = CO2) 27 24-32 [facility]2018-10-16 09:14:00 Test Item Value Reference Range Interpretation Comments AGAP (test code = AGAP) 10.4 10.0-20.0 [facility]2018-10-16 09:14:00 Test Item Value Reference Range Interpretation Comments Calcium Lvl (test code = Calcium Lvl) 9.2 8.5-10.5 [facility]2018-10-16 09:14:00 Test Item Value Reference Range Interpretation Comments B/C Ratio (test code = B/C Ratio) 14 1 6-25 [facility] HospitalGnsnqcwRBEFPKAQON8428-94-33 09:14:00 Test Item Value Reference Range Interpretation Comments Eosinophils # (test code 0.7 See_Comment [A utomated message] The = Eosinophils #) system whic h generated this result tra nsmitted reference range : <=0.5. The reference r jase was not used to int erpret this result as normal/abnormal . [facility]YixeemtFLDGWBKUVL7467-37-07 09:14:00 Test Item Value Reference Range Interpretation Comments Monocytes # (test code 0.6 See_Comment [Aut omated message] The = Monocytes #) system which generated this result tra nsmitted reference range : <=0.8. The reference r jase was not used to int erpret this result as normal/abnormal . [facility] HospitalYvixloaBPFMUWASMV2135-96-61 09:14:00 Test Item Value Reference Range Interpretation Comments Lymphocytes # (test code = Lymphocytes 2.4 1.0-5.5 #) [facility] HospitalVdloajnPXXDDEDBHO5253-47-24 09:14:00 Test Item Value Reference Range Interpretation Comments Basophils (test code = 1.0 See_Comment [Aut omated message] The Basophils) system which ge nerated this result tra nsmitted reference range : <=1.0. The reference r jase was not used to int erpret this result as normal/abnormal . [facility] HospitalTluxtrjVCJYUZVFPR6377-62-27 09:14:00 Test Item Value Reference Range Interpretation Comments Neutrophils # (test code = Neutrophils 5.1 1.5-8.1 #) [facility] HospitalRvryoadHMCETDLQBH6042-14-86 09:14:00 Test Item Value Reference Range Interpretation Comments Eosinophils (test code = 7.9 See_Comment [A utomated message] The Eosinophils) system which ge nerated this result tra nsmitted reference range : <=4.0. The reference r jase was not used to int erpret this result as normal/abnormal . [facility] HospitalKgxychhVZUDMPRSEH1204-35-48 09:14:00 Test Item Value Reference Range Interpretation Comments Monocytes (test code = Monocytes) 6.9 2.0-12.0 [facility] HospitalZzzidjwXKOATHJBRC0110-13-07 09:14:00 Test Item Value Reference Range Interpretation Comments Lymphocytes (test code = Lymphocytes) 27.3 20.0-40.0 [facility] HospitalSuwtfvzZWNUCSPEUQ8612-79-68 09:14:00 Test Item Value Reference Range Interpretation Comments Macrocyte (test code = 1+ *ABN*(03/02/18 Macrocyte) 4:14 AM) [facility] HospitalVhfiulqXQOUCGFMTO2120-39-53 09:14:00 Test Item Value Reference Range Interpretation Comments Basophils # (test code 0.1 See_Comment [Aut omated message] The = Basophils #) system which generated this result tra nsmitted reference range : <=0.2. The reference r jase was not used to int erpret this result as normal/abnormal . [facility] HospitalPvydgayURORNTFZCL5457-55-90 09:14:00 Test Item Value Reference Range Interpretation Comments Segs (test code = Segs) 56.9 45.0-75.0 [facility] HospitalRjxyjjjWJGSWTXKNP9482-23-71 09:14:00 Test Item Value Reference Range Interpretation Comments RDW (test code = RDW) 12.1 11.5-14.5 [facility] HospitalBchuialLSRFKYVCIH0102-80-94 09:14:00 Test Item Value Reference Range Interpretation Comments MCV (test code = MCV) 100.2 80.0-98.0 [facility] HospitalChitgrlFJGTSRHTKG8718-43-62 09:14:00 Test Item Value Reference Range Interpretation Comments MCH (test code = MCH) 35.0 pg 27.0-31.0 [facility] HospitalXfhczdcWQTNGXATDX3103-52-61 09:14:00 Test Item Value Reference Range Interpretation Comments Platelet (test code = Platelet) 342 133-450 [facility] HospitalPhqejmkEMDUWJHFNJ4814-58-75 09:14:00 Test Item Value Reference Range Interpretation Comments MCHC (test code = MCHC) 35.0 32.0-36.0 [facility] HospitalKjyfbkmHUFZUEVYWN5832-53-68 09:14:00 Test Item Value Reference Range Interpretation Comments Hgb (test code = Hgb) 13.6 12.0-16.0 [facility] HospitalTanqfafAWYNJTRXHX9079-64-33 09:14:00 Test Item Value Reference Range Interpretation Comments WBC (test code = WBC) 8.9 3.7-10.4 [facility] HospitalLljordjDDRBQMVJIX8647-40-63 09:14:00 Test Item Value Reference Range Interpretation Comments Hct (test code = Hct) 38.8 36.0-48.0 [facility] HospitalNlcuzueGRNLQMYPUZ7548-10-72 09:14:00 Test Item Value Reference Range Interpretation Comments RBC (test code = RBC) 3.87 4.20-5.40 [facility] HospitalWkxjdumXMGYTYFUCA3010-87-75 09:14:00 Test Item Value Reference Range Interpretation [...] interpr et this result as fredi l/abnormal. [facility] AND [id number] 09:14:00 Test Item Value Reference Range Interpretation Comments UA Leuk Est (test Negative (03/02/18 4:14 code = UA Leuk Est) AM) [facility] AND [id number] 09:14:00 Test Item Value Reference Range Interpretation Comments UA Nitrite (test code Negative (03/02/18 4:14 = UA Nitrite) AM) [facility] AND [id number] 09:14:00 Test Item Value Reference Range Interpretation Comments UA Blood (test code = Negative (03/02/18 4:14 UA Blood) AM) [facility] AND [id number] 09:14:00 Test Item Value Reference Range Interpretation Comments UA Bili (test code = Negative *NA*(03/02/18 UA Bili) 4:14 AM) [facility] AND [id number] 09:14:00 Test Item Value Reference Range Interpretation Comments UA Glucose (test code = UA Glucose) 500 mg/dL [facility] AND [id number] 09:14:00 Test Item Value Reference Range Interpretation Comments UA Protein (test code = UA Protein) 100 mg/dL [facility] AND [id number] 09:14:00 Test Item Value Reference Range Interpretation Comments UA pH (test code = UA pH) 7.0 1 5.0-8.0 [facility] AND [id number] 09:14:00 Test Item Value Reference Range Interpretation Comments UA Spec Grav (test code = UA Spec 1.016 1 Grav) [facility] AND [id number] 09:14:00 Test Item Value Reference Range Interpretation Comments UA Turbidity (test code = Clear (03/02/18 4:14 UA Turbidity) AM) [facility] AND [id number] 09:14:00 Test Item Value Reference Range Interpretation Comments UA Sq Epi (test code = UA Sq Epi) Few /LPF [facility] AND [id number] 09:14:00 Test Item Value Reference Range Interpretation Comments UA RBC (test code = 1 See_Comment [Automa owen message] The UA RBC) system which ge nerated this result transmit owen reference range : <=2. The reference range was not used to interpr et this result as fredi l/abnormal. [facility] AND [id number] 09:14:00 Test Item Value Reference Range Interpretation Comments UA Urobilinogen (test code = UA <=1.0 mg/dL 0.1-1.0 Urobilinogen) [facility] AND [id number] 09:14:00 Test Item Value Reference Range Interpretation Comments UA Hyal Cast (test 1 See_Comment [Automat ed message] The code = UA Hyal Cast) system which generated this result transmit owen reference range : <=2. The reference range was not used to interpr et this result as fredi l/abnormal. [facility] AND [id number] 09:14:00 Test Item Value Reference Range Interpretation Comments UA Mucus (test code = UA Mucus) Few /LPF [facility] AND [id number] 09:14:00 Test Item Value Reference Range Interpretation Comments UA Ketones (test code = UA Negative mg/dL Ketones) [facility] AND [id number] 09:14:00 Test Item Value Reference Range Interpretation Comments UA Color (test code = Yellow *NA*(03/02/18 UA Color) 4:14 AM) [facility]2018-10-16 09:14:00 Test Item Value Reference Range Interpretation Comments Lipase Lvl (test code = Lipase Lvl) 145 73-393 [facility]2018-10-16 09:14:00 Test Item Value Reference Range Interpretation Comments eGFR (test code = eGFR) 116 [facility]2018-10-16 09:14:00 Test Item Value Reference Range Interpretation Comments Alk Phos (test code = Alk Phos) 94 39-136 [facility]2018-10-16 09:14:00 Test Item Value Reference Range Interpretation Comments Bili Total (test code = Bili Total) 0.3 0.2-1.3 [facility]2018-10-16 09:14:00 Test Item Value Reference Range Interpretation Comments Total Protein (test code = Total 7.3 6.4-8.4 Protein) [facility]2018-10-16 09:14:00 Test Item Value Reference Range Interpretation Comments Albumin Lvl (test code = Albumin Lvl) 3.8 3.5-5.0 [facility]2018-10-16 09:14:00 Test Item Value Reference Range Interpretation Comments A/G Ratio (test code = A/G Ratio) 1.1 1 0.7-1.6 [facility]2018-10-16 09:14:00 Test Item Value Reference Range Interpretation Comments Globulin (test code = Globulin) 3.5 2.7-4.2 [facility]2018-10-16 09:14:00 Test Item Value Reference Range Interpretation Comments ALT (test code = ALT) 18 See_Comment [Auto mated message] The system which ge nerated this result transmit owen reference range : <=65. The reference range was not used to interpr et this result as fredi l/abnormal. [facility]2018-10-16 09:14:00 Test Item Value Reference Range Interpretation Comments AST (test code = AST) 10 See_Comment [Auto mated message] The system which ge nerated this result transmit owen reference range : <=37. The reference range was not used to interpr et this result as fredi l/abnormal. [facility]2018-10-16 09:14:00 Test Item Value Reference Range Interpretation Comments Glucose Lvl (test code = Glucose Lvl) 34 70-99 [facility]2018-10-16 09:14:00 Test Item Value Reference Range Interpretation Comments Creatinine Lvl (test code = Creatinine 0.71 0.50-1.40 Lvl) [facility]2018-10-16 09:14:00 Test Item Value Reference Range Interpretation Comments Potassium Lvl (test code = Potassium 3.4 3.5-5.1 Lvl) [facility]2018-10-16 09:14:00 Test Item Value Reference Range Interpretation Comments BUN (test code = BUN) 10 7-22 [facility]2018-10-16 09:14:00 Test Item Value Reference Range Interpretation Comments Sodium Lvl (test code = Sodium Lvl) 139 135-145 [facility]2018-10-16 09:14:00 Test Item Value Reference Range Interpretation Comments Chloride Lvl (test code = Chloride Lvl) 105 95-109 [facility]2018-10-16 09:14:00 Test Item Value Reference Range Interpretation Comments CO2 (test code = CO2) 27 24-32 [facility]2018-10-16 09:14:00 Test Item Value Reference Range Interpretation Comments AGAP (test code = AGAP) 10.4 10.0-20.0 [facility]2018-10-16 09:14:00 Test Item Value Reference Range Interpretation Comments Calcium Lvl (test code = Calcium Lvl) 9.2 8.5-10.5 [facility]2018-10-16 09:14:00 Test Item Value Reference Range Interpretation Comments B/C Ratio (test code = B/C Ratio) 14 1 6-25 [facility] HospitalZctexqnMMBHGFYZAN4053-83-41 09:14:00 Test Item Value Reference Range Interpretation Comments Eosinophils # (test code 0.7 See_Comment [A utomated message] The = Eosinophils #) system whic h generated this result tra nsmitted reference range : <=0.5. The reference r jase was not used to int erpret this result as normal/abnormal . [facility] HospitalLxhnwojGVEHOZNILK2090-88-94 09:14:00 Test Item Value Reference Range Interpretation Comments Monocytes # (test code 0.6 See_Comment [Aut omated message] The = Monocytes #) system which generated this result tra nsmitted reference range : <=0.8. The reference r jase was not used to int erpret this result as normal/abnormal . [facility] HospitalCitsfkvBGDQKKFIAC7573-82-85 09:14:00 Test Item Value Reference Range Interpretation Comments Lymphocytes # (test code = Lymphocytes 2.4 1.0-5.5 #) [facility] HospitalKoqscnaXEKPUEQEPV3823-48-65 09:14:00 Test Item Value Reference Range Interpretation Comments Basophils (test code = 1.0 See_Comment [Aut omated message] The Basophils) system which ge nerated this result tra nsmitted reference range : <=1.0. The reference r jase was not used to int erpret this result as normal/abnormal . [facility] HospitalEndkazqLBVQKHMUKS1684-88-96 09:14:00 Test Item Value Reference Range Interpretation Comments Neutrophils # (test code = Neutrophils 5.1 1.5-8.1 #) [facility] HospitalUweuekmLEAUUGVMLW1439-56-16 09:14:00 Test Item Value Reference Range Interpretation Comments Eosinophils (test code = 7.9 See_Comment [A utomated message] The Eosinophils) system which ge nerated this result tra nsmitted reference range : <=4.0. The reference r jase was not used to int erpret this result as normal/abnormal . [facility] HospitalBpnebixJEEVKSNCVJ1427-86-17 09:14:00 Test Item Value Reference Range Interpretation Comments Monocytes (test code = Monocytes) 6.9 2.0-12.0 [facility] HospitalYvtwalfXJXGOFMHMB2885-87-29 09:14:00 Test Item Value Reference Range Interpretation Comments Lymphocytes (test code = Lymphocytes) 27.3 20.0-40.0 [facility] HospitalNdfzxbkFXZCMIMRFF9037-46-21 09:14:00 Test Item Value Reference Range Interpretation Comments Macrocyte (test code = 1+ *ABN*(03/02/18 Macrocyte) 4:14 AM) [facility] HospitalScuvvdrWYIACBVDUW1870-80-78 09:14:00 Test Item Value Reference Range Interpretation Comments Basophils # (test code 0.1 See_Comment [Aut omated message] The = Basophils #) system which generated this result tra nsmitted reference range : <=0.2. The reference r jase was not used to int erpret this result as normal/abnormal . [facility] HospitalRegpvydJEPEJLNPOQ2052-28-75 09:14:00 Test Item Value Reference Range Interpretation Comments Segs (test code = Segs) 56.9 45.0-75.0 [facility] HospitalSgdlgynKFOKGHJIGA7288-51-45 09:14:00 Test Item Value Reference Range Interpretation Comments RDW (test code = RDW) 12.1 11.5-14.5 [facility] HospitalOqbxiuaFMKKGVUALZ8117-06-50 09:14:00 Test Item Value Reference Range Interpretation Comments MCV (test code = MCV) 100.2 80.0-98.0 [facility] HospitalYstthsoHQYALJYKOO8870-23-67 09:14:00 Test Item Value Reference Range Interpretation Comments MCH (test code = MCH) 35.0 pg 27.0-31.0 [facility] HospitalQhgcjehXGAQNOPKVP0488-95-95 09:14:00 Test Item Value Reference Range Interpretation Comments Platelet (test code = Platelet) 342 133-450 [facility] HospitalNqryficUFXXPYGBCC0752-73-72 09:14:00 Test Item Value Reference Range Interpretation Comments MCHC (test code = MCHC) 35.0 32.0-36.0 [facility] HospitalEhklbuaYNHJHIDFGL3397-41-05 09:14:00 Test Item Value Reference Range Interpretation Comments Hgb (test code = Hgb) 13.6 12.0-16.0 [facility] HospitalMnuqqhqQNGMZGYKZX9736-78-49 09:14:00 Test Item Value Reference Range Interpretation Comments WBC (test code = WBC) 8.9 3.7-10.4 [facility] HospitalMaqapxuDVNCYKNOTD6819-25-54 09:14:00 Test Item Value Reference Range Interpretation Comments Hct (test code = Hct) 38.8 36.0-48.0 [facility] HospitalTovasvaQARHDENINQ8239-30-03 09:14:00 Test Item Value Reference Range Interpretation Comments RBC (test code = RBC) 3.87 4.20-5.40 [facility]DfatstsGYHLKWHEQQ8280-68-77 09:14:00 Test Item Value Reference Range Interpretation Comments MPV (test code = MPV) 8.4 7.4-10.4 [facility] AND [id number] 09:14:00 Test Item Value Reference Range Interpretation Comments UA WBC (test code = 2 See_Comment [Automa owen message] The UA WBC) system which ge nerated this result transmit owen reference range : <=5. The reference range was not used to interpr et this result as fredi l/abnormal. [facility] AND [id number] 09:14:00 Test Item Value Reference Range Interpretation Comments UA Leuk Est (test Negative (03/02/18 4:14 code = UA Leuk Est) AM) [facility] AND [id number] 09:14:00 Test Item Value Reference Range Interpretation Comments UA Nitrite (test code Negative (03/02/18 4:14 = UA Nitrite) AM) [facility] AND EERJE2821-05-19 09:14:00 Test Item Value Reference Range Interpretation Comments UA Blood (test code = Negative (03/02/18 4:14 UA Blood) AM) [facility] AND [id number] 09:14:00 Test Item Value Reference Range Interpretation Comments UA Bili (test code = Negative *NA*(03/02/18 UA Bili) 4:14 AM) [facility] AND [id number] 09:14:00 Test Item Value Reference Range Interpretation Comments UA Glucose (test code = UA Glucose) 500 mg/dL [facility] AND [id number] 09:14:00 Test Item Value Reference Range Interpretation Comments UA Protein (test code = UA Protein) 100 mg/dL [facility] AND [id number] 09:14:00 Test Item Value Reference Range Interpretation Comments UA pH (test code = UA pH) 7.0 1 5.0-8.0 [facility] AND [id number] 09:14:00 Test Item Value Reference Range Interpretation Comments UA Spec Grav (test code = UA Spec 1.016 1 Grav) [facility] AND [id number] 09:14:00 Test Item Value Reference Range Interpretation Comments UA Turbidity (test code = Clear (03/02/18 4:14 UA Turbidity) AM) [facility] AND [id number] 09:14:00 Test Item Value Reference Range Interpretation Comments UA Sq Epi (test code = UA Sq Epi) Few /LPF [facility] AND [id number] 09:14:00 Test Item Value Reference Range Interpretation Comments UA RBC (test code = 1 See_Comment [Automa owen message] The UA RBC) system which ge nerated this result transmit owen reference range : <=2. The reference range was not used to interpr et this result as fredi l/abnormal. [facility] AND [id number] 09:14:00 Test Item Value Reference Range Interpretation Comments UA Urobilinogen (test code = UA <=1.0 mg/dL 0.1-1.0 Urobilinogen) [facility] AND [id number] 09:14:00 Test Item Value Reference Range Interpretation Comments UA Hyal Cast (test 1 See_Comment [Automat ed message] The code = UA Hyal Cast) system which generated this result transmit owen reference range : <=2. The reference range was not used to interpr et this result as fredi l/abnormal. [facility] AND [id number] 09:14:00 Test Item Value Reference Range Interpretation Comments UA Mucus (test code = UA Mucus) Few /LPF [facility] AND [id number] 09:14:00 Test Item Value Reference Range Interpretation Comments UA Ketones (test code = UA Negative mg/dL Ketones) [facility] AND [id number] 09:14:00 Test Item Value Reference Range Interpretation Comments UA Color (test code = Yellow *NA*(03/02/18 UA Color) 4:14 AM) [facility]2018-10-16 09:14:00 Test Item Value Reference Range Interpretation Comments Lipase Lvl (test code = Lipase Lvl) 145 73-393 [facility]2018-10-16 09:14:00 Test Item Value Reference Range Interpretation Comments eGFR (test code = eGFR) 116 [facility]2018-10-16 09:14:00 Test Item Value Reference Range Interpretation Comments Alk Phos (test code = Alk Phos) 94 39-136 [facility]2018-10-16 09:14:00 Test Item Value Reference Range Interpretation Comments Bili Total (test code = Bili Total) 0.3 0.2-1.3 [place] 413508-10-16 09:14:00 Test Item Value Reference Range Interpretation Comments Total Protein (test code = Total 7.3 6.4-8.4 Protein) [place] [address]-10-16 09:14:00 Test Item Value Reference Range Interpretation Comments Albumin Lvl (test code = Albumin Lvl) 3.8 3.5-5.0 [place] 413508-10-16 09:14:00 Test Item Value Reference Range Interpretation Comments A/G Ratio (test code = A/G Ratio) 1.1 1 0.7-1.6 [place] 413508-10-16 09:14:00 Test Item Value Reference Range Interpretation Comments Globulin (test code = Globulin) 3.5 2.7-4.2 [place] 413508-10-16 09:14:00 Test Item Value Reference Range Interpretation Comments ALT (test code = ALT) 18 See_Comment [Auto mated message] The system which ge nerated this result transmit owen reference range : <=65. The reference range was not used to interpr et this result as fredi l/abnormal. [facility]2018-10-16 09:14:00 Test Item Value Reference Range Interpretation Comments AST (test code = AST) 10 See_Comment [Auto mated message] The system which ge nerated this result transmit owen reference range : <=37. The reference range was not used to interpr et this result as fredi l/abnormal. [facility]2018-10-16 09:14:00 Test Item Value Reference Range Interpretation Comments Glucose Lvl (test code = Glucose Lvl) 34 70-99 [place] 413508-10-16 09:14:00 Test Item Value Reference Range Interpretation Comments Creatinine Lvl (test code = Creatinine 0.71 0.50-1.40 Lvl) [place] 413508-10-16 09:14:00 Test Item Value Reference Range Interpretation Comments Potassium Lvl (test code = Potassium 3.4 3.5-5.1 Lvl) [place] 413508-10-16 09:14:00 Test Item Value Reference Range Interpretation Comments BUN (test code = BUN) 10 7-22 [facility]2018-10-16 09:14:00 Test Item Value Reference Range Interpretation Comments Sodium Lvl (test code = Sodium Lvl) 139 135-145 [facility]2018-10-16 09:14:00 Test Item Value Reference Range Interpretation Comments Chloride Lvl (test code = Chloride Lvl) 105 95-109 [facility]2018-10-16 09:14:00 Test Item Value Reference Range Interpretation Comments CO2 (test code = CO2) 27 24-32 [facility]2018-10-16 09:14:00 Test Item Value Reference Range Interpretation Comments AGAP (test code = AGAP) 10.4 10.0-20.0 [facility]2018-10-16 09:14:00 Test Item Value Reference Range Interpretation Comments Calcium Lvl (test code = Calcium Lvl) 9.2 8.5-10.5 [facility]2018-10-16 09:14:00 Test Item Value Reference Range Interpretation Comments B/C Ratio (test code = B/C Ratio) 14 1 6-25 [facility] HospitalRpbmixvUFSGZHPOXB8365-37-03 09:14:00 Test Item Value Reference Range Interpretation Comments Eosinophils # (test code 0.7 See_Comment [A utomated message] The = Eosinophils #) system whic h generated this result tra nsmitted reference range : <=0.5. The reference r jase was not used to int erpret this result as normal/abnormal . [facility] HospitalZannhyuBUIFDPKVYQ2144-01-73 09:14:00 Test Item Value Reference Range Interpretation Comments Monocytes # (test code 0.6 See_Comment [Aut omated message] The = Monocytes #) system which generated this result tra nsmitted reference range : <=0.8. The reference r jase was not used to int erpret this result as normal/abnormal . [facility] HospitalFqgtjxzSUOUFHLXOA5703-75-17 09:14:00 Test Item Value Reference Range Interpretation Comments Lymphocytes # (test code = Lymphocytes 2.4 1.0-5.5 #) [facility] HospitalBvtrbtjDHSQTBKEBV1344-58-37 09:14:00 Test Item Value Reference Range Interpretation Comments Basophils (test code = 1.0 See_Comment [Aut omated message] The Basophils) system which ge nerated this result tra nsmitted reference range : <=1.0. The reference r jase was not used to int erpret this result as normal/abnormal . [facility] HospitalEgvprfwNXSCQNGFQI7887-69-67 09:14:00 Test Item Value Reference Range Interpretation Comments Neutrophils # (test code = Neutrophils 5.1 1.5-8.1 #) [facility] [facility]phZNUTXSYQOH7365-[facility]-37 09:14:00 Test Item Value Reference Range Interpretation Comments Eosinophils (test code = 7.9 See_Comment [A utomated message] The Eosinophils) system which ge nerated this result tra nsmitted reference range : <=4.0. The reference r jase was not used to int erpret this result as normal/abnormal . [facility] HospitalSqqkieaDLPVQYURPH2574-90-64 09:14:00 Test Item Value Reference Range Interpretation Comments Monocytes (test code = Monocytes) 6.9 2.0-12.0 [facility] HospitalNxefsxuELRHSSLXGD6838-47-48 09:14:00 Test Item Value Reference Range Interpretation Comments Lymphocytes (test code = Lymphocytes) 27.3 20.0-40.0 [facility] HospitalUmslbepZOSHHRZTHE4110-20-10 09:14:00 Test Item Value Reference Range Interpretation Comments Macrocyte (test code = 1+ *ABN*(03/02/18 Macrocyte) 4:14 AM) [facility] HospitalWrsghywROKGZXKVUF8131-45-24 09:14:00 Test Item Value Reference Range Interpretation Comments Basophils # (test code 0.1 See_Comment [Aut omated message] The = Basophils #) system which generated this result tra nsmitted reference range : <=0.2. The reference r jase was not used to int erpret this result as normal/abnormal . [facility] HospitalKsogkpbREKODKYXJL2799-10-71 09:14:00 Test Item Value Reference Range Interpretation Comments Segs (test code = Segs) 56.9 45.0-75.0 [facility] HospitalZvcurewYXKQREIUFX5246-82-65 09:14:00 Test Item Value Reference Range Interpretation Comments RDW (test code = RDW) 12.1 11.5-14.5 [facility] HospitalGozaqypGLFHXGADTY3250-07-87 09:14:00 Test Item Value Reference Range Interpretation Comments MCV (test code = MCV) 100.2 80.0-98.0 [facility] HospitalTimjktbSRTPOEGDWN5980-56-87 09:14:00 Test Item Value Reference Range Interpretation Comments MCH (test code = MCH) 35.0 pg 27.0-31.0 [facility] HospitalFdoimsmTSXOAIXLKV0893-42-41 09:14:00 Test Item Value Reference Range Interpretation Comments Platelet (test code = Platelet) 342 133-450 [facility] HospitalXlwrhjoYIBBKRVILS5029-31-21 09:14:00 Test Item Value Reference Range Interpretation Comments MCHC (test code = MCHC) 35.0 32.0-36.0 [facility] HospitalBaynnivFJRKJPXOZG0676-89-43 09:14:00 Test Item Value Reference Range Interpretation Comments Hgb (test code = Hgb) 13.6 12.0-16.0 [facility] HospitalEsepgihEUOHPVKWRM8825-06-16 09:14:00 Test Item Value Reference Range Interpretation Comments WBC (test code = WBC) 8.9 3.7-10.4 [facility] HospitalNdhsjklMULEIVIIHE3951-70-32 09:14:00 Test Item Value Reference Range Interpretation Comments Hct (test code = Hct) 38.8 36.0-48.0 [facility] HospitalTgkxdxvVUDFWXHWYJ3294-75-81 09:14:00 Test Item Value Reference Range Interpretation Comments RBC (test code = RBC) 3.87 4.20-5.40 [facility] HospitalXxneonpJHTYWOZQTN1444-11-85 09:14:00 Test Item Value Reference Range Interpretation [...] interpr et this result as fredi l/abnormal. [facility]2018-10-16 09:14:00 Test Item Value Reference Range Interpretation Comments UA Leuk Est (test Negative (03/02/18 4:14 code = UA Leuk Est) AM) [facility] AND [id number] 09:14:00 Test Item Value Reference Range Interpretation Comments UA Nitrite (test code Negative (03/02/18 4:14 = UA Nitrite) AM) [facility] AND [id number] 09:14:00 Test Item Value Reference Range Interpretation Comments UA Blood (test code = Negative (03/02/18 4:14 UA Blood) AM) [facility] AND [id number] 09:14:00 Test Item Value Reference Range Interpretation Comments UA Bili (test code = Negative *NA*(03/02/18 UA Bili) 4:14 AM) [facility] AND [id number] 09:14:00 Test Item Value Reference Range Interpretation Comments UA Glucose (test code = UA Glucose) 500 mg/dL [facility] AND [id number] 09:14:00 Test Item Value Reference Range Interpretation Comments UA Protein (test code = UA Protein) 100 mg/dL [facility] AND [id number] 09:14:00 Test Item Value Reference Range Interpretation Comments UA pH (test code = UA pH) 7.0 1 5.0-8.0 [facility] AND [id number] 09:14:00 Test Item Value Reference Range Interpretation Comments UA Spec Grav (test code = UA Spec 1.016 1 Grav) [facility] AND [id number] 09:14:00 Test Item Value Reference Range Interpretation Comments UA Turbidity (test code = Clear (03/02/18 4:14 UA Turbidity) AM) [facility] AND [id number] 09:14:00 Test Item Value Reference Range Interpretation Comments UA Sq Epi (test code = UA Sq Epi) Few /LPF [facility] AND [id number] 09:14:00 Test Item Value Reference Range Interpretation Comments UA RBC (test code = 1 See_Comment [Automa owen message] The UA RBC) system which ge nerated this result transmit owen reference range : <=2. The reference range was not used to interpr et this result as fredi l/abnormal. [facility] AND [id number] 09:14:00 Test Item Value Reference Range Interpretation Comments UA Urobilinogen (test code = UA <=1.0 mg/dL 0.1-1.0 Urobilinogen) [facility] AND [id number] 09:14:00 Test Item Value Reference Range Interpretation Comments UA Hyal Cast (test 1 See_Comment [Automat ed message] The code = UA Hyal Cast) system which generated this result transmit owen reference range : <=2. The reference range was not used to interpr et this result as fredi l/abnormal. [facility] AND [id number] 09:14:00 Test Item Value Reference Range Interpretation Comments UA Mucus (test code = UA Mucus) Few /LPF [facility] AND [id number] 09:14:00 Test Item Value Reference Range Interpretation Comments UA Ketones (test code = UA Negative mg/dL Ketones) [facility] AND [id number] 09:14:00 Test Item Value Reference Range Interpretation Comments UA Color (test code = Yellow *NA*(03/02/18 UA Color) 4:14 AM) [facility] AND [id number] 22:07:00 Test Item Value Reference Range Interpretation Comments UA Urobilinogen (test code = UA <=1.0 mg/dL 0.1-1.0 Urobilinogen) [facility] AND [id number] 22:07:00 Test Item Value Reference Range Interpretation Comments UA Blood (test code = Small *ABN*(02/03/18 UA Blood) 5:07 PM) [facility] AND [id number] 22:07:00 Test Item Value Reference Range Interpretation Comments UA Leuk Est (test Negative (02/03/18 5:07 code = UA Leuk Est) PM) [facility] AND [id number] 22:07:00 Test Item Value Reference Range Interpretation Comments UA Sq Epi (test code = UA Sq Occasional /LPF Epi) [facility] AND [id number] 22:07:00 Test Item Value Reference Range Interpretation Comments UA Nitrite (test code Negative (02/03/18 5:07 = UA Nitrite) PM) [facility] AND [id number] 22:07:00 Test Item Value Reference Range Interpretation Comments UA Glucose (test code = UA Glucose) 500 mg/dL [facility] AND [id number] 22:07:00 Test Item Value Reference Range Interpretation Comments UA Ketones (test code = UA Ketones) 80 mg/dL [facility] AND [id number] 22:07:00 Test Item Value Reference Range Interpretation Comments UA Protein (test code = UA Negative mg/dL Protein) [facility] AND [id number] 22:07:00 Test Item Value Reference Range Interpretation Comments UA Mucus (test code = UA Mucus) Few /LPF [facility] AND [id number] 22:07:00 Test Item Value Reference Range Interpretation Comments UA RBC (test code = 1 See_Comment [Automa owen message] The UA RBC) system which ge nerated this result transmit owen reference range : <=2. The reference range was not used to interpr et this result as fredi l/abnormal. [facility] AND [id number] 22:07:00 Test Item Value Reference Range Interpretation Comments UA WBC (test code = 1 See_Comment [Automa owen message] The UA WBC) system which ge nerated this result transmit owen reference range : <=5. The reference range was not used to interpr et this result as fredi l/abnormal. [facility] AND [id number] 22:07:00 Test Item Value Reference Range Interpretation Comments UA Color (test code = Yellow *NA*(02/03/18 UA Color) 5:07 PM) [facility] AND [id number] 22:07:00 Test Item Value Reference Range Interpretation Comments UA Bili (test code = Negative *NA*(02/03/18 UA Bili) 5:07 PM) [facility] AND [id number] 22:07:00 Test Item Value Reference Range Interpretation Comments UA pH (test code = UA pH) 5.0 1 5.0-8.0 [facility] AND [id number] 22:07:00 Test Item Value Reference Range Interpretation Comments UA Turbidity (test code = Clear (02/03/18 5:07 UA Turbidity) PM) [facility] AND [id number] 22:07:00 Test Item Value Reference Range Interpretation Comments UA Spec Grav (test code = UA Spec 1.031 1 Grav) [facility] AND [id number] 22:07:00 Test Item Value Reference Range Interpretation Comments UA Urobilinogen (test code = UA <=1.0 mg/dL 0.1-1.0 Urobilinogen) [facility] AND [id number] 22:07:00 Test Item Value Reference Range Interpretation Comments UA Blood (test code = Small *ABN*(02/03/18 UA Blood) 5:07 PM) [facility] AND [id number] 22:07:00 Test Item Value Reference Range Interpretation Comments UA Leuk Est (test Negative (02/03/18 5:07 code = UA Leuk Est) PM) [facility] AND [id number] 22:07:00 Test Item Value Reference Range Interpretation Comments UA Sq Epi (test code = UA Sq Occasional /LPF Epi) [facility] AND [id number] 22:07:00 Test Item Value Reference Range Interpretation Comments UA Nitrite (test code Negative (02/03/18 5:07 = UA Nitrite) PM) [facility] AND [id number] 22:07:00 Test Item Value Reference Range Interpretation Comments UA Glucose (test code = UA Glucose) 500 mg/dL [facility] AND [id number] 22:07:00 Test Item Value Reference Range Interpretation Comments UA Ketones (test code = UA Ketones) 80 mg/dL [facility] AND [id number] 22:07:00 Test Item Value Reference Range Interpretation Comments UA Protein (test code = UA Negative mg/dL Protein) [facility] AND [id number] 22:07:00 Test Item Value Reference Range Interpretation Comments UA Mucus (test code = UA Mucus) Few /LPF [facility] AND [id number] 22:07:00 Test Item Value Reference Range Interpretation Comments UA RBC (test code = 1 See_Comment [Automa owen message] The UA RBC) system which ge nerated this result transmit owen reference range : <=2. The reference range was not used to interpr et this result as fredi l/abnormal. [facility] AND [id number] 22:07:00 Test Item Value Reference Range Interpretation Comments UA WBC (test code = 1 See_Comment [Automa owen message] The UA WBC) system which ge nerated this result transmit owen reference range : <=5. The reference range was not used to interpr et this result as fredi l/abnormal. [facility] AND [id number] 22:07:00 Test Item Value Reference Range Interpretation Comments UA Color (test code = Yellow *NA*(02/03/18 UA Color) 5:07 PM) [facility] AND [id number] 22:07:00 Test Item Value Reference Range Interpretation Comments UA Bili (test code = Negative *NA*(02/03/18 UA Bili) 5:07 PM) [facility] AND [id number] 22:07:00 Test Item Value Reference Range Interpretation Comments UA pH (test code = UA pH) 5.0 1 5.0-8.0 [facility] AND [id number] 22:07:00 Test Item Value Reference Range Interpretation Comments UA Turbidity (test code = Clear (02/03/18 5:07 UA Turbidity) PM) [facility] AND [id number] 22:07:00 Test Item Value Reference Range Interpretation Comments UA Spec Grav (test code = UA Spec 1.031 1 Grav) [facility] AND [id number] 22:07:00 Test Item Value Reference Range Interpretation Comments UA Urobilinogen (test code = UA <=1.0 mg/dL 0.1-1.0 Urobilinogen) [facility] AND [id number] 22:07:00 Test Item Value Reference Range Interpretation Comments UA Blood (test code = Small *ABN*(02/03/18 UA Blood) 5:07 PM) [facility] AND [id number] 22:07:00 Test Item Value Reference Range Interpretation Comments UA Leuk Est (test Negative (02/03/18 5:07 code = UA Leuk Est) PM) [facility] AND [id number] 22:07:00 Test Item Value Reference Range Interpretation Comments UA Sq Epi (test code = UA Sq Occasional /LPF Epi) [facility] AND [id number] 22:07:00 Test Item Value Reference Range Interpretation Comments UA Nitrite (test code Negative (02/03/18 5:07 = UA Nitrite) PM) [facility] AND [id number] 22:07:00 Test Item Value Reference Range Interpretation Comments UA Glucose (test code = UA Glucose) 500 mg/dL [facility] AND [id number] 22:07:00 Test Item Value Reference Range Interpretation Comments UA Ketones (test code = UA Ketones) 80 mg/dL [facility] AND [id number] 22:07:00 Test Item Value Reference Range Interpretation Comments UA Protein (test code = UA Negative mg/dL Protein) [facility] AND [id number] 22:07:00 Test Item Value Reference Range Interpretation Comments UA Mucus (test code = UA Mucus) Few /LPF [facility] AND [id number] 22:07:00 Test Item Value Reference Range Interpretation Comments UA RBC (test code = 1 See_Comment [Automa owen message] The UA RBC) system which ge nerated this result transmit owen reference range : <=2. The reference range was not used to interpr et this result as fredi l/abnormal. [facility] [id number] 22:07:00 Test Item Value Reference Range Interpretation Comments UA WBC (test code = 1 See_Comment [Automa owen message] The UA WBC) system which ge nerated this result transmit owen reference range : <=5. The reference range was not used to interpr et this result as fredi l/abnormal. [facility] AND [id number] 22:07:00 Test Item Value Reference Range Interpretation Comments UA Color (test code = Yellow *NA*(02/03/18 UA Color) 5:07 PM) [facility] AND [id number] 22:07:00 Test Item Value Reference Range Interpretation Comments UA Bili (test code = Negative *NA*(02/03/18 UA Bili) 5:07 PM) [facility] AND [id number] 22:07:00 Test Item Value Reference Range Interpretation Comments UA pH (test code = UA pH) 5.0 1 5.0-8.0 [facility] AND [id number] 22:07:00 Test Item Value Reference Range Interpretation Comments UA Turbidity (test code = Clear (02/03/18 5:07 UA Turbidity) PM) [facility] AND [id number] 22:07:00 Test Item Value Reference Range Interpretation Comments UA Spec Grav (test code = UA Spec 1.031 [address]) [facility] C[id number] 21:52:00 Test Item Value Reference Range Interpretation Comments Calcium Lvl (test code = Calcium Lvl) 8.5 8.5-10.5 [id number] 21:52:00 Test Item Value Reference Range Interpretation Comments BUN (test code = BUN) 12 7-22 [facility] HospitalCwanxghXEFNQVYAPWYY7672-90-60 21:52:00 Test Item Value Reference Range Interpretation Comments Glucose Lvl (test code = Glucose Lvl) 207 70-99 [facility]PetxgfcCXJIWILJPFBZQ1696-02-70 21:52:00 Test Item Value Reference Range Interpretation Comments S Preg (test code = S Negative *NA*(02/03/18 Preg) 4:52 PM) [facility] HospitalItujedvOXWYVVNCKP1132-02-99 21:52:00 Test Item Value Reference Range Interpretation Comments Basophils # (test code 0.1 See_Comment [Aut omated message] The = Basophils #) system which generated this result tra nsmitted reference range : <=0.2. The reference r jase was not used to int erpret this result as normal/abnormal . [facility] HospitalCrnyqhoPMWBLHBNRJ5664-51-72 21:52:00 Test Item Value Reference Range Interpretation Comments Macrocyte (test code = 1+ *ABN*(02/03/18 Macrocyte) 4:52 PM) [facility] Ho[id number] 21:52:00 Test Item Value Reference Range Interpretation Comments Neutrophils # (test code = Neutrophils 3.1 1.5-8.1 #) [facility] HospitalMomiezeFACBBWQCFV0053-06-43 21:52:00 Test Item Value Reference Range Interpretation Comments Basophils (test code = 1.1 See_Comment [Aut omated message] The Basophils) system which ge nerated this result tra nsmitted reference range : <=1.0. The reference r jase was not used to int erpret this result as normal/abnormal . [facility] HospitalUmhopsnSDLWXJQLJN5168-95-89 21:52:00 Test Item Value Reference Range Interpretation Comments Lymphocytes # (test code = Lymphocytes 2.7 1.0-5.5 #) [facility] HospitalLfkuugiABGLUIBRDR5121-82-28 21:52:00 Test Item Value Reference Range Interpretation Comments Monocytes # (test code 0.5 See_Comment [Aut omated message] The = Monocytes #) system which generated this result tra nsmitted reference range : <=0.8. The reference r jase was not used to int erpret this result as normal/abnormal . [facility] HospitalZroylufEIWQZOQXKL5882-88-26 21:52:00 Test Item Value Reference Range Interpretation Comments Eosinophils # (test code 0.6 See_Comment [A utomated message] The = Eosinophils #) system whic h generated this result tra nsmitted reference range : <=0.5. The reference r jase was not used to int erpret this result as normal/abnormal . [facility] HospitalOsxdmreBLZGRXBOOK4347-97-97 21:52:00 Test Item Value Reference Range Interpretation Comments Segs (test code = Segs) 45.1 45.0-75.0 [facility] HospitalTwbzqawWTCASHDGXU2929-23-77 21:52:00 Test Item Value Reference Range Interpretation Comments Monocytes (test code = Monocytes) 6.6 2.0-12.0 [facility] HospitalKmkrxhpROCLYZHYML7850-47-08 21:52:00 Test Item Value Reference Range Interpretation Comments Lymphocytes (test code = Lymphocytes) 38.8 20.0-40.0 [facility] HospitalVzzmytuTZTTVBRGJD1136-21-91 21:52:00 Test Item Value Reference Range Interpretation Comments Eosinophils (test code = 8.4 See_Comment [A utomated message] The Eosinophils) system which ge nerated this result tra nsmitted reference range : <=4.0. The reference r jase was not used to int erpret this result as normal/abnormal . [facility] HospitalYvydjlqYTBVAVYZRE5051-62-28 21:52:00 Test Item Value Reference Range Interpretation Comments RBC (test code = RBC) 3.87 4.20-5.40 [facility] HospitalIgwhmpjXPLYCBQVXS5260-31-51 21:52:00 Test Item Value Reference Range Interpretation Comments Hct (test code = Hct) 38.4 36.0-48.0 [facility] HospitalLgtwmuoLBYAXSDMEA3634-82-32 21:52:00 Test Item Value Reference Range Interpretation Comments Hgb (test code = Hgb) 13.4 12.0-16.0 [facility] HospitalNvxidmzUCOMBWQQOZ2166-82-74 21:52:00 Test Item Value Reference Range Interpretation Comments MCV (test code = MCV) 99.3 80.0-98.0 [facility] HospitalMggfxzmRYSRKGDNJD8613-23-84 21:52:00 Test Item Value Reference Range Interpretation Comments Platelet (test code = Platelet) 282 133-450 [facility] HospitalFxsewldRQJMICHXMU2530-13-86 21:52:00 Test Item Value Reference Range Interpretation Comments RDW (test code = RDW) 12.7 11.5-14.5 [facility]SagreftFEASZOPBDQ9261-47-27 21:52:00 Test Item Value Reference Range Interpretation Comments MCHC (test code = MCHC) 34.8 32.0-36.0 [facility]ZexxqpyAOSORASKIF0433-25-75 21:52:00 Test Item Value Reference Range Interpretation Comments MCH (test code = MCH) 34.6 pg 27.0-31.0 [facility]UkngkcuINJBPFACMW7196-24-33 21:52:00 Test Item Value Reference Range Interpretation Comments MPV (test code = MPV) 8.9 7.4-10.4 [facility] HospitalFiuwnskDTWZCBVXFJ9421-71-57 21:52:00 Test Item Value Reference Range Interpretation Comments WBC (test code = WBC) 6.9 3.7-10.4 [facility] HospitalCxxzxqtBQIKUC4902-52-05 21:52:00 Test Item Value Reference Range Interpretation Comments LDL Direct (test code = LDL Direct) [facility] CenterPvuxnzjBQJMBP0707-87-98 21:52:00 Test Item Value Reference Range Interpretation Comments Chol (test code = Chol) [address] [facility] CenterTllekqoHNEUBX4581-81-24 21:52:00 Test Item Value Reference Range Interpretation Comments HDL (test code = HDL) [facility] CenterIdtgwotHJGFNY5905-99-91 21:52:00 Test Item Value Reference Range Interpretation Comments CHD Risk (test code = CHD Risk) 4.74 1 3.90-5.80 [facility] HospitalHuqtdogNUBBKA9972-60-69 21:52:00 Test Item Value Reference Range Interpretation Comments Trig (test code = Trig) [address] [facility] CenterZflgrrjSXETOC3733-80-30 21:52:00 Test Item Value Reference Range Interpretation Comments VLDL (test code = See Note 2*NA*(02/03/18 VLDL) 4:52 PM) [facility] HospitalAbfuetwNSSULY1737-17-82 21:52:00 Test Item Value Reference Range Interpretation Comments LDL (Calculated) (test code = See Note mg/dL LDL (Calculated)) [facility] HNRYXSWFB7913-25-87 21:52:00 Test Item Value Reference Range Interpretation Comments Hgb A1C (test code = Hgb A1C) 9.4 [place] 413508-09-19 21:52:00 Test Item Value Reference Range Interpretation Comments A/G Ratio (test code = A/G Ratio) 1.1 1 0.7-1.6 [place] 413508-09-19 21:52:00 Test Item Value Reference Range Interpretation Comments Globulin (test code = Globulin) 3.1 2.7-4.2 [place] 413508-09-19 21:52:00 Test Item Value Reference Range Interpretation Comments Total Protein (test code = Total 6.5 6.4-8.4 Protein) [place] 413508-09-19 21:52:00 Test Item Value Reference Range Interpretation Comments AST (test code = AST) 17 See_Comment [Auto mated message] The system which ge nerated this result transmit owen reference range : <=37. The reference range was not used to interpr et this result as fredi l/abnormal. [place] 413508-09-19 21:52:00 Test Item Value Reference Range Interpretation Comments ALT (test code = ALT) 24 See_Comment [Auto mated message] The system which ge nerated this result transmit owen reference range : <=65. The reference range was not used to interpr et this result as fredi l/abnormal. [facility]2018-09-19 21:52:00 Test Item Value Reference Range Interpretation Comments Alk Phos (test code = Alk Phos) 107 39-136 [facility]2018-09-19 21:52:00 Test Item Value Reference Range Interpretation Comments Bili Total (test code = Bili Total) 0.5 0.2-1.3 [place] [facility] 21:52:00 Test Item Value Reference Range Interpretation Comments Bili Indirect (test 0.4 See_Comment [Automa owen message] The code = Bili Indirect) system which generated this result tra nsmitted reference range : <=1.0. The reference r jase was not used to int erpret this result as normal/abnormal . [place] 413508-09-19 21:52:00 Test Item Value Reference Range Interpretation Comments Bili Direct (test code 0.1 See_Comment [Aut omated message] The = Bili Direct) system which generated this result tra nsmitted reference range : <=0.3. The reference r jase was not used to int erpret this result as fredi l/abnormal. [facility]2018-09-19 21:52:00 Test Item Value Reference Range Interpretation Comments Albumin Lvl (test code = Albumin Lvl) 3.4 3.5-5.0 [facility]2018-09-19 21:52:00 Test Item Value Reference Range Interpretation Comments Ketone Quantitative (test code = Ketone 2.44 Quantitative) [facility]DvvwyxaSYZIPWRNTOCC9016-64-23 21:52:00 Test Item Value Reference Range Interpretation Comments AGAP (test code = AGAP) 15.3 10.0-20.0 [facility] HospitalNclwniaRSXOEYKDEQGX6769-65-17 21:52:00 Test Item Value Reference Range Interpretation Comments eGFR (test code = eGFR) 120 [facility] HospitalPdbmplmJONYNVWNKQYW9438-03-41 21:52:00 Test Item Value Reference Range Interpretation Comments Creatinine Lvl (test code = Creatinine 0.69 0.50-1.40 Lvl) [facility] HospitalXskholrQPNXBQZSRDIA5946-22-53 21:52:00 Test Item Value Reference Range Interpretation Comments Sodium Lvl (test code = Sodium Lvl) 138 135-145 [facility] HospitalWlvqphrEVLOEJAZESJR3058-33-78 21:52:00 Test Item Value Reference Range Interpretation Comments Potassium Lvl (test code = Potassium 4.3 3.5-5.1 Lvl) [facility] HospitalLzfkkvlCJKQLUMQHPCY0781-07-59 21:52:00 Test Item Value Reference Range Interpretation Comments Chloride Lvl (test code = Chloride Lvl) 105 95-109 [facility] HospitalDhttoikOBBKOHSKCAAJ3322-34-13 21:52:00 Test Item Value Reference Range Interpretation Comments CO2 (test code = CO2) 22 24-32 [facility] HospitalNkqysbbIOLWRAQPUIFI1087-06-94 21:52:00 Test Item Value Reference Range Interpretation Comments Calcium Lvl (test code = Calcium Lvl) 8.5 8.5-10.5 [facility] HospitalKlvjshvLZASRKIVKRVG7085-87-59 21:52:00 Test Item Value Reference Range Interpretation Comments BUN (test code = BUN) 12 7-22 [facility] HospitalNlvpokzWWNXNAOBAPXX2030-78-03 21:52:00 Test Item Value Reference Range Interpretation Comments Glucose Lvl (test code = Glucose Lvl) 207 70-99 [facility]wsdiuEYZAOFXLXTVFJ9570-20-57 21:52:00 Test Item Value Reference Range Interpretation Comments S Preg (test code = S Negative *NA*(02/03/18 Preg) 4:52 PM) [facility] HospitalGlounruHBDFJKRJGW1250-84-04 21:52:00 Test Item Value Reference Range Interpretation Comments Basophils # (test code 0.1 See_Comment [Aut omated message] The = Basophils #) system which generated this result tra nsmitted reference range : <=0.2. The reference r jase was not used to int erpret this result as normal/abnormal . [facility] HospitalDmrcuzeOIKDWZCTOH2200-40-80 21:52:00 Test Item Value Reference Range Interpretation Comments Macrocyte (test code = 1+ *ABN*(02/03/18 Macrocyte) 4:52 PM) [facility] HospitalOecsqdfCGDVTWFHYQ3620-23-73 21:52:00 Test Item Value Reference Range Interpretation Comments Neutrophils # (test code = Neutrophils 3.1 1.5-8.1 #) [facility] HospitalLcpmwaeXVSFQILPUZ4681-26-84 21:52:00 Test Item Value Reference Range Interpretation Comments Basophils (test code = 1.1 See_Comment [Aut omated message] The Basophils) system which ge nerated this result tra nsmitted reference range : <=1.0. The reference r jase was not used to int erpret this result as normal/abnormal . [facility] HospitalEkbhnweZUFXUJCZCS0800-19-40 21:52:00 Test Item Value Reference Range Interpretation Comments Lymphocytes # (test code = Lymphocytes 2.7 1.0-5.5 #) [facility] HospitalXzjuodyFWDUFBIHYE0416-84-28 21:52:00 Test Item Value Reference Range Interpretation Comments Monocytes # (test code 0.5 See_Comment [Aut omated message] The = Monocytes #) system which generated this result tra nsmitted reference range : <=0.8. The reference r jase was not used to int erpret this result as normal/abnormal . [facility] HospitalEuocsujQGEDYMLDQC3520-73-97 21:52:00 Test Item Value Reference Range Interpretation Comments Eosinophils # (test code 0.6 See_Comment [A utomated message] The = Eosinophils #) system whic h generated this result tra nsmitted reference range : <=0.5. The reference r jase was not used to int erpret this result as normal/abnormal . [facility] HospitalPlpcnhiSFESEISRJI9958-68-16 21:52:00 Test Item Value Reference Range Interpretation Comments Segs (test code = Segs) 45.1 45.0-75.0 [facility] HospitalZmdtiopHURBNIKFGO8824-12-45 21:52:00 Test Item Value Reference Range Interpretation Comments Monocytes (test code = Monocytes) 6.6 2.0-12.0 [facility] HospitalNmwuzwyVTIIFFBIJG2396-90-29 21:52:00 Test Item Value Reference Range Interpretation Comments Lymphocytes (test code = Lymphocytes) 38.8 20.0-40.0 [facility] HospitalTbnbvwdKIQCVVARDG0704-94-22 21:52:00 Test Item Value Reference Range Interpretation Comments Eosinophils (test code = 8.4 See_Comment [A utomated message] The Eosinophils) system which ge nerated this result tra nsmitted reference range : <=4.0. The reference r jase was not used to int erpret this result as normal/abnormal . [facility] HospitalUkuusefYCBCOWHFYA3811-30-81 21:52:00 Test Item Value Reference Range Interpretation Comments RBC (test code = RBC) 3.87 4.20-5.40 [facility] HospitalWmknyurIVMIEVCACH1167-40-69 21:52:00 Test Item Value Reference Range Interpretation Comments Hct (test code = Hct) 38.4 36.0-48.0 [facility] HospitalApdjivdXLDUNSWAQS2793-95-34 21:52:00 Test Item Value Reference Range Interpretation Comments Hgb (test code = Hgb) 13.4 12.0-16.0 [facility] HospitalAsowpdkGTKEJNNLKE0881-16-70 21:52:00 Test Item Value Reference Range Interpretation Comments MCV (test code = MCV) 99.3 80.0-98.0 [facility] HospitalRvjkanlNRTDZLPAKL9240-87-19 21:52:00 Test Item Value Reference Range Interpretation Comments Platelet (test code = Platelet) 282 133-450 [facility] HospitalEphjughPWFRVTIRWW0649-00-18 21:52:00 Test Item Value Reference Range Interpretation Comments RDW (test code = RDW) 12.7 11.5-14.5 [facility] HospitalEdlssciUUGLOGCTXX6630-85-26 21:52:00 Test Item Value Reference Range Interpretation Comments MCHC (test code = MCHC) 34.8 32.0-36.0 [facility] HospitalZnzmmysJIZCXLOAGX5100-71-20 21:52:00 Test Item Value Reference Range Interpretation Comments MCH (test code = MCH) 34.6 pg 27.0-31.0 [facility]McimbncGDLDMJXCGG0776-17-29 21:52:00 Test Item Value Reference Range Interpretation Comments MPV (test code = MPV) 8.9 7.4-10.4 [facility] HospitalOltjuexMDRHKZEJLO1013-27-44 21:52:00 Test Item Value Reference Range Interpretation Comments WBC (test code = WBC) 6.9 3.7-10.4 [facility] HospitalGjexrtbYIVZJA3189-13-51 21:52:00 Test Item Value Reference Range Interpretation Comments LDL Direct (test code = LDL Direct) [facility]NqialejWMBWFO5160-06-20 21:52:00 Test Item Value Reference Range Interpretation Comments Chol (test code = Chol) 185 [facility] HospitalKfsekanUDACGI4053-76-60 21:52:00 Test Item Value Reference Range Interpretation Comments HDL (test code = HDL) 39 [facility] CenterNudzenrWLDWAJ4127-88-36 21:52:00 Test Item Value Reference Range Interpretation Comments CHD Risk (test code = CHD Risk) 4.74 1 3.90-5.80 [facility] HospitalGaecralNWTWPO2434-63-59 21:52:00 Test Item Value Reference Range Interpretation Comments Trig (test code = Trig) 441 [facility] HospitalDvpxlgrQLBVQU9180-01-89 21:52:00 Test Item Value Reference Range Interpretation Comments VLDL (test code = See Note 2*NA*(02/03/18 VLDL) 4:52 PM) [facility] HospitalUgjuysrZEMEIS7511-45-33 21:52:00 Test Item Value Reference Range Interpretation Comments LDL (Calculated) (test code = See Note mg/dL LDL (Calculated)) [facility] WQNPAKDRN2911-06-16 21:52:00 Test Item Value Reference Range Interpretation Comments Hgb A1C (test code = Hgb A1C) 9.4 [facility] HospitalCHEM OLWIB8352-97-55 21:52:00 Test Item Value Reference Range Interpretation Comments A/G Ratio (test code = A/G Ratio) 1.1 1 0.7-1.6 [facility] HospitalCHEM FXMUF7164-38-09 21:52:00 Test Item Value Reference Range Interpretation Comments Globulin (test code = Globulin) 3.1 2.7-4.2 [place] 413508-09-19 21:52:00 Test Item Value Reference Range Interpretation Comments Total Protein (test code = Total 6.5 6.4-8.4 Protein) [place] 413508-09-19 21:52:00 Test Item Value Reference Range Interpretation Comments AST (test code = AST) 17 See_Comment [Auto mated message] The system which ge nerated this result transmit owen reference range : <=37. The reference range was not used to interpr et this result as fredi l/abnormal. [facility]2018-09-19 21:52:00 Test Item Value Reference Range Interpretation Comments ALT (test code = ALT) 24 See_Comment [Auto mated message] The system which ge nerated this result transmit owen reference range : <=65. The reference range was not used to interpr et this result as fredi l/abnormal. [facility]2018-09-19 21:52:00 Test Item Value Reference Range Interpretation Comments Alk Phos (test code = Alk Phos) 107 39-136 [facility]2018-09-19 21:52:00 Test Item Value Reference Range Interpretation Comments Bili Total (test code = Bili Total) 0.5 0.2-1.3 [facility]2018-09-19 21:52:00 Test Item Value Reference Range Interpretation Comments Bili Indirect (test 0.4 See_Comment [Automa owen message] The code = Bili Indirect) system which generated this result tra nsmitted reference range : <=1.0. The reference r jase was not used to int erpret this result as normal/abnormal . [facility]2018-09-19 21:52:00 Test Item Value Reference Range Interpretation Comments Bili Direct (test code 0.1 See_Comment [Aut omated message] The = Bili Direct) system which generated this result tra nsmitted reference range : <=0.3. The reference r jase was not used to int erpret this result as fredi l/abnormal. [place] 413508-09-19 21:52:00 Test Item Value Reference Range Interpretation Comments Albumin Lvl (test code = Albumin Lvl) 3.4 3.5-5.0 [place] 413508-09-19 21:52:00 Test Item Value Reference Range Interpretation Comments Ketone Quantitative (test code = Ketone 2.44 Quantitative) [facility] HospitalKsswlzkNKAYIOJFZUCM5267-38-13 21:52:00 Test Item Value Reference Range Interpretation Comments AGAP (test code = AGAP) 15.3 10.0-20.0 [facility] HospitalVidbkbsOAVZBZMLCZMB1907-87-79 21:52:00 Test Item Value Reference Range Interpretation Comments eGFR (test code = eGFR) 120 [facility] HospitalIsytackAPUFRWSDVHFX4367-10-63 21:52:00 Test Item Value Reference Range Interpretation Comments Creatinine Lvl (test code = Creatinine 0.69 0.50-1.40 Lvl) [facility] HospitalSwamtnvCDCZIFBHBVBC7859-72-04 21:52:00 Test Item Value Reference Range Interpretation Comments Sodium Lvl (test code = Sodium Lvl) 138 135-145 [facility] HospitalMricbmvDTXJZSVISAAX1511-71-27 21:52:00 Test Item Value Reference Range Interpretation Comments Potassium Lvl (test code = Potassium 4.3 3.5-5.1 Lvl) [facility] HospitalWtpsytkZOMWCLQFKJAV6539-12-34 21:52:00 Test Item Value Reference Range Interpretation Comments Chloride Lvl (test code = Chloride Lvl) 105 95-109 [facility] HospitalJxnnmhrSASBMJBMLHJY3861-72-79 21:52:00 Test Item Value Reference Range Interpretation Comments CO2 (test code = CO2) 22 24-32 [facility]2018-09-19 21:52:00 Test Item Value Reference Range Interpretation Comments Total Protein (test code = Total 6.5 6.4-8.4 Protein) [facility]2018-09-19 21:52:00 Test Item Value Reference Range Interpretation Comments AST (test code = AST) 17 See_Comment [Auto mated message] The system which ge nerated this result transmit owen reference range : <=37. The reference range was not used to interpr et this result as fredi l/abnormal. [facility]2018-09-19 21:52:00 Test Item Value Reference Range Interpretation Comments ALT (test code = ALT) 24 See_Comment [Auto mated message] The system which ge nerated this result transmit owen reference range : <=65. The reference range was not used to interpr et this result as fredi l/abnormal. [facility]2018-09-19 21:52:00 Test Item Value Reference Range Interpretation Comments Alk Phos (test code = Alk Phos) 107 39-136 [facility]2018-09-19 21:52:00 Test Item Value Reference Range Interpretation Comments Bili Total (test code = Bili Total) 0.5 0.2-1.3 [facility]2018-09-19 21:52:00 Test Item Value Reference Range Interpretation Comments Bili Indirect (test 0.4 See_Comment [Automa owen message] The code = Bili Indirect) system which generated this result tra nsmitted reference range : <=1.0. The reference r jase was not used to int erpret this result as normal/abnormal . [facility]2018-09-19 21:52:00 Test Item Value Reference Range Interpretation Comments Bili Direct (test code 0.1 See_Comment [Aut omated message] The = Bili Direct) system which generated this result tra nsmitted reference range : <=0.3. The reference r jase was not used to int erpret this result as fredi l/abnormal. [facility]2018-09-19 21:52:00 Test Item Value Reference Range Interpretation Comments Albumin Lvl (test code = Albumin Lvl) 3.4 3.5-5.0 [facility]2018-09-19 21:52:00 Test Item Value Reference Range Interpretation Comments Ketone Quantitative (test code = Ketone 2.44 Quantitative) [facility] HospitalVonaehsETJUNNKZAIIC8999-42-27 21:52:00 Test Item Value Reference Range Interpretation Comments AGAP (test code = AGAP) 15.3 10.0-20.0 [facility] HospitalWghjvptBHFTJDDEWWAX1530-30-74 21:52:00 Test Item Value Reference Range Interpretation Comments eGFR (test code = eGFR) 120 [facility] HospitalHreibacXXEQKUMPCLIY6060-69-35 21:52:00 Test Item Value Reference Range Interpretation Comments Creatinine Lvl (test code = Creatinine 0.69 0.50-1.40 Lvl) [place] 702318-09-19 21:52:00 Test Item Value Reference Range Interpretation Comments Sodium Lvl (test code = Sodium Lvl) 138 135-145 [facility] HospitalGfaldnnCTQPICDYXGRE0254-40-86 21:52:00 Test Item Value Reference Range Interpretation Comments Potassium Lvl (test code = Potassium 4.3 3.5-5.1 Lvl) [facility] HospitalIemgzwlVRTMGASQBLCV9053-83-31 21:52:00 Test Item Value Reference Range Interpretation Comments Chloride Lvl (test code = Chloride Lvl) 105 95-109 [facility] HospitalJrsfgwsZCXPMBNIOJUT6188-72-88 21:52:00 Test Item Value Reference Range Interpretation Comments CO2 (test code = CO2) 22 24-32 [facility] HospitalKvfiaddYQWHPODMMLEK9804-83-76 21:52:00 Test Item Value Reference Range Interpretation Comments Calcium Lvl (test code = Calcium Lvl) 8.5 8.5-10.5 [facility] HospitalSvtbxtkVYCTUZGDNQGG8414-96-50 21:52:00 Test Item Value Reference Range Interpretation Comments BUN (test code = BUN) 12 7-22 [facility] HospitalCbccgadNHKOIDWHNOAY7215-40-12 21:52:00 Test Item Value Reference Range Interpretation Comments Glucose Lvl (test code = Glucose Lvl) 207 70-99 [place] 01357018-09-19 21:52:00 Test Item Value Reference Range Interpretation Comments S Preg (test code = S Negative *NA*(02/03/18 Preg) 4:52 PM) [facility] HospitalIaubwtgKNDBYNRRAN8746-57-97 21:52:00 Test Item Value Reference Range Interpretation Comments Basophils # (test code 0.1 See_Comment [Aut omated message] The = Basophils #) system which generated this result tra nsmitted reference range : <=0.2. The reference r jase was not used to int erpret this result as normal/abnormal . [facility] HospitalUwdhjdcXZKUQIZCUQ7434-30-37 21:52:00 Test Item Value Reference Range Interpretation Comments Macrocyte (test code = 1+ *ABN*(02/03/18 Macrocyte) 4:52 PM) [facility] HospitalHwbraheVQEUJONUSU0290-91-19 21:52:00 Test Item Value Reference Range Interpretation Comments Neutrophils # (test code = Neutrophils 3.1 1.5-8.1 #) [facility] HospitalSksjgroJXNSJMISVQ0156-80-27 21:52:00 Test Item Value Reference Range Interpretation Comments Basophils (test code = 1.1 See_Comment [Aut omated message] The Basophils) system which ge nerated this result tra nsmitted reference range : <=1.0. The reference r jase was not used to int erpret this result as normal/abnormal . [facility] HospitalTtnolyhZBMJVFOHCR0313-21-55 21:52:00 Test Item Value Reference Range Interpretation Comments Lymphocytes # (test code = Lymphocytes 2.7 1.0-5.5 #) [facility] HospitalEcvoasqKXEUVLZEEC1167-57-75 21:52:00 Test Item Value Reference Range Interpretation Comments Monocytes # (test code 0.5 See_Comment [Aut omated message] The = Monocytes #) system which generated this result tra nsmitted reference range : <=0.8. The reference r jase was not used to int erpret this result as normal/abnormal . [facility] HospitalDxrmsozLCCPNBXAOI2771-69-22 21:52:00 Test Item Value Reference Range Interpretation Comments Eosinophils # (test code 0.6 See_Comment [A utomated message] The = Eosinophils #) system whic h generated this result tra nsmitted reference range : <=0.5. The reference r jase was not used to int erpret this result as normal/abnormal . [facility] HospitalExyirrzDCVCSBTMAN0599-93-35 21:52:00 Test Item Value Reference Range Interpretation Comments Segs (test code = Segs) 45.1 45.0-75.0 [facility] HospitalQjprgydDTBPTDLRKN9407-76-19 21:52:00 Test Item Value Reference Range Interpretation Comments Monocytes (test code = Monocytes) 6.6 2.0-12.0 [facility] HospitalOehegpyBMZLWWYIXK3244-28-30 21:52:00 Test Item Value Reference Range Interpretation Comments Lymphocytes (test code = Lymphocytes) 38.8 20.0-40.0 [facility] HospitalLzqdjzvVUGPPMPSTB1389-83-86 21:52:00 Test Item Value Reference Range Interpretation Comments Eosinophils (test code = 8.4 See_Comment [A utomated message] The Eosinophils) system which ge nerated this result tra nsmitted reference range : <=4.0. The reference r jase was not used to int erpret this result as normal/abnormal . [facility] HospitalNcpfagaJBWZMRMQMY0610-94-25 21:52:00 Test Item Value Reference Range Interpretation Comments RBC (test code = RBC) 3.87 4.20-5.40 [facility] HospitalThavhklQDKZNCEQNA2498-00-37 21:52:00 Test Item Value Reference Range Interpretation Comments Hct (test code = Hct) 38.4 36.0-48.0 [facility] HospitalThjtgfmCXTAFHPJSJ6649-39-87 21:52:00 Test Item Value Reference Range Interpretation Comments Hgb (test code = Hgb) 13.4 12.0-16.0 [facility] HospitalRdfoaxyHFXXLAVQEF6251-76-90 21:52:00 Test Item Value Reference Range Interpretation Comments MCV (test code = MCV) 99.3 80.0-98.0 [facility] HospitalVhywluzFTWUXPETBE9462-69-01 21:52:00 Test Item Value Reference Range Interpretation Comments Platelet (test code = Platelet) 282 133-450 [facility] HospitalZnzyjvnQXKSSITXES8841-24-67 21:52:00 Test Item Value Reference Range Interpretation Comments RDW (test code = RDW) 12.7 11.5-14.5 [facility] HospitalPuvgukyWXMFOYYFQL7589-00-92 21:52:00 Test Item Value Reference Range Interpretation Comments MCHC (test code = MCHC) 34.8 32.0-36.0 [facility] HospitalWntmirkIFYXSNMSFY1871-34-35 21:52:00 Test Item Value Reference Range Interpretation Comments MCH (test code = MCH) 34.6 pg 27.0-31.0 [facility] HospitalAvvcoqnHKAEYHJWFU1175-05-29 21:52:00 Test Item Value Reference Range Interpretation Comments MPV (test code = MPV) 8.9 7.4-10.4 [facility] HospitalOwzbjosEBUHALFNDL8134-07-69 21:52:00 Test Item Value Reference Range Interpretation Comments WBC (test code = WBC) 6.9 3.7-10.4 [facility]PazcnvjKTKDZA7937-34-73 21:52:00 Test Item Value Reference Range Interpretation Comments LDL Direct (test code = LDL Direct) [facility] HospitalVylawnfSCAUER3387-09-61 21:52:00 Test Item Value Reference Range Interpretation Comments Chol (test code = Chol) 185 [facility] HospitalAleittrZNTFKH7529-50-15 21:52:00 Test Item Value Reference Range Interpretation Comments HDL (test code = HDL) 39 [facility] HospitalQwxaarqNIKGFF3836-51-84 21:52:00 Test Item Value Reference Range Interpretation Comments CHD Risk (test code = CHD Risk) 4.74 1 3.90-5.80 [facility] HospitalEgyejsdNTQXMF4659-04-94 21:52:00 Test Item Value Reference Range Interpretation Comments Trig (test code = Trig) 441 [facility] HospitalIbyaijpKLJJQF6757-03-88 21:52:00 Test Item Value Reference Range Interpretation Comments VLDL (test code = See Note 2*NA*(02/03/18 VLDL) 4:52 PM) [facility] HospitalTbucmcwQSDKVJ6383-45-44 21:52:00 Test Item Value Reference Range Interpretation Comments LDL (Calculated) (test code = See Note mg/dL LDL (Calculated)) [facility] HospitalApaja FFOZVDJXC8846-06-03 21:52:00 Test Item Value Reference Range Interpretation Comments Hgb A1C (test code = Hgb A1C) 9.4 [facility] HospitalSoloLearn AHNIX5741-38-30 21:52:00 Test Item Value Reference Range Interpretation Comments A/G Ratio (test code = A/G Ratio) 1.1 1 0.7-1.6 [facility]2018-09-19 21:52:00 Test Item Value Reference Range Interpretation Comments Globulin (test code = Globulin) 3.1 2.7-4.2 [facility] HospitalSoloLearn MZOIF3214-02-43 20:35:24 Test Item Value Reference Range Interpretation Comments Ketone Quantitative (test code = Ketone 0.79 Quantitative) [facility] LJJDK9591-74-67 20:35:24 Test Item Value Reference Range Interpretation Comments Phosphorus (test code = Phosphorus) 3.4 2.5-4.5 [facility]2018-08-06 20:35:24 Test Item Value Reference Range Interpretation Comments Hgb A1C (test code = Hgb A1C) 8.8 [facility] QTOTS7468-30-71 20:35:24 Test Item Value Reference Range Interpretation Comments Ketone Quantitative (test code = Ketone 0.79 Quantitative) [facility] HospitalSoloLearn TEWSM5139-97-93 20:35:24 Test Item Value Reference Range Interpretation Comments Phosphorus (test code = Phosphorus) 3.4 2.5-4.5 [facility] HospitalTRAILBLAZE FITNESS CON[facility]ULTINGMAIN [facility] SXEEWHDVK7644-36-54 20:35:24 Test Item Value Reference Range Interpretation Comments Hgb A1C (test code = Hgb A1C) 8.8 [facility] AZYAS7122-55-52 20:35:24 Test Item Value Reference Range Interpretation Comments Ketone Quantitative (test code = Ketone 0.79 Quantitative) [facility] IRZVZ5227-96-47 20:35:24 Test Item Value Reference Range Interpretation Comments Phosphorus (test code = Phosphorus) 3.4 2.5-4.5 [facility] [id number] 20:35:24 Test Item Value Reference Range Interpretation Comments Hgb A1C (test code = Hgb A1C) 8.8 [id number] 20:35:00 Test Item Value Reference Range Interpretation Comments Magnesium Lvl (test code = Magnesium 1.9 1.8-2.4 Lvl) [facility] [id number] 20:35:00 Test Item Value Reference Range Interpretation Comments Magnesium Lvl (test code = Magnesium 1.9 1.8-2.4 Lvl) [facility] [id number] 20:35:00 Test Item Value Reference Range Interpretation Comments Magnesium Lvl (test code = Magnesium 1.9 1.8-2.4 Lvl) [facility] AND [id number] 18:28:00 Test Item Value Reference Range Interpretation Comments UA RBC (test code = no gt See_Comment [Automa owen message] The UA RBC) system which ge nerated this result transmit owen reference range : <=2. The reference range was not used to interpr et this result as fredi l/abnormal. [facility] AND [id number] 18:28:00 Test Item Value Reference Range Interpretation Comments UA Ketones (test code = UA Trace mg/dL Ketones) [facility] AND [id number] 18:28:00 Test Item Value Reference Range Interpretation Comments UA Bili (test code = Negative *NA*(12/21/17 UA Bili) 1:28 PM) [facility] AND [id number] 18:28:00 Test Item Value Reference Range Interpretation Comments UA Blood (test code = Negative (12/21/17 1:28 UA Blood) PM) [facility] AND [id number] 18:28:00 Test Item Value Reference Range Interpretation Comments UA Nitrite (test code Negative (12/21/17 1:28 = UA Nitrite) PM) [facility] AND [id number] 18:28:00 Test Item Value Reference Range Interpretation Comments UA Leuk Est (test Negative (12/21/17 1:28 code = UA Leuk Est) PM) [facility] AND [id number] 18:28:00 Test Item Value Reference Range Interpretation Comments UA Glucose (test code = UA Glucose) 500 mg/dL [facility] AND [id number] 18:28:00 Test Item Value Reference Range Interpretation Comments UA Sq Epi (test code = UA Sq Occasional /LPF Epi) [facility] AND [id number] 18:28:00 Test Item Value Reference Range Interpretation Comments UA WBC (test code = no gt See_Comment [Automa owen message] The UA WBC) system which ge nerated this result transmit owen reference range : <=5. The reference range was not used to interpr et this result as fredi l/abnormal. [facility] AND [id number] 18:28:00 Test Item Value Reference Range Interpretation Comments UA Color (test code = UA Color) Colorless [facility] AND [id number] 18:28:00 Test Item Value Reference Range Interpretation Comments UA Urobilinogen (test code = UA <=1.0 mg/dL 0.1-1.0 Urobilinogen) [facility] AND [id number] 18:28:00 Test Item Value Reference Range Interpretation Comments UA pH (test code = UA pH) 6.0 1 5.0-8.0 [facility] AND [id number] 18:28:00 Test Item Value Reference Range Interpretation Comments UA Protein (test code = UA Negative mg/dL Protein) [facility] AND [id number] 18:28:00 Test Item Value Reference Range Interpretation Comments UA Turbidity (test code = Clear (12/21/17 1:28 UA Turbidity) PM) [facility] AND [id number] 18:28:00 Test Item Value Reference Range Interpretation Comments UA Spec Grav (test code = UA Spec 1.027 1 Grav) [facility] [id number] 18:28:00 Test Item Value Reference Range Interpretation Comments U Preg (test code = U Negative (12/21/17 1:28 Preg) PM) [facility] AND [id number] 18:28:00 Test Item Value Reference Range Interpretation Comments UA RBC (test code = no gt See_Comment [Automa owen message] The UA RBC) system which ge nerated this result transmit owen reference range : <=2. The reference range was not used to interpr et this result as fredi l/abnormal. [facility] AND [id number] 18:28:00 Test Item Value Reference Range Interpretation Comments UA Ketones (test code = UA Trace mg/dL Ketones) [facility] AND [id number] 18:28:00 Test Item Value Reference Range Interpretation Comments UA Bili (test code = Negative *NA*(12/21/17 UA Bili) 1:28 PM) [facility] AND [id number] 18:28:00 Test Item Value Reference Range Interpretation Comments UA Blood (test code = Negative (12/21/17 1:28 UA Blood) PM) [facility] AND [id number] 18:28:00 Test Item Value Reference Range Interpretation Comments UA Nitrite (test code Negative (12/21/17 1:28 = UA Nitrite) PM) [facility] AND [id number] 18:28:00 Test Item Value Reference Range Interpretation Comments UA Leuk Est (test Negative (12/21/17 1:28 code = UA Leuk Est) PM) [facility] AND [id number] 18:28:00 Test Item Value Reference Range Interpretation Comments UA Glucose (test code = UA Glucose) 500 mg/dL [facility] AND [id number] 18:28:00 Test Item Value Reference Range Interpretation Comments UA Sq Epi (test code = UA Sq Occasional /LPF Epi) [facility] AND [id number] 18:28:00 Test Item Value Reference Range Interpretation Comments UA WBC (test code = no gt See_Comment [Automa owen message] The UA WBC) system which ge nerated this result transmit owen reference range : <=5. The reference range was not used to interpr et this result as fredi l/abnormal. [facility] AND [id number] 18:28:00 Test Item Value Reference Range Interpretation Comments UA Color (test code = UA Color) Colorless [facility] AND [id number] 18:28:00 Test Item Value Reference Range Interpretation Comments UA Urobilinogen (test code = UA <=1.0 mg/dL 0.1-1.0 Urobilinogen) [facility] AND [id number] 18:28:00 Test Item Value Reference Range Interpretation Comments UA pH (test code = UA pH) 6.0 1 5.0-8.0 [facility] AND [id number] 18:28:00 Test Item Value Reference Range Interpretation Comments UA Protein (test code = UA Negative mg/dL Protein) [facility] AND [id number] 18:28:00 Test Item Value Reference Range Interpretation Comments UA Turbidity (test code = Clear (12/21/17 1:28 UA Turbidity) PM) [facility] AND [id number] 18:28:00 Test Item Value Reference Range Interpretation Comments UA Spec Grav (test code = UA Spec 1.027 1 Grav) [facility] [id number] 18:28:00 Test Item Value Reference Range Interpretation Comments U Preg (test code = U Negative (12/21/17 1:28 Preg) PM) [facility] AND [id number] 18:28:00 Test Item Value Reference Range Interpretation Comments UA RBC (test code = no gt See_Comment [Automa owen message] The UA RBC) system which ge nerated this result transmit owen reference range : <=2. The reference range was not used to interpr et this result as fredi l/abnormal. [facility] AND [id number] 18:28:00 Test Item Value Reference Range Interpretation Comments UA Ketones (test code = UA Trace mg/dL Ketones) [facility] AND [id number] 18:28:00 Test Item Value Reference Range Interpretation Comments UA Bili (test code = Negative *NA*(12/21/17 UA Bili) 1:28 PM) [facility] AND [id number] 18:28:00 Test Item Value Reference Range Interpretation Comments UA Blood (test code = Negative (12/21/17 1:28 UA Blood) PM) [facility] AND [id number] 18:28:00 Test Item Value Reference Range Interpretation Comments UA Nitrite (test code Negative (12/21/17 1:28 = UA Nitrite) PM) [facility] AND [id number] 18:28:00 Test Item Value Reference Range Interpretation Comments UA Leuk Est (test Negative (12/21/17 1:28 code = UA Leuk Est) PM) [facility] AND [id number] 18:28:00 Test Item Value Reference Range Interpretation Comments UA Glucose (test code = UA Glucose) 500 mg/dL [facility] AND [id number] 18:28:00 Test Item Value Reference Range Interpretation Comments UA Sq Epi (test code = UA Sq Occasional /LPF Epi) [facility] AND [id number] 18:28:00 Test Item Value Reference Range Interpretation Comments UA WBC (test code = no gt See_Comment [Automa owen message] The UA WBC) system which ge nerated this result transmit owen reference range : <=5. The reference range was not used to interpr et this result as fredi l/abnormal. [facility] AND [id number] 18:28:00 Test Item Value Reference Range Interpretation Comments UA Color (test code = UA Color) Colorless [facility] AND [id number] 18:28:00 Test Item Value Reference Range Interpretation Comments UA Urobilinogen (test code = UA <=1.0 mg/dL 0.1-1.0 Urobilinogen) [facility] AND [id number] 18:28:00 Test Item Value Reference Range Interpretation Comments UA pH (test code = UA pH) 6.0 1 5.0-8.0 [facility] AND [id number] 18:28:00 Test Item Value Reference Range Interpretation Comments UA Protein (test code = UA Negative mg/dL Protein) [facility] AND [id number] 18:28:00 Test Item Value Reference Range Interpretation Comments UA Turbidity (test code = Clear (12/21/17 1:28 UA Turbidity) PM) [facility] AND [id number] 18:28:00 Test Item Value Reference Range Interpretation Comments UA Spec Grav (test code = UA Spec 1.027 1 Grav) [facility] [id number] 18:28:00 Test Item Value Reference Range Interpretation Comments U Preg (test code = U Negative (12/21/17 1:28 Preg) PM) [facility] [id number] 18:16:00 Test Item Value Reference Range Interpretation Comments eGFR (test code = eGFR) 88 [facility]2018-08-06 18:16:00 Test Item Value Reference Range Interpretation Comments A/G Ratio (test code = A/G Ratio) 1.1 1 0.7-1.6 [place] [id number] 18:16:00 Test Item Value Reference Range Interpretation Comments ALT (test code = ALT) 24 See_Comment [Auto mated message] The system which ge nerated this result transmit owen reference range : <=65. The reference range was not used to interpr et this result as fredi l/abnormal. [facility]2018-08-06 18:16:00 Test Item Value Reference Range Interpretation Comments Globulin (test code = Globulin) 3.4 2.7-4.2 [facility]2018-08-06 18:16:00 Test Item Value Reference Range Interpretation Comments Bili Total (test code = Bili Total) 0.4 0.2-1.3 [place] [id number] 18:16:00 Test Item Value Reference Range Interpretation Comments Alk Phos (test code = Alk Phos) 84 39-136 [facility]2018-08-06 18:16:00 Test Item Value Reference Range Interpretation Comments AST (test code = AST) 45 See_Comment [Auto mated message] The system which ge nerated this result transmit owen reference range : <=37. The reference range was not used to interpr et this result as fredi l/abnormal. [facility]2018-08-06 18:16:00 Test Item Value Reference Range Interpretation Comments Total Protein (test code = Total 7.0 6.4-8.4 Protein) [facility]2018-08-06 18:16:00 Test Item Value Reference Range Interpretation Comments Potassium Lvl (test code = Potassium 5.1 3.5-5.1 Lvl) [place] [id number] 18:16:00 Test Item Value Reference Range Interpretation Comments B/C Ratio (test code = B/C Ratio) 16 1 6-25 [place] [id number] 18:16:00 Test Item Value Reference Range Interpretation Comments Calcium Lvl (test code = Calcium Lvl) 8.7 8.5-10.5 [facility]2018-08-06 18:16:00 Test Item Value Reference Range Interpretation Comments Albumin Lvl (test code = Albumin Lvl) 3.6 3.5-5.0 [facility]2018-08-06 18:16:00 Test Item Value Reference Range Interpretation Comments CO2 (test code = CO2) 17 24-32 [facility]2018-08-06 18:16:00 Test Item Value Reference Range Interpretation Comments Chloride Lvl (test code = Chloride Lvl) 102 95-109 [facility]2018-08-06 18:16:00 Test Item Value Reference Range Interpretation Comments AGAP (test code = AGAP) 22.1 10.0-20.0 [facility]2018-08-06 18:16:00 Test Item Value Reference Range Interpretation Comments Creatinine Lvl (test code = Creatinine 0.90 0.50-1.40 Lvl) [facility]2018-08-06 18:16:00 Test Item Value Reference Range Interpretation Comments BUN (test code = BUN) 14 7-22 [facility]2018-08-06 18:16:00 Test Item Value Reference Range Interpretation Comments Glucose Lvl (test code = Glucose Lvl) 477 70-99 [facility]2018-08-06 18:16:00 Test Item Value Reference Range Interpretation Comments Sodium Lvl (test code = Sodium Lvl) 136 135-145 [id number] 18:16:00 Test Item Value Reference Range Interpretation Comments MCH (test code = MCH) 34.4 pg 27.0-31.0 [facility] [id number] 18:16:00 Test Item Value Reference Range Interpretation Comments MPV (test code = MPV) 9.6 7.4-10.4 [facility] H[id number] 18:16:00 Test Item Value Reference Range Interpretation Comments Platelet (test code = Platelet) 262 133-450 [facility] Ho[id number] 18:16:00 Test Item Value Reference Range Interpretation Comments RDW (test code = RDW) 13.1 11.5-14.5 [facility] Hos[id number] 18:16:00 Test Item Value Reference Range Interpretation Comments MCHC (test code = MCHC) 34.5 32.0-36.0 [facility] HospitalM[id number] 18:16:00 Test Item Value Reference Range Interpretation Comments MCV (test code = MCV) 99.9 80.0-98.0 [facility] Hos[id number] 18:16:00 Test Item Value Reference Range Interpretation Comments Hgb (test code = Hgb) 13.0 12.0-16.0 [facility] Hospit[id number] 18:16:00 Test Item Value Reference Range Interpretation Comments Hct (test code = Hct) 37.6 36.0-48.0 [facility] H[id number] 18:16:00 Test Item Value Reference Range Interpretation Comments WBC (test code = WBC) 8.5 3.7-10.4 [facility] [id number] 18:16:00 Test Item Value Reference Range Interpretation Comments RBC (test code = RBC) 3.77 4.20-5.40 [facility] HospitalQhlpvgmZEVKBTARJS8067-97-05 18:16:00 Test Item Value Reference Range Interpretation Comments Basophils (test code = 0.5 See_Comment [Aut omated message] The Basophils) system which ge nerated this result tra nsmitted reference range : <=1.0. The reference r jase was not used to int erpret this result as normal/abnormal . [facility] Hospit[id number] 18:16:00 Test Item Value Reference Range Interpretation Comments Neutrophils # (test code = Neutrophils 6.2 1.5-8.1 #) [facility] HospitalLcpgcvgZMDGKPXEWC2230-42-46 18:16:00 Test Item Value Reference Range Interpretation Comments Monocytes (test code = Monocytes) 6.2 2.0-12.0 [facility] HospitalFyvcoxhFWFVHWENXZ6044-17-06 18:16:00 Test Item Value Reference Range Interpretation Comments Eosinophils (test code = 4.2 See_Comment [A utomated message] The Eosinophils) system which ge nerated this result tra nsmitted reference range : <=4.0. The reference r jase was not used to int erpret this result as normal/abnormal . [facility] HospitalZqdcrkmIOTZTLAATX1021-54-08 18:16:00 Test Item Value Reference Range Interpretation Comments Segs (test code = Segs) 73.0 45.0-75.0 [facility] HospitalWslutahMIJRGPOWRI7217-73-26 18:16:00 Test Item Value Reference Range Interpretation Comments Lymphocytes (test code = Lymphocytes) 16.1 20.0-40.0 [facility] HospitalYrolwimJAJOGCWVON9278-08-52 18:16:00 Test Item Value Reference Range Interpretation Comments Eosinophils # (test code 0.4 See_Comment [A utomated message] The = Eosinophils #) system whic h generated this result tra nsmitted reference range : <=0.5. The reference r jase was not used to int erpret this result as normal/abnormal . [facility] HospitalQqffnzzFZPLADHHWG8302-26-17 18:16:00 Test Item Value Reference Range Interpretation Comments Macrocyte (test code = 1+ *ABN*(12/21/17 1:16 Macrocyte) PM) [facility] HospitalQkvccwvFMNFAUXLTO7169-83-04 18:16:00 Test Item Value Reference Range Interpretation Comments Lymphocytes # (test code = Lymphocytes 1.4 1.0-5.5 #) [facility] HospitalBvostzqFMUTRVWXTD2276-09-66 18:16:00 Test Item Value Reference Range Interpretation Comments Monocytes # (test code 0.5 See_Comment [Aut omated message] The = Monocytes #) system which generated this result tra nsmitted reference range : <=0.8. The reference r jase was not used to int erpret this result as normal/abnormal . [facility]2018-08-06 18:16:00 Test Item Value Reference Range Interpretation Comments eGFR (test code = eGFR) 88 [facility]2018-08-06 18:16:00 Test Item Value Reference Range Interpretation Comments A/G Ratio (test code = A/G Ratio) 1.1 1 0.7-1.6 [facility]2018-08-06 18:16:00 Test Item Value Reference Range Interpretation Comments ALT (test code = ALT) 24 See_Comment [Auto mated message] The system which ge nerated this result transmit owen reference range : <=65. The reference range was not used to interpr et this result as fredi l/abnormal. [facility]2018-08-06 18:16:00 Test Item Value Reference Range Interpretation Comments Globulin (test code = Globulin) 3.4 2.7-4.2 [facility]2018-08-06 18:16:00 Test Item Value Reference Range Interpretation Comments Bili Total (test code = Bili Total) 0.4 0.2-1.3 [facility]2018-08-06 18:16:00 Test Item Value Reference Range Interpretation Comments Alk Phos (test code = Alk Phos) 84 39-136 [facility]2018-08-06 18:16:00 Test Item Value Reference Range Interpretation Comments AST (test code = AST) 45 See_Comment [Auto mated message] The system which ge nerated this result transmit owen reference range : <=37. The reference range was not used to interpr et this result as fredi l/abnormal. [facility]2018-08-06 18:16:00 Test Item Value Reference Range Interpretation Comments Total Protein (test code = Total 7.0 6.4-8.4 Protein) [facility]2018-08-06 18:16:00 Test Item Value Reference Range Interpretation Comments Potassium Lvl (test code = Potassium 5.1 3.5-5.1 Lvl) [facility]2018-08-06 18:16:00 Test Item Value Reference Range Interpretation Comments B/C Ratio (test code = B/C Ratio) 16 1 6-25 [facility]2018-08-06 18:16:00 Test Item Value Reference Range Interpretation Comments Calcium Lvl (test code = Calcium Lvl) 8.7 8.5-10.5 [facility]2018-08-06 18:16:00 Test Item Value Reference Range Interpretation Comments Albumin Lvl (test code = Albumin Lvl) 3.6 3.5-5.0 [facility]2018-08-06 18:16:00 Test Item Value Reference Range Interpretation Comments CO2 (test code = CO2) 17 24-32 [facility]2018-08-06 18:16:00 Test Item Value Reference Range Interpretation Comments Chloride Lvl (test code = Chloride Lvl) 102 95-109 [facility]2018-08-06 18:16:00 Test Item Value Reference Range Interpretation Comments AGAP (test code = AGAP) 22.1 10.0-20.0 [facility]2018-08-06 18:16:00 Test Item Value Reference Range Interpretation Comments Creatinine Lvl (test code = Creatinine 0.90 0.50-1.40 Lvl) [facility]2018-08-06 18:16:00 Test Item Value Reference Range Interpretation Comments BUN (test code = BUN) 14 7-22 [facility]2018-08-06 18:16:00 Test Item Value Reference Range Interpretation Comments Glucose Lvl (test code = Glucose Lvl) 477 70-99 [facility]2018-08-06 18:16:00 Test Item Value Reference Range Interpretation Comments Sodium Lvl (test code = Sodium Lvl) 136 135-145 [facility] HospitalZphidsqHMEHTRBZEW2500-56-16 18:16:00 Test Item Value Reference Range Interpretation Comments MCH (test code = MCH) 34.4 pg 27.0-31.0 [facility] HospitalMngtcnhJABCHZSKMD4891-04-66 18:16:00 Test Item Value Reference Range Interpretation Comments MPV (test code = MPV) 9.6 7.4-10.4 [facility] HospitalNnasyauENYPBJFAXM5109-28-97 18:16:00 Test Item Value Reference Range Interpretation Comments Platelet (test code = Platelet) 262 133-450 [facility] HospitalNkzlobvRNOSZOLRCO7945-91-17 18:16:00 Test Item Value Reference Range Interpretation Comments RDW (test code = RDW) 13.1 11.5-14.5 [facility] HospitalOdwyiopAIXZWHKRAJ9021-92-76 18:16:00 Test Item Value Reference Range Interpretation Comments MCHC (test code = MCHC) 34.5 32.0-36.0 [facility] HospitalYaosghiJLBXTBVSXZ0181-79-41 18:16:00 Test Item Value Reference Range Interpretation Comments MCV (test code = MCV) 99.9 80.0-98.0 [facility] HospitalRndxdpqRVSDWMSXKG8472-11-10 18:16:00 Test Item Value Reference Range Interpretation Comments Hgb (test code = Hgb) 13.0 12.0-16.0 [facility] HospitalAjrqyrmLGFGISYDFK0925-13-12 18:16:00 Test Item Value Reference Range Interpretation Comments Hct (test code = Hct) 37.6 36.0-48.0 [facility] HospitalMsqenggRCOHWMZWWZ4125-28-78 18:16:00 Test Item Value Reference Range Interpretation Comments WBC (test code = WBC) 8.5 3.7-10.4 [facility] HospitalEcwmxotSDBIUAPPHF3295-71-54 18:16:00 Test Item Value Reference Range Interpretation Comments RBC (test code = RBC) 3.77 4.20-5.40 [facility] HospitalXwixousPCOGIXULNG3773-31-25 18:16:00 Test Item Value Reference Range Interpretation Comments Basophils (test code = 0.5 See_Comment [Aut omated message] The Basophils) system which ge nerated this result tra nsmitted reference range : <=1.0. The reference r jase was not used to int erpret this result as normal/abnormal . [facility] HospitalRftarpbDAJHEEVANN4647-04-27 18:16:00 Test Item Value Reference Range Interpretation Comments Neutrophils # (test code = Neutrophils 6.2 1.5-8.1 #) [facility] HospitalYbbvuqpULYDUYTIFN3740-75-52 18:16:00 Test Item Value Reference Range Interpretation Comments Monocytes (test code = Monocytes) 6.2 2.0-12.0 [facility] HospitalQifmhlyUQITVTKKTY2183-33-51 18:16:00 Test Item Value Reference Range Interpretation Comments Eosinophils (test code = 4.2 See_Comment [A utomated message] The Eosinophils) system which ge nerated this result tra nsmitted reference range : <=4.0. The reference r jase was not used to int erpret this result as normal/abnormal . [facility] HospitalYovczpiHFACNVHCVN1599-71-62 18:16:00 Test Item Value Reference Range Interpretation Comments Segs (test code = Segs) 73.0 45.0-75.0 [facility] [id number] 18:16:00 Test Item Value Reference Range Interpretation Comments Lymphocytes (test code = Lymphocytes) 16.1 20.0-40.0 [facility] HospitalRuxflxfCDENOPIIXE7822-91-17 18:16:00 Test Item Value Reference Range Interpretation Comments Eosinophils # (test code 0.4 See_Comment [A utomated message] The = Eosinophils #) system whic h generated this result tra nsmitted reference range : <=0.5. The reference r jase was not used to int erpret this result as normal/abnormal . [facility] Hos[id number] 18:16:00 Test Item Value Reference Range Interpretation Comments Macrocyte (test code = 1+ *ABN*(12/21/17 1:16 Macrocyte) PM) [facility] Hospit[id number] 18:16:00 Test Item Value Reference Range Interpretation Comments Lymphocytes # (test code = Lymphocytes 1.4 1.0-5.5 #) [facility] HospitalTflbqadOSMXLDKTHM4796-31-79 18:16:00 Test Item Value Reference Range Interpretation Comments Monocytes # (test code 0.5 See_Comment [Aut omated message] The = Monocytes #) system which generated this result tra nsmitted reference range : <=0.8. The reference r jase was not used to int erpret this result as normal/abnormal . [facility]2018-08-06 18:16:00 Test Item Value Reference Range Interpretation Comments eGFR (test code = eGFR) 88 [facility]2018-08-06 18:16:00 Test Item Value Reference Range Interpretation Comments A/G Ratio (test code = A/G Ratio) 1.1 1 0.7-1.6 [facility]2018-08-06 18:16:00 Test Item Value Reference Range Interpretation Comments ALT (test code = ALT) 24 See_Comment [Auto mated message] The system which ge nerated this result transmit owen reference range : <=65. The reference range was not used to interpr et this result as fredi l/abnormal. [facility]2018-08-06 18:16:00 Test Item Value Reference Range Interpretation Comments Globulin (test code = Globulin) 3.4 2.7-4.2 [facility]2018-08-06 18:16:00 Test Item Value Reference Range Interpretation Comments Bili Total (test code = Bili Total) 0.4 0.2-1.3 [facility]2018-08-06 18:16:00 Test Item Value Reference Range Interpretation Comments Alk Phos (test code = Alk Phos) 84 39-136 [facility]2018-08-06 18:16:00 Test Item Value Reference Range Interpretation Comments AST (test code = AST) 45 See_Comment [Auto mated message] The system which ge nerated this result transmit owen reference range : <=37. The reference range was not used to interpr et this result as fredi l/abnormal. [facility]2018-08-06 18:16:00 Test Item Value Reference Range Interpretation Comments Total Protein (test code = Total 7.0 6.4-8.4 Protein) [facility]2018-08-06 18:16:00 Test Item Value Reference Range Interpretation Comments Potassium Lvl (test code = Potassium 5.1 3.5-5.1 Lvl) [facility]2018-08-06 18:16:00 Test Item Value Reference Range Interpretation Comments B/C Ratio (test code = B/C Ratio) 16 1 6-25 [place] 413508-08-06 18:16:00 Test Item Value Reference Range Interpretation Comments Calcium Lvl (test code = Calcium Lvl) 8.7 8.5-10.5 [place] 413508-08-06 18:16:00 Test Item Value Reference Range Interpretation Comments Albumin Lvl (test code = Albumin Lvl) 3.6 3.5-5.0 [facility]2018-08-06 18:16:00 Test Item Value Reference Range Interpretation Comments CO2 (test code = CO2) 17 24-32 [facility]2018-08-06 18:16:00 Test Item Value Reference Range Interpretation Comments Chloride Lvl (test code = Chloride Lvl) 102 95-109 [facility]2018-08-06 18:16:00 Test Item Value Reference Range Interpretation Comments AGAP (test code = AGAP) 22.1 10.0-20.0 [facility]2018-08-06 18:16:00 Test Item Value Reference Range Interpretation Comments Creatinine Lvl (test code = Creatinine 0.90 0.50-1.40 Lvl) [facility]2018-08-06 18:16:00 Test Item Value Reference Range Interpretation Comments BUN (test code = BUN) 14 7-22 [facility]2018-08-06 18:16:00 Test Item Value Reference Range Interpretation Comments Glucose Lvl (test code = Glucose Lvl) 477 70-99 [facility]2018-08-06 18:16:00 Test Item Value Reference Range Interpretation Comments Sodium Lvl (test code = Sodium Lvl) 136 135-145 [facility] HospitalOsjlylmCIXDUTGZGI7170-36-71 18:16:00 Test Item Value Reference Range Interpretation Comments MCH (test code = MCH) 34.4 pg 27.0-31.0 [facility] HospitalMhulfwhMOOUCJFAEH4871-76-31 18:16:00 Test Item Value Reference Range Interpretation Comments MPV (test code = MPV) 9.6 7.4-10.4 [facility] HospitalVwofkhiXRPXYTNMUP4306-69-72 18:16:00 Test Item Value Reference Range Interpretation Comments Platelet (test code = Platelet) 262 133-450 [facility] HospitalZkawxlxNMCDAODPJM5150-82-15 18:16:00 Test Item Value Reference Range Interpretation Comments RDW (test code = RDW) 13.1 11.5-14.5 [facility] HospitalKyyvovqBIERZGMMZP3824-50-16 18:16:00 Test Item Value Reference Range Interpretation Comments MCHC (test code = MCHC) 34.5 32.0-36.0 [facility] HospitalThuqwuwICNQYQHVKM9063-10-70 18:16:00 Test Item Value Reference Range Interpretation Comments MCV (test code = MCV) 99.9 80.0-98.0 [facility] HospitalEztuxafLQMVRACXCQ1458-31-55 18:16:00 Test Item Value Reference Range Interpretation Comments Hgb (test code = Hgb) 13.0 12.0-16.0 [facility] HospitalKawglslSJHADGJYOQ3384-56-52 18:16:00 Test Item Value Reference Range Interpretation Comments Hct (test code = Hct) 37.6 36.0-48.0 [facility] HospitalChfksejNIANPGGRYS7291-09-68 18:16:00 Test Item Value Reference Range Interpretation Comments WBC (test code = WBC) 8.5 3.7-10.4 [facility] HospitalGvxxyhjNLQYGSWRLE5716-61-58 18:16:00 Test Item Value Reference Range Interpretation Comments RBC (test code = RBC) 3.77 4.20-5.40 [facility] Hospit[id number] 18:16:00 Test Item Value Reference Range Interpretation Comments Basophils (test code = 0.5 See_Comment [Aut omated message] The Basophils) system which ge nerated this result tra nsmitted reference range : <=1.0. The reference r jase was not used to int erpret this result as normal/abnormal . [facility] HospitalMpuqyrmTBJQLTJZUK9611-58-39 18:16:00 Test Item Value Reference Range Interpretation Comments Neutrophils # (test code = Neutrophils 6.2 1.5-8.1 #) [facility] HospitalMuuggsyPVACHBFBIP4824-21-43 18:16:00 Test Item Value Reference Range Interpretation Comments Monocytes (test code = Monocytes) 6.2 2.0-12.0 [facility] HospitalAeqqbitKRPNNRVVDV2656-08-68 18:16:00 Test Item Value Reference Range Interpretation Comments Eosinophils (test code = 4.2 See_Comment [A utomated message] The Eosinophils) system which ge nerated this result tra nsmitted reference range : <=4.0. The reference r jase was not used to int erpret this result as normal/abnormal . [facility] HospitalItmomcnEWRFJYNFJK2960-50-45 18:16:00 Test Item Value Reference Range Interpretation Comments Segs (test code = Segs) 73.0 45.0-75.0 [facility] HospitalFjwqsscMZKKNKVORU5328-08-66 18:16:00 Test Item Value Reference Range Interpretation Comments Lymphocytes (test code = Lymphocytes) 16.1 20.0-40.0 [facility] HospitalPwcmznmEWFLKJJTWW0472-68-32 18:16:00 Test Item Value Reference Range Interpretation Comments Eosinophils # (test code 0.4 See_Comment [A utomated message] The = Eosinophils #) system whic h generated this result tra nsmitted reference range : <=0.5. The reference r jase was not used to int erpret this result as normal/abnormal . [facility] HospitalJauasawIVQOOBLCXE6179-40-22 18:16:00 Test Item Value Reference Range Interpretation Comments Macrocyte (test code = 1+ *ABN*(12/21/17 1:16 Macrocyte) PM) [facility] HospitalAgmmblgOLWCQWURZL5030-90-43 18:16:00 Test Item Value Reference Range Interpretation Comments Lymphocytes # (test code = Lymphocytes 1.4 1.0-5.5 #) [facility] HospitalQyedbneHDARYLVCSK7364-69-29 18:16:00 Test Item Value Reference Range Interpretation Comments Monocytes # (test code 0.5 See_Comment [Aut omated message] The = Monocytes #) system which generated this result tra nsmitted reference range : <=0.8. The reference r jase was not used to int erpret this result as normal/abnormal . [facility] AND [id number] 05:27:00 Test Item Value Reference Range Interpretation Comments UA Mucus (test code = UA Mucus) Many /LPF [facility] AND [id number] 05:27:00 Test Item Value Reference Range Interpretation Comments UA Bacteria (test code = UA Occasional /HPF Bacteria) [facility] AND [id number] 05:27:00 Test Item Value Reference Range Interpretation Comments UA Leuk Est (test Negative (11/12/17 12:27 code = UA Leuk Est) AM) [facility] AND [id number] 05:27:00 Test Item Value Reference Range Interpretation Comments UA Nitrite (test code Negative (11/12/17 12:27 = UA Nitrite) AM) [facility] AND [id number] 05:27:00 Test Item Value Reference Range Interpretation Comments UA Urobilinogen (test code = UA 2.0 0.1-1.0 Urobilinogen) [facility] AND [id number] 05:27:00 Test Item Value Reference Range Interpretation Comments UA RBC (test code = 1 See_Comment [Automa owen message] The UA RBC) system which ge nerated this result transmit owen reference range : <=2. The reference range was not used to interpr et this result as fredi l/abnormal. [facility] AND [id number] 05:27:00 Test Item Value Reference Range Interpretation Comments UA WBC (test code = 3 See_Comment [Automa owen message] The UA WBC) system which ge nerated this result transmit owen reference range : <=5. The reference range was not used to interpr et this result as fredi l/abnormal. [facility] AND [id number] 05:27:00 Test Item Value Reference Range Interpretation Comments UA Sq Epi (test code = UA Sq Epi) Few /LPF [facility] AND [id number] 05:27:00 Test Item Value Reference Range Interpretation Comments UA Bili (test code = Negative *NA*(11/12/17 UA Bili) 12:27 AM) [facility] AND [id number] 05:27:00 Test Item Value Reference Range Interpretation Comments UA Blood (test code = Negative (11/12/17 12:27 UA Blood) AM) [facility] AND [id number] 05:27:00 Test Item Value Reference Range Interpretation Comments UA Protein (test code = UA Protein) 30 mg/dL [facility] AND [id number] 05:27:00 Test Item Value Reference Range Interpretation Comments UA pH (test code = UA pH) 6.0 1 5.0-8.0 [facility] AND [id number] 05:27:00 Test Item Value Reference Range Interpretation Comments UA Spec Grav (test code = UA Spec 1.026 1 Grav) [facility] AND [id number] 05:27:00 Test Item Value Reference Range Interpretation Comments UA Ketones (test code = UA Ketones) 80 mg/dL [facility] AND [id number] 05:27:00 Test Item Value Reference Range Interpretation Comments UA Glucose (test code = UA Negative mg/dL Glucose) [facility] AND [id number] 05:27:00 Test Item Value Reference Range Interpretation Comments UA Turbidity (test code Slight *ABN*(11/12/17 = UA Turbidity) 12:27 AM) [facility] AND [id number] 05:27:00 Test Item Value Reference Range Interpretation Comments UA Color (test code = Richie *ABN*(11/12/17 UA Color) 12:27 AM) [facility] AND [id number] 05:27:00 Test Item Value Reference Range Interpretation Comments UA Mucus (test code = UA Mucus) Many /LPF [facility] AND [id number] 05:27:00 Test Item Value Reference Range Interpretation Comments UA Bacteria (test code = UA Occasional /HPF Bacteria) [facility] AND [id number] 05:27:00 Test Item Value Reference Range Interpretation Comments UA Leuk Est (test Negative (11/12/17 12:27 code = UA Leuk Est) AM) [facility] AND [id number] 05:27:00 Test Item Value Reference Range Interpretation Comments UA Nitrite (test code Negative (11/12/17 12:27 = UA Nitrite) AM) [facility] AND [id number] 05:27:00 Test Item Value Reference Range Interpretation Comments UA Urobilinogen (test code = UA 2.0 0.1-1.0 Urobilinogen) [facility] AND [id number] 05:27:00 Test Item Value Reference Range Interpretation Comments UA RBC (test code = 1 See_Comment [Automa owen message] The UA RBC) system which ge nerated this result transmit owen reference range : <=2. The reference range was not used to interpr et this result as fredi l/abnormal. [facility] AND [id number] 05:27:00 Test Item Value Reference Range Interpretation Comments UA WBC (test code = 3 See_Comment [Automa owen message] The UA WBC) system which ge nerated this result transmit owen reference range : <=5. The reference range was not used to interpr et this result as fredi l/abnormal. [facility] AND [id number] 05:27:00 Test Item Value Reference Range Interpretation Comments UA Sq Epi (test code = UA Sq Epi) Few /LPF [facility] AND [id number] 05:27:00 Test Item Value Reference Range Interpretation Comments UA Bili (test code = Negative *NA*(11/12/17 UA Bili) 12:27 AM) [facility] AND [id number] 05:27:00 Test Item Value Reference Range Interpretation Comments UA Blood (test code = Negative (11/12/17 12:27 UA Blood) AM) [facility] AND [id number] 05:27:00 Test Item Value Reference Range Interpretation Comments UA Protein (test code = UA Protein) 30 mg/dL [facility] AND [id number] 05:27:00 Test Item Value Reference Range Interpretation Comments UA pH (test code = UA pH) 6.0 1 5.0-8.0 [facility] AND [id number] 05:27:00 Test Item Value Reference Range Interpretation Comments UA Spec Grav (test code = UA Spec 1.026 1 Grav) [facility] AND [id number] 05:27:00 Test Item Value Reference Range Interpretation Comments UA Ketones (test code = UA Ketones) 80 mg/dL [facility] AND [id number] 05:27:00 Test Item Value Reference Range Interpretation Comments UA Glucose (test code = UA Negative mg/dL Glucose) [facility] AND [id number] 05:27:00 Test Item Value Reference Range Interpretation Comments UA Turbidity (test code Slight *ABN*(11/12/17 = UA Turbidity) 12:27 AM) [facility] AND [id number] 05:27:00 Test Item Value Reference Range Interpretation Comments UA Color (test code = Richie *ABN*(11/12/17 UA Color) 12:27 AM) [facility] AND [id number] 05:27:00 Test Item Value Reference Range Interpretation Comments UA Mucus (test code = UA Mucus) Many /LPF [facility] AND [id number] 05:27:00 Test Item Value Reference Range Interpretation Comments UA Bacteria (test code = UA Occasional /HPF Bacteria) [facility] AND [id number] 05:27:00 Test Item Value Reference Range Interpretation Comments UA Leuk Est (test Negative (11/12/17 12:27 code = UA Leuk Est) AM) [facility] AND [id number] 05:27:00 Test Item Value Reference Range Interpretation Comments UA Nitrite (test code Negative (11/12/17 12:27 = UA Nitrite) AM) [facility] AND [id number] 05:27:00 Test Item Value Reference Range Interpretation Comments UA Urobilinogen (test code = UA 2.0 0.1-1.0 Urobilinogen) [facility] AND [id number] 05:27:00 Test Item Value Reference Range Interpretation Comments UA RBC (test code = 1 See_Comment [Automa owen message] The UA RBC) system which ge nerated this result transmit owen reference range : <=2. The reference range was not used to interpr et this result as fredi l/abnormal. [facility] AND [id number] 05:27:00 Test Item Value Reference Range Interpretation Comments UA WBC (test code = 3 See_Comment [Automa owen message] The UA WBC) system which ge nerated this result transmit owen reference range : <=5. The reference range was not used to interpr et this result as fredi l/abnormal. [facility] AND [id number] 05:27:00 Test Item Value Reference Range Interpretation Comments UA Sq Epi (test code = UA Sq Epi) Few /LPF [facility] AND [id number] 05:27:00 Test Item Value Reference Range Interpretation Comments UA Bili (test code = Negative *NA*(11/12/17 UA Bili) 12:27 AM) [facility] AND [id number] 05:27:00 Test Item Value Reference Range Interpretation Comments UA Blood (test code = Negative (11/12/17 12:27 UA Blood) AM) [facility] AND [id number] 05:27:00 Test Item Value Reference Range Interpretation Comments UA Protein (test code = UA Protein) 30 mg/dL [facility] AND [id number] 05:27:00 Test Item Value Reference Range Interpretation Comments UA pH (test code = UA pH) 6.0 1 5.0-8.0 [facility] AND [id number] 05:27:00 Test Item Value Reference Range Interpretation Comments UA Spec Grav (test code = UA Spec 1.026 1 Grav) [facility] AND [id number] 05:27:00 Test Item Value Reference Range Interpretation Comments UA Ketones (test code = UA Ketones) 80 mg/dL [facility] AND [id number] 05:27:00 Test Item Value Reference Range Interpretation Comments UA Glucose (test code = UA Negative mg/dL Glucose) [facility] AND [id number] 05:27:00 Test Item Value Reference Range Interpretation Comments UA Turbidity (test code Slight *ABN*(11/12/17 = UA Turbidity) 12:27 AM) [facility] AND [id number] 05:27:00 Test Item Value Reference Range Interpretation Comments UA Color (test code = Richie *ABN*(11/12/17 UA Color) 12:27 AM) [facility] H[id number] 02:14:00 Test Item Value Reference Range Interpretation Comments PTT (test code = PTT) 27.2 s 22.9-35.8 [facility] Hos[id number] 02:14:00 Test Item Value Reference Range Interpretation Comments PT (test code = PT) 14.9 s 12.0-14.7 [facility] HospitalGrnarqyVIHLOHEHTN3565-10-07 02:14:00 Test Item Value Reference Range Interpretation Comments INR (test code = INR) 1.16 1 0.85-1.17 [facility] [id number] 02:14:00 Test Item Value Reference Range Interpretation Comments D-Dimer (test code = D-Dimer) no gt [facility] [id number] 02:14:00 Test Item Value Reference Range Interpretation Comments PTT (test code = PTT) 27.2 s 22.9-35.8 [facility] HospitalSkvclfmOASRFKSCJZ7563-29-29 02:14:00 Test Item Value Reference Range Interpretation Comments PT (test code = PT) 14.9 s 12.0-14.7 [facility] H[id number] 02:14:00 Test Item Value Reference Range Interpretation Comments INR (test code = INR) 1.16 1 0.85-1.17 [facility] HospitalKgqefcsFGKJDONRAY8540-04-17 02:14:00 Test Item Value Reference Range Interpretation Comments D-Dimer (test code = D-Dimer) no gt [facility] H[id number] 02:14:00 Test Item Value Reference Range Interpretation Comments PTT (test code = PTT) 27.2 s 22.9-35.8 [facility] H[id number] 02:14:00 Test Item Value Reference Range Interpretation Comments PT (test code = PT) 14.9 s 12.0-14.7 [facility] H[id number] 02:14:00 Test Item Value Reference Range Interpretation Comments INR (test code = INR) 1.16 1 0.85-1.17 [facility] H[id number] 02:14:00 Test Item Value Reference Range Interpretation Comments D-Dimer (test code = D-Dimer) no gt [facility]2018-06-28 00:19:00 Test Item Value Reference Range Interpretation Comments Ketone Quantitative (test code = Ketone 1.84 Quantitative) [facility]2018-06-28 00:19:00 Test Item Value Reference Range Interpretation Comments A/G Ratio (test code = A/G Ratio) 1.3 1 0.7-1.6 [facility]2018-06-28 00:19:00 Test Item Value Reference Range Interpretation Comments AGAP (test code = AGAP) 16.6 10.0-20.0 [facility]2018-06-28 00:19:00 Test Item Value Reference Range Interpretation Comments B/C Ratio (test code = B/C Ratio) 13 1 6-25 [facility]2018-06-28 00:19:00 Test Item Value Reference Range Interpretation Comments Globulin (test code = Globulin) 3.8 2.7-4.2 [place] [id number] 00:19:00 Test Item Value Reference Range Interpretation Comments eGFR (test code = eGFR) 89 [facility]2018-06-28 00:19:00 Test Item Value Reference Range Interpretation Comments AST (test code = AST) 11 See_Comment [Auto mated message] The system which ge nerated this result transmit owen reference range : <=37. The reference range was not used to interpr et this result as fredi l/abnormal. [facility]2018-06-28 00:19:00 Test Item Value Reference Range Interpretation Comments Alk Phos (test code = Alk Phos) 90 39-136 [facility]2018-06-28 00:19:00 Test Item Value Reference Range Interpretation Comments Bili Total (test code = Bili Total) 1.2 0.2-1.3 [facility]2018-06-28 00:19:00 Test Item Value Reference Range Interpretation Comments Albumin Lvl (test code = Albumin Lvl) 4.8 3.5-5.0 [facility]2018-06-28 00:19:00 Test Item Value Reference Range Interpretation Comments Calcium Lvl (test code = Calcium Lvl) 10.0 8.5-10.5 [facility]2018-06-28 00:19:00 Test Item Value Reference Range Interpretation Comments Total Protein (test code = Total 8.6 6.4-8.4 Protein) [facility]2018-06-28 00:19:00 Test Item Value Reference Range Interpretation Comments ALT (test code = ALT) 22 See_Comment [Auto mated message] The system which ge nerated this result transmit owen reference range : <=65. The reference range was not used to interpr et this result as fredi l/abnormal. [facility]2018-06-28 00:19:00 Test Item Value Reference Range Interpretation Comments Potassium Lvl (test code = Potassium 3.6 3.5-5.1 Lvl) [facility]2018-06-28 00:19:00 Test Item Value Reference Range Interpretation Comments Chloride Lvl (test code = Chloride Lvl) 105 95-109 [facility]2018-06-28 00:19:00 Test Item Value Reference Range Interpretation Comments CO2 (test code = CO2) 19 24-32 [facility]2018-06-28 00:19:00 Test Item Value Reference Range Interpretation Comments Sodium Lvl (test code = Sodium Lvl) 137 135-145 [facility]2018-06-28 00:19:00 Test Item Value Reference Range Interpretation Comments Creatinine Lvl (test code = Creatinine 0.89 0.50-1.40 Lvl) [facility] [facility]2018-06-28 00:19:00 Test Item Value Reference Range Interpretation Comments BUN (test code = BUN) 12 7-22 [facility]2018-06-28 00:19:00 Test Item Value Reference Range Interpretation Comments Glucose Lvl (test code = Glucose Lvl) 138 70-99 [facility] CenterZkszxkbPHJVENBCTTGUL1316-67-32 00:19:00 Test Item Value Reference Range Interpretation Comments S Preg (test code = S Negative *NA*(11/11/17 Preg) 7:19 PM) [facility] HospitalKtvjvgsEDMILTKWXN9433-50-18 00:19:00 Test Item Value Reference Range Interpretation Comments MPV (test code = MPV) 8.8 7.4-10.4 [facility] HospitalFtvtfzvZZXEGFIOON9091-27-96 00:19:00 Test Item Value Reference Range Interpretation Comments MCHC (test code = MCHC) 35.2 32.0-36.0 [facility] HospitalTssxujxPZYBZDNNAL5392-33-18 00:19:00 Test Item Value Reference Range Interpretation Comments RDW (test code = RDW) 12.3 11.5-14.5 [facility] HospitalAgucmunJYFKGRTQUR0280-74-56 00:19:00 Test Item Value Reference Range Interpretation Comments MCH (test code = MCH) 33.9 pg 27.0-31.0 [facility] HospitalAxpasjyFOWMUQSPFG5761-49-88 00:19:00 Test Item Value Reference Range Interpretation Comments Platelet (test code = Platelet) 338 133-450 [facility] HospitalPvpcnczRRUZPHUEYI6690-21-32 00:19:00 Test Item Value Reference Range Interpretation Comments MCV (test code = MCV) 96.4 80.0-98.0 [facility] HospitalDymayupUJUALMRPJT6737-90-54 00:19:00 Test Item Value Reference Range Interpretation Comments Hgb (test code = Hgb) 15.2 12.0-16.0 [facility] HospitalSrmyoucMGKMLWKUCF2967-00-09 00:19:00 Test Item Value Reference Range Interpretation Comments Hct (test code = Hct) 43.1 36.0-48.0 [facility] HospitalLbphpifDLHCCNYOTX0503-70-02 00:19:00 Test Item Value Reference Range Interpretation Comments RBC (test code = RBC) 4.48 4.20-5.40 [facility] HospitalQndcigjSWOZNYOJXR4148-93-90 00:19:00 Test Item Value Reference Range Interpretation Comments WBC (test code = WBC) 8.0 3.7-10.4 [facility] HospitalMfloffqRGKXNQAQAN5882-85-53 00:19:00 Test Item Value Reference Range Interpretation Comments Eosinophils # (test code 0.4 See_Comment [A utomated message] The = Eosinophils #) system whic h generated this result tra nsmitted reference range : <=0.5. The reference r jase was not used to int erpret this result as normal/abnormal . [facility] HospitalGrajspmLXJVJMAEFV6305-51-00 00:19:00 Test Item Value Reference Range Interpretation Comments Basophils # (test code 0.1 See_Comment [Aut omated message] The = Basophils #) system which generated this result tra nsmitted reference range : <=0.2. The reference r jase was not used to int erpret this result as normal/abnormal . [facility] HospitalCxvbhncDGDFZNIAPF6840-34-07 00:19:00 Test Item Value Reference Range Interpretation Comments Basophils (test code = 0.8 See_Comment [Aut omated message] The Basophils) system which ge nerated this result tra nsmitted reference range : <=1.0. The reference r jase was not used to int erpret this result as normal/abnormal . [facility] HospitalVqbsippXTEJTAPONZ5651-40-51 00:19:00 Test Item Value Reference Range Interpretation Comments Segs-Bands # (test code = Segs-Bands #) 4.4 1.5-8.1 [facility] HospitalUsntjdbHDLYHNQWJO3912-13-80 00:19:00 Test Item Value Reference Range Interpretation Comments Monocytes # (test code 0.6 See_Comment [Aut omated message] The = Monocytes #) system which generated this result tra nsmitted reference range : <=0.8. The reference r jase was not used to int erpret this result as normal/abnormal . [facility] HospitalMuddfwsXJIJPZKYUB5975-14-01 00:19:00 Test Item Value Reference Range Interpretation Comments Lymphocytes # (test code = Lymphocytes 2.6 1.0-5.5 #) [facility] HospitalWmraeggYEYOGWGFMY9343-38-84 00:19:00 Test Item Value Reference Range Interpretation Comments Lymphocytes (test code = Lymphocytes) 32.2 20.0-40.0 [facility] HospitalFgcefcaOVUZHVONCG6565-81-52 00:19:00 Test Item Value Reference Range Interpretation Comments Eosinophils (test code = 5.0 See_Comment [A utomated message] The Eosinophils) system which ge nerated this result tra nsmitted reference range : <=4.0. The reference r jase was not used to int erpret this result as normal/abnormal . [facility] HospitalUsqazgbOCLXWNKFLB3491-58-45 00:19:00 Test Item Value Reference Range Interpretation Comments Monocytes (test code = Monocytes) 7.3 2.0-12.0 [facility] HospitalNkmwkaqZQYJKGOHNR5179-68-56 00:19:00 Test Item Value Reference Range Interpretation Comments Segs (test code = Segs) 54.7 45.0-75.0 [facility]2018-06-28 00:19:00 Test Item Value Reference Range Interpretation Comments Ketone Quantitative (test code = Ketone 1.84 Quantitative) [facility]2018-06-28 00:19:00 Test Item Value Reference Range Interpretation Comments A/G Ratio (test code = A/G Ratio) 1.3 1 0.7-1.6 [facility]2018-06-28 00:19:00 Test Item Value Reference Range Interpretation Comments AGAP (test code = AGAP) 16.6 10.0-20.0 [facility]2018-06-28 00:19:00 Test Item Value Reference Range Interpretation Comments B/C Ratio (test code = B/C Ratio) 13 1 6-25 [facility]2018-06-28 00:19:00 Test Item Value Reference Range Interpretation Comments Globulin (test code = Globulin) 3.8 2.7-4.2 [facility]2018-06-28 00:19:00 Test Item Value Reference Range Interpretation Comments eGFR (test code = eGFR) 89 [facility]2018-06-28 00:19:00 Test Item Value Reference Range Interpretation Comments AST (test code = AST) 11 See_Comment [Auto mated message] The system which ge nerated this result transmit owen reference range : <=37. The reference range was not used to interpr et this result as fredi l/abnormal. [facility]2018-06-28 00:19:00 Test Item Value Reference Range Interpretation Comments Alk Phos (test code = Alk Phos) 90 39-136 [facility]2018-06-28 00:19:00 Test Item Value Reference Range Interpretation Comments Bili Total (test code = Bili Total) 1.2 0.2-1.3 [facility]2018-06-28 00:19:00 Test Item Value Reference Range Interpretation Comments Albumin Lvl (test code = Albumin Lvl) 4.8 3.5-5.0 [facility]2018-06-28 00:19:00 Test Item Value Reference Range Interpretation Comments Calcium Lvl (test code = Calcium Lvl) 10.0 8.5-10.5 [facility]2018-06-28 00:19:00 Test Item Value Reference Range Interpretation Comments Total Protein (test code = Total 8.6 6.4-8.4 Protein) [facility]2018-06-28 00:19:00 Test Item Value Reference Range Interpretation Comments ALT (test code = ALT) 22 See_Comment [Auto mated message] The system which ge nerated this result transmit owen reference range : <=65. The reference range was not used to interpr et this result as fredi l/abnormal. [facility]2018-06-28 00:19:00 Test Item Value Reference Range Interpretation Comments Potassium Lvl (test code = Potassium 3.6 3.5-5.1 Lvl) [facility]2018-06-28 00:19:00 Test Item Value Reference Range Interpretation Comments Chloride Lvl (test code = Chloride Lvl) 105 95-109 [facility]2018-06-28 00:19:00 Test Item Value Reference Range Interpretation Comments CO2 (test code = CO2) 19 24-32 [facility]2018-06-28 00:19:00 Test Item Value Reference Range Interpretation Comments Sodium Lvl (test code = Sodium Lvl) 137 135-145 [facility]2018-06-28 00:19:00 Test Item Value Reference Range Interpretation Comments Creatinine Lvl (test code = Creatinine 0.89 0.50-1.40 Lvl) [facility]2018-06-28 00:19:00 Test Item Value Reference Range Interpretation Comments BUN (test code = BUN) 12 7-22 [facility]2018-06-28 00:19:00 Test Item Value Reference Range Interpretation Comments Glucose Lvl (test code = Glucose Lvl) 138 70-99 [facility] CenterBvsjunmLWQGCNNXFVEFV9669-14-77 00:19:00 Test Item Value Reference Range Interpretation Comments S Preg (test code = S Negative *NA*(11/11/17 Preg) 7:19 PM) [facility] HospitalUgcdfgrAOXKEGUOXS9677-79-44 00:19:00 Test Item Value Reference Range Interpretation Comments MPV (test code = MPV) 8.8 7.4-10.4 [facility] HospitalPcarvxvPUWCAVHSHL9616-15-63 00:19:00 Test Item Value Reference Range Interpretation Comments MCHC (test code = MCHC) 35.2 32.0-36.0 [facility] HospitalEimqbozZVACCCCWVR2987-34-91 00:19:00 Test Item Value Reference Range Interpretation Comments RDW (test code = RDW) 12.3 11.5-14.5 [facility] HospitalTwkgbieOYHBHTQEXV9592-80-04 00:19:00 Test Item Value Reference Range Interpretation Comments MCH (test code = MCH) 33.9 pg 27.0-31.0 [facility] HospitalFambofkAEROIBWAHG8212-64-11 00:19:00 Test Item Value Reference Range Interpretation Comments Platelet (test code = Platelet) 338 133-450 [facility] HospitalXrpxfshVBALHDYWNQ3483-10-31 00:19:00 Test Item Value Reference Range Interpretation Comments MCV (test code = MCV) 96.4 80.0-98.0 [facility] HospitalIqwzxsjEASQFJUWGJ5473-77-16 00:19:00 Test Item Value Reference Range Interpretation Comments Hgb (test code = Hgb) 15.2 12.0-16.0 [facility] HospitalSnjavlmBUPFPQPVHS2596-43-81 00:19:00 Test Item Value Reference Range Interpretation Comments Hct (test code = Hct) 43.1 36.0-48.0 [facility] HospitalVvhqicrEJBMEPCYTP6001-70-72 00:19:00 Test Item Value Reference Range Interpretation Comments RBC (test code = RBC) 4.48 4.20-5.40 [facility] HospitalQzgtcnqUJZHIXFYFV8054-89-34 00:19:00 Test Item Value Reference Range Interpretation Comments WBC (test code = WBC) 8.0 3.7-10.4 [facility] HospitalNgusubuGAPFAGEWBS2729-42-40 00:19:00 Test Item Value Reference Range Interpretation Comments Eosinophils # (test code 0.4 See_Comment [A utomated message] The = Eosinophils #) system whic h generated this result tra nsmitted reference range : <=0.5. The reference r jase was not used to int erpret this result as normal/abnormal . [facility] HospitalEsholyuKRVFQOEWDF9134-24-44 00:19:00 Test Item Value Reference Range Interpretation Comments Basophils # (test code 0.1 See_Comment [Aut omated message] The = Basophils #) system which generated this result tra nsmitted reference range : <=0.2. The reference r jase was not used to int erpret this result as normal/abnormal . [facility] HospitalPijiihaBNUPCNETBU0123-74-66 00:19:00 Test Item Value Reference Range Interpretation Comments Basophils (test code = 0.8 See_Comment [Aut omated message] The Basophils) system which ge nerated this result tra nsmitted reference range : <=1.0. The reference r jase was not used to int erpret this result as normal/abnormal . [facility] HospitalHnaybijFDKGANIKLQ8307-07-38 00:19:00 Test Item Value Reference Range Interpretation Comments Segs-Bands # (test code = Segs-Bands #) 4.4 1.5-8.1 [facility] HospitalTogvfazUOYRTAJRBV8847-51-99 00:19:00 Test Item Value Reference Range Interpretation Comments Monocytes # (test code 0.6 See_Comment [Aut omated message] The = Monocytes #) system which generated this result tra nsmitted reference range : <=0.8. The reference r jase was not used to int erpret this result as normal/abnormal . [facility] HospitalPmergqlENPKSIXZTL4975-87-18 00:19:00 Test Item Value Reference Range Interpretation Comments Lymphocytes # (test code = Lymphocytes 2.6 1.0-5.5 #) [facility] HospitalGokkexuQURRUDBODN1100-91-52 00:19:00 Test Item Value Reference Range Interpretation Comments Lymphocytes (test code = Lymphocytes) 32.2 20.0-40.0 [facility] HospitalWyqhzkzIYKWNRCQQY4686-39-89 00:19:00 Test Item Value Reference Range Interpretation Comments Eosinophils (test code = 5.0 See_Comment [A utomated message] The Eosinophils) system which ge nerated this result tra nsmitted reference range : <=4.0. The reference r jase was not used to int erpret this result as normal/abnormal . [facility] HospitalTqncpbjYCADKQSOTD4297-20-09 00:19:00 Test Item Value Reference Range Interpretation Comments Monocytes (test code = Monocytes) 7.3 2.0-12.0 [facility] HospitalPitorrfEPYOBJZXNO6092-38-60 00:19:00 Test Item Value Reference Range Interpretation Comments Segs (test code = Segs) 54.7 45.0-75.0 [facility]2018-06-28 00:19:00 Test Item Value Reference Range Interpretation Comments Ketone Quantitative (test code = Ketone 1.84 Quantitative) [facility]2018-06-28 00:19:00 Test Item Value Reference Range Interpretation Comments A/G Ratio (test code = A/G Ratio) 1.3 1 0.7-1.6 [facility]2018-06-28 00:19:00 Test Item Value Reference Range Interpretation Comments AGAP (test code = AGAP) 16.6 10.0-20.0 [facility]2018-06-28 00:19:00 Test Item Value Reference Range Interpretation Comments B/C Ratio (test code = B/C Ratio) 13 1 6-25 [facility]2018-06-28 00:19:00 Test Item Value Reference Range Interpretation Comments Globulin (test code = Globulin) 3.8 2.7-4.2 [facility]2018-06-28 00:19:00 Test Item Value Reference Range Interpretation Comments eGFR (test code = eGFR) 89 [facility]2018-06-28 00:19:00 Test Item Value Reference Range Interpretation Comments AST (test code = AST) 11 See_Comment [Auto mated message] The system which ge nerated this result transmit owen reference range : <=37. The reference range was not used to interpr et this result as fredi l/abnormal. [facility]2018-06-28 00:19:00 Test Item Value Reference Range Interpretation Comments Alk Phos (test code = Alk Phos) 90 39-136 [facility]2018-06-28 00:19:00 Test Item Value Reference Range Interpretation Comments Bili Total (test code = Bili Total) 1.2 0.2-1.3 [facility]2018-06-28 00:19:00 Test Item Value Reference Range Interpretation Comments Albumin Lvl (test code = Albumin Lvl) 4.8 3.5-5.0 [facility]2018-06-28 00:19:00 Test Item Value Reference Range Interpretation Comments Calcium Lvl (test code = Calcium Lvl) 10.0 8.5-10.5 [facility]2018-06-28 00:19:00 Test Item Value Reference Range Interpretation Comments Total Protein (test code = Total 8.6 6.4-8.4 Protein) [facility]2018-06-28 00:19:00 Test Item Value Reference Range Interpretation Comments ALT (test code = ALT) 22 See_Comment [Auto mated message] The system which ge nerated this result transmit owen reference range : <=65. The reference range was not used to interpr et this result as fredi l/abnormal. [facility]2018-06-28 00:19:00 Test Item Value Reference Range Interpretation Comments Potassium Lvl (test code = Potassium 3.6 3.5-5.1 Lvl) [facility]2018-06-28 00:19:00 Test Item Value Reference Range Interpretation Comments Chloride Lvl (test code = Chloride Lvl) 105 95-109 [facility]2018-06-28 00:19:00 Test Item Value Reference Range Interpretation Comments CO2 (test code = CO2) 19 24-32 [facility]2018-06-28 00:19:00 Test Item Value Reference Range Interpretation Comments Sodium Lvl (test code = Sodium Lvl) 137 135-145 [facility]2018-06-28 00:19:00 Test Item Value Reference Range Interpretation Comments Creatinine Lvl (test code = Creatinine 0.89 0.50-1.40 Lvl) [facility]2018-06-28 00:19:00 Test Item Value Reference Range Interpretation Comments BUN (test code = BUN) 12 7-22 [facility]2018-06-28 00:19:00 Test Item Value Reference Range Interpretation Comments Glucose Lvl (test code = Glucose Lvl) 138 70-99 [facility] CenterHsjisjeSFNBNJCUZQKPI5613-47-58 00:19:00 Test Item Value Reference Range Interpretation Comments S Preg (test code = S Negative *NA*(11/11/17 Preg) 7:19 PM) [facility] HospitalGtluqfwCULDSANZSJ3444-55-08 00:19:00 Test Item Value Reference Range Interpretation Comments MPV (test code = MPV) 8.8 7.4-10.4 [facility] HospitalPwcxzclFFUFHAYCDZ0550-36-01 00:19:00 Test Item Value Reference Range Interpretation Comments MCHC (test code = MCHC) 35.2 32.0-36.0 [facility] HospitalMsjxbkzGEGYEABTCY7917-07-20 00:19:00 Test Item Value Reference Range Interpretation Comments RDW (test code = RDW) 12.3 11.5-14.5 [facility] HospitalOdvrvapRQELPMGPVW9147-73-62 00:19:00 Test Item Value Reference Range Interpretation Comments MCH (test code = MCH) 33.9 pg 27.0-31.0 [facility] HospitalEphhpvxDPAXVPXYGD2216-38-95 00:19:00 Test Item Value Reference Range Interpretation Comments Platelet (test code = Platelet) 338 133-450 [facility] HospitalKlmorekXZGLCRPFXX4548-51-82 00:19:00 Test Item Value Reference Range Interpretation Comments MCV (test code = MCV) 96.4 80.0-98.0 [facility] HospitalCryzqxwQXSQTVHFID9177-77-78 00:19:00 Test Item Value Reference Range Interpretation Comments Hgb (test code = Hgb) 15.2 12.0-16.0 [facility] HospitalEcmdhodRAZNTYEUJG0800-46-85 00:19:00 Test Item Value Reference Range Interpretation Comments Hct (test code = Hct) 43.1 36.0-48.0 [facility] HospitalAkqfcdmCUMDEIYBDV9775-32-57 00:19:00 Test Item Value Reference Range Interpretation Comments RBC (test code = RBC) 4.48 4.20-5.40 [facility] HospitalDjqosieDLUXMHJYOR2792-78-41 00:19:00 Test Item Value Reference Range Interpretation Comments WBC (test code = WBC) 8.0 3.7-10.4 [place] [id number] 00:19:00 Test Item Value Reference Range Interpretation Comments Eosinophils # (test code 0.4 See_Comment [A utomated message] The = Eosinophils #) system whic h generated this result tra nsmitted reference range : <=0.5. The reference r jase was not used to int erpret this result as normal/abnormal . [facility] HospitalRoweyylPOWCZEXXMK3172-43-62 00:19:00 Test Item Value Reference Range Interpretation Comments Basophils # (test code 0.1 See_Comment [Aut omated message] The = Basophils #) system which generated this result tra nsmitted reference range : <=0.2. The reference r jase was not used to int erpret this result as normal/abnormal . [facility] HospitalAdbcqsiSZGNEQCSNI9682-67-64 00:19:00 Test Item Value Reference Range Interpretation Comments Basophils (test code = 0.8 See_Comment [Aut omated message] The Basophils) system which ge nerated this result tra nsmitted reference range : <=1.0. The reference r jase was not used to int erpret this result as normal/abnormal . [facility] HospitalMlpxtggKDMTNOQRGQ6228-19-33 00:19:00 Test Item Value Reference Range Interpretation Comments Segs-Bands # (test code = Segs-Bands #) 4.4 1.5-8.1 [facility] HospitalHeybalrCKOBUPOBGB3606-76-00 00:19:00 Test Item Value Reference Range Interpretation Comments Monocytes # (test code 0.6 See_Comment [Aut omated message] The = Monocytes #) system which generated this result tra nsmitted reference range : <=0.8. The reference r jase was not used to int erpret this result as normal/abnormal . [facility] HospitalXidgrvdXZIGHWTFOL9767-68-98 00:19:00 Test Item Value Reference Range Interpretation Comments Lymphocytes # (test code = Lymphocytes 2.6 1.0-5.5 #) [facility] HospitalRwaxjuaWHGKDGRVGO0376-64-04 00:19:00 Test Item Value Reference Range Interpretation Comments Lymphocytes (test code = Lymphocytes) 32.2 20.0-40.0 [facility] HospitalKefiqkdSIIIKHGPIC8996-80-88 00:19:00 Test Item Value Reference Range Interpretation Comments Eosinophils (test code = 5.0 See_Comment [A utomated message] The Eosinophils) system which ge nerated this result tra nsmitted reference range : <=4.0. The reference r jase was not used to int erpret this result as normal/abnormal . [facility] HospitalVgucihuLQTHTCWBDG5585-16-62 00:19:00 Test Item Value Reference Range Interpretation Comments Monocytes (test code = Monocytes) 7.3 2.0-12.0 [facility] HospitalLoksfsjEQRWFDPFMA8273-17-73 00:19:00 Test Item Value Reference Range Interpretation Comments Segs (test code = Segs) 54.7 45.0-75.0 [place] [id number] 15:37:00 Test Item Value Reference Range Interpretation Comments S Preg (test code = S Negative *NA*(11/29/15 Preg) 10:37 AM) [place] [id number] 15:37:00 Test Item Value Reference Range Interpretation Comments S Preg (test code = S Negative *NA*(11/29/15 Preg) 10:37 AM) [place] [id number] 15:37:00 Test Item Value Reference Range Interpretation Comments S Preg (test code = S Negative *NA*(11/29/15 Preg) 10:37 AM) [facility] AND [id number] 15:45:00 Test Item Value Reference Range Interpretation Comments UA Bili (test code = Small *ABN*(11/15/15 UA Bili) 10:45 AM) [facility] AND [id number] 15:45:00 Test Item Value Reference Range Interpretation Comments UA Ketones (test code = UA Ketones) 40 mg/dL [facility] AND [id number] 15:45:00 Test Item Value Reference Range Interpretation Comments UA Urobilinogen (test code = UA 0.2 0.1-1.0 Urobilinogen) [facility] AND [id number] 15:45:00 Test Item Value Reference Range Interpretation Comments UA Leuk Est (test Negative (11/15/15 10:45 code = UA Leuk Est) AM) [facility] AND [id number] 15:45:00 Test Item Value Reference Range Interpretation Comments UA Blood (test code = Moderate *ABN*(11/15/15 UA Blood) 10:45 AM) [facility] AND [id number] 15:45:00 Test Item Value Reference Range Interpretation Comments UA Nitrite (test code Negative (11/15/15 10:45 = UA Nitrite) AM) [facility] AND [id number] 15:45:00 Test Item Value Reference Range Interpretation Comments UA Color (test code = Yellow *NA*(11/15/15 UA Color) 10:45 AM) [facility] AND [id number] 15:45:00 Test Item Value Reference Range Interpretation Comments UA Glucose (test code Negative (11/15/15 10:45 = UA Glucose) AM) [facility] AND [id number] 15:45:00 Test Item Value Reference Range Interpretation Comments UA Protein (test code = UA Protein) 30 mg/dL [facility] AND [id number] 15:45:00 Test Item Value Reference Range Interpretation Comments UA pH (test code = UA pH) 6.5 1 5.0-8.0 [facility] AND [id number] 15:45:00 Test Item Value Reference Range Interpretation Comments UA Spec Grav (test code = UA Spec 1.025 1 Grav) [facility] AND [id number] 15:45:00 Test Item Value Reference Range Interpretation Comments UA Turbidity (test code = Clear (11/15/15 10:45 UA Turbidity) AM) [facility] AND [id number] 15:45:00 Test Item Value Reference Range Interpretation Comments UA RBC (test code = 0-2 /HPF See_Comment [Automa owen message] The UA RBC) system which ge nerated this result tra nsmitted reference range : <=2. The reference range was not used to interpr et this result as fredi l/abnormal. [facility] AND [id number] 15:45:00 Test Item Value Reference Range Interpretation Comments UA WBC (test code = UA None Seen (11/15/15 WBC) 10:45 AM) [facility] AND [id number] 15:45:00 Test Item Value Reference Range Interpretation Comments UA Mucus (test code = UA Mucus) Few /LPF [facility] AND [id number] 15:45:00 Test Item Value Reference Range Interpretation Comments UA Bacteria (test code = UA Few /HPF Bacteria) [facility] AND [id number] 15:45:00 Test Item Value Reference Range Interpretation Comments UA Sq Epi (test code = UA Sq Epi) Few /LPF [facility] AND [id number] 15:45:00 Test Item Value Reference Range Interpretation Comments UA Bili (test code = Small *ABN*(11/15/15 UA Bili) 10:45 AM) [facility] AND [id number] 15:45:00 Test Item Value Reference Range Interpretation Comments UA Ketones (test code = UA Ketones) 40 mg/dL [facility] AND [id number] 15:45:00 Test Item Value Reference Range Interpretation Comments UA Urobilinogen (test code = UA 0.2 0.1-1.0 Urobilinogen) [facility] AND [id number] 15:45:00 Test Item Value Reference Range Interpretation Comments UA Leuk Est (test Negative (11/15/15 10:45 code = UA Leuk Est) AM) [facility] AND [id number] 15:45:00 Test Item Value Reference Range Interpretation Comments UA Blood (test code = Moderate *ABN*(11/15/15 UA Blood) 10:45 AM) [facility] AND [id number] 15:45:00 Test Item Value Reference Range Interpretation Comments UA Nitrite (test code Negative (11/15/15 10:45 = UA Nitrite) AM) [facility] AND [id number] 15:45:00 Test Item Value Reference Range Interpretation Comments UA Color (test code = Yellow *NA*(11/15/15 UA Color) 10:45 AM) [facility] AND [id number] 15:45:00 Test Item Value Reference Range Interpretation Comments UA Glucose (test code Negative (11/15/15 10:45 = UA Glucose) AM) [facility] AND [id number] 15:45:00 Test Item Value Reference Range Interpretation Comments UA Protein (test code = UA Protein) 30 mg/dL [facility] AND [id number] 15:45:00 Test Item Value Reference Range Interpretation Comments UA pH (test code = UA pH) 6.5 1 5.0-8.0 [facility] AND [id number] 15:45:00 Test Item Value Reference Range Interpretation Comments UA Spec Grav (test code = UA Spec 1.025 1 Grav) [facility] AND [id number] 15:45:00 Test Item Value Reference Range Interpretation Comments UA Turbidity (test code = Clear (11/15/15 10:45 UA Turbidity) AM) [facility] AND [id number] 15:45:00 Test Item Value Reference Range Interpretation Comments UA RBC (test code = 0-2 /HPF See_Comment [Automa owen message] The UA RBC) system which ge nerated this result tra nsmitted reference range : <=2. The reference range was not used to interpr et this result as fredi l/abnormal. [facility] AND [id number] 15:45:00 Test Item Value Reference Range Interpretation Comments UA WBC (test code = UA None Seen (11/15/15 WBC) 10:45 AM) [facility] AND [id number] 15:45:00 Test Item Value Reference Range Interpretation Comments UA Mucus (test code = UA Mucus) Few /LPF [facility] AND [id number] 15:45:00 Test Item Value Reference Range Interpretation Comments UA Bacteria (test code = UA Few /HPF Bacteria) [facility] AND [id number] 15:45:00 Test Item Value Reference Range Interpretation Comments UA Sq Epi (test code = UA Sq Epi) Few /LPF [facility] AND [id number] 15:45:00 Test Item Value Reference Range Interpretation Comments UA Bili (test code = Small *ABN*(11/15/15 UA Bili) 10:45 AM) [facility] AND [id number] 15:45:00 Test Item Value Reference Range Interpretation Comments UA Ketones (test code = UA Ketones) 40 mg/dL [facility] AND [id number] 15:45:00 Test Item Value Reference Range Interpretation Comments UA Urobilinogen (test code = UA 0.2 0.1-1.0 Urobilinogen) [facility] AND [id number] 15:45:00 Test Item Value Reference Range Interpretation Comments UA Leuk Est (test Negative (11/15/15 10:45 code = UA Leuk Est) AM) [facility] AND [id number] 15:45:00 Test Item Value Reference Range Interpretation Comments UA Blood (test code = Moderate *ABN*(11/15/15 UA Blood) 10:45 AM) [facility] AND [id number] 15:45:00 Test Item Value Reference Range Interpretation Comments UA Nitrite (test code Negative (11/15/15 10:45 = UA Nitrite) AM) [facility] AND [id number] 15:45:00 Test Item Value Reference Range Interpretation Comments UA Color (test code = Yellow *NA*(11/15/15 UA Color) 10:45 AM) [facility] AND [id number] 15:45:00 Test Item Value Reference Range Interpretation Comments UA Glucose (test code Negative (11/15/15 10:45 = UA Glucose) AM) [facility] AND [id number] 15:45:00 Test Item Value Reference Range Interpretation Comments UA Protein (test code = UA Protein) 30 mg/dL [facility] AND [id number] 15:45:00 Test Item Value Reference Range Interpretation Comments UA pH (test code = UA pH) 6.5 1 5.0-8.0 [facility] AND [id number] 15:45:00 Test Item Value Reference Range Interpretation Comments UA Spec Grav (test code = UA Spec 1.025 1 Grav) [facility] AND [id number] 15:45:00 Test Item Value Reference Range Interpretation Comments UA Turbidity (test code = Clear (11/15/15 10:45 UA Turbidity) AM) [facility] AND [id number] 15:45:00 Test Item Value Reference Range Interpretation Comments UA RBC (test code = 0-2 /HPF See_Comment [Automa owen message] The UA RBC) system which ge nerated this result tra nsmitted reference range : <=2. The reference range was not used to interpr et this result as fredi l/abnormal. [facility] AND [id number] 15:45:00 Test Item Value Reference Range Interpretation Comments UA WBC (test code = UA None Seen (11/15/15 WBC) 10:45 AM) [facility] AND [id number] 15:45:00 Test Item Value Reference Range Interpretation Comments UA Mucus (test code = UA Mucus) Few /LPF [facility] AND [id number] 15:45:00 Test Item Value Reference Range Interpretation Comments UA Bacteria (test code = UA Few /HPF Bacteria) [facility] AND [id number] 15:45:00 Test Item Value Reference Range Interpretation Comments UA Sq Epi (test code = UA Sq Epi) Few /LPF [facility] [id number] 14:22:00 Test Item Value Reference Range Interpretation Comments Lipase Lvl (test code = Lipase Lvl) 197 73-393 [facility]2016-06-30 14:22:00 Test Item Value Reference Range Interpretation Comments B/C Ratio (test code = B/C Ratio) 19 6-25 [facility]2016-06-30 14:22:00 Test Item Value Reference Range Interpretation Comments AGAP (test code = AGAP) 19.3 10.0-20.0 [facility]2016-06-30 14:22:00 Test Item Value Reference Range Interpretation Comments A/G Ratio (test code = A/G Ratio) 1.1 0.7-1.6 [facility]2016-06-30 14:22:00 Test Item Value Reference Range Interpretation Comments Globulin (test code = Globulin) 3.6 2.0-4.0 [facility]2016-06-30 14:22:00 Test Item Value Reference Range Interpretation Comments eGFR (test code = eGFR) 114 [facility]2016-06-30 14:22:00 Test Item Value Reference Range Interpretation Comments AST (test code = AST) 13 See_Comment [Auto mated message] The system which ge nerated this result transmit owen reference range : <=37. The reference range was not used to interpr et this result as fredi l/abnormal. [facility]2016-06-30 14:22:00 Test Item Value Reference Range Interpretation Comments Bili Total (test code = Bili Total) 0.7 0.2-1.3 [facility]2016-06-30 14:22:00 Test Item Value Reference Range Interpretation Comments Alk Phos (test code = Alk Phos) 67 39-136 [place] [id number] 14:22:00 Test Item Value Reference Range Interpretation Comments Sodium Lvl (test code = Sodium Lvl) 140 135-145 [facility]2016-06-30 14:22:00 Test Item Value Reference Range Interpretation Comments Potassium Lvl (test code = Potassium 4.3 3.5-5.1 Lvl) [facility]2016-06-30 14:22:00 Test Item Value Reference Range Interpretation Comments Chloride Lvl (test code = Chloride Lvl) 106 95-109 [facility]2016-06-30 14:22:00 Test Item Value Reference Range Interpretation Comments Calcium Lvl (test code = Calcium Lvl) 9.5 8.5-10.5 [facility]2016-06-30 14:22:00 Test Item Value Reference Range Interpretation Comments Albumin Lvl (test code = Albumin Lvl) 4.1 3.5-5.0 [facility]2016-06-30 14:22:00 Test Item Value Reference Range Interpretation Comments Total Protein (test code = Total 7.7 6.4-8.4 Protein) [facility]2016-06-30 14:22:00 Test Item Value Reference Range Interpretation Comments ALT (test code = ALT) 15 See_Comment [Auto mated message] The system which ge nerated this result transmit owen reference range : <=65. The reference range was not used to interpr et this result as fredi l/abnormal. [facility]2016-06-30 14:22:00 Test Item Value Reference Range Interpretation Comments CO2 (test code = CO2) 19 24-32 [facility]2016-06-30 14:22:00 Test Item Value Reference Range Interpretation Comments Glucose Lvl (test code = Glucose Lvl) 167 70-99 [facility]2016-06-30 14:22:00 Test Item Value Reference Range Interpretation Comments Creatinine Lvl (test code = Creatinine 0.73 0.50-1.40 Lvl) [facility]2016-06-30 14:22:00 Test Item Value Reference Range Interpretation Comments BUN (test code = BUN) 14 7-22 [id number] 14:22:00 Test Item Value Reference Range Interpretation Comments S Preg (test code = S Negative *NA*(11/15/15 Preg) 9:22 AM) [facility] H[id number] 14:22:00 Test Item Value Reference Range Interpretation Comments MCHC (test code = MCHC) 35.0 32.0-36.0 [facility] Hos[id number] 14:22:00 Test Item Value Reference Range Interpretation Comments RDW (test code = RDW) 12.1 11.5-14.5 [facility] Hospit[id number] 14:22:00 Test Item Value Reference Range Interpretation Comments Platelet (test code = Platelet) 258 133-450 [facility] HospitalDbuqwafDCOMFROHSH8619-84-20 14:22:00 Test Item Value Reference Range Interpretation Comments MPV (test code = MPV) 8.6 7.4-10.4 [facility] HospitalJhnflmvDVMXODHLMW9882-05-86 14:22:00 Test Item Value Reference Range Interpretation Comments Hgb (test code = Hgb) 14.1 12.0-16.0 [facility] H[id number] 14:22:00 Test Item Value Reference Range Interpretation Comments MCV (test code = MCV) 92.5 80.0-98.0 [facility] Hospit[id number] 14:22:00 Test Item Value Reference Range Interpretation Comments Hct (test code = Hct) 40.4 36.0-48.0 [facility] HospitalFodjpvaAUSJUFOOUK0541-54-96 14:22:00 Test Item Value Reference Range Interpretation Comments MCH (test code = MCH) 32.4 pg 27.0-31.0 [facility] HospitalQpaogshCBBBWWRVGC4554-53-52 14:22:00 Test Item Value Reference Range Interpretation Comments RBC (test code = RBC) 4.37 4.20-5.40 [facility] HospitalXjamkbvOUKMACOPTT5678-94-92 14:22:00 Test Item Value Reference Range Interpretation Comments WBC (test code = WBC) 7.0 3.7-10.4 [facility] HospitalDegrdgdCERNGPFSHW6734-06-93 14:22:00 Test Item Value Reference Range Interpretation Comments Eosinophils # (test code 0.7 See_Comment [A utomated message] The = Eosinophils #) system ic h generated this result tra nsmitted reference range : <=0.5. The reference r jase was not used to int erpret this result as normal/abnormal . [facility] HospitalSewrsdgLINRVRRPVG1187-39-23 14:22:00 Test Item Value Reference Range Interpretation Comments Basophils # (test code 0.1 See_Comment [Aut omated message] The = Basophils #) system which generated this result tra nsmitted reference range : <=0.2. The reference r jase was not used to int erpret this result as normal/abnormal . [facility] Hospit[id number] 14:22:00 Test Item Value Reference Range Interpretation Comments Lymphocytes # (test code = Lymphocytes 2.3 1.0-5.5 #) [facility] HospitalUkihrjpZTQDIYXFWV9119-29-75 14:22:00 Test Item Value Reference Range Interpretation Comments Segs-Bands # (test code = Segs-Bands #) 3.5 1.5-8.1 [facility] HospitalSorkrspOTFJONKMRM3315-09-34 14:22:00 Test Item Value Reference Range Interpretation Comments Monocytes # (test code 0.4 See_Comment [Aut omated message] The = Monocytes #) system which generated this result tra nsmitted reference range : <=0.8. The reference r jase was not used to int erpret this result as normal/abnormal . [facility] HospitalUnoacohHKPNJKCQVR0188-35-18 14:22:00 Test Item Value Reference Range Interpretation Comments Lymphocytes (test code = Lymphocytes) 32.9 20.0-40.0 [facility] HospitalXfgxrdvGBKNXDYBOL6416-88-55 14:22:00 Test Item Value Reference Range Interpretation Comments Segs (test code = Segs) 49.3 45.0-75.0 [facility] HospitalGfgthoaKPJTIRIDIW6960-57-03 14:22:00 Test Item Value Reference Range Interpretation Comments Monocytes (test code = Monocytes) 5.4 2.0-12.0 [facility] HospitalMwxpxnzYGNQJSGFPE8969-80-49 14:22:00 Test Item Value Reference Range Interpretation Comments Eosinophils (test code = 10.5 See_Comment [A utomated message] The Eosinophils) system which ge nerated this result tra nsmitted reference range : <=4.0. The reference r jase was not used to int erpret this result as normal/abnormal . [facility] HospitalBntinzkRYEIQMLUHH6032-97-46 14:22:00 Test Item Value Reference Range Interpretation Comments Basophils (test code = 1.9 See_Comment [Aut omated message] The Basophils) system which ge nerated this result tra nsmitted reference range : <=1.0. The reference r jase was not used to int erpret this result as normal/abnormal . [facility]XhqldoqWHBTQMMWYG6436-08-14 14:22:00 Test Item Value Reference Range Interpretation Comments CDC HIV 4th GEN (test Negative (11/15/15 9:22 code = CDC HIV 4th AM) GEN) [facility] [id number] 14:22:00 Test Item Value Reference Range Interpretation Comments Lipase Lvl (test code = Lipase Lvl) 197 73-393 [facility] CenterVidFall.comCRITICAL ACCESS HOSPITALGXCEL2369-25-86 14:22:00 Test Item Value Reference Range Interpretation Comments B/C Ratio (test code = B/C Ratio) 19 6-25 [facility]2016-06-30 14:22:00 Test Item Value Reference Range Interpretation Comments AGAP (test code = AGAP) 19.3 10.0-20.0 [facility] CenterVidFall.comCRITICAL ACCESS HOSPITALKNDXZ0202-05-55 14:22:00 Test Item Value Reference Range Interpretation Comments A/G Ratio (test code = A/G Ratio) 1.1 0.7-1.6 [facility]2016-06-30 14:22:00 Test Item Value Reference Range Interpretation Comments Globulin (test code = Globulin) 3.6 2.0-4.0 [facility]2016-06-30 14:22:00 Test Item Value Reference Range Interpretation Comments eGFR (test code = eGFR) 114 [facility]2016-06-30 14:22:00 Test Item Value Reference Range Interpretation Comments AST (test code = AST) 13 See_Comment [Auto mated message] The system which ge nerated this result transmit owen reference range : <=37. The reference range was not used to interpr et this result as fredi l/abnormal. [facility] [id number] 14:22:00 Test Item Value Reference Range Interpretation Comments Bili Total (test code = Bili Total) 0.7 0.2-1.3 [facility]2016-06-30 14:22:00 Test Item Value Reference Range Interpretation Comments Alk Phos (test code = Alk Phos) 67 39-136 [facility] [id number] 14:22:00 Test Item Value Reference Range Interpretation Comments Sodium Lvl (test code = Sodium Lvl) 140 135-145 [facility]2016-06-30 14:22:00 Test Item Value Reference Range Interpretation Comments Potassium Lvl (test code = Potassium 4.3 3.5-5.1 Lvl) [facility]2016-06-30 14:22:00 Test Item Value Reference Range Interpretation Comments Chloride Lvl (test code = Chloride Lvl) 106 95-109 [facility]2016-06-30 14:22:00 Test Item Value Reference Range Interpretation Comments Calcium Lvl (test code = Calcium Lvl) 9.5 8.5-10.5 [facility]2016-06-30 14:22:00 Test Item Value Reference Range Interpretation Comments Albumin Lvl (test code = Albumin Lvl) 4.1 3.5-5.0 [facility]2016-06-30 14:22:00 Test Item Value Reference Range Interpretation Comments Total Protein (test code = Total 7.7 6.4-8.4 Protein) [facility]2016-06-30 14:22:00 Test Item Value Reference Range Interpretation Comments ALT (test code = ALT) 15 See_Comment [Auto mated message] The system which ge nerated this result transmit owen reference range : <=65. The reference range was not used to interpr et this result as fredi l/abnormal. [facility]2016-06-30 14:22:00 Test Item Value Reference Range Interpretation Comments CO2 (test code = CO2) 19 24-32 [facility]2016-06-30 14:22:00 Test Item Value Reference Range Interpretation Comments Glucose Lvl (test code = Glucose Lvl) 167 70-99 [facility]2016-06-30 14:22:00 Test Item Value Reference Range Interpretation Comments Creatinine Lvl (test code = Creatinine 0.73 0.50-1.40 Lvl) [facility]2016-06-30 14:22:00 Test Item Value Reference Range Interpretation Comments BUN (test code = BUN) 14 7-22 [facility] HospitalJmzjxbqEUHEZPTLUEECC0055-78-76 14:22:00 Test Item Value Reference Range Interpretation Comments S Preg (test code = S Negative *NA*(11/15/15 Preg) 9:22 AM) [facility] HospitalTykbohkUZGXJYKFCP4543-57-88 14:22:00 Test Item Value Reference Range Interpretation Comments MCHC (test code = MCHC) 35.0 32.0-36.0 [facility] HospitalBljmcyrBWOPUGTFFH8074-57-45 14:22:00 Test Item Value Reference Range Interpretation Comments RDW (test code = RDW) 12.1 11.5-14.5 [facility] HospitalXwhqwhiICDLNUGRIF5633-85-64 14:22:00 Test Item Value Reference Range Interpretation Comments Platelet (test code = Platelet) 258 133-450 [facility] HospitalUfluwypYNDVSDSCJH6399-15-83 14:22:00 Test Item Value Reference Range Interpretation Comments MPV (test code = MPV) 8.6 7.4-10.4 [facility] HospitalHdyclqjVHETTCJWGP8088-12-15 14:22:00 Test Item Value Reference Range Interpretation Comments Hgb (test code = Hgb) 14.1 12.0-16.0 [facility] HospitalBewtyejUNUWSFWROF5519-86-83 14:22:00 Test Item Value Reference Range Interpretation Comments MCV (test code = MCV) 92.5 80.0-98.0 [facility] HospitalPamdhdwEYALWBOMPB9675-20-78 14:22:00 Test Item Value Reference Range Interpretation Comments Hct (test code = Hct) 40.4 36.0-48.0 [facility] HospitalFajrbnoCWBEOISROL0037-71-52 14:22:00 Test Item Value Reference Range Interpretation Comments MCH (test code = MCH) 32.4 pg 27.0-31.0 [facility] HospitalNlvpyxbYMQTLMYAVU6209-51-69 14:22:00 Test Item Value Reference Range Interpretation Comments RBC (test code = RBC) 4.37 4.20-5.40 [facility] HospitalQqgvvkxNFGXFJFTXF9970-46-54 14:22:00 Test Item Value Reference Range Interpretation Comments WBC (test code = WBC) 7.0 3.7-10.4 [facility] HospitalSnqwqneORLNZNFQKU2587-76-26 14:22:00 Test Item Value Reference Range Interpretation Comments Eosinophils # (test code 0.7 See_Comment [A utomated message] The = Eosinophils #) system whic h generated this result tra nsmitted reference range : <=0.5. The reference r jase was not used to int erpret this result as normal/abnormal . [facility] HospitalRxlqcndHBKWXZCQAV0935-04-00 14:22:00 Test Item Value Reference Range Interpretation Comments Basophils # (test code 0.1 See_Comment [Aut omated message] The = Basophils #) system which generated this result tra nsmitted reference range : <=0.2. The reference r jase was not used to int erpret this result as normal/abnormal . [facility] HospitalTwbznugKSWCGVTQLF3496-73-25 14:22:00 Test Item Value Reference Range Interpretation Comments Lymphocytes # (test code = Lymphocytes 2.3 1.0-5.5 #) [facility] HospitalSioydyeQLQJPCKOWJ1472-47-70 14:22:00 Test Item Value Reference Range Interpretation Comments Segs-Bands # (test code = Segs-Bands #) 3.5 1.5-8.1 [facility] HospitalYtzcfbkUGAEYMLWOO1036-25-25 14:22:00 Test Item Value Reference Range Interpretation Comments Monocytes # (test code 0.4 See_Comment [Aut omated message] The = Monocytes #) system which generated this result tra nsmitted reference range : <=0.8. The reference r jase was not used to int erpret this result as normal/abnormal . [facility] HospitalNujecsfHIRDOBNVNK6215-11-53 14:22:00 Test Item Value Reference Range Interpretation Comments Lymphocytes (test code = Lymphocytes) 32.9 20.0-40.0 [facility] HospitalQrbmbknVKSMCVMYHQ6350-97-10 14:22:00 Test Item Value Reference Range Interpretation Comments Segs (test code = Segs) 49.3 45.0-75.0 [facility] HospitalMwkiloqMIYGYKBRTA7009-74-34 14:22:00 Test Item Value Reference Range Interpretation Comments Monocytes (test code = Monocytes) 5.4 2.0-12.0 [facility] HospitalWkzsewmCJCVETGDKE9781-68-89 14:22:00 Test Item Value Reference Range Interpretation Comments Eosinophils (test code = 10.5 See_Comment [A utomated message] The Eosinophils) system which ge nerated this result tra nsmitted reference range : <=4.0. The reference r jase was not used to int erpret this result as normal/abnormal . [facility] HospitalRdaknrzVHCIQGTHAU2071-66-99 14:22:00 Test Item Value Reference Range Interpretation Comments Basophils (test code = 1.9 See_Comment [Aut omated message] The Basophils) system which ge nerated this result tra nsmitted reference range : <=1.0. The reference r jase was not used to int erpret this result as normal/abnormal . [facility] CenterOpzbbzqKDWSEWXVKG7810-27-81 14:22:00 Test Item Value Reference Range Interpretation Comments CDC HIV 4th GEN (test Negative (11/15/15 9:22 code = CDC HIV 4th AM) GEN) [facility] [id number] 14:22:00 Test Item Value Reference Range Interpretation Comments Lipase Lvl (test code = Lipase Lvl) 197 73-[facility] [facility] [id number] 14:22:00 Test Item Value Reference Range Interpretation Comments B/C Ratio (test code = B/C Ratio) 19 6-25 [facility]2016-06-30 14:22:00 Test Item Value Reference Range Interpretation Comments AGAP (test code = AGAP) 19.3 10.0-[facility] [id number] 14:22:00 Test Item Value Reference Range Interpretation Comments A/G Ratio (test code = A/G Ratio) 1.1 0.7-1.6 [facility] CenterVidFall.comCRITICAL ACCESS HOSPITALCTVTS0696-40-44 14:22:00 Test Item Value Reference Range Interpretation Comments Globulin (test code = Globulin) 3.6 2.0-4.0 [facility] [id number] 14:22:00 Test Item Value Reference Range Interpretation Comments eGFR (test code = eGFR) 114 [facility]2016-06-30 14:22:00 Test Item Value Reference Range Interpretation Comments AST (test code = AST) 13 See_Comment [Auto mated message] The system which ge nerated this result transmit owen reference range : <=37. The reference range was not used to interpr et this result as fredi l/abnormal. [facility] [employer] [id number] 14:22:00 Test Item Value Reference Range Interpretation Comments Bili Total (test code = Bili Total) 0.7 0.2-1.3 [facility]2016-06-30 14:22:00 Test Item Value Reference Range Interpretation Comments Alk Phos (test code = Alk Phos) 67 39-136 [facility]2016-06-30 14:22:00 Test Item Value Reference Range Interpretation Comments Sodium Lvl (test code = Sodium Lvl) 140 135-145 [facility]2016-06-30 14:22:00 Test Item Value Reference Range Interpretation Comments Potassium Lvl (test code = Potassium 4.3 3.5-5.1 Lvl) [facility]2016-06-30 14:22:00 Test Item Value Reference Range Interpretation Comments Chloride Lvl (test code = Chloride Lvl) 106 95-109 [facility]2016-06-30 14:22:00 Test Item Value Reference Range Interpretation Comments Calcium Lvl (test code = Calcium Lvl) 9.5 8.5-10.5 [facility]2016-06-30 14:22:00 Test Item Value Reference Range Interpretation Comments Albumin Lvl (test code = Albumin Lvl) 4.1 3.5-5.0 [facility]2016-06-30 14:22:00 Test Item Value Reference Range Interpretation Comments Total Protein (test code = Total 7.7 6.4-8.4 Protein) [facility]2016-06-30 14:22:00 Test Item Value Reference Range Interpretation Comments ALT (test code = ALT) 15 See_Comment [Auto mated message] The system which ge nerated this result transmit owen reference range : <=65. The reference range was not used to interpr et this result as fredi l/abnormal. [facility]2016-06-30 14:22:00 Test Item Value Reference Range Interpretation Comments CO2 (test code = CO2) 19 24-32 [facility]2016-06-30 14:22:00 Test Item Value Reference Range Interpretation Comments Glucose Lvl (test code = Glucose Lvl) 167 70-99 [facility]2016-06-30 14:22:00 Test Item Value Reference Range Interpretation Comments Creatinine Lvl (test code = Creatinine 0.73 0.50-1.40 Lvl) [facility]2016-06-30 14:22:00 Test Item Value Reference Range Interpretation Comments BUN (test code = BUN) 14 7- [facility]OzwxfgeMDSCOUKYQFKQY4641-40-36 14:22:00 Test Item Value Reference Range Interpretation Comments S Preg (test code = S Negative *NA*(11/15/15 Preg) 9:22 AM) [facility] HospitalLypdhjeQGDNMJYIWR4874-71-76 14:22:00 Test Item Value Reference Range Interpretation Comments MCHC (test code = MCHC) 35.0 32.0-36.0 [facility] HospitalVlqnzxtUWXMDBLCRD2277-71-33 14:22:00 Test Item Value Reference Range Interpretation Comments RDW (test code = RDW) 12.1 11.5-14.5 [facility] HospitalIionaynSMYSHEBKWW5001-37-16 14:22:00 Test Item Value Reference Range Interpretation Comments Platelet (test code = Platelet) 258 133-450 [facility] HospitalWabdkrkGLFGBZOOLS4901-41-75 14:22:00 Test Item Value Reference Range Interpretation Comments MPV (test code = MPV) 8.6 7.4-10.4 [facility] HospitalGubluftBESRHJZOLK8593-18-64 14:22:00 Test Item Value Reference Range Interpretation Comments Hgb (test code = Hgb) 14.1 12.0-16.0 [facility] HospitalQgiwrsoDVRGKZKJKK4818-14-83 14:22:00 Test Item Value Reference Range Interpretation Comments MCV (test code = MCV) 92.5 80.0-98.0 [facility] HospitalChgbvsnZGHKNKKMRP0309-69-96 14:22:00 Test Item Value Reference Range Interpretation Comments Hct (test code = Hct) 40.4 36.0-48.0 [facility] HospitalVwifkncWMICQSRIHO5786-05-74 14:22:00 Test Item Value Reference Range Interpretation Comments MCH (test code = MCH) 32.4 pg 27.0-31.0 [facility] HospitalTexpvudYDOJBTCCAY4268-77-51 14:22:00 Test Item Value Reference Range Interpretation Comments RBC (test code = RBC) 4.37 4.20-5.40 [facility] HospitalIcvgvtxKIHNBLJCPL2881-22-67 14:22:00 Test Item Value Reference Range Interpretation Comments WBC (test code = WBC) 7.0 3.7-10.4 [facility] HospitalQyaggdePUKCWSILOI9964-09-34 14:22:00 Test Item Value Reference Range Interpretation Comments Eosinophils # (test code 0.7 See_Comment [A utomated message] The = Eosinophils #) system whic h generated this result tra nsmitted reference range : <=0.5. The reference r jase was not used to int erpret this result as normal/abnormal . [facility] HospitalIzrdoeiLROLGSFBGE3867-42-80 14:22:00 Test Item Value Reference Range Interpretation Comments Basophils # (test code 0.1 See_Comment [Aut omated message] The = Basophils #) system which generated this result tra nsmitted reference range : <=0.2. The reference r jase was not used to int erpret this result as normal/abnormal . [facility] HospitalSymmxqqMXADFKFXGD9335-68-89 14:22:00 Test Item Value Reference Range Interpretation Comments Lymphocytes # (test code = Lymphocytes 2.3 1.0-5.5 #) [facility] HospitalLwpmxsfBCDHYMWEQX1752-16-73 14:22:00 Test Item Value Reference Range Interpretation Comments Segs-Bands # (test code = Segs-Bands #) 3.5 1.5-8.1 [facility] HospitalUpwmdouWOLHNPSMOP4687-81-45 14:22:00 Test Item Value Reference Range Interpretation Comments Monocytes # (test code 0.4 See_Comment [Aut omated message] The = Monocytes #) system which generated this result tra nsmitted reference range : <=0.8. The reference r jase was not used to int erpret this result as normal/abnormal . [facility] HospitalBrxqfyrKDZHBEXGWP7377-46-88 14:22:00 Test Item Value Reference Range Interpretation Comments Lymphocytes (test code = Lymphocytes) 32.9 20.0-40.0 [facility] HospitalTbclntqIHROJZQWVG9508-06-31 14:22:00 Test Item Value Reference Range Interpretation Comments Segs (test code = Segs) 49.3 45.0-75.0 [facility] HospitalItmsmlsEUKIUEHQUZ7736-18-60 14:22:00 Test Item Value Reference Range Interpretation Comments Monocytes (test code = Monocytes) 5.4 2.0-12.0 [facility] HospitalNmvvudmCCJITJJAEO9342-70-10 14:22:00 Test Item Value Reference Range Interpretation Comments Eosinophils (test code = 10.5 See_Comment [A utomated message] The Eosinophils) system which ge nerated this result tra nsmitted reference range : <=4.0. The reference r jase was not used to int erpret this result as normal/abnormal . [facility] HospitalXoxifqnUYHYZSMYRC8370-40-21 14:22:00 Test Item Value Reference Range Interpretation Comments Basophils (test code = 1.9 See_Comment [Aut omated message] The Basophils) system which ge nerated this result tra nsmitted reference range : <=1.0. The reference r jase was not used to int erpret this result as normal/abnormal . [facility]CuyxrdjTPGVTAKEFC5987-43-49 14:22:00 Test Item Value Reference Range Interpretation Comments CDC HIV 4th GEN (test Negative (11/15/15 9:22 code = CDC HIV 4th AM) GEN) [facility] HospitalDmeqqhsYVCZQZWZETFY5784-70-76 10:04:00 Test Item Value Reference Range Interpretation Comments Potassium Lvl (test code = Potassium 4.4 3.5-5.1 Lvl) [facility] HospitalHcxyjquBIDHFWVTXXHI5187-37-39 10:04:00 Test Item Value Reference Range Interpretation Comments AGAP (test code = AGAP) 11.4 10.0-20.0 [facility] HospitalQkkhugbGRXMJLHIEBQM4464-78-78 10:04:00 Test Item Value Reference Range Interpretation Comments CO2 (test code = CO2) 25 24-32 [facility] HospitalIgpllylCKEVWLWMIKBP5931-94-41 10:04:00 Test Item Value Reference Range Interpretation Comments Chloride Lvl (test code = Chloride Lvl) 105 95-109 [facility] HospitalLrhhkuaQZNCPIVXCCXU4248-60-55 10:04:00 Test Item Value Reference Range Interpretation Comments Calcium Lvl (test code = Calcium Lvl) 8.1 8.5-10.5 [facility] HospitalVolegdjSNIDXTHQSDSG1785-43-59 10:04:00 Test Item Value Reference Range Interpretation Comments Glucose Lvl (test code = Glucose Lvl) 366 70-99 [facility] HospitalMsnaexaXAZXCLINUDLL2335-04-54 10:04:00 Test Item Value Reference Range Interpretation Comments Creatinine Lvl (test code = Creatinine 0.69 0.50-1.40 Lvl) [facility] HospitalYspjcruUXHSABNWSXDZ3886-82-47 10:04:00 Test Item Value Reference Range Interpretation Comments BUN (test code = BUN) 6 7-22 [facility] HospitalIhtrtylKDMDTFLZQBUZ9363-71-32 10:04:00 Test Item Value Reference Range Interpretation Comments Sodium Lvl (test code = Sodium Lvl) 137 135-145 [facility] HospitalQbnqvfsAXNKYOMPQSPE6389-12-61 10:04:00 Test Item Value Reference Range Interpretation Comments ALT (test code = ALT) 27 See_Comment [Auto mated message] The system which ge nerated this result transmit owen reference range : <=65. The reference range was not used to interpr et this result as fredi l/abnormal. [facility] HospitalUaerehdOYYYUCSWGARY0668-45-89 10:04:00 Test Item Value Reference Range Interpretation Comments Bili Total (test code = Bili Total) 0.6 0.2-1.3 [facility] HospitalHvhkhooIOSMEXBDFZUU1636-38-47 10:04:00 Test Item Value Reference Range Interpretation Comments AST (test code = AST) 36 See_Comment [Auto mated message] The system which ge nerated this result transmit owen reference range : <=37. The reference range was not used to interpr et this result as fredi l/abnormal. [facility] HospitalIyzuiahRXBYJGSBYIRS8388-97-49 10:04:00 Test Item Value Reference Range Interpretation Comments Alk Phos (test code = Alk Phos) 81 39-136 [facility] HospitalPbitapmUKGCKXOHMFIU4971-04-87 10:04:00 Test Item Value Reference Range Interpretation Comments Globulin (test code = Globulin) 2.9 2.0-4.0 [facility] HospitalHatbvnfWTSCRZWQIDBP1514-26-15 10:04:00 Test Item Value Reference Range Interpretation Comments A/G Ratio (test code = A/G Ratio) 0.9 0.7-1.6 [facility] HospitalHhxschhEDAEIRLNMYTB1474-95-31 10:04:00 Test Item Value Reference Range Interpretation Comments B/C Ratio (test code = B/C Ratio) 9 6-25 [facility] HospitalRtggurwEIYWHVVHQYWW7699-48-45 10:04:00 Test Item Value Reference Range Interpretation Comments Total Protein (test code = Total 5.6 6.4-8.4 Protein) [facility] HospitalHzolrujCXUUTRCILCDU6977-27-60 10:04:00 Test Item Value Reference Range Interpretation Comments Albumin Lvl (test code = Albumin Lvl) 2.7 3.5-5.0 [facility] HospitalOsnkwegVNXUDROJTPCT5169-83-02 10:04:00 Test Item Value Reference Range Interpretation Comments eGFR (test code = eGFR) 122 [facility]GeuzmaiYNNYYROMUI7873-70-12 10:04:00 Test Item Value Reference Range Interpretation Comments Eosinophils # (test code 0.3 See_Comment [A utomated message] The = Eosinophils #) system whic h generated this result tra nsmitted reference range : <=0.5. The reference r jase was not used to int erpret this result as normal/abnormal . [facility] HospitalYcjxjhkPEIACHFRTC2841-06-66 10:04:00 Test Item Value Reference Range Interpretation Comments Segs (test code = Segs) 48.6 45.0-75.0 [facility] HospitalWvpmdsmWTYDFHNCUI6296-92-41 10:04:00 Test Item Value Reference Range Interpretation Comments Lymphocytes (test code = Lymphocytes) 39.1 20.0-40.0 [facility] HospitalByngrxqULQSHLWBVO0447-37-96 10:04:00 Test Item Value Reference Range Interpretation Comments Lymphocytes # (test code = Lymphocytes 2.4 1.0-5.5 #) [facility] HospitalZaodsxgTOCJKKIDJE1496-32-68 10:04:00 Test Item Value Reference Range Interpretation Comments Monocytes # (test code 0.4 See_Comment [Aut omated message] The = Monocytes #) system which generated this result tra nsmitted reference range : <=0.8. The reference r jase was not used to int erpret this result as normal/abnormal . [facility] HospitalUkmabejWCWPNEDXUF3054-76-59 10:04:00 Test Item Value Reference Range Interpretation Comments Segs-Bands # (test code = Segs-Bands #) 3.0 1.5-8.1 [facility] HospitalXyzitrxKVPUAIIVNV7313-93-73 10:04:00 Test Item Value Reference Range Interpretation Comments Basophils (test code = 0.7 See_Comment [Aut omated message] The Basophils) system which ge nerated this result tra nsmitted reference range : <=1.0. The reference r jase was not used to int erpret this result as normal/abnormal . [facility] HospitalEwjbcokZSQVHGJHAP4209-32-28 10:04:00 Test Item Value Reference Range Interpretation Comments Eosinophils (test code = 5.0 See_Comment [A utomated message] The Eosinophils) system which ge nerated this result tra nsmitted reference range : <=4.0. The reference r jase was not used to int erpret this result as normal/abnormal . [facility] HospitalPwdqwjfDKCLJXMGPW5481-19-17 10:04:00 Test Item Value Reference Range Interpretation Comments Monocytes (test code = Monocytes) 6.6 2.0-12.0 [facility] HospitalOabbsohBWCQTUDJRE1795-54-70 10:04:00 Test Item Value Reference Range Interpretation Comments Hgb (test code = Hgb) 11.5 12.0-16.0 [facility] HospitalOyyttsdJQHDIJXHJG1800-86-97 10:04:00 Test Item Value Reference Range Interpretation Comments RBC (test code = RBC) 3.55 4.20-5.40 [facility] HospitalYpmdmljDTHDYAWZYF7696-51-08 10:04:00 Test Item Value Reference Range Interpretation Comments WBC (test code = WBC) 6.2 3.7-10.4 [facility] HospitalKtcuegxAMVMJFUNPV9854-24-62 10:04:00 Test Item Value Reference Range Interpretation Comments Platelet (test code = Platelet) 238 133-450 [facility] HospitalXpyhorfRVBYTXIPKS2908-05-56 10:04:00 Test Item Value Reference Range Interpretation Comments MPV (test code = MPV) 8.1 7.4-10.4 [facility] HospitalBhzmjypSODVZQNLWE7644-81-89 10:04:00 Test Item Value Reference Range Interpretation Comments RDW (test code = RDW) 12.5 11.5-14.5 [facility] HospitalMbctvegVCBNMHBLPI0393-30-28 10:04:00 Test Item Value Reference Range Interpretation Comments MCHC (test code = MCHC) 33.3 32.0-36.0 [facility] HospitalMjsebyrXQIISLWZCE4112-72-74 10:04:00 Test Item Value Reference Range Interpretation Comments MCH (test code = MCH) 32.5 pg 27.0-31.0 [facility] HospitalKpejvpzHROIHKHTND1593-00-01 10:04:00 Test Item Value Reference Range Interpretation Comments Hct (test code = Hct) 34.6 36.0-48.0 [facility] HospitalWfzyuacFEUBDBVSLP8330-98-40 10:04:00 Test Item Value Reference Range Interpretation Comments MCV (test code = MCV) 97.6 80.0-98.0 [facility] HospitalImsykonOOOQCUHCHYAD9966-65-31 10:04:00 Test Item Value Reference Range Interpretation Comments Potassium Lvl (test code = Potassium 4.4 3.5-5.1 Lvl) [facility] HospitalWzsjxsuGLHCUNKTJGXS9629-21-32 10:04:00 Test Item Value Reference Range Interpretation Comments AGAP (test code = AGAP) 11.4 10.0-20.0 [facility] HospitalNyukhowYUDPMUZARTGT7496-65-08 10:04:00 Test Item Value Reference Range Interpretation Comments CO2 (test code = CO2) 25 24-32 [facility] HospitalRnuniwnFVYBPACGTXFB6620-44-21 10:04:00 Test Item Value Reference Range Interpretation Comments Chloride Lvl (test code = Chloride Lvl) 105 95-109 [facility] HospitalLdfyofnHUTNWVPYQKYM7580-20-34 10:04:00 Test Item Value Reference Range Interpretation Comments Calcium Lvl (test code = Calcium Lvl) 8.1 8.5-10.5 [facility] HospitalSsesdbxKSWGDWXTGCZV6179-37-78 10:04:00 Test Item Value Reference Range Interpretation Comments Glucose Lvl (test code = Glucose Lvl) 366 70-99 [facility] HospitalLmmhdoeQSAMXRXEOYQW9519-36-46 10:04:00 Test Item Value Reference Range Interpretation Comments Creatinine Lvl (test code = Creatinine 0.69 0.50-1.40 Lvl) [facility] HospitalJjzpgfhXUXIBWIGKJZE9855-16-65 10:04:00 Test Item Value Reference Range Interpretation Comments BUN (test code = BUN) 6 7-22 [facility] HospitalBnkjyfmAODVTWWFICVJ2365-50-10 10:04:00 Test Item Value Reference Range Interpretation Comments Sodium Lvl (test code = Sodium Lvl) 137 135-145 [facility] HospitalOabaawwMJPJCPXHUXHE7529-40-99 10:04:00 Test Item Value Reference Range Interpretation Comments ALT (test code = ALT) 27 See_Comment [Auto mated message] The system which ge nerated this result transmit owen reference range : <=65. The reference range was not used to interpr et this result as fredi l/abnormal. [facility] HospitalHidflmsTDOIEGKPBPFE2331-80-22 10:04:00 Test Item Value Reference Range Interpretation Comments Bili Total (test code = Bili Total) 0.6 0.2-1.3 [facility] HospitalSzhpllfSDBRTOXRZWLI6267-92-91 10:04:00 Test Item Value Reference Range Interpretation Comments AST (test code = AST) 36 See_Comment [Auto mated message] The system which ge nerated this result transmit owen reference range : <=37. The reference range was not used to interpr et this result as fredi l/abnormal. [facility] HospitalIttriipMCSYMHAJDAIT5782-20-37 10:04:00 Test Item Value Reference Range Interpretation Comments Alk Phos (test code = Alk Phos) 81 39-136 [facility] HospitalHcwgvvhOWRLPAHYKYXL9530-94-88 10:04:00 Test Item Value Reference Range Interpretation Comments Globulin (test code = Globulin) 2.9 2.0-4.0 [facility] HospitalQiccfqhWPJDAZLHQAVW6697-25-10 10:04:00 Test Item Value Reference Range Interpretation Comments A/G Ratio (test code = A/G Ratio) 0.9 0.7-1.6 [facility] HospitalYgeexaeYEGRQCYCHWBA8112-28-03 10:04:00 Test Item Value Reference Range Interpretation Comments B/C Ratio (test code = B/C Ratio) 9 6-25 [facility] HospitalRczpjemDFGUAYKOEDWS6557-81-17 10:04:00 Test Item Value Reference Range Interpretation Comments Total Protein (test code = Total 5.6 6.4-8.4 Protein) [facility] HospitalSkaaeveOLQMZRXXXOGC7134-08-63 10:04:00 Test Item Value Reference Range Interpretation Comments Albumin Lvl (test code = Albumin Lvl) 2.7 3.5-5.0 [facility] HospitalYykwuesZOZPNMRAURVE7524-91-18 10:04:00 Test Item Value Reference Range Interpretation Comments eGFR (test code = eGFR) 122 [facility] HospitalTawqheiPSYYTDROEC2036-56-92 10:04:00 Test Item Value Reference Range Interpretation Comments Eosinophils # (test code 0.3 See_Comment [A utomated message] The = Eosinophils #) system whic h generated this result tra nsmitted reference range : <=0.5. The reference r jase was not used to int erpret this result as normal/abnormal . [facility] HospitalCgdampnBDUQHNACNR5494-23-49 10:04:00 Test Item Value Reference Range Interpretation Comments Segs (test code = Segs) 48.6 45.0-75.0 [facility] HospitalAwejzsuDUZWLMDUJH8517-64-74 10:04:00 Test Item Value Reference Range Interpretation Comments Lymphocytes (test code = Lymphocytes) 39.1 20.0-40.0 [facility] HospitalQoioxroEAVWGAIFLJ9615-40-62 10:04:00 Test Item Value Reference Range Interpretation Comments Lymphocytes # (test code = Lymphocytes 2.4 1.0-5.5 #) [facility] HospitalTwpvuqgKJAYEILAPA9698-82-22 10:04:00 Test Item Value Reference Range Interpretation Comments Monocytes # (test code 0.4 See_Comment [Aut omated message] The = Monocytes #) system which generated this result tra nsmitted reference range : <=0.8. The reference r jase was not used to int erpret this result as normal/abnormal . [facility] HospitalZosophkCIKWEKGFET8066-72-48 10:04:00 Test Item Value Reference Range Interpretation Comments Segs-Bands # (test code = Segs-Bands #) 3.0 1.5-8.1 [facility] HospitalIfvazfcIXMSAWONMQ4866-80-28 10:04:00 Test Item Value Reference Range Interpretation Comments Basophils (test code = 0.7 See_Comment [Aut omated message] The Basophils) system which ge nerated this result tra nsmitted reference range : <=1.0. The reference r jase was not used to int erpret this result as normal/abnormal . [facility] HospitalFcyhgmpJXRQWPBIFU3346-98-64 10:04:00 Test Item Value Reference Range Interpretation Comments Eosinophils (test code = 5.0 See_Comment [A utomated message] The Eosinophils) system which ge nerated this result tra nsmitted reference range : <=4.0. The reference r jase was not used to int erpret this result as normal/abnormal . [facility] HospitalGmcyzeyNCVICGBCEA4761-13-23 10:04:00 Test Item Value Reference Range Interpretation Comments Monocytes (test code = Monocytes) 6.6 2.0-12.0 [facility] HospitalCbkgezkKGADWDPEJP2207-22-24 10:04:00 Test Item Value Reference Range Interpretation Comments Hgb (test code = Hgb) 11.5 12.0-16.0 [facility] HospitalYamqwnaTUFUWAAYTA4616-17-06 10:04:00 Test Item Value Reference Range Interpretation Comments RBC (test code = RBC) 3.55 4.20-5.40 [facility] HospitalAxdugpwWEMWBJQPGB7518-99-60 10:04:00 Test Item Value Reference Range Interpretation Comments WBC (test code = WBC) 6.2 3.7-10.4 [facility] HospitalDzwqdqqDQMEUOLDNN0159-97-61 10:04:00 Test Item Value Reference Range Interpretation Comments Platelet (test code = Platelet) 238 133-450 [facility] HospitalZxjygzxWZJRFVGLQP8204-21-10 10:04:00 Test Item Value Reference Range Interpretation Comments MPV (test code = MPV) 8.1 7.4-10.4 [facility] HospitalHmwkhmtBLWPMAZNYG3787-90-66 10:04:00 Test Item Value Reference Range Interpretation Comments RDW (test code = RDW) 12.5 11.5-14.5 [facility] HospitalHpxindbRCRIVPZRWS7088-96-24 10:04:00 Test Item Value Reference Range Interpretation Comments MCHC (test code = MCHC) 33.3 32.0-36.0 [facility] HospitalAlvjxzoHQUWTLWREE0516-66-76 10:04:00 Test Item Value Reference Range Interpretation Comments MCH (test code = MCH) 32.5 pg 27.0-31.0 [facility] HospitalCehsdgpCDLQLQEUGK6677-81-52 10:04:00 Test Item Value Reference Range Interpretation Comments Hct (test code = Hct) 34.6 36.0-48.0 [facility] HospitalDwcrigrEBNCXZMQFB8087-43-40 10:04:00 Test Item Value Reference Range Interpretation Comments MCV (test code = MCV) 97.6 80.0-98.0 [facility] HospitalCijplenWWIYUDMMQYHV8697-91-33 10:04:00 Test Item Value Reference Range Interpretation Comments Potassium Lvl (test code = Potassium 4.4 3.5-5.1 Lvl) [facility] HospitalDyxunhyONYZAWEPXEUV1063-06-95 10:04:00 Test Item Value Reference Range Interpretation Comments AGAP (test code = AGAP) 11.4 10.0-20.0 [facility] HospitalPfjpuygBCLNODBHUBKQ2555-79-16 10:04:00 Test Item Value Reference Range Interpretation Comments CO2 (test code = CO2) 25 24-32 [facility] [facility]BhlgwcgKWTUVQOOPJIF5044-69-80 10:04:00 Test Item Value Reference Range Interpretation Comments Chloride Lvl (test code = Chloride Lvl) 105 95-109 [facility]MkqvqdgAPVOXYPJBWBP7729-83-40 10:04:00 Test Item Value Reference Range Interpretation Comments Calcium Lvl (test code = Calcium Lvl) 8.1 8.5-10.5 [facility] HospitalOyoegpzBCKIBWHFSYED6702-62-62 10:04:00 Test Item Value Reference Range Interpretation Comments Glucose Lvl (test code = Glucose Lvl) 366 70-99 [facility] HospitalFblwodiCJLLMJIKEDPX0914-57-86 10:04:00 Test Item Value Reference Range Interpretation Comments Creatinine Lvl (test code = Creatinine 0.69 0.50-1.40 Lvl) [facility] HospitalOukyoifGHKAPQVTTKKC2921-75-50 10:04:00 Test Item Value Reference Range Interpretation Comments BUN (test code = BUN) 6 7-22 [facility] HospitalBhbitpcNHJZQEWTAOHP4483-51-62 10:04:00 Test Item Value Reference Range Interpretation Comments Sodium Lvl (test code = Sodium Lvl) 137 135-145 [facility] HospitalLxikydtKDHTNEFGUHJQ9056-10-51 10:04:00 Test Item Value Reference Range Interpretation Comments ALT (test code = ALT) 27 See_Comment [Auto mated message] The system which ge nerated this result transmit owen reference range : <=65. The reference range was not used to interpr et this result as fredi l/abnormal. [facility] HospitalUknnufaUWQRMEGQGQJV1273-67-89 10:04:00 Test Item Value Reference Range Interpretation Comments Bili Total (test code = Bili Total) 0.6 0.2-1.3 [facility] HospitalCrkdssxJYZADVZAZLJP5504-93-53 10:04:00 Test Item Value Reference Range Interpretation Comments AST (test code = AST) 36 See_Comment [Auto mated message] The system which ge nerated this result transmit owen reference range : <=37. The reference range was not used to interpr et this result as fredi l/abnormal. [facility] HospitalMvdomkiNGAFSDGVBQOH9105-78-92 10:04:00 Test Item Value Reference Range Interpretation Comments Alk Phos (test code = Alk Phos) 81 39-136 [facility] HospitalGtedaslNCENNFDQTRLE8828-74-75 10:04:00 Test Item Value Reference Range Interpretation Comments Globulin (test code = Globulin) 2.9 2.0-4.0 [facility] HospitalDdpodvdDPXNKCBFVZLK8334-64-85 10:04:00 Test Item Value Reference Range Interpretation Comments A/G Ratio (test code = A/G Ratio) 0.9 0.7-1.6 [facility] HospitalYqkxdumZAWYCYSHNDXI9989-27-89 10:04:00 Test Item Value Reference Range Interpretation Comments B/C Ratio (test code = B/C Ratio) 9 6-25 [facility] HospitalInedzmgSTWWJINMPSZS7474-11-53 10:04:00 Test Item Value Reference Range Interpretation Comments Total Protein (test code = Total 5.6 6.4-8.4 Protein) [facility] HospitalBbppltnSXRVLHGEZVUO0420-73-00 10:04:00 Test Item Value Reference Range Interpretation Comments Albumin Lvl (test code = Albumin Lvl) 2.7 3.5-5.0 [facility] HospitalOuswcirEBYSDKSCTAWR8209-76-68 10:04:00 Test Item Value Reference Range Interpretation Comments eGFR (test code = eGFR) 122 [facility] HospitalYiqpluzRVSSFZMJHR1164-95-31 10:04:00 Test Item Value Reference Range Interpretation Comments Eosinophils # (test code 0.3 See_Comment [A utomated message] The = Eosinophils #) system whic h generated this result tra nsmitted reference range : <=0.5. The reference r jase was not used to int erpret this result as normal/abnormal . [facility] HospitalKcvfqktVRWHDNHXNL5827-47-19 10:04:00 Test Item Value Reference Range Interpretation Comments Segs (test code = Segs) 48.6 45.0-75.0 [facility] HospitalDhxrnnyHODZEIIJYD7538-17-98 10:04:00 Test Item Value Reference Range Interpretation Comments Lymphocytes (test code = Lymphocytes) 39.1 20.0-40.0 [facility] HospitalQzvptlkSZPGIZZMZX3986-27-48 10:04:00 Test Item Value Reference Range Interpretation Comments Lymphocytes # (test code = Lymphocytes 2.4 1.0-5.5 #) [facility] HospitalJeqxlbvYQBPWBYTVD1593-72-97 10:04:00 Test Item Value Reference Range Interpretation Comments Monocytes # (test code 0.4 See_Comment [Aut omated message] The = Monocytes #) system which generated this result tra nsmitted reference range : <=0.8. The reference r jase was not used to int erpret this result as normal/abnormal . [facility] HospitalMoxmhgwKCGALDVBTS4381-23-01 10:04:00 Test Item Value Reference Range Interpretation Comments Segs-Bands # (test code = Segs-Bands #) 3.0 1.5-8.1 [facility] HospitalCsjnmdnNDCGDEJAJW4392-13-91 10:04:00 Test Item Value Reference Range Interpretation Comments Basophils (test code = 0.7 See_Comment [Aut omated message] The Basophils) system which ge nerated this result tra nsmitted reference range : <=1.0. The reference r jase was not used to int erpret this result as normal/abnormal . [facility] HospitalThlwnudLBVFDUVAOO3541-19-55 10:04:00 Test Item Value Reference Range Interpretation Comments Eosinophils (test code = 5.0 See_Comment [A utomated message] The Eosinophils) system which ge nerated this result tra nsmitted reference range : <=4.0. The reference r jase was not used to int erpret this result as normal/abnormal . [facility] HospitalOdziodxPRSSZVHOEM9076-12-71 10:04:00 Test Item Value Reference Range Interpretation Comments Monocytes (test code = Monocytes) 6.6 2.0-12.0 [facility] HospitalJfiopiuAXMNXCCXXX9360-80-17 10:04:00 Test Item Value Reference Range Interpretation Comments Hgb (test code = Hgb) 11.5 12.0-16.0 [facility] HospitalSjwuxsyRKBVSWIQWX9603-81-76 10:04:00 Test Item Value Reference Range Interpretation Comments RBC (test code = RBC) 3.55 4.20-5.40 [facility] HospitalJbsbrtvJYRJVNGDPW6067-87-27 10:04:00 Test Item Value Reference Range Interpretation Comments WBC (test code = WBC) 6.2 3.7-10.4 [facility] HospitalIvmglvuBBTGEZDJXT1352-67-30 10:04:00 Test Item Value Reference Range Interpretation Comments Platelet (test code = Platelet) 238 133-450 [facility] HospitalArxssurESRDQHXLBC0037-76-52 10:04:00 Test Item Value Reference Range Interpretation Comments MPV (test code = MPV) 8.1 7.4-10.4 [facility] HospitalVlxqifiXCDTIWWHQD1468-80-43 10:04:00 Test Item Value Reference Range Interpretation Comments RDW (test code = RDW) 12.5 11.5-14.5 [facility] HospitalGgiidqnVGZTILSNRX2541-99-18 10:04:00 Test Item Value Reference Range Interpretation Comments MCHC (test code = MCHC) 33.3 32.0-36.0 [facility] HospitalCxyxarfFPMMGUJYET7444-61-63 10:04:00 Test Item Value Reference Range Interpretation Comments MCH (test code = MCH) 32.5 pg 27.0-31.0 [facility] HospitalLkiwdtmYQYZLLZFPE5911-73-39 10:04:00 Test Item Value Reference Range Interpretation Comments Hct (test code = Hct) 34.6 36.0-48.0 [facility] HospitalZvjhbagTZFSUEVGZU3930-71-64 10:04:00 Test Item Value Reference Range Interpretation Comments MCV (test code = MCV) 97.6 80.0-98.0 [facility]2015-12-20 10:14:00 Test Item Value Reference Range Interpretation Comments Magnesium Lvl (test code = Magnesium 1.8 1.8-2.4 Lvl) [facility]2015-12-20 10:14:00 Test Item Value Reference Range Interpretation Comments Phosphorus (test code = Phosphorus) 1.8 2.5-4.5 [facility] HospitalZohdkvhMFNQNIRQDABC7406-46-91 10:14:00 Test Item Value Reference Range Interpretation Comments Chloride Lvl (test code = Chloride Lvl) 113 95-109 [facility] HospitalZxgnerkOBSJFXSLDEMR7856-90-84 10:14:00 Test Item Value Reference Range Interpretation Comments eGFR (test code = eGFR) 112 [facility] HospitalBmjztdkSTGOZZOFOSNO8755-12-74 10:14:00 Test Item Value Reference Range Interpretation Comments Calcium Lvl (test code = Calcium Lvl) 8.0 8.5-10.5 [facility] HospitalUzbjkboPEZGTPDGOWVJ8367-59-13 10:14:00 Test Item Value Reference Range Interpretation Comments CO2 (test code = CO2) 17 24-32 [facility] HospitalWctchcpZROZULPBSRXG9814-12-59 10:14:00 Test Item Value Reference Range Interpretation Comments Glucose Lvl (test code = Glucose Lvl) 147 70-99 [facility] HospitalKlfexvlDPNMQAKDSVXT6789-13-04 10:14:00 Test Item Value Reference Range Interpretation Comments Sodium Lvl (test code = Sodium Lvl) 141 135-145 [facility] HospitalOgmxvjwQLDHDZGGNDOW4260-16-26 10:14:00 Test Item Value Reference Range Interpretation Comments BUN (test code = BUN) 2 7-22 [facility] HospitalDyixnswHIXEBOXMDDJO7659-54-52 10:14:00 Test Item Value Reference Range Interpretation Comments Creatinine Lvl (test code = Creatinine 0.75 0.50-1.40 Lvl) [facility] HospitalYjlszrnPSGWTZTKSMWR9712-06-71 10:14:00 Test Item Value Reference Range Interpretation Comments Potassium Lvl (test code = Potassium 3.7 3.5-5.1 Lvl) [facility] HospitalCezrojhBJHOHMLOVRRT5154-22-28 10:14:00 Test Item Value Reference Range Interpretation Comments AGAP (test code = AGAP) 14.7 10.0-20.0 [facility] HospitalCzvoitnEQVPYJUBID3581-32-00 10:14:00 Test Item Value Reference Range Interpretation Comments MPV (test code = MPV) 7.6 7.4-10.4 [facility] HospitalExwglmoZRTECCGWKQ8833-16-25 10:14:00 Test Item Value Reference Range Interpretation Comments Hct (test code = Hct) 34.4 36.0-48.0 [facility] HospitalJrzhqreIETYZPBGUL6071-74-07 10:14:00 Test Item Value Reference Range Interpretation Comments Hgb (test code = Hgb) 11.5 12.0-16.0 [facility] HospitalRuhdhacPAQBFSYWXA8539-22-57 10:14:00 Test Item Value Reference Range Interpretation Comments RBC (test code = RBC) 3.50 4.20-5.40 [facility] HospitalPrnlgsxZESRYGZYTP7978-00-65 10:14:00 Test Item Value Reference Range Interpretation Comments WBC (test code = WBC) 11.3 3.7-10.4 [facility] HospitalRbafbnjMPMXTEZRJL7771-49-62 10:14:00 Test Item Value Reference Range Interpretation Comments MCV (test code = MCV) 98.3 80.0-98.0 [facility] HospitalUshefxtBSJSXZMGRK1209-02-99 10:14:00 Test Item Value Reference Range Interpretation Comments RDW (test code = RDW) 12.4 11.5-14.5 [facility] HospitalDlgenprUGOHISIGEW6045-04-80 10:14:00 Test Item Value Reference Range Interpretation Comments MCH (test code = MCH) 32.8 pg 27.0-31.0 [facility] HospitalApihfviQRMJMQDRNN2569-80-54 10:14:00 Test Item Value Reference Range Interpretation Comments Platelet (test code = Platelet) 261 133-450 [facility] HospitalLkbxiyzOKQGXKXXBA6376-58-77 10:14:00 Test Item Value Reference Range Interpretation Comments MCHC (test code = MCHC) 33.3 32.0-36.0 [facility] HospitalFkjcmynTSLLUEHGKF9370-91-56 10:14:00 Test Item Value Reference Range Interpretation Comments RBC Morph (test code = Normal (05/06/15 4:14 RBC Morph) AM) [facility] HospitalObkmkfyKGBALFTUMX8774-29-80 10:14:00 Test Item Value Reference Range Interpretation Comments Atypical Lymphs (test code = Atypical 0.0 Lymphs) [facility] HospitalIzkkfodUYBVMRQGEP3724-82-37 10:14:00 Test Item Value Reference Range Interpretation Comments Plt Morph (test code = Normal (05/06/15 4:14 Plt Morph) AM) [facility] HospitalVklsrurZIUEQJAAHV4460-09-34 10:14:00 Test Item Value Reference Range Interpretation Comments Lymphocytes # (test code = Lymphocytes 4.3 1.0-5.5 #) [facility] HospitalCtdsoeaJTVPBIGTPC3882-45-89 10:14:00 Test Item Value Reference Range Interpretation Comments Segs-Bands # (test code = Segs-Bands #) 6.7 1.5-8.1 [facility] HospitalFjscwcuPOFRBRYNKH0632-68-61 10:14:00 Test Item Value Reference Range Interpretation Comments Lymphocytes (test code = Lymphocytes) 38.0 20.0-40.0 [facility] HospitalCjkdcsaTHDZECMSMZ1864-08-31 10:14:00 Test Item Value Reference Range Interpretation Comments Segs (test code = Segs) 59.0 45.0-75.0 [facility] HospitalMyvbcceZRZCNBYWRH4716-75-14 10:14:00 Test Item Value Reference Range Interpretation Comments Bands (test code = 0.0 See_Comment [Automat ed message] The Bands) system which ge nerated this result transmit owen reference range : <=11.0. The reference r jase was not used to interpr et this result as fredi l/abnormal. [facility] HospitalKuqljphYZODUJLSUG8505-93-76 10:14:00 Test Item Value Reference Range Interpretation Comments Monocytes # (test code 0.3 See_Comment [Aut omated message] The = Monocytes #) system which generated this result tra nsmitted reference range : <=0.8. The reference r jase was not used to int erpret this result as normal/abnormal . [facility] HospitalFvtgmquAGWXWCHXIN7200-17-66 10:14:00 Test Item Value Reference Range Interpretation Comments Monocytes (test code = Monocytes) 3.0 2.0-12.0 [facility]2015-12-20 10:14:00 Test Item Value Reference Range Interpretation Comments Magnesium Lvl (test code = Magnesium 1.8 1.8-2.4 Lvl) [facility]2015-12-20 10:14:00 Test Item Value Reference Range Interpretation Comments Phosphorus (test code = Phosphorus) 1.8 2.5-4.5 [facility] HospitalRqglfukLGYGWEFEJQJZ1797-99-80 10:14:00 Test Item Value Reference Range Interpretation Comments Chloride Lvl (test code = Chloride Lvl) 113 95-109 [facility] HospitalBbamkmtDLXWJQOVLMKK8399-16-24 10:14:00 Test Item Value Reference Range Interpretation Comments eGFR (test code = eGFR) 112 [place] 702315-12-20 10:14:00 Test Item Value Reference Range Interpretation Comments Calcium Lvl (test code = Calcium Lvl) 8.0 8.5-10.5 [facility] HospitalYxltztkEQLLGLUATEFH7597-52-17 10:14:00 Test Item Value Reference Range Interpretation Comments CO2 (test code = CO2) 17 24-32 [facility] HospitalMywucydJBBWNVUWXBUA6400-92-78 10:14:00 Test Item Value Reference Range Interpretation Comments Glucose Lvl (test code = Glucose Lvl) 147 70-99 [facility] HospitalPzinwuaDZNAKFCAJFGU9043-64-85 10:14:00 Test Item Value Reference Range Interpretation Comments Sodium Lvl (test code = Sodium Lvl) 141 135-145 [facility] HospitalHakixyiUNKHZNOCJJLD5017-26-19 10:14:00 Test Item Value Reference Range Interpretation Comments BUN (test code = BUN) 2 7-22 [facility] HospitalWgchpjnEMAADQVUVEAK5711-97-46 10:14:00 Test Item Value Reference Range Interpretation Comments Creatinine Lvl (test code = Creatinine 0.75 0.50-1.40 Lvl) [facility] HospitalCfozmiwROYAATCGKJGA0740-33-10 10:14:00 Test Item Value Reference Range Interpretation Comments Potassium Lvl (test code = Potassium 3.7 3.5-5.1 Lvl) [facility] HospitalVrxijjlWPORHOIIAKQT2715-65-06 10:14:00 Test Item Value Reference Range Interpretation Comments AGAP (test code = AGAP) 14.7 10.0-20.0 [facility] HospitalItonyzbPPMNNJTMBH6183-92-08 10:14:00 Test Item Value Reference Range Interpretation Comments MPV (test code = MPV) 7.6 7.4-10.4 [facility] HospitalOwtnwhcNJACFILCYN5508-97-91 10:14:00 Test Item Value Reference Range Interpretation Comments Hct (test code = Hct) 34.4 36.0-48.0 [facility] HospitalOgpgvozNOXCRVLQIM1760-85-14 10:14:00 Test Item Value Reference Range Interpretation Comments Hgb (test code = Hgb) 11.5 12.0-16.0 [facility] HospitalEbxjfkzNDGKBDNIKZ3253-80-50 10:14:00 Test Item Value Reference Range Interpretation Comments RBC (test code = RBC) 3.50 4.20-5.40 [facility] HospitalBcnbpauAGHHLHUAOQ0226-24-02 10:14:00 Test Item Value Reference Range Interpretation Comments WBC (test code = WBC) 11.3 3.7-10.4 [facility] HospitalElzoinfAKEJGHOBER8887-09-19 10:14:00 Test Item Value Reference Range Interpretation Comments MCV (test code = MCV) 98.3 80.0-98.0 [facility] HospitalSnrfwpxXSMOYDONIL2169-75-08 10:14:00 Test Item Value Reference Range Interpretation Comments RDW (test code = RDW) 12.4 11.5-14.5 [facility] HospitalKvrbpcpXNQRYWWCHQ4560-49-47 10:14:00 Test Item Value Reference Range Interpretation Comments MCH (test code = MCH) 32.8 pg 27.0-31.0 [facility] HospitalPadgluvBNDXEPVXTD9747-20-67 10:14:00 Test Item Value Reference Range Interpretation Comments Platelet (test code = Platelet) 261 133-450 [facility] HospitalKhmfariTJAKRZPMLT3487-53-57 10:14:00 Test Item Value Reference Range Interpretation Comments MCHC (test code = MCHC) 33.3 32.0-36.0 [facility] HospitalYiuwcjwQTGDCRVUJL7411-63-60 10:14:00 Test Item Value Reference Range Interpretation Comments RBC Morph (test code = Normal (05/06/15 4:14 RBC Morph) AM) [facility] HospitalJnxqvrxFXRRJQIWXJ7846-39-78 10:14:00 Test Item Value Reference Range Interpretation Comments Atypical Lymphs (test code = Atypical 0.0 Lymphs) [facility] HospitalGpmdzruGYLWBRTHKV3312-03-67 10:14:00 Test Item Value Reference Range Interpretation Comments Plt Morph (test code = Normal (05/06/15 4:14 Plt Morph) AM) [facility] HospitalFlebizyAMHWOTRBMK0634-89-24 10:14:00 Test Item Value Reference Range Interpretation Comments Lymphocytes # (test code = Lymphocytes 4.3 1.0-5.5 #) [facility] HospitalIumozgnMNQYUKOAZO0173-57-61 10:14:00 Test Item Value Reference Range Interpretation Comments Segs-Bands # (test code = Segs-Bands #) 6.7 1.5-8.1 [facility] HospitalMncwpjpGDDGVSLRQQ4325-37-10 10:14:00 Test Item Value Reference Range Interpretation Comments Lymphocytes (test code = Lymphocytes) 38.0 20.0-40.0 [facility] HospitalZxcgbtwXZDCTRUOHI0158-91-42 10:14:00 Test Item Value Reference Range Interpretation Comments Segs (test code = Segs) 59.0 45.0-75.0 [facility] HospitalQvcpfhePMQJTEZTEL1195-80-34 10:14:00 Test Item Value Reference Range Interpretation Comments Bands (test code = 0.0 See_Comment [Automat ed message] The Bands) system which ge nerated this result transmit owen reference range : <=11.0. The reference r ajse was not used to interpr et this result as fredi l/abnormal. [facility] HospitalPpctuluQVOYYDXPRI2699-98-80 10:14:00 Test Item Value Reference Range Interpretation Comments Monocytes # (test code 0.3 See_Comment [Aut omated message] The = Monocytes #) system which generated this result tra nsmitted reference range : <=0.8. The reference r jase was not used to int erpret this result as normal/abnormal . [facility] HospitalRprheyjWQUGYZQBSS8063-99-32 10:14:00 Test Item Value Reference Range Interpretation Comments Monocytes (test code = Monocytes) 3.0 2.0-12.0 [facility] QXELN9331-40-16 10:14:00 Test Item Value Reference Range Interpretation Comments Magnesium Lvl (test code = Magnesium 1.8 1.8-2.4 Lvl) [facility] FURKG7163-51-45 10:14:00 Test Item Value Reference Range Interpretation Comments Phosphorus (test code = Phosphorus) 1.8 2.5-4.5 [facility] HospitalHuyyuceUBRGGEFBCQPY9506-40-82 10:14:00 Test Item Value Reference Range Interpretation Comments Chloride Lvl (test code = Chloride Lvl) 113 95-109 [facility] HospitalZeyyljdOXKGXUESFVFW2232-65-07 10:14:00 Test Item Value Reference Range Interpretation Comments eGFR (test code = eGFR) 112 [facility] HospitalTtxwlgtYNYNTLAHWQLA3821-39-35 10:14:00 Test Item Value Reference Range Interpretation Comments Calcium Lvl (test code = Calcium Lvl) 8.0 8.5-10.5 [facility] HospitalEnojochXERYUEXWFJSN2680-81-38 10:14:00 Test Item Value Reference Range Interpretation Comments CO2 (test code = CO2) 17 24-32 [facility] HospitalIzrqlxfMHSTPLTEVCXC8036-35-32 10:14:00 Test Item Value Reference Range Interpretation Comments Glucose Lvl (test code = Glucose Lvl) 147 70-99 [facility] HospitalOpshjlaKKTMVTFUCWYM3848-38-05 10:14:00 Test Item Value Reference Range Interpretation Comments Sodium Lvl (test code = Sodium Lvl) 141 135-145 [facility] HospitalHogzkbuJLNVBFEDYXGF9957-18-18 10:14:00 Test Item Value Reference Range Interpretation Comments BUN (test code = BUN) 2 7-22 [facility] HospitalNsjxeucIHAXDYTEHFAG0918-30-16 10:14:00 Test Item Value Reference Range Interpretation Comments Creatinine Lvl (test code = Creatinine 0.75 0.50-1.40 Lvl) [facility] HospitalRjeabdoCRAKMFSQJOJZ8154-74-03 10:14:00 Test Item Value Reference Range Interpretation Comments Potassium Lvl (test code = Potassium 3.7 3.5-5.1 Lvl) [facility] HospitalIfimyzrNXCTWWREFTIY4705-33-69 10:14:00 Test Item Value Reference Range Interpretation Comments AGAP (test code = AGAP) 14.7 10.0-20.0 [facility] HospitalLiyaekiWMFXNXFAWQ0916-93-96 10:14:00 Test Item Value Reference Range Interpretation Comments MPV (test code = MPV) 7.6 7.4-10.4 [facility] HospitalPzzvvxtXVLQJBPFPM7678-18-06 10:14:00 Test Item Value Reference Range Interpretation Comments Hct (test code = Hct) 34.4 36.0-48.0 [facility] HospitalDcftumrVNNXQZZISZ7430-76-20 10:14:00 Test Item Value Reference Range Interpretation Comments Hgb (test code = Hgb) 11.5 12.0-16.0 [facility] HospitalYunqdzrXWWODTGMWC1348-07-90 10:14:00 Test Item Value Reference Range Interpretation Comments RBC (test code = RBC) 3.50 4.20-5.40 [facility] HospitalRtfcqbnCCGWIVKAEL0218-41-50 10:14:00 Test Item Value Reference Range Interpretation Comments WBC (test code = WBC) 11.3 3.7-10.4 [facility] HospitalHfyuamcZOLLRBBBGR0488-66-69 10:14:00 Test Item Value Reference Range Interpretation Comments MCV (test code = MCV) 98.3 80.0-98.0 [facility] HospitalJuulblnKRNPUETDAA1234-20-94 10:14:00 Test Item Value Reference Range Interpretation Comments RDW (test code = RDW) 12.4 11.5-14.5 [facility] HospitalWlrpnbpCXAHCIQGLF6123-71-66 10:14:00 Test Item Value Reference Range Interpretation Comments MCH (test code = MCH) 32.8 pg 27.0-31.0 [facility] HospitalDnzhjhcYULWSBOMJI1563-49-98 10:14:00 Test Item Value Reference Range Interpretation Comments Platelet (test code = Platelet) 261 133-450 [facility] HospitalWeelnxtROEHFTMPXR5364-68-23 10:14:00 Test Item Value Reference Range Interpretation Comments MCHC (test code = MCHC) 33.3 32.0-36.0 [facility] HospitalUqgduiyNQEREBGQOA1323-61-25 10:14:00 Test Item Value Reference Range Interpretation Comments RBC Morph (test code = Normal (05/06/15 4:14 RBC Morph) AM) [facility] HospitalYlyoahxNFSCMSIIKE2760-36-93 10:14:00 Test Item Value Reference Range Interpretation Comments Atypical Lymphs (test code = Atypical 0.0 Lymphs) [facility] HospitalIllrglzCOHKURWVZX1553-37-62 10:14:00 Test Item Value Reference Range Interpretation Comments Plt Morph (test code = Normal (05/06/15 4:14 Plt Morph) AM) [facility] HospitalIpuzrluERKXHWLFQK4803-23-51 10:14:00 Test Item Value Reference Range Interpretation Comments Lymphocytes # (test code = Lymphocytes 4.3 1.0-5.5 #) [facility] HospitalHdmyapzBHCSMSTLDC5455-83-58 10:14:00 Test Item Value Reference Range Interpretation Comments Segs-Bands # (test code = Segs-Bands #) 6.7 1.5-8.1 [facility] HospitalHnhmdbcEHUXFVTSVI6284-82-66 10:14:00 Test Item Value Reference Range Interpretation Comments Lymphocytes (test code = Lymphocytes) 38.0 20.0-40.0 [facility] HospitalQigiuuzLBVDULQUYF9797-00-32 10:14:00 Test Item Value Reference Range Interpretation Comments Segs (test code = Segs) 59.0 45.0-75.0 [facility] HospitalOtwnkhiMJUEICMWUS7917-32-10 10:14:00 Test Item Value Reference Range Interpretation Comments Bands (test code = 0.0 See_Comment [Automat ed message] The Bands) system which ge nerated this result transmit owen reference range : <=11.0. The reference r jase was not used to interpr et this result as fredi l/abnormal. [facility] HospitalQeflhkaUFBDGBFTNZ7555-67-74 10:14:00 Test Item Value Reference Range Interpretation Comments Monocytes # (test code 0.3 See_Comment [Aut omated message] The = Monocytes #) system which generated this result tra nsmitted reference range : <=0.8. The reference r jase was not used to int erpret this result as normal/abnormal . [facility]ox[facility]xIVUNELLQQG5240-22-72 10:14:00 Test Item Value Reference Range Interpretation Comments Monocytes (test code = Monocytes) 3.0 2.0-12.0 [facility] [id number] 10:01:00 Test Item Value Reference Range Interpretation Comments Hgb A1C (test code = Hgb A1C) 10.9 [facility] [id number] 10:01:00 Test Item Value Reference Range Interpretation Comments Hgb A1C (test code = Hgb A1C) 10.9 [facility] [id number] 10:01:00 Test Item Value Reference Range Interpretation Comments Hgb A1C (test code = Hgb A1C) 10.9 [facility]2015-12-20 04:36:00 Test Item Value Reference Range Interpretation Comments Magnesium Lvl (test code = Magnesium 2.2 1.8-2.4 Lvl) [facility]2015-12-20 04:36:00 Test Item Value Reference Range Interpretation Comments eGFR (test code = eGFR) 116 [facility]2015-12-20 04:36:00 Test Item Value Reference Range Interpretation Comments Creatinine Lvl (test code = Creatinine 0.73 0.50-1.40 Lvl) [facility]2015-12-20 04:36:00 Test Item Value Reference Range Interpretation Comments BUN (test code = BUN) 4 7-22 [facility]2015-12-20 04:36:00 Test Item Value Reference Range Interpretation Comments Glucose Lvl (test code = Glucose Lvl) 161 70-99 [facility]2015-12-20 04:36:00 Test Item Value Reference Range Interpretation Comments Calcium Lvl (test code = Calcium Lvl) 7.8 8.5-10.5 [facility]2015-12-20 04:36:00 Test Item Value Reference Range Interpretation Comments AGAP (test code = AGAP) 14.8 10.0-20.0 [facility]2015-12-20 04:36:00 Test Item Value Reference Range Interpretation Comments CO2 (test code = CO2) 17 [facility]2015-12-20 04:36:00 Test Item Value Reference Range Interpretation Comments Chloride Lvl (test code = Chloride Lvl) 112 95-109 [facility]2015-12-20 04:36:00 Test Item Value Reference Range Interpretation Comments Sodium Lvl (test code = Sodium Lvl) 140 135-145 [facility]2015-12-20 04:36:00 Test Item Value Reference Range Interpretation Comments Potassium Lvl (test code = Potassium 3.8 3.5-5.1 Lvl) [facility] [id number] 04:36:00 Test Item Value Reference Range Interpretation Comments Hgb A1C (test code = Hgb A1C) 10.9 [facility]2015-12-20 04:36:00 Test Item Value Reference Range Interpretation Comments Magnesium Lvl (test code = Magnesium 2.2 1.8-2.4 Lvl) [facility]2015-12-20 04:36:00 Test Item Value Reference Range Interpretation Comments eGFR (test code = eGFR) 116 [facility]2015-12-20 04:36:00 Test Item Value Reference Range Interpretation Comments Creatinine Lvl (test code = Creatinine 0.73 0.50-1.40 Lvl) [facility]2015-12-20 04:36:00 Test Item Value Reference Range Interpretation Comments BUN (test code = BUN) 4 7-22 [facility]2015-12-20 04:36:00 Test Item Value Reference Range Interpretation Comments Glucose Lvl (test code = Glucose Lvl) 161 70-99 [facility]2015-12-20 04:36:00 Test Item Value Reference Range Interpretation Comments Calcium Lvl (test code = Calcium Lvl) 7.8 8.5-10.5 [facility]2015-12-20 04:36:00 Test Item Value Reference Range Interpretation Comments AGAP (test code = AGAP) 14.8 10.0-20.0 [facility]2015-12-20 04:36:00 Test Item Value Reference Range Interpretation Comments CO2 (test code = CO2) 17 [facility]2015-12-20 04:36:00 Test Item Value Reference Range Interpretation Comments Chloride Lvl (test code = Chloride Lvl) 112 95-109 [facility]2015-12-20 04:36:00 Test Item Value Reference Range Interpretation Comments Sodium Lvl (test code = Sodium Lvl) 140 135-145 [facility]2015-12-20 04:36:00 Test Item Value Reference Range Interpretation Comments Potassium Lvl (test code = Potassium 3.8 3.5-5.1 Lvl) [facility] [id number] 04:36:00 Test Item Value Reference Range Interpretation Comments Hgb A1C (test code = Hgb A1C) 10.9 [facility]2015-12-20 04:36:00 Test Item Value Reference Range Interpretation Comments Magnesium Lvl (test code = Magnesium 2.2 1.8-2.4 Lvl) [facility]2015-12-20 04:36:00 Test Item Value Reference Range Interpretation Comments eGFR (test code = eGFR) 116 [facility]2015-12-20 04:36:00 Test Item Value Reference Range Interpretation Comments Creatinine Lvl (test code = Creatinine 0.73 0.50-1.40 Lvl) [facility]2015-12-20 04:36:00 Test Item Value Reference Range Interpretation Comments BUN (test code = BUN) 4 7-22 [facility]2015-12-20 04:36:00 Test Item Value Reference Range Interpretation Comments Glucose Lvl (test code = Glucose Lvl) 161 70-99 [facility]2015-12-20 04:36:00 Test Item Value Reference Range Interpretation Comments Calcium Lvl (test code = Calcium Lvl) 7.8 8.5-10.5 [facility]2015-12-20 04:36:00 Test Item Value Reference Range Interpretation Comments AGAP (test code = AGAP) 14.8 10.0-20.0 [facility]2015-12-20 04:36:00 Test Item Value Reference Range Interpretation Comments CO2 (test code = CO2) 17 - [facility]2015-12-20 04:36:00 Test Item Value Reference Range Interpretation Comments Chloride Lvl (test code = Chloride Lvl) 112 95-109 [facility]2015-12-20 04:36:00 Test Item Value Reference Range Interpretation Comments Sodium Lvl (test code = Sodium Lvl) 140 135-145 [facility]2015-12-20 04:36:00 Test Item Value Reference Range Interpretation Comments Potassium Lvl (test code = Potassium 3.8 3.5-5.1 Lvl) [facility] [id number] 04:36:00 Test Item Value Reference Range Interpretation Comments Hgb A1C (test code = Hgb A1C) 10.9 [facility]2015-12-20 00:54:00 Test Item Value Reference Range Interpretation Comments Ketone Quantitative (test code = Ketone 1.10 Quantitative) [facility]2015-12-20 00:54:00 Test Item Value Reference Range Interpretation Comments Magnesium Lvl (test code = Magnesium 2.5 1.8-2.4 Lvl) [facility]2015-12-20 00:54:00 Test Item Value Reference Range Interpretation Comments Phosphorus (test code = Phosphorus) 2.7 2.5-4.5 [facility]2015-12-20 00:54:00 Test Item Value Reference Range Interpretation Comments Ketone Quantitative (test code = Ketone 1.10 Quantitative) [facility]2015-12-20 00:54:00 Test Item Value Reference Range Interpretation Comments Magnesium Lvl (test code = Magnesium 2.5 1.8-2.4 Lvl) [facility]VidFall.comCRITICAL ACCESS HOSPITALEXGYI7267-08-11 00:54:00 Test Item Value Reference Range Interpretation Comments Phosphorus (test code = Phosphorus) 2.7 2.5-4.5 [facility]VidFall.comCRITICAL ACCESS HOSPITALDRNWX2501-41-72 00:54:00 Test Item Value Reference Range Interpretation Comments Ketone Quantitative (test code = Ketone 1.10 Quantitative) [facility] CenterEzakus [id number] 00:54:00 Test Item Value Reference Range Interpretation Comments Magnesium Lvl (test code = Magnesium 2.5 1.8-2.4 Lvl) [facility] CenterVidFall.comCRITICAL ACCESS [id number] 00:54:00 Test Item Value Reference Range Interpretation Comments Phosphorus (test code = Phosphorus) 2.7 2.5-4.5 [facility]2015-12-19 15:34:00 Test Item Value Reference Range Interpretation Comments Phosphorus (test code = Phosphorus) 1.8 2.5-4.5 [facility] CenterannCHEM [id number] 15:34:00 Test Item Value Reference Range Interpretation Comments Ketone Quantitative (test code = Ketone 3.83 Quantitative) [facility]annCHEM [id number] 15:34:00 Test Item Value Reference Range Interpretation Comments Phosphorus (test code = Phosphorus) 1.8 2.5-4.5 [facility]annCHEM [id number] 15:34:00 Test Item Value Reference Range Interpretation Comments Ketone Quantitative (test code = Ketone 3.83 Quantitative) [facility]annCHE[facility] [id number] 15:34:00 Test Item Value Reference Range Interpretation Comments Phosphorus (test code = Phosphorus) 1.8 2.5-4.5 [facility]annCHE[facility] [id number] 15:34:00 Test Item Value Reference Range Interpretation Comments Ketone Quantitative (test code = Ketone 3.83 Quantitative) [facility] CenterannCARDIAC [id number] 10:27:00 Test Item Value Reference Range Interpretation Comments BNP (test code = BNP) 148 [facility] [id number] 10:27:00 Test Item Value Reference Range Interpretation Comments A/G Ratio (test code = A/G Ratio) 0.9 0.7-1.6 [facility] [id number] 10:27:00 Test Item Value Reference Range Interpretation Comments Globulin (test code = Globulin) 4.4 2.0-4.0 [facility] CenterVidFall.comCRITICAL ACCESS HOSPITALNNNCQ2345-09-17 10:27:00 Test Item Value Reference Range Interpretation Comments AST (test code = AST) 25 See_Comment [Auto mated message] The system which ge nerated this result transmit owen reference range : <=37. The reference range was not used to interpr et this result as fredi l/abnormal. [facility] CenterE[facility]us [id number] 10:27:00 Test Item Value Reference Range Interpretation Comments ALT (test code = ALT) 27 See_Comment [Auto mated message] The system which ge nerated this result transmit owen reference range : <=65. The reference range was not used to interpr et this result as fredi l/abnormal. [facility] [id number] 10:27:00 Test Item Value Reference Range Interpretation Comments Total Protein (test code = Total 8.3 6.4-8.4 Protein) [facility]2015-12-19 10:27:00 Test Item Value Reference Range Interpretation Comments B/C Ratio (test code = B/C Ratio) 8 6-25 [facility]2015-12-19 10:27:00 Test Item Value Reference Range Interpretation Comments Albumin Lvl (test code = Albumin Lvl) 3.9 3.5-5.0 [facility]2015-12-19 10:27:00 Test Item Value Reference Range Interpretation Comments Bili Total (test code = Bili Total) 0.3 0.2-1.3 [facility]2015-12-19 10:27:00 Test Item Value Reference Range Interpretation Comments Alk Phos (test code = Alk Phos) 124 39-136 [facility] HospitalMgkxureKARKJKSTZW8428-08-84 10:27:00 Test Item Value Reference Range Interpretation Comments Eosinophils # (test code 0.3 See_Comment [A utomated message] The = Eosinophils #) system whic h generated this result tra nsmitted reference range : <=0.5. The reference r jase was not used to int erpret this result as normal/abnormal . [facility] HospitalFbjpkhgFHQFBKBBEG9665-67-36 10:27:00 Test Item Value Reference Range Interpretation Comments Basophils # (test code 0.3 See_Comment [Aut omated message] The = Basophils #) system which generated this result tra nsmitted reference range : <=0.2. The reference r jase was not used to int erpret this result as normal/abnormal . [facility] HospitalEiinhogPDXCFRGUFB1647-28-22 10:27:00 Test Item Value Reference Range Interpretation Comments Lymphocytes # (test code = Lymphocytes 2.8 1.0-5.5 #) [facility] HospitalUcqxylmDGMVRHOMVE9810-54-85 10:27:00 Test Item Value Reference Range Interpretation Comments Monocytes # (test code 2.4 See_Comment [Aut omated message] The = Monocytes #) system which generated this result tra nsmitted reference range : <=0.8. The reference r jase was not used to int erpret this result as normal/abnormal . [facility] HospitalLnonrocUFMKMWFKZD3327-08-75 10:27:00 Test Item Value Reference Range Interpretation Comments Anisocyte (test code = 1+ *ABN*(05/05/15 Anisocyte) 4:27 AM) [facility] HospitalSftcapaGUFAIGZSRT2101-07-52 10:27:00 Test Item Value Reference Range Interpretation Comments Macrocyte (test code = 3+ *ABN*(05/05/15 Macrocyte) 4:27 AM) [facility] HospitalRodwqnaZLEVVWMDDL2990-09-72 10:27:00 Test Item Value Reference Range Interpretation Comments Toxic Gran (test code Moderate *ABN*(05/05/15 = Toxic Gran) 4:27 AM) [facility] HospitalQtljsycTVQCXREBSV4402 10:27:00 Test Item Value Reference Range Interpretation Comments Basophils (test code = 1.0 See_Comment [Aut omated message] The Basophils) system which ge nerated this result tra nsmitted reference range : <=1.0. The reference r jase was not used to int erpret this result as normal/abnormal . [facility] HospitalGbptohpTDJQZVOPYS1768-46-21 10:27:00 Test Item Value Reference Range Interpretation Comments Plt Morph (test code = Normal (05/05/15 4:27 Plt Morph) AM) [facility] HospitalAtdbqlcRSVIMBRBSU7942-69-14 10:27:00 Test Item Value Reference Range Interpretation Comments Metamyelocytes (test code 4.0 See_Comment [ Automated message] = Metamyelocytes) The system which generated this result transmitted ref erence range: <=1.0. T he reference range was not used to int erpret this result as normal/abnormal . [facility] HospitalOsbgwkzUESSYDWWME1840-94-79 10:27:00 Test Item Value Reference Range Interpretation Comments Atypical Lymphs (test code = Atypical 0.0 Lymphs) [facility] HospitalHbbowdkXCVEBYWDNY4570-38-78 10:27:00 Test Item Value Reference Range Interpretation Comments Segs (test code = Segs) 66.0 45.0-75.0 [facility] HospitalZrgjkmpYSQKPESEKK4106-44-84 10:27:00 Test Item Value Reference Range Interpretation Comments Monocytes (test code = Monocytes) 8.0 2.0-12.0 [facility] HospitalHmnpnxkYTHZQLCMIH5520-53-88 10:27:00 Test Item Value Reference Range Interpretation Comments Eosinophils (test code = 1.0 See_Comment [A utomated message] The Eosinophils) system which ge nerated this result tra nsmitted reference range : <=4.0. The reference r jase was not used to int erpret this result as normal/abnormal . [facility] HospitalOvbsubmRZUVICLVJI5511-99-71 10:27:00 Test Item Value Reference Range Interpretation Comments Bands (test code = 11.0 See_Comment [Automat ed message] The Bands) system which ge nerated this result transmit owen reference range : <=11.0. The reference r jase was not used to interpr et this result as fredi l/abnormal. [facility] HospitalXchaipkGPIKWVTNWK9210-71-93 10:27:00 Test Item Value Reference Range Interpretation Comments Lymphocytes (test code = Lymphocytes) 9.0 20.0-40.0 [facility] HospitalRtcqqpjQFLGGJYPQT7776-36-92 10:27:00 Test Item Value Reference Range Interpretation Comments Segs-Bands # (test code = Segs-Bands #) 23.6 1.5-8.1 [facility] HospitalKjmmtjbCRDMWPUKKU4490-00-74 10:27:00 Test Item Value Reference Range Interpretation Comments PTT (test code = PTT) 17.5 s 22.9-35.8 [facility] HospitalUvubfflSAVGFXPGSF1803-79-78 10:27:00 Test Item Value Reference Range Interpretation Comments INR (test code = INR) 1.15 0.85-1.17 [facility] HospitalAhzzibfLVGPJTQHMA9424-95-85 10:27:00 Test Item Value Reference Range Interpretation Comments PT (test code = PT) 15.0 s 12.0-14.7 [facility] HospitalQwkvkgwINNPGVBORM2427-23-42 10:27:00 Test Item Value Reference Range Interpretation Comments Platelet (test code = Platelet) 414 133-450 [facility] HospitalFjmbcniDQXPTFBVVG2128-46-79 10:27:00 Test Item Value Reference Range Interpretation Comments MPV (test code = MPV) 8.4 7.4-10.4 [facility] HospitalZsehmleWQARFVHYGA9950-41-53 10:27:00 Test Item Value Reference Range Interpretation Comments MCV (test code = MCV) 110.0 80.0-98.0 [facility] HospitalZcrcrlbSNCAHAFTZQ6079-35-05 10:27:00 Test Item Value Reference Range Interpretation Comments MCH (test code = MCH) 32.3 pg 27.0-31.0 [facility] HospitalXsasgwwCXHFGOASMC7610-28-00 10:27:00 Test Item Value Reference Range Interpretation Comments MCHC (test code = MCHC) 29.4 32.0-36.0 [facility] HospitalKqpooehAABTRNFUBK6877-20-73 10:27:00 Test Item Value Reference Range Interpretation Comments RDW (test code = RDW) 14.2 11.5-14.5 [facility] HospitalJzjquaeDOKAZGTAWD3262-22-76 10:27:00 Test Item Value Reference Range Interpretation Comments RBC (test code = RBC) 4.68 4.20-5.40 [facility] HospitalNvuewyrZRRQXSDCDM4401-80-49 10:27:00 Test Item Value Reference Range Interpretation Comments Hgb (test code = Hgb) 15.1 12.0-16.0 [facility] HospitalFdlkovdGITVFVHCHP7407-34-88 10:27:00 Test Item Value Reference Range Interpretation Comments Hct (test code = Hct) 51.5 36.0-48.0 [facility] HospitalHymyekbEIGXFFYVUF5172-95-61 10:27:00 Test Item Value Reference Range Interpretation Comments WBC (test code = WBC) 30.6 3.7-10.4 [facility] COUGDNN3991-34-49 10:27:00 Test Item Value Reference Range Interpretation Comments BNP (test code = BNP) 148 [facility]2015-12-19 10:27:00 Test Item Value Reference Range Interpretation Comments A/G Ratio (test code = A/G Ratio) 0.9 0.7-1.6 [facility]2015-12-19 10:27:00 Test Item Value Reference Range Interpretation Comments Globulin (test code = Globulin) 4.4 2.0-4.0 [facility]2015-12-19 10:27:00 Test Item Value Reference Range Interpretation Comments AST (test code = AST) 25 See_Comment [Auto mated message] The system which ge nerated this result transmit owen reference range : <=37. The reference range was not used to interpr et this result as fredi l/abnormal. [facility]2015-12-19 10:27:00 Test Item Value Reference Range Interpretation Comments ALT (test code = ALT) 27 See_Comment [Auto mated message] The system which ge nerated this result transmit owen reference range : <=65. The reference range was not used to interpr et this result as fredi l/abnormal. [facility]2015-12-19 10:27:00 Test Item Value Reference Range Interpretation Comments Total Protein (test code = Total 8.3 6.4-8.4 Protein) [facility]2015-12-19 10:27:00 Test Item Value Reference Range Interpretation Comments B/C Ratio (test code = B/C Ratio) 8 6-25 [facility]2015-12-19 10:27:00 Test Item Value Reference Range Interpretation Comments Albumin Lvl (test code = Albumin Lvl) 3.9 3.5-5.0 [facility]2015-12-19 10:27:00 Test Item Value Reference Range Interpretation Comments Bili Total (test code = Bili Total) 0.3 0.2-1.3 [facility]2015-12-19 10:27:00 Test Item Value Reference Range Interpretation Comments Alk Phos (test code = Alk Phos) 124 39-136 [facility] HospitalAmtjhxdJQDJCLVOTL7364-54-16 10:27:00 Test Item Value Reference Range Interpretation Comments Eosinophils # (test code 0.3 See_Comment [A utomated message] The = Eosinophils #) system whic h generated this result tra nsmitted reference range : <=0.5. The reference r jase was not used to int erpret this result as normal/abnormal . [facility] HospitalYiczizgPZKTLBTDDD7015-46-72 10:27:00 Test Item Value Reference Range Interpretation Comments Basophils # (test code 0.3 See_Comment [Aut omated message] The = Basophils #) system which generated this result tra nsmitted reference range : <=0.2. The reference r jase was not used to int erpret this result as normal/abnormal . [facility] HospitalBhuoqiwRYSJVURNYV3190-47-21 10:27:00 Test Item Value Reference Range Interpretation Comments Lymphocytes # (test code = Lymphocytes 2.8 1.0-5.5 #) [facility] HospitalOfeciyhNGZWSIODYE6749-87-94 10:27:00 Test Item Value Reference Range Interpretation Comments Monocytes # (test code 2.4 See_Comment [Aut omated message] The = Monocytes #) system which generated this result tra nsmitted reference range : <=0.8. The reference r jase was not used to int erpret this result as normal/abnormal . [facility] HospitalWgacsatKECUUPSVRN8183-21-05 10:27:00 Test Item Value Reference Range Interpretation Comments Anisocyte (test code = 1+ *ABN*(05/05/15 Anisocyte) 4:27 AM) [facility] HospitalKienmopWNTDFPOMYF7325-61-88 10:27:00 Test Item Value Reference Range Interpretation Comments Macrocyte (test code = 3+ *ABN*(05/05/15 Macrocyte) 4:27 AM) [facility] HospitalHruezylXNTALHHEFC1736-87-81 10:27:00 Test Item Value Reference Range Interpretation Comments Toxic Gran (test code Moderate *ABN*(05/05/15 = Toxic Gran) 4:27 AM) [facility] HospitalKazbukkNVQVMGFDMY3905-20-47 10:27:00 Test Item Value Reference Range Interpretation Comments Basophils (test code = 1.0 See_Comment [Aut omated message] The Basophils) system which ge nerated this result tra nsmitted reference range : <=1.0. The reference r jase was not used to int erpret this result as normal/abnormal . [facility] HospitalKivmxfiOTIEOTOWXD2781-91-87 10:27:00 Test Item Value Reference Range Interpretation Comments Plt Morph (test code = Normal (05/05/15 4:27 Plt Morph) AM) [facility] HospitalLzwiqafBVNUDCKVHU5866-35-85 10:27:00 Test Item Value Reference Range Interpretation Comments Metamyelocytes (test code 4.0 See_Comment [ Automated message] = Metamyelocytes) The system which generated this result transmitted ref erence range: <=1.0. T he reference range was not used to int erpret this result as normal/abnormal . [facility] HospitalGzyighqKJZISRNWHA9362-36-95 10:27:00 Test Item Value Reference Range Interpretation Comments Atypical Lymphs (test code = Atypical 0.0 Lymphs) [facility] HospitalXqtdlafXZAQFGSJGD2857-00-07 10:27:00 Test Item Value Reference Range Interpretation Comments Segs (test code = Segs) 66.0 45.0-75.0 [facility] HospitalItjtqwtLWRFMGFLBG2401-88-85 10:27:00 Test Item Value Reference Range Interpretation Comments Monocytes (test code = Monocytes) 8.0 2.0-12.0 [facility] HospitalYszhrmeDDWNZDEYHP1047-31-18 10:27:00 Test Item Value Reference Range Interpretation Comments Eosinophils (test code = 1.0 See_Comment [A utomated message] The Eosinophils) system which ge nerated this result tra nsmitted reference range : <=4.0. The reference r jase was not used to int erpret this result as normal/abnormal . [facility] HospitalAtrfkmvFWORCEAALA0193-09-14 10:27:00 Test Item Value Reference Range Interpretation Comments Bands (test code = 11.0 See_Comment [Automat ed message] The Bands) system which ge nerated this result transmit owen reference range : <=11.0. The reference r jase was not used to interpr et this result as fredi l/abnormal. [facility] HospitalLpvchbpEEAXBPKUJI5356-75-53 10:27:00 Test Item Value Reference Range Interpretation Comments Lymphocytes (test code = Lymphocytes) 9.0 20.0-40.0 [facility] HospitalBpisufeSPZLMLONRN9034-56-26 10:27:00 Test Item Value Reference Range Interpretation Comments Segs-Bands # (test code = Segs-Bands #) 23.6 1.5-8.1 [facility] HospitalShgreokNHPRBFPOLK0325-63-70 10:27:00 Test Item Value Reference Range Interpretation Comments PTT (test code = PTT) 17.5 s 22.9-35.8 [facility] HospitalHxjcukcDFQMNQVBVQ9466-17-26 10:27:00 Test Item Value Reference Range Interpretation Comments INR (test code = INR) 1.15 0.85-1.17 [facility] HospitalHyiapoxTEXRVTESQK7015-17-57 10:27:00 Test Item Value Reference Range Interpretation Comments PT (test code = PT) 15.0 s 12.0-14.7 [facility] HospitalYumedfhLZJGHZATJT9336-56-67 10:27:00 Test Item Value Reference Range Interpretation Comments Platelet (test code = Platelet) 414 133-450 [facility] HospitalXjpelchZVLHWNLKJX7293-03-21 10:27:00 Test Item Value Reference Range Interpretation Comments MPV (test code = MPV) 8.4 7.4-10.4 [facility] HospitalUxdodvkIJZELTDEJK6346-18-71 10:27:00 Test Item Value Reference Range Interpretation Comments MCV (test code = MCV) 110.0 80.0-98.0 [facility] HospitalXuvqowrVQXPIEYYAV4766-17-04 10:27:00 Test Item Value Reference Range Interpretation Comments MCH (test code = MCH) 32.3 pg 27.0-31.0 [facility] HospitalFbkexvxEDATSUTUJO2298-91-50 10:27:00 Test Item Value Reference Range Interpretation Comments MCHC (test code = MCHC) 29.4 32.0-36.0 [facility]JgkdpbiDYEFGIYJUY1439-87-94 10:27:00 Test Item Value Reference Range Interpretation Comments RDW (test code = RDW) 14.2 11.5-14.5 [facility] HospitalMjbxyfnJZITEVHPSP5369-09-92 10:27:00 Test Item Value Reference Range Interpretation Comments RBC (test code = RBC) 4.68 4.20-5.40 [facility]JzwnpyuEKWLRTTWRN2638-49-45 10:27:00 Test Item Value Reference Range Interpretation Comments Hgb (test code = Hgb) 15.1 12.0-16.0 [facility] HospitalRbkgifgEWPDNAVBUS4734-92-94 10:27:00 Test Item Value Reference Range Interpretation Comments Hct (test code = Hct) 51.5 36.0-48.0 [facility]BefrjnoVONPUZJFQE6478-68-81 10:27:00 Test Item Value Reference Range Interpretation Comments WBC (test code = WBC) 30.6 3.7-10.4 [facility] HospitalCARDIAC DVXFOIP3544-66-05 10:27:00 Test Item Value Reference Range Interpretation Comments BNP (test code = BNP) 148 [facility] HospitalCHEM [id number] 10:27:00 Test Item Value Reference Range Interpretation Comments A/G Ratio (test code = A/G Ratio) 0.9 0.7-1.6 [facility] CMKCW2407-77-33 10:27:00 Test Item Value Reference Range Interpretation Comments Globulin (test code = Globulin) 4.4 2.0-4.0 [facility] AYRTJ3929-77-12 10:27:00 Test Item Value Reference Range Interpretation Comments AST (test code = AST) 25 See_Comment [Auto mated message] The system which ge nerated this result transmit owen reference range : <=37. The reference range was not used to interpr et this result as fredi l/abnormal. [facility] HospitalSoloLearn OHJLZ9981-70-03 10:27:00 Test Item Value Reference Range Interpretation Comments ALT (test code = ALT) 27 See_Comment [Auto mated message] The system which ge nerated this result transmit owen reference range : <=65. The reference range was not used to interpr et this result as fredi l/abnormal. [facility]2015-12-19 10:27:00 Test Item Value Reference Range Interpretation Comments Total Protein (test code = Total 8.3 6.4-8.4 Protein) [facility]2015-12-19 10:27:00 Test Item Value Reference Range Interpretation Comments B/C Ratio (test code = B/C Ratio) 8 6-25 [facility]2015-12-19 10:27:00 Test Item Value Reference Range Interpretation Comments Albumin Lvl (test code = Albumin Lvl) 3.9 3.5-5.0 [facility]2015-12-19 10:27:00 Test Item Value Reference Range Interpretation Comments Bili Total (test code = Bili Total) 0.3 0.2-1.3 [facility]2015-12-19 10:27:00 Test Item Value Reference Range Interpretation Comments Alk Phos (test code = Alk Phos) 124 39-136 [facility] HospitalCduvtmmRPROPZSLDC1196-96-03 10:27:00 Test Item Value Reference Range Interpretation Comments Eosinophils # (test code 0.3 See_Comment [A utomated message] The = Eosinophils #) system whic h generated this result tra nsmitted reference range : <=0.5. The reference r jase was not used to int erpret this result as normal/abnormal . [facility] HospitalQbanfnjAXMLQTTIYN8995-80-99 10:27:00 Test Item Value Reference Range Interpretation Comments Basophils # (test code 0.3 See_Comment [Aut omated message] The = Basophils #) system which generated this result tra nsmitted reference range : <=0.2. The reference r jase was not used to int erpret this result as normal/abnormal . [facility] HospitalHbqxvzySTEENJSSRO1773-45-70 10:27:00 Test Item Value Reference Range Interpretation Comments Lymphocytes # (test code = Lymphocytes 2.8 1.0-5.5 #) [facility] HospitalXqbxucmWQUASGRHXU7229-79-71 10:27:00 Test Item Value Reference Range Interpretation Comments Monocytes # (test code 2.4 See_Comment [Aut omated message] The = Monocytes #) system which generated this result tra nsmitted reference range : <=0.8. The reference r jase was not used to int erpret this result as normal/abnormal . [place] [address]-12-19 10:27:00 Test Item Value Reference Range Interpretation Comments Anisocyte (test code = 1+ *ABN*(05/05/15 Anisocyte) 4:27 AM) [facility] HospitalSkvlrdoFUSDGCIUWU8024-82-31 10:27:00 Test Item Value Reference Range Interpretation Comments Macrocyte (test code = 3+ *ABN*(05/05/15 Macrocyte) 4:27 AM) [facility] HospitalUxsrtvcCKQOWAHRAI8354-46-48 10:27:00 Test Item Value Reference Range Interpretation Comments Toxic Gran (test code Moderate *ABN*(05/05/15 = Toxic Gran) 4:27 AM) [facility] HospitalLqmjpxiXDTCKYOODR6015-96-68 10:27:00 Test Item Value Reference Range Interpretation Comments Basophils (test code = 1.0 See_Comment [Aut omated message] The Basophils) system which ge nerated this result tra nsmitted reference range : <=1.0. The reference r jase was not used to int erpret this result as normal/abnormal . [facility] HospitalGarvlxjSNBRDLLRZJ8743-25-26 10:27:00 Test Item Value Reference Range Interpretation Comments Plt Morph (test code = Normal (05/05/15 4:27 Plt Morph) AM) [facility] HospitalBrmmgqiMBOACVSFQQ5553-58-40 10:27:00 Test Item Value Reference Range Interpretation Comments Metamyelocytes (test code 4.0 See_Comment [ Automated message] = Metamyelocytes) The system which generated this result transmitted ref erence range: <=1.0. T he reference range was not used to int erpret this result as normal/abnormal . [facility] HospitalWfxylgpOHUYRUZYEV9381-67-16 10:27:00 Test Item Value Reference Range Interpretation Comments Atypical Lymphs (test code = Atypical 0.0 Lymphs) [facility] HospitalRcrwdesPNQVALPPUC1704-40-23 10:27:00 Test Item Value Reference Range Interpretation Comments Segs (test code = Segs) 66.0 45.0-75.0 [facility] HospitalHmgavzsHTTZNILYLE8141-94-91 10:27:00 Test Item Value Reference Range Interpretation Comments Monocytes (test code = Monocytes) 8.0 2.0-12.0 [facility] HospitalTyujcuzYNHTNQUEQV0930-12-49 10:27:00 Test Item Value Reference Range Interpretation Comments Eosinophils (test code = 1.0 See_Comment [A utomated message] The Eosinophils) system which ge nerated this result tra nsmitted reference range : <=4.0. The reference r jase was not used to int erpret this result as normal/abnormal . [facility] HospitalVibqpiwZNQNAKWHHM2285-28-65 10:27:00 Test Item Value Reference Range Interpretation Comments Bands (test code = 11.0 See_Comment [Automat ed message] The Bands) system which ge nerated this result transmit owen reference range : <=11.0. The reference r jase was not used to interpr et this result as fredi l/abnormal. [facility] HospitalIrnldkbMDVDGPCXMN2928-34-91 10:27:00 Test Item Value Reference Range Interpretation Comments Lymphocytes (test code = Lymphocytes) 9.0 20.0-40.0 [facility] HospitalQdjwbueJLNEVXTEHJ2471-79-39 10:27:00 Test Item Value Reference Range Interpretation Comments Segs-Bands # (test code = Segs-Bands #) 23.6 1.5-8.1 [facility] HospitalOswuslxFBMANLRKPR4683-37-85 10:27:00 Test Item Value Reference Range Interpretation Comments PTT (test code = PTT) 17.5 s 22.9-35.8 [facility] HospitalAdmcafwACFZRXDVWT7430-44-74 10:27:00 Test Item Value Reference Range Interpretation Comments INR (test code = INR) 1.15 0.85-1.17 [facility] HospitalKervdvlINBKIYWNQQ2626-08-17 10:27:00 Test Item Value Reference Range Interpretation Comments PT (test code = PT) 15.0 s 12.0-14.7 [facility] HospitalGdlxxmfMYJLFBHKMO6098-41-70 10:27:00 Test Item Value Reference Range Interpretation Comments Platelet (test code = Platelet) 414 133-450 [facility] HospitalIkmqnunKGXJBRLQZQ2448-63-16 10:27:00 Test Item Value Reference Range Interpretation Comments MPV (test code = MPV) 8.4 7.4-10.4 [facility] HospitalUpwxptsGSZCADWFLJ4639-11-96 10:27:00 Test Item Value Reference Range Interpretation Comments MCV (test code = MCV) 110.0 80.0-98.0 [facility] HospitalRxylaiiYZPDKJRGNX9661-99-92 10:27:00 Test Item Value Reference Range Interpretation Comments MCH (test code = MCH) 32.3 pg 27.0-31.0 [facility] HospitalPwirqfxNVOXGKNMZM4033-54-84 10:27:00 Test Item Value Reference Range Interpretation Comments MCHC (test code = MCHC) 29.4 32.0-36.0 [facility] HospitalPbrxpueZFIBYSOLTK7797-97-98 10:27:00 Test Item Value Reference Range Interpretation Comments RDW (test code = RDW) 14.2 11.5-14.5 [facility] HospitalBvyvuptGZFWPJSTVM9615-38-71 10:27:00 Test Item Value Reference Range Interpretation Comments RBC (test code = RBC) 4.68 4.20-5.40 [facility] HospitalDmfslayZULEWRURGZ4410-24-10 10:27:00 Test Item Value Reference Range Interpretation Comments Hgb (test code = Hgb) 15.1 12.0-16.0 [place] [address]-12-19 10:27:00 Test Item Value Reference Range Interpretation Comments Hct (test code = Hct) 51.5 36.0-48.0 [place] 864485-12-19 10:27:00 Test Item Value Reference Range Interpretation Comments WBC (test code = WBC) 30.6 3.7-10.4 [facility]2015-12-19 09:20:10 Test Item Value Reference Range Interpretation Comments Ketone Quantitative (test code = Ketone 10.22 Quantitative) [place] 413505-12-19 09:20:10 Test Item Value Reference Range Interpretation Comments Ketone Quantitative (test code = Ketone 10.22 Quantitative) [facility]2015-12-19 09:20:10 Test Item Value Reference Range Interpretation Comments Ketone Quantitative (test code = Ketone 10.22 Quantitative) [facility] HospitalScbmogtPLCQIFSHOD0596-56-79 07:38:00 Test Item Value Reference Range Interpretation Comments Anisocyte (test code = 1+ *ABN*(05/05/15 Anisocyte) 1:38 AM) [facility] HospitalJagzldeWEPQMQEFWL9451-90-13 07:38:00 Test Item Value Reference Range Interpretation Comments Plt Morph (test code = Normal (05/05/15 1:38 Plt Morph) AM) [facility] HospitalEglpbldQKVJRMHZPX5379-17-13 07:38:00 Test Item Value Reference Range Interpretation Comments Macrocyte (test code = 3+ *ABN*(05/05/15 Macrocyte) 1:38 AM) [facility] HospitalGggsnfbIAPGKWNEIJ9225-73-29 07:38:00 Test Item Value Reference Range Interpretation Comments Eosinophils (test code = 4.0 See_Comment [A utomated message] The Eosinophils) system which ge nerated this result tra nsmitted reference range : <=4.0. The reference r jase was not used to int erpret this result as normal/abnormal . [facility] HospitalWxeeyytVSLOBDMFJA8209-14-95 07:38:00 Test Item Value Reference Range Interpretation Comments Atypical Lymphs (test code = Atypical 0.0 Lymphs) [facility] HospitalGyaezqwHODGJOLFXL2591-60-32 07:38:00 Test Item Value Reference Range Interpretation Comments Metamyelocytes (test code 6.0 See_Comment [ Automated message] = Metamyelocytes) The system which generated this result transmitted ref erence range: <=1.0. T he reference range was not used to int erpret this result as normal/abnormal . [facility] HospitalNnuyhkmUDUZJDGAHO9583-69-01 07:38:00 Test Item Value Reference Range Interpretation Comments Eosinophils # (test code 0.9 See_Comment [A utomated message] The = Eosinophils #) system whic h generated this result tra nsmitted reference range : <=0.5. The reference r jase was not used to int erpret this result as normal/abnormal . [facility] HospitalNamgfroPZGCEPCGFX3772-93-40 07:38:00 Test Item Value Reference Range Interpretation Comments Bands (test code = 7.0 See_Comment [Automat ed message] The Bands) system which ge nerated this result transmit owen reference range : <=11.0. The reference r jase was not used to interpr et this result as fredi l/abnormal. [facility] CBQRYNNLC4282-81-20 07:38:00 Test Item Value Reference Range Interpretation Comments Hgb A1C (test code = Hgb A1C) 10.4 [facility] HospitalXezgjoaXURSOYSOSJ3140-30-39 07:38:00 Test Item Value Reference Range Interpretation Comments Anisocyte (test code = 1+ *ABN*(05/05/15 Anisocyte) 1:38 AM) [facility] HospitalCnkgvyiJKWHMPSNSX4436-53-63 07:38:00 Test Item Value Reference Range Interpretation Comments Plt Morph (test code = Normal (05/05/15 1:38 Plt Morph) AM) [facility] HospitalAicgvhxPRSOJBVPTP2966-32-14 07:38:00 Test Item Value Reference Range Interpretation Comments Macrocyte (test code = 3+ *ABN*(05/05/15 Macrocyte) 1:38 AM) [facility] HospitalHdpwxkgMCRQJKEDQP9505-76-12 07:38:00 Test Item Value Reference Range Interpretation Comments Eosinophils (test code = 4.0 See_Comment [A utomated message] The Eosinophils) system which ge nerated this result tra nsmitted reference range : <=4.0. The reference r jase was not used to int erpret this result as normal/abnormal . [facility] HospitalZzwmvidCGLXJQUELM6147-79-69 07:38:00 Test Item Value Reference Range Interpretation Comments Atypical Lymphs (test code = Atypical 0.0 Lymphs) [facility] HospitalQvsexpgJLGZHQRLLB9357-18-37 07:38:00 Test Item Value Reference Range Interpretation Comments Metamyelocytes (test code 6.0 See_Comment [ Automated message] = Metamyelocytes) The system which generated this result transmitted ref erence range: <=1.0. T he reference range was not used to int erpret this result as normal/abnormal . [facility] HospitalFflsfbcIKGZNJRMSX3333-48-62 07:38:00 Test Item Value Reference Range Interpretation Comments Eosinophils # (test code 0.9 See_Comment [A utomated message] The = Eosinophils #) system whic h generated this result tra nsmitted reference range : <=0.5. The reference r jase was not used to int erpret this result as normal/abnormal . [facility] HospitalBtuvzihTRUTDMOAWS5766-32-89 07:38:00 Test Item Value Reference Range Interpretation Comments Bands (test code = 7.0 See_Comment [Automat ed message] The Bands) system which ge nerated this result transmit owen reference range : <=11.0. The reference r jase was not used to interpr et this result as fredi l/abnormal. [facility] QCWASOVRV4373-90-94 07:38:00 Test Item Value Reference Range Interpretation Comments Hgb A1C (test code = Hgb A1C) 10.4 [facility] HospitalSfymehsCFEYTNMAFH7079-09-74 07:38:00 Test Item Value Reference Range Interpretation Comments Anisocyte (test code = 1+ *ABN*(05/05/15 Anisocyte) 1:38 AM) [facility] HospitalByapvlnWRIIOSHEIS2587-60-08 07:38:00 Test Item Value Reference Range Interpretation Comments Plt Morph (test code = Normal (05/05/15 1:38 Plt Morph) AM) [facility] HospitalPfpsdvnFGSVRWFSCJ5315-53-62 07:38:00 Test Item Value Reference Range Interpretation Comments Macrocyte (test code = 3+ *ABN*(05/05/15 Macrocyte) 1:38 AM) [facility] HospitalTvbjzutXDAQBVSQYC6728-59-67 07:38:00 Test Item Value Reference Range Interpretation Comments Eosinophils (test code = 4.0 See_Comment [A utomated message] The Eosinophils) system which ge nerated this result tra nsmitted reference range : <=4.0. The reference r jase was not used to int erpret this result as normal/abnormal . [facility] HospitalSnbmmadVXNSOIDPPU3984-02-23 07:38:00 Test Item Value Reference Range Interpretation Comments Atypical Lymphs (test code = Atypical 0.0 Lymphs) [facility] HospitalCckhkfxESXPMIPZOQ4015-90-46 07:38:00 Test Item Value Reference Range Interpretation Comments Metamyelocytes (test code 6.0 See_Comment [ Automated message] = Metamyelocytes) The system which generated this result transmitted ref erence range: <=1.0. T he reference range was not used to int erpret this result as normal/abnormal . [facility] HospitalOashvroULAKPLEUCY7239-56-74 07:38:00 Test Item Value Reference Range Interpretation Comments Eosinophils # (test code 0.9 See_Comment [A utomated message] The = Eosinophils #) system whic h generated this result tra nsmitted reference range : <=0.5. The reference r jase was not used to int erpret this result as normal/abnormal . [facility] HospitalDxazdjqIBOQGEXUTO4639-57-76 07:38:00 Test Item Value Reference Range Interpretation Comments Bands (test code = 7.0 See_Comment [Automat ed message] The Bands) system which ge nerated this result transmit owen reference range : <=11.0. The reference r jase was not used to interpr et this result as fredi l/abnormal. [facility] DXDNQZQAT2702-42-21 07:38:00 Test Item Value Reference Range Interpretation Comments Hgb A1C (test code = Hgb A1C) 10.4 [facility]CHE[facility] EWOZM5481-67-72 20:50:00 Test Item Value Reference Range Interpretation Comments B/C Ratio (test code = B/C Ratio) 12 6-25 [facility]2015-12-18 20:50:00 Test Item Value Reference Range Interpretation Comments A/G Ratio (test code = A/G Ratio) 1.1 0.7-1.6 [place] 413505-12-18 20:50:00 Test Item Value Reference Range Interpretation Comments Globulin (test code = Globulin) 3.7 2.0-4.0 [facility]2015-12-18 20:50:00 Test Item Value Reference Range Interpretation Comments Albumin Lvl (test code = Albumin Lvl) 4.1 3.5-5.0 [facility]2015-12-18 20:50:00 Test Item Value Reference Range Interpretation Comments Total Protein (test code = Total 7.8 6.4-8.4 Protein) [facility]2015-12-18 20:50:00 Test Item Value Reference Range Interpretation Comments Alk Phos (test code = Alk Phos) 105 39-136 [facility]2015-12-18 20:50:00 Test Item Value Reference Range Interpretation Comments AST (test code = AST) 10 See_Comment [Auto mated message] The system which ge nerated this result transmit owen reference range : <=37. The reference range was not used to interpr et this result as fredi l/abnormal. [facility]2015-12-18 20:50:00 Test Item Value Reference Range Interpretation Comments ALT (test code = ALT) 22 See_Comment [Auto mated message] The system which ge nerated this result transmit owen reference range : <=65. The reference range was not used to interpr et this result as fredi l/abnormal. [facility]2015-12-18 20:50:00 Test Item Value Reference Range Interpretation Comments Bili Total (test code = Bili Total) 0.6 0.2-1.3 [facility] CenterXkyomqbJOHXBTUCHQZYK4552-87-90 20:50:00 Test Item Value Reference Range Interpretation Comments S Preg (test code = S Negative *NA*(05/04/15 Preg) 2:50 PM) [facility]CgxxisvOTYBNQHFXO1816-98-89 20:50:00 Test Item Value Reference Range Interpretation Comments Basophils (test code = 0.8 See_Comment [Aut omated message] The Basophils) system which ge nerated this result tra nsmitted reference range : <=1.0. The reference r jase was not used to int erpret this result as normal/abnormal . [facility] HospitalMhloveoRRQLOEHEAO3316-57-12 20:50:00 Test Item Value Reference Range Interpretation Comments Macrocyte (test code = 1+ *ABN*(05/04/15 Macrocyte) 2:50 PM) [facility] HospitalWnhqeldDZRVGGUZJU2144-87-08 20:50:00 Test Item Value Reference Range Interpretation Comments Basophils # (test code 0.1 See_Comment [Aut omated message] The = Basophils #) system which generated this result tra nsmitted reference range : <=0.2. The reference r jase was not used to int erpret this result as normal/abnormal . [facility] AND [id number] 20:50:00 Test Item Value Reference Range Interpretation Comments UA Hyal Cast 3-5 (05/04/15 See_Comment [Automated me ssage] (test code = UA 2:50 PM) The system w hich Hyal Cast) generated this result transmitted ref erence range: <=2. The reference range was not used to int erpret this result as normal/abnormal . [facility] AND FWRDM1298-08-15 20:50:00 Test Item Value Reference Range Interpretation Comments UA Mucus (test code = UA Mucus) Rare /LPF [facility] AND PLUQE2929-21-30 20:50:00 Test Item Value Reference Range Interpretation Comments UA Bacteria (test code = UA Few /HPF Bacteria) [facility] AND [id number] 20:50:00 Test Item Value Reference Range Interpretation Comments UA RBC (test None Seen See_Comment [Automated mes james] code = UA RBC) (05/04/15 2:50 The system which PM) generated this result transmitted ref erence range: <=2. The reference range was not used to int erpret this result as normal/abnormal . [facility] AND [id number] 20:50:00 Test Item Value Reference Range Interpretation Comments UA WBC (test code = UA WBC) 0-2 /HPF [facility] AND [id number] 20:50:00 Test Item Value Reference Range Interpretation Comments UA Sq Epi (test code = UA Sq Occasional /LPF Epi) [facility] AND [id number] 20:50:00 Test Item Value Reference Range Interpretation Comments UA Color (test code = Yellow *NA*(05/04/15 UA Color) 2:50 PM) [facility] AND [id number] 20:50:00 Test Item Value Reference Range Interpretation Comments Micro? (test code = Performed (05/04/15 2:50 Micro?) PM) [facility] AND [id number] 20:50:00 Test Item Value Reference Range Interpretation Comments UA Leuk Est (test Negative (05/04/15 2:50 code = UA Leuk Est) PM) [facility] AND [id number] 20:50:00 Test Item Value Reference Range Interpretation Comments UA Nitrite (test code Negative (05/04/15 2:50 = UA Nitrite) PM) [facility] AND [id number] 20:50:00 Test Item Value Reference Range Interpretation Comments UA Urobilinogen (test code = UA 0.2 0.1-1.0 Urobilinogen) [facility] AND [id number] 20:50:00 Test Item Value Reference Range Interpretation Comments UA Bili (test code = Moderate *ABN*(05/04/15 UA Bili) 2:50 PM) [facility] AND [id number] 20:50:00 Test Item Value Reference Range Interpretation Comments UA Protein (test code = Trace *ABN*(05/04/15 UA Protein) 2:50 PM) [facility] AND [id number] 20:50:00 Test Item Value Reference Range Interpretation Comments UA Blood (test code = Negative (05/04/15 2:50 UA Blood) PM) [facility] AND [id number] 20:50:00 Test Item Value Reference Range Interpretation Comments UA Glucose (test code = UA >=1000 mg/dL Glucose) [facility] AND [id number] 20:50:00 Test Item Value Reference Range Interpretation Comments UA Ketones (test code = UA >=80 mg/dL Ketones) [facility] AND [id number] 20:50:00 Test Item Value Reference Range Interpretation Comments UA pH (test code = UA pH) 6.0 1 5.0-8.0 [facility] AND [id number] 20:50:00 Test Item Value Reference Range Interpretation Comments UA Spec Grav (test code = UA Spec 1.025 1 Grav) [facility] AND [id number] 20:50:00 Test Item Value Reference Range Interpretation Comments UA Turbidity (test code = Clear (05/04/15 2:50 UA Turbidity) PM) [facility] [id number] 20:50:00 Test Item Value Reference Range Interpretation Comments B/C Ratio (test code = B/C Ratio) 12 6-25 [facility]2015-12-18 20:50:00 Test Item Value Reference Range Interpretation Comments A/G Ratio (test code = A/G Ratio) 1.1 0.7-1.6 [facility]2015-12-18 20:50:00 Test Item Value Reference Range Interpretation Comments Globulin (test code = Globulin) 3.7 2.0-4.0 [facility]2015-12-18 20:50:00 Test Item Value Reference Range Interpretation Comments Albumin Lvl (test code = Albumin Lvl) 4.1 3.5-5.0 [facility]2015-12-18 20:50:00 Test Item Value Reference Range Interpretation Comments Total Protein (test code = Total 7.8 6.4-8.4 Protein) [facility]2015-12-18 20:50:00 Test Item Value Reference Range Interpretation Comments Alk Phos (test code = Alk Phos) 105 39-136 [facility]2015-12-18 20:50:00 Test Item Value Reference Range Interpretation Comments AST (test code = AST) 10 See_Comment [Auto mated message] The system which ge nerated this result transmit owen reference range : <=37. The reference range was not used to interpr et this result as fredi l/abnormal. [facility]2015-12-18 20:50:00 Test Item Value Reference Range Interpretation Comments ALT (test code = ALT) 22 See_Comment [Auto mated message] The system which ge nerated this result transmit owen reference range : <=65. The reference range was not used to interpr et this result as fredi l/abnormal. [place] [id number] 20:50:00 Test Item Value Reference Range Interpretation Comments Bili Total (test code = Bili Total) 0.6 0.2-1.3 [place] [id number] 20:50:00 Test Item Value Reference Range Interpretation Comments S Preg (test code = S Negative *NA*(05/04/15 Preg) 2:50 PM) [id number] 20:50:00 Test Item Value Reference Range Interpretation Comments Basophils (test code = 0.8 See_Comment [Aut omated message] The Basophils) system which ge nerated this result tra nsmitted reference range : <=1.0. The reference r jase was not used to int erpret this result as normal/abnormal . [facility]VgktwmnGVWTHLCTFN5149-00-22 20:50:00 Test Item Value Reference Range Interpretation Comments Macrocyte (test code = 1+ *ABN*(05/04/15 Macrocyte) 2:50 PM) [facility] HospitalUpdrjkyIBZIWNOWEK6519-72-26 20:50:00 Test Item Value Reference Range Interpretation Comments Basophils # (test code 0.1 See_Comment [Aut omated message] The = Basophils #) system which generated this result tra nsmitted reference range : <=0.2. The reference r jase was not used to int erpret this result as normal/abnormal . [facility] AND [id number] 20:50:00 Test Item Value Reference Range Interpretation Comments UA Hyal Cast 3-5 (05/04/15 See_Comment [Automated me ssage] (test code = UA 2:50 PM) The system w hic Hyal Cast) generated this result transmitted ref erence range: <=2. The reference range was not used to int erpret this result as normal/abnormal . [facility] AND [id number] 20:50:00 Test Item Value Reference Range Interpretation Comments UA Mucus (test code = UA Mucus) Rare /LPF [facility] AND [id number] 20:50:00 Test Item Value Reference Range Interpretation Comments UA Bacteria (test code = UA Few /HPF Bacteria) [facility] AND [id number] 20:50:00 Test Item Value Reference Range Interpretation Comments UA RBC (test None Seen See_Comment [Automated mes james] code = UA RBC) (05/04/15 2:50 The system which PM) generated this result transmitted ref erence range: <=2. The reference range was not used to int erpret this result as normal/abnormal . [facility] AND [id number] 20:50:00 Test Item Value Reference Range Interpretation Comments UA WBC (test code = UA WBC) 0-2 /HPF [facility] AND [id number] 20:50:00 Test Item Value Reference Range Interpretation Comments UA Sq Epi (test code = UA Sq Occasional /LPF Epi) [facility] AND [id number] 20:50:00 Test Item Value Reference Range Interpretation Comments UA Color (test code = Yellow *NA*(05/04/15 UA Color) 2:50 PM) [facility] AND [id number] 20:50:00 Test Item Value Reference Range Interpretation Comments Micro? (test code = Performed (05/04/15 2:50 Micro?) PM) [facility] AND [id number] 20:50:00 Test Item Value Reference Range Interpretation Comments UA Leuk Est (test Negative (05/04/15 2:50 code = UA Leuk Est) PM) [facility] AND [id number] 20:50:00 Test Item Value Reference Range Interpretation Comments UA Nitrite (test code Negative (05/04/15 2:50 = UA Nitrite) PM) [facility] AND [id number] 20:50:00 Test Item Value Reference Range Interpretation Comments UA Urobilinogen (test code = UA 0.2 0.1-1.0 Urobilinogen) [facility] AND [id number] 20:50:00 Test Item Value Reference Range Interpretation Comments UA Bili (test code = Moderate *ABN*(05/04/15 UA Bili) 2:50 PM) [facility] AND [id number] 20:50:00 Test Item Value Reference Range Interpretation Comments UA Protein (test code = Trace *ABN*(05/04/15 UA Protein) 2:50 PM) [facility] AND [id number] 20:50:00 Test Item Value Reference Range Interpretation Comments UA Blood (test code = Negative (05/04/15 2:50 UA Blood) PM) [facility] AND [id number] 20:50:00 Test Item Value Reference Range Interpretation Comments UA Glucose (test code = UA >=1000 mg/dL Glucose) [facility] AND [id number] 20:50:00 Test Item Value Reference Range Interpretation Comments UA Ketones (test code = UA >=80 mg/dL Ketones) [facility] AND [id number] 20:50:00 Test Item Value Reference Range Interpretation Comments UA pH (test code = UA pH) 6.0 1 5.0-8.0 [facility] AND [id number] 20:50:00 Test Item Value Reference Range Interpretation Comments UA Spec Grav (test code = UA Spec 1.025 1 Grav) [facility] AND [id number] 20:50:00 Test Item Value Reference Range Interpretation Comments UA Turbidity (test code = Clear (05/04/15 2:50 UA Turbidity) PM) [facility]2015-12-18 20:50:00 Test Item Value Reference Range Interpretation Comments B/C Ratio (test code = B/C Ratio) 12 6-25 [facility]2015-12-18 20:50:00 Test Item Value Reference Range Interpretation Comments A/G Ratio (test code = A/G Ratio) 1.1 0.7-1.6 [facility]2015-12-18 20:50:00 Test Item Value Reference Range Interpretation Comments Globulin (test code = Globulin) 3.7 2.0-4.0 [facility]2015-12-18 20:50:00 Test Item Value Reference Range Interpretation Comments Albumin Lvl (test code = Albumin Lvl) 4.1 3.5-5.0 [facility]2015-12-18 20:50:00 Test Item Value Reference Range Interpretation Comments Total Protein (test code = Total 7.8 6.4-8.4 Protein) [facility]2015-12-18 20:50:00 Test Item Value Reference Range Interpretation Comments Alk Phos (test code = Alk Phos) 105 39-136 [facility]2015-12-18 20:50:00 Test Item Value Reference Range Interpretation Comments AST (test code = AST) 10 See_Comment [Auto mated message] The system which ge nerated this result transmit owen reference range : <=37. The reference range was not used to interpr et this result as fredi l/abnormal. [facility]2015-12-18 20:50:00 Test Item Value Reference Range Interpretation Comments ALT (test code = ALT) 22 See_Comment [Auto mated message] The system which ge nerated this result transmit owen reference range : <=65. The reference range was not used to interpr et this result as fredi l/abnormal. [facility]2015-12-18 20:50:00 Test Item Value Reference Range Interpretation Comments Bili Total (test code = Bili Total) 0.6 0.2-1.3 [place] [id number] 20:50:00 Test Item Value Reference Range Interpretation Comments S Preg (test code = S Negative *NA*(05/04/15 Preg) 2:50 PM) [facility] H[id number] 20:50:00 Test Item Value Reference Range Interpretation Comments Basophils (test code = 0.8 See_Comment [Aut omated message] The Basophils) system which ge nerated this result tra nsmitted reference range : <=1.0. The reference r jase was not used to int erpret this result as normal/abnormal . [facility] HospitalNgxnoowYEKZFMSHVR8616-37-00 20:50:00 Test Item Value Reference Range Interpretation Comments Macrocyte (test code = 1+ *ABN*(05/04/15 Macrocyte) 2:50 PM) [facility] HospitalWukchvbXKRHDWWDTE5315-07-07 20:50:00 Test Item Value Reference Range Interpretation Comments Basophils # (test code 0.1 See_Comment [Aut omated message] The = Basophils #) system which generated this result tra nsmitted reference range : <=0.2. The reference r jase was not used to int erpret this result as normal/abnormal . [facility] AND [id number] 20:50:00 Test Item Value Reference Range Interpretation Comments UA Hyal Cast 3-5 (05/04/15 See_Comment [Automated me ssage] (test code = UA 2:50 PM) The system w hich Hyal Cast) generated this result transmitted ref erence range: <=2. The reference range was not used to int erpret this result as normal/abnormal . [facility] [id number] 20:50:00 Test Item Value Reference Range Interpretation Comments UA Mucus (test code = UA Mucus) Rare /LPF [facility] [id number] 20:50:00 Test Item Value Reference Range Interpretation Comments UA Bacteria (test code = UA Few /HPF Bacteria) [facility] [id number] 20:50:00 Test Item Value Reference Range Interpretation Comments UA RBC (test None Seen See_Comment [Automated mes james] code = UA RBC) (05/04/15 2:50 The system which PM) generated this result transmitted ref erence range: <=2. The reference range was not used to int erpret this result as normal/abnormal . [facility] [id number] 20:50:00 Test Item Value Reference Range Interpretation Comments UA WBC (test code = UA WBC) 0-2 /HPF [facility] [id number] 20:50:00 Test Item Value Reference Range Interpretation Comments UA Sq Epi (test code = UA Sq Occasional /LPF Epi) [facility] [id number] 20:50:00 Test Item Value Reference Range Interpretation Comments UA Color (test code = Yellow *NA*(05/04/15 UA Color) 2:50 PM) [facility] [id number] 20:50:00 Test Item Value Reference Range Interpretation Comments Micro? (test code = Performed (05/04/15 2:50 Micro?) PM) [facility] [id number] 20:50:00 Test Item Value Reference Range Interpretation Comments UA Leuk Est (test Negative (05/04/15 2:50 code = UA Leuk Est) PM) [facility] [id number] 20:50:00 Test Item Value Reference Range Interpretation Comments UA Nitrite (test code Negative (05/04/15 2:50 = UA Nitrite) PM) [facility] [id number] 20:50:00 Test Item Value Reference Range Interpretation Comments UA Urobilinogen (test code = UA 0.2 0.1-1.0 Urobilinogen) [facility] [id number] 20:50:00 Test Item Value Reference Range Interpretation Comments UA Bili (test code = Moderate *ABN*(05/04/15 UA Bili) 2:50 PM) [facility] AND [id number] 20:50:00 Test Item Value Reference Range Interpretation Comments UA Protein (test code = Trace *ABN*(05/04/15 UA Protein) 2:50 PM) [facility] AND [id number] 20:50:00 Test Item Value Reference Range Interpretation Comments UA Blood (test code = Negative (05/04/15 2:50 UA Blood) PM) [facility] AND [id number] 20:50:00 Test Item Value Reference Range Interpretation Comments UA Glucose (test code = UA >=1000 mg/dL Glucose) [facility] AND [id number] 20:50:00 Test Item Value Reference Range Interpretation Comments UA Ketones (test code = UA >=80 mg/dL Ketones) [facility] AND [id number] 20:50:00 Test Item Value Reference Range Interpretation Comments UA pH (test code = UA pH) 6.0 1 5.0-8.0 [facility] AND [id number] 20:50:00 Test Item Value Reference Range Interpretation Comments UA Spec Grav (test code = UA Spec 1.025 1 Grav) [facility] AND [id number] 20:50:00 Test Item Value Reference Range Interpretation Comments UA Turbidity (test code = Clear (05/04/15 2:50 UA Turbidity) PM) [id number] 19:50:00 Test Item Value Reference Range Interpretation Comments AGAP (test code = AGAP) 11.1 10.0-20.0 [facility] HospitalMuwhltcJDJLAZWTHCLK7223-81-58 19:50:00 Test Item Value Reference Range Interpretation Comments eGFR (test code = eGFR) 119 [facility] HospitalOzvdfvdGJJMITLLOSEQ8172-30-32 19:50:00 Test Item Value Reference Range Interpretation Comments Potassium Lvl (test code = Potassium 4.1 3.5-5.1 Lvl) [facility] Hos[id number] 19:50:00 Test Item Value Reference Range Interpretation Comments Creatinine Lvl (test code = Creatinine 0.72 0.50-1.40 Lvl) [facility] Hos[id number] 19:50:00 Test Item Value Reference Range Interpretation Comments Chloride Lvl (test code = Chloride Lvl) 106 95-109 [facility] HospitalBdykocrXXWCKOLSQJEY6408-70-53 19:50:00 Test Item Value Reference Range Interpretation Comments Sodium Lvl (test code = Sodium Lvl) 137 135-145 [facility] HospitalJyiujypLBJUOCREQGXB1200-88-05 19:50:00 Test Item Value Reference Range Interpretation Comments Calcium Lvl (test code = Calcium Lvl) 9.5 8.5-10.5 [facility] HospitalDnigmigJGRESMKPPBDJ6218-87-10 19:50:00 Test Item Value Reference Range Interpretation Comments CO2 (test code = CO2) 24 24-32 [facility] Hospital[id number] 19:50:00 Test Item Value Reference Range Interpretation Comments BUN (test code = BUN) 8 7-22 [facility] HospitalYmxvpcfGAOAJWBUCNJH9687-45-11 19:50:00 Test Item Value Reference Range Interpretation Comments Glucose Lvl (test code = Glucose Lvl) 251 70-99 [facility] HospitalBacoqpjCXVCONFYPF5054-14-95 19:50:00 Test Item Value Reference Range Interpretation Comments MCV (test code = MCV) 99.3 80.0-98.0 [facility] HospitalCqeuopyBQWSVCWBJM6102-98-16 19:50:00 Test Item Value Reference Range Interpretation Comments MCH (test code = MCH) 33.1 pg 27.0-31.0 [facility] HospitalCxjwvnlFKVDOIXCOD3511-40-76 19:50:00 Test Item Value Reference Range Interpretation Comments Hct (test code = Hct) 40.6 36.0-48.0 [facility] HospitalWdigdrzXOCGVRCXVG8256-16-15 19:50:00 Test Item Value Reference Range Interpretation Comments Hgb (test code = Hgb) 13.5 12.0-16.0 [facility] HospitalKktaxzbMBQAMCJLFH0089-69-50 19:50:00 Test Item Value Reference Range Interpretation Comments Platelet (test code = Platelet) 312 133-450 [facility] HospitalCiwzlqfJBTAAPFOVV7683-79-77 19:50:00 Test Item Value Reference Range Interpretation Comments MCHC (test code = MCHC) 33.3 32.0-36.0 [facility] HospitalGqhmpcgIVVSLQRKWS3061-85-87 19:50:00 Test Item Value Reference Range Interpretation Comments RDW (test code = RDW) 13.2 11.5-14.5 [facility] HospitalVhryuvsZMPBAUZKMK3892-51-98 19:50:00 Test Item Value Reference Range Interpretation Comments RBC (test code = RBC) 4.09 4.20-5.40 [facility] HospitalMdmzvoyYRQQDPGTFM5880-74-71 19:50:00 Test Item Value Reference Range Interpretation Comments WBC (test code = WBC) 7.4 3.7-10.4 [facility] HospitalQriggqiMOBRVCOOLK8236-04-80 19:50:00 Test Item Value Reference Range Interpretation Comments MPV (test code = MPV) 8.2 7.4-10.4 [facility] HospitalKgztrsbYJIEQWSXCY0923-97-94 19:50:00 Test Item Value Reference Range Interpretation Comments Basophils (test code = 1.2 See_Comment [Aut omated message] The Basophils) system which ge nerated this result tra nsmitted reference range : <=1.0. The reference r jase was not used to int erpret this result as normal/abnormal . [facility] HospitalIpsvqqnIITJCUMYIK1941-55-05 19:50:00 Test Item Value Reference Range Interpretation Comments Segs-Bands # (test code = Segs-Bands #) 4.2 1.5-8.1 [facility] HospitalUytgqopLQADLTIRKK7031-22-60 19:50:00 Test Item Value Reference Range Interpretation Comments Macrocyte (test code = 1+ *ABN*(03/28/15 Macrocyte) 1:50 PM) [facility] HospitalVkjtmsjDPRGVAQJOO0770-82-88 19:50:00 Test Item Value Reference Range Interpretation Comments Eosinophils # (test code 0.4 See_Comment [A utomated message] The = Eosinophils #) system whic h generated this result tra nsmitted reference range : <=0.5. The reference r jase was not used to int erpret this result as normal/abnormal . [facility] HospitalVuklhfrKKVMVYGSKY8702-35-75 19:50:00 Test Item Value Reference Range Interpretation Comments Basophils # (test code 0.1 See_Comment [Aut omated message] The = Basophils #) system which generated this result tra nsmitted reference range : <=0.2. The reference r jase was not used to int erpret this result as normal/abnormal . [facility] HospitalDqfnpniVXKTVHGUAL7513-08-38 19:50:00 Test Item Value Reference Range Interpretation Comments Lymphocytes # (test code = Lymphocytes 2.1 1.0-5.5 #) [facility] HospitalHbrxogaNAWVVLDTBI7863-98-83 19:50:00 Test Item Value Reference Range Interpretation Comments Monocytes # (test code 0.6 See_Comment [Aut omated message] The = Monocytes #) system which generated this result tra nsmitted reference range : <=0.8. The reference r jase was not used to int erpret this result as normal/abnormal . [facility] HospitalMbtlwilBAKGMOOURL6188-80-81 19:50:00 Test Item Value Reference Range Interpretation Comments Monocytes (test code = Monocytes) 7.9 2.0-12.0 [facility] HospitalDmpkqecWFTEGGPDXB8198-63-24 19:50:00 Test Item Value Reference Range Interpretation Comments Segs (test code = Segs) 56.4 45.0-75.0 [facility] HospitalRdstgtaJMNYPLLMAS3320-63-85 19:50:00 Test Item Value Reference Range Interpretation Comments Lymphocytes (test code = Lymphocytes) 28.8 20.0-40.0 [facility] HospitalMnlsqgpXTIQVJUOUQ3340-88-69 19:50:00 Test Item Value Reference Range Interpretation Comments Eosinophils (test code = 5.7 See_Comment [A utomated message] The Eosinophils) system which ge nerated this result tra nsmitted reference range : <=4.0. The reference r jase was not used to int erpret this result as normal/abnormal . [facility] HospitalJbefgcgECEULEGXHJRU0084-09-40 19:50:00 Test Item Value Reference Range Interpretation Comments AGAP (test code = AGAP) 11.1 10.0-20.0 [facility] HospitalSlxdhjfYGPYEPPNFABB0054-69-56 19:50:00 Test Item Value Reference Range Interpretation Comments eGFR (test code = eGFR) 119 [facility] HospitalCzaheqrGXYBWZVMBFIV6938-74-94 19:50:00 Test Item Value Reference Range Interpretation Comments Potassium Lvl (test code = Potassium 4.1 3.5-5.1 Lvl) [facility] HospitalRfevnstRWVMQWNIJRVU9973-33-29 19:50:00 Test Item Value Reference Range Interpretation Comments Creatinine Lvl (test code = Creatinine 0.72 0.50-1.40 Lvl) [facility] HospitalRdloyjbSEOEHHSIYELW6150-89-36 19:50:00 Test Item Value Reference Range Interpretation Comments Chloride Lvl (test code = Chloride Lvl) 106 95-109 [facility] HospitalHarrmluJSWQCSBDNRHR3481-94-87 19:50:00 Test Item Value Reference Range Interpretation Comments Sodium Lvl (test code = Sodium Lvl) 137 135-145 [facility] HospitalHwlbvwoDXYWUJTMDHDJ4000-50-91 19:50:00 Test Item Value Reference Range Interpretation Comments Calcium Lvl (test code = Calcium Lvl) 9.5 8.5-10.5 [facility] HospitalNgzstogOIKIBZGCIDPU5284-93-20 19:50:00 Test Item Value Reference Range Interpretation Comments CO2 (test code = CO2) 24 24-32 [facility] HospitalGdherbxSOCBYHDGOCUP2672-22-96 19:50:00 Test Item Value Reference Range Interpretation Comments BUN (test code = BUN) 8 7-22 [facility] HospitalYxtgklxPWQHJPRILMRD6243-53-76 19:50:00 Test Item Value Reference Range Interpretation Comments Glucose Lvl (test code = Glucose Lvl) 251 70-99 [facility] HospitalAfshysmIBLIGVFSQO2318-35-69 19:50:00 Test Item Value Reference Range Interpretation Comments MCV (test code = MCV) 99.3 80.0-98.0 [facility] HospitalLtnneqjIMMDJFLKSO0085-15-71 19:50:00 Test Item Value Reference Range Interpretation Comments MCH (test code = MCH) 33.1 pg 27.0-31.0 [facility] HospitalDlijxvsKINBFEOTIH8580-29-26 19:50:00 Test Item Value Reference Range Interpretation Comments Hct (test code = Hct) 40.6 36.0-48.0 [facility] HospitalFujbrcoRIQATDDDHW0454-46-12 19:50:00 Test Item Value Reference Range Interpretation Comments Hgb (test code = Hgb) 13.5 12.0-16.0 [facility] HospitalNjmbpczOLIDEAVFZT4390-21-51 19:50:00 Test Item Value Reference Range Interpretation Comments Platelet (test code = Platelet) 312 133-450 [facility] HospitalKrkwkqtQRNFXAMIPG1728-07-51 19:50:00 Test Item Value Reference Range Interpretation Comments MCHC (test code = MCHC) 33.3 32.0-36.0 [facility] HospitalFitxvqhSYCZQAHPMG9008-68-34 19:50:00 Test Item Value Reference Range Interpretation Comments RDW (test code = RDW) 13.2 11.5-14.5 [facility] HospitalEysxypoHQQMQTOSKG8892-69-80 19:50:00 Test Item Value Reference Range Interpretation Comments RBC (test code = RBC) 4.09 4.20-5.40 [facility] HospitalWelphlrEOTOZCLQNI6205-08-64 19:50:00 Test Item Value Reference Range Interpretation Comments WBC (test code = WBC) 7.4 3.7-10.4 [facility] HospitalErndwfdLOYKWOKWFR5945-70-37 19:50:00 Test Item Value Reference Range Interpretation Comments MPV (test code = MPV) 8.2 7.4-10.4 [facility] [facility]6450[facility] 19:50:00 Test Item Value Reference Range Interpretation Comments Basophils (test code = 1.2 See_Comment [Aut omated message] The Basophils) system which ge nerated this result tra nsmitted reference range : <=1.0. The reference r jase was not used to int erpret this result as normal/abnormal . [facility] HospitalRtcwcazHJJVVFTGCF3286-53-99 19:50:00 Test Item Value Reference Range Interpretation Comments Segs-Bands # (test code = Segs-Bands #) 4.2 1.5-8.1 [facility] HospitalZmxagrxYFUMUGBRYA0012-29-81 19:50:00 Test Item Value Reference Range Interpretation Comments Macrocyte (test code = 1+ *ABN*(03/28/15 Macrocyte) 1:50 PM) [facility] HospitalMbxeahwFVGBYMLFVW7812-00-10 19:50:00 Test Item Value Reference Range Interpretation Comments Eosinophils # (test code 0.4 See_Comment [A utomated message] The = Eosinophils #) system whic h generated this result tra nsmitted reference range : <=0.5. The reference r jase was not used to int erpret this result as normal/abnormal . [facility] HospitalZlbrhlzFYDFOUMDQE4760-70-54 19:50:00 Test Item Value Reference Range Interpretation Comments Basophils # (test code 0.1 See_Comment [Aut omated message] The = Basophils #) system which generated this result tra nsmitted reference range : <=0.2. The reference r jase was not used to int erpret this result as normal/abnormal . [facility] HospitalLoxczzwODWAKMAWMR0368-72-33 19:50:00 Test Item Value Reference Range Interpretation Comments Lymphocytes # (test code = Lymphocytes 2.1 1.0-5.5 #) [facility] HospitalWztgpwcSLQMLHZORF4865-35-46 19:50:00 Test Item Value Reference Range Interpretation Comments Monocytes # (test code 0.6 See_Comment [Aut omated message] The = Monocytes #) system which generated this result tra nsmitted reference range : <=0.8. The reference r jase was not used to int erpret this result as normal/abnormal . [facility] HospitalHermsuiWXCBRLOITI1243-50-74 19:50:00 Test Item Value Reference Range Interpretation Comments Monocytes (test code = Monocytes) 7.9 2.0-12.0 [facility] HospitalKjcocblMDHLGLZQVB8999-50-52 19:50:00 Test Item Value Reference Range Interpretation Comments Segs (test code = Segs) 56.4 45.0-75.0 [facility] HospitalPimtztmEHQKAAUHFP7699-20-84 19:50:00 Test Item Value Reference Range Interpretation Comments Lymphocytes (test code = Lymphocytes) 28.8 20.0-40.0 [facility] HospitalXcshwbbGAQXVEIKRV7041-50-37 19:50:00 Test Item Value Reference Range Interpretation Comments Eosinophils (test code = 5.7 See_Comment [A utomated message] The Eosinophils) system which ge nerated this result tra nsmitted reference range : <=4.0. The reference r jase was not used to int erpret this result as normal/abnormal . [facility]IwktgudCJEJKPZPVXYE4887-03-59 19:50:00 Test Item Value Reference Range Interpretation Comments AGAP (test code = AGAP) 11.1 10.0-20.0 [facility] HospitalWsnwksvOTEZXXMZLRTS2005-52-72 19:50:00 Test Item Value Reference Range Interpretation Comments eGFR (test code = eGFR) 119 [facility] HospitalHhckzruZDHWERSYDPHT5977-97-04 19:50:00 Test Item Value Reference Range Interpretation Comments Potassium Lvl (test code = Potassium 4.1 3.5-5.1 Lvl) [facility] HospitalCyscyufUXYCXOVOJONL4164-41-60 19:50:00 Test Item Value Reference Range Interpretation Comments Creatinine Lvl (test code = Creatinine 0.72 0.50-1.40 Lvl) [facility] HospitalOwffqqwYSEQVOWVAFLZ3464-90-07 19:50:00 Test Item Value Reference Range Interpretation Comments Chloride Lvl (test code = Chloride Lvl) 106 95-109 [facility] HospitalQqgvcxmOFQHEEENEVNK6012-05-72 19:50:00 Test Item Value Reference Range Interpretation Comments Sodium Lvl (test code = Sodium Lvl) 137 135-145 [facility] HospitalYoxqvswCOYVVWBJCFJQ0393-76-89 19:50:00 Test Item Value Reference Range Interpretation Comments Calcium Lvl (test code = Calcium Lvl) 9.5 8.5-10.5 [facility] HospitalEubgiaiQCREHLYRORXL3743-95-72 19:50:00 Test Item Value Reference Range Interpretation Comments CO2 (test code = CO2) 24 24-32 [facility] HospitalDewmgdaSTSJAARUZHBK8443-94-13 19:50:00 Test Item Value Reference Range Interpretation Comments BUN (test code = BUN) 8 7-22 [facility] HospitalGhjcshmRDFFINWCVVBV1856-75-35 19:50:00 Test Item Value Reference Range Interpretation Comments Glucose Lvl (test code = Glucose Lvl) 251 70-99 [facility] HospitalSjzeenfQRAWQWWQTL9532-79-63 19:50:00 Test Item Value Reference Range Interpretation Comments MCV (test code = MCV) 99.3 80.0-98.0 [facility] HospitalUgmpeydXSNVUMBWMC0914-96-24 19:50:00 Test Item Value Reference Range Interpretation Comments MCH (test code = MCH) 33.1 pg 27.0-31.0 [facility] HospitalPrvahmkPFHIMFYISA1618-80-91 19:50:00 Test Item Value Reference Range Interpretation Comments Hct (test code = Hct) 40.6 36.0-48.0 [facility] HospitalYdaqiwrHILQCOZJAU7962-35-71 19:50:00 Test Item Value Reference Range Interpretation Comments Hgb (test code = Hgb) 13.5 12.0-16.0 [facility] HospitalBdkisplSRBJYACDFW0515-19-88 19:50:00 Test Item Value Reference Range Interpretation Comments Platelet (test code = Platelet) 312 133-450 [facility] HospitalBklracmWAHJKGXSUY9518-32-17 19:50:00 Test Item Value Reference Range Interpretation Comments MCHC (test code = MCHC) 33.3 32.0-36.0 [facility] HospitalCzbsdsdTYCUMIAHAF7933-17-62 19:50:00 Test Item Value Reference Range Interpretation Comments RDW (test code = RDW) 13.2 11.5-14.5 [facility] HospitalIpuslhmIDVTCPBAVP2641-88-75 19:50:00 Test Item Value Reference Range Interpretation Comments RBC (test code = RBC) 4.09 4.20-5.40 [facility] HospitalKweizqrVNNUMHCGEB3400-00-21 19:50:00 Test Item Value Reference Range Interpretation Comments WBC (test code = WBC) 7.4 3.7-10.4 [facility] HospitalLvkwqfjXRSRXVEXKF2522-98-73 19:50:00 Test Item Value Reference Range Interpretation Comments MPV (test code = MPV) 8.2 7.4-10.4 [facility] HospitalIzuwwmzFGWISQCPHH3520-82-00 19:50:00 Test Item Value Reference Range Interpretation Comments Basophils (test code = 1.2 See_Comment [Aut omated message] The Basophils) system which ge nerated this result tra nsmitted reference range : <=1.0. The reference r jase was not used to int erpret this result as normal/abnormal . [facility] HospitalLqshbmvGOHNLHECDZ3477-86-49 19:50:00 Test Item Value Reference Range Interpretation Comments Segs-Bands # (test code = Segs-Bands #) 4.2 1.5-8.1 [facility] HospitalKmyrewbXPQXOQCASS3888-77-49 19:50:00 Test Item Value Reference Range Interpretation Comments Macrocyte (test code = 1+ *ABN*(03/28/15 Macrocyte) 1:50 PM) [facility] HospitalPistpcrFXXFZKXTDT7896-54-24 19:50:00 Test Item Value Reference Range Interpretation Comments Eosinophils # (test code 0.4 See_Comment [A utomated message] The = Eosinophils #) system whic h generated this result tra nsmitted reference range : <=0.5. The reference r jase was not used to int erpret this result as normal/abnormal . [facility] HospitalNrhsqlhDOERFTHOFS8890-13-32 19:50:00 Test Item Value Reference Range Interpretation Comments Basophils # (test code 0.1 See_Comment [Aut omated message] The = Basophils #) system which generated this result tra nsmitted reference range : <=0.2. The reference r jase was not used to int erpret this result as normal/abnormal . [facility] HospitalGohbepsPMYTVWOGDA8141-48-30 19:50:00 Test Item Value Reference Range Interpretation Comments Lymphocytes # (test code = Lymphocytes 2.1 1.0-5.5 #) [facility] HospitalDopdqgtBNWIWGLBFQ8517-60-01 19:50:00 Test Item Value Reference Range Interpretation Comments Monocytes # (test code 0.6 See_Comment [Aut omated message] The = Monocytes #) system which generated this result tra nsmitted reference range : <=0.8. The reference r jase was not used to int erpret this result as normal/abnormal . [facility] HospitalFkeemafTEMLKRTKFF0112-64-00 19:50:00 Test Item Value Reference Range Interpretation Comments Monocytes (test code = Monocytes) 7.9 2.0-12.0 [facility] HospitalIyskoyiCIICYFIZJS8528-95-13 19:50:00 Test Item Value Reference Range Interpretation Comments Segs (test code = Segs) 56.4 45.0-75.0 [facility] HospitalTfskvuwPBAFFBFBHV3578-27-08 19:50:00 Test Item Value Reference Range Interpretation Comments Lymphocytes (test code = Lymphocytes) 28.8 20.0-40.0 [facility] HospitalAntnijzIPALQXAWWE6700-49-27 19:50:00 Test Item Value Reference Range Interpretation Comments Eosinophils (test code = 5.7 See_Comment [A utomated message] The Eosinophils) system which ge nerated this result tra nsmitted reference range : <=4.0. The reference r jase was not used to int erpret this result as normal/abnormal . [facility] BVOJT7955-49-32 15:53:00 Test Item Value Reference Range Interpretation Comments eGFR (test code = eGFR) 79 [facility] FFXCC3851-62-23 15:53:00 Test Item Value Reference Range Interpretation Comments CO2 (test code = CO2) 25 24-32 [facility]2015-08-06 15:53:00 Test Item Value Reference Range Interpretation Comments Calcium Lvl (test code = Calcium Lvl) 8.1 8.5-10.5 [facility] CenterVidFall.comCRITICAL ACCESS HOSPITALUAFBS3690-54-75 15:53:00 Test Item Value Reference Range Interpretation Comments Potassium Lvl (test code = Potassium 5.0 3.5-5.1 Lvl) [facility] CenterEzakus DQFZE6600-76-59 15:53:00 Test Item Value Reference Range Interpretation Comments AGAP (test code = AGAP) 12.0 10.0-20.0 [facility]2015-08-06 15:53:00 Test Item Value Reference Range Interpretation Comments Sodium Lvl (test code = Sodium Lvl) 134 135-145 [facility] HospitalSolo[facility] GSSTY9758-71-91 15:53:00 Test Item Value Reference Range Interpretation Comments Creatinine Lvl (test code = Creatinine 1.0 0.5-1.4 Lvl) [facility]2015-08-06 15:53:00 Test Item Value Reference Range Interpretation Comments Chloride Lvl (test code = Chloride Lvl) 102 95-109 [facility]2015-08-06 15:53:00 Test Item Value Reference Range Interpretation Comments Glucose Lvl (test code = Glucose Lvl) 321 70-99 [facility]2015-08-06 15:53:00 Test Item Value Reference Range Interpretation Comments BUN (test code = BUN) 9 7-22 [facility]2015-08-06 15:53:00 Test Item Value Reference Range Interpretation Comments eGFR (test code = eGFR) 79 [facility]2015-08-06 15:53:00 Test Item Value Reference Range Interpretation Comments CO2 (test code = CO2) 25 24-32 [facility]2015-08-06 15:53:00 Test Item Value Reference Range Interpretation Comments Calcium Lvl (test code = Calcium Lvl) 8.1 8.5-10.5 [facility]2015-08-06 15:53:00 Test Item Value Reference Range Interpretation Comments Potassium Lvl (test code = Potassium 5.0 3.5-5.1 Lvl) [facility]2015-08-06 15:53:00 Test Item Value Reference Range Interpretation Comments AGAP (test code = AGAP) 12.0 10.0-20.0 [facility]2015-08-06 15:53:00 Test Item Value Reference Range Interpretation Comments Sodium Lvl (test code = Sodium Lvl) 134 135-145 [facility]2015-08-06 15:53:00 Test Item Value Reference Range Interpretation Comments Creatinine Lvl (test code = Creatinine 1.0 0.5-1.4 Lvl) [facility]2015-08-06 15:53:00 Test Item Value Reference Range Interpretation Comments Chloride Lvl (test code = Chloride Lvl) 102 95-109 [facility]2015-08-06 15:53:00 Test Item Value Reference Range Interpretation Comments Glucose Lvl (test code = Glucose Lvl) 321 70-99 [facility]2015-08-06 15:53:00 Test Item Value Reference Range Interpretation Comments BUN (test code = BUN) 9 7-22 [facility]2015-08-06 15:53:00 Test Item Value Reference Range Interpretation Comments eGFR (test code = eGFR) 79 [facility]2015-08-06 15:53:00 Test Item Value Reference Range Interpretation Comments CO2 (test code = CO2) 25 24-32 [facility]2015-08-06 15:53:00 Test Item Value Reference Range Interpretation Comments Calcium Lvl (test code = Calcium Lvl) 8.1 8.5-10.5 [facility]2015-08-06 15:53:00 Test Item Value Reference Range Interpretation Comments Potassium Lvl (test code = Potassium 5.0 3.5-5.1 Lvl) [facility]2015-08-06 15:53:00 Test Item Value Reference Range Interpretation Comments AGAP (test code = AGAP) 12.0 10.0-20.0 [facility]2015-08-06 15:53:00 Test Item Value Reference Range Interpretation Comments Sodium Lvl (test code = Sodium Lvl) 134 135-145 [facility]2015-08-06 15:53:00 Test Item Value Reference Range Interpretation Comments Creatinine Lvl (test code = Creatinine 1.0 0.5-1.4 Lvl) [facility]2015-08-06 15:53:00 Test Item Value Reference Range Interpretation Comments Chloride Lvl (test code = Chloride Lvl) 102 95-109 [facility]2015-08-06 15:53:00 Test Item Value Reference Range Interpretation Comments Glucose Lvl (test code = Glucose Lvl) 321 70-99 [facility]2015-08-06 15:53:00 Test Item Value Reference Range Interpretation Comments BUN (test code = BUN) 9 7-22 [facility]2015-08-06 02:55:00 Test Item Value Reference Range Interpretation Comments Magnesium Lvl (test code = Magnesium 2.7 1.8-2.4 Lvl) [facility] CenterEdfcirbEYTVTWLDFVFR8357-54-26 02:55:00 Test Item Value Reference Range Interpretation Comments Potassium Lvl (test code = Potassium 4.4 3.5-5.1 Lvl) [facility]2015-08-06 02:55:00 Test Item Value Reference Range Interpretation Comments Magnesium Lvl (test code = Magnesium 2.7 1.8-2.4 Lvl) [facility]XajhqfrPFBALNTLRDMZ3052-50-04 02:55:00 Test Item Value Reference Range Interpretation Comments Potassium Lvl (test code = Potassium 4.4 3.5-5.1 Lvl) [facility]2015-08-06 02:55:00 Test Item Value Reference Range Interpretation Comments Magnesium Lvl (test code = Magnesium 2.7 1.8-2.4 Lvl) [facility] HospitalXomundfEBROSVMTWHCH7169-97-07 02:55:00 Test Item Value Reference Range Interpretation Comments Potassium Lvl (test code = Potassium 4.4 3.5-5.1 Lvl) [facility] HospitalGtzkbqrECPUBAGFNSQK7099-52-64 21:06:00 Test Item Value Reference Range Interpretation Comments Potassium Lvl (test code = Potassium 4.0 3.5-5.1 Lvl) [facility] HospitalYktmbzxDWONCHYFJLHZ3130-90-49 21:06:00 Test Item Value Reference Range Interpretation Comments Potassium Lvl (test code = Potassium 4.0 3.5-5.1 Lvl) [facility] HospitalNmbvxvvMFGJSPRSWMDL2396-06-41 21:06:00 Test Item Value Reference Range Interpretation Comments Potassium Lvl (test code = Potassium 4.0 3.5-5.1 Lvl) [facility]2015-08-05 08:51:00 Test Item Value Reference Range Interpretation Comments Phosphorus (test code = Phosphorus) 3.8 2.5-4.5 [facility]2015-08-05 08:51:00 Test Item Value Reference Range Interpretation Comments Magnesium Lvl (test code = Magnesium 1.6 1.8-2.4 Lvl) [facility]2015-08-05 08:51:00 Test Item Value Reference Range Interpretation Comments eGFR (test code = eGFR) 104 [facility]2015-08-05 08:51:00 Test Item Value Reference Range Interpretation Comments Creatinine Lvl (test code = Creatinine 0.8 0.5-1.4 Lvl) [facility]2015-08-05 08:51:00 Test Item Value Reference Range Interpretation Comments Sodium Lvl (test code = Sodium Lvl) 140 135-145 [facility]2015-08-05 08:51:00 Test Item Value Reference Range Interpretation Comments CO2 (test code = CO2) 21 24-32 [facility]2015-08-05 08:51:00 Test Item Value Reference Range Interpretation Comments Chloride Lvl (test code = Chloride Lvl) 108 95-109 [facility]2015-08-05 08:51:00 Test Item Value Reference Range Interpretation Comments Calcium Lvl (test code = Calcium Lvl) 8.2 8.5-10.5 [facility]2015-08-05 08:51:00 Test Item Value Reference Range Interpretation Comments AGAP (test code = AGAP) 14.8 10.0-20.0 [facility]2015-08-05 08:51:00 Test Item Value Reference Range Interpretation Comments Total Protein (test code = Total 6.1 6.4-8.4 Protein) [facility]2015-08-05 08:51:00 Test Item Value Reference Range Interpretation Comments Globulin (test code = Globulin) 3.3 2.0-4.0 [facility]2015-08-05 08:51:00 Test Item Value Reference Range Interpretation Comments Albumin Lvl (test code = Albumin Lvl) 2.8 3.5-5.0 [facility]2015-08-05 08:51:00 Test Item Value Reference Range Interpretation Comments ALT (test code = ALT) 19 See_Comment [Auto mated message] The system which ge nerated this result transmit owen reference range : <=65. The reference range was not used to interpr et this result as fredi l/abnormal. [facility]2015-08-05 08:51:00 Test Item Value Reference Range Interpretation Comments A/G Ratio (test code = A/G Ratio) 0.8 0.7-1.6 [facility]2015-08-05 08:51:00 Test Item Value Reference Range Interpretation Comments B/C Ratio (test code = B/C Ratio) 18 6-25 [facility]2015-08-05 08:51:00 Test Item Value Reference Range Interpretation Comments Bili Total (test code = Bili Total) 0.4 0.2-1.3 [place] 413505-08-05 08:51:00 Test Item Value Reference Range Interpretation Comments Alk Phos (test code = Alk Phos) 87 39-136 [facility]2015-08-05 08:51:00 Test Item Value Reference Range Interpretation Comments AST (test code = AST) 14 See_Comment [Auto mated message] The system which ge nerated this result transmit owen reference range : <=37. The reference range was not used to interpr et this result as fredi l/abnormal. [facility]2015-08-05 08:51:00 Test Item Value Reference Range Interpretation Comments Glucose Lvl (test code = Glucose Lvl) 253 70-99 [facility]2015-08-05 08:51:00 Test Item Value Reference Range Interpretation Comments BUN (test code = BUN) 14 7-22 [facility] HospitalBpzrtggIIDAHKXKHN0720-82-13 08:51:00 Test Item Value Reference Range Interpretation Comments PT (test code = PT) 12.4 s 12.0-14.7 [facility] HospitalQdmvzocCXYSLHCOCZ6225-90-78 08:51:00 Test Item Value Reference Range Interpretation Comments PTT (test code = PTT) 23.0 s 22.9-35.8 [facility] HospitalKlxjhjgNBBQKXVZZI2728-22-98 08:51:00 Test Item Value Reference Range Interpretation Comments INR (test code = INR) 0.93 0.85-1.17 [facility] HospitalJetbqtaBPMDUWLHLK9033-85-38 08:51:00 Test Item Value Reference Range Interpretation Comments MPV (test code = MPV) 8.9 7.4-10.4 [facility] HospitalXzephhuYRANZMSDAK4354-63-63 08:51:00 Test Item Value Reference Range Interpretation Comments RDW (test code = RDW) 13.7 11.5-14.5 [facility] HospitalRproyvnPJIZPPOTNQ2253-71-96 08:51:00 Test Item Value Reference Range Interpretation Comments MCHC (test code = MCHC) 33.6 32.0-36.0 [facility] HospitalYjdubkcXUEWRVLUSC2119-12-16 08:51:00 Test Item Value Reference Range Interpretation Comments Platelet (test code = Platelet) 242 133-450 [facility] HospitalBkazkefQSTQDUPNIO0372-49-82 08:51:00 Test Item Value Reference Range Interpretation Comments RBC (test code = RBC) 3.80 4.20-5.40 [facility] HospitalDtamyvxMHVNJMCWZA5867-68-78 08:51:00 Test Item Value Reference Range Interpretation Comments WBC (test code = WBC) 6.2 3.7-10.4 [facility] HospitalFkdhcxoPKKKZIZKPP0153-97-35 08:51:00 Test Item Value Reference Range Interpretation Comments Hgb (test code = Hgb) 12.5 12.0-16.0 [facility] HospitalJlpjdbhNSBKUUVLHF1104-90-03 08:51:00 Test Item Value Reference Range Interpretation Comments MCV (test code = MCV) 98.3 80.0-98.0 [facility] HospitalQuvdbbbMWMDSOOZZN8411-31-77 08:51:00 Test Item Value Reference Range Interpretation Comments Hct (test code = Hct) 37.3 36.0-48.0 [facility] HospitalRrklbxdFURGNQVGUI5005-95-39 08:51:00 Test Item Value Reference Range Interpretation Comments MCH (test code = MCH) 33.0 pg 27.0-31.0 [facility] HospitalCxsftysBDHLJKIRKK1576-45-76 08:51:00 Test Item Value Reference Range Interpretation Comments Basophils # (test code 0.1 See_Comment [Aut omated message] The = Basophils #) system which generated this result tra nsmitted reference range : <=0.2. The reference r jase was not used to int erpret this result as normal/abnormal . [facility] HospitalNxfbawmEUYAXERNGN6531-83-19 08:51:00 Test Item Value Reference Range Interpretation Comments Eosinophils # (test code 0.5 See_Comment [A utomated message] The = Eosinophils #) system whic h generated this result tra nsmitted reference range : <=0.5. The reference r jase was not used to int erpret this result as normal/abnormal . [facility] HospitalJrmzzvlDOTKVOFPLK2431-51-85 08:51:00 Test Item Value Reference Range Interpretation Comments Monocytes # (test code 0.7 See_Comment [Aut omated message] The = Monocytes #) system which generated this result tra nsmitted reference range : <=0.8. The reference r jase was not used to int erpret this result as normal/abnormal . [facility] HospitalRorohexXMPOLXHJHI6091-40-02 08:51:00 Test Item Value Reference Range Interpretation Comments Lymphocytes # (test code = Lymphocytes 1.7 1.0-5.5 #) [facility] HospitalWiefutlBRRMLJUIMR4729-18-73 08:51:00 Test Item Value Reference Range Interpretation Comments Segs-Bands # (test code = Segs-Bands #) 3.2 1.5-8.1 [facility] HospitalSfgghofQOMQYSEKNA8915-45-44 08:51:00 Test Item Value Reference Range Interpretation Comments Monocytes (test code = Monocytes) 11.8 2.0-12.0 [facility] HospitalQwanpwjSFFSLQZOFB5527-59-55 08:51:00 Test Item Value Reference Range Interpretation Comments Basophils (test code = 1.3 See_Comment [Aut omated message] The Basophils) system which ge nerated this result tra nsmitted reference range : <=1.0. The reference r jase was not used to int erpret this result as normal/abnormal . [facility] HospitalRpsdelpABRRDALPOT7303-24-99 08:51:00 Test Item Value Reference Range Interpretation Comments Eosinophils (test code = 7.8 See_Comment [A utomated message] The Eosinophils) system which ge nerated this result tra nsmitted reference range : <=4.0. The reference r jase was not used to int erpret this result as normal/abnormal . [facility] HospitalHoerrgkUFJBMRKABH1066-99-22 08:51:00 Test Item Value Reference Range Interpretation Comments Lymphocytes (test code = Lymphocytes) 28.1 20.0-40.0 [facility] HospitalCfxxhlyZPLJBBNNEL6061-71-71 08:51:00 Test Item Value Reference Range Interpretation Comments Segs (test code = Segs) 51.0 45.0-75.0 [facility]2015-08-05 08:51:00 Test Item Value Reference Range Interpretation Comments Phosphorus (test code = Phosphorus) 3.8 2.5-4.5 [facility] [facility]2015-08-05 08:51:00 Test Item Value Reference Range Interpretation Comments Magnesium Lvl (test code = Magnesium 1.6 1.8-2.4 Lvl) [facility]2015-08-05 08:51:00 Test Item Value Reference Range Interpretation Comments eGFR (test code = eGFR) 104 [facility]2015-08-05 08:51:00 Test Item Value Reference Range Interpretation Comments Creatinine Lvl (test code = Creatinine 0.8 0.5-1.4 Lvl) [facility]2015-08-05 08:51:00 Test Item Value Reference Range Interpretation Comments Sodium Lvl (test code = Sodium Lvl) 140 135-145 [facility]2015-08-05 08:51:00 Test Item Value Reference Range Interpretation Comments CO2 (test code = CO2) 21 24-32 [facility]2015-08-05 08:51:00 Test Item Value Reference Range Interpretation Comments Chloride Lvl (test code = Chloride Lvl) 108 95-109 [facility]2015-08-05 08:51:00 Test Item Value Reference Range Interpretation Comments Calcium Lvl (test code = Calcium Lvl) 8.2 8.5-10.5 [facility]2015-08-05 08:51:00 Test Item Value Reference Range Interpretation Comments AGAP (test code = AGAP) 14.8 10.0-20.0 [facility]2015-08-05 08:51:00 Test Item Value Reference Range Interpretation Comments Total Protein (test code = Total 6.1 6.4-8.4 Protein) [facility]2015-08-05 08:51:00 Test Item Value Reference Range Interpretation Comments Globulin (test code = Globulin) 3.3 2.0-4.0 [facility]2015-08-05 08:51:00 Test Item Value Reference Range Interpretation Comments Albumin Lvl (test code = Albumin Lvl) 2.8 3.5-5.0 [facility]2015-08-05 08:51:00 Test Item Value Reference Range Interpretation Comments ALT (test code = ALT) 19 See_Comment [Auto mated message] The system which ge nerated this result transmit owen reference range : <=65. The reference range was not used to interpr et this result as fredi l/abnormal. [facility]2015-08-05 08:51:00 Test Item Value Reference Range Interpretation Comments A/G Ratio (test code = A/G Ratio) 0.8 0.7-1.6 [facility]2015-08-05 08:51:00 Test Item Value Reference Range Interpretation Comments B/C Ratio (test code = B/C Ratio) 18 6-25 [place] 413505-08-05 08:51:00 Test Item Value Reference Range Interpretation Comments Bili Total (test code = Bili Total) 0.4 0.2-1.3 [facility]2015-08-05 08:51:00 Test Item Value Reference Range Interpretation Comments Alk Phos (test code = Alk Phos) 87 39-136 [facility]2015-08-05 08:51:00 Test Item Value Reference Range Interpretation Comments AST (test code = AST) 14 See_Comment [Auto mated message] The system which ge nerated this result transmit owen reference range : <=37. The reference range was not used to interpr et this result as fredi l/abnormal. [facility]2015-08-05 08:51:00 Test Item Value Reference Range Interpretation Comments Glucose Lvl (test code = Glucose Lvl) 253 70-99 [facility]2015-08-05 08:51:00 Test Item Value Reference Range Interpretation Comments BUN (test code = BUN) 14 7-22 [facility]QwcvwfyXSUNOJLAOI0653-84-82 08:51:00 Test Item Value Reference Range Interpretation Comments PT (test code = PT) 12.4 s 12.0-14.7 [facility] HospitalYtnlhhcXLELAKFYKM0648-69-63 08:51:00 Test Item Value Reference Range Interpretation Comments PTT (test code = PTT) 23.0 s 22.9-35.8 [facility] HospitalFuzdfcvGMTWEQFUFY6804-03-00 08:51:00 Test Item Value Reference Range Interpretation Comments INR (test code = INR) 0.93 0.85-1.17 [facility] HospitalZutdhdgRHKRRLFNAT9087-89-61 08:51:00 Test Item Value Reference Range Interpretation Comments MPV (test code = MPV) 8.9 7.4-10.4 [facility] HospitalYusqsoyRZXONRXNAU9521-54-81 08:51:00 Test Item Value Reference Range Interpretation Comments RDW (test code = RDW) 13.7 11.5-14.5 [facility] HospitalUjydfvqTERHSTRKHB1309-92-84 08:51:00 Test Item Value Reference Range Interpretation Comments MCHC (test code = MCHC) 33.6 32.0-36.0 [facility] HospitalQltgnqxQCCFVWNVOD5011-52-58 08:51:00 Test Item Value Reference Range Interpretation Comments Platelet (test code = Platelet) 242 133-450 [facility] HospitalOaqlwzvLEHWUHKXND7990-79-31 08:51:00 Test Item Value Reference Range Interpretation Comments RBC (test code = RBC) 3.80 4.20-5.40 [facility] HospitalIbgixoxLAGGMMODFB9627-29-56 08:51:00 Test Item Value Reference Range Interpretation Comments WBC (test code = WBC) 6.2 3.7-10.4 [facility] HospitalNxxvtarUKHXWCJPQA8886-98-79 08:51:00 Test Item Value Reference Range Interpretation Comments Hgb (test code = Hgb) 12.5 12.0-16.0 [facility] HospitalRlfpuqcDGWDSTVZOT9752-36-73 08:51:00 Test Item Value Reference Range Interpretation Comments MCV (test code = MCV) 98.3 80.0-98.0 [facility] HospitalVndxjcbINIVLPJZBA0492-53-20 08:51:00 Test Item Value Reference Range Interpretation Comments Hct (test code = Hct) 37.3 36.0-48.0 [facility] HospitalVchlzwzPVQDIVACWY3901-03-36 08:51:00 Test Item Value Reference Range Interpretation Comments MCH (test code = MCH) 33.0 pg 27.0-31.0 [facility] HospitalZlyfhqlWCZYRQQBOD7385-26-95 08:51:00 Test Item Value Reference Range Interpretation Comments Basophils # (test code 0.1 See_Comment [Aut omated message] The = Basophils #) system which generated this result tra nsmitted reference range : <=0.2. The reference r jase was not used to int erpret this result as normal/abnormal . [facility] HospitalGjldtmeJWAYZYLWYW4484-07-29 08:51:00 Test Item Value Reference Range Interpretation Comments Eosinophils # (test code 0.5 See_Comment [A utomated message] The = Eosinophils #) system whic h generated this result tra nsmitted reference range : <=0.5. The reference r jase was not used to int erpret this result as normal/abnormal . [facility] HospitalXasbdfwMECSEGIHJV5586-32-90 08:51:00 Test Item Value Reference Range Interpretation Comments Monocytes # (test code 0.7 See_Comment [Aut omated message] The = Monocytes #) system which generated this result tra nsmitted reference range : <=0.8. The reference r jase was not used to int erpret this result as normal/abnormal . [facility] HospitalHspwgclOOLZVTSTOF2595-26-47 08:51:00 Test Item Value Reference Range Interpretation Comments Lymphocytes # (test code = Lymphocytes 1.7 1.0-5.5 #) [facility] HospitalBucxbgmBKRNYPBAIO4797-44-57 08:51:00 Test Item Value Reference Range Interpretation Comments Segs-Bands # (test code = Segs-Bands #) 3.2 1.5-8.1 [facility] HospitalFceuviqMSZCZVFQMY3727-12-59 08:51:00 Test Item Value Reference Range Interpretation Comments Monocytes (test code = Monocytes) 11.8 2.0-12.0 [facility] HospitalHnvgqrrRZSGWVTPNU8061-22-08 08:51:00 Test Item Value Reference Range Interpretation Comments Basophils (test code = 1.3 See_Comment [Aut omated message] The Basophils) system which ge nerated this result tra nsmitted reference range : <=1.0. The reference r jase was not used to int erpret this result as normal/abnormal . [facility] HospitalLobbxksGUDCJBCEOX6993-69-94 08:51:00 Test Item Value Reference Range Interpretation Comments Eosinophils (test code = 7.8 See_Comment [A utomated message] The Eosinophils) system which ge nerated this result tra nsmitted reference range : <=4.0. The reference r jase was not used to int erpret this result as normal/abnormal . [facility] HospitalCmxacepETCUPPHRWU9819-25-95 08:51:00 Test Item Value Reference Range Interpretation Comments Lymphocytes (test code = Lymphocytes) 28.1 20.0-40.0 [facility] HospitalMftcxqrZZROKJJYPY2482-36-23 08:51:00 Test Item Value Reference Range Interpretation Comments Segs (test code = Segs) 51.0 45.0-75.0 [facility]2015-08-05 08:51:00 Test Item Value Reference Range Interpretation Comments Phosphorus (test code = Phosphorus) 3.8 2.5-4.5 [facility]2015-08-05 08:51:00 Test Item Value Reference Range Interpretation Comments Magnesium Lvl (test code = Magnesium 1.6 1.8-2.4 Lvl) [facility]2015-08-05 08:51:00 Test Item Value Reference Range Interpretation Comments eGFR (test code = eGFR) 104 [facility]2015-08-05 08:51:00 Test Item Value Reference Range Interpretation Comments Creatinine Lvl (test code = Creatinine 0.8 0.5-1.4 Lvl) [facility]2015-08-05 08:51:00 Test Item Value Reference Range Interpretation Comments Sodium Lvl (test code = Sodium Lvl) 140 135-145 [facility]2015-08-05 08:51:00 Test Item Value Reference Range Interpretation Comments CO2 (test code = CO2) 21 24-32 [facility]2015-08-05 08:51:00 Test Item Value Reference Range Interpretation Comments Chloride Lvl (test code = Chloride Lvl) 108 95-109 [facility]2015-08-05 08:51:00 Test Item Value Reference Range Interpretation Comments Calcium Lvl (test code = Calcium Lvl) 8.2 8.5-10.5 [facility]2015-08-05 08:51:00 Test Item Value Reference Range Interpretation Comments AGAP (test code = AGAP) 14.8 10.0-20.0 [facility]2015-08-05 08:51:00 Test Item Value Reference Range Interpretation Comments Total Protein (test code = Total 6.1 6.4-8.4 Protein) [facility]2015-08-05 08:51:00 Test Item Value Reference Range Interpretation Comments Globulin (test code = Globulin) 3.3 2.0-4.0 [facility]2015-08-05 08:51:00 Test Item Value Reference Range Interpretation Comments Albumin Lvl (test code = Albumin Lvl) 2.8 3.5-5.0 [facility]2015-08-05 08:51:00 Test Item Value Reference Range Interpretation Comments ALT (test code = ALT) 19 See_Comment [Auto mated message] The system which ge nerated this result transmit owen reference range : <=65. The reference range was not used to interpr et this result as fredi l/abnormal. [facility]2015-08-05 08:51:00 Test Item Value Reference Range Interpretation Comments A/G Ratio (test code = A/G Ratio) 0.8 0.7-1.6 [place] 413505-08-05 08:51:00 Test Item Value Reference Range Interpretation Comments B/C Ratio (test code = B/C Ratio) 18 6-25 [facility]2015-08-05 08:51:00 Test Item Value Reference Range Interpretation Comments Bili Total (test code = Bili Total) 0.4 0.2-1.3 [facility]2015-08-05 08:51:00 Test Item Value Reference Range Interpretation Comments Alk Phos (test code = Alk Phos) 87 39-136 [facility]2015-08-05 08:51:00 Test Item Value Reference Range Interpretation Comments AST (test code = AST) 14 See_Comment [Auto mated message] The system which ge nerated this result transmit owen reference range : <=37. The reference range was not used to interpr et this result as fredi l/abnormal. [facility]2015-08-05 08:51:00 Test Item Value Reference Range Interpretation Comments Glucose Lvl (test code = Glucose Lvl) 253 70-99 [facility]2015-08-05 08:51:00 Test Item Value Reference Range Interpretation Comments BUN (test code = BUN) 14 7-22 [facility] HospitalAwimpyvVWMJTJIKBL6208-67-84 08:51:00 Test Item Value Reference Range Interpretation Comments PT (test code = PT) 12.4 s 12.0-14.7 [facility] HospitalNzpaeeaCOJIUNHSTJ5722-82-98 08:51:00 Test Item Value Reference Range Interpretation Comments PTT (test code = PTT) 23.0 s 22.9-35.8 [facility] HospitalFjxrgerIXCPRXRYWD6793-34-78 08:51:00 Test Item Value Reference Range Interpretation Comments INR (test code = INR) 0.93 0.85-1.17 [facility] HospitalPpfusuiMLDGASXUDG6576-57-67 08:51:00 Test Item Value Reference Range Interpretation Comments MPV (test code = MPV) 8.9 7.4-10.4 [facility] HospitalCklpetoOSGHOOBHEO9993-24-54 08:51:00 Test Item Value Reference Range Interpretation Comments RDW (test code = RDW) 13.7 11.5-14.5 [facility] HospitalAbufjnxKMBOYRMWWK1119-94-24 08:51:00 Test Item Value Reference Range Interpretation Comments MCHC (test code = MCHC) 33.6 32.0-36.0 [facility] HospitalVjtwmhzCTXFFEEWNC8097-50-52 08:51:00 Test Item Value Reference Range Interpretation Comments Platelet (test code = Platelet) 242 133-450 [place] 864485-08-05 08:51:00 Test Item Value Reference Range Interpretation Comments RBC (test code = RBC) 3.80 4.20-5.40 [facility] HospitalEkihkukJREIOJKNVQ2534-93-71 08:51:00 Test Item Value Reference Range Interpretation Comments WBC (test code = WBC) 6.2 3.7-10.4 [facility] HospitalFmryfinOJJGZBCBER4619-83-86 08:51:00 Test Item Value Reference Range Interpretation Comments Hgb (test code = Hgb) 12.5 12.0-16.0 [facility] HospitalRaffwfeDXDZIXJVNZ6009-01-84 08:51:00 Test Item Value Reference Range Interpretation Comments MCV (test code = MCV) 98.3 80.0-98.0 [facility] HospitalHxzxccyZGEIQVOCEZ8279-95-31 08:51:00 Test Item Value Reference Range Interpretation Comments Hct (test code = Hct) 37.3 36.0-48.0 [facility] HospitalAvcssiuPHIVYQGIQY6241-73-65 08:51:00 Test Item Value Reference Range Interpretation Comments MCH (test code = MCH) 33.0 pg 27.0-31.0 [facility] HospitalFcreadeWMPYWSWKSE2216-55-78 08:51:00 Test Item Value Reference Range Interpretation Comments Basophils # (test code 0.1 See_Comment [Aut omated message] The = Basophils #) system which generated this result tra nsmitted reference range : <=0.2. The reference r jase was not used to int erpret this result as normal/abnormal . [facility] HospitalQtakdlwYGJZHPGVSM7204-70-72 08:51:00 Test Item Value Reference Range Interpretation Comments Eosinophils # (test code 0.5 See_Comment [A utomated message] The = Eosinophils #) system whic h generated this result tra nsmitted reference range : <=0.5. The reference r jase was not used to int erpret this result as normal/abnormal . [facility] HospitalGxyqsvxLUTNLZVVLC6090-92-65 08:51:00 Test Item Value Reference Range Interpretation Comments Monocytes # (test code 0.7 See_Comment [Aut omated message] The = Monocytes #) system which generated this result tra nsmitted reference range : <=0.8. The reference r jase was not used to int erpret this result as normal/abnormal . [facility] HospitalPnithjtOQYHNCOIFR5756-26-10 08:51:00 Test Item Value Reference Range Interpretation Comments Lymphocytes # (test code = Lymphocytes 1.7 1.0-5.5 #) [facility] HospitalNkvbcyhAOHKBXPGUI8522-33-51 08:51:00 Test Item Value Reference Range Interpretation Comments Segs-Bands # (test code = Segs-Bands #) 3.2 1.5-8.1 [facility] HospitalBslthtnCFXEVCTSYP8753-00-74 08:51:00 Test Item Value Reference Range Interpretation Comments Monocytes (test code = Monocytes) 11.8 2.0-12.0 [facility] HospitalIgaqarhTLYWVMBXST7922-80-39 08:51:00 Test Item Value Reference Range Interpretation Comments Basophils (test code = 1.3 See_Comment [Aut omated message] The Basophils) system which ge nerated this result tra nsmitted reference range : <=1.0. The reference r jase was not used to int erpret this result as normal/abnormal . [facility] HospitalVqayuceNNBICVPIJP8037-57-45 08:51:00 Test Item Value Reference Range Interpretation Comments Eosinophils (test code = 7.8 See_Comment [A utomated message] The Eosinophils) system which ge nerated this result tra nsmitted reference range : <=4.0. The reference r jase was not used to int erpret this result as normal/abnormal . [facility] HospitalYxgegvgKJIHEIUOEH3322-54-83 08:51:00 Test Item Value Reference Range Interpretation Comments Lymphocytes (test code = Lymphocytes) 28.1 20.0-40.0 [facility] HospitalEcedtanGBXJTSSZYU7932-57-42 08:51:00 Test Item Value Reference Range Interpretation Comments Segs (test code = Segs) 51.0 45.0-75.0 [facility] IPRRFVZ4544-06-58 20:46:00 Test Item Value Reference Range Interpretation Comments CK MB (test code = CK MB) 1.0 0.5-3.6 [facility] BOBRMMB3129-12-93 20:46:00 Test Item Value Reference Range Interpretation Comments Total CK (test code = Total CK) 80 12-191 [facility] JRXPELR6491-40-51 20:46:00 Test Item Value Reference Range Interpretation Comments Troponin-I (test code no gt See_Comment [Auto mated message] The = Troponin-I) system which g enerated this result transmit owen reference range : <=0.40. The reference r jase was not used to interpr et this result as fredi l/abnormal. [facility] CenterVidFall.comCARDIAC HWHVHTT9988-36-78 20:46:00 Test Item Value Reference Range Interpretation Comments CK MB Index (test 1.2 See_Comment [Automate d message] The code = CK MB Index) system w [email or web address] generated this result transmit owen reference range : <=2.5. The reference range was not used to interpr et this result as fredi l/abnormal. [facility] [employer] [id number] 20:46:00 Test Item Value Reference Range Interpretation Comments eGFR (test code = eGFR) 79 [facility] [employer] [id number] 20:46:00 Test Item Value Reference Range Interpretation Comments Calcium Lvl (test code = Calcium Lvl) 8.7 8.5-10.5 [facility] [employer] [id number] 20:46:00 Test Item Value Reference Range Interpretation Comments Total Protein (test code = Total 7.3 6.4-8.4 Protein) [facility] [id number] 20:46:00 Test Item Value Reference Range Interpretation Comments B/C Ratio (test code = B/C Ratio) 21 6-25 [facility] [employer] [id number] 20:46:00 Test Item Value Reference Range Interpretation Comments Albumin Lvl (test code = Albumin Lvl) 3.6 3.5-5.0 [facility] [employer] [id number] 20:46:00 Test Item Value Reference Range Interpretation Comments Globulin (test code = Globulin) 3.7 2.0-4.0 [facility] [employer] [id number] 20:46:00 Test Item Value Reference Range Interpretation Comments AST (test code = AST) 19 See_Comment [Auto mated message] The system which ge nerated this result transmit owen reference range : <=37. The reference range was not used to interpr et this result as fredi l/abnormal. [facility] [employer] [id number] 20:46:00 Test Item Value Reference Range Interpretation Comments ALT (test code = ALT) 25 See_Comment [Auto mated message] The system which ge nerated this result transmit owen reference range : <=65. The reference range was not used to interpr et this result as fredi l/abnormal. [facility]2015-08-04 20:46:00 Test Item Value Reference Range Interpretation Comments A/G Ratio (test code = A/G Ratio) 1.0 0.7-1.6 [facility]2015-08-04 20:46:00 Test Item Value Reference Range Interpretation Comments Bili Total (test code = Bili Total) 0.6 0.2-1.3 [facility]2015-08-04 20:46:00 Test Item Value Reference Range Interpretation Comments Alk Phos (test code = Alk Phos) 120 39-136 [facility]2015-08-04 20:46:00 Test Item Value Reference Range Interpretation Comments Sodium Lvl (test code = Sodium Lvl) 129 135-145 [facility]2015-08-04 20:46:00 Test Item Value Reference Range Interpretation Comments AGAP (test code = AGAP) 24.3 10.0-20.0 [facility]2015-08-04 20:46:00 Test Item Value Reference Range Interpretation Comments CO2 (test code = CO2) 18 24-32 [facility]2015-08-04 20:46:00 Test Item Value Reference Range Interpretation Comments Chloride Lvl (test code = Chloride Lvl) 92 95-109 [facility]2015-08-04 20:46:00 Test Item Value Reference Range Interpretation Comments Creatinine Lvl (test code = Creatinine 1.0 0.5-1.4 Lvl) [facility]2015-08-04 20:46:00 Test Item Value Reference Range Interpretation Comments Glucose Lvl (test code = Glucose Lvl) 686 70-99 [facility]2015-08-04 20:46:00 Test Item Value Reference Range Interpretation Comments BUN (test code = BUN) 21 7-22 [facility]2015-08-04 20:46:00 Test Item Value Reference Range Interpretation Comments Ketone Quantitative (test code = Ketone 4.09 Quantitative) [facility]2015-08-04 20:46:00 Test Item Value Reference Range Interpretation Comments Phosphorus (test code = Phosphorus) 3.7 2.5-4.5 [facility]2015-08-04 20:46:00 Test Item Value Reference Range Interpretation Comments Magnesium Lvl (test code = Magnesium 2.1 1.8-2.4 Lvl) [facility] HospitalUpqpfniTIQWOHZXIQ8884-43-94 20:46:00 Test Item Value Reference Range Interpretation Comments MCHC (test code = MCHC) 33.2 32.0-36.0 [facility] HospitalNbnthasHCPLJYDPBW5155-35-43 20:46:00 Test Item Value Reference Range Interpretation Comments RDW (test code = RDW) 13.6 11.5-14.5 [facility] HospitalJtumlxkOLYGGYKHFW1536-46-83 20:46:00 Test Item Value Reference Range Interpretation Comments RBC (test code = RBC) 4.23 4.20-5.40 [facility] HospitalEddzzkwXVXADZJSFZ5532-92-17 20:46:00 Test Item Value Reference Range Interpretation Comments WBC (test code = WBC) 6.9 3.7-10.4 [facility] HospitalFquismaSLRZGOXKIM7781-86-80 20:46:00 Test Item Value Reference Range Interpretation Comments Hct (test code = Hct) 42.2 36.0-48.0 [facility] HospitalMjtylgcREOGYQOQZR4618-05-90 20:46:00 Test Item Value Reference Range Interpretation Comments Hgb (test code = Hgb) 14.0 12.0-16.0 [facility] HospitalNyrpjhgBRXUELEVLH4782-95-00 20:46:00 Test Item Value Reference Range Interpretation Comments MPV (test code = MPV) 9.0 7.4-10.4 [facility] HospitalVdpwjrdIETAERVKYO1013-61-17 20:46:00 Test Item Value Reference Range Interpretation Comments Platelet (test code = Platelet) 279 133-450 [facility] HospitalXvidufqDQIGYAQFUS4928-99-69 20:46:00 Test Item Value Reference Range Interpretation Comments MCV (test code = MCV) 99.7 80.0-98.0 [facility] HospitalAldvqjmJLZGBGNDDS4640-29-04 20:46:00 Test Item Value Reference Range Interpretation Comments MCH (test code = MCH) 33.1 pg 27.0-31.0 [facility] HospitalQfsecrtAYSNHLJZRA3441-95-51 20:46:00 Test Item Value Reference Range Interpretation Comments Lymphocytes # (test code = Lymphocytes 1.2 1.0-5.5 #) [facility] HospitalIwaazbdAJMKJZBGKQ0112-91-56 20:46:00 Test Item Value Reference Range Interpretation Comments Segs (test code = Segs) 65.1 45.0-75.0 [facility] HospitalUmeyutbHTQNTAYYBL2184-17-25 20:46:00 Test Item Value Reference Range Interpretation Comments Lymphocytes (test code = Lymphocytes) 17.8 20.0-40.0 [facility] HospitalQiuctbdCHZHUQDWNN2730-98-49 20:46:00 Test Item Value Reference Range Interpretation Comments Basophils (test code = 0.7 See_Comment [Aut omated message] The Basophils) system which ge nerated this result tra nsmitted reference range : <=1.0. The reference r jase was not used to int erpret this result as normal/abnormal . [facility] HospitalYnuovfnBWDXGICJYI5785-53-08 20:46:00 Test Item Value Reference Range Interpretation Comments Eosinophils (test code = 5.3 See_Comment [A utomated message] The Eosinophils) system which ge nerated this result tra nsmitted reference range : <=4.0. The reference r jase was not used to int erpret this result as normal/abnormal . [id number] 20:46:00 Test Item Value Reference Range Interpretation Comments Monocytes (test code = Monocytes) 11.1 2.0-12.0 [facility] Ho[id number] 20:46:00 Test Item Value Reference Range Interpretation Comments Eosinophils # (test code 0.4 See_Comment [A utomated message] The = Eosinophils #) system whic h generated this result tra nsmitted reference range : <=0.5. The reference r jase was not used to int erpret this result as normal/abnormal . [facility] Ho[id number] 20:46:00 Test Item Value Reference Range Interpretation Comments Monocytes # (test code 0.8 See_Comment [Aut omated message] The = Monocytes #) system which generated this result tra nsmitted reference range : <=0.8. The reference r jase was not used to int erpret this result as normal/abnormal . [facility] HospitalQkcuxuhUWGVBGISBD1543-15-26 20:46:00 Test Item Value Reference Range Interpretation Comments Macrocyte (test code = 1+ *ABN*(12/19/14 3:46 Macrocyte) PM) [facility] HospitalDhjylcqEKCYCDHJJT4413-18-33 20:46:00 Test Item Value Reference Range Interpretation Comments Segs-Bands # (test code = Segs-Bands #) 4.5 1.5-8.1 [facility] [employer] [id number] 20:46:00 Test Item Value Reference Range Interpretation Comments CK MB (test code = CK MB) 1.0 0.5-3.6 [facility] [id number] 20:46:00 Test Item Value Reference Range Interpretation Comments Total CK (test code = Total CK) 80 12-191 [facility] [employer] [id number] 20:46:00 Test Item Value Reference Range Interpretation Comments Troponin-I (test code no gt See_Comment [Auto mated message] The = Troponin-I) system which g enerated this result transmit owen reference range : <=0.40. The reference r jase was not used to interpr et this result as fredi l/abnormal. [facility]2015-08-04 20:46:00 Test Item Value Reference Range Interpretation Comments CK MB Index (test 1.2 See_Comment [Automate d message] The code = CK MB Index) system w the [facility] generated this result transmit owen reference range : <=2.5. The reference range was not used to interpr et this result as fredi l/abnormal. [employer] [id number] 20:46:00 Test Item Value Reference Range Interpretation Comments eGFR (test code = eGFR) 79 [facility] [employer] [id number] 20:46:00 Test Item Value Reference Range Interpretation Comments Calcium Lvl (test code = Calcium Lvl) 8.7 8.5-10.5 [facility] [employer] [id number] 20:46:00 Test Item Value Reference Range Interpretation Comments Total Protein (test code = Total 7.3 6.4-8.4 Protein) [facility] [employer] [id number] 20:46:00 Test Item Value Reference Range Interpretation Comments B/C Ratio (test code = B/C Ratio) 21 6-25 [facility] [employer] [id number] 20:46:00 Test Item Value Reference Range Interpretation Comments Albumin Lvl (test code = Albumin Lvl) 3.6 3.5-5.0 [facility] [employer] [id number] 20:46:00 Test Item Value Reference Range Interpretation Comments Globulin (test code = Globulin) 3.7 2.0-4.0 [facility] [employer] [id number] 20:46:00 Test Item Value Reference Range Interpretation Comments AST (test code = AST) 19 See_Comment [Auto mated message] The system which ge nerated this result transmit owen reference range : <=37. The reference range was not used to interpr et this result as fredi l/abnormal. [facility] [employer] [id number] 20:46:00 Test Item Value Reference Range Interpretation Comments ALT (test code = ALT) 25 See_Comment [Auto mated message] The system which ge nerated this result transmit owen reference range : <=65. The reference range was not used to interpr et this result as fredi l/abnormal. [facility] [employer] [id number] 20:46:00 Test Item Value Reference Range Interpretation Comments A/G Ratio (test code = A/G Ratio) 1.0 0.7[facility]6 [id number] 20:46:00 Test Item Value Reference Range Interpretation Comments Bili Total (test code = Bili Total) 0.6 0.2-1.3 [facility] [employer] [id number] 20:46:00 Test Item Value Reference Range Interpretation Comments Alk Phos (test code = Alk Phos) 120 39-136 [facility] [employer] [id number] 20:46:00 Test Item Value Reference Range Interpretation Comments Sodium Lvl (test code = Sodium Lvl) 129 135-145 [facility] [id number] 20:46:00 Test Item Value Reference Range Interpretation Comments AGAP (test code = AGAP) 24.3 10.0-20.0 [facility] [employer] [id number] 20:46:00 Test Item Value Reference Range Interpretation Comments CO2 (test code = CO2) 18 24-32 [facility] [employer] [id number] 20:46:00 Test Item Value Reference Range Interpretation Comments Chloride Lvl (test code = Chloride Lvl) 92 95-109 [facility] [id number] 20:46:00 Test Item Value Reference Range Interpretation Comments Creatinine Lvl (test code = Creatinine 1.0 0.5-1.4 Lvl) [facility] [id number] 20:46:00 Test Item Value Reference Range Interpretation Comments Glucose Lvl (test code = Glucose Lvl) 686 70-99 [facility]2015-08-04 20:46:00 Test Item Value Reference Range Interpretation Comments BUN (test code = BUN) 21 7-22 [facility]2015-08-04 20:46:00 Test Item Value Reference Range Interpretation Comments Ketone Quantitative (test code = Ketone 4.09 Quantitative) [facility]2015-08-04 20:46:00 Test Item Value Reference Range Interpretation Comments Phosphorus (test code = Phosphorus) 3.7 2.5-4.5 [facility]2015-08-04 20:46:00 Test Item Value Reference Range Interpretation Comments Magnesium Lvl (test code = Magnesium 2.1 1.8-2.4 Lvl) [facility] Ho[id number] 20:46:00 Test Item Value Reference Range Interpretation Comments MCHC (test code = MCHC) 33.2 32.0-36.0 [facility] HospitalJoetnbbRMYLOFMJBB6946-42-72 20:46:00 Test Item Value Reference Range Interpretation Comments RDW (test code = RDW) 13.6 11.5-14.5 [facility] HospitalEwbphuaAVDEBDAASN2366-58-29 20:46:00 Test Item Value Reference Range Interpretation Comments RBC (test code = RBC) 4.23 4.20-5.40 [facility] HospitalGshzoeuNRXMRWHAKW5841-21-89 20:46:00 Test Item Value Reference Range Interpretation Comments WBC (test code = WBC) 6.9 3.7-10.4 [facility] HospitalKefynqeGQSTVGWZWR2687-22-65 20:46:00 Test Item Value Reference Range Interpretation Comments Hct (test code = Hct) 42.2 36.0-48.0 [facility] Hos[id number] 20:46:00 Test Item Value Reference Range Interpretation Comments Hgb (test code = Hgb) 14.0 12.0-16.0 [facility] HospitalVvzvpmcSKLWHMVSLR7825-34-99 20:46:00 Test Item Value Reference Range Interpretation Comments MPV (test code = MPV) 9.0 7.4-10.4 [facility] Ho[id number] 20:46:00 Test Item Value Reference Range Interpretation Comments Platelet (test code = Platelet) 242 086-450 [facility] HospitalPrbngvePMTJGYNMYE2833-13-63 20:46:00 Test Item Value Reference Range Interpretation Comments MCV (test code = MCV) 99.7 80.0-98.0 [facility] HospitalFttozciYEHJNUNKCW3617-66-53 20:46:00 Test Item Value Reference Range Interpretation Comments MCH (test code = MCH) 33.1 pg 27.0-31.0 [facility] HospitalAtxvtqyRMDJDIGJZD4499-22-09 20:46:00 Test Item Value Reference Range Interpretation Comments Lymphocytes # (test code = Lymphocytes 1.2 1.0-5.5 #) [facility] HospitalWtztkorXDHFTNFBNX7064-97-86 20:46:00 Test Item Value Reference Range Interpretation Comments Segs (test code = Segs) 65.1 45.0-75.0 [facility] HospitalTamcjzdGGAJUBGUTR7805-31-77 20:46:00 Test Item Value Reference Range Interpretation Comments Lymphocytes (test code = Lymphocytes) 17.8 20.0-40.0 [facility] HospitalPvpgvdiTCWKOYIYDO4885-84-59 20:46:00 Test Item Value Reference Range Interpretation Comments Basophils (test code = 0.7 See_Comment [Aut omated message] The Basophils) system which ge nerated this result tra nsmitted reference range : <=1.0. The reference r jase was not used to int erpret this result as normal/abnormal . [facility] HospitalRqtwivjUPPTCPDXFO1855-09-34 20:46:00 Test Item Value Reference Range Interpretation Comments Eosinophils (test code = 5.3 See_Comment [A utomated message] The Eosinophils) system which ge nerated this result tra nsmitted reference range : <=4.0. The reference r jase was not used to int erpret this result as normal/abnormal . [facility] HospitalGmwunyhYYLHXHMFHL4740-42-78 20:46:00 Test Item Value Reference Range Interpretation Comments Monocytes (test code = Monocytes) 11.1 2.0-12.0 [facility] HospitalKjldirmTFWZKHAZQT8976-06-29 20:46:00 Test Item Value Reference Range Interpretation Comments Eosinophils # (test code 0.4 See_Comment [A utomated message] The = Eosinophils #) system whic h generated this result tra nsmitted reference range : <=0.5. The reference r jase was not used to int erpret this result as normal/abnormal . [facility] HospitalGmcxgihRCDEWLDLSB8320-55-37 20:46:00 Test Item Value Reference Range Interpretation Comments Monocytes # (test code 0.8 See_Comment [Aut omated message] The = Monocytes #) system which generated this result tra nsmitted reference range : <=0.8. The reference r jase was not used to int erpret this result as normal/abnormal . [facility] BxrjuknCUKZEJXKYL6378-79-79 20:46:00 Test Item Value Reference Range Interpretation Comments Macrocyte (test code = 1+ *ABN*(12/19/14 3:46 Macrocyte) PM) [facility]RzgmldaRJVWYQVHBK8249-37-13 20:46:00 Test Item Value Reference Range Interpretation Comments Segs-Bands # (test code = Segs-Bands #) 4.5 1.5-8.1 [facility] [employer] [id number] 20:46:00 Test Item Value Reference Range Interpretation Comments CK MB (test code = CK MB) 1.0 0.5-3.6 [facility]2015-08-04 20:46:00 Test Item Value Reference Range Interpretation Comments Total CK (test code = Total CK) 80 12-191 [facility] [id number] 20:46:00 Test Item Value Reference Range Interpretation Comments Troponin-I (test code no gt See_Comment [Auto mated message] The = Troponin-I) system which g enerated this result transmit owen reference range : <=0.40. The reference r jase was not used to interpr et this result as fredi l/abnormal. [facility]2015-08-04 20:46:00 Test Item Value Reference Range Interpretation Comments CK MB Index (test 1.2 See_Comment [Automate d message] The code = CK MB Index) system w the [facility] generated this result transmit owen reference range : <=2.5. The reference range was not used to interpr et this result as fredi l/abnormal. [facility] [employer]2015-08-04 20:46:00 Test Item Value Reference Range Interpretation Comments eGFR (test code = eGFR) 79 [facility] [employer] [id number] 20:46:00 Test Item Value Reference Range Interpretation Comments Calcium Lvl (test code = Calcium Lvl) 8.7 8.5-10.5 [facility]2015-08-04 20:46:00 Test Item Value Reference Range Interpretation Comments Total Protein (test code = Total 7.3 6.4-8.4 Protein) [facility]2015-08-04 20:46:00 Test Item Value Reference Range Interpretation Comments B/C Ratio (test code = B/C Ratio) 21 6-25 [facility]2015-08-04 20:46:00 Test Item Value Reference Range Interpretation Comments Albumin Lvl (test code = Albumin Lvl) 3.6 3.5-5.0 [facility]2015-08-04 20:46:00 Test Item Value Reference Range Interpretation Comments Globulin (test code = Globulin) 3.7 2.0-4.0 [facility]2015-08-04 20:46:00 Test Item Value Reference Range Interpretation Comments AST (test code = AST) 19 See_Comment [Auto mated message] The system which ge nerated this result transmit owen reference range : <=37. The reference range was not used to interpr et this result as fredi l/abnormal. [facility]2015-08-04 20:46:00 Test Item Value Reference Range Interpretation Comments ALT (test code = ALT) 25 See_Comment [Auto mated message] The system which ge nerated this result transmit owen reference range : <=65. The reference range was not used to interpr et this result as fredi l/abnormal. [place]505-08-04 20:46:00 Test Item Value Reference Range Interpretation Comments A/G Ratio (test code = A/G Ratio) 1.0 0.7-1.6 [facility]2015-08-04 20:46:00 Test Item Value Reference Range Interpretation Comments Bili Total (test code = Bili Total) 0.6 0.2-1.3 [place] 413505-08-04 20:46:00 Test Item Value Reference Range Interpretation Comments Alk Phos (test code = Alk Phos) 120 39-136 [facility]2015-08-04 20:46:00 Test Item Value Reference Range Interpretation Comments Sodium Lvl (test code = Sodium Lvl) 129 135-145 [facility]2015-08-04 20:46:00 Test Item Value Reference Range Interpretation Comments AGAP (test code = AGAP) 24.3 10.0-20.0 [facility]2015-08-04 20:46:00 Test Item Value Reference Range Interpretation Comments CO2 (test code = CO2) 18 24-32 [facility]2015-08-04 20:46:00 Test Item Value Reference Range Interpretation Comments Chloride Lvl (test code = Chloride Lvl) 92 95-109 [facility]2015-08-04 20:46:00 Test Item Value Reference Range Interpretation Comments Creatinine Lvl (test code = Creatinine 1.0 0.5-1.4 Lvl) [facility]2015-08-04 20:46:00 Test Item Value Reference Range Interpretation Comments Glucose Lvl (test code = Glucose Lvl) 686 70-99 [facility]2015-08-04 20:46:00 Test Item Value Reference Range Interpretation Comments BUN (test code = BUN) 21 7-22 [facility]2015-08-04 20:46:00 Test Item Value Reference Range Interpretation Comments Ketone Quantitative (test code = Ketone 4.09 Quantitative) [facility]2015-08-04 20:46:00 Test Item Value Reference Range Interpretation Comments Phosphorus (test code = Phosphorus) 3.7 2.5-4.5 [facility]2015-08-04 20:46:00 Test Item Value Reference Range Interpretation Comments Magnesium Lvl (test code = Magnesium 2.1 1.8-2.4 Lvl) [facility] HospitalTsoynqmBPDVSCXWOW8889-98-16 20:46:00 Test Item Value Reference Range Interpretation Comments MCHC (test code = MCHC) 33.2 32.0-36.0 [facility] HospitalAgusnwdFMDRMLNJTM0969-03-35 20:46:00 Test Item Value Reference Range Interpretation Comments RDW (test code = RDW) 13.6 11.5-14.5 [facility] HospitalPydxggzLFWRGZIYQE2264-94-97 20:46:00 Test Item Value Reference Range Interpretation Comments RBC (test code = RBC) 4.23 4.20-5.40 [facility] HospitalEakvsxyVRHIWQIOKX0197-20-58 20:46:00 Test Item Value Reference Range Interpretation Comments WBC (test code = WBC) 6.9 3.7-10.4 [facility] HospitalWpoaedvVXLAXKLNTG5343-30-44 20:46:00 Test Item Value Reference Range Interpretation Comments Hct (test code = Hct) 42.2 36.0-48.0 [facility] HospitalBygkqruNIWSXTQNCE1546-73-51 20:46:00 Test Item Value Reference Range Interpretation Comments Hgb (test code = Hgb) 14.0 12.0-16.0 [facility] HospitalQgeglfvCPPCSZVZUF2455-98-02 20:46:00 Test Item Value Reference Range Interpretation Comments MPV (test code = MPV) 9.0 7.4-10.4 [facility] HospitalNjuhdxtZLEKSMKJEM7077-41-09 20:46:00 Test Item Value Reference Range Interpretation Comments Platelet (test code = Platelet) 279 133-450 [facility] HospitalBvprmgfYNHHZMSAMY2020-23-07 20:46:00 Test Item Value Reference Range Interpretation Comments MCV (test code = MCV) 99.7 80.0-98.0 [facility] HospitalQilxxzgWYIEEMZNLC6913-64-87 20:46:00 Test Item Value Reference Range Interpretation Comments MCH (test code = MCH) 33.1 pg 27.0-31.0 [facility] HospitalPzymzgwYEDQELQPQC5150-04-46 20:46:00 Test Item Value Reference Range Interpretation Comments Lymphocytes # (test code = Lymphocytes 1.2 1.0-5.5 #) [facility] HospitalXrnkdpaQATKKCWXBW8316-31-69 20:46:00 Test Item Value Reference Range Interpretation Comments Segs (test code = Segs) 65.1 45.0-75.0 [facility] HospitalIzsplckSIVXLCLHWT1276-92-02 20:46:00 Test Item Value Reference Range Interpretation Comments Lymphocytes (test code = Lymphocytes) 17.8 20.0-40.0 [facility] HospitalMbodqxlAULOLTTSQX2911-54-90 20:46:00 Test Item Value Reference Range Interpretation Comments Basophils (test code = 0.7 See_Comment [Aut omated message] The Basophils) system which ge nerated this result tra nsmitted reference range : <=1.0. The reference r jase was not used to int erpret this result as normal/abnormal . [facility] HospitalRulqucsCYLGLSXOPY0896-01-93 20:46:00 Test Item Value Reference Range Interpretation Comments Eosinophils (test code = 5.3 See_Comment [A utomated message] The Eosinophils) system which ge nerated this result tra nsmitted reference range : <=4.0. The reference r jase was not used to int erpret this result as normal/abnormal . [facility] HospitalFqofypxQZHLBATIJR7810-18-80 20:46:00 Test Item Value Reference Range Interpretation Comments Monocytes (test code = Monocytes) 11.1 2.0-12.0 [facility] HospitalCccuviyAZLQASZAFQ1266-98-68 20:46:00 Test Item Value Reference Range Interpretation Comments Eosinophils # (test code 0.4 See_Comment [A utomated message] The = Eosinophils #) system whic h generated this result tra nsmitted reference range : <=0.5. The reference r jase was not used to int erpret this result as normal/abnormal . [facility] HospitalSvcmtljTFVDWIVDUH9200-50-24 20:46:00 Test Item Value Reference Range Interpretation Comments Monocytes # (test code 0.8 See_Comment [Aut omated message] The = Monocytes #) system which generated this result tra nsmitted reference range : <=0.8. The reference r jase was not used to int erpret this result as normal/abnormal . [facility] HospitalJaofukrPBBKARYJVZ6933-09-15 20:46:00 Test Item Value Reference Range Interpretation Comments Macrocyte (test code = 1+ *ABN*(12/19/14 3:46 Macrocyte) PM) [facility] HospitalCbpkbmeOWFYMGAQMJ8882-55-07 20:46:00 Test Item Value Reference Range Interpretation Comments Segs-Bands # (test code = Segs-Bands #) 4.5 1.5-8.1 [facility] AND [id number] 20:40:00 Test Item Value Reference Range Interpretation Comments UA Bili (test code = Negative *NA*(12/19/14 UA Bili) 3:40 PM) [facility] AND [id number] 20:40:00 Test Item Value Reference Range Interpretation Comments UA Leuk Est (test Negative (12/19/14 3:40 code = UA Leuk Est) PM) [facility] AND [id number] 20:40:00 Test Item Value Reference Range Interpretation Comments UA Nitrite (test code Negative (12/19/14 3:40 = UA Nitrite) PM) [facility] AND [id number] 20:40:00 Test Item Value Reference Range Interpretation Comments UA Urobilinogen (test code = UA 0.2 0.1-1.0 Urobilinogen) [facility] AND [id number] 20:40:00 Test Item Value Reference Range Interpretation Comments UA Blood (test code = Negative (12/19/14 3:40 UA Blood) PM) [facility] AND [id number] 20:40:00 Test Item Value Reference Range Interpretation Comments UA Sq Epi (test code = UA Sq Occasional /LPF Epi) [facility] AND [id number] 20:40:00 Test Item Value Reference Range Interpretation Comments UA Bacteria (test code = UA Occasional /HPF Bacteria) [facility] AND [id number] 20:40:00 Test Item Value Reference Range Interpretation Comments UA WBC (test code = UA WBC) 0-2 /HPF [facility] AND [id number] 20:40:00 Test Item Value Reference Range Interpretation Comments UA RBC (test None Seen See_Comment [Automated mes james] code = UA RBC) (12/19/14 3:40 PM) The [employer] which generated this result transmitted ref erence range: <=2. The reference range was not used to int erpret this result as normal/abnormal . [facility] AND [id number] 20:40:00 Test Item Value Reference Range Interpretation Comments UA Ketones (test code = UA Ketones) 40 mg/dL [facility] AND [id number] 20:40:00 Test Item Value Reference Range Interpretation Comments UA Glucose (test code = UA >=1000 mg/dL Glucose) [facility] AND [id number] 20:40:00 Test Item Value Reference Range Interpretation Comments UA Protein (test code Negative (12/19/14 3:40 = UA Protein) PM) [facility] AND [id number] 20:40:00 Test Item Value Reference Range Interpretation Comments UA pH (test code = UA pH) 5.5 1 5.0-8.0 [facility] AND [id number] 20:40:00 Test Item Value Reference Range Interpretation Comments UA Spec Grav (test code *NA*(12/19/14 3:40 PM) = UA Spec Grav) [facility] AND [id number] 20:40:00 Test Item Value Reference Range Interpretation Comments UA Color (test code = Yellow *NA*(12/19/14 3:40 [facility]A Color) PM) [facility] [id number] 20:40:00 Test Item Value Reference Range Interpretation Comments UA Turbidity (test code = Clear (12/19/14 3:40 UA Turbidity) PM) [facility] [id number] 20:40:00 Test Item Value Reference Range Interpretation Comments U Preg (test code = U Negative (12/19/14 3:40 Preg) PM) [facility] [id number] 20:40:00 Test Item Value Reference Range Interpretation Comments UA Bili (test code = Negative *NA*(12/19/14 UA Bili) 3:40 PM) [facility] [id number] 20:40:00 Test Item Value Reference Range Interpretation Comments UA Leuk Est (test Negative (12/19/14 3:40 code = UA Leuk Est) PM) [facility] [id number] 20:40:00 Test Item Value Reference Range Interpretation Comments UA Nitrite (test code Negative (12/19/14 3:40 = UA Nitrite) PM) [facility] [id number] 20:40:00 Test Item Value Reference Range Interpretation Comments UA Urobilinogen (test code = UA 0.2 0.1-1.0 Urobilinogen) [facility] [id number] 20:40:00 Test Item Value Reference Range Interpretation Comments UA Blood (test code = Negative (12/19/14 3:40 UA Blood) PM) [facility] [id number] 20:40:00 Test Item Value Reference Range Interpretation Comments UA Sq Epi (test code = UA Sq Occasional /LPF Epi) [facility] [id number] 20:40:00 Test Item Value Reference Range Interpretation Comments UA Bacteria (test code = UA Occasional /HPF Bacteria) [facility] [id number] 20:40:00 Test Item Value Reference Range Interpretation Comments UA WBC (test code = UA WBC) 0-2 /HPF [facility] [id number] 20:40:00 Test Item Value Reference Range Interpretation Comments UA RBC (test None Seen See_Comment [Automated mes james] code = UA RBC) (12/19/14 3:40 PM) The syste m which generated this result transmitted ref erence range: <=2. The reference range was not used to int erpret this result as normal/abnormal . [facility] AND [id number] 20:40:00 Test Item Value Reference Range Interpretation Comments UA Ketones (test code = UA Ketones) 40 mg/dL [facility] AND [id number] 20:40:00 Test Item Value Reference Range Interpretation Comments UA Glucose (test code = UA >=1000 mg/dL Glucose) [facility] AND [id number] 20:40:00 Test Item Value Reference Range Interpretation Comments UA Protein (test code Negative (12/19/14 3:40 = UA Protein) PM) [facility] AND [id number] 20:40:00 Test Item Value Reference Range Interpretation Comments UA pH (test code = UA pH) 5.5 1 5.0-8.0 [facility] AND [id number] 20:40:00 Test Item Value Reference Range Interpretation Comments UA Spec Grav (test code *NA*(12/19/14 3:40 PM) = UA Spec Grav) [facility] AND [id number] 20:40:00 Test Item Value Reference Range Interpretation Comments UA Color (test code = Yellow *NA*(12/19/14 3:40 UA Color) PM) [facility] AND [id number] 20:40:00 Test Item Value Reference Range Interpretation Comments UA Turbidity (test code = Clear (12/19/14 3:40 UA Turbidity) PM) [facility] [id number] 20:40:00 Test Item Value Reference Range Interpretation Comments U Preg (test code = U Negative (12/19/14 3:40 Preg) PM) [facility] AND [id number] 20:40:00 Test Item Value Reference Range Interpretation Comments UA Bili (test code = Negative *NA*(12/19/14 UA Bili) 3:40 PM) [facility] AND [id number] 20:40:00 Test Item Value Reference Range Interpretation Comments UA Leuk Est (test Negative (12/19/14 3:40 code = UA Leuk Est) PM) [facility] AND [id number] 20:40:00 Test Item Value Reference Range Interpretation Comments UA Nitrite (test code Negative (12/19/14 3:40 = UA Nitrite) PM) [facility] AND [id number] 20:40:00 Test Item Value Reference Range Interpretation Comments UA Urobilinogen (test code = UA 0.2 0.1-1.0 Urobilinogen) [facility] AND [id number] 20:40:00 Test Item Value Reference Range Interpretation Comments UA Blood (test code = Negative (12/19/14 3:40 UA Blood) PM) [facility] AND [id number] 20:40:00 Test Item Value Reference Range Interpretation Comments UA Sq Epi (test code = UA Sq Occasional /LPF Epi) [facility] AND [id number] 20:40:00 Test Item Value Reference Range Interpretation Comments UA Bacteria (test code = UA Occasional /HPF Bacteria) [facility] AND [id number] 20:40:00 Test Item Value Reference Range Interpretation Comments UA WBC (test code = UA WBC) 0-2 /HPF [facility] AND [id number] 20:40:00 Test Item Value Reference Range Interpretation Comments UA RBC (test None Seen See_Comment [Automated mes james] code = UA RBC) (12/19/14 3:40 PM) The [employer] which generated this result transmitted ref erence range: <=2. The reference range was not used to int erpret this result as normal/abnormal . [facility] AND [id number] 20:40:00 Test Item Value Reference Range Interpretation Comments UA Ketones (test code = UA Ketones) 40 mg/dL [facility] AND [id number] 20:40:00 Test Item Value Reference Range Interpretation Comments UA Glucose (test code = UA >=1000 mg/dL Glucose) [facility] AND [id number] 20:40:00 Test Item Value Reference Range Interpretation Comments UA Protein (test code Negative (12/19/14 3:40 = UA Protein) PM) [facility] AND [id number] 20:40:00 Test Item Value Reference Range Interpretation Comments UA pH (test code = UA pH) 5.5 1 5.0-8.0 [facility] AND [id number] 20:40:00 Test Item Value Reference Range Interpretation Comments UA Spec Grav (test code *NA*(12/19/14 3:40 PM) = UA Spec Grav) [facility] AND [id number] 20:40:00 Test Item Value Reference Range Interpretation Comments UA Color (test code = Yellow *NA*(12/19/14 3:40 UA Color) PM) [facility] AND [id number] 20:40:00 Test Item Value Reference Range Interpretation Comments UA Turbidity (test code = Clear (12/19/14 3:40 UA Turbidity) PM) [facility] [id number] 20:40:00 Test Item Value Reference Range Interpretation Comments U Preg (test code = U Negative (12/19/14 3:40 Preg) PM) [facility] [id number] 21:39:00 Test Item Value Reference Range Interpretation Comments Lipase Lvl (test code = Lipase Lvl) 270 73-393 [facility] [id number] 21:39:00 Test Item Value Reference Range Interpretation Comments eGFR (test code = eGFR) 79 [facility] [id number] 21:39:00 Test Item Value Reference Range Interpretation Comments Chloride Lvl (test code = Chloride Lvl) 96 95-109 [facility] [id number] 21:39:00 Test Item Value Reference Range Interpretation Comments B/C Ratio (test code = B/C Ratio) 18 6-25 [facility] [id number] 21:39:00 Test Item Value Reference Range Interpretation Comments Potassium Lvl (test code = Potassium 4.6 3.5-5.1 Lvl) [facility] [id number] 21:39:00 Test Item Value Reference Range Interpretation Comments A/G Ratio (test code = A/G Ratio) 1.2 0.7-1.6 [facility]2015-05-26 21:39:00 Test Item Value Reference Range Interpretation Comments Globulin (test code = Globulin) 3.3 2.0-4.0 [facility]2015-05-26 21:39:00 Test Item Value Reference Range Interpretation Comments Calcium Lvl (test code = Calcium Lvl) 9.3 8.5-10.5 [facility]2015-05-26 21:39:00 Test Item Value Reference Range Interpretation Comments AGAP (test code = AGAP) 14.6 10.0-20.0 [facility]2015-05-26 21:39:00 Test Item Value Reference Range Interpretation Comments CO2 (test code = CO2) 23 24-32 [place] [id number] 21:39:00 Test Item Value Reference Range Interpretation Comments Bili Total (test code = Bili Total) 0.8 0.2-1.3 [facility]2015-05-26 21:39:00 Test Item Value Reference Range Interpretation Comments Albumin Lvl (test code = Albumin Lvl) 3.8 3.5-5.0 [facility]2015-05-26 21:39:00 Test Item Value Reference Range Interpretation Comments Total Protein (test code = Total 7.1 6.4-8.4 Protein) [facility]2015-05-26 21:39:00 Test Item Value Reference Range Interpretation Comments ALT (test code = ALT) 19 See_Comment [Auto mated message] The system which ge nerated this result transmit owen reference range : <=65. The reference range was not used to interpr et this result as fredi l/abnormal. [facility]2015-05-26 21:39:00 Test Item Value Reference Range Interpretation Comments Alk Phos (test code = Alk Phos) 108 39-136 [facility]2015-05-26 21:39:00 Test Item Value Reference Range Interpretation Comments AST (test code = AST) 14 See_Comment [Auto mated message] The system which ge nerated this result transmit owne reference range : <=37. The reference range was not used to interpr et this result as fredi l/abnormal. [facility]2015-05-26 21:39:00 Test Item Value Reference Range Interpretation Comments Glucose Lvl (test code = Glucose Lvl) 573 70-99 [facility]2015-05-26 21:39:00 Test Item Value Reference Range Interpretation Comments Creatinine Lvl (test code = Creatinine 1.0 0.5-1.4 Lvl) [facility]2015-05-26 21:39:00 Test Item Value Reference Range Interpretation Comments Sodium Lvl (test code = Sodium Lvl) 129 135-145 [facility]2015-05-26 21:39:00 Test Item Value Reference Range Interpretation Comments BUN (test code = BUN) 18 7-22 [place] [id number] 21:39:00 Test Item Value Reference Range Interpretation Comments S Preg (test code = S Negative *NA*(10/10/14 Preg) 4:39 PM) [id number] 21:39:00 Test Item Value Reference Range Interpretation Comments Hct (test code = Hct) 41.4 36.0-48.0 [facility] Hos[id number] 21:39:00 Test Item Value Reference Range Interpretation Comments Hgb (test code = Hgb) 13.9 12.0-16.0 [facility] Ho[id number] 21:39:00 Test Item Value Reference Range Interpretation Comments MCV (test code = MCV) 97.4 80.0-98.0 [facility] HospitalSdodrgqBHTHTONADJ1605-02-30 21:39:00 Test Item Value Reference Range Interpretation Comments MCH (test code = MCH) 32.6 pg 27.0-31.0 [facility] Ho[id number] 21:39:00 Test Item Value Reference Range Interpretation Comments MCHC (test code = MCHC) 33.5 32.0-36.0 [facility] H[id number] 21:39:00 Test Item Value Reference Range Interpretation Comments RDW (test code = RDW) 12.7 11.5-14.5 [facility] H[id number] 21:39:00 Test Item Value Reference Range Interpretation Comments Platelet (test code = Platelet) 278 133-450 [facility] H[id number] 21:39:00 Test Item Value Reference Range Interpretation Comments MPV (test code = MPV) 8.7 7.4-10.4 [facility] H[id number] 21:39:00 Test Item Value Reference Range Interpretation Comments WBC (test code = WBC) 10.1 3.7-10.4 [facility] H[id number] 21:39:00 Test Item Value Reference Range Interpretation Comments RBC (test code = RBC) 4.25 4.20-5.40 [facility] H[id number] 21:39:00 Test Item Value Reference Range Interpretation Comments Eosinophils # (test code 0.6 See_Comment [A utomated message] The = Eosinophils #) system whic h generated this result tra nsmitted reference range : <=0.5. The reference r jase was not used to int erpret this result as normal/abnormal . [facility] H[id number] 21:39:00 Test Item Value Reference Range Interpretation Comments Monocytes # (test code 0.4 See_Comment [Aut omated message] The = Monocytes #) system which generated this result tra nsmitted reference range : <=0.8. The reference r jase was not used to int erpret this result as normal/abnormal . [facility] HospitalZnycwhhSSBVGGFQDT4751-09-00 21:39:00 Test Item Value Reference Range Interpretation Comments Basophils # (test code 0.1 See_Comment [Aut omated message] The = Basophils #) system which generated this result tra nsmitted reference range : <=0.2. The reference r jase was not used to int erpret this result as normal/abnormal . [facility] Hospit[id number] 21:39:00 Test Item Value Reference Range Interpretation Comments Eosinophils (test code = 5.5 See_Comment [A utomated message] The Eosinophils) system which ge nerated this result tra nsmitted reference range : <=4.0. The reference r jase was not used to int erpret this result as normal/abnormal . [facility] Hospit[id number] 21:39:00 Test Item Value Reference Range Interpretation Comments Basophils (test code = 0.7 See_Comment [Aut omated message] The Basophils) system which ge nerated this result tra nsmitted reference range : <=1.0. The reference r jase was not used to int erpret this result as normal/abnormal . [facility] HospitalXhpvtvsJAVTOCNVPR0279-17-52 21:39:00 Test Item Value Reference Range Interpretation Comments Segs-Bands # (test code = Segs-Bands #) 6.8 1.5-8.1 [facility] HospitalRruwfqzBTPKHJBXMF4645-69-09 21:39:00 Test Item Value Reference Range Interpretation Comments Lymphocytes # (test code = Lymphocytes 2.2 1.0-5.5 #) [facility] H[id number] 21:39:00 Test Item Value Reference Range Interpretation Comments Segs (test code = Segs) 67.4 45.0-75.0 [facility] HospitalTpyeudoNWYRGWIGKJ6367-28-65 21:39:00 Test Item Value Reference Range Interpretation Comments Lymphocytes (test code = Lymphocytes) 22.2 20.0-40.0 [facility] HospitalUcajafqKCCBLXGWYB0192-53-44 21:39:00 Test Item Value Reference Range Interpretation Comments Monocytes (test code = Monocytes) 4.2 2.0-12.0 [facility] AND [id number] 21:39:00 Test Item Value Reference Range Interpretation Comments UA Turbidity (test code = Clear (10/10/14 4:39 UA Turbidity) PM) [facility] AND [id number] 21:39:00 Test Item Value Reference Range Interpretation Comments UA Color (test code = Yellow *NA*(10/10/14 UA Color) 4:39 PM) [facility] AND [id number] 21:39:00 Test Item Value Reference Range Interpretation Comments UA Nitrite (test code Negative (10/10/14 4:39 = UA Nitrite) PM) [facility] AND [id number] 21:39:00 Test Item Value Reference Range Interpretation Comments UA Urobilinogen (test code = UA 0.2 0.1-1.0 Urobilinogen) [facility] AND [id number] 21:39:00 Test Item Value Reference Range Interpretation Comments UA Blood (test code = Negative (10/10/14 4:39 UA Blood) PM) [facility] AND [id number] 21:39:00 Test Item Value Reference Range Interpretation Comments UA Protein (test code Negative (10/10/14 4:39 = UA Protein) PM) [facility] AND [id number] 21:39:00 Test Item Value Reference Range Interpretation Comments UA Bili (test code = Negative *NA*(10/10/14 UA Bili) 4:39 PM) [facility] AND [id number] 21:39:00 Test Item Value Reference Range Interpretation Comments UA Ketones (test code = UA Ketones) 15 mg/dL [facility] AND [id number] 21:39:00 Test Item Value Reference Range Interpretation Comments UA Glucose (test code = UA >=1000 mg/dL Glucose) [facility] AND [id number] 21:39:00 Test Item Value Reference Range Interpretation Comments UA Leuk Est (test Negative (10/10/14 4:39 code = UA Leuk Est) PM) [facility] AND [id number] 21:39:00 Test Item Value Reference Range Interpretation Comments UA pH (test code = UA pH) 6.0 1 5.0-8.0 [facility] AND [id number] 21:39:00 Test Item Value Reference Range Interpretation Comments UA Spec Grav (test code *NA*(10/10/14 4:39 PM) = UA Spec Grav) [facility] AND [id number] 21:39:00 Test Item Value Reference Range Interpretation Comments UA Bacteria (test code = UA Occasional /HPF Bacteria) [facility] AND [id number] 21:39:00 Test Item Value Reference Range Interpretation Comments UA WBC (test code = UA WBC) 0-2 /HPF [facility] AND [id number] 21:39:00 Test Item Value Reference Range Interpretation Comments UA Sq Epi (test code = UA Sq Epi) Few /LPF [facility] AND [id number] 21:39:00 Test Item Value Reference Range Interpretation Comments UA RBC (test code = 0-2 /HPF See_Comment [Automa owen message] The UA RBC) system which ge nerated this result tra nsmitted reference range : <=2. The reference range was not used to interpr et this result as fredi l/abnormal. [facility] [id number] 21:39:00 Test Item Value Reference Range Interpretation Comments Lipase Lvl (test code = Lipase Lvl) 270 73-393 [facility]2015-05-26 21:39:00 Test Item Value Reference Range Interpretation Comments eGFR (test code = eGFR) 79 [facility]2015-05-26 21:39:00 Test Item Value Reference Range Interpretation Comments Chloride Lvl (test code = Chloride Lvl) 96 95-109 [facility]2015-05-26 21:39:00 Test Item Value Reference Range Interpretation Comments B/C Ratio (test code = B/C Ratio) 18 6-25 [facility]2015-05-26 21:39:00 Test Item Value Reference Range Interpretation Comments Potassium Lvl (test code = Potassium 4.6 3.5-5.1 Lvl) [facility]2015-05-26 21:39:00 Test Item Value Reference Range Interpretation Comments A/G Ratio (test code = A/G Ratio) 1.2 0.7-1.6 [place] [id number] 21:39:00 Test Item Value Reference Range Interpretation Comments Globulin (test code = Globulin) 3.3 2.0-4.0 [place] 413505-05-26 21:39:00 Test Item Value Reference Range Interpretation Comments Calcium Lvl (test code = Calcium Lvl) 9.3 8.5-10.5 [facility]2015-05-26 21:39:00 Test Item Value Reference Range Interpretation Comments AGAP (test code = AGAP) 14.6 10.0-20.0 [place] 413505-05-26 21:39:00 Test Item Value Reference Range Interpretation Comments CO2 (test code = CO2) 23 24-32 [facility]2015-05-26 21:39:00 Test Item Value Reference Range Interpretation Comments Bili Total (test code = Bili Total) 0.8 0.2-1.3 [facility]2015-05-26 21:39:00 Test Item Value Reference Range Interpretation Comments Albumin Lvl (test code = Albumin Lvl) 3.8 3.5-5.0 [facility]2015-05-26 21:39:00 Test Item Value Reference Range Interpretation Comments Total Protein (test code = Total 7.1 6.4-8.4 Protein) [facility]2015-05-26 21:39:00 Test Item Value Reference Range Interpretation Comments ALT (test code = ALT) 19 See_Comment [Auto mated message] The system which ge nerated this result transmit owen reference range : <=65. The reference range was not used to interpr et this result as fredi l/abnormal. [facility]2015-05-26 21:39:00 Test Item Value Reference Range Interpretation Comments Alk Phos (test code = Alk Phos) 108 39-136 [facility]2015-05-26 21:39:00 Test Item Value Reference Range Interpretation Comments AST (test code = AST) 14 See_Comment [Auto mated message] The system which ge nerated this result transmit owen reference range : <=37. The reference range was not used to interpr et this result as fredi l/abnormal. [facility]2015-05-26 21:39:00 Test Item Value Reference Range Interpretation Comments Glucose Lvl (test code = Glucose Lvl) 573 70-99 [facility]2015-05-26 21:39:00 Test Item Value Reference Range Interpretation Comments Creatinine Lvl (test code = Creatinine 1.0 0.5-1.4 Lvl) [facility]2015-05-26 21:39:00 Test Item Value Reference Range Interpretation Comments Sodium Lvl (test code = Sodium Lvl) 129 135-145 [facility]2015-05-26 21:39:00 Test Item Value Reference Range Interpretation Comments BUN (test code = BUN) 18 7-22 [facility] CenterEszchteSCITANVFSBLAS7281-87-73 21:39:00 Test Item Value Reference Range Interpretation Comments S Preg (test code = S Negative *NA*(10/10/14 Preg) 4:39 PM) [facility] HospitalHkmkegbONBPDIXJGF2598-38-90 21:39:00 Test Item Value Reference Range Interpretation Comments Hct (test code = Hct) 41.4 36.0-48.0 [facility] HospitalXsjsfsdPQVNVEWLJK1468-99-41 21:39:00 Test Item Value Reference Range Interpretation Comments Hgb (test code = Hgb) 13.9 12.0-16.0 [facility] HospitalYgqafccGLMQZLKLQK7588-83-63 21:39:00 Test Item Value Reference Range Interpretation Comments MCV (test code = MCV) 97.4 80.0-98.0 [facility] HospitalUaiapntHWZXFCWWDX3362-26-54 21:39:00 Test Item Value Reference Range Interpretation Comments MCH (test code = MCH) 32.6 pg 27.0-31.0 [facility] HospitalLrhbsebFDTWZCCOZX5996-65-58 21:39:00 Test Item Value Reference Range Interpretation Comments MCHC (test code = MCHC) 33.5 32.0-36.0 [facility] Hospit[id number] 21:39:00 Test Item Value Reference Range Interpretation Comments RDW (test code = RDW) 12.7 11.5-14.5 [facility] Hosp[id number] 21:39:00 Test Item Value Reference Range Interpretation Comments Platelet (test code = Platelet) 278 133-450 [facility] Hos[id number] 21:39:00 Test Item Value Reference Range Interpretation Comments MPV (test code = MPV) 8.7 7.4-10.4 [place] [id number] 21:39:00 Test Item Value Reference Range Interpretation Comments WBC (test code = WBC) 10.1 3.7-10.4 [facility] HospitalFvsaowlTHJQWSWHXJ4766-66-44 21:39:00 Test Item Value Reference Range Interpretation Comments RBC (test code = RBC) 4.25 4.20-5.40 [facility] HospitalLcuhjyrFWAWHPEETC3035-14-53 21:39:00 Test Item Value Reference Range Interpretation Comments Eosinophils # (test code 0.6 See_Comment [A utomated message] The = Eosinophils #) system whic h generated this result tra nsmitted reference range : <=0.5. The reference r jase was not used to int erpret this result as normal/abnormal . [facility] Hos[id number] 21:39:00 Test Item Value Reference Range Interpretation Comments Monocytes # (test code 0.4 See_Comment [Aut omated message] The = Monocytes #) system which generated this result tra nsmitted reference range : <=0.8. The reference r jase was not used to int erpret this result as normal/abnormal . [facility] HospitalNztjtzbUDSMZGJOYJ4496-13-13 21:39:00 Test Item Value Reference Range Interpretation Comments Basophils # (test code 0.1 See_Comment [Aut omated message] The = Basophils #) system which generated this result tra nsmitted reference range : <=0.2. The reference r jase was not used to int erpret this result as normal/abnormal . [facility] HospitalKrlvrwoZUFTDFSHQT3782-30-34 21:39:00 Test Item Value Reference Range Interpretation Comments Eosinophils (test code = 5.5 See_Comment [A utomated message] The Eosinophils) system which ge nerated this result tra nsmitted reference range : <=4.0. The reference r jase was not used to int erpret this result as normal/abnormal . [facility] HospitalSwtmuqkGVXEQUWWDS6664-39-11 21:39:00 Test Item Value Reference Range Interpretation Comments Basophils (test code = 0.7 See_Comment [Aut omated message] The Basophils) system which ge nerated this result tra nsmitted reference range : <=1.0. The reference r jase was not used to int erpret this result as normal/abnormal . [facility] HospitalRmmhcetFLBVSMFWUQ2906-08-03 21:39:00 Test Item Value Reference Range Interpretation Comments Segs-Bands # (test code = Segs-Bands #) 6.8 1.5-8.1 [facility] HospitalBnkludeTBGSERACUK9714-68-41 21:39:00 Test Item Value Reference Range Interpretation Comments Lymphocytes # (test code = Lymphocytes 2.2 1.0-5.5 #) [facility] HospitalHomaofbOPYQZZNIKC9334-75-97 21:39:00 Test Item Value Reference Range Interpretation Comments Segs (test code = Segs) 67.4 45.0-75.0 [facility] HospitalSghufwyLUZIUHSROG0677-94-15 21:39:00 Test Item Value Reference Range Interpretation Comments Lymphocytes (test code = Lymphocytes) 22.2 20.0-40.0 [facility] [id number] 21:39:00 Test Item Value Reference Range Interpretation Comments Monocytes (test code = Monocytes) 4.2 2.0-12.0 [facility]2015-05-26 21:39:00 Test Item Value Reference Range Interpretation Comments UA Turbidity (test code = Clear (10/10/14 4:39 UA Turbidity) PM) [facility]2015-05-26 21:39:00 Test Item Value Reference Range Interpretation Comments UA Color (test code = Yellow *NA*(10/10/14 UA Color) 4:39 PM) [facility]2015-05-26 21:39:00 Test Item Value Reference Range Interpretation Comments UA Nitrite (test code Negative (10/10/14 4:39 = UA Nitrite) PM) [facility] AND [id number] 21:39:00 Test Item Value Reference Range Interpretation Comments UA Urobilinogen (test code = UA 0.2 0.1-1.0 Urobilinogen) [facility] AND [id number] 21:39:00 Test Item Value Reference Range Interpretation Comments UA Blood (test code = Negative (10/10/14 4:39 UA Blood) PM) [facility] AND [id number] 21:39:00 Test Item Value Reference Range Interpretation Comments UA Protein (test code Negative (10/10/14 4:39 = UA Protein) PM) [facility] AND [id number] 21:39:00 Test Item Value Reference Range Interpretation Comments UA Bili (test code = Negative *NA*(10/10/14 UA Bili) 4:39 PM) [facility] AND [id number] 21:39:00 Test Item Value Reference Range Interpretation Comments UA Ketones (test code = UA Ketones) 15 mg/dL [facility] AND [id number] 21:39:00 Test Item Value Reference Range Interpretation Comments UA Glucose (test code = UA >=1000 mg/dL Glucose) [facility] AND [id number] 21:39:00 Test Item Value Reference Range Interpretation Comments UA Leuk Est (test Negative (10/10/14 4:39 code = UA Leuk Est) PM) [facility] AND [id number] 21:39:00 Test Item Value Reference Range Interpretation Comments UA pH (test code = UA pH) 6.0 1 5.0-8.0 [facility] AND [id number] 21:39:00 Test Item Value Reference Range Interpretation Comments UA Spec Grav (test code *NA*(10/10/14 4:39 PM) = UA Spec Grav) [facility] AND [id number] 21:39:00 Test Item Value Reference Range Interpretation Comments UA Bacteria (test code = UA Occasional /HPF Bacteria) [facility] AND [id number] 21:39:00 Test Item Value Reference Range Interpretation Comments UA WBC (test code = UA WBC) 0-2 /HPF [facility] AND [id number] 21:39:00 Test Item Value Reference Range Interpretation Comments UA Sq Epi (test code = UA Sq Epi) Few /LPF [facility] AND [id number] 21:39:00 Test Item Value Reference Range Interpretation Comments UA RBC (test code = 0-2 /HPF See_Comment [Automa owen message] The UA RBC) system which ge nerated this result tra nsmitted reference range : <=2. The reference range was not used to interpr et this result as fredi l/abnormal. [facility]2015-05-26 21:39:00 Test Item Value Reference Range Interpretation Comments Lipase Lvl (test code = Lipase Lvl) 270 73-393 [facility]2015-05-26 21:39:00 Test Item Value Reference Range Interpretation Comments eGFR (test code = eGFR) 79 [facility]2015-05-26 21:39:00 Test Item Value Reference Range Interpretation Comments Chloride Lvl (test code = Chloride Lvl) 96 95-109 [facility]2015-05-26 21:39:00 Test Item Value Reference Range Interpretation Comments B/C Ratio (test code = B/C Ratio) 18 6-25 [facility]2015-05-26 21:39:00 Test Item Value Reference Range Interpretation Comments Potassium Lvl (test code = Potassium 4.6 3.5-5.1 Lvl) [facility]2015-05-26 21:39:00 Test Item Value Reference Range Interpretation Comments A/G Ratio (test code = A/G Ratio) 1.2 0.7-1.6 [facility]2015-05-26 21:39:00 Test Item Value Reference Range Interpretation Comments Globulin (test code = Globulin) 3.3 2.0-4.0 [facility]2015-05-26 21:39:00 Test Item Value Reference Range Interpretation Comments Calcium Lvl (test code = Calcium Lvl) 9.3 8.5-10.5 [facility]2015-05-26 21:39:00 Test Item Value Reference Range Interpretation Comments AGAP (test code = AGAP) 14.6 10.0-20.0 [facility]2015-05-26 21:39:00 Test Item Value Reference Range Interpretation Comments CO2 (test code = CO2) 23 24-32 [facility]2015-05-26 21:39:00 Test Item Value Reference Range Interpretation Comments Bili Total (test code = Bili Total) 0.8 0.2-1.3 [facility]2015-05-26 21:39:00 Test Item Value Reference Range Interpretation Comments Albumin Lvl (test code = Albumin Lvl) 3.8 3.5-5.0 [facility]2015-05-26 21:39:00 Test Item Value Reference Range Interpretation Comments Total Protein (test code = Total 7.1 6.4-8.4 Protein) [facility]2015-05-26 21:39:00 Test Item Value Reference Range Interpretation Comments ALT (test code = ALT) 19 See_Comment [Auto mated message] The system which ge nerated this result transmit owen reference range : <=65. The reference range was not used to interpr et this result as fredi l/abnormal. [facility]2015-05-26 21:39:00 Test Item Value Reference Range Interpretation Comments Alk Phos (test code = Alk Phos) 108 39-136 [facility]2015-05-26 21:39:00 Test Item Value Reference Range Interpretation Comments AST (test code = AST) 14 See_Comment [Auto mated message] The system which ge nerated this result transmit owen reference range : <=37. The reference range was not used to interpr et this result as fredi l/abnormal. [facility]2015-05-26 21:39:00 Test Item Value Reference Range Interpretation Comments Glucose Lvl (test code = Glucose Lvl) 573 70-99 [facility]2015-05-26 21:39:00 Test Item Value Reference Range Interpretation Comments Creatinine Lvl (test code = Creatinine 1.0 0.5-1.4 Lvl) [facility]2015-05-26 21:39:00 Test Item Value Reference Range Interpretation Comments Sodium Lvl (test code = Sodium Lvl) 129 135-145 [facility]2015-05-26 21:39:00 Test Item Value Reference Range Interpretation Comments BUN (test code = BUN) 18 7-22 [place] [id number] 21:39:00 Test Item Value Reference Range Interpretation Comments S Preg (test code = S Negative *NA*(10/10/14 Preg) 4:39 PM) [id number] 21:39:00 Test Item Value Reference Range Interpretation Comments Hct (test code = Hct) 41.4 36.0-48.0 [facility] Hos[id number] 21:39:00 Test Item Value Reference Range Interpretation Comments Hgb (test code = Hgb) 13.9 12.0-16.0 [facility] HospitalMxgdltjEYIQQQKAWP6497-37-05 21:39:00 Test Item Value Reference Range Interpretation Comments MCV (test code = MCV) 97.4 80.0-98.0 [facility] Hospit[id number] 21:39:00 Test Item Value Reference Range Interpretation Comments MCH (test code = MCH) 32.6 pg 27.0-31.0 [facility] HospitalQsjneheYGXXRLJNIH0719-90-84 21:39:00 Test Item Value Reference Range Interpretation Comments MCHC (test code = MCHC) 33.5 32.0-36.0 [facility] Hos[id number] 21:39:00 Test Item Value Reference Range Interpretation Comments RDW (test code = RDW) 12.7 11.5-14.5 [facility] Ho[id number] 21:39:00 Test Item Value Reference Range Interpretation Comments Platelet (test code = Platelet) 278 133-450 [facility] Hos[id number] 21:39:00 Test Item Value Reference Range Interpretation Comments MPV (test code = MPV) 8.7 7.4-10.4 [facility] H[id number] 21:39:00 Test Item Value Reference Range Interpretation Comments WBC (test code = WBC) 10.1 3.7-10.4 [facility] Hos[id number] 21:39:00 Test Item Value Reference Range Interpretation Comments RBC (test code = RBC) 4.25 4.20-5.40 [facility] Hospit[id number] 21:39:00 Test Item Value Reference Range Interpretation Comments Eosinophils # (test code 0.6 See_Comment [A utomated message] The = Eosinophils #) system whic h generated this result tra nsmitted reference range : <=0.5. The reference r jase was not used to int erpret this result as normal/abnormal . [facility] HospitalRyywzigWGOAIXNVHX3820-36-20 21:39:00 Test Item Value Reference Range Interpretation Comments Monocytes # (test code 0.4 See_Comment [Aut omated message] The = Monocytes #) system which generated this result tra nsmitted reference range : <=0.8. The reference r jase was not used to int erpret this result as normal/abnormal . [facility] H[id number] 21:39:00 Test Item Value Reference Range Interpretation Comments Basophils # (test code 0.1 See_Comment [Aut omated message] The = Basophils #) system which generated this result tra nsmitted reference range : <=0.2. The reference r jase was not used to int erpret this result as normal/abnormal . [facility] HospitalYqgaylbYOWFANBCUI5630-56-12 21:39:00 Test Item Value Reference Range Interpretation Comments Eosinophils (test code = 5.5 See_Comment [A utomated message] The Eosinophils) system which ge nerated this result tra nsmitted reference range : <=4.0. The reference r jase was not used to int erpret this result as normal/abnormal . [facility] Hosp[id number] 21:39:00 Test Item Value Reference Range Interpretation Comments Basophils (test code = 0.7 See_Comment [Aut omated message] The Basophils) system which ge nerated this result tra nsmitted reference range : <=1.0. The reference r jase was not used to int erpret this result as normal/abnormal . [facility] HospitalWkvmrmxQCCVPZXZEQ1603-16-63 21:39:00 Test Item Value Reference Range Interpretation Comments Segs-Bands # (test code = Segs-Bands #) 6.8 1.5-8.1 [facility] HospitalOcycthnQJSCDJFZMC7246-35-97 21:39:00 Test Item Value Reference Range Interpretation Comments Lymphocytes # (test code = Lymphocytes 2.2 1.0-5.5 #) [facility] HospitalImbepsmWKESPYSEMN8847-30-19 21:39:00 Test Item Value Reference Range Interpretation Comments Segs (test code = Segs) 67.4 45.0-75.0 [facility] Hospit[id number] 21:39:00 Test Item Value Reference Range Interpretation Comments Lymphocytes (test code = Lymphocytes) 22.2 20.0-40.0 [facility] HospitalDvtklmiJOWJGEYHJR9110-37-53 21:39:00 Test Item Value Reference Range Interpretation Comments Monocytes (test code = Monocytes) 4.2 2.0-12.0 [facility] AND [id number] 21:39:00 Test Item Value Reference Range Interpretation Comments UA Turbidity (test code = Clear (10/10/14 4:39 UA Turbidity) PM) [facility] AND [id number] 21:39:00 Test Item Value Reference Range Interpretation Comments UA Color (test code = Yellow *NA*(10/10/14 UA Color) 4:39 PM) [facility] AND [id number] 21:39:00 Test Item Value Reference Range Interpretation Comments UA Nitrite (test code Negative (10/10/14 4:39 = UA Nitrite) PM) [facility] AND [id number] 21:39:00 Test Item Value Reference Range Interpretation Comments UA Urobilinogen (test code = UA 0.2 0.1-1.0 Urobilinogen) [facility] AND [id number] 21:39:00 Test Item Value Reference Range Interpretation Comments UA Blood (test code = Negative (10/10/14 4:39 UA Blood) PM) [facility] AND [id number] 21:39:00 Test Item Value Reference Range Interpretation Comments UA Protein (test code Negative (10/10/14 4:39 = UA Protein) PM) [facility] AND [id number] 21:39:00 Test Item Value Reference Range Interpretation Comments UA Bili (test code = Negative *NA*(10/10/14 UA Bili) 4:39 PM) [facility] AND [id number] 21:39:00 Test Item Value Reference Range Interpretation Comments UA Ketones (test code = UA Ketones) 15 mg/dL [facility] AND [id number] 21:39:00 Test Item Value Reference Range Interpretation Comments UA Glucose (test code = UA >=1000 mg/dL Glucose) [facility] AND [id number] 21:39:00 Test Item Value Reference Range Interpretation Comments UA Leuk Est (test Negative (10/10/14 4:39 code = UA Leuk Est) PM) [facility] AND [id number] 21:39:00 Test Item Value Reference Range Interpretation Comments UA pH (test code = UA pH) 6.0 1 5.0-8.0 [facility] AND [id number] 21:39:00 Test Item Value Reference Range Interpretation Comments UA Spec Grav (test code *NA*(10/10/14 4:39 PM) = UA Spec Grav) [facility] AND [id number] 21:39:00 Test Item Value Reference Range Interpretation Comments UA Bacteria (test code = UA Occasional /HPF Bacteria) [facility] AND [id number] 21:39:00 Test Item Value Reference Range Interpretation Comments UA WBC (test code = UA WBC) 0-2 /HPF [facility] AND [id number] 21:39:00 Test Item Value Reference Range Interpretation Comments UA Sq Epi (test code = UA Sq Epi) Few /LPF [facility] AND [id number] 21:39:00 Test Item Value Reference Range Interpretation Comments UA RBC (test code = 0-2 /HPF See_Comment [Automa owen message] The UA RBC) system which ge nerated this result tra nsmitted reference range : <=2. The reference range was not used to interpr et this result as fredi l/abnormal. [facility] [employer] [id number] 15:30:00 Test Item Value Reference Range Interpretation Comments Ketone Quantitative (test code = Ketone 0.10 Quantitative) [facility] [id number] 15:30:00 Test Item Value Reference Range Interpretation Comments Ketone Quantitative (test code = Ketone 0.10 Quantitative) [facility] [id number] 15:30:00 Test Item Value Reference Range Interpretation Comments Ketone Quantitative (test code = Ketone 0.10 Quantitative) [facility] [id number] 10:09:00 Test Item Value Reference Range Interpretation Comments BUN (test code = BUN) 7 7-22 [facility] [id number] 10:09:00 Test Item Value Reference Range Interpretation Comments CO2 (test code = CO2) 25 24-32 [facility] [id number] 10:09:00 Test Item Value Reference Range Interpretation Comments Albumin Lvl (test code = Albumin Lvl) 2.8 3.5-5.0 [facility] [id number] 10:09:00 Test Item Value Reference Range Interpretation Comments eGFR (test code = eGFR) 122 [facility]2015-04-23 10:09:00 Test Item Value Reference Range Interpretation Comments ALT (test code = ALT) 175 See_Comment [Auto mated message] The system which ge nerated this result transmit owen reference range : <=65. The reference range was not used to interpr et this result as fredi l/abnormal. [facility]2015-04-23 10:09:00 Test Item Value Reference Range Interpretation Comments Bili Total (test code = Bili Total) 0.4 0.2-1.3 [facility]2015-04-23 10:09:00 Test Item Value Reference Range Interpretation Comments Alk Phos (test code = Alk Phos) 102 39-136 [facility]2015-04-23 10:09:00 Test Item Value Reference Range Interpretation Comments AST (test code = AST) 166 See_Comment [Auto mated message] The system which ge nerated this result transmit owen reference range : <=37. The reference range was not used to interpr et this result as fredi l/abnormal. [facility]2015-04-23 10:09:00 Test Item Value Reference Range Interpretation Comments Total Protein (test code = Total 5.7 6.4-8.4 Protein) [facility]2015-04-23 10:09:00 Test Item Value Reference Range Interpretation Comments Chloride Lvl (test code = Chloride Lvl) 106 95-109 [facility]2015-04-23 10:09:00 Test Item Value Reference Range Interpretation Comments Potassium Lvl (test code = Potassium 4.0 3.5-5.1 Lvl) [facility]2015-04-23 10:09:00 Test Item Value Reference Range Interpretation Comments Calcium Lvl (test code = Calcium Lvl) 8.3 8.5-10.5 [facility]2015-04-23 10:09:00 Test Item Value Reference Range Interpretation Comments Creatinine Lvl (test code = Creatinine 0.7 0.5-1.4 Lvl) [facility]2015-04-23 10:09:00 Test Item Value Reference Range Interpretation Comments Glucose Lvl (test code = Glucose Lvl) 134 70-99 [facility]2015-04-23 10:09:00 Test Item Value Reference Range Interpretation Comments Sodium Lvl (test code = Sodium Lvl) 139 135-145 [facility]2015-04-23 10:09:00 Test Item Value Reference Range Interpretation Comments A/G Ratio (test code = A/G Ratio) 1.0 0.7-1.6 [facility]2015-04-23 10:09:00 Test Item Value Reference Range Interpretation Comments Globulin (test code = Globulin) 2.9 2.0-4.0 [facility]2015-04-23 10:09:00 Test Item Value Reference Range Interpretation Comments AGAP (test code = AGAP) 12.0 10.0-20.0 [facility]2015-04-23 10:09:00 Test Item Value Reference Range Interpretation Comments B/C Ratio (test code = B/C Ratio) 10 6-25 [facility]2015-04-23 10:09:00 Test Item Value Reference Range Interpretation Comments Phosphorus (test code = Phosphorus) 2.5 2.5-4.5 [facility]2015-04-23 10:09:00 Test Item Value Reference Range Interpretation Comments Magnesium Lvl (test code = Magnesium 1.6 1.8-2.4 Lvl) [facility]2015-04-23 10:09:00 Test Item Value Reference Range Interpretation Comments Ketone Quantitative (test code = Ketone 0.07 Quantitative) [facility] [id number] 10:09:00 Test Item Value Reference Range Interpretation Comments Lymphocytes # (test code = Lymphocytes 2.8 1.0-5.5 #) [facility] H[id number] 10:09:00 Test Item Value Reference Range Interpretation Comments Segs-Bands # (test code = Segs-Bands #) 3.0 1.5-8.1 [facility] HospitalZbvicbmPKFEVXFYAH2504-56-09 10:09:00 Test Item Value Reference Range Interpretation Comments Eosinophils # (test code 0.5 See_Comment [A utomated message] The = Eosinophils #) system whic h generated this result tra nsmitted reference range : <=0.5. The reference r jase was not used to int erpret this result as normal/abnormal . [facility] Ho[id number] 10:09:00 Test Item Value Reference Range Interpretation Comments Monocytes # (test code 0.4 See_Comment [Aut omated message] The = Monocytes #) system which generated this result tra nsmitted reference range : <=0.8. The reference r jase was not used to int erpret this result as normal/abnormal . [facility] HospitalPftbtnpKLNXAAQRNV9116-47-94 10:09:00 Test Item Value Reference Range Interpretation Comments Basophils (test code = 1.2 See_Comment [Aut omated message] The Basophils) system which ge nerated this result tra nsmitted reference range : <=1.0. The reference r jase was not used to int erpret this result as normal/abnormal . [facility] HospitalNszqxwaPBKMKGOXVB8826-24-10 10:09:00 Test Item Value Reference Range Interpretation Comments Eosinophils (test code = 7.7 See_Comment [A utomated message] The Eosinophils) system which ge nerated this result tra nsmitted reference range : <=4.0. The reference r jase was not used to int erpret this result as normal/abnormal . [facility] Hos[id number] 10:09:00 Test Item Value Reference Range Interpretation Comments Basophils # (test code 0.1 See_Comment [Aut omated message] The = Basophils #) system which generated this result tra nsmitted reference range : <=0.2. The reference r jase was not used to int erpret this result as normal/abnormal . [facility] HospitalLsdodldMUVSXGDEWT0176-57-37 10:09:00 Test Item Value Reference Range Interpretation Comments Segs (test code = Segs) 43.8 45.0-75.0 [facility] HospitalFlflirzDMTGPECLOW0760-96-40 10:09:00 Test Item Value Reference Range Interpretation Comments Monocytes (test code = Monocytes) 5.8 2.0-12.0 [facility] HospitalKbuxcokARRIVFKHSI3303-33-14 10:09:00 Test Item Value Reference Range Interpretation Comments Lymphocytes (test code = Lymphocytes) 41.5 20.0-40.0 [facility] HospitalRhjsxpfFGFEMOSMNE4390-36-05 10:09:00 Test Item Value Reference Range Interpretation Comments MCH (test code = MCH) 33.3 pg 27.0-31.0 [facility] Hos[id number] 10:09:00 Test Item Value Reference Range Interpretation Comments MCV (test code = MCV) 97.3 80.0-98.0 [facility] HospitalPbdabkoBQQEAMANAJ6113-54-52 10:09:00 Test Item Value Reference Range Interpretation Comments Platelet (test code = Platelet) 187 133-450 [facility] Hos[id number] 10:09:00 Test Item Value Reference Range Interpretation Comments RDW (test code = RDW) 13.4 11.5-14.5 [facility] HospitalUgtkritVHMMGWWLRT2009-94-19 10:09:00 Test Item Value Reference Range Interpretation Comments MCHC (test code = MCHC) 34.2 32.0-36.0 [facility] HospitalHlvnymwLMIQTKMHUT3016-66-45 10:09:00 Test Item Value Reference Range Interpretation Comments MPV (test code = MPV) 8.9 7.4-10.4 [facility] HospitalFawxjxcOJIOVHTBPC0492-22-11 10:09:00 Test Item Value Reference Range Interpretation Comments WBC (test code = WBC) 6.8 3.7-10.4 [facility] Ho[id number] 10:09:00 Test Item Value Reference Range Interpretation Comments RBC (test code = RBC) 3.43 4.20-5.40 [facility] HospitalPtcrqglAFGQHGKAVP8659-21-72 10:09:00 Test Item Value Reference Range Interpretation Comments Hct (test code = Hct) 33.3 36.0-48.0 [facility] HospitalLucelkuGMPBWNMXBF7780-22-97 10:09:00 Test Item Value Reference Range Interpretation Comments Hgb (test code = Hgb) 11.4 12.0-16.0 [facility]2015-04-23 10:09:00 Test Item Value Reference Range Interpretation Comments BUN (test code = BUN) 7 7-22 [facility]2015-04-23 10:09:00 Test Item Value Reference Range Interpretation Comments CO2 (test code = CO2) 25 24-32 [facility]2015-04-23 10:09:00 Test Item Value Reference Range Interpretation Comments Albumin Lvl (test code = Albumin Lvl) 2.8 3.5-5.0 [facility]2015-04-23 10:09:00 Test Item Value Reference Range Interpretation Comments eGFR (test code = eGFR) 122 [facility]2015-04-23 10:09:00 Test Item Value Reference Range Interpretation Comments ALT (test code = ALT) 175 See_Comment [Auto mated message] The system which ge nerated this result transmit owen reference range : <=65. The reference range was not used to interpr et this result as fredi l/abnormal. [facility]2015-04-23 10:09:00 Test Item Value Reference Range Interpretation Comments Bili Total (test code = Bili Total) 0.4 0.2-1.3 [facility]2015-04-23 10:09:00 Test Item Value Reference Range Interpretation Comments Alk Phos (test code = Alk Phos) 102 39-136 [facility]2015-04-23 10:09:00 Test Item Value Reference Range Interpretation Comments AST (test code = AST) 166 See_Comment [Auto mated message] The system which ge nerated this result transmit owen reference range : <=37. The reference range was not used to interpr et this result as fredi l/abnormal. [facility]2015-04-23 10:09:00 Test Item Value Reference Range Interpretation Comments Total Protein (test code = Total 5.7 6.4-8.4 Protein) [facility]2015-04-23 10:09:00 Test Item Value Reference Range Interpretation Comments Chloride Lvl (test code = Chloride Lvl) 106 95-109 [facility]2015-04-23 10:09:00 Test Item Value Reference Range Interpretation Comments Potassium Lvl (test code = Potassium 4.0 3.5-5.1 Lvl) [facility]2015-04-23 10:09:00 Test Item Value Reference Range Interpretation Comments Calcium Lvl (test code = Calcium Lvl) 8.3 8.5-10.5 [facility]2015-04-23 10:09:00 Test Item Value Reference Range Interpretation Comments Creatinine Lvl (test code = Creatinine 0.7 0.5-1.4 Lvl) [facility]2015-04-23 10:09:00 Test Item Value Reference Range Interpretation Comments Glucose Lvl (test code = Glucose Lvl) 134 70-99 [facility]2015-04-23 10:09:00 Test Item Value Reference Range Interpretation Comments Sodium Lvl (test code = Sodium Lvl) 139 135-145 [facility]2015-04-23 10:09:00 Test Item Value Reference Range Interpretation Comments A/G Ratio (test code = A/G Ratio) 1.0 0.7-1.6 [facility]2015-04-23 10:09:00 Test Item Value Reference Range Interpretation Comments Globulin (test code = Globulin) 2.9 2.0-4.0 [facility]2015-04-23 10:09:00 Test Item Value Reference Range Interpretation Comments AGAP (test code = AGAP) 12.0 10.0-20.0 [facility]2015-04-23 10:09:00 Test Item Value Reference Range Interpretation Comments B/C Ratio (test code = B/C Ratio) 10 6-25 [facility]2015-04-23 10:09:00 Test Item Value Reference Range Interpretation Comments Phosphorus (test code = Phosphorus) 2.5 2.5-4.5 [facility]2015-04-23 10:09:00 Test Item Value Reference Range Interpretation Comments Magnesium Lvl (test code = Magnesium 1.6 1.8-2.4 Lvl) [facility]2015-04-23 10:09:00 Test Item Value Reference Range Interpretation Comments Ketone Quantitative (test code = Ketone 0.07 Quantitative) [facility]HzvrcbrOSHNOFABZO7719-14-29 10:09:00 Test Item Value Reference Range Interpretation Comments Lymphocytes # (test code = Lymphocytes 2.8 1.0-5.5 #) [facility] HospitalPtjakcoEYVJPTLDZJ1994-25-55 10:09:00 Test Item Value Reference Range Interpretation Comments Segs-Bands # (test code = Segs-Bands #) 3.0 1.5-8.1 [facility] HospitalEoqhuohSQCTJKQXIJ0941-58-48 10:09:00 Test Item Value Reference Range Interpretation Comments Eosinophils # (test code 0.5 See_Comment [A utomated message] The = Eosinophils #) system whic h generated this result tra nsmitted reference range : <=0.5. The reference r jase was not used to int erpret this result as normal/abnormal . [facility] HospitalBmqxhbsRPATEDMSZT7127-69-30 10:09:00 Test Item Value Reference Range Interpretation Comments Monocytes # (test code 0.4 See_Comment [Aut omated message] The = Monocytes #) system which generated this result tra nsmitted reference range : <=0.8. The reference r jase was not used to int erpret this result as normal/abnormal . [facility] HospitalQuxhslgUTSLDQGCFB0763-80-91 10:09:00 Test Item Value Reference Range Interpretation Comments Basophils (test code = 1.2 See_Comment [Aut omated message] The Basophils) system which ge nerated this result tra nsmitted reference range : <=1.0. The reference r jase was not used to int erpret this result as normal/abnormal . [facility] HospitalJslgwozELZINEZNSB0030-56-64 10:09:00 Test Item Value Reference Range Interpretation Comments Eosinophils (test code = 7.7 See_Comment [A utomated message] The Eosinophils) system which ge nerated this result tra nsmitted reference range : <=4.0. The reference r jase was not used to int erpret this result as normal/abnormal . [facility] HospitalLvwdcoqUYWMTHPJWV2310-05-32 10:09:00 Test Item Value Reference Range Interpretation Comments Basophils # (test code 0.1 See_Comment [Aut omated message] The = Basophils #) system which generated this result tra nsmitted reference range : <=0.2. The reference r jase was not used to int erpret this result as normal/abnormal . [facility] HospitalGyagghxAZTWPUOVVL9510-61-57 10:09:00 Test Item Value Reference Range Interpretation Comments Segs (test code = Segs) 43.8 45.0-75.0 [facility] HospitalGtktralZTLMIVHOBF9500-75-81 10:09:00 Test Item Value Reference Range Interpretation Comments Monocytes (test code = Monocytes) 5.8 2.0-12.0 [facility] HospitalLzikjecYRKLLXXRHQ9612-42-43 10:09:00 Test Item Value Reference Range Interpretation Comments Lymphocytes (test code = Lymphocytes) 41.5 20.0-40.0 [facility] HospitalPjfhbaqSONVFKSSJW3483-05-94 10:09:00 Test Item Value Reference Range Interpretation Comments MCH (test code = MCH) 33.3 pg 27.0-31.0 [facility] HospitalCpcdvoqTOLDOVUZFU4369-35-45 10:09:00 Test Item Value Reference Range Interpretation Comments MCV (test code = MCV) 97.3 80.0-98.0 [facility] HospitalBesotydIHYSOISTLQ1598-30-49 10:09:00 Test Item Value Reference Range Interpretation Comments Platelet (test code = Platelet) 187 133-450 [facility] HospitalFhwewsyKALSXJAURN8376-82-65 10:09:00 Test Item Value Reference Range Interpretation Comments RDW (test code = RDW) 13.4 11.5-14.5 [facility] HospitalQwlzqjbSPFYEHMNCA7468-08-69 10:09:00 Test Item Value Reference Range Interpretation Comments MCHC (test code = MCHC) 34.2 32.0-36.0 [facility] HospitalVcldafnADXIODCCNV2296-82-00 10:09:00 Test Item Value Reference Range Interpretation Comments MPV (test code = MPV) 8.9 7.4-10.4 [facility] HospitalUtnhrpbVZDGENXOUO2303-86-16 10:09:00 Test Item Value Reference Range Interpretation Comments WBC (test code = WBC) 6.8 3.7-10.4 [facility] HospitalDwvwafgHYKAKQGTJV8191-34-80 10:09:00 Test Item Value Reference Range Interpretation Comments RBC (test code = RBC) 3.43 4.20-5.40 [facility] HospitalCeguidtUBUAMFWNMP1146-62-10 10:09:00 Test Item Value Reference Range Interpretation Comments Hct (test code = Hct) 33.3 36.0-48.0 [facility] HospitalIyxsdgvCFFPXPTFDG3524-05-78 10:09:00 Test Item Value Reference Range Interpretation Comments Hgb (test code = Hgb) 11.4 12.0-16.0 [facility]2015-04-23 10:09:00 Test Item Value Reference Range Interpretation Comments BUN (test code = BUN) 7 7-22 [facility]2015-04-23 10:09:00 Test Item Value Reference Range Interpretation Comments CO2 (test code = CO2) 25 24-32 [facility]2015-04-23 10:09:00 Test Item Value Reference Range Interpretation Comments Albumin Lvl (test code = Albumin Lvl) 2.8 3.5-5.0 [facility]2015-04-23 10:09:00 Test Item Value Reference Range Interpretation Comments eGFR (test code = eGFR) 122 [facility]2015-04-23 10:09:00 Test Item Value Reference Range Interpretation Comments ALT (test code = ALT) 175 See_Comment [Auto mated message] The system which ge nerated this result transmit owen reference range : <=65. The reference range was not used to interpr et this result as fredi l/abnormal. [facility]2015-04-23 10:09:00 Test Item Value Reference Range Interpretation Comments Bili Total (test code = Bili Total) 0.4 0.2-1.3 [facility]2015-04-23 10:09:00 Test Item Value Reference Range Interpretation Comments Alk Phos (test code = Alk Phos) 102 39-136 [facility]2015-04-23 10:09:00 Test Item Value Reference Range Interpretation Comments AST (test code = AST) 166 See_Comment [Auto mated message] The system which ge nerated this result transmit owen reference range : <=37. The reference range was not used to interpr et this result as fredi l/abnormal. [facility]2015-04-23 10:09:00 Test Item Value Reference Range Interpretation Comments Total Protein (test code = Total 5.7 6.4-8.4 Protein) [facility]2015-04-23 10:09:00 Test Item Value Reference Range Interpretation Comments Chloride Lvl (test code = Chloride Lvl) 106 95-109 [facility]2015-04-23 10:09:00 Test Item Value Reference Range Interpretation Comments Potassium Lvl (test code = Potassium 4.0 3.5-5.1 Lvl) [facility]2015-04-23 10:09:00 Test Item Value Reference Range Interpretation Comments Calcium Lvl (test code = Calcium Lvl) 8.3 8.5-10.5 [facility]2015-04-23 10:09:00 Test Item Value Reference Range Interpretation Comments Creatinine Lvl (test code = Creatinine 0.7 0.5-1.4 Lvl) [facility]2015-04-23 10:09:00 Test Item Value Reference Range Interpretation Comments Glucose Lvl (test code = Glucose Lvl) 134 70-99 [facility]2015-04-23 10:09:00 Test Item Value Reference Range Interpretation Comments Sodium Lvl (test code = Sodium Lvl) 139 135-145 [facility]2015-04-23 10:09:00 Test Item Value Reference Range Interpretation Comments A/G Ratio (test code = A/G Ratio) 1.0 0.7-1.6 [facility]2015-04-23 10:09:00 Test Item Value Reference Range Interpretation Comments Globulin (test code = Globulin) 2.9 2.0-4.0 [facility]2015-04-23 10:09:00 Test Item Value Reference Range Interpretation Comments AGAP (test code = AGAP) 12.0 10.0-20.0 [facility]2015-04-23 10:09:00 Test Item Value Reference Range Interpretation Comments B/C Ratio (test code = B/C Ratio) 10 6-25 [facility]2015-04-23 10:09:00 Test Item Value Reference Range Interpretation Comments Phosphorus (test code = Phosphorus) 2.5 2.5-4.5 [facility]2015-04-23 10:09:00 Test Item Value Reference Range Interpretation Comments Magnesium Lvl (test code = Magnesium 1.6 1.8-2.4 Lvl) [facility]2015-04-23 10:09:00 Test Item Value Reference Range Interpretation Comments Ketone Quantitative (test code = Ketone 0.07 Quantitative) [facility] HospitalDmedvjtMBEXWCXLDL5404-86-04 10:09:00 Test Item Value Reference Range Interpretation Comments Lymphocytes # (test code = Lymphocytes 2.8 1.0-5.5 #) [facility] HospitalEsvzjqnFCYBWYNZEY0338-35-26 10:09:00 Test Item Value Reference Range Interpretation Comments Segs-Bands # (test code = Segs-Bands #) 3.0 1.5-8.1 [facility] HospitalVpmaxtoCNBCIAPWGF9305-60-54 10:09:00 Test Item Value Reference Range Interpretation Comments Eosinophils # (test code 0.5 See_Comment [A utomated message] The = Eosinophils #) system whic h generated this result tra nsmitted reference range : <=0.5. The reference r jase was not used to int erpret this result as normal/abnormal . [facility] HospitalSricbeyQEEJOMZGAE2798-07-45 10:09:00 Test Item Value Reference Range Interpretation Comments Monocytes # (test code 0.4 See_Comment [Aut omated message] The = Monocytes #) system which generated this result tra nsmitted reference range : <=0.8. The reference r jase was not used to int erpret this result as normal/abnormal . [facility] HospitalIejmlavZKDULWWKFM4948-61-31 10:09:00 Test Item Value Reference Range Interpretation Comments Basophils (test code = 1.2 See_Comment [Aut omated message] The Basophils) system which ge nerated this result tra nsmitted reference range : <=1.0. The reference r jase was not used to int erpret this result as normal/abnormal . [facility] HospitalExrcnidBUDXOIWSWF1715-40-40 10:09:00 Test Item Value Reference Range Interpretation Comments Eosinophils (test code = 7.7 See_Comment [A utomated message] The Eosinophils) system which ge nerated this result tra nsmitted reference range : <=4.0. The reference r jase was not used to int erpret this result as normal/abnormal . [facility] HospitalPwzxivpPUJURZQZPU8997-24-18 10:09:00 Test Item Value Reference Range Interpretation Comments Basophils # (test code 0.1 See_Comment [Aut omated message] The = Basophils #) system which generated this result tra nsmitted reference range : <=0.2. The reference r jase was not used to int erpret this result as normal/abnormal . [facility] HospitalJzrmyvhTLDSWGEPEA0753-73-67 10:09:00 Test Item Value Reference Range Interpretation Comments Segs (test code = Segs) 43.8 45.0-75.0 [facility] HospitalEdnlygtVKRLWJAXAS0081-23-63 10:09:00 Test Item Value Reference Range Interpretation Comments Monocytes (test code = Monocytes) 5.8 2.0-12.0 [facility] HospitalGtejmrtILVVEJSTPC7306-85-58 10:09:00 Test Item Value Reference Range Interpretation Comments Lymphocytes (test code = Lymphocytes) 41.5 20.0-40.0 [facility] HospitalVkzqhaiJYBHWTFZZF9324-15-71 10:09:00 Test Item Value Reference Range Interpretation Comments MCH (test code = MCH) 33.3 pg 27.0-31.0 [facility] HospitalSphgigiSMYOXEWAGF2563-19-44 10:09:00 Test Item Value Reference Range Interpretation Comments MCV (test code = MCV) 97.3 80.0-98.0 [facility] HospitalMtdjetqFENYBWNXSZ6906-24-97 10:09:00 Test Item Value Reference Range Interpretation Comments Platelet (test code = Platelet) 187 133-450 [facility] HospitalPzjxlsuXJJCGTMPKP5595-26-14 10:09:00 Test Item Value Reference Range Interpretation Comments RDW (test code = RDW) 13.4 11.5-14.5 [facility] HospitalBuvuxgvSQSOBBNQVS4910-03-45 10:09:00 Test Item Value Reference Range Interpretation Comments MCHC (test code = MCHC) 34.2 32.0-36.0 [facility] HospitalZmsfzcjJLFMMZUTDH9184-12-24 10:09:00 Test Item Value Reference Range Interpretation Comments MPV (test code = MPV) 8.9 7.4-10.4 [facility] HospitalQtuwjbaTJIVVBWGYH3780-76-06 10:09:00 Test Item Value Reference Range Interpretation Comments WBC (test code = WBC) 6.8 3.7-10.4 [facility] HospitalAruuphgELUEBLZEVW1991-19-65 10:09:00 Test Item Value Reference Range Interpretation Comments RBC (test code = RBC) 3.43 4.20-5.40 [facility] HospitalCijxwqxRPYPWQBVCP7150-76-65 10:09:00 Test Item Value Reference Range Interpretation Comments Hct (test code = Hct) 33.3 36.0-48.0 [facility] HospitalCspxjdyRKOIESEHPN7012-79-68 10:09:00 Test Item Value Reference Range Interpretation Comments Hgb (test code = Hgb) 11.4 12.0-16.0 [facility]2015-04-23 06:43:00 Test Item Value Reference Range Interpretation Comments Ketone Quantitative (test code = Ketone 0.16 Quantitative) [facility]2015-04-23 06:43:00 Test Item Value Reference Range Interpretation Comments Ketone Quantitative (test code = Ketone 0.16 Quantitative) [facility]2015-04-23 06:43:00 Test Item Value Reference Range Interpretation Comments Ketone Quantitative (test code = Ketone 0.16 Quantitative) [facility]2015-04-22 18:09:00 Test Item Value Reference Range Interpretation Comments Magnesium Lvl (test code = Magnesium 2.2 1.8-2.4 Lvl) [facility]2015-04-22 18:09:00 Test Item Value Reference Range Interpretation Comments eGFR (test code = eGFR) 128 [facility]2015-04-22 18:09:00 Test Item Value Reference Range Interpretation Comments Calcium Lvl (test code = Calcium Lvl) 8.4 8.5-10.5 [facility]2015-04-22 18:09:00 Test Item Value Reference Range Interpretation Comments AGAP (test code = AGAP) 12.2 10.0-20.0 [facility]2015-04-22 18:09:00 Test Item Value Reference Range Interpretation Comments CO2 (test code = CO2) 24 24-32 [facility]2015-04-22 18:09:00 Test Item Value Reference Range Interpretation Comments Chloride Lvl (test code = Chloride Lvl) 108 95-109 [facility]2015-04-22 18:09:00 Test Item Value Reference Range Interpretation Comments Potassium Lvl (test code = Potassium 4.2 3.5-5.1 Lvl) [facility]2015-04-22 18:09:00 Test Item Value Reference Range Interpretation Comments Creatinine Lvl (test code = Creatinine 0.6 0.5-1.4 Lvl) [facility]2015-04-22 18:09:00 Test Item Value Reference Range Interpretation Comments Sodium Lvl (test code = Sodium Lvl) 140 135-145 [facility]2015-04-22 18:09:00 Test Item Value Reference Range Interpretation Comments Glucose Lvl (test code = Glucose Lvl) 107 70-99 [facility]2015-04-22 18:09:00 Test Item Value Reference Range Interpretation Comments BUN (test code = BUN) 3 7-22 [facility]2015-04-22 18:09:00 Test Item Value Reference Range Interpretation Comments Magnesium Lvl (test code = Magnesium 2.2 1.8-2.4 Lvl) [facility]2015-04-22 18:09:00 Test Item Value Reference Range Interpretation Comments eGFR (test code = eGFR) 128 [facility]2015-04-22 18:09:00 Test Item Value Reference Range Interpretation Comments Calcium Lvl (test code = Calcium Lvl) 8.4 8.5-10.5 [facility]2015-04-22 18:09:00 Test Item Value Reference Range Interpretation Comments AGAP (test code = AGAP) 12.2 10.0-20.0 [facility]2015-04-22 18:09:00 Test Item Value Reference Range Interpretation Comments CO2 (test code = CO2) [facility]2015-04-22 18:09:00 Test Item Value Reference Range Interpretation Comments Chloride Lvl (test code = Chloride Lvl) 108 95-109 [facility]2015-04-22 18:09:00 Test Item Value Reference Range Interpretation Comments Potassium Lvl (test code = Potassium 4.2 3.5-5.1 Lvl) [facility]2015-04-22 18:09:00 Test Item Value Reference Range Interpretation Comments Creatinine Lvl (test code = Creatinine 0.6 0.5-1.4 Lvl) [facility]2015-04-22 18:09:00 Test Item Value Reference Range Interpretation Comments Sodium Lvl (test code = Sodium Lvl) 140 135-145 [facility]2015-04-22 18:09:00 Test Item Value Reference Range Interpretation Comments Glucose Lvl (test code = Glucose Lvl) 107 70-99 [facility]2015-04-22 18:09:00 Test Item Value Reference Range Interpretation Comments BUN (test code = BUN) 12-06 [facility]2015-04-22 18:09:00 Test Item Value Reference Range Interpretation Comments Magnesium Lvl (test code = Magnesium 2.2 1.8-2.4 Lvl) [facility]2015-04-22 18:09:00 Test Item Value Reference Range Interpretation Comments eGFR (test code = eGFR) 128 [facility]2015-04-22 18:09:00 Test Item Value Reference Range Interpretation Comments Calcium Lvl (test code = Calcium Lvl) 8.4 8.5-10.5 [facility]2015-04-22 18:09:00 Test Item Value Reference Range Interpretation Comments AGAP (test code = AGAP) 12.2 10.0-20.0 [facility]2015-04-22 18:09:00 Test Item Value Reference Range Interpretation Comments CO2 (test code = CO2) 24 [facility]2015-04-22 18:09:00 Test Item Value Reference Range Interpretation Comments Chloride Lvl (test code = Chloride Lvl) 108 95-109 [facility]2015-04-22 18:09:00 Test Item Value Reference Range Interpretation Comments Potassium Lvl (test code = Potassium 4.2 3.5-5.1 Lvl) [facility]2015-04-22 18:09:00 Test Item Value Reference Range Interpretation Comments Creatinine Lvl (test code = Creatinine 0.6 0.5-1.4 Lvl) [facility]2015-04-22 18:09:00 Test Item Value Reference Range Interpretation Comments Sodium Lvl (test code = Sodium Lvl) 140 135-145 [facility]2015-04-22 18:09:00 Test Item Value Reference Range Interpretation Comments Glucose Lvl (test code = Glucose Lvl) 107 70-99 [facility]2015-04-22 18:09:00 Test Item Value Reference Range Interpretation Comments BUN (test code = BUN) 3 [facility]PNUWQJSZ0951[facility] 14:41:00 Test Item Value Reference Range Interpretation Comments Hep B Core IgM (test Negative *NA*(09/06/14 code = Hep B Core 9:41 AM) IgM) [facility]EbmsuvhAGYEQNAORZ1816-61-46 14:41:00 Test Item Value Reference Range Interpretation Comments Hep A IgM (test code Negative *NA*(09/06/14 = Hep A IgM) 9:41 AM) [facility]HjpzxpaXPRJYSADZC8565-98-59 14:41:00 Test Item Value Reference Range Interpretation Comments Hep Bs Ag (test code Negative *NA*(09/06/14 = Hep Bs Ag) 9:41 AM) [facility] CenterRmvhlivAXOCVODDNF6723-59-05 14:41:00 Test Item Value Reference Range Interpretation Comments Hep C Ab (test code = Negative *NA*(09/06/14 Hep C Ab) 9:41 AM) [facility] CenterXmdrkqiKUIJHRTHGQ4989-24-91 14:41:00 Test Item Value Reference Range Interpretation Comments Hep B Core IgM (test Negative *NA*(09/06/14 code = Hep B Core 9:41 AM) IgM) [facility] CenterBmcsrnyJMKEDYXQAI5941-62-22 14:41:00 Test Item Value Reference Range Interpretation Comments Hep A IgM (test code Negative *NA*(09/06/14 = Hep A IgM) 9:41 AM) [facility] CenterTmqquknZRFHBBHOWS5963-10-29 14:41:00 Test Item Value Reference Range Interpretation Comments Hep Bs Ag (test code Negative *NA*(09/06/14 = Hep Bs Ag) 9:41 AM) [facility]HvsoisbZDQROVBSCC1119-96-42 14:41:00 Test Item Value Reference Range Interpretation Comments Hep C Ab (test code = Negative *NA*(09/06/14 Hep C Ab) 9:41 AM) [facility]PpxyjbyGHBXVCWYIE8724-40-32 14:41:00 Test Item Value Reference Range Interpretation Comments Hep B Core IgM (test Negative *NA*(09/06/14 code = Hep B Core 9:41 AM) IgM) [facility]QibrkeaHWXKTIMBKL5199-42-84 14:41:00 Test Item Value Reference Range Interpretation Comments Hep A IgM (test code Negative *NA*(09/06/14 = Hep A IgM) 9:41 AM) [facility] HospitalXknrifaAYYKUNZJEK2116-28-85 14:41:00 Test Item Value Reference Range Interpretation Comments Hep Bs Ag (test code Negative *NA*(09/06/14 = Hep Bs Ag) 9:41 AM) [facility] HospitalBrwwtipHBXZWZXAKS1246-54-38 14:41:00 Test Item Value Reference Range Interpretation Comments Hep C Ab (test code = Negative *NA*(09/06/14 Hep C Ab) 9:41 AM) [facility] HospitalSoloLearn [id number] 10:00:00 Test Item Value Reference Range Interpretation Comments Phosphorus (test code = Phosphorus) 2.5 2.5-4.5 [facility]annS[facility] [id number] 10:00:00 Test Item Value Reference Range Interpretation Comments Magnesium Lvl (test code = Magnesium 1.7 1.8-2.4 Lvl) [facility]annCHEM [id number] 10:00:00 Test Item Value Reference Range Interpretation Comments Globulin (test code = Globulin) 2.7 2.0-4.0 [facility]annCHEM [id number] 10:00:00 Test Item Value Reference Range Interpretation Comments A/G Ratio (test code = A/G Ratio) 1.0 0.7-1.6 [facility]annSolo[facility] [id number] 10:00:00 Test Item Value Reference Range Interpretation Comments B/C Ratio (test code = B/C Ratio) 5 6[facility] [id number] 10:00:00 Test Item Value Reference Range Interpretation Comments AGAP (test code = AGAP) 10.3 10.0-20.0 [facility]2015-04-22 10:00:00 Test Item Value Reference Range Interpretation Comments eGFR (test code = eGFR) 104 [facility]2015-04-22 10:00:00 Test Item Value Reference Range Interpretation Comments Chloride Lvl (test code = Chloride Lvl) 111 95-109 [facility]2015-04-22 10:00:00 Test Item Value Reference Range Interpretation Comments Potassium Lvl (test code = Potassium 4.3 3.5-5.1 Lvl) [facility]2015-04-22 10:00:00 Test Item Value Reference Range Interpretation Comments CO2 (test code = CO2) 23 24-32 [facility]2015-04-22 10:00:00 Test Item Value Reference Range Interpretation Comments Sodium Lvl (test code = Sodium Lvl) 140 135-145 [facility]2015-04-22 10:00:00 Test Item Value Reference Range Interpretation Comments Creatinine Lvl (test code = Creatinine 0.8 0.5-1.4 Lvl) [facility]2015-04-22 10:00:00 Test Item Value Reference Range Interpretation Comments ALT (test code = ALT) 156 See_Comment [Auto mated message] The system which ge nerated this result transmit owen reference range : <=65. The reference range was not used to interpr et this result as fredi l/abnormal. [facility]2015-04-22 10:00:00 Test Item Value Reference Range Interpretation Comments AST (test code = AST) 319 See_Comment [Auto mated message] The system which ge nerated this result transmit owen reference range : <=37. The reference range was not used to interpr et this result as fredi l/abnormal. [facility]2015-04-22 10:00:00 Test Item Value Reference Range Interpretation Comments Calcium Lvl (test code = Calcium Lvl) 8.0 8.5-10.5 [facility]2015-04-22 10:00:00 Test Item Value Reference Range Interpretation Comments Total Protein (test code = Total 5.4 6.4-8.4 Protein) [facility]2015-04-22 10:00:00 Test Item Value Reference Range Interpretation Comments Albumin Lvl (test code = Albumin Lvl) 2.7 3.5-5.0 [facility]2015-04-22 10:00:00 Test Item Value Reference Range Interpretation Comments Alk Phos (test code = Alk Phos) 86 39-136 [facility]2015-04-22 10:00:00 Test Item Value Reference Range Interpretation Comments Bili Total (test code = Bili Total) 0.2 0.2-1.3 [facility]2015-04-22 10:00:00 Test Item Value Reference Range Interpretation Comments Glucose Lvl (test code = Glucose Lvl) 154 70-99 [facility]2015-04-22 10:00:00 Test Item Value Reference Range Interpretation Comments BUN (test code = BUN) 4 7-22 [facility] HospitalKfhmpqxFDGPMRNPIA8811-81-05 10:00:00 Test Item Value Reference Range Interpretation Comments Monocytes (test code = Monocytes) 6.5 2.0-12.0 [facility] HospitalIkbtbxoUDOLUNPRRJ0702-61-81 10:00:00 Test Item Value Reference Range Interpretation Comments Lymphocytes # (test code = Lymphocytes 2.8 1.0-5.5 #) [facility] HospitalTapwkuiEMOYBSBTOP3082-19-64 10:00:00 Test Item Value Reference Range Interpretation Comments Segs-Bands # (test code = Segs-Bands #) 3.9 1.5-8.1 [facility] HospitalPsrbivaKEPMZSKQDB0429-51-04 10:00:00 Test Item Value Reference Range Interpretation Comments Basophils (test code = 1.1 See_Comment [Aut omated message] The Basophils) system which ge nerated this result tra nsmitted reference range : <=1.0. The reference r jase was not used to int erpret this result as normal/abnormal . [facility] HospitalYtdbgkqGNNXBALMLR5290-10-63 10:00:00 Test Item Value Reference Range Interpretation Comments Lymphocytes (test code = Lymphocytes) 36.1 20.0-40.0 [facility] HospitalTpdjxlnNHJFJQQSYG6579-21-76 10:00:00 Test Item Value Reference Range Interpretation Comments Segs (test code = Segs) 51.2 45.0-75.0 [facility] HospitalFgkxvrfVGIGIHMPEP7431-86-20 10:00:00 Test Item Value Reference Range Interpretation Comments Macrocyte (test code = 1+ *ABN*(09/06/14 Macrocyte) 5:00 AM) [facility] HospitalGfilnhrHAJXUHGNGY6381-48-28 10:00:00 Test Item Value Reference Range Interpretation Comments Basophils # (test code 0.1 See_Comment [Aut omated message] The = Basophils #) system which generated this result tra nsmitted reference range : <=0.2. The reference r jase was not used to int erpret this result as normal/abnormal . [facility] HospitalVohdewqXOKXTKJSBA0698-07-50 10:00:00 Test Item Value Reference Range Interpretation Comments Eosinophils (test code = 5.1 See_Comment [A utomated message] The Eosinophils) system which ge nerated this result tra nsmitted reference range : <=4.0. The reference r jase was not used to int erpret this result as normal/abnormal . [facility] HospitalMbvuupqKRKPATCECG2709-44-39 10:00:00 Test Item Value Reference Range Interpretation Comments Eosinophils # (test code 0.4 See_Comment [A utomated message] The = Eosinophils #) system whic h generated this result tra nsmitted reference range : <=0.5. The reference r jase was not used to int erpret this result as normal/abnormal . [facility] HospitalSrckbnzDZDUTGOQHL1630-33-31 10:00:00 Test Item Value Reference Range Interpretation Comments Monocytes # (test code 0.5 See_Comment [Aut omated message] The = Monocytes #) system which generated this result tra nsmitted reference range : <=0.8. The reference r jase was not used to int erpret this result as normal/abnormal . [facility] HospitalQbddxucTJCULEQIQY3705-27-46 10:00:00 Test Item Value Reference Range Interpretation Comments MCH (test code = MCH) 33.6 pg 27.0-31.0 [facility] HospitalHkxqpkxYGZDNOJDRH2426-01-23 10:00:00 Test Item Value Reference Range Interpretation Comments MCV (test code = MCV) 99.4 80.0-98.0 [facility] HospitalVtterfiAZJSOEAYXM2589-53-59 10:00:00 Test Item Value Reference Range Interpretation Comments Platelet (test code = Platelet) 184 133-450 [facility] HospitalTiqpqwzIESMSHSQFT0733-54-62 10:00:00 Test Item Value Reference Range Interpretation Comments MPV (test code = MPV) 8.6 7.4-10.4 [facility] HospitalUvlyyxzHQZHUYQAQW2230-72-72 10:00:00 Test Item Value Reference Range Interpretation Comments RDW (test code = RDW) 13.5 11.5-14.5 [facility] HospitalVikegvzPYHZOVZVWY8332-21-84 10:00:00 Test Item Value Reference Range Interpretation Comments MCHC (test code = MCHC) 33.8 32.0-36.0 [facility] HospitalEqzrnpfVNPYBQHWNW2102-07-67 10:00:00 Test Item Value Reference Range Interpretation Comments RBC (test code = RBC) 3.47 4.20-5.40 [facility] HospitalJdbhtbyHFRBGIASVX6828-29-69 10:00:00 Test Item Value Reference Range Interpretation Comments Hct (test code = Hct) 34.5 36.0-48.0 [facility] HospitalXkcdpaqLQPHUDLVCD6807-35-93 10:00:00 Test Item Value Reference Range Interpretation Comments Hgb (test code = Hgb) 11.7 12.0-16.0 [facility] HospitalBrbyamaOEWGIBVYRI3203-13-78 10:00:00 Test Item Value Reference Range Interpretation Comments WBC (test code = WBC) 7.7 3.7-10.4 [facility]2015-04-22 10:00:00 Test Item Value Reference Range Interpretation Comments Phosphorus (test code = Phosphorus) 2.5 2.5-4.5 [facility]2015-04-22 10:00:00 Test Item Value Reference Range Interpretation Comments Magnesium Lvl (test code = Magnesium 1.7 1.8-2.4 Lvl) [facility]2015-04-22 10:00:00 Test Item Value Reference Range Interpretation Comments Globulin (test code = Globulin) 2.7 2.0-4.0 [facility]2015-04-22 10:00:00 Test Item Value Reference Range Interpretation Comments A/G Ratio (test code = A/G Ratio) 1.0 0.7-1.6 [facility]2015-04-22 10:00:00 Test Item Value Reference Range Interpretation Comments B/C Ratio (test code = B/C Ratio) 5 6-25 [facility]2015-04-22 10:00:00 Test Item Value Reference Range Interpretation Comments AGAP (test code = AGAP) 10.3 10.0-20.0 [facility]2015-04-22 10:00:00 Test Item Value Reference Range Interpretation Comments eGFR (test code = eGFR) 104 [facility]2015-04-22 10:00:00 Test Item Value Reference Range Interpretation Comments Chloride Lvl (test code = Chloride Lvl) 111 95-109 [facility]2015-04-22 10:00:00 Test Item Value Reference Range Interpretation Comments Potassium Lvl (test code = Potassium 4.3 3.5-5.1 Lvl) [facility]2015-04-22 10:00:00 Test Item Value Reference Range Interpretation Comments CO2 (test code = CO2) 23 24-32 [facility]2015-04-22 10:00:00 Test Item Value Reference Range Interpretation Comments Sodium Lvl (test code = Sodium Lvl) 140 135-145 [facility]2015-04-22 10:00:00 Test Item Value Reference Range Interpretation Comments Creatinine Lvl (test code = Creatinine 0.8 0.5-1.4 Lvl) [facility]2015-04-22 10:00:00 Test Item Value Reference Range Interpretation Comments ALT (test code = ALT) 156 See_Comment [Auto mated message] The system which ge nerated this result transmit owen reference range : <=65. The reference range was not used to interpr et this result as fredi l/abnormal. [facility]2015-04-22 10:00:00 Test Item Value Reference Range Interpretation Comments AST (test code = AST) 319 See_Comment [Auto mated message] The system which ge nerated this result transmit owen reference range : <=37. The reference range was not used to interpr et this result as fredi l/abnormal. [facility]2015-04-22 10:00:00 Test Item Value Reference Range Interpretation Comments Calcium Lvl (test code = Calcium Lvl) 8.0 8.5-10.5 [facility]2015-04-22 10:00:00 Test Item Value Reference Range Interpretation Comments Total Protein (test code = Total 5.4 6.4-8.4 Protein) [facility]2015-04-22 10:00:00 Test Item Value Reference Range Interpretation Comments Albumin Lvl (test code = Albumin Lvl) 2.7 3.5-5.0 [facility]2015-04-22 10:00:00 Test Item Value Reference Range Interpretation Comments Alk Phos (test code = Alk Phos) 86 39-136 [facility]2015-04-22 10:00:00 Test Item Value Reference Range Interpretation Comments Bili Total (test code = Bili Total) 0.2 0.2-1.3 [facility]2015-04-22 10:00:00 Test Item Value Reference Range Interpretation Comments Glucose Lvl (test code = Glucose Lvl) 154 70-99 [facility]2015-04-22 10:00:00 Test Item Value Reference Range Interpretation Comments BUN (test code = BUN) 4 7-22 [facility] HospitalFmwiphtJNVZDBBXSR8474-77-15 10:00:00 Test Item Value Reference Range Interpretation Comments Monocytes (test code = Monocytes) 6.5 2.0-12.0 [facility] HospitalYqihdtcJZFKWFOMNX7420-77-95 10:00:00 Test Item Value Reference Range Interpretation Comments Lymphocytes # (test code = Lymphocytes 2.8 1.0-5.5 #) [facility] HospitalVysdtnbMRXITULAGG5776-35-77 10:00:00 Test Item Value Reference Range Interpretation Comments Segs-Bands # (test code = Segs-Bands #) 3.9 1.5-8.1 [facility] HospitalJzyojcjBCCAUBCMLC8987-58-15 10:00:00 Test Item Value Reference Range Interpretation Comments Basophils (test code = 1.1 See_Comment [Aut omated message] The Basophils) system which ge nerated this result tra nsmitted reference range : <=1.0. The reference r jase was not used to int erpret this result as normal/abnormal . [facility] HospitalJhgzrioWLGZCZEBLV2843-71-79 10:00:00 Test Item Value Reference Range Interpretation Comments Lymphocytes (test code = Lymphocytes) 36.1 20.0-40.0 [facility] HospitalUnldeeqFRLVDIRTSP2165-36-81 10:00:00 Test Item Value Reference Range Interpretation Comments Segs (test code = Segs) 51.2 45.0-75.0 [facility] HospitalFddpimkEPKBNQUDCU0245-36-91 10:00:00 Test Item Value Reference Range Interpretation Comments Macrocyte (test code = 1+ *ABN*(09/06/14 Macrocyte) 5:00 AM) [facility] HospitalObxrrapTQCFQMMVTA5511-29-47 10:00:00 Test Item Value Reference Range Interpretation Comments Basophils # (test code 0.1 See_Comment [Aut omated message] The = Basophils #) system which generated this result tra nsmitted reference range : <=0.2. The reference r jase was not used to int erpret this result as normal/abnormal . [facility] HospitalCirswrnCFDVSCYWZU0502-41-76 10:00:00 Test Item Value Reference Range Interpretation Comments Eosinophils (test code = 5.1 See_Comment [A utomated message] The Eosinophils) system which ge nerated this result tra nsmitted reference range : <=4.0. The reference r jase was not used to int erpret this result as normal/abnormal . [facility] HospitalWcdtzrbBJMESRKUVW5888-77-89 10:00:00 Test Item Value Reference Range Interpretation Comments Eosinophils # (test code 0.4 See_Comment [A utomated message] The = Eosinophils #) system whic h generated this result tra nsmitted reference range : <=0.5. The reference r jase was not used to int erpret this result as normal/abnormal . [facility] HospitalCmyxvesKSHVCQHUZQ3616-13-49 10:00:00 Test Item Value Reference Range Interpretation Comments Monocytes # (test code 0.5 See_Comment [Aut omated message] The = Monocytes #) system which generated this result tra nsmitted reference range : <=0.8. The reference r jase was not used to int erpret this result as normal/abnormal . [facility] HospitalAdjciosJDGEMNUDIC1464-06-33 10:00:00 Test Item Value Reference Range Interpretation Comments MCH (test code = MCH) 33.6 pg 27.0-31.0 [facility] HospitalWlxfurgJLSBOZVQIC9321-08-47 10:00:00 Test Item Value Reference Range Interpretation Comments MCV (test code = MCV) 99.4 80.0-98.0 [facility] HospitalVqpeegqNTFGOZANFY2887-74-43 10:00:00 Test Item Value Reference Range Interpretation Comments Platelet (test code = Platelet) 184 133-450 [facility] HospitalWlwkiklPAPGKSLVPN3147-98-66 10:00:00 Test Item Value Reference Range Interpretation Comments MPV (test code = MPV) 8.6 7.4-10.4 [facility] HospitalBfjcjlxNOMUKMMHSC3838-88-82 10:00:00 Test Item Value Reference Range Interpretation Comments RDW (test code = RDW) 13.5 11.5-14.5 [facility] HospitalThzuhgyGYZQOQULKU9175-53-31 10:00:00 Test Item Value Reference Range Interpretation Comments MCHC (test code = MCHC) 33.8 32.0-36.0 [facility] HospitalBarvspjYQUFMPXXTT0393-91-18 10:00:00 Test Item Value Reference Range Interpretation Comments RBC (test code = RBC) 3.47 4.20-5.40 [facility] HospitalKhctyopUPPOEURHDG0259-85-45 10:00:00 Test Item Value Reference Range Interpretation Comments Hct (test code = Hct) 34.5 36.0-48.0 [facility] HospitalNfbnstbLWYZWHOTHC6872-07-25 10:00:00 Test Item Value Reference Range Interpretation Comments Hgb (test code = Hgb) 11.7 12.0-16.0 [facility] HospitalJmnnbjiHKPAZXWDXZ4770-63-84 10:00:00 Test Item Value Reference Range Interpretation Comments WBC (test code = WBC) 7.7 3.7-10.4 [facility]2015-04-22 10:00:00 Test Item Value Reference Range Interpretation Comments Phosphorus (test code = Phosphorus) 2.5 2.5-4.5 [facility]2015-04-22 10:00:00 Test Item Value Reference Range Interpretation Comments Magnesium Lvl (test code = Magnesium 1.7 1.8-2.4 Lvl) [facility]2015-04-22 10:00:00 Test Item Value Reference Range Interpretation Comments Globulin (test code = Globulin) 2.7 2.0-4.0 [facility]2015-04-22 10:00:00 Test Item Value Reference Range Interpretation Comments A/G Ratio (test code = A/G Ratio) 1.0 0.7-1.6 [facility]2015-04-22 10:00:00 Test Item Value Reference Range Interpretation Comments B/C Ratio (test code = B/C Ratio) 5 6-25 [facility]2015-04-22 10:00:00 Test Item Value Reference Range Interpretation Comments AGAP (test code = AGAP) 10.3 10.0-20.0 [facility]2015-04-22 10:00:00 Test Item Value Reference Range Interpretation Comments eGFR (test code = eGFR) 104 [facility]2015-04-22 10:00:00 Test Item Value Reference Range Interpretation Comments Chloride Lvl (test code = Chloride Lvl) 111 95-109 [facility]2015-04-22 10:00:00 Test Item Value Reference Range Interpretation Comments Potassium Lvl (test code = Potassium 4.3 3.5-5.1 Lvl) [facility]2015-04-22 10:00:00 Test Item Value Reference Range Interpretation Comments CO2 (test code = CO2) 23 24-32 [facility]2015-04-22 10:00:00 Test Item Value Reference Range Interpretation Comments Sodium Lvl (test code = Sodium Lvl) 140 135-145 [facility]2015-04-22 10:00:00 Test Item Value Reference Range Interpretation Comments Creatinine Lvl (test code = Creatinine 0.8 0.5-1.4 Lvl) [facility]2015-04-22 10:00:00 Test Item Value Reference Range Interpretation Comments ALT (test code = ALT) 156 See_Comment [Auto mated message] The system which ge nerated this result transmit owen reference range : <=65. The reference range was not used to interpr et this result as fredi l/abnormal. [facility]2015-04-22 10:00:00 Test Item Value Reference Range Interpretation Comments AST (test code = AST) 319 See_Comment [Auto mated message] The system which ge nerated this result transmit owen reference range : <=37. The reference range was not used to interpr et this result as fredi l/abnormal. [facility]2015-04-22 10:00:00 Test Item Value Reference Range Interpretation Comments Calcium Lvl (test code = Calcium Lvl) 8.0 8.5-10.5 [facility]2015-04-22 10:00:00 Test Item Value Reference Range Interpretation Comments Total Protein (test code = Total 5.4 6.4-8.4 Protein) [facility]2015-04-22 10:00:00 Test Item Value Reference Range Interpretation Comments Albumin Lvl (test code = Albumin Lvl) 2.7 3.5-5.0 [facility]2015-04-22 10:00:00 Test Item Value Reference Range Interpretation Comments Alk Phos (test code = Alk Phos) 86 39-136 [facility]2015-04-22 10:00:00 Test Item Value Reference Range Interpretation Comments Bili Total (test code = Bili Total) 0.2 0.2-1.3 [facility]2015-04-22 10:00:00 Test Item Value Reference Range Interpretation Comments Glucose Lvl (test code = Glucose Lvl) 154 70-99 [facility]2015-04-22 10:00:00 Test Item Value Reference Range Interpretation Comments BUN (test code = BUN) 4 7-22 [facility] HospitalFaotyzaNOGQOLATKO8189-44-69 10:00:00 Test Item Value Reference Range Interpretation Comments Monocytes (test code = Monocytes) 6.5 2.0-12.0 [facility] HospitalDvhisbgGXLOVTNFIK3866-59-90 10:00:00 Test Item Value Reference Range Interpretation Comments Lymphocytes # (test code = Lymphocytes 2.8 1.0-5.5 #) [facility] HospitalDyrutqaQDWOOIGMLM5822-46-01 10:00:00 Test Item Value Reference Range Interpretation Comments Segs-Bands # (test code = Segs-Bands #) 3.9 1.5-8.1 [facility] HospitalZjmlmtfWWHZWXYVVJ3377-52-56 10:00:00 Test Item Value Reference Range Interpretation Comments Basophils (test code = 1.1 See_Comment [Aut omated message] The Basophils) system which ge nerated this result tra nsmitted reference range : <=1.0. The reference r jase was not used to int erpret this result as normal/abnormal . [facility] HospitalMrekhyiYAIOJOPYDL3268-90-49 10:00:00 Test Item Value Reference Range Interpretation Comments Lymphocytes (test code = Lymphocytes) 36.1 20.0-40.0 [facility] HospitalPxvrvibZANTBNRULG9487-83-57 10:00:00 Test Item Value Reference Range Interpretation Comments Segs (test code = Segs) 51.2 45.0-75.0 [facility] HospitalQgwflgwHAMUSLQSDL0707-90-61 10:00:00 Test Item Value Reference Range Interpretation Comments Macrocyte (test code = 1+ *ABN*(09/06/14 Macrocyte) 5:00 AM) [facility] HospitalXcistkcPOICVRLZTP0983-61-13 10:00:00 Test Item Value Reference Range Interpretation Comments Basophils # (test code 0.1 See_Comment [Aut omated message] The = Basophils #) system which generated this result tra nsmitted reference range : <=0.2. The reference r jase was not used to int erpret this result as normal/abnormal . [facility] HospitalSurfmjeICBFGKVYBI2276-60-63 10:00:00 Test Item Value Reference Range Interpretation Comments Eosinophils (test code = 5.1 See_Comment [A utomated message] The Eosinophils) system which ge nerated this result tra nsmitted reference range : <=4.0. The reference r jase was not used to int erpret this result as normal/abnormal . [facility] HospitalWncjvfzPMVGXRXXJD6709-66-79 10:00:00 Test Item Value Reference Range Interpretation Comments Eosinophils # (test code 0.4 See_Comment [A utomated message] The = Eosinophils #) system whic h generated this result tra nsmitted reference range : <=0.5. The reference r jase was not used to int erpret this result as normal/abnormal . [facility] HospitalBgijxlqKKMLSMFQYM2483-93-77 10:00:00 Test Item Value Reference Range Interpretation Comments Monocytes # (test code 0.5 See_Comment [Aut omated message] The = Monocytes #) system which generated this result tra nsmitted reference range : <=0.8. The reference r jase was not used to int erpret this result as normal/abnormal . [facility] HospitalUujehzzXBPFPQKKYT1718-76-90 10:00:00 Test Item Value Reference Range Interpretation Comments MCH (test code = MCH) 33.6 pg 27.0-31.0 [facility] HospitalZfmdjsjQJDBFHERNT1678-82-73 10:00:00 Test Item Value Reference Range Interpretation Comments MCV (test code = MCV) 99.4 80.0-98.0 [facility] HospitalSebtbsbYHCXOTFMZF9662-84-15 10:00:00 Test Item Value Reference Range Interpretation Comments Platelet (test code = Platelet) 184 133-450 [facility] HospitalMmqzefzMZNJEBZXVG5764-45-54 10:00:00 Test Item Value Reference Range Interpretation Comments MPV (test code = MPV) 8.6 7.4-10.4 [facility] HospitalWwtogpxQZHCAHKCMH2598-74-84 10:00:00 Test Item Value Reference Range Interpretation Comments RDW (test code = RDW) 13.5 11.5-14.5 [facility] HospitalHgqlatjBPDSWHLBLL2471-67-17 10:00:00 Test Item Value Reference Range Interpretation Comments MCHC (test code = MCHC) 33.8 32.0-36.0 [facility] HospitalPdpnvwcLFOEZJWRDX1466-75-33 10:00:00 Test Item Value Reference Range Interpretation Comments RBC (test code = RBC) 3.47 4.20-5.40 [facility] HospitalUacpikbKFZSAPJWXF0599-16-07 10:00:00 Test Item Value Reference Range Interpretation Comments Hct (test code = Hct) 34.5 36.0-48.0 [facility] HospitalSidpixlUHQPRHDPNG2196-17-65 10:00:00 Test Item Value Reference Range Interpretation Comments Hgb (test code = Hgb) 11.7 12.0-16.0 [facility] HospitalFtqqwlmTTVMJANVWY1936-62-12 10:00:00 Test Item Value Reference Range Interpretation Comments WBC (test code = WBC) 7.7 3.7-10.4 [facility] [facility]df[facility]CO[facility]PLHV7131-55-46 13:00:00 Test Item Value Reference Range Interpretation Comments WBC (test code = WBC) 8.4 3.7-10.4 [facility] HospitalYixetjoVSRPDWRWOJ4626-24-06 13:00:00 Test Item Value Reference Range Interpretation Comments Hgb (test code = Hgb) 11.7 12.0-16.0 [facility] HospitalAogjxlsBEHDRKNYAK1890-96-16 13:00:00 Test Item Value Reference Range Interpretation Comments MPV (test code = MPV) 8.9 7.4-10.4 [facility] HospitalMrbilbrSNDLXHGTPJ5401-95-19 13:00:00 Test Item Value Reference Range Interpretation Comments MCV (test code = MCV) 99.3 80.0-98.0 [facility] HospitalMiycmvkAQQRQDAEAV4599-80-64 13:00:00 Test Item Value Reference Range Interpretation Comments RBC (test code = RBC) 3.49 4.20-5.40 [facility] HospitalZdxhctcJPBAJQEBWI9094-13-05 13:00:00 Test Item Value Reference Range Interpretation Comments Hct (test code = Hct) 34.6 36.0-48.0 [facility] HospitalIiaqazhOUGTLNNECA0931-02-71 13:00:00 Test Item Value Reference Range Interpretation Comments MCH (test code = MCH) 33.5 pg 27.0-31.0 [facility] HospitalNpbacnaGTVFZPHEIH7187-54-26 13:00:00 Test Item Value Reference Range Interpretation Comments Platelet (test code = Platelet) 219 133-450 [facility] HospitalSxsyhkwXEGPKLMHPI8460-14-66 13:00:00 Test Item Value Reference Range Interpretation Comments RDW (test code = RDW) 13.7 11.5-14.5 [facility] HospitalPkjicunVZIOFGIFKD0449-47-84 13:00:00 Test Item Value Reference Range Interpretation Comments MCHC (test code = MCHC) 33.7 32.0-36.0 [facility] HospitalZdqsisuYFFLPBJDQU0020-99-19 13:00:00 Test Item Value Reference Range Interpretation Comments Macrocyte (test code = 1+ *ABN*(09/05/14 Macrocyte) 8:00 AM) [facility] HospitalVtuzuwbQLIPTVQPXS1619-44-41 13:00:00 Test Item Value Reference Range Interpretation Comments Basophils # (test code 0.1 See_Comment [Aut omated message] The = Basophils #) system which generated this result tra nsmitted reference range : <=0.2. The reference r jase was not used to int erpret this result as normal/abnormal . [facility] HospitalCxinwmcUYLGUDJWCJ4011-84-01 13:00:00 Test Item Value Reference Range Interpretation Comments Basophils (test code = 0.8 See_Comment [Aut omated message] The Basophils) system which ge nerated this result tra nsmitted reference range : <=1.0. The reference r jase was not used to int erpret this result as normal/abnormal . [facility] HospitalPlokdevHEEFXXIHAR3116-71-22 13:00:00 Test Item Value Reference Range Interpretation Comments Lymphocytes (test code = Lymphocytes) 36.4 20.0-40.0 [facility] HospitalXajchmmRSORXRQMXZ1910-69-54 13:00:00 Test Item Value Reference Range Interpretation Comments Segs (test code = Segs) 50.9 45.0-75.0 [facility] HospitalOdwttfcJVOJHTJINF5621-77-15 13:00:00 Test Item Value Reference Range Interpretation Comments Monocytes (test code = Monocytes) 6.6 2.0-12.0 [facility] HospitalMfxfsnnOSPXJLPVQX0417-25-61 13:00:00 Test Item Value Reference Range Interpretation Comments Eosinophils # (test code 0.4 See_Comment [A utomated message] The = Eosinophils #) system whic h generated this result tra nsmitted reference range : <=0.5. The reference r jase was not used to int erpret this result as normal/abnormal . [facility] HospitalNkdtkaiMCVFFTPWDT4555-12-77 13:00:00 Test Item Value Reference Range Interpretation Comments Lymphocytes # (test code = Lymphocytes 3.1 1.0-5.5 #) [facility] HospitalJakbgxsFIZDWNMFRA8357-54-06 13:00:00 Test Item Value Reference Range Interpretation Comments Monocytes # (test code 0.6 See_Comment [Aut omated message] The = Monocytes #) system which generated this result tra nsmitted reference range : <=0.8. The reference r jase was not used to int erpret this result as normal/abnormal . [facility] HospitalXknsshlVUVREDULTJ6575-53-64 13:00:00 Test Item Value Reference Range Interpretation Comments Eosinophils (test code = 5.3 See_Comment [A utomated message] The Eosinophils) system which ge nerated this result tra nsmitted reference range : <=4.0. The reference r jase was not used to int erpret this result as normal/abnormal . [facility] HospitalWcbouvkBFXEAQPORU5920-17-98 13:00:00 Test Item Value Reference Range Interpretation Comments Segs-Bands # (test code = Segs-Bands #) 4.3 1.5-8.1 [facility] HospitalUsfllntUNYPYNJXCG1683-55-93 13:00:00 Test Item Value Reference Range Interpretation Comments WBC (test code = WBC) 8.4 3.7-10.4 [facility] HospitalPwjugbjACKCINCZFF6087-85-32 13:00:00 Test Item Value Reference Range Interpretation Comments Hgb (test code = Hgb) 11.7 12.0-16.0 [facility] HospitalJrskednCBRXAOLYYP7613-73-89 13:00:00 Test Item Value Reference Range Interpretation Comments MPV (test code = MPV) 8.9 7.4-10.4 [facility] HospitalWghymabVRUMUWZXEM1723-09-85 13:00:00 Test Item Value Reference Range Interpretation Comments MCV (test code = MCV) 99.3 80.0-98.0 [facility] HospitalEqwxlqzHDSTISYRGF8066-12-68 13:00:00 Test Item Value Reference Range Interpretation Comments RBC (test code = RBC) 3.49 4.20-5.40 [facility] HospitalPohcuwrSMBJIGVWLZ5365-58-10 13:00:00 Test Item Value Reference Range Interpretation Comments Hct (test code = Hct) 34.6 36.0-48.0 [facility] HospitalNuvjrznQMSNDCBKFZ3655-62-02 13:00:00 Test Item Value Reference Range Interpretation Comments MCH (test code = MCH) 33.5 pg 27.0-31.0 [facility] HospitalDzpwmtkLZCQKXTIGB2360-66-47 13:00:00 Test Item Value Reference Range Interpretation Comments Platelet (test code = Platelet) 219 133-450 [facility] HospitalMswcgynLLCLJPARQD9952-54-17 13:00:00 Test Item Value Reference Range Interpretation Comments RDW (test code = RDW) 13.7 11.5-14.5 [facility] HospitalHvpbhlwGCQXBQWDVR4995-12-32 13:00:00 Test Item Value Reference Range Interpretation Comments MCHC (test code = MCHC) 33.7 32.0-36.0 [facility] HospitalAireglaEKRNICHADD9257-50-87 13:00:00 Test Item Value Reference Range Interpretation Comments Macrocyte (test code = 1+ *ABN*(09/05/14 Macrocyte) 8:00 AM) [facility] HospitalYiinsfzWEQQTTDIPT2962-35-22 13:00:00 Test Item Value Reference Range Interpretation Comments Basophils # (test code 0.1 See_Comment [Aut omated message] The = Basophils #) system which generated this result tra nsmitted reference range : <=0.2. The reference r jase was not used to int erpret this result as normal/abnormal . [facility] HospitalNxnltukBNMMYYYEIN3746-38-48 13:00:00 Test Item Value Reference Range Interpretation Comments Basophils (test code = 0.8 See_Comment [Aut omated message] The Basophils) system which ge nerated this result tra nsmitted reference range : <=1.0. The reference r jase was not used to int erpret this result as normal/abnormal . [facility] HospitalBskleesCQFJZDUZTH5763-81-35 13:00:00 Test Item Value Reference Range Interpretation Comments Lymphocytes (test code = Lymphocytes) 36.4 20.0-40.0 [facility] HospitalFgkflrkJBZCTBEEGX4503-90-10 13:00:00 Test Item Value Reference Range Interpretation Comments Segs (test code = Segs) 50.9 45.0-75.0 [facility] HospitalIttapbeQCXDSJYQUM2106-16-09 13:00:00 Test Item Value Reference Range Interpretation Comments Monocytes (test code = Monocytes) 6.6 2.0-12.0 [facility] HospitalIldnuomTDHTALWRVE9530-45-62 13:00:00 Test Item Value Reference Range Interpretation Comments Eosinophils # (test code 0.4 See_Comment [A utomated message] The = Eosinophils #) system whic h generated this result tra nsmitted reference range : <=0.5. The reference r jase was not used to int erpret this result as normal/abnormal . [facility] HospitalMaeyoumRWQMURIEPH9990-04-87 13:00:00 Test Item Value Reference Range Interpretation Comments Lymphocytes # (test code = Lymphocytes 3.1 1.0-5.5 #) [facility] HospitalVedxuixNIAWJWJABR0386-91-60 13:00:00 Test Item Value Reference Range Interpretation Comments Monocytes # (test code 0.6 See_Comment [Aut omated message] The = Monocytes #) system which generated this result tra nsmitted reference range : <=0.8. The reference r jase was not used to int erpret this result as normal/abnormal . [facility] HospitalUbopbrmSJMBUCFYGA5561-49-76 13:00:00 Test Item Value Reference Range Interpretation Comments Eosinophils (test code = 5.3 See_Comment [A utomated message] The Eosinophils) system which ge nerated this result tra nsmitted reference range : <=4.0. The reference r jase was not used to int erpret this result as normal/abnormal . [facility] HospitalXkvjdyeERFZYFZJCE9973-14-79 13:00:00 Test Item Value Reference Range Interpretation Comments Segs-Bands # (test code = Segs-Bands #) 4.3 1.5-8.1 [facility] HospitalGmwjaicGZJETAEDVP7079-93-22 13:00:00 Test Item Value Reference Range Interpretation Comments WBC (test code = WBC) 8.4 3.7-10.4 [facility] HospitalEkyabdqMPHQMULYAY8574-82-91 13:00:00 Test Item Value Reference Range Interpretation Comments Hgb (test code = Hgb) 11.7 12.0-16.0 [facility] HospitalXsvhbwzKBMMVMERQJ3330-63-42 13:00:00 Test Item Value Reference Range Interpretation Comments MPV (test code = MPV) 8.9 7.4-10.4 [facility] HospitalRhhdclqEXYMFTYSMH5764-96-80 13:00:00 Test Item Value Reference Range Interpretation Comments MCV (test code = MCV) 99.3 80.0-98.0 [facility] HospitalZewactcUQGDPKNHIK9487-18-49 13:00:00 Test Item Value Reference Range Interpretation Comments RBC (test code = RBC) 3.49 4.20-5.40 [facility] HospitalLyqgtmaPJCGEDYISH9762-43-73 13:00:00 Test Item Value Reference Range Interpretation Comments Hct (test code = Hct) 34.6 36.0-48.0 [facility] HospitalTmubudjZSVXSLXMEQ1378-24-98 13:00:00 Test Item Value Reference Range Interpretation Comments MCH (test code = MCH) 33.5 pg 27.0-31.0 [facility] HospitalRkejahtPNXPSIBQTW7735-38-71 13:00:00 Test Item Value Reference Range Interpretation Comments Platelet (test code = Platelet) 219 133-450 [facility] HospitalWdohqwyXWCIOMAIQF4279-16-41 13:00:00 Test Item Value Reference Range Interpretation Comments RDW (test code = RDW) 13.7 11.5-14.5 [facility] HospitalXhjtagqKTHPOEVJGZ4764-29-20 13:00:00 Test Item Value Reference Range Interpretation Comments MCHC (test code = MCHC) 33.7 32.0-36.0 [facility] HospitalMlijwubCLJXIXLDZK2691-61-40 13:00:00 Test Item Value Reference Range Interpretation Comments Macrocyte (test code = 1+ *ABN*(09/05/14 Macrocyte) 8:00 AM) [facility] HospitalDwuvvrbQALUBFKAJH6694-94-71 13:00:00 Test Item Value Reference Range Interpretation Comments Basophils # (test code 0.1 See_Comment [Aut omated message] The = Basophils #) system which generated this result tra nsmitted reference range : <=0.2. The reference r jase was not used to int erpret this result as normal/abnormal . [facility] HospitalXwqtkjdEJZQKPFSBC2652-32-01 13:00:00 Test Item Value Reference Range Interpretation Comments Basophils (test code = 0.8 See_Comment [Aut omated message] The Basophils) system which ge nerated this result tra nsmitted reference range : <=1.0. The reference r jase was not used to int erpret this result as normal/abnormal . [facility] HospitalXblspqaAXKJINJSOV7485-99-12 13:00:00 Test Item Value Reference Range Interpretation Comments Lymphocytes (test code = Lymphocytes) 36.4 20.0-40.0 [facility] HospitalQespremFVLYXCMHYL7222-14-23 13:00:00 Test Item Value Reference Range Interpretation Comments Segs (test code = Segs) 50.9 45.0-75.0 [facility] HospitalZbovdkdDKMSLUHQPY7451-94-80 13:00:00 Test Item Value Reference Range Interpretation Comments Monocytes (test code = Monocytes) 6.6 2.0-12.0 [facility] HospitalOlrttxwEAGBIPESDV8896-72-95 13:00:00 Test Item Value Reference Range Interpretation Comments Eosinophils # (test code 0.4 See_Comment [A utomated message] The = Eosinophils #) system ic h generated this result tra nsmitted reference range : <=0.5. The reference r jase was not used to int erpret this result as normal/abnormal . [facility] HospitalUprexwuBXFRXIFIWV6361-20-05 13:00:00 Test Item Value Reference Range Interpretation Comments Lymphocytes # (test code = Lymphocytes 3.1 1.0-5.5 #) [facility] HospitalGxiquwlEJRIZHWLAK1740-28-61 13:00:00 Test Item Value Reference Range Interpretation Comments Monocytes # (test code 0.6 See_Comment [Aut omated message] The = Monocytes #) system which generated this result tra nsmitted reference range : <=0.8. The reference r jase was not used to int erpret this result as normal/abnormal . [facility] HospitalFdemczlWZUTPQKYBX8694-99-63 13:00:00 Test Item Value Reference Range Interpretation Comments Eosinophils (test code = 5.3 See_Comment [A utomated message] The Eosinophils) system which ge nerated this result tra nsmitted reference range : <=4.0. The reference r jase was not used to int erpret this result as normal/abnormal . [facility] HospitalZnjhoevXGOYVMTUCW5244-29-58 13:00:00 Test Item Value Reference Range Interpretation Comments Segs-Bands # (test code = Segs-Bands #) 4.3 1.5-8.1 [facility] [id number] 09:55:00 Test Item Value Reference Range Interpretation Comments Phosphorus (test code = Phosphorus) 2.3 2.5-4.5 [facility] [id number] 09:55:00 Test Item Value Reference Range Interpretation Comments Phosphorus (test code = Phosphorus) 2.3 2.5-4.5 [facility] [id number] 09:55:00 Test Item Value Reference Range Interpretation Comments Phosphorus (test code = Phosphorus) 2.3 2.5-4.5 [facility] [id number] 21:18:00 Test Item Value Reference Range Interpretation Comments Hgb A1C (test code = Hgb A1C) 9.9 [facility] BDSGRSNWH0110-72-88 21:18:00 Test Item Value Reference Range Interpretation Comments Hgb A1C (test code = Hgb A1C) 9.9 [facility] [id number] 21:18:00 Test Item Value Reference Range Interpretation Comments Hgb A1C (test code = Hgb A1C) 9.9 [facility] [id number] 17:20:00 Test Item Value Reference Range Interpretation Comments Lipase Lvl (test code = Lipase Lvl) 154 73-393 [facility] [id number] 17:20:00 Test Item Value Reference Range Interpretation Comments UA Bacteria (test code = UA Few /HPF Bacteria) [facility] [id number] 17:20:00 Test Item Value Reference Range Interpretation Comments UA WBC (test code = UA WBC) 0-2 /HPF [facility] [id number] 17:20:00 Test Item Value Reference Range Interpretation Comments UA RBC (test code = 0-2 /HPF See_Comment [Automa owen message] The UA RBC) system which ge nerated this result tra nsmitted reference range : <=2. The reference range was not used to interpr et this result as fredi l/abnormal. [facility] [id number] 17:20:00 Test Item Value Reference Range Interpretation Comments UA Sq Epi (test code = UA Sq Epi) Few /LPF [facility] [id number] 17:20:00 Test Item Value Reference Range Interpretation Comments UA Turbidity (test code = Clear (09/04/14 12:20 UA Turbidity) PM) [facility] [id number] 17:20:00 Test Item Value Reference Range Interpretation Comments UA Color (test code = UA Color) STRAW [facility] [id number] 17:20:00 Test Item Value Reference Range Interpretation Comments UA Ketones (test code = UA >=80 mg/dL Ketones) [facility] [id number] 17:20:00 Test Item Value Reference Range Interpretation Comments UA Spec Grav (test code = UA Spec 1.010 1 Grav) [facility] AND [id number] 17:20:00 Test Item Value Reference Range Interpretation Comments UA Glucose (test code = UA >=1000 mg/dL Glucose) [facility] AND [id number] 17:20:00 Test Item Value Reference Range Interpretation Comments UA pH (test code = UA pH) 5.5 1 5.0-8.0 [facility] [id number] 17:20:00 Test Item Value Reference Range Interpretation Comments UA Protein (test code Negative (09/04/14 12:20 = UA Protein) PM) [facility] AND [id number] 17:20:00 Test Item Value Reference Range Interpretation Comments UA Leuk Est (test Negative (09/04/14 12:20 code = UA Leuk Est) PM) [facility] [id number] 17:20:00 Test Item Value Reference Range Interpretation Comments UA Urobilinogen (test code = UA 0.2 0.1-1.0 Urobilinogen) [facility] [id number] 17:20:00 Test Item Value Reference Range Interpretation Comments UA Nitrite (test code Negative (09/04/14 12:20 = UA Nitrite) PM) [facility] [id number] 17:20:00 Test Item Value Reference Range Interpretation Comments UA Bili (test code = Negative *NA*(09/04/14 UA Bili) 12:20 PM) [facility] [id number] 17:20:00 Test Item Value Reference Range Interpretation Comments UA Blood (test code = Negative (09/04/14 12:20 UA Blood) PM) [facility] [id number] 17:20:00 Test Item Value Reference Range Interpretation Comments U Preg (test code = U Negative (09/04/14 12:20 Preg) PM) [facility] [id number] 17:20:00 Test Item Value Reference Range Interpretation Comments Lipase Lvl (test code = Lipase Lvl) 154 73-393 [facility] AND [id number] 17:20:00 Test Item Value Reference Range Interpretation Comments UA Bacteria (test code = UA Few /HPF Bacteria) [facility] AND [id number] 17:20:00 Test Item Value Reference Range Interpretation Comments UA WBC (test code = UA WBC) 0-2 /HPF [facility] AND [id number] 17:20:00 Test Item Value Reference Range Interpretation Comments UA RBC (test code = 0-2 /HPF See_Comment [Automa owen message] The UA RBC) system which ge nerated this result tra nsmitted reference range : <=2. The reference range was not used to interpr et this result as fredi l/abnormal. [facility] AND [id number] 17:20:00 Test Item Value Reference Range Interpretation Comments UA Sq Epi (test code = UA Sq Epi) Few /LPF [facility] AND [id number] 17:20:00 Test Item Value Reference Range Interpretation Comments UA Turbidity (test code = Clear (09/04/14 12:20 UA Turbidity) PM) [facility] AND [id number] 17:20:00 Test Item Value Reference Range Interpretation Comments UA Color (test code = UA Color) STRAW [facility] AND [id number] 17:20:00 Test Item Value Reference Range Interpretation Comments UA Ketones (test code = UA >=80 mg/dL Ketones) [facility] AND [id number] 17:20:00 Test Item Value Reference Range Interpretation Comments UA Spec Grav (test code = UA Spec 1.010 1 Grav) [facility] AND [id number] 17:20:00 Test Item Value Reference Range Interpretation Comments UA Glucose (test code = UA >=1000 mg/dL Glucose) [facility] AND [id number] 17:20:00 Test Item Value Reference Range Interpretation Comments UA pH (test code = UA pH) 5.5 1 5.0-8.0 [facility] AND [id number] 17:20:00 Test Item Value Reference Range Interpretation Comments UA Protein (test code Negative (09/04/14 12:20 = UA Protein) PM) [facility] [id number] 17:20:00 Test Item Value Reference Range Interpretation Comments UA Leuk Est (test Negative (09/04/14 12:20 code = UA Leuk Est) PM) [facility] [id number] 17:20:00 Test Item Value Reference Range Interpretation Comments UA Urobilinogen (test code = UA 0.2 0.1-1.0 Urobilinogen) [facility] [id number] 17:20:00 Test Item Value Reference Range Interpretation Comments UA Nitrite (test code Negative (09/04/14 12:20 = UA Nitrite) PM) [facility] [id number] 17:20:00 Test Item Value Reference Range Interpretation Comments UA Bili (test code = Negative *NA*(09/04/14 UA Bili) 12:20 PM) [facility] [id number] 17:20:00 Test Item Value Reference Range Interpretation Comments UA Blood (test code = Negative (09/04/14 12:20 UA Blood) PM) [facility] [id number] 17:20:00 Test Item Value Reference Range Interpretation Comments U Preg (test code = U Negative (09/04/14 12:20 Preg) PM) [facility] [id number] 17:20:00 Test Item Value Reference Range Interpretation Comments Lipase Lvl (test code = Lipase Lvl) 154 73-393 [facility] [id number] 17:20:00 Test Item Value Reference Range Interpretation Comments UA Bacteria (test code = UA Few /HPF Bacteria) [facility] [id number] 17:20:00 Test Item Value Reference Range Interpretation Comments UA WBC (test code = UA WBC) 0-2 /HPF [facility] [id number] 17:20:00 Test Item Value Reference Range Interpretation Comments UA RBC (test code = 0-2 /HPF See_Comment [Automa owen message] The UA RBC) system which ge nerated this result tra nsmitted reference range : <=2. The reference range was not used to interpr et this result as fredi l/abnormal. [facility] [id number] 17:20:00 Test Item Value Reference Range Interpretation Comments UA Sq Epi (test code = UA Sq Epi) Few /LPF [facility] AND [id number] 17:20:00 Test Item Value Reference Range Interpretation Comments UA Turbidity (test code = Clear (09/04/14 12:20 UA Turbidity) PM) [facility] AND [id number] 17:20:00 Test Item Value Reference Range Interpretation Comments UA Color (test code = UA Color) STRAW [facility] AND [id number] 17:20:00 Test Item Value Reference Range Interpretation Comments UA Ketones (test code = UA >=80 mg/dL Ketones) [facility] AND [id number] 17:20:00 Test Item Value Reference Range Interpretation Comments UA Spec Grav (test code = UA Spec 1.010 1 Grav) [facility] AND [id number] 17:20:00 Test Item Value Reference Range Interpretation Comments UA Glucose (test code = UA >=1000 mg/dL Glucose) [facility] AND [id number] 17:20:00 Test Item Value Reference Range Interpretation Comments UA pH (test code = UA pH) 5.5 1 5.0-8.0 [facility] AND [id number] 17:20:00 Test Item Value Reference Range Interpretation Comments UA Protein (test code Negative (09/04/14 12:20 = UA Protein) PM) [facility] AND [id number] 17:20:00 Test Item Value Reference Range Interpretation Comments UA Leuk Est (test Negative (09/04/14 12:20 code = UA Leuk Est) PM) [facility] AND [id number] 17:20:00 Test Item Value Reference Range Interpretation Comments UA Urobilinogen (test code = UA 0.2 0.1-1.0 Urobilinogen) [facility] AND [id number] 17:20:00 Test Item Value Reference Range Interpretation Comments UA Nitrite (test code Negative (09/04/14 12:20 = UA Nitrite) PM) [facility] AND [id number] 17:20:00 Test Item Value Reference Range Interpretation Comments UA Bili (test code = Negative *NA*(09/04/14 UA Bili) 12:20 PM) [facility] AND [id number] 17:20:00 Test Item Value Reference Range Interpretation Comments UA Blood (test code = Negative (09/04/14 12:20 UA Blood) PM) [facility] [id number] 17:20:00 Test Item Value Reference Range Interpretation Comments U Preg (test code = U Negative (09/04/14 12:20 Preg) PM) [facility] [id number] 16:28:00 Test Item Value Reference Range Interpretation Comments Troponin-I (test code no gt See_Comment [Auto mated message] The = Troponin-I) system which g enerated this result transmit owen reference range : <=0.40. The reference r jase was not used to interpr et this result as fredi l/abnormal. [facility] [id number] 16:28:00 Test Item Value Reference Range Interpretation Comments CK MB (test code = CK MB) 0.6 0.5-3.6 [facility] [id number] 16:28:00 Test Item Value Reference Range Interpretation Comments Total CK (test code = Total CK) 55 12-191 [facility] [id number] 16:28:00 Test Item Value Reference Range Interpretation Comments CK MB Index (test 1.1 See_Comment [Automate d message] The code = CK MB Index) system w the [facility] generated this result transmit owen reference range : <=2.5. The reference range was not used to interpr et this result as fredi l/abnormal. [facility] [id number] 16:28:00 Test Item Value Reference Range Interpretation Comments Albumin Lvl (test code = Albumin Lvl) 4.2 3.5-5.0 [facility] [id number] 16:28:00 Test Item Value Reference Range Interpretation Comments AST (test code = AST) 16 See_Comment [Auto mated message] The system which ge nerated this result transmit owen reference range : <=37. The reference range was not used to interpr et this result as fredi l/abnormal. [facility] [employer] [id number] 16:28:00 Test Item Value Reference Range Interpretation Comments ALT (test code = ALT) 24 See_Comment [Auto mated message] The system which ge nerated this result transmit owen reference range : <=65. The reference range was not used to interpr et this result as fredi l/abnormal. [facility]2015-04-20 16:28:00 Test Item Value Reference Range Interpretation Comments B/C Ratio (test code = B/C Ratio) 20 6-25 [facility]2015-04-20 16:28:00 Test Item Value Reference Range Interpretation Comments A/G Ratio (test code = A/G Ratio) 1.0 0.7-1.6 [facility]2015-04-20 16:28:00 Test Item Value Reference Range Interpretation Comments Total Protein (test code = Total 8.5 6.4-8.4 Protein) [facility]2015-04-20 16:28:00 Test Item Value Reference Range Interpretation Comments Globulin (test code = Globulin) 4.3 2.0-4.0 [facility]2015-04-20 16:28:00 Test Item Value Reference Range Interpretation Comments Bili Total (test code = Bili Total) 0.8 0.2-1.3 [facility]2015-04-20 16:28:00 Test Item Value Reference Range Interpretation Comments Alk Phos (test code = Alk Phos) 135 39-136 [place] [id number] 16:28:00 Test Item Value Reference Range Interpretation Comments S Preg (test code = S Negative *NA*(09/04/14 Preg) 11:28 AM) [id number] 16:28:00 Test Item Value Reference Range Interpretation Comments INR (test code = INR) 0.93 0.85-1.17 [facility] Hospit[id number] 16:28:00 Test Item Value Reference Range Interpretation Comments PTT (test code = PTT) 27.4 s 22.9-35.8 [facility] HospitalIyslkpiHFXVHKZJJF7500-13-68 16:28:00 Test Item Value Reference Range Interpretation Comments PT (test code = PT) 12.4 s 12.0-14.7 [facility] Hos[id number] 16:28:00 Test Item Value Reference Range Interpretation Comments Macrocyte (test code = 2+ *ABN*(09/04/14 Macrocyte) 11:28 AM) [facility] [employer] [id number] 16:28:00 Test Item Value Reference Range Interpretation Comments Troponin-I (test code no gt See_Comment [Auto mated message] The = Troponin-I) system which g enerated this result transmit owen reference range : <=0.40. The reference r jase was not used to interpr et this result as fredi l/abnormal. [facility] [employer] [id number] 16:28:00 Test Item Value Reference Range Interpretation Comments CK MB (test code = CK MB) 0.6 0.5-3.6 [facility] [employer] [id number] 16:28:00 Test Item Value Reference Range Interpretation Comments Total CK (test code = Total CK) 55 12-191 [facility] [employer] [id number] 16:28:00 Test Item Value Reference Range Interpretation Comments CK MB Index (test 1.1 See_Comment [Automate d message] The code = CK MB Index) system w the [facility] generated this result transmit owen reference range : <=2.5. The reference range was not used to interpr et this result as fredi l/abnormal. [employer] [id number] 16:28:00 Test Item Value Reference Range Interpretation Comments Albumin Lvl (test code = Albumin Lvl) 4.2 3.5-5.0 [facility] [employer] [id number] 16:28:00 Test Item Value Reference Range Interpretation Comments AST (test code = AST) 16 See_Comment [Auto mated message] The system which ge nerated this result transmit owen reference range : <=37. The reference range was not used to interpr et this result as fredi l/abnormal. [employer] [id number] 16:28:00 Test Item Value Reference Range Interpretation Comments ALT (test code = ALT) 24 See_Comment [Auto mated message] The system which ge nerated this result transmit owen reference range : <=65. The reference range was not used to interpr et this result as fredi l/abnormal. [employer] [id number] 16:28:00 Test Item Value Reference Range Interpretation Comments B/C Ratio (test code = B/C Ratio) 20 6-25 [employer] [id number] 16:28:00 Test Item Value Reference Range Interpretation Comments A/G Ratio (test code = A/G Ratio) 1.0 0.7-1.6 [facility] [id number] 16:28:00 Test Item Value Reference Range Interpretation Comments Total Protein (test code = Total 8.5 6.4-8.4 Protein) [facility] [id number] 16:28:00 Test Item Value Reference Range Interpretation Comments Globulin (test code = Globulin) 4.3 2.0-4.0 [facility] [id number] 16:28:00 Test Item Value Reference Range Interpretation Comments Bili Total (test code = Bili Total) 0.8 0.2-1.3 [facility] [id number] 16:28:00 Test Item Value Reference Range Interpretation Comments Alk Phos (test code = Alk Phos) 135 39-136 [facility]zzsrzRQVVNSGXCDSKL6581-47-28 16:28:00 Test Item Value Reference Range Interpretation Comments S Preg (test code = S Negative *NA*(09/04/14 Preg) 11:28 AM) [facility]waEQNVFNGMFN3781-75-27 16:28:00 Test Item Value Reference Range Interpretation Comments INR (test code = INR) 0.93 0.85-1.17 [id number] 16:28:00 Test Item Value Reference Range Interpretation Comments PTT (test code = PTT) 27.4 s 22.9-35.8 [facility] C[id number] 16:28:00 Test Item Value Reference Range Interpretation Comments PT (test code = PT) 12.4 s 12.0-14.7 [facility]UxrjcyyFMXOGWQLQD5855-04-20 16:28:00 Test Item Value Reference Range Interpretation Comments Macrocyte (test code = 2+ *ABN*(09/04/14 Macrocyte) 11:28 AM) [facility] [id number] 16:28:00 Test Item Value Reference Range Interpretation Comments Troponin-I (test code no gt See_Comment [Auto mated message] The = Troponin-I) system which g enerated this result transmit owen reference range : <=0.40. The reference r jase was not used to interpr et this result as fredi l/abnormal. [facility] CenterVidFall.comCAR21GRAMSAC [id number] 16:28:00 Test Item Value Reference Range Interpretation Comments CK MB (test code = CK MB) 0.6 0.5-3.6 [facility] HospitalannCAR21GRAMSAC [id number] 16:28:00 Test Item Value Reference Range Interpretation Comments Total CK (test code = Total CK) 55 12-191 [facility] CenterannRational RoboticsAC [id number] 16:28:00 Test Item Value Reference Range Interpretation Comments CK MB Index (test 1.1 See_Comment [Automate d message] The code = CK MB Index) system w [email or web address] generated this result transmit owen reference range : <=2.5. The reference range was not used to interpr et this result as fredi l/abnormal. [facility] [employer] [id number] 16:28:00 Test Item Value Reference Range Interpretation Comments Albumin Lvl (test code = Albumin Lvl) 4.2 3.5-5.0 [facility] [employer] [id number] 16:28:00 Test Item Value Reference Range Interpretation Comments AST (test code = AST) 16 See_Comment [Auto mated message] The system which ge nerated this result transmit owen reference range : <=37. The reference range was not used to interpr et this result as fredi l/abnormal. [facility] [employer] [id number] 16:28:00 Test Item Value Reference Range Interpretation Comments ALT (test code = ALT) 24 See_Comment [Auto mated message] The system which ge nerated this result transmit owen reference range : <=65. The reference range was not used to interpr et this result as fredi l/abnormal. [facility] [employer] [id number] 16:28:00 Test Item Value Reference Range Interpretation Comments B/C Ratio (test code = B/C Ratio) 20 6-25 [facility] [employer] [id number] 16:28:00 Test Item Value Reference Range Interpretation Comments A/G Ratio (test code = A/G Ratio) 1.0 0.7-1.6 [facility] [employer] [id number] 16:28:00 Test Item Value Reference Range Interpretation Comments Total Protein (test code = Total 8.5 6.4-8.4 Protein) [facility]2015-04-20 16:28:00 Test Item Value Reference Range Interpretation Comments Globulin (test code = Globulin) 4.3 2.0-4.0 [facility]2015-04-20 16:28:00 Test Item Value Reference Range Interpretation Comments Bili Total (test code = Bili Total) 0.8 0.2-1.3 [facility]2015-04-20 16:28:00 Test Item Value Reference Range Interpretation Comments Alk Phos (test code = Alk Phos) 135 39-136 [place] [id number] 16:28:00 Test Item Value Reference Range Interpretation Comments S Preg (test code = S Negative *NA*(09/04/14 Preg) 11:28 AM) [facility] Hos[id number] 16:28:00 Test Item Value Reference Range Interpretation Comments INR (test code = INR) 0.93 0.85-1.17 [facility] HospitalEbslgisEYYWTMGUQJ7660-55-72 16:28:00 Test Item Value Reference Range Interpretation Comments PTT (test code = PTT) 27.4 s 22.9-35.8 [facility] HospitalDfkzbjlRMGMETKEGS8099-76-36 16:28:00 Test Item Value Reference Range Interpretation Comments PT (test code = PT) 12.4 s 12.0-14.7 [facility] HospitalXvbhdtuOPPCSCATTQ9801-91-73 16:28:00 Test Item Value Reference Range Interpretation Comments Macrocyte (test code = 2+ *ABN*(09/04/14 Macrocyte) 11:28 AM) [facility]2014-09-10 09:22:00 Test Item Value Reference Range Interpretation Comments eGFR (test code = eGFR) 104 [facility]2014-09-10 09:22:00 Test Item Value Reference Range Interpretation Comments B/C Ratio (test code = B/C Ratio) 19 6-25 [facility]2014-09-10 09:22:00 Test Item Value Reference Range Interpretation Comments CO2 (test code = CO2) 26 24-32 [facility]2014-09-10 09:22:00 Test Item Value Reference Range Interpretation Comments AGAP (test code = AGAP) 11.9 10.0-20.0 [facility]2014-09-10 09:22:00 Test Item Value Reference Range Interpretation Comments Calcium Lvl (test code = Calcium Lvl) 8.6 8.5-10.5 [facility]2014-09-10 09:22:00 Test Item Value Reference Range Interpretation Comments Chloride Lvl (test code = Chloride Lvl) 102 95-109 [facility]2014-09-10 09:22:00 Test Item Value Reference Range Interpretation Comments Creatinine Lvl (test code = Creatinine 0.8 0.5-1.4 Lvl) [facility]2014-09-10 09:22:00 Test Item Value Reference Range Interpretation Comments Sodium Lvl (test code = Sodium Lvl) 135 135-145 [facility]2014-09-10 09:22:00 Test Item Value Reference Range Interpretation Comments Potassium Lvl (test code = Potassium 4.9 3.5-5.1 Lvl) [facility]2014-09-10 09:22:00 Test Item Value Reference Range Interpretation Comments BUN (test code = BUN) 15 7-22 [facility]2014-09-10 09:22:00 Test Item Value Reference Range Interpretation Comments Bili Total (test code = Bili Total) 0.3 0.2-1.3 [facility]2014-09-10 09:22:00 Test Item Value Reference Range Interpretation Comments AST (test code = AST) 288 See_Comment [Auto mated message] The system which ge nerated this result transmit owen reference range : <=37. The reference range was not used to interpr et this result as fredi l/abnormal. [facility]2014-09-10 09:22:00 Test Item Value Reference Range Interpretation Comments Alk Phos (test code = Alk Phos) 112 39-136 [facility]2014-09-10 09:22:00 Test Item Value Reference Range Interpretation Comments ALT (test code = ALT) 161 See_Comment [Auto mated message] The system which ge nerated this result transmit owen reference range : <=65. The reference range was not used to interpr et this result as fredi l/abnormal. [facility]2014-09-10 09:22:00 Test Item Value Reference Range Interpretation Comments A/G Ratio (test code = A/G Ratio) 0.8 0.7-1.6 [facility]2014-09-10 09:22:00 Test Item Value Reference Range Interpretation Comments Total Protein (test code = Total 6.5 6.4-8.4 Protein) [facility]2014-09-10 09:22:00 Test Item Value Reference Range Interpretation Comments Albumin Lvl (test code = Albumin Lvl) 2.9 3.5-5.0 [facility]2014-09-10 09:22:00 Test Item Value Reference Range Interpretation Comments Globulin (test code = Globulin) 3.6 2.0-4.0 [facility]2014-09-10 09:22:00 Test Item Value Reference Range Interpretation Comments Glucose Lvl (test code = Glucose Lvl) 407 70-99 [facility] Hos[id number] 09:22:00 Test Item Value Reference Range Interpretation Comments Platelet (test code = Platelet) 238 133-450 [facility] HospitalFouwgoxTZYODDTOCJ5543-23-37 09:22:00 Test Item Value Reference Range Interpretation Comments MCHC (test code = MCHC) 35.0 32.0-36.0 [facility] HospitalYzjwhvaSIOYGIAQEL5312-20-46 09:22:00 Test Item Value Reference Range Interpretation Comments RDW (test code = RDW) 12.6 11.5-14.5 [facility] HospitalOtzogioWUXBYXMJZG1441-01-75 09:22:00 Test Item Value Reference Range Interpretation Comments MPV (test code = MPV) 8.8 7.4-10.4 [facility] HospitalApzpfpqQCMYUEQLFT2951-45-61 09:22:00 Test Item Value Reference Range Interpretation Comments RBC (test code = RBC) 3.88 4.20-5.40 [facility] HospitalHeqpnxpFGPPJCHPRH3968-23-41 09:22:00 Test Item Value Reference Range Interpretation Comments Hgb (test code = Hgb) 13.0 12.0-16.0 [facility] HospitalStkefykAEKGLWAZAG0554-63-67 09:22:00 Test Item Value Reference Range Interpretation Comments MCH (test code = MCH) 33.6 pg 27.0-31.0 [facility] HospitalNgqvwloNHRGBYVISX9717-80-10 09:22:00 Test Item Value Reference Range Interpretation Comments Hct (test code = Hct) 37.3 36.0-48.0 [place] [id number] 09:22:00 Test Item Value Reference Range Interpretation Comments MCV (test code = MCV) 96.0 80.0-98.0 [facility] HospitalZjlcpnmXWKBVUAUYX5434-56-24 09:22:00 Test Item Value Reference Range Interpretation Comments WBC (test code = WBC) 6.4 3.7-10.4 [facility] HospitalUoppgvuDNSQFCWRGF8376-33-47 09:22:00 Test Item Value Reference Range Interpretation Comments Eosinophils # (test code 0.5 See_Comment [A utomated message] The = Eosinophils #) system whic h generated this result tra nsmitted reference range : <=0.5. The reference r jase was not used to int erpret this result as normal/abnormal . [facility] HospitalZmcuxdjUSBCBGPMCS0348-39-85 09:22:00 Test Item Value Reference Range Interpretation Comments Lymphocytes # (test code = Lymphocytes 2.1 1.0-5.5 #) [facility] HospitalLxhlakrZBHAPUUNCE1255-06-72 09:22:00 Test Item Value Reference Range Interpretation Comments Monocytes # (test code 0.3 See_Comment [Aut omated message] The = Monocytes #) system which generated this result tra nsmitted reference range : <=0.8. The reference r jase was not used to int erpret this result as normal/abnormal . [facility] HospitalIvdchotIEQRVYLRKA2944-59-98 09:22:00 Test Item Value Reference Range Interpretation Comments Segs-Bands # (test code = Segs-Bands #) 3.4 1.5-8.1 [facility] HospitalXxmkopkTRMDQJEQUQ8003-86-56 09:22:00 Test Item Value Reference Range Interpretation Comments Eosinophils (test code = 7.2 See_Comment [A utomated message] The Eosinophils) system which ge nerated this result tra nsmitted reference range : <=4.0. The reference r jase was not used to int erpret this result as normal/abnormal . [facility] HospitalNntrjjgSUDIBYRSMW3397-06-76 09:22:00 Test Item Value Reference Range Interpretation Comments Basophils (test code = 0.8 See_Comment [Aut omated message] The Basophils) system which ge nerated this result tra nsmitted reference range : <=1.0. The reference r jase was not used to int erpret this result as normal/abnormal . [facility] HospitalKrzblkaBXFDIVHAJF4235-35-27 09:22:00 Test Item Value Reference Range Interpretation Comments Lymphocytes (test code = Lymphocytes) 33.7 20.0-40.0 [facility] HospitalNceyiehYFPYMURITL0700-50-91 09:22:00 Test Item Value Reference Range Interpretation Comments Monocytes (test code = Monocytes) 5.2 2.0-12.0 [facility] HospitalDtvueslJNIBLASRYO3400-22-24 09:22:00 Test Item Value Reference Range Interpretation Comments Segs (test code = Segs) 53.1 45.0-75.0 [facility]2014-09-10 09:22:00 Test Item Value Reference Range Interpretation Comments eGFR (test code = eGFR) 104 [facility]2014-09-10 09:22:00 Test Item Value Reference Range Interpretation Comments B/C Ratio (test code = B/C Ratio) 19 6-25 [place] 413504-09-10 09:22:00 Test Item Value Reference Range Interpretation Comments CO2 (test code = CO2) 26 24-32 [facility]2014-09-10 09:22:00 Test Item Value Reference Range Interpretation Comments AGAP (test code = AGAP) 11.9 10.0-20.0 [facility]2014-09-10 09:22:00 Test Item Value Reference Range Interpretation Comments Calcium Lvl (test code = Calcium Lvl) 8.6 8.5-10.5 [facility]2014-09-10 09:22:00 Test Item Value Reference Range Interpretation Comments Chloride Lvl (test code = Chloride Lvl) 102 95-109 [facility]2014-09-10 09:22:00 Test Item Value Reference Range Interpretation Comments Creatinine Lvl (test code = Creatinine 0.8 0.5-1.4 Lvl) [facility]2014-09-10 09:22:00 Test Item Value Reference Range Interpretation Comments Sodium Lvl (test code = Sodium Lvl) 135 135-145 [facility]2014-09-10 09:22:00 Test Item Value Reference Range Interpretation Comments Potassium Lvl (test code = Potassium 4.9 3.5-5.1 Lvl) [facility]2014-09-10 09:22:00 Test Item Value Reference Range Interpretation Comments BUN (test code = BUN) 15 7-22 [facility]2014-09-10 09:22:00 Test Item Value Reference Range Interpretation Comments Bili Total (test code = Bili Total) 0.3 0.2-1.3 [facility]2014-09-10 09:22:00 Test Item Value Reference Range Interpretation Comments AST (test code = AST) 288 See_Comment [Auto mated message] The system which ge nerated this result transmit owen reference range : <=37. The reference range was not used to interpr et this result as fredi l/abnormal. [facility]2014-09-10 09:22:00 Test Item Value Reference Range Interpretation Comments Alk Phos (test code = Alk Phos) 112 39-136 [facility]2014-09-10 09:22:00 Test Item Value Reference Range Interpretation Comments ALT (test code = ALT) 161 See_Comment [Auto mated message] The system which ge nerated this result transmit owen reference range : <=65. The reference range was not used to interpr et this result as fredi l/abnormal. [facility]2014-09-10 09:22:00 Test Item Value Reference Range Interpretation Comments A/G Ratio (test code = A/G Ratio) 0.8 0.7-1.6 [facility]2014-09-10 09:22:00 Test Item Value Reference Range Interpretation Comments Total Protein (test code = Total 6.5 6.4-8.4 Protein) [facility]2014-09-10 09:22:00 Test Item Value Reference Range Interpretation Comments Albumin Lvl (test code = Albumin Lvl) 2.9 3.5-5.0 [facility]2014-09-10 09:22:00 Test Item Value Reference Range Interpretation Comments Globulin (test code = Globulin) 3.6 2.0-4.0 [facility]2014-09-10 09:22:00 Test Item Value Reference Range Interpretation Comments Glucose Lvl (test code = Glucose Lvl) 407 70-99 [facility] HospitalNsxmiwhNMUCKOKTNF6531-05-16 09:22:00 Test Item Value Reference Range Interpretation Comments Platelet (test code = Platelet) 238 133-450 [facility] HospitalHwpbsqfSYNFGOXTVQ6304-90-51 09:22:00 Test Item Value Reference Range Interpretation Comments MCHC (test code = MCHC) 35.0 32.0-36.0 [facility] HospitalMnwqedjVQXPAMYBTB1888-35-90 09:22:00 Test Item Value Reference Range Interpretation Comments RDW (test code = RDW) 12.6 11.5-14.5 [facility] HospitalFjrqykzPRXYRAUUZW4560-62-14 09:22:00 Test Item Value Reference Range Interpretation Comments MPV (test code = MPV) 8.8 7.4-10.4 [facility] HospitalKnsvoifKNXNSBGEKL4361-97-76 09:22:00 Test Item Value Reference Range Interpretation Comments RBC (test code = RBC) 3.88 4.20-5.40 [facility] HospitalKeisulaISFTPIPJPB0479-81-02 09:22:00 Test Item Value Reference Range Interpretation Comments Hgb (test code = Hgb) 13.0 12.0-16.0 [facility] HospitalSzwsysrBLKAIKFOGO7255-26-83 09:22:00 Test Item Value Reference Range Interpretation Comments MCH (test code = MCH) 33.6 pg 27.0-31.0 [facility] HospitalPsabezuGBLUVDXKGH4369-03-37 09:22:00 Test Item Value Reference Range Interpretation Comments Hct (test code = Hct) 37.3 36.0-48.0 [facility] HospitalZaopmdaTKBGGWWQRG8251-07-91 09:22:00 Test Item Value Reference Range Interpretation Comments MCV (test code = MCV) 96.0 80.0-98.0 [facility] HospitalQmzwoosMXAWLSWCPX5243-29-38 09:22:00 Test Item Value Reference Range Interpretation Comments WBC (test code = WBC) 6.4 3.7-10.4 [facility] HospitalBqaimnvXIMZJWPJTS0218-98-72 09:22:00 Test Item Value Reference Range Interpretation Comments Eosinophils # (test code 0.5 See_Comment [A utomated message] The = Eosinophils #) system whic h generated this result tra nsmitted reference range : <=0.5. The reference r jase was not used to int erpret this result as normal/abnormal . [facility]Vgz[facility]wheLDCFYSMOCC8574-[facility] 09:22:00 Test Item Value Reference Range Interpretation Comments Lymphocytes # (test code = Lymphocytes 2.1 1.0-5.5 #) [facility] HospitalIarzkgqVPDZYZEMZQ2400-98-62 09:22:00 Test Item Value Reference Range Interpretation Comments Monocytes # (test code 0.3 See_Comment [Aut omated message] The = Monocytes #) system which generated this result tra nsmitted reference range : <=0.8. The reference r jase was not used to int erpret this result as normal/abnormal . [facility] HospitalOocclvwAYJMTHWIIC3132-27-11 09:22:00 Test Item Value Reference Range Interpretation Comments Segs-Bands # (test code = Segs-Bands #) 3.4 1.5-8.1 [facility] HospitalWpllglkILKHNVPGIY5566-58-70 09:22:00 Test Item Value Reference Range Interpretation Comments Eosinophils (test code = 7.2 See_Comment [A utomated message] The Eosinophils) system which ge nerated this result tra nsmitted reference range : <=4.0. The reference r jase was not used to int erpret this result as normal/abnormal . [facility] HospitalLnibiegFTAGSWIYVP1443-70-53 09:22:00 Test Item Value Reference Range Interpretation Comments Basophils (test code = 0.8 See_Comment [Aut omated message] The Basophils) system which ge nerated this result tra nsmitted reference range : <=1.0. The reference r jase was not used to int erpret this result as normal/abnormal . [facility] HospitalYclltrsERAJBMLFEO7351-35-57 09:22:00 Test Item Value Reference Range Interpretation Comments Lymphocytes (test code = Lymphocytes) 33.7 20.0-40.0 [facility] HospitalSizzazgWBJYYFUKVC6994-24-05 09:22:00 Test Item Value Reference Range Interpretation Comments Monocytes (test code = Monocytes) 5.2 2.0-12.0 [facility] HospitalIsyvalwBNVUJQFOHP0081-57-23 09:22:00 Test Item Value Reference Range Interpretation Comments Segs (test code = Segs) 53.1 45.0-75.0 [facility]2014-09-10 09:22:00 Test Item Value Reference Range Interpretation Comments eGFR (test code = eGFR) 104 [facility]2014-09-10 09:22:00 Test Item Value Reference Range Interpretation Comments B/C Ratio (test code = B/C Ratio) 19 6-25 [facility]2014-09-10 09:22:00 Test Item Value Reference Range Interpretation Comments CO2 (test code = CO2) 26 24-32 [facility]2014-09-10 09:22:00 Test Item Value Reference Range Interpretation Comments AGAP (test code = AGAP) 11.9 10.0-20.0 [facility]2014-09-10 09:22:00 Test Item Value Reference Range Interpretation Comments Calcium Lvl (test code = Calcium Lvl) 8.6 8.5-10.5 [facility]2014-09-10 09:22:00 Test Item Value Reference Range Interpretation Comments Chloride Lvl (test code = Chloride Lvl) 102 95-109 [facility]2014-09-10 09:22:00 Test Item Value Reference Range Interpretation Comments Creatinine Lvl (test code = Creatinine 0.8 0.5-1.4 Lvl) [facility]2014-09-10 09:22:00 Test Item Value Reference Range Interpretation Comments Sodium Lvl (test code = Sodium Lvl) 135 135-145 [facility]2014-09-10 09:22:00 Test Item Value Reference Range Interpretation Comments Potassium Lvl (test code = Potassium 4.9 3.5-5.1 Lvl) [facility]2014-09-10 09:22:00 Test Item Value Reference Range Interpretation Comments BUN (test code = BUN) 15 7-22 [facility]2014-09-10 09:22:00 Test Item Value Reference Range Interpretation Comments Bili Total (test code = Bili Total) 0.3 0.2-1.3 [facility]2014-09-10 09:22:00 Test Item Value Reference Range Interpretation Comments AST (test code = AST) 288 See_Comment [Auto mated message] The system which ge nerated this result transmit owen reference range : <=37. The reference range was not used to interpr et this result as fredi l/abnormal. [facility]2014-09-10 09:22:00 Test Item Value Reference Range Interpretation Comments Alk Phos (test code = Alk Phos) 112 39-136 [facility]2014-09-10 09:22:00 Test Item Value Reference Range Interpretation Comments ALT (test code = ALT) 161 See_Comment [Auto mated message] The system which ge nerated this result transmit owen reference range : <=65. The reference range was not used to interpr et this result as fredi l/abnormal. [facility]2014-09-10 09:22:00 Test Item Value Reference Range Interpretation Comments A/G Ratio (test code = A/G Ratio) 0.8 0.7-1.6 [facility]2014-09-10 09:22:00 Test Item Value Reference Range Interpretation Comments Total Protein (test code = Total 6.5 6.4-8.4 Protein) [facility]2014-09-10 09:22:00 Test Item Value Reference Range Interpretation Comments Albumin Lvl (test code = Albumin Lvl) 2.9 3.5-5.0 [facility]2014-09-10 09:22:00 Test Item Value Reference Range Interpretation Comments Globulin (test code = Globulin) 3.6 2.0-4.0 [facility]2014-09-10 09:22:00 Test Item Value Reference Range Interpretation Comments Glucose Lvl (test code = Glucose Lvl) 407 70-99 [facility] HospitalQfbuxsaBLGEYVQMHV4413-27-17 09:22:00 Test Item Value Reference Range Interpretation Comments Platelet (test code = Platelet) 238 133-450 [facility] HospitalDloghwfLSMJIRLABO0616-77-50 09:22:00 Test Item Value Reference Range Interpretation Comments MCHC (test code = MCHC) 35.0 32.0-36.0 [facility] HospitalTcicqbsKNNHGUHADC4532-69-10 09:22:00 Test Item Value Reference Range Interpretation Comments RDW (test code = RDW) 12.6 11.5-14.5 [facility] HospitalWetmxwaTPDRXHSRGD5254-08-73 09:22:00 Test Item Value Reference Range Interpretation Comments MPV (test code = MPV) 8.8 7.4-10.4 [facility] HospitalGtovitwQMURMTZMPI7953-02-89 09:22:00 Test Item Value Reference Range Interpretation Comments RBC (test code = RBC) 3.88 4.20-5.40 [facility] HospitalXajssadCVGHURDXDP4750-31-99 09:22:00 Test Item Value Reference Range Interpretation Comments Hgb (test code = Hgb) 13.0 12.0-16.0 [facility] HospitalBhccngnPRXCHYQSII9735-55-82 09:22:00 Test Item Value Reference Range Interpretation Comments MCH (test code = MCH) 33.6 pg 27.0-31.0 [facility] HospitalJkqunvhRRFXWRXCTN8907-47-26 09:22:00 Test Item Value Reference Range Interpretation Comments Hct (test code = Hct) 37.3 36.0-48.0 [facility] HospitalEmgljddWOWLLUBBMC8803-77-69 09:22:00 Test Item Value Reference Range Interpretation Comments MCV (test code = MCV) 96.0 80.0-98.0 [facility] HospitalQicedgaANPTZJJEFO4322-32-33 09:22:00 Test Item Value Reference Range Interpretation Comments WBC (test code = WBC) 6.4 3.7-10.4 [facility] HospitalKvcmrudQZGCKXMYFT7855-55-14 09:22:00 Test Item Value Reference Range Interpretation Comments Eosinophils # (test code 0.5 See_Comment [A utomated message] The = Eosinophils #) system whic h generated this result tra nsmitted reference range : <=0.5. The reference r jase was not used to int erpret this result as normal/abnormal . [facility] HospitalGxzrcppDBPWPAPVTQ9695-81-70 09:22:00 Test Item Value Reference Range Interpretation Comments Lymphocytes # (test code = Lymphocytes 2.1 1.0-5.5 #) [facility] HospitalZlglsiqPOCOBFQLTF5127-92-55 09:22:00 Test Item Value Reference Range Interpretation Comments Monocytes # (test code 0.3 See_Comment [Aut omated message] The = Monocytes #) system which generated this result tra nsmitted reference range : <=0.8. The reference r jase was not used to int erpret this result as normal/abnormal . [facility] HospitalRicxsojFNUGDFOXOI1382-71-31 09:22:00 Test Item Value Reference Range Interpretation Comments Segs-Bands # (test code = Segs-Bands #) 3.4 1.5-8.1 [facility] HospitalIkfonnuTZWHHTCNCQ0880-10-52 09:22:00 Test Item Value Reference Range Interpretation Comments Eosinophils (test code = 7.2 See_Comment [A utomated message] The Eosinophils) system which ge nerated this result tra nsmitted reference range : <=4.0. The reference r jase was not used to int erpret this result as normal/abnormal . [facility] HospitalYkadnubNQOZYZYFUR9311-05-51 09:22:00 Test Item Value Reference Range Interpretation Comments Basophils (test code = 0.8 See_Comment [Aut omated message] The Basophils) system which ge nerated this result tra nsmitted reference range : <=1.0. The reference r jase was not used to int erpret this result as normal/abnormal . [facility] HospitalVnuvtolZKSSNQDGIB2633-11-55 09:22:00 Test Item Value Reference Range Interpretation Comments Lymphocytes (test code = Lymphocytes) 33.7 20.0-40.0 [facility] HospitalXqmysqjIRMDBSQAAM1658-19-78 09:22:00 Test Item Value Reference Range Interpretation Comments Monocytes (test code = Monocytes) 5.2 2.0-12.0 [place] [address]-09-10 09:22:00 Test Item Value Reference Range Interpretation Comments Segs (test code = Segs) 53.1 45.0-75.0 [facility]2014-09-09 17:00:00 Test Item Value Reference Range Interpretation Comments eGFR (test code = eGFR) 123 [facility]2014-09-09 17:00:00 Test Item Value Reference Range Interpretation Comments Creatinine Lvl (test code = Creatinine 0.7 0.5-1.4 Lvl) [facility]2014-09-09 17:00:00 Test Item Value Reference Range Interpretation Comments Glucose Lvl (test code = Glucose Lvl) 204 70-99 [facility]2014-09-09 17:00:00 Test Item Value Reference Range Interpretation Comments BUN (test code = BUN) 10 7-22 [facility]2014-09-09 17:00:00 Test Item Value Reference Range Interpretation Comments CO2 (test code = CO2) 25 24-32 [facility]2014-09-09 17:00:00 Test Item Value Reference Range Interpretation Comments AGAP (test code = AGAP) 9.1 10.0-20.0 [facility]2014-09-09 17:00:00 Test Item Value Reference Range Interpretation Comments Chloride Lvl (test code = Chloride Lvl) 108 95-109 [facility]2014-09-09 17:00:00 Test Item Value Reference Range Interpretation Comments Calcium Lvl (test code = Calcium Lvl) 8.4 8.5-10.5 [place] 413504-09-09 17:00:00 Test Item Value Reference Range Interpretation Comments Potassium Lvl (test code = Potassium 4.1 3.5-5.1 Lvl) [facility]2014-09-09 17:00:00 Test Item Value Reference Range Interpretation Comments Sodium Lvl (test code = Sodium Lvl) 138 135-145 [facility]2014-09-09 17:00:00 Test Item Value Reference Range Interpretation Comments eGFR (test code = eGFR) 123 [facility]2014-09-09 17:00:00 Test Item Value Reference Range Interpretation Comments Creatinine Lvl (test code = Creatinine 0.7 0.5-1.4 Lvl) [facility]2014-09-09 17:00:00 Test Item Value Reference Range Interpretation Comments Glucose Lvl (test code = Glucose Lvl) 204 70-99 [facility]2014-09-09 17:00:00 Test Item Value Reference Range Interpretation Comments BUN (test code = BUN) 10 7-22 [facility]2014-09-09 17:00:00 Test Item Value Reference Range Interpretation Comments CO2 (test code = CO2) 25 24-32 [facility]2014-09-09 17:00:00 Test Item Value Reference Range Interpretation Comments AGAP (test code = AGAP) 9.1 10.0-20.0 [facility]2014-09-09 17:00:00 Test Item Value Reference Range Interpretation Comments Chloride Lvl (test code = Chloride Lvl) 108 95-109 [facility]2014-09-09 17:00:00 Test Item Value Reference Range Interpretation Comments Calcium Lvl (test code = Calcium Lvl) 8.4 8.5-10.5 [facility]2014-09-09 17:00:00 Test Item Value Reference Range Interpretation Comments Potassium Lvl (test code = Potassium 4.1 3.5-5.1 Lvl) [facility]2014-09-09 17:00:00 Test Item Value Reference Range Interpretation Comments Sodium Lvl (test code = Sodium Lvl) 138 135-145 [facility]2014-09-09 17:00:00 Test Item Value Reference Range Interpretation Comments eGFR (test code = eGFR) 123 [place] 413504-09-09 17:00:00 Test Item Value Reference Range Interpretation Comments Creatinine Lvl (test code = Creatinine 0.7 0.5-1.4 Lvl) [facility]2014-09-09 17:00:00 Test Item Value Reference Range Interpretation Comments Glucose Lvl (test code = Glucose Lvl) 204 70-99 [facility]2014-09-09 17:00:00 Test Item Value Reference Range Interpretation Comments BUN (test code = BUN) 10 7-22 [facility]2014-09-09 17:00:00 Test Item Value Reference Range Interpretation Comments CO2 (test code = CO2) 25 24-32 [facility]2014-09-09 17:00:00 Test Item Value Reference Range Interpretation Comments AGAP (test code = AGAP) 9.1 10.0-20.0 [facility]2014-09-09 17:00:00 Test Item Value Reference Range Interpretation Comments Chloride Lvl (test code = Chloride Lvl) 108 95-109 [facility]2014-09-09 17:00:00 Test Item Value Reference Range Interpretation Comments Calcium Lvl (test code = Calcium Lvl) 8.4 8.5-10.5 [facility]2014-09-09 17:00:00 Test Item Value Reference Range Interpretation Comments Potassium Lvl (test code = Potassium 4.1 3.5-5.1 Lvl) [facility]2014-09-09 17:00:00 Test Item Value Reference Range Interpretation Comments Sodium Lvl (test code = Sodium Lvl) 138 135-145 [facility]2014-09-09 12:50:47 Test Item Value Reference Range Interpretation Comments Lipase Lvl (test code = Lipase Lvl) 251 73-393 [facility]2014-09-09 12:50:47 Test Item Value Reference Range Interpretation Comments Lipase Lvl (test code = Lipase Lvl) 251 73393 [facility]2014-09-09 12:50:47 Test Item Value Reference Range Interpretation Comments Lipase Lvl (test code = Lipase Lvl) 251 73393 [facility]2014-09-09 11:44:09 Test Item Value Reference Range Interpretation Comments Lactic Acid Lvl (test code = Lactic 3.8 0.5-2.2 Acid Lvl) [facility]2014-09-09 11:44:09 Test Item Value Reference Range Interpretation Comments Lactic Acid Lvl (test code = Lactic 3.8 0.5-2.2 Acid Lvl) [facility]2014-09-09 11:44:09 Test Item Value Reference Range Interpretation Comments Lactic Acid Lvl (test code = Lactic 3.8 0.5-2.2 Acid Lvl) [facility]2014-09-09 06:38:00 Test Item Value Reference Range Interpretation Comments Ketone Quantitative (test code = Ketone 0.41 Quantitative) [facility]2014-09-09 06:38:00 Test Item Value Reference Range Interpretation Comments eGFR (test code = eGFR) 58 [facility]2014-09-09 06:38:00 Test Item Value Reference Range Interpretation Comments Alk Phos (test code = Alk Phos) 120 39-136 [facility]2014-09-09 06:38:00 Test Item Value Reference Range Interpretation Comments AST (test code = AST) 47 See_Comment [Auto mated message] The system which ge nerated this result transmit owen reference range : <=37. The reference range was not used to interpr et this result as fredi l/abnormal. [facility]2014-09-09 06:38:00 Test Item Value Reference Range Interpretation Comments Bili Total (test code = Bili Total) 0.3 0.2-1.3 [facility]2014-09-09 06:38:00 Test Item Value Reference Range Interpretation Comments Glucose Lvl (test code = Glucose Lvl) 845 70-99 [facility]2014-09-09 06:38:00 Test Item Value Reference Range Interpretation Comments BUN (test code = BUN) 20 7-22 [facility]2014-09-09 06:38:00 Test Item Value Reference Range Interpretation Comments Creatinine Lvl (test code = Creatinine 1.3 0.5-1.4 Lvl) [facility]2014-09-09 06:38:00 Test Item Value Reference Range Interpretation Comments B/C Ratio (test code = B/C Ratio) 15 6-25 [facility]2014-09-09 06:38:00 Test Item Value Reference Range Interpretation Comments Calcium Lvl (test code = Calcium Lvl) 9.1 8.5-10.5 [facility]2014-09-09 06:38:00 Test Item Value Reference Range Interpretation Comments CO2 (test code = CO2) 22 24-32 [facility]2014-09-09 06:38:00 Test Item Value Reference Range Interpretation Comments AGAP (test code = AGAP) 17.0 10.0-20.0 [facility]2014-09-09 06:38:00 Test Item Value Reference Range Interpretation Comments Potassium Lvl (test code = Potassium 5.0 3.5-5.1 Lvl) [facility]2014-09-09 06:38:00 Test Item Value Reference Range Interpretation Comments Chloride Lvl (test code = Chloride Lvl) 92 95-109 [facility]2014-09-09 06:38:00 Test Item Value Reference Range Interpretation Comments Sodium Lvl (test code = Sodium Lvl) 126 135-145 [facility]2014-09-09 06:38:00 Test Item Value Reference Range Interpretation Comments ALT (test code = ALT) 60 See_Comment [Auto mated message] The system which ge nerated this result transmit owen reference range : <=65. The reference range was not used to interpr et this result as fredi l/abnormal. [facility]2014-09-09 06:38:00 Test Item Value Reference Range Interpretation Comments A/G Ratio (test code = A/G Ratio) 0.9 0.7-1.6 [facility]2014-09-09 06:38:00 Test Item Value Reference Range Interpretation Comments Globulin (test code = Globulin) 3.9 2.0-4.0 [facility]2014-09-09 06:38:00 Test Item Value Reference Range Interpretation Comments Total Protein (test code = Total 7.4 6.4-8.4 Protein) [facility]2014-09-09 06:38:00 Test Item Value Reference Range Interpretation Comments Albumin Lvl (test code = Albumin Lvl) 3.5 3.5-5.0 [place] 864484-09-09 06:38:00 Test Item Value Reference Range Interpretation Comments PTT (test code = PTT) 23.0 s 22.9-35.8 [facility] HospitalZrqdbkeTKUMFWNOEZ2222-82-91 06:38:00 Test Item Value Reference Range Interpretation Comments INR (test code = INR) 0.86 0.85-1.17 [facility] HospitalLknynohHAXIAWHJOV6365-41-93 06:38:00 Test Item Value Reference Range Interpretation Comments PT (test code = PT) 11.7 s 12.0-14.7 [facility] HospitalFaqmmieUYNPCHAMMZ2259-80-27 06:38:00 Test Item Value Reference Range Interpretation Comments RDW (test code = RDW) 13.1 11.5-14.5 [facility] HospitalJmtzlazYRTTPILQHB0561-27-06 06:38:00 Test Item Value Reference Range Interpretation Comments MPV (test code = MPV) 8.9 7.4-10.4 [facility] HospitalHwkrblkIHAYWKKQHW3620-12-68 06:38:00 Test Item Value Reference Range Interpretation Comments Platelet (test code = Platelet) 257 133-450 [facility] HospitalJqffsqjBLJKZYWNEC4498-38-55 06:38:00 Test Item Value Reference Range Interpretation Comments MCHC (test code = MCHC) 33.7 32.0-36.0 [facility] HospitalGthvcnyZJZZMSCQBR9753-22-12 06:38:00 Test Item Value Reference Range Interpretation Comments MCH (test code = MCH) 33.4 pg 27.0-31.0 [facility] HospitalQqwmcazNDSBSRIRRD6577-31-97 06:38:00 Test Item Value Reference Range Interpretation Comments MCV (test code = MCV) 99.2 80.0-98.0 [facility] HospitalZpxpvlkQDFVQQQFAH8775-66-86 06:38:00 Test Item Value Reference Range Interpretation Comments Hct (test code = Hct) 40.3 36.0-48.0 [facility] HospitalKhvfisvSPXLUUEEWE4279-78-72 06:38:00 Test Item Value Reference Range Interpretation Comments Hgb (test code = Hgb) 13.6 12.0-16.0 [facility] HospitalGrncxydKIQBAPPIBB7985-64-39 06:38:00 Test Item Value Reference Range Interpretation Comments RBC (test code = RBC) 4.06 4.20-5.40 [facility] HospitalIjaoexqZHTDHUWAQT1650-60-21 06:38:00 Test Item Value Reference Range Interpretation Comments WBC (test code = WBC) 6.8 3.7-10.4 [facility] HospitalYuydwvpJFAWBJLISX1446-00-96 06:38:00 Test Item Value Reference Range Interpretation Comments Monocytes # (test code 0.4 See_Comment [Aut omated message] The = Monocytes #) system which generated this result tra nsmitted reference range : <=0.8. The reference r jase was not used to int erpret this result as normal/abnormal . [facility] HospitalMkgaslaUFBXQUOJCD2319-46-56 06:38:00 Test Item Value Reference Range Interpretation Comments Macrocyte (test code = 1+ *ABN*(01/24/14 1:38 Macrocyte) AM) [facility] HospitalAjelyzdXOYWDDHKPD1133-32-78 06:38:00 Test Item Value Reference Range Interpretation Comments Eosinophils # (test code 0.6 See_Comment [A utomated message] The = Eosinophils #) system whic h generated this result tra nsmitted reference range : <=0.5. The reference r jase was not used to int erpret this result as normal/abnormal . [facility] HospitalPdapittHXBUUDVBJQ4701-67-81 06:38:00 Test Item Value Reference Range Interpretation Comments Basophils (test code = 0.4 See_Comment [Aut omated message] The Basophils) system which ge nerated this result tra nsmitted reference range : <=1.0. The reference r jase was not used to int erpret this result as normal/abnormal . [facility] HospitalZsbykrrYWEUFYGRIL2056-46-98 06:38:00 Test Item Value Reference Range Interpretation Comments Segs-Bands # (test code = Segs-Bands #) 4.0 1.5-8.1 [facility] HospitalOehohvfNXMOGUUYLI9657-25-35 06:38:00 Test Item Value Reference Range Interpretation Comments Lymphocytes # (test code = Lymphocytes 1.8 1.0-5.5 #) [facility] HospitalLtovztaUMKBBXGWUX6254-43-55 06:38:00 Test Item Value Reference Range Interpretation Comments Eosinophils (test code = 9.2 See_Comment [A utomated message] The Eosinophils) system which ge nerated this result tra nsmitted reference range : <=4.0. The reference r jase was not used to int erpret this result as normal/abnormal . [facility] HospitalBridopkLNOCWDHRKL5882-69-96 06:38:00 Test Item Value Reference Range Interpretation Comments Monocytes (test code = Monocytes) 5.6 2.0-12.0 [facility] HospitalHlcdhtiOVQDCNVVEI3533-28-90 06:38:00 Test Item Value Reference Range Interpretation Comments Lymphocytes (test code = Lymphocytes) 26.6 20.0-40.0 [facility]yekniWCTNVFBZKN4901-43-48 06:38:00 Test Item Value Reference Range Interpretation Comments Segs (test code = Segs) 58.2 45.0-75.0 [facility]2014-09-09 06:38:00 Test Item Value Reference Range Interpretation Comments Ketone Quantitative (test code = Ketone 0.41 Quantitative) [facility]2014-09-09 06:38:00 Test Item Value Reference Range Interpretation Comments eGFR (test code = eGFR) 58 [facility]2014-09-09 06:38:00 Test Item Value Reference Range Interpretation Comments Alk Phos (test code = Alk Phos) 120 39-136 [facility]2014-09-09 06:38:00 Test Item Value Reference Range Interpretation Comments AST (test code = AST) 47 See_Comment [Auto mated message] The system which ge nerated this result transmit owen reference range : <=37. The reference range was not used to interpr et this result as fredi l/abnormal. [facility]2014-09-09 06:38:00 Test Item Value Reference Range Interpretation Comments Bili Total (test code = Bili Total) 0.3 0.2-1.3 [facility]2014-09-09 06:38:00 Test Item Value Reference Range Interpretation Comments Glucose Lvl (test code = Glucose Lvl) 845 70-99 [facility]2014-09-09 06:38:00 Test Item Value Reference Range Interpretation Comments BUN (test code = BUN) 20 7-22 [facility]2014-09-09 06:38:00 Test Item Value Reference Range Interpretation Comments Creatinine Lvl (test code = Creatinine 1.3 0.5-1.4 Lvl) [facility]2014-09-09 06:38:00 Test Item Value Reference Range Interpretation Comments B/C Ratio (test code = B/C Ratio) 15 6-25 [facility]2014-09-09 06:38:00 Test Item Value Reference Range Interpretation Comments Calcium Lvl (test code = Calcium Lvl) 9.1 8.5-10.5 [facility]2014-09-09 06:38:00 Test Item Value Reference Range Interpretation Comments CO2 (test code = CO2) 22 24-32 [facility]2014-09-09 06:38:00 Test Item Value Reference Range Interpretation Comments AGAP (test code = AGAP) 17.0 10.0-20.0 [facility]2014-09-09 06:38:00 Test Item Value Reference Range Interpretation Comments Potassium Lvl (test code = Potassium 5.0 3.5-5.1 Lvl) [facility]2014-09-09 06:38:00 Test Item Value Reference Range Interpretation Comments Chloride Lvl (test code = Chloride Lvl) 92 95-109 [facility]2014-09-09 06:38:00 Test Item Value Reference Range Interpretation Comments Sodium Lvl (test code = Sodium Lvl) 126 135-145 [facility]2014-09-09 06:38:00 Test Item Value Reference Range Interpretation Comments ALT (test code = ALT) 60 See_Comment [Auto mated message] The system which ge nerated this result transmit owen reference range : <=65. The reference range was not used to interpr et this result as fredi l/abnormal. [facility]2014-09-09 06:38:00 Test Item Value Reference Range Interpretation Comments A/G Ratio (test code = A/G Ratio) 0.9 0.7-1.6 [facility]2014-09-09 06:38:00 Test Item Value Reference Range Interpretation Comments Globulin (test code = Globulin) 3.9 2.0-4.0 [facility]2014-09-09 06:38:00 Test Item Value Reference Range Interpretation Comments Total Protein (test code = Total 7.4 6.4-8.4 Protein) [facility]2014-09-09 06:38:00 Test Item Value Reference Range Interpretation Comments Albumin Lvl (test code = Albumin Lvl) 3.5 3.5-5.0 [facility]NqswatvZIMDEXFLPZ9097-97-64 06:38:00 Test Item Value Reference Range Interpretation Comments PTT (test code = PTT) 23.0 s 22.9-35.8 [place] [address]-09-09 06:38:00 Test Item Value Reference Range Interpretation Comments INR (test code = INR) 0.86 0.85-1.17 [facility] HospitalFbscthbAFFLWOPSBB9587-46-29 06:38:00 Test Item Value Reference Range Interpretation Comments PT (test code = PT) 11.7 s 12.0-14.7 [facility] HospitalXxluzqpGDCIWPNMTN4593-32-05 06:38:00 Test Item Value Reference Range Interpretation Comments RDW (test code = RDW) 13.1 11.5-14.5 [facility] HospitalJfxmxuxLGWOVWOPEI7572-20-87 06:38:00 Test Item Value Reference Range Interpretation Comments MPV (test code = MPV) 8.9 7.4-10.4 [facility] HospitalSozehzwXJGRXOQLXO6167-92-07 06:38:00 Test Item Value Reference Range Interpretation Comments Platelet (test code = Platelet) 257 133-450 [facility] HospitalJgwrafbZQGTNYQJGX4136-81-47 06:38:00 Test Item Value Reference Range Interpretation Comments MCHC (test code = MCHC) 33.7 32.0-36.0 [facility] HospitalDoiemnhORCNGIYMHH4910-54-14 06:38:00 Test Item Value Reference Range Interpretation Comments MCH (test code = MCH) 33.4 pg 27.0-31.0 [facility] HospitalUulhdfcQGPLITQZDH3234-61-06 06:38:00 Test Item Value Reference Range Interpretation Comments MCV (test code = MCV) 99.2 80.0-98.0 [facility] HospitalUohnlqmOKIXGZNWJJ3616-36-11 06:38:00 Test Item Value Reference Range Interpretation Comments Hct (test code = Hct) 40.3 36.0-48.0 [facility] HospitalXraviwnKYWPRAOHZH0302-45-77 06:38:00 Test Item Value Reference Range Interpretation Comments Hgb (test code = Hgb) 13.6 12.0-16.0 [facility] HospitalQkhbxiwEYQFACDRMC9644-16-60 06:38:00 Test Item Value Reference Range Interpretation Comments RBC (test code = RBC) 4.06 4.20-5.40 [facility] HospitalZfrpjcrFDMQJCUXHN6974-54-80 06:38:00 Test Item Value Reference Range Interpretation Comments WBC (test code = WBC) 6.8 3.7-10.4 [facility] HospitalKrnzmkgHJDTJCIJKT5813-74-46 06:38:00 Test Item Value Reference Range Interpretation Comments Monocytes # (test code 0.4 See_Comment [Aut omated message] The = Monocytes #) system which generated this result tra nsmitted reference range : <=0.8. The reference r jase was not used to int erpret this result as normal/abnormal . [facility] HospitalLifojnoBIYFFCMWYG4470-97-06 06:38:00 Test Item Value Reference Range Interpretation Comments Macrocyte (test code = 1+ *ABN*(01/24/14 1:38 Macrocyte) AM) [facility] HospitalHulqwsfKWTCABJJSX2297-53-83 06:38:00 Test Item Value Reference Range Interpretation Comments Eosinophils # (test code 0.6 See_Comment [A utomated message] The = Eosinophils #) system whic h generated this result tra nsmitted reference range : <=0.5. The reference r jase was not used to int erpret this result as normal/abnormal . [facility] HospitalLzvffhcROZWCCLLTG1585-35-16 06:38:00 Test Item Value Reference Range Interpretation Comments Basophils (test code = 0.4 See_Comment [Aut omated message] The Basophils) system which ge nerated this result tra nsmitted reference range : <=1.0. The reference r jase was not used to int erpret this result as normal/abnormal . [facility] HospitalUvwzipbUAASVXCVWK1274-67-77 06:38:00 Test Item Value Reference Range Interpretation Comments Segs-Bands # (test code = Segs-Bands #) 4.0 1.5-8.1 [facility] HospitalQrsekcuPHZJIEPYEK6999-85-69 06:38:00 Test Item Value Reference Range Interpretation Comments Lymphocytes # (test code = Lymphocytes 1.8 1.0-5.5 #) [facility] HospitalSdljyhgSMBTPYQTRT3084-82-66 06:38:00 Test Item Value Reference Range Interpretation Comments Eosinophils (test code = 9.2 See_Comment [A utomated message] The Eosinophils) system which ge nerated this result tra nsmitted reference range : <=4.0. The reference r jase was not used to int erpret this result as normal/abnormal . [facility] HospitalRhgbdmoXZGMHCLVFL2495-69-62 06:38:00 Test Item Value Reference Range Interpretation Comments Monocytes (test code = Monocytes) 5.6 2.0-12.0 [facility] HospitalQseynhmCPZFVXHKNV6772-16-05 06:38:00 Test Item Value Reference Range Interpretation Comments Lymphocytes (test code = Lymphocytes) 26.6 20.0-40.0 [facility] HospitalAzhhzktWSKQGYRFML4337-52-46 06:38:00 Test Item Value Reference Range Interpretation Comments Segs (test code = Segs) 58.2 45.0-75.0 [facility]2014-09-09 06:38:00 Test Item Value Reference Range Interpretation Comments Ketone Quantitative (test code = Ketone 0.41 Quantitative) [facility]2014-09-09 06:38:00 Test Item Value Reference Range Interpretation Comments eGFR (test code = eGFR) 58 [facility]2014-09-09 06:38:00 Test Item Value Reference Range Interpretation Comments Alk Phos (test code = Alk Phos) 120 39-136 [facility]2014-09-09 06:38:00 Test Item Value Reference Range Interpretation Comments AST (test code = AST) 47 See_Comment [Auto mated message] The system which ge nerated this result transmit owen reference range : <=37. The reference range was not used to interpr et this result as fredi l/abnormal. [facility]2014-09-09 06:38:00 Test Item Value Reference Range Interpretation Comments Bili Total (test code = Bili Total) 0.3 0.2-1.3 [facility]2014-09-09 06:38:00 Test Item Value Reference Range Interpretation Comments Glucose Lvl (test code = Glucose Lvl) 845 70-99 [facility]2014-09-09 06:38:00 Test Item Value Reference Range Interpretation Comments BUN (test code = BUN) 20 7-22 [facility]2014-09-09 06:38:00 Test Item Value Reference Range Interpretation Comments Creatinine Lvl (test code = Creatinine 1.3 0.5-1.4 Lvl) [place] 413504-09-09 06:38:00 Test Item Value Reference Range Interpretation Comments B/C Ratio (test code = B/C Ratio) 15 6-25 [facility]2014-09-09 06:38:00 Test Item Value Reference Range Interpretation Comments Calcium Lvl (test code = Calcium Lvl) 9.1 8.5-10.5 [facility]2014-09-09 06:38:00 Test Item Value Reference Range Interpretation Comments CO2 (test code = CO2) 22 24-32 [place] [address]-09-09 06:38:00 Test Item Value Reference Range Interpretation Comments AGAP (test code = AGAP) 17.0 10.0-20.0 [facility]2014-09-09 06:38:00 Test Item Value Reference Range Interpretation Comments Potassium Lvl (test code = Potassium 5.0 3.5-5.1 Lvl) [facility]2014-09-09 06:38:00 Test Item Value Reference Range Interpretation Comments Chloride Lvl (test code = Chloride Lvl) 92 95-109 [facility]2014-09-09 06:38:00 Test Item Value Reference Range Interpretation Comments Sodium Lvl (test code = Sodium Lvl) 126 135-145 [facility]2014-09-09 06:38:00 Test Item Value Reference Range Interpretation Comments ALT (test code = ALT) 60 See_Comment [Auto mated message] The system which ge nerated this result transmit owen reference range : <=65. The reference range was not used to interpr et this result as fredi l/abnormal. [facility]2014-09-09 06:38:00 Test Item Value Reference Range Interpretation Comments A/G Ratio (test code = A/G Ratio) 0.9 0.7-1.6 [facility]2014-09-09 06:38:00 Test Item Value Reference Range Interpretation Comments Globulin (test code = Globulin) 3.9 2.0-4.0 [facility]2014-09-09 06:38:00 Test Item Value Reference Range Interpretation Comments Total Protein (test code = Total 7.4 6.4-8.4 Protein) [facility]2014-09-09 06:38:00 Test Item Value Reference Range Interpretation Comments Albumin Lvl (test code = Albumin Lvl) 3.5 3.5-5.0 [place] 864484-09-09 06:38:00 Test Item Value Reference Range Interpretation Comments PTT (test code = PTT) 23.0 s 22.9-35.8 [place] 864484-09-09 06:38:00 Test Item Value Reference Range Interpretation Comments INR (test code = INR) 0.86 0.85-1.17 [place] 864484-09-09 06:38:00 Test Item Value Reference Range Interpretation Comments PT (test code = PT) 11.7 s 12.0-14.7 [facility] HospitalYterqiaFPJHJWWJVU2343-19-84 06:38:00 Test Item Value Reference Range Interpretation Comments RDW (test code = RDW) 13.1 11.5-14.5 [facility] HospitalUpghzksPTZUBBGTLS6083-12-45 06:38:00 Test Item Value Reference Range Interpretation Comments MPV (test code = MPV) 8.9 7.4-10.4 [facility] HospitalVqvuzwmMPCMPNFWTC3135-15-77 06:38:00 Test Item Value Reference Range Interpretation Comments Platelet (test code = Platelet) 257 133-450 [facility] HospitalCyowxsrQSHMIGVEXJ7847-15-55 06:38:00 Test Item Value Reference Range Interpretation Comments MCHC (test code = MCHC) 33.7 32.0-36.0 [facility] HospitalEvlpjqmODUWPPILSZ5692-83-11 06:38:00 Test Item Value Reference Range Interpretation Comments MCH (test code = MCH) 33.4 pg 27.0-31.0 [facility] HospitalIbijthrMOWOISTGMF6479-00-35 06:38:00 Test Item Value Reference Range Interpretation Comments MCV (test code = MCV) 99.2 80.0-98.0 [facility] HospitalItnxsoqMOCXLELRXA1131-20-16 06:38:00 Test Item Value Reference Range Interpretation Comments Hct (test code = Hct) 40.3 36.0-48.0 [facility] HospitalQewxfulBMCWHYKXAM6687-33-32 06:38:00 Test Item Value Reference Range Interpretation Comments Hgb (test code = Hgb) 13.6 12.0-16.0 [facility] HospitalFixwnopBFXFECHGDN0101-04-47 06:38:00 Test Item Value Reference Range Interpretation Comments RBC (test code = RBC) 4.06 4.20-5.40 [facility] HospitalNekabfzKJBXIYPLVV1096-67-83 06:38:00 Test Item Value Reference Range Interpretation Comments WBC (test code = WBC) 6.8 3.7-10.4 [facility] HospitalGpzvnwcJLWHMMCMLQ5397-34-93 06:38:00 Test Item Value Reference Range Interpretation Comments Monocytes # (test code 0.4 See_Comment [Aut omated message] The = Monocytes #) system which generated this result tra nsmitted reference range : <=0.8. The reference r jase was not used to int erpret this result as normal/abnormal . [facility] HospitalSjafhvrXRSENDANKM2397-67-69 06:38:00 Test Item Value Reference Range Interpretation Comments Macrocyte (test code = 1+ *ABN*(01/24/14 1:38 Macrocyte) AM) [facility] HospitalQmztuhrPNCKULDNCR2916-71-48 06:38:00 Test Item Value Reference Range Interpretation Comments Eosinophils # (test code 0.6 See_Comment [A utomated message] The = Eosinophils #) system wh h generated this result tra nsmitted reference range : <=0.5. The reference r jase was not used to int erpret this result as normal/abnormal . [facility] HospitalJnbjomfFDUEHAAWAR5989-52-83 06:38:00 Test Item Value Reference Range Interpretation Comments Basophils (test code = 0.4 See_Comment [Aut omated message] The Basophils) system which ge nerated this result tra nsmitted reference range : <=1.0. The reference r jase was not used to int erpret this result as normal/abnormal . [facility] HospitalRwdbiwgGBTTSIMUFS7476-97-07 06:38:00 Test Item Value Reference Range Interpretation Comments Segs-Bands # (test code = Segs-Bands #) 4.0 1.5-8.1 [facility] HospitalGsiteqoBAVAZKSCFO1325-24-79 06:38:00 Test Item Value Reference Range Interpretation Comments Lymphocytes # (test code = Lymphocytes 1.8 1.0-5.5 #) [facility] HospitalXfpoodhGKGBNDKYJH6042-97-05 06:38:00 Test Item Value Reference Range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 [employer]/computer document * History of Present Illness Reason for consult: HEMATOCHEZIA, ABDOMINAL DISTENTION, Free Text HPI Notes Free Text HPI Notes: The patient is a 28 y/o female who presented wit h abdominal pain. She states that she was wakeboarding and hit her ab domen on the board. She started having abdominal distention along w ith rectal bleeding about 4 days ago. She describes maroon colored stool followed by bright red bloo d mixed with the stool which lasted until 2 days ago, non e since then. She has not had any bowel movement in 2 days. Of note, she reports alternating loose stools and constipation 2 months prior to this admission. She is eating a nd tolerating her diet. Hemoglobin has been normal throughout this admission. History - Adult longitudinal Past medical history: Reports: Diabetes mellitus. Additional medical history: DM TYPE 1. DKA X 3 Past surgical history: Reports: Appendectomy, . Additional family history: Crohn disease - sister and mother Alcohol use: Denies EtOH use Drug use: Denies recreational drugs Smoking status for patients 13 years old or olde r: Never Smoker Other social history: Local resident, Good socia l support Allergies: Coded Allergies: clindamycin (Severe, VOMIT, HIVES, SOB 09/15/18) ondansetron (From ZOFRAN ( HYDROCHLORIDE)) (Ak ld, UNKNOWN 09/15/18) tramadol (Mild, HIVE 09/15/18) Penicillins (SWELLING 09/15/18) Ambulatory status: Independent Review of Systems Constitutional: Denies: chills, fever. Skin: Denies: bruising, itching, rash. Allergy/Immun: Denies: allergic reaction, hives, rhinorrhea. Eyes: Denies: redness, diplopia, eye pain, swelling. ENT: Denies: ear drainage, earache, nasal congestion. Respiratory: Denies: ZEPEDA (dyspnea on exertion), non productiv e cough, productive cough ( sputum), SOB. Cardiovascular: Denies: chest pain, edema, orthopnea. GI: Reports: other (as per HPI). Musculoskeletal: Denies: joint pain, joint swelling. Heme: Reports: bleeding. Objective Physical Exam VS/I O: Last Documented: Result Date Time Pulse Ox 99 09/16 1154 B/P 96/59 09/16 1154 B/P Mean 71.6 09/16 1154 Temp 36.8 09/16 1154 Pulse 76 09/16 1154 Resp 20 09/16 1154 O2 Delivery Room air 09/16 0312 24 hour I O ending at 0700: 09/16 0700 05 1900 Intake Total 1250.00 1295.00 Output Total Balance 1250.00 1295.00 Intake, IV 900.00 525.00 Intake, Oral 350 770 Number Voids 4 Medications: Active Meds + DC'd Last 24 Hrs Pantoprazole 40 MG DAILY IV Sodium Chloride 10 ML Insulin Glargine 35 UNITS BID SUBQ (CKD) Insulin Glargine 25 UNITS BID SUBQ (DC) Insulin Glargine 30 UNITS BID SUBQ (DC) Promethazine HCl 12.5 MG Q6H PRN PRN IV Sodium Chloride 10 ML Sodium Chloride 1,000 ML .Q8H IV Dextrose/Water 25 ML ASDIR PRN IV Insulin Human Lispro MODERATE DOSE SCALE ASDIR SUBQ Diphenhydramine HCl 25 MG ONCE PRN PO Morphine Sulfate 4 MG Q4H PRN PRN IV Sodium Chloride 5 ML Q12HR IV General appearance: alert, awake, oriented, no a cute distress HEENT: anicteric, clear cornea, moist mu cosal membranes, normocephalic, PERRLA Cardiovascular: regular rate rhythm Respiratory: aerating well, no distress Abdomen: distended, non-tender, normal bowel kenna nds, soft, no guarding, no rebound Extremities: moves all, normal temperature, no e eduardo 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, oriented X 3, normal speech Skin: dry, normal temperature, no rash Results Findings/Data: Laboratory Tests 09/16/18315: [Embedded Image Not Available] Laboratory Tests 09/16 09/16 09/15 09/15 1109 0316 2049 1557 Chemistry Sodium (137 - 145 mmol/L) 140 Potassium (3.4 - 5.0 mmol/L) 4.1 Chloride (98 - 107 mmol/L) 110 H Carbon Dioxide (22 - 30 mmol/L) 26 BUN (7 - 17 mg/dL) 13 Creatinine (0.5 - 1.0 mg/dL) 0.5 Glomerular Filtr Rate (>60) 156 Glucose (74 - 106 mg/dL) 141 H POC Glucose (74 - 106 MG/DL) 94 173 H 83 Calcium (8.4 - 10.2 mg/dL) 8.8 Phosphorus (2.5 - 4.5 mg/dL) 4.1 Magnesium (1.6 - 2.3 mg/dL) 1.9 Total Bilirubin (0.2 - 1.3 mg/dL) 0.2 Conjugated Bilirubin (0 - 0.3 mg/dL) 0 Unconjugated Bilirubin (0 - 1.1 mg/dL) 0 AST (15 - 46 U/L) 26 ALT (13 - 69 U/L) 16 Total Alk Phosphatase (38 - 126 U/L) 53 Total Protein (6.3 - 8.2 g/dL) 6.1 L Albumin (3.5 - 5.0 g/dL) 3.4 L Laboratory Tests 09/17 315 Hematology WBC (5.0 - 12.0 x10 3/uL) 6.2 RBC (4.20 - 5.40 x10 6/uL) 3.72 L Hgb (12.0 - 16.0 g/dL) 12.1 Hct (36.0 - 46.0 %) 36.5 MCV (81 - 99 fL) 98 MCH (27 - 31 pg) 32.5 H MCHC (33 - 37 g/dL) 33.2 RDW (11.5 - 15.5 %) 11.9 Plt Count (130 - 400 x10 3/uL) 245 MPV (9.4 - 16.4 fL) 10.6 Neut % (Auto) (43 - 65 %) 26.4 L Lymph % (Auto) (20.5 - 45.5 %) 56.9 H [place] % (Auto) (5.5 - 11.7 %) 6.1 Eos % (Auto) (0.9 - 2.9 %) 9.3 H Baso % (Auto) (0.2 - 1.0 %) 1.1 H Neut # (Auto) (2.2 - 4.8 x10 3/uL) 1.64 L Lymph # (Auto) (1.3 - 2.9 x10 3/uL) 3.54 H [place] # (Auto) (0.3 - 0.8 x10 3/uL) 0.38 Eos # (Auto) (0.0 - 0.2 x10 3/uL) 0.58 H Baso # (Auto) (0.0 - 0.1 x10 3/uL) 0.07 Immature Gran % (0.0 - 2.0 %) 0.2 Nucleated RBC % (0 - 1.0 %) 0.0 Diagnosis, Assessment Plan Free Text DxA P Notes Free Text DxA P Notes: 28 y/o female who presented with abdominal pain, distention, and hematochezia 1. Hematochezia, hemoglobin stable 2. Abdominal distention 3. Family history of Crohn disease -KUB -CRP, Fecal leukocytes -Encourage to ambulate at 2229 RPT #:[id number] END OF REPORT 2018-09-16 [facility] 11:14:00-00:00 [facility] ([facility]) GE Consultation Note REPORT#:[id number] REPORT STATUS: Signed DATE:09/16/18 TIME: 1114 PATIENT: MALLORY GOMEZ UNIT #: [id number] ROOM/BED: [address] : 90 AGE: 28 SEX: F ATTEND: Jose Guerra MD ADM AUTHOR: DelosReyes,Pat N P * ALL edits or amendments must be made on the el [employer]/computer document * Primitivo Cordova 09/16/18 1114: History of Present Illness Reason for consult: HEMATOCHEZIA, ABDOMINAL DISTENTION, Free Text HPI Notes Free Text HPI Notes: The patient is a 28 y/o female who presented wit h abdominal pain. She states that she was wakeboarding and hit her ab domen on the board. She started having abdominal distention along w ith rectal bleeding about 4 days ago. She describes maroon colored stool followed by bright red bloo d mixed with the stool which lasted until 2 days ago, non e since then. She has not had any bowel movement in 2 days. Of note, she reports alternating loose stools and constipation 2 months prior to this admission. She is eating a nd tolerating her diet. Hemoglobin has been normal throughout this admission. History - Adult longitudinal Past medical history: Reports: Diabetes mellitus. Additional medical history: DM TYPE 1. DKA X 3 Past surgical history: Reports: Appendectomy, . Additional family history: Crohn disease - sister and mother Alcohol use: Denies EtOH use Drug use: Denies recreational drugs Smoking status for patients 13 years old or olde r: Never Smoker Other social history: Local resident, Good socia l support Allergies: Coded Allergies: clindamycin (Severe, VOMIT, HIVES, SOB 09/15/18) ondansetron (From ZOFRAN ( HYDROCHLORIDE)) (Mi ld, UNKNOWN 09/15/18) tramadol (Mild, HIVE 09/15/18) Penicillins (SWELLING 09/15/18) Ambulatory status: Independent Review of Systems Constitutional: Denies: chills, fever. Skin: Denies: bruising, itching, rash. Allergy/Immun: Denies: allergic reaction, hives, rhinorrhea. Eyes: Denies: redness, diplopia, eye pain, swelling. ENT: Denies: ear drainage, earache, nasal congestion. Respiratory: Denies: ZEPEDA (dyspnea on exertion), non productiv e cough, productive cough ( sputum), SOB. Cardiovascular: Denies: chest pain, edema, orthopnea. GI: Reports: other (as per HPI). Musculoskeletal: Denies: joint pain, joint swelling. Heme: Reports: bleeding. Objective Physical Exam VS/I O: Last Documented: Result Date Time Pulse Ox 99 09/16 1154 B/P 96/59 09/16 1154 B/P Mean 71.6 09/16 1154 Temp 36.8 09/16 1154 Pulse 76 09/16 1154 Resp 20 09/16 1154 O2 Delivery Room air 09/16 0312 24 hour I O ending at 0700: 09/16 0700 09/15 1900 Intake Total 1250.00 1295.00 Output Total Balance 1250.00 1295.00 Intake, IV 900.00 525.00 Intake, Oral 350 770 Number Voids 4 Medications: Active Meds + DC'd Last 24 Hrs Pantoprazole 40 MG DAILY IV Sodium Chloride 10 ML Insulin Glargine 35 UNITS BID SUBQ (CKD) Insulin Glargine 25 UNITS BID SUBQ (DC) Insulin Glargine 30 UNITS BID SUBQ (DC) Promethazine HCl 12.5 MG Q6H PRN PRN IV Sodium Chloride 10 ML Sodium Chloride 1,000 ML .Q8H IV Dextrose/Water 25 ML ASDIR PRN IV Insulin Human Lispro MODERATE DOSE SCALE ASDIR SUBQ Diphenhydramine HCl 25 MG ONCE PRN PO Morphine Sulfate 4 MG Q4H PRN PRN IV Sodium Chloride 5 ML Q12HR IV General appearance: alert, awake, oriented, no a cute distress HEENT: anicteric, clear cornea, moist mu cosal membranes, normocephalic, PERRLA Cardiovascular: regular rate rhythm Respiratory: aerating well, no distress Abdomen: distended, non-tender, normal bowel kenna nds, soft, no guarding, no rebound Extremities: moves all, normal temperature, no e eduardo 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, oriented X 3, normal speech Skin: dry, normal temperature, no rash Results Findings/Data: Laboratory Tests 09/16/18 0316: [Embedded Image Not Available] Laboratory Tests 09/16 09/16 09/15 09/15 1109 0316 2049 1557 Chemistry Sodium (137 - 145 mmol/L) 140 Potassium (3.4 - 5.0 mmol/L) 4.1 Chloride (98 - 107 mmol/L) 110 H Carbon Dioxide (22 - 30 mmol/L) 26 BUN (7 - 17 mg/dL) 13 Creatinine (0.5 - 1.0 mg/dL) 0.5 Glomerular Filtr Rate (>60) 156 Glucose (74 - 106 mg/dL) 141 H POC Glucose (74 - 106 MG/DL) 94 173 H 83 Calcium (8.4 - 10.2 mg/dL) 8.8 Phosphorus (2.5 - 4.5 mg/dL) 4.1 Magnesium (1.6 - 2.3 mg/dL) 1.9 Total Bilirubin (0.2 - 1.3 mg/dL) 0.2 Conjugated Bilirubin (0 - 0.3 mg/dL) 0 Unconjugated Bilirubin (0 - 1.1 mg/dL) 0 AST (15 - 46 U/L) 26 ALT (13 - 69 U/L) 16 Total Alk Phosphatase (38 - 126 U/L) 53 Total Protein (6.3 - 8.2 g/dL) 6.1 L Albumin (3.5 - 5.0 g/dL) 3.4 L Laboratory Tests 09/16 0316 Hematology WBC (5.0 - 12.0 x10 3/uL) 6.2 RBC (4.20 - 5.40 x10 6/uL) 3.72 L Hgb (12.0 - 16.0 g/dL) 12.1 Hct (36.0 - 46.0 %) 36.5 MCV (81 - 99 fL) 98 MCH (27 - 31 pg) 32.5 H MCHC (33 - 37 g/dL) 33.2 RDW (11.5 - 15.5 %) 11.9 Plt Count (130 - 400 x10 3/uL) 245 MPV (9.4 - 16.4 fL) 10.6 Neut % (Auto) (43 - 65 %) 26.4 L Lymph % (Auto) (20.5 - 45.5 %) 56.9 H [place] % (Auto) (5.5 - 11.7 %) 6.1 Eos % (Auto) (0.9 - 2.9 %) 9.3 H Baso % (Auto) (0.2 - 1.0 %) 1.1 H Neut # (Auto) (2.2 - 4.8 x10 3/uL) 1.64 L Lymph # (Auto) (1.3 - 2.9 x10 3/uL) 3.54 H [place] # (Auto) (0.3 - 0.8 x10 3/uL) 0.38 Eos # (Auto) (0.0 - 0.2 x10 3/uL) 0.58 H Baso # (Auto) (0.0 - 0.1 x10 3/uL) 0.07 Immature Gran % (0.0 - 2.0 %) 0.2 Nucleated RBC % (0 - 1.0 %) 0.0 Diagnosis, Assessment Plan Free Text DxA P Notes Free Text DxA P Notes: 28 y/o female who presented with abdominal pain, distention, and hematochezia 1. Hematochezia, hemoglobin stable 2. Abdominal distention 3. Family history of Crohn disease -KUB -CRP, Fecal leukocytes -Encourage to ambulate SaraiAdelaMiri 09/19/18 2131: Attestations Midlevel/Physician Attestation Physician attestation: Patient was seen and examined at bedside w/ SCALE MECHANIC o n 09/16. I agree with the findings and plan as documented by SCALE MECHANIC unless oth erwise stated below. 28yo female with PMHx signif icant for type 1 DM presents with abdominal pain. GI is consulted for hematochezia and abdominal dist ention. Patient reports that she was wakeboarding when she hit her abdomen on the board. Subsequently began experiencing abdominal pain a ssociated with increased abdominal distention and rec silvio bleeding. No BM in the past 2 days. At baseline, she has alternating bowel habits. No prior endos copic evaluation. Denies anticoagulation. Sister and mother with IBD. On presentation: afebrile, H D stable. Labs notable for Wbc 6.8, Hgb 14.3 (->13.1 ), Plt 298, INR 0.9, albumin 4.6, normal LFT, li pase 54, Hcg <5.0. CT angio without acute findings, hepatomegaly. AXR improv ing small bowel distention. GEN: young female in NAD HEENT: scleral anicteric; moist mucous membranes CVS: RRR RESP: CTAB ABD: soft, NT abdomen with mild abdominal disten tion; no rebound/guarding EXT: no edema NEURO: AOx3 Labs/Imaging: reviewed Assessment 1. Bright red blood per rectum. Hemodynamically stable. Normal hemoglobin, albumin, platelet count suggest absence of chronic inflammatory bowel disease. Likely hemorrhoidal 2. Abdominal distention. CT without intestinal o bstruction. Having BM and tolerating diet 3. Hepatomegaly 4. Diabetes mellitus 5. Family history of IBD Plan: - no indication for urgent endoscopic evaluation (furthermore, small bowel distention makes it less likely she will tolerat e bowel prep) - obtain AXR today for comparison - check CRP, fecal leukocyte (as calprotectin an d lactoferrin not available) - encourage ambulation to stimulate gastrointest inal motility - avoid agents which slow gastrointestinal motil ity (including opioids) - follow-up with GI as outpatient Thank you for the opportunit y to be involved in the care of this patient. Please do not hesitate to call should any questions barry se at [phone] Electronically Signed by Miri Moon MD on 0 09/19/18 at 2208 RPT #:[id number] END OF REPORT 2018-09-15 [id number] [facility] 23:40:00-00:00 [address] [facility] [address] [place] [address] PATIENT NAME: MALLORY GOMEZ ADMIT DATE: 09/16/18 ACCOUNT NO: [id number] ROOM NO: .[facility] AGE: 28 REPORT TYPE: CONSULTATION SEX: F ADMITTING PHYSICIAN:Maverick Guerra MD ATTENDING PHYSICIAN:Maverick Guerra MD CONSULTATION DATE: 09/15/2018 CONSULTING PHYSICIAN: Anil Caal MD REASON FOR EVALUATION: Abdominal pain and rectal bleeding. HISTORY OF PRESENT ILLNESS: The patient is a ple asant 28-year-old female who was admitted through the Emergency Department wi complaints of severe persistent worsening abdomin al pain that has been ongoing for the past couple of days. The patient noted that about a week ago, s he did have blunt abdominal trauma to her upper abdominal area after she fell and hit her upper stomach on the fence. She noted that subsequent to that epi sode, she felt well and was doing okay. A couple of days, subsequent to that , she did undergo some water sports and water skiing exercises and ag ain did incur some blunt trauma to her abdominal wall. She noted that over the past cou ple of days, she has been having several episodes of bright red blood per rectum. She has noticed progressive increase in her abdominal girth. She reports bloating and nausea. She denies emesis. She denies fevers or chills. Upon evaluation in this Emergency Department, she did undergo a CT angiogram, which did not reveal any blush or active gastrointestinal bleed. Surgical services were then consulted for further evaluation. PAST MEDICAL HISTORY: Significant for diabetes m ellitus type 1. PAST SURGICAL HISTORY: Significant for appendect bertram, gallbladder surgery, EGD x2, and section. MEDICATIONS: The patient is on insulin as well a s promethazine. ALLERGIES: NO KNOWN DRUG ALLERGIES. FAMILY HISTORY: Noncontributory. SOCIAL HISTORY: Significant for tobacco use and occasional alcohol use. The patient denies substance abuse. REVIEW OF SYSTEMS: Twelve-point review of system s are all negative except as per HPI and past medical history. PHYSICAL EXAMINATION: GENERAL: The patient is a well-developed, well-n ourished female seen lying in bed, in moderate distress from abdominal pain. VITAL SIGNS: Temperature 36.9 degrees centigrade , heart rate 86, respiratory PATIENT NAME: MALLORY GOMEZ 284 rate 14, and blood pressure 104/68. HEENT: Pupils are equal, round, and reactive to light. Oral mucosa is moist and pink. HEENT: Head is normocephalic and atraumatic. NECK: Supple without lymphadenopathy. Sclerae ar e not icteric. No cervical masses or crepitus is noted. CHEST: Clear in the anterior lung sarmiento. No res piratory distress. CARDIAC: S1 and S2 sounds normal. No tachycardia . ABDOMEN: Distended and soft. There is diffuse te nderness to palpation. No obvious guarding or peritoneal signs not ed. There is an ecchymotic area in the upper abdominal area transversely, which correla cristina with the area that she defines when the patient fell. HEMATOLOGIC AND IMMUNOLOGIC: No inguinal or cervical lymphadenopathy is noted. SKIN: Warm and dry without any ulcerations or ra sh. NEUROLOGIC: The patient moves all extrem ities spontaneously. No recent seizure activities. PSYCHIATRIC: The patient is oriented to self, pl heladio, and time. The patient is of appropriate mood and affect. LABORATORY DATA AND DIAGNOSTIC STUDIES: Electrolytes are grossly within normal limits, except for a blood glucose level of 235. Lipase is normal at 54. CBC with white blood cell count 6.8, hemoglobin 14.3, hematocrit 42.4, and platelet count 298 with no left shift. Again, CT angiogra m did not reveal any active blush or colonic wall thickening. IMPRESSION: 1. A 28-year-old female with blunt abdominal tra flores and clinical picture suspicious for ileus. No acu te intraabdominal findings were noted on recent CAT scan. 2. Hematochezia, likely related to blunt abdomin al trauma and mucosal irritation. RECOMMENDATIONS: We will recommend continued obs ervation, bowel rest, and IV fluid rehydration. No acute surgical interventio n is needed at this time. We will follow the patient with the primary team. Dictated By: Anil Caal MD WT: CON:EDMOND/MARY/SHANEKA Conf#: [id number]/DID#: [id number] Authenticated by Anil Caal MD On 09/22/2018 1 0:24:58 PM Electronically Signed by Anil Caal MD on at 2225 PATIENT NAME: MALLORY GOMEZ [facility] 2018-09-15 [facility] 15:24:00-00:00 [facility] ([facility]) Clinical Note REPORT#:[id number] REPORT STATUS: Signed DATE:09/15/18 TIME: 1524 PATIENT: MALLORY GOMEZ UNIT #: [id number] ROOM/BED: [address] : 90 AGE: 28 SEX: F ATTEND: Jose Guerra MD ADM AUTHOR: Anil Caal MD * ALL edits or amendments must be made on the el [employer]/computer document * Clinical Note Note: pleasant 28-year-old female is admitted with diffuse abdominal pain distention and bloating and hematochezia. She did s uffer a blunt abdominal injury several days ago. Subsequent to that she did perform fidel e water sports. Prior to admission she complained of distention nausea vo miting and diarrhea. She noticed some blood in the di arrhea. Upon admission a CT scan of the abdomen and pelvis was obtained which di d not reveal any evidence of ongoing intra-abdominal bleed. Given the amount of distention recommend bowel rest with IV fluid rehydration and pain control. We will also recom mend GI evaluation. No acute surgical intervention is needed at this time. Electronically Signed by Anil Caal MD on 06/05 at 1526 [facility] #:[id number] END OF REPORT 2018-09-15 [id number] [facility] 12:11:00-00:00 [address] [facility]. [address] [place] [address] PATIENT NAME: MALLORY GOMEZ ADMIT DATE: 09/16/18 ACCOUNT NO: [id number] ROOM NO: .550 AGE: 28 REPORT TYPE: HISTORY AND PHYSICAL SEX: F ADMITTING PHYSICIAN:Maverick Guerra MD ATTENDING PHYSICIAN:Maverick Guerra MD ADMISSION DATE: 09/15/2018 CHIEF COMPLAINT: Abdominal pain and rectal bleed ing. HISTORY OF PRESENT ILLNESS: Ms. Mallory Gomez is a 28-year-old female who has been complaining of blood in the stools since Thursday. The patient said she had 3 episodes on Thursday and 4 to 5 episodes yesterd and hence she came in overnight and she was admitted. It was accompani ed by a generalized abdominal pain. It was sharp and stabbing in character. Th ere was no fever, no chills, no dysuria, and no hematuria. There was no hemat emesis. ALLERGIES: SULFA, TRAMADOL, PENICILLIN, AND CLIN DAMYCIN. PAST MEDICAL HISTORY: Diabetes. MEDICATIONS AT HOME: Include Levemir 35 units tw ice a day and NovoLog 5 units with each meal and promethazine. PAST SURGICAL HISTORY: Appendectomy, gal lbladder surgery, EGD x2, and section. SOCIAL HISTORY: Less than half a pack per day sm oker. Occasional ETOH. , 2 children. PHYSICAL EXAMINATION: GENERAL APPEARANCE: In no apparent distress. VITAL SIGNS: Blood pressure 108/64, pulse rate 91, respirations 14, temperature 98.8, and O2 saturation 96%. HEENT: Normocephalic and atraumatic. Salome conjun ctivae. Anicteric sclerae. Pupils reactive. NECK: Supple. HEART: Normal rate, regular rhythm. LUNGS: Clear to auscultation. ABDOMEN: Benign. EXTREMITIES: No cyanosis, no clubbing, and no ed renetta. NEUROLOGIC: Nonfocal. LABORATORY DATA AND DIAGNOSTIC STUDIES: Chem-7 s ignificant for sugar of 235, serum bicarbonate of 20, BUN of 9, creatinine 0. 6, and calcium of 10.5. Cholesterol 178. Normal OT, PT, and alkaline irina sphatase. No lipase was done. HCG is negative. PT and PTT is normal. White cou nt is normal, H and H is normal, and platelet count is normal. Urinalysis shows 3+ glucose, negative nitrite, negative leukocyte esterase, 0 to 3 wbc's, and 0 to [address] of the PATIENT NAME: MALLORY GOMEZ 284 abdomen shows no acute finding. No free intra-ab dominal fluid. No intra-abdominal solid organ injury. High density material in the stomach reflect ingested contents due to the density is much higher density material blood flow and hepatomegaly. ASSESSMENT AND PLAN: A 28-ye ar-old female with type 1 diabetes, presenting with a several-day history of abd ominal pain and initially dark maroon-colored blood and then fresh blood in the last few pili es. Hemodynamically stable. PT and PTT normal. Followup H and H is requested. GI consul t is requested. IV proton pump inhibitor requested. Appreciate surgical in put. Dictated By: Maverick Guerra MD WT: HP:CCY/ANSHU/NTS Conf#: [id number]/DID#: [id number] Authenticated by Maverick Guerra MD On 9 09:41:27 PM at 2141 PATIENT NAME: MALLORY GOMEZ 284 2018-09-15 [facility] 01:25:00-00:00 [facility] ([facility]) EMERGENCY PROVIDER REPORT REPORT#:[id number] REPORT STATUS: Signed DATE:09/15/18 TIME: 0125 PATIENT: MALLORY GOMEZ UNIT #: [id number] ROOM[facility]BED: [facility] AGE: 28 SEX: F PCP PHYS: Sanchez,Eva G DO SERVICE AUTHOR: Дмитрий Lopez MD * ALL edits or amendments must be made on the Smish/computer document * HPI-GI Bleed/Rectal Prob General Confirmed Patient Yes Patient Type New patient Initial Greet Date/Time 09/15/18 0106 PCP PCP: Dr. Eva Sanchez Presentation Chief Complaint Abdominal pain, Stool maroon Hx Obtained From Patient, Family Onset Occurred Days ago (2) Symptom Duration Since onset Progression since Onset Gradually worsening Context of Onset Spontaneous bleeding Location Diffuse Quality Stabbing Radiation Does not radiate. Severity: Onset Mild Severity: Current Moderate Associated Other Nausea Context /Sexual Hx Status Denies Sexual History/ Control Reports: Pt is sexually active, Depo-Provera. Free Text HPI Notes Free Text HPI Notes 28 y/o female with a hx of Type I DM, , and appendectomy presents to the ED c/o dark red blood in her stool f or the past 2 days. 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 Pt states that 6 days ago, she ran into a fence right above her belly button and it folded her ove r. Pt's reports that the pt was wakeboarding yesterday and the pt hit the waves hard. Pt note s that she has been compliant with taking insulin. Pt admi ts to drinking alcohol tonight. Pt denies chest pain , SOB, vomiting, diarrhea, fever, chills, cough, or any other symptoms or complaints. Portions of this section wer e scribed by Alison Miranda on 09/15/18 at 0350 Review of Systems ROS Statements All systems rev neg except as marked. Focused Review of Systems Constitutional Denies: Chills, Fever. Ears/Nose/Throat Denies: Earache bilat, Nasal congestion, Sore th roat. Respiratory Denies: Cough, non-productive, Cough, productive , Shortness of breath. Cardiovascular Denies: Chest pain, Palpitations. GI Reports: Abdominal pain, Bloody/tarry stool, [place]. Denies: Diarrhea, Vomiting. Skin Denies: Rash, Swelling. Neurologic Denies: Generalized weakness, Headache. Additional Review of Systems Eyes Denies: Eye pain bilat, Visual loss bilat. Female Denies: Flank pain, Nocturia. Musculoskeletal Denies: Extremity pain, Extremity swelling. Psychiatric Denies: Agitation, Change mental status. Portions of this section wer e scribed by Alison Miranda on 09/15/18 at 0132 Past Medical History - Adult Stated Complaint BLOD IN STOOL Allergies Coded Allergies: clindamycin (Severe, VOMIT, HIVES, SOB 09/15/18) ondansetron (From ZOFRAN ( HYDROCHLORIDE)) (Mi ld, UNKNOWN 09/15/18) tramadol (Mild, HIVE 09/15/18) Penicillins (SWELLING 09/15/18) Home Medications Active Scripts INSULIN LISPRO (HumaLOG) 5 UNITS SUBQ AC SENNOSIDES/DOCUSATE SOD (ARMANDO-COLACE 8.6/50 MG) 1 TAB PO BID SENNOSIDES/DOCUSATE SOD (ARMANDO-COLACE 8.6/50 MG) 1 TAB PO BID #60 TAB Prov: 07/12/18 POLYETHYLENE GLYCOL 3350 (MIRALAX) 17 GM PO BEDT BETHANY POLYETHYLENE GLYCOL 3350 (MIRALAX) 17 GM PO BED TIME #30 PACKET Prov: 07/12/18 CEFUROXIME AXETIL (CEFTIN) 500 MG PO BID CEFUROXIME AXETIL (CEFTIN) 500 MG PO BID #14 TA BS Prov: 07/12/18 ACETAMINOPHEN/CODEINE (TYLENOL WITH CODE INE #3 300/30 MG) 1 TAB PO Q6H PRN PRN ABDOMINAL CRAMPS/PAIN ACETAMINOPHEN/CODEINE (TYLENOL WITH CODEINE #3 300/30 MG) 1 TAB PO Q6H PRN PRN ABDOMINAL CRAMPS/PAIN #20 TABS Prov: 07/12/18 ALBUTEROL (PROAIR HFA 90 MCG/ACT) 2 PUFF INH RTQ 6H PRN PRN COUGH/CONGESTION ALBUTEROL (PROAIR HFA 90 MCG/ACT) 2 PUFF INH RT Q6H PRN PRN COUGH/CONGESTION #1 INHALER Prov: 07/12/18 Reported Medications INSULIN DETEMIR (LEVEMIR) 25 UNIT SQ BID Review of Nursing Notes Rev avail, and agree Pt reports no significant: Family history Past Medical History: Reports: Diabetes mellitus. Additional Medical History DM TYPE 1. DKA X 3 Past Surgical History: Reports: Appendectomy, . Alcohol Use Denies EtOH use Drug Use Denies recreational drugs Smoking status for patients 13 years old or olde r: Never Smoker Other Social History Local resident, Good social support Ambulatory Status Independent Portions of this section claudio michelle scribed by Alison Miranda on 09/15/18 at 0125 Physical Exam Vital Signs Vital Signs First Documented: Result Date Time Pulse Ox 100 09/15 0109 B/P 121/80 09/15 0109 B/P Mean 93 09/15 010 O2 Delivery Room air 09/15 010 Temp 98.2 09/15 010 Pulse 99 09/15 010 Resp 16 09/15 010 Last Documented: Result Date Time Pulse Ox 100 09/15 0109 B/P 121/80 09/15 0109 B/P Mean 93 09/15 0109 O2 Delivery Room air 09/15 108 Temp 98.2 09/15 010 Pulse 99 09/15 0109 Resp 16 09/15 010 Review of Vital Signs Reviewed Focused PE General/Const General/Const Awake, Alert, No acute distress Ears/Nose/Throat Ears/Nose/Throat Airway patent, Mucous membrane s moist, Pharynx NL Resp/Chest Respiratory/Chest Breath sounds NL, Breath soun ds = bilat, No respiratory distress, No rales, No rhonchi, No wheezing Cardiovascular Cardiovascular Regular rhythm, Heart sounds NL, No gallop, No murmurs, No rubs Heart Rate/Rhythm Tachycardia. Abdomen/GI Abdomen/GI Soft, No guarding, No rebound Text/Dict Notes Diffuse abdominal tenderness; abdominal distention; Linear bruise noted across abdomen Skin Skin Color NL, Warm, Dry, Turgor NL Rectum Rectum/Perineum Exam deferred Neurologic Neurologic Oriented X3, Speech NL, No motor def icits, No sensory deficits Additional PE MS Head Head Atraumatic, Normocephalic Eyes Eyes PERRL, EOMI, No nystagmus, Conjunctiva NL, Eyelids NL MS Neck Neck Supple, No meningismus, Full range of miky on, No adenopathy MS Back Back Atraumatic, Inspection NL, Full range of m otion MS Upper Extrem Upper Extremity/MS Atraumatic, Inspection NL, F ull range of motion, No swelling MS Lower Extrem Lower Ext/Pelvis/MS Atraumatic, Inspection NL, Full range of motion, No swelling Psychiatric Psychiatric Affect NL, Mood NL, Judgment/insigh t NL, Thought content NL Portions of this section wer e scribed by Alison Miranda on 09/15/18 at 0201 Interpretation Diagnostics Lab Results Interpretation Results Laboratory Tests 09/15/18 0132: [Embedded Image Not Available] Laboratory Tests: 09/15 09/15 09/15 0231 0137 0135 Chemistry POC Creatinine (0.52 - 1.04 mg/dL) 0.6 Beta HCG, Quant (0 - 4.9 IU/L) <5.0 Urines Urine Color (Yellow) Colorless Urine Appearance (Clear) Clear Urine pH (5.0 - 8.0) 7.0 Ur Specific [place] (<1.030) 1.020 Urine Protein (Negative mg/dL) NEGATIVE Urine Glucose (UA) (Negative) >=500 (3+) H Urine Ketones (Negative mg/dL) Negative Urine Blood (Negative) Negative Urine Nitrite (Negative) Negative Urine Bilirubin (Negative) Negative Urine Urobilinogen (Negative mg/dL) Negative Ur Leukocyte Esterase (Negative) NEGATIVE Urine RBC (<4 - 5 /HPF) 0-3 Urine WBC (<4 - 5 /HPF) 0-3 Ur Squamous Epith Cells (0 - 5 (RARE) /HPF) 0-5 (RARE) Urine Mucus (<Rare /LPF) Rare H 09/16 131 Chemistry Sodium (137 - 145 mmol/L) 141 Potassium (3.4 - 5.0 mmol/L) 4.0 Chloride (98 - 107 mmol/L) 105 Carbon Dioxide (22 - 30 mmol/L) 20 L BUN (7 - 17 mg/dL) 9 Creatinine (0.5 - 1.0 mg/dL) 0.6 Glomerular Filtr Rate (>60) 127 Glucose (74 - 106 mg/dL) 235 H Calcium (8.4 - 10.2 mg/dL) 10.5 H Total Bilirubin (0.2 - 1.3 mg/dL) 0.4 Conjugated Bilirubin (0 - 0.3 mg/dL) 0 Unconjugated Bilirubin (0 - 1.1 mg/dL) 0 AST (15 - 46 U/L) 19 ALT (13 - 69 U/L) < 13 L Total Alk Phosphatase (38 - 126 U/L) 78 Total Protein (6.3 - 8.2 g/dL) 7.9 Albumin (3.5 - 5.0 g/dL) 4.6 Coagulation INR 0.9 PTT ([place]) (23.4 - 37.0 SECONDS) 22.9 L PT Patient/Control Mix (9.2 - 12.1 SECONDS) 9.9 Hematology WBC (5.0 - 12.0 x10 3/uL) 6.8 RBC (4.20 - 5.40 x10 6/uL) 4.39 Hgb (12.0 - 16.0 g/dL) 14.3 Hct (36.0 - 46.0 %) 42.4 MCV (81 - 99 fL) 97 MCH (27 - 31 pg) 32.6 H MCHC (33 - 37 g/dL) 33.7 RDW (11.5 - 15.5 %) 11.7 Plt Count (130 - 400 x10 3/uL) 298 MPV (9.4 - 16.4 fL) 10.5 Neut % (Auto) (43 - 65 %) 33.7 L Lymph % (Auto) (20.5 - 45.5 %) 49.9 H [place] % (Auto) (5.5 - 11.7 %) 6.0 Eos % (Auto) (0.9 - 2.9 %) 9.2 H Baso % (Auto) (0.2 - 1.0 %) 0.9 Neut # (Auto) (2.2 - 4.8 x10 3/uL) 2.31 Lymph # (Auto) (1.3 - 2.9 x10 3/uL) 3.41 H [place] # (Auto) (0.3 - 0.8 x10 3/uL) 0.41 Eos # (Auto) (0.0 - 0.2 x10 3/uL) 0.63 H Baso # (Auto) (0.0 - 0.1 x10 3/uL) 0.06 Immature Gran % (0.0 - 2.0 %) 0.3 Nucleated RBC % (0 - 1.0 %) 0.0 Recent Impressions: CAT SCAN - CTA ABD PEL W CONT 09/15 0151 Report Impression - Status: SIGNED Entered: 09/15/2018 0214 IMPRESSION: No acute findings. No free intra-abdominal fluid . No intra-abdominal solid organ injury. High-density material in the stomach most likely reflects ingested contents due to the density is much higher than that of the arterial blood pool. Hepatomegaly. Impression By: Bernard Best MD, [facility] Lab Imaging Statement Laboratory radiographic studies reviewed and con sidered in the medical decision-making. Point of Care Testing Pulse Oximetry Pulse Ox % 100 On: Room air Interpretation Interpreted by me, Pulse oximetr y normal Time 0109 ECG #1 Interpretation Text/Dict Note SINUS TACHYCARDIA AT 114; NL AXIS; NL INTERVALS; NO ACUTE ST CHANGES ECG Documented in MUSE Yes Date 09/15/18 Time 0105 Interpreted by ED physician Rate 114 Portions of this section wer e scribed by Alison Miranda on 09/15/18 at 0350 Re-Evaluation MDM Re-Evaluation/Progress #1 Text/Dict Note On re-evaluation, abdomen is still tende r. CTA is negative. I am still worried about INTERNAL bleeding give n ecchymosis on abdomen and abdominal distention. I am going to discuss the pt w norm Caal and will admit pt for serial abdominal exam. SURG CS Time of Re-Eval 0222 ED Course Medication(s) Ordered Medication(s) Ordered: Antihistamine Drugs Sig/Dennis Start time Last Medication Dose Route Stop Time Status Admin Promethazine HCl 25 MG X1ED STA 09/15 0141 AC 0 09/15 Sodium Chloride 10 ML IV 09/15 1240 0159 Central Nervous System Agents Sig/Dennis Start time Last Medication Dose Route Stop Time Status Admin Fentanyl Citrate 50 MCG X1ED STA 09/15 0228 DC 09/15 IV 09/15 0229 0245 Diagnostic Agents Sig/Dennis Start time Last Medication Dose Route Stop Time Status Admin Iopamidol 100 ML .STK-MED ONE 09/15 0152 DC IV 09/15 0153 0152 Electrolytic, Caloric, And Simi Sig/Dennis Start time Last Medication Dose Route Stop Time Status Admin Sodium Chloride 250 ML ASDIR PRN 09/15 0245 AC IV 09/15 0841 Sodium Chloride 1,000 ML X1ED STA 09/15 0240 DC 09/15 IV 09/15 0241 0246 Other Sig/Dennis Start time Last Medication Dose Route Stop Time Status Admin Sodium Chloride 5 ML Q12HR 09/15 0900 AC IV 10/15 0901 Sodium Chloride 5 ML ASDIR PRN 09/15 0245 AC IV 09/15 0841 Sodium Chloride 10 ML ASDIR PRN 09/15 0245 AC IV 09/15 0841 Consultation Consultation Referral/Consult Name Anil Caal MD [employer] Head Called Surgeon Requested Call Time 022 Requested Call Date 09/15/18 Call Returned Call returned Call Returned Time 023 Call Returned Date 09/15/18 [employer] Head Will see patient, Agrees with eval, Agrees with plan Portions of this section wer e scribed by Alison Miranda on 09/15/18 at 0350 Patient Discharge Departure Vital Signs/Condition Vital Signs First Documented: Result Date Time Pulse Ox 100 / 0109 B/P 121/80 05/ 0109 B/P Mean 93 / 0109 O2 Delivery Room air 09/15 0109 Temp 98.2 / 0109 Pulse 99 / 0109 Resp 16 09/15 0109 Last Documented: Result Date Time Pulse Ox 100 / 0109 B/P 121/80 / 0109 B/P Mean 93 / 0109 O2 Delivery Room air 09/15 0109 Temp 98.2 / 0109 Pulse 99 / 0109 Resp 16 09/15 0109 All vital signs available at the time of this en try have been reviewed. Condition Guarded Clinical Impression Clinical Impression Primary Impression: Abdominal pain Secondary Impressions: Abdominal distension Disposition Decision Admit Admit Physician Name Maverick Guerra MD Admit Physician Hospitalist Request Time 024 Request Date 09/15/18 )( Admission Accepts Yes (via Dr. Noble) )( Accepted Time 024 )( Accepted Date 09/15/18 Call Information will see patient, agrees with eval, agrees with plan Discharge/Care Plan Counseled Regarding Diagnosi s, Lab results, Imaging studies, Need for admission Admit Note I have spoken with the patie nt and/or caregivers. I have explained the patient's condition, diagnoses and jeni atment plan based on the information available to me at this time. I have answered the patient's and/ or caregiver's questions and addressed any concerns. The patient and/or careg charmaine have as good an understanding of the patient 's diagnosis, condition and treatment plan as can be expected at this point. The patient has been stabilized within the capability of the emergency department. The patient wi ll be transported for further care and management or will be moved to an observation or inpatient service. I have communicated with the staff or medical p ractitioner taking over this patient's care. Quality Measures BP F/U for HTN Patient admitted, BP in normal ra nge 12-Lead ECG for CP Performed documented Smoking Cessation Screened, non user Tobacco Screening/Cessation 18 years or older, D enies tobacco use Supervising Physician Note Scribe Statement Alison Miranda, 09/15/18 0127, scribing for and in the presence of [Dr. Дмитрий Lopez]. Signed By: Alison Miranda, 09/15/18 0127 Provider Scribed Statement I personally performed the s ervices described in this documentation and reviewed the documentation that was dictated to the scrib e(s) in my presence, and it accurately records my words and actions. Дмитрий Scott, 09/15/18 Portions of this section wer e scribed by Alison Miranda on 09/15/18 at 0240 at 0505 RPT #:[id number] END OF REPORT 2018-08-03 Patient Name: MALLORY GOMEZ [facility] 13:01:00-00:00 : 1990; Age: 28 years y/o Female MR: [id number] Study: Chest 1view DX 08/03/2018 1:01 PM CDT Ordering Physician: Sowmya Ricketts MD Clinical Indication: - fever, cough; Comparison: 07/16/2018 chest radiograph Discussion: mild thoracolumbar scoliosis, convex right. Azygos lobe, a normal anatom ic variant. The lungs are otherwise clear. No large collections of pleural fluid. The cardiac silhouette and pulmonary vasculature are normal. Surgical clips in the right upper quadrant of th e abdomen. IMPRESSION: No acute disease in the chest. SL: [id number] 2018-07-22 [facility] Outpatient 10:11:00-00:00 [place] COMPLETE ULTRASOUND OF BOTH BREASTS AND AXILLA: 07/22/2018 CLINICAL: 27 yo with right b reast pain and 3 episodes of yellow nipple discharge. COMPARISON:No prior exams were available for reba garcia. TECHNIQUE: Color flow and re al-time ultrasound of both breasts four quadrants, retroareolar, and axilla regions were performed. Mead scale images of the real- time examination were reviewed. FINDINGS: No abnormalities were seen s onographically in either breast or either axilla. Technique: Real-time sonographic imaging of the right and left breasts (all 4 quadrants and retroareolar soft tissues were s canned) and axilla was perfo rmed. Images were obtained in multiple scanning planes. IMPRESSION: BENIGN RECOMMENDATION: Recommend clinical management of nipple discharg e. There is no sonographic evidence of malignancy. Follow-up with ACR/ACS guide lines. This exam was interpreted at [id number] at [facility] [place]. SUMMARY: These findings and recommend ations were discussed between the patient and Dr. Villeda at the time of examination. Kate lima/penrad:07/22/2018 11:43:03 Drainman(s): Ernesto Meza [facility] letter sent: BI-RADS 1/2 Ultrasound BI-RADS: 2 Benign 2018-07-16 Patient Name: MALLORY GOMEZ [facility] 16:48:00-00:00 : 1990. Age: 27 years. Gender: Female. MR: [id number]. Location: [facility]. Provider: Chilo Teague. EXAM: Brain wo contrast CT. 07/16/2018 16:48 UTILITY AGENT PROVIDED CLINICAL HISTORY: Syncope. Head injury. TECHNIQUE: Contiguous axial images from the skull base to the vertex without intravenous contrast. Coronal and sagittal reformats. EXPOSURE: Total exam DLP is 992.04 mGy-cm. COMPARISON: No relevant prior exams available at the time of interpretation. FINDINGS: BRAIN: No acute transcortica l infarct. No clinically significant white matter disease. No brain parenchymal contusion or edema. No intracranial hemorrhage or other fluid collection. No intracranial mass. Age-consistent brain parenchymal volume. VENTRICLES / CISTERNS / SHIF T: No hydrocephalus. No significant effacement of the basal cisterns or foramen magnum. No significant midline shift. BONES / SCALP: No significan t extracranial soft tissue abnormality. No acute depressed fracture of the calvarium or skull base. No aggressive bone lesions. IMAGED SINUSES / MASTOIDS / MISC: No significant sinus mucosal thickening. No significant paranasal sinus fluid. No significant fluid in the imaged mastoid air cells. IMPRESSION: No definite CT evidence of acute intracranial ab normality. No acute fracture. SL: [id number] 2018-07-16 EXAM: XR CHEST SINGLE VIEW No [facility] 16:48:00-00:00 HISTORY: 27 years old Female with - syncope TECHNIQUE: A single AP view of the chest was obt ained. COMPARISON: Chest radiograph 04/02/2018 FINDINGS: The cardiomediastinal silhou ette is within normal limits. Azygous fissure noted. No focal consolidation or pleural effusion is seen. No definite pneumothorax is seen. No acute osseous abnormality is evident. IMPRESSION: 1. No acute cardiopulmonary abnormality. SL: [id number] 2018-07-13 [facility]:53[facility]:00 [facility] ([facility]) EMERGENCY PROVIDER REPORT REPORT#:[id number] REPORT STATUS: Signed DATE:07/13/18 TIME: 2352 PATIENT: MALLORY GOMEZ UNIT #: [id number] ROOM/BED: AGE: 27 SEX: F PCP PHYS: Eva Sanchez DO SERVICE AUTHOR: Ro Carter SCALE MECHANIC * ALL edits or amendments must be made on the el ectronic/computer document * HPI-Hand Prob/Inj General Confirmed Patient Yes Initial Greet Date/Time 07/13/[address] Sanchez Presentation Chief Complaint Hand pain R, Hand swelling R Hx Obtained From Patient Onset Occurred Yesterday Symptom Duration Since onset Progression since Onset Gradually worsening Caused by No trauma by history Quality Painful Radiation Does not radiate Severity: Onset Mild Severity: Current Moderate Free Text HPI Notes Free Text HPI Notes 27 y/o F pt w/ a pmhx of DM presents to the ED c /o swelling and pain to the right hand onset yesterday. Pt reports that she was discharged from the hospital yesterday for constipation and noticed t hat her hand was swelling after having an IV removed. Pt states that swelling has gotte n worse. Pt went to an urgent care today where she had an US performed and was told that she had a large amount of fluid in the hand. Pt denies fever, cough, back pain, CP, SOB, n/v/d, or any other concerns and complaints at this pili e. Portions of this section were scribed by Rogelio Ruffin on 07/13/18 at 2359 Review of Systems ROS Statements All systems rev neg except as marked. Focused Review of Systems Constitutional Denies: Chills, Fatigue, Fever, Weakness - gener alized. Musculoskeletal Reports: Extremity pain, Extremity swelling. Den ies: Back pain, Myalgia, Neck pain. Skin Reports: Erythema, Swelling. Denies: Abrasion, A bscess, Burn. Neurologic Denies: Focal weakness, Headache, Seizure, Synco pe. Additional Review of Systems Eyes Denies: Discharge bilat, Redness bilat. Ears/Nose/Throat Denies: Earache bilat, Nasal congestion, Sinus p roblem, Sore throat. Respiratory Denies: Cough, non-productiv e, Cough, productive, Shortness of breath, Wheezing. Cardiovascular Denies: Chest pain, Palpitations, Syncope. GI Denies: Abdominal pain, Constipation, Diarrhea, Nausea, Vomiting. Female Denies: Dysuria, Flank pain, Hematuria, . Portions of this section were scribed by Rogelio Ruffin on 07/13/18 at 2359 Past Medical History - Adult Stated Complaint HAND SWELLING Allergies Coded Allergies: clindamycin (Severe, VOMIT, HIVES, SOB 07/13/18) ondansetron (From ZOFRAN ( HYDROCHLORIDE)) (Mi ld, UNKNOWN 04/05/14) tramadol (Mild, HIVE 07/12/18) Penicillins (SWELLING 07/11/18) Home Medications Active Scripts INSULIN LISPRO (HumaLOG) 5 UNITS SUBQ AC SENNOSIDES/DOCUSATE SOD (ARMANDO-COLACE 8.6/50 MG) 1 TAB PO BID SENNOSIDES/DOCUSATE SOD (ARMANDO-COLACE 8.6/50 MG) 1 TAB PO BID #60 TAB Prov: 07/12/18 POLYETHYLENE GLYCOL 3350 (MIRALAX) 17 GM PO BEDT BETHANY POLYETHYLENE GLYCOL 3350 (MIRALAX) 17 GM PO BED TIME #30 PACKET Prov: 07/12/18 CEFUROXIME AXETIL (CEFTIN) 500 MG PO BID CEFUROXIME AXETIL (CEFTIN) 500 MG PO BID #14 TA BS Prov: 07/12/18 ACETAMINOPHEN/CODEINE (TYLENOL WITH CODE INE #3 300/30 MG) 1 TAB PO Q6H PRN PRN ABDOMINAL CRAMPS/PAIN ACETAMINOPHEN/CODEINE (TYLENOL WITH CODEINE #3 300/30 MG) 1 TAB PO Q6H PRN PRN ABDOMINAL CRAMPS/PAIN #20 TABS Prov: 07/12/18 ALBUTEROL (PROAIR HFA 90 MCG/ACT) 2 PUFF INH RTQ 6H PRN PRN COUGH/CONGESTION ALBUTEROL (PROAIR HFA 90 MCG/ACT) 2 PUFF INH RT Q6H PRN PRN COUGH/CONGESTION #1 INHALER Prov: 07/12/18 Discontinued Scripts INSULIN DETEMIR (LEVEMIR) 35 UNITS SUBQ DAILY 21 00 ACETAMINOPHEN/CODEINE (TYLENOL WITH CODE INE #3 300/30 MG) 1 TAB PO Q6H PRN PRN ABDOMINAL CRAMPS/PAIN Reported Medications INSULIN DETEMIR (LEVEMIR) 25 UNIT SQ BID Review of Nursing Notes Rev avail, and agree Past Medical History: Reports: Diabetes mellitus. Additional Medical History DM TYPE 1. DKA X 3 Past Surgical History: Reports: Appendectomy, . Additional Surgical History IUD, CURRENTLY MALPOSITIONED IN ENDOCERVICAL CAN AL Alcohol Use Denies EtOH use Drug Use Denies recreational drugs Smoking status for patients 13 years old or olde r: Unknown,if ever smoked Other Social History Local resident Ambulatory Status Independent Portions of this section were scribed by Rogelio Ruffin on 07/13/18 at 2353 Physical Exam Vital Signs Vital Signs First Documented: Result Date Time Pulse Ox 98 07/13 2349 B/P 112/78 07/13 2348 B/P Mean 89.2 07/13 2348 Temp 36.6 07/13 234 Pulse 99 07/13 234 Resp 07/13 Last Documented: Result Date Time Pulse Ox 98 07/13 2349 B/P 112/78 07/13 2348 B/P Mean 89.2 07/13 2348 Temp 36.6 07/13 2348 Pulse 99 07/13 234 Resp 07/13 Review of Vital Signs Reviewed Focused PE General/Const General/Const Awake, Alert, No acute di stress, Well appearing, Well developed , Well hydrated, Well nourished, Cooperative, No t toxic appearing MS Wrist/Hand Right Hand Swelling present (mild, dorsl aspect), Erythema present (moderate ). Skin Skin No rash, Dry, Intact Text/Dict Notes See MS Wrist/Hand Neurologic Neurologic Oriented X3, Speech NL, Gait NL Additional PE MS Head Head Atraumatic, Normocephalic Eyes Eyes No periorbital redness, No periorbital swe lling, Eyelids NL Ears/Nose/Throat Ears/Nose/Throat Airway patent, Nose exam NL, N o facial swelling MS Neck Neck Supple, No meningismus, Full range of miky on, No swelling, Non-tender Resp/Chest Respiratory/Chest Breath sounds NL, Breath soun ds = bilat, No respiratory distress, No rales, No rhonchi, No wheezing, No retractions Cardiovascular Cardiovascular Heart rate NL, Regular rhythm, H eart sounds NL, No gallop, No murmurs, No rubs Abdomen/GI Abdomen/GI Soft, Non-tender, No guarding, No re bound, No distention MS Back Back Inspection NL, Full range of motion, Painl ess range of motion, Non- tender MS Upper Extrem Upper Extremity/MS Inspection NL, Full range of motion, No swelling MS Lower Extrem Lower Ext/Pelvis/MS Inspection NL, Full range o f motion, No swelling Psychiatric Psychiatric Affect NL, Mood NL, Cognitive funct ion NL, Judgment/insight NL, Thought content NL Portions of this section were scribed by Rogelio Ruffin on 07/13/18 at 2359 Interpretation Diagnostics Lab Results Interpretation Results Laboratory Tests 07/13/182347: [Embedded Image Not Available] Laboratory Tests: 07/13 2347 Chemistry Sodium (137 - 145 mmol/L) 136 L Potassium (3.4 - 5.0 mmol/L) 5.5 H Chloride (98 - 107 mmol/L) 100 Carbon Dioxide (22 - 30 mmol/L) 25 BUN (7 - 17 mg/dL) 14 Creatinine (0.5 - 1.0 mg/dL) 0.5 Glomerular Filtr Rate (>60) >=60 max estimate Glucose (74 - 106 mg/dL) 304 H Calcium (8.4 - 10.2 mg/dL) 9.5 Total Bilirubin (0.2 - 1.3 mg/dL) 0.8 Conjugated Bilirubin (0 - 0.3 mg/dL) 0 Unconjugated Bilirubin (0 - 1.1 mg/dL) 0.1 AST (15 - 46 U/L) 62 H ALT (13 - 69 U/L) 27 Total Alk Phosphatase (38 - 126 U/L) 65 Total Protein (6.3 - 8.2 g/dL) 7.4 Albumin (3.5 - 5.0 g/dL) 4.5 Hematology WBC (5.0 - 12.0 x10 3/uL) 8.3 RBC (4.20 - 5.40 x10 6/uL) 4.02 L Hgb (12.0 - 16.0 g/dL) 13.7 Hct (36.0 - 46.0 %) 39.7 MCV (81 - 99 fL) 99 MCH (27 - 31 pg) 34.1 H MCHC (33 - 37 g/dL) 34.5 RDW (11.5 - 15.5 %) 11.5 Plt Count (130 - 400 x10 3/uL) 284 MPV (9.4 - 16.4 fL) 10.6 Neut % (Auto) (43 - 65 %) 42.3 L Lymph % (Auto) (20.5 - 45.5 %) 39.1 [place] % (Auto) (5.5 - 11.7 %) 6.5 Eos % (Auto) (0.9 - 2.9 %) 10.5 H Baso % (Auto) (0.2 - 1.0 %) 1.1 H Neut # (Auto) (2.2 - 4.8 x10 3/uL) 3.51 Lymph # (Auto) (1.3 - 2.9 x10 3/uL) 3.24 H [place] # (Auto) (0.3 - 0.8 x10 3/uL) 0.54 Eos # (Auto) (0.0 - 0.2 x10 3/uL) 0.87 H Baso # (Auto) (0.0 - 0.1 x10 3/uL) 0.09 Immature Gran % (0.0 - 2.0 %) 0.5 Recent Impressions: RADIOLOGY - XR HAND 3 + V RT 07/13 2350 Report Impression - Status: SIGNED Entered: 07/14/2018 0012 Impression: Moderate dorsal soft tissue swelling. No soft ti ssue emphysema or osseous abnormality. Impression By: Valencia Mendoza Lab Imaging Statement Laboratory radiographic studies reviewed and con sidered in the medical decision-making. Point of Care Testing Pulse Oximetry Pulse Ox % 98 On: Room air Interpretation Interpreted by me, Pulse oximetr y normal Time 9 Portions of this section were scribed by Rogelio Ruffin on 07/13/18 at 2359 Re-Evaluation MDM Free Text MDM Notes Free Text MDM Notes Plan discharge, Patient stab le, will discharge home. Discussed imaging findings with patient. Discussed diagnosis and treatment plan. Patient understands and agrees with plan. All questions answered. Discus sed results and plan of care with pt. Stressed need for f/u with PCP 2-3 days . Clear return instructions given. No complaints or conc erns voiced. Follow up with your primary physician. If your symptoms worsen or you have any addition al concerns return to the emergency room. Additional Text HELADIO WRAP TO RIGHT HAND SLING ADVISED TO APPLIED WARM COMPRESS TO HELP WITH IN FLAMMATION ADVISED MOTRIN WELL ED Course Medication(s) Ordered Medication(s) Ordered: Antihistamine Drugs Sig/Dennis Start time Last Medication Dose Route Stop Time Status Admin Promethazine HCl 12.5 MG X1ED STA 07/13 2344 DC 07/13 PO 07/13 2344 2346 Central Nervous System Agents Sig/Dennis Start time Last Medication Dose Route Stop Time Status Admin Hydrocodone Bitart/ 2 TAB X1ED STA 07/13 2335 D C 07/13 Acetaminophen PO 07/13 2336 2346 Portions of this section were scribed by Rogelio Ruffin on 07/13/18 at 2353 Patient Discharge Departure Vital Signs/Condition Vital Signs First Documented: Result Date Time Pulse Ox 98 07/13 2348 B/P 112/78 07/13 2348 B/P Mean 89.2 07/13 2348 Temp 36.6 07/13 2348 Pulse 99 07/13 234 Resp 16 07/13 2348 Last Documented: Result Date Time Pulse Ox 98 07/13 2348 B/P 112/78 07/13 2348 B/P Mean 89.2 07/13 2348 Temp 36.6 02/26 2349 Pulse 99 07/13 2349 Resp 16 07/13 2348 All vital signs available at the time of this en try have been reviewed. Condition Stable Clinical Impression Clinical Impression Primary Impression: Phlebitis Disposition Decision Discharge )( Discharged to Home Yes )( Time 0016 )( Date 07/14/18 Discharge/Care Plan Counseled Regarding Diagnosi s, Lab results, Imaging studies, Prescriptions, Need for follow-up, Smoking cessation, When to return to ED Prescriptions [facility]ACTRIM MOTRIN HAS RX FOR T3 - FILLED 07/12/2018 Discharge Note I have spoken with the patie nt and/or caregivers. I have explained the patient's condition, diagnoses and jeni atment plan based on the information available to me at this time. I have answered the patient's and/ or caregiver's questions and addressed any concerns. The patient and/or careg charmaine have as good an understanding of the patient 's diagnosis, condition and treatment plan as can be expected at this point. The vital signs have bee n stable. The patient's condition is stable and appr opriate for discharge from the emergency department. The patient will pursue further outpatient evalu ation with the primary care physician or other designated or consulting phys ician as outlined in the discharge instructions. The patient and/or caregivers are agreeable to this plan of care and follow-up instructions have been exp lained in detail. The patient and/or caregivers have received these instructio ns in written format and have expressed an understanding of the discharge inst ructions. The patient and/or caregivers are aware that any significant change in condition or worsening of symptoms should prompt an immediate return to [facility] or the closest emergency department or a call to 911. Quality Measures BP F/U for HTN BP in normal range Smoking Cessation Screened, tobacco user Tobacco Screening/Cessation 18 years or older, T obacco user, Declined help Supervising Physician Note Scribe Statement Rogelio Ruffin, 07/13/18 1035 , scribing for and in the presence of [Emma CASILLAS] . Signed By: Roeglio Ruffin, 07/13/185 Provider Scribed Statement I personally performed the s ervices described in this documentation and reviewed the documentation that was dictated to the scrib e(s) in my presence, and it accurately records my words and actions. Ro Pemberton, 07/14/18 Portions of this section were scribed by Rogelio Ruffin on 07/13/18 at 2359 Electronically Signed by Ro Carter 07/14/18 at 0302 RPT #:[id number] END OF REPORT 2018-07-13 [facility] 23:53:00-00:00 [facility] ([facility]) EMERGENCY PROVIDER REPORT REPORT#:[id number] REPORT STATUS: Signed DATE:07/13/18 TIME: 2352 PATIENT: MALLORY GOMEZ UNIT #: [id number] ROOM/BED: AGE: 27 SEX: F PCP PHYS: Eva Sanchez DO SERVICE AUTHOR: Ro Carter SCALE MECHANIC * ALL edits or amendments must be made on the [employer]/computer document * Ro Carter 07/13/182352: HPI-Hand Prob/Inj General Confirmed Patient Yes PCP PCP Dr. Sanchez Presentation Chief Complaint Hand pain R, Hand swelling R Hx Obtained From Patient Onset Occurred Yesterday Symptom Duration Since onset Progression since Onset Gradually worsening Caused by No trauma by history Quality Painful Radiation Does not radiate Severity: Onset Mild Severity: Current Moderate Free Text HPI Notes Free Text HPI Notes 27 y/o F pt w/ a pmhx of DM presents to the ED c /o swelling and pain to the right hand onset yesterday. Pt reports that she was discharged from the hospital yesterday for constipation and noticed t hat her hand was swelling after having an IV removed. Pt states that swelling has gotte n worse. Pt went to an urgent care today where she had an US performed and was told that she had a large amount of fluid in the hand. Pt denies fever, cough, back pain, CP, SOB, n/v/d, or any other concerns and complaints at this pili e. Portions of this section were scribed by Rogelio Ruffin on 07/13/18 at 2359 Review of Systems ROS Statements All systems rev neg except as marked. Focused Review of Systems Constitutional Denies: Chills, Fatigue, Fever, Weakness - gener alized. Musculoskeletal Reports: Extremity pain, Extremity swelling. Den ies: Back pain, Myalgia, Neck pain. Skin Reports: Erythema, Swelling. Denies: Abrasion, A bscess, Burn. Neurologic Denies: Focal weakness, Headache, Seizure, Synco pe. Additional Review of Systems Eyes Denies: Discharge bilat, Redness bilat. Ears/Nose/Throat Denies: Earache bilat, Nasal congestion, Sinus p roblem, Sore throat. Respiratory Denies: Cough, non-productiv e, Cough, productive, Shortness of breath, Wheezing. Cardiovascular Denies: Chest pain, Palpitations, Syncope. GI Denies: Abdominal pain, Constipation, Diarrhea, Nausea, Vomiting. Female Denies: Dysuria, Flank pain, Hematuria, . Portions of this section were scribed by Rogelio Ruffin on 07/13/18 at 2359 Past Medical History - Adult Stated Complaint HAND SWELLING Allergies Coded Allergies: clindamycin (Severe, VOMIT, HIVES, SOB 07/13/18) ondansetron (From ZOFRAN ( HYDROCHLORIDE)) (Mi ld, UNKNOWN 04/05/14) tramadol (Mild, HIVE 07/12/18) Penicillins (SWELLING 07/11/18) Review of Nursing Notes Rev avail, and agree Past Medical History: Reports: Diabetes mellitus. Additional Medical History DM TYPE 1. DKA X 3 Past Surgical History: Reports: Appendectomy, . Additional Surgical History IUD, CURRENTLY MALPOSITIONED IN ENDOCERVICAL CAN AL Alcohol Use Denies EtOH use Drug Use Denies recreational drugs Smoking status for patients 13 years old or olde r: Unknown,if ever smoked Other Social History Local resident Ambulatory Status Independent Portions of this section were scribed by Rogelio Ruffin on 07/13/18 at 2353 Physical Exam Vital Signs Vital Signs First Documented: Result Date Time Pulse Ox 98 07/13 2348 B/P 112/78 07/13 2348 B/P Mean 89.2 07/13 2348 Temp 97.9 07/13 2348 Pulse 99 07/13 2348 Resp 07/13 Last Documented: Result Date Time Pulse Ox 98 07/13 2348 B/P 112/78 07/13 2348 B/P Mean 89.2 07/13 2348 Temp 97.9 07/13 2348 Pulse 99 07/13 2348 Resp 07/13 Review of Vital Signs Reviewed Focused PE General/Const General/Const Awake, Alert, No acute di stress, Well appearing, Well developed , Well hydrated, Well nourished, Cooperative, No t toxic appearing MS Wrist/Hand Right Hand Swelling present (mild, dorsl aspect), Erythema present (moderate ). Skin Skin No rash, Dry, Intact Text/Dict Notes See MS Wrist/Hand Neurologic Neurologic Oriented X3, Speech NL, Gait NL Additional PE MS Head Head Atraumatic, Normocephalic Eyes Eyes No periorbital redness, No periorbital swe lling, Eyelids NL Ears/Nose/Throat Ears/Nose/Throat Airway patent, Nose exam NL, N o facial swelling MS Neck Neck Supple, No meningismus, Full range of miky on, No swelling, Non-tender Resp/Chest Respiratory/Chest Breath sounds NL, Breath soun ds = bilat, No respiratory distress, No rales, No rhonchi, No wheezing, No retractions Cardiovascular Cardiovascular Heart rate NL, Regular rhythm, H eart sounds NL, No gallop, No murmurs, No rubs Abdomen/GI Abdomen/GI Soft, Non-tender, No guarding, No re bound, No distention MS Back Back Inspection NL, Full range of motion, Painl ess range of motion, Non- tender MS Upper Extrem Upper Extremity/MS Inspection NL, Full range of motion, No swelling MS Lower Extrem Lower Ext/Pelvis/MS Inspection NL, Full range o f motion, No swelling Psychiatric Psychiatric Affect NL, Mood NL, Cognitive funct ion NL, Judgment/insight NL, Thought content NL Portions of this section were scribed by Rgoelio Ruffin on 07/13/18 at 2359 Interpretation Diagnostics Lab Results Interpretation Results Laboratory Tests 07/13/182347: [Embedded Image Not Available] Laboratory Tests: 07/13 2347 Chemistry Sodium (137 - 145 mmol/L) 136 L Potassium (3.4 - 5.0 mmol/L) 5.5 H Chloride (98 - 107 mmol/L) 100 Carbon Dioxide (22 - 30 mmol/L) 25 BUN (7 - 17 mg/dL) 14 Creatinine (0.5 - 1.0 mg/dL) 0.5 Glomerular Filtr Rate (>60) >=60 max estimate Glucose (74 - 106 mg/dL) 304 H Calcium (8.4 - 10.2 mg/dL) 9.5 Total Bilirubin (0.2 - 1.3 mg/dL) 0.8 Conjugated Bilirubin (0 - 0.3 mg/dL) 0 Unconjugated Bilirubin (0 - 1.1 mg/dL) 0.1 AST (15 - 46 U/L) 62 H ALT (13 - 69 U/L) 27 Total Alk Phosphatase (38 - 126 U/L) 65 Total Protein (6.3 - 8.2 g/dL) 7.4 Albumin (3.5 - 5.0 g/dL) 4.5 Hematology WBC (5.0 - 12.0 x10 3/uL) 8.3 RBC (4.20 - 5.40 x10 6/uL) 4.02 L Hgb (12.0 - 16.0 g/dL) 13.7 Hct (36.0 - 46.0 %) 39.7 MCV (81 - 99 fL) 99 MCH (27 - 31 pg) 34.1 H MCHC (33 - 37 g/dL) 34.5 RDW (11.5 - 15.5 %) 11.5 Plt Count (130 - 400 x10 3/uL) 284 MPV (9.4 - 16.4 fL) 10.6 Neut % (Auto) (43 - 65 %) 42.3 L Lymph % (Auto) (20.5 - 45.5 %) 39.1 [place] % (Auto) (5.5 - 11.7 %) 6.5 Eos % (Auto) (0.9 - 2.9 %) 10.5 H Baso % (Auto) (0.2 - 1.0 %) 1.1 H Neut # (Auto) (2.2 - 4.8 x10 3/uL) 3.51 Lymph # (Auto) (1.3 - 2.9 x10 3/uL) 3.24 H [place] # (Auto) (0.3 - 0.8 x10 3/uL) 0.54 Eos # (Auto) (0.0 - 0.2 x10 3/uL) 0.87 H Baso # (Auto) (0.0 - 0.1 x10 3/uL) 0.09 Immature Gran % (0.0 - 2.0 %) 0.5 Recent Impressions: RADIOLOGY - XR HAND 3 + V RT 07/13 3705 Report Impression - Status: SIGNED Entered: 07/14/2018 0012 Impression: Moderate dorsal soft tissue swelling. No soft ti ssue emphysema or osseous abnormality. Impression By: Valencia Mendoza Lab Imaging Statement Laboratory radiographic studies reviewed and con sidered in the medical decision-making. Point of Care Testing Pulse Oximetry Pulse Ox % 98 On: Room air Interpretation Interpreted by me, Pulse oximetr y normal Time 2349 Portions of this section were scribed by Rogelio Ruffin on 07/13/18 at 2359 Re-Evaluation MDM Free Text MDM Notes Free Text MDM Notes Plan discharge, Patient stab le, will discharge home. Discussed imaging findings with patient. Discussed diagnosis and treatment plan. Patient understands and agrees with plan. All questions answered. Discus sed results and plan of care with pt. Stressed need for f/u with PCP 2-3 days . Clear return instructions given. No complaints or conc erns voiced. Follow up with your primary physician. If your symptoms worsen or you have any addition al concerns return to the emergency room. Additional Text HELADIO WRAP TO RIGHT HAND SLING ADVISED TO APPLIED WARM COMPRESS TO HELP WITH IN FLAMMATION ADVISED MOTRIN WELL ED Course Medication(s) Ordered Medication(s) Ordered: Antihistamine Drugs Sig/Dennis Start time Last Medication Dose Route Stop Time Status Admin Promethazine HCl 12.5 MG X1ED STA 07/13 2344 DC 07/13 PO 07/13 2344 2346 Central Nervous System Agents Sig/Dennis Start time Last Medication Dose Route Stop Time Status Admin Hydrocodone Bitart/ 2 TAB X1ED STA 07/13 2335 D C 07/13 Acetaminophen PO 07/136 2346 Portions of this section were scribed by Rogelio Ruffin on 07/13/18 at 2353 Patient Discharge Departure Vital Signs/Condition Vital Signs First Documented: Result Date Time Pulse Ox 98 07/13 2348 B/P 112/78 07/13 2348 B/P Mean 89.2 07/13 2348 Temp 97.9 07/13 2348 Pulse 99 07/13 2349 Resp 16 07/13 2348 Last Documented: Result Date Time Pulse Ox 98 07/13 234 B/P 112/78 07/13 2348 B/P Mean 89.2 07/139 Temp 97.9 07/13 2348 Pulse 99 07/13 2348 Resp 16 07/13 2348 All vital signs available at the time of this en try have been reviewed. Condition Stable Clinical Impression Clinical Impression Primary Impression: Phlebitis Disposition Decision Discharge )( Discharged to Home Yes )( Time 0016 )( Date 07/14/18 Discharge/Care Plan Counseled Regarding Diagnosi s, Lab results, Imaging studies, Prescriptions, Need for follow-up, Smoking cessation, When to return to ED Prescriptions BACTRIM MOTRIN HAS RX FOR T3 - FILLED 07/12/2018 Discharge Note I have spoken with the patie nt and/or caregivers. I have explained the patient's condition, diagnoses and jeni atment plan based on the information available to me at this time. I have answered the patient's and/ or caregiver's questions and addressed any concerns. The patient and/or careg charmaine have as good an understanding of the patient 's diagnosis, condition and treatment plan as can be expected at this point. The vital signs have bee n stable. The patient's condition is stable and appr opriate for discharge from the emergency department. The patient will pursue further outpatient evalu ation with the primary care physician or other designated or consulting phys ician as outlined in the discharge instructions. The patient and/or caregivers are agreeable to this plan of care and follow-up instructions have been exp lained in detail. The patient and/or caregivers have received these instructio ns in written format and have expressed an understanding of the discharge inst ructions. The patient and/or caregivers are aware that any significant change in condition or worsening of symptoms should prompt an immediate return to [facility] or the closest emergency department or a call to 911. Quality Measures BP F/U for HTN BP in normal range Smoking Cessation Screened, tobacco user Tobacco Screening/Cessation 18 years or older, T obacco user, Declined help Supervising Physician Note Scribe Statement Rogelio Ruffin, 07/13/18 2990 , scribing for and in the presence of [Emma CASILLAS] . Signed By: Rogelio Ruffin, 07/13/18 2917 Provider Scribed Statement I personally performed the s ervices described in this documentation and reviewed the documentation that was dictated to the scrib e(s) in my presence, and it accurately records my words and actions. Ro Pemberton, 07/14/18 Portions of this section were scribed by Rogelio Ruffin on 07/13/18 at 2359 Jo Ann Gongora 07/21/18 0248: HPI-Hand Prob/Inj General Initial Greet Date/Time 07/13/18 4349 Past Medical History - Adult Home Medications Active Scripts INSULIN LISPRO (HumaLOG) 5 UNITS SUBQ AC SENNOSIDES/DOCUSATE SOD (ARMANDO-COLACE 8.6/50 MG) 1 TAB PO BID SENNOSIDES/DOCUSATE SOD (ARMANDO-COLACE 8.6/50 MG) 1 TAB PO BID #60 TAB Prov: 07/12/18 POLYETHYLENE GLYCOL 3350 (MIRALAX) 17 GM PO BEDT BETHANY POLYETHYLENE GLYCOL 3350 (MIRALAX) 17 GM PO BED TIME #30 PACKET Prov: 07/12/18 CEFUROXIME AXETIL (CEFTIN) 500 MG PO BID CEFUROXIME AXETIL (CEFTIN) 500 MG PO BID #14 TA BS Prov: 07/12/18 ACETAMINOPHEN/CODEINE (TYLENOL WITH CODE INE #3 300/30 MG) 1 TAB PO Q6H PRN PRN ABDOMINAL CRAMPS/PAIN ACETAMINOPHEN/CODEINE (TYLENOL WITH CODEINE #3 300/30 MG) 1 TAB PO Q6H PRN PRN ABDOMINAL CRAMPS/PAIN #20 TABS Prov: 07/12/18 ALBUTEROL (PROAIR HFA 90 MCG/ACT) 2 PUFF INH RTQ 6H PRN PRN COUGH/CONGESTION ALBUTEROL (PROAIR HFA 90 MCG/ACT) 2 PUFF INH RT Q6H PRN PRN COUGH/CONGESTION #1 INHALER Prov: 07/12/18 Reported Medications INSULIN DETEMIR (LEVEMIR) 25 UNIT SQ BID Physical Exam Vital Signs Vital Signs Interpretation Diagnostics Lab Results Interpretation Results Patient Discharge Departure Vital Signs/Condition Vital Signs Supervising Physician Note MidLv Saw Pt Alone I was available for consultation as needed at a ll times during the patient's visit in the emergency department. Authenticated by Jo Ann Gongora MD on 0 07/14/18 at 0016 Electronically Signed by Ro Carter 07/14/18 at 0302 RPT #:[id number] END OF REPORT 2018-07-13 [facility] 23:53:00-00:00 [facility] ([facility]) EMERGENCY PROVIDER REPORT REPORT#:[id number] REPORT STATUS: Signed DATE:07/13/18 TIME: 2352 PATIENT: MALLORY GOMEZ UNIT #: [id number] ROOM/BED: AGE: 27 SEX: F PCP PHYS: Eva Sanchez DO SERVICE AUTHOR: Ro Carter SCALE MECHANIC * ALL edits or amendments must be made on the [employer]/computer document * Ro Carter. 07/13/182352: HPI-Hand Prob/Inj General Confirmed Patient Yes PCP PCP Dr. Sanchez Presentation Chief Complaint Hand pain R, Hand swelling R Hx Obtained From Patient Onset Occurred Yesterday Symptom Duration Since onset Progression since Onset Gradually worsening Caused by No trauma by history Quality Painful Radiation Does not radiate Severity: Onset Mild Severity: Current Moderate Free Text HPI Notes Free Text HPI Notes 27 y/o F pt w/ a pmhx of DM presents to the ED c /o swelling and pain to the right hand onset yesterday. Pt reports that she was discharged from the hospital yesterday for constipation and noticed t hat her hand was swelling after having an IV removed. Pt states that swelling has gotte n worse. Pt went to an urgent care today where she had an US performed and was told that she had a large amount of fluid in the hand. Pt denies fever, cough, back pain, CP, SOB, n/v/d, or any other concerns and complaints at this pili e. Portions of this section were scribed by Rogelio Ruffin on 07/13/18 at 2359 Review of Systems ROS Statements All systems rev neg except as marked. Focused Review of Systems Constitutional Denies: Chills, Fatigue, Fever, Weakness - gener alized. Musculoskeletal Reports: Extremity pain, Extremity swelling. Den ies: Back pain, Myalgia, Neck pain. Skin Reports: Erythema, Swelling. Denies: Abrasion, A bscess, Burn. Neurologic Denies: Focal weakness, Headache, Seizure, Synco pe. Additional Review of Systems Eyes Denies: Discharge bilat, Redness bilat. Ears/Nose/Throat Denies: Earache bilat, Nasal congestion, Sinus p roblem, Sore throat. Respiratory Denies: Cough, non-productiv e, Cough, productive, Shortness of breath, Wheezing. Cardiovascular Denies: Chest pain, Palpitations, Syncope. GI Denies: Abdominal pain, Constipation, Diarrhea, Nausea, Vomiting. Female Denies: Dysuria, Flank pain, Hematuria, . Portions of this section were scribed by Rogelio Ruffin on 07/13/18 at 2359 Past Medical History - Adult Stated Complaint HAND SWELLING Allergies Coded Allergies: clindamycin (Severe, VOMIT, HIVES, SOB 07/13/18) ondansetron (From ZOFRAN ( HYDROCHLORIDE)) (Mi ld, UNKNOWN 04/05/14) tramadol (Mild, HIVE 07/12/18) Penicillins (SWELLING 07/11/18) Review of Nursing Notes Rev avail, and agree Past Medical History: Reports: Diabetes mellitus. Additional Medical History DM TYPE 1. DKA X 3 Past Surgical History: Reports: Appendectomy, . Additional Surgical History IUD, CURRENTLY MALPOSITIONED IN ENDOCERVICAL CAN AL Alcohol Use Denies EtOH use Drug Use Denies recreational drugs Smoking status for patients 13 years old or olde r: Unknown,if ever smoked Other Social History Local resident Ambulatory Status Independent Portions of this section were scribed by Rogelio Ruffin on 07/13/18 at 2353 Physical Exam Vital Signs Vital Signs First Documented: Result Date Time Pulse Ox 98 07/13 234 B/P 112/78 07/13 2348 B/P Mean 89.2 07/13 2348 Temp 97.9 07/13 2348 Pulse 99 07/13 2348 Resp 16 07/13 2348 Last Documented: Result Date Time Pulse Ox 98 07/139 B/P 112/78 07/13 2348 B/P Mean 89.2 07/13 2348 Temp 97.9 07/13 2348 Pulse 99 07/139 Resp 16 07/13 2348 Review of Vital Signs Reviewed Focused PE General/Const General/Const Awake, Alert, No acute di stress, Well appearing, Well developed , Well hydrated, Well nourished, Cooperative, No t toxic appearing MS Wrist/Hand Right Hand Swelling present (mild, dorsl aspect), Erythema present (moderate ). Skin Skin No rash, Dry, Intact Text/Dict Notes See MS Wrist/Hand Neurologic Neurologic Oriented X3, Speech NL, Gait NL Additional PE MS Head Head Atraumatic, Normocephalic Eyes Eyes No periorbital redness, No periorbital swe lling, Eyelids NL Ears/Nose/Throat Ears/Nose/Throat Airway patent, Nose exam NL, N o facial swelling MS Neck Neck Supple, No meningismus, Full range of miky on, No swelling, Non-tender Resp/Chest Respiratory/Chest Breath sounds NL, Breath soun ds = bilat, No respiratory distress, No rales, No rhonchi, No wheezing, No retractions Cardiovascular Cardiovascular Heart rate NL, Regular rhythm, H eart sounds NL, No gallop, No murmurs, No rubs Abdomen/GI Abdomen/GI Soft, Non-tender, No guarding, No re bound, No distention MS Back Back Inspection NL, Full range of motion, Painl ess range of motion, Non- tender MS Upper Extrem Upper Extremity/MS Inspection NL, Full range of motion, No swelling MS Lower Extrem Lower Ext/Pelvis/MS Inspection NL, Full range o f motion, No swelling Psychiatric Psychiatric Affect NL, Mood NL, Cognitive funct ion NL, Judgment/insight NL, Thought content NL Portions of this section were scribed by Rogelio Ruffin on 07/13/18 at 2359 Interpretation Diagnostics Lab Results Interpretation Results Laboratory Tests 07/13/182347: [Embedded Image Not Available] Laboratory Tests: 07/13 2347 Chemistry Sodium (137 - 145 mmol/L) 136 L Potassium (3.4 - 5.0 mmol/L) 5.5 H Chloride (98 - 107 mmol/L) 100 Carbon Dioxide (22 - 30 mmol/L) 25 BUN (7 - 17 mg/dL) 14 Creatinine (0.5 - 1.0 mg/dL) 0.5 Glomerular Filtr Rate (>60) >=60 max estimate Glucose (74 - 106 mg/dL) 304 H Calcium (8.4 - 10.2 mg/dL) 9.5 Total Bilirubin (0.2 - 1.3 mg/dL) 0.8 Conjugated Bilirubin (0 - 0.3 mg/dL) 0 Unconjugated Bilirubin (0 - 1.1 mg/dL) 0.1 AST (15 - 46 U/L) 62 H ALT (13 - 69 U/L) 27 Total Alk Phosphatase (38 - 126 U/L) 65 Total Protein (6.3 - 8.2 g/dL) 7.4 Albumin (3.5 - 5.0 g/dL) 4.5 Hematology WBC (5.0 - 12.0 x10 3/uL) 8.3 RBC (4.20 - 5.40 x10 6/uL) 4.02 L Hgb (12.0 - 16.0 g/dL) 13.7 Hct (36.0 - 46.0 %) 39.7 MCV (81 - 99 fL) 99 MCH (27 - 31 pg) 34.1 H MCHC (33 - 37 g/dL) 34.5 RDW (11.5 - 15.5 %) 11.5 Plt Count (130 - 400 x10 3/uL) 284 MPV (9.4 - 16.4 fL) 10.6 Neut % (Auto) (43 - 65 %) 42.3 L Lymph % (Auto) (20.5 - 45.5 %) 39.1 [place] % (Auto) (5.5 - 11.7 %) 6.5 Eos % (Auto) (0.9 - 2.9 %) 10.5 H Baso % (Auto) (0.2 - 1.0 %) 1.1 H Neut # (Auto) (2.2 - 4.8 x10 3/uL) 3.51 Lymph # (Auto) (1.3 - 2.9 x10 3/uL) 3.24 H [place] # (Auto) (0.3 - 0.8 x10 3/uL) 0.54 Eos # (Auto) (0.0 - 0.2 x10 3/uL) 0.87 H Baso # (Auto) (0.0 - 0.1 x10 3/uL) 0.09 Immature Gran % (0.0 - 2.0 %) 0.5 Recent Impressions: RADIOLOGY - XR HAND 3 + V RT 07/13 8800 Report Impression - Status: SIGNED Entered: 07/14/2018 0012 Impression: Moderate dorsal soft tissue swelling. No soft ti ssue emphysema or osseous abnormality. Impression By: Valencia Mendoza Lab Imaging Statement Laboratory radiographic studies reviewed and con sidered in the medical decision-making. Point of Care Testing Pulse Oximetry Pulse Ox % 98 On: Room air Interpretation Interpreted by , Pulse oximetr y normal Time 2348 Portions of this section were scribed by Rogelio Ruffin on 07/13/18 at 2359 Re-Evaluation MDM Free Text MDM Notes Free Text MDM Notes Plan discharge, Patient stab le, will discharge home. Discussed imaging findings with patient. Discussed diagnosis and treatment plan. Patient understands and agrees with plan. All questions answered. Discus sed results and plan of care with pt. Stressed need for f/u with PCP 2-3 days . Clear return instructions given. No complaints or conc erns voiced. Follow up with your primary physician. If your symptoms worsen or you have any addition al concerns return to the emergency room. Additional Text HELADIO WRAP TO RIGHT HAND SLING ADVISED TO APPLIED WARM COMPRESS TO HELP WITH IN FLAMMATION ADVISED MOTRIN WELL ED Course Medication(s) Ordered Medication(s) Ordered: Antihistamine Drugs Sig/Dennis Start time Last Medication Dose Route Stop Time Status Admin Promethazine HCl 12.5 MG X1ED STA 07/13 2344 DC 07/13 PO 07/13 2344 2346 Central Nervous System Agents Sig/Dennis Start time Last Medication Dose Route Stop Time Status Admin Hydrocodone Bitart/ 2 TAB X1ED STA 07/13 2335 D C 07/13 Acetaminophen PO 07/136 2346 Portions of this section were scribed by Rogelio Ruffin on 07/13/18 at 2353 Patient Discharge Departure Vital Signs/Condition Vital Signs First Documented: Result Date Time Pulse Ox 98 07/13 2349 B/P 112/78 07/13 234 B/P Mean 89.2 07/13 2348 Temp 97.9 07/13 2348 Pulse 99 07/13 2349 Resp 16 07/13 2348 Last Documented: Result Date Time Pulse Ox 98 07/13 2349 B/P 112/78 07/13 234 B/P Mean 89.2 07/13 2348 Temp 97.9 07/13 234 Pulse 99 07/13 234 Resp 07/13 All vital signs available at the time of this en try have been reviewed. Condition Stable Clinical Impression Clinical Impression Primary Impression: Phlebitis Disposition Decision Discharge )( Discharged to Home Yes )( Time 0016 )( Date 07/14/18 Discharge/Care Plan Counseled Regarding Diagnosi s, Lab results, Imaging studies, Prescriptions, Need for follow-up, Smoking cessation, When to return to ED Prescriptions PATRICIA CHAN HAS RX FOR T3 - FILLED 07/12/2018 Discharge Note I have spoken with the patie nt and/or caregivers. I have explained the patient's condition, diagnoses and jeni atment plan based on the information available to me at this time. I have answered the patient's and/ or caregiver's questions and addressed any concerns. The patient and/or careg charmaine have as good an understanding of the patient 's diagnosis, condition and treatment plan as can be expected at this point. The vital signs have bee n stable. The patient's condition is stable and appr opriate for discharge from the emergency department. The patient will pursue further outpatient evalu ation with the primary care physician or other designated or consulting phys ician as outlined in the discharge instructions. The patient and/or caregivers are agreeable to this plan of care and follow-up instructions have been exp lained in detail. The patient and/or caregivers have received these instructio ns in written format and have expressed an understanding of the discharge inst ructions. The patient and/or caregivers are aware that any significant change in condition or worsening of symptoms should prompt an immediate return to [facility] or the closest emergency department or a call to 911. Quality Measures BP F/U for HTN BP in normal range Smoking Cessation Screened, tobacco user Tobacco Screening/Cessation 18 years or older, T obacco user, Declined help Supervising Physician Note Scribe Statement Rogelio Ruffin, 07/13/18 9321 , scribing for and in the presence of [Emma SCALE MECHANIC] . Signed By: Rogelio Ruffin, 07/13/18 6296 Provider Scribed Statement I personally performed the s ervices described in this documentation and reviewed the documentation that was dictated to the scrib e(s) in my presence, and it accurately records my words and actions. Ro Pemberton, 07/14/18 Portions of this section were scribed by Rogelio Ruffin on 07/13/18 at 5897 Jo Ann Gongora 07/21/18 0248: HPI-Hand Prob/Inj General Initial Greet Date/Time 07/13/18 8465 Past Medical History - Adult Home Medications Active Scripts INSULIN LISPRO (HumaLOG) 5 UNITS SUBQ AC SENNOSIDES/DOCUSATE SOD (ARMANDO-COLACE 8.6/50 MG) 1 TAB PO BID SENNOSIDES/DOCUSATE SOD (ARMANDO-COLACE 8.6/50 MG) 1 TAB PO BID #60 TAB Prov: 07/12/18 POLYETHYLENE GLYCOL 3350 (MIRALAX) 17 GM PO BEDT BETHANY POLYETHYLENE GLYCOL 3350 (MIRALAX) 17 GM PO BED TIME #30 PACKET Prov: 07/12/18 CEFUROXIME AXETIL (CEFTIN) 500 MG PO BID CEFUROXIME AXETIL (CEFTIN) 500 MG PO BID #14 TA BS Prov: 07/12/18 ACETAMINOPHEN/CODEINE (TYLENOL WITH CODE INE #3 300/30 MG) 1 TAB PO Q6H PRN PRN ABDOMINAL CRAMPS/PAIN ACETAMINOPHEN/CODEINE (TYLENOL WITH CODEINE #3 300/30 MG) 1 TAB PO Q6H PRN PRN ABDOMINAL CRAMPS/PAIN #20 TABS Prov: 07/12/18 ALBUTEROL (PROAIR HFA 90 MCG/ACT) 2 PUFF INH RTQ 6H PRN PRN COUGH/CONGESTION ALBUTEROL (PROAIR HFA 90 MCG/ACT) 2 PUFF INH RT Q6H PRN PRN COUGH/CONGESTION #1 INHALER Prov: 07/12/18 Reported Medications INSULIN DETEMIR (LEVEMIR) 25 UNIT SQ BID Physical Exam Vital Signs Vital Signs Interpretation Diagnostics Lab Results Interpretation Results Patient Discharge Departure Vital Signs/Condition Vital Signs Supervising Physician Note MidLv Saw Pt Alone I was available for consultation as needed at a ll times during the patient's visit in the emergency department. Authenticated by Jo Ann Gongora MD on 0 07/14/18 at 0016 Electronically Signed by Ro Carter n 07/14/18 at 0302 RPT #:[id number] END OF REPORT 2018-07-13 [facility] 23:53:00-00:00 [facility] ([facility]) EMERGENCY PROVIDER REPORT REPORT#:[id number] REPORT STATUS: Signed DATE:07/13/18 TIME: 2352 PATIENT: MALLORY GOMEZ UNIT #: [id number] ROOM/BED: AGE: 27 SEX: F PCP PHYS: Eva Sanchez DO SERVICE AUTHOR: Ro Carter SCALE MECHANIC * ALL edits or amendments must be made on the el [employer]/computer document * Ro Carter. 07/13/18 9973: HPI-Hand Prob/Inj General Confirmed Patient Yes PCP PCP Dr. Sanchez Presentation Chief Complaint Hand pain R, Hand swelling R Hx Obtained From Patient Onset Occurred Yesterday Symptom Duration Since onset Progression since Onset Gradually worsening Caused by No trauma by history Quality Painful Radiation Does not radiate Severity: Onset Mild Severity: Current Moderate Free Text HPI Notes Free Text HPI Notes 27 y/o F pt w/ a pmhx of DM presents to the ED c /o swelling and pain to the right hand onset yesterday. Pt reports that she was discharged from the hospital yesterday for constipation and noticed t hat her hand was swelling after having an IV removed. Pt states that swelling has gotte n worse. Pt went to an urgent care today where she had an US performed and was told that she had a large amount of fluid in the hand. Pt denies fever, cough, back pain, CP, SOB, n/v/d, or any other concerns and complaints at this pili e. Portions of this section were scribed by Rogelio Ruffin on 07/13/18 at 2359 Review of Systems ROS Statements All systems rev neg except as marked. Focused Review of Systems Constitutional Denies: Chills, Fatigue, Fever, Weakness - gener alized. Musculoskeletal Reports: Extremity pain, Extremity swelling. Den ies: Back pain, Myalgia, Neck pain. Skin Reports: Erythema, Swelling. Denies: Abrasion, A bscess, Burn. Neurologic Denies: Focal weakness, Headache, Seizure, Synco pe. Additional Review of Systems Eyes Denies: Discharge bilat, Redness bilat. Ears/Nose/Throat Denies: Earache bilat, Nasal congestion, Sinus p roblem, Sore throat. Respiratory Denies: Cough, non-productiv e, Cough, productive, Shortness of breath, Wheezing. Cardiovascular Denies: Chest pain, Palpitations, Syncope. GI Denies: Abdominal pain, Constipation, Diarrhea, Nausea, Vomiting. Female Denies: Dysuria, Flank pain, Hematuria, . Portions of this section were scribed by Rogelio Ruffin on 07/13/18 at 2359 Past Medical History - Adult Stated Complaint HAND SWELLING Allergies Coded Allergies: clindamycin (Severe, VOMIT, HIVES, SOB 07/13/18) ondansetron (From ZOFRAN ( HYDROCHLORIDE)) (Mi ld, UNKNOWN 04/05/14) tramadol (Mild, HIVE 07/12/18) Penicillins (SWELLING 07/11/18) Review of Nursing Notes Rev avail, and agree Past Medical History: Reports: Diabetes mellitus. Additional Medical History DM TYPE 1. DKA X 3 Past Surgical History: Reports: Appendectomy, . Additional Surgical History IUD, CURRENTLY MALPOSITIONED IN ENDOCERVICAL CAN AL Alcohol Use Denies EtOH use Drug Use Denies recreational drugs Smoking status for patients 13 years old or olde r: Unknown,if ever smoked Other Social History Local resident Ambulatory Status Independent Portions of this section were scribed by Rogelio Ruffin on 07/13/18 at 2353 Physical Exam Vital Signs Vital Signs First Documented: Result Date Time Pulse Ox 98 07/13 2349 B/P 112/78 07/13 2349 B/P Mean 89.2 07/13 2349 Temp 97.9 07/13 2349 Pulse 99 07/13 2349 Resp 16 07/13 2349 Last Documented: Result Date Time Pulse Ox 98 07/13 2349 B/P 112/78 07/13 234 B/P Mean 89.2 07/13 2349 Temp 97.9 07/13 234 Pulse 99 07/13 2349 Resp 16 07/13 2349 Review of Vital Signs Reviewed Focused PE General/Const General/Const Awake, Alert, No acute di stress, Well appearing, Well developed , Well hydrated, Well nourished, Cooperative, No t toxic appearing MS Wrist/Hand Right Hand Swelling present (mild, dorsl aspect), Erythema present (moderate ). Skin Skin No rash, Dry, Intact Text/Dict Notes See MS Wrist/Hand Neurologic Neurologic Oriented X3, Speech NL, Gait NL Additional PE MS Head Head Atraumatic, Normocephalic Eyes Eyes No periorbital redness, No periorbital swe lling, Eyelids NL Ears/Nose/Throat Ears/Nose/Throat Airway patent, Nose exam NL, N o facial swelling MS Neck Neck Supple, No meningismus, Full range of miky on, No swelling, Non-tender Resp/Chest Respiratory/Chest Breath sounds NL, Breath soun ds = bilat, No respiratory distress, No rales, No rhonchi, No wheezing, No retractions Cardiovascular Cardiovascular Heart rate NL, Regular rhythm, H eart sounds NL, No gallop, No murmurs, No rubs Abdomen/GI Abdomen/GI Soft, Non-tender, No guarding, No re bound, No distention MS Back Back Inspection NL, Full range of motion, Painl ess range of motion, Non- tender MS Upper Extrem Upper Extremity/MS Inspection NL, Full range of motion, No swelling MS Lower Extrem Lower Ext/Pelvis/MS Inspection NL, Full range o f motion, No swelling Psychiatric Psychiatric Affect NL, Mood NL, Cognitive funct ion NL, Judgment/insight NL, Thought content NL Portions of this section were scribed by Rogelio Ruffin on 07/13/18 at 2359 Interpretation Diagnostics Lab Results Interpretation Results Laboratory Tests 07/13/18 2348: [Embedded Image Not Available] Laboratory Tests: 07/13 2347 Chemistry Sodium (137 - 145 mmol/L) 136 L Potassium (3.4 - 5.0 mmol/L) 5.5 H Chloride (98 - 107 mmol/L) 100 Carbon Dioxide (22 - 30 mmol/L) 25 BUN (7 - 17 mg/dL) 14 Creatinine (0.5 - 1.0 mg/dL) 0.5 Glomerular Filtr Rate (>60) >=60 max estimate Glucose (74 - 106 mg/dL) 304 H Calcium (8.4 - 10.2 mg/dL) 9.5 Total Bilirubin (0.2 - 1.3 mg/dL) 0.8 Conjugated Bilirubin (0 - 0.3 mg/dL) 0 Unconjugated Bilirubin (0 - 1.1 mg/dL) 0.1 AST (15 - 46 U/L) 62 H ALT (13 - 69 U/L) 27 Total Alk Phosphatase (38 - 126 U/L) 65 Total Protein (6.3 - 8.2 g/dL) 7.4 Albumin (3.5 - 5.0 g/dL) 4.5 Hematology WBC (5.0 - 12.0 x10 3/uL) 8.3 RBC (4.20 - 5.40 x10 6/uL) 4.02 L Hgb (12.0 - 16.0 g/dL) 13.7 Hct (36.0 - 46.0 %) 39.7 MCV (81 - 99 fL) 99 MCH (27 - 31 pg) 34.1 H MCHC (33 - 37 g/dL) 34.5 RDW (11.5 - 15.5 %) 11.5 Plt Count (130 - 400 x10 3/uL) 284 MPV (9.4 - 16.4 fL) 10.6 Neut % (Auto) (43 - 65 %) 42.3 L Lymph % (Auto) (20.5 - 45.5 %) 39.1 [place] % (Auto) (5.5 - 11.7 %) 6.5 Eos % (Auto) (0.9 - 2.9 %) 10.5 H Baso % (Auto) (0.2 - 1.0 %) 1.1 H Neut # (Auto) (2.2 - 4.8 x10 3/uL) 3.51 Lymph # (Auto) (1.3 - 2.9 x10 3/uL) 3.24 H [place] # (Auto) (0.3 - 0.8 x10 3/uL) 0.54 Eos # (Auto) (0.0 - 0.2 x10 3/uL) 0.87 H Baso # (Auto) (0.0 - 0.1 x10 3/uL) 0.09 Immature Gran % (0.0 - 2.0 %) 0.5 Recent Impressions: RADIOLOGY - XR HAND 3 + V RT 07/130 Report Impression - Status: SIGNED Entered: 07/14/2018 0012 Impression: Moderate dorsal soft tissue swelling. No soft ti ssue emphysema or osseous abnormality. Impression By: Valencia Mendoza Lab Imaging Statement Laboratory radiographic studies reviewed and con sidered in the medical decision-making. Point of Care Testing Pulse Oximetry Pulse Ox % 98 On: Room air Interpretation Interpreted by me, Pulse oximetr y normal Time 2349 Portions of this section were scribed by Rogelio Ruffin on 07/13/18 at 2359 Re-Evaluation MDM Free Text MDM Notes Free Text MDM Notes Plan discharge, Patient stab le, will discharge home. Discussed imaging findings with patient. Discussed diagnosis and treatment plan. Patient understands and agrees with plan. All questions answered. Discus sed results and plan of care with pt. Stressed need for f/u with PCP 2-3 days . Clear return instructions given. No complaints or conc erns voiced. Follow up with your primary physician. If your symptoms worsen or you have any addition al concerns return to the emergency room. Additional Text HELADIO WRAP TO RIGHT HAND SLING ADVISED TO APPLIED WARM COMPRESS TO HELP WITH IN FLAMMATION ADVISED MOTRIN WELL ED Course Medication(s) Ordered Medication(s) Ordered: Antihistamine Drugs Sig/Dennis Start time Last Medication Dose Route Stop Time Status Admin Promethazine HCl 12.5 MG X1ED STA 07/13 2344 DC 07/13 PO 07/13 2344 234 Central Nervous System Agents Sig/Dennis Start time Last Medication Dose Route Stop Time Status Admin Hydrocodone Bitart/ 2 TAB X1ED STA 07/13 2335 D C 07/13 Acetaminophen PO 07/13 2335 2346 Portions of this section were scribed by Rogelio Ruffin on 07/13/18 at 2353 Patient Discharge Departure Vital Signs/Condition Vital Signs First Documented: Result Date Time Pulse Ox 98 07/13 2349 B/P 112/78 07/13 2349 B/P Mean 89.2 07/13 2349 Temp 97.9 07/13 2349 Pulse 99 07/13 2349 Resp 16 07/13 2348 Last Documented: Result Date Time Pulse Ox 98 07/13 2349 B/P 112/78 07/13 2349 B/P Mean 89.2 07/13 2349 Temp 97.9 07/13 2349 Pulse 99 07/13 2349 Resp 16 07/13 2348 All vital signs available at the time of this en try have been reviewed. Condition Stable Clinical Impression Clinical Impression Primary Impression: Phlebitis Disposition Decision Discharge )( Discharged to Home Yes )( Time 0016 )( Date 07/14/18 Discharge/Care Plan Counseled Regarding Diagnosi s, Lab results, Imaging studies, Prescriptions, Need for follow-up, Smoking cessation, When to return to ED Prescriptions [facility] MOTRIN HAS RX FOR T3 - FILLED 07/12/2018 Discharge Note I have spoken with the patie nt and/or caregivers. I have explained the patient's condition, diagnoses and jeni atment plan based on the information available to me at this time. I have answered the patient's and/ or caregiver's questions and addressed any concerns. The patient and/or careg charmaine have as good an understanding of the patient 's diagnosis, condition and treatment plan as can be expected at this point. The vital signs have bee n stable. The patient's condition is stable and appr opriate for discharge from the emergency department. The patient will pursue further outpatient evalu ation with the primary care physician or other designated or consulting phys ician as outlined in the discharge instructions. The patient and/or caregivers are agreeable to this plan of care and follow-up instructions have been exp lained in detail. The patient and/or caregivers have received these instructio ns in written format and have expressed an understanding of the discharge inst ructions. The patient and/or caregivers are aware that any significant change in condition or worsening of symptoms should prompt an immediate return to [facility] or the closest emergency department or a call to 911. Quality Measures BP F/U for HTN BP in normal range Smoking Cessation Screened, tobacco user Tobacco Screening/Cessation 18 years or older, T obacco user, Declined help Supervising Physician Note Scribe Statement Rogelio Ruffin, 07/13/18 5413 , scribing for and in the presence of [Emma SCALE MECHANIC] . Signed By: Rogelio Ruffin, 07/13/18 3378 Provider Scribed Statement I personally performed the s ervices described in this documentation and reviewed the documentation that was dictated to the scrib e(s) in my presence, and it accurately records my words and actions. Ro Pemberton, 07/14/18 Portions of this section were scribed by Rogelio Ruffin on 07/13/18 at 5048 Jo Ann Gongora 07/21/18 0248: HPI-Hand Prob/Inj General Initial Greet Date/Time 07/13/18 5782 Past Medical History - Adult Home Medications Active Scripts INSULIN LISPRO (HumaLOG) 5 UNITS SUBQ AC SENNOSIDES/DOCUSATE SOD (ARMANDO-COLACE 8.6/50 MG) 1 TAB PO BID SENNOSIDES/DOCUSATE SOD (ARMANDO-COLACE 8.6/50 MG) 1 TAB PO BID #60 TAB Prov: 07/12/18 POLYETHYLENE GLYCOL 3350 (MIRALAX) 17 GM PO BEDT BETHANY POLYETHYLENE GLYCOL 3350 (MIRALAX) 17 GM PO BED TIME #30 PACKET Prov: 07/12/18 CEFUROXIME AXETIL (CEFTIN) 500 MG PO BID CEFUROXIME AXETIL (CEFTIN) 500 MG PO BID #14 TA BS Prov: 07/12/18 ACETAMINOPHEN/CODEINE (TYLENOL WITH CODE INE #3 300/30 MG) 1 TAB PO Q6H PRN PRN ABDOMINAL CRAMPS/PAIN ACETAMINOPHEN/CODEINE (TYLENOL WITH CODEINE #3 300/30 MG) 1 TAB PO Q6H PRN PRN ABDOMINAL CRAMPS/PAIN #20 TABS Prov: 07/12/18 ALBUTEROL (PROAIR HFA 90 MCG/ACT) 2 PUFF INH RTQ 6H PRN PRN COUGH/CONGESTION ALBUTEROL (PROAIR HFA 90 MCG/ACT) 2 PUFF INH RT Q6H PRN PRN COUGH/CONGESTION #1 INHALER Prov: 07/12/18 Reported Medications INSULIN DETEMIR (LEVEMIR) 25 UNIT SQ BID Physical Exam Vital Signs Vital Signs Interpretation Diagnostics Lab Results Interpretation Results Patient Discharge Departure Vital Signs/Condition Vital Signs Supervising Physician Note MidLv Saw Pt Alone I was available for consultation as needed at a ll times during the patient's visit in the emergency department. Authenticated by Jo Ann Gongora MD on 0 07/14/18 at 0016 Electronically Signed by Ro Carter o n 07/14/18 at 0302 at 0250 RPT #:[id number] END OF REPORT 2018-07-12 [id number] [facility] 18:19:00-00:[address] [place] [address] PATIENT NAME: MALLORY GOMEZ ADMIT DATE: 07/12/18 ACCOUNT NO: [id number] ROOM NO: [facility] AGE: 27 REPORT TYPE: DISCHARGE SUMMARY SEX: F ADMITTING PHYSICIAN:Maverick Guerra MD ATTENDING PHYSICIAN:Maverick Guerra MD ADMISSION DATE: 07/12/2018 DISCHARGE DATE: 07/12/2018 DISCHARGE INSTRUCTIONS: Follow up with Dr. Eva Sanchez in 1 to 2 weeks. DIET: Healthy heart. Encourage p.o. fluid. Encou rage to increase fiber in diet. ACTIVITY: As tolerated. MEDICATIONS: As in reconciliation form. COURSE IN THE HOSPITAL: A 27-year-old female wit h history of type 1 diabetes, presented to the hospital because of abdominal p ain, nausea, and vomiting. In the Emergency Room, workup done shows presence o f constipation. The patient's urine also shows pyuria. The patient was treated with ceftriaxone, received 2 doses while in the hospital. The patient also given constipation measures. The patient had multiple bowel movements and feels b may. Discharged to home the following day with above instructions. Dictated By: Maverick Guerra MD WT: DS:EDMOND/ANSHU/NTS Conf#: [id number]/DID#: [id number] Authenticated by Maverick Guerra MD On 9 04:57:34 PM at 1657 PATIENT NAME: MALLORY GOMEZ 89 2018-07-12 [facility] 04:53:00-00:00 [facility] ([facility]) DT History Physical REPORT#:[id number] REPORT STATUS: Signed DATE:07/12/18 TIME: 0453 PATIENT: MALLORY GOMEZ UNIT #: [id number] ROOM/BED: [address] : 90 AGE: 27 SEX: F ATTEND: Jose Guerra MD ADM AUTHOR: Blanche Noble MD * ALL edits or amendments must be made on the [employer] document * History Physical History Physical PCP Eva Sanchez Chief complaint Abdominal pain HPI 27-year-old female with history of type I DM pre sented in ER because of abdominal pain and intractable nausea and vomiti ng. Last bowel movement was a day prior to admission. Patient takes tramadol f or pain control. Denied hematuria hematochezia or hematemesis. A bdominal pain is generalized. She also complained of left flank pain. There is a histor y of fall 2 days ago in the shower and she claims she blacked out and since then she has not been feeling well.. She also admits to weakness and dizziness . She documented a temperature of 102. Patient with cough with ches t congestion. No shortness of breath Patient was evaluated in ER, CAT scan re vealed constipation. UA showed pyuria. Past medical history DM 1 GERD Past surgical history Appendectomy and section Allergies Zofran Home Medications Medications have been reviewed and reconciled re viewed and reconciled Social history Occasionally drinks. Occasionally smokes. No ill icit drug use. . 2 children. Family history DM 1 -sisters ROS 14 point ROS done, pertinent findings as mentioned in the HPI, and as follows, the rest of ROS are non-contributory and non per itinent to this admission Constitutional: Patient deniedgeneralized weakness HEENT: Denied headache or dizziness, eye disch arge, change in vision, ear discharge, change in hearing, sore throat, epistaxis. Respiratory: No shortness of breath,,wheezing. Cardiac: Denies chest pain or palpitation. GI: Denied diarrhea or constipation. : Denies dysuria. No hematuria. No flank pain. Musculoskeletal: Denies myalgias, joint swelling. Skin: Denied rash. Endocrinology: Denies significant weight loss,polyuria or polyd ipsia Neurologic: Denies headache, syncope, or seizure. Pertinent findings Laboratory Tests: 07/12 07/12 07/12 07/12 07/12 0708 0622 0210 0209 0209 Chemistry POC Glucose (74 - 106 MG/DL) 68 L 71 L POC Lactic Acid (0.7 - 2.0 mmol/L) 0.98 Toxicology Salicylates (mg/dL) < 1.0 Urine Opiates Screen (NEGATIVE) NEGATIVE Acetaminophen (10 - 30 ug/mL) <10 L Ur Barbiturates, Qual (NEGATIVE) NEGATIVE Ur Tricyclics Screen (NEG) NEGATIVE Ur Phencyclidine Scrn (NEGATIVE) NEGATIVE Ur Amphetamines Screen (NEGATIVE) NEGATIVE U Benzodiazepines Scrn (NEGATIVE) POSITIVE Urine Cocaine Screen (NEGATIVE) NEGATIVE Urine Cannabinoids (NEGATIVE) NEGATIVE Ethyl Alcohol (<10 mg/dL) < 10 07/12 07/12 07/12 07/11 07/11 0203 0152 0047 2505 2342 Chemistry POC Glucose (74 - 106 MG/DL) 71 L 83 POC Lactic Acid (0.7 - 2.0 mmol/L) 4.54 *H Rapid Troponin I (0.00 - 0.079 ng/mL) 0.00 Beta HCG, Quant (0 - 4.9 IU/L) <5.0 07/118 2326 Blood Gas Puncture Site R Rad ABG pH (7.35 - 7.45) 7.410 ABG pCO2 (35 - 45 mmHg) 32.8 L ABG pO2 (80 - 90 mmHg) 108 H ABG HCO3 (22.0 - 24.0 mmol/L) 20.8 L ABG Base Excess (-2.0 - 2.0 mmol/L) -4 L Satinder Test Pass Cord O2 Saturation (95 - 98 %) 98 O2 Delivery Device Room Air Chemistry Procalcitonin (NG/ML) 0.47 Urines Urine HCG, Qual (NEGATIVE) NEGATIVE 07/11 2313 Chemistry Sodium (137 - 145 mmol/L) 138 Potassium (3.4 - 5.0 mmol/L) 5.7 H Chloride (98 - 107 mmol/L) 100 Carbon Dioxide (22 - 30 mmol/L) 23 BUN (7 - 17 mg/dL) 15 Creatinine (0.5 - 1.0 mg/dL) 0.7 Glomerular Filtr Rate (>60) >=60 max estimate Glucose (74 - 106 mg/dL) 419 *H POC Glucose (74 - 106 MG/DL) 530 *H Calcium (8.4 - 10.2 mg/dL) 9.7 Phosphorus (2.5 - 4.5 mg/dL) 3.7 Magnesium (1.6 - 2.3 mg/dL) 1.8 Total Bilirubin (0.2 - 1.3 mg/dL) 0.8 Conjugated Bilirubin (0 - 0.3 mg/dL) 0 Unconjugated Bilirubin (0 - 1.1 mg/dL) 0.1 AST (15 - 46 U/L) 38 ALT (13 - 69 U/L) 21 Total Alk Phosphatase (38 - 126 U/L) 74 Total Protein (6.3 - 8.2 g/dL) 8.0 Albumin (3.5 - 5.0 g/dL) 4.8 Lipase (23 - 300 U/L) 202 Toxicology Acetone, Qual (NEGATIVE) NOT APPLICABLE Urines Urine Color (Yellow) Yellow Urine Appearance (Clear) Clear Urine pH (5.0 - 8.0) 7.0 Ur Specific [place] (<1.030) 1.041 H Urine Protein (Negative mg/dL) NEGATIVE Urine Glucose (UA) (Negative) >=500 (3+) H Urine Ketones (Negative mg/dL) Negative Urine Blood (Negative) Negative Urine Nitrite (Negative) Negative Urine Bilirubin (Negative) Negative Urine Urobilinogen (Negative mg/dL) Negative Ur Leukocyte Esterase (Negative) TRACE H Urine RBC (<4 - 5 /HPF) 0-3 Urine WBC (<4 - 5 /HPF) 6-10 H Ur Squamous Epith Cells (0 - 5 (RARE) /HPF) 0-5 (RARE) Urine Bacteria (None - Rare /HPF) Rare Microbiology: Date/Time Procedure - Status Source Growth 07/11 2337 Blood Culture - RECD BLOOD 07/11 2337 Blood Culture - RECD BLOOD 07/11 2328 Blood Culture - ORD BLOOD 07/11 2328 Blood Culture - ORD BLOOD Recent Impressions: CAT SCAN - CT HEAD/BRAIN W/O CONT 07/11 2345 Report Impression - Status: SIGNED Entered: 07/12/2018 0009 Impression: No acute intracranial abnormality. Impression By: Rafal Chaparro RADIOLOGY - XR CHEST 1 V 07/11 2346 Report Impression - Status: SIGNED Entered: 07/12/2018 0009 IMPRESSION: Unremarkable radiographic study of the chest. Impression By: Noam - Alice Ortiz RADIOLOGY - XR ABDOMEN 1 V 07/12 0040 Report Impression - Status: SIGNED Entered: 07/12/2018 0112 IMPRESSION: Radiographic findings consistent with constipati on. Otherwise unremarkable exam demonstrating a nonobstructive bowel gas pattern. Impression By: [email or web address] Glenna Evans MD CAT SCAN - CT ABD PELVIS W/CONT 07/12 0208 Report Impression - Status: SIGNED Entered: 07/12/2018 0249 IMPRESSION: No significant abnormalities demonstrated. Impression By: [email or web address] - Benjamin Machuca MD ECG NSR 97; NO STEMI Rate 97 Physical examination Vital Signs: Date Time Temp Pulse Resp B/P B/P Pulse O2 O2 F low FiO2 Mean Ox Delivery Rate 07/12 0717 98.2 83 14 95/63 73.8 100 Room air 07/12 0535 98.1 89 14 97/65 76.0 100 Room air 07/12 0454 90 16 108/70 82 99 Room air 07/12 0422 100 16 115/70 85 97 Room air 07/12 0016 96 16 129/64 85 98 Room air 07/11 2314 98.7 96 16 123/74 90 100 Room air General: Patient is awake and alert not in respiratory di stress HEENT: Head is normocephalic and atraumatic EOM is inta ct no periorbital edema no disconjugate eye movement. Normal external ear a nd naris. Midline tongue. Moist buccal mucosa. Neck: Neck is supple, no thyromegaly, range of motion is intact Chest and lungs: Breath sounds symmetric and clear, no intercosta l retraction CVS: Regular rhythm. No thrill. Palpable radial pulse . Abdomen: soft, mild diffuse tenderness. NABS Extremities: No edema or cyanosis, or gangrene both lower ext remities Neuro: Patient is awake and alert o riented. Nonfocal motor, sensory, and cranial nerve function, speech is clear Psych: Appropriate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 subtalar joint are unremarkable. The talar dome is normal. There is no soft tissue swel ling. There are no radiopaque foreign bodies. There is no soft tissue gas or osseous erosive changes noted. If there is further concern, recommend follow-up radiographs or bone scan for complete assessment. IMPRESSION: No fractures or dislocation of the left foot. SL: 2014-12-20 Name: MALLORY GOMEZ [facility] 10:30:00-00:00 : 1990 Ordering Physician: Dax Valladares Stomach emptying NM : Dec 19, 2014 07:59:00 PM. CLINICAL INDICATION: Burning sensation Comparison Examination: None. FINDINGS: A gastric emptying study is performed using 1 mCi of technetium 99m sulfur colloid mixed with food. There is normal gastric empt taylor noted. The T-1/2 is extrapolated at 564 minutes (normal for solids < 90 minutes). There is progression of the radiotracer into bowel. IMPRESSION: 1. Delayed gastric emptying study. SL: 2014-12-19 Name: MALLORY GOMEZ [facility] 17:35:00-00:00 : 1990 SEX: F Ordering Physician: Maverick Vega ED Abdomen/Pelvis IV contrast only CT : Dec 19, 2014 05:56:00 PM. CLINICAL INDICATION: Abdominal pain, acute Comparison Examination: September 04, 2014 TECHNIQUE: Sequential trans-axial image s of the abdomen and pelvis were obtained with a multi-detector helical CT. Coronal and sagittal reconstructions were obtained. Contrast: 100 cc of intravenous Omnipaque Dose: The total exam DLP is 634 mGy-cm. FINDINGS: CT ABDOMEN WITH CONTRAST: Visualized portions of the h eart are within normal limits. Lung bases are clear. The liver, spleen, pancreas, gallbladder, adrena ls and kidneys are normal. The contrast opacified loops of small bowel and partially contrast opacified loops of colon in the abdomen and pelvis are unremarkable. The appendix is not identified. There is no abdominal lymphadenopathy, pneumoper itoneum or ascites. No aortic aneurysm is present. The infer ior vena cava is within normal limits. FINDINGS: CT PELVIS WITH CONTRAST: There is a persistent leftwa rd orientation of the intrauterine device at the lower uterine segment. A dominant left ovarian foll icle is present, and minimal pelvic peritoneal fluid. The bladder is within normal limits. Minimal pelvic peritoneal fluid is likely physio logic. No acute skeletal abnormality. IMPRESSION: 1. Persistent abnormal posit ion of the intrauterine device in the lower uterine segment. NE - 23 2014-12-19 Name: MALLORY GOMEZ [facility] 16:00:00-00:00 : 1990 Ordering Physician: Maverick Vega Chest 1view : Dec 19, 2014 03:21:00 PM. CLINICAL INDICATION: Dizziness Comparison Examination: 09/06/2014. FINDINGS: Single view of the chest is submitted for interpretation. The lungs are clear and ther e are no effusions. There is no visible pneumothorax. Cardiomediastinal contours are stable. Bony stru ctures are unremarkable. IMPRESSION: 1. No radiographic evidence of acute cardiopulmo nary process. SL: 2014-10-10 Name: MALLORY GOMEZ [facility] 16:40:00-00:00 : 1990 SEX: F Ordering Physician: Angelina Edwards Abdomen RUQ US : October 10, 2014 05:02:00 PM. CLINICAL INDICATION: Acute abdominal pain Comparison Examination: CT abdomen pelvis 015 TECHNIQUE: Multiple grayscal e and color Doppler ultrasound images of the RUQ abdomen were obtained. FINDINGS: Liver demonstrates increased echogenicity without masses. Right hepatic lobe measures 16 cm at the midclavicular line. Main portal vein is 8 mm in diameter with hepatopetal flow. Gallbladder normal without g allstones. Gallbladder wall thickness is 2.5 mm. No sonographic Devi's sign or pericholecystic fluid. Visualized portions of the i ntrahepatic biliary tree are of normal caliber. Common duct is 2 mm. Pancreas is normal. Right kidney is normal in si ze, shape, and echotexture without masses or hydronephrosis. Right kidney measures 10.5 x 5 x 4 cm. Abdominal aorta is of normal caliber. Inferior v jose cava is patent. IMPRESSION: Questionable mild steatosis of the liver SL: 2014-09-06 NAME: MALLORY GOMEZ [facility] 16:00:00-00:00 : 1990 SEX: F Ordering Physician: Maverick Guerra Abdomen complete US : Sep 06, 2014 10:10:00 AM. CLINICAL INDICATION: Abnormal Lab tests- LFT. Comparison Examination: CT abdomen and pelvis da owen September 04, 2014. Technique: Grayscale and stokes ited color sonographic evaluation of the abdomen was performed with standard technique. Sonographic images were saved on PACS. FINDINGS: There is normal li byron contour and morphology with normal parenchymal echo texture. The portal vein diameter is 12 mm. There is no intrahepatic biliary ductal dilatation. The gallbladder is mildly di stended. There are no definite gallstones or gallbladder sludge. There is mild to moderate gallbladder wall thickening. There is no pericholecystic fluid. Recommend correlati on with clinical findings of hepatitis or other inflammatory process. Hepatobiliary scan may be performed for further evaluation if there is clinical concern for acalculus cholecystitis. The extrahepatic bile duct/c ommon bile/hepatic duct measures 2.5 mm in diameter at the chen hepatis. There are no definite ductal stones or ductal wall thickening. The distal common bile duct is not well seen. The right kidney measures 10 .8 cm in length and the left kidney measures 11 cm in length. There is normal renal contour and morphology, with normal parenchymal echotexture. There is mild right pelvicaliectasis. There is no left hydronephrosis. The visualized pancreas appears unremarkable. Th e spleen is unremarkable. Small amount of free fluid is seen in Morison's pouch region. The visualized abdominal aor ta is unremarkable. The inferior vena cava is not well seen due to bowel gas. IMPRESSION: 1. No definite gallstones or gallbladder sludge. Mild to moderate gallbladder wall thickening. No pericholecystic fluid. Recommend correlation with clinical findings of hepatitis or other inflammatory p rocess. Hepatobiliary scan m ay be performed for further evaluation if there is clinical concern for acalculus cholecystitis. No biliary ductal dilatation. 2. Small amount of free fluid in Morison's pouch . 3. Mild right pelvicaliectasis. SL: 24 2014-09-06 NAME: MALLORY GOMEZ [facility] 04:12:00-00:00 : 1990 SEX: F Ordering Physician: Maverick Guerra Chest 1view : Sep 06, 2014 05:27:00 AM. CLINICAL INDICATION: Cough and fever. Comparison Examination: 09/04/2014. FINDINGS: Single AP view of the chest is submitted for int erpretation. The lungs are clear. Pulmonary vasculature is wi thin normal limits. Possible development of small left pleural effus ion. No pneumothorax.. Cardiac and mediastinal contours are within norm al limits. Bony structures demonstrate no acute process. IMPRESSION: 1. Possible development of small left pleural ef fusion. 2. Otherwise unchanged exam since 09/04/2014. SL: 2014-09-04 Name: MALLORY GOMEZ [facility] 21:20:00-00:00 : 1990 Ordering Physician: Maverick Guerra Chest 1view : Sep 04, 2014 10:34:00 PM. CLINICAL INDICATION: Coughing Comparison Examination: 09/04/2014. FINDINGS: A single view of t he chest is submitted. The pulmonary vasculature is within normal limits. The lung zones are clear. There is no pleural effusion or pneumothorax. Cardiomediastinal contours are stable. Bony stru ctures are unremarkable. IMPRESSION: 1. No radiographic evidence of acute cardiopulmo nary process. SL: 2014-09-04 Name: MALLORY GOMEZ [facility] 15:30:00-00:00 : 1990 SEX: F Ordering Physician: Timothy Morales ED Abdomen/Pelvis IV contrast only CT : Sep 04, 2014 03:51:00 PM. CLINICAL INDICATION: Abdominal pain, acute Comparison Examination: None TECHNIQUE: Sequential trans-axial image s of the abdomen and pelvis were obtained with a multi-detector helical CT. Coronal and sagittal reconstructions were obtained. Contrast: 100 cc of intravenous Omnipaque Dose: The total exam DLP is 840 mGy-cm. FINDINGS: CT ABDOMEN WITH CONTRAST: Visualized portions of the h eart are within normal limits. Lung bases are clear. The liver, spleen, pancreas, gallbladder, adrena ls and kidneys are normal. The contrast opacified loops of small bowel and partially contrast opacified loops of colon in the abdomen and pelvis are unremarkable. The appendix is not identified. There is no abdominal lymphadenopathy, pneumoper itoneum or ascites. No aortic aneurysm is present. The infer ior vena cava is within normal limits. FINDINGS: CT PELVIS WITH CONTRAST: There is a persistent leftwa rd orientation of the intrauterine device at the lower uterine segment. The bladder is within normal limits. Minimal pelvic peritoneal fluid is likely physio logic. No acute skeletal abnormality. IMPRESSION: 1. Apparent abnormal positio n of the intrauterine device in the lower uterine segment. NE - 2014-09-04 NAME: MALLORY GOMEZ [facility] 12:45:00-00:00 : 1990 SEX: F Ordering Physician: Timothy Morales Ribs unilateral 3 views with PA chest : Sep 04, 2014 01:03:00 PM. CLINICAL INDICATION: Pain from a fall / See Clin ic Indication Comparison Examination: None. FINDINGS: A total of 2 views of the right ribs and frontal radiograph of the chest are submitted for interpretation. There are no displaced rib f ractures noted. The costovertebral junctions are unremarkable. There are no associated pleu ral effusions or pneumothorax. There are no underlying pulmonary contusions noted. If there is further concern, followup radiographs or bone scan may be performed for complete assessment. IMPRESSION: 1. Unremarkable right rib series. SL: 24 2014-02-22 - US BREAST UNI MA/[facility] Outpat ient 14:50:22-00:00 ULTRASOUND OF LEFT BREAST: 02/22/2014 [facility] CLINICAL: Breast Mass. No prior exams were available for comparison. Color flow and real-time ultrasound of the left breast were performed. No abnormalities were seen s onographically in the left breast. No solid suspicious mass is noted. IMPRESSION: BENIGN There is no sonographic evidence of malignancy. There is no sonographic abno rmality seen in the left breast to correspond with the pain, however clinical correlation is recommended. There is no sonographic abnormality seen in the left breast to corre spond with the non-bloody di scharge from the nipple, however clinical correlation is recommended. Follow-up with ACR/ACS guidelines. SUMMARY: These findings were discussed with the patient a t the time of examination. Carlos valle/zabrina:02/22/2014 15:20:35 Drainman: Mariam Roy [facility] This exam was dictated and i nterpreted by [id number] for [facility]. letter sent: Benign Left Ultrasound BI-RADS: 2 Benign 2014-01-24 NAME: MALLORY GOMEZ [facility] 06:55:00-00:00 : 1990 SEX: F Ordering Physician: Rashard Concepcion Abdomen 2 views : Jan 24, 2014 07:21:00 AM. CLINICAL INDICATION: Abdominal distension. Comparison Examination: None. FINDINGS: The 2 views of the abdomen show a non-obstructive bowel gas pattern. Some gas and fecal material is seen in the ascending and transverse colon, suggestive of mild constipation. There is no abn ormal dilatation of bowel lo ops. There is no pneumoperitoneum, pneumatosis, or mass effect. Small metallic umbilical rin g is seen. Intrauterine device is seen in the pelvis. There are no clinically significant osseous abnormalities noted. OPINION: 1. Nonobstructive bowel gas pattern. Mild consti pation. SL: 24
[2023-01-10 17:05] LABS: Albumin 3.7 g/dL (3.4-5.0); Bilirubin Total 0.3 mg/dL (0.2-1.0); Potassium 4.4 mEq/L (3.5-5.1); Protein, Total 7.3 g/dL (6.4-8.2)
--- NOTE | 2023-01-10 17:48 | RAD REPORT ---
EXAM DESCRIPTION: CTStone Protocol - 01/10/2023 5:35 pm CLINICAL HISTORY: Constipation;Pain COMPARISON: Abdomen Pelvis W Contrast dated 11/19/2021; Abdomen Pelvis W Contrast dated 09/04/2021 TECHNIQUE: CT of the abdomen and pelvis was performed. All CT scans are performed using dose optimization technique as appropriate and may include automated exposure control or mA/KV adjustment according to patient size. FINDINGS: Lower chest: No acute abnormality. Circumferential thickened distal esophagus. This likely reflects esophagitis. Liver: No acute abnormality or suspicious lesions. Biliary: Cholecystectomy. Stomach: Gastric stimulator . Duodenum: No significant focal abnormality. Pancreas: No significant abnormality. Spleen: No significant abnormality. Adrenal: No suspicious lesions. Kidney/ureter: No hydronephrosis. No renal calculi. Retroperitoneum: No retroperitoneal adenopathy. Vascular: No aneurysm. Bowel: No significant focal abnormality. Appendectomy. Moderate stool . Peritoneum: No ascites or free air. Bladder: Grossly unremarkable. Reproductive: No adnexal masses. Bones: No acute fracture. Other: n/a IMPRESSION: No acute intra-abdominal or pelvic finding. Appendectomy.
--- NOTE | 2023-01-10 17:59 | EDPHYS ---
Physician Documentation [facility] Name: Mallory Gomez Age: 32 yrs Sex: Female : 1990 Arrival Date: 01/10/2023 Time: 16:00 Bed 5 Private MD: ED Physician David Deleon HPI: 01/10 16:16 This 32 yrs old Female presents to ER via Ambulatory with complaints of Abdominal Pain, snw Abdominal Swelling. 16:16 The patient presents with abdominal pain abdominal distention. Onset: The snw symptoms/episode began/occurred acutely. The symptoms radiate to back. Associated signs and symptoms: Pertinent positives: back pressure. The symptoms are described as pressure. Severity of pain: At its worst the pain was moderate. It is unknown whether or not the patient has had similar symptoms in the past. The patient has not recently seen a physician. denies fever, n/v/d, ill contacts. Historical: - Allergies: 16:11 Humalog; jl7 16:11 Ibuprofen; jl7 16:11 PENICILLINS; jl7 16:11 Tramadol HCl; jl7 16:11 Zofran; jl7 - Home Meds: 16:11 Novolog U-100 Insulin aspart 100 unit/mL Sub-Q soln [Active]; hydrocodone-acetaminophen jl7 10-325 mg Oral tab 1 tab as needed [Active]; gabapentin 300 mg Oral tab as needed [Active]; - PMHx: 16:11 diabetes mellitus; jl7 - PSHx: 16:11 Appendectomy; section; Cholecystectomy; Gastric Pacemaker; jl7 - Immunization history:: Adult Immunizations unknown. - Social history:: Smoking status: Patient denies any tobacco usage or history of. ROS: 16:15 Eyes: Negative for injury, pain, redness, and discharge, ENT: Negative for injury, snw pain, and discharge, Neck: Negative for injury, pain, and swelling, Cardiovascular: Negative for chest pain, palpitations, and edema, Respiratory: Negative for shortness of breath, cough, wheezing, and pleuritic chest pain. 16:15 : Negative for injury, bleeding, discharge, and swelling, MS/Extremity: Negative for injury and deformity, Skin: Negative for injury, rash, and discoloration, Neuro: Negative for headache, weakness, numbness, tingling, and seizure, Psych: Negative for depression, anxiety, suicide ideation, homicidal ideation, and hallucinations. 16:15 Constitutional: Positive for body aches, malaise, poor PO intake. 16:15 Abdomen/GI: Positive for abdominal pain, abdominal distension. 16:15 Back: Positive for pain at rest, pressure with supine position. Exam: 16:13 Constitutional: This is a well developed, well nourished patient who is awake, alert, snw and in no acute distress. Head/Face: Normocephalic, atraumatic. Eyes: Pupils equal round and reactive to light, extra-ocular motions intact. Lids and lashes normal. Conjunctiva and sclera are non-icteric and not injected. Cornea within normal limits. Periorbital areas with no swelling, redness, or edema. ENT: Nares patent. No nasal discharge, no septal abnormalities noted. Tympanic membranes are normal and external auditory canals are clear. Oropharynx with no redness, swelling, or masses, exudates, or evidence of obstruction, uvula midline. Mucous membranes moist. Neck: Trachea midline, no thyromegaly or masses palpated, and no cervical lymphadenopathy. Supple, full range of motion without nuchal rigidity, or vertebral point tenderness. No Meningismus. Chest/axilla: Normal chest wall appearance and motion. Nontender with no deformity. No lesions are appreciated. Cardiovascular: Regular rate and rhythm with a normal S1 and S2. No gallops, murmurs, or rubs. Normal PMI, no JVD. No pulse deficits. Respiratory: Lungs have equal breath sounds bilaterally, clear to auscultation and percussion. No rales, rhonchi or wheezes noted. No increased work of breathing, no retractions or nasal flaring. Back: No spinal tenderness. No costovertebral tenderness. Full range of motion. Skin: Warm, dry with normal turgor. Normal color with no rashes, no lesions, and no evidence of cellulitis. MS/ Extremity: Pulses equal, no cyanosis. Neurovascular intact. Full, normal range of motion. Neuro: Awake and alert, GCS 15, oriented to person, place, time, and situation. Cranial nerves II-XII grossly intact. Motor strength 5/5 in all extremities. Sensory grossly intact. Cerebellar exam normal. Normal gait. Psych: Awake, alert, with orientation to person, place and time. Behavior, mood, and affect are within normal limits. 16:13 Abdomen/GI: Inspection: distension, that is mild, Bowel sounds: diminished, Palpation: mild abdominal tenderness, in the left lower quadrant. Vital Signs: 16:09 BP 118 / 64; Pulse 82; Resp 17; Temp 97.6; Pulse Ox 100% ; Weight 78.47 kg; Height 5 jl7 ft. 6 in. ; Pain 4/10; 16:40 BP 108 / 66; Pulse 75; Resp 18; Pulse Ox 98% on R/A; ld1 17:25 BP 105 / 66; Pulse 63; Resp 18; Pulse Ox 98% on R/A; ld1 16:09 Body Mass Index 27.92 (78.47 kg, 167.64 cm) [facility] 16:09 Pain Scale: Adult jl7 MDM: 16:07 Patient medically screened. snw 17:59 Differential diagnosis: bowel obstruction, diverticulitis, gastritis, non-specific abd snw pain. Data reviewed: vital signs, nurses notes, lab test result(s), radiologic studies. I considered the following discharge prescriptions or medication management in the emergency department Medications were administered in the Emergency Department. See MAR. Counseling: I had a detailed discussion with the patient and/or guardian regarding the historical points, exam findings, and any diagnostic results supporting the discharge/admit diagnosis, lab results, radiology results, the need for outpatient follow up, for definitive care, to return to the emergency department if symptoms worsen or persist or if there are any questions or concerns that arise at home. Special discussion: Based on the patient's Hx, exam, and Dx evaluation, there is no indication for emergent surgery or inpatient Tx. It is understood by the patient/guardian that if the Sx's persist or worsen they need to return immediately for re-evaluation. Based on the history and exam findings, there is no indication for further emergent testing or inpatient evaluation. I discussed with the patient/guardian the need to see the primary care provider for further evaluation of the symptoms. 01/10 16:13 Order name: CBC with Diff; Complete Time: 17:03 snw 01/10 16:13 Order name: CMP; Complete Time: 17:38 snw 01/10 16:13 Order name: Lipase; Complete Time: 17:38 snw 01/10 16:13 Order name: Test, Urine; Complete Time: 17:03 snw 01/10 16:13 Order name: Urinalysis w/ reflexes; Complete Time: 17:03 snw 01/10 16:13 Order name: Lactate w/ 2H reflex if indic.; Complete Time: 17:38 snw 01/10 16:13 Order name: Urine Sodium Random; Complete Time: 16:50 snw 01/10 16:13 Order name: CT Stone Protocol; Complete Time: 17:49 snw 01/10 16:13 Order name: IV Saline Lock; Complete Time: 16:40 snw 01/10 16:13 Order name: Labs collected and sent; Complete Time: 16:40 snw Administered Medications: 16:39 Drug: NS 0.9% IV 1000 ml Route: IV; Rate: 125 ml/hr; Site: right antecubital; ld1 17:58 Drug: Haloperidol IVP 2.5 mg/50 mL 2.5 mg Route: IVP; Site: right antecubital; ld1 18:15 Drug: Bisacodyl PO 10 mg Route: PO; ld1 18:15 Drug: Bisacodyl ME Suppository 10 mg Route: ME; ld1 Disposition Summary: 01/10/23 17:58 Discharge Ordered Location: Home snw Condition: Stable snw Diagnosis - Constipation snw - Abdominal pain, Generalized snw - Esophagitis, unspecified snw Followup: snw - With: Emergency Department - When: As needed - Reason: Worsening of condition Followup: snw - With: Private Physician - When: 2 - 3 days - Reason: Recheck today's complaints, Continuance of care, Re-evaluation by your physician Discharge Instructions: - Discharge Summary Sheet snw - Abdominal Pain, Adult snw - Constipation, Adult snw - Esophagitis snw Forms: - Medication Reconciliation Form snw - Thank You Letter snw - Antibiotic Education snw - Prescription Opioid Use snw - Patient Portal Instructions snw - Leadership Thank You Letter snw Prescriptions: - Miralax 17 gram Oral powder in packet - take 1 packet by ORAL route daily as needed for constipation; 1 Unspecified; snw Refills: 0, Product Selection Permitted - Carafate 1 gram Oral Tablet - take 1 tablet by ORAL route 4 times per day take on an empty stomach, beginning snw on waking and last dose at bedtime; 100 tablet; Refills: 0, Product Selection Permitted Signatures: Dispatcher [employer] EDMS Yazmin Albarado, LASER BEAM COLOR SCANNER OPERATOR-C LASER BEAM COLOR SCANNER OPERATOR-Csnw Santiago Merrill, RN RN jl7 Shasta Keane RN RN ld1
--- NOTE | 2023-01-10 17:59 | ER ---
Nurse's Notes [facility] Name: Mallory Gomez Age: 32 yrs Sex: Female : 1990 Arrival Date: 01/10/2023 Time: 16:00 Bed 5 Private MD: Diagnosis: Constipation;Abdominal pain, Generalized;Esophagitis, unspecified Presentation: 01/10 16:09 Chief complaint: Patient states: Abdominal swelling, water retention, denies N/V/D. jl7 Coronavirus screen: At this time, the client does not indicate any symptoms associated with coronavirus-19. Ebola Screen: No symptoms or risks identified at this time. Initial Sepsis Screen: Does the patient meet any 2 criteria? No. Patient's initial sepsis screen is negative. Does the patient have a suspected source of infection? No. Patient's initial sepsis screen is negative. Risk Assessment: Do you want to hurt yourself or someone else? Patient reports no desire to harm self or others. Onset of symptoms was January 10, 2023. Care prior to arrival: None. 16:09 Method Of Arrival: Ambulatory jl7 16:09 Acuity: YESICA 3 jl7 Triage Assessment: 16:11 General: Appears in no apparent distress. uncomfortable, Behavior is cooperative, jl7 anxious. Pain: Complains of pain in abdomen Pain currently is 4 out of 10 on a pain scale. GI: Abdomen is round. Historical: - Allergies: 16:11 Humalog; jl7 16:11 Ibuprofen; jl7 16:11 PENICILLINS; jl7 16:11 Tramadol HCl; jl7 16:11 Zofran; jl7 - Home Meds: 16:11 Novolog U-100 Insulin aspart 100 unit/mL Sub-Q soln [Active]; hydrocodone-acetaminophen jl7 10-325 mg Oral tab 1 tab as needed [Active]; gabapentin 300 mg Oral tab as needed [Active]; - PMHx: 16:11 diabetes mellitus; jl7 - PSHx: 16:11 Appendectomy; section; Cholecystectomy; Gastric Pacemaker; jl7 - Immunization history:: Adult Immunizations unknown. - Social history:: Smoking status: Patient denies any tobacco usage or history of. Screenin:40 [facility] ED Fall Risk Assessment (Adult) History of falling in the last 3 months, ld1 including since admission No falls in past 3 months (0 pts). Abuse screen: Denies threats or abuse. Denies injuries from another. Nutritional screening: No deficits noted. Tuberculosis screening: No symptoms or risk factors identified. Assessment: 16:40 General: Appears in no apparent distress. comfortable, Behavior is calm, cooperative, ld1 appropriate for age. Pain: Denies pain. Neuro: Level of Consciousness is awake, alert, obeys commands, Oriented to person, place, time, situation. Cardiovascular: Capillary refill < 3 seconds Patient's skin is warm and dry. Respiratory: Airway is patent Respiratory effort is even, unlabored. GI: Abdomen is round distended, Bowel sounds present X 4 quads. Abd is soft Abdomen is tender to palpation. : No signs and/or symptoms were reported regarding the genitourinary system. EENT: No signs and/or symptoms were reported regarding the EENT system. Derm: No signs and/or symptoms reported regarding the dermatologic system. Musculoskeletal: No signs and/or symptoms reported regarding the musculoskeletal system. 17:25 Reassessment: Patient appears in no apparent distress at this time. No changes from ld1 previously documented assessment. Patient and/or family updated on plan of care and expected duration. Pain level reassessed. Patient is alert, oriented x 3, equal unlabored respirations, skin warm/dry/pink. Vital Signs: 16:09 BP 118 / 64; Pulse 82; Resp 17; Temp 97.6; Pulse Ox 100% ; Weight 78.47 kg; Height 5 jl7 ft. 6 in. ; Pain 4/10; 16:40 BP 108 / 66; Pulse 75; Resp 18; Pulse Ox 98% on R/A; ld1 17:25 BP 105 / 66; Pulse 63; Resp 18; Pulse Ox 98% on R/A; ld1 16:09 Body Mass Index 27.92 (78.47 kg, 167.64 cm) jl7 16:09 Pain Scale: Adult jl7 ED Course: 16:01 Patient arrived in ED. rg4 16:06 Yazmin Albarado FNP-C is PHCP. snw 16:06 David Deleon MD is Attending Physician. snw 16:11 Triage completed. jl7 16:11 Arm band placed on right wrist. jl7 16:39 Shasta Keane, YVETTE is Primary Nurse. ld1 16:39 Urine Sodium Random Sent. ld1 16:39 Lactate w/ 2H reflex if indic. Sent. ld1 16:39 CBC with Diff Sent. ld1 16:39 CMP Sent. ld1 16:39 Lipase Sent. ld1 16:40 Patient has correct armband on for positive identification. Placed in gown. Bed in low ld1 position. Call light in reach. Side rails up X2. monitor car operator on. Pulse ox on. NIBP on. Door closed. Noise minimized. Warm blanket given. 16:40 Test, Urine Sent. ld1 16:40 Urinalysis w/ reflexes Sent. ld1 16:40 No provider procedures requiring assistance completed. Inserted saline lock: 20 gauge ld1 in right antecubital area, using aseptic technique. Blood collected. 17:36 CT Stone Protocol In Process Unspecified. EDMS 18:16 IV discontinued, intact, bleeding controlled, No redness/swelling at site. ld1 Administered Medications: 16:39 Drug: NS 0.9% IV 1000 ml Route: IV; Rate: 125 ml/hr; Site: right antecubital; ld1 17:58 Drug: Haloperidol IVP 2.5 mg/50 mL 2.5 mg Route: IVP; Site: right antecubital; ld1 18:15 Drug: Bisacodyl PO 10 mg Route: PO; ld1 18:15 Drug: Bisacodyl IN Suppository 10 mg Route: IN; ld1 Medication: 16:40 VIS not applicable for this client. ld1 Outcome: 17:58 Discharge ordered by . pauly 18:16 Discharged to home ambulatory. ld1 18:16 Condition: stable 18:16 Discharge instructions given to patient, Instructed on discharge instructions, follow up and referral plans. Demonstrated understanding of instructions, follow-up care. 18:16 Patient left the ED. ld1 Signatures: Dispatcher [employer] EDMS Yazmin Albarado, FUR FLOOR WORKER-C FUR FLOOR WORKER-Rita [employer] rg4 Santiago Merrill RN RN jl7 Shasta Keane RN RN ld1
[2023-01-10] MEDS ORDERED: HALOPERIDOL LACT 5 MG/ML INJ ONE (18:04)
[2023-01-10] MEDS ORDERED: NA CHLORIDE 0.9% 50 ML ONE (18:05)
[2023-01-10] MEDS ORDERED: BISACODYL 10 MG RECTAL SUPP ONE (18:13)
[2023-01-10 18:58] VITALS: TEMP 97.6
[2023-01-10 18:59] VITALS: O2SAT 98
[2023-01-10 19:00] VITALS: BP 105/66
== END 2023-01-10 18:16 | disposition home or self-care (01) ==
LOC: ER 16:00
DX: K59.00 Constipation, unspecified (principal); K20.90 Esophagitis, unspecified without bleeding; E11.9 Type 2 diabetes mellitus without complications; Z79.4 Long term (current) use of insulin; Z88.0 Allergy status to penicillin; Z88.5 Allergy status to narcotic agent; Z88.6 Allergy status to analgesic agent; Z88.8 Allergy status to other drugs, medicaments and biological substances
CPT/HCPCS: 85025; 36415; 81025; 84300; 83605; 81003; 83690; 80053; 76377; 74176; 96374; 99285; J1630; J7030